=== PATIENT | female | born 1970 | race Caucasian/White ===

== ENCOUNTER → 2016-09-07 | Outpatient (CLI) | payer OTHER ==
[2016-09-07 11:28] LABS: Blood Urea Nitrogen 6 mg/dL (7-17); Non-African American GFR(MDRD) >60 (>60 ml/min/1.73 sqM)
--- NOTE | 2016-09-07 14:02 | MR ---
MR lumbar spine wo/w con Degenerative disc disease, lumber region MultiHance Multiplanar, multiecho imaging of the lumbar spine was obtained without contrast on a 3 Matilde magnet. REFERENCE:None. FINDINGS: There is follicular change within the ovaries. Paraspinal soft tissues are normal. Vertebral body height and alignment are maintained. No fractures are seen. There are 6 lumbar type ve rtebral. For the sake of this examination the sixth verbal be called S1. Cord signal is maintained. The conus ends normally at the level of the mid body of L2. At T12-L1, no abnormality is seen. At L1-2, there is mild capsulitis within the facets. At L2-3, there is mild hypertrophic change and capsulitis within the facets. At L3-4, there is mild disc space loss. The intervertebral foramina are widely maintained. There is n o significant compressive discopathy. There is mild hypertrophic change and capsulitis within the fac ets. At L4-5, there is disc space loss. The intervertebral foramina are well maintained. There is no signi ficant compressive discopathy. There is mild hypertrophic change and capsulitis within the facets. At L5-S1, there is mild hypertrophic change and capsulitis within the facets. IMPRESSION: 1. MILD, DIFFUSE FACET ARTHROPATHY. 2. DEGENERATIVE DISC DISEASE, MOST MARKED AT L3-4 AND L4-5. 3. NO SIGNIFICANT COMPRESSIVE DISCOPATHY OR NEURAL COMPRESSION.
== END | disposition home or self-care (01) ==
LOC: RADMRIMAIN 11:00
PROVIDERS: ATTEND Family Medicine Addiction Medicine
DX: M51.36 Other intervertebral disc degeneration, lumbar region (principal); M46.86 Other specified inflammatory spondylopathies, lumbar region
CPT/HCPCS: 82565; 84520; 72158; A9577

== ENCOUNTER → 2016-09-08 | Outpatient (CLI) | payer OTHER ==
[2016-09-08 13:25] VITALS: BP 141/98; RESP 16; TEMP 98.1
--- NOTE | 2016-09-09 07:07 | P.CONS ---
History of Present Illness - Reason for Consult Consult date: 09/08/16 - History of Present Illness This is the initial consultation visit for this 46 years, old female, with a chronic history of severe low back pain, she reported that the pain started more than 6 months ago and intensity of the pain increased over time, pain is constant and radiating to the lower extremitymostly to the posterior lateral aspect of the lower extremity, he had no history of trauma or heavy lifting, she denies any change in bowel movement or urination, no fever or night sweats, intensity of the pain interfering with her quality of life and in her ability to function and do activities of daily livings, she is able to ambulate, but any movement exacerbates her pain, she tried different pain medication, and all this helped to some degree, and currently she is on [place] 10/325, and is not helping enough, she never had any pain management interventions Past Medical History Past Medical History: GERD/Reflux, Hypertension Additional Past Medical History / Comment(s): BACK PAIN, INSOMNIA. adhd HIATAl HERNIA,SHINGLES 2014, BROCHITIS, LUMBAR DDD/SACRALITIS History of Any Multi-Drug Resistant Organisms: MRSA Year Discovered:: 09/22/2009 MDRO Source:: Unknown source Past Surgical History: Appendectomy, Back Surgery, Section, Cholecystectomy Additional Past Surgical History / Comment(s): CERVICAL FUSION/ PLATE, EGD, RADIO FREQUENCY ABLATION(LUMBAR) Past Anesthesia/Blood Transfusion Reactions: No Reported Reaction Additional Past Anesthesia/Blood Transfusion Reaction / Comm: CLAUSTERPHOBIA Past Psychological History: ADD/ADHD, Anxiety Smoking Status: Current every day smoker Past Alcohol Use History: Rare Additional Past Alcohol Use History / Comment(s): PT STARTED SMOKING AGE 17 OR 18, LESS THAN 1 PPD. She denies any marijuana, medical marijuana, street drug use. LIVES WITH HER SIG OTHER OF 24 YEARS. Past Drug Use History: None Reported - Past Family History Father Family Medical History: Cancer Additional Family Medical History / Comment(s): Father at age 48 from lung cancer. Mother Family Medical History: Congestive Heart Failure (CHF), CVA/TIA Additional Family Medical History / Comment(s): Mother is alive at age 68. She has suffered from a CVA and has chronic back problems. Patient has 2 brothers and 4 sisters with no major medical problems. Medications and Allergies Home Medications Medication Instructions Recorded Confirmed Type Atenolol [Tenormin] 50 mg PO DAILY 02/11/15 09/08/16 History Cholecalciferol [Vitamin D3] 1,000 unit PO DAILY 06/26/16 09/08/16 History Doxepin [SINEquan] 25 mg PO HS 06/26/16 09/08/16 History Omeprazole 20 mg PO DAILY 06/26/16 09/08/16 History Dextroamphetamine/Amphetamine 30 mg PO DAILY 07/16/16 09/08/16 History [Adderall] Venlafaxine HCl [Effexor XR] 75 mg PO DAILY 07/16/16 09/08/16 History Vitamin B Complex 1 cap PO DAILY 07/16/16 09/08/16 History ALPRAZolam [Xanax] 1 mg PO BID PRN 09/08/16 09/08/16 History Allergies Allergy/AdvReac Type Severity Reaction Status Date / Time iodine Allergy Unknown Verified 09/08/16 13:04 ketorolac tromethamine Allergy Rash/Hives Verified 09/08/16 13:04 [From Toradol] shellfish derived Allergy Unknown Verified 09/08/16 13:04 Physical Exam Vitals: Vital Signs Temp Resp BP Pulse Ox 09/08/16 13:12 98.1 F 16 141/98 98 Intake and Output 09/08/16 09/08/16 09/09/16 14:59 22:59 06:59 Other: Weight 70.307 kg Patient Weight 09/09/16 06:59 Weight 70.307 kg Social history : smoker , NO ETOH , NO Illegal drugs use . Review of Systems : 1- Constitutional : no chills , no fever , no night sweats , 2- Ears : no ear discharge , no change in hearing 3-Nose, Mouth ,Throat ; no bleeding gums, no sore throat , no epistaxis , 4-Cardiovascular : Denies chest pain, , no orthopnea , no palpitation 5-Respiratory : Denies cough , no dyspnea , no hemoptysis 6-Gastrointestinal :, no change in bowel habits , no coffee- ground emesis . 7-Genitourinary : No hematuria , no discharge , no incontinence, 8-Musculoskeletal : No gait dysfunction , report low back pain , 9- Neurological : no ataxia , no tremor , no sezure , 10-Psychatric , no suicidal ideation no hallucination 11- Endocrine : no cold intolerence , no polyuria , no polydypsia , 12-Hematologic : no easy bleeding , no easy brusing , 13-Allergic / immunology : no angioedema , no wheezing ,no allergic rhinitis 14-Integumentary : no brttle nails , no change hair / nails , no foot/leg ulcers . Physical Examinations : 1-Constitutional : Cooperative , not in acute distress . 2-HEENT : nech ; supple , no Lymphadenopathy , no Thyromegaly , :eyes , no icterus, no photophobia . ENT : , normal oropharynx , no Thrush 3- Respiratory : Chest clear to auscultations Bilaterally , no wheezing . 4- Cardiovascular : regular rate and rhythem , S1 , S2 , no S3 , no S4. 5- Gastrointestinal: abdomen soft no tenderness , no organomegally . 6- Genitourinary : Defferred . 7-Integumentary : No cellulitis , no ulcers , normal skin turgor , no cyanotic . 8- neurologic : Cranial nerve II to XII intact , no focal neurological deffecit 9-psychatric : alert , oriented X 3 , appropriate affect , intact judgment and insight . 10-Lymphatic : no Lymphadenopathy. 11- musculoskeltal: normal gait , exams of the cervical spine : motor stregnth in the deltoid and biceps, normal right side , normal Left side exams of the Lumber spine : moter stegnth lower extremities , thigh and legs 5/5 Right side , 5/5 Left side deep tendon reflexes : normal Knee Jerk , normal ankle Jerk positive lumber facet Loading Test Range of motion of the lumbar spine Flexion 30 degrees, extension 10 degrees strait leg raising test , positive at degree Fabere test positive RT and positive LT . Results Comments: MRI of the lumbar spine= done 09/07/2016 [facility] showed patient had multilevel lumbar facet arthropathy with capsulitis of the facet joint, and multilevel lumbar degenerative disc disease Assessment and Plan Plan: Assessment and plan = - Chronic low back pain secondary to lumbar degenerative disc disease , lumbar spondylosis with facet arthropathy without myelopathy , -Chronic neck pain secondary to cervical degenerative disc disease , cervical spondylosis with cervical facet arthropathy without myelopathy . -chronic and current use of high-risk medication (Opioids) The patient was counseled about risk of opioid use, psychological risk associated with opioids discussed with the patient, body mass index and exercise. Patient signed the narcotic agreement , and was orally counseled not to overuse , abuse , divert, or sell medications ,and take them as prescribed only , and the patient was counseled against driving and while you are using the narcotic medication also not to use alcohol or any illicit drugs and the patient verbalized understanding that lack of compliance and could result in failure to renew narcotics prescriptions and possible discharge from the clinic - diagnoses, prognosis, and treatment options including but not limited to physical therapy, surgical interventions, interventional therapies and medication management including narcotics and adjuvant medication were discussed with the patient and all questions answered to the patient's satisfaction. -medication refile =1-start patient on Percocet 7.5/325 every 6 hours 2-start patient on Zanaflex 2 mg every 8 hours dispense 90 with 1 refill. 3-start patient on Motrin 600 mg every 8 hours dispense 90 with 1 refill. Patient signed narcotic agreement, and we ordered urine drug screen -procedure= we'll do bilateral medial branch block lumbar area L2 to S1 and a fixed positive then we will proceed with a radiofrequency ablation of the medial Branches Time with Patient: Greater than 30
== END | disposition home or self-care (01) ==
LOC: PNWHC3 12:57
PROVIDERS: ATTEND Specialist
DX: M51.36 Other intervertebral disc degeneration, lumbar region (principal); M47.816 Spondylosis without myelopathy or radiculopathy, lumbar region; M46.96 Unspecified inflammatory spondylopathy, lumbar region; M50.30 Other cervical disc degeneration, unspecified cervical region; M47.812 Spondylosis without myelopathy or radiculopathy, cervical region; M46.92 Unspecified inflammatory spondylopathy, cervical region; M46.06 Spinal enthesopathy, lumbar region; F17.200 Nicotine dependence, unspecified, uncomplicated; Z79.899 Other long term (current) drug therapy; Z79.891 Long term (current) use of opiate analgesic; K21.9 Gastro-esophageal reflux disease without esophagitis; Z88.8 Allergy status to other drugs, medicaments and biological substances; Z91.040 Latex allergy status; F98.8 Other specified behavioral and emotional disorders with onset usually occurring in childhood and adolescence; F90.9 Attention-deficit hyperactivity disorder, unspecified type; F41.9 Anxiety disorder, unspecified; I10 Essential (primary) hypertension; Z86.14 Personal history of Methicillin resistant Staphylococcus aureus infection; Z98.1 Arthrodesis status
CPT/HCPCS: 80307 ×2; G0480 ×4; G0463; 80326; 80346; 80348; 80364; 99211

== ENCOUNTER 2016-09-16 06:35 | Day surgery (SDC) | payer OTHER ==
[2016-09-15 10:27] VITALS: BMI 28.3
[~2016-09-16 06:35] MED LIST: LACTATED RINGERS 1,000 ML IV SCH
[2016-09-16 07:20] VITALS: RESP 18; TEMP 98.1
[2016-09-16] MEDS ORDERED: LACTATED RINGERS 1,000 ML IV ONE (07:34)
[2016-09-16] MEDS ORDERED: TRIAMCINOLONE ACETONIDE 40 MG/ML 1 ML VIAL ONE (07:45)
[2016-09-16] MEDS ORDERED: MIDAZOLAM 2 MG/2 ML VIAL ONE (07:45)
[2016-09-16] MEDS ORDERED: BUPIVACAINE (PF) 0.5% 30 ML VIAL ONE (07:45)
[2016-09-16] MEDS ORDERED: fentaNYL (PF) 50 MCG/ML 2 ML AMP ONE (07:45)
--- NOTE | 2016-09-16 08:15 | P.PCN ---
Date of Procedure: 09/16/16 Procedure(s) Performed: PREOPERATIVE DIAGNOSIS : 1- Lumbar spondylosis with Facet Arthropathy without myelopathy . POSTOPERATIVE DIAGNOSIS: 1- Lumbar spondylosis with Facet Arthropathy without myelopathy . PROCEDURE: Diagnostic bilateral L2-3 , L3 -4 , L4 -5 , and L5-S1 medial branch block under fluoroscopy ANESTHESIA: Local with 1% lidocaine; IV sedation with Versed 4 mg and Fentanyl 200 mcg. EBL: Minimal COMPLICATION: None. IV FLUIDS: 100 mL of normal saline. PROCEDURE INDICATION: Chronic low back pain secondary to Facet arthropathy unresponsive to conservative treatment. PROCEDURE DESCRIPTION: the patient was seen and identified in the preop holding area , risks and benefits and possible complications of the procedure and alternative were discussed with the patient, and the patient agreed to proceed with the procedure and signed the consent IV was started and vital signs monitored during the procedure and fluoroscopy was used to maximize the benefit and accuracy of the needle placement, and sedation was given to decrease patient anxiety, patient was taken to the procedure room and placed in prone position vital signs monitored in the back prepped with chlorhexidine X3 then under strict sterile technique using a right oblique fluoroscopy ,the junction of the transverse process and the superior articulating process of the right L2-3, L3- 4 , L4- 5, and L5-S1 vertebra which corresponding to the fluoroscopy image of the eye of the Fernando dog on the block side for the medial branches and subsequently , after local infiltration of skin and subcu tissuies with lidocaine 1% one mL at each level ,then 22-gauge Quincke-type needles , 4 needle was used , each one of them placed at the junction of the base of the transverse process and the superior articular process at the appropriate level, and the needle was advanced until the periosteum contacted, needle placement confirmed with AP oblique and lateral view and after appropriate needle placement confirmed, and after negative aspiration for heme and CSF and there was no paresthesia 2 mL of Marcaine 0.5% mixed with 40 mg Kenalog , then half mL injected at each level after negative aspiration the needle subsequently removed and the same procedure repeated for the left side at left side at L2-3 , L3-4, L4- 5 and L5- S1 levels. At the end of the procedure and the needles removed and a bandage applied after the skin was cleaned the cleaning solution patient taken to recovery room in stable condition and monitors in the recovery room for 20-30 minutes and discharged home in stable condition after discharge criteria met and patient will follow up with the pain clinic in 2-4 weeks
--- NOTE | 2016-09-16 08:25 | FL ---
FLUOROSCOPY 13 seconds of fluoroscopy time were utilized during facet injections. 4 images document the procedure .
[2016-09-16] MEDS ORDERED: IV FLUID CONTINUATION 1,000 ML IV ONE (08:36)
[2016-09-16 08:43] VITALS: BP 176/95; PULSE 76
== END 2016-09-16 09:08 | disposition home or self-care (01) ==
LOC: ORPAIN 06:35
PROVIDERS: ATTEND Specialist
DX: G89.29 Other chronic pain (principal); M47.816 Spondylosis without myelopathy or radiculopathy, lumbar region; M51.36 Other intervertebral disc degeneration, lumbar region; M46.96 Unspecified inflammatory spondylopathy, lumbar region; F41.9 Anxiety disorder, unspecified; F90.9 Attention-deficit hyperactivity disorder, unspecified type; K21.9 Gastro-esophageal reflux disease without esophagitis; I10 Essential (primary) hypertension; F17.200 Nicotine dependence, unspecified, uncomplicated; Z91.041 Radiographic dye allergy status; Z91.013 Allergy to seafood; Z88.6 Allergy status to analgesic agent; Z79.899 Other long term (current) drug therapy; Z98.1 Arthrodesis status
CPT/HCPCS: 64493; 64494; 64495; 99152; 81025; J2250; J3301; J3010

== ENCOUNTER 2016-09-26 11:01 | Emergency (ER) | payer OTHER ==
[2016-09-26 11:07] VITALS: BP 141/100; PULSE 99; RESP 20; TEMP 98.4
[2016-09-26] MEDS ORDERED: ONDANSETRON 4 MG ODT STARTER PACK 2 TAB BTL PO STA (11:35)
--- NOTE | 2016-09-26 11:36 | ED ---
General Adult HPI - General Chief complaint: Recheck/Abnormal Lab/Rx Stated complaint: MED REFILLS Time Seen by Provider: 09/26/16 11:13 Source: patient, RN notes reviewed Mode of arrival: ambulatory Limitations: no limitations - History of Present Illness Initial comments: Patient is a 46-year-old female who presents emergency room today with chief complaint of possible benzo withdrawal. She does admit that she takes Xanax daily and has recently started on Valium as a muscle relaxer. [place] and is out of these medications. She states she has had symptoms of feeling nauseated with some vomiting yesterday. States having a difficult time keeping things down. 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 Patient states she does have the other medications that she can get and she didn't get her pain medicine through her family doctor in 2 days. She states she is hoping to is to get a prescription for her Valium to help the symptoms. Patient denies any other complaint associated symptoms. Patient denies any recent fever, chills, shortness of breath, chest pain, back pain, vomiting, numbness or tingling, dysuria or hematuria, constipation or diarrhea, headaches or visual changes, or any other complaints. - Related Data Home Medications Medication Instructions Recorded Confirmed Atenolol [Tenormin] 50 mg PO DAILY 02/11/15 09/26/16 Cholecalciferol [Vitamin D3] 1,000 unit PO DAILY 06/26/16 09/26/16 Doxepin [SINEquan] 25 mg PO HS 06/26/16 09/26/16 Omeprazole 20 mg PO DAILY 06/26/16 09/26/16 Dextroamphetamine/Amphetamine 30 mg PO DAILY 07/16/16 09/26/16 [Adderall] Venlafaxine HCl [Effexor XR] 75 mg PO DAILY 07/16/16 09/26/16 Vitamin B Complex 1 cap PO DAILY 07/16/16 09/26/16 ALPRAZolam [Xanax] 1 mg PO BID PRN 09/08/16 09/26/16 Previous Rx's Medication Instructions Recorded Ibuprofen [Motrin] 600 mg PO Q6HR PRN #1 tab 09/08/16 oxyCODONE HCL/ACETAMINOPHEN 1 tab PO Q6HR PRN #120 tab 09/08/16 [Percocet 7.5-325 mg] tiZANidine HCL [Zanaflex] 2 mg PO Q8HR PRN #90 capsule 09/08/16 Diazepam [Valium] 5 mg PO QID #15 tab 09/26/16 Ondansetron Odt [Zofran ODT] 4 mg PO Q8HR PRN #20 tab 09/26/16 Allergies Allergy/AdvReac Type Severity Reaction Status Date / Time ketorolac [From Toradol] Allergy Rash/Hives Verified 09/26/16 11:22 shellfish derived Allergy dyspnea,swe Verified 09/26/16 11:22 lling Review of Systems ROS Statement: Those systems with pertinent positive or pertinent negative responses have been documented in the HPI. ROS Other: All systems not noted in ROS Statement are negative. Past Medical History Past Medical History: GERD/Reflux, Hypertension Additional Past Medical History / Comment(s): BACK PAIN, INSOMNIA. HIATAl HERNIA,SHINGLES 2014, BROCHITIS, LUMBAR DDD/SACRALITIS History of Any Multi-Drug Resistant Organisms: MRSA Date of last positivie culture/infection: 09/22/2009 MDRO Source:: Unknown source Past Surgical History: Appendectomy, Back Surgery, Section, Cholecystectomy Additional Past Surgical History / Comment(s): CERVICAL FUSION/ PLATE, EGD, RADIO FREQUENCY ABLATION(LUMBAR) Past Anesthesia/Blood Transfusion Reactions: No Reported Reaction Additional Past Anesthesia/Blood Transfusion Reaction / Comment(s): CLAUSTROPHOBIA Past Psychological History: ADD/ADHD, Anxiety Smoking Status: Current every day smoker Past Alcohol Use History: None Reported Additional Past Alcohol Use History / Comment(s): PT STARTED SMOKING AGE 17 OR 18, LESS THAN 1 PPD. She denies any marijuana, medical marijuana, street drug use. LIVES WITH HER SIG OTHER OF 24 YEARS. Past Drug Use History: None Reported - Past Family History Father Family Medical History: Cancer Additional Family Medical History / Comment(s): Father at age 48 from lung cancer. Mother Family Medical History: Congestive Heart Failure (CHF), CVA/TIA Additional Family Medical History / Comment(s): Mother is alive at age 68. She has suffered from a CVA and has chronic back problems. Patient has 2 brothers and 4 sisters with no major medical problems. General Exam - General Exam Comments Initial Comments: General: The patient is awake and alert, in no distress, and does not appear acutely ill. Eye: Pupils are equal, round and reactive to light, extra-ocular movements are intact. No nystagmus. There is normal conjunctiva bilaterally. No signs of icterus. Ears, nose, mouth and throat: There are moist mucous membranes and no oral lesions. Neck: The neck is supple, there is no tenderness or JVD. Cardiovascular: There is a regular rate and rhythm. No murmur, rub or gallop is appreciated. Respiratory: Lungs are clear to auscultation, respirations are non-labored, breath sounds are equal. No wheezes, stridor, rales, or rhonchi. Gastrointestinal: Soft, non-distended, non-tender abdomen without masses or organomegaly noted. There is no rebound or guarding present. No CVA tenderness. Bowel sounds are unremarkable. Musculoskeletal: Normal ROM, no tenderness. Strength 5/5. Sensation intact. Pulses equal bilaterally 2+. Neurological: A&O x 3. CN II-XII intact, There are no obvious motor or sensory deficits. Coordination appears grossly intact. Speech is normal. Skin: Skin is warm and dry and no rashes or lesions are noted. Psychiatric: Cooperative, appropriate mood & affect, normal judgment. Limitations: no limitations Course Vital Signs 09/26/16 11:02 Temperature 98.4 F Pulse Rate 99 Respiratory 20 Rate Blood Pressure 141/100 O2 Sat by Pulse 97 Oximetry Medical Decision Making - Medical Decision Making Patient will be given nausea medication here in the emergency room. Patient will be discharged home short prescription of Valium advised follow-up the family doctor. Disposition Clinical Impression: Nausea & vomiting Disposition: HOME SELF-CARE Condition: Good Instructions: Acute Nausea and Vomiting (ED) Additional Instructions: Please use medication as discussed. Please follow-up with family doctor in the next 2 days of symptoms have not improved. Please return to emergency room if the symptoms increase or worsen or for any other concerns. Prescriptions: Diazepam [Valium] 5 mg PO QID #15 tab Ondansetron Odt [Zofran ODT] 4 mg PO Q8HR PRN #20 tab PRN Reason: Nausea Time of Disposition: 11:35
== END 2016-09-26 11:54 | disposition home or self-care (01) ==
LOC: EC 11:01
DX: R11.2 Nausea with vomiting, unspecified (principal); I10 Essential (primary) hypertension; K21.9 Gastro-esophageal reflux disease without esophagitis; F90.9 Attention-deficit hyperactivity disorder, unspecified type; F41.9 Anxiety disorder, unspecified; F17.200 Nicotine dependence, unspecified, uncomplicated; Z79.899 Other long term (current) drug therapy; Z88.6 Allergy status to analgesic agent; Z91.013 Allergy to seafood; Z87.19 Personal history of other diseases of the digestive system; Z90.49 Acquired absence of other specified parts of digestive tract
CPT/HCPCS: 99281; S0119

== ENCOUNTER 2016-10-16 19:05 | Observation (INO) | payer OTHER ==
[2016-10-16] MEDS ORDERED: LORazepam 2 MG/ML SYRINGE IV STA (19:52)
[2016-10-16 20:06] LABS: Basophils # (A) 0.1 k/uL (0-0.2); Basophils % (A) 1 %; CH 31.3; CHCM 34.1; Eosinophils # (A) 0.1 k/uL (0-0.7); Eosinophils % (A) 1 %; HCT 45.1 % (34.0-46.0); HDW 2.46; HGB 15.2 gm/dL (11.4-16.0); Luc # (Auto) 0.41; Luc % (Auto) 3; Lymphocytes # (A) 2.3 k/uL (1.0-4.8); Lymphocytes % (A) 19 %; MCH 31.1 pg (25.0-35.0); MCHC 33.8 g/dL (31.0-37.0); Monocytes # (A) 0.7 k/uL (0-1.0); Monocytes % (A) 6 %; Neutrophils # (A) 8.8 k/uL (1.3-7.7); Neutrophils % (A) 71 %; RDW 13.7 % (11.5-15.5); WBC 12.4 k/uL (3.8-10.6); WBC (Perox) 12.24
[2016-10-16] MEDS ORDERED: ONDANSETRON 4 MG/2 ML VIAL IVP STA (20:12)
--- NOTE | 2016-10-16 20:12 | ED ---
Chest Pain HPI - General Chief Complaint: Chest Pain Stated Complaint: vomiting Time Seen by Provider: 10/16/16 19:24 Source: patient Mode of arrival: ambulatory Limitations: no limitations - History of Present Illness MD Complaint: chest pain -: hour(s) Onset: during rest Pain Location: substernal Pain Radiation: none Severity: moderate Quality: aching, other (Burning) Consistency: constant Improves With: nothing Worsens With: nothing Anginal Symptoms: nausea, vomiting Treatments Prior to Arrival: none - Related Data Home Medications Medication Instructions Recorded Confirmed Atenolol [Tenormin] 50 mg PO DAILY 02/11/15 10/16/16 Cholecalciferol [Vitamin D3] 1,000 unit PO DAILY 06/26/16 10/16/16 Doxepin [SINEquan] 25 mg PO HS 06/26/16 10/16/16 Omeprazole 20 mg PO BID 06/26/16 10/16/16 Dextroamphetamine/Amphetamine 30 mg PO DAILY 07/16/16 10/16/16 [Adderall] Venlafaxine HCl [Effexor XR] 75 mg PO DAILY 07/16/16 10/16/16 Vitamin B Complex 1 cap PO DAILY 07/16/16 10/16/16 ALPRAZolam [Xanax] 1 mg PO BID PRN 09/08/16 10/16/16 Diazepam [Valium] 5 mg PO BID 10/16/16 10/16/16 Gabapentin [Neurontin] 300 mg PO TID 10/16/16 10/16/16 Previous Rx's Medication Instructions Recorded Ibuprofen [Motrin] 600 mg PO Q6HR PRN #1 tab 09/08/16 oxyCODONE HCL/ACETAMINOPHEN 1 tab PO Q6HR PRN #120 tab 09/08/16 [Percocet 7.5-325 mg] tiZANidine HCL [Zanaflex] 2 mg PO Q8HR PRN #90 capsule 09/08/16 Ondansetron Odt [Zofran ODT] 4 mg PO Q8HR PRN #20 tab 09/26/16 Allergies Allergy/AdvReac Type Severity Reaction Status Date / Time ketorolac [From Toradol] Allergy Rash/Hives Verified 10/16/16 19:38 shellfish derived Allergy dyspnea,swe Verified 10/16/16 19:38 lling tramadol [From Ultram] Allergy Rash/Hives Verified 10/16/16 19:38 Review of Systems ROS Statement: Those systems with pertinent positive or pertinent negative responses have been documented in the HPI. ROS Other: All systems not noted in ROS Statement are negative. Constitutional: Denies: fever, chills Respiratory: Denies: cough, dyspnea, hemoptysis Cardiovascular: Reports: chest pain. Denies: palpitations, orthopnea, edema, syncope Gastrointestinal: Reports: nausea, vomiting. Denies: abdominal pain, diarrhea Genitourinary: Denies: dysuria, hematuria Musculoskeletal: Denies: back pain Skin: Denies: rash Neurological: Denies: headache, weakness, numbness Psychiatric: Reports: anxiety EKG Findings - EKG Results: EKG: interpreted by ERMD, sinus rhythm, normal axis, normal ST/T EKG shows: tachycardia (Rate 109 bpm) - ME, Pacemaker, Normal: Myocardial infarction: inferior ME (old age indeterminate) (There is Q wave in lead 3 and aVF suggestive of possible old inferior ME) Past Medical History Past Medical History: GERD/Reflux, Hypertension Additional Past Medical History / Comment(s): BACK PAIN, INSOMNIA. HIATAl HERNIA,SHINGLES 2014, BROCHITIS, LUMBAR DDD/SACRALITIS History of Any Multi-Drug Resistant Organisms: MRSA Date of last positivie culture/infection: 09/22/2009 MDRO Source:: Unknown source Past Surgical History: Appendectomy, Back Surgery, Section, Cholecystectomy Additional Past Surgical History / Comment(s): CERVICAL FUSION/ PLATE, EGD, RADIO FREQUENCY ABLATION(LUMBAR) Past Anesthesia/Blood Transfusion Reactions: No Reported Reaction Additional Past Anesthesia/Blood Transfusion Reaction / Comment(s): CLAUSTROPHOBIA Past Psychological History: ADD/ADHD, Anxiety Smoking Status: Current every day smoker Past Alcohol Use History: None Reported Additional Past Alcohol Use History / Comment(s): PT STARTED SMOKING AGE 17 OR 18, LESS THAN 1 PPD. She denies any marijuana, medical marijuana, street drug use. LIVES WITH HER SIG OTHER OF 24 YEARS. Past Drug Use History: None Reported - Past Family History Father Family Medical History: Cancer Additional Family Medical History / Comment(s): Father at age 48 from lung cancer. Mother Family Medical History: Congestive Heart Failure (CHF), CVA/TIA Additional Family Medical History / Comment(s): Mother is alive at age 68. She has suffered from a CVA and has chronic back problems. Patient has 2 brothers and 4 sisters with no major medical problems. General Exam Limitations: no limitations General appearance: alert, anxious Head exam: Present: atraumatic, normocephalic Eye exam: Present: normal appearance ENT exam: Present: normal oropharynx Neck exam: Present: normal inspection Respiratory exam: Present: normal lung sounds bilaterally, chest wall tenderness. Absent: respiratory distress, wheezes, rales, rhonchi, stridor, accessory muscle use, decreased breath sounds Cardiovascular Exam: Present: normal rhythm, tachycardia, normal heart sounds. Absent: systolic murmur, diastolic murmur, rubs, gallop GI/Abdominal exam: Present: soft. Absent: distended, tenderness, guarding, rebound, mass, pulsatile mass, hernia Extremities exam: Present: normal inspection, normal capillary refill. Absent: pedal edema, calf tenderness Back exam: Present: normal inspection. Absent: CVA tenderness (R), CVA tenderness (L) Neurological exam: Present: alert Psychiatric exam: Present: anxious Skin exam: Present: warm, dry, intact, normal color. Absent: rash, cyanosis, diaphoretic, erythema, petechiae, pallor, mottled Course Vital Signs 10/16/16 10/16/16 10/16/16 19:16 20:12 20:53 Temperature 98.9 F Pulse Rate 117 H 106 H Pulse Rate [ 99 Right Radial] Respiratory 26 H 22 Rate Blood Pressure 132/77 131/98 Blood Pressure [Right Arm] O2 Sat by Pulse 99 98 Oximetry 10/16/16 10/16/16 10/16/16 21:22 21:58 22:59 Temperature 98.5 F Pulse Rate 90 93 84 Pulse Rate [ Right Radial] Respiratory 18 18 18 Rate Blood Pressure 133/93 147/90 142/68 Blood Pressure [Right Arm] O2 Sat by Pulse 96 97 96 Oximetry 10/16/16 23:15 Temperature 98.4 F Pulse Rate Pulse Rate [ 81 Right Radial] Respiratory 16 Rate Blood Pressure Blood Pressure 125/82 [Right Arm] O2 Sat by Pulse 96 Oximetry Disposition Clinical Impression: Chest pain Disposition: ADMITTED IP TO THIS HOSP Condition: Fair
[2016-10-16 20:23] LABS: ALT 26 U/L (9-52); AST 19 U/L (14-36); Alkaline Phosphatase 117 U/L (38-126); Amylase 52 U/L (30-110); Anion Gap 15 mmol/L; Blood Urea Nitrogen 13 mg/dL (7-17); Carbon Dioxide 25 mmol/L (22-30); Chloride 100 mmol/L (98-107); Glucose 95 mg/dL (74-99); Magnesium 1.7 mg/dL (1.6-2.3); Non-African American GFR(MDRD) >60 (>60 ml/min/1.73 sqM); Potassium 3.8 mmol/L (3.5-5.1); Sodium 140 mmol/L (137-145); Total Bilirubin 0.5 mg/dL (0.2-1.3); Total Protein 7.7 g/dL (6.3-8.2)
[2016-10-16 20:24] LABS: Creatine Kinase 33 U/L (30-135); Partial Thromboplastin Time 24.8 sec (22.0-30.0); Prothrombin Time 10.1 sec (9.0-12.0)
[2016-10-16 20:37] LABS: Creatine Kinase MB 0.7 ng/mL (0.0-2.4); Troponin I <0.012 ng/mL (0.000-0.034)
--- NOTE | 2016-10-16 20:54 | XR ---
EXAMINATION TYPE: XR chest 1V portable DATE OF EXAM: 10/16/2016 8:26 PM COMPARISON: June 26, 2016 HISTORY: Chest pain TECHNIQUE: Single frontal view of the chest is obtained. FINDINGS: Heart and mediastinum are normal. Lungs are clear. There are chest leads. Diaphragm is nor mal. Bony thorax is intact. IMPRESSION: Normal chest. No change.
[2016-10-16] MEDS ORDERED: MAG HYDROX/AL HYDROX/SIMETH 30 ML, HYOSCYAMINE ELIXIR 10 ML, CIMETIDINE HCL 300 MG, LID... PO STA ×4 (21:17)
[2016-10-16] MEDS ORDERED: NITROGLYCERIN SL TABS 0.4 MG TAB SUBLINGUAL STA (21:50)
[2016-10-16] MEDS ORDERED: MORPHINE SULFATE 4 MG/ML SYRINGE IV STA (21:50)
[2016-10-16] MEDS ORDERED: NITROGLYCERIN SL TABS 0.4 MG TAB SUBLINGUAL PRN (22:24)
[2016-10-16] MEDS ORDERED: ONDANSETRON ODT 4 MG TAB PO PRN (22:27)
[2016-10-16] MEDS ORDERED: oxyCODONE-APAP 7.5-325MG 1 EACH TAB PO PRN (22:27)
[2016-10-16] MEDS ORDERED: SODIUM CHLORIDE 0.9% 1,000 ML IV SCH (22:30)
[2016-10-16 23:33] VITALS: BMI 26.8
[2016-10-16] MEDS: DIAZEPAM 5 MG TAB PO SCH (23:50)
[2016-10-17] MEDS: HEPARIN SODIUM,PORCINE 5,000 UNIT/ML 1 ML VIAL SQ SCH ×2 (00:26→10:49)
[2016-10-17] MEDS: LORazepam 2 MG/ML SYRINGE IV PRN ×2 (01:03→12:23)
[2016-10-17] MEDS: MORPHINE SULFATE 2 MG/ML SYRINGE IVP PRN ×2 (01:03→06:32)
[2016-10-17 02:51] LABS: Creatine Kinase 25 U/L (30-135)
[2016-10-17 03:03] LABS: Creatine Kinase MB 0.4 ng/mL (0.0-2.4); Troponin I <0.012 ng/mL (0.000-0.034)
[2016-10-17] MEDS ORDERED: PANTOPRAZOLE 40 MG TABLET PO SCH (07:30)
[2016-10-17 07:33] LABS: Cholesterol 213 mg/dL (<200); HDL Cholesterol 49 mg/dL (40-60); Triglycerides 164 mg/dL (<150)
[2016-10-17 07:50] LABS: Creatine Kinase 30 U/L (30-135)
[2016-10-17 08:04] LABS: Creatine Kinase MB 0.5 ng/mL (0.0-2.4); Troponin I <0.012 ng/mL (0.000-0.034)
[2016-10-17] MEDS ORDERED: VENLAFAXINE HCL ER 75 MG CAP PO SCH (09:00)
[2016-10-17] MEDS ORDERED: CHOLECALCIFEROL 1,000 UNIT TAB PO SCH (09:00)
[2016-10-17] MEDS ORDERED: GABAPENTIN 300 MG CAP PO SCH (09:00)
[2016-10-17] MEDS ORDERED: METOPROLOL TARTRATE 25 MG TAB PO SCH (09:00)
[2016-10-17] MEDS ORDERED: DIAZEPAM 5 MG TAB PO SCH (09:00)
[2016-10-17] MEDS ORDERED: ATENOLOL 50 MG TAB PO SCH (09:00)
[2016-10-17] MEDS ORDERED: ASPIRIN 325 MG TAB PO SCH (10:30)
[2016-10-17] MEDS: DIAZEPAM 5 MG TAB PO SCH (10:48)
[2016-10-17 12:08] VITALS: BP 118/79; PULSE 87; RESP 18; TEMP 98.6
--- NOTE | 2016-10-17 12:58 | CONS ---
Ms. Winston is a 46-year-old female who is seen for the evaluation of chest pain. Patient gives a history that she has been nauseated for the last 2 to 3 days with some vomiting and subsequently she started having some substernal chest pain. The pain was radiating to some back. It was a burning kind of pain. Patient has a history of hypertension. She denies any history of exertional chest discomfort. There is no previous history of myocardial infarction. There is no history of diabetes. Patient has a past history of cholecystectomy and hiatal hernia. Patient was admitted in June with similar symptoms. EKGs and cardiac enzymes as well as echocardiogram were normal. Patient was supposed to have a stress test as an outpatient; however, this has not been done. Home medications include: 1. Tenormin. 2. Sinequan. 3. Omeprazole. 4. Adderall. 5. Effexor. 6. Xanax. 7. Valium and 8. Neurontin. 9. Zanaflex and 10. Zofran. Review of systems is otherwise unremarkable. Past medical history includes a history of back pain, hiatal hernia, history of back surgery, section, cholecystectomy, appendectomy, cervical fusion. SMOKING HISTORY: Patient is currently every day smoker. Physical examination at present reveals a 46-year-old female who does not appear to be in any acute distress. Patient's blood pressure is 132/82 mmHg, oxygen saturation is 93%. Head/ENT is negative. Neck is supple. There is no increase in jugular venous pressure. Both the carotid pulses are felt. There is no bruit. Chest is symmetrical. HEART: The PMI is not felt. First and second heart sounds are normal. There is no evidence of any murmur. Lungs are clinically clear to auscultation and percussion. Abdomen is soft. Liver and spleen are not enlarged. Bowel sounds are heard. EXTREMITIES: Peripheral pulsations are 2+. EKG shows normal sinus rhythm without any acute ischemic changes. Patient's cardiac enzymes are normal. FINAL IMPRESSION: 1. This patient's history is suggestive for atypical angina. EKGs and cardiac enzymes are normal. Patient's LDL level is 131. 2. History of hypertension, which is under fair control. RECOMMENDATIONS: As the patient's echocardiogram was normal during previous admission, patient can be discharged home and she will be followed up as an outpatient for the stress test.
--- NOTE | 2016-10-17 16:21 | HP ---
DATE OF ADMISSION: 10/16/2016 CHIEF COMPLAINT: Chest pain. HISTORY OF PRESENT ILLNESS: Ms. Winston is a 46-year-old female with a known history of chronic back pain and supposed to get back surgery soon, and anxiety. She came to the hospital with complaints of chest pain and unable to keep down any food and has been having nausea and vomiting for the past 2 to 3 days. Chest pain mainly in the substernal region, radiates to the back, burning type. No associated headache, dizziness or lightheadedness. Patient has been having chest pain on and off for the past 3 days. Patient does not have any history of coronary artery disease in the past. No history of myocardial infarction. Denied any exertional dyspnea. No orthopnea, no PND. Patient does have a history of GERD and takes Prilosec 20 mg b.i.d. Also has been taking muscle relaxant and pain medications for her back pain. She is anxious as well. No recent illnesses. No fever. No chills. No sick contacts at home. REVIEW OF SYSTEMS: CONSTITUTIONAL: No fever. No chills. RESPIRATORY: No cough or sputum production. CARDIOVASCULAR: No chest pain or shortness of breath. ABDOMEN: No nausea, vomiting or abdominal pain. GENITOURINARY: Negative. ENDOCRINE: Negative. PSYCHIATRY: Negative. SKIN: Negative. All other fourteen-point review of systems negative as above. PAST MEDICAL HISTORY: 1. GERD. 2. Hypertension. 3. Chronic back pain. 4. Insomnia. 5. Hiatal hernia. 6. History of shingles. 7. Lumbar disk degenerative disease and sacroiliitis. 8. History of methicillin-resistant Staphylococcus aureus. 9. Claustrophobia. PAST SURGICAL HISTORY: Appendectomy, back surgery, , cholecystectomy, cervical fusion surgery with plate, EGD, radiofrequency ablation lumbar. PSYCHOSOCIAL HISTORY: ADD/ADHD and anxiety. SOCIAL HISTORY: Currently an everyday smoker, started smoking at age 17, about a pack a day. Denied any marijuana. FAMILY HISTORY: Father had lung cancer, at age 48. Mother had congestive heart failure, CVA/TIA. Home medication include: 1. Atenolol. 2. Vitamin D3. 3. Doxepin. 4. Omeprazole. 5. Adderall. 6. Effexor. 7. Vitamin B complex. 8. Xanax. 9. Valium. 10. Neurontin. 11. Motrin. 12. Percocet. 13. Zanaflex. 14. Zofran. ALLERGIES: KETOROLAC, SHELLFISH, TRAMADOL. PHYSICAL EXAMINATION: A 46-year-old female, lying in bed. Awake, alert, oriented in no apparent distress. VITALS: Blood pressure is 125/82, pulse is 81, respirations 16, afebrile, pulse ox 94% on room air. HEENT: Atraumatic, normocephalic. NECK: Supple. No JVD. CVS: S1, S2 heard. No murmurs, no gallop. LUNGS: Bilateral air entry is present. No wheezing. No crackles. ABDOMEN: Soft, nontender. Bowel sounds present. ARCH SUPPORT TECHNICIAN: Awake, alert, oriented x3. No focal deficits. EXTREMITIES: No edema. Pulses palpable bilaterally. No clubbing or cyanosis. PSYCHIATRIC: Cooperative. Anxious. LABORATORY DATA: WBC 12.4, hemoglobin 15.2, platelets 371, INR 1.0. D-dimer is 0.3, sodium 140, potassium 3.8, chloride 100, bicarb 25. BUN 13, creatinine 0.77. Blood sugar is 95, magnesium 1.7. Troponin less than 0.012. LDL 131. EKG, sinus tachycardia. Chest x-ray, normal chest. IMPRESSION: 1. Chest pain, most likely gastroesophageal reflux disease related symptoms. Rule out acute coronary syndrome. 2. Nausea and vomiting. 3. Hyperlipidemia with LDL of 131. 4. Chronic back pain. 5. History of gastroesophageal reflux disease. 6. Lumbar degenerative disk disease and sacroiliitis. 7. Insomnia. 8. Hypertension. 9. Hiatal hernia. 10. Anxiety. DISCUSSION AND PLAN: A 46-year-old female admitted to the hospital with chest pain, most likely GERD-related, and nausea and vomiting. The patient will be continued on Prilosec 20 mg b.i.d. Continue with telemetry monitoring. Serial troponins are negative. Will continue the current management and follow up closely. Further recommendations based on the clinical course and symptomatic treatment for nausea and vomiting. Advance diet as tolerated.
[2016-10-17] MEDS ORDERED: DOXEPIN 25 MG CAP PO SCH (21:00)
--- NOTE | 2016-10-18 12:26 | DS ---
DATE OF ADMISSION: 10/16/2016 DATE OF DISCHARGE: 10/17/2016 DISCHARGE DIAGNOSES: 1. Chest pain, most likely gastroesophageal reflux disease related with possible gastritis, nonhemorrhagic. 2. Rule out acute coronary artery syndrome and cardiology recommended outpatient stress test. 3. Gastroesophageal reflux disease. 4. Hiatal hernia. 5. Chronic back pain on multiple pain medications. 6. Insomnia. 7. Anxiety. 8. Lumbar disc degenerative disease and sacroiliitis. 9. History of methicillin-resistant Staphylococcus aureus. 10. Hypertension. 11. Deep venous thrombosis prophylaxis. HOSPITAL COURSE: Ms. Winston is a 46-year-old female admitted to the hospital with complaints of chest pain and nausea, vomiting for the past 3 days, unable to keep down food. Patient was treated symptomatically for nausea, vomiting and pain management and serial EKGs and troponins are negative. Cardiology recommended outpatient stress test; otherwise, patient markedly improved and tolerating diet. Patient will be discharged to home in stable condition. Activity as tolerated. Heart-healthy diet. DISCHARGE PHYSICAL EXAM: A 46-year-old female, lying in bed, comfortable, awake, alert, oriented x3. Patient in no apparent distress. VITALS: Blood pressure is 118/70, pulse 87, respirations 18, temperature afebrile, pulse ox is 98% on room air. Laboratory data reviewed. Discharge physical examination done. Discharge medications include: 1. Tenormin 50 mg p.o. daily. 2. Vitamin D3 one thousand units p.o. daily. 3. Doxepin 25 mg p.o. at bedtime. 4. Omeprazole 20 mg p.o. b.i.d. 5. Adderall 30 mg p.o. daily. 6. Effexor XR 75 mg p.o. daily. 7. Vitamin B complex 1 capsule p.o. daily. 8. Xanax 1 mg p.o. b.i.d. p.r.n. for anxiety. 9. Ibuprofen 600 mg p.o. q.6 hourly p.r.n. for pain. 10. Percocet 7.5 one tablet p.o. q.6 hourly p.r.n. for pain. 11. Zanaflex 2 mg p.o. q.8 hourly p.r.n. for muscle spasms. 12. Zofran 4 mg p.o. q.8 hourly p.r.n. for nausea and vomiting. 13. Valium 5 mg p.o. b.i.d. p.r.n. for insomnia. 14. Gabapentin 300 mg p.o. t.i.d. 15. Valium 5 mg p.o. b.i.d. Patient will be discharged home in stable condition. Activity as tolerated. Heart-healthy diet. Followed with Dr. Pruett in 2 weeks and follow with primary care physician in 1 to 2 days.
== END 2016-10-17 15:03 | disposition home or self-care (01) ==
LOC: EC 19:05 → 3OBS 22:24
PROVIDERS: ADMIT Internal Medicine; ATTEND Internal Medicine
DX: R07.89 Other chest pain (principal); R11.2 Nausea with vomiting, unspecified; E78.5 Hyperlipidemia, unspecified; M54.9 Dorsalgia, unspecified; G89.29 Other chronic pain; K21.9 Gastro-esophageal reflux disease without esophagitis; M51.36 Other intervertebral disc degeneration, lumbar region; M46.1 Sacroiliitis, not elsewhere classified; G47.00 Insomnia, unspecified; I10 Essential (primary) hypertension; K44.9 Diaphragmatic hernia without obstruction or gangrene; F41.9 Anxiety disorder, unspecified; F90.9 Attention-deficit hyperactivity disorder, unspecified type; F17.200 Nicotine dependence, unspecified, uncomplicated; Z79.899 Other long term (current) drug therapy; Z88.8 Allergy status to other drugs, medicaments and biological substances; Z88.5 Allergy status to narcotic agent; Z91.013 Allergy to seafood; Z86.14 Personal history of Methicillin resistant Staphylococcus aureus infection; Z80.1 Family history of malignant neoplasm of trachea, bronchus and lung; Z82.49 Family history of ischemic heart disease and other diseases of the circulatory system; Z82.3 Family history of stroke; Z90.49 Acquired absence of other specified parts of digestive tract
CPT/HCPCS: 99285; 96374; 96375 ×2; 36415; 93005; 85379; 80061; 80053; 82150; 82550 ×2; 82553 ×2; 83690; 83735; 84484 ×2; 85025; 85610; 85730; 71010; G0378 ×2; J2060 ×2; J2270 ×2; J1644; J2405; 96372; 96376

== ENCOUNTER → 2016-11-03 | Outpatient (CLI) | payer OTHER ==
[2016-11-03 14:06] VITALS: BP 153/107; PULSE 117; RESP 16; TEMP 97.7
--- NOTE | 2016-11-04 10:32 | P.CONS ---
History of Present Illness - Reason for Consult Consult date: 11/03/16 - History of Present Illness This is follow-up visit for this patient with a history of severe and chronic low back pain secondary to lumbar degenerative disc diseases , lumbar spondylosis with facet arthropathy, we have done interventional pain management injection,, diagnostic medial branch block ,x1 and she gets more than 50% improvement of her low back pain , she is scheduled to have another diagnostic medial branch block in the next few weeks ,and is currently on pain medications Percocet 7.5/325 every 6 hours, Neurontin 300 mg every 8 hours, he denies any side effect of the medication she denies any fever or night sweats denies any change in the bowel movement or urination and she reported the current pain medication and being out of control her pain, denies any suicidal ideation Past Medical History Past Medical History: GERD/Reflux, Hypertension Additional Past Medical History / Comment(s): BACK PAIN, INSOMNIA. HIATAl HERNIA,SHINGLES 2014, BROCHITIS, LUMBAR DDD/SACRALITIS History of Any Multi-Drug Resistant Organisms: MRSA Year Discovered:: 09/22/2009 MDRO Source:: Unknown source Past Surgical History: Appendectomy, Back Surgery, Section, Cholecystectomy Additional Past Surgical History / Comment(s): CERVICAL FUSION/ PLATE, EGD, RADIO FREQUENCY ABLATION(LUMBAR) Past Anesthesia/Blood Transfusion Reactions: No Reported Reaction Additional Past Anesthesia/Blood Transfusion Reaction / Comm: CLAUSTROPHOBIA Past Psychological History: ADD/ADHD, Anxiety Smoking Status: Current every day smoker Past Alcohol Use History: None Reported Additional Past Alcohol Use History / Comment(s): PT STARTED SMOKING AGE 17 OR 18, LESS THAN 1 PPD. She denies any marijuana, medical marijuana, street drug use. LIVES WITH HER SIG OTHER OF 24 YEARS. Past Drug Use History: None Reported - Past Family History Father Family Medical History: Cancer Additional Family Medical History / Comment(s): Father at age 48 from lung cancer. Mother Family Medical History: Congestive Heart Failure (CHF), CVA/TIA Additional Family Medical History / Comment(s): Mother is alive at age 68. She has suffered from a CVA and has chronic back problems. Patient has 2 brothers and 4 sisters with no major medical problems. Medications and Allergies Home Medications Medication Instructions Recorded Confirmed Type Atenolol [Tenormin] 50 mg PO DAILY 02/11/15 11/03/16 History Cholecalciferol [Vitamin D3] 1,000 unit PO DAILY 06/26/16 11/03/16 History Doxepin [SINEquan] 25 mg PO HS 06/26/16 11/03/16 History Omeprazole 20 mg PO BID 06/26/16 11/03/16 History Dextroamphetamine/Amphetamine 30 mg PO DAILY 07/16/16 11/03/16 History [Adderall] Venlafaxine HCl [Effexor XR] 75 mg PO DAILY 07/16/16 11/03/16 History Vitamin B Complex 1 cap PO DAILY 07/16/16 11/03/16 History ALPRAZolam [Xanax] 1 mg PO BID PRN 09/08/16 11/03/16 History Allergies Allergy/AdvReac Type Severity Reaction Status Date / Time ketorolac [From Toradol] Allergy Rash/Hives Verified 11/03/16 13:57 shellfish derived Allergy dyspnea,swe Verified 11/03/16 13:57 lling tramadol [From Ultram] Allergy Rash/Hives Verified 11/03/16 13:57 Physical Exam Vitals: Vital Signs Temp Pulse Resp BP Pulse Ox 11/03/16 13:59 97.7 F 117 H 16 153/107 98 Physical Examinations : 1-Constitutiona : Cooperative , not in acute distress . 2-HEENT : nech ; supple , no Lymphadenopathy , no Thyromegaly , normal thyroid size . eyes : no ptosis , no icterus, no photophobia . ENT : normal of hearing , normal oropharynx , no Thrush . 3- Respiratory : Chest clear to auscultations Bilaterally , no wheezing , no Rhonchi . 4- Cardiovascular : regular rate and rhythem , S1 , S2 , no S3 , no S4. 5- Gastrointestinal : abdomen soft no tenderness , bowel sounds positive all four quadrents , no organomegally . 6- Genitourinary : Defferred . 7- neurologic : Cranial nerve II to XII intact , no focal neurological deffecit . 8-psychatric : alert , oriented X 3 , appropriate affect , intact judgment and insight . 9-Lymphatic : no Lymphadenopathy . 10- musculoskeltal : exams of the Lumber spine = normal moter stegnth lower extremities ,thigh and legs .5/5 deep tendon reflexes : normal Knee Jerk , normal ankle Jerk . positive lumber facet Loading Test strait leg raising test positive at 30 degree , RT ,LT , Fabere test positive RT and positive LT . Assessment and Plan Plan: Assessment and plan = - Chronic low back pain secondary to lumbar degenerative disc disease , lumbar spondylosis with facet arthropathy without myelopathy , status post diagnostic medial branch block with a good result and she is scheduled to have another diagnostic medial branch block in the next few weeks -chronic and current use of high-risk medication (Opioids). -Patient denies any side effect of the medication, and the current medication helped the patient to control the pain and improve activity of daily living, the visual analog scale The patient was counseled about risk of opioid use, psychological risk associated with opioids discussed with the patient, body mass index and exercise. Patient signed the narcotic agreement , and was orally counseled not to overuse , abuse , divert, or sell medications ,and take them as prescribed only , and the patient was counseled against driving and while you are using the narcotic medication also not to use alcohol or any illicit drugs and the patient verbalized understanding that lack of compliance and could result in failure to renew narcotics prescriptions and possible discharge from the clinic - diagnoses, prognosis, and treatment options including but not limited to physical therapy, surgical interventions, interventional therapies and medication management including narcotics and adjuvant medication were discussed with the patient and all questions answered to the patient's satisfaction. -medication refile =1-Percocet 7.5/325 every 6 hours dispense 120 with one refill 2- Neurontin 300 mg 3 times a day dispense 90 with 1 refill Time with Patient: Less than 30
== END ==
LOC: PNWHC3 12:41
PROVIDERS: ATTEND Specialist
DX: M51.36 Other intervertebral disc degeneration, lumbar region (principal); M47.816 Spondylosis without myelopathy or radiculopathy, lumbar region; M46.86 Other specified inflammatory spondylopathies, lumbar region; Z87.891 Personal history of nicotine dependence; Z79.899 Other long term (current) drug therapy; Z88.6 Allergy status to analgesic agent
CPT/HCPCS: 99211

== ENCOUNTER 2016-11-19 10:04 | Day surgery (SDC) | payer OTHER ==
[2016-11-17 16:09] VITALS: BMI 29.5
[2016-11-19 10:43] VITALS: TEMP 98.5
[2016-11-19] MEDS: LACTATED RINGERS 1,000 ML IV SCH ×2 (10:50→11:59)
[2016-11-19] MEDS ORDERED: MIDAZOLAM 2 MG/2 ML VIAL ONE (12:00)
[2016-11-19] MEDS ORDERED: BUPIVACAINE (PF) 0.5% 30 ML VIAL ONE (12:00)
[2016-11-19] MEDS ORDERED: TRIAMCINOLONE ACETONIDE 40 MG/ML 1 ML VIAL ONE (12:00)
[2016-11-19] MEDS ORDERED: fentaNYL (PF) 50 MCG/ML 2 ML AMP ONE (12:00)
--- NOTE | 2016-11-19 12:26 | P.PCN ---
Date of Procedure: 11/19/16 Procedure(s) Performed: PREOPERATIVE DIAGNOSIS : 1- Lumbar spondylosis with Facet Arthropathy without myelopathy . 2- Lumber degenerative disc disease POSTOPERATIVE DIAGNOSIS: 1- Lumbar spondylosis with Facet Arthropathy without myelopathy . 2- Lumber degenerative disc disease PROCEDURE: Diagnostic bilateral L2-3 , L3 -4 , L4 -5 , and L5-S1 medial branch block under fluoroscopy ANESTHESIA: Local with 1% lidocaine 6 ml ; IV sedation with Versed 4 mg and Fentanyl 100 mcg. EBL: Minimal COMPLICATION: None. IV FLUIDS: 100 mL of normal saline. PROCEDURE INDICATION: Chronic low back pain secondary to Facet arthropathy unresponsive to conservative treatment. PROCEDURE DESCRIPTION: the patient was seen and identified in the preop holding area , risks and benefits and possible complications of the procedure and alternative were discussed with the patient, and the patient agreed to proceed with the procedure and signed the consent IV was started and vital signs monitored during the procedure and fluoroscopy was used to maximize the benefit and accuracy of the needle placement, and sedation was given to decrease patient anxiety, patient was taken to the procedure room and placed in prone position vital signs monitored in the back prepped with chlorhexidine X3 then under strict sterile technique using a right oblique fluoroscopy ,the junction of the transverse process and the superior articulating process of the right l2-3 ,L3- 4 , L4- 5, and L5-S1 vertebra which corresponding to the fluoroscopy image of the eye of the Fernando dog on the block side for the medial branches and subsequently , after local infiltration of skin and subcu tissuies with lidocaine 1% one mL at each level ,then 22-gauge Quincke-type needles , 4 needle was used , each one of them placed at the junction of the base of the transverse process and the superior articular process at the appropriate level, and the needle was advanced until the periosteum contacted, needle placement confirmed with AP oblique and lateral view and after appropriate needle placement confirmed, and after negative aspiration for heme and CSF and there was no paresthesia 2 mL of Marcaine 0.5% mixed with 40 mg Kenalog , then half mL injected at each level after negative aspiration the needle subsequently removed and the same procedure repeated for the left side at left side at L2-3 , L3-4, L4- 5 and L5- S1 levels. At the end of the procedure and the needles removed and a bandage applied after the skin was cleaned the cleaning solution patient taken to recovery room in stable condition and monitors in the recovery room for 20-30 minutes and discharged home in stable condition after discharge criteria met and patient will follow up with the pain clinic in 2-4 weeks
[2016-11-19] MEDS ORDERED: IV FLUID CONTINUATION 600 ML IV ONE (12:36)
[2016-11-19 12:40] VITALS: RESP 18
[2016-11-19 13:08] VITALS: BP 105/77; PULSE 106
--- NOTE | 2016-11-19 14:00 | FL ---
EXAMINATION TYPE: FL guided pain mgmt statistic DATE OF EXAM: 11/19/2016 12:29 PM HISTORY: Flouroscopy time 9 seconds of fluoroscopy provided. IMPRESSION: 1. Fluoroscopy time.
== END 2016-11-19 13:08 | disposition home or self-care (01) ==
LOC: ORPAIN 10:04
PROVIDERS: ATTEND Specialist
DX: G89.29 Other chronic pain (principal); M54.5 Low back pain; M47.816 Spondylosis without myelopathy or radiculopathy, lumbar region; M46.96 Unspecified inflammatory spondylopathy, lumbar region; M51.36 Other intervertebral disc degeneration, lumbar region; Z88.6 Allergy status to analgesic agent; Z88.5 Allergy status to narcotic agent; Z91.013 Allergy to seafood
CPT/HCPCS: 81025; 64493; 64494; 64495; 99152; J2250; J3301; J3010

== ENCOUNTER 2016-12-20 15:33 | Emergency (ER) | payer OTHER ==
[2016-12-20 15:48] VITALS: BP 135/94; PULSE 104; RESP 20; TEMP 97.7
--- NOTE | 2016-12-20 17:39 | ED ---
General Adult HPI - General Chief complaint: Recheck/Abnormal Lab/Rx Stated complaint: Tick Bites. Feel Ill Time Seen by Provider: 12/20/16 16:09 Source: patient, RN notes reviewed, old records reviewed Mode of arrival: ambulatory Limitations: no limitations - History of Present Illness Initial comments: Chief complaint history of present illness this is a 46-year-old female with a complaint of not feeling well for 2 weeks muscle aches and pains stiff neck and headache. Patient thinks she may been bitten by a tick. No previous rash or problems. She does a chronic neck pain and back pain sees a pain specialist. She's had surgery on her neck as well. Denies nausea vomiting or fever. - Related Data Home Medications Medication Instructions Recorded Confirmed Atenolol [Tenormin] 50 mg PO DAILY 02/11/15 11/19/16 Cholecalciferol [Vitamin D3] 1,000 unit PO DAILY 06/26/16 11/19/16 Doxepin [SINEquan] 25 mg PO HS 06/26/16 11/19/16 Omeprazole 20 mg PO BID 06/26/16 11/19/16 Dextroamphetamine/Amphetamine 30 mg PO DAILY 07/16/16 11/19/16 [Adderall] Venlafaxine HCl [Effexor XR] 75 mg PO DAILY 07/16/16 11/19/16 Vitamin B Complex 1 cap PO DAILY 07/16/16 11/19/16 ALPRAZolam [Xanax] 1 mg PO BID PRN 09/08/16 11/19/16 Previous Rx's Medication Instructions Recorded Gabapentin [Neurontin] 300 mg PO TID #90 cap 11/03/16 oxyCODONE HCL/ACETAMINOPHEN 1 tab PO Q6HR PRN #120 tab 11/03/16 [Percocet 7.5-325 mg] Allergies Allergy/AdvReac Type Severity Reaction Status Date / Time ketorolac [From Toradol] Allergy Rash/Hives Verified 11/19/16 10:26 shellfish derived Allergy dyspnea,swe Verified 11/19/16 10:26 lling tramadol [From Ultram] Allergy Rash/Hives Verified 11/19/16 10:26 Review of Systems ROS Statement: Those systems with pertinent positive or pertinent negative responses have been documented in the HPI. review of systems no complaint of visual acuity changes she has mild headache discomfort to the back of her head and her neck area chronic neck pain. Ongoing for over 2 weeks without change. No fevers. No neuro deficits. No rashes. Chronic back and neck pain. All systems are reviewed. Past medical problems significant for chronic back pain chronic neck pain, shingles, bronchitis, Insomnia. Surgeries appendectomy, back surgery gallbladder, hernia repair cervical fusion EGD hernia repair low back radiofrequency therapy. Family history father had lung cancer. Patient smoke strongly encouraged stop denies alcohol use ALLERGIES to ketorolac shellfish and tramadol. ROS Other: All systems not noted in ROS Statement are negative. Past Medical History Past Medical History: GERD/Reflux, Hypertension Additional Past Medical History / Comment(s): BACK PAIN. INSOMNIA. SHINGLES. BROCHITIS. LUMBAR DDD/SACRALITIS History of Any Multi-Drug Resistant Organisms: MRSA Date of last positivie culture/infection: 09/22/2009 MDRO Source:: Unknown source Past Surgical History: Appendectomy, Back Surgery, Section, Cholecystectomy, Hernia Repair Additional Past Surgical History / Comment(s): CERVICAL FUSION/ PLATE. EGD. Hiatal Hernia. RADIO FREQUENCY ABLATION(LUMBAR) Past Anesthesia/Blood Transfusion Reactions: No Reported Reaction Additional Past Anesthesia/Blood Transfusion Reaction / Comment(s): CLAUSTROPHOBIA Past Psychological History: ADD/ADHD, Anxiety Smoking Status: Current every day smoker Past Alcohol Use History: None Reported Additional Past Alcohol Use History / Comment(s): PT STARTED SMOKING AGE 17 OR 18, LESS THAN 1 PPD. She denies any marijuana, medical marijuana, street drug use. LIVES WITH HER SIG OTHER OF 24 YEARS. Past Drug Use History: None Reported - Past Family History Father Family Medical History: Cancer Additional Family Medical History / Comment(s): Father at age 48 from lung cancer. Mother Family Medical History: Congestive Heart Failure (CHF), CVA/TIA Additional Family Medical History / Comment(s): Mother is alive at age 68. She has suffered from a CVA and has chronic back problems. Patient has 2 brothers and 4 sisters with no major medical problems. General Exam - General Exam Comments Initial Comments: General: The patient is awake and alert, complains of 2 weeks of muscle aches and pains thinks she may been bitten by a tick. Vital signs temp 97.7 pulse 104 respiratory rate 20 pulse ox 99% on room air blood pressure 135/94 Eye: Pupils are equal, round and reactive to light, extra-ocular movements are intact ; there is normal conjunctiva bilaterally. No signs of icterus. Ears, nose, mouth and throat: There are moist mucous membranes and no oral lesions. Neck: moves neck without apparent discomfort but complains of 2 weeks of neck discomfort. He has a history of chronic neck pain with neck fusion. Cardiovascular: initial heart rate 104.. No murmur, rub or gallop is appreciated. Respiratory: Lungs are clear to auscultation, respirations are non-labored, breath sounds are equal. No wheezes, stridor, rales, or rhonchi. Gastrointestinal: Soft, non-distended, non-tender abdomen without masses or organomegaly noted. There is no rebound or guarding present. No CVA tenderness. Bowel sounds are unremarkable. Back: chronic back pain Musculoskeletal: Normal ROM, no tenderness, There is no pedal edema. There is no calf tenderness or swelling. Sensation intact. Pulses equal bilaterally 2+. Neurological: no neuro deficits. No difficulty walking, no balance problems. Skin: Skin is warm and dry and no rashes or lesions are noted. never noticed a rash. Limitations: no limitations Course Vital Signs 12/20/16 15:39 Temperature 97.7 F Pulse Rate 104 H Respiratory 20 Rate Blood Pressure 135/94 O2 Sat by Pulse 99 Oximetry Medical Decision Making - Medical Decision Making examination was completed, orders are written ,and the patient said she can't stay any longer. 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 Patient was told return when she can or follow-up with her family physician. Disposition Clinical Impression: Tick bite of scalp Disposition: Left Against Medical Advice Condition: Undetermined Instructions: Tick Bite (ED), Lyme Disease (ED) Additional Instructions: Return for labs to be drawn here or injury family doctor's office Referrals: Lance Felipe MD [Primary Care Provider] - 1-2 days Time of Disposition: 17:41
== END 2016-12-20 17:30 | disposition left against medical advice (07) ==
LOC: EC 15:33
DX: S00.06XA Insect bite (nonvenomous) of scalp, initial encounter (principal); G89.29 Other chronic pain; M54.2 Cervicalgia; K21.9 Gastro-esophageal reflux disease without esophagitis; I10 Essential (primary) hypertension; G47.00 Insomnia, unspecified; F90.9 Attention-deficit hyperactivity disorder, unspecified type; F41.9 Anxiety disorder, unspecified; F17.200 Nicotine dependence, unspecified, uncomplicated; Z53.29 Procedure and treatment not carried out because of patient's decision for other reasons; Z98.1 Arthrodesis status; Z88.5 Allergy status to narcotic agent; Z91.013 Allergy to seafood; Z79.899 Other long term (current) drug therapy; W57.XXXA Bitten or stung by nonvenomous insect and other nonvenomous arthropods, initial encounter
CPT/HCPCS: 99283

== ENCOUNTER → 2016-12-30 | Outpatient (CLI) | payer OTHER ==
[2016-12-30 13:37] VITALS: BP 146/105; PULSE 83; RESP 16; TEMP 97.7
--- NOTE | 2016-12-30 14:19 | P.PN ---
Subjective This is follow-up visit for this patient with a history of severe and chronic low back pain secondary to lumbar degenerative disc disease, lumbar facet arthropathy, we did interventional pain management injection, diagnostic medial branch block lumbar area L2 ---S1 , first one was done in August 2016 patient gets more than 50% improvement in her low back pain, on the second diagnostic medial branch block was done October 2016 patient reported that her pain was 8/10 before the block and in decreased to 0 after the block, , and she reported that 1 week after the second diagnostic medial branch block she started having severe low back pain and numbness in her right lower extremity, and associated with some weakness, she denies any fever or night sweats and no change in the bowel movement or urination, patient currently on 1-Percocet 10/325 every 6 hours 2-Neurontin 300 mg 3 times a day Patient denies any side effects of the medication, denies excessive drowsiness or sleepiness, denies suicidal ideation, and reports that the current pain medication is NOT helping To control the pain and improve activity of daily living, denies change in bowel movement or urination, patient denies any fever or night sweats and patient here for follow-up visit and medication refill Objective - Vital Signs Vital signs: Vital Signs Temp 97.7 F 12/30/16 13:29 Pulse 83 12/30/16 13:29 Resp 16 12/30/16 13:29 BP 146/105 12/30/16 13:29 Pulse Ox Intake & Output 12/29/16 12/30/16 12/30/16 18:59 06:59 18:59 Weight 65.771 kg - Exam Physical Examinations : 1-Constitutiona : Cooperative , not in acute distress . 2-HEENT : nech ; supple , no Lymphadenopathy , normal thyroid size . eyes : no ptosis , no icterus, no photophobia . ENT : normal of hearing , normal oropharynx , no Thrush . 3- Respiratory : Chest clear to auscultations Bilaterally , no wheezing , no Rhonchi . 4- Cardiovascular : regular rate and rhythem , S1 , S2 , no S3 , no S4. 5- Gastrointestinal : abdomen soft no tenderness , bowel sounds positive all four quadrents , no organomegally . 6- Genitourinary : Defferred . 7- neurologic : Cranial nerve II to XII intact , no focal neurological deffecit . 8-psychatric : alert , oriented X 3 , appropriate affect , intact judgment and insight . 9-Lymphatic : no Lymphadenopathy . 10- musculoskeltal : , Lumber spine = moter stegnth lower extremities , thigh and legs .5/5 on the left , and eats 3-4/5 on the right side deep tendon reflexes : normal Knee Jerk , normal ankle Jerk left , decreased deep tendon reflexes at the right knee jerk and right ankle jerk positive lumber facet Loading Test strait leg raising test positive at 30 degree right , negative on the left side and Fabere test positive Right and negative on the left moderate tenderness over the Sacroiliac joint on the Right , Assessment and Plan Plan: Assessment and plan = - Chronic low back pain secondary to lumbar degenerative disc disease , lumbar spondylosis with facet arthropathy without myelopathy , she had 2 diagnostic medial branch block both of them she had a good result, today percent or more improvement in her low back pain and she will be good candidate to have radiofrequency ablation of the medial branch lumbar area, currently she is having new symptoms which is radicular symptoms to the right lower extremity (L3 /L4) dermatomal distribution, some weakness in the right lower extremity -chronic and current use of high-risk medication (Opioids). -Patient denies any side effect of the medication, and the current medication helped the patient to control the pain. The patient was counseled about risk of opioid use, psychological risk associated with opioids discussed with the patient, body mass index and exercise. Patient signed the narcotic agreement , and was orally counseled not to overuse , abuse , divert, or sell medications ,and take them as prescribed only , and the patient was counseled against driving and while you are using the narcotic medication also not to use alcohol or any illicit drugs and the patient verbalized understanding that lack of compliance and could result in failure to renew narcotics prescriptions and possible discharge from the clinic - diagnoses, prognosis, and treatment options including but not limited to physical therapy, surgical interventions, interventional therapies and medication management including narcotics and adjuvant medication were discussed with the patient and all questions answered to the patient's satisfaction. -medication refile =1-Neurontin 600 mg 3 times a day 2-discontinue Percocet ( fear that she has no benefit from this medication) 3-start [place] 10/325 Q 6 H -procedure= patient will be candidate to have radiofrequency ablation medial branch lumbar area, but in the view that she had the new symptoms which is weakness and numbness, I will schedule her to have MRI of the lumbar spine before we can do any interventional pain management, patient will be seen in the pain clinic in 3-4 weeks, MRI of the lumbar spine without contrast ordered today Time with Patient: Less than 30
== END | disposition home or self-care (01) ==
LOC: PNWHC3 12:55
PROVIDERS: ATTEND Specialist
DX: M51.36 Other intervertebral disc degeneration, lumbar region (principal); M47.816 Spondylosis without myelopathy or radiculopathy, lumbar region; M46.96 Unspecified inflammatory spondylopathy, lumbar region; G89.29 Other chronic pain; Z79.891 Long term (current) use of opiate analgesic; Z79.899 Other long term (current) drug therapy
CPT/HCPCS: 99211

== ENCOUNTER 2017-01-15 09:43 | Emergency (ER) | payer OTHER ==
[2017-01-15] MEDS ORDERED: DIAZEPAM 5 MG/ML 2 ML SYRINGE IM STA (10:40)
--- NOTE | 2017-01-15 10:41 | ED ---
Back Pain HPI - General Chief Complaint: Back Pain/Injury Stated Complaint: BACK SPASMS Time Seen by Provider: 01/15/17 09:57 Source: patient, RN notes reviewed Limitations: no limitations - History of Present Illness Initial Comments: 46-year-old female presents emergency Department chief complaint of back pain. Patient is chronic back pain and sees pinch managed for this. Patient states she's having spasms and states that this occasionally happens and states that Valium only helps. Patient denies any bowel bladder incontinence or retention. Denies any saddle anesthesias. Patient denies any nausea vomiting diarrhea constipation. Patient denies any lower extremity paresthesias no saddle anesthesias. Patient denies any dysuria. - Related Data Home Medications Medication Instructions Recorded Confirmed Cholecalciferol [Vitamin D3] 1,000 unit PO DAILY 06/26/16 01/15/17 Omeprazole 20 mg PO BID 06/26/16 01/15/17 Dextroamphetamine/Amphetamine 30 mg PO DAILY 07/16/16 01/15/17 [Adderall] ALPRAZolam [Xanax] 1 mg PO BID PRN 09/08/16 01/15/17 Ibuprofen [Motrin] 400 mg PO Q6HR PRN 01/15/17 01/15/17 Previous Rx's Medication Instructions Recorded HYDROcodone/APAP 10-325MG [[place] 1 tab PO Q6H PRN #120 tab 12/30/16 10-325] Diazepam [Valium] 5 mg PO DAILY #7 tab 01/15/17 Allergies Allergy/AdvReac Type Severity Reaction Status Date / Time ketorolac [From Toradol] Allergy Rash/Hives Verified 01/15/17 10:31 shellfish derived Allergy dyspnea,swe Verified 01/15/17 10:31 lling tramadol [From Ultram] Allergy Rash/Hives Verified 01/15/17 10:31 Review of Systems ROS Statement: Those systems with pertinent positive or pertinent negative responses have been documented in the HPI. ROS Other: All systems not noted in ROS Statement are negative. Past Medical History Past Medical History: GERD/Reflux, Hypertension Additional Past Medical History / Comment(s): BACK PAIN. INSOMNIA. SHINGLES. BROCHITIS. LUMBAR DDD/SACRALITIS History of Any Multi-Drug Resistant Organisms: MRSA Date of last positivie culture/infection: 09/22/2009 MDRO Source:: Unknown source Past Surgical History: Appendectomy, Back Surgery, Section, Cholecystectomy, Hernia Repair Additional Past Surgical History / Comment(s): CERVICAL FUSION/ PLATE. EGD. Hiatal Hernia. RADIO FREQUENCY ABLATION(LUMBAR) Past Anesthesia/Blood Transfusion Reactions: No Reported Reaction Additional Past Anesthesia/Blood Transfusion Reaction / Comment(s): CLAUSTROPHOBIA Past Psychological History: ADD/ADHD, Anxiety Smoking Status: Current every day smoker Past Alcohol Use History: Rare Past Drug Use History: None Reported - Past Family History Father Family Medical History: Cancer Additional Family Medical History / Comment(s): Father at age 48 from lung cancer. Mother Family Medical History: Congestive Heart Failure (CHF), CVA/TIA Additional Family Medical History / Comment(s): Mother is alive at age 68. She has suffered from a CVA and has chronic back problems. Patient has 2 brothers and 4 sisters with no major medical problems. General Exam Limitations: no limitations General appearance: alert, in no apparent distress Respiratory exam: Present: normal lung sounds bilaterally. Absent: respiratory distress, wheezes, rales, rhonchi, stridor Cardiovascular Exam: Present: regular rate, normal rhythm, normal heart sounds. Absent: systolic murmur, diastolic murmur, rubs, gallop, clicks GI/Abdominal exam: Present: soft, normal bowel sounds. Absent: distended, tenderness, guarding, rebound, rigid Extremities exam: Present: normal inspection (Lower extremity strength equal bilaterally neurovascular intact), full ROM, normal capillary refill. Absent: tenderness, pedal edema, joint swelling, calf tenderness Back exam: Present: full ROM, tenderness (Mild tenderness lumbar paraspinals), muscle spasm, paraspinal tenderness Neurological exam: Present: alert, oriented X3, CN II-XII intact, reflexes normal. Absent: motor sensory deficit Course Vital Signs 01/15/17 09:52 Temperature 97.6 F Pulse Rate 102 H Respiratory 18 Rate Blood Pressure 133/98 O2 Sat by Pulse 100 Oximetry Medical Decision Making - Medical Decision Making 38-year-old female presented for back spasms. Patient has chronic pain. Patient be given Valium at this time return parameters were discussed. Disposition Clinical Impression: Lumbar paraspinal muscle spasm Disposition: HOME SELF-CARE Condition: Stable Instructions: Chronic Back Pain (ED) Additional Instructions: Please return to the Emergency Department if symptoms worsen or any other concerns. Prescriptions: Diazepam [Valium] 5 mg PO DAILY #7 tab Referrals: None,Stated [Primary Care Provider] - 1-2 days Time of Disposition: 11:12
[2017-01-15 11:22] VITALS: RESP 16; TEMP 98.7
[2017-01-15 11:40] VITALS: BP 133/98; PULSE 102
== END 2017-01-15 11:39 | disposition home or self-care (01) ==
LOC: EC 09:43
DX: M62.830 Muscle spasm of back (principal); K21.9 Gastro-esophageal reflux disease without esophagitis; F90.9 Attention-deficit hyperactivity disorder, unspecified type; F17.200 Nicotine dependence, unspecified, uncomplicated; Z88.6 Allergy status to analgesic agent; Z91.013 Allergy to seafood; Z79.899 Other long term (current) drug therapy
CPT/HCPCS: 99283

== ENCOUNTER → 2017-01-19 | Outpatient (CLI) | payer OTHER ==
[2017-01-19 14:20] VITALS: BP 157/108; PULSE 87; RESP 18; TEMP 98.9
--- NOTE | 2017-01-19 14:36 | P.PN ---
Progress Note - Text Patient returns for followup for chronic back pain with radiation to RLE with weakness and numbness and sensation of RLE giving out. Patient recently changed from Percocet back to [place] and states that the [place] did not help her at all. Patient has MRI L-spine scheduled for early January. Patient denies adverse drug effects from medications. Today, pt denies new-onset weakness, bowel/bladder incontinence, or any other signs or symptoms of cauda equina syndrome. There are no signs of acute intoxication, and no indications of medication diversion or overuse. In addition to above, 13-point review of systems is also negative for chest pain , shortness of breath, changes in vision, changes in hearing, new onset weakness , abdominal pain, diarrhea, extreme fatigue, malaise, fever, skin changes, homicidal or suicidal ideation, or bowel or bladder incontinence. Vital Signs: Reviewed in EMR Gen: WDWN, AAOx3, NAD HEENT: NCAT, EOMI, hearing grossly normal Pulm: resp unlabored Abd: soft, NT, ND Neck: supple, trachea midline ROM in flexion lumbar spine: reduced ROM in extension lumbar spine: reduced Lumbar paravertebral tenderness: + Facet loading: + bilateral, R > L SI joint tenderness: + R > L Bony's test: Straight leg raise: +RLE at 15 degrees Lower extremity: decreased RLE strength secondary to pain; decreased sensation to pinprick Neuro: CN II-XII grossly intact, muscle strength lower extremities PRESERVED Imaging: Reviewed in EMR Assessment: 1. lumbar radiculitis 2. lumbar spondylosis 3. chronic pain syndrome Plan: 1. Explanation: Opioid and psychological risk scores were reviewed. Diagnoses , prognoses, and multiple treatment options including but not limited to physical therapy, interventional therapies, adjuvant medical therapies, narcotic medication therapies, and surgery were discussed with the patient and all questions were answered to the patient's satisfaction. 2. Opioid agreement: Patient has previously signed narcotic agreement, and was orally counseled to not overuse, abuse, divert, or cell medications, and to take them as prescribed by only 1 healthcare provider. The patient was also counseled to store opioid medications in a safe and preferably locked location. Patient was also counseled against driving or operating heavy equipment while using narcotic medications and also to not use alcohol or any illicit or recreational drugs. The patient verbalized understanding that lack of compliance with any of the above and likely result in failure to renew narcotic prescriptions, possible discharge from the clinic, and possible legal ramifications thereafter if indicated. 3. Counseling: The patient was counseled extensively on SMOKING CESSATION, BODY MASS INDEX, EXERCISE. Specifically, the patient was instructed regarding the importance of smoking cessation, obesity, and exercise in the context of both chronic pain and overall health. 4. Procedures: none for now, awaiting MRI L-spine 5. Consultations: None 6. Investigations: None; UDS OK 7. Medications: Percocet 7.5/325 #90 with no refill; patient told to bring all of her [place] and Percocet bottles to next visit 8. Disposition: f/u for re-eval 4 weeks PQRS measures: 1-Patient's medications are documented in the chart. 2-Tobacco use is positive, counseling given 3-Patient has not had a pneumococcal vaccine. 4-Advanced care planning discussed, patient unable to give. 5-Opioid contract signed with the patient. 6-Pain positive, follow-up visit or procedure scheduled 7-Patient's blood pressure measured and documented, and patient will follow up with the primary care due to hypertension. 8-Patient's weight was measured, and body mass index ABOVE the normal limits, and counseling was done. Patient instructed to follow up with PCP. 9-Patient WAS NOT identified as an unhealthy alcohol user.
== END ==
LOC: PNWHC3 13:44
PROVIDERS: ATTEND Anesthesiology
DX: M47.26 Other spondylosis with radiculopathy, lumbar region (principal); G89.4 Chronic pain syndrome; Z79.891 Long term (current) use of opiate analgesic
CPT/HCPCS: 99211

== ENCOUNTER → 2017-02-10 | Outpatient (CLI) | payer OTHER ==
--- NOTE | 2017-02-10 18:13 | MR ---
EXAMINATION TYPE: MR lumbar spine wo con DATE OF EXAM: 02/10/2017 COMPARISON: 09/07/2016 HISTORY: Lumbar Radiculopathy, Severe pain on right side TECHNIQUE: T1 and T2 axial and sagittal images of the lumbar spine are submitted. FINDINGS: There is no abnormal signal seen within the visualized spinal cord or paraspinal soft tissu es. Nonspecific marrow signal is somewhat heterogeneous but stable from previous. Correlate clinicall y. At L1-2 there is no disc herniation or canal stenosis. No foraminal encroachment. At L2-3 there is no disc herniation, canal stenosis, degenerative disc disease or foraminal encroachm ent. At L3-4 there is stable moderate degenerative disc disease and facet arthropathy. No disc herniation or canal stenosis. At L4-5 there is stable moderate degenerative disc disease. Very mild left lateral disc bulging but n o nerve root contact stable. No Canal stenosis facet arthropathy noted. At L5-S1 there is facet arthropathy with no disc herniation or canal stenosis. No foraminal encroachm ent. IMPRESSION: 1. Stable degenerative disc disease L3-4 and L4-5. Mild left lateral disc bulging L4-L5 with mild for aminal encroachment but no nerve root contact. 2. Stable nonspecific marrow changes which could been the basis of osteopenia. Correlate clinically t o exclude other etiologies. 3. Multilevel facet arthropathy is stable
== END | disposition home or self-care (01) ==
LOC: RADMRIMAIN 16:01
PROVIDERS: ATTEND Specialist
DX: M51.26 Other intervertebral disc displacement, lumbar region (principal); M51.36 Other intervertebral disc degeneration, lumbar region; M46.96 Unspecified inflammatory spondylopathy, lumbar region
CPT/HCPCS: 72148

== ENCOUNTER → 2017-02-16 | Outpatient (CLI) | payer OTHER ==
[2017-02-16 11:57] VITALS: BP 164/100; PULSE 101; RESP 16; TEMP 98.1
--- NOTE | 2017-02-16 12:18 | P.PN ---
Progress Note - Text Patient returns for followup for chronic back pain with radiation to RLE with weakness and numbness and sensation of RLE giving out. Patient recently changed to Percocet TID and states that she is doing better but occasionally takes a 200 mg ibuprofen in the middle of the night. Patient had MRI done, results below. Patient denies adverse drug effects from medications. Today, pt denies new-onset weakness, bowel/bladder incontinence, or any other signs or symptoms of cauda equina syndrome. There are no signs of acute intoxication, and no indications of medication diversion or overuse. In addition to above, 13-point review of systems is also negative for chest pain , shortness of breath, changes in vision, changes in hearing, new onset weakness , abdominal pain, diarrhea, extreme fatigue, malaise, fever, skin changes, homicidal or suicidal ideation, or bowel or bladder incontinence. Vital Signs: Reviewed in EMR Gen: WDWN, AAOx3, NAD HEENT: NCAT, EOMI, hearing grossly normal Pulm: resp unlabored Abd: soft, NT, ND Neck: supple, trachea midline ROM in flexion lumbar spine: reduced ROM in extension lumbar spine: reduced Lumbar paravertebral tenderness: ++ Facet loading: ++ bilateral SI joint tenderness: + R > L Bony's test: + R side Straight leg raise: +RLE at 15 degrees Lower extremity: decreased RLE strength secondary to pain; decreased sensation to pinprick Neuro: CN II-XII grossly intact, muscle strength lower extremities PRESERVED Imaging: MRI lumbar spine dated 02/10/2017 demonstrates stable moderate degenerative disc disease and facet arthropathy at the L3-L4 level. At the L4- L5 level there stable moderate degenerative disc disease and very mild lateral left disc bulging but no nerve root contact. At the L5-S1 level there is facet arthropathy with no disc herniation or canal stenosis. There is no evidence of any radiculopathy or lumbar spinal stenosis. Multilevel facet arthropathy is stable. Assessment: 1. lumbar radiculitis 2. lumbar spondylosis 3. chronic pain syndrome Plan: 1. Explanation: Opioid and psychological risk scores were reviewed. Diagnoses , prognoses, and multiple treatment options including but not limited to physical therapy, interventional therapies, adjuvant medical therapies, narcotic medication therapies, and surgery were discussed with the patient and all questions were answered to the patient's satisfaction. 2. Opioid agreement: Patient has previously signed narcotic agreement, and was orally counseled to not overuse, abuse, divert, or cell medications, and to take them as prescribed by only 1 healthcare provider. The patient was also counseled to store opioid medications in a safe and preferably locked location. Patient was also counseled against driving or operating heavy equipment while using narcotic medications and also to not use alcohol or any illicit or recreational drugs. The patient verbalized understanding that lack of compliance with any of the above and likely result in failure to renew narcotic prescriptions, possible discharge from the clinic, and possible legal ramifications thereafter if indicated. 3. Counseling: The patient was counseled extensively on SMOKING CESSATION, BODY MASS INDEX, EXERCISE. Specifically, the patient was instructed regarding the importance of smoking cessation, obesity, and exercise in the context of both chronic pain and overall health. 4. Procedures: none for now; consider R lumbar RFA in future 5. Consultations: None 6. Investigations: referral to Dr. Alicea for EMG of lower extremities to eval weakness RLE 7. Medications: Percocet 7.5/325 #90 with one refill 8. Disposition: f/u for re-eval 8 weeks with EMG report PQRS measures: 1-Patient's medications are documented in the chart. 2-Tobacco use is positive, counseling given 3-Patient has not had a pneumococcal vaccine. 4-Advanced care planning discussed, patient unable to give. 5-Opioid contract signed with the patient. 6-Pain positive, follow-up visit or procedure scheduled 7-Patient's blood pressure measured and documented, and patient will follow up with the primary care due to hypertension. 8-Patient's weight was measured, and body mass index ABOVE the normal limits, and counseling was done. Patient instructed to follow up with PCP. 9-Patient WAS NOT identified as an unhealthy alcohol user.
== END | disposition home or self-care (01) ==
LOC: PNWHC3 11:40
PROVIDERS: ATTEND Anesthesiology
DX: M47.26 Other spondylosis with radiculopathy, lumbar region (principal); G89.4 Chronic pain syndrome; Z79.891 Long term (current) use of opiate analgesic; Z79.1 Long term (current) use of non-steroidal anti-inflammatories (NSAID)
CPT/HCPCS: 99211

== ENCOUNTER 2017-02-24 08:09 | Observation (INO) | payer OTHER ==
[2017-02-24] MEDS ORDERED: HYDROmorphone 1 MG/ML 1 ML SYRINGE IVP STA (08:57)
[2017-02-24] MEDS ORDERED: DIAZEPAM 5 MG/ML 2 ML SYRINGE IVP STA (08:57)
[2017-02-24] MEDS ORDERED: ONDANSETRON 4 MG/2 ML VIAL IVP STA (08:57)
[2017-02-24] MEDS ORDERED: SODIUM CHLORIDE 0.9% 1,000 ML IV STA ×2 (09:00)
--- NOTE | 2017-02-24 09:00 | ED ---
General Adult HPI - General Chief complaint: Back Pain/Injury Stated complaint: leg and back pain Time Seen by Provider: 02/24/17 08:32 Source: patient, RN notes reviewed Mode of arrival: ambulatory Limitations: no limitations - History of Present Illness Initial comments: Patient 47-year-old female who presents emergency room today with a chief complaint of diarrhea 4 days with increased back pain, chest pain and shortness of breath. Patient states that she's had diarrhea for 4 days. She denies any signs of blood. Does admit that she's been feeling nauseated. Admits to history of chronic back pain. States she's had injections in her back. States back pain increased over the last few days. Denies any injury or trauma. She states that approximately 2-3 hours ago began experiencing shortness of breath and chest pain. Patient denies any other complaints or symptoms at this time. Patient denies any recent fever, chills, abdominal pain, vomiting, numbness or tingling, dysuria or hematuria, constipation or diarrhea, headaches or visual changes, or any other complaints. - Related Data Home Medications Medication Instructions Recorded Confirmed Cholecalciferol [Vitamin D3] 1,000 unit PO DAILY 06/26/16 02/24/17 Dextroamphetamine/Amphetamine 30 mg PO QAM 07/16/16 02/24/17 [Adderall] Doxepin [SINEquan] 25 mg PO HS 01/17/17 02/24/17 Atenolol [Tenormin] 50 mg PO DAILY 02/24/17 02/24/17 clonazePAM [KlonoPIN] 0.5 mg PO BID 02/24/17 02/24/17 Previous Rx's Medication Instructions Recorded Gabapentin [Neurontin] 300 mg PO TID #90 02/16/17 oxyCODONE HCL/ACETAMINOPHEN 1 tab PO Q8HR PRN #90 tab 02/16/17 [Percocet 7.5-325 mg] Allergies Allergy/AdvReac Type Severity Reaction Status Date / Time ketorolac [From Toradol] Allergy Rash/Hives Verified 02/24/17 08:24 shellfish derived Allergy Anaphylaxis Verified 02/24/17 08:50 tramadol [From Ultram] Allergy Rash/Hives Verified 02/24/17 08:50 Review of Systems ROS Statement: Those systems with pertinent positive or pertinent negative responses have been documented in the HPI. ROS Other: All systems not noted in ROS Statement are negative. Past Medical History Past Medical History: GERD/Reflux, Hypertension Additional Past Medical History / Comment(s): BACK PAIN. INSOMNIA. SHINGLES. BROCHITIS. LUMBAR DDD/SACRALITIS History of Any Multi-Drug Resistant Organisms: MRSA Date of last positivie culture/infection: 09/22/2009 MDRO Source:: neck Past Surgical History: Appendectomy, Back Surgery, Section, Cholecystectomy, Hernia Repair Additional Past Surgical History / Comment(s): CERVICAL FUSION/ PLATE. EGD. Hiatal Hernia. RADIO FREQUENCY ABLATION(LUMBAR) Past Anesthesia/Blood Transfusion Reactions: No Reported Reaction Additional Past Anesthesia/Blood Transfusion Reaction / Comment(s): CLAUSTROPHOBIA Past Psychological History: ADD/ADHD, Anxiety Smoking Status: Current every day smoker Past Alcohol Use History: None Reported - Past Family History Father Family Medical History: Cancer Additional Family Medical History / Comment(s): Father at age 48 from lung cancer. Mother Family Medical History: Congestive Heart Failure (CHF), CVA/TIA Additional Family Medical History / Comment(s): Mother is alive at age 68. She has suffered from a CVA and has chronic back problems. Patient has 2 brothers and 4 sisters with no major medical problems. General Exam - General Exam Comments Initial Comments: General: The patient is awake and alert, in moderate distress. Eye: Pupils are equal, round and reactive to light, extra-ocular movements are intact. No nystagmus. There is normal conjunctiva bilaterally. No signs of icterus. Ears, nose, mouth and throat: There are moist mucous membranes and no oral lesions. Neck: The neck is supple, there is no tenderness or JVD. Cardiovascular: There is a regular rate and rhythm. No murmur, rub or gallop is appreciated. She tender to palpation of the anterior chest wall Respiratory: Lungs are clear to auscultation, respirations are non-labored, breath sounds are equal. No wheezes, stridor, rales, or rhonchi. Gastrointestinal: Soft, non-distended, non-tender abdomen without masses or organomegaly noted. There is no rebound or guarding present. No CVA tenderness. Bowel sounds are unremarkable. Musculoskeletal: Normal appearance of the thoracic and lumbar spine. No step- offs forms appreciated. Patient diffusely tender throughout the lumbar spine. There is no redness or erythema. Strength 5/5. Sensation intact. Pulses equal bilaterally 2+. Neurological: A&O x 3. CN II-XII intact, There are no obvious motor or sensory deficits. Coordination appears grossly intact. Speech is normal. Skin: Skin is warm and dry and no rashes or lesions are noted. Psychiatric: Cooperative, appropriate mood & affect, normal judgment. Limitations: no limitations Course Vital Signs 02/24/17 02/24/17 02/24/17 08:16 08:45 09:10 Temperature 97.0 F L Pulse Rate 112 H 110 H 100 Respiratory 20 24 22 Rate Blood Pressure 135/93 135/101 120/83 O2 Sat by Pulse 100 99 100 Oximetry 02/24/17 02/24/17 02/24/17 09:55 10:19 11:06 Temperature Pulse Rate 91 89 89 Respiratory 22 18 18 Rate Blood Pressure 109/60 122/81 131/75 O2 Sat by Pulse 99 98 98 Oximetry EKG Findings - EKG Comments: EKG Findings:: EKG performed at 0841: Shows sinus tachycardia 110 bpm. MS interval 158. QRS 74. QT/QTC 350/473. No acute ST changes. Compared to previous EKG on 10/17/2016. Repeat EKG performed at 1055: Shows normal sinus rhythm at 92 beats per minute. MS interval 154. QRS 74. QT/QTc is 362/447. No acute ST changes. Medical Decision Making - Medical Decision Making Reexamined at this time does admit to improvement after nitro sublingual here in the emergency room. Will be given nitro paste. Patient's chest x-rays negative. EKG shows no acute changes. Repeat EKG is negative. Patient will be admitted for serial enzymes. - Lab Data Result diagrams: 02/24/17 08:45 02/24/17 08:45 Lab Results 02/24/17 02/24/17 02/24/17 Range/Units 08:45 08:45 08:45 WBC 10.0 (3.8-10.6) k/uL RBC 5.15 (3.80-5.40) m/uL Hgb 16.9 H (11.4-16.0) gm/dL Hct 49.6 H (34.0-46.0) % MCV 96.3 (80.0-100.0) fL MCH 32.7 (25.0-35.0) pg MCHC 34.0 (31.0-37.0) g/dL RDW 13.9 (11.5-15.5) % Plt Count 410 (150-450) k/uL Neutrophils % 71 % Lymphocytes % 18 % Monocytes % 6 % Eosinophils % 2 % Basophils % 1 % Neutrophils # 7.1 (1.3-7.7) k/uL Lymphocytes # 1.8 (1.0-4.8) k/uL Monocytes # 0.6 (0-1.0) k/uL Eosinophils # 0.2 (0-0.7) k/uL Basophils # 0.1 (0-0.2) k/uL PT (9.0-12.0) sec INR (<1.2) APTT (22.0-30.0) sec D-Dimer (<0.60) mg/L FEU Sodium 142 (137-145) mmol/L Potassium 4.5 (3.5-5.1) mmol/L Chloride 106 (98-107) mmol/L Carbon Dioxide 25 (22-30) mmol/L Anion Gap 11 mmol/L BUN 5 L (7-17) mg/dL Creatinine 0.77 (0.52-1.04) mg/dL Est GFR (MDRD) Af Amer >60 (>60 ml/min/1.73 sqM) Est GFR (MDRD) Non-Af >60 (>60 ml/min/1.73 sqM) Glucose 121 H (74-99) mg/dL Calcium 10.8 H (8.4-10.2) mg/dL Magnesium 1.8 (1.6-2.3) mg/dL Total Bilirubin 0.3 (0.2-1.3) mg/dL AST 19 (14-36) U/L ALT 51 (9-52) U/L Alkaline Phosphatase 117 (38-126) U/L Total Creatine Kinase 27 L (30-135) U/L CK-MB (CK-2) 0.4 (0.0-2.4) ng/mL CK-MB (CK-2) Rel Index 1.5 Troponin I <0.012 (0.000-0.034) ng/mL NT-Pro-B Natriuret Pep pg/mL Total Protein 8.0 (6.3-8.2) g/dL Albumin 4.5 (3.5-5.0) g/dL Amylase 34 (30-110) U/L Lipase 86 (23-300) U/L 02/24/17 02/24/17 Range/Units 08:45 08:45 WBC (3.8-10.6) k/uL RBC (3.80-5.40) m/uL Hgb (11.4-16.0) gm/dL Hct (34.0-46.0) % MCV (80.0-100.0) fL MCH (25.0-35.0) pg MCHC (31.0-37.0) g/dL RDW (11.5-15.5) % Plt Count (150-450) k/uL Neutrophils % % Lymphocytes % % Monocytes % % Eosinophils % % Basophils % % Neutrophils # (1.3-7.7) k/uL Lymphocytes # (1.0-4.8) k/uL Monocytes # (0-1.0) k/uL Eosinophils # (0-0.7) k/uL Basophils # (0-0.2) k/uL PT 10.2 (9.0-12.0) sec INR 1.0 (<1.2) APTT 26.8 (22.0-30.0) sec D-Dimer 0.29 (<0.60) mg/L FEU Sodium (137-145) mmol/L Potassium (3.5-5.1) mmol/L Chloride (98-107) mmol/L Carbon Dioxide (22-30) mmol/L Anion Gap mmol/L BUN (7-17) mg/dL Creatinine (0.52-1.04) mg/dL Est GFR (MDRD) Af Amer (>60 ml/min/1.73 sqM) Est GFR (MDRD) Non-Af (>60 ml/min/1.73 sqM) Glucose (74-99) mg/dL Calcium (8.4-10.2) mg/dL Magnesium (1.6-2.3) mg/dL Total Bilirubin (0.2-1.3) mg/dL AST (14-36) U/L ALT (9-52) U/L Alkaline Phosphatase (38-126) U/L Total Creatine Kinase (30-135) U/L CK-MB (CK-2) (0.0-2.4) ng/mL CK-MB (CK-2) Rel Index Troponin I (0.000-0.034) ng/mL NT-Pro-B Natriuret Pep 37 pg/mL Total Protein (6.3-8.2) g/dL Albumin (3.5-5.0) g/dL Amylase (30-110) U/L Lipase (23-300) U/L Disposition Clinical Impression: Chest pain, Chronic back pain Disposition: ADMITTED IP TO THIS [facility] Condition: Stable Referrals: None,Stated [Primary Care Provider] - 1-2 days Time of Disposition: 10:45
[2017-02-24 09:02] LABS: Basophils # (A) 0.1 k/uL (0-0.2); Basophils % (A) 1 %; CH 31.9; CHCM 33.3; Eosinophils # (A) 0.2 k/uL (0-0.7); Eosinophils % (A) 2 %; HCT 49.6 % (34.0-46.0); HDW 2.48; HGB 16.9 gm/dL (11.4-16.0); Luc # (Auto) 0.17; Luc % (Auto) 2; Lymphocytes # (A) 1.8 k/uL (1.0-4.8); Lymphocytes % (A) 18 %; MCH 32.7 pg (25.0-35.0); MCV 96.3 fL (80.0-100.0); Mean Platelet Volume 6.8; Monocytes # (A) 0.6 k/uL (0-1.0); Monocytes % (A) 6 %; Neutrophils # (A) 7.1 k/uL (1.3-7.7); Neutrophils % (A) 71 %; RBC 5.15 m/uL (3.80-5.40); RDW 13.9 % (11.5-15.5); WBC (Perox) 10.02
[2017-02-24 09:11] LABS: ALT 51 U/L (9-52); AST 19 U/L (14-36); Alkaline Phosphatase 117 U/L (38-126); Amylase 34 U/L (30-110); Anion Gap 11 mmol/L; Blood Urea Nitrogen 5 mg/dL (7-17); Calcium 10.8 mg/dL (8.4-10.2); Carbon Dioxide 25 mmol/L (22-30); Chloride 106 mmol/L (98-107); Glucose 121 mg/dL (74-99); Magnesium 1.8 mg/dL (1.6-2.3); Non-African American GFR(MDRD) >60 (>60 ml/min/1.73 sqM); Potassium 4.5 mmol/L (3.5-5.1); Sodium 142 mmol/L (137-145); Total Bilirubin 0.3 mg/dL (0.2-1.3)
[2017-02-24 09:14] LABS: Partial Thromboplastin Time 26.8 sec (22.0-30.0); Prothrombin Time 10.2 sec (9.0-12.0)
--- NOTE | 2017-02-24 09:14 | XR ---
EXAMINATION TYPE: XR chest 2V DATE OF EXAM: 02/24/2017 COMPARISON: 10/16/2016 HISTORY: 47-year-old female with chest pain TECHNIQUE: PA and lateral views FINDINGS: The heart is normal size. Aorta and pulmonary vasculature within normal limits. Some strandy atelecta sis at the left base similar to prior. Mild interstitial prominence is also unchanged. No consolidati on or pleural effusion seen. ACDF hardware. IMPRESSION: Some strandy left basilar atelectasis. No acute process seen.
[2017-02-24 09:25] LABS: Creatine Kinase 27 U/L (30-135)
[2017-02-24 09:37] LABS: Creatine Kinase MB 0.4 ng/mL (0.0-2.4); Troponin I <0.012 ng/mL (0.000-0.034)
[2017-02-24] MEDS ORDERED: NITROGLYCERIN SL TABS 0.4 MG TAB SUBLINGUAL STA (10:01)
[2017-02-24] MEDS ORDERED: ASPIRIN 325 MG TAB PO STA (10:01)
[2017-02-24] MEDS ORDERED: ONDANSETRON 4 MG/2 ML VIAL IVP PRN (10:46)
[2017-02-24] MEDS ORDERED: NALOXONE 0.4 MG/ML 1 ML VIAL IV PRN (10:46)
[2017-02-24] MEDS: HYDROmorphone 1 MG/ML 1 ML SYRINGE IV PRN ×2 (11:01→14:15)
[2017-02-24] MEDS ORDERED: LORazepam 2 MG/ML SYRINGE IV STA (11:23)
[2017-02-24] MEDS ORDERED: CYCLOBENZAPRINE 10 MG TAB PO STA (14:57)
[2017-02-24] MEDS ORDERED: methylPREDNISolone SOD SUCCI 125 MG/2 ML VIAL IV STA (15:00)
--- NOTE | 2017-02-24 15:35 | P.HPIM ---
History of Present Illness H&P Date: 02/24/17 Chief Complaint: Back pain and chest pain This is a 47-year-old female that was recently admitted to the hospital in September 2016 At that time patient was noted to have chest pain he was attribute it to be secondary to GERD. Patient was recommended to have an outpatient stress is however did not follow up without Patient comes in the hospital with complaints of severe lumbar pain for the last 4 days that has progressively gotten worse thereafter patient noted some chest pain midsternal location worse with palpation states that she feels that someone is sitting on her without any radiating symptoms no alleviating or exacerbating factors as far EKG in the emergency room does not reveal ST-T wave changes Patient denies having any headaches blurry vision abdominal pain diarrhea nausea vomiting States that she smokes about 5 cigarettes daily at this time Review of Systems All systems: negative (Noted in HPI) Past Medical History Past Medical History: GERD/Reflux, Hypertension Additional Past Medical History / Comment(s): CHRONIC BACK PAIN. INSOMNIA. SHINGLES 2009. BROCHITIS. LUMBAR DDD/SACRALITIS, HIATAL HERNIA, "RT LEG GOES OUT ON ME SOMETIMES" History of Any Multi-Drug Resistant Organisms: MRSA Date of last positivie culture/infection: 09/22/2009 MDRO Source:: neck Past Surgical History: Appendectomy, Back Surgery, Section, Cholecystectomy, Hernia Repair Additional Past Surgical History / Comment(s): CERVICAL FUSION/ PLATE. EGD. Hiatal Hernia. RADIO FREQUENCY ABLATION(LUMBAR) Past Anesthesia/Blood Transfusion Reactions: No Reported Reaction Additional Past Anesthesia/Blood Transfusion Reaction / Comment(s): CLAUSTROPHOBIA Smoking Status: Current every day smoker - Past Family History Father Family Medical History: Cancer Additional Family Medical History / Comment(s): Father at age 48 from lung cancer. Mother Family Medical History: Congestive Heart Failure (CHF), CVA/TIA Additional Family Medical History / Comment(s): Mother is alive at age 68. She has suffered from a CVA and has chronic back problems. Patient has 2 brothers and 4 sisters with no major medical problems. Medications and Allergies Home Medications Medication Instructions Recorded Confirmed Type Cholecalciferol [Vitamin D3] 1,000 unit PO DAILY 06/26/16 02/24/17 History Dextroamphetamine/Amphetamine 30 mg PO QAM 07/16/16 02/24/17 History [Adderall] Doxepin [SINEquan] 25 mg PO HS 01/17/17 02/24/17 History Atenolol [Tenormin] 50 mg PO DAILY 02/24/17 02/24/17 History clonazePAM [KlonoPIN] 0.5 mg PO BID 02/24/17 02/24/17 History Allergies Allergy/AdvReac Type Severity Reaction Status Date / Time ketorolac [From Toradol] Allergy Rash/Hives Verified 02/24/17 08:24 shellfish derived Allergy Anaphylaxis Verified 02/24/17 08:50 tramadol [From Ultram] Allergy Rash/Hives Verified 02/24/17 08:50 Physical Exam Vitals: Vital Signs Temp Pulse Resp BP BP Pulse Ox 02/24/17 14:57 98.2 F 16 136/83 97 02/24/17 14:30 98.6 F 83 20 129/81 98 02/24/17 14:18 98.6 F 83 20 129/81 98 02/24/17 12:14 79 18 115/88 99 02/24/17 11:06 89 18 131/75 98 02/24/17 10:19 89 18 122/81 98 02/24/17 09:55 91 22 109/60 99 02/24/17 09:10 100 22 120/83 100 02/24/17 08:45 110 H 24 135/101 99 02/24/17 08:16 97.0 F L 112 H 20 135/93 100 Intake and Output 02/24/17 02/24/17 02/24/17 06:59 14:59 22:59 Other: Weight 70.5 kg Patient Weight 02/25/17 06:59 Weight 70.5 kg Physical exam Gen. appearance oriented 3 in no distress Neck is supple no JVD Lungs good air entry clear to auscultation no rhonchi or wheezing Heart S1-S2 heard regular rate and rhythm no murmurs appreciated reducible chest pain in the midsternal location Musculoskeletal a significant parasternal tenderness around the lumbar spine bilaterally around L2-L3 region Abdomen is soft nontender no organomegaly bowel sounds are intact Neurologically cranial nerves II-12 grossly intact no focal motor or sensory deficits noted Skin no abnormalities appreciated Results CBC & Chem 7: 02/24/17 08:45 02/24/17 08:45 Labs: Abnormal Lab Results - Last 24 Hours (Table) 02/24/17 02/24/17 02/24/17 Range/Units 08:45 08:45 08:45 Hgb 16.9 H (11.4-16.0) gm/dL Hct 49.6 H (34.0-46.0) % BUN 5 L (7-17) mg/dL Glucose 121 H (74-99) mg/dL Calcium 10.8 H (8.4-10.2) mg/dL Total Creatine Kinase 27 L (30-135) U/L Assessment and Plan Plan: #1 atypical chest pain is appears to be musculoskeletal however patient does have some risk factors we'll have cardiology evaluate the patient. #2 para spinal muscle spasms #3 ongoing tobacco use #4 anxiety #5 degenerative disc disease in the lumbar spine #6 hiatal hernia #7 hypertension. #8 GERD Plan We'll start the patient on Flexeril. One dose of Solu-Medrol Continue telemetry monitoring ACS should be ruled out
[2017-02-24] MEDS ORDERED: DIAZEPAM 5 MG TAB PO STA (15:57)
[2017-02-24] MEDS: GABAPENTIN 300 MG CAP PO SCH ×2 (16:13→21:11)
[2017-02-24] MEDS: MORPHINE SULFATE 4 MG/ML SYRINGE IVP PRN ×2 (16:17→21:34)
[2017-02-24 16:29] LABS: Creatine Kinase 39 U/L (30-135)
[2017-02-24 16:40] LABS: Creatine Kinase MB 0.4 ng/mL (0.0-2.4)
[2017-02-24] MEDS: NITROGLYCERIN OINT 1 INCH/GM PACKET TOPICAL SCH ×2 (16:51→18:00)
[2017-02-24 17:03] LABS: Troponin I <0.012 ng/mL (0.000-0.034)
[2017-02-24] MEDS: KETOROLAC 30 MG/ML 1 ML VIAL IVP SCH ×2 (17:49→23:46)
[2017-02-24] MEDS: oxyCODONE-APAP 7.5-325MG 1 EACH TAB PO PRN (19:18)
[2017-02-24] MEDS: clonazePAM 0.5 MG TAB PO SCH (19:18)
[2017-02-24] MEDS ORDERED: DOXEPIN 25 MG CAP PO SCH (21:00)
[2017-02-24 21:03] LABS: Appearance,Urine Cloudy (Clear); Bacteria,Urine Rare /hpf; Bilirubin,Urine Negative (Negative); Glucose,Urine (UA) Negative (Negative); Ketones,Urine Negative (Negative); Leukocyte Esterase,Urine Negative (Negative); Mucus,Urine Occasional /hpf; Nitrite,Urine Negative (Negative); Particle Count 5555; Protein,Urine Negative (Negative); RBC,Urine 6 /hpf (0-5); Specific Gravity,Urine 1.015 (1.001-1.035); Squamous Epithelial Cell,Urine 4 /hpf (0-4); UA Billing (MACRO vs. MICRO) MICRO; Urobilinogen,Urine <2.0 mg/dL (<2.0); WBC,Urine 2 /hpf (0-5)
[2017-02-24 22:04] LABS: Creatine Kinase 30 U/L (30-135)
[2017-02-24 22:17] LABS: Creatine Kinase MB 0.5 ng/mL (0.0-2.4); Troponin I <0.012 ng/mL (0.000-0.034)
[2017-02-25] MEDS: NITROGLYCERIN OINT 1 INCH/GM PACKET TOPICAL SCH ×3 (00:28→11:49)
[2017-02-25] MEDS: MORPHINE SULFATE 4 MG/ML SYRINGE IVP PRN ×3 (01:45→11:44)
[2017-02-25 02:39] LABS: Cholesterol 240 mg/dL (<200); HDL Cholesterol 53 mg/dL (40-60)
[2017-02-25] MEDS: oxyCODONE-APAP 7.5-325MG 1 EACH TAB PO PRN ×2 (04:48→14:11)
[2017-02-25] MEDS: KETOROLAC 30 MG/ML 1 ML VIAL IVP SCH ×2 (06:21→11:43)
[2017-02-25 07:22] VITALS: RESP 16
[2017-02-25] MEDS ORDERED: ATENOLOL 50 MG TAB PO SCH (09:00)
[2017-02-25] MEDS ORDERED: ASPIRIN 325 MG TAB PO SCH (09:00)
[2017-02-25] MEDS ORDERED: NON-FORMULARY DRUG (Dextroamphetamine/Amphetamine [Adderall] 30 MG) PO SCH (09:00)
[2017-02-25] MEDS ORDERED: DOBUTamine DRIP for NUC MED 500 MG in DEXTROSE/WATER 1 250ML.BAG IV ONE (09:47)
[2017-02-25] MEDS ORDERED: ATORVASTATIN 20 MG TAB PO SCH (10:00)
[2017-02-25] MEDS: GABAPENTIN 300 MG CAP PO SCH (10:26)
[2017-02-25] MEDS: clonazePAM 0.5 MG TAB PO SCH (10:26)
--- NOTE | 2017-02-25 12:49 | P.CRDCN ---
History of Present Illness Consult date: 02/25/17 History of present illness: This is a 47-year-old female presented to the emergency department with complaints of mid back pain. She states the pain moved around to her chest mid sternal and described as heaviness. She also complains of nausea and vomiting. She denies shortness of breath, dizziness, palpitations or diaphoresis. She was seen and examined today resting in bed with ongoing complaints of nausea. She is still complaining of extreme ane in the mid back. She was recently here in September with similar complaints and outpatient stress testing was recommended. She has not followed up and gotten any stress test. Her EKG shows some T- wave inversion in leads V1 through 3 which is consistent with her previous EKG. There is no acute ST changes. Troponin is negative 3. Cholesterol elevated at 240, LDL 129 and triglycerides 288. Hemoglobin is 16.9 and hematocrit 49.6. She is not on any cholesterol medication at this time. She takes atenolol 50 mg by mouth daily. As well as Adderall 30 mg, doxepin 25 mg, gabapentin 300 mg , Klonopin 0.5 mg and Percocet 7.5/325. Her last echocardiogram was performed in June of last year shows a preserved left ventricular function with an ejection fraction of 55-60%, mild mitral regurg, mild tricuspid regurg, right ventricular systolic pressure 8.46 mmHg. Review of Systems REVIEW OF SYSTEMS: Patient denies any chest discomfort. No shortness of breath. No diaphoresis. He denies headache, dizziness, blurred vision, double vision. No dyspnea on exertion. Patient denies any stomach discomfort. No hematochezia. No hematemesis. Denies any black stools or blood in his stools. No syncope. No palpitations. No cough. No recent fever or chills. Denies dysuria or hematuria. No muscle weakness or numbness. Past Medical History Past Medical History: GERD/Reflux, Hypertension Additional Past Medical History / Comment(s): CHRONIC BACK PAIN. INSOMNIA. SHINGLES 2010. BROCHITIS. LUMBAR DDD/SACRALITIS, HIATAL HERNIA, "RT LEG GOES OUT ON ME SOMETIMES" History of Any Multi-Drug Resistant Organisms: MRSA Date of last positivie culture/infection: 09/22/2009 MDRO Source:: neck Past Surgical History: Appendectomy, Back Surgery, Section, Cholecystectomy, Hernia Repair Additional Past Surgical History / Comment(s): CERVICAL FUSION/ PLATE. EGD. Hiatal Hernia. RADIO FREQUENCY ABLATION(LUMBAR) Past Anesthesia/Blood Transfusion Reactions: No Reported Reaction Additional Past Anesthesia/Blood Transfusion Reaction / Comment(s): CLAUSTROPHOBIA Smoking Status: Current every day smoker - Past Family History Father Family Medical History: Cancer Additional Family Medical History / Comment(s): Father at age 48 from lung cancer. Mother Family Medical History: Congestive Heart Failure (CHF), CVA/TIA Additional Family Medical History / Comment(s): Mother is alive at age 68. She has suffered from a CVA and has chronic back problems. Patient has 2 brothers and 4 sisters with no major medical problems. Medications and Allergies Home Medications Medication Instructions Recorded Confirmed Type Cholecalciferol [Vitamin D3] 1,000 unit PO DAILY 06/26/16 02/24/17 History Dextroamphetamine/Amphetamine 30 mg PO QAM 07/16/16 02/24/17 History [Adderall] Doxepin [SINEquan] 25 mg PO HS 01/17/17 02/24/17 History Atenolol [Tenormin] 50 mg PO DAILY 02/24/17 02/24/17 History clonazePAM [KlonoPIN] 0.5 mg PO BID 02/24/17 02/24/17 History Allergies Allergy/AdvReac Type Severity Reaction Status Date / Time ibuprofen Allergy Rash/Hives Verified 02/24/17 17:49 shellfish derived Allergy Anaphylaxis Verified 02/24/17 08:50 tramadol [From Ultram] Allergy Rash/Hives Verified 02/24/17 08:50 Physical Exam Vitals: Vital Signs Temp Pulse Pulse Pulse Resp BP BP 02/25/17 07:48 59 L 16 02/25/17 07:21 98.1 F 59 L 16 144/87 02/25/17 04:00 98 F 55 L 18 133/73 02/25/17 00:00 66 18 02/24/17 23:14 63 18 154/89 02/24/17 20:34 02/24/17 19:44 98 F 87 18 140/94 02/24/17 19:28 74 16 02/24/17 16:00 16 02/24/17 15:47 16 02/24/17 14:57 98.2 F 16 136/83 02/24/17 14:30 98.6 F 83 20 129/81 02/24/17 14:18 98.6 F 83 20 129/81 02/24/17 12:14 79 18 115/88 02/24/17 11:06 89 18 131/75 02/24/17 10:19 89 18 122/81 02/24/17 09:55 91 22 109/60 02/24/17 09:10 100 22 120/83 02/24/17 08:45 110 H 24 135/101 Pulse Ox 02/25/17 07:48 02/25/17 07:21 97 02/25/17 04:00 98 02/25/17 00:00 02/24/17 23:14 97 02/24/17 20:34 94 L 02/24/17 19:44 97 02/24/17 19:28 02/24/17 16:00 02/24/17 15:47 02/24/17 14:57 97 02/24/17 14:30 98 02/24/17 14:18 98 02/24/17 12:14 99 02/24/17 11:06 98 02/24/17 10:19 98 02/24/17 09:55 99 02/24/17 09:10 100 02/24/17 08:45 99 Intake and Output 02/24/17 02/25/17 02/25/17 22:59 06:59 14:59 Other: Voiding Method Toilet Toilet Toilet # Voids 2 2 Weight 70.5 kg GENERAL: This is a 47-year-old female in no apparent distress at the time of my examination. Reproducible mid back pain. HEENT: Head is atraumatic, normocephalic. Pupils are equal, round. Sclerae anicteric. Conjunctivae are clear. Mucous membranes of the mouth are moist. Neck is supple. There is no jugular venous distention. No carotid bruit is heard. LUNGS: Clear to auscultation and precussion. No chest wall tenderness is noted on palpation or with deep breathing. HEART: Regular rate and rhythm without murmurs, rubs or gallops. S1 and S2 heard. ABDOMEN: Soft, nontender. Bowel sounds are heard. No organomegaly noted. EXTREMITIES: 2+ peripheral pulses with no evidence of peripheral edema and no calf tenderness noted. NEUROLOGIC: Patient is awake, alert and oriented x3. Results 02/24/17 08:45 02/24/17 08:45 Cardiac Enzymes 02/24/17 02/24/17 02/24/17 Range/Units 08:45 08:45 15:31 AST 19 (14-36) U/L CK-MB (CK-2) 0.4 0.4 (0.0-2.4) ng/mL Troponin I <0.012 <0.012 (0.000-0.034) ng/mL 02/24/17 Range/Units 21:10 AST (14-36) U/L CK-MB (CK-2) 0.5 (0.0-2.4) ng/mL Troponin I <0.012 (0.000-0.034) ng/mL Coagulation 02/24/17 Range/Units 08:45 PT 10.2 (9.0-12.0) sec APTT 26.8 (22.0-30.0) sec Lipids 02/24/17 Range/Units 08:45 Triglycerides 288 H (<150) mg/dL Cholesterol 240 H (<200) mg/dL HDL Cholesterol 53 (40-60) mg/dL CBC 02/24/17 Range/Units 08:45 WBC 10.0 (3.8-10.6) k/uL RBC 5.15 (3.80-5.40) m/uL Hgb 16.9 H (11.4-16.0) gm/dL Hct 49.6 H (34.0-46.0) % Plt Count 410 (150-450) k/uL Comprehensive Metabolic Panel 02/24/17 Range/Units 08:45 Sodium 142 (137-145) mmol/L Potassium 4.5 (3.5-5.1) mmol/L Chloride 106 (98-107) mmol/L Carbon Dioxide 25 (22-30) mmol/L BUN 5 L (7-17) mg/dL Creatinine 0.77 (0.52-1.04) mg/dL Glucose 121 H (74-99) mg/dL Calcium 10.8 H (8.4-10.2) mg/dL AST 19 (14-36) U/L ALT 51 (9-52) U/L Alkaline Phosphatase 117 (38-126) U/L Total Protein 8.0 (6.3-8.2) g/dL Albumin 4.5 (3.5-5.0) g/dL Current Medications Generic Name Dose Route Start Last Admin Trade Name Freq PRN Reason Stop Dose Admin Aspirin 325 mg 02/25/17 09:00 Aspirin PO DAILY [facility] Atenolol 50 mg 02/25/17 09:00 Tenormin PO DAILY [facility] Clonazepam 0.5 mg 02/24/17 21:00 02/24/17 19:18 Klonopin PO 0.5 mg BID [facility] Administration Doxepin HCl 25 mg 02/24/17 21:00 02/24/17 19:18 Sinequan PO 25 mg HS [facility] Administration Gabapentin 300 mg 02/24/17 16:00 02/24/17 21:11 Neurontin PO 300 mg TID [facility] Administration Ketorolac Tromethamine 30 mg 02/24/17 18:00 02/25/17 06:21 Toradol IVP 02/28/17 14:55 30 mg Q6HR [facility] Administration Morphine Sulfate 4 mg 02/24/17 14:56 02/25/17 08:01 Morphine Sulfate (Inj) IVP 4 mg Q6H PRN Administration Pain Naloxone HCl 0.2 mg 02/24/17 10:46 Narcan IV Q2M PRN Opioid Reversal Nitroglycerin 1 inch 02/24/17 12:30 02/25/17 06:24 Nitro-Bid Oint TOPICAL Not Given Q6HR [facility] Ondansetron HCl 4 mg 02/24/17 10:46 Zofran IVP Q8HR PRN Nausea And Vomiting Oxycodone/Acetaminophen 1 each 02/24/17 06:00 02/25/17 04:48 Percocet 7.5-325 PO 1 each Q8HR PRN Administration Pain Intake and Output 02/24/17 02/25/17 02/25/17 22:59 06:59 14:59 Other: Voiding Method Toilet Toilet Toilet # Voids 2 2 Weight 70.5 kg 02/24/17 08:45 02/24/17 08:45 - EKG Interpretation EKG: sinus rhythm, normal QRS, normal ST/T, no acute changes Assessment and Plan Plan: ASSESSMENT 1. Musculoskeletal chest wall pain 2. Chronic back pain 3. Essential hypertension 4. GERD 5. Chronic tobacco abuse 6. Hyperlipidemia PLAN Patient's presentation and pain is not indicative of an acute coronary syndrome. Her back pain should be managed medically. At this time we will not undergo any stress testing due to patient's ineffective pain control. Once her pain is under control and more tolerable we will recommend a stress test. This can be done either as an inpatient or as an outpatient. We will add Lipitor 20 mg by mouth daily to her medication regimen for elevated cholesterol. Nurse Practitioner note has been reviewed, I agree with a documented findings and plan of care. Patient was seen and examined.
[2017-02-25 14:52] VITALS: BMI 29.3
--- NOTE | 2017-02-25 16:06 | P.DS ---
Providers Date of admission: 02/24/17 11:56 Attending physician: Zia Shelby MD Consults: 02/24/17 10:46 Consult Physician Stat Consulting Provider: [facility] Consult Reason/Comments: chest pain Do you want consulting provider notified?: Yes Primary care physician: Stated None Hospital Course: This is a 47-year-old female that was recently admitted to the hospital in September 2016 At that time patient was noted to have chest pain he was attribute it to be secondary to GERD. Patient was recommended to have an outpatient stress is however did not follow up without Patient comes in the hospital with complaints of severe lumbar pain for the last 4 days that has progressively gotten worse thereafter patient noted some chest pain midsternal location worse with palpation states that she feels that someone is sitting on her without any radiating symptoms no alleviating or exacerbating factors as far EKG in the emergency room does not reveal ST-T wave changes Patient denies having any headaches blurry vision abdominal pain diarrhea nausea vomiting States that she smokes about 5 cigarettes daily at this time 2016 Patient was not able to tolerate a stress test outpatient stress is recommended Patient's chest pain is resolved however main complaint is her back pain Physical exam Gen. appearance oriented 3 in no distress Neck is supple no JVD Lungs good air entry clear to auscultation no rhonchi or wheezing Heart S1-S2 heard regular rate and rhythm no murmurs appreciated reducible chest pain in the midsternal location Musculoskeletal a significant parasternal tenderness around the lumbar spine bilaterally around L2-L3 region Abdomen is soft nontender no organomegaly bowel sounds are intact Neurologically cranial nerves II-12 grossly intact no focal motor or sensory deficits noted Skin no abnormalities appreciated Assessment and Plan Plan: #1 atypical chest pain is appears to be musculoskeletal however patient does have some risk factors we'll have cardiology evaluate the patient. #2 para spinal muscle spasms Patient states that she is not able to tolerate muscle relaxants. Will be discharged on Valium and morphine XL 15mg by mouth twice a day patient has Roundup when necessary basis for 5 days only patient is to follow-up with her pain specialist thereafter this is to help with the Spinal muscle spasms #3 ongoing tobacco use #4 anxiety #5 degenerative disc disease in the lumbar spine #6 hiatal hernia #7 hypertension. #8 GERD Patient Condition at Discharge: Stable Plan - Discharge Summary New Discharge Prescriptions: New Diazepam [Valium] 5 mg PO TID #15 tab Morphine Sulfate ER [Ms Contin] 15 mg PO Q12HR #10 tab Continue Cholecalciferol [Vitamin D3] 1,000 unit PO DAILY Dextroamphetamine/Amphetamine [Adderall] 30 mg PO QAM Doxepin [SINEquan] 25 mg PO HS oxyCODONE HCL/ACETAMINOPHEN [Percocet 7.5-325 mg] 1 tab PO Q8HR PRN #90 tab PRN Reason: Pain Gabapentin [Neurontin] 300 mg PO TID #90 clonazePAM [KlonoPIN] 0.5 mg PO BID Atenolol [Tenormin] 50 mg PO DAILY Discharge Medication List Cholecalciferol [Vitamin D3] 1,000 unit PO DAILY 06/26/16 [History] Dextroamphetamine/Amphetamine [Adderall] 30 mg PO QAM 07/16/16 [History] Doxepin [SINEquan] 25 mg PO HS 01/17/17 [History] Gabapentin [Neurontin] 300 mg PO TID #90 02/16/17 [Rx] oxyCODONE HCL/ACETAMINOPHEN [Percocet 7.5-325 mg] 1 tab PO Q8HR PRN #90 tab [Rx] Atenolol [Tenormin] 50 mg PO DAILY 02/24/17 [History] clonazePAM [KlonoPIN] 0.5 mg PO BID 02/24/17 [History] Diazepam [Valium] 5 mg PO TID #15 tab 02/25/17 [Rx] Morphine Sulfate ER [Ms Contin] 15 mg PO Q12HR #10 tab 02/25/17 [Rx] Follow up Appointment(s)/Referral(s): Axel Daugherty MD [STAFF PHYSICIAN] - 1 Week None,Stated [Primary Care Provider] - 1-2 days Discharge Disposition: HOME SELF-CARE
[2017-02-25 16:10] VITALS: BP 115/68; PULSE 66; TEMP 98.1
== END 2017-02-25 16:25 | disposition home or self-care (01) ==
LOC: EC 08:09 → 3OBS 11:56
PROVIDERS: ADMIT Internal Medicine; ATTEND Internal Medicine
DX: R07.89 Other chest pain (principal); K21.9 Gastro-esophageal reflux disease without esophagitis; F17.210 Nicotine dependence, cigarettes, uncomplicated; M51.36 Other intervertebral disc degeneration, lumbar region; I10 Essential (primary) hypertension; R19.7 Diarrhea, unspecified; R11.2 Nausea with vomiting, unspecified; R06.02 Shortness of breath; G47.00 Insomnia, unspecified; E78.5 Hyperlipidemia, unspecified; F40.240 Claustrophobia; F90.9 Attention-deficit hyperactivity disorder, unspecified type; G89.29 Other chronic pain; M62.830 Muscle spasm of back; Z79.899 Other long term (current) drug therapy; Z88.5 Allergy status to narcotic agent; Z91.013 Allergy to seafood; Z86.14 Personal history of Methicillin resistant Staphylococcus aureus infection; Z80.1 Family history of malignant neoplasm of trachea, bronchus and lung; Z82.49 Family history of ischemic heart disease and other diseases of the circulatory system
CPT/HCPCS: 96375 ×2; 96376 ×2; 96361; 96374; 99284; 36415; 94760; 93005; 85379; 83880; 80061; 80053; 82150; 82550; 82553; 83690; 83735; 84484; 85025; 85610; 85730; 81001; 71020; G0378 ×2; J2060; J2270 ×2; J2930; J3360; J2405; J1885 ×2; J1170

== ENCOUNTER 2017-03-03 16:31 | Emergency (ER) | payer OTHER ==
[2017-03-03 16:36] VITALS: TEMP 97
[2017-03-03 17:11] LABS: Basophils # (A) 0.1 k/uL (0-0.2); Basophils % (A) 0 %; CH 32.1; Eosinophils # (A) 0.4 k/uL (0-0.7); Eosinophils % (A) 3 %; HCT 45.5 % (34.0-46.0); HDW 2.41; HGB 15.5 gm/dL (11.4-16.0); Luc % (Auto) 2; Lymphocytes % (A) 22 %; MCH 32.2 pg (25.0-35.0); MCV 94.7 fL (80.0-100.0); Mean Platelet Volume 6.7; Monocytes # (A) 0.8 k/uL (0-1.0); Monocytes % (A) 6 %; Neutrophils # (A) 9.1 k/uL (1.3-7.7); Neutrophils % (A) 67 %; RDW 13.2 % (11.5-15.5); WBC 13.6 k/uL (3.8-10.6); WBC (Perox) 12.98
[2017-03-03 17:20] LABS: ALT 25 U/L (9-52); AST 17 U/L (14-36); Alkaline Phosphatase 100 U/L (38-126); Amylase 36 U/L (30-110); Anion Gap 12 mmol/L; Blood Urea Nitrogen 4 mg/dL (7-17); Calcium 10.2 mg/dL (8.4-10.2); Carbon Dioxide 25 mmol/L (22-30); Chloride 105 mmol/L (98-107); Glucose 88 mg/dL (74-99); Magnesium 1.8 mg/dL (1.6-2.3); Non-African American GFR(MDRD) >60 (>60 ml/min/1.73 sqM); Potassium 3.7 mmol/L (3.5-5.1); Sodium 142 mmol/L (137-145); Total Bilirubin 0.3 mg/dL (0.2-1.3); Total Protein 7.6 g/dL (6.3-8.2)
[2017-03-03 17:28] LABS: Partial Thromboplastin Time 25.6 sec (22.0-30.0); Prothrombin Time 9.9 sec (9.0-12.0)
[2017-03-03 17:29] LABS: Creatine Kinase 26 U/L (30-135)
[2017-03-03 17:42] LABS: Creatine Kinase MB <0.2 ng/mL (0.0-2.4); Troponin I <0.012 ng/mL (0.000-0.034)
--- NOTE | 2017-03-03 17:44 | XR ---
EXAMINATION TYPE: XR chest 2V DATE OF EXAM: 03/03/2017 COMPARISON: Chest x-ray from one week ago. HISTORY: Pain with left arm numbness. TECHNIQUE: Frontal and lateral views of the chest are obtained. FINDINGS: There is some chronic parenchymal change without suspicious new focal airspace opacity, pl eural effusion, or pneumothorax seen. The cardiac silhouette size remains upper limits of normal. An terior fusion plate lower cervical spine is present. Cholecystectomy clips are noted. IMPRESSION: Chronic changes without acute pulmonary process.
--- NOTE | 2017-03-03 17:47 | ED ---
Chest Pain HPI - General Chief Complaint: Chest Pain Stated Complaint: chest pain, lt arm numbness Time Seen by Provider: 03/03/17 16:47 Source: patient, RN notes reviewed Mode of arrival: wheelchair Limitations: no limitations - History of Present Illness Initial Comments: This is a 47-year-old female who states she had the onset about 4 hours ago of some left arm pain and numbness she states it's severe with pain being 8-9/10 in severity. She states it occurred when she was driving her car. She does have a history of plates in her neck. She also history of an PA about 9 months ago. She denies any cough fevers chills or sweats she is a smoker however. Denies any abdominal pain no nausea vomiting or other symptoms. MD Complaint: chest pain, other - Related Data Home Medications Medication Instructions Recorded Confirmed Cholecalciferol [Vitamin D3] 1,000 unit PO DAILY 06/26/16 03/03/17 Dextroamphetamine/Amphetamine 30 mg PO QAM 07/16/16 03/03/17 [Adderall] Doxepin [SINEquan] 25 mg PO HS 01/17/17 03/03/17 Atenolol [Tenormin] 50 mg PO DAILY 02/24/17 03/03/17 clonazePAM [KlonoPIN] 0.5 mg PO BID 02/24/17 03/03/17 Previous Rx's Medication Instructions Recorded Gabapentin [Neurontin] 300 mg PO TID #90 02/16/17 oxyCODONE HCL/ACETAMINOPHEN 1 tab PO Q8HR PRN #90 tab 02/16/17 [Percocet 7.5-325 mg] Diazepam [Valium] 5 mg PO TID #15 tab 02/25/17 Morphine Sulfate ER [Ms Contin] 15 mg PO Q12HR #10 tab 02/25/17 Diazepam [Valium] 5 mg PO TID #15 tab 03/03/17 Morphine Sulfate ER [Ms Contin] 30 mg PO Q8H #15 tab 03/03/17 predniSONE 20 mg PO BID #10 tab 03/03/17 Allergies Allergy/AdvReac Type Severity Reaction Status Date / Time ibuprofen Allergy Rash/Hives Verified 03/03/17 16:52 shellfish derived Allergy Anaphylaxis Verified 03/03/17 16:52 tramadol [From Ultram] Allergy Rash/Hives Verified 03/03/17 16:52 Review of Systems ROS Statement: Those systems with pertinent positive or pertinent negative responses have been documented in the HPI. ROS Other: All systems not noted in ROS Statement are negative. EKG Findings - EKG Results: EKG: interpreted by SILASD EKG shows: ventricular fibrillation (Artifact is present rate was 109 SD interval 150 QRS duration 72 QT since QTC of 326/439 over inferior changes.) Past Medical History Past Medical History: GERD/Reflux, Hypertension Additional Past Medical History / Comment(s): CHRONIC BACK PAIN. INSOMNIA. SHINGLES 2010. BROCHITIS. LUMBAR DDD/SACRALITIS, HIATAL HERNIA, "RT LEG GOES OUT ON ME SOMETIMES" History of Any Multi-Drug Resistant Organisms: MRSA Date of last positivie culture/infection: 09/22/2009 MDRO Source:: neck Past Surgical History: Appendectomy, Back Surgery, Section, Cholecystectomy, Hernia Repair Additional Past Surgical History / Comment(s): CERVICAL FUSION/ PLATE. EGD. Hiatal Hernia. RADIO FREQUENCY ABLATION(LUMBAR) Past Anesthesia/Blood Transfusion Reactions: No Reported Reaction Additional Past Anesthesia/Blood Transfusion Reaction / Comment(s): CLAUSTROPHOBIA Past Psychological History: ADD/ADHD, Anxiety Smoking Status: Current every day smoker Past Alcohol Use History: None Reported Past Drug Use History: None Reported - Past Family History Father Family Medical History: Cancer Additional Family Medical History / Comment(s): Father at age 48 from lung cancer. Mother Family Medical History: Congestive Heart Failure (CHF), CVA/TIA Additional Family Medical History / Comment(s): Mother is alive at age 68. She has suffered from a CVA and has chronic back problems. Patient has 2 brothers and 4 sisters with no major medical problems. General Exam - General Exam Comments Initial Comments: This is a well-developed well-nourished awake alert anxious appearing female Limitations: no limitations General appearance: alert, anxious, in distress Head exam: Present: atraumatic, normocephalic, normal inspection Eye exam: Present: normal appearance, PERRL, EOMI. Absent: scleral icterus, conjunctival injection, periorbital swelling ENT exam: Present: normal exam, mucous membranes moist Neck exam: Present: normal inspection, tenderness (Tender to palpation along the lateral neck musculature and trapezius muscle. This does radiate down left arm). Absent: meningismus, lymphadenopathy Respiratory exam: Present: normal lung sounds bilaterally. Absent: respiratory distress, wheezes, rales, rhonchi, stridor Cardiovascular Exam: Present: normal rhythm, tachycardia, normal heart sounds. Absent: systolic murmur, diastolic murmur, rubs, gallop, clicks GI/Abdominal exam: Present: soft, normal bowel sounds. Absent: distended, tenderness, guarding, rebound, rigid Extremities exam: Present: normal inspection, tenderness, normal capillary refill. Absent: full ROM (Tenderness palpation over the left shoulder she has demonstrate good range of motion of the hand fingers and elbow. Pain with movement of the left shoulder.), pedal edema, joint swelling, calf tenderness Back exam: Present: normal inspection Neurological exam: Present: alert, oriented X3, CN II-XII intact Psychiatric exam: Present: normal affect, normal mood Skin exam: Present: warm, dry, intact, normal color. Absent: rash Course Vital Signs 03/03/17 03/03/17 03/03/17 16:33 17:00 17:30 Temperature 97.0 F L Pulse Rate 116 H 104 H 104 H Respiratory 20 20 20 Rate Blood Pressure 136/95 151/101 142/100 O2 Sat by Pulse 98 98 97 Oximetry 03/03/17 03/03/17 03/03/17 18:00 18:29 20:00 Temperature Pulse Rate 102 H 98 92 Respiratory 18 20 20 Rate Blood Pressure 142/100 149/99 140/93 O2 Sat by Pulse 97 97 98 Oximetry - Reevaluation(s) Reevaluation #1: 03/03/17 18:58 Reevaluation is in the patient showed no change evening after IV pain medication. She now states she's had numbness and pain down her left leg started the same time. She states she forgot to tell staff about this before. Chest Pain MDM - MDM I did review the imaging and reports no acute findings patient did get pain relief finally after the medication was given a long discussion with her regarding findings she does have a follow-up with Dr. Shantanu mckoy one half weeks. She'll be discharged on appropriate medications that worked for her in the past she is follow-up with her doctor return when necessary the chest pain is chest wall pain the presentation is consistent with radiculopathy. She does have no focal deficits Disposition Clinical Impression: Radicular pain of left lower extremity, Radicular pain in left arm, Chest wall syndrome Disposition: HOME SELF-CARE Condition: Good Instructions: Costochondritis (ED), Lumbar Radiculopathy (ED), Cervical Radiculopathy (ED) Prescriptions: Diazepam [Valium] 5 mg PO TID #15 tab Morphine Sulfate ER [Ms Contin] 30 mg PO Q8H #15 tab predniSONE 20 mg PO BID #10 tab Referrals: None,Stated [Primary Care Provider] - 1-2 days
[2017-03-03] MEDS ORDERED: HYDROmorphone 1 MG/ML 1 ML SYRINGE IVP STA ×2 (18:04→18:58)
[2017-03-03] MEDS ORDERED: LORazepam 2 MG/ML SYRINGE IV STA (18:04)
[2017-03-03] MEDS ORDERED: methylPREDNISolone SOD SUCCI 125 MG/2 ML VIAL IV STA (18:58)
--- NOTE | 2017-03-03 20:12 | CT ---
EXAMINATION TYPE: CT brain wo con DATE OF EXAM: 03/03/2017 COMPARISON: NONE HISTORY: Left sided numbness today. CT DLP: 1082.00 mGycm. Automated Exposure Control for Dose Reduction was Utilized. TECHNIQUE: CT scan of the head is performed without contrast. FINDINGS: There is no acute intracranial hemorrhage, mass effect, or midline shift identified. The ventricles and sulci are within normal limits in size. The globes are intact and the visualized sin uses are clear. IMPRESSION: No acute intracranial hemorrhage, mass effect, or midline shift is seen. If clinical concern for acute stroke persists further investigation with MRI study may be warranted.
[2017-03-03 21:28] VITALS: RESP 18
[2017-03-03 21:30] VITALS: BP 133/89; PULSE 85
== END 2017-03-03 21:43 | disposition home or self-care (01) ==
LOC: EC 16:31
DX: R07.1 Chest pain on breathing (principal); M54.10 Radiculopathy, site unspecified; I10 Essential (primary) hypertension; F90.9 Attention-deficit hyperactivity disorder, unspecified type; F41.9 Anxiety disorder, unspecified; F17.200 Nicotine dependence, unspecified, uncomplicated; Z79.899 Other long term (current) drug therapy; Z88.6 Allergy status to analgesic agent; Z91.013 Allergy to seafood
CPT/HCPCS: 36415; 93005; 85379; 83880; 80053; 82150; 82550; 82553; 83690; 83735; 84484; 85025; 85610; 85730; 71020; 70450; 99285; 96374; 96375 ×2; 96376; J2060; J2930; J1170

== ENCOUNTER 2017-03-25 11:01 | Observation (INO) | payer OTHER ==
--- NOTE | 2017-03-25 11:18 | ED ---
General Adult HPI - General Chief complaint: Upper Respiratory Infection Stated complaint: cough,diff breathing Time Seen by Provider: 03/25/17 11:15 Source: patient, RN notes reviewed Mode of arrival: ambulatory Limitations: no limitations - History of Present Illness Initial comments: This is a 47-year-old female here with multiple medical problems. Patient coming a significant shortness breath cough and congestion worsening over the last 4-5 days but much worse over last 2 days. Patient does suffer from asthma smoker, no travel history no fevers. Again the complaining of increased cough and congestion. No nausea vomiting no fevers. Patient has no significant recent hospitalizations - Related Data Home Medications Medication Instructions Recorded Confirmed Dextroamphetamine/Amphetamine 30 mg PO QAM 07/16/16 03/25/17 [Adderall] Atenolol [Tenormin] 50 mg PO DAILY 02/24/17 03/25/17 clonazePAM [KlonoPIN] 0.5 mg PO BID 02/24/17 03/25/17 oxyCODONE HCL/ACETAMINOPHEN 1 tab PO TID 03/25/17 03/25/17 [Percocet 7.5-325 mg] Previous Rx's Medication Instructions Recorded Gabapentin [Neurontin] 300 mg PO TID #90 02/16/17 Allergies Allergy/AdvReac Type Severity Reaction Status Date / Time ibuprofen Allergy Rash/Hives Verified 03/25/17 11:18 shellfish derived Allergy Anaphylaxis Verified 03/25/17 11:18 tramadol [From Ultram] Allergy Rash/Hives Verified 03/25/17 11:18 Review of Systems ROS Statement: Those systems with pertinent positive or pertinent negative responses have been documented in the HPI. ROS Other: All systems not noted in ROS Statement are negative. Past Medical History Past Medical History: GERD/Reflux, Hypertension Additional Past Medical History / Comment(s): CHRONIC BACK PAIN. INSOMNIA. SHINGLES 2010. BROCHITIS. LUMBAR DDD/SACRALITIS, HIATAL HERNIA, "RT LEG GOES OUT ON ME SOMETIMES" History of Any Multi-Drug Resistant Organisms: MRSA Date of last positivie culture/infection: 09/22/2009 MDRO Source:: neck Past Surgical History: Appendectomy, Back Surgery, Section, Cholecystectomy, Hernia Repair Additional Past Surgical History / Comment(s): CERVICAL FUSION/ PLATE. EGD. Hiatal Hernia. RADIO FREQUENCY ABLATION(LUMBAR) Past Anesthesia/Blood Transfusion Reactions: No Reported Reaction Additional Past Anesthesia/Blood Transfusion Reaction / Comment(s): CLAUSTROPHOBIA Past Psychological History: ADD/ADHD, Anxiety Smoking Status: Current every day smoker Past Alcohol Use History: None Reported Past Drug Use History: None Reported - Past Family History Father Family Medical History: Cancer Additional Family Medical History / Comment(s): Father at age 48 from lung cancer. Mother Family Medical History: Congestive Heart Failure (CHF), CVA/TIA Additional Family Medical History / Comment(s): Mother is alive at age 68. She has suffered from a CVA and has chronic back problems. Patient has 2 brothers and 4 sisters with no major medical problems. General Exam Limitations: no limitations General appearance: alert, in no apparent distress, anxious Head exam: Present: atraumatic, normocephalic, normal inspection Eye exam: Present: normal appearance, PERRL, EOMI. Absent: scleral icterus, conjunctival injection, periorbital swelling ENT exam: Present: normal exam, mucous membranes moist Neck exam: Present: normal inspection. Absent: tenderness, meningismus, lymphadenopathy Respiratory exam: Present: normal lung sounds bilaterally, wheezes, accessory muscle use, decreased breath sounds, prolonged expiratory. Absent: respiratory distress, rales, rhonchi, stridor Cardiovascular Exam: Present: normal rhythm, tachycardia, normal heart sounds. Absent: systolic murmur, diastolic murmur, rubs, gallop, clicks GI/Abdominal exam: Present: soft, normal bowel sounds. Absent: distended, tenderness, guarding, rebound, rigid Extremities exam: Present: normal inspection, full ROM, normal capillary refill. Absent: tenderness, pedal edema, joint swelling, calf tenderness Back exam: Present: normal inspection Neurological exam: Present: alert, oriented X3, CN II-XII intact Psychiatric exam: Present: normal affect, normal mood Skin exam: Present: warm, dry, intact, normal color. Absent: rash Course Vital Signs 03/25/17 03/25/17 03/25/17 11:06 11:28 12:09 Temperature 98.1 F Pulse Rate 119 H 105 H Respiratory 22 22 Rate Blood Pressure 139/101 O2 Sat by Pulse 99 Oximetry 03/25/17 03/25/17 12:23 12:54 Temperature Pulse Rate 112 H 114 H Respiratory Rate Blood Pressure O2 Sat by Pulse Oximetry - Reevaluation(s) Reevaluation #1: 03/25/17 13:04 Patient has mild improvement with breathing treatments and symptom control EKG Findings - EKG Comments: EKG Findings:: EKG shows sinus tachycardia rate of 109, ID 150, QRS 74, QTc 457 Medical Decision Making - Medical Decision Making 1989 reevaluation of COPD exacerbation severe COPD exacerbation with some anxiety, patient be admitted for continued breathing treatments - Lab Data Result diagrams: 03/25/17 12:24 03/25/17 12:24 Lab Results 03/25/17 03/25/17 03/25/17 Range/Units 12:24 12:24 12:24 WBC 11.8 H (3.8-10.6) k/uL RBC 5.10 (3.80-5.40) m/uL Hgb 16.4 H (11.4-16.0) gm/dL Hct 48.9 H (34.0-46.0) % MCV 95.7 (80.0-100.0) fL MCH 32.1 (25.0-35.0) pg MCHC 33.5 (31.0-37.0) g/dL RDW 13.1 (11.5-15.5) % Plt Count 517 H (150-450) k/uL Neutrophils % 75 % Lymphocytes % 15 % Monocytes % 6 % Eosinophils % 2 % Basophils % 0 % Neutrophils # 8.8 H (1.3-7.7) k/uL Lymphocytes # 1.7 (1.0-4.8) k/uL Monocytes # 0.7 (0-1.0) k/uL Eosinophils # 0.2 (0-0.7) k/uL Basophils # 0.1 (0-0.2) k/uL PT 10.2 (9.0-12.0) sec INR 1.0 (<1.2) APTT 26.8 (22.0-30.0) sec Sodium 142 (137-145) mmol/L Potassium 4.7 (3.5-5.1) mmol/L Chloride 106 (98-107) mmol/L Carbon Dioxide 24 (22-30) mmol/L Anion Gap 12 mmol/L BUN 7 (7-17) mg/dL Creatinine 0.50 L (0.52-1.04) mg/dL Est GFR (MDRD) Af Amer >60 (>60 ml/min/1.73 sqM) Est GFR (MDRD) Non-Af >60 (>60 ml/min/1.73 sqM) Glucose 115 H (74-99) mg/dL Calcium 10.7 H (8.4-10.2) mg/dL Magnesium 2.0 (1.6-2.3) mg/dL Total Bilirubin 0.5 (0.2-1.3) mg/dL AST 17 (14-36) U/L ALT 30 (9-52) U/L Alkaline Phosphatase 150 H (38-126) U/L Total Protein 7.6 (6.3-8.2) g/dL Albumin 4.3 (3.5-5.0) g/dL - Radiology Data Radiology results: report reviewed (Chest x-ray is negative for acute disease), image reviewed Disposition Clinical Impression: Asthmatic bronchitis, COPD exacerbation Disposition[facility] Condition: Fair Referrals: None,Stated [Primary Care Provider] - 1-2 days
[2017-03-25] MEDS ORDERED: SODIUM CHLORIDE 0.9% 500 ML IV STA (11:54)
[2017-03-25] MEDS ORDERED: ALBUTEROL NEBULIZED 2.5 MG/3 ML INHALATION STA (11:54)
[2017-03-25] MEDS ORDERED: SODIUM CHLORIDE 0.9% 1,000 ML IV STA ×2 (11:54)
[2017-03-25] MEDS ORDERED: LORazepam 2 MG/ML SYRINGE IV STA (11:54)
[2017-03-25] MEDS ORDERED: IPRATROPIUM 0.5 MG/2.5 ML NEBU INHALATION STA (11:54)
[2017-03-25] MEDS ORDERED: methylPREDNISolone SOD SUCCI 125 MG/2 ML VIAL IV STA (11:54)
[2017-03-25] MEDS ORDERED: MORPHINE SULFATE 4 MG/ML SYRINGE IVP STA (11:56)
[2017-03-25] MEDS ORDERED: MORPHINE SULFATE 4 MG/ML SYRINGE IVP PRN (11:56)
[2017-03-25] MEDS ORDERED: ONDANSETRON 4 MG/2 ML VIAL IVP PRN (11:56)
[2017-03-25] MEDS ORDERED: AZITHROMYCIN 500 MG in SODIUM CHLORIDE 0.9% 250 ML IVPB STA (11:58)
[2017-03-25] MEDS ORDERED: IPRATROPIUM-ALBUTEROL 3 ML NEB INHALATION SCH (12:00)
[2017-03-25 12:43] LABS: Basophils # (A) 0.1 k/uL (0-0.2); Basophils % (A) 0 %; CH 31.8; CHCM 33.4; Eosinophils # (A) 0.2 k/uL (0-0.7); Eosinophils % (A) 2 %; HCT 48.9 % (34.0-46.0); HDW 2.41; HGB 16.4 gm/dL (11.4-16.0); Luc # (Auto) 0.23; Luc % (Auto) 2; Lymphocytes # (A) 1.7 k/uL (1.0-4.8); Lymphocytes % (A) 15 %; MCH 32.1 pg (25.0-35.0); MCHC 33.5 g/dL (31.0-37.0); MCV 95.7 fL (80.0-100.0); Mean Platelet Volume 6.6; Monocytes # (A) 0.7 k/uL (0-1.0); Monocytes % (A) 6 %; Neutrophils # (A) 8.8 k/uL (1.3-7.7); Neutrophils % (A) 75 %; RDW 13.1 % (11.5-15.5); WBC 11.8 k/uL (3.8-10.6)
[2017-03-25 12:52] LABS: ALT 30 U/L (9-52); AST 17 U/L (14-36); Alkaline Phosphatase 150 U/L (38-126); Anion Gap 12 mmol/L; Blood Urea Nitrogen 7 mg/dL (7-17); Calcium 10.7 mg/dL (8.4-10.2); Carbon Dioxide 24 mmol/L (22-30); Chloride 106 mmol/L (98-107); Glucose 115 mg/dL (74-99); Non-African American GFR(MDRD) >60 (>60 ml/min/1.73 sqM); Partial Thromboplastin Time 26.8 sec (22.0-30.0); Potassium 4.7 mmol/L (3.5-5.1); Prothrombin Time 10.2 sec (9.0-12.0); Sodium 142 mmol/L (137-145); Total Bilirubin 0.5 mg/dL (0.2-1.3); Total Protein 7.6 g/dL (6.3-8.2)
--- NOTE | 2017-03-25 13:05 | XR ---
EXAMINATION TYPE: XR chest 1V portable DATE OF EXAM: 03/25/2017 COMPARISON: 03/03/2017 HISTORY: Shortness of breath TECHNIQUE: Single frontal view of the chest is obtained. FINDINGS: Subsegmental changes at both lung bases. Postsurgical change overlying the cervical spine. No pneumothorax or pleural effusion. Mild central interstitial prominence. IMPRESSION: 1. Basilar subsegmental atelectasis or infiltrate. Interstitial prominence could been the basis of pn eumonitis or mild venous congestion.
[2017-03-25 13:20] LABS: Creatine Kinase 21 U/L (30-135)
[2017-03-25 13:32] LABS: Creatine Kinase MB <0.2 ng/mL (0.0-2.4); Troponin I <0.012 ng/mL (0.000-0.034)
[2017-03-25] MEDS: SODIUM CHLORIDE 0.9% 1,000 ML IV SCH ×2 (14:46→22:00)
[2017-03-25] MEDS: GABAPENTIN 300 MG CAP PO SCH ×2 (16:26→21:34)
[2017-03-25] MEDS: oxyCODONE-APAP 7.5-325MG 1 EACH TAB PO SCH ×2 (17:34→21:34)
[2017-03-25] MEDS: methylPREDNISolone SOD SUCCI 125 MG/2 ML VIAL IV SCH ×2 (17:35→23:52)
[2017-03-25] MEDS: LORazepam 2 MG/ML SYRINGE IV PRN ×2 (17:35→21:51)
[2017-03-25] MEDS: IPRATROPIUM-ALBUTEROL 3 ML NEB INHALATION SCH ×2 (19:41)
[2017-03-25 20:37] LABS: Glucose,Whole Blood 217 mg/dL (75-99)
[2017-03-25] MEDS: clonazePAM 0.5 MG TAB PO SCH (21:34)
[2017-03-25] MEDS: HYDROmorphone 1 MG/ML 1 ML SYRINGE IVP PRN (21:35)
[2017-03-25 22:18] LABS: Hemoglobin A1C 5.6 % (4.2-6.1)
[2017-03-25] MEDS: INSULIN LISPRO (humaLOG) 300 UNIT/3 ML VIAL SQ SCH (22:41)
[2017-03-26] MEDS: HYDROmorphone 1 MG/ML 1 ML SYRINGE IVP PRN ×6 (01:33→21:26)
[2017-03-26] MEDS: LORazepam 2 MG/ML SYRINGE IV PRN ×6 (01:34→21:26)
[2017-03-26] MEDS: PROMETHAZ-COD 6.25-10 MG/5 ML 5 ML CUP PO PRN (04:31)
[2017-03-26] MEDS: methylPREDNISolone SOD SUCCI 125 MG/2 ML VIAL IV SCH ×3 (05:19→17:12)
[2017-03-26 06:47] LABS: Glucose,Whole Blood 134 mg/dL (75-99)
[2017-03-26] MEDS: IPRATROPIUM-ALBUTEROL 3 ML NEB INHALATION SCH ×4 (07:47→21:49)
[2017-03-26] MEDS: oxyCODONE-APAP 7.5-325MG 1 EACH TAB PO SCH ×3 (08:23→21:25)
[2017-03-26] MEDS: ATENOLOL 50 MG TAB PO SCH (08:23)
[2017-03-26] MEDS: clonazePAM 0.5 MG TAB PO SCH ×2 (08:23→20:02)
[2017-03-26] MEDS: INSULIN LISPRO (humaLOG) 300 UNIT/3 ML VIAL SQ SCH ×4 (08:23→21:26)
[2017-03-26] MEDS: ENOXAPARIN 40 MG/0.4 ML SYRINGE SQ SCH (08:24)
[2017-03-26] MEDS: GABAPENTIN 300 MG CAP PO SCH ×3 (08:24→21:25)
[2017-03-26] MEDS ORDERED: NON-FORMULARY DRUG (Dextroamphetamine/Amphetamine [Adderall] 30 MG) PO SCH (09:00)
[2017-03-26] MEDS ORDERED: AZITHROMYCIN 500 MG TAB PO SCH (09:00)
[2017-03-26] MEDS ORDERED: HYDROmorphone 1 MG/ML 1 ML SYRINGE IVP STA (09:40)
[2017-03-26] MEDS ORDERED: AZITHROMYCIN 500 MG in SODIUM CHLORIDE 0.9% 250 ML IVPB SCH (09:45)
[2017-03-26] MEDS ORDERED: RX INFO: IV CONTRAST WAS GIVEN 1 EACH MISC MISCELLANE PRN (09:47)
[2017-03-26 12:07] LABS: Glucose,Whole Blood 125 mg/dL (75-99)
[2017-03-26 12:50] VITALS: BMI 28.7
--- NOTE | 2017-03-26 13:20 | CT ---
EXAMINATION TYPE: CT angio chest DATE OF EXAM: 03/26/2017 COMPARISON: NONE HISTORY: Difficulty breathing rule out pulmonary embolism. CT DLP: 291.8 mGycm. Automated Exposure Control for Dose Reduction was Utilized. CONTRAST: CTA scan of the thorax is performed with IV Contrast, patient injected with 100 mL of Omnipaque 350, pulmonary embolism protocol. MIP Images are created on CT scanner and reviewed. FINDINGS: LUNGS: There is dependent atelectasis in both lungs most prominent in lower lobes with additional angel ear atelectasis seen in the bases near diaphragm. There is mild emphysematous change with apical bleb formation bilaterally. There is nonspecific focal groundglass opacity anteriorly right upper lobe ne ar axial image 34 in which small area of acute infiltrate cannot be excluded. No suspicious nodule or mass is present bilaterally. No pleural effusion or pneumothorax is seen. Tracheobronchial tree is p atent. MEDIASTINUM: There is poor contrast bolus with heterogeneity and most dense contrast noted in the SVC . There is no large saddle central pulmonary embolism or embolism in main right pulmonary artery. Lob ar as well as segmental and subsegmental branches are suboptimally evaluated on this study. There are prominent but subcentimeter paratracheal, pericarinal, and AP window lymph nodes. There are no great er than 1 cm hilar or mediastinal lymph nodes. No pericardial effusion is seen. Heart size is withi n normal limits with prominent pericardial fat pad. Coronary artery calcification is present which is noted marker for coronary artery disease. Some reflux of contrast into IVC and hepatic veins is pres ent. OTHER: Cholecystectomy clips are seen. IMPRESSION: 1. Suboptimal study, no large saddle pulmonary embolism, smaller PE cannot be excluded. 2. Mild emphysematous change with perhaps small area of focal infiltrate anterior right upper lobe. S cattered atelectatic change is noted bilaterally.
[2017-03-26 17:29] LABS: Glucose,Whole Blood 128 mg/dL (75-99)
--- NOTE | 2017-03-26 18:50 | P.CNPUL ---
History of Present Illness Consult date: 03/26/17 Reason for consult: dyspnea History of present illness: A 47-year-old female patient was admitted to the hospital because of increased shortness of breath, cough and chest congestion a few days duration. Her chest wall was sore specially when she coughs. No fever. No chills. She is a chronic smoker and she's been smoking cigarettes since the age of 20. She is not using oxygen pages not using any form of respiratory medications or inhalers at home. No sick contacts. No travel history. No hemoptysis. No pleurisy. No swelling lower extremities. She has no previous history of DVT or pulmonary embolism. A CT angios the chest was done in the emergency department that showed no evidence of any pulmonary embolism. The patient has mild emphysema with apical bleb formation bilaterally. Nonspecific focal groundglass opacity anteriorly in the right upper lobe area is seen with a small area of acute infiltrate cannot being excluded. No suspicious nodules or lesions or masses or pneumothorax. The white cell count is 11.8. Rest of the electrodes are within normal limits. The troponin is negative. BNP is not elevated. Review of Systems Constitutional: Reports fatigue Eyes: denies blurred vision, denies bulging eye, denies decreased vision Ears: deny: decreased hearing, ear discharge, earache Cardiovascular: Reports chest pain, Reports decreased exercise tolerance, Reports dyspnea on exertion, Reports shortness of breath Respiratory: Reports cough, Reports dyspnea, Reports wheezing Gastrointestinal: Denies abdominal pain, Denies diarrhea, Denies nausea, Denies vomiting Genitourinary: Denies dysuria, Denies hematuria Musculoskeletal: Denies myalgias Musculoskeletal: absent: ankle pain, ankle stiffness, ankle swelling Integumentary: Denies pruritus, Denies rash Neurological: Denies numbness, Denies weakness Psychiatric: Denies anxiety, Denies depression Past Medical History Past Medical History: Asthma, GERD/Reflux, Hypertension Additional Past Medical History / Comment(s): COPD, chronic back pain, lumbar degenerative disc disease, insomnia, shingles, hiatal hernia History of Any Multi-Drug Resistant Organisms: MRSA Date of last positivie culture/infection: 09/22/2009 MDRO Source:: neck Past Surgical History: Appendectomy, Back Surgery, Section, Cholecystectomy, Hernia Repair Additional Past Surgical History / Comment(s): Cervical spine fusion with insertion of a metal plate, EGD, colonoscopy, hiatal hernia, lumbar rhizotomy and radiofrequency ablation., Appendectomy, , cholecystectomy, hernia repair Past Anesthesia/Blood Transfusion Reactions: No Reported Reaction Additional Past Anesthesia/Blood Transfusion Reaction / Comment(s): CLAUSTROPHOBIA Smoking Status: Current every day smoker - Past Family History Father Family Medical History: Cancer Additional Family Medical History / Comment(s): Father at age 48 from lung cancer. Mother Family Medical History: Congestive Heart Failure (CHF), CVA/TIA Additional Family Medical History / Comment(s): Mother is alive at age 68. She has suffered from a CVA and has chronic back problems. Patient has 2 brothers and 4 sisters with no major medical problems. Medications and Allergies Home Medications Medication Instructions Recorded Confirmed Type Dextroamphetamine/Amphetamine 30 mg PO QAM 07/16/16 03/25/17 History [Adderall] Gabapentin [Neurontin] 300 mg PO TID #90 02/16/17 03/25/17 Rx Atenolol [Tenormin] 50 mg PO DAILY 02/24/17 03/25/17 History clonazePAM [KlonoPIN] 0.5 mg PO BID 02/24/17 03/25/17 History oxyCODONE HCL/ACETAMINOPHEN 1 tab PO TID 03/25/17 03/25/17 History [Percocet 7.5-325 mg] Allergies Allergy/AdvReac Type Severity Reaction Status Date / Time ibuprofen Allergy Rash/Hives Verified 03/25/17 11:18 shellfish derived Allergy Anaphylaxis Verified 03/25/17 11:18 tramadol [From Ultram] Allergy Rash/Hives Verified 03/25/17 11:18 Physical Exam Vitals: Vital Signs Temp Pulse Pulse Resp BP Pulse Ox 03/26/17 17:29 100 03/26/17 17:18 98 97 03/26/17 16:00 69 16 03/26/17 15:52 98.1 F 69 16 139/95 96 03/26/17 12:00 98 16 03/26/17 11:21 100 03/26/17 11:13 98 03/26/17 08:00 98 16 03/26/17 07:57 102 H 03/26/17 07:49 94 96 03/26/17 07:27 98.1 F 98 16 146/84 97 03/26/17 04:00 97.9 F 91 18 128/76 95 03/26/17 03:41 18 03/26/17 00:00 18 03/25/17 20:00 98.3 F 107 H 18 131/68 95 03/25/17 19:53 112 H 03/25/17 19:42 110 H Intake and Output 03/26/17 03/26/17 03/26/17 06:59 14:59 22:59 Intake Total 1200 476 240 Balance 1200 476 240 Intake: IV 800 Sodium Chloride 0.9% 1, 800 000 ml @ 100 mls/hr IV . Q10H YUSRA Rx#:[id number] Oral 400 476 240 Other: Voiding Method Toilet Toilet Toilet # Voids 2 2 Weight 69 kg Patient Weight 03/27/17 06:59 Weight 69 kg The patient appeared well nourished and normally developed. Vital signs as documented. Head exam is unremarkable. No scleral icterus or corneal arcus noted. Neck is without jugular venous distension, thyromegaly, or carotid bruits. Carotid upstrokes are brisk bilaterally. Lungs diminished breath sounds along with diffuse expiratory wheezes throughout the lung his bilaterally. There is also prolongation of the expiratory phase of breathing. Cardiac exam reveals the PMI to be normally sized and situated. Rhythm is regular. First and second heart sounds normal. No murmurs, rubs or gallops. Abdominal exam reveals normal bowel sounds, no masses, no organomegaly and no aortic enlargement. Extremities are nonedematous and both femoral and pedal pulses are normal. Results - Laboratory Findings CBC and BMP: 03/25/17 12:24 03/25/17 12:24 PT/INR, D-dimer PT 10.2 sec (9.0-12.0) 03/25/17 12:24 INR 1.0 (<1.2) 03/25/17 12:24 Abnormal lab findings: Abnormal Labs 03/25/17 03/25/17 03/25/17 12:24 12:24 12:24 WBC 11.8 H Hgb 16.4 H Hct 48.9 H Plt Count 517 H Neutrophils # 8.8 H Creatinine 0.50 L Glucose 115 H POC Glucose (mg/dL) Calcium 10.7 H Alkaline Phosphatase 150 H Total Creatine Kinase 21 L 08/03/26/17 03/26/17 20:35 06:44 12:04 WBC Hgb Hct Plt Count Neutrophils # Creatinine Glucose POC Glucose (mg/dL) 217 H 134 H 125 H Calcium Alkaline Phosphatase Total Creatine Kinase 03/26/17 17:26 WBC Hgb Hct Plt Count Neutrophils # Creatinine Glucose POC Glucose (mg/dL) 128 H Calcium Alkaline Phosphatase Total Creatine Kinase - Diagnostic Findings Chest x-ray: image reviewed CT scan - chest: image reviewed Assessment and Plan Plan: Assessment 1 acute COPD exacerbation/tracheal bronchitis with secondary shortness of breath 2 cough and dyspnea secondary to above 3 nicotine addiction/smoking 4 chronic back pain 5 chronic insomnia 6 shingles, history of Plan Smoking cessation counseling was done. The patient was reassured and the results of the CAT scan of the chest. DuoNeb nebulized treatment around-the- clock. IV Solu Medrol 60 every 6 hours. IV Zithromax in addition to Rocephin as an empiric antibiotic coverage. Promethazine with codeine for cough. Resume outpatient medications including the painkillers. We'll continue to follow. Will need outpatient follow-up with a based on pulmonate function tests. Anticipate underlying COPD. CAT scan of the chest was reviewed.
[2017-03-26] MEDS: SODIUM CHLORIDE 0.9% 1,000 ML IV SCH (19:38)
[2017-03-26 20:37] LABS: Glucose,Whole Blood 196 mg/dL (75-99)
--- NOTE | 2017-03-26 20:52 | HP ---
HISTORY AND PHYSICAL CHIEF COMPLAINT: 47-year-old white female who was admitted with severe respiratory distress, not improving, failing outpatient treatment. She has cough, congestion, extreme short of breath. She is admitted for a COPD exacerbation, possible pneumonia and respiratory distress. Since she has been admitted she is not doing well. Respiratory is worsening despite IV azithromycin and Solu-Medrol. ALLERGIES: IBUPROFEN, SHELL FISH, TRAMADOL. HOME MEDICATIONS: Oxycodone, Klonopin, Neurontin, , Tenormin. REVIEW OF SYSTEMS: PULMONARY: As mentioned above. PSYCH: Anxious, nervous. CARDIAC: Negative. ENDOCRINE: Negative. VASCULAR: Negative. IMMUNE: Negative. INTEGUMENT: Negative. PHYSICAL EXAM: Temp 98.1, pulse is 94-02, respiratory rate is 25-35, blood pressure 143/80s. CARDIOVASCULAR: S1, S2. LUNGS: Scattered wheeze x4. Congestive cough, severe. GI: Soft. HEMATOLOGY: Negative Homans. VASCULAR: Normal dorsalis pedis, posterior tibial pulse. PSYCH: Fair mood and affect. NEUROLOGIC: Alert and oriented x3. ASSESSMENT: 1. Chronic obstructive pulmonary disease exacerbation failing outpatient treatment. 2. Tracheobronchitis, rule out pneumonia. Continue with current IV steroids and updrafts. Rocephin and Zithromax will be used . Follow up as an outpatient. MMODL / IJN: [id number] /
[2017-03-27] MEDS: HYDROmorphone 1 MG/ML 1 ML SYRINGE IVP PRN ×4 (01:06→12:52)
[2017-03-27] MEDS: LORazepam 2 MG/ML SYRINGE IV PRN ×4 (01:06→12:53)
[2017-03-27] MEDS: methylPREDNISolone SOD SUCCI 125 MG/2 ML VIAL IV SCH ×3 (01:06→12:52)
[2017-03-27] MEDS: SODIUM CHLORIDE 0.9% 1,000 ML IV SCH ×2 (04:03→12:57)
[2017-03-27 07:17] LABS: Glucose,Whole Blood 115 mg/dL (75-99)
[2017-03-27] MEDS: INSULIN LISPRO (humaLOG) 300 UNIT/3 ML VIAL SQ SCH ×2 (08:29→12:56)
[2017-03-27] MEDS: IPRATROPIUM-ALBUTEROL 3 ML NEB INHALATION SCH ×2 (08:47→13:06)
[2017-03-27] MEDS: clonazePAM 0.5 MG TAB PO SCH (08:54)
[2017-03-27] MEDS: oxyCODONE-APAP 7.5-325MG 1 EACH TAB PO SCH (08:54)
[2017-03-27] MEDS: ATENOLOL 50 MG TAB PO SCH (08:55)
[2017-03-27] MEDS: GABAPENTIN 300 MG CAP PO SCH (08:55)
[2017-03-27] MEDS: ENOXAPARIN 40 MG/0.4 ML SYRINGE SQ SCH (08:55)
[2017-03-27] MEDS ORDERED: AZITHROMYCIN 500 MG in SODIUM CHLORIDE 0.9% 250 ML IVPB SCH (10:00)
[2017-03-27 10:05] VITALS: BP 149/90; PULSE 80; RESP 18; TEMP 98.5
[2017-03-27] MEDS: PROMETHAZ-COD 6.25-10 MG/5 ML 5 ML CUP PO PRN (10:18)
[2017-03-27 12:22] LABS: Glucose,Whole Blood 117 mg/dL (75-99)
--- NOTE | 2017-03-27 13:43 | P.PN ---
Subjective A 47-year-old female patient was admitted to the hospital because of increased shortness of breath, cough and chest congestion a few days duration. Her chest wall was sore specially when she coughs. No fever. No chills. She is a chronic smoker and she's been smoking cigarettes since the age of 20. She is not using oxygen pages not using any form of respiratory medications or inhalers at home. No sick contacts. No travel history. No hemoptysis. No pleurisy. No swelling lower extremities. She has no previous history of DVT or pulmonary embolism. A CT angios the chest was done in the emergency department that showed no evidence of any pulmonary embolism. The patient has mild emphysema with apical bleb formation bilaterally. Nonspecific focal groundglass opacity anteriorly in the right upper lobe area is seen with a small area of acute infiltrate cannot being excluded. No suspicious nodules or lesions or masses or pneumothorax. The white cell count is 11.8. Rest of the electrodes are within normal limits. The troponin is negative. BNP is not elevated. The patient is seen again today in follow-up 03/27/2017 on the regular medical floor. She is awake and alert in no acute distress. She is maintaining good O2 saturations in the 90s on room air now. She's been afebrile. Hemodynamically stable. She remains on bronchodilators, Solu-Medrol, Phenergan with codeine, empiric antibiotics in the form of ceftriaxone and azithromycin Objective - Vital Signs Vital signs: Vital Signs Temp 98.5 F 03/27/17 10:04 Pulse 80 03/27/17 10:04 Resp 18 03/27/17 10:04 BP 149/90 03/27/17 10:04 Pulse Ox 97 03/27/17 10:04 Intake & Output 03/26/17 03/27/17 03/27/17 18:59 06:59 18:59 Intake Total 716 700 Balance 716 700 Weight 69 kg Intake: Oral 716 700 Other: Voiding Method Toilet Toilet Toilet # Voids 2 2 - Exam The patient appeared well nourished and normally developed. Vital signs as documented. Head exam is unremarkable. No scleral icterus or corneal arcus noted. Neck is without jugular venous distension, thyromegaly, or carotid bruits. Carotid upstrokes are brisk bilaterally. Lungs diminished breath sounds along with diffuse expiratory wheezes throughout the lung his bilaterally. There is also prolongation of the expiratory phase of breathing. Cardiac exam reveals the PMI to be normally sized and situated. Rhythm is regular. First and second heart sounds normal. No murmurs, rubs or gallops. Abdominal exam reveals normal bowel sounds, no masses, no organomegaly and no aortic enlargement. Extremities are nonedematous and both femoral and pedal pulses are normal. - Labs CBC & Chem 7: 03/25/17 12:24 03/25/17 12:24 Labs: Abnormal Lab Results - Last 24 Hours (Table) 03/26/17 03/26/17 03/27/17 Range/Units 17:26 20:35 07:00 POC Glucose (mg/dL) 128 H 196 H 115 H (75-99) mg/dL 03/27/17 Range/Units 12:18 POC Glucose (mg/dL) 117 H (75-99) mg/dL Assessment and Plan Plan: Assessment 1 acute COPD exacerbation/tracheal bronchitis with secondary shortness of breath 2 cough and dyspnea secondary to above 3 nicotine addiction/smoking 4 chronic back pain 5 chronic insomnia 6 shingles, history of Plan: The patient was seen and evaluated by Dr. Gray. We'll continue with her current medications for now. We'll increase her activity as tolerated. She is again educated regarding the importance of complete smoking cessation. She would benefit from a outpatient workup in regards to her suspected COPD and make maintenance recommendations. We'll continue to follow.
--- NOTE | 2017-03-27 19:26 | P.DS ---
Providers Date of admission: 03/25/17 11:54 Attending physician: Gael Sykes Consults: 03/25/17 16:57 Consult Physician Routine Consulting Provider: Ihsan Matos Consult Reason/Comments: copd Do you want consulting provider notified?: Yes Primary care physician: Stated None Hospital Course: This is a 47 year female is admitted to the [facility] with the significant cough and some wheezing. Patient has ongoing tobacco use and underlying COPD patient admitted with a diagnosis COPD exacerbation Patient also has multiple medications including stimulants and anxiety medications and pain medication There appears to be some pain seeking behavior as well Today patient was evaluated Lungs appear to be clear to auscultation no significant wheezing is noted States that patient has had a cough for about 7 days did improve on Levaquin Has complaints of significant pain in her right lower ribs Is requesting a lot of pain medications including IV Dilaudid Discharge diagnoses #1 acute exacerbation of COPD #2, secondary to acute bronchitis #3 ongoing tobacco use #4 diagnosis of ADHD #5 anxiety #6 opiate seeking behavior Plan Patient be discharged with antibiotics . [place] for a short period for her pain Patient was able to ambulate without much difficulty or only complaint was cough Disposition home Not have a PCP Red to follow-up with Dr. Gael Sykes. Patient Condition at Discharge: Fair Plan - Discharge Summary New Discharge Prescriptions: New Benzonatate [Tessalon Perles] 100 mg PO TID #20 cap HYDROcodone/APAP 5-325MG [[place] 5-325] 1 tab PO Q6HR PRN #25 tab PRN Reason: Pain Levofloxacin [Levaquin] 750 mg PO DAILY #7 tab Continue Dextroamphetamine/Amphetamine [Adderall] 30 mg PO QAM Gabapentin [Neurontin] 300 mg PO TID #90 clonazePAM [KlonoPIN] 0.5 mg PO BID Atenolol [Tenormin] 50 mg PO DAILY oxyCODONE HCL/ACETAMINOPHEN [Percocet 7.5-325 mg] 1 tab PO TID Discharge Medication List Dextroamphetamine/Amphetamine [Adderall] 30 mg PO QAM 07/16/16 [History] Gabapentin [Neurontin] 300 mg PO TID #90 02/16/17 [Rx] Atenolol [Tenormin] 50 mg PO DAILY 02/24/17 [History] clonazePAM [KlonoPIN] 0.5 mg PO BID 02/24/17 [History] oxyCODONE HCL/ACETAMINOPHEN [Percocet 7.5-325 mg] 1 tab PO TID 03/25/17 [History ] Benzonatate [Tessalon Perles] 100 mg PO TID #20 cap 03/27/17 [Rx] HYDROcodone/APAP 5-325MG [[place] 5-325] 1 tab PO Q6HR PRN #25 tab 03/27/17 [Rx] Levofloxacin [Levaquin] 750 mg PO DAILY #7 tab 03/27/17 [Rx] Follow up Appointment(s)/Referral(s): Gael Sykes MD [STAFF PHYSICIAN] - 1 Week None,Stated [Primary Care Provider] - 1-2 days Neetu Gray MD [STAFF PHYSICIAN] - 1 Week Patient Instructions/Handouts: How to Stop Smoking (DC), Cigarette Smoking and Your Health (GEN), Acute Bronchitis (GEN), COPD (Chronic Obstructive Pulmonary Disease) (DC) Activity/Diet/Wound Care/Special Instructions: please follow up with your primary care provider or Dr. Sykes. Also Follow up with Dr. Gray Discharge Disposition: HOME SELF-CARE
[2017-03-28] MEDS ORDERED: AZITHROMYCIN 500 MG TAB PO SCH (09:00)
== END 2017-03-27 15:45 | disposition home or self-care (01) ==
LOC: EC 11:01 → 3OBS 11:54 → 4MS4W 03-27 09:45
PROVIDERS: ADMIT Family Medicine; ATTEND Family Medicine
DX: J44.1 Chronic obstructive pulmonary disease with (acute) exacerbation (principal); J44.0 Chronic obstructive pulmonary disease with (acute) lower respiratory infection; J20.9 Acute bronchitis, unspecified; F17.210 Nicotine dependence, cigarettes, uncomplicated; F51.04 Psychophysiologic insomnia; F90.9 Attention-deficit hyperactivity disorder, unspecified type; F41.9 Anxiety disorder, unspecified; F40.240 Claustrophobia; Z76.5 Malingerer [conscious simulation]; I10 Essential (primary) hypertension; M54.9 Dorsalgia, unspecified; G89.29 Other chronic pain; M51.36 Other intervertebral disc degeneration, lumbar region; B02.9 Zoster without complications; Z98.1 Arthrodesis status; Z82.3 Family history of stroke; Z80.1 Family history of malignant neoplasm of trachea, bronchus and lung; Z82.49 Family history of ischemic heart disease and other diseases of the circulatory system; Z79.891 Long term (current) use of opiate analgesic; Z79.899 Other long term (current) drug therapy; Z88.6 Allergy status to analgesic agent; Z88.5 Allergy status to narcotic agent; Z91.013 Allergy to seafood; Z86.14 Personal history of Methicillin resistant Staphylococcus aureus infection
CPT/HCPCS: 99284; 96375 ×6; 96365 ×2; 96376 ×3; 96366 ×3; 96367; 96372 ×2; 36415; 94640 ×3; 94760; 94644; 93005; 83880; 80053; 83036; 82550; 82553; 83735; 84484; 85025; 85610; 85730; 71010; 71275; G0378 ×3; J2060 ×3; J2270; J2930 ×3; Q9967; J2405; J0456 ×3; J1650 ×2; J0696 ×2; J1170 ×3

== ENCOUNTER 2017-04-07 08:05 | Emergency (ER) | payer OTHER ==
[2017-04-07 08:09] VITALS: TEMP 98.1
[2017-04-07] MEDS ORDERED: ONDANSETRON 4 MG/2 ML VIAL IVP STA (08:28)
[2017-04-07] MEDS ORDERED: HYDROmorphone 1 MG/ML 1 ML SYRINGE IVP STA (08:28)
[2017-04-07] MEDS ORDERED: SODIUM CHLORIDE 0.9% 1,000 ML IV STA (08:28)
--- NOTE | 2017-04-07 08:40 | ED ---
General Adult HPI - General Chief complaint: Abdominal Pain Stated complaint: Abd Pain Time Seen by Provider: 04/07/17 08:15 Source: patient, RN notes reviewed Mode of arrival: ambulatory Limitations: no limitations - History of Present Illness Initial comments: Patient 47-year-old female who presents emergency room today with a chief complaint of abdominal pain over the last 3 days. She states she noticed some bruising to the left side of the lower abdomen 4 days ago. She states she was admitted to the hospital for a day for bronchitis approximately a few weeks ago. She states she did not receive any heparin shots. She states that she began having pain in the lower abdomen on the left lower and right lower approximate 3 days ago. She states her lites are somewhat of kidney stones or sediment past. She states felt very nauseous no vomiting. Denies any other complaint or symptoms. Patient denies any recent fever, chills, shortness of breath, chest pain, vomiting, numbness or tingling, dysuria or hematuria, constipation or diarrhea, headaches or visual changes, or any other complaints. - Related Data Home Medications Medication Instructions Recorded Confirmed Dextroamphetamine/Amphetamine 30 mg PO QAM 07/16/16 04/07/17 [Adderall] Atenolol [Tenormin] 50 mg PO DAILY 02/24/17 04/07/17 clonazePAM [KlonoPIN] 0.5 mg PO BID 02/24/17 04/07/17 Acetaminophen Tab [Tylenol Tab] 1,000 mg PO Q6HR PRN 04/07/17 04/07/17 Doxepin [SINEquan] 25 mg PO HS 04/07/17 04/07/17 Previous Rx's Medication Instructions Recorded Hydrocodone/Acetaminophen [Lares 1 each PO Q6HR PRN #15 tab 04/07/17 5-325] Ibuprofen [Motrin] 600 mg PO Q6HR PRN #40 day 04/07/17 LORazepam [Ativan] 0.5 mg PO BID #10 tab 04/07/17 Ondansetron Odt [Zofran ODT] 4 mg PO Q8HR PRN #20 tab 04/07/17 Tamsulosin [Flomax] 0.4 mg PO DAILY #10 cap 04/07/17 Allergies Allergy/AdvReac Type Severity Reaction Status Date / Time ibuprofen Allergy Rash/Hives Verified 04/07/17 08:42 shellfish derived Allergy Anaphylaxis Verified 04/07/17 08:42 tramadol [From Ultram] Allergy Rash/Hives Verified 04/07/17 08:42 Review of Systems ROS Statement: Those systems with pertinent positive or pertinent negative responses have been documented in the HPI. ROS Other: All systems not noted in ROS Statement are negative. Past Medical History Past Medical History: Asthma, GERD/Reflux, Hypertension Additional Past Medical History / Comment(s): COPD, chronic back pain, lumbar degenerative disc disease, insomnia, shingles, hiatal hernia History of Any Multi-Drug Resistant Organisms: MRSA Date of last positivie culture/infection: 09/22/2009 MDRO Source:: neck Past Surgical History: Appendectomy, Back Surgery, Section, Cholecystectomy, Hernia Repair Additional Past Surgical History / Comment(s): Cervical spine fusion with insertion of a metal plate, EGD, colonoscopy, hiatal hernia, lumbar rhizotomy and radiofrequency ablation., Appendectomy, , cholecystectomy, hernia repair Past Anesthesia/Blood Transfusion Reactions: No Reported Reaction Additional Past Anesthesia/Blood Transfusion Reaction / Comment(s): CLAUSTROPHOBIA Past Psychological History: ADD/ADHD, Anxiety Smoking Status: Current every day smoker Past Alcohol Use History: None Reported Past Drug Use History: None Reported - Past Family History Father Family Medical History: Cancer Additional Family Medical History / Comment(s): Father at age 48 from lung cancer. Mother Family Medical History: Congestive Heart Failure (CHF), CVA/TIA Additional Family Medical History / Comment(s): Mother is alive at age 68. She has suffered from a CVA and has chronic back problems. Patient has 2 brothers and 4 sisters with no major medical problems. General Exam - General Exam Comments Initial Comments: General: The patient is awake and alert, in no distress, and does not appear acutely ill. Eye: Pupils are equal, round and reactive to light, extra-ocular movements are intact. No nystagmus. There is normal conjunctiva bilaterally. No signs of icterus. Ears, nose, mouth and throat: There are moist mucous membranes and no oral lesions. Neck: The neck is supple, there is no tenderness or JVD. Cardiovascular: There is a regular rate and rhythm. No murmur, rub or gallop is appreciated. Respiratory: Lungs are clear to auscultation, respirations are non-labored, breath sounds are equal. No wheezes, stridor, rales, or rhonchi. Gastrointestinal: Patient does have some bruising brown colored to the left lower quadrant. No rebound tenderness. No guarding. No CVA tenderness. Mild tenderness to lower abdomen on palpation. Musculoskeletal: Normal ROM, no tenderness. Strength 5/5. Sensation intact. Pulses equal bilaterally 2+. Neurological: A&O x 3. CN II-XII intact, There are no obvious motor or sensory deficits. Coordination appears grossly intact. Speech is normal. Skin: Skin is warm and dry and no rashes or lesions are noted. Psychiatric: Cooperative, appropriate mood & affect, normal judgment. Limitations: no limitations Course Vital Signs 04/07/17 04/07/17 04/07/17 08:07 09:00 10:41 Temperature 98.1 F Pulse Rate 91 101 H 68 Respiratory 18 22 20 Rate Blood Pressure 132/74 115/60 108/65 O2 Sat by Pulse 100 97 97 Oximetry Medical Decision Making - Medical Decision Making Patient reexamined at this time shows no signs of distress. She is resting comfortably in the stretcher. Her CT shows possible atelectasis versus pneumonia. Patient has no cough or congestion. Does show hiatal hernia. She states she was aware this. No evidence of a kidney stone at this time. Patient does have 6 red cells. She states feels consistent with kidney stone that she's had in the past. She was worried about bruising to the lesser abdomen. She was recently admitted to the hospital did review the chart she did receive Lovenox injections. At this time patient's abdomen soft nontender she is feeling well. She'll be discharged home treated for kidney stone with pain medication, Flomax advised faulted family doctor over the next 2 days. Advised to return here to the emergency room symptoms increase worsen or for any other concerns. Case discussed in detail with attending physician Dr. Blake. - Lab Data Result diagrams: 04/07/17 09:00 04/07/17 09:00 Lab Results 04/07/17 04/07/17 04/07/17 Range/Units 09:00 09:00 09:00 WBC 8.3 (3.8-10.6) k/uL RBC 4.42 (3.80-5.40) m/uL Hgb 14.0 (11.4-16.0) gm/dL Hct 42.8 (34.0-46.0) % MCV 96.8 (80.0-100.0) fL MCH 31.8 (25.0-35.0) pg MCHC 32.8 (31.0-37.0) g/dL RDW 14.3 (11.5-15.5) % Plt Count 347 (150-450) k/uL Neutrophils % 66 % Lymphocytes % 22 % Monocytes % 8 % Eosinophils % 2 % Basophils % 0 % Neutrophils # 5.5 (1.3-7.7) k/uL Lymphocytes # 1.8 (1.0-4.8) k/uL Monocytes # 0.7 (0-1.0) k/uL Eosinophils # 0.1 (0-0.7) k/uL Basophils # 0.0 (0-0.2) k/uL Sodium 141 (137-145) mmol/L Potassium 4.3 (3.5-5.1) mmol/L Chloride 109 H (98-107) mmol/L Carbon Dioxide 23 (22-30) mmol/L Anion Gap 9 mmol/L BUN 7 (7-17) mg/dL Creatinine 0.61 (0.52-1.04) mg/dL Est GFR (MDRD) Af Amer >60 (>60 ml/min/1.73 sqM) Est GFR (MDRD) Non-Af >60 (>60 ml/min/1.73 sqM) Glucose 149 H (74-99) mg/dL Calcium 9.6 (8.4-10.2) mg/dL Total Bilirubin 0.3 (0.2-1.3) mg/dL AST 19 (14-36) U/L ALT 27 (9-52) U/L Alkaline Phosphatase 86 (38-126) U/L Total Protein 6.4 (6.3-8.2) g/dL Albumin 3.8 (3.5-5.0) g/dL Amylase 41 (30-110) U/L Lipase 53 (23-300) U/L Urine Color Yellow Urine Appearance Clear (Clear) Urine pH 5.5 (5.0-8.0) Ur Specific [place] 1.017 (1.001-1.035) Urine Protein Negative (Negative) Urine Glucose (UA) Negative (Negative) Urine Ketones Negative (Negative) Urine Blood Small H (Negative) Urine Nitrite Negative (Negative) Urine Bilirubin Negative (Negative) Urine Urobilinogen <2.0 (<2.0) mg/dL Ur Leukocyte Esterase Negative (Negative) Urine RBC 6 H (0-5) /hpf Urine WBC 2 (0-5) /hpf Ur Squamous Epith Cells 6 H (0-4) /hpf Urine Bacteria Rare H (None) /hpf Urine Mucus Rare H (None) /hpf Disposition Clinical Impression: Kidney stone Disposition: HOME SELF-CARE Condition: Good Instructions: Kidney Stones (ED) Additional Instructions: Please use medication as discussed. Please follow-up with family doctor in the next 2 days. Please return to emergency room if the symptoms increase or worsen or for any other concerns. Prescriptions: Hydrocodone/Acetaminophen [Lares 5-325] 1 each PO Q6HR PRN #15 tab PRN Reason: Pain Ibuprofen [Motrin] 600 mg PO Q6HR PRN #40 day PRN Reason: Pain LORazepam [Ativan] 0.5 mg PO BID #10 tab Ondansetron Odt [Zofran ODT] 4 mg PO Q8HR PRN #20 tab PRN Reason: Nausea Tamsulosin [Flomax] 0.4 mg PO DAILY #10 cap Referrals: None,Stated [Primary Care Provider] - 1-2 days Time of Disposition: 11:44
[2017-04-07] MEDS ORDERED: LORazepam 2 MG/ML SYRINGE IV STA (09:09)
[2017-04-07 09:24] LABS: Appearance,Urine Clear (Clear); Bacteria,Urine Rare /hpf; Bilirubin,Urine Negative (Negative); Glucose,Urine (UA) Negative (Negative); Ketones,Urine Negative (Negative); Leukocyte Esterase,Urine Negative (Negative); Mucus,Urine Rare /hpf; Nitrite,Urine Negative (Negative); PH, Urine 5.5 (5.0-8.0); Particle Count 3474; Protein,Urine Negative (Negative); RBC,Urine 6 /hpf (0-5); Specific Gravity,Urine 1.017 (1.001-1.035); Squamous Epithelial Cell,Urine 6 /hpf (0-4); UA Billing (MACRO vs. MICRO) MICRO; Urobilinogen,Urine <2.0 mg/dL (<2.0); WBC,Urine 2 /hpf (0-5)
[2017-04-07 09:27] LABS: ALT 27 U/L (9-52); AST 19 U/L (14-36); Alkaline Phosphatase 86 U/L (38-126); Amylase 41 U/L (30-110); Anion Gap 9 mmol/L; Blood Urea Nitrogen 7 mg/dL (7-17); Calcium 9.6 mg/dL (8.4-10.2); Carbon Dioxide 23 mmol/L (22-30); Chloride 109 mmol/L (98-107); Glucose 149 mg/dL (74-99); Non-African American GFR(MDRD) >60 (>60 ml/min/1.73 sqM); Potassium 4.3 mmol/L (3.5-5.1); Sodium 141 mmol/L (137-145); Total Bilirubin 0.3 mg/dL (0.2-1.3); Total Protein 6.4 g/dL (6.3-8.2)
[2017-04-07 10:11] LABS: Basophils % (A) 0 %; CH 32.5; CHCM 33.7; Eosinophils # (A) 0.1 k/uL (0-0.7); Eosinophils % (A) 2 %; HCT 42.8 % (34.0-46.0); HDW 2.28; Luc # (Auto) 0.15; Luc % (Auto) 2; Lymphocytes # (A) 1.8 k/uL (1.0-4.8); Lymphocytes % (A) 22 %; MCH 31.8 pg (25.0-35.0); MCHC 32.8 g/dL (31.0-37.0); MCV 96.8 fL (80.0-100.0); Mean Platelet Volume 7.4; Monocytes # (A) 0.7 k/uL (0-1.0); Monocytes % (A) 8 %; Neutrophils # (A) 5.5 k/uL (1.3-7.7); Neutrophils % (A) 66 %; RBC 4.42 m/uL (3.80-5.40); RDW 14.3 % (11.5-15.5); WBC 8.3 k/uL (3.8-10.6); WBC (Perox) 8.63
[2017-04-07 10:42] VITALS: RESP 20
--- NOTE | 2017-04-07 11:34 | CT ---
EXAMINATION TYPE: CT abdomen pelvis wo con DATE OF EXAM: 04/07/2017 COMPARISON: 04/22/2009 HISTORY: 47-year-old female with mid abdominal and pelvic pain CT DLP: 771 mGycm Automated exposure control for dose reduction was used. TECHNIQUE: Helical acquisition of images from the lung bases through the pelvis. FINDINGS: Heart is normal size without pericardial effusion. There is a patchy opacity at the base of the right middle lobe and inferior lingula, new from 2008. No pleural effusion. Small hiatal hernia. The liver is upper limits of normal in size measuring 18.1 cm craniocaudal. Otherwise, noncontrast ap pearance of the liver, adrenal glands, spleen, pancreas show no gross abnormality. Cholecystectomy clips are present. Mild bilateral perinephric stranding unchanged from 2008 and likely senescent change. No nephrolithia sis or hydronephrosis seen. Mild atherosclerotic calcifications throughout the abdominal aorta and iliac arteries. No dilated small bowel, free fluid, or free air. Mild overall stool burden. Some surgical changes are noted at the right lower quadrant from prior raul endectomy. No pericolonic inflammatory change. There may be minimal perivesicular fat stranding without significant wall thickening. Uterus and ovar ies are visualized. No abnormal fluid collection in the pelvis or pelvic lymphadenopathy seen. Bones: Mild degenerative changes of the hips. No osseous destructive process. IMPRESSION: 1. No nephrolithiasis or hydronephrosis. 2. Some patchy opacity in the basilar right middle lobe and inferior lingula probably represent atele ctasis. Correlate for any infectious signs/symptoms to exclude small early infiltrates. 3. Minimal strandy density around the bladder could be normal for the patient. Correlate with urinaly sis to exclude infection. 4. Small hiatal hernia.
[2017-04-07] MEDS ORDERED: KETOROLAC 30 MG/ML 1 ML VIAL IVP STA (11:47)
[2017-04-07 11:56] VITALS: BP 140/86; PULSE 95
== END 2017-04-07 12:06 | disposition home or self-care (01) ==
LOC: EC 08:05
DX: N20.0 Calculus of kidney (principal); S30.1XXA Contusion of abdominal wall, initial encounter; K44.9 Diaphragmatic hernia without obstruction or gangrene; I10 Essential (primary) hypertension; F90.9 Attention-deficit hyperactivity disorder, unspecified type; F41.9 Anxiety disorder, unspecified; F17.200 Nicotine dependence, unspecified, uncomplicated; Z90.49 Acquired absence of other specified parts of digestive tract; Z98.890 Other specified postprocedural states; Z86.14 Personal history of Methicillin resistant Staphylococcus aureus infection; Z88.6 Allergy status to analgesic agent; Z91.013 Allergy to seafood
CPT/HCPCS: 99284; 96374; 96375 ×3; 96361; 36415; 80053; 82150; 83690; 85025; 81001; 74176; J2060; J2405; J1885; J1170

== ENCOUNTER → 2017-04-13 | Outpatient (CLI) | payer OTHER ==
[2017-04-13 13:03] VITALS: BP 165/103; PULSE 131; RESP 20
--- NOTE | 2017-04-13 13:23 | P.PN ---
Progress Note - Text Patient returns for followup for chronic back pain with radiation to RLE with weakness and numbness and sensation of RLE giving out. Patient recently changed to Percocet TID and states that she is doing better but still occasionally takes a 200 mg ibuprofen in the middle of the night. Dr. Alicea recommended increasing gabapentin and possible repeat neck surgery, but EMG still not done due to insurance problems. Patient denies adverse drug effects from medications. Today, pt denies new-onset weakness, bowel/bladder incontinence, or any other signs or symptoms of cauda equina syndrome. There are no signs of acute intoxication, and no indications of medication diversion or overuse. In addition to above, 13-point review of systems is also negative for chest pain , shortness of breath, changes in vision, changes in hearing, new onset weakness , abdominal pain, diarrhea, extreme fatigue, malaise, fever, skin changes, homicidal or suicidal ideation, or bowel or bladder incontinence. Vital Signs: Reviewed in EMR Gen: WDWN, AAOx3, NAD HEENT: NCAT, EOMI, hearing grossly normal Pulm: resp unlabored Abd: soft, NT, ND Neck: supple, trachea midline ROM in flexion lumbar spine: reduced ROM in extension lumbar spine: reduced Lumbar paravertebral tenderness: ++ Facet loading: ++ bilateral SI joint tenderness: + R > L Bony's test: + R side Straight leg raise: +RLE at 10 degrees Lower extremity: decreased RLE strength secondary to pain; decreased sensation to pinprick RLE compared to LLE Neuro: CN II-XII grossly intact, muscle strength lower extremities PRESERVED Imaging: Reviewed in EMR Assessment: 1. lumbar radiculitis 2. lumbar spondylosis 3. chronic pain syndrome 4. cervical PLPS Plan: 1. Explanation: Opioid and psychological risk scores were reviewed. Diagnoses , prognoses, and multiple treatment options including but not limited to physical therapy, interventional therapies, adjuvant medical therapies, narcotic medication therapies, and surgery were discussed with the patient and all questions were answered to the patient's satisfaction. 2. Opioid agreement: Patient has previously signed narcotic agreement, and was orally counseled to not overuse, abuse, divert, or cell medications, and to take them as prescribed by only 1 healthcare provider. The patient was also counseled to store opioid medications in a safe and preferably locked location. Patient was also counseled against driving or operating heavy equipment while using narcotic medications and also to not use alcohol or any illicit or recreational drugs. The patient verbalized understanding that lack of compliance with any of the above and likely result in failure to renew narcotic prescriptions, possible discharge from the clinic, and possible legal ramifications thereafter if indicated. 3. Counseling: The patient was counseled extensively on SMOKING CESSATION, BODY MASS INDEX, EXERCISE. Specifically, the patient was instructed regarding the importance of smoking cessation, obesity, and exercise in the context of both chronic pain and overall health. 4. Procedures: none for now; consider R lumbar RFA in future if EMG OK 5. Consultations: None 6. Investigations: referral to Dr. Alicea for EMG of lower extremities to eval weakness RLE 7. Medications: Percocet 7.5/325 #90 with one refill, increased gabapentin to 400 TID #90 with two refills 8. Disposition: f/u for re-eval 8 weeks with EMG report PQRS measures: 1-Patient's medications are documented in the chart. 2-Tobacco use is positive, counseling given 3-Patient has not had a pneumococcal vaccine. 4-Advanced care planning discussed, patient unable to give. 5-Opioid contract signed with the patient. 6-Pain positive, follow-up visit or procedure scheduled 7-Patient's blood pressure measured and documented, and patient will follow up with the primary care due to hypertension. 8-Patient's weight was measured, and body mass index ABOVE the normal limits, and counseling was done. Patient instructed to follow up with PCP. 9-Patient WAS NOT identified as an unhealthy alcohol user.
== END | disposition home or self-care (01) ==
LOC: PNWHC3 12:27
PROVIDERS: ATTEND Anesthesiology
DX: M47.26 Other spondylosis with radiculopathy, lumbar region (principal); G89.4 Chronic pain syndrome; G97.1 Other reaction to spinal and lumbar puncture
CPT/HCPCS: G0480; G0463; 80356; 99211

== ENCOUNTER 2017-04-26 12:02 | Emergency (ER) | payer OTHER ==
[2017-04-26 12:16] VITALS: RESP 20
[2017-04-26] MEDS ORDERED: ONDANSETRON 4 MG/2 ML VIAL IVP STA (12:29)
[2017-04-26] MEDS ORDERED: HYDROmorphone 1 MG/ML 1 ML SYRINGE IVP STA ×2 (12:29→13:38)
[2017-04-26] MEDS ORDERED: SODIUM CHLORIDE 0.9% 1,000 ML IV STA (12:29)
--- NOTE | 2017-04-26 12:41 | ED ---
General Adult HPI - General Chief complaint: Abdominal Pain Stated complaint: Abd Pain Time Seen by Provider: 04/26/17 12:23 Source: patient, RN notes reviewed Mode of arrival: ambulatory Limitations: no limitations - History of Present Illness Initial comments: Patient 47-year-old female significant past medical history for kidney stones, who presents emergency room today with a chief complaint of onset of flank pain that started approximately 3 AM. Patient does admit that he feels consistent with kidney stones a single past. She was nausea vomiting. Patient denies any other complaints or symptoms at this time. Patient denies any recent fever, chills, shortness of breath, chest pain, numbness or tingling, dysuria or hematuria, constipation or diarrhea, headaches or visual changes, or any other complaints. - Related Data Home Medications Medication Instructions Recorded Confirmed Dextroamphetamine/Amphetamine 30 mg PO QAM 07/16/16 04/26/17 [Adderall] Atenolol [Tenormin] 50 mg PO DAILY 02/24/17 04/26/17 clonazePAM [KlonoPIN] 0.5 mg PO BID 02/24/17 04/26/17 Ergocalciferol [Vitamin D2] 50,000 unit PO MO 04/26/17 04/26/17 Previous Rx's Medication Instructions Recorded Gabapentin [Neurontin] 400 mg PO TID #90 cap 04/13/17 oxyCODONE-APAP 7.5-325MG [Percocet 1 tab PO Q8HR PRN #90 tab 04/13/17 7.5-325 mg] Ondansetron Odt [Zofran ODT] 4 mg PO Q8HR PRN #20 tab 04/26/17 Tamsulosin [Flomax] 0.4 mg PO DAILY #10 cap 04/26/17 Allergies Allergy/AdvReac Type Severity Reaction Status Date / Time ibuprofen Allergy Rash/Hives Verified 04/26/17 13:06 shellfish derived Allergy Anaphylaxis Verified 04/26/17 13:06 tramadol [From Ultram] Allergy Rash/Hives Verified 04/26/17 13:06 Review of Systems ROS Statement: Those systems with pertinent positive or pertinent negative responses have been documented in the HPI. ROS Other: All systems not noted in ROS Statement are negative. Past Medical History Past Medical History: Asthma, GERD/Reflux, Hypertension, Pneumonia Additional Past Medical History / Comment(s): COPD, chronic back pain, lumbar degenerative disc disease, insomnia, shingles, hiatal hernia, kidney stones History of Any Multi-Drug Resistant Organisms: MRSA Date of last positivie culture/infection: 09/22/2009 MDRO Source:: neck Past Surgical History: Appendectomy, Back Surgery, Section, Cholecystectomy, Hernia Repair Additional Past Surgical History / Comment(s): Cervical spine fusion with insertion of a metal plate, EGD, colonoscopy, hiatal hernia, lumbar rhizotomy and radiofrequency ablation., Appendectomy, , cholecystectomy, hernia repair Past Anesthesia/Blood Transfusion Reactions: No Reported Reaction Additional Past Anesthesia/Blood Transfusion Reaction / Comment(s): CLAUSTROPHOBIA Past Psychological History: ADD/ADHD, Anxiety Smoking Status: Current every day smoker Past Alcohol Use History: None Reported Past Drug Use History: None Reported - Past Family History Father Family Medical History: Cancer Additional Family Medical History / Comment(s): Father at age 48 from lung cancer. Mother Family Medical History: Congestive Heart Failure (CHF), CVA/TIA Additional Family Medical History / Comment(s): Mother is alive at age 68. She has suffered from a CVA and has chronic back problems. Patient has 2 brothers and 4 sisters with no major medical problems. General Exam - General Exam Comments Initial Comments: General: The patient is awake and alert, in mild distress. Eye: Pupils are equal, round and reactive to light, extra-ocular movements are intact. No nystagmus. There is normal conjunctiva bilaterally. No signs of icterus. Ears, nose, mouth and throat: There are moist mucous membranes and no oral lesions. Neck: The neck is supple, there is no tenderness or JVD. Cardiovascular: There is a regular rate and rhythm. No murmur, rub or gallop is appreciated. Respiratory: Lungs are clear to auscultation, respirations are non-labored, breath sounds are equal. No wheezes, stridor, rales, or rhonchi. Gastrointestinal: Soft, non-distended, non-tender abdomen without masses or organomegaly noted. There is no rebound or guarding present. No CVA tenderness. Bowel sounds are unremarkable. Musculoskeletal: Normal ROM, no tenderness. Strength 5/5. Sensation intact. Pulses equal bilaterally 2+. Neurological: A&O x 3. CN II-XII intact, There are no obvious motor or sensory deficits. Coordination appears grossly intact. Speech is normal. Skin: Skin is warm and dry and no rashes or lesions are noted. Psychiatric: Cooperative, appropriate mood & affect, normal judgment. Limitations: no limitations Course Vital Signs 04/26/17 04/26/17 12:14 13:32 Temperature 98.4 F 97.4 F L Pulse Rate 114 H 98 Respiratory 20 20 Rate Blood Pressure 156/100 156/99 O2 Sat by Pulse 100 100 Oximetry Medical Decision Making - Medical Decision Making Patient reexamined at this time shows no signs of distress. Does admit to improvement after pain medication given here in the emergency room. Patient states his symptoms are consistent with kidney symptoms ascend the past. Her labs been reviewed. Small amount of blood in urinalysis. Remaining labs are unremarkable. Patient's x-rays negative for any acute abnormality. We discharged home with Flomax, nausea medication to use as needed. - Lab Data Result diagrams: 04/26/17 12:55 04/26/17 12:55 Lab Results 04/26/17 04/26/17 04/26/17 Range/Units 12:55 12:55 12:55 WBC 8.4 (3.8-10.6) k/uL RBC 4.51 (3.80-5.40) m/uL Hgb 14.6 (11.4-16.0) gm/dL Hct 43.9 (34.0-46.0) % MCV 97.3 (80.0-100.0) fL MCH 32.4 (25.0-35.0) pg MCHC 33.3 (31.0-37.0) g/dL RDW 13.3 (11.5-15.5) % Plt Count 389 (150-450) k/uL Neutrophils % 64 % Lymphocytes % 22 % Monocytes % 10 % Eosinophils % 2 % Basophils % 0 % Neutrophils # 5.4 (1.3-7.7) k/uL Lymphocytes # 1.8 (1.0-4.8) k/uL Monocytes # 0.8 (0-1.0) k/uL Eosinophils # 0.1 (0-0.7) k/uL Basophils # 0.0 (0-0.2) k/uL Sodium 141 (137-145) mmol/L Potassium 3.6 (3.5-5.1) mmol/L Chloride 107 (98-107) mmol/L Carbon Dioxide 24 (22-30) mmol/L Anion Gap 10 mmol/L BUN 8 (7-17) mg/dL Creatinine 0.70 (0.52-1.04) mg/dL Est GFR (MDRD) Af Amer >60 (>60 ml/min/1.73 sqM) Est GFR (MDRD) Non-Af >60 (>60 ml/min/1.73 sqM) Glucose 92 (74-99) mg/dL Calcium 10.2 (8.4-10.2) mg/dL Total Bilirubin 0.3 (0.2-1.3) mg/dL AST 17 (14-36) U/L ALT 31 (9-52) U/L Alkaline Phosphatase 106 (38-126) U/L Total Protein 7.1 (6.3-8.2) g/dL Albumin 4.1 (3.5-5.0) g/dL Amylase <30 L (30-110) U/L Lipase 86 (23-300) U/L Urine Color Colorless Urine Appearance Clear (Clear) Urine pH 6.5 (5.0-8.0) Ur Specific [place] 1.001 (1.001-1.035) Urine Protein Negative (Negative) Urine Glucose (UA) Negative (Negative) Urine Ketones Negative (Negative) Urine Blood Small H (Negative) Urine Nitrite Negative (Negative) Urine Bilirubin Negative (Negative) Urine Urobilinogen <2.0 (<2.0) mg/dL Ur Leukocyte Esterase Negative (Negative) Urine RBC 1 (0-5) /hpf Urine WBC 1 (0-5) /hpf Ur Squamous Epith Cells 1 (0-4) /hpf Urine Bacteria Occasional H (None) /hpf Disposition Clinical Impression: Kidney stone Disposition: HOME SELF-CARE Condition: Good Instructions: Kidney Stones (ED) Additional Instructions: Please use medication as discussed. Please follow-up with urologist/family doctor in the next 2 days of symptoms have not improved. Please return to emergency room if the symptoms increase or worsen or for any other concerns. Prescriptions: Ondansetron Odt [Zofran ODT] 4 mg PO Q8HR PRN #20 tab PRN Reason: Nausea Tamsulosin [Flomax] 0.4 mg PO DAILY #10 cap Referrals: None,Stated [Primary Care Provider] - 1-2 days Zafar Oneil MD [STAFF PHYSICIAN] - 1-2 days Time of Disposition: 13:40
[2017-04-26] MEDS ORDERED: LORazepam 2 MG/ML INJ IV STA (13:10)
--- NOTE | 2017-04-26 13:13 | XR ---
EXAMINATION TYPE: XR KUB DATE OF EXAM: 04/26/2017 COMPARISON: 04/07/2017 HISTORY: Left-sided renal stone and pain TECHNIQUE: One view abdominal series FINDINGS: The osseous structures are intact. The bowel gas pattern is nonspecific. Surgical clips in the right upper quadrant. Curvature the spine noted. Spina bifida occulta noted. IMPRESSION: 1. Nonspecific abdomen.
[2017-04-26 13:18] LABS: Appearance,Urine Clear (Clear); Bacteria,Urine Occasional /hpf; Basophils % (A) 0 %; Bilirubin,Urine Negative (Negative); CH 31.9; CHCM 32.9; Eosinophils # (A) 0.1 k/uL (0-0.7); Eosinophils % (A) 2 %; Glucose,Urine (UA) Negative (Negative); HCT 43.9 % (34.0-46.0); HDW 2.37; HGB 14.6 gm/dL (11.4-16.0); Ketones,Urine Negative (Negative); Leukocyte Esterase,Urine Negative (Negative); Luc # (Auto) 0.18; Luc % (Auto) 2; Lymphocytes # (A) 1.8 k/uL (1.0-4.8); Lymphocytes % (A) 22 %; MCH 32.4 pg (25.0-35.0); MCHC 33.3 g/dL (31.0-37.0); MCV 97.3 fL (80.0-100.0); Mean Platelet Volume 6.7; Monocytes # (A) 0.8 k/uL (0-1.0); Monocytes % (A) 10 %; Neutrophils # (A) 5.4 k/uL (1.3-7.7); Neutrophils % (A) 64 %; Nitrite,Urine Negative (Negative); PH, Urine 6.5 (5.0-8.0); Particle Count 2502; Protein,Urine Negative (Negative); RBC 4.51 m/uL (3.80-5.40); RBC,Urine 1 /hpf (0-5); RDW 13.3 % (11.5-15.5); Specific Gravity,Urine 1.001 (1.001-1.035); Squamous Epithelial Cell,Urine 1 /hpf (0-4); UA Billing (MACRO vs. MICRO) MICRO; Urobilinogen,Urine <2.0 mg/dL (<2.0); WBC 8.4 k/uL (3.8-10.6); WBC (Perox) 8.59; WBC,Urine 1 /hpf (0-5)
[2017-04-26 13:20] LABS: ALT 31 U/L (9-52); AST 17 U/L (14-36); Alkaline Phosphatase 106 U/L (38-126); Amylase <30 U/L (30-110); Anion Gap 10 mmol/L; Blood Urea Nitrogen 8 mg/dL (7-17); Calcium 10.2 mg/dL (8.4-10.2); Carbon Dioxide 24 mmol/L (22-30); Chloride 107 mmol/L (98-107); Glucose 92 mg/dL (74-99); Non-African American GFR(MDRD) >60 (>60 ml/min/1.73 sqM); Potassium 3.6 mmol/L (3.5-5.1); Sodium 141 mmol/L (137-145); Total Bilirubin 0.3 mg/dL (0.2-1.3); Total Protein 7.1 g/dL (6.3-8.2)
[2017-04-26 13:33] VITALS: BP 156/99; PULSE 98; TEMP 97.4
== END 2017-04-26 14:05 | disposition home or self-care (01) ==
LOC: EC 12:02
DX: N20.0 Calculus of kidney (principal); K21.9 Gastro-esophageal reflux disease without esophagitis; I10 Essential (primary) hypertension; F41.9 Anxiety disorder, unspecified; F90.9 Attention-deficit hyperactivity disorder, unspecified type; F17.200 Nicotine dependence, unspecified, uncomplicated; Z79.899 Other long term (current) drug therapy; Z88.6 Allergy status to analgesic agent; Z91.013 Allergy to seafood
CPT/HCPCS: 99284 ×2; 96374 ×2; 96375 ×3; 96376 ×2; 36415; 80053; 82150; 83690; 85025; 81001; 74000; J2060; J2405; J1170

== ENCOUNTER 2017-06-07 14:54 | Emergency (ER) | payer OTHER ==
[2017-06-07] MEDS ORDERED: RX INFO: IV CONTRAST WAS GIVEN 1 EACH MISC MISCELLANE PRN (15:59)
[2017-06-07] MEDS ORDERED: HYDROmorphone 1 MG/ML 1 ML SYRINGE IVP STA ×2 (16:02→17:02)
[2017-06-07] MEDS ORDERED: SODIUM CHLORIDE 0.9% 500 ML IV STA (16:02)
[2017-06-07] MEDS ORDERED: KETOROLAC 30 MG/ML 1 ML VIAL IVP STA (16:02)
[2017-06-07 16:23] LABS: Basophils % (A) 0 %; CH 31.7; CHCM 32.9; Eosinophils # (A) 0.3 k/uL (0-0.7); Eosinophils % (A) 3 %; HCT 42.6 % (34.0-46.0); HDW 2.41; Luc # (Auto) 0.18; Luc % (Auto) 2; Lymphocytes # (A) 1.8 k/uL (1.0-4.8); Lymphocytes % (A) 20 %; MCH 31.8 pg (25.0-35.0); MCHC 32.9 g/dL (31.0-37.0); MCV 96.6 fL (80.0-100.0); Mean Platelet Volume 6.4; Monocytes # (A) 0.7 k/uL (0-1.0); Monocytes % (A) 9 %; Neutrophils # (A) 5.7 k/uL (1.3-7.7); Neutrophils % (A) 66 %; RBC 4.41 m/uL (3.80-5.40); RDW 13.1 % (11.5-15.5); WBC 8.7 k/uL (3.8-10.6)
[2017-06-07 16:32] LABS: Anion Gap 9 mmol/L; Blood Urea Nitrogen 12 mg/dL (7-17); Calcium 9.8 mg/dL (8.4-10.2); Carbon Dioxide 25 mmol/L (22-30); Chloride 106 mmol/L (98-107); Glucose 99 mg/dL (74-99); Non-African American GFR(MDRD) >60 (>60 ml/min/1.73 sqM); Potassium 3.8 mmol/L (3.5-5.1); Sodium 140 mmol/L (137-145)
--- NOTE | 2017-06-07 17:02 | CT ---
EXAMINATION TYPE: CT soft tissue neck w con DATE OF EXAM: 06/07/2017 COMPARISON: NONE HISTORY: Right sided jaw pain today. CT DLP: 676.00 mGycm CONTRAST: CT scan of the neck is performed with IV Contrast, patient injected with 100 mL of Omnipaque 300. Contrast enhanced CT of the neck was performed from the skull base through the lung apices. There is soft tissue edema noted adjacent to the right hemimandible. Periapical abscesses are noted a t multiple bilateral mandibular molar and premolar teeth. Periapical abscess with ventral cortical de fect is noted of the right lateral lower incisor. Small subperiosteal abscess measuring 3.4 mm is dif ficult to exclude seen best on axial image 32. Periapical abscess formation is also seen of various u pper teeth. AIRWAY: The supraglottic, glottic, and subglottic portions of the airway appear patent and free of mass. SALIVARY GLANDS: The submandibular and parotid glands are free of mass or inflammatory process. THYROID GLAND: No nodules or masses seen. LYMPH NODES: No adenopathy seen greater than 1cm. LUNG APICES: No nodule or mass is seen. OTHER: Vascular structures are patent. No significant degenerative change of the cervical spine. IMPRESSION: Soft tissue cellulitis adjacent to the right hemimandible. I cannot exclude a small subperiosteal ab scess adjacent to the right lateral lower incisor. Periapical abscess formation as discussed above. S ee above.
[2017-06-07 17:58] VITALS: BP 136/77; PULSE 99; RESP 16
[2017-06-07] MEDS ORDERED: CLINDAMYCIN 150 MG CAP PO STA (18:07)
--- NOTE | 2017-06-07 18:09 | ED ---
ENT HPI - General Chief complaint: Dental/Oral Stated complaint: Jaw Pain Time Seen by Provider: 06/07/17 15:21 Source: patient Mode of arrival: ambulatory Limitations: no limitations - History of Present Illness Initial comments: 47-year-old female with past medical history of previous dental abscess presented for evaluation of soft tissue swelling to the right mandible with dental pain. She states that these symptoms started at 3:30 this morning and a progressively worsened. She states that they're consistent with previous dental abscesses and is concerned that she has a recurrence. She denies any associated fevers, chills, nausea, vomiting but states that the pain is very intense. It is starting to spread throughout the soft tissue of the right cheek. She denies any associated dysphasia or difficult swallowing or speaking. There is no shortness of breath and states that she has no difficulty handling her saliva. She has a dental perinephric couple weeks but states that she doesn't think she is going to be able to make that. - Related Data Home Medications Medication Instructions Recorded Confirmed Dextroamphetamine/Amphetamine 30 mg PO QAM 07/16/16 06/07/17 [Adderall] Atenolol [Tenormin] 50 mg PO DAILY 02/24/17 06/07/17 clonazePAM [KlonoPIN] 0.5 mg PO BID 02/24/17 06/07/17 Ergocalciferol [Vitamin D2] 50,000 unit PO MO 04/26/17 06/07/17 Vitamin B Complex 1 cap PO DAILY 06/07/17 06/07/17 Previous Rx's Medication Instructions Recorded Gabapentin [Neurontin] 400 mg PO TID #90 cap 04/13/17 oxyCODONE-APAP 7.5-325MG [Percocet 1 tab PO Q8HR PRN #90 tab 04/13/17 7.5-325 mg] Clindamycin [Cleocin] 450 mg PO TID #29 capsule 06/07/17 Allergies Allergy/AdvReac Type Severity Reaction Status Date / Time ibuprofen Allergy Rash/Hives Verified 06/07/17 15:31 shellfish derived Allergy Anaphylaxis Verified 06/07/17 15:31 tramadol [From Ultram] Allergy Rash/Hives Verified 06/07/17 15:31 Review of Systems ROS Statement: Those systems with pertinent positive or pertinent negative responses have been documented in the HPI. ROS Other: All systems not noted in ROS Statement are negative. Constitutional: Denies: fever, chills Eyes: Denies: eye pain, vision change ENT: Reports: dental pain. Denies: ear pain, throat pain Respiratory: Denies: cough, dyspnea Cardiovascular: Denies: chest pain, palpitations Endocrine: Denies: fatigue, polydipsia Gastrointestinal: Denies: abdominal pain, nausea, vomiting Genitourinary: Denies: urgency, dysuria Musculoskeletal: Denies: back pain, joint swelling Skin: Denies: rash, lesions Neurological: Denies: headache, weakness Psychiatric: Denies: anxiety, depression Hematological/Lymphatic: Denies: easy bleeding, easy bruising Past Medical History Past Medical History: Asthma, GERD/Reflux, Hypertension, Pneumonia Additional Past Medical History / Comment(s): COPD, chronic back pain, lumbar degenerative disc disease, insomnia, shingles, hiatal hernia, kidney stones History of Any Multi-Drug Resistant Organisms: MRSA Date of last positivie culture/infection: 09/22/2009 MDRO Source:: neck Past Surgical History: Appendectomy, Back Surgery, Section, Cholecystectomy, Hernia Repair Additional Past Surgical History / Comment(s): Cervical spine fusion with insertion of a metal plate, EGD, colonoscopy, hiatal hernia, lumbar rhizotomy and radiofrequency ablation., Appendectomy, , cholecystectomy, hernia repair Past Anesthesia/Blood Transfusion Reactions: No Reported Reaction Additional Past Anesthesia/Blood Transfusion Reaction / Comment(s): CLAUSTROPHOBIA Past Psychological History: ADD/ADHD, Anxiety Smoking Status: Current every day smoker Past Alcohol Use History: Rare Past Drug Use History: None Reported - Past Family History Father Family Medical History: Cancer Additional Family Medical History / Comment(s): Father at age 48 from lung cancer. Mother Family Medical History: Congestive Heart Failure (CHF), CVA/TIA Additional Family Medical History / Comment(s): Mother is alive at age 68. She has suffered from a CVA and has chronic back problems. Patient has 2 brothers and 4 sisters with no major medical problems. General Exam Limitations: no limitations General appearance: alert, in distress Head exam: Present: atraumatic, normocephalic, normal inspection Eye exam: Present: normal appearance, PERRL, EOMI. Absent: scleral icterus, conjunctival injection, periorbital swelling ENT exam: Present: mucous membranes moist, other (Diffuse dental caries and abnormalities, swelling to the buccal tissue overlying the right mandible) Neck exam: Present: normal inspection. Absent: tenderness, meningismus, lymphadenopathy Respiratory exam: Present: normal lung sounds bilaterally. Absent: respiratory distress, wheezes, rales, rhonchi, stridor Cardiovascular Exam: Present: normal rhythm, tachycardia GI/Abdominal exam: Present: soft, normal bowel sounds. Absent: distended, tenderness, guarding, rebound, rigid Rectal exam: Present: deferred Extremities exam: Present: normal inspection, full ROM, normal capillary refill. Absent: tenderness, pedal edema, joint swelling, calf tenderness Back exam: Present: normal inspection Neurological exam: Present: alert, oriented X3, CN II-XII intact Psychiatric exam: Present: normal affect, normal mood Skin exam: Present: warm, dry, intact, normal color. Absent: rash Course Vital Signs 06/07/17 06/07/17 06/07/17 15:15 16:15 17:06 Temperature 98.4 F Pulse Rate 104 H 90 94 Respiratory 16 18 18 Rate Blood Pressure 117/87 123/79 140/83 O2 Sat by Pulse 100 99 98 Oximetry 06/07/17 06/07/17 17:56 18:15 Temperature 98.9 F Pulse Rate 99 Respiratory 16 Rate Blood Pressure 136/77 O2 Sat by Pulse 95 Oximetry Medical Decision Making - Medical Decision Making 47-year-old female presented for evaluation of swelling to the right buccal tissue overlying the right mandible. Symptoms started today. Consistent with previous dental abscess. Patient has a significant history of poor dentition. On physical examination the poor dentition is confirmed. There is a poorly fluctuant mass to the right cheek and pain over the right lateral incisor on the mandible. Concern for dental abscess versus cellulitis and will obtain CT with IV contrast as well as labs and provide pain control. Labs revealed no significant abnormalities. CT soft tissue of the facial soft tissue cellulitis adjacent to the right martell-mandible there is also some subperiosteal abscess adjacent to the right lateral lower incisor as well as a periapical abscess. This was discussed with the oral surgeon Dr. Miranda who requested that the patient be started on oral antibiotics and have her follow- up in his office tomorrow. The patient was informed of all results as well as the instructions to follow-up in the oral surgeon's office and she agreed with this plan of care. The patient has a pain contract and will not require instructions for pain control. She is provided with antibiotics and given contact information for the oral surgeon. She was further given return instructions. The patient acknowledged an understanding of all information provided and agreed with this plan of care. - Lab Data Result diagrams: 06/07/17 16:05 06/07/17 16:05 Lab Results 06/07/17 06/07/17 06/07/17 Range/Units 16:05 16:05 16:05 WBC 8.7 (3.8-10.6) k/uL RBC 4.41 (3.80-5.40) m/uL Hgb 14.0 (11.4-16.0) gm/dL Hct 42.6 (34.0-46.0) % MCV 96.6 (80.0-100.0) fL MCH 31.8 (25.0-35.0) pg MCHC 32.9 (31.0-37.0) g/dL RDW 13.1 (11.5-15.5) % Plt Count 357 (150-450) k/uL Neutrophils % 66 % Lymphocytes % 20 % Monocytes % 9 % Eosinophils % 3 % Basophils % 0 % Neutrophils # 5.7 (1.3-7.7) k/uL Lymphocytes # 1.8 (1.0-4.8) k/uL Monocytes # 0.7 (0-1.0) k/uL Eosinophils # 0.3 (0-0.7) k/uL Basophils # 0.0 (0-0.2) k/uL Sodium 140 (137-145) mmol/L Potassium 3.8 (3.5-5.1) mmol/L Chloride 106 (98-107) mmol/L Carbon Dioxide 25 (22-30) mmol/L Anion Gap 9 mmol/L BUN 12 (7-17) mg/dL Creatinine 0.70 (0.52-1.04) mg/dL Est GFR (MDRD) Af Amer >60 (>60 ml/min/1.73 sqM) Est GFR (MDRD) Non-Af >60 (>60 ml/min/1.73 sqM) Glucose 99 (74-99) mg/dL Plasma Lactic Acid Ruben 1.2 (0.7-2.0) mmol/L Calcium 9.8 (8.4-10.2) mg/dL Disposition Clinical Impression: Cellulitis of buccal space of mouth, Periodontal abscess Disposition: HOME SELF-CARE Condition: Stable Instructions: Dental Abscess (ED), Toothache (ED) Additional Instructions: Please use medication as discussed. Please follow up with family doctor if symptoms have not improved over the next two days. Please return to the emergency room if your symptoms increase or worsen or for any other concerns. Prescriptions: Clindamycin [Cleocin] 450 mg PO TID #29 capsule Referrals: Estelle Butterfield DO [Primary Care Provider] - 1-2 days Maximilian Miranda DDS [STAFF PHYSICIAN] - 1-2 days Time of Disposition: 18:09
[2017-06-07 18:16] VITALS: TEMP 98.9
== END 2017-06-07 18:16 | disposition home or self-care (01) ==
LOC: EC 14:54
DX: K12.2 Cellulitis and abscess of mouth (principal); K05.219 Aggressive periodontitis, localized, unspecified severity; I10 Essential (primary) hypertension; F90.9 Attention-deficit hyperactivity disorder, unspecified type; F41.9 Anxiety disorder, unspecified; F17.200 Nicotine dependence, unspecified, uncomplicated; Z86.14 Personal history of Methicillin resistant Staphylococcus aureus infection; Z79.899 Other long term (current) drug therapy; Z88.6 Allergy status to analgesic agent; Z91.013 Allergy to seafood; Z53.20 Procedure and treatment not carried out because of patient's decision for unspecified reasons
CPT/HCPCS: 36415; 80048; 83605; 85025; 87040; 70491; 99284; 96374; 96376; 96361; J1170; Q9967

== ENCOUNTER 2017-06-10 11:56 | Inpatient (IN) | payer OTHER ==
[2017-06-10] MEDS ORDERED: HYDROmorphone 1 MG/ML 1 ML SYRINGE IVP STA (13:25)
[2017-06-10] MEDS ORDERED: LORazepam 1 MG TAB PO STA (13:25)
[2017-06-10] MEDS ORDERED: ONDANSETRON 4 MG/2 ML VIAL IVP STA (13:25)
[2017-06-10] MEDS ORDERED: HYDROmorphone 2 MG/ML 1 ML SYRINGE IVP NR (13:30)
--- NOTE | 2017-06-10 13:37 | ED ---
General Adult HPI - General Source: patient, RN notes reviewed Mode of arrival: ambulatory Limitations: no limitations <Scott Short - Last Filed: 06/10/17 13:30> <Mike Field - Last Filed: 06/10/17 14:38> - General Chief complaint: Recheck/Abnormal Lab/Rx Stated complaint: FACIAL SWELLING Time Seen by Provider: 06/10/17 13:05 - History of Present Illness Initial comments: Patient is a 47-year-old female who presents emergency room today with a chief complaint of swelling and pain to the right side of her face and neck. Patient does admit that she has been experiencing symptoms over the last 2 weeks. She states she was on Augmentin for 10 days. She states she came into the hospital. Days ago had a CAT scan performed was advised that she should be admitted at that time but states that she had to go home. She states that she' s been taking clindamycin last 2 days with no improvement of his symptoms. States seems to be getting worse. Patient denies any other complaints. Patient denies any recent fever, chills, shortness of breath, chest pain, back pain, abdominal pain, nausea or vomiting, numbness or tingling, dysuria or hematuria, constipation or diarrhea, visual changes, or any other complaints. (Scott Short) - Related Data Home Medications Medication Instructions Recorded Confirmed Dextroamphetamine/Amphetamine 30 mg PO QAM 07/16/16 06/10/17 [Adderall] Atenolol [Tenormin] 50 mg PO DAILY 02/24/17 06/10/17 clonazePAM [KlonoPIN] 0.5 mg PO BID 02/24/17 06/10/17 Vitamin B Complex 1 cap PO DAILY 06/07/17 06/10/17 Cholecalciferol [Vitamin D3] 1,000 unit PO DAILY 06/10/17 06/10/17 Previous Rx's Medication Instructions Recorded oxyCODONE-APAP 7.5-325MG [Percocet 1 tab PO Q8HR PRN #90 tab 04/13/17 7.5-325 mg] Allergies Allergy/AdvReac Type Severity Reaction Status Date / Time ibuprofen Allergy Rash/Hives Verified 06/10/17 13:49 morphine Allergy Swelling Verified 06/10/17 13:49 shellfish derived Allergy Anaphylaxis Verified 06/10/17 13:49 tramadol [From Ultram] Allergy Rash/Hives Verified 06/10/17 13:49 Review of Systems ROS Other: All systems not noted in ROS Statement are negative. <Scott Short - Last Filed: 06/10/17 13:30> ROS Other: All systems not noted in ROS Statement are negative. <Mike Field - Last Filed: 06/10/17 14:38> ROS Statement: Those systems with pertinent positive or pertinent negative responses have been documented in the HPI. Past Medical History Past Medical History: Asthma, GERD/Reflux, Hypertension, Pneumonia Additional Past Medical History / Comment(s): COPD, chronic back pain, lumbar degenerative disc disease, insomnia, shingles, hiatal hernia, kidney stones History of Any Multi-Drug Resistant Organisms: MRSA Date of last positivie culture/infection: 09/22/2009 MDRO Source:: neck Past Surgical History: Appendectomy, Back Surgery, Section, Cholecystectomy, Hernia Repair Additional Past Surgical History / Comment(s): Cervical spine fusion with insertion of a metal plate, EGD, colonoscopy, hiatal hernia, lumbar rhizotomy and radiofrequency ablation., Appendectomy, , cholecystectomy, hernia repair Past Anesthesia/Blood Transfusion Reactions: No Reported Reaction Additional Past Anesthesia/Blood Transfusion Reaction / Comment(s): CLAUSTROPHOBIA Past Psychological History: ADD/ADHD, Anxiety Smoking Status: Current every day smoker Past Alcohol Use History: Rare Past Drug Use History: None Reported - Past Family History Father Family Medical History: Cancer Additional Family Medical History / Comment(s): Father at age 48 from lung cancer. Mother Family Medical History: Congestive Heart Failure (CHF), CVA/TIA Additional Family Medical History / Comment(s): Mother is alive at age 68. She has suffered from a CVA and has chronic back problems. Patient has 2 brothers and 4 sisters with no major medical problems. <Scott Short - Last Filed: 06/10/17 13:30> General Exam Limitations: no limitations <Scott Short - Last Filed: 06/10/17 13:30> <Mike Field - Last Filed: 06/10/17 14:38> - General Exam Comments Initial Comments: General: The patient is awake and alert, in no distress, and does not appear acutely ill. Eye: Pupils are equal, round and reactive to light, extra-ocular movements are intact. No nystagmus. There is normal conjunctiva bilaterally. No signs of icterus. Ears, nose, mouth and throat: There are moist mucous membranes and no oral lesions. Neck: The neck is supple, there is no tenderness or JVD. Cardiovascular: There is a regular rate and rhythm. No murmur, rub or gallop is appreciated. Respiratory: Lungs are clear to auscultation, respirations are non-labored, breath sounds are equal. No wheezes, stridor, rales, or rhonchi. Musculoskeletal: Normal ROM, no tenderness. Strength 5/5. Sensation intact. Pulses equal bilaterally 2+. Neurological: A&O x 3. CN II-XII intact, There are no obvious motor or sensory deficits. Coordination appears grossly intact. Speech is normal. Skin: Does have some redness and swelling to the right side of the neck and face over the right side of the cheek. Tender on palpation in these areas towards the right ear. No palpable abscess appreciated. Psychiatric: Cooperative, appropriate mood & affect, normal judgment. (Scott Short) Course <Scott Short - Last Filed: 06/10/17 13:30> <Mike Field - Last Filed: 06/10/17 14:38> Vital Signs 06/10/17 06/10/17 12:34 13:45 Temperature 97.2 F L Pulse Rate 107 H 100 Respiratory 20 18 Rate Blood Pressure 132/91 129/92 O2 Sat by Pulse 100 97 Oximetry - Reevaluation(s) Reevaluation #1: 06/10/17 14:37 Physician ward assistant supervision: I did proceed a [id number] evaluation the patient did discuss the findings with her. Patient does demonstrate tenderness and edema to the right mandible as well as the right inferior orbit region. This does extend around to the mastoid on the right. Her lab work is negative for acute findings at this time though she does have a history of mastoiditis in the past did discuss the case with the hospitalist Dr. Lee patient will be admitted with consultation by oral surgery. (Mike Field) Medical Decision Making <Scott Short - Last Filed: 06/10/17 13:30> - Lab Data Result diagrams: 06/10/17 13:46 06/10/17 13:46 <Mike Field - Last Filed: 06/10/17 14:38> - Medical Decision Making Patient's recent visit was reviewed. She did have CT of the neck with contrast revealing soft tissue cellulitis adjacent to the right martell-mandible. Possible subperiosteal abscess adjacent to the right lateral lower incisor. Periapical abscess noted to multiple bilateral mandible molar premolar tooth. Case discussed with attending physician Dr. Field. Patient will be started on Zosyn here in emergency room. Patient is a patient treatment failure profile a full dose of Augmentin and clindamycin for the last 2 days movement. (Scott Short) - Lab Data Lab Results 06/10/17 06/10/17 06/10/17 Range/Units 13:46 13:46 13:46 WBC 10.2 (3.8-10.6) k/uL RBC 4.45 (3.80-5.40) m/uL Hgb 14.1 (11.4-16.0) gm/dL Hct 43.5 (34.0-46.0) % MCV 97.9 (80.0-100.0) fL MCH 31.7 (25.0-35.0) pg MCHC 32.4 (31.0-37.0) g/dL RDW 14.5 (11.5-15.5) % Plt Count 375 (150-450) k/uL Neutrophils % 73 % Lymphocytes % 14 % Monocytes % 10 % Eosinophils % 2 % Basophils % 1 % Neutrophils # 7.4 (1.3-7.7) k/uL Lymphocytes # 1.4 (1.0-4.8) k/uL Monocytes # 1.0 (0-1.0) k/uL Eosinophils # 0.2 (0-0.7) k/uL Basophils # 0.1 (0-0.2) k/uL Sodium 142 (137-145) mmol/L Potassium 4.1 (3.5-5.1) mmol/L Chloride 105 (98-107) mmol/L Carbon Dioxide 28 (22-30) mmol/L Anion Gap 9 mmol/L BUN 9 (7-17) mg/dL Creatinine 0.71 (0.52-1.04) mg/dL Est GFR (MDRD) Af Amer >60 (>60 ml/min/1.73 sqM) Est GFR (MDRD) Non-Af >60 (>60 ml/min/1.73 sqM) Glucose 96 (74-99) mg/dL Plasma Lactic Acid Ruben 1.3 (0.7-2.0) mmol/L Calcium 10.6 H (8.4-10.2) mg/dL Total Bilirubin 0.2 (0.2-1.3) mg/dL AST 33 (14-36) U/L ALT 49 (9-52) U/L Alkaline Phosphatase 143 H (38-126) U/L Total Protein 7.4 (6.3-8.2) g/dL Albumin 4.1 (3.5-5.0) g/dL Urine Color Urine Appearance (Clear) Urine pH (5.0-8.0) Ur Specific [place] (1.001-1.035) Urine Protein (Negative) Urine Glucose (UA) (Negative) Urine Ketones (Negative) Urine Blood (Negative) Urine Nitrite (Negative) Urine Bilirubin (Negative) Urine Urobilinogen (<2.0) mg/dL Ur Leukocyte Esterase (Negative) Urine RBC (0-5) /hpf Urine WBC (0-5) /hpf Ur Squamous Epith Cells (0-4) /hpf Urine Bacteria (None) /hpf 06/10/17 Range/Units 13:46 WBC (3.8-10.6) k/uL RBC (3.80-5.40) m/uL Hgb (11.4-16.0) gm/dL Hct (34.0-46.0) % MCV (80.0-100.0) fL MCH (25.0-35.0) pg MCHC (31.0-37.0) g/dL RDW (11.5-15.5) % Plt Count (150-450) k/uL Neutrophils % % Lymphocytes % % Monocytes % % Eosinophils % % Basophils % % Neutrophils # (1.3-7.7) k/uL Lymphocytes # (1.0-4.8) k/uL Monocytes # (0-1.0) k/uL Eosinophils # (0-0.7) k/uL Basophils # (0-0.2) k/uL Sodium (137-145) mmol/L Potassium (3.5-5.1) mmol/L Chloride (98-107) mmol/L Carbon Dioxide (22-30) mmol/L Anion Gap mmol/L BUN (7-17) mg/dL Creatinine (0.52-1.04) mg/dL Est GFR (MDRD) Af Amer (>60 ml/min/1.73 sqM) Est GFR (MDRD) Non-Af (>60 ml/min/1.73 sqM) Glucose (74-99) mg/dL Plasma Lactic Acid Ruben (0.7-2.0) mmol/L Calcium (8.4-10.2) mg/dL Total Bilirubin (0.2-1.3) mg/dL AST (14-36) U/L ALT (9-52) U/L Alkaline Phosphatase (38-126) U/L Total Protein (6.3-8.2) g/dL Albumin (3.5-5.0) g/dL Urine Color Colorless Urine Appearance Clear (Clear) Urine pH 5.5 (5.0-8.0) Ur Specific [place] 1.002 (1.001-1.035) Urine Protein Negative (Negative) Urine Glucose (UA) Negative (Negative) Urine Ketones Negative (Negative) Urine Blood Trace H (Negative) Urine Nitrite Negative (Negative) Urine Bilirubin Negative (Negative) Urine Urobilinogen <2.0 (<2.0) mg/dL Ur Leukocyte Esterase Negative (Negative) Urine RBC <1 (0-5) /hpf Urine WBC <1 (0-5) /hpf Ur Squamous Epith Cells 1 (0-4) /hpf Urine Bacteria Rare H (None) /hpf Disposition Time of Disposition: 13:37 <Scott Short - Last Filed: 06/10/17 13:30> <Mike Field - Last Filed: 06/10/17 14:38> Clinical Impression: Facial cellulitis, Periapical abscess Disposition: ADMITTED IP TO THIS [facility] Condition: Good Referrals: Estelle Butterfield DO [Primary Care Provider] - 1-2 days
[2017-06-10 14:14] LABS: Basophils # (A) 0.1 k/uL (0-0.2); Basophils % (A) 1 %; CH 31.3; CHCM 32.1; Eosinophils # (A) 0.2 k/uL (0-0.7); Eosinophils % (A) 2 %; HCT 43.5 % (34.0-46.0); HDW 2.33; HGB 14.1 gm/dL (11.4-16.0); Luc # (Auto) 0.08; Luc % (Auto) 1; Lymphocytes # (A) 1.4 k/uL (1.0-4.8); Lymphocytes % (A) 14 %; MCH 31.7 pg (25.0-35.0); MCHC 32.4 g/dL (31.0-37.0); MCV 97.9 fL (80.0-100.0); Mean Platelet Volume 7.1; Monocytes % (A) 10 %; Neutrophils # (A) 7.4 k/uL (1.3-7.7); Neutrophils % (A) 73 %; RBC 4.45 m/uL (3.80-5.40); RDW 14.5 % (11.5-15.5); WBC 10.2 k/uL (3.8-10.6)
[2017-06-10 14:20] LABS: ALT 49 U/L (9-52); AST 33 U/L (14-36); Alkaline Phosphatase 143 U/L (38-126); Anion Gap 9 mmol/L; Blood Urea Nitrogen 9 mg/dL (7-17); Calcium 10.6 mg/dL (8.4-10.2); Carbon Dioxide 28 mmol/L (22-30); Chloride 105 mmol/L (98-107); Glucose 96 mg/dL (74-99); Non-African American GFR(MDRD) >60 (>60 ml/min/1.73 sqM); Potassium 4.1 mmol/L (3.5-5.1); Sodium 142 mmol/L (137-145); Total Bilirubin 0.2 mg/dL (0.2-1.3); Total Protein 7.4 g/dL (6.3-8.2)
[2017-06-10 14:22] LABS: Appearance,Urine Clear (Clear); Bacteria,Urine Rare /hpf; Bilirubin,Urine Negative (Negative); Glucose,Urine (UA) Negative (Negative); Ketones,Urine Negative (Negative); Leukocyte Esterase,Urine Negative (Negative); Nitrite,Urine Negative (Negative); PH, Urine 5.5 (5.0-8.0); Particle Count 1021; Protein,Urine Negative (Negative); RBC,Urine <1 /hpf (0-5); Specific Gravity,Urine 1.002 (1.001-1.035); Squamous Epithelial Cell,Urine 1 /hpf (0-4); UA Billing (MACRO vs. MICRO) MICRO; Urobilinogen,Urine <2.0 mg/dL (<2.0); WBC,Urine <1 /hpf (0-5)
[2017-06-10] MEDS ORDERED: NALOXONE 0.4 MG/ML 1 ML VIAL IV PRN (14:33)
[2017-06-10] MEDS ORDERED: ONDANSETRON 4 MG/2 ML VIAL IVP PRN (14:33)
[2017-06-10] MEDS: HYDROmorphone 2 MG/ML 1 ML SYRINGE IVP PRN ×3 (15:02→21:17)
--- NOTE | 2017-06-10 16:42 | P.HPIM ---
History of Present Illness H&P Date: 06/10/17 Chief Complaint: submandibular pain 47y/o female that comes with sxs of mandibular pain and swelling. She saw her doctor and prescribe her Augmentin. Denies any fever or chills. Says the pain is getting worse. She denies any recent dental work Review of Systems All systems: negative Constitutional: Denies chills, Denies fever Ears, nose, mouth and throat: Reports mouth pain, Reports odynophagia Cardiovascular: Denies claudication, Denies syncope Respiratory: Denies dyspnea, Denies hemoptysis, Denies pleurisy, Denies sleep apnea Gastrointestinal: Denies diarrhea, Denies indigestion, Denies nausea, Denies vomiting Genitourinary: Denies dysuria, Denies hematuria Musculoskeletal: Denies myalgias, Denies neck pain Musculoskeletal: absent: ankle swelling Integumentary: Denies pruritus, Denies rash Neurological: Denies numbness, Denies paralysis, Denies weakness Psychiatric: Denies anxiety, Denies depression, Denies memory loss Hematologic/Lymphatic: Denies easy bleeding, Denies lymphadenopathy Allergic/Immunologic: Denies wheezing Past Medical History Past Medical History: Asthma, GERD/Reflux, Hypertension, Pneumonia Additional Past Medical History / Comment(s): COPD, chronic back pain, lumbar degenerative disc disease, insomnia, shingles, hiatal hernia, kidney stones History of Any Multi-Drug Resistant Organisms: MRSA Date of last positivie culture/infection: 09/22/2009 MDRO Source:: neck Past Surgical History: Appendectomy, Back Surgery, Section, Cholecystectomy, Hernia Repair Additional Past Surgical History / Comment(s): Cervical spine fusion with insertion of a metal plate, EGD, colonoscopy, hiatal hernia, lumbar rhizotomy and radiofrequency ablation., Appendectomy, , cholecystectomy, hernia repair Past Anesthesia/Blood Transfusion Reactions: No Reported Reaction Additional Past Anesthesia/Blood Transfusion Reaction / Comment(s): CLAUSTROPHOBIA Smoking Status: Current every day smoker - Past Family History Father Family Medical History: Cancer Additional Family Medical History / Comment(s): Father at age 48 from lung cancer. Mother Family Medical History: Congestive Heart Failure (CHF), CVA/TIA Additional Family Medical History / Comment(s): Mother is alive at age 68. She has suffered from a CVA and has chronic back problems. Patient has 2 brothers and 4 sisters with no major medical problems. Medications and Allergies Home Medications Medication Instructions Recorded Confirmed Type Dextroamphetamine/Amphetamine 30 mg PO QAM 07/16/16 06/10/17 History [Adderall] Atenolol [Tenormin] 50 mg PO DAILY 02/24/17 06/10/17 History clonazePAM [KlonoPIN] 0.5 mg PO BID 02/24/17 06/10/17 History oxyCODONE-APAP 7.5-325MG [Percocet 1 tab PO Q8HR PRN #90 tab 04/13/17 06/10/17 Rx 7.5-325 mg] Vitamin B Complex 1 cap PO DAILY 06/07/17 06/10/17 History Cholecalciferol [Vitamin D3] 1,000 unit PO DAILY 06/10/17 06/10/17 History Allergies Allergy/AdvReac Type Severity Reaction Status Date / Time ibuprofen Allergy Rash/Hives Verified 06/10/17 13:49 morphine Allergy Swelling Verified 06/10/17 13:49 shellfish derived Allergy Anaphylaxis Verified 06/10/17 13:49 tramadol [From Ultram] Allergy Rash/Hives Verified 06/10/17 13:49 Physical Exam Vitals: Vital Signs Temp Pulse Pulse Resp BP BP Pulse Ox 06/10/17 16:00 97.0 F L 92 18 129/94 96 06/10/17 15:00 98 F 89 18 121/78 98 06/10/17 13:45 100 18 129/92 97 06/10/17 12:34 97.2 F L 107 H 20 132/91 100 Intake and Output 06/10/17 06/10/17 06/10/17 06:59 14:59 22:59 Other: Weight 68.946 kg Patient Weight 06/11/17 06:59 Weight 68.946 kg - Constitutional General appearance: no acute distress - EENT Eyes: EOMI, PERRLA - Neck Neck: no lymphadenopathy, no stridor - Respiratory Respiratory: bilateral: CTA, negative: rales, wheezing - Cardiovascular Rhythm: regular Heart sounds: normal: S1, S2 - Gastrointestinal General gastrointestinal: normal bowel sounds, soft - Integumentary Integumentary: normal, no rash - Neurologic Neurologic: CNII-XII intact - Musculoskeletal Musculoskeletal: gait normal No lower extremity edema Results CBC & Chem 7: 06/10/17 13:46 06/10/17 13:46 Labs: Abnormal Lab Results - Last 24 Hours (Table) 06/10/17 06/10/17 Range/Units 13:46 13:46 Calcium 10.6 H (8.4-10.2) mg/dL Alkaline Phosphatase 143 H (38-126) U/L Urine Blood Trace H (Negative) Urine Bacteria Rare H (None) /hpf Assessment and Plan (1) Submandibular abscess Narrative/Plan: We'll start IV Unasyn and Clinda Oral surgery to evaluate Panoramic x-rays ordered Current Visit: Yes Status: Acute Code(s): K12.2 - CELLULITIS AND ABSCESS OF MOUTH SNOMED Code(s): 26727901 (2) Hypertension Narrative/Plan: Stable, continue atenolol Current Visit: Yes Status: Acute Code(s): I10 - ESSENTIAL (PRIMARY) HYPERTENSION SNOMED Code(s): 55750909 (3) Facial cellulitis Narrative/Plan: Unasyn and Clinda Current Visit: Yes Status: Acute Code(s): L03.211 - CELLULITIS OF FACE SNOMED Code(s): 667506595 (4) COPD (chronic obstructive pulmonary disease) Narrative/Plan: Currently stable no clinical signs of wheezing Current Visit: Yes Status: Acute Code(s): J44.9 - CHRONIC OBSTRUCTIVE PULMONARY DISEASE, UNSPECIFIED SNOMED Code(s): 80977885 (5) GERD (gastroesophageal reflux disease) Current Visit: Yes Status: Acute Code(s): K21.9 - GASTRO-ESOPHAGEAL REFLUX DISEASE WITHOUT ESOPHAGITIS SNOMED Code(s): 192381017
[2017-06-10] MEDS: AMPICILLIN-SULBACTAM 3 GM in SODIUM CHLORIDE 0.9% 100 ML IVPB SCH (17:31)
--- NOTE | 2017-06-10 17:42 | XR ---
EXAMINATION TYPE: XR Panorex , ONE VIEW DATE OF EXAM ORDERED: 06/10/2017 HISTORY: r/o mandibular abcsess . REFERENCE: None. FINDINGS: There are innumerable dental caries in all the teeth. There is lucency around the root of t he left lower second incisor and canine. There is also lucency surrounding the roots of the right low er canine and first molar. IMPRESSION: 1. POOR DENTITION. 2. I CANNOT EXCLUDE APICAL ABSCESSES IN THE TEETH DESCRIBED.
[2017-06-10] MEDS: LORazepam 2 MG/ML INJ IV PRN (21:17)
[2017-06-11] MEDS: CLINDAMYCIN 600 MG in DEXTROSE 5% IN WATER 50 ML IVPB SCH ×4 (00:22→08:26)
[2017-06-11] MEDS: HYDROmorphone 2 MG/ML 1 ML SYRINGE IVP PRN ×3 (00:24→06:20)
[2017-06-11] MEDS: AMPICILLIN-SULBACTAM 3 GM in SODIUM CHLORIDE 0.9% 100 ML IVPB SCH ×3 (01:07→12:28)
[2017-06-11] MEDS: LORazepam 2 MG/ML INJ IV PRN (06:20)
[2017-06-11 07:38] VITALS: BP 101/69; PULSE 98; RESP 20; TEMP 97.9
[2017-06-11 07:53] LABS: Basophils % (A) 0 %; CH 31.3; CHCM 32.3; Eosinophils # (A) 0.2 k/uL (0-0.7); Eosinophils % (A) 3 %; HCT 41.8 % (34.0-46.0); HDW 2.46; HGB 13.3 gm/dL (11.4-16.0); Luc # (Auto) 0.22; Luc % (Auto) 3; Lymphocytes # (A) 1.5 k/uL (1.0-4.8); Lymphocytes % (A) 17 %; MCH 31.1 pg (25.0-35.0); MCHC 31.9 g/dL (31.0-37.0); MCV 97.3 fL (80.0-100.0); Mean Platelet Volume 6.7; Monocytes # (A) 0.9 k/uL (0-1.0); Monocytes % (A) 10 %; Neutrophils # (A) 5.8 k/uL (1.3-7.7); Neutrophils % (A) 67 %; RDW 13.2 % (11.5-15.5); WBC 8.5 k/uL (3.8-10.6); WBC (Perox) 8.85
[2017-06-11 08:01] LABS: ALT 54 U/L (9-52); AST 48 U/L (14-36); Alkaline Phosphatase 109 U/L (38-126); Anion Gap 8 mmol/L; Blood Urea Nitrogen 12 mg/dL (7-17); Calcium 9.4 mg/dL (8.4-10.2); Carbon Dioxide 25 mmol/L (22-30); Chloride 106 mmol/L (98-107); Glucose 104 mg/dL (74-99); Non-African American GFR(MDRD) >60 (>60 ml/min/1.73 sqM); Potassium 4.3 mmol/L (3.5-5.1); Sodium 139 mmol/L (137-145); Total Bilirubin 0.3 mg/dL (0.2-1.3); Total Protein 6.1 g/dL (6.3-8.2)
--- NOTE | 2017-06-11 08:04 | P.PN ---
Subjective Progress Note Date: 06/11/17 Principal diagnosis: submandibular abscess 47 year old female that was admitted yesterday with submandibular abscess. Patient had been treated with Augmentin outpatient basis but continued to have increasing pain. Patient currently on IV antibiotics. Denies any worsening symptoms but also denies symptoms not improving. No fever no chills Objective - Vital Signs Vital signs: Vital Signs Temp 97.9 F 06/11/17 07:00 Pulse 98 06/11/17 07:00 Resp 20 06/11/17 07:00 BP 101/69 06/11/17 07:00 Pulse Ox 91 L 06/11/17 07:00 Intake & Output 06/10/17 06/11/17 06/11/17 18:59 06:59 18:59 Intake Total 250 Balance 250 Weight 68.946 kg Intake: Intake, IV Titration 150 Amount Ampicillin-Sulbactam 3 gm 100 In Sodium Chloride 0.9% 100 ml @ 100 mls/hr IVPB Q6HR YUSRA Rx#:[id number] Clindamycin 600 mg In 50 Dextrose 5% in Water 50 ml @ 100 mls/hr IVPB Q8HR YUSRA Rx#:[id number] Oral 100 Other: # Voids 1 - EENT EENT Comment(s): Right mandible tender to touch right side of the neck tender to touch also. No redness no warmth - Respiratory Respiratory: bilateral: CTA, negative: rales, wheezing - Cardiovascular Rhythm: regular Heart sounds: normal: S1, S2 - Gastrointestinal General gastrointestinal: Present: normal bowel sounds, soft - Additional findings Additional findings: No lower extremity edema positive pulses - Labs CBC & Chem 7: 06/11/17 07:16 06/10/17 13:46 Labs: Abnormal Lab Results - Last 24 Hours (Table) 06/10/17 06/10/17 Range/Units 13:46 13:46 Calcium 10.6 H (8.4-10.2) mg/dL Alkaline Phosphatase 143 H (38-126) U/L Urine Blood Trace H (Negative) Urine Bacteria Rare H (None) /hpf Microbiology - Last 24 Hours (Table) 06/10/17 13:46 Urine Culture - Preliminary Urine,Voided Assessment and Plan (1) Submandibular abscess Narrative/Plan: Currently on IV Clinda and IV Unasyn Await eval from oral surgeon Patient still concerned that her pain is not controlled will increase Dilaudid from 1 mg to 1 to 1.5 mg as needed Current Visit: Yes Status: Acute Code(s): K12.2 - CELLULITIS AND ABSCESS OF MOUTH SNOMED Code(s): 24805312 (2) Hypertension Narrative/Plan: Stable, continue atenolol Current Visit: Yes Status: Acute Code(s): I10 - ESSENTIAL (PRIMARY) HYPERTENSION SNOMED Code(s): 28925036 (3) COPD (chronic obstructive pulmonary disease) Narrative/Plan: Currently stable no clinical signs of wheezing Current Visit: Yes Status: Acute Code(s): J44.9 - CHRONIC OBSTRUCTIVE PULMONARY DISEASE, UNSPECIFIED SNOMED Code(s): 50892760 (4) GERD (gastroesophageal reflux disease) Current Visit: Yes Status: Acute Code(s): K21.9 - GASTRO-ESOPHAGEAL REFLUX DISEASE WITHOUT ESOPHAGITIS SNOMED Code(s): 362918863 Plan: Continue IV antibiotics await input from oral surgeon Labs pending at the time of this note.
[2017-06-11] MEDS ORDERED: HYDROmorphone 2 MG/ML 1 ML SYRINGE IVP PRN (09:16)
--- NOTE | 2017-06-11 12:39 | P.DS ---
Providers Date of admission: 06/10/17 14:37 Expected date of discharge: 06/11/17 Attending physician: Cheryl Arcos MD Consults: 06/10/17 14:33 Consult Physician Stat Consulting Provider: Maximilian Miranda Consult Reason/Comments: Facial cellulitis, periapical abscess Do you want consulting provider notified?: Yes Primary care physician: Estelle Butterfield - Discharge Diagnosis(es) (1) Submandibular abscess Current Visit: Yes Status: Acute (2) Hypertension Current Visit: Yes Status: Acute (3) COPD (chronic obstructive pulmonary disease) Current Visit: Yes Status: Acute (4) GERD (gastroesophageal reflux disease) Current Visit: Yes Status: Acute Hospital Course: 47-year-old female that comes in with symptoms of pain in the right mandible swelling. Patient had started on Augmentin but her pain continued. Patient was evaluated by the oral surgeon. Thinks that symptoms are secondary to a tooth abscess. And he would like to see her in his office for possible tooth extraction. So patient will be discharged his office per his instructions. She was given an appointment at [address] [place] [address]. Time spent with discharge 32 minutes Patient Condition at Discharge: Stable Plan - Discharge Summary Discharge Rx Participant: Yes New Discharge Prescriptions: No Action Dextroamphetamine/Amphetamine [Adderall] 30 mg PO QAM clonazePAM [KlonoPIN] 0.5 mg PO BID Atenolol [Tenormin] 50 mg PO DAILY oxyCODONE-APAP 7.5-325MG [Percocet 7.5-325 mg] 1 tab PO Q8HR PRN #90 tab PRN Reason: Pain Vitamin B Complex 1 cap PO DAILY Cholecalciferol [Vitamin D3] 1,000 unit PO DAILY Discharge Medication List Dextroamphetamine/Amphetamine [Adderall] 30 mg PO QAM 07/16/16 [History] Atenolol [Tenormin] 50 mg PO DAILY 02/24/17 [History] clonazePAM [KlonoPIN] 0.5 mg PO BID 02/24/17 [History] oxyCODONE-APAP 7.5-325MG [Percocet 7.5-325 mg] 1 tab PO Q8HR PRN #90 tab [Rx] Vitamin B Complex 1 cap PO DAILY 06/07/17 [History] Cholecalciferol [Vitamin D3] 1,000 unit PO DAILY 06/10/17 [History] Follow up Appointment(s)/Referral(s): Estelle Butterfield DO [Primary Care Provider] - 1-2 days
== END 2017-06-11 12:50 | disposition home or self-care (01) | DRG 114 ==
LOC: EC 11:56 → 4MS4W 14:37
PROVIDERS: ADMIT Internal Medicine; ATTEND Internal Medicine
DX: K12.2 Cellulitis and abscess of mouth (principal); I10 Essential (primary) hypertension; L03.211 Cellulitis of face; K04.7 Periapical abscess without sinus; K21.9 Gastro-esophageal reflux disease without esophagitis; M51.36 Other intervertebral disc degeneration, lumbar region; G89.29 Other chronic pain; G47.00 Insomnia, unspecified; K44.9 Diaphragmatic hernia without obstruction or gangrene; F40.240 Claustrophobia; F90.9 Attention-deficit hyperactivity disorder, unspecified type; F17.200 Nicotine dependence, unspecified, uncomplicated; J44.9 Chronic obstructive pulmonary disease, unspecified; Z79.899 Other long term (current) drug therapy; Z86.19 Personal history of other infectious and parasitic diseases; Z87.442 Personal history of urinary calculi; Z86.14 Personal history of Methicillin resistant Staphylococcus aureus infection; Z90.49 Acquired absence of other specified parts of digestive tract; Z98.1 Arthrodesis status; Z87.01 Personal history of pneumonia (recurrent); Z91.013 Allergy to seafood; Z88.5 Allergy status to narcotic agent; Z88.8 Allergy status to other drugs, medicaments and biological substances
CPT/HCPCS: 36415; 70355; 80053; 81001; 83605; 85025; 87040; 87086; 96374; 96375; 96376; 99284

== ENCOUNTER 2017-06-12 17:29 | Emergency (ER) | payer OTHER ==
[2017-06-12] MEDS ORDERED: HYDROmorphone 0.5 MG/0.5 ML SYRINGE IVP STA (18:05)
[2017-06-12] MEDS ORDERED: RX INFO: IV CONTRAST WAS GIVEN 1 EACH MISC MISCELLANE PRN (18:05)
[2017-06-12] MEDS ORDERED: ONDANSETRON 4 MG/2 ML VIAL IVP STA (18:05)
[2017-06-12] MEDS ORDERED: ACETAMINOPHEN TAB 500 MG TAB PO STA (18:05)
[2017-06-12 18:45] VITALS: RESP 18
--- NOTE | 2017-06-12 19:00 | ED ---
ENT HPI - General Chief complaint: ENT Stated complaint: Facial Pain Time Seen by Provider: 06/12/17 17:55 Source: patient, RN notes reviewed Mode of arrival: ambulatory Limitations: no limitations - History of Present Illness Initial comments: This a 47-year-old female presents emergency Department chief complaint of facial pain, facial swelling, fever. Patient states she was admitted on for facial cellulitis, dental abscess. Patient states that she was discharge on Wednesday and sent over to oral surgery in which she had 6 teeth extracted. Patient states she was sedated for this. Patient had increasing pain today along with the fever. Patient states no takes Percocet at home for her pain has not taken one in several hours. Patient states that she has ALLERGY to ibuprofen morphine and tramadol. Patient denies any difficult swallowing, headache or dizziness. Patient states that she was on Augmentin completed 10 day course and is currently taking clindamycin. - Related Data Home Medications Medication Instructions Recorded Confirmed Dextroamphetamine/Amphetamine 30 mg PO QAM 07/16/16 06/12/17 [Adderall] Atenolol [Tenormin] 50 mg PO DAILY 02/24/17 06/12/17 clonazePAM [KlonoPIN] 0.5 mg PO BID 02/24/17 06/12/17 Vitamin B Complex 1 cap PO DAILY 06/07/17 06/12/17 Cholecalciferol [Vitamin D3] 1,000 unit PO DAILY 06/10/17 06/12/17 Clindamycin HCl 300 mg PO Q12HR 06/12/17 06/12/17 Gabapentin [Neurontin] 400 mg PO TID 06/12/17 06/12/17 Methylphenidate HCl [Ritalin] 10 mg PO BID 06/12/17 06/12/17 oxyCODONE-APAP 7.5-325MG [Percocet 1 tab PO TID PRN 06/12/17 06/12/17 7.5-325 mg] Allergies Allergy/AdvReac Type Severity Reaction Status Date / Time ibuprofen Allergy Rash/Hives Verified 06/12/17 18:47 morphine Allergy Swelling Verified 06/12/17 18:47 shellfish derived Allergy Anaphylaxis Verified 06/12/17 18:47 tramadol [From Ultram] Allergy Rash/Hives Verified 06/12/17 18:47 Review of Systems ROS Statement: Those systems with pertinent positive or pertinent negative responses have been documented in the HPI. ROS Other: All systems not noted in ROS Statement are negative. Past Medical History Past Medical History: Asthma, GERD/Reflux, Hypertension, Pneumonia Additional Past Medical History / Comment(s): COPD, chronic back pain, lumbar degenerative disc disease, insomnia, shingles, hiatal hernia, kidney stones History of Any Multi-Drug Resistant Organisms: MRSA Date of last positivie culture/infection: 09/22/2009 MDRO Source:: neck Past Surgical History: Appendectomy, Back Surgery, Section, Cholecystectomy, Hernia Repair Additional Past Surgical History / Comment(s): Cervical spine fusion with insertion of a metal plate, EGD, colonoscopy, hiatal hernia, lumbar rhizotomy and radiofrequency ablation., Appendectomy, , cholecystectomy, hernia repair Past Anesthesia/Blood Transfusion Reactions: No Reported Reaction Additional Past Anesthesia/Blood Transfusion Reaction / Comment(s): CLAUSTROPHOBIA Past Psychological History: ADD/ADHD, Anxiety Smoking Status: Current every day smoker Past Alcohol Use History: None Reported Past Drug Use History: None Reported - Past Family History Father Family Medical History: Cancer Additional Family Medical History / Comment(s): Father at age 48 from lung cancer. Mother Family Medical History: Congestive Heart Failure (CHF), CVA/TIA Additional Family Medical History / Comment(s): Mother is alive at age 68. She has suffered from a CVA and has chronic back problems. Patient has 2 brothers and 4 sisters with no major medical problems. General Exam Limitations: no limitations General appearance: alert, in no apparent distress Head exam: Present: atraumatic, normocephalic, normal inspection Eye exam: Present: normal appearance, PERRL, EOMI. Absent: scleral icterus, conjunctival injection, periorbital swelling ENT exam: Present: mucous membranes moist, TM's normal bilaterally, normal external ear exam, other (Tenderness the right side of the face along the right mandible). Absent: normal oropharynx (Edentulous, multiple recent dental extractions with no obvious abscess, multiple areas of dental erosion) Neck exam: Present: normal inspection, full ROM. Absent: tenderness, meningismus, lymphadenopathy Respiratory exam: Present: normal lung sounds bilaterally. Absent: respiratory distress, wheezes, rales, rhonchi, stridor Cardiovascular Exam: Present: regular rate, normal rhythm, normal heart sounds. Absent: systolic murmur, diastolic murmur, rubs, gallop, clicks Neurological exam: Present: alert, oriented X3, CN II-XII intact Skin exam: Present: warm, dry, intact, normal color. Absent: rash Course Vital Signs 06/12/17 06/12/17 06/12/17 17:46 18:45 19:46 Temperature 100.7 F H 97.5 F L 98.5 F Pulse Rate 99 76 71 Respiratory 20 18 18 Rate Blood Pressure 118/70 100/67 96/64 O2 Sat by Pulse 97 95 95 Oximetry Medical Decision Making - Medical Decision Making 47-year-old female presented unresponsive for dental pain. Patient CT does not show any evidence of abscess. Patient pain is most likely recent extractions that happened yesterday. Patient states that her Percocet was not working. I went updated patient regarding her CT and lab work patient was sleeping, with no difficulty until she was awoken and stated that she needed more pain meds. Advised that she can follow-up with her oral surgeon on Wednesday and return for any worsening symptoms. Patient will continue her antibiotics as directed. - Lab Data Result diagrams: 06/12/17 18:55 06/12/17 18:55 Lab Results 06/12/17 06/12/17 06/12/17 Range/Units 18:55 18:55 18:55 WBC 8.1 (3.8-10.6) k/uL RBC 4.10 (3.80-5.40) m/uL Hgb 12.9 (11.4-16.0) gm/dL Hct 38.8 (34.0-46.0) % MCV 94.6 (80.0-100.0) fL MCH 31.6 (25.0-35.0) pg MCHC 33.4 (31.0-37.0) g/dL RDW 13.1 (11.5-15.5) % Plt Count 345 (150-450) k/uL Neutrophils % 72 % Lymphocytes % 13 % Monocytes % 9 % Eosinophils % 4 % Basophils % 0 % Neutrophils # 5.8 (1.3-7.7) k/uL Lymphocytes # 1.0 (1.0-4.8) k/uL Monocytes # 0.7 (0-1.0) k/uL Eosinophils # 0.3 (0-0.7) k/uL Basophils # 0.0 (0-0.2) k/uL Sodium 140 (137-145) mmol/L Potassium 4.5 (3.5-5.1) mmol/L Chloride 108 H (98-107) mmol/L Carbon Dioxide 24 (22-30) mmol/L Anion Gap 8 mmol/L BUN 6 L (7-17) mg/dL Creatinine 0.70 (0.52-1.04) mg/dL Est GFR (MDRD) Af Amer >60 (>60 ml/min/1.73 sqM) Est GFR (MDRD) Non-Af >60 (>60 ml/min/1.73 sqM) Glucose 119 H (74-99) mg/dL Plasma Lactic Acid Ruben 1.2 (0.7-2.0) mmol/L Calcium 10.1 (8.4-10.2) mg/dL Disposition Clinical Impression: Pain, dental, Status post tooth extraction Disposition: HOME SELF-CARE Condition: Stable Instructions: Toothache (ED) Additional Instructions: Please return to the Emergency Department if symptoms worsen or any other concerns. Referrals: Estelle Butterfield DO [Primary Care Provider] - 1-2 days Maximilian Miranda DDS [STAFF PHYSICIAN] - 1-2 days Time of Disposition: 20:13
[2017-06-12 19:11] LABS: Basophils % (A) 0 %; CH 31.4; CHCM 33.3; Eosinophils # (A) 0.3 k/uL (0-0.7); Eosinophils % (A) 4 %; HCT 38.8 % (34.0-46.0); HDW 2.45; HGB 12.9 gm/dL (11.4-16.0); Luc # (Auto) 0.17; Luc % (Auto) 2; Lymphocytes % (A) 13 %; MCH 31.6 pg (25.0-35.0); MCHC 33.4 g/dL (31.0-37.0); MCV 94.6 fL (80.0-100.0); Mean Platelet Volume 6.7; Monocytes # (A) 0.7 k/uL (0-1.0); Monocytes % (A) 9 %; Neutrophils # (A) 5.8 k/uL (1.3-7.7); Neutrophils % (A) 72 %; RDW 13.1 % (11.5-15.5); WBC 8.1 k/uL (3.8-10.6); WBC (Perox) 8.26
[2017-06-12 19:12] LABS: Anion Gap 8 mmol/L; Blood Urea Nitrogen 6 mg/dL (7-17); Calcium 10.1 mg/dL (8.4-10.2); Carbon Dioxide 24 mmol/L (22-30); Chloride 108 mmol/L (98-107); Glucose 119 mg/dL (74-99); Non-African American GFR(MDRD) >60 (>60 ml/min/1.73 sqM); Potassium 4.5 mmol/L (3.5-5.1); Sodium 140 mmol/L (137-145)
[2017-06-12 19:48] VITALS: BP 96/64; PULSE 71; TEMP 98.5
--- NOTE | 2017-06-12 20:03 | CT ---
EXAMINATION TYPE: CT soft tissue neck w con DATE OF EXAM: 06/12/2017 HISTORY: Patient complains of right mandibular pain inferior to right ear. COMPARISON: NONE CT DLP: 298.7 mGycm. Automated Exposure Control for Dose Reduction was Utilized. TECHNIQUE: CT scan of the neck is performed with IV Contrast, patient injected with 100 mL of Omnipa que 300, axial images are obtained, coronal and sagittal reformatted images are reviewed. FINDINGS: Airway: Airway is patent. Parotid/submandibular glands: Symmetric without inflammatory change. Carotid/Vascular Structures: No hemodynamically significant stenosis. Osseous Structures: Multiple right mandibular and central tooth extractions are seen with periapical lucency and cortical erosion. Lucency indicating dental disease is also seen of the left mandibular teeth and to a lesser degree th e maxillary teeth. Mandibular condyles are located within the mandibular fossa. Zygomatic arches are intact. Mastoid air cells are well aerated. In the region of the patient's pain the parotid glands ar e symmetric and there is no inflammatory change of the right or left parotid gland. Prominent right s ubmandibular lymph node is seen measuring up to 9 mm in short axis. Other: Mild centrilobular and paraseptal emphysematous changes are seen of the lung apices. Postsurgi chio change of the cervical spine and multilevel degenerative disc disease of the cervical spine are n oted. Paranasal sinuses appear well aerated. IMPRESSION: 1. Multifocal mandibular greater than maxillary dental disease with periapical lucencies and cortical erosion. No adjacent abscess is appreciated. Prominent adjacent right submandibular lymph node is up per limits of normal and possibly reactive. 2. Temporomandibular joints are symmetric and intact. In the region of patient's pain the right parot id gland is symmetric to the left without inflammatory change. No CT findings to correspond to the pa tient's pain other than the above-described dental disease.
== END 2017-06-12 20:21 | disposition home or self-care (01) ==
LOC: EC 17:29
DX: G89.18 Other acute postprocedural pain (principal); K08.89 Other specified disorders of teeth and supporting structures; I10 Essential (primary) hypertension; F90.9 Attention-deficit hyperactivity disorder, unspecified type; F41.9 Anxiety disorder, unspecified; F17.200 Nicotine dependence, unspecified, uncomplicated; Z86.14 Personal history of Methicillin resistant Staphylococcus aureus infection; Z88.5 Allergy status to narcotic agent; Z88.6 Allergy status to analgesic agent; Z91.013 Allergy to seafood; Z79.899 Other long term (current) drug therapy
CPT/HCPCS: 99284; 96374; 96375; 36415; 80048; 83605; 85025; 87040; 70491; J2405; Q9967; J1170

== ENCOUNTER 2017-06-13 22:44 | Observation (INO) | payer OTHER ==
[2017-06-13 23:18] LABS: Glucose,Whole Blood 136 mg/dL (75-99)
[2017-06-13] MEDS ORDERED: RX INFO: IV CONTRAST WAS GIVEN 1 EACH MISC MISCELLANE PRN (23:18)
--- NOTE | 2017-06-13 23:22 | ED ---
General Adult HPI - General Chief complaint: Altered Mental Status Stated complaint: Slurred Speech Time Seen by Provider: 06/13/17 23:08 Source: patient, family, RN notes reviewed Mode of arrival: wheelchair Limitations: no limitations - History of Present Illness Initial comments: Patient is a pleasant 47-year-old female presenting to the emergency department with speech problems. Onset of symptoms was around 2:00 or so today when she woke up. Patient later states there may have been mild symptoms before she went to bed last night. Patient does normally go to bed late and sleep soundly. Patient has had headache for the past 4 days. Headache is moderate to severe and posterior more the left side. Patient does have a history of chronic headaches over the past 2 years that are similar. Patient denies any weakness. Patient does not feel confused. Speech has been mostly slurred however states there has been times where he cannot understand her at all and speech seems garbled. does not feel patient seems confused.patient has had recent lower dental extraction. Patient states headache was gradual onset and has progressively worsened. - Related Data Home Medications Medication Instructions Recorded Confirmed Dextroamphetamine/Amphetamine 30 mg PO QAM 07/16/16 06/13/17 [Adderall] Atenolol [Tenormin] 50 mg PO DAILY 02/24/17 06/13/17 clonazePAM [KlonoPIN] 0.5 mg PO BID 02/24/17 06/13/17 Vitamin B Complex 1 cap PO DAILY 06/07/17 06/13/17 Cholecalciferol [Vitamin D3] 1,000 unit PO DAILY 06/10/17 06/13/17 Clindamycin HCl 300 mg PO Q12HR 06/12/17 06/13/17 Gabapentin [Neurontin] 400 mg PO TID 06/12/17 06/13/17 Methylphenidate HCl [Ritalin] 10 mg PO BID 06/12/17 06/13/17 oxyCODONE-APAP 7.5-325MG [Percocet 1 tab PO TID PRN 06/12/17 06/13/17 7.5-325 mg] Allergies Allergy/AdvReac Type Severity Reaction Status Date / Time ibuprofen Allergy Rash/Hives Verified 06/13/17 23:23 morphine Allergy Swelling Verified 06/13/17 23:23 shellfish derived Allergy Anaphylaxis Verified 11/19/17 23:23 tramadol [From Ultram] Allergy Rash/Hives Verified 06/13/17 23:23 Review of Systems ROS Statement: Those systems with pertinent positive or pertinent negative responses have been documented in the HPI. ROS Other: All systems not noted in ROS Statement are negative. Constitutional: Denies: fever Eyes: Denies: eye pain ENT: Denies: ear pain Respiratory: Denies: cough Cardiovascular: Denies: chest pain Endocrine: Denies: fatigue Gastrointestinal: Denies: abdominal pain Genitourinary: Denies: dysuria Musculoskeletal: Denies: back pain Skin: Denies: rash Neurological: Reports: headache. Denies: weakness, numbness, paresthesias, confusion Past Medical History Past Medical History: Asthma, GERD/Reflux, Hypertension, Pneumonia Additional Past Medical History / Comment(s): COPD, chronic back pain, lumbar degenerative disc disease, insomnia, shingles, hiatal hernia, kidney stones History of Any Multi-Drug Resistant Organisms: MRSA Date of last positivie culture/infection: 09/22/2009 MDRO Source:: neck Past Surgical History: Appendectomy, Back Surgery, Section, Cholecystectomy, Hernia Repair Additional Past Surgical History / Comment(s): Cervical spine fusion with insertion of a metal plate, EGD, colonoscopy, hiatal hernia, lumbar rhizotomy and radiofrequency ablation., Appendectomy, , cholecystectomy, hernia repair Past Anesthesia/Blood Transfusion Reactions: No Reported Reaction Additional Past Anesthesia/Blood Transfusion Reaction / Comment(s): CLAUSTROPHOBIA Past Psychological History: ADD/ADHD, Anxiety Smoking Status: Current every day smoker Past Alcohol Use History: None Reported Past Drug Use History: None Reported - Past Family History Father Family Medical History: Cancer Additional Family Medical History / Comment(s): Father at age 48 from lung cancer. Mother Family Medical History: Congestive Heart Failure (CHF), CVA/TIA Additional Family Medical History / Comment(s): Mother is alive at age 68. She has suffered from a CVA and has chronic back problems. Patient has 2 brothers and 4 sisters with no major medical problems. General Exam Limitations: no limitations General appearance: alert, in no apparent distress Head exam: Present: atraumatic Eye exam: Present: normal appearance, PERRL, EOMI. Absent: nystagmus ENT exam: Present: normal oropharynx Neck exam: Present: normal inspection, full ROM. Absent: tenderness, meningismus Respiratory exam: Present: normal lung sounds bilaterally Cardiovascular Exam: Present: regular rate, normal rhythm GI/Abdominal exam: Present: soft. Absent: tenderness Extremities exam: Present: normal inspection Neurological exam: Present: alert, altered, CN II-XII intact. Absent: motor sensory deficit Expanded Patient oriented to: Present: person, place. Absent: time Speech: Present: expressive aphasia Cranial nerves: EOM's Intact: Normal, Facial Sensation: Normal Cerebellar function: Finger to Nose: Normal Sensory exam: Upper Extremity Light Touch: Normal, Lower Extremity Light Touch: Normal Motor strength exam: RUE: 5, LUE: 5, RLE: 5, LLE: 5 Eye Response: (4) open spontaneously Motor Response: (6) obeys commands Verbal Response: (4) confused conversation Psychiatric exam: Present: normal affect, normal mood Skin exam: Present: normal color Course Vital Signs 06/13/17 06/13/17 06/13/17 22:48 23:00 23:15 Temperature 98.1 F 98.4 F Pulse Rate 79 80 82 Respiratory 18 18 18 Rate Blood Pressure 114/76 122/78 123/86 O2 Sat by Pulse 96 95 99 Oximetry 06/13/17 06/13/17 06/13/17 23:27 23:30 23:45 Temperature 97.9 F Pulse Rate 80 74 68 Respiratory 18 18 18 Rate Blood Pressure 101/59 101/59 135/87 O2 Sat by Pulse 94 L 93 L 93 L Oximetry 06/14/17 00:25 Temperature Pulse Rate 69 Respiratory 18 Rate Blood Pressure 130/88 O2 Sat by Pulse 93 L Oximetry EKG Findings - EKG Comments: EKG Findings:: normal sinus rhythm 86. AK 168. QRS 82. QT 384. QTC 459. Normal axis. Normal QRS. No acute ST change. Medical Decision Making - Medical Decision Making patient reexamined and unchanged. Patient and were updated. Patient does not have clinical symptoms consistent with pneumonia. Case was discussed in detail with , who will admit for hospital call. - Lab Data Result diagrams: 06/13/17 23:09 06/13/17 23:09 Lab Results 06/13/17 06/13/17 06/13/17 Range/Units 23:03 23:09 23:09 WBC 8.0 (3.8-10.6) k/uL RBC 4.06 (3.80-5.40) m/uL Hgb 12.7 (11.4-16.0) gm/dL Hct 40.4 (34.0-46.0) % MCV 99.4 (80.0-100.0) fL MCH 31.3 (25.0-35.0) pg MCHC 31.5 (31.0-37.0) g/dL RDW 14.5 (11.5-15.5) % Plt Count 366 (150-450) k/uL Neutrophils % 63 % Lymphocytes % 23 % Monocytes % 8 % Eosinophils % 5 % Basophils % 1 % Neutrophils # 5.0 (1.3-7.7) k/uL Lymphocytes # 1.9 (1.0-4.8) k/uL Monocytes # 0.7 (0-1.0) k/uL Eosinophils # 0.4 (0-0.7) k/uL Basophils # 0.1 (0-0.2) k/uL PT (9.0-12.0) sec INR (<1.2) APTT (22.0-30.0) sec Sodium (137-145) mmol/L Potassium (3.5-5.1) mmol/L Chloride (98-107) mmol/L Carbon Dioxide (22-30) mmol/L Anion Gap mmol/L BUN (7-17) mg/dL Creatinine (0.52-1.04) mg/dL Est GFR (MDRD) Af Amer (>60 ml/min/1.73 sqM) Est GFR (MDRD) Non-Af (>60 ml/min/1.73 sqM) Glucose (74-99) mg/dL POC Glucose (mg/dL) 136 H (75-99) mg/dL POC Glu [employer] ID Blanquita Thornton Calcium (8.4-10.2) mg/dL Total Bilirubin (0.2-1.3) mg/dL AST (14-36) U/L ALT (9-52) U/L Alkaline Phosphatase (38-126) U/L Total Creatine Kinase 42 (30-135) U/L CK-MB (CK-2) 0.6 (0.0-2.4) ng/mL CK-MB (CK-2) Rel Index 1.4 Troponin I <0.012 (0.000-0.034) ng/mL Total Protein (6.3-8.2) g/dL Albumin (3.5-5.0) g/dL 06/13/17 06/13/17 Range/Units 23:09 23:09 WBC (3.8-10.6) k/uL RBC (3.80-5.40) m/uL Hgb (11.4-16.0) gm/dL Hct (34.0-46.0) % MCV (80.0-100.0) fL MCH (25.0-35.0) pg MCHC (31.0-37.0) g/dL RDW (11.5-15.5) % Plt Count (150-450) k/uL Neutrophils % % Lymphocytes % % Monocytes % % Eosinophils % % Basophils % % Neutrophils # (1.3-7.7) k/uL Lymphocytes # (1.0-4.8) k/uL Monocytes # (0-1.0) k/uL Eosinophils # (0-0.7) k/uL Basophils # (0-0.2) k/uL PT 9.4 (9.0-12.0) sec INR 0.9 (<1.2) APTT 24.0 (22.0-30.0) sec Sodium 142 (137-145) mmol/L Potassium 3.9 (3.5-5.1) mmol/L Chloride 105 (98-107) mmol/L Carbon Dioxide 28 (22-30) mmol/L Anion Gap 9 mmol/L BUN 8 (7-17) mg/dL Creatinine 0.70 (0.52-1.04) mg/dL Est GFR (MDRD) Af Amer >60 (>60 ml/min/1.73 sqM) Est GFR (MDRD) Non-Af >60 (>60 ml/min/1.73 sqM) Glucose 135 H (74-99) mg/dL POC Glucose (mg/dL) (75-99) mg/dL POC Glu [employer] Helper ID Calcium 9.1 (8.4-10.2) mg/dL Total Bilirubin 0.4 (0.2-1.3) mg/dL AST 136 H (14-36) U/L ALT 281 H (9-52) U/L Alkaline Phosphatase 161 H (38-126) U/L Total Creatine Kinase (30-135) U/L CK-MB (CK-2) (0.0-2.4) ng/mL CK-MB (CK-2) Rel Index Troponin I (0.000-0.034) ng/mL Total Protein 6.3 (6.3-8.2) g/dL Albumin 3.4 L (3.5-5.0) g/dL - Radiology Data Radiology results: report reviewed (Computed tomography scan of the brain shows no acute process. CT angiogram of the head and neck shows no acute process.), image reviewed (chest x-ray shows questionable left lower infiltrate.) Disposition Clinical Impression: CVA (cerebral vascular accident) Disposition: ADMITTED IP TO THIS [facility] Referrals: Estelle Butterfield DO [Primary Care Provider] - 1-2 days Decision Time: 01:00
[2017-06-13 23:27] LABS: Basophils # (A) 0.1 k/uL (0-0.2); Basophils % (A) 1 %; CH 31.7; CHCM 32.1; Eosinophils # (A) 0.4 k/uL (0-0.7); Eosinophils % (A) 5 %; HCT 40.4 % (34.0-46.0); HDW 2.21; HGB 12.7 gm/dL (11.4-16.0); Luc # (Auto) 0.06; Luc % (Auto) 1; Lymphocytes # (A) 1.9 k/uL (1.0-4.8); Lymphocytes % (A) 23 %; MCH 31.3 pg (25.0-35.0); MCHC 31.5 g/dL (31.0-37.0); MCV 99.4 fL (80.0-100.0); Mean Platelet Volume 7.3; Monocytes # (A) 0.7 k/uL (0-1.0); Monocytes % (A) 8 %; Neutrophils % (A) 63 %; RBC 4.06 m/uL (3.80-5.40); RDW 14.5 % (11.5-15.5); WBC (Perox) 8.51
[2017-06-13 23:35] LABS: Anion Gap 9 mmol/L; Calcium 9.1 mg/dL (8.4-10.2); Carbon Dioxide 28 mmol/L (22-30); Chloride 105 mmol/L (98-107); Glucose 135 mg/dL (74-99); Non-African American GFR(MDRD) >60 (>60 ml/min/1.73 sqM); Sodium 142 mmol/L (137-145); Total Bilirubin 0.4 mg/dL (0.2-1.3); Total Protein 6.3 g/dL (6.3-8.2)
[2017-06-13 23:36] LABS: Creatine Kinase 42 U/L (30-135)
[2017-06-13 23:37] LABS: INR 0.9 (<1.2); Prothrombin Time 9.4 sec (9.0-12.0)
[2017-06-13 23:42] LABS: ALT 281 U/L (9-52); AST 136 U/L (14-36); Alkaline Phosphatase 161 U/L (38-126); Blood Urea Nitrogen 8 mg/dL (7-17); Potassium 3.9 mmol/L (3.5-5.1)
[2017-06-13 23:49] LABS: Creatine Kinase MB 0.6 ng/mL (0.0-2.4); Troponin I <0.012 ng/mL (0.000-0.034)
--- NOTE | 2017-06-14 00:25 | CT ---
EXAMINATION TYPE: CT brain wo con DATE OF EXAM: 06/14/2017 COMPARISON: 03/03/2017 HISTORY: slurred speech CT DLP: head-910.20 body-381.60 mGycm. Automated Exposure Control for Dose Reduction was Utilized. TECHNIQUE: CT scan of the head is performed without contrast. FINDINGS: Ventricles have normal size. There is no mass effect nor midline shift. There is no sign of intracranial hemorrhage. The calvarium is intact. CONCLUSION: Negative CT scan of the brain. No change.
--- NOTE | 2017-06-14 00:29 | CT ---
EXAMINATION TYPE: CT angio head neck DATE OF EXAM: 06/14/2017 HISTORY: slurred speech COMPARISON: NONE CT DLP: head-910.20 body-381.60 mGycm. Automated Exposure Control for Dose Reduction was Utilized. TECHNIQUE: CTA scan of the neck is performed with IV Contrast, patient injected with 65 mL of Omnipa que 350, axial images are obtained, coronal and sagittal reformatted images are reviewed. Three-D rec onstructed images are created on an independent workstation and reviewed. FINDINGS: There is normal branching pattern of the great vessels on the aortic arch. There is arterial flow in the vertebral arteries which are symmetric. There is arterial flow in the common internal and external carotid arteries bilaterally. There is no evidence of carotid dissection. I see no evidence of carotid stenosis. There is arterial flow in the vertebrobasilar artery system. There is arterial flow in the anterior m iddle and posterior cerebral arteries. There is no mass effect. There is no sign of stenosis. There i s no sign of neovascularity. There is normal contrast opacification of the venous sinuses. CONCLUSION: Normal CT angiogram of the neck. Normal CT angiogram of the brain.
--- NOTE | 2017-06-14 00:33 | XR ---
EXAMINATION TYPE: XR chest 2V DATE OF EXAM: 06/14/2017 COMPARISON: 03/25/2017 HISTORY: Slurred speech TECHNIQUE: Frontal and lateral views of the chest are obtained. FINDINGS: Heart and mediastinum are normal. There is no gross heart failure. There is some coarsenin g of the lung markings. There is increased density posteriorly on the lateral view that could be infi ltrate in the left lower lobe. There is no pleural effusion. IMPRESSION: Possible new left lower lobe infiltrate compared to last exam. Normal heart.
[2017-06-14] MEDS ORDERED: ASPIRIN 325 MG TAB PO STA (01:00)
[2017-06-14] MEDS ORDERED: SODIUM CHLORIDE 0.9% 1,000 ML IV SCH (01:00)
[2017-06-14] MEDS ORDERED: LORazepam 2 MG/ML INJ IV STA (01:18)
[2017-06-14] MEDS: oxyCODONE-APAP 7.5-325MG 1 EACH TAB PO PRN ×2 (02:38→08:05)
--- NOTE | 2017-06-14 02:46 | P.HPIM ---
History of Present Illness H&P Date: 06/14/17 Chief Complaint: Slurred speech 47-year-old female presenting to the emergency department with speech problems. She started having problems since her teeth extraction on . At that time she had 6 of her right lower jaw teeth removed. Yesterday she presented to the emergency department because of significant bleeding from the area, once the bleeding was controlled she was discharged home. Yesterday her noticed that her speech has been slurred and garbled and he could not understand what she was saying. She never had that problem before. She was able to think about the words that she was trying to say but according to her words were garbled. Patient also stated that the right side of her face felt numb. also noticed that she was having some confusion and disorientation as well. Patient has been having worsening of her chronic headache for the past 4 days. Headache is moderate to severe and posterior and bilaterally located. Patient denies any focal weakness or any focal body numbness. Patient denied having any recent illness, no flulike symptoms, no nausea or vomiting, no palpitations, no chest pain or shortness of breath, no urinary symptoms, no abdominal pain or diarrhea. Review of Systems 12 point review of system was performed, negative except for HPI Past Medical History Past Medical History: Asthma, GERD/Reflux, Hypertension, Pneumonia Additional Past Medical History / Comment(s): COPD, chronic back pain, lumbar degenerative disc disease, insomnia, shingles, hiatal hernia, kidney stones History of Any Multi-Drug Resistant Organisms: MRSA Date of last positivie culture/infection: 09/22/2009 MDRO Source:: neck Past Surgical History: Appendectomy, Back Surgery, Section, Cholecystectomy, Hernia Repair Additional Past Surgical History / Comment(s): Cervical spine fusion with insertion of a metal plate, EGD, colonoscopy, hiatal hernia, lumbar rhizotomy and radiofrequency ablation., Appendectomy, , cholecystectomy, hernia repair Past Anesthesia/Blood Transfusion Reactions: No Reported Reaction Additional Past Anesthesia/Blood Transfusion Reaction / Comment(s): CLAUSTROPHOBIA Past Psychological History: ADD/ADHD, Anxiety Smoking Status: Current every day smoker Past Alcohol Use History: None Reported Past Drug Use History: None Reported - Past Family History Father Family Medical History: Cancer Additional Family Medical History / Comment(s): Father at age 48 from lung cancer. Mother Family Medical History: Congestive Heart Failure (CHF), CVA/TIA Additional Family Medical History / Comment(s): Mother is alive at age 68. She has suffered from a CVA and has chronic back problems. Patient has 2 brothers and 4 sisters with no major medical problems. Medications and Allergies Home Medications Medication Instructions Recorded Confirmed Type Atenolol [Tenormin] 50 mg PO DAILY 02/24/17 06/13/17 History clonazePAM [KlonoPIN] 0.5 mg PO BID 02/24/17 06/13/17 History Vitamin B Complex 1 cap PO DAILY 06/07/17 06/13/17 History Cholecalciferol [Vitamin D3] 1,000 unit PO DAILY 06/10/17 06/13/17 History Gabapentin [Neurontin] 400 mg PO TID 06/12/17 06/13/17 History oxyCODONE-APAP 7.5-325MG [Percocet 1 tab PO TID PRN 06/12/17 06/13/17 History 7.5-325 mg] Allergies Allergy/AdvReac Type Severity Reaction Status Date / Time ibuprofen Allergy Rash/Hives Verified 06/13/17 23:23 morphine Allergy Swelling Verified 06/13/17 23:23 shellfish derived Allergy Anaphylaxis Verified 06/13/17 23:23 tramadol [From Ultram] Allergy Rash/Hives Verified 06/13/17 23:23 Physical Exam Vitals: Vital Signs Temp Pulse Resp BP Pulse Ox 06/14/17 01:35 87 18 94 L 06/14/17 00:55 72 18 133/84 94 L 06/14/17 00:25 69 18 130/88 93 L 06/13/17 23:45 68 18 135/87 93 L 06/13/17 23:30 74 18 101/59 93 L 06/13/17 23:27 97.9 F 80 18 101/59 94 L 06/13/17 23:15 82 18 123/86 99 06/13/17 23:00 98.4 F 80 18 122/78 95 06/13/17 22:48 98.1 F 79 18 114/76 96 Intake and Output 06/13/17 06/13/17 06/14/17 14:59 22:59 06:59 Other: Weight 73.482 kg Patient Weight 06/14/17 06:59 Weight 73.482 kg Constitutional: No acute distress, conversant, pleasant Eyes:Anicteric sclerae, moist conjunctiva, no lid-lag, PERRLA, ENMT: Oropharynx clear, no erythema, exudates Neck: Supple, FROM, no masses, or JVD, No carotid bruits, No thyromegaly Lungs: Clear to auscultation, Clear to percussion, Normal respiratory effort, no accessory muscle use Cardiovascular: Heart regular in rate and rhythm, No murmurs, gallops, or rubs, No peripheral edema Abdominal: Soft, Nontender, no guarding, rebound or rigidity, Normoactive bowel sounds, No hepatomegaly, No splenomegaly, No palpable mass Skin: Normal temperature, tone, texture, turgor, no induration, No subcutaneous nodules, No rash, lesions, No ulcers Extremities: No digital cyanosis, No clubbing, Pedal pulses intact and symmetrical, Radial pulses intact and symmetrical, No calf tenderness Psychiatric: Alert and oriented to person, place and time, appropriate affect, intact judgement Neuro: Muscles Strength 5/5 in all 4 extremities, Sensation to light touch grossly present throughout, right face feels numb compared to the left face, risks cranial nerves within normal limits., no focal sensory deficits Results CBC & Chem 7: 06/13/17 23:09 06/13/17 23:09 Labs: Abnormal Lab Results - Last 24 Hours (Table) 06/13/17 06/13/17 Range/Units 23:03 23:09 Glucose 135 H (74-99) mg/dL POC Glucose (mg/dL) 136 H (75-99) mg/dL AST 136 H (14-36) U/L ALT 281 H (9-52) U/L Alkaline Phosphatase 161 H (38-126) U/L Albumin 3.4 L (3.5-5.0) g/dL Assessment and Plan Plan: #1 acute transient ischemic attack: Labs and imaging reviewed Unclear if her symptoms are due to teeth extraction versus transient ischemic attack head CT negative for acute stroke Admit to [facility] on telemetry Consults neurology MRI of the brain to rule out stroke CT angiogram of the head and neck done, within normal limits. 2-D echocardiogram PT and OT Neuro checks Check HbA1c and lipid profile Start aspirin 325 mg daily. Start pravastatin 20 mg daily #2 Anxiety, Asthma, GERD/Reflux, Hypertension, chronic neck and back pain: All stable Continue all medications #3 DVT prophylaxis: SCDs
[2017-06-14 02:58] VITALS: BMI 31.2
[2017-06-14] MEDS ORDERED: HYDROmorphone 2 MG/ML 1 ML SYRINGE IVP STA (03:59)
[2017-06-14 04:19] LABS: Appearance,Urine Clear (Clear); Bilirubin,Urine Negative (Negative); Glucose,Urine (UA) Negative (Negative); Ketones,Urine Negative (Negative); Leukocyte Esterase,Urine Negative (Negative); Nitrite,Urine Negative (Negative); PH, Urine 8.5 (5.0-8.0); Particle Count 702; Protein,Urine 1+ (Negative); RBC,Urine 15 /hpf (0-5); Squamous Epithelial Cell,Urine 2 /hpf (0-4); UA Billing (MACRO vs. MICRO) MICRO; Urobilinogen,Urine <2.0 mg/dL (<2.0); WBC,Urine 1 /hpf (0-5)
[2017-06-14 04:32] LABS: Basophils # (A) 0.1 k/uL (0-0.2); Basophils % (A) 1 %; CHCM 31.6; Eosinophils # (A) 0.3 k/uL (0-0.7); Eosinophils % (A) 3 %; HCT 40.8 % (34.0-46.0); HDW 2.38; HGB 12.9 gm/dL (11.4-16.0); Luc # (Auto) 0.32; Luc % (Auto) 3; Lymphocytes % (A) 22 %; MCH 31.2 pg (25.0-35.0); MCHC 31.7 g/dL (31.0-37.0); MCV 98.4 fL (80.0-100.0); Mean Platelet Volume 6.8; Monocytes # (A) 0.8 k/uL (0-1.0); Monocytes % (A) 9 %; Neutrophils # (A) 5.8 k/uL (1.3-7.7); Neutrophils % (A) 63 %; RBC 4.15 m/uL (3.80-5.40); RDW 13.2 % (11.5-15.5); WBC 9.3 k/uL (3.8-10.6); WBC (Perox) 8.97
[2017-06-14 05:02] LABS: Anion Gap 7 mmol/L; Blood Urea Nitrogen 9 mg/dL (7-17); Carbon Dioxide 29 mmol/L (22-30); Chloride 105 mmol/L (98-107); Glucose 117 mg/dL (74-99); Magnesium 1.7 mg/dL (1.6-2.3); Non-African American GFR(MDRD) >60 (>60 ml/min/1.73 sqM); Phosphorus 4.2 mg/dL (2.5-4.5); Potassium 3.8 mmol/L (3.5-5.1); Sodium 141 mmol/L (137-145)
[2017-06-14 05:43] LABS: Specific Gravity,Urine >1.050 (1.001-1.035)
[2017-06-14 05:51] VITALS: PULSE 63
[2017-06-14 08:18] VITALS: TEMP 97.9
[2017-06-14 08:19] VITALS: BP 148/97; RESP 20
[2017-06-14] MEDS ORDERED: ASPIRIN 325 MG TAB PO SCH (09:00)
[2017-06-14] MEDS ORDERED: B COMPLEX-VIT C-VIT E-ZINC 1 EACH TAB PO SCH (09:00)
[2017-06-14] MEDS ORDERED: clonazePAM 0.5 MG TAB PO SCH (09:00)
[2017-06-14] MEDS ORDERED: CHOLECALCIFEROL 1,000 UNIT TAB PO SCH (09:00)
[2017-06-14] MEDS ORDERED: ATENOLOL 50 MG TAB PO SCH (09:00)
[2017-06-14] MEDS ORDERED: GABAPENTIN 400 MG CAP PO SCH (09:00)
--- NOTE | 2017-06-14 10:57 | P.DS ---
Providers Date of admission: 06/14/17 01:00 Attending physician: Carlos Sarmiento MD Consults: 06/14/17 10:07 Consult Physician Routine Consulting Provider: Jose Thomas Consult Reason/Comments: CVA Do you want consulting provider notified?: Yes Consult Physician Urgent Consulting Provider: Jose Thomas Consult Reason/Comments: rule out cva Do you want consulting provider notified?: Already Contacted Primary care physician: Estelle Butterfield - Discharge Diagnosis(es) (1) Left against medical advice Current Visit: Yes Status: Acute (2) Slurred speech Current Visit: Yes Status: Acute (3) Anxiety Current Visit: No Status: Acute (4) COPD (chronic obstructive pulmonary disease) Current Visit: No Status: Acute (5) Cellulitis of buccal space of mouth Current Visit: No Status: Acute (6) GERD (gastroesophageal reflux disease) Current Visit: No Status: Acute Hospital Course: The patient is a 46-year-old female that presented with symptoms of slurred speech and was placed on observation for possible TIA the patient's symptoms had resolved after approximately 5 hours and she was scheduled to have a echocardiogram and MRI of the head with neurology consultation but she decided to leave AMA prior to having a complete workup. Of note the patient had a negative CT angiography of her head and neck. Per nursing staff the patient did sign the AMA form prior to leaving. This process took less than 30 minutes Plan - Discharge Summary Discharge Rx Participant: Yes New Discharge Prescriptions: No Action clonazePAM [KlonoPIN] 0.5 mg PO BID Atenolol [Tenormin] 50 mg PO DAILY Vitamin B Complex 1 cap PO DAILY Cholecalciferol [Vitamin D3] 1,000 unit PO DAILY Gabapentin [Neurontin] 400 mg PO TID oxyCODONE-APAP 7.5-325MG [Percocet 7.5-325 mg] 1 tab PO TID PRN PRN Reason: Pain Discharge Medication List Atenolol [Tenormin] 50 mg PO DAILY 02/24/17 [History] clonazePAM [KlonoPIN] 0.5 mg PO BID 02/24/17 [History] Vitamin B Complex 1 cap PO DAILY 06/07/17 [History] Cholecalciferol [Vitamin D3] 1,000 unit PO DAILY 06/10/17 [History] Gabapentin [Neurontin] 400 mg PO TID 06/12/17 [History] oxyCODONE-APAP 7.5-325MG [Percocet 7.5-325 mg] 1 tab PO TID PRN 06/12/17 [ History] Follow up Appointment(s)/Referral(s): Estelle Butterfield DO [Primary Care Provider] - 1-2 days
[2017-06-14] MEDS ORDERED: ATORVASTATIN 20 MG TAB PO SCH (21:00)
== END 2017-06-14 10:55 | disposition left against medical advice (07) ==
LOC: EC 22:44 → 6ICU 06-14 01:00 → INTOOBSV 06-14 01:00 → 6SEL 06-14 09:47
PROVIDERS: ADMIT Internal Medicine; ATTEND Internal Medicine
DX: R41.82 Altered mental status, unspecified (principal); K21.9 Gastro-esophageal reflux disease without esophagitis; J44.9 Chronic obstructive pulmonary disease, unspecified; R47.81 Slurred speech; K12.2 Cellulitis and abscess of mouth; R51 Headache; G89.29 Other chronic pain; I10 Essential (primary) hypertension; M51.36 Other intervertebral disc degeneration, lumbar region; G47.00 Insomnia, unspecified; F90.9 Attention-deficit hyperactivity disorder, unspecified type; F40.240 Claustrophobia; F17.200 Nicotine dependence, unspecified, uncomplicated; Z79.899 Other long term (current) drug therapy; Z88.6 Allergy status to analgesic agent; Z88.5 Allergy status to narcotic agent; Z91.013 Allergy to seafood; Z98.1 Arthrodesis status; Z86.14 Personal history of Methicillin resistant Staphylococcus aureus infection; Z82.49 Family history of ischemic heart disease and other diseases of the circulatory system; Z82.3 Family history of stroke
CPT/HCPCS: 96375; 96374; 99285; 36415; 93005; 80053; 80048; 82550; 82553; 83735; 84100; 84484; 85025 ×2; 85610; 85730; 81001; 80306; 80320; 83036; 71020; 70496; 70450; 70498; G0378; J2060; J1170; Q9967

== ENCOUNTER → 2017-06-15 | Outpatient (CLI) | payer OTHER ==
[2017-06-15 12:44] VITALS: BP 155/89; PULSE 90; RESP 22
--- NOTE | 2017-06-15 13:17 | P.PN ---
Progress Note - Text Progress Note Date: 06/15/17 Patient returns for followup for chronic back pain with radiation to RLE with weakness and numbness and sensation of RLE giving out, and has recently been hospitalized multiple times with jaw pain with abscess; patient planning to have more dental work next week. Dr. Alicea previously recommended increasing gabapentin for neck pain and possible repeat neck surgery, but EMG still not done due to insurance problems. Patient denies adverse drug effects from medications. Today, pt denies new-onset weakness, bowel/bladder incontinence, or any other signs or symptoms of cauda equina syndrome. There are no signs of acute intoxication, and no indications of medication diversion or overuse. In addition to above, 13-point review of systems is also negative for chest pain , shortness of breath, changes in vision, changes in hearing, new onset weakness , abdominal pain, diarrhea, extreme fatigue, malaise, fever, skin changes, homicidal or suicidal ideation, or bowel or bladder incontinence. Vital Signs: Reviewed in EMR Gen: WDWN, AAOx3, NAD HEENT: NCAT, EOMI, hearing grossly normal Pulm: resp unlabored Abd: soft, NT, ND Neck: supple, trachea midline ROM in flexion lumbar spine: reduced ROM in extension lumbar spine: reduced Lumbar paravertebral tenderness: ++ Facet loading: ++ bilateral R > L SI joint tenderness: + R > L Bony's test: + R side Straight leg raise: neg Lower extremity: decreased RLE strength secondary to pain; decreased sensation to pinprick RLE compared to LLE Neuro: CN II-XII grossly intact, muscle strength lower extremities PRESERVED Imaging: Reviewed in EMR Assessment: 1. lumbar radiculitis 2. lumbar spondylosis 3. chronic pain syndrome 4. cervical PLPS Plan: 1. Explanation: Opioid and psychological risk scores were reviewed. Diagnoses , prognoses, and multiple treatment options including but not limited to physical therapy, interventional therapies, adjuvant medical therapies, narcotic medication therapies, and surgery were discussed with the patient and all questions were answered to the patient's satisfaction. 2. Opioid agreement: Patient has previously signed narcotic agreement, and was orally counseled to not overuse, abuse, divert, or cell medications, and to take them as prescribed by only 1 healthcare provider. The patient was also counseled to store opioid medications in a safe and preferably locked location. Patient was also counseled against driving or operating heavy equipment while using narcotic medications and also to not use alcohol or any illicit or recreational drugs. The patient verbalized understanding that lack of compliance with any of the above and likely result in failure to renew narcotic prescriptions, possible discharge from the clinic, and possible legal ramifications thereafter if indicated. 3. Counseling: The patient was counseled extensively on SMOKING CESSATION, BODY MASS INDEX, EXERCISE. Specifically, the patient was instructed regarding the importance of smoking cessation, obesity, and exercise in the context of both chronic pain and overall health. 4. Procedures: none for now 5. Consultations: None 6. Investigations: UDS negative for medications 7. Medications: Percocet 7.5/325 #90 with no refill, refilled gabapentin to 400 TID #90 with two refills 8. Disposition: f/u for re-eval 4 weeks for repeat UDS PQRS measures: 1-Patient's medications are documented in the chart. 2-Tobacco use is positive, counseling given 3-Patient has not had a pneumococcal vaccine. 4-Advanced care planning discussed, patient unable to give. 5-Opioid contract signed with the patient. 6-Pain positive, follow-up visit or procedure scheduled 7-Patient's blood pressure measured and documented, and patient will follow up with the primary care due to hypertension. 8-Patient's weight was measured, and body mass index ABOVE the normal limits, and counseling was done. Patient instructed to follow up with PCP. 9-Patient WAS NOT identified as an unhealthy alcohol user.
== END | disposition home or self-care (01) ==
LOC: PNWHC3 12:28
PROVIDERS: ATTEND Anesthesiology
DX: M47.26 Other spondylosis with radiculopathy, lumbar region (principal); M96.1 Postlaminectomy syndrome, not elsewhere classified; G89.4 Chronic pain syndrome
CPT/HCPCS: 99211

== ENCOUNTER → 2017-07-13 | Outpatient (CLI) | payer OTHER ==
[2017-07-13 14:13] VITALS: BP 143/89; PULSE 120; RESP 24
--- NOTE | 2017-07-13 14:39 | P.PN ---
Progress Note - Text Progress Note Date: 07/13/17 This is a 47-year-old female with lower back pain and radiation to the lower extremities with lumbar spondylosis without myelopathy.. The patient is being worked up to rule out multiple sclerosis and she is going to have lumbar puncture shortly. Her pain has been well-controlled with a combination of interventional pain procedures and oral analgesics including Percocet at 7.5 mg 3 times a day and Neurontin. He denies any side effects to these medications and she does not show any signs of oversedation she also does not show any drug- seeking behavior at this point. Neuro exam of the lower extremities showed decreased muscle strength for knee flexion and extension to 4 out of 5, and for hip flexion on the right side to 3 out of 5 on 4 out of 5 on the left side. She has normal and symmetrical knee reflexes however she has no ankle reflexes bilaterally. Straight leg raising test negative bilaterally. She has Widespread tenderness in the lumbar paraspinal musculature. Today I'll give the patient prescription for 2 months of her oral analgesics. She understands the risk of combining opioids with benzodiazepines(we do not prescribe benzodiazepines for her). We will see the patient back 2 months from now for reevaluation.
== END | disposition home or self-care (01) ==
LOC: PNWHC3 13:51
PROVIDERS: ATTEND Anesthesiology
DX: M47.816 Spondylosis without myelopathy or radiculopathy, lumbar region (principal); Z79.891 Long term (current) use of opiate analgesic; Z79.899 Other long term (current) drug therapy
CPT/HCPCS: 99211

== ENCOUNTER 2017-07-30 11:32 | Observation (INO) | payer OTHER ==
[2017-07-30] MEDS ORDERED: HYDROmorphone 1 MG/ML 1 ML SYRINGE IVP STA ×2 (12:18→14:00)
[2017-07-30] MEDS ORDERED: ONDANSETRON 4 MG/2 ML VIAL IVP STA (12:18)
--- NOTE | 2017-07-30 12:24 | ED ---
Syncope HPI - General Chief Complaint: Syncope Stated Complaint: Dizzy Time Seen by Provider: 07/30/17 12:00 Source: patient, RN notes reviewed Mode of arrival: wheelchair Limitations: no limitations - History of Present Illness Initial Comments: This is a 38-year-old female who was sent in from her neurologist's office for evaluation for syncope. She states she passed out twice yesterday with loss of consciousness lasting less than a minute today she also had another episode lasting about a minute she states this would occur when she turns her head to the left. She was at her neurologist's office for an EEG and EMG today but was sent here because of the above symptoms. She complains of left-sided neck pain and left shoulder pain. She also complains of no headache at this time but left neck pain left shoulder pain especially over the trapezius muscle. No loss of function to her upper or lower extremities. She denies any palpitations with the episodes. No chest pain. MD Complaint: loss of consciousness - Related Data Home Medications Medication Instructions Recorded Confirmed Atenolol [Tenormin] 50 mg PO DAILY 02/24/17 07/30/17 clonazePAM [KlonoPIN] 0.5 mg PO BID 02/24/17 07/30/17 Vitamin B Complex 1 cap PO DAILY 06/07/17 07/30/17 Cholecalciferol [Vitamin D3] 1,000 unit PO DAILY 06/10/17 07/30/17 Dextroamphetamine/Amphetamine 30 mg PO DAILY 07/30/17 07/30/17 [Adderall] Doxepin HCl 50 mg PO HS 07/30/17 07/30/17 Ibuprofen [Motrin] 800 mg PO TID PRN 07/30/17 07/30/17 Omeprazole 20 mg PO BID 07/30/17 07/30/17 Previous Rx's Medication Instructions Recorded Gabapentin [Neurontin] 400 mg PO TID #90 cap 06/15/17 oxyCODONE-APAP 7.5-325MG [Percocet 1 tab PO TID PRN #90 tab 06/15/17 7.5-325 mg] Allergies Allergy/AdvReac Type Severity Reaction Status Date / Time ibuprofen Allergy Rash/Hives Verified 07/30/17 12:37 ketorolac [From Toradol] Allergy Unknown Verified 07/30/17 12:37 morphine Allergy Swelling Verified 07/30/17 12:37 shellfish derived Allergy Anaphylaxis Verified 07/30/17 12:37 tramadol [From Ultram] Allergy Rash/Hives Verified 07/30/17 12:37 Review of Systems ROS Statement: Those systems with pertinent positive or pertinent negative responses have been documented in the HPI. ROS Other: All systems not noted in ROS Statement are negative. Past Medical History Past Medical History: Asthma, GERD/Reflux, Hypertension, Pneumonia Additional Past Medical History / Comment(s): COPD, chronic back pain, lumbar degenerative disc disease, insomnia, shingles, hiatal hernia, kidney stones History of Any Multi-Drug Resistant Organisms: MRSA Date of last positivie culture/infection: 09/22/2009 MDRO Source:: neck Past Surgical History: Appendectomy, Back Surgery, Section, Cholecystectomy, Hernia Repair Additional Past Surgical History / Comment(s): Cervical spine fusion with insertion of a metal plate, EGD, colonoscopy, hiatal hernia, lumbar rhizotomy and radiofrequency ablation., Appendectomy, , cholecystectomy, hernia repair,6 teeth removed due to abcess Past Anesthesia/Blood Transfusion Reactions: No Reported Reaction Additional Past Anesthesia/Blood Transfusion Reaction / Comment(s): CLAUSTROPHOBIA Past Psychological History: ADD/ADHD, Anxiety Smoking Status: Current every day smoker Past Alcohol Use History: None Reported Past Drug Use History: None Reported - Past Family History Father Family Medical History: Cancer Additional Family Medical History / Comment(s): Father at age 48 from lung cancer. Mother Family Medical History: Congestive Heart Failure (CHF), CVA/TIA Additional Family Medical History / Comment(s): Mother is alive at age 68. She has suffered from a CVA and has chronic back problems. Patient has 2 brothers and 4 sisters with no major medical problems. General Exam - General Exam Comments Initial Comments: This is a well-developed well-nourished awake alert oriented 3 female she does demonstrate a [place] Coma Scale of 15 Limitations: no limitations General appearance: alert, in no apparent distress, anxious Head exam: Present: atraumatic, normocephalic, normal inspection Eye exam: Present: normal appearance, PERRL, EOMI. Absent: scleral icterus, conjunctival injection, periorbital swelling ENT exam: Present: normal exam, mucous membranes moist Neck exam: Present: normal inspection, tenderness (Tenderness palpation of the left trapezius musculature no midline cervical spinous process tenderness.). Absent: meningismus, lymphadenopathy Respiratory exam: Present: normal lung sounds bilaterally. Absent: respiratory distress, wheezes, rales, rhonchi, stridor Cardiovascular Exam: Present: regular rate, normal rhythm, normal heart sounds. Absent: systolic murmur, diastolic murmur, rubs, gallop, clicks GI/Abdominal exam: Present: soft, normal bowel sounds. Absent: distended, tenderness, guarding, rebound, rigid Extremities exam: Present: normal inspection, full ROM, tenderness (Penicillin left lateral shoulder no obvious step-off or crepitation however the clavicle appears to be nontender.), normal capillary refill. Absent: pedal edema, joint swelling, calf tenderness Back exam: Present: normal inspection Neurological exam: Present: alert, oriented X3, CN II-XII intact Psychiatric exam: Present: normal affect, normal mood Skin exam: Present: warm, dry, intact, normal color. Absent: rash Course Vital Signs 07/30/17 07/30/17 07/30/17 11:45 13:19 14:08 Temperature 98.7 F Pulse Rate 107 H 98 104 H Respiratory 16 18 20 Rate Blood Pressure 139/99 149/78 127/80 O2 Sat by Pulse 99 97 98 Oximetry 07/30/17 15:00 Temperature Pulse Rate 83 Respiratory 20 Rate Blood Pressure 132/64 O2 Sat by Pulse 98 Oximetry EKG Findings - EKG Results: EKG: interpreted by SAMI, sinus rhythm (Sinus rhythm rate of 87. 01 54 QRS duration 82 QT since QTC of 376/452 nonspecific inferior changes) Medical Decision Making - Medical Decision Making Patient persisted having neck pain is unclear whether the syncope was related to neck pain or perhaps her pain medication. She will be admitted with consultation by Dr. Peralta. I did discuss the case with Dr. Cazares - Lab Data Result diagrams: 07/30/17 12:46 07/30/17 12:46 Lab Results 07/30/17 07/30/17 07/30/17 Range/Units 12:46 12:46 12:46 WBC 9.3 (3.8-10.6) k/uL RBC 4.60 (3.80-5.40) m/uL Hgb 14.3 (11.4-16.0) gm/dL Hct 43.8 (34.0-46.0) % MCV 95.3 (80.0-100.0) fL MCH 31.2 (25.0-35.0) pg MCHC 32.7 (31.0-37.0) g/dL RDW 14.3 (11.5-15.5) % Plt Count 344 (150-450) k/uL Neutrophils % 61 % Lymphocytes % 25 % Monocytes % 7 % Eosinophils % 5 % Basophils % 1 % Neutrophils # 5.7 (1.3-7.7) k/uL Lymphocytes # 2.3 (1.0-4.8) k/uL Monocytes # 0.7 (0-1.0) k/uL Eosinophils # 0.4 (0-0.7) k/uL Basophils # 0.1 (0-0.2) k/uL PT (9.0-12.0) sec INR (<1.2) APTT (22.0-30.0) sec Sodium 143 (137-145) mmol/L Potassium 4.1 (3.5-5.1) mmol/L Chloride 109 H (98-107) mmol/L Carbon Dioxide 23 (22-30) mmol/L Anion Gap 11 mmol/L BUN 8 (7-17) mg/dL Creatinine 0.69 (0.52-1.04) mg/dL Est GFR (MDRD) Af Amer >60 (>60 ml/min/1.73 sqM) Est GFR (MDRD) Non-Af >60 (>60 ml/min/1.73 sqM) Glucose 98 (74-99) mg/dL Calcium 10.2 (8.4-10.2) mg/dL Magnesium 1.8 (1.6-2.3) mg/dL Total Bilirubin 0.3 (0.2-1.3) mg/dL AST 29 (14-36) U/L ALT 53 H (9-52) U/L Alkaline Phosphatase 111 (38-126) U/L Total Creatine Kinase 34 (30-135) U/L CK-MB (CK-2) 0.4 (0.0-2.4) ng/mL CK-MB (CK-2) Rel Index 1.2 Troponin I <0.012 (0.000-0.034) ng/mL Total Protein 7.3 (6.3-8.2) g/dL Albumin 4.3 (3.5-5.0) g/dL 07/30/17 Range/Units 12:46 WBC (3.8-10.6) k/uL RBC (3.80-5.40) m/uL Hgb (11.4-16.0) gm/dL Hct (34.0-46.0) % MCV (80.0-100.0) fL MCH (25.0-35.0) pg MCHC (31.0-37.0) g/dL RDW (11.5-15.5) % Plt Count (150-450) k/uL Neutrophils % % Lymphocytes % % Monocytes % % Eosinophils % % Basophils % % Neutrophils # (1.3-7.7) k/uL Lymphocytes # (1.0-4.8) k/uL Monocytes # (0-1.0) k/uL Eosinophils # (0-0.7) k/uL Basophils # (0-0.2) k/uL PT 9.4 (9.0-12.0) sec INR 0.9 (<1.2) APTT 23.6 (22.0-30.0) sec Sodium (137-145) mmol/L Potassium (3.5-5.1) mmol/L Chloride (98-107) mmol/L Carbon Dioxide (22-30) mmol/L Anion Gap mmol/L BUN (7-17) mg/dL Creatinine (0.52-1.04) mg/dL Est GFR (MDRD) Af Amer (>60 ml/min/1.73 sqM) Est GFR (MDRD) Non-Af (>60 ml/min/1.73 sqM) Glucose (74-99) mg/dL Calcium (8.4-10.2) mg/dL Magnesium (1.6-2.3) mg/dL Total Bilirubin (0.2-1.3) mg/dL AST (14-36) U/L ALT (9-52) U/L Alkaline Phosphatase (38-126) U/L Total Creatine Kinase (30-135) U/L CK-MB (CK-2) (0.0-2.4) ng/mL CK-MB (CK-2) Rel Index Troponin I (0.000-0.034) ng/mL Total Protein (6.3-8.2) g/dL Albumin (3.5-5.0) g/dL - Radiology Data Radiology results: report reviewed (Imaging was reviewed no acute findings.), image reviewed Disposition Clinical Impression: Syncope, Neck pain Disposition: ADMITTED IP TO THIS [facility] Condition: Stable Referrals: Estelle Butterfield DO [Primary Care Provider] - 1-2 days
[2017-07-30] MEDS: SODIUM CHLORIDE 0.9% 1,000 ML IV STA ×2 (12:49→18:48)
[2017-07-30 12:57] LABS: Basophils # (A) 0.1 k/uL (0-0.2); Basophils % (A) 1 %; Eosinophils # (A) 0.4 k/uL (0-0.7); Eosinophils % (A) 5 %; HCT 43.8 % (34.0-46.0); HGB 14.3 gm/dL (11.4-16.0); Lymphocytes # (A) 2.3 k/uL (1.0-4.8); Lymphocytes % (A) 25 %; MCH 31.2 pg (25.0-35.0); MCHC 32.7 g/dL (31.0-37.0); MCV 95.3 fL (80.0-100.0); Mean Platelet Volume 7.1; Monocytes # (A) 0.7 k/uL (0-1.0); Monocytes % (A) 7 %; Neutrophils # (A) 5.7 k/uL (1.3-7.7); Neutrophils % (A) 61 %; Platelet Count 344 k/uL (150-450); RDW 14.3 % (11.5-15.5); WBC 9.3 k/uL (3.8-10.6)
[2017-07-30 13:05] LABS: ALT 53 U/L (9-52); AST 29 U/L (14-36); Albumin 4.3 g/dL (3.5-5.0); Alkaline Phosphatase 111 U/L (38-126); Anion Gap 11 mmol/L; Blood Urea Nitrogen 8 mg/dL (7-17); Calcium 10.2 mg/dL (8.4-10.2); Carbon Dioxide 23 mmol/L (22-30); Chloride 109 mmol/L (98-107); Glucose 98 mg/dL (74-99); INR 0.9 (<1.2); Magnesium 1.8 mg/dL (1.6-2.3); Partial Thromboplastin Time 23.6 sec (22.0-30.0); Potassium 4.1 mmol/L (3.5-5.1); Prothrombin Time 9.4 sec (9.0-12.0); Sodium 143 mmol/L (137-145); Total Bilirubin 0.3 mg/dL (0.2-1.3); Total Protein 7.3 g/dL (6.3-8.2)
[2017-07-30 13:16] LABS: Creatine Kinase 34 U/L (30-135)
[2017-07-30 13:29] LABS: Creatine Kinase MB 0.4 ng/mL (0.0-2.4); Troponin I <0.012 ng/mL (0.000-0.034)
--- NOTE | 2017-07-30 13:47 | CT ---
EXAMINATION TYPE: CT brain cspine wo con DATE OF EXAM: 07/30/2017 COMPARISON: CT brain June 13, 2017. CT neck June 12, 2017. HISTORY: Left sided neck and head pain without injury CT DLP: 1776 mGycm. Automated Exposure Control for Dose Reduction was Utilized. TECHNIQUE: CT scan of the head and cervical spine are performed without contrast. FINDINGS: There is no acute intracranial hemorrhage, mass effect, or midline shift identified. The ventricles and sulci are within normal limits in size. Some mild low-attenuation periventricular wh ite matter is redemonstrated. The globes are intact and the visualized sinuses are clear. Cervical spine is visualized in its entirety from C1 through upper thoracic levels and demonstrates s table alignment without evidence of acute fracture or dislocation. Prevertebral soft tissue appears within normal limits. The C1-C2 articulation is within normal limits on the coronal images. There is redemonstration of anterior fusion plate C5-C6 level. Moderate to severe disc space narrowin g at this level is redemonstrated. There is mild to moderate anterior spurring C4 level. There is mod erate disc space narrowing C6-C7 level with spurring anteriorly redemonstrated. Posterior spur disc c omplexes effacing anterior thecal sac at C5-C6 level similar to prior. Axial images are unremarkable. Thyroid gland is not enlarged. Lung apices show some scattered subpleural blebs similar to prior. IMPRESSION: 1. There is no acute fracture or dislocation evident in the cervical spine. Postsurgical and degenera tive changes redemonstrated without significant interval change. 2. No acute intracranial hemorrhage or midline shift is seen.
--- NOTE | 2017-07-30 13:48 | XR ---
EXAMINATION TYPE: XR shoulder complete LT DATE OF EXAM: 07/30/2017 COMPARISON: NONE HISTORY: Pain TECHNIQUE: Three views are submitted. FINDINGS: The osseous structures are intact. There is no acute fracture or dislocation. The AC joint is maint ained. IMPRESSION: 1. No acute process.
--- NOTE | 2017-07-30 13:48 | XR ---
EXAMINATION TYPE: XR chest 2V DATE OF EXAM: 07/30/2017 COMPARISON: 06/14/2017 TECHNIQUE: PA and lateral views submitted. HISTORY: Syncope FINDINGS: The lungs are clear and there is no pneumothorax, pleural effusion, or focal pneumonia. Postsurgical change overlying the cervical spine. Biapical pleural thickening. Surgical clips in the abdomen. IMPRESSION: 1. No acute process.
[2017-07-30] MEDS ORDERED: ORPHENADRINE 30 MG/ML 2 ML VIAL IVP STA (15:08)
[2017-07-30 16:18] LABS: Appearance,Urine Cloudy (Clear); Bacteria,Urine Few /hpf; Bilirubin,Urine Negative (Negative); Blood,Urine Small (Negative); Color,Urine Yellow; Glucose,Urine (UA) Negative (Negative); Ketones,Urine Negative (Negative); Leukocyte Esterase,Urine Negative (Negative); Mucus,Urine Occasional /hpf; Nitrite,Urine Negative (Negative); PH, Urine 5.5 (5.0-8.0); Protein,Urine Negative (Negative); RBC,Urine 2 /hpf (0-5); Squamous Epithelial Cell,Urine 7 /hpf (0-4); Urobilinogen,Urine <2.0 mg/dL (<2.0); WBC,Urine 3 /hpf (0-5)
[2017-07-30] MEDS ORDERED: ACETAMINOPHEN TAB 325 MG TAB PO PRN (16:47)
[2017-07-30] MEDS: HYDROmorphone 2 MG/ML 1 ML SYRINGE IV PRN ×3 (17:12→23:51)
--- NOTE | 2017-07-30 17:13 | P.HPIM ---
History of Present Illness H&P Date: 07/30/17 Chief Complaint: SyncopeX2 38-year-old female who was sent in from her neurologist's office where she was going to have EEG and EMG done for evaluation for syncope. She states she passed out twice yesterday with loss of consciousness lasting less than a minute. Today she also had another episode lasting about a minute. She fell on her left shoulder and currently she is experiencing severe pain in the shoulder and the left side of the neck. During the episodes she bit her tongue but denied any stool or urine incontinence. No focal weakness or numbness. Patient stated that since May she has been having episodes of severe dizziness that feels like vertigo when she turns her head to the left. After those episodes she usually throws up. She had many of these episodes since May. She also described intermittent episodes of slurred speech, inability to express her thoughts despite knowing what she wants to say, and blurry vision. She is worried that these could be symptoms of MS as her sister has it. When she was interviewed she stressed on her acute on chronic left-sided neck pain and left shoulder pain, was persistently asking for IV dilaudid for the pain. She denies any chest pain or shortness of breath but did have some palpitations with the episodes. Review of Systems 12 point review of system performed negative except HPI Past Medical History Past Medical History: Asthma, GERD/Reflux, Hypertension, Pneumonia Additional Past Medical History / Comment(s): COPD, chronic back pain, lumbar degenerative disc disease, insomnia, shingles, hiatal hernia, kidney stones History of Any Multi-Drug Resistant Organisms: MRSA Date of last positivie culture/infection: 09/22/2009 MDRO Source:: neck Past Surgical History: Appendectomy, Back Surgery, Section, Cholecystectomy, Hernia Repair Additional Past Surgical History / Comment(s): Cervical spine fusion with insertion of a metal plate, EGD, colonoscopy, hiatal hernia, lumbar rhizotomy and radiofrequency ablation., Appendectomy, , cholecystectomy, hernia repair,6 teeth removed due to abcess Past Anesthesia/Blood Transfusion Reactions: No Reported Reaction Additional Past Anesthesia/Blood Transfusion Reaction / Comment(s): CLAUSTROPHOBIA Past Psychological History: ADD/ADHD, Anxiety Smoking Status: Current every day smoker Past Alcohol Use History: None Reported Past Drug Use History: None Reported - Past Family History Father Family Medical History: Cancer Additional Family Medical History / Comment(s): Father at age 48 from lung cancer. Mother Family Medical History: Congestive Heart Failure (CHF), CVA/TIA Additional Family Medical History / Comment(s): Mother is alive at age 68. She has suffered from a CVA and has chronic back problems. Patient has 2 brothers and 4 sisters with no major medical problems. Medications and Allergies Home Medications Medication Instructions Recorded Confirmed Type Atenolol [Tenormin] 50 mg PO DAILY 02/24/17 07/30/17 History clonazePAM [KlonoPIN] 0.5 mg PO BID 02/24/17 07/30/17 History Vitamin B Complex 1 cap PO DAILY 06/07/17 07/30/17 History Cholecalciferol [Vitamin D3] 1,000 unit PO DAILY 06/10/17 07/30/17 History Gabapentin [Neurontin] 400 mg PO TID #90 cap 06/15/17 07/30/17 Rx oxyCODONE-APAP 7.5-325MG [Percocet 1 tab PO TID PRN #90 tab 06/15/17 07/30/17 Rx 7.5-325 mg] Dextroamphetamine/Amphetamine 30 mg PO DAILY 07/30/17 07/30/17 History [Adderall] Doxepin HCl 50 mg PO HS 07/30/17 07/30/17 History Ibuprofen [Motrin] 800 mg PO TID PRN 07/30/17 07/30/17 History Omeprazole 20 mg PO BID 07/30/17 07/30/17 History Allergies Allergy/AdvReac Type Severity Reaction Status Date / Time ibuprofen Allergy Rash/Hives Verified 07/30/17 12:37 ketorolac [From Toradol] Allergy Unknown Verified 07/30/17 12:37 morphine Allergy Swelling Verified 07/30/17 12:37 shellfish derived Allergy Anaphylaxis Verified 07/30/17 12:37 tramadol [From Ultram] Allergy Rash/Hives Verified 07/30/17 12:37 Physical Exam Vitals: Vital Signs Temp Pulse Resp BP Pulse Ox 07/30/17 15:00 83 20 132/64 98 07/30/17 14:08 104 H 20 127/80 98 07/30/17 13:19 98 18 149/78 97 07/30/17 11:45 98.7 F 107 H 16 139/99 99 Intake and Output 07/30/17 07/30/17 07/30/17 06:59 14:59 22:59 Other: Weight 63.503 kg Patient Weight 07/31/17 06:59 Weight 63.503 kg Constitutional: No acute distress, conversant, pleasant Eyes:Anicteric sclerae, moist conjunctiva, no lid-lag, PERRLA, ENMT: Oropharynx clear, no erythema, exudates Neck: Supple, limited ROM miguel to the left, no masses, or JVD, No carotid bruits , No thyromegaly Lungs: Clear to auscultation, Clear to percussion, Normal respiratory effort, no accessory muscle use Cardiovascular: Heart regular in rate and rhythm, No murmurs, gallops, or rubs, No peripheral edema Abdominal: Soft, Nontender, no guarding, rebound or rigidity, Normoactive bowel sounds, No hepatomegaly, No splenomegaly, No palpable mass Skin: Normal temperature, tone, texture, turgor, no induration, No subcutaneous nodules, No rash, lesions, No ulcers Extremities: No digital cyanosis, No clubbing, Pedal pulses intact and symmetrical, Radial pulses intact and symmetrical, No calf tenderness Psychiatric: Alert and oriented to person, place and time, appropriate affect, intact judgement Neuro: Muscles Strength 4+/5 in all 4 extremities, Sensation to light touch grossly present throughout, no focal sensory or motor deficits. Speech clear. Results CBC & Chem 7: 07/30/17 12:46 07/30/17 12:46 Labs: Abnormal Lab Results - Last 24 Hours (Table) 07/30/17 07/30/17 Range/Units 12:46 16:00 Chloride 109 H (98-107) mmol/L ALT 53 H (9-52) U/L Urine Appearance Cloudy H (Clear) Urine Blood Small H (Negative) Ur Squamous Epith Cells 7 H (0-4) /hpf Urine Bacteria Few H (None) /hpf Urine Mucus Occasional H (None) /hpf Assessment and Plan Plan: #1 Acute syncope: -Unclear etiology -Consult neuro -CT head and neck reviewed--nothing acute -Labs reviewed -EEG. -Telemetry -PT/OT -Recently had CT angio of the head and neck about 2 months ago---WNL -Brain MRI about 2 months ago reviewed #2 Left shoulder pain, acute: Dilaudid prn X-ray WNL #3 Asthma/COPD, GERD/Reflux, Hypertension, chronic back and neck pain: All stable Continue home meds.
[2017-07-30] MEDS: SODIUM CHLORIDE 0.9% 1,000 ML IV SCH (18:49)
[2017-07-30] MEDS ORDERED: ALPRAZolam 0.5 MG TAB PO PRN (19:35)
--- NOTE | 2017-07-30 20:17 | US ---
EXAMINATION TYPE: US carotid duplex BILAT DATE OF EXAM: 07/30/2017 COMPARISON: CT angio 06/13/2017 CLINICAL HISTORY: Stenosis. Patient passed out today EXAM MEASUREMENTS: RIGHT: Peak Systolic Velocity (PSV) cm/sec ----- Right CCA: 66.7 ----- Right ICA: 97.3 ----- Right ECA: 53.7 ICA/CCA ratio: 1.5 RIGHT: End Diastole cm/sec ----- Right CCA: 26.0 ----- Right ICA: 47.8 ----- Right ECA: 14.4 LEFT: Peak Systolic Velocity (PSV) cm/sec ----- Left CCA: 72.5 ----- Left ICA: 87.9 ----- Left ECA: 55.5 ICA/CCA ratio: 1.2 LEFT: End Diastole cm/sec ----- Left CCA: 28.9 ----- Left ICA: 38.7 ----- Left ECA: 14.1 VERTEBRALS (direction of flow): Right Vertebral: Antegrade Left Vertebral: Antegrade Rhythm: Normal Mild amount of plaque visualized in bilateral bulbs. No elevated velocities. No significant stenosis. IMPRESSION: There is antegrade flow in the vertebral arteries. The images and measurements suggest l ess than 20% stenosis in both internal carotid arteries. Criteria for Assigning % of Stenosis / Diameter reduction (Estimation based on the indirect measurements of the internal carotid artery velocities (ICA PSV). 1. Normal (no stenosis)=ICA PSV < 125 cm/s: ratio < 2.0: ICA EDV<40 cm/s. 2. Less than 50% stenosis=ICA PSV < 125 cm/s: ratio < 2.0: ICA EDV<40 cm/s. 3. 50 to 69% stenosis=ICA PSV of 125 to 230 cm/s: ration 2.0 ? 4.0: ICA EDV 40-100 cm/s. 4. Greater than 70% stenosis to near occlusion= ICA PSV > 230 cm/s: ratio > 4.0: ICA EDV > 100 cm/s. 5. Near occlusion= ICA PSV velocities may be low or undetectable: variable ratio and ICA EDV. 6. Total occlusion=unable to detect flow.
[2017-07-30] MEDS: GABAPENTIN 400 MG CAP PO SCH (20:48)
[2017-07-30] MEDS: clonazePAM 0.5 MG TAB PO SCH (20:48)
[2017-07-30] MEDS: DOXEPIN 25 MG CAP PO SCH (20:48)
[2017-07-30] MEDS: LORazepam 2 MG/ML INJ IV PRN (20:49)
--- NOTE | 2017-07-30 23:55 | P.CNNES ---
History of Present Illness Consult date: 07/30/17 Reason for Consult: Patient with acute syncopal episode and dizziness. History of Present Illness: This patient is a 47-year-old right-handed white female who was seen in the outpatient neurology clinic today for testing. She had informed her neurologist Dr. Telma Alicea that she had had a syncopal episode at home prior to coming for testing. She was asked why she was driving having complained of a syncopal episode earlier in the day. Patient was advised to go directly to the emergency room for further evaluation and admission. A taxi was called and she was transported by taxi to the ER at [facility]. Patient was seen in the ER by Dr. Field who evaluated her in ER. She was sent for computed tomography scan of the brain and cervical spine. The CAT scan of the brain revealed no acute intracranial abnormality. CAT scan of the cervical spine revealed no acute fracture or dislocation. Postsurgical changes were noted with no change from previous study done on 06/12/2017. Patient states she does have a history of having undergone cervical spine surgery in 2005. She does complain of some neck pain that radiates into her shoulders. She was having further testing to evaluate for possibility of a pinched nerve that as noted she was advised admission today due to her recent syncopal episode. Patient also has been complaining of severe dizziness when she turns her head to the left side. She becomes near syncopal. She also complains of vertigo that is quite severe with rapid turning of the head to the left side. We have recommended an ENT consultation for further evaluation. She denies any previous history of seizures however she will undergo routine EEG tomorrow for further evaluation. Patient has a history of having completed an MRI of the brain last year on 06/15/2017. This revealed no evidence of stroke. Nonspecific white matter changes were noted. The patient stated that she did pass out twice yesterday with loss of consciousness. She states that the episode lasted less than a minute in duration. The exact details of this morning's episode were not clearly identified by the patient. The patient denies previous history of seizures or head trauma. She has not had any recent closed head injuries. She does have history of chronic back and neck pain ever since her surgery in 2005. She is now been admitted and neurology has been consulted for further evaluation and recommendations. Review of Systems Constitutional: Denies chills, Denies fever Eyes: denies blurred vision, denies pain Ears, nose, mouth and throat: Denies headache, Denies sore throat Cardiovascular: Denies chest pain, Denies shortness of breath Respiratory: Denies cough Gastrointestinal: Denies abdominal pain, Denies diarrhea, Denies nausea, Denies vomiting Genitourinary: Denies dysuria, Denies hematuria Musculoskeletal: Denies myalgias Integumentary: Denies pruritus, Denies rash Neurological: Reports balance difficulties, Reports hearing difficulties, Reports syncope, Reports vertigo, Denies numbness, Denies weakness Psychiatric: Denies anxiety, Denies depression Endocrine: Denies fatigue, Denies weight change Past Medical History Past Medical History: Asthma, CVA/TIA, GERD/Reflux, Hypertension, Pneumonia Additional Past Medical History / Comment(s): COPD, chronic back pain, lumbar degenerative disc disease, insomnia, shingles, hiatal hernia, kidney stones. TIA ,"IF I TURN MY HEAD TO THE LEFT I GET DIZZY LIKE I'M SPINNING' History of Any Multi-Drug Resistant Organisms: MRSA Date of last positivie culture/infection: 09/22/2009 MDRO Source:: neck Past Surgical History: Appendectomy, Back Surgery, Section, Cholecystectomy, Hernia Repair Additional Past Surgical History / Comment(s): Cervical spine fusion with insertion of a metal plate, EGD, colonoscopy, hiatal hernia, lumbar rhizotomy and radiofrequency ablation., Appendectomy, , cholecystectomy, hernia repair,6 teeth removed due to abcess, recently had some teeth pulled. Past Anesthesia/Blood Transfusion Reactions: No Reported Reaction Additional Past Anesthesia/Blood Transfusion Reaction / Comment(s): CLAUSTROPHOBIA Smoking Status: Former smoker - Past Family History Father Family Medical History: Cancer Additional Family Medical History / Comment(s): Father at age 48 from lung cancer. Mother Family Medical History: Congestive Heart Failure (CHF), CVA/TIA Additional Family Medical History / Comment(s): Mother is alive at age 68. She has suffered from a CVA and has chronic back problems. Patient has 2 brothers and 4 sisters with no major medical problems. Medications and Allergies Home Medications Medication Instructions Recorded Confirmed Type Atenolol [Tenormin] 50 mg PO DAILY 02/24/17 07/30/17 History clonazePAM [KlonoPIN] 0.5 mg PO BID 02/24/17 07/30/17 History Vitamin B Complex 1 cap PO DAILY 06/07/17 07/30/17 History Cholecalciferol [Vitamin D3] 1,000 unit PO DAILY 06/10/17 07/30/17 History Gabapentin [Neurontin] 400 mg PO TID #90 cap 06/15/17 07/30/17 Rx oxyCODONE-APAP 7.5-325MG [Percocet 1 tab PO TID PRN #90 tab 06/15/17 07/30/17 Rx 7.5-325 mg] Dextroamphetamine/Amphetamine 30 mg PO DAILY 07/30/17 07/30/17 History [Adderall] Doxepin HCl 50 mg PO HS 07/30/17 07/30/17 History Ibuprofen [Motrin] 800 mg PO TID PRN 07/30/17 07/30/17 History Omeprazole 20 mg PO BID 07/30/17 07/30/17 History Allergies Allergy/AdvReac Type Severity Reaction Status Date / Time ibuprofen Allergy Rash/Hives Verified 07/30/17 12:37 ketorolac [From Toradol] Allergy Unknown Verified 07/30/17 12:37 morphine Allergy Swelling Verified 07/30/17 12:37 shellfish derived Allergy Anaphylaxis Verified 07/30/17 12:37 tramadol [From Ultram] Allergy Rash/Hives Verified 07/30/17 12:37 Physical Examination - Vital Signs Vital Signs: Vital Signs Temp Pulse Pulse Resp BP BP Pulse Ox 07/30/17 18:18 97 F L 88 20 120/85 96 07/30/17 17:38 95 07/30/17 17:07 98.5 F 86 18 127/82 95 07/30/17 15:00 83 20 132/64 98 07/30/17 14:08 104 H 20 127/80 98 07/30/17 13:19 98 18 149/78 97 07/30/17 11:45 98.7 F 107 H 16 139/99 99 Intake and Output 07/30/17 07/30/17 07/30/17 06:59 14:59 22:59 Intake Total 0 Balance 0 Intake: Intake, IV Titration 0 Amount Sodium Chloride 0.9% 1, 0 000 ml @ 100 mls/hr IV . Q10H [facility] Rx#:[id number] Other: Weight 63.503 kg Patient Weight 07/31/17 06:59 Weight 63.503 kg - Constitutional General appearance: average body habitus, cooperative - EENT EENT: PERRL, mucous membranes moist - Respiratory Respiratory: lungs clear, normal breath sounds - Cardiovascular Cardiovascular: regular rate, normal S1, normal S2 Extremities: no peripheral edema bilaterally - Gastrointestinal Gastrointestinal: normoactive bowel sounds - Integumentary Integumentary: normal - Neurologic Cranial nerve examination: PERRL, EOMI, VFF, V1/V2/V3 grossly intact, face symmetric, tongue midline, intact gag reflex, intact corneal reflex, normal palatal elevation Speech examination: intact Sensorimotor examination: intact Detailed motor examination: grossly full strength in all extremities Motor examination - right side: 4/5: biceps, triceps, wrist flexion, wrist extension, fitness attendant, hip flexors, knee extensors, dorsiflexion, toe extension (EHL) , plantarflexion Motor examination - left side: 4/5: biceps, triceps, wrist flexion, wrist extension, fitness attendant, hip flexors, knee extensors, dorsiflexion, toe extension (EHL) , plantarflexion Detailed sensory examination: intact Reflex and gait examination: intact Reflexes: 1+: ankle, bicep, knee, tricep - Musculoskeletal Musculoskeletal: no pain - Psychiatric Psychiatric: mood/affect appropriate, cooperative Results - Laboratory Findings CBC and BMP: 07/30/17 12:46 07/30/17 12:46 Abnormal Lab Findings: Abnormal Labs 07/30/17 07/30/17 12:46 16:00 Chloride 109 H ALT 53 H Urine Appearance Cloudy H Urine Blood Small H Ur Squamous Epith Cells 7 H Urine Bacteria Few H Urine Mucus Occasional H Assessment and Plan (1) Syncope Current Visit: Yes Status: Acute Code(s): R55 - SYNCOPE AND COLLAPSE SNOMED Code(s): 316206465 (2) Cervicalgia Current Visit: Yes Status: Chronic Code(s): M54.2 - CERVICALGIA SNOMED Code(s): 78862185 (3) Chronic back pain Current Visit: No Status: Acute Code(s): M54.9 - DORSALGIA, UNSPECIFIED; G89.29 - OTHER CHRONIC PAIN SNOMED Code(s): 274711874 (4) COPD (chronic obstructive pulmonary disease) Current Visit: No Status: Acute Code(s): J44.9 - CHRONIC OBSTRUCTIVE PULMONARY DISEASE, UNSPECIFIED SNOMED Code(s): 63449358 Plan: This patient is a 47-year-old female who was admitted to hospital today from the outpatient neurology clinic after she admitted to having had a syncopal episode this morning and 2 episodes yesterday. She was advised rectal admission to the hospital for further evaluation. She was advised she cannot drive in the [facility] for appeared of 6 months following any syncopal episode. She was taken by taxi to the emergency room today at [facility]. She was seen in the ER by Dr. Field. Computed tomography scan of the brain and cervical spine were completed the results of which are noted above. Patient will undergo routine EEG tomorrow for further evaluation of acute syncope. She did undergo an MRI of the brain on 06/15/2017 which revealed nonspecific white matter changes. At this time we will await an ENT consultation as she has evidence suggesting vestibular neuronitis which may be contributing to hers symptoms of possible syncope. We'll await further recommendations from ENT. Her overall prognosis at this time remains guarded. Time with Patient: Greater than 30
[2017-07-31] MEDS: SODIUM CHLORIDE 0.9% 1,000 ML IV SCH ×3 (03:34→23:24)
[2017-07-31] MEDS: HYDROmorphone 2 MG/ML 1 ML SYRINGE IV PRN ×6 (03:34→20:59)
[2017-07-31] MEDS ORDERED: ONDANSETRON 4 MG/2 ML VIAL IVP PRN (04:45)
[2017-07-31] MEDS: LORazepam 2 MG/ML INJ IV PRN (04:53)
[2017-07-31] MEDS: PANTOPRAZOLE 40 MG TABLET PO SCH (05:56)
[2017-07-31] MEDS: ONDANSETRON 4 MG/2 ML VIAL IVP PRN ×3 (06:10→18:15)
[2017-07-31 07:30] LABS: Basophils % (A) 0 %; Eosinophils # (A) 0.3 k/uL (0-0.7); Eosinophils % (A) 3 %; HCT 41.2 % (34.0-46.0); HGB 13.1 gm/dL (11.4-16.0); Lymphocytes # (A) 1.1 k/uL (1.0-4.8); Lymphocytes % (A) 12 %; MCH 31.3 pg (25.0-35.0); MCHC 31.8 g/dL (31.0-37.0); MCV 98.4 fL (80.0-100.0); Mean Platelet Volume 7.2; Monocytes # (A) 0.7 k/uL (0-1.0); Monocytes % (A) 7 %; Neutrophils # (A) 7.4 k/uL (1.3-7.7); Neutrophils % (A) 76 %; Platelet Count 261 k/uL (150-450); RBC 4.19 m/uL (3.80-5.40); RDW 14.2 % (11.5-15.5); WBC 9.6 k/uL (3.8-10.6)
[2017-07-31 08:01] LABS: ALT 49 U/L (9-52); AST 24 U/L (14-36); Albumin 3.4 g/dL (3.5-5.0); Alkaline Phosphatase 90 U/L (38-126); Anion Gap 8 mmol/L; Blood Urea Nitrogen 8 mg/dL (7-17); Calcium 9.6 mg/dL (8.4-10.2); Carbon Dioxide 29 mmol/L (22-30); Chloride 105 mmol/L (98-107); Cholesterol 202 mg/dL (<200); Glucose 92 mg/dL (74-99); HDL Cholesterol 50 mg/dL (40-60); LDL Cholesterol,Calculated 116 mg/dL (0-99); Magnesium 1.5 mg/dL (1.6-2.3); Phosphorus 4.7 mg/dL (2.5-4.5); Sodium 142 mmol/L (137-145); Total Bilirubin 0.4 mg/dL (0.2-1.3); Triglycerides 182 mg/dL (<150)
[2017-07-31 08:12] LABS: Potassium 3.8 mmol/L (3.5-5.1)
[2017-07-31] MEDS: ATENOLOL 50 MG TAB PO SCH (09:44)
[2017-07-31] MEDS: CHOLECALCIFEROL 1,000 UNIT TAB PO SCH ×2 (09:45→13:44)
[2017-07-31] MEDS: B COMPLEX-VIT C-VIT E-ZINC 1 EACH TAB PO SCH ×2 (09:45→13:44)
[2017-07-31] MEDS: GABAPENTIN 400 MG CAP PO SCH ×3 (09:45→20:55)
[2017-07-31] MEDS: NON-FORMULARY DRUG (Dextroamphetamine/Amphetamine [Adderall] 30 MG) PO SCH (09:45)
[2017-07-31] MEDS: oxyCODONE-APAP 7.5-325MG 1 EACH TAB PO PRN ×2 (09:49→18:15)
[2017-07-31] MEDS: MAGNESIUM SULFATE-D5W PMX 1 GM in DEXTROSE/WATER 1 100ML.BAG IVPB SCH ×2 (09:49→11:24)
[2017-07-31] MEDS: clonazePAM 0.5 MG TAB PO SCH ×2 (09:49→20:59)
--- NOTE | 2017-07-31 14:41 | EEG ---
ELECTROENCEPHALOGRAM REPORT DATE OF EE07/31/2017. REFERRING PHYSICIAN: Dr. Cazares. CONSULTING INTERPRETING PHYSICIAN: Dr. Adolfo Alicea ELECTROENCEPHALOGRAPHIC EXAMINATION REPORT: INDICATION FOR EXAMINATION: This patient is a 47-year-old female being evaluated for recurrent syncopal episodes and dizziness. AGE: 47. EEG FINDINGS: A routine 21 channel awake digital EEG recording was accomplished utilizing the 10-20 international system with bipolar and referential montages. The background activity in the most alert resting state consists of a low to medium amplitude, fairly well developed and well sustained 8 Hz activity over the posterior head regions. This posterior rhythm attenuates to eye opening. There is a small amount of low amplitude 18-20 Hz beta activity seen maximally over the anterior head regions. Muscle and movement artifact was observed on a few occasions during the tracing. Hyperventilation was not performed. Photic stimulation at flash frequencies of 2-30 Hz produced a good symmetrical occipital driving response. No epileptiform discharges were seen. IMPRESSION: This EEG is within normal limits for the patient's age. The EEG failed to reveal any focal, lateralized, or epileptiform abnormalities. Clinical correlation is recommended. MMODL / IJN: [id number] /
--- NOTE | 2017-07-31 16:00 | P.PN ---
Subjective Progress Note Date: 07/31/17 Principal diagnosis: Syncope Patient did not have any further episodes of syncope. She is still having left- sided neck pain and shoulder pain but the pain is better with Dilaudid. Objective - Vital Signs Vital signs: Vital Signs Temp 98.9 F 07/31/17 15:34 Pulse 84 07/31/17 15:44 Resp 20 07/31/17 15:34 BP 100/72 07/31/17 15:44 Pulse Ox 94 L 07/31/17 15:34 Intake & Output 07/30/17 07/31/17 07/31/17 18:59 06:59 18:59 Intake Total 0 500 800 Output Total 300 Balance 0 200 800 Weight 63.503 kg 65 kg Intake: IV 800 Sodium Chloride 0.9% 1, 800 000 ml @ 100 mls/hr IV . Q10H [facility] Rx#:[id number] Intake, IV Titration 0 500 Amount Sodium Chloride 0.9% 1, 0 500 000 ml @ 100 mls/hr IV . Q10H [facility] Rx#:[id number] Output: Urine 300 Other: Voiding Method Toilet Toilet - Exam Constitutional: No acute distress, conversant, pleasant Eyes:Anicteric sclerae, moist conjunctiva, no lid-lag, PERRLA, ENMT: Oropharynx clear, no erythema, exudates Neck: Supple, limited ROM miguel to the left, no masses, or JVD, No carotid bruits , No thyromegaly Lungs: Clear to auscultation, Clear to percussion, Normal respiratory effort, no accessory muscle use Cardiovascular: Heart regular in rate and rhythm, No murmurs, gallops, or rubs, No peripheral edema Abdominal: Soft, Nontender, no guarding, rebound or rigidity, Normoactive bowel sounds, No hepatomegaly, No splenomegaly, No palpable mass Skin: Normal temperature, tone, texture, turgor, no induration, No subcutaneous nodules, No rash, lesions, No ulcers Extremities: No digital cyanosis, No clubbing, Pedal pulses intact and symmetrical, Radial pulses intact and symmetrical, No calf tenderness Psychiatric: Alert and oriented to person, place and time, appropriate affect, intact judgement Neuro: Muscles Strength 4+/5 in all 4 extremities, Sensation to light touch grossly present throughout, no focal sensory or motor deficits. Speech clear. - Labs CBC & Chem 7: 07/31/17 07:09 07/31/17 07:09 Labs: Abnormal Lab Results - Last 24 Hours (Table) 07/30/17 07/31/17 Range/Units 16:00 07:09 Phosphorus 4.7 H (2.5-4.5) mg/dL Magnesium 1.5 L (1.6-2.3) mg/dL Total Protein 6.0 L (6.3-8.2) g/dL Albumin 3.4 L (3.5-5.0) g/dL Triglycerides 182 H (<150) mg/dL Cholesterol 202 H (<200) mg/dL LDL Cholesterol, Calc 116 H (0-99) mg/dL Urine Appearance Cloudy H (Clear) Urine Blood Small H (Negative) Ur Squamous Epith Cells 7 H (0-4) /hpf Urine Bacteria Few H (None) /hpf Urine Mucus Occasional H (None) /hpf Assessment and Plan Plan: #1 Acute syncope: -Rule out vestibular neuritis per neurology, which could be causing her to have severe vertigo/vomiting as well as syncope, needs to see ENT -ENT service was consulted but they prefer to see her as outpatient -Discussed with Dr. Alicea, neurology -EEG, reviewed by Dr. Alicea, within normal limits. -Continue on telemetry -PT/OT #2 Left shoulder pain, acute: Secondary to the fall Dilaudid prn X-ray WNL #3 Asthma/COPD, GERD/Reflux, Hypertension, chronic back and neck pain: All stable Continue home meds.
--- NOTE | 2017-07-31 18:29 | P.PN ---
Subjective Progress Note Date: 07/31/17 This patient is a 47-year-old female who was admitted to hospital for evaluation of recent syncopal episodes and dizziness. Patient was admitted to the hospital from the neurology clinic as she had commented she had suffered a syncopal episode earlier that day. She is also been complaining of severe vertigo with head movements to the left. ENT was consulted today however they are recommending she should follow up as outpatient. Patient also underwent routine EEG today for further evaluation of her syncopal episodes. Her EEG results are normal for her age with no evidence of any epileptiform discharges. Patient does continue to have some chronic pain symptoms in the left shoulder and neck region. She has a history of having had previous cervical fusion. She is being considered for possible discharge home soon. Patient has been given some pain medication which is helping. As noted she will need to follow- up with the ENT specialist as soon as possible upon discharge. She is scheduled for further testing in our office when she is discharge. Due to the recent syncope she is once again advised of the [place] driving law with states she should not drive for appeared of 6 months following any syncope and/ or seizure. Patient is aware of this restriction. We will wait to see if ENT will evaluate the patient tomorrow. Patient will need to follow-up in the outpatient neurology clinic for further evaluation of her neck pain. We will continue to follow her progress closely during this admission. Objective - Vital Signs Vital signs: Vital Signs Temp 98.9 F 07/31/17 15:34 Pulse 84 07/31/17 15:44 Resp 20 07/31/17 15:34 BP 100/72 07/31/17 15:44 Pulse Ox 94 L 07/31/17 15:34 Intake & Output 07/30/17 07/31/17 07/31/17 18:59 06:59 18:59 Intake Total 0 500 800 Output Total 300 Balance 0 200 800 Weight 63.503 kg 65 kg Intake: IV 800 Sodium Chloride 0.9% 1, 800 000 ml @ 100 mls/hr IV . Q10H [facility] Rx#:[id number] Intake, IV Titration 0 500 Amount Sodium Chloride 0.9% 1, 0 500 000 ml @ 100 mls/hr IV . Q10H [facility] Rx#:[id number] Output: Urine 300 Other: Voiding Method Toilet Toilet - Exam Physical examination: PHYSICAL EXAMINATION: Patient is resting comfortably in bed. VITAL SIGNS: Blood pressure is [100/72]. Heart rate is [84]. Respiration is [20] . Temperature is [98.9]. HEENT: Head is atraumatic, neck is supple, there were no carotid bruits. CHEST: Lungs are clear to auscultation and percussion. CARDIAC: S1, S2 normal rate and rhythm. There is no murmur. ABDOMEN: Soft and nontender. Bowel sounds are present. EXTREMITIES: There is no pedal edema. Peripheral pulses are present. Neurological examination: Patient's neurological examination is unchanged from yesterday. She continues to have some neck discomfort mostly on her left side. - Labs CBC & Chem 7: 07/31/17 07:09 07/31/17 07:09 Labs: Abnormal Lab Results - Last 24 Hours (Table) 07/31/17 Range/Units 07:09 Phosphorus 4.7 H (2.5-4.5) mg/dL Magnesium 1.5 L (1.6-2.3) mg/dL Total Protein 6.0 L (6.3-8.2) g/dL Albumin 3.4 L (3.5-5.0) g/dL Triglycerides 182 H (<150) mg/dL Cholesterol 202 H (<200) mg/dL LDL Cholesterol, Calc 116 H (0-99) mg/dL Assessment and Plan (1) Syncope Current Visit: Yes Status: Acute Code(s): R55 - SYNCOPE AND COLLAPSE SNOMED Code(s): 007155025 (2) Cervicalgia Current Visit: Yes Status: Chronic Code(s): M54.2 - CERVICALGIA SNOMED Code(s): 59883142 (3) Chronic back pain Current Visit: No Status: Acute Code(s): M54.9 - DORSALGIA, UNSPECIFIED; G89.29 - OTHER CHRONIC PAIN SNOMED Code(s): 364118867 (4) COPD (chronic obstructive pulmonary disease) Current Visit: No Status: Acute Code(s): J44.9 - CHRONIC OBSTRUCTIVE PULMONARY DISEASE, UNSPECIFIED SNOMED Code(s): 77190000 Plan: This patient is a 47-year-old female who was admitted to hospital for evaluation of syncope. General when routine EEG today which is reviewed and is normal for her age. There is no evidence of any epileptiform discharges. She continues to have chronic neck pain on the left side. She also has dizziness and ENT was consulted. They have recommended that she follow-up as outpatient. We would recommend that she not be started on any specific treatment such as meclizine until seen by ENT. We will continue workup of her neck pain issues schedule for EMG study as outpatient. We reviewed the results of the EEG today with the patient in detail. She is aware of the [place] law states she cannot drive for appeared to 6 months following her last syncopal episode and/or seizure. We will continue to follow the patient closely during this admission. She is being considered for possible discharge home tomorrow.
[2017-07-31] MEDS: DOXEPIN 25 MG CAP PO SCH (20:55)
[2017-07-31 21:54] VITALS: RESP 16
[2017-08-01] MEDS: HYDROmorphone 2 MG/ML 1 ML SYRINGE IV PRN ×4 (00:38→11:29)
[2017-08-01] MEDS: oxyCODONE-APAP 7.5-325MG 1 EACH TAB PO PRN ×2 (05:56→13:48)
[2017-08-01] MEDS: PANTOPRAZOLE 40 MG TABLET PO SCH (05:57)
[2017-08-01] MEDS: ONDANSETRON 4 MG/2 ML VIAL IVP PRN ×2 (08:06→13:50)
[2017-08-01] MEDS: GABAPENTIN 400 MG CAP PO SCH (08:13)
[2017-08-01] MEDS: CHOLECALCIFEROL 1,000 UNIT TAB PO SCH (08:13)
[2017-08-01] MEDS: NON-FORMULARY DRUG (Dextroamphetamine/Amphetamine [Adderall] 30 MG) PO SCH (08:14)
[2017-08-01] MEDS: B COMPLEX-VIT C-VIT E-ZINC 1 EACH TAB PO SCH (08:14)
[2017-08-01] MEDS: clonazePAM 0.5 MG TAB PO SCH (08:15)
[2017-08-01 11:23] VITALS: BP 101/66; PULSE 82; TEMP 98.2
[2017-08-01] MEDS: ATENOLOL 50 MG TAB PO SCH ×2 (11:24→11:48)
[2017-08-01 12:38] VITALS: BMI 27.5
--- NOTE | 2017-08-01 15:14 | P.DS ---
Providers Date of admission: 07/30/17 16:12 Expected date of discharge: 08/01/17 Attending physician: Anurag Cazares MD Consults: 07/30/17 16:12 Consult Physician Routine Consulting Provider: Telma Alicea Consult Reason/Comments: Syncope, left neck pain Do you want consulting provider notified?: Yes 07/31/17 08:00 Consult Physician Routine Consulting Provider: Jonn Guzman Consult Reason/Comments: Severe vertigo with head turns to left, possible vestibular neuronitis. Do you want consulting provider notified?: Yes Primary care physician: Estelle [facility] Course: 38-year-old female who was sent in from her neurologist's office where she was going to have EEG and EMG done for evaluation for syncope. She states she passed out twice the day before admission, with loss of consciousness lasting less than a minute. On the day of admission she also had another episode lasting about a minute. She fell on her left shoulder and was experiencing severe pain in the shoulder and the left side of the neck. During the episodes she bit her tongue but denied any stool or urine incontinence. No focal weakness or numbness. Patient stated that since May she has been having episodes of severe dizziness that feels like vertigo when she turns her head to the left. After those episodes she usually throws up. She had many of these episodes since May. She also described intermittent episodes of slurred speech, inability to express her thoughts despite knowing what she wants to say, and blurry vision. She is worried that these could be symptoms of MS as her sister has it. When she was interviewed she stressed on her acute on chronic left-sided neck pain and left shoulder pain, was persistently asking for IV dilaudid for the pain. She denies any chest pain or shortness of breath but did have some palpitations with the episodes. Patient was admitted to observation on telemetry. Throughout the admission her blood pressure has been on the on the low side and today the blood pressure medicine was held. It is possible that she became orthostatic from hypotension induced by the beta jamal that she takes for hypertension. Patient was evaluated by neurology service who thought that most of her problems were related to her left ear. An EEG was done and that came back within normal limits for her age. Throughout the admission patient was complaining from severe left neck pain/shoulder pain and she was treated with IV Dilaudid for that. Dr. Guzman from ENT was consulted and he advised her to make an appointment to see him in the office. Patient was instructed to make an appointment with Dr. Guzman upon discharge. Patient was also instructed not to drive a motor vehicle for 6 months from now. Time for d/c 35min. Patient Condition at Discharge: Stable Plan - Discharge Summary Discharge Rx Participant: No New Discharge Prescriptions: Continue clonazePAM [KlonoPIN] 0.5 mg PO BID Vitamin B Complex 1 cap PO DAILY Cholecalciferol [Vitamin D3] 1,000 unit PO DAILY Gabapentin [Neurontin] 400 mg PO TID #90 cap oxyCODONE-APAP 7.5-325MG [Percocet 7.5-325 mg] 1 tab PO TID PRN #90 tab PRN Reason: Pain Dextroamphetamine/Amphetamine [Adderall] 30 mg PO DAILY Doxepin HCl 50 mg PO HS Ibuprofen [Motrin] 800 mg PO TID PRN PRN Reason: Pain Omeprazole 20 mg PO BID Discontinued Atenolol [Tenormin] 50 mg PO DAILY Discharge Medication List clonazePAM [KlonoPIN] 0.5 mg PO BID 02/24/17 [History] Vitamin B Complex 1 cap PO DAILY 06/07/17 [History] Cholecalciferol [Vitamin D3] 1,000 unit PO DAILY 06/10/17 [History] Gabapentin [Neurontin] 400 mg PO TID #90 cap 06/15/17 [Rx] oxyCODONE-APAP 7.5-325MG [Percocet 7.5-325 mg] 1 tab PO TID PRN #90 tab [Rx] Dextroamphetamine/Amphetamine [Adderall] 30 mg PO DAILY 07/30/17 [History] Doxepin HCl 50 mg PO HS 07/30/17 [History] Ibuprofen [Motrin] 800 mg PO TID PRN 07/30/17 [History] Omeprazole 20 mg PO BID 07/30/17 [History] Follow up Appointment(s)/Referral(s): Estelle Butterfield DO [Primary Care Provider] - 1-2 days (CALL Wednesday FOR APPOINTMENT TIME) Telma Alicea MD [STAFF PHYSICIAN] - 1 Week Jonn Guzman MD [STAFF PHYSICIAN] - 3 Days (CALL Wednesday - DR GUZMAN STATES HE WILL GET YOU IN RIGHT AWAY) Patient Instructions/Handouts: How to Stop Smoking (DC), Syncope (DC) Activity/Diet/Wound Care/Special Instructions: per DR Alicea and [facility] NO DRIVING for 6 months DUE TO SYNCOPE
== END 2017-08-01 16:07 | disposition home or self-care (01) ==
LOC: EC 11:32 → 6SEL 16:12
PROVIDERS: ADMIT Family Medicine; ATTEND Family Medicine
DX: R55 Syncope and collapse (principal); R42 Dizziness and giddiness; R00.2 Palpitations; M54.2 Cervicalgia; M25.512 Pain in left shoulder; J44.9 Chronic obstructive pulmonary disease, unspecified; K21.9 Gastro-esophageal reflux disease without esophagitis; I10 Essential (primary) hypertension; G89.29 Other chronic pain; M54.9 Dorsalgia, unspecified; F17.200 Nicotine dependence, unspecified, uncomplicated; F90.9 Attention-deficit hyperactivity disorder, unspecified type; F41.9 Anxiety disorder, unspecified; F40.240 Claustrophobia; Z98.1 Arthrodesis status; Z88.8 Allergy status to other drugs, medicaments and biological substances; Z88.6 Allergy status to analgesic agent; Z88.5 Allergy status to narcotic agent; Z91.013 Allergy to seafood; Z79.899 Other long term (current) drug therapy; Z80.1 Family history of malignant neoplasm of trachea, bronchus and lung; Z82.49 Family history of ischemic heart disease and other diseases of the circulatory system; Z87.01 Personal history of pneumonia (recurrent); Z87.442 Personal history of urinary calculi; M51.36 Other intervertebral disc degeneration, lumbar region; G47.00 Insomnia, unspecified; B02.9 Zoster without complications; Z86.14 Personal history of Methicillin resistant Staphylococcus aureus infection; Z86.73 Personal history of transient ischemic attack (TIA), and cerebral infarction without residual deficits
CPT/HCPCS: 36415; 70450; 71046; 72125; 80053; 80061; 81001; 82550; 82553; 83735; 84100; 84484; 85025; 85610; 85730; 93005; 93880; 95819; 96361; 96365; 96366; 96375; 96376; 99285

== ENCOUNTER 2017-08-01 22:55 | Emergency (ER) | payer OTHER ==
[2017-08-01] MEDS ORDERED: ACETAMINOPHEN IV (For NPO) 1,000 MG in EMPTY BAG 1 BAG IVPB STA (23:18)
[2017-08-01 23:30] LABS: Appearance,Urine Clear (Clear); Bacteria,Urine Occasional /hpf; Basophils % (A) 0 %; Bilirubin,Urine Negative (Negative); Blood,Urine Small (Negative); Color,Urine Colorless; Eosinophils # (A) 0.3 k/uL (0-0.7); Eosinophils % (A) 3 %; Glucose,Urine (UA) Negative (Negative); HCT 35.7 % (34.0-46.0); HGB 11.9 gm/dL (11.4-16.0); Ketones,Urine Negative (Negative); Leukocyte Esterase,Urine Negative (Negative); Lymphocytes # (A) 0.9 k/uL (1.0-4.8); Lymphocytes % (A) 9 %; MCH 31.6 pg (25.0-35.0); MCHC 33.4 g/dL (31.0-37.0); MCV 94.5 fL (80.0-100.0); Mean Platelet Volume 7.4; Monocytes # (A) 0.6 k/uL (0-1.0); Monocytes % (A) 6 %; Neutrophils # (A) 7.9 k/uL (1.3-7.7); Neutrophils % (A) 80 %; Nitrite,Urine Negative (Negative); Platelet Count 270 k/uL (150-450); Protein,Urine Negative (Negative); RBC 3.78 m/uL (3.80-5.40); RBC,Urine 1 /hpf (0-5); RDW 13.8 % (11.5-15.5); Specific Gravity,Urine 1.002 (1.001-1.035); Squamous Epithelial Cell,Urine 3 /hpf (0-4); Urobilinogen,Urine <2.0 mg/dL (<2.0); WBC 9.9 k/uL (3.8-10.6); WBC,Urine 2 /hpf (0-5)
[2017-08-01 23:39] LABS: Anion Gap 8 mmol/L; Blood Urea Nitrogen 4 mg/dL (7-17); Calcium 8.5 mg/dL (8.4-10.2); Carbon Dioxide 24 mmol/L (22-30); Chloride 109 mmol/L (98-107); Glucose 97 mg/dL (74-99); Sodium 141 mmol/L (137-145)
--- NOTE | 2017-08-01 23:40 | ED ---
General Adult HPI - General Chief complaint: Abdominal Pain Stated complaint: abd pain Time Seen by Provider: 08/01/17 23:13 Source: patient, EMS Mode of arrival: EMS Limitations: no limitations - History of Present Illness Initial comments: Patient is a 47-year-old female presents with a chief complaint of acute onset lower back pain, hematuria, and dysuria. The patient was discharged from the hospital after evaluation for syncope at 4:00 earlier today. The patient returns because of the acute onset of pain. Patient states that it is a sharp pain along her lower back on both sides. She states she also has some dysuria and that she has been going more frequently. She cannot identify any inciting incidences. There are no aggravating or alleviating factors. Timing is constant. Patient doesn't a history of kidney stones. Patient's discharge summary was reviewed from earlier today. The patient was complaining of back and neck pain throughout her stay in the hospital was being treated with Dilaudid. MAST was reviewed, the patient recently filled oxycodone 10 mg, received 90 tablets on 07/13/2017. - Related Data Home Medications Medication Instructions Recorded Confirmed clonazePAM [KlonoPIN] 0.5 mg PO BID 02/24/17 08/01/17 Vitamin B Complex 1 cap PO DAILY 06/07/17 08/01/17 Cholecalciferol [Vitamin D3] 1,000 unit PO DAILY 06/10/17 08/01/17 Dextroamphetamine/Amphetamine 30 mg PO DAILY 07/30/17 08/01/17 [Adderall] Doxepin HCl 50 mg PO HS 07/30/17 08/01/17 Ibuprofen [Motrin] 800 mg PO TID PRN 07/30/17 08/01/17 Omeprazole 20 mg PO BID 07/30/17 08/01/17 Previous Rx's Medication Instructions Recorded Gabapentin [Neurontin] 400 mg PO TID #90 cap 06/15/17 oxyCODONE-APAP 7.5-325MG [Percocet 1 tab PO TID PRN #90 tab 06/15/17 7.5-325 mg] Morphine Sulfate 15 mg PO Q4H PRN #40 tablet 08/01/17 Allergies Allergy/AdvReac Type Severity Reaction Status Date / Time ibuprofen Allergy Rash/Hives Verified 08/01/17 23:26 ketorolac [From Toradol] Allergy Unknown Verified 08/01/17 23:26 morphine Allergy Swelling Verified 08/01/17 23:26 shellfish derived Allergy Anaphylaxis Verified 08/01/17 23:26 tramadol [From Ultram] Allergy Rash/Hives Verified 08/01/17 23:26 Review of Systems ROS Statement: Those systems with pertinent positive or pertinent negative responses have been documented in the HPI. ROS Other: All systems not noted in ROS Statement are negative. Genitourinary: Reports: urgency, dysuria Musculoskeletal: Reports: back pain Past Medical History Past Medical History: Asthma, CVA/TIA, GERD/Reflux, Hypertension, Pneumonia Additional Past Medical History / Comment(s): COPD, chronic back pain, lumbar degenerative disc disease, insomnia, shingles, hiatal hernia, kidney stones. TIA ,"IF I TURN MY HEAD TO THE LEFT I GET DIZZY LIKE I'M SPINNING' History of Any Multi-Drug Resistant Organisms: MRSA Date of last positivie culture/infection: 09/22/2009 MDRO Source:: neck Past Surgical History: Appendectomy, Back Surgery, Section, Cholecystectomy, Hernia Repair Additional Past Surgical History / Comment(s): Cervical spine fusion with insertion of a metal plate, EGD, colonoscopy, hiatal hernia, lumbar rhizotomy and radiofrequency ablation., Appendectomy, , cholecystectomy, hernia repair,6 teeth removed due to abcess, recently had some teeth pulled. Past Anesthesia/Blood Transfusion Reactions: No Reported Reaction Additional Past Anesthesia/Blood Transfusion Reaction / Comment(s): CLAUSTROPHOBIA Past Psychological History: ADD/ADHD, Anxiety Smoking Status: Former smoker Past Alcohol Use History: None Reported Past Drug Use History: None Reported - Past Family History Father Family Medical History: Cancer Additional Family Medical History / Comment(s): Father at age 48 from lung cancer. Mother Family Medical History: Congestive Heart Failure (CHF), CVA/TIA Additional Family Medical History / Comment(s): Mother is alive at age 68. She has suffered from a CVA and has chronic back problems. Patient has 2 brothers and 4 sisters with no major medical problems. General Exam Limitations: no limitations General appearance: alert, in no apparent distress Head exam: Present: atraumatic, normocephalic ENT exam: Present: mucous membranes moist Neck exam: Present: normal inspection Respiratory exam: Present: normal lung sounds bilaterally Cardiovascular Exam: Present: regular rate, normal rhythm GI/Abdominal exam: Present: soft, tenderness (Tenderness to palpation of the suprapubic region). Absent: distended Extremities exam: Present: normal inspection Back exam: Present: paraspinal tenderness Neurological exam: Present: alert, oriented X3 Psychiatric exam: Present: normal affect, normal mood Skin exam: Present: warm, dry, intact Course Vital Signs 08/01/17 23:02 Temperature 98.2 F Pulse Rate 123 H Respiratory 20 Rate Blood Pressure 139/91 O2 Sat by Pulse 97 Oximetry Medical Decision Making - Medical Decision Making Patient presents with a chief complaint of lower back pain and dysuria that started about an hour and a half after her discharge from the hospital today. I reviewed the patient's discharge summary, the patient is being treated with Dilaudid for back and neck pain while in the hospital. On initial evaluation, vital signs are stable except for the patient is mildly tachycardic. On initial evaluation, the patient is in no acute distress. Basic labs and a urinalysis. The patient complains of hematuria and dysuria, there'll be evaluation for urinary tract infection though thought to be unlikely given the abrupt onset of patient's symptoms. Kidney stones were considered however is unlikely that the patient is having bilateral ureterolithiasis at the same time. Patient was given IV Tylenol as she is ALLERGIC to ibuprofen, ketorolac, morphine, and tramadol. 11:50 PM I was just informed by emergency department staff that the patient states her pain is now moving to the left side. 12:07 AM Lab evaluation this patient is unremarkable. Urinalysis shows 1 RBC in the urine, there is no evidence of infection. At this time, the patient has been medicated with all from out of, renal function is stable, this is likely an exacerbation of patient's chronic back pain. At this time, she is stable for discharge. She was instructed to follow up with primary care, and to take her regularly prescribed pain medications as directed. Patient was instructed to return to the emergency department if her symptoms worsen or change. - Lab Data Result diagrams: 08/01/17 23:01 Lab Results 08/01/17 08/01/17 Range/Units 23:01 23:01 WBC 9.9 (3.8-10.6) k/uL RBC 3.78 L (3.80-5.40) m/uL Hgb 11.9 (11.4-16.0) gm/dL Hct 35.7 (34.0-46.0) % MCV 94.5 (80.0-100.0) fL MCH 31.6 (25.0-35.0) pg MCHC 33.4 (31.0-37.0) g/dL RDW 13.8 (11.5-15.5) % Plt Count 270 (150-450) k/uL Neutrophils % 80 % Lymphocytes % 9 % Monocytes % 6 % Eosinophils % 3 % Basophils % 0 % Neutrophils # 7.9 H (1.3-7.7) k/uL Lymphocytes # 0.9 L (1.0-4.8) k/uL Monocytes # 0.6 (0-1.0) k/uL Eosinophils # 0.3 (0-0.7) k/uL Basophils # 0.0 (0-0.2) k/uL Urine Color Colorless Urine Appearance Clear (Clear) Urine pH 6.0 (5.0-8.0) Ur Specific Wilsey 1.002 (1.001-1.035) Urine Protein Negative (Negative) Urine Glucose (UA) Negative (Negative) Urine Ketones Negative (Negative) Urine Blood Small H (Negative) Urine Nitrite Negative (Negative) Urine Bilirubin Negative (Negative) Urine Urobilinogen <2.0 (<2.0) mg/dL Ur Leukocyte Esterase Negative (Negative) Urine RBC 1 (0-5) /hpf Urine WBC 2 (0-5) /hpf Ur Squamous Epith Cells 3 (0-4) /hpf Urine Bacteria Occasional H (None) /hpf Disposition Clinical Impression: Flank pain, Drug-seeking behavior Disposition: HOME SELF-CARE Condition: Good Referrals: Estelle Butterfield DO [Primary Care Provider] - 1-2 days
[2017-08-01 23:51] LABS: Potassium 3.2 mmol/L (3.5-5.1)
[2017-08-02 00:29] VITALS: BP 117/74; PULSE 112; RESP 18; TEMP 99.5
== END 2017-08-02 00:28 | disposition home or self-care (01) ==
LOC: EC 22:55
DX: R10.9 Unspecified abdominal pain (principal); Z76.5 Malingerer [conscious simulation]; R31.9 Hematuria, unspecified; R30.0 Dysuria; F90.9 Attention-deficit hyperactivity disorder, unspecified type; K21.9 Gastro-esophageal reflux disease without esophagitis; F41.9 Anxiety disorder, unspecified; Z87.442 Personal history of urinary calculi; Z86.14 Personal history of Methicillin resistant Staphylococcus aureus infection; Z90.49 Acquired absence of other specified parts of digestive tract; Z98.890 Other specified postprocedural states; Z87.891 Personal history of nicotine dependence; Z88.6 Allergy status to analgesic agent; Z88.5 Allergy status to narcotic agent; Z91.013 Allergy to seafood; Z79.899 Other long term (current) drug therapy
CPT/HCPCS: 36415; 80048; 85025; 81001; 99284; 96365; J0131

== ENCOUNTER 2017-08-26 08:18 | Observation (INO) | payer OTHER ==
[2017-08-26] MEDS ORDERED: SODIUM CHLORIDE 0.9% 500 ML IV ONE (08:37)
--- NOTE | 2017-08-26 08:42 | ED ---
General Adult HPI - General Chief complaint: Neuro Symptoms/Deficit Stated complaint: Confused Time Seen by Provider: 08/26/17 08:20 Source: patient, family, RN notes reviewed Mode of arrival: wheelchair Limitations: no limitations - History of Present Illness Initial comments: This is a 47-year-old female presents emergency department with past medical history significant for TIAs. Patient comes in today with her daughter and the daughter stating that she was altered mentally. Patient thinks she's at her sister's house when she sat her own home and she is slow to answer questions because she is not sure where she is or what she is doing. Patient has had no visual disturbance or speech disturbance. Patient has had no weakness or numbness. Patient states she does have a headache and some neck pain. Patient denies any chest pain palpitations difficulty breathing or shortness of breath. Patient denies any abdominal pain. Patient denies any recent fever chills or cough. Patient denies any alcohol use. - Related Data Home Medications Medication Instructions Recorded Confirmed clonazePAM [KlonoPIN] 0.5 mg PO BID 02/24/17 08/28/17 Cholecalciferol [Vitamin D3] 1,000 unit PO DAILY 06/10/17 08/28/17 Dextroamphetamine/Amphetamine 30 mg PO DAILY 07/30/17 08/28/17 [Adderall] Doxepin HCl 50 mg PO HS 07/30/17 08/28/17 Omeprazole 20 mg PO BID 07/30/17 08/28/17 Atenolol [Tenormin] 50 mg PO DAILY 08/14/17 08/28/17 Albuterol Inhaler [Ventolin Hfa 2 puff INHALATION RT-Q6H 08/28/17 08/28/17 Inhaler] Dextroamphetamine/Amphetamine 10 mg PO DAILY 08/28/17 08/28/17 [Adderall] Previous Rx's Medication Instructions Recorded Gabapentin [Neurontin] 400 mg PO TID #90 cap 06/15/17 oxyCODONE-APAP 7.5-325MG [Percocet 1 tab PO TID PRN #90 tab 06/15/17 7.5-325 mg] Aspirin 81 mg PO DAILY #30 chew 08/15/17 predniSONE See Taper PO DAILY #6 tab 08/27/17 oxyCODONE-APAP 7.5-325MG [Percocet 1 tab PO Q6HR PRN #10 tab 08/28/17 7.5-325 mg] Allergies Allergy/AdvReac Type Severity Reaction Status Date / Time ibuprofen Allergy Rash/Hives Verified 08/28/17 10:37 ketorolac [From Toradol] Allergy Unknown Verified 08/28/17 10:37 morphine Allergy Swelling Verified 08/28/17 10:37 shellfish derived Allergy Anaphylaxis Verified 08/28/17 10:37 tramadol [From Ultram] Allergy Rash/Hives Verified 08/28/17 10:37 Review of Systems ROS Statement: Those systems with pertinent positive or pertinent negative responses have been documented in the HPI. ROS Other: All systems not noted in ROS Statement are negative. Past Medical History Past Medical History: Asthma, CVA/TIA, GERD/Reflux, Hypertension, Pneumonia Additional Past Medical History / Comment(s): COPD, chronic back pain, lumbar degenerative disc disease, insomnia, shingles, hiatal hernia, kidney stones. TIA ,"IF I TURN MY HEAD TO THE LEFT I GET DIZZY LIKE I'M SPINNING' History of Any Multi-Drug Resistant Organisms: MRSA Date of last positivie culture/infection: 09/22/2009 MDRO Source:: neck Past Surgical History: Appendectomy, Back Surgery, Section, Cholecystectomy, Hernia Repair Additional Past Surgical History / Comment(s): Cervical spine fusion with insertion of a metal plate, EGD, colonoscopy, hiatal hernia, lumbar rhizotomy and radiofrequency ablation., Appendectomy, , cholecystectomy, hernia repair,6 teeth removed due to abcess, early July had some teeth pulled. Past Anesthesia/Blood Transfusion Reactions: No Reported Reaction Additional Past Anesthesia/Blood Transfusion Reaction / Comment(s): CLAUSTROPHOBIA Past Psychological History: ADD/ADHD, Anxiety Smoking Status: Current every day smoker Past Alcohol Use History: None Reported Past Drug Use History: None Reported - Past Family History Father Family Medical History: Cancer Additional Family Medical History / Comment(s): Father at age 48 from lung cancer. Mother Family Medical History: Congestive Heart Failure (CHF), CVA/TIA Additional Family Medical History / Comment(s): Mother is alive at age 68. She has suffered from a CVA and has chronic back problems. Patient has 2 brothers and 4 sisters with no major medical problems. General Exam - General Exam Comments Initial Comments: GENERAL: Patient is well-developed and well-nourished. Patient is nontoxic and well- hydrated and is in mild distress. ENT: Neck is soft and supple. No significant lymphadenopathy is noted. Oropharynx is clear. Moist mucous membranes. Patient's neck is tender bilaterally in the trapezius muscle. Patient states it does hurt to look left or right. EYES: The sclera were anicteric and conjunctiva were pink and moist. Extraocular movements were intact and pupils were equal round and reactive to light. Eyelids were unremarkable. PULMONARY: Unlabored respirations. Good breath sounds bilaterally. No audible rales rhonchi or wheezing was noted. CARDIOVASCULAR: There is a regular rate and rhythm without any murmurs gallops or rubs. ABDOMEN: Soft and nontender with normal bowel sounds. No palpable organomegaly was noted. There is no palpable pulsatile mass. SKIN: Skin is clear with no lesions or rashes and otherwise unremarkable. NEUROLOGIC: Patient is alert and oriented 2. Cranial nerves II through XII are grossly intact. Motor and sensory are also intact. Normal speech, volume and content. Symmetrical smile. MUSCULOSKELETAL: Normal extremities with adequate strength and full range of motion. LYMPHATICS: No significant lymphadenopathy is noted PSYCHIATRIC: Normal psychiatric evaluation. Normal interpersonal interactions appears functionally intact in deals appropriately with others. No signs of depression. No signs of anxiety. Limitations: no limitations Course Vital Signs 08/26/17 08/26/17 08/26/17 08:21 08:56 09:34 Temperature 97 F L Pulse Rate 109 H 111 H 110 H Respiratory 18 20 19 Rate Blood Pressure 141/87 140/95 128/95 O2 Sat by Pulse 100 99 98 Oximetry 08/26/17 08/26/17 08/26/17 09:43 12:02 13:41 Temperature Pulse Rate 107 H 102 H 99 Respiratory 18 18 19 Rate Blood Pressure 127/95 120/87 123/85 O2 Sat by Pulse 98 97 97 Oximetry 08/26/17 14:20 Temperature 98.1 F Pulse Rate 98 Respiratory 18 Rate Blood Pressure 122/82 O2 Sat by Pulse 98 Oximetry Medical Decision Making - Medical Decision Making EKG shows sinus tachycardia at 112 bpm NC interval is 154 QRS is 74 QT interval 332 QTC is 453. Patient's EKG shows some T-wave inversions in V1 and V2 and V3. Also Q waves in leads II, III, and F aVF. These EKG changes were seen on her previous EKG. - Lab Data Result diagrams: 08/26/17 08:46 08/26/17 08:46 Lab Results 08/26/17 08/26/17 08/26/17 Range/Units 08:45 08:46 08:46 WBC 16.6 H (3.8-10.6) k/uL RBC 4.68 (3.80-5.40) m/uL Hgb 14.5 (11.4-16.0) gm/dL Hct 45.2 (34.0-46.0) % MCV 96.6 (80.0-100.0) fL MCH 31.0 (25.0-35.0) pg MCHC 32.1 (31.0-37.0) g/dL RDW 13.8 (11.5-15.5) % Plt Count 436 (150-450) k/uL Neutrophils % 81 % Lymphocytes % 10 % Monocytes % 7 % Eosinophils % 1 % Basophils % 0 % Neutrophils # 13.4 H (1.3-7.7) k/uL Lymphocytes # 1.6 (1.0-4.8) k/uL Monocytes # 1.2 H (0-1.0) k/uL Eosinophils # 0.2 (0-0.7) k/uL Basophils # 0.0 (0-0.2) k/uL PT (9.0-12.0) sec INR (<1.2) APTT (22.0-30.0) sec D-Dimer (<0.60) mg/L FEU Sodium (137-145) mmol/L Potassium (3.5-5.1) mmol/L Chloride (98-107) mmol/L Carbon Dioxide (22-30) mmol/L Anion Gap mmol/L BUN (7-17) mg/dL Creatinine (0.52-1.04) mg/dL Est GFR (MDRD) Af Amer (>60 ml/min/1.73 sqM) Est GFR (MDRD) Non-Af (>60 ml/min/1.73 sqM) Glucose (74-99) mg/dL POC Glucose (mg/dL) 118 H (75-99) mg/dL POC Glu [employer] ID Petitpren, Kim Calcium (8.4-10.2) mg/dL Total Bilirubin (0.2-1.3) mg/dL AST (14-36) U/L ALT (9-52) U/L Alkaline Phosphatase (38-126) U/L Ammonia (<30) umol/L Total Creatine Kinase 36 (30-135) U/L CK-MB (CK-2) 0.5 (0.0-2.4) ng/mL CK-MB (CK-2) Rel Index 1.4 Troponin I <0.012 (0.000-0.034) ng/mL Total Protein (6.3-8.2) g/dL Albumin (3.5-5.0) g/dL Triglycerides (<150) mg/dL Cholesterol (<200) mg/dL LDL Cholesterol, Calc (0-99) mg/dL HDL Cholesterol (40-60) mg/dL Urine Color Urine Appearance (Clear) Urine pH (5.0-8.0) Ur Specific [place] (1.001-1.035) Urine Protein (Negative) Urine Glucose (UA) (Negative) Urine Ketones (Negative) Urine Blood (Negative) Urine Nitrite (Negative) Urine Bilirubin (Negative) Urine Urobilinogen (<2.0) mg/dL Ur Leukocyte Esterase (Negative) Urine RBC (0-5) /hpf Urine WBC (0-5) /hpf Ur Squamous Epith Cells (0-4) /hpf Urine Bacteria (None) /hpf Urine Opiates Screen (NotDetected) Ur Oxycodone Screen (NotDetected) Urine Methadone Screen (NotDetected) Ur Propoxyphene Screen (NotDetected) Ur Barbiturates Screen (NotDetected) U Tricyclic Antidepress (NotDetected) Ur Phencyclidine Scrn (NotDetected) Ur Amphetamines Screen (NotDetected) U Methamphetamines Scrn (NotDetected) U Benzodiazepines Scrn (NotDetected) Urine Cocaine Screen (NotDetected) U Marijuana (THC) Screen (NotDetected) 08/26/17 08/26/17 08/26/17 Range/Units 08:46 08:46 08:46 WBC (3.8-10.6) k/uL RBC (3.80-5.40) m/uL Hgb (11.4-16.0) gm/dL Hct (34.0-46.0) % MCV (80.0-100.0) fL MCH (25.0-35.0) pg MCHC (31.0-37.0) g/dL RDW (11.5-15.5) % Plt Count (150-450) k/uL Neutrophils % % Lymphocytes % % Monocytes % % Eosinophils % % Basophils % % Neutrophils # (1.3-7.7) k/uL Lymphocytes # (1.0-4.8) k/uL Monocytes # (0-1.0) k/uL Eosinophils # (0-0.7) k/uL Basophils # (0-0.2) k/uL PT 9.3 (9.0-12.0) sec INR 0.9 (<1.2) APTT 23.8 (22.0-30.0) sec D-Dimer (<0.60) mg/L FEU Sodium 147 H (137-145) mmol/L Potassium 3.9 (3.5-5.1) mmol/L Chloride 106 (98-107) mmol/L Carbon Dioxide 29 (22-30) mmol/L Anion Gap 12 mmol/L BUN 4 L (7-17) mg/dL Creatinine 0.70 (0.52-1.04) mg/dL Est GFR (MDRD) Af Amer >60 (>60 ml/min/1.73 sqM) Est GFR (MDRD) Non-Af >60 (>60 ml/min/1.73 sqM) Glucose 122 H (74-99) mg/dL POC Glucose (mg/dL) (75-99) mg/dL POC Glu [employer] [place]er ID Calcium 10.7 H (8.4-10.2) mg/dL Total Bilirubin 0.2 (0.2-1.3) mg/dL AST 16 (14-36) U/L ALT 28 (9-52) U/L Alkaline Phosphatase 119 (38-126) U/L Ammonia (<30) umol/L Total Creatine Kinase (30-135) U/L CK-MB (CK-2) (0.0-2.4) ng/mL CK-MB (CK-2) Rel Index Troponin I (0.000-0.034) ng/mL Total Protein 7.3 (6.3-8.2) g/dL Albumin 4.1 (3.5-5.0) g/dL Triglycerides (<150) mg/dL Cholesterol (<200) mg/dL LDL Cholesterol, Calc (0-99) mg/dL HDL Cholesterol (40-60) mg/dL Urine Color Colorless Urine Appearance Clear (Clear) Urine pH 7.0 (5.0-8.0) Ur Specific [place] 1.001 (1.001-1.035) Urine Protein Negative (Negative) Urine Glucose (UA) Negative (Negative) Urine Ketones Negative (Negative) Urine Blood Trace H (Negative) Urine Nitrite Negative (Negative) Urine Bilirubin Negative (Negative) Urine Urobilinogen <2.0 (<2.0) mg/dL Ur Leukocyte Esterase Negative (Negative) Urine RBC 1 (0-5) /hpf Urine WBC 1 (0-5) /hpf Ur Squamous Epith Cells 2 (0-4) /hpf Urine Bacteria Rare H (None) /hpf Urine Opiates Screen Not Detected (NotDetected) Ur Oxycodone Screen Not Detected (NotDetected) Urine Methadone Screen Not Detected (NotDetected) Ur Propoxyphene Screen Not Detected (NotDetected) Ur Barbiturates Screen Not Detected (NotDetected) U Tricyclic Antidepress Detected H (NotDetected) Ur Phencyclidine Scrn Not Detected (NotDetected) Ur Amphetamines Screen Not Detected (NotDetected) U Methamphetamines Scrn Not Detected (NotDetected) U Benzodiazepines Scrn Detected H (NotDetected) Urine Cocaine Screen Not Detected (NotDetected) U Marijuana (THC) Screen Not Detected (NotDetected) 08/26/17 08/26/17 08/26/17 Range/Units 08:46 08:46 08:53 WBC (3.8-10.6) k/uL RBC (3.80-5.40) m/uL Hgb (11.4-16.0) gm/dL Hct (34.0-46.0) % MCV (80.0-100.0) fL MCH (25.0-35.0) pg MCHC (31.0-37.0) g/dL RDW (11.5-15.5) % Plt Count (150-450) k/uL Neutrophils % % Lymphocytes % % Monocytes % % Eosinophils % % Basophils % % Neutrophils # (1.3-7.7) k/uL Lymphocytes # (1.0-4.8) k/uL Monocytes # (0-1.0) k/uL Eosinophils # (0-0.7) k/uL Basophils # (0-0.2) k/uL PT (9.0-12.0) sec INR (<1.2) APTT (22.0-30.0) sec D-Dimer 0.46 (<0.60) mg/L FEU Sodium (137-145) mmol/L Potassium (3.5-5.1) mmol/L Chloride (98-107) mmol/L Carbon Dioxide (22-30) mmol/L Anion Gap mmol/L BUN (7-17) mg/dL Creatinine (0.52-1.04) mg/dL Est GFR (MDRD) Af Amer (>60 ml/min/1.73 sqM) Est GFR (MDRD) Non-Af (>60 ml/min/1.73 sqM) Glucose (74-99) mg/dL POC Glucose (mg/dL) (75-99) mg/dL POC Glu [employer] [place]er ID Calcium (8.4-10.2) mg/dL Total Bilirubin (0.2-1.3) mg/dL AST (14-36) U/L ALT (9-52) U/L Alkaline Phosphatase (38-126) U/L Ammonia <9 (<30) umol/L Total Creatine Kinase (30-135) U/L CK-MB (CK-2) (0.0-2.4) ng/mL CK-MB (CK-2) Rel Index Troponin I (0.000-0.034) ng/mL Total Protein (6.3-8.2) g/dL Albumin (3.5-5.0) g/dL Triglycerides 243 H (<150) mg/dL Cholesterol 263 H (<200) mg/dL LDL Cholesterol, Calc 155 H (0-99) mg/dL HDL Cholesterol 59 (40-60) mg/dL Urine Color Urine Appearance (Clear) Urine pH (5.0-8.0) Ur Specific [place] (1.001-1.035) Urine Protein (Negative) Urine Glucose (UA) (Negative) Urine Ketones (Negative) Urine Blood (Negative) Urine Nitrite (Negative) Urine Bilirubin (Negative) Urine Urobilinogen (<2.0) mg/dL Ur Leukocyte Esterase (Negative) Urine RBC (0-5) /hpf Urine WBC (0-5) /hpf Ur Squamous Epith Cells (0-4) /hpf Urine Bacteria (None) /hpf Urine Opiates Screen (NotDetected) Ur Oxycodone Screen (NotDetected) Urine Methadone Screen (NotDetected) Ur Propoxyphene Screen (NotDetected) Ur Barbiturates Screen (NotDetected) U Tricyclic Antidepress (NotDetected) Ur Phencyclidine Scrn (NotDetected) Ur Amphetamines Screen (NotDetected) U Methamphetamines Scrn (NotDetected) U Benzodiazepines Scrn (NotDetected) Urine Cocaine Screen (NotDetected) U Marijuana (THC) Screen (NotDetected) Disposition Clinical Impression: Cerebrovascular accident Disposition: ADMITTED IP TO THIS [facility] Condition: Stable
[2017-08-26 08:48] LABS: Glucose,Whole Blood 118 mg/dL (75-99)
[2017-08-26 09:19] LABS: Basophils % (A) 0 %; Eosinophils # (A) 0.2 k/uL (0-0.7); Eosinophils % (A) 1 %; HCT 45.2 % (34.0-46.0); HGB 14.5 gm/dL (11.4-16.0); Lymphocytes # (A) 1.6 k/uL (1.0-4.8); Lymphocytes % (A) 10 %; MCHC 32.1 g/dL (31.0-37.0); MCV 96.6 fL (80.0-100.0); Mean Platelet Volume 6.9; Monocytes # (A) 1.2 k/uL (0-1.0); Monocytes % (A) 7 %; Neutrophils # (A) 13.4 k/uL (1.3-7.7); Neutrophils % (A) 81 %; Platelet Count 436 k/uL (150-450); RBC 4.68 m/uL (3.80-5.40); RDW 13.8 % (11.5-15.5); WBC 16.6 k/uL (3.8-10.6)
[2017-08-26 09:20] LABS: Appearance,Urine Clear (Clear); Bacteria,Urine Rare /hpf; Bilirubin,Urine Negative (Negative); Blood,Urine Trace (Negative); Color,Urine Colorless; Glucose,Urine (UA) Negative (Negative); Ketones,Urine Negative (Negative); Leukocyte Esterase,Urine Negative (Negative); Nitrite,Urine Negative (Negative); Protein,Urine Negative (Negative); RBC,Urine 1 /hpf (0-5); Specific Gravity,Urine 1.001 (1.001-1.035); Squamous Epithelial Cell,Urine 2 /hpf (0-4); Urobilinogen,Urine <2.0 mg/dL (<2.0); WBC,Urine 1 /hpf (0-5)
[2017-08-26 09:25] LABS: INR 0.9 (<1.2); Partial Thromboplastin Time 23.8 sec (22.0-30.0); Prothrombin Time 9.3 sec (9.0-12.0)
[2017-08-26 09:26] LABS: Amphetamine Screen,Urine Not Detected (NotDetected); Barbiturate Screen,Urine Not Detected (NotDetected); Benzodiazepines Screen,Urine Detected (NotDetected); Cocaine Screen,Urine Not Detected (NotDetected); Methadone Screen, Urine Not Detected (NotDetected); Opiate Screen,Urine Not Detected (NotDetected); Oxycodone Screen, Urine Not Detected (NotDetected); Phencyclidine Screen,Urine Not Detected (NotDetected); Tricyclic Antidepressant,Urine Detected (NotDetected); Urn Cannabinoid Scrn Not Detected (NotDetected)
--- NOTE | 2017-08-26 09:26 | CT ---
EXAMINATION TYPE: CT brain wo con DATE OF EXAM: 08/26/2017 COMPARISON: 08/14/2017 HISTORY: 47-year-old female Confusion TECHNIQUE: Examination was done in axial plane without intravenous contrast. Coronal and sagittal r econstructions performed. CT DLP: 857.7 mGycm Automated exposure control for dose reduction was used. FINDINGS: There is no evidence of acute intracranial hemorrhage, acute ischemic changes, mass, mass-effect, or extra-axial fluid collection. There is no effacement of cerebral sulci or basal subarachnoid cister ns. There is no hydrocephalus. There is no midline shift. Amor-white matter distinction is preserv ed. Incidental partially empty sella. Mild to moderate residual mucosal thickening visualized left maxillary sinus, improved from 08/14/2017 . Mild mucosal thickening left sphenoid sinus and improving opacification posterior left ethmoid air cells as well. Mastoid air cells well pneumatized. Patient's gaze is divergent suggesting underlying strabismus. IMPRESSION: 1. No acute intracranial abnormality seen. 2. Mild paranasal sinus disease, improving from 08/14/2017.
--- NOTE | 2017-08-26 09:29 | XR ---
EXAMINATION TYPE: XR chest 2V DATE OF EXAM: 08/26/2017 COMPARISON: 08/14/2017 HISTORY: Confusion and vomiting for one week TECHNIQUE: Frontal and lateral views of the chest are obtained. FINDINGS: There is no focal air space opacity, pleural effusion, or pneumothorax seen. The cardiac silhouette size is within normal limits. The osseous structures are intact. The hazy density of the left lung on the frontal view only overlying the cardiac apex again likely relates to prominent epic ardial fat pad is no corresponding abnormality seen on the lateral image and this is unchanged from t he prior. Cholecystectomy clips are noted within the right upper quadrant. Cervical surgical fusion d evice is also seen. IMPRESSION: No acute cardiopulmonary process.
[2017-08-26 09:31] LABS: ALT 28 U/L (9-52); AST 16 U/L (14-36); Albumin 4.1 g/dL (3.5-5.0); Alkaline Phosphatase 119 U/L (38-126); Anion Gap 12 mmol/L; Blood Urea Nitrogen 4 mg/dL (7-17); Calcium 10.7 mg/dL (8.4-10.2); Carbon Dioxide 29 mmol/L (22-30); Chloride 106 mmol/L (98-107); Glucose 122 mg/dL (74-99); Potassium 3.9 mmol/L (3.5-5.1); Sodium 147 mmol/L (137-145); Total Bilirubin 0.2 mg/dL (0.2-1.3); Total Protein 7.3 g/dL (6.3-8.2)
[2017-08-26] MEDS ORDERED: HYDROmorphone 0.5 MG/0.5 ML SYRINGE IVP STA (09:35)
[2017-08-26] MEDS ORDERED: ONDANSETRON 4 MG/2 ML VIAL IVP STA (09:35)
[2017-08-26 09:58] LABS: Creatine Kinase 36 U/L (30-135)
[2017-08-26 10:10] LABS: Creatine Kinase MB 0.5 ng/mL (0.0-2.4); Troponin I <0.012 ng/mL (0.000-0.034)
[2017-08-26] MEDS ORDERED: HYDROmorphone 2 MG/ML 1 ML SYRINGE IVP STA (11:09)
[2017-08-26] MEDS ORDERED: LORazepam 2 MG/ML INJ IV STA (11:55)
[2017-08-26] MEDS ORDERED: ACETAMINOPHEN TAB 325 MG TAB PO STA (13:57)
[2017-08-26] MEDS ORDERED: ACETAMINOPHEN TAB 325 MG TAB PO PRN (14:14)
[2017-08-26] MEDS: oxyCODONE-APAP 7.5-325MG 1 EACH TAB PO PRN ×2 (15:03→22:59)
[2017-08-26] MEDS ORDERED: oxyCODONE-APAP 7.5-325MG 1 EACH TAB PO PRN (15:04)
[2017-08-26] MEDS: ASPIRIN 81 MG PO SCH (15:55)
[2017-08-26] MEDS: ATENOLOL 50 MG TAB PO SCH (15:55)
[2017-08-26] MEDS: PANTOPRAZOLE 40 MG TABLET PO SCH (15:59)
[2017-08-26] MEDS: GABAPENTIN 400 MG CAP PO SCH ×2 (15:59→21:37)
[2017-08-26] MEDS: CHOLECALCIFEROL 1,000 UNIT TAB PO SCH (16:00)
--- NOTE | 2017-08-26 18:28 | P.CNNES ---
History of Present Illness Consult date: 08/26/17 History of Present Illness: The patient is a 47-year-old right-handed white female presents to the hospital with the confusion. She states she woke up with slurred speech and confusion. She kept asking her daughter the same questions this morning. She states she's been having a headache for 5 days mostly in the occiput with tenderness. She has chronic neck problems. This morning she also vomited. She states she's been in the hospital twice this month for confusion. She states that those occasions she also had a headache. She was hospitalized also in May for headache neck pain and TIA workup was done for unilateral numbness and weakness. Her stroke workup was negative. The patient reports that her symptoms of slurred speech lasted up until 10 minutes ago. Presently she is sitting in bed eating and appropriate. There is no evidence of altered mental status. She had a CT of the brain in the emergency room which did not show any acute findings. There was some mild paranasal sinus disease. She's had MRI of the brain in the past which showed some nonspecific white matter changes. The patient has multiple medical problems including chronic neck pain anxiety ADD hypertension TIA asthma chronic back pain and vertigo Review of Systems Constitutional: Denies chills, Denies fever Eyes: denies blurred vision, denies pain Ears, nose, mouth and throat: Denies headache, Denies sore throat Cardiovascular: Denies chest pain, Denies shortness of breath Respiratory: Denies cough Neurological: Denies numbness, Denies weakness Psychiatric: Denies anxiety, Denies depression Past Medical History Past Medical History: Asthma, COPD, CVA/TIA, GERD/Reflux, Hypertension, Pneumonia Additional Past Medical History / Comment(s): Pt recently admitted to [facility] on with altered mental status multifactoral. Other hx: chronic back pain , lumbar degenerative disc disease, insomnia, shingles, hiatal hernia, kidney stones. TIA,"IF I TURN MY HEAD TO THE LEFT I GET DIZZY LIKE I'M SPINNING' History of Any Multi-Drug Resistant Organisms: MRSA Date of last positivie culture/infection: 09/22/2009 MDRO Source:: neck Past Surgical History: Appendectomy, Back Surgery, Section, Cholecystectomy, Hernia Repair Additional Past Surgical History / Comment(s): Cervical spine fusion with insertion of a metal plate, EGD, colonoscopy, hiatal hernia, lumbar rhizotomy and radiofrequency ablation,6 teeth removed due to abcess, early July had some teeth pulled. Past Anesthesia/Blood Transfusion Reactions: No Reported Reaction Additional Past Anesthesia/Blood Transfusion Reaction / Comment(s): CLAUSTROPHOBIA Smoking Status: Current every day smoker - Past Family History Father Family Medical History: Cancer Additional Family Medical History / Comment(s): Father at age 48 from lung cancer. Mother Family Medical History: Congestive Heart Failure (CHF), CVA/TIA Additional Family Medical History / Comment(s): Mother from CHF at the age of 78yrs. She had suffered from a CVA and had chronic back problems. Patient has 2 brothers and 4 sisters with no major medical problems. Medications and Allergies Home Medications Medication Instructions Recorded Confirmed Type clonazePAM [KlonoPIN] 0.5 mg PO BID 02/24/17 08/26/17 History Cholecalciferol [Vitamin D3] 1,000 unit PO DAILY 06/10/17 08/26/17 History Gabapentin [Neurontin] 400 mg PO TID #90 cap 06/15/17 08/26/17 Rx oxyCODONE-APAP 7.5-325MG [Percocet 1 tab PO TID PRN #90 tab 06/15/17 08/26/17 Rx 7.5-325 mg] Dextroamphetamine/Amphetamine 30 mg PO DAILY 07/30/17 08/26/17 History [Adderall] Doxepin HCl 50 mg PO HS 07/30/17 08/26/17 History Omeprazole 20 mg PO BID 07/30/17 08/26/17 History Atenolol [Tenormin] 50 mg PO DAILY 08/14/17 08/26/17 History Albuterol Inhaler [Ventolin Hfa 2 puff INHALATION Q6HR #1 inhaler 08/15/1708/26 Rx Inhaler] Aspirin 81 mg PO DAILY #30 chew 08/15/17 08/26/17 Rx Allergies Allergy/AdvReac Type Severity Reaction Status Date / Time ibuprofen Allergy Rash/Hives Verified 08/26/17 09:01 ketorolac [From Toradol] Allergy Unknown Verified 08/26/17 09:01 morphine Allergy Swelling Verified 08/26/17 09:01 shellfish derived Allergy Anaphylaxis Verified 02/01/18 09:01 tramadol [From Ultram] Allergy Rash/Hives Verified 08/26/17 09:01 Physical Examination - Vital Signs Vital Signs: Vital Signs Temp Pulse Pulse Resp BP BP Pulse Ox 08/26/17 16:23 98.0 F 100 16 127/81 97 08/26/17 16:00 98.0 F 100 16 127/81 97 08/26/17 14:20 98.1 F 98 18 122/82 98 08/26/17 13:41 99 19 123/85 97 08/26/17 12:02 102 H 18 120/87 97 08/26/17 09:43 107 H 18 127/95 98 08/26/17 09:34 110 H 19 128/95 98 08/26/17 08:56 111 H 20 140/95 99 08/26/17 08:21 97 F L 109 H 18 141/87 100 Intake and Output 08/26/17 08/26/17 08/26/17 06:59 14:59 22:59 Intake Total 0 240 Balance 0 240 Intake: Intake, IV Titration 0 Amount Sodium Chloride 0.9% 500 0 ml @ 999 mls/hr IV .Q31M ONE Rx#:[id number] Oral 240 Other: Weight 64.41 kg Patient Weight 08/27/17 06:59 Weight 64.41 kg - Constitutional General appearance: average body habitus - EENT EENT: PERRL, hearing intact, vision intact - Respiratory Respiratory: lungs clear - Cardiovascular Cardiovascular: regular rate, normal S1, normal S2 - Integumentary Integumentary: normal - Neurologic Mental status she was awake alert and oriented to time [facility]. She was able to do simple calculations there is no a aphasia or dysarthria Cranial nerve examination: PERRL, EOMI, VFF, face symmetric, tongue midline Speech examination: intact Detailed motor examination: grossly full strength in all extremities Detailed sensory examination: intact Reflex and gait examination: intact - Psychiatric Psychiatric: mood/affect appropriate Results - Laboratory Findings CBC and BMP: 08/26/17 08:46 08/26/17 08:46 Abnormal Lab Findings: Abnormal Labs 08/26/17 08/26/17 08/26/17 08:45 08:46 08:46 WBC 16.6 H Neutrophils # 13.4 H Monocytes # 1.2 H Sodium 147 H BUN 4 L Glucose 122 H POC Glucose (mg/dL) 118 H Calcium 10.7 H Urine Blood Urine Bacteria U Tricyclic Antidepress U Benzodiazepines Scrn 08/26/17 08:46 WBC Neutrophils # Monocytes # Sodium BUN Glucose POC Glucose (mg/dL) Calcium Urine Blood Trace H Urine Bacteria Rare H U Tricyclic Antidepress Detected H U Benzodiazepines Scrn Detected H Assessment and Plan (1) Bilateral occipital neuralgia Current Visit: Yes Status: Acute SNOMED Code(s): 44420901 (2) Headache Current Visit: No Status: Acute SNOMED Code(s): 90657354 (3) Confusion Current Visit: Yes Status: Acute SNOMED Code(s): 843818688 Plan: The patient is a 47-year-old woman with episodic confusion headache who presents to the hospital today with altered mental status. Currently her mental status is improved to baseline. Recommend further evaluation with spinal tap to rule out underlying infection due to history of neck pain headache and elevated white cell count with confusion She has had an MRI in the past which showed some nonspecific white matter demyelination and we will send spinal fluid out to rule out MS as well. Patient has bilateral occipital notch tenderness. Recommend bilateral occipital nerve blocks for management of her headache.
[2017-08-26] MEDS: ALBUTEROL NEBULIZED 2.5 MG/3 ML INHALATION SCH (20:29)
[2017-08-26] MEDS ORDERED: DOXEPIN 25 MG CAP PO SCH (21:00)
[2017-08-26] MEDS: clonazePAM 0.5 MG TAB PO SCH (21:37)
[2017-08-26] MEDS ORDERED: methylPREDNISolone SOD SUCCI 125 MG/2 ML VIAL IV STA (23:19)
[2017-08-26 23:28] LABS: Cholesterol 263 mg/dL (<200); HDL Cholesterol 59 mg/dL (40-60); LDL Cholesterol,Calculated 155 mg/dL (0-99); Triglycerides 243 mg/dL (<150)
[2017-08-27] MEDS: ALBUTEROL NEBULIZED 2.5 MG/3 ML INHALATION SCH ×3 (03:35→16:12)
--- NOTE | 2017-08-27 05:11 | HP ---
HISTORY AND PHYSICAL DATE OF ADMISSION: 08/26/2017 PRESENTING COMPLAINT: Headache. HISTORY OF PRESENTING COMPLAINT: This is a 47-year-old patient of Dr. Butterfield. Chronic stable medical conditions include GERD, hypertension, COPD, hiatal hernia, anxiety, insomnia. The patient for one week is having headache, more so at the back of the head, more so near the nuchal line sometimes going in the front. Occasional nausea. No photophobia. Decreased appetite, but the patient to eat for last 1 week. The patient has had surgery in the neck back in 2005 at [facility]. The patient does take [place] at home. The patient is followed by Dr. Daugherty. The patient is felt to be a little bit confused, hence, she was . Patient is not sure she had any fevers. The patient already was seen by Neurology, Dr. Alicea, who ordered lumbar puncture. REVIEW OF SYSTEMS: CONSTITUTIONAL: Tired, questionable fever. HEENT: As above. RESPIRATORY: Occasional wheezing, cough. CARDIOVASCULAR: None. GASTROINTESTINAL: None. GENITOURINARY: None. MUSCULOSKELETAL: Chronic neck pain. DERMATOLOGICAL: None. HEMATOLOGIC: None. LYMPHATIC: None. PSYCHIATRY: Anxiety. NEUROLOGICAL: None. PAST HISTORY: GERD, hypertension, COPD, hiatal hernia, anxiety, insomnia, chronic neck pain. PAST SURGICAL HISTORY: Appendectomy, back surgery, , cholecystectomy, hernia repair, cervical spine fusion with insertion of metal plate, EGD, colonoscopy, lumbar rhizotomy, radiofrequency ablation, 6 teeth removed due to abscess. PSYCH HISTORY: ADD, anxiety. SOCIAL HISTORY: The patient lives with [place] her significant other for the last 24 years. Smoking 1.5 packs per day for the 25 years now down to about 7 to 10 cigarettes a day. No alcohol. FAMILY HISTORY: Father of lung cancer at age of 48. HOME MEDICATIONS: 1. Percocet 7.5 t.i.d. p.r.n. 2. Klonopin 0.5 p.o. . 3. Omeprazole 20 mg p.o. b.i.d. 4. Neurontin 400 mg p.o. t.i.d. 5. Doxepin 50 mg q.h.s. 6. Adderall 30 mg p.o. daily. 7. Vitamin D3, 1000 units p.o. daily. 8. Tenormin 50 mg p.o. daily. 9. Aspirin 81 mg p.o. daily. 10.Ventolin HFA 2 puffs q.6. ALLERGIES: Allergies to IBUPROFEN, KETOROLAC, MORPHINE, SHELLFISH, TRAMADOL. PHYSICAL EXAMINATION: On examination, temperature 98, pulse 100, respirations 16, blood pressure 127/81, pulse ox 97% on room air. GENERAL APPEARANCE:: Lying in bed. EYES: Pupils equal. Conjunctivae normal. HEENT: Oral cavity normal. NECK: JVD not raised. Mass not palpable. RESPIRATORY: Effort normal. LUNGS: Slightly decreased breath sounds. CARDIOVASCULAR: First and second sounds normal. No edema. ABDOMEN: Soft, nontender. Liver and spleen not palpable. LYMPHATIC: No lymph node palpable in the neck or axillae. PSYCHIATRY: Alert and oriented x3. Mood and affect very anxious-appearing. NEUROLOGICAL: Pupils equal. Cranial nerves grossly intact. Power and sensation grossly intact. The patient's neck otherwise is supple. INVESTIGATIONS: White count 16.6, hemoglobin 14.5. Potassium 3.9. BUN 4, creatinine 0.70. Urine drug screen positive for TCAs and benzodiazepines. ASSESSMENT: 1. Headache, present for a week, no temperature recorded here. Seen by Dr. Asha Alicea who has ordered a lumbar puncture. The patient does seem to be very tender in the nuchal area and this is probably could be occipital neuritis. 2. Chronic obstructive pulmonary disease in a current smoker. 3. Hiatal hernia. 4. Anxiety, depression, not otherwise specified. 5. Essential hypertension. 6. Gastroesophageal reflux disease. 7. Chronic insomnia. 8. Chronic back pain for which patient is on Percocet as per pain specialist Dr. Taegan Ruiz. PLAN: Neurology Dr. Alicea was consulted. Will follow with her. In the meantime, we will give the patient one dose of IV Solu-Medrol and switch to p.o. prednisone for occipital neuritis. Other home medications have been resumed. Care was discussed with the patient in detail. Patient also was given a nicotine patch and counseled against smoking. MMODL / IJN: [id number] /
[2017-08-27] MEDS: PANTOPRAZOLE 40 MG TABLET PO SCH ×2 (05:34→15:25)
[2017-08-27] MEDS: oxyCODONE-APAP 7.5-325MG 1 EACH TAB PO PRN ×2 (07:34→15:24)
[2017-08-27] MEDS: ATENOLOL 50 MG TAB PO SCH (07:41)
[2017-08-27] MEDS: ASPIRIN 81 MG PO SCH (07:41)
[2017-08-27] MEDS: clonazePAM 0.5 MG TAB PO SCH (07:41)
[2017-08-27] MEDS: GABAPENTIN 400 MG CAP PO SCH ×2 (07:41→15:25)
[2017-08-27] MEDS ORDERED: predniSONE 20 MG TAB PO SCH (09:00)
[2017-08-27] MEDS ORDERED: NON-FORMULARY DRUG (Dextroamphetamine/Amphetamine [Adderall] 30 MG) PO SCH (09:00)
[2017-08-27 10:09] VITALS: RESP 16
[2017-08-27] MEDS: CHOLECALCIFEROL 1,000 UNIT TAB PO SCH (10:16)
[2017-08-27 10:21] VITALS: BMI 30.7
[2017-08-27] MEDS ORDERED: LACTATED RINGERS 1,000 ML IV ONE ×2 (11:18)
[2017-08-27] MEDS ORDERED: MIDAZOLAM 2 MG/2 ML VIAL IVP ONE ×2 (11:35→11:45)
[2017-08-27] MEDS ORDERED: fentaNYL (PF) 50 MCG/ML 2 ML AMP IVP ONE ×2 (11:35→11:45)
[2017-08-27 13:00] LABS: Glucose,CSF 112 mg/dL (40-70); Total Protein,CSF 25 mg/dL (12-60)
[2017-08-27 14:29] LABS: Appearance,CSF Clear; CSF Tube Number 4
[2017-08-27 14:30] LABS: Nucleated Cells, CSF 1 u/L (0-5); Red Blood Cell,CSF 0 u/L (0-10)
--- NOTE | 2017-08-27 15:26 | P.PN ---
Subjective Progress Note Date: 08/27/17 The patient is a 47-year-old woman who presented to the hospital yesterday with altered mental status. Today she is alert and oriented 3. Her speech is fluent. She complains that she is not getting enough medication for pain. She requests Dilaudid for her headache. She reports the spinal tap went smoothly and there is no change in her headache pattern. She had a spinal tap today and results are so far negative. It was also requested that she have occipital nerve block for the headache which is felt to be occipital neuralgia. She was advised that pain management will see her about the nerve blocks which should be more efficacious in treating her headache. Also they will manage any further pain management medication for her. Objective - Vital Signs Vital signs: Vital Signs Temp 98.0 F 08/27/17 12:00 Pulse 73 08/27/17 12:05 Resp 16 08/27/17 12:05 BP 110/61 08/27/17 12:05 Pulse Ox 95 08/27/17 12:05 Intake & Output 08/26/17 08/27/17 08/27/17 18:59 06:59 18:59 Intake Total 240 740 Output Total 180 Balance 240 -180 740 Weight 64.41 kg 73.6 kg 73.6 kg Intake: IV 500 Intake, IV Titration 0 Amount Sodium Chloride 0.9% 500 0 ml @ 999 mls/hr IV .Q31M ONE Rx#:[id number] Oral 240 240 Output: Urine 180 Other: # Voids 1 3 - Constitutional General appearance: Present: obese - EENT Eyes: Present: PERRLA - Neurologic Neurologic Comment(s): Awake alert oriented 3 speech fluent no aphasia and no dysarthria Neurologic: Present: CNII-XII intact - Musculoskeletal Musculoskeletal: Present: strength equal bilaterally - Psychiatric Psychiatric: Present: A&O x's 3, appropriate affect - Labs CBC & Chem 7: 08/26/17 08:46 08/26/17 08:46 Labs: Abnormal Lab Results - Last 24 Hours (Table) 08/26/17 08/27/17 Range/Units 08:46 11:45 Triglycerides 243 H (<150) mg/dL Cholesterol 263 H (<200) mg/dL LDL Cholesterol, Calc 155 H (0-99) mg/dL CSF Glucose 112 H (40-70) mg/dL Microbiology - Last 24 Hours (Table) 08/27/17 11:45 CSF Gram Stain - Preliminary Cerebral Spinal Fluid Assessment and Plan (1) Bilateral occipital neuralgia Current Visit: Yes Status: Acute SNOMED Code(s): 85767866 (2) Headache Current Visit: No Status: Acute SNOMED Code(s): 40749316 (3) Confusion Current Visit: Yes Status: Acute SNOMED Code(s): 191374990 Plan: The patient has had her spinal tap done. Preliminary results show there is no signs of infection thus far. Patient is afebrile. Her headache is localized to the occipital notch with tenderness. Her headaches are likely related to occipital neuralgia. She was advised that a nerve block would be more efficacious than narcotics for her pain. Pain management has been consulted.
--- NOTE | 2017-08-27 16:23 | P.PN ---
Progress Note - Text Progress Note Date: 08/27/17 DATE OF SERVICE: 08/27/2017 PRESENTING COMPLAINT: Headache and neck pain HISTORY OF PRESENT ILLNESS: 47-year-old female who presents after having a headache for about a week or so located at the back of the head and neck more so on the nuchal line sometimes going to the front. Occasional nausea, no photophobia decreased appetite. Has a history of neck surgery, takes [place] at home. Follow-up with pain management by Dr. Daugherty. On presentation patient was somewhat confused and was admitted for the same. INTERVAL HISTORY: 08/27/2017: sitting up in bed just returned from lumbar puncture. Angry wanting to know why she cannot have injectable pain medication as is the only type of medication and seems to be helping her. Explanation provided. Ordered heating pad. Consulted pain management. Currently on her home dose of [place]. REVIEW OF SYSTEMS: Done for constitutional ,cardiovascular, GI, pulmonary with relevant findings as above. CURRENT MEDICATIONS Tylenol, albuterol, aspirin, atenolol, cholecalciferol, clonazepam, doxepin, gabapentin, Adderall, oxycodone, Protonix, prednisone. PHYSICAL EXAM VITAL SIGNS: Temperature 98.4, pulse 82, respiratory rate 16, blood pressure 106/66, oxygen saturation 93% on room air. GENERAL APPEARANCE: sitting up in bed somewhat angry HENT: Normocephalic, JVD not raised. Mass not palpable. Oral cavity normal, external appearance of ears and nose normal. EYES:Pupils equal. Conjunctiva normal. RESPIRATORY: Respiratory effort normal. Lungs diminished bilaterally . CARDIOVASCULAR: First and second sounds normal. No edema. ABDOMEN: Soft. Liver and spleen not palpable. No tenderness. No mass palpable. PSYCHIATRY: Alert and oriented x3. M Anxious and somewhat angry. NEUROLOGICAL: INVESTIGATIONS: LABS: None new CSF: Volume 2.0, appearance clear, color colorless, RBCs 0, total nucleated cells 1, glucose 112, total protein 25. ASSESSMENT: -headache, present for a week, no fevers. Seen by Dr. Miguel Angel Alicea who ordered patient a lumbar puncture and is status post lumbar puncture. Tenderness to the nuchal area this could be occipital neuritis. -Chronic obstructive pulmonary disease in a current smoker. -Hiatal hernia. -Anxiety depression not otherwise specified. -Essential hypertension. -Gastroesophageal reflux disease. -Chronic insomnia. -Chronic back pain for which patient is on Percocet as per pain specialist Dr. Daugherty PLAN: spinal tap completed pulmonary results show no signs of infection thus far. Remains afebrile. Headaches are likely due to occipital neuralgia, suggest nerve block rather than narcotics for pain. Pain management consulted. Plan of care discussed at the bedside. We will follow closely. [employer] statement: Patient was seen and examined by nurse practitioner Aminata Castorena and all elements of the case discussed with attending Dr. Jacinto
[2017-08-27 17:16] VITALS: BP 107/69; PULSE 78; TEMP 98.8
--- NOTE | 2017-08-27 17:35 | P.DS ---
Providers Date of admission: 08/26/17 12:25 Expected date of discharge: 08/27/17 Attending physician: Cecilio Jacinto Consults: 08/26/17 11:31 Consult Physician Routine Consulting Provider: Adolfo Alicea Consult Reason/Comments: Altered mental status Do you want consulting provider notified?: Yes 08/26/17 18:26 Consult to Anesthesia Routine Consulting Provider: Anesthesia,Services Consult Reason/Comments: B\L occipital nerve block, lumbar puncture. Primary care physician: Estelle Butterfield Hospital Course: FINAL DIAGNOSES: -headache, present for a week, no fevers. Seen by Dr. Miguel Angel Alicea who ordered patient a lumbar puncture and is status post lumbar puncture. Tenderness to the nuchal area this could be occipital neuritis. -Chronic obstructive pulmonary disease in a current smoker. -Hiatal hernia. -Anxiety depression not otherwise specified. -Essential hypertension. -Gastroesophageal reflux disease. -Chronic insomnia. -Chronic back pain for which patient is on Percocet as per pain specialist Dr. Daugherty HOSPTIAL COURSE: 47-year-old female admitted for a headache located around the nuchal area going to the front. Was also experiencing some level of confusion at home was brought in for further evaluation. Home medications reordered consultation to neurology placed. Spinal tap ordered. Results of far are negative. Patient requesting routinely and repeatedly IV hydromorphone for headache pain management. Stated she received a small dose of hydromorphone from anesthesia during her spinal tap and it helped a great deal. Explained to the patient that narcotic injectable pain medication is not appropriate choice for the type of pain that she is having by both neurology and internal medicine. Neurology recommended pain management consultation regarding nerve blocks which might be more efficacious in treating her headache as well as any other pain management problems she has. Dr. Daugherty consulted, however patient unwilling to wait for their arrival and their consultation to be completed. Patient is ambulatory in the room and luque ways, tolerating her diet. Last BM prior to admission. Overall condition is stabilized. Continues to have a bit of a headache, for which she has been provided Tylenol as well as Percocet. Consultants agree patient's condition is stable for discharge to home. PHYSICAL EXAM: CARDIOVASCULAR: First and second sounds noted no edema RESPIRATORY: Lung sounds clear to auscultation respiratory effort normal GI: Abdomen soft nontender liver and spleen not palpable NEUROLOGIC: Pupils equal, cranial nerves grossly intact, tenderness in the nuchal area. PSYCHIATRY: Alert and oriented 3. Mood and affect mildly angry Patient was seen and examined by nurse practitioner Aminata Castorena in all elements of the case discussed with attending Dr. Jacinto DISPOSITION: Discharged home Patient Condition at Discharge: Stable Plan - Discharge Summary Discharge Rx Participant: Yes New Discharge Prescriptions: New predniSONE See Taper PO DAILY #6 tab Continue clonazePAM [KlonoPIN] 0.5 mg PO BID Cholecalciferol [Vitamin D3] 1,000 unit PO DAILY Gabapentin [Neurontin] 400 mg PO TID #90 cap oxyCODONE-APAP 7.5-325MG [Percocet 7.5-325 mg] 1 tab PO TID PRN #90 tab PRN Reason: Pain Dextroamphetamine/Amphetamine [Adderall] 30 mg PO DAILY Doxepin HCl 50 mg PO HS Omeprazole 20 mg PO BID Atenolol [Tenormin] 50 mg PO DAILY Albuterol Inhaler [Ventolin Hfa Inhaler] 2 puff INHALATION Q6HR #1 inhaler Aspirin 81 mg PO DAILY #30 chew Discharge Medication List clonazePAM [KlonoPIN] 0.5 mg PO BID 02/24/17 [History] Cholecalciferol [Vitamin D3] 1,000 unit PO DAILY 06/10/17 [History] Gabapentin [Neurontin] 400 mg PO TID #90 cap 06/15/17 [Rx] oxyCODONE-APAP 7.5-325MG [Percocet 7.5-325 mg] 1 tab PO TID PRN #90 tab [Rx] Dextroamphetamine/Amphetamine [Adderall] 30 mg PO DAILY 07/30/17 [History] Doxepin HCl 50 mg PO HS 07/30/17 [History] Omeprazole 20 mg PO BID 07/30/17 [History] Atenolol [Tenormin] 50 mg PO DAILY 08/14/17 [History] Albuterol Inhaler [Ventolin Hfa Inhaler] 2 puff INHALATION Q6HR #1 inhaler 08/15 [Rx] Aspirin 81 mg PO DAILY #30 chew 08/15/17 [Rx] predniSONE See Taper PO DAILY #6 tab 08/27/17 [Rx] Follow up Appointment(s)/Referral(s): Estelle Butterfield DO [Primary Care Provider] - 3 Days Axel Daugherty MD [STAFF PHYSICIAN] - 1 Week Telma Alicea MD [STAFF PHYSICIAN] - 1 Week Discharge Disposition: HOME SELF-CARE
[2017-08-30 15:20] LABS: IgG - CSF 1.1 mg/dL (0.0 - 3.4); IgG/Albumin Index (CSF) 0.45 (0.00 - 0.77); Immunoglobulin G 883 mg/dL (700 - 1600)
== END 2017-08-27 17:45 | disposition home or self-care (01) ==
LOC: EC 08:18 → 6SEL 12:25
PROVIDERS: ADMIT Hospitalist; ATTEND Hospitalist
DX: R51 Headache (principal); R41.82 Altered mental status, unspecified; F41.9 Anxiety disorder, unspecified; J44.9 Chronic obstructive pulmonary disease, unspecified; I10 Essential (primary) hypertension; G89.29 Other chronic pain; M54.9 Dorsalgia, unspecified; M54.2 Cervicalgia; K21.9 Gastro-esophageal reflux disease without esophagitis; F51.04 Psychophysiologic insomnia; K44.9 Diaphragmatic hernia without obstruction or gangrene; F17.210 Nicotine dependence, cigarettes, uncomplicated; F90.9 Attention-deficit hyperactivity disorder, unspecified type; F40.240 Claustrophobia; F32.9 Major depressive disorder, single episode, unspecified; Z79.82 Long term (current) use of aspirin; Z79.899 Other long term (current) drug therapy; Z98.1 Arthrodesis status; Z86.14 Personal history of Methicillin resistant Staphylococcus aureus infection; Z86.73 Personal history of transient ischemic attack (TIA), and cerebral infarction without residual deficits; Z88.5 Allergy status to narcotic agent; Z88.6 Allergy status to analgesic agent; Z91.013 Allergy to seafood; Z86.19 Personal history of other infectious and parasitic diseases; Z80.1 Family history of malignant neoplasm of trachea, bronchus and lung; Z82.49 Family history of ischemic heart disease and other diseases of the circulatory system
CPT/HCPCS: 99285 ×2; 96374 ×2; 96375 ×4; 96376 ×2; 36415; 93005; 92523; 62270; 87476; 85379; 88108; 84157; 80061; 80053; 82945; 82040; 82042; 82784; 83916; 82140; 82550; 82553; 84484; 85025; 85610; 85730; 89050; 81001; 80306; 87070; 87205; 71046; 70450; G0378 ×2; J2250; J2060; J1170 ×2; J2930; J2405; J3010; J7512

== ENCOUNTER 2017-08-28 05:29 | Observation (INO) | payer OTHER ==
[2017-08-28] MEDS ORDERED: SODIUM CHLORIDE 0.9% 2,000 ML IV ONE (05:53)
[2017-08-28] MEDS ORDERED: HYDROmorphone 2 MG/ML 1 ML SYRINGE IVP STA (05:54)
[2017-08-28] MEDS ORDERED: ONDANSETRON 4 MG/2 ML VIAL IVP STA (05:54)
--- NOTE | 2017-08-28 05:59 | ED ---
Headache HPI - General Chief Complaint: Headache Stated Complaint: Headache Time Seen by Provider: 08/28/17 05:36 Source: patient, RN notes reviewed Mode of arrival: ambulatory Limitations: no limitations - History of Present Illness Initial Comments: This is a 47-year-old female history of cervical disc disease chronic headaches who had a lumbar puncture performed yesterday. She states she was asked to stay in hospital over the weekend but did not want to stay. She complains severe headache multiple episodes of nausea and vomiting lightheadedness some confusion she states fevers chills or sweats. He states the pain is markedly severe she did have a lumbar puncture done yesterday she denies much pain at the lumbar puncture site. No blurry vision no focal weakness to her upper or lower extremities. She does have some urinary urgency also. No incontinence. MD Complaint: headache - Related Data Home Medications Medication Instructions Recorded Confirmed clonazePAM [KlonoPIN] 0.5 mg PO BID 02/24/17 08/28/17 Cholecalciferol [Vitamin D3] 1,000 unit PO DAILY 06/10/17 08/28/17 Dextroamphetamine/Amphetamine 30 mg PO DAILY 07/30/17 08/28/17 [Adderall] Doxepin HCl 50 mg PO HS 07/30/17 08/28/17 Omeprazole 20 mg PO BID 07/30/17 08/28/17 Atenolol [Tenormin] 50 mg PO DAILY 08/14/17 08/28/17 Previous Rx's Medication Instructions Recorded Gabapentin [Neurontin] 400 mg PO TID #90 cap 06/15/17 oxyCODONE-APAP 7.5-325MG [Percocet 1 tab PO TID PRN #90 tab 06/15/17 7.5-325 mg] Albuterol Inhaler [Ventolin Hfa 2 puff INHALATION Q6HR #1 inhaler 08/15/17 Inhaler] Aspirin 81 mg PO DAILY #30 chew 08/15/17 predniSONE See Taper PO DAILY #6 tab 08/27/17 Allergies Allergy/AdvReac Type Severity Reaction Status Date / Time ibuprofen Allergy Rash/Hives Verified 08/28/17 05:39 ketorolac [From Toradol] Allergy Unknown Verified 08/28/17 05:39 morphine Allergy Swelling Verified 08/28/17 05:39 shellfish derived Allergy Anaphylaxis Verified 08/28/17 05:39 tramadol [From Ultram] Allergy Rash/Hives Verified 08/28/17 05:39 Review of Systems ROS Statement: Those systems with pertinent positive or pertinent negative responses have been documented in the HPI. ROS Other: All systems not noted in ROS Statement are negative. Past Medical History Past Medical History: Asthma, COPD, CVA/TIA, GERD/Reflux, Hypertension, Pneumonia Additional Past Medical History / Comment(s): Pt recently admitted to [facility] on with altered mental status multifactoral. Other hx: chronic back pain , lumbar degenerative disc disease, insomnia, shingles, hiatal hernia, kidney stones. TIA,"IF I TURN MY HEAD TO THE LEFT I GET DIZZY LIKE I'M SPINNING' History of Any Multi-Drug Resistant Organisms: MRSA Date of last positivie culture/infection: 09/22/2009 MDRO Source:: neck Past Surgical History: Appendectomy, Back Surgery, Section, Cholecystectomy, Hernia Repair Additional Past Surgical History / Comment(s): Cervical spine fusion with insertion of a metal plate, EGD, colonoscopy, hiatal hernia, lumbar rhizotomy and radiofrequency ablation,6 teeth removed due to abcess, early July had some teeth pulled. Past Anesthesia/Blood Transfusion Reactions: No Reported Reaction Additional Past Anesthesia/Blood Transfusion Reaction / Comment(s): CLAUSTROPHOBIA Past Psychological History: ADD/ADHD, Anxiety Smoking Status: Current every day smoker Past Alcohol Use History: None Reported Past Drug Use History: None Reported - Past Family History Father Family Medical History: Cancer Additional Family Medical History / Comment(s): Father at age 48 from lung cancer. Mother Family Medical History: Congestive Heart Failure (CHF), CVA/TIA Additional Family Medical History / Comment(s): Mother from CHF at the age of 78yrs. She had suffered from a CVA and had chronic back problems. Patient has 2 brothers and 4 sisters with no major medical problems. General Exam - General Exam Comments Initial Comments: This a well-developed well-nourished awake alert oriented 3 female Limitations: no limitations General appearance: alert, anxious, in distress Head exam: Present: atraumatic, normocephalic, normal inspection Eye exam: Present: normal appearance, PERRL, EOMI. Absent: scleral icterus, conjunctival injection, periorbital swelling ENT exam: Present: mucous membranes dry Neck exam: Present: normal inspection, tenderness, other (Paraspinous muscle tenderness palpation no step-off or crepitation). Absent: meningismus, lymphadenopathy Respiratory exam: Present: normal lung sounds bilaterally. Absent: respiratory distress, wheezes, rales, rhonchi, stridor Cardiovascular Exam: Present: regular rate, normal rhythm, normal heart sounds. Absent: systolic murmur, diastolic murmur, rubs, gallop, clicks GI/Abdominal exam: Present: soft, normal bowel sounds. Absent: distended, tenderness, guarding, rebound, rigid Extremities exam: Present: normal inspection, full ROM, normal capillary refill. Absent: tenderness, pedal edema, joint swelling, calf tenderness Back exam: Present: normal inspection, other (Examination the lumbar puncture site reveals the Band-Aids contacted did remove this. Localized puncture wound which appears be healing no drainage or discharge. Minimal localized tenderness. No erythema). Absent: CVA tenderness (R), CVA tenderness (L) Neurological exam: Present: alert, oriented X3, CN II-XII intact Psychiatric exam: Present: anxious Skin exam: Present: warm, dry, intact, normal color. Absent: rash Course Vital Signs 08/28/17 05:35 Temperature 98 F Pulse Rate 89 Respiratory 20 Rate Blood Pressure 138/85 O2 Sat by Pulse 100 Oximetry Medical Decision Making - Medical Decision Making The patient will be admitted she has agreed to stay this time. Dr. Alicea will be consulted. - Lab Data Result diagrams: 08/28/17 06:10 08/28/17 06:10 Lab Results 08/28/17 08/28/17 08/28/17 Range/Units 06:10 06:10 06:10 WBC 23.5 H (3.8-10.6) k/uL RBC 4.41 (3.80-5.40) m/uL Hgb 13.5 (11.4-16.0) gm/dL Hct 43.1 (34.0-46.0) % MCV 97.7 (80.0-100.0) fL MCH 30.7 (25.0-35.0) pg MCHC 31.4 (31.0-37.0) g/dL RDW 15.2 (11.5-15.5) % Plt Count 434 (150-450) k/uL Neutrophils % 88 % Lymphocytes % 6 % Monocytes % 5 % Eosinophils % 1 % Basophils % 0 % Neutrophils # 20.6 H (1.3-7.7) k/uL Lymphocytes # 1.4 (1.0-4.8) k/uL Monocytes # 1.2 H (0-1.0) k/uL Eosinophils # 0.2 (0-0.7) k/uL Basophils # 0.0 (0-0.2) k/uL Sodium 147 H (137-145) mmol/L Potassium 4.1 (3.5-5.1) mmol/L Chloride 109 H (98-107) mmol/L Carbon Dioxide 25 (22-30) mmol/L Anion Gap 13 mmol/L BUN 11 (7-17) mg/dL Creatinine 0.67 (0.52-1.04) mg/dL Est GFR (MDRD) Af Amer >60 (>60 ml/min/1.73 sqM) Est GFR (MDRD) Non-Af >60 (>60 ml/min/1.73 sqM) Glucose 129 H (74-99) mg/dL Calcium 11.0 H (8.4-10.2) mg/dL Magnesium 1.7 (1.6-2.3) mg/dL Total Bilirubin 0.2 (0.2-1.3) mg/dL AST 10 L (14-36) U/L ALT 21 (9-52) U/L Alkaline Phosphatase 107 (38-126) U/L Total Protein 6.9 (6.3-8.2) g/dL Albumin 3.9 (3.5-5.0) g/dL Urine Color Colorless Urine Appearance Clear (Clear) Urine pH 6.5 (5.0-8.0) Ur Specific [place] 1.002 (1.001-1.035) Urine Protein Negative (Negative) Urine Glucose (UA) Negative (Negative) Urine Ketones Negative (Negative) Urine Blood Negative (Negative) Urine Nitrite Negative (Negative) Urine Bilirubin Negative (Negative) Urine Urobilinogen <2.0 (<2.0) mg/dL Ur Leukocyte Esterase Negative (Negative) Disposition Clinical Impression: Headache, Failure of outpatient treatment, Chronic pain Disposition: ADMITTED IP TO THIS [facility] Condition: Stable Referrals: Estelle Butterfield DO [Primary Care Provider] - 1-2 days
[2017-08-28] MEDS ORDERED: CAFFEINE-SODIUM BENZOATE 1,000 MG in SODIUM CHLORIDE 0.9% 1,000 ML IVPB ONE (06:18)
[2017-08-28 06:20] LABS: Appearance,Urine Clear (Clear); Basophils % (A) 0 %; Bilirubin,Urine Negative (Negative); Blood,Urine Negative (Negative); Color,Urine Colorless; Eosinophils # (A) 0.2 k/uL (0-0.7); Eosinophils % (A) 1 %; Glucose,Urine (UA) Negative (Negative); HCT 43.1 % (34.0-46.0); HGB 13.5 gm/dL (11.4-16.0); Ketones,Urine Negative (Negative); Leukocyte Esterase,Urine Negative (Negative); Lymphocytes # (A) 1.4 k/uL (1.0-4.8); Lymphocytes % (A) 6 %; MCH 30.7 pg (25.0-35.0); MCHC 31.4 g/dL (31.0-37.0); MCV 97.7 fL (80.0-100.0); Mean Platelet Volume 6.6; Monocytes # (A) 1.2 k/uL (0-1.0); Monocytes % (A) 5 %; Neutrophils # (A) 20.6 k/uL (1.3-7.7); Neutrophils % (A) 88 %; Nitrite,Urine Negative (Negative); PH, Urine 6.5 (5.0-8.0); Platelet Count 434 k/uL (150-450); Protein,Urine Negative (Negative); RBC 4.41 m/uL (3.80-5.40); RDW 15.2 % (11.5-15.5); Specific Gravity,Urine 1.002 (1.001-1.035); Urobilinogen,Urine <2.0 mg/dL (<2.0); WBC 23.5 k/uL (3.8-10.6)
[2017-08-28 06:34] LABS: ALT 21 U/L (9-52); AST 10 U/L (14-36); Albumin 3.9 g/dL (3.5-5.0); Alkaline Phosphatase 107 U/L (38-126); Anion Gap 13 mmol/L; Blood Urea Nitrogen 11 mg/dL (7-17); Carbon Dioxide 25 mmol/L (22-30); Chloride 109 mmol/L (98-107); Glucose 129 mg/dL (74-99); Magnesium 1.7 mg/dL (1.6-2.3); Potassium 4.1 mmol/L (3.5-5.1); Sodium 147 mmol/L (137-145); Total Bilirubin 0.2 mg/dL (0.2-1.3); Total Protein 6.9 g/dL (6.3-8.2)
[2017-08-28] MEDS: CAFFEINE CITRATE 500 MG in DEXTROSE 5% IN WATER 50 ML IVPB ONE ×4 (06:42→06:43)
[2017-08-28] MEDS ORDERED: LORazepam 2 MG/ML INJ IV STA (06:45)
[2017-08-28] MEDS ORDERED: NALOXONE 0.4 MG/ML 1 ML VIAL IV PRN (06:50)
[2017-08-28] MEDS ORDERED: ONDANSETRON 4 MG/2 ML VIAL IVP PRN (06:53)
[2017-08-28] MEDS ORDERED: PANTOPRAZOLE 40 MG TABLET PO SCH (07:30)
[2017-08-28] MEDS: SODIUM CHLORIDE 0.9% 1,000 ML IV SCH ×2 (08:27→11:32)
[2017-08-28] MEDS ORDERED: ASPIRIN 81 MG PO SCH (09:00)
[2017-08-28] MEDS ORDERED: GABAPENTIN 400 MG CAP PO SCH (09:00)
[2017-08-28] MEDS ORDERED: clonazePAM 0.5 MG TAB PO SCH (09:00)
[2017-08-28] MEDS ORDERED: CHOLECALCIFEROL 1,000 UNIT TAB PO SCH (09:00)
[2017-08-28] MEDS ORDERED: NON-FORMULARY DRUG (Dextroamphetamine/Amphetamine [Adderall] 30 MG) PO SCH (09:00)
[2017-08-28] MEDS ORDERED: predniSONE 20 MG TAB PO SCH (09:00)
[2017-08-28] MEDS ORDERED: ATENOLOL 50 MG TAB PO SCH (09:00)
[2017-08-28 09:13] VITALS: BP 105/43; TEMP 97.9
[2017-08-28] MEDS: ALBUTEROL NEBULIZED 2.5 MG/3 ML INHALATION SCH ×2 (09:32→12:33)
[2017-08-28] MEDS: oxyCODONE-APAP 7.5-325MG 1 EACH TAB PO PRN ×2 (09:40→10:14)
[2017-08-28] MEDS ORDERED: oxyCODONE-APAP 7.5-325MG 1 EACH TAB PO PRN ×2 (10:16→10:33)
[2017-08-28 10:25] VITALS: BMI 31.0
[2017-08-28] MEDS ORDERED: NON-FORMULARY DRUG (Dextroamphetamine/Amphetamine [Adderall] 10 MG) PO SCH (11:15)
[2017-08-28 12:43] VITALS: RESP 16
[2017-08-28 16:04] VITALS: PULSE 64
--- NOTE | 2017-08-28 16:55 | P.PN ---
Progress Note - Text Anesthesia. The patient is a well-known pain clinic patient who had a diagnostic LP yesterday to rule out MS. She also complains of an occipital frontal headache that may benefit from bilateral occipital nerve blocks. I visited the patient this afternoon and she explained to me in what seemed to me to be a rather theatrical and agitated manner that my OK was needed in order to get the intravenous medications she felt she needed for her headache. Since she is a pain clinic patient who's analgesics are rather closely regulated by the clinic I think it is best that she be seen on Wednesday by Dr. Teagan Ruiz who, if he is so inclined could also do a bilateral occipital nerve block for her. It's my opinion that the patient will do quite well on her own over the weekend since she demonstrated to the nurse caring for her that she was able to walk the halls and consume a large hamburger with little difficulty.
--- NOTE | 2017-08-28 18:20 | HP ---
HISTORY AND PHYSICAL HISTORY AND PHYSICAL AND DISCHARGE SUMMARY: DATE OF ADMISSION: 08/28/2017 DATE OF DISCHARGE: 08/28/2017 PRESENTING COMPLAINT: Headache. HISTORY OF PRESENTING COMPLAINT: This is a 47-year-old patient of Dr. Butterfield. Chronic stable medical conditions include GERD, hypertension, COPD, hiatal hernia, anxiety, insomnia. The patient was here on 08/26/2017 and discharged yesterday on 08/27/2017. The patient had presented with the last admission with a headache, more at the of the head. There was no nausea. No photophobia. decreased appetite. The patient was diagnosed to have occipital neuritis. The patient does take [place] 7.5 three times a day and followed by the pain specialist, Dr. Daugherty. Last admission, patient was seen by Dr. Asha Alicea from Neurology who did order a lumbar puncture. Lumbar puncture was unremarkable. Patient was due to come back. The patient was given some steroids. The patient cannot tolerate NSAIDs. Hence, was given some steroids and patient was sent home for the same to follow with Dr. Daugherty. The patient presented this morning, the headache was bothering her. Headache mainly at the back part of the head along the nuchal line, though some in the front. No photophobia. No double vision. No focal illness. She did state the little bit of headache was little bit more with sitting up but primarily unchanged. REVIEW OF SYSTEMS: CONSTITUTIONAL: None. HEENT: As above. RESPIRATORY: None. CARDIOVASCULAR: None. GASTROINTESTINAL: None. GENITOURINARY: None. MUSCULOSKELETAL: Chronic neck pain. DERMATOLOGICAL: None. HEMATOLOGIC: None. LYMPHATICS: None. PSYCHIATRY: Anxiety. NEUROLOGICAL: None. PAST HISTORY: GERD, hypertension, COPD, hiatal hernia, anxiety, insomnia, chronic neck pain, occipital neuritis. PAST SURGICAL HISTORY: Appendectomy, back surgery, , cholecystectomy, hernia repair, cervical spine fusion with insertion of metal plate, EGD, colonoscopy, lumbar rhizotomy, radiofrequency ablation, 6 teeth removed due to abscess. PSYCH HISTORY: ADD and anxiety. SOCIAL HISTORY: Patient lives with [place]ov[place] a significant other for the last 24 years. Smokes a pack and half a day for 25 years, now is down to 7 to 10 cigarettes a day. No alcohol. FAMILY HISTORY: Father of lung cancer at age 48. ALLERGIES: Allergies to IBUPROFEN, KETOROLAC, MORPHINE, SHELLFISH, TRAMADOL. HOME MEDICATIONS: 1. Prednisone taper. 2. Percocet 7.5 one tablet t.i.d. p.r.n. 3. Klonopin 0.5 p.o. b.i.d. 4. Omeprazole 20 mg p.o. b.i.d. 5. Neurontin 400 mg t.i.d. 6. Doxepin 50 mg q.h.s. 7. Adderall mg a day. 8. Vitamin D3, 1000 units a day. 9. Tenormin 50 mg a day. 10.Aspirin 81 mg a day. 11.Ventolin inhaler 2 puffs q.6. PHYSICAL EXAMINATION: On examination, temperature 97.9, pulse 64, respirations 14, blood pressure 105/43, pulse ox 98% on room. GENERAL APPEARANCE: Average built, sitting up in bed, a bit anxious appearing. EYES: Pupils equal. Conjunctivae normal. HEENT: External appearance of nose, ears, oral cavity normal. NECK: JVD not raised. Mass not palpable. RESPIRATORY: Effort normal. LUNGS: Clear to auscultation. Slightly decreased breath sounds. CARDIOVASCULAR: First and second sounds normal. No edema. ABDOMEN: Soft, nontender. Liver and spleen not palpable. LYMPHATIC: No lymph node palpable in the neck or axillae. PSYCHIATRY: Alert and oriented x3. Mood affect anxious appearing. NEUROLOGICAL: Pupils equal. Cranial nerves grossly intact. Power and sensation grossly intact. INVESTIGATIONS: White count 23.5, hemoglobin 13.5. Potassium 4.1, BUN 11, creatinine 0.67. ASSESSMENT: 1. Cephalgia. The patient already has a diagnosis of occipital neuritis now there may be an element of spinal headache with the lumbar puncture. 2. Chronic obstructive pulmonary disease in a current smoker. 3. Hiatal hernia. 4. Anxiety, depression, not otherwise specified. 5. Essential hypertension. 6. Gastroesophageal reflux disease. 7. Chronic insomnia. 8. Chronic back pain for which patient follows with Dr. Daugherty. PLAN: Consultation was made to Dr. Pedro Alicea from Neurology and Dr. Murphy from lumbar puncture. He did see the patient and did not feel the need for any blood patch. The patient is given IV fluids. The patient did receive a request of extra Percocet over the weekend until she gets to see Dr. Daugherty on Wednesday. I did agree to give her 10 extra pills of Percocet to be spaced out in addition to what she has at home until she sees Dr. Daugherty on Wednesday. Patient is agreeable for the same. Patient to contact Dr. Daugherty on Wednesday for blood patch or increase of chronic pain medications if need be. The patient is to continue other home medications as listed above. The patient can be discharged home. MMODL / IJN: [id number] /
[2017-08-28] MEDS ORDERED: DOXEPIN 25 MG CAP PO SCH (21:00)
[2017-08-29] MEDS ORDERED: ENOXAPARIN 40 MG/0.4 ML SYRINGE SQ SCH (09:00)
== END 2017-08-28 16:55 | disposition home or self-care (01) ==
LOC: EC 05:29 → 3OBS 06:54 → 5MS5E 11:07
PROVIDERS: ADMIT Hospitalist; ATTEND Hospitalist
DX: R51 Headache (principal); M79.2 Neuralgia and neuritis, unspecified; J44.9 Chronic obstructive pulmonary disease, unspecified; F17.210 Nicotine dependence, cigarettes, uncomplicated; K44.9 Diaphragmatic hernia without obstruction or gangrene; F41.9 Anxiety disorder, unspecified; F32.9 Major depressive disorder, single episode, unspecified; I10 Essential (primary) hypertension; K21.9 Gastro-esophageal reflux disease without esophagitis; F51.04 Psychophysiologic insomnia; G89.29 Other chronic pain; M54.9 Dorsalgia, unspecified; Z79.891 Long term (current) use of opiate analgesic; Z79.82 Long term (current) use of aspirin; Z79.899 Other long term (current) drug therapy; Z82.3 Family history of stroke; Z80.1 Family history of malignant neoplasm of trachea, bronchus and lung; Z82.49 Family history of ischemic heart disease and other diseases of the circulatory system; M51.36 Other intervertebral disc degeneration, lumbar region; Z86.14 Personal history of Methicillin resistant Staphylococcus aureus infection; Z87.01 Personal history of pneumonia (recurrent); Z87.442 Personal history of urinary calculi; Z88.6 Allergy status to analgesic agent; Z88.5 Allergy status to narcotic agent; Z91.013 Allergy to seafood; R11.2 Nausea with vomiting, unspecified; R42 Dizziness and giddiness; R41.0 Disorientation, unspecified; R50.9 Fever, unspecified; Z98.890 Other specified postprocedural states; Z98.1 Arthrodesis status; R39.15 Urgency of urination
CPT/HCPCS: 99284 ×2; 96365 ×2; 96361 ×2; 96375 ×4; 36415; 94640; 80053; 83735; 85025; 81003; G0378; J2060; J1170; J2405; J7512

== ENCOUNTER 2017-09-02 06:52 | Day surgery (SDC) | payer OTHER ==
[2017-09-02] MEDS ORDERED: LIDOCAINE 1% 20 ML VIAL (10MG/ML) FOR IV START INTRADERMA ONE (07:52)
[2017-09-02 08:06] LABS: Glucose,Whole Blood 99 mg/dL (75-99)
[2017-09-02 08:18] VITALS: TEMP 97.9
[2017-09-02] MEDS ORDERED: ONDANSETRON 4 MG/2 ML VIAL IVP ONE (08:26)
--- NOTE | 2017-09-02 08:45 | P.PCN ---
Date of Procedure: 09/02/17 Procedure(s) Performed: Pre-operative diagnosis: 1- Bilateral occipital neuralgea Post Operative Diagnosis 1- Bilateral occipital neuralgea Procedure: 1- Bilateral occipital nerve block ANESTHESIA: Moderate sedation with Versed. 2 mg and fentanyl 200 micrograms EBL: Minimal PROCEDURE INDICATION: The patient with neck pain and headache secondary to occipital neuralgea unresponsive to conservative treatments. PROCEDURE DESCRIPTION / TECHNIQUE: The patient was seen and identified in the preoperative area. Risks, benefits, complications, and alternatives were discussed with the patient, the patient agreed to proceed with the procedure and signed the consent. IV was started. Vital signs remained stable throughout the procedure. Patient was taken to the OR and time out was completed. The patient was placed in the pron (sitting ) position on the procedure table. A pillow was placed under the patients chest to increase the cervical interlaminar space. The cervical area and right occiptial area were prepped with alcohol swab. Critical pause was taken. Vital signs were closely monitored during the procedure. Conscious sedation was used during the procedure to decrease patients anxiety. The right occiptal ridge was palpated and was then accessed with a 25 G needle. Then after negative aspiration, 6 ml of the block solution containing 6 ml of PF Buvicaine 0.5% and Kenalog 40 mg was injected. Needle was withdrawn intact. Then the same procedure was repeated on the left side and related the left occipital nerve block, after negative aspiration 6 mL of the block solution containing ropivacaine 0.5% and 40 mg of Kenalog injected after negative aspiration Patient tolerated procedure well. No acute complications.
[2017-09-02] MEDS ORDERED: IV FLUID CONTINUATION 1,000 ML IV ONE (08:46)
[2017-09-02 09:00] VITALS: BP 130/89; PULSE 91; RESP 18
== END 2017-09-02 09:22 | disposition home or self-care (01) ==
LOC: ORPAIN 06:52
PROVIDERS: ATTEND Specialist
DX: M54.81 Occipital neuralgia (principal); I10 Essential (primary) hypertension; J44.9 Chronic obstructive pulmonary disease, unspecified; Z88.6 Allergy status to analgesic agent; Z88.5 Allergy status to narcotic agent; Z91.013 Allergy to seafood; Z86.73 Personal history of transient ischemic attack (TIA), and cerebral infarction without residual deficits
CPT/HCPCS: 64405; J2250; J3301; J2405; J3010

== ENCOUNTER 2017-09-19 18:02 | Observation (INO) | payer OTHER ==
[2017-09-19] MEDS ORDERED: SODIUM CHLORIDE 0.9% 1,000 ML IV STA (18:31)
[2017-09-19] MEDS ORDERED: NITROGLYCERIN SL TABS 0.4 MG TAB SUBLINGUAL STA (18:31)
[2017-09-19] MEDS ORDERED: ONDANSETRON 4 MG/2 ML VIAL IVP STA (18:31)
[2017-09-19] MEDS: HYDROmorphone 0.5 MG/0.5 ML SYRINGE IVP STA ×2 (19:05→20:47)
[2017-09-19 19:16] LABS: Basophils # (A) 0.1 k/uL (0-0.2); Basophils % (A) 1 %; Eosinophils # (A) 0.4 k/uL (0-0.7); Eosinophils % (A) 4 %; HCT 42.6 % (34.0-46.0); HGB 13.6 gm/dL (11.4-16.0); Lymphocytes # (A) 1.6 k/uL (1.0-4.8); Lymphocytes % (A) 15 %; MCH 30.9 pg (25.0-35.0); MCHC 31.9 g/dL (31.0-37.0); MCV 96.7 fL (80.0-100.0); Mean Platelet Volume 6.6; Monocytes # (A) 0.8 k/uL (0-1.0); Monocytes % (A) 8 %; Neutrophils # (A) 7.5 k/uL (1.3-7.7); Neutrophils % (A) 72 %; Platelet Count 366 k/uL (150-450); RBC 4.41 m/uL (3.80-5.40); RDW 14.1 % (11.5-15.5); WBC 10.6 k/uL (3.8-10.6)
[2017-09-19 19:24] LABS: ALT 21 U/L (9-52); AST 14 U/L (14-36); Albumin 3.8 g/dL (3.5-5.0); Alkaline Phosphatase 127 U/L (38-126); Anion Gap 9 mmol/L; Blood Urea Nitrogen 10 mg/dL (7-17); Calcium 9.9 mg/dL (8.4-10.2); Carbon Dioxide 25 mmol/L (22-30); Chloride 110 mmol/L (98-107); Glucose 103 mg/dL (74-99); Potassium 3.9 mmol/L (3.5-5.1); Sodium 144 mmol/L (137-145); Total Bilirubin 0.1 mg/dL (0.2-1.3); Total Protein 6.7 g/dL (6.3-8.2)
[2017-09-19 19:33] LABS: Creatine Kinase 62 U/L (30-135)
[2017-09-19 19:35] LABS: D-Dimer 0.34 mg/L FEU (<0.60)
--- NOTE | 2017-09-19 19:35 | XR ---
EXAMINATION TYPE: XR chest 2V DATE OF EXAM: 09/19/2017 COMPARISON: 08/26/2017 HISTORY: Chest pain. History of COPD. TECHNIQUE: Frontal and lateral views of the chest are obtained. FINDINGS: Central peribronchial cuffing is present predominating around the bronchus intermedius. Th ere is no focal air space opacity, pleural effusion, or pneumothorax seen. The cardiac silhouette si ze is within normal limits. The osseous structures are intact. Cholecystectomy clips are noted with in the right upper quadrant. Surgical fusion device is again noted. IMPRESSION: Central peribronchial cuffing predominating around the bronchus intermedius is seen. Cor relate for bronchitis or reactive airway disease.
[2017-09-19 19:39] LABS: INR 0.9 (<1.2); Prothrombin Time 9.3 sec (9.0-12.0)
[2017-09-19 19:47] LABS: Creatine Kinase MB 0.5 ng/mL (0.0-2.4); Troponin I <0.012 ng/mL (0.000-0.034)
[2017-09-19] MEDS ORDERED: LORazepam 1 MG TAB PO STA (19:57)
--- NOTE | 2017-09-19 20:01 | ED ---
Chest Pain HPI - General Chief Complaint: Chest Pain Stated Complaint: Chest pain Time Seen by Provider: 09/19/17 18:19 Source: patient, family Mode of arrival: wheelchair Limitations: no limitations - History of Present Illness Initial Comments: 47 years old female came in with the chest pain, junk chest pain started about to 2 hours prior to arrival to the ER she said she has a history of angina, COPD , CVA and TIA, chest pain started when she was resting she is nauseous she is very short-winded she is very anxious she is very shaky denies any vomiting she had some cold sweats. Denies any headaches no neck stiffness chest pain is worse with a deep breaths no abdominal pain no frequency urgency dysuria no weakness of upper or lower extremity - Related Data Home Medications Medication Instructions Recorded Confirmed clonazePAM [KlonoPIN] 0.5 mg PO BID 02/24/17 09/19/17 Cholecalciferol [Vitamin D3] 1,000 unit PO DAILY 06/10/17 09/19/17 Dextroamphetamine/Amphetamine 30 mg PO QAM 07/30/17 09/19/17 [Adderall] Doxepin HCl 50 mg PO HS 07/30/17 09/19/17 Omeprazole 20 mg PO BID 07/30/17 09/19/17 Atenolol [Tenormin] 50 mg PO DAILY 08/14/17 09/19/17 Albuterol Inhaler [Ventolin Hfa 2 puff INHALATION RT-Q6H PRN 08/28/17 09/19/17 Inhaler] Gabapentin [Neurontin] 400 mg PO TID 09/19/17 09/19/17 Previous Rx's Medication Instructions Recorded oxyCODONE-APAP 7.5-325MG [Percocet 1 tab PO TID PRN #90 tab 06/15/17 7.5-325 mg] Aspirin 81 mg PO DAILY #30 chew 08/15/17 Allergies Allergy/AdvReac Type Severity Reaction Status Date / Time ibuprofen Allergy Rash/Hives Verified 09/19/17 18:41 ketorolac [From Toradol] Allergy THROAT Verified 09/19/17 18:41 Swelling morphine Allergy Swelling Verified 09/19/17 18:41 shellfish derived Allergy Anaphylaxis Verified 09/19/17 18:41 tramadol [From Ultram] Allergy Rash/Hives Verified 09/19/17 18:41 Review of Systems ROS Statement: Those systems with pertinent positive or pertinent negative responses have been documented in the HPI. ROS Other: All systems not noted in ROS Statement are negative. EKG Findings - EKG Comments: EKG Findings:: EKG is sinus tachycardia ventricular rate is 14 AL interval is 190 QRS duration is 74 QT/QTC 380/434 review of this EKG does not reveal any ST elevation or ST depression Past Medical History Past Medical History: Asthma, COPD, CVA/TIA, GERD/Reflux, Hypertension, Pneumonia Additional Past Medical History / Comment(s): Pt recently admitted to [facility] on with altered mental status multifactoral. Other hx: chronic back pain , lumbar degenerative disc disease, insomnia, shingles, hiatal hernia, kidney stones. TIA,"IF I TURN MY HEAD TO THE LEFT I GET DIZZY LIKE I'M SPINNING' History of Any Multi-Drug Resistant Organisms: MRSA Date of last positivie culture/infection: 09/22/2009 MDRO Source:: neck Past Surgical History: Appendectomy, Back Surgery, Section, Cholecystectomy, Hernia Repair Additional Past Surgical History / Comment(s): Cervical spine fusion with insertion of a metal plate, EGD, colonoscopy, hiatal hernia, lumbar rhizotomy and radiofrequency ablation,6 teeth removed due to abcess, early July had some teeth pulled. Past Anesthesia/Blood Transfusion Reactions: No Reported Reaction Additional Past Anesthesia/Blood Transfusion Reaction / Comment(s): CLAUSTROPHOBIA Past Psychological History: ADD/ADHD, Anxiety Smoking Status: Current every day smoker - Past Family History Father Family Medical History: Cancer Additional Family Medical History / Comment(s): Father at age 48 from lung cancer. Mother Family Medical History: Congestive Heart Failure (CHF), CVA/TIA Additional Family Medical History / Comment(s): Mother is alive at age 68. She has suffered from a CVA and has chronic back problems. Patient has 2 brothers and 4 sisters with no major medical problems. General Exam - General Exam Comments Initial Comments: General: The patient is awake and alert, GCS is 15 very nervous Skin: Skin is warm and dry and no rashes or lesions are noted. Eye: Pupils are equal, round and reactive to light, extra-ocular movements are intact; there is normal conjunctiva bilaterally. Ears, nose, mouth and throat: There are moist mucous membranes and no oral lesions. Neck: The neck is supple, there is no tenderness or JVD. Cardiovascular: There is a regular rate and rhythm. No murmur, rub or gallop is appreciated. It is sinus tachycardia Respiratory: To auscultation bilateral, fast respiratory rate good air exchange Gastrointestinal: Soft, non-distended, non-tender abdomen without masses or organomegaly noted. There is no rebound or guarding present. Bowel sounds are unremarkable. Back: There is no tenderness to palpation in the midline. There is no obvious deformity. Musculoskeletal: Normal ROM, no tenderness, There is no pedal edema. There is no calf tenderness or swelling. No cords were appreciated. Neurological: CN II-XII intact, Cranial nerves III through XII are intact. There are no obvious motor or sensory deficits. Coordination appears grossly intact. Speech is normal. Psychiatric: Cooperative, appropriate mood & affect, normal judgment. Limitations: no limitations Course Vital Signs 09/19/17 09/19/17 18:05 18:56 Temperature 99.0 F Pulse Rate 127 H 114 H Respiratory 22 20 Rate Blood Pressure 124/88 127/92 O2 Sat by Pulse 96 978 H Oximetry - Reevaluation(s) Reevaluation #1: She is reassessed at term 8 PM, her chest pain is still 8/10, labs and imaging are reviewed, d-dimer, troponin, CBC, comp his metabolic panel unremarkable surgery chest x-ray EKG did show tachycardia was sinus tachycardia considering her chest pain umbilical ahead and heparinize her she be admitted to Dr. Cohen service cardiology be consulted and will repeat her EKG C there are any changes 09/19/17 20:05 Critical Care Time Total Critical Care Time: 30 Critical Care Time: She is reassessed 3 times, still at 8 PM she still has chest pain 8/10 EKG showed a sinus tachycardia number she still quite anxious and complaining about the pain she states still short winded though x-rays normal troponin is normal so is the d-dimer CBC and compressive metabolic panel is unremarkable considering her chest pain umbilical ahead and now heparinize her she be admitted to Dr. Cohen service and cardiology be consulted Disposition Clinical Impression: Chest pain, Tachycardia, Dyspnea Disposition: ADMITTED IP TO THIS HOSP Referrals: Estelle Butterfield DO [Primary Care Provider] - 1-2 days
[2017-09-19] MEDS ORDERED: NITROGLYCERIN SL TABS 0.4 MG TAB SUBLINGUAL PRN (20:09)
[2017-09-19] MEDS ORDERED: HEPARIN SODIUM,PORCINE 5,000 UNIT/ML 1 ML VIAL IV ONE (20:09)
[2017-09-19] MEDS ORDERED: oxyCODONE-APAP 7.5-325MG 1 EACH TAB PO PRN (20:14)
[2017-09-19] MEDS ORDERED: ALBUTEROL NEBULIZED 2.5 MG/3 ML INHALATION PRN (20:14)
[2017-09-19] MEDS ORDERED: HEPARIN SOD,PORK IN 0.45% NACL 25,000 UNIT in 0.45% NACL 1 500ML.BAG IV SCH (20:15)
[2017-09-19] MEDS ORDERED: HYDROmorphone 0.5 MG/0.5 ML SYRINGE IVP STA (20:40)
[2017-09-19] MEDS ORDERED: DOXEPIN 25 MG CAP PO SCH (21:00)
[2017-09-19 21:31] VITALS: BMI 26.8
[2017-09-19] MEDS: clonazePAM 0.5 MG TAB PO SCH (21:36)
[2017-09-19] MEDS: PANTOPRAZOLE 40 MG TABLET PO SCH (21:36)
[2017-09-19] MEDS: GABAPENTIN 400 MG CAP PO SCH (21:36)
[2017-09-19] MEDS ORDERED: HYDROmorphone 0.5 MG/0.5 ML SYRINGE IVP PRN (22:08)
[2017-09-19] MEDS ORDERED: ONDANSETRON 4 MG/2 ML VIAL IVP PRN (22:09)
[2017-09-19] MEDS ORDERED: HYDROmorphone 4 MG TABLET PO PRN (22:18)
[2017-09-19] MEDS: MORPHINE SULFATE 4 MG/ML SYRINGE IVP PRN (22:53)
[2017-09-19 23:35] VITALS: RESP 18
[2017-09-20 02:47] LABS: Creatine Kinase 46 U/L (30-135)
[2017-09-20 03:00] LABS: Creatine Kinase MB 0.4 ng/mL (0.0-2.4); Troponin I <0.012 ng/mL (0.000-0.034)
[2017-09-20] MEDS: MORPHINE SULFATE 4 MG/ML SYRINGE IVP PRN ×3 (03:27→12:41)
--- NOTE | 2017-09-20 07:13 | HP ---
HISTORY AND PHYSICAL DATE OF SERVICE: 09/19/2017 CHIEF COMPLAINT: Chest pain. HISTORY OF PRESENT ILLNESS: This 47-year-old woman with a past medical history of multiple medical problems including asthma, COPD, GERD, hypertension, pneumonia, being followed by Dr. Estelle Butterfield in the outpatient setting was recently admitted to [facility] with complaints of change in mental status and the patient had some occipital neuralgia also at the time. The patient also had previous extensive psychiatric history as well. Currently the patient is complaining of chest pain, which is felt in the center part of the chest which is sharp and heavy in character and the patient has become shaky and very anxious and patient had some cold sweats also. Because of increasing complaints, patient came to [facility] and was admitted for further evaluation and treatment. There is no history of fever, rigors. No history of headache, loss of consciousness, seizures. PAST MEDICAL HISTORY: History of asthma, COPD, CVA, TIA, GERD, hypertension, pneumonia. MEDICATIONS: Home medications are: 1. Percocet 7.5 t.i.d. p.r.n. 2. Klonopin 0.5 mg b.i.d. 3. Omeprazole 20 mg p.o. b.i.d. 4. Neurontin 400 mg p.o. t.i.d. 5. Doxepin 100 mg p.o. q.h.s. 6. Adderall 30 mg p.o. q.a.m. 7. Vitamin D3, 1000 daily. 8. Tenormin 50 mg daily. 9. Aspirin 81 mg daily. 10.Ventolin HFA 2 puffs q.6 p.r.n. ALLERGIES: IBUPROFEN, TORADOL, MORPHINE, SHELLFISH, and ULTRAM. FAMILY HISTORY: History of cancer, lung cancer, in the family. SOCIAL HISTORY: History of smoking currently. No history alcohol intake. REVIEW OF SYSTEMS: ENT: No diminished hearing or diminished vision. CARDIOVASCULAR SYSTEM: As mentioned earlier. RESPIRATORY SYSTEM: As mentioned earlier. GI: No nausea. : No dysuria. NERVOUS SYSTEM: No numbness or weakness. ALLERGY/IMMUNOLOGY: History of asthma. HEMATOLOGY/ONCOLOGY: No history of anemia. ENDOCRINE: No history of diabetes mellitus or hypothyroidism. CONSTITUTIONAL: As mentioned earlier. DERMATOLOGY: Negative. RHEUMATOLOGY: Negative. PSYCHIATRY: As mentioned earlier. PHYSICAL EXAMINATION: The patient is alert and oriented x3. Pulse 91, blood pressure 111/82, respirations 16, temperature 98 degrees, pulse ox 96% in room air. HEENT: Conjunctivae normal. Oral mucosa moist. Neck is no jugular venous distention. No carotid bruit. No lymph node enlargement. CARDIOVASCULAR: S1 and S2 muffled. No S3 or S4. RESPIRATORY: Breath sounds diminished at the bases. No rhonchi, no crackles. ABDOMEN: Soft, nontender. No mass palpable. LEGS: No edema, no swelling. NERVOUS SYSTEM: Higher functions as mentioned earlier. Moves all 4 limbs. LYMPHATICS: No lymphadenopathy of the neck, axillae or groin. JOINTS: No active deforming arthropathy. LABS: CBC within normal limits and sodium 144. Alkaline phosphatase 127. Other labs normal. ASSESSMENT: 1. Chest pain, possible unstable angina. 2. History of asthma. 3. History of chronic obstructive pulmonary disease. 4. History of cerebrovascular accident. 5. Gastroesophageal reflux disease. 6. Hypertension. 7. History of pneumonia. 8. History of occipital neuralgia. 9. History of back pain, degenerative joint disease. 10.History of appendectomy. 11.History of claustrophobia. 12.History of attention deficits disorder, attention deficit hyperactivity disorder, anxiety. RECOMMENDATIONS AND DISCUSSION: Recommend to continue current medications. Continue symptomatic treatment. Otherwise at this time, I would rule out possibility of myocardial infarction, unstable angina protocol. Closely follow with Cardiology. Possible stress test. Guarded prognosis because of multiple complex medical issues. Further recommendations to follow. MMODL / IJN: [id number] /
[2017-09-20 07:18] LABS: Cholesterol 185 mg/dL (<200); HDL Cholesterol 64 mg/dL (40-60); LDL Cholesterol,Calculated 92 mg/dL (0-99); Triglycerides 144 mg/dL (<150)
[2017-09-20 07:25] LABS: Creatine Kinase 39 U/L (30-135)
[2017-09-20 07:38] LABS: Creatine Kinase MB 0.4 ng/mL (0.0-2.4); Troponin I <0.012 ng/mL (0.000-0.034)
[2017-09-20] MEDS ORDERED: DOBUTamine DRIP for NUC MED 250 MG in DEXTROSE/WATER 1 250ML.BAG IV ONE (08:00)
[2017-09-20] MEDS ORDERED: CHOLECALCIFEROL 1,000 UNIT TAB PO SCH (09:00)
[2017-09-20] MEDS ORDERED: ATENOLOL 50 MG TAB PO SCH (09:00)
[2017-09-20] MEDS ORDERED: NON-FORMULARY DRUG (Dextroamphetamine/Amphetamine [Adderall] 30 MG) PO SCH (09:00)
[2017-09-20] MEDS ORDERED: ASPIRIN 325 MG TAB PO SCH (09:00)
--- NOTE | 2017-09-20 10:10 | CONS ---
CONSULTATION Ms. Winston is a 47-year-old female who presented with symptoms of chest discomfort. Her symptoms started yesterday at rest, not related to physical activity. She still has some discomfort, the discomfort is worse with deep breathing as well as coughing. According to her, she is reasonably active physically, but she has significant dyspnea on exertion. She has some dizziness, palpitation. No syncope. No clear PND, no orthopnea. No peripheral edema. She claims that she had a prior history of myocardial infarction, although reviewing the records, I do not have any documentation of that. She was admitted to the hospital in February of last year and at that time, she had no evidence of cough. She had no evidence of any cardiac or acute changes. Patient had multiple admissions to the hospital with headache and chronic pain. Her coronary risk factors are remarkable for the smoking. She is nondiabetic. She is hypertensive. MEDICATION: Include oxycodone, Klonopin, Neurontin, Adderall, vitamin D, Tenormin and aspirin. REVIEW OF SYSTEMS: RESPIRATORY system: She had dyspnea on exertion. No recent wheezing. She has cough. GI system: No recent GI bleeding. No peptic ulcer disease. system: No dysuria or hematuria. Nervous system: No history of stroke or seizure. PHYSICAL EXAMINATION: A 47-year-old female, alert, oriented, in no apparent distress. Blood pressure 104/70 with a heart in 90s. HEAD: Normocephalic. Eyes sclerae anicteric. Neck good upstroke. No bruit. No jugular venous distention. LUNGS: Clear to auscultation. HEART: Regular rate and rhythm S1, S2. No S3. No rub. ABDOMEN: Soft, nontender. Positive bowel sounds. No organomegaly. EXTREMITIES: No edema. Intact pulses. LAB DATA: Lab data revealed troponin less than 0.012 for 3 samples. Cholesterol 185, LDL of 92, BUN creatinine 10 and 0.6, hemoglobin of 13.6. EKG revealed a sinus mechanism with a normal axis and intervals and minor nonspecific ST-T wave changes. Chest x-ray shows changes possibly related to bronchitis. IMPRESSION: 1. Chest discomfort, atypical for ischemic heart disease, probable noncardiac. 2. Chronic tobacco use. 3. Hypertension. 4. Prior history of chronic pain. RECOMMENDATIONS: I will stop the heparin. I will proceed to obtain a dobutamine stress echocardiogram. If there is no evidence of significant abnormality, then no further cardiac workup will be needed. Thank you for this consult. We will follow with you. MMODL / IJN: [id number] /
[2017-09-20] MEDS ORDERED: LEVOFLOXACIN 500MG-D5W PMX 500 MG in DEXTROSE/WATER 1 100ML.BAG IVPB SCH (10:30)
[2017-09-20] MEDS ORDERED: ATROPINE SULFATE 0.1 MG/ML 10ML SYRINGE ONE (11:48)
--- NOTE | 2017-09-20 11:58 | ECHOF ---
Referral Reason:cp MEASUREMENTS -------- HEIGHT: 154.9 cm WEIGHT: 64.0 kg BP: 133/86 RVIDd: 2.9 cm (< 3.3) IVSd: 1.1 cm (0.6 - 1.1) LVIDd: 3.6 cm (3.9 - 5.3) LVPWd: 1.1 cm (0.6 - 1.1) IVSs: 1.7 cm LVIDs: 2.2 cm LVPWs: 1.7 cm LAESV Index (A-L): 16.24 ml/m Ao Diam: 3.1 cm (2.0 - 3.7) AV Cusp: 1.7 cm (1.5 - 2.6) LA Diam: 2.9 cm (2.7 - 3.8) EPSS: 0.6 cm MV E Navneet: 0.99 m/s MV DecT: 252 ms MV A Navneet: 0.84 m/s MV E/A Ratio: 1.19 RAP: 5.00 mmHg RVSP: 13.81 mmHg MV EF SLOPE: 124.17 mm/s (70 - 150) MV EXCURSION: 1.32 cm (> 18.000) FINDINGS -------- Sinus rhythm. This was a technically good study. The left ventricular size is normal. There is borderline concentric left ventricular hypertrophy. Overall left ventricular systolic function is normal with, an EF between 55 - 60 %. The right ventricle is normal in size and function. Normal LA size by volume 22+/-6 ml/m2. The right atrium is normal in size. The aortic valve is trileaflet, and appears structurally normal. No aortic stenosis or regurgitation. Normal appearing mitral valve. Trace tricuspid regurgitation present. Right ventricular systolic pressure is normal at < 35 mmHg. There is no evidence of pulmonary hypertension. The pulmonic valve was not well visualized. The aortic root size is normal. Normal inferior vena cava with normal inspiratory collapse consistent with estimated right atrial pre ssure of 5 mmHg. There is no pericardial effusion. CONCLUSIONS -------- 1. Sinus rhythm. 2. This was a technically good study. 3. The left ventricular size is normal. 4. There is borderline concentric left ventricular hypertrophy. 5. Overall left ventricular systolic function is normal with, an EF between 55 - 60 %. 6. Normal LA size by volume 22+/-6 ml/m2. 7. The aortic valve is trileaflet, and appears structurally normal. No aortic stenosis or regurgitati on. 8. Normal appearing mitral valve. 9. Trace tricuspid regurgitation present. 10. Right ventricular systolic pressure is normal at < 35 mmHg. 11. The pulmonic valve was not well visualized. 12. The aortic root size is normal. 13. There is no pericardial effusion. PIECER: Chetan Wheeler RDCS
[2017-09-20] MEDS ORDERED: IPRATROPIUM-ALBUTEROL 3 ML NEB INHALATION SCH (12:00)
[2017-09-20] MEDS ORDERED: methylPREDNISolone SOD SUCCI 125 MG/2 ML VIAL IV SCH (12:00)
[2017-09-20 12:24] VITALS: BP 119/88; PULSE 115; TEMP 97.8
[2017-09-20] MEDS: clonazePAM 0.5 MG TAB PO SCH (12:34)
[2017-09-20] MEDS: GABAPENTIN 400 MG CAP PO SCH (12:34)
[2017-09-20] MEDS: PANTOPRAZOLE 40 MG TABLET PO SCH (12:34)
--- NOTE | 2017-09-20 12:55 | ECHOS ---
STRESS ECHOCARDIOGRAM DOBUTAMINE STRESS ECHO DATE OF SERVICE: 09/20/2017 INDICATIONS: Chest pain. MEDICATIONS: BASELINE HEART RATE: 90 BASELINE BLOOD PRESSURE: 104/71 MAXIMUM HEART RATE: 145 MAXIMUM BLOOD PRESSURE: 167/88 85% MPHR: 145 100% MPHR: 171 METS: MAXIMUM STAGE REACHED: TOTAL EXERCISE TIME: CLINICAL INFORMATION: Baseline rhythm is sinus mechanism, rate of 90, normal axis, intervals, and normal electrocardiogram. Baseline blood pressure 104/71 mmHg. The patient received an infusion of dobutamine per protocol as well as 1 mg of atropine. Peak rate 145 beats per minute, which is equal to 85% maximum predicted heart rate. Peak blood pressure 167/88 mmHg. Electrocardiograph monitoring revealed no evidence of diagnostic ischemic ST deviation. Baseline echocardiogram revealed normal wall thickness and motion. At peak infusion, there was normal wall motion and thickening. CONCLUSION: 1. Normal electrocardiograph response to dobutamine infusion. 2. Normal stress echocardiogram with no evidence of stress induced ischemia. MMODL / IJN: [id number] /
[2017-09-20] MEDS ORDERED: MORPHINE ORAL SOLN 10 MG/5 ML CUP PO PRN (13:14)
--- NOTE | 2017-09-21 07:29 | DS ---
DISCHARGE SUMMARY DATE OF SERVICE: 09/20/2017. FINAL DIAGNOSES: 1. Chest pain, possibly musculoskeletal with negative stress test. 2. History of asthma. 3. Chronic obstructive pulmonary disease. 4. History of the cerebrovascular accident .. 5. History of gastroesophageal reflux disease. 6. Hypertension. 7. History of pneumonia. 8. History of occipital neuralgia. 9. History of back pain, degenerative joint disease. 10.History of appendectomy. 11.History of claustrophobia. 12.History of attention deficit disorder, attention deficit hyperactivity disorder. 13.Acute bronchitis. DISCHARGE DISPOSITION: The patient will be discharged in stable condition with guarded prognosis. HISTORY OF PRESENT ILLNESS: This 47-year-old woman who was admitted with chest pain is being closely monitored and myocardial infarction . Cardiology performed a stress test, which was negative. On exam, vitals are stable. CARDIOVASCULAR: S1 and S2 muffled. ABDOMEN: Soft. NERVOUS SYSTEM: No focal deficits. DISCHARGE ADVICE: 1. Diet is cardiac. 2. Activity limited until followup. 3. Follow up with Dr. Estelle Butterfield in 2 to 3 days. 4. Follow up with Dr. Beatty as advised. Medications are as follows: 1. Ventolin 2 puffs p.o. q.i.d. p.r.n. 2. Aspirin 81 mg p.o. daily. 3. Tenormin 50 mg p.o. daily. 4. Vitamin D3, 1000 daily. 5. Klonopin 0.5 mg b.i.d. 6. Dextroamphetamine/amphetamine 30 mg q.a.m. 7. Doxepin 100 mg q.h.s. 8. Neurontin 400 mg t.i.d. 9. Levaquin 500 mg p.o. daily for 5 days. 10.Omeprazole 20 mg b.i.d. 11.Oxycodone 7.5 t.i.d. p.r.n. Once again, the patient will be discharged in a stable condition with a guarded prognosis. MMODL / IJN: [id number] / MTDD
== END 2017-09-20 15:25 | disposition home or self-care (01) ==
LOC: EC 18:02 → 3OBS 20:09
PROVIDERS: ADMIT Hospitalist; ATTEND Hospitalist
DX: R07.89 Other chest pain (principal); J45.909 Unspecified asthma, uncomplicated; J44.0 Chronic obstructive pulmonary disease with (acute) lower respiratory infection; K21.9 Gastro-esophageal reflux disease without esophagitis; I10 Essential (primary) hypertension; Z86.73 Personal history of transient ischemic attack (TIA), and cerebral infarction without residual deficits; Z87.01 Personal history of pneumonia (recurrent); M54.81 Occipital neuralgia; J20.9 Acute bronchitis, unspecified; F90.9 Attention-deficit hyperactivity disorder, unspecified type; F40.240 Claustrophobia; M54.9 Dorsalgia, unspecified; M19.90 Unspecified osteoarthritis, unspecified site; F41.9 Anxiety disorder, unspecified; R11.0 Nausea; R42 Dizziness and giddiness; R61 Generalized hyperhidrosis; R00.2 Palpitations; R06.00 Dyspnea, unspecified; M51.36 Other intervertebral disc degeneration, lumbar region; G89.29 Other chronic pain; F17.200 Nicotine dependence, unspecified, uncomplicated; Z79.899 Other long term (current) drug therapy; Z79.82 Long term (current) use of aspirin; Z88.8 Allergy status to other drugs, medicaments and biological substances; Z88.6 Allergy status to analgesic agent; Z88.5 Allergy status to narcotic agent; Z91.013 Allergy to seafood; Z87.442 Personal history of urinary calculi; Z86.14 Personal history of Methicillin resistant Staphylococcus aureus infection; Z80.1 Family history of malignant neoplasm of trachea, bronchus and lung; Z82.49 Family history of ischemic heart disease and other diseases of the circulatory system; Z90.49 Acquired absence of other specified parts of digestive tract; Z98.1 Arthrodesis status
CPT/HCPCS: 99291; 96361 ×5; 96375 ×6; 96376 ×4; 96365; 36415; 93005; 93017; 93306; 93350; 85379; 80061; 80053; 82550 ×2; 82553 ×2; 83735; 84484 ×2; 85025; 85610; 85730 ×2; 71046; G0378 ×2; J2270 ×2; J1644 ×2; J2930; J2405; J1956; J0461; J1170; J1250

== ENCOUNTER 2017-09-23 08:21 | Day surgery (SDC) | payer OTHER ==
[2017-09-22 10:45] VITALS: BMI 26.8
[2017-09-23 10:11] VITALS: RESP 16; TEMP 976
[2017-09-23] MEDS ORDERED: LIDOCAINE 1% 20 ML VIAL (10MG/ML) FOR IV START INTRADERMA ONE (10:12)
[2017-09-23] MEDS ORDERED: ONDANSETRON 4 MG/2 ML VIAL IVP ONE (10:25)
--- NOTE | 2017-09-23 11:33 | P.PCN ---
Date of Procedure: 09/23/17 Procedure(s) Performed: Pre-operative diagnosis: 1- Bilateral occipital neuralgea Post Operative Diagnosis 1- Bilateral occipital neuralgea Procedure: 1- Bilateral occipital nerve block ANESTHESIA: Moderate sedation with Versed. 2 mg and fentanyl 200 micrograms EBL: Minimal PROCEDURE INDICATION: The patient with neck pain and headache secondary to occipital neuralgea unresponsive to conservative treatments. PROCEDURE DESCRIPTION / TECHNIQUE: The patient was seen and identified in the preoperative area. Risks, benefits, complications, and alternatives were discussed with the patient, the patient agreed to proceed with the procedure and signed the consent. IV was started. Vital signs remained stable throughout the procedure. Patient was taken to the OR and time out was completed. The patient was placed in the pron (sitting ) position on the procedure table. A pillow was placed under the patients chest to increase the cervical interlaminar space. The cervical area and right occiptial area were prepped with alcohol swab. Critical pause was taken. Vital signs were closely monitored during the procedure. Conscious sedation was used during the procedure to decrease patients anxiety. The right occiptal ridge was palpated and was then accessed with a 25 G needle. Then after negative aspiration, 6 ml of the block solution containing 6 ml of PF Buvicaine 0.5% and Kenalog 40 mg was injected. Needle was withdrawn intact. Then the same procedure was repeated on the left side and related the left occipital nerve block, after negative aspiration 6 mL of the block solution containing ropivacaine 0.5% and 40 mg of Kenalog injected after negative aspiration Patient tolerated procedure well. No acute complications.
[2017-09-23] MEDS ORDERED: IV FLUID CONTINUATION 1,000 ML IV ONE (11:46)
[2017-09-23 12:01] VITALS: BP 143/92; PULSE 86
== END 2017-09-23 12:15 | disposition home or self-care (01) ==
LOC: ORPAIN 08:21
PROVIDERS: ATTEND Specialist
DX: M54.81 Occipital neuralgia (principal); J44.9 Chronic obstructive pulmonary disease, unspecified; F41.9 Anxiety disorder, unspecified; I10 Essential (primary) hypertension; Z86.73 Personal history of transient ischemic attack (TIA), and cerebral infarction without residual deficits; K21.9 Gastro-esophageal reflux disease without esophagitis; Z88.6 Allergy status to analgesic agent; Z88.5 Allergy status to narcotic agent; Z91.013 Allergy to seafood
CPT/HCPCS: 64405; J2250; J1030; J2405; J3010

== ENCOUNTER → 2017-10-28 | Outpatient (CLI) | payer OTHER ==
[2017-10-28 11:57] VITALS: BP 134/99; PULSE 118; RESP 22
--- NOTE | 2017-10-28 15:05 | P.PN ---
Subjective Progress Note Date: 10/28/17 This is 47 years old female with a chronic history of severe headache and she is diagnosed with occipital neuralgia, and then occipital nerve block which helped her headache, and also patient had chronic severe low back pain and we have done in the past diagnostic medial branch block lumbar area L2-3, L3 4, L4 5, and L5-S1, which was done in August and October 2016, patient is was scheduled to have radiofrequency ablation of the medial branch lumbar area, but the pain in prone and patient had the different medical problems , for this reason radiofrequency ablation of the medial branch lumbar area was not done . Currently patient taking care of Percocet 7.5/325 every 6 hours, and she is taking 2 Neurontin 400 mg 3 times a day, she denies any side effect of the medication she denies any excessive drowsiness and sleepiness, she denies any motor or sensory deficit Objective - Vital Signs Vital signs: Vital Signs Temp Pulse 118 H 10/28/17 11:47 Resp 22 10/28/17 11:47 BP 134/99 10/28/17 11:47 Pulse Ox 99 10/28/17 11:47 Intake & Output 10/27/17 10/28/17 10/28/17 18:59 06:59 18:59 Weight 68.039 kg - Exam Physical Examinations : 1-Constitutiona : Cooperative , not in acute distress . 2-HEENT : nech ; supple , no Lymphadenopathy , normal thyroid size . eyes : no ptosis , no icterus, no photophobia . ENT : normal of hearing , normal oropharynx , no Thrush . 3- Respiratory : Chest clear to auscultations Bilaterally , no wheezing , no Rhonchi . 4- Cardiovascular : regular rate and rhythem , S1 , S2 , no S3 , no S4. 5- Gastrointestinal : abdomen soft no tenderness , bowel sounds positive all four quadrents , no organomegally . 6- Genitourinary : Defferred . 7- neurologic : Cranial nerve II to XII intact , no focal neurological deffecit . 8-psychatric : alert , oriented X 3 , appropriate affect , intact judgment and insight . 9-Lymphatic : no Lymphadenopathy . 10- musculoskeltal : cervical spine = motor stregnth in the deltoid and biceps, motor stregnth biceps and the wrist extensors (C6) . motor stregnth in the triceps muscle . deep tendon reflexes normal at the biceps , normal at Brachioradialis , normal at the Triceps positive cervical facet loading test . Tenderness over the occipital nerve bilaterally , Lumber spine = normal moter stegnth lower extremities ,thigh and legs .5/5 deep tendon reflexes : normal Knee Jerk , normal ankle Jerk . lumber facet Loading Test positive strait leg raising test negative bilaterally Fabere test negative bilaterally Sever tenderness over the Sacroiliac joint on the Right , and Left side Assessment and Plan Plan: Assessment and plan= chronic low back pain secondary to lumbar degenerative disc disease , lumbar spondylosis with lumbar facet arthropathy , Chronic headache, secondary to occipital neuralgia, status post bilateral occipital nerve block chronic and current use of high-risk medication (opioids) Patient denies any side effects of the current pain medication and the current treatment/medication ML and the patient to do activity of daily living , Diagnoses, prognosis, treatment options, including but not limited to physical therapy, medication management, interventional therapies, and surgery, were discussed with the patient All the questions answered Patient signed the narcotic agreement, and he was orally counseled, not to overuse, not to abuse, not to Divert , not tp sell pain medication, and to take it as prescribed only, Patient was counseled not to drive or operate heavy equipment while using narcotic medication, and advised not to use alcohol or any Illicit drugs while using the narcotis, the patient's verbalized understanding that lack of compliance with any of the above instructions and will likely to cause discharge from the pain service, not to renew his narcotic prescriptions Medication managements= patient had side effects from the Percocet she reported that she had some nausea, and she wished to switch back to her previous medication [place] Prescription for [place] 10/325 every 6 hours dispensed 90 was given, prescription for Neurontin 400 mg 3 times a day Patient will follow up in the pain clinic in 2 months Patient will be a good candidate to have radiofrequency ablation of the medial branch lumbar area , and also she will be good candidate to have repeat occipital nerve block if the headache comes back , Time with Patient: Less than 30
== END | disposition home or self-care (01) ==
LOC: PNWHC3 11:30
PROVIDERS: ATTEND Specialist
DX: G89.29 Other chronic pain (principal); M54.81 Occipital neuralgia; M51.36 Other intervertebral disc degeneration, lumbar region; M47.816 Spondylosis without myelopathy or radiculopathy, lumbar region; M46.96 Unspecified inflammatory spondylopathy, lumbar region; Z79.891 Long term (current) use of opiate analgesic; Z79.899 Other long term (current) drug therapy; Z98.890 Other specified postprocedural states
CPT/HCPCS: 99211

== ENCOUNTER → 2017-12-23 | Outpatient (CLI) | payer OTHER ==
[2017-12-23 14:04] VITALS: BP 164/103; RESP 18
--- NOTE | 2017-12-23 14:42 | P.PAINPG ---
Subjective Progress Note Date: 12/23/17 Principal diagnosis: Low back pain, left wrist pain His pleasant 47-year-old woman with a history of intractable low back pain as well as headache pain. She recently fell in her pool and broke her left wrist. She is scheduled to have his cast in the near future. She reports that she had procedures done on her low back by this clinic are very helpful for her. Currently, her right back is slowly is causing her most of her pain. She denies lumbar radicular symptoms. She denies bowel or bladder dysfunction. Objective - Vital Signs Vital signs: Vital Signs Temp Pulse Resp 18 12/23/17 13:59 BP 164/103 12/23/17 13:59 Pulse Ox 97 12/23/17 13:59 Intake & Output 12/22/17 12/23/17 12/23/17 18:59 06:59 18:59 Weight 67.132 kg - Exam General: The patient is alert and oriented. Patient is not sedateded Patient is a question appropriately. Cardiac: Heart is regular in rate and rhythm Respiratory: Clear to auscultation. No audible wheezes. Abdomen: Soft nontender nondistended. Lower extremities: Strength is normal bilaterally. Sensation is normal bilaterally. Reflexes are preserved and symmetric bilaterally. Straight leg raise is negative bilaterally. Facet loading was positive on the right side. Her left forearm is in a soft Isael wrap. Assessment and Plan (1) Spondylosis of lumbar region without myelopathy or radiculopathy Narrative/Plan: Plan of Care 1. Medications: I will refill the patient's medications today. She is taking benzodiazepines. She is aware the dangers of this and her physician is weaning her off of this. She has weaned down on her Joaquin to 90 tablets. She did request increase his medicine today secondary to her wrist fracture however I do believe her wrist pain will be contained once she sees her doctor tomorrow and is able to have this casted. Therefore I am not going to increase her medication this month. She is scheduled to have a radio Marisela ablation on the right side which I believe will help control her leg pain and therefore for her second months prescription I decreased her amount to 60 tablets. I have reviewed the patient's MAPS report and it reveals expected results. Patient has signed an opiate agreement as well as opiate consent for treatment in our clinic. They understand the risks and benefits of opiate medications. They are aware of the potential for addiction. 2. Interventions: We'll schedule the patient for a right lumbar radio frequency ablation at the L4, L5 and sacral ala locations 3. Referrals: none 4. Testing: None 5. Psychological: She is not depressed or anxious. Current Visit: Yes Status: Acute Code(s): M47.816 - SPONDYLOSIS W/O MYELOPATHY OR RADICULOPATHY, LUMBAR REGION SNOMED Code(s): 55537347 PQRS Measure Charge Sheet Measure #130: Documentation of Current Meds in Medical Chart: Patient's medications documented in chart Measure #226: Tobacco Use: Screen & Cessation Intervention: Pt screened for tobacco use AND intervention given Measure #111: Pneumonia Vaccination: Pneumococcal vaccine NOT administered or previously given Measure #47: Advance Care Plan: Advance care planning discussed & documented, pt chose/unable to give Measure #412: Opioid Treatment Agreement: Documented signed opioid trtmnt agreemnt min once during opioid trtmnt Measure #408: Opioid Therapy Follow-up Evaluation: Patient had f/u eval minimum every 3 months during opioid therapy Measure #317: Preventitive Care & Scrn High Bld Press & F/U: Pre-hypertensive or hypertensive BP documented, pt will f/u with PCP Measure #128: Body Mass Index (BMI) Screening & Follow-up: BMI documented ABOVE normal parameters - f/u documented Measure #131: Pain Assessment & Follow-up: Pain positive & plan documented Measure #431: Unhealthy Alcohol Use Preventative Care & Scrn: Patient not identified as an unhealthy alcohol user PQRS Narrative: Smoking Status Current every day smoker Do You Want the Pneumonia No Vaccine AT THIS TIME? Narcotic Agreement Date Signed 09/08/16 Blood Pressure 164/103 Pain Intensity [Left Wrist] 9 Scale Used Numeric (1 - 10) Hx Alcohol Use (MH) Yes: rare Home Medications: Ambulatory Orders clonazePAM [KlonoPIN] 0.5 mg PO BID 02/24/17 Cholecalciferol [Vitamin D3] 1,000 unit PO DAILY 06/10/17 Dextroamphetamine/Amphetamine [Adderall] 30 mg PO QAM 07/30/17 Doxepin HCl 100 mg PO HS 07/30/17 Omeprazole 20 mg PO BID 07/30/17 Atenolol [Tenormin] 50 mg PO DAILY 08/14/17 Aspirin 81 mg PO DAILY #30 chew 08/15/17 Albuterol Inhaler [Ventolin Hfa Inhaler] 2 puff INHALATION RT-Q6H PRN 08/28/17 Gabapentin [Neurontin] 400 mg PO TID #90 cap 12/23/17 HYDROcodone/APAP 10-325MG [Joaquin 10-325] 1 tab PO Q6H PRN #60 tab 12/23/17 HYDROcodone/APAP 10-325MG [Joaquin 10-325] 1 tab PO Q6H PRN #90 tab 12/23/17 Controlled Substance Measures - Controlled Substance Measures Is patient prescribed a controlled substance at discharge?: Yes When asked, does pt state using other controlled substances?: Yes If prescribed controlled substance>3 days was MAPS reviewed?: Yes If Rx opioid, was Start Talking consent form obtained?: Yes If opioid is for acute pain is fill amount 7 days or less?: Yes Was information provided regarding opioid addiction?: Yes
== END | disposition home or self-care (01) ==
LOC: PNWHC3 13:01
PROVIDERS: ATTEND Pain Medicine Pain Medicine
DX: M47.816 Spondylosis without myelopathy or radiculopathy, lumbar region (principal); F17.200 Nicotine dependence, unspecified, uncomplicated; Z79.899 Other long term (current) drug therapy; Z79.82 Long term (current) use of aspirin; Z79.891 Long term (current) use of opiate analgesic
CPT/HCPCS: 99211

== ENCOUNTER → 2018-01-17 | Day surgery (SDC) | payer OTHER ==
[2018-01-11 10:51] VITALS: BMI 28.9
[~2018-01-17] MED LIST changes: +DIAZEPAM 5 MG/ML 2 ML INJ IVP STA; +IV FLUID CONTINUATION 1,000 ML IV ONE; +fentaNYL (PF) 50 MCG/ML 2 ML AMP IVP ONE; +fentaNYL (PF) 50 MCG/ML 2 ML AMP IVP STA
[2018-01-17 10:30] VITALS: TEMP 98.1
--- NOTE | 2018-01-17 10:53 | P.OP ---
Date of Procedure: 01/17/18 Surgeon: Jose Teran Description of Procedure: Procedure(s) Performed: PREOPERATIVE DIAGNOSIS: 1. Lumbar Spondylosis with Facet Arthropathy without myelopathy. 2-. Lumber degenerative disc disease POSTOPERATIVE DIAGNOSIS: same PROCEDURES: Right lumbar Radiofrequency thermocoagulation, L4,L5, Sacral Ala medial branch, with fluoroscopic guidance SURGEON: Jose Teran MD. ANESTHESIA: Moderate sedation with intravenous versed 2 mg and fentanyl 100 mcg and local infiltration with lidocaine 1% 10 ml EBL: Minimal PROCEDURE INDICATION: The patient with low back pain secondary to lumbar facet arthropathy who had more than 50% relief of pain with previous diagnostic lumbar medial branch block with bupivacaine. PROCEDURE DESCRIPTION / TECHNIQUE: The patient was seen and identified in the preoperative area. Risks, benefits, complications, including but not limited to risk of infection ,bleeding , allergic reactions to the medications and incomplete pain relief , and alternatives were discussed with the patient, the patient agreed to proceed with the procedure and signed the consent. IV was started. The operative site was marked. Patient was taken to the OR and time out was completed. The patient was placed in the prone position on the procedure table. The lumber area was prepped and draped in the usual sterile fashion. . Vital signs were closely monitored during the procedure .IV sedation was used during the procedure to decrease patients anxiety. Using AP and then oblique fluoroscopy, the ``eye of the Fernando dog corresponding to the connection between the superior and transverse articular processes of the above-mentioned levels were identified, marked, and localized with 1% lidocaine. Subsequently, a 18 -qr radiofrequency cannula with a 10-mm active tip was advanced guided by fluoroscopy to each of the ``eyes of the Fernando dog at each site then underwent sensory testing at 50 Hz and 0 to 1 volt and motor testing at 2.5 Hz and 0 to 3 volt with local stimulation, but no radicular symptoms down the legs. Then the sites underwent radiofrequency thermocoagulation at 80 degrees celsius for 90 seconds after injecting 0.5 ml of PF lidocaine 1%. Then After the thermocoagulation done , 1 ml of the block solution containing depomedrol 40 mg and 4 ml of maraine 0.5 % was injected at each levels after negative aspiration of CSF and blood and with no paresthesias. Cannulas were retracted while injecting lidocaine 1% until the needle is out.. At the end of the procedure, the skin was cleansed and bandages were applied. COMPLICATIONS: No acute complications. DISPOSITION / PLANS: The patient was placed in a supine position and transferred to the recovery area in a stable condition for observation and was discharged from the recovery room after meeting discharge criteria. Home discharge instructions given to the patient by the staff. The patient was reexamined prior to discharge. She will follow-up in the clinic for medication management..
--- NOTE | 2018-01-17 11:25 | FL ---
Fluoroscopy HISTORY: Pain 8 seconds fluoroscopy time supplied to the referring clinician. 2 intraoperative C-arm images docume nt the procedure. See dictated report from anesthesia.
[2018-01-17 11:45] VITALS: RESP 18
[2018-01-17 13:26] VITALS: BP 122/80; PULSE 97
== END ==
LOC: ORPAIN 10:09
PROVIDERS: ATTEND Pain Medicine Pain Medicine
DX: M47.816 Spondylosis without myelopathy or radiculopathy, lumbar region (principal); M51.36 Other intervertebral disc degeneration, lumbar region
CPT/HCPCS: 81025; 64635; 64636; J2250; J1030; J2001; J3010; 99152

== ENCOUNTER 2018-01-18 13:04 | Emergency (ER) | payer OTHER ==
[2018-01-18 13:09] VITALS: RESP 18
[2018-01-18] MEDS ORDERED: HYDROmorphone 0.5 MG/0.5 ML SYRINGE IM STA (13:24)
[2018-01-18] MEDS ORDERED: DIAZEPAM 5 MG/ML 2 ML INJ IM ONE (13:24)
--- NOTE | 2018-01-18 13:38 | ED ---
Back Pain HPI - General Chief Complaint: Back Pain/Injury Stated Complaint: BACK PAIN, POST INJECTION Time Seen by Provider: 01/18/18 13:13 Source: patient Limitations: no limitations - History of Present Illness Initial Comments: 47-year-old female patient presents to the emergency department today for evaluation of right lower back pain. Patient states that she had nerve ablation performed yesterday with Dr. Daugherty. Patient states that since the procedure she has been having increased and severe low back pain. Patient states that the pain comes and goes and feels sharp and stabbing. Patient states that she had 100.0 temperature this morning however has had no further temperatures. States that she did take and [place] 10 at 7 this morning but it has not really helped her pain at all. Patient states she did call Dr. Daugherty 's office and was told to come here for pain control. Patient denies any radiation of the pain down her legs. Denies any loss of bowel or bladder control. Denies any numbness or tingling in her lower extremities. Denies any saddle anesthesia. Patient denies any recent rash, chills, shortness breath, chest pain, abdominal pain, nausea, vomiting, diarrhea, constipation, dizziness , weakness, hematuria, dysuria, urinary urgency, urinary frequency, headache, visual changes, or any other complaints. - Related Data Home Medications Medication Instructions Recorded Confirmed clonazePAM [KlonoPIN] 0.5 mg PO BID 02/24/17 01/18/18 Cholecalciferol [Vitamin D3] 1,000 unit PO DAILY 06/10/17 01/18/18 Dextroamphetamine/Amphetamine 30 mg PO QAM 07/30/17 01/18/18 [Adderall] Doxepin HCl 100 mg PO HS 07/30/17 01/18/18 Omeprazole 20 mg PO BID 07/30/17 01/18/18 Atenolol [Tenormin] 50 mg PO DAILY 08/14/17 01/18/18 Albuterol Inhaler [Ventolin Hfa 2 puff INHALATION Q6H PRN 08/28/17 01/18/18 Inhaler] Previous Rx's Medication Instructions Recorded Aspirin 81 mg PO DAILY #30 chew 08/15/17 Gabapentin [Neurontin] 400 mg PO TID #90 cap 12/23/17 HYDROcodone/APAP 10-325MG [[place] 1 tab PO Q6H PRN #60 tab 12/23/17 10-325] Allergies Allergy/AdvReac Type Severity Reaction Status Date / Time ibuprofen Allergy Rash/Hives Verified 01/18/18 13:09 ketorolac [From Toradol] Allergy THROAT Verified 01/18/18 13:09 Swelling morphine Allergy Nausea Verified 01/18/18 13:09 shellfish derived Allergy Anaphylaxis Verified 01/18/18 13:09 tramadol [From Ultram] Allergy Rash/Hives Verified 01/18/18 13:09 Review of Systems ROS Statement: Those systems with pertinent positive or pertinent negative responses have been documented in the HPI. ROS Other: All systems not noted in ROS Statement are negative. Past Medical History Past Medical History: Myocardial Infarction ([place]) Additional Past Medical History / Comment(s): chronic back pain, lumbar degenerative disc disease, insomnia, shingles, hiatal hernia, kidney stones. TIA , embolism interstial, cyst of pancreas Last Myocardial Infarction Date:: 08/27/2016 History of Any Multi-Drug Resistant Organisms: MRSA Date of last positivie culture/infection: 09/22/2009 MDRO Source:: neck Past Surgical History: Appendectomy, Back Surgery, Section, Cholecystectomy Additional Past Surgical History / Comment(s): Cervical spine fusion with insertion of a metal plate, EGD, colonoscopy, hiatal hernia, lumbar rhizotomy and radiofrequency ablation Past Anesthesia/Blood Transfusion Reactions: No Reported Reaction Additional Past Anesthesia/Blood Transfusion Reaction / Comment(s): CLAUSTROPHOBIA Past Psychological History: ADD/ADHD, Anxiety Smoking Status: Current every day smoker Past Alcohol Use History: Rare Past Drug Use History: None Reported - Past Family History Father Family Medical History: Cancer Additional Family Medical History / Comment(s): Father at age 48 from lung cancer. Mother Family Medical History: Congestive Heart Failure (CHF), CVA/TIA Additional Family Medical History / Comment(s): Mother is alive at age 68. She has suffered from a CVA and has chronic back problems. Patient has 2 brothers and 4 sisters with no major medical problems. General Exam Limitations: no limitations General appearance: alert, in no apparent distress, other (This is a well- developed, well-nourished adult female patient in no acute distress. Vital signs upon presentation are temperature 97.4F, pulse 108, respirations 18, blood pressure 138/92, pulse ox 100% on room air.) Eye exam: Present: normal appearance, PERRL, EOMI. Absent: scleral icterus, conjunctival injection, periorbital swelling ENT exam: Present: normal exam, normal oropharynx, mucous membranes moist Respiratory exam: Present: normal lung sounds bilaterally. Absent: respiratory distress, wheezes, rales, rhonchi, stridor Cardiovascular Exam: Present: regular rate, normal rhythm, normal heart sounds. Absent: systolic murmur, diastolic murmur, rubs, gallop, clicks GI/Abdominal exam: Present: soft, normal bowel sounds. Absent: distended, tenderness, guarding, rebound, rigid Extremities exam: Present: normal inspection, full ROM, normal capillary refill , other (Skin to the legs is pink, warm, and dry. Cap refills less than 3 seconds. Post tibial pulses are 2+ and equal bilaterally.). Absent: tenderness , pedal edema, joint swelling, calf tenderness Back exam: Present: normal inspection, other (There is some right lower paraspinal tenderness. Small punctures noted with no surrounding erythema, swelling, or warmth. No evidence of fluid collection.) Neurological exam: Present: alert, oriented X3, CN II-XII intact Psychiatric exam: Present: normal affect, normal mood Skin exam: Present: warm, dry, intact, normal color. Absent: rash Course Vital Signs 01/18/18 01/18/18 13:05 13:45 Temperature 97.4 F L 98.0 F Pulse Rate 108 H 95 Respiratory 18 18 Rate Blood Pressure 138/92 140/87 O2 Sat by Pulse 100 98 Oximetry Medical Decision Making - Medical Decision Making 47-year-old female patient presents the emergency department today for evaluation of right lower back pain after having a nerve ablation performed with Dr. Daugherty yesterday. Physical examination is relatively unremarkable, she does have some right lower paraspinal tenderness however no evidence of infection. No evidence of cellulitis or abscess formation. Patient is afebrile. She is in quite a bit of pain so we did give Valium and Dilaudid here in the department. She does have [place] 10 as well as Klonopin at home so do not feel comfortable providing any further prescriptions. She is instructed to follow-up with Dr. Daugherty as soon as possible. Return parameters were discussed in detail. She verbalizes understanding and agrees with this plan. Disposition Clinical Impression: Acute exacerbation of chronic low back pain Disposition: HOME SELF-CARE Condition: Good Instructions: Acute Low Back Pain (ED), Chronic Back Pain (ED) Additional Instructions: Apply warm moist heat to the low back. Continue taking home pain medications as directed. Follow-up with Dr. Daugherty as soon as possible. Return here immediately for any new, worsening, or concerning symptoms. Is patient prescribed a controlled substance at d/c from ED?: No Referrals: Estelle Butterfield DO [Primary Care Provider] - 1-2 days Axel Daugherty MD [STAFF PHYSICIAN] - 1-2 days Time of Disposition: 13:36
[2018-01-18 13:46] VITALS: BP 140/87; PULSE 95; TEMP 98
== END 2018-01-18 13:45 | disposition home or self-care (01) ==
LOC: EC 13:04
DX: G89.29 Other chronic pain (principal); M54.5 Low back pain; I25.2 Old myocardial infarction; F90.9 Attention-deficit hyperactivity disorder, unspecified type; F41.9 Anxiety disorder, unspecified; F17.200 Nicotine dependence, unspecified, uncomplicated; Z86.14 Personal history of Methicillin resistant Staphylococcus aureus infection; Z79.899 Other long term (current) drug therapy; Z88.5 Allergy status to narcotic agent; Z88.6 Allergy status to analgesic agent; Z91.013 Allergy to seafood
CPT/HCPCS: 99283; 96372 ×2; J3360; J1170

== ENCOUNTER 2018-01-19 00:49 | Emergency (ER) | payer OTHER ==
[2018-01-19 00:55] VITALS: RESP 18
[2018-01-19] MEDS ORDERED: HYDROmorphone 0.5 MG/0.5 ML SYRINGE IM STA (01:36)
[2018-01-19] MEDS ORDERED: DIAZEPAM 5 MG TAB PO STA (01:36)
--- NOTE | 2018-01-19 01:38 | ED ---
General Adult HPI - General Chief complaint: Back Pain/Injury Stated complaint: Lower Rt Back Pain Time Seen by Provider: 01/19/18 00:56 Source: patient, RN notes reviewed Mode of arrival: ambulatory Limitations: no limitations - History of Present Illness Initial comments: Patient 47-year-old female presented to the emergency room today with a chief complaint of right-sided back pain. She does admit that she had an ablation done 2 days ago. Was seen here in the emergency room earlier today. Was given pain medication and a muscle relaxer and this was feeling better. She states that she woke up still having pain. She states have an appointment with her doctor tomorrow. Patient admits to tenderness locally to the right side and lower back. Does admit to some mild radiation into the hip area. Denies any bowel or bladder incontinence or retention. Denies any saddle anesthesia. She does admit that she's had pain radiating to the right leg in the past this is not new. Patient states feels like something is sticking in her back. She states she gets random spasms making the pain worse. Patient denies any recent fever, chills, shortness of breath, chest pain, abdominal pain, nausea or vomiting, numbness or tingling, dysuria or hematuria, constipation or diarrhea, headaches or visual changes, or any other complaints. - Related Data Home Medications Medication Instructions Recorded Confirmed clonazePAM [KlonoPIN] 0.5 mg PO BID 02/24/17 01/19/18 Cholecalciferol [Vitamin D3] 1,000 unit PO DAILY 06/10/17 01/19/18 Dextroamphetamine/Amphetamine 30 mg PO QAM 07/30/17 01/19/18 [Adderall] Doxepin HCl 100 mg PO HS 07/30/17 01/19/18 Omeprazole 20 mg PO BID 07/30/17 01/19/18 Atenolol [Tenormin] 50 mg PO DAILY 08/14/17 01/19/18 Albuterol Inhaler [Ventolin Hfa 2 puff INHALATION Q6H PRN 08/28/17 01/19/18 Inhaler] Previous Rx's Medication Instructions Recorded Aspirin 81 mg PO DAILY #30 chew 08/15/17 Gabapentin [Neurontin] 400 mg PO TID #90 cap 12/23/17 HYDROcodone/APAP 10-325MG [[place] 1 tab PO Q6H PRN #60 tab 12/23/17 10-325] Allergies Allergy/AdvReac Type Severity Reaction Status Date / Time ibuprofen Allergy Rash/Hives Verified 01/19/18 00:55 ketorolac [From Toradol] Allergy THROAT Verified 01/19/18 00:55 Swelling morphine Allergy Nausea Verified 01/19/18 00:55 shellfish derived Allergy Anaphylaxis Verified 01/19/18 00:55 tramadol [From Ultram] Allergy Rash/Hives Verified 01/19/18 00:55 Review of Systems ROS Statement: Those systems with pertinent positive or pertinent negative responses have been documented in the HPI. ROS Other: All systems not noted in ROS Statement are negative. Past Medical History Past Medical History: Myocardial Infarction ([place]) Additional Past Medical History / Comment(s): chronic back pain, lumbar degenerative disc disease, insomnia, shingles, hiatal hernia, kidney stones. TIA , embolism interstial, cyst of pancreas Last Myocardial Infarction Date:: 08/27/2016 History of Any Multi-Drug Resistant Organisms: MRSA Date of last positivie culture/infection: 09/22/2009 MDRO Source:: neck Past Surgical History: Appendectomy, Back Surgery, Section, Cholecystectomy Additional Past Surgical History / Comment(s): Cervical spine fusion with insertion of a metal plate, EGD, colonoscopy, hiatal hernia, lumbar rhizotomy and radiofrequency ablation Past Anesthesia/Blood Transfusion Reactions: No Reported Reaction Additional Past Anesthesia/Blood Transfusion Reaction / Comment(s): CLAUSTROPHOBIA Past Psychological History: ADD/ADHD, Anxiety Smoking Status: Current every day smoker Past Alcohol Use History: Rare Past Drug Use History: None Reported - Past Family History Father Family Medical History: Cancer Additional Family Medical History / Comment(s): Father at age 48 from lung cancer. Mother Family Medical History: Congestive Heart Failure (CHF), CVA/TIA Additional Family Medical History / Comment(s): Mother is alive at age 68. She has suffered from a CVA and has chronic back problems. Patient has 2 brothers and 4 sisters with no major medical problems. General Exam - General Exam Comments Initial Comments: General: The patient is awake and alert, in no distress, and does not appear acutely ill. Eye: Pupils are equal, round and reactive to light, extra-ocular movements are intact. No nystagmus. There is normal conjunctiva bilaterally. No signs of icterus. Ears, nose, mouth and throat: There are moist mucous membranes and no oral lesions. Neck: The neck is supple, there is no tenderness or JVD. Musculoskeletal: Normal ROM. Patient does have some tenderness paravertebral area on the right side of the lower lumbar from L2 to L4. No sign of redness. No swelling. Strength 5/5. Sensation intact. Pulses equal bilaterally 2+. Neurological: A&O x 3. CN II-XII intact, There are no obvious motor or sensory deficits. Coordination appears grossly intact. Speech is normal. Skin: Skin is warm and dry and no rashes or lesions are noted. Psychiatric: Cooperative, appropriate mood & affect, normal judgment. Limitations: no limitations Course Vital Signs 01/19/18 00:52 Temperature 97 F L Pulse Rate 102 H Respiratory 18 Rate Blood Pressure 128/85 O2 Sat by Pulse 100 Oximetry Medical Decision Making - Medical Decision Making Patient's vitals are stable here in emergency room. She has no sign of infection. Options were discussed with patient about further workup of her lab work with a CT of the back. She does have an appointment with her doctor tomorrow. She states that this time she feels comfortable with this follow-up appointment and has declined further evaluation of blood work and CAT scan patient requesting something for pain. She states when she got earlier in the day work well for her and gave her relief. Patient will be given a shot of Dilaudid and 10 mg of Valium by mouth and discharged home to follow-up with the doctor in the morning. Advised return if any symptoms increase or worsen. Disposition Clinical Impression: Low back pain Disposition: HOME SELF-CARE Condition: Good Instructions: Acute Low Back Pain (ED) Additional Instructions: Please follow-up with the doctor tomorrow as discussed. Please return to the emergency room symptoms increase worsen or for any other concerns. Is patient prescribed a controlled substance at d/c from ED?: No Referrals: Estelle Butterfield DO [Primary Care Provider] - 1-2 days Time of Disposition: 01:37
[2018-01-19 01:44] VITALS: BP 101/68; PULSE 88; TEMP 97.5
== END 2018-01-19 01:54 | disposition home or self-care (01) ==
LOC: EC 00:49
DX: M54.5 Low back pain (principal); M25.551 Pain in right hip; R25.2 Cramp and spasm; F41.9 Anxiety disorder, unspecified; F90.9 Attention-deficit hyperactivity disorder, unspecified type; I25.2 Old myocardial infarction; F17.200 Nicotine dependence, unspecified, uncomplicated; Z79.899 Other long term (current) drug therapy; Z88.5 Allergy status to narcotic agent; Z88.6 Allergy status to analgesic agent; Z91.013 Allergy to seafood; Z86.14 Personal history of Methicillin resistant Staphylococcus aureus infection; Z98.890 Other specified postprocedural states
CPT/HCPCS: 99283; 96372; J1170

== ENCOUNTER 2018-01-21 19:42 | Emergency (ER) | payer OTHER ==
[2018-01-21] MEDS ORDERED: methylPREDNISolone SOD SUCCI 125 MG/2 ML VIAL IV STA (20:34)
[2018-01-21 20:58] VITALS: PULSE 95; RESP 16
[2018-01-21 21:13] LABS: Basophils % (A) 0 %; Eosinophils # (A) 0.2 k/uL (0-0.7); Eosinophils % (A) 2 %; HCT 45.9 % (34.0-46.0); HGB 15.3 gm/dL (11.4-16.0); Lymphocytes # (A) 2.2 k/uL (1.0-4.8); Lymphocytes % (A) 23 %; MCH 30.2 pg (25.0-35.0); MCHC 33.2 g/dL (31.0-37.0); MCV 90.9 fL (80.0-100.0); Mean Platelet Volume 6.4; Monocytes # (A) 0.7 k/uL (0-1.0); Monocytes % (A) 7 %; Neutrophils # (A) 6.4 k/uL (1.3-7.7); Neutrophils % (A) 67 %; Platelet Count 430 k/uL (150-450); RBC 5.05 m/uL (3.80-5.40); RDW 13.5 % (11.5-15.5); WBC 9.5 k/uL (3.8-10.6)
--- NOTE | 2018-01-21 21:19 | ED ---
Back Pain HPI - General Chief Complaint: Back Pain/Injury Stated Complaint: Back pain Time Seen by Provider: 01/21/18 20:20 Source: patient Limitations: no limitations - History of Present Illness Initial Comments: 47-year-old female patient presents to the emergency department today for evaluation of right lower back pain that radiates down the right leg.. Patient states that she had nerve ablation performed 01/18/[address] Daugherty. Patient states that since the procedure she has been having increased and severe low back pain. Patient states that the pain comes and goes and feels sharp and stabbing. States it feels like it is spasming. This is her third visit for the same over the last 3 days. Patient has been taking [place] 10 at home without relief of symptoms. Patient states she did call Dr. Daugherty's office and was told to come here for pain control. Patient states that she does generally have radiation of pain down her right leg however it is a little bit worse today. States the pain radiates down the right posterior thigh to the knee. Denies any loss of bowel or bladder control. Denies any numbness or tingling in her lower extremities. Denies any saddle anesthesia. Patient denies any recent rash, fever, chills, shortness breath, chest pain, abdominal pain, nausea, vomiting, diarrhea, constipation, dizziness, weakness, hematuria, dysuria, urinary urgency, urinary frequency, headache, visual changes, or any other complaints. Patient did have an appointment with Dr. Daugherty yesterday, he stated that she needed to give a time, he did not start her on any new prescriptions. - Related Data Home Medications Medication Instructions Recorded Confirmed clonazePAM [KlonoPIN] 0.5 mg PO BID 02/24/17 01/21/18 Cholecalciferol [Vitamin D3] 1,000 unit PO DAILY 06/10/17 01/21/18 Dextroamphetamine/Amphetamine 30 mg PO QAM 07/30/17 01/21/18 [Adderall] Doxepin HCl 100 mg PO HS 07/30/17 01/21/18 Omeprazole 20 mg PO BID 07/30/17 01/21/18 Atenolol [Tenormin] 50 mg PO DAILY 08/14/17 01/21/18 Albuterol Inhaler [Ventolin Hfa 2 puff INHALATION RT-Q6H PRN 08/28/17 01/21/18 Inhaler] Gabapentin [Neurontin] 400 mg PO TID PRN 01/21/18 01/21/18 HYDROcodone/APAP 10-325MG [[place] 1 tab PO TID 01/21/18 01/21/18 10-325] Previous Rx's Medication Instructions Recorded Aspirin 81 mg PO DAILY #30 chew 08/15/17 Allergies Allergy/AdvReac Type Severity Reaction Status Date / Time ibuprofen Allergy Rash/Hives Verified 01/21/18 20:12 ketorolac [From Toradol] Allergy Anaphylaxis Verified 01/21/18 20:12 shellfish derived Allergy Anaphylaxis Verified 01/21/18 20:12 tramadol [From Ultram] Allergy Rash/Hives Verified 01/21/18 20:12 morphine AdvReac Nausea Verified 01/21/18 20:12 Review of Systems ROS Statement: Those systems with pertinent positive or pertinent negative responses have been documented in the HPI. ROS Other: All systems not noted in ROS Statement are negative. Past Medical History Past Medical History: Myocardial Infarction ([place]) Additional Past Medical History / Comment(s): chronic back pain, lumbar degenerative disc disease, insomnia, shingles, hiatal hernia, kidney stones. TIA , embolism interstial, cyst of pancreas Last Myocardial Infarction Date:: 08/27/2016 History of Any Multi-Drug Resistant Organisms: MRSA Date of last positivie culture/infection: 09/22/2009 MDRO Source:: neck Past Surgical History: Appendectomy, Back Surgery, Section, Cholecystectomy Additional Past Surgical History / Comment(s): Cervical spine fusion with insertion of a metal plate, EGD, colonoscopy, hiatal hernia, lumbar rhizotomy and radiofrequency ablation Past Anesthesia/Blood Transfusion Reactions: No Reported Reaction Additional Past Anesthesia/Blood Transfusion Reaction / Comment(s): CLAUSTROPHOBIA Past Psychological History: ADD/ADHD, Anxiety Smoking Status: Current some day smoker Past Alcohol Use History: Rare Past Drug Use History: None Reported - Past Family History Father Family Medical History: Cancer Additional Family Medical History / Comment(s): Father at age 48 from lung cancer. Mother Family Medical History: Congestive Heart Failure (CHF), CVA/TIA Additional Family Medical History / Comment(s): Mother is alive at age 68. She has suffered from a CVA and has chronic back problems. Patient has 2 brothers and 4 sisters with no major medical problems. General Exam Limitations: no limitations General appearance: alert, in no apparent distress Eye exam: Present: normal appearance, PERRL, EOMI. Absent: scleral icterus, conjunctival injection, periorbital swelling ENT exam: Present: normal exam, normal oropharynx, mucous membranes moist Respiratory exam: Present: normal lung sounds bilaterally. Absent: respiratory distress, wheezes, rales, rhonchi, stridor Cardiovascular Exam: Present: regular rate, normal rhythm, normal heart sounds. Absent: systolic murmur, diastolic murmur, rubs, gallop, clicks GI/Abdominal exam: Present: soft, normal bowel sounds. Absent: distended, tenderness, guarding, rebound, rigid Extremities exam: Present: normal inspection, full ROM, normal capillary refill , other (Skin to the lower extremities is pink, warm, and dry. Cap refills less than 3 seconds. Pedal and posttibial pulses are 2+ and equal bilaterally.) . Absent: tenderness, pedal edema, joint swelling, calf tenderness Back exam: Present: normal inspection, other (Patient has right lower back tenderness. No spinal tenderness. There is no erythema, swelling, or evidence of infection.). Absent: vertebral tenderness Neurological exam: Present: alert, oriented X3, CN II-XII intact Psychiatric exam: Present: normal affect, normal mood Skin exam: Present: warm, dry, intact, normal color. Absent: rash Course Vital Signs 01/21/18 01/21/18 01/21/18 19:57 20:57 22:03 Temperature 98.4 F 98.1 F Pulse Rate 113 H 95 95 Respiratory 20 16 16 Rate Blood Pressure 140/91 148/88 143/93 O2 Sat by Pulse 100 100 100 Oximetry Medical Decision Making - Medical Decision Making 47-year-old female patient presents to the emergency department today for evaluation of right lower back pain with radiation down the right leg since having a nerve ablation performed a few days ago. Physical examination does reveal tenderness over the right lower back with no evidence of erythema, swelling, abscess or other signs of infection. There is no spinal tenderness. Patient is afebrile. We did perform CBC and CRP, all levels are normal. I did discuss results and findings with the patient. She does have [place] at home. She'll be given 1 dose of pain medication and a muscle relaxer here in the department. She was informed that any further pain medications would have to come from her primary care physician and that we would not be giving any further medication for chronic pain symptoms. She is instructed to follow-up with Dr. Tejeda her he or her primary care physician for further evaluation in 1-2 days. Return parameters discussed in detail. She verbalizes understanding and agrees with this plan. - Lab Data Result diagrams: 01/21/18 20:48 Lab Results 01/21/18 01/21/18 Range/Units 20:48 20:48 WBC 9.5 (3.8-10.6) k/uL RBC 5.05 (3.80-5.40) m/uL Hgb 15.3 (11.4-16.0) gm/dL Hct 45.9 (34.0-46.0) % MCV 90.9 (80.0-100.0) fL MCH 30.2 (25.0-35.0) pg MCHC 33.2 (31.0-37.0) g/dL RDW 13.5 (11.5-15.5) % Plt Count 430 (150-450) k/uL Neutrophils % 67 % Lymphocytes % 23 % Monocytes % 7 % Eosinophils % 2 % Basophils % 0 % Neutrophils # 6.4 (1.3-7.7) k/uL Lymphocytes # 2.2 (1.0-4.8) k/uL Monocytes # 0.7 (0-1.0) k/uL Eosinophils # 0.2 (0-0.7) k/uL Basophils # 0.0 (0-0.2) k/uL C-Reactive Protein 7.9 (<10.0) mg/L Disposition Clinical Impression: Low back pain Disposition: HOME SELF-CARE Condition: Good Instructions: Acute Low Back Pain (ED), Chronic Back Pain (ED) Additional Instructions: Continue taking home pain medications as directed. Continue applying heat to the low back 20 minutes at a time at least 4 times daily. Perform gentle range of motion exercises. Follow-up with your pain specialist as well as her primary care physician within one to 2 days. Return immediately for any new, worsening, or concerning symptoms. Is patient prescribed a controlled substance at d/c from ED?: No Referrals: Plumer,Estelle, DO [Primary Care Provider] - 1-2 days Axel Daugherty MD [STAFF PHYSICIAN] - 1-2 days Time of Disposition: 21:50
[2018-01-21] MEDS ORDERED: HYDROmorphone 0.5 MG/0.5 ML SYRINGE IM STA (21:49)
[2018-01-21 22:04] VITALS: BP 143/93; TEMP 98.1
== END 2018-01-21 22:12 | disposition home or self-care (01) ==
LOC: EC 19:42
DX: M54.5 Low back pain (principal); M51.36 Other intervertebral disc degeneration, lumbar region; I25.2 Old myocardial infarction; F90.9 Attention-deficit hyperactivity disorder, unspecified type; F41.9 Anxiety disorder, unspecified; F17.200 Nicotine dependence, unspecified, uncomplicated; Z86.73 Personal history of transient ischemic attack (TIA), and cerebral infarction without residual deficits; Z86.14 Personal history of Methicillin resistant Staphylococcus aureus infection; Z98.890 Other specified postprocedural states; Z79.891 Long term (current) use of opiate analgesic; Z79.899 Other long term (current) drug therapy; Z88.6 Allergy status to analgesic agent; Z91.013 Allergy to seafood; Z88.5 Allergy status to narcotic agent
CPT/HCPCS: 36415; 85025; 86140; 99283; 96374; 96372; J2930; J1170

== ENCOUNTER → 2018-02-02 | Outpatient (CLI) | payer OTHER ==
[2018-02-02 14:10] VITALS: BP 139/93; PULSE 97; RESP 16
--- NOTE | 2018-02-02 15:31 | P.PAINPG ---
Subjective Progress Note Date: 02/02/18 This is follow-up visit for this patient with a history of severe and chronic low back pain secondary to lumbar degenerative disc disease, lumbar facet arthropathy, We have done an interventional pain procedure radiofrequency ablation of the medial branch lumbar area on the right side which was done a few weeks ago, and she reported that after the radiofrequency should start having severe low back pain with radiation to the right lower extremity, the intensity of the pain interfering with her quality of life, The patient currently on [place] 10/325 every 6 hours and is not helping to improve her pain Patient denies any side effect of the medication , patient denies any excessive drowsiness or sleepiness, patient denies any suicidal ideation, Patient reported that the current medication is helping to control the pain and improve the activity of daily livings, Patient denies any motor or sensory deficit, denies any change in the bowel movement or urination, patient denies any fever or night sweats. Patient here today for follow-up visit Objective - Vital Signs Vital signs: Vital Signs Temp Pulse 97 02/02/18 14:00 Resp 16 02/02/18 14:00 BP 139/93 02/02/18 14:00 Pulse Ox 99 02/02/18 14:00 Intake & Output 02/01/18 02/02/18 02/02/18 18:59 06:59 18:59 Weight 67.132 kg - Exam Physical Examinations : 1-Constitutiona : Cooperative , not in acute distress . 2-HEENT : nech ; supple , no Lymphadenopathy , normal thyroid size . eyes : no ptosis , no icterus , no photophobia . ENT : normal of hearing , normal oropharynx , no Thrush . 3- Respiratory : Chest clear to auscultations Bilaterally , no wheezing , no Rhonchi . 4- Cardiovascular : regular rate and rhythem , S1 , S2 , no S3 , no S4. 5- Gastrointestinal : abdomen soft no tenderness , bowel sounds , no organomegally . 6- Genitourinary : Defferred . 7- neurologic : Cranial nerve II to XII intact , no focal neurological deffecit . 8-psychatric : alert , oriented X 3 , appropriate affect , intact judgment and insight . 9-Lymphatic : no Lymphadenopathy . 10- musculoskeltal : Lumber spine = normal moter stegnth lower extremities ,thigh and legs .5/5 on the left , 4/5 on the right side deep tendon reflexes : normal Knee Jerk , normal ankle Jerk . lumber facet Loading Test positive strait leg raising test positive at 30 degree Right , positve at 30 degree Left Fabere test positive Right and positive Left Sever tenderness over the Sacroiliac joint on the Right The injection site looked okay, and no erythema, and no swelling, no discharge Assessment and Plan Plan: Assessment and plan= chronic low back pain secondary to lumbar degenerative disc disease , lumbar spondylosis with lumbar facet arthropathy . Currently patient complaining of severe low back pain mostly in the right side, status post radiofrequency ablation of the medial branch lumbar area on the right side Patient most likely having right iliolumbar ligament neuralgia , and patient having also some radicular symptoms. Patient will be good candidate to have lumbar epidural steroid injection right side paramedian approach at L5-S1 levels, and also she will be good candidate to have right iliolumbar ligaments steroid injection chronic and current use of high-risk medication (opioids) Patient denies any side effects of the current pain medication and the current treatment/medication helping the patient to do activity of daily living , Diagnoses, prognosis, treatment options, including but not limited to physical therapy, medication management, interventional therapies, and surgery, were discussed with the patient All the questions answered The narcotic consent was signed and patient agreed and understood the side effects and complications of opioid treatment. Patient signed the narcotic agreement, and was orally counseled, not to overuse, not to abuse, not to Divert , not tp sell pain medication, and to take it as prescribed only, Patient was counseled not to drive or operate heavy equipment while using narcotic medication, and advised not to use alcohol or any Illicit drugs while using the narcotis, the patient's verbalized understanding that lack of compliance with any of the above instructions, will likely to cause discharge from, the pain service, not to renew his narcotic prescriptions Medication managements= patient will be given prescription for Percocet 7.5/ 325 every 6 hours, and will discontinue [place] patient had no benefit from [place] , continue Neurontin , Time with Patient: Less than 30 PQRS Measure Charge Sheet Measure #130: Documentation of Current Meds in Medical Chart: Patient's medications documented in chart Measure #226: Tobacco Use: Screen & Cessation Intervention: Pt not a tobacco user Measure #111: Pneumonia Vaccination: Pneumococcal vaccine administered or previously received Measure #47: Advance Care Plan: Advance care planning discussed & documented, plan or surrogate given Measure #412: Opioid Treatment Agreement: Documented signed opioid trtmnt agreemnt min once during opioid trtmnt Measure #408: Opioid Therapy Follow-up Evaluation: Patient had f/u eval minimum every 3 months during opioid therapy Measure #317: Preventitive Care & Scrn High Bld Press & F/U: Normal blood pressure, f/u not required Measure #128: Body Mass Index (BMI) Screening & Follow-up: BMI documented ABOVE normal parameters - f/u documented Measure #131: Pain Assessment & Follow-up: Pain positive & plan documented, Follow-up scheduled Measure #431: Unhealthy Alcohol Use Preventative Care & Scrn: Patient not identified as an unhealthy alcohol user PQRS Narrative: Smoking Status Current some day smoker Do You Want the Pneumonia No Vaccine AT THIS TIME? Narcotic Agreement Date Signed 09/08/16 Blood Pressure 139/93 Pain Intensity [Right Lower 10 Back] Scale Used Numeric (1 - 10) Hx Alcohol Use (MH) Yes: rare Home Medications: Ambulatory Orders clonazePAM [KlonoPIN] 0.5 mg PO BID 02/24/17 Cholecalciferol [Vitamin D3] 1,000 unit PO DAILY 06/10/17 Dextroamphetamine/Amphetamine [Adderall] 30 mg PO QAM 07/30/17 Doxepin HCl 100 mg PO HS 07/30/17 Omeprazole 20 mg PO BID 07/30/17 Atenolol [Tenormin] 50 mg PO DAILY 08/14/17 Aspirin 81 mg PO DAILY #30 chew 08/15/17 Albuterol Inhaler [Ventolin Hfa Inhaler] 2 puff INHALATION RT-Q6H PRN 08/28/17 Gabapentin [Neurontin] 400 mg PO TID #90 cap 02/02/18 oxyCODONE HCL/ACETAMINOPHEN [Percocet 7.5-325 mg] 1 tab PO Q6HR PRN 30 Days # 120 tab 02/02/18 oxyCODONE HCL/ACETAMINOPHEN [Percocet 7.5-325 mg] 1 tab PO Q6HR PRN 30 Days # 120 tab 02/02/18 Controlled Substance Measures - Controlled Substance Measures Is patient prescribed a controlled substance at discharge?: Yes When asked, does pt state using other controlled substances?: Yes If prescribed controlled substance>3 days was MAPS reviewed?: Yes If Rx opioid, was Start Talking consent form obtained?: Yes If opioid is for acute pain is fill amount 7 days or less?: No Was information provided regarding opioid addiction?: Yes
== END | disposition home or self-care (01) ==
LOC: PNWHC3 12:56
PROVIDERS: ATTEND Specialist
DX: G89.29 Other chronic pain (principal); M51.36 Other intervertebral disc degeneration, lumbar region; M47.816 Spondylosis without myelopathy or radiculopathy, lumbar region; M46.96 Unspecified inflammatory spondylopathy, lumbar region; F17.200 Nicotine dependence, unspecified, uncomplicated; Z79.899 Other long term (current) drug therapy; Z79.82 Long term (current) use of aspirin; Z79.891 Long term (current) use of opiate analgesic
CPT/HCPCS: 99211

== ENCOUNTER 2018-02-22 06:04 | Day surgery (SDC) | payer OTHER ==
[2018-02-15 15:03] VITALS: BMI 29.8
[~2018-02-22 06:04] MED LIST changes: -DIAZEPAM 5 MG/ML 2 ML INJ IVP STA; -IV FLUID CONTINUATION 1,000 ML IV ONE; -fentaNYL (PF) 50 MCG/ML 2 ML AMP IVP ONE; -fentaNYL (PF) 50 MCG/ML 2 ML AMP IVP STA
[2018-02-22] MEDS ORDERED: LIDOCAINE 1% 20 ML VIAL (10MG/ML) FOR IV START INTRADERMA ONE (07:15)
[2018-02-22 07:31] VITALS: TEMP 97.7
--- NOTE | 2018-02-22 07:32 | P.PCN ---
Date of Procedure: 02/22/18 Surgeon: Jose eTran Description of Procedure: PREOPERATIVE DIAGNOSIS: Right lumbar radicular pain POSTOPERATIVE DIAGNOSIS: Same PROCEDURE Lumbar epidural steroid injection under fluoroscopic guidance at the right L5- S1 level. ANESTHESIA: Local with 1% lidocaine 3 ml and IV sedation with Versed 2 mg EBL: Minimal PROCEDURE INDICATION: This is a pleasant 48-year-old woman with a history of right-sided low back pain as well as right leg pain and right leg weakness. She has pain in her calf and foot. She presents today for lumbar epidural steroid injection.. PROCEDURE DESCRIPTION / TECHNIQUE: The patient was seen and identified in the preoperative area. Risks, benefits , complications including but not limited to infections ,bleeding ,allergic reaction to the medications ,nerve damage and not complete pain relief , and alternatives were discussed with the patient. The patient agreed to proceed with the procedure and signed the consent. IV was started, and vital signs were stable. Patient was taken to the OR and time out was completed. The patient was placed in the prone position on procedure table and a pillow was placed under the abdomen to reduce lumbar lordosis. The lumbosacral area was prepped and draped in the usual sterile fashion.ere closely monitored during the procedure. Conscious sedation was used during the procedure to decrease patients anxiety. Vital signs was monitored during the entire procedure. Using anterior-posterior fluoroscopy, the L5-S1 interlaminar space was identified and the skin over this site was marked and then infiltrated with 1% lidocaine subcutaneously. Subsequently, a 20-gauge Tuohy epidural needle was inserted and advanced toward the epidural space using the Loss of resistance technique and guided by AP and lateral fluoroscopy. The correct needle position in the epidural space was verified with the injection of contrast and observing an excellent epidurogram with the epidural spread of the dye, after negative aspiration for blood and CSF and in the absence of paresthesias. Again after negative aspiration, a 3 ml mixture containing 70 mg of Dexamethasone was injected and a washout of epidurogram was seen. Needle was withdrawn intact , skin was cleansed, and bandages were applied. COMPLICATIONS: None DISPOSITION / PLANS: The patient was placed in a supine position and transferred to the recovery area in a stable condition for observation. There was no evidence of lower extremity motor or sensory deficit after the procedure. Patient was discharged from the recovery room after meeting discharge criteria. Home discharge instructions were given to the patient by the staff. The patient was reexamined prior to discharge. The patient will schedule a follow up in the clinic in 2-4 weeks. The right iliolumbar ligament was then injected with the following technique: While the patient was still in the procedure room suite after the lumbar epidural was complete, the area over the back lateral to the right L5 transverse process to the iliac bone was prepped and draped in usual sterile fashion. A 25-gauge 3-1/2 inch needle was introduced through the skin and subcutaneous tissue slightly lateral to the right lateral tip of the transverse process. The needle was advanced for under fluoroscopic guidance until it contacted the tip of the L5 vertebral body transverse process. A small amount of solution injected was injected after negative aspiration. The needle was then slightly withdrawn and redirected laterally to the exact same depth. After negative aspiration a small amount solution was injected as well. This technique was repeated 4 times moving more laterally towards the iliac bone. A total solution of 3 mL of 0.5% ropivacaine with 10 mg of Depo-Medrol was injected. Needle was withdrawn. A sterile dressing was applied. Patient was then transported to recovery room in stable condition.
[2018-02-22] MEDS ORDERED: IV FLUID CONTINUATION 1,000 ML IV ONE (07:53)
[2018-02-22] MEDS ORDERED: fentaNYL (PF) 50 MCG/ML 2 ML AMP IVP ONE (07:55)
[2018-02-22 07:56] VITALS: RESP 18
[2018-02-22 08:09] VITALS: BP 108/70; PULSE 86
--- NOTE | 2018-02-22 08:27 | FL ---
EXAMINATION TYPE: FL guided pain mgmt statistic DATE OF EXAM: 02/22/2018 HISTORY: Flouroscopy time 2 seconds of fluoroscopy provided. IMPRESSION: 1. Fluoroscopy time.
== END 2018-02-22 08:26 | disposition home or self-care (01) ==
LOC: ORPAIN 06:04
PROVIDERS: ATTEND Pain Medicine Pain Medicine
DX: G89.29 Other chronic pain (principal); M51.16 Intervertebral disc disorders with radiculopathy, lumbar region; Z79.82 Long term (current) use of aspirin; Z79.899 Other long term (current) drug therapy; Z88.5 Allergy status to narcotic agent; Z88.6 Allergy status to analgesic agent; Z88.8 Allergy status to other drugs, medicaments and biological substances
CPT/HCPCS: 81025; 20550; 62323; J2250; J1030; J3010; 99152

== ENCOUNTER 2018-03-16 17:14 | Emergency (ER) | payer OTHER ==
[2018-03-16] MEDS ORDERED: HYDROmorphone 1 MG/ML 1 ML SYRINGE IVP STA (18:09)
[2018-03-16] MEDS ORDERED: SODIUM CHLORIDE 0.9% 1,000 ML IV STA (18:09)
[2018-03-16] MEDS ORDERED: SODIUM CHLORIDE 0.9% 500 ML IV STA (18:09)
[2018-03-16] MEDS ORDERED: diphenhydrAMINE 50 MG/ML 1 ML VIAL IVP STA (18:09)
[2018-03-16] MEDS ORDERED: FAMOTIDINE 20 MG/2 ML VIAL IV STA (18:16)
[2018-03-16] MEDS ORDERED: methylPREDNISolone SOD SUCCI 125 MG/2 ML VIAL IV STA (18:16)
[2018-03-16 18:55] LABS: Basophils % (A) 0 %; Eosinophils # (A) 0.3 k/uL (0-0.7); Eosinophils % (A) 3 %; HCT 44.7 % (34.0-46.0); HGB 14.6 gm/dL (11.4-16.0); Lymphocytes # (A) 2.1 k/uL (1.0-4.8); Lymphocytes % (A) 25 %; MCHC 32.6 g/dL (31.0-37.0); Mean Platelet Volume 6.7; Monocytes % (A) 12 %; Neutrophils % (A) 58 %; Platelet Count 331 k/uL (150-450); RDW 14.8 % (11.5-15.5); WBC 8.5 k/uL (3.8-10.6)
[2018-03-16 18:58] LABS: Appearance,Urine Clear (Clear); Bacteria,Urine Rare /hpf; Bilirubin,Urine Negative (Negative); Blood,Urine Trace (Negative); Color,Urine Colorless; Glucose,Urine (UA) Negative (Negative); Ketones,Urine Negative (Negative); Leukocyte Esterase,Urine Negative (Negative); Nitrite,Urine Negative (Negative); Protein,Urine Negative (Negative); RBC,Urine <1 /hpf (0-5); Specific Gravity,Urine 1.003 (1.001-1.035); Squamous Epithelial Cell,Urine 1 /hpf (0-4); Urobilinogen,Urine <2.0 mg/dL (<2.0); WBC,Urine 1 /hpf (0-5)
[2018-03-16 19:08] LABS: ALT 65 U/L (9-52); AST 65 U/L (14-36); Albumin 4.2 g/dL (3.5-5.0); Alkaline Phosphatase 141 U/L (38-126); Amylase 52 U/L (30-110); Anion Gap 9 mmol/L; Blood Urea Nitrogen 9 mg/dL (7-17); Carbon Dioxide 27 mmol/L (22-30); Chloride 106 mmol/L (98-107); Glucose 89 mg/dL (74-99); Lipase 66 U/L (23-300); Sodium 142 mmol/L (137-145); Total Bilirubin 0.5 mg/dL (0.2-1.3); Total Protein 7.5 g/dL (6.3-8.2)
--- NOTE | 2018-03-16 19:53 | CT ---
EXAMINATION TYPE: CT abdomen pelvis w con DATE OF EXAM: 03/16/2018 COMPARISON: 04/07/2017 HISTORY: Vaginal bleeding on and off x 1 month. Patient had not had menses for 17 months prior to teto t. Complains of pelvic pain today CT DLP: 969.4 mGycm Automated exposure control for dose reduction was used. TECHNIQUE: Helical acquisition of images was performed from the lung bases through the pelvis. CONTRAST: Performed without Oral Contrast and with IV Contrast, patient injected with 100 mL of Isovu e M300. FINDINGS: VISUALIZED LOWER CHEST: Coronary calcifications noted. LIVER/GB: No significant abnormality is appreciated. PANCREAS: No significant abnormality is seen. SPLEEN: No significant abnormality is seen. ADRENALS: No significant abnormality is seen. KIDNEYS: No significant abnormality is seen. FREE AIR: No free air is visualized. RETROPERITONEAL ADENOPATHY: None visualized REPRODUCTIVE ORGANS: No significant abnormality is seen URINARY BLADDER: No significant abnormality is seen. PELVIC ADENOPATHY: None visualized. OSSEOUS STRUCTURES: No significant abnormality is seen. BOWEL: No significant abnormality is seen. OTHER: The vasculature is unremarkable. IMPRESSION: NO ACUTE PROCESS; NO FINDING TO CORRELATE WITH THE PATIENT'S SYMPTOMS/SIGNS.
[2018-03-16] MEDS ORDERED: HYDROmorphone 0.5 MG/0.5 ML SYRINGE IM STA (21:01)
--- NOTE | 2018-03-16 21:01 | ED ---
Abdominal Pain HPI - General Chief Complaint: Abdominal Pain Stated Complaint: FEMALE , ABDOMINAL PAIN Time Seen by Provider: 03/16/18 17:58 Source: patient Mode of arrival: ambulatory Limitations: no limitations - History of Present Illness Initial Comments: 48 years O female presents with abdominal pain and the vaginal bleeding she said she had menopause for some time now she had acute bleeding episodes over the last 15 days status post gallbladder surgery and appendectomy she is complaining about the lower abdominal pain denies any fever or any chills has nausea no vomiting. Denies any frequency frequency urgency dysuria no symptoms of TIA or CVA - Related Data Home Medications Medication Instructions Recorded Confirmed clonazePAM [KlonoPIN] 0.5 mg PO BID 02/24/17 03/16/18 Dextroamphetamine/Amphetamine 30 mg PO QAM 07/30/17 03/16/18 [Adderall] Doxepin HCl 100 mg PO HS 07/30/17 03/16/18 Atenolol [Tenormin] 50 mg PO DAILY 08/14/17 03/16/18 Albuterol Inhaler [Ventolin Hfa 2 puff INHALATION RT-QID PRN 08/28/17 03/16/18 Inhaler] oxyCODONE HCL/ACETAMINOPHEN 1 tab PO TID PRN 03/16/18 03/16/18 [Percocet 7.5-325 mg] Allergies Allergy/AdvReac Type Severity Reaction Status Date / Time ibuprofen Allergy Rash/Hives Verified 03/16/18 18:21 ketorolac [From Toradol] Allergy Anaphylaxis Verified 03/16/18 18:21 shellfish derived Allergy Anaphylaxis Verified 03/16/18 18:21 tramadol [From Ultram] Allergy Rash/Hives Verified 03/16/18 18:21 morphine AdvReac Nausea Verified 03/16/18 18:21 Review of Systems ROS Statement: Those systems with pertinent positive or pertinent negative responses have been documented in the HPI. ROS Other: All systems not noted in ROS Statement are negative. Past Medical History Past Medical History: COPD, GERD/Reflux, Hypertension, Myocardial Infarction ([place] ), Pneumonia, Skin Disorder Additional Past Medical History / Comment(s): chronic back pain, lumbar degenerative disc disease, insomnia, hx shingles, hiatal hernia, kidney stones. 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, migraines, Last Myocardial Infarction Date:: 08/27/2016 History of Any Multi-Drug Resistant Organisms: MRSA Date of last positivie culture/infection: 09/22/2009 MDRO Source:: neck Past Surgical History: Appendectomy, Back Surgery, Section, Cholecystectomy Additional Past Surgical History / Comment(s): Cervical spine fusion with insertion of a metal plate, EGD, colonoscopy, lumbar rhizotomy and radiofrequency ablation Past Anesthesia/Blood Transfusion Reactions: No Reported Reaction Additional Past Anesthesia/Blood Transfusion Reaction / Comment(s): CLAUSTROPHOBIA Past Psychological History: ADD/ADHD, Anxiety Smoking Status: Current every day smoker Past Alcohol Use History: Occasional Past Drug Use History: None Reported - Past Family History Father Family Medical History: Cancer Additional Family Medical History / Comment(s): Father at age 48 from lung cancer. Mother Family Medical History: Congestive Heart Failure (CHF), CVA/TIA Additional Family Medical History / Comment(s): Mother is alive at age 68. She has suffered from a CVA and has chronic back problems. Patient has 2 brothers and 4 sisters with no major medical problems. General Exam - General Exam Comments Initial Comments: General: The patient is awake and alert, in [id number] distress Skin: Skin is warm and dry and no rashes or lesions are noted. Eye: Pupils are equal, round and reactive to light, extra-ocular movements are intact; there is normal conjunctiva bilaterally. Ears, nose, mouth and throat: There are moist mucous membranes and no oral lesions. Neck: The neck is supple, there is no tenderness or JVD. Cardiovascular: There is a regular rate and rhythm. No murmur, rub or gallop is appreciated. Respiratory: To auscultation bilateral, no wheezing no rhonchi no distress respiratory briceño noticed Gastrointestinal: Tender in suprapubic area as well as right lower quadrant or left lower quadrant area Back: There is no tenderness to palpation in the midline. There is no obvious deformity. Musculoskeletal: Normal ROM, no tenderness, There is no pedal edema. There is no calf tenderness or swelling. No cords were appreciated. Neurological: CN II-XII intact, Cranial nerves III through XII are intact. There are no obvious motor or sensory deficits. Coordination appears grossly intact. Speech is normal. Psychiatric: Cooperative, appropriate mood & affect, normal judgment. Limitations: no limitations Course Vital Signs 03/16/18 03/16/18 17:16 19:32 Temperature 97.8 F 98.0 F Pulse Rate 108 H 101 H Respiratory 20 20 Rate Blood Pressure 136/85 108/66 O2 Sat by Pulse 99 99 Oximetry On reassessment term she still requesting for more pain medications she said pain is 8/10 she is she does see Dr. Fuentes for pain management. CBC, CMP was reviewed noticed AST ALT and alk phosphatase elevated she was advised to follow- up with family doctor in about a week time to repeat those enzymes. She also had a CT of the abdomen CT of the abdomen was unremarkable. She has a vaginal bleeding and she is postmenopausal she was advised to see her [employer] doctor for endometrial biopsy CT of the abdomen did not reveal any thing for nares, she is referred to Dr. Verduzco for endometrial biopsy without any endometrial Medical Decision Making - Lab Data Result diagrams: 03/16/18 18:21 03/16/18 18:21 Lab Results 03/16/18 03/16/18 03/16/18 Range/Units 18:21 18:21 18:21 WBC 8.5 (3.8-10.6) k/uL RBC 4.70 (3.80-5.40) m/uL Hgb 14.6 (11.4-16.0) gm/dL Hct 44.7 (34.0-46.0) % MCV 95.0 (80.0-100.0) fL MCH 31.0 (25.0-35.0) pg MCHC 32.6 (31.0-37.0) g/dL RDW 14.8 (11.5-15.5) % Plt Count 331 (150-450) k/uL Neutrophils % 58 % Lymphocytes % 25 % Monocytes % 12 % Eosinophils % 3 % Basophils % 0 % Neutrophils # 5.0 (1.3-7.7) k/uL Lymphocytes # 2.1 (1.0-4.8) k/uL Monocytes # 1.0 (0-1.0) k/uL Eosinophils # 0.3 (0-0.7) k/uL Basophils # 0.0 (0-0.2) k/uL Sodium 142 (137-145) mmol/L Potassium 5.0 (3.5-5.1) mmol/L Chloride 106 (98-107) mmol/L Carbon Dioxide 27 (22-30) mmol/L Anion Gap 9 mmol/L BUN 9 (7-17) mg/dL Creatinine 0.60 (0.52-1.04) mg/dL Est GFR (CKD-EPI)AfAm >90 (>60 ml/min/1.73 sqM) Est GFR (CKD-EPI)NonAf >90 (>60 ml/min/1.73 sqM) Glucose 89 (74-99) mg/dL Plasma Lactic Acid Ruben (0.7-2.0) mmol/L Calcium 10.0 (8.4-10.2) mg/dL Total Bilirubin 0.5 (0.2-1.3) mg/dL AST 65 H (14-36) U/L ALT 65 H (9-52) U/L Alkaline Phosphatase 141 H (38-126) U/L Total Protein 7.5 (6.3-8.2) g/dL Albumin 4.2 (3.5-5.0) g/dL Amylase 52 (30-110) U/L Lipase 66 (23-300) U/L Urine Color Colorless Urine Appearance Clear (Clear) Urine pH 6.0 (5.0-8.0) Ur Specific [place] 1.003 (1.001-1.035) Urine Protein Negative (Negative) Urine Glucose (UA) Negative (Negative) Urine Ketones Negative (Negative) Urine Blood Trace H (Negative) Urine Nitrite Negative (Negative) Urine Bilirubin Negative (Negative) Urine Urobilinogen <2.0 (<2.0) mg/dL Ur Leukocyte Esterase Negative (Negative) Urine RBC <1 (0-5) /hpf Urine WBC 1 (0-5) /hpf Ur Squamous Epith Cells 1 (0-4) /hpf Urine Bacteria Rare H (None) /hpf Urine HCG, Qual (Not Detectd) 03/16/18 03/16/18 Range/Units 18:21 18:21 WBC (3.8-10.6) k/uL RBC (3.80-5.40) m/uL Hgb (11.4-16.0) gm/dL Hct (34.0-46.0) % MCV (80.0-100.0) fL MCH (25.0-35.0) pg MCHC (31.0-37.0) g/dL RDW (11.5-15.5) % Plt Count (150-450) k/uL Neutrophils % % Lymphocytes % % Monocytes % % Eosinophils % % Basophils % % Neutrophils # (1.3-7.7) k/uL Lymphocytes # (1.0-4.8) k/uL Monocytes # (0-1.0) k/uL Eosinophils # (0-0.7) k/uL Basophils # (0-0.2) k/uL Sodium (137-145) mmol/L Potassium (3.5-5.1) mmol/L Chloride (98-107) mmol/L Carbon Dioxide (22-30) mmol/L Anion Gap mmol/L BUN (7-17) mg/dL Creatinine (0.52-1.04) mg/dL Est GFR (CKD-EPI)AfAm (>60 ml/min/1.73 sqM) Est GFR (CKD-EPI)NonAf (>60 ml/min/1.73 sqM) Glucose (74-99) mg/dL Plasma Lactic Acid Ruben 1.7 (0.7-2.0) mmol/L Calcium (8.4-10.2) mg/dL Total Bilirubin (0.2-1.3) mg/dL AST (14-36) U/L ALT (9-52) U/L Alkaline Phosphatase (38-126) U/L Total Protein (6.3-8.2) g/dL Albumin (3.5-5.0) g/dL Amylase (30-110) U/L Lipase (23-300) U/L Urine Color Urine Appearance (Clear) Urine pH (5.0-8.0) Ur Specific [place] (1.001-1.035) Urine Protein (Negative) Urine Glucose (UA) (Negative) Urine Ketones (Negative) Urine Blood (Negative) Urine Nitrite (Negative) Urine Bilirubin (Negative) Urine Urobilinogen (<2.0) mg/dL Ur Leukocyte Esterase (Negative) Urine RBC (0-5) /hpf Urine WBC (0-5) /hpf Ur Squamous Epith Cells (0-4) /hpf Urine Bacteria (None) /hpf Urine HCG, Qual Not Detected (Not Detectd) Disposition Clinical Impression: Abdominal pain, Vaginal bleeding Disposition: HOME SELF-CARE Condition: Good Instructions: Abdominal Pain (ED) Additional Instructions: He will continue to follow up with the Dr. Davis for the pain management and she is referred to Dr. Verduzco for postmenopausal bleeding vag bleed Is patient prescribed a controlled substance at d/c from ED?: No Referrals: Estelle Butterfield DO [Primary Care Provider] - 1-2 days Dez Verduzco MD [STAFF PHYSICIAN] - 1-2 days
[2018-03-16 21:21] VITALS: BP 129/73; PULSE 84; RESP 18; TEMP 98.3
== END 2018-03-16 21:22 | disposition home or self-care (01) ==
LOC: EC 17:14
DX: N93.9 Abnormal uterine and vaginal bleeding, unspecified (principal); R10.30 Lower abdominal pain, unspecified; J44.9 Chronic obstructive pulmonary disease, unspecified; I10 Essential (primary) hypertension; I25.2 Old myocardial infarction; F90.9 Attention-deficit hyperactivity disorder, unspecified type; F41.9 Anxiety disorder, unspecified; F17.200 Nicotine dependence, unspecified, uncomplicated; Z79.899 Other long term (current) drug therapy; Z88.5 Allergy status to narcotic agent; Z88.6 Allergy status to analgesic agent; Z91.013 Allergy to seafood
CPT/HCPCS: 36415; 80053; 82150; 83605; 83690; 85025; 81001; 81025; 87040; 87086; 74177; 99284; 96374; 96375 ×3; 96361 ×3; 96372; J1200; J2930; J1170 ×2; Q9967

== ENCOUNTER 2018-03-17 09:31 | Inpatient (IN) | payer OTHER ==
[2018-03-17] MEDS ORDERED: MORPHINE SULFATE 4 MG/ML SYRINGE IV STA (10:26)
[2018-03-17] MEDS ORDERED: ONDANSETRON 4 MG/2 ML VIAL IVP STA (10:26)
[2018-03-17] MEDS ORDERED: KETOROLAC 30 MG/ML 1 ML VIAL IVP STA (10:26)
[2018-03-17] MEDS ORDERED: SODIUM CHLORIDE 0.9% 1,000 ML IV STA (10:26)
[2018-03-17 10:39] LABS: Basophils % (A) 0 %; Eosinophils # (A) 0.2 k/uL (0-0.7); Eosinophils % (A) 1 %; HCT 44.4 % (34.0-46.0); Lymphocytes # (A) 0.7 k/uL (1.0-4.8); Lymphocytes % (A) 4 %; MCH 30.2 pg (25.0-35.0); MCHC 31.6 g/dL (31.0-37.0); MCV 95.4 fL (80.0-100.0); Mean Platelet Volume 7.2; Monocytes # (A) 0.6 k/uL (0-1.0); Monocytes % (A) 3 %; Neutrophils # (A) 15.9 k/uL (1.3-7.7); Neutrophils % (A) 91 %; Platelet Count 369 k/uL (150-450); RBC 4.66 m/uL (3.80-5.40); RDW 14.8 % (11.5-15.5); WBC 17.4 k/uL (3.8-10.6)
[2018-03-17] MEDS ORDERED: ORPHENADRINE 30 MG/ML 2 ML VIAL IVP STA (10:47)
[2018-03-17 10:53] LABS: ALT 86 U/L (9-52); AST 82 U/L (14-36); Alkaline Phosphatase 124 U/L (38-126); Amylase 49 U/L (30-110); Anion Gap 12 mmol/L; Blood Urea Nitrogen 8 mg/dL (7-17); Calcium 10.2 mg/dL (8.4-10.2); Carbon Dioxide 21 mmol/L (22-30); Chloride 109 mmol/L (98-107); Glucose 210 mg/dL (74-99); Lipase 27 U/L (23-300); Potassium 4.9 mmol/L (3.5-5.1); Sodium 142 mmol/L (137-145); Total Bilirubin 0.3 mg/dL (0.2-1.3)
--- NOTE | 2018-03-17 11:07 | ED ---
Abdominal Pain HPI - General Chief Complaint: Abdominal Pain Stated Complaint: abd pain Time Seen by Provider: 03/17/18 10:04 Source: patient, RN notes reviewed, old records reviewed Mode of arrival: ambulatory Limitations: no limitations - History of Present Illness Initial Comments: 48-year-old female presents emergency department today with chief complaint of lower abdominal and pelvic pain. Patient was seen in the emergency department yesterday for similar complaints. At that time she had a normal CAT scan and normal blood work. Patient states that is persisting. She does state that she' s been having some abnormal vaginal discharge. Patient reports that over the past 2 months she's had for irregular menstrual periods. She states that she has been having perimenopausal last year and a half and has not had a period up until this last January. Patient does not have an EMERGENCY MEDCL EMT at this time. Patient reports that she has pain within her vaginal vault and pelvis. She states it feels like a burning stabbing sensation. Patient denies any fever or chills. She denies any concern for STDs. - Related Data Home Medications Medication Instructions Recorded Confirmed clonazePAM [KlonoPIN] 0.5 mg PO BID 02/24/17 03/17/18 Dextroamphetamine/Amphetamine 30 mg PO QAM 07/30/17 03/17/18 [Adderall] Atenolol [Tenormin] 50 mg PO DAILY 08/14/17 03/17/18 Albuterol Inhaler [Ventolin Hfa 2 puff INHALATION RT-QID PRN 08/28/17 03/17/18 Inhaler] oxyCODONE HCL/ACETAMINOPHEN 1 tab PO TID PRN 03/16/18 03/17/18 [Percocet 7.5-325 mg] Gabapentin [Neurontin] 400 mg PO TID 03/17/18 03/17/18 Allergies Allergy/AdvReac Type Severity Reaction Status Date / Time ibuprofen Allergy Rash/Hives Verified 03/17/18 10:13 ketorolac [From Toradol] Allergy Anaphylaxis Verified 03/17/18 10:13 shellfish derived Allergy Anaphylaxis Verified 03/17/18 10:13 tramadol [From Ultram] Allergy Rash/Hives Verified 03/17/18 10:13 morphine AdvReac Nausea Verified 03/17/18 10:13 Review of Systems ROS Statement: Those systems with pertinent positive or pertinent negative responses have been documented in the HPI. ROS Other: All systems not noted in ROS Statement are negative. Past Medical History Past Medical History: COPD, GERD/Reflux, Hypertension, Myocardial Infarction ([place] ), Pneumonia, Skin Disorder Additional Past Medical History / Comment(s): chronic back pain, lumbar degenerative disc disease, insomnia, hx shingles, hiatal hernia, kidney stones. 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, migraines, Last Myocardial Infarction Date:: 08/27/2016 History of Any Multi-Drug Resistant Organisms: MRSA Date of last positivie culture/infection: 09/22/2009 MDRO Source:: neck Past Surgical History: Appendectomy, Back Surgery, Section, Cholecystectomy Additional Past Surgical History / Comment(s): Cervical spine fusion with insertion of a metal plate, EGD, colonoscopy, lumbar rhizotomy and radiofrequency ablation Past Anesthesia/Blood Transfusion Reactions: No Reported Reaction Additional Past Anesthesia/Blood Transfusion Reaction / Comment(s): CLAUSTROPHOBIA Past Psychological History: ADD/ADHD, Anxiety Smoking Status: Current every day smoker Past Alcohol Use History: Occasional Past Drug Use History: None Reported - Past Family History Father Family Medical History: Cancer Additional Family Medical History / Comment(s): Father at age 48 from lung cancer. Mother Family Medical History: Congestive Heart Failure (CHF), CVA/TIA Additional Family Medical History / Comment(s): Mother is alive at age 68. She has suffered from a CVA and has chronic back problems. Patient has 2 brothers and 4 sisters with no major medical problems. General Exam - General Exam Comments Initial Comments: This is a 48-year-old female. Alert and oriented. No acute distress. Limitations: no limitations Head exam: Present: atraumatic, normocephalic, normal inspection Eye exam: Present: normal appearance, PERRL, EOMI. Absent: scleral icterus, conjunctival injection, periorbital swelling ENT exam: Present: normal exam, mucous membranes moist Neck exam: Present: normal inspection. Absent: tenderness, meningismus, lymphadenopathy Respiratory exam: Present: normal lung sounds bilaterally. Absent: respiratory distress, wheezes, rales, rhonchi, stridor Cardiovascular Exam: Present: regular rate, normal rhythm, normal heart sounds. Absent: systolic murmur, diastolic murmur, rubs, gallop, clicks GI/Abdominal exam: Present: tenderness (diffuse abdominal tenderness, ), guarding, normal bowel sounds. Absent: soft, distended, rebound, rigid Speculum exam: Present: normal speculum exam, vaginal discharge (Marte is white adherent vaginal discharge consistent with yeast infection.) By manual exam: Present: normal by manual exam. Absent: cervical motion tenderness Extremities exam: Present: normal inspection, full ROM, normal capillary refill. Absent: tenderness, pedal edema, joint swelling, calf tenderness Back exam: Present: normal inspection Neurological exam: Present: alert, oriented X3, CN II-XII intact Course Vital Signs 03/17/18 03/17/18 03/17/18 09:33 11:18 13:00 Temperature 97.5 F L 97.8 F 99.8 F H Pulse Rate 120 H 99 98 Respiratory 20 18 18 Rate Blood Pressure 143/84 112/65 O2 Sat by Pulse 99 99 99 Oximetry Medical Decision Making - Medical Decision Making This Patient is a 48-year-old female presents emergency department today with chief complaint of nausea, severe abdominal pelvic pain. She reports that since discharge. Pelvic exam was unremarkable this time. She did have some minor white discharge most likely due to his infection. Patient has significant tenderness and guarding over the right lower quadrant. Patient's labwork compared to yesterday shows a significant increase of her white blood cell count. Yesterday was 8 today to 17 with a left shift. Patient urinalysis is negative. Trichomonas is negative. Gonorrhea and Chlamydia are pending. Transvaginal ultrasound was obtained and shows evidence of a small 1.5 cm uterine fibroid. With patient's significant tenderness we did repeat a CAT scan today. Computed tomography scan at this time is negative for any significant process. However with patient's fever, elevated lactic acid level severe abdominal pain related to that the Patient for further evaluation. We' ll consult Dr. Mari and Dr. Graves on-call EMERGENCY MEDCL EMT. All questions answered Patient agrees to the admission. - Lab Data Result diagrams: 03/17/18 10:00 03/17/18 10:00 Lab Results 03/17/18 03/17/18 03/17/18 Range/Units 10:00 10:00 10:34 WBC 17.4 H (3.8-10.6) k/uL RBC 4.66 (3.80-5.40) m/uL Hgb 14.0 (11.4-16.0) gm/dL Hct 44.4 (34.0-46.0) % MCV 95.4 (80.0-100.0) fL MCH 30.2 (25.0-35.0) pg MCHC 31.6 (31.0-37.0) g/dL RDW 14.8 (11.5-15.5) % Plt Count 369 (150-450) k/uL Neutrophils % 91 % Lymphocytes % 4 % Monocytes % 3 % Eosinophils % 1 % Basophils % 0 % Neutrophils # 15.9 H (1.3-7.7) k/uL Lymphocytes # 0.7 L (1.0-4.8) k/uL Monocytes # 0.6 (0-1.0) k/uL Eosinophils # 0.2 (0-0.7) k/uL Basophils # 0.0 (0-0.2) k/uL Sodium 142 (137-145) mmol/L Potassium 4.9 (3.5-5.1) mmol/L Chloride 109 H (98-107) mmol/L Carbon Dioxide 21 L (22-30) mmol/L Anion Gap 12 mmol/L BUN 8 (7-17) mg/dL Creatinine 0.60 (0.52-1.04) mg/dL Est GFR (CKD-EPI)AfAm >90 (>60 ml/min/1.73 sqM) Est GFR (CKD-EPI)NonAf >90 (>60 ml/min/1.73 sqM) Glucose 210 H (74-99) mg/dL Plasma Lactic Acid Ruben (0.7-2.0) mmol/L Calcium 10.2 (8.4-10.2) mg/dL Total Bilirubin 0.3 (0.2-1.3) mg/dL AST 82 H (14-36) U/L ALT 86 H (9-52) U/L Alkaline Phosphatase 124 (38-126) U/L Total Protein 7.0 (6.3-8.2) g/dL Albumin 4.0 (3.5-5.0) g/dL Amylase 49 (30-110) U/L Lipase 27 (23-300) U/L Urine Color Colorless Urine Appearance Clear (Clear) Urine pH 7.0 (5.0-8.0) Ur Specific Braddock 1.004 (1.001-1.035) Urine Protein Negative (Negative) Urine Glucose (UA) 1+ H (Negative) Urine Ketones Negative (Negative) Urine Blood Trace H (Negative) Urine Nitrite Negative (Negative) Urine Bilirubin Negative (Negative) Urine Urobilinogen <2.0 (<2.0) mg/dL Ur Leukocyte Esterase Negative (Negative) Urine RBC 1 (0-5) /hpf Urine WBC 1 (0-5) /hpf Ur Squamous Epith Cells <1 (0-4) /hpf Urine Bacteria Occasional H (None) /hpf Urine HCG, Qual (Not Detectd) Trichomonas Ag (Rapid) (Negative) 03/17/18 03/17/18 03/17/18 Range/Units 10:48 11:20 13:35 WBC (3.8-10.6) k/uL RBC (3.80-5.40) m/uL Hgb (11.4-16.0) gm/dL Hct (34.0-46.0) % MCV (80.0-100.0) fL MCH (25.0-35.0) pg MCHC (31.0-37.0) g/dL RDW (11.5-15.5) % Plt Count (150-450) k/uL Neutrophils % % Lymphocytes % % Monocytes % % Eosinophils % % Basophils % % Neutrophils # (1.3-7.7) k/uL Lymphocytes # (1.0-4.8) k/uL Monocytes # (0-1.0) k/uL Eosinophils # (0-0.7) k/uL Basophils # (0-0.2) k/uL Sodium (137-145) mmol/L Potassium (3.5-5.1) mmol/L Chloride (98-107) mmol/L Carbon Dioxide (22-30) mmol/L Anion Gap mmol/L BUN (7-17) mg/dL Creatinine (0.52-1.04) mg/dL Est GFR (CKD-EPI)AfAm (>60 ml/min/1.73 sqM) Est GFR (CKD-EPI)NonAf (>60 ml/min/1.73 sqM) Glucose (74-99) mg/dL Plasma Lactic Acid Ruben 3.0 H* (0.7-2.0) mmol/L Calcium (8.4-10.2) mg/dL Total Bilirubin (0.2-1.3) mg/dL AST (14-36) U/L ALT (9-52) U/L Alkaline Phosphatase (38-126) U/L Total Protein (6.3-8.2) g/dL Albumin (3.5-5.0) g/dL Amylase (30-110) U/L Lipase (23-300) U/L Urine Color Urine Appearance (Clear) Urine pH (5.0-8.0) Ur Specific Braddock (1.001-1.035) Urine Protein (Negative) Urine Glucose (UA) (Negative) Urine Ketones (Negative) Urine Blood (Negative) Urine Nitrite (Negative) Urine Bilirubin (Negative) Urine Urobilinogen (<2.0) mg/dL Ur Leukocyte Esterase (Negative) Urine RBC (0-5) /hpf Urine WBC (0-5) /hpf Ur Squamous Epith Cells (0-4) /hpf Urine Bacteria (None) /hpf Urine HCG, Qual Not Detected (Not Detectd) Trichomonas Ag (Rapid) Negative (Negative) - Radiology Data Radiology results: report reviewed This has heterogeneous one point recently or hyperechoic lesion in the uterine fundus which could be related to fibroid. Correlate with MRI. CT is negative for any significant process. Disposition Clinical Impression: Sepsis, Abdominal pain Disposition: ADMITTED IP TO THIS HOSP Condition: Good Is patient prescribed a controlled substance at d/c from ED?: No Referrals: Estelle Butterfield DO [Primary Care Provider] - 1-2 days Time of Disposition: 16:18
--- NOTE | 2018-03-17 12:05 | US ---
EXAMINATION TYPE: US transvaginal DATE OF EXAM: 03/17/2018 COMPARISON: CT 2018 CLINICAL HISTORY: Pain. Pelvic pain x 2 days, bleeding on/off x 2 months, 2, para 1, miscarri age 1 TECHNIQUE: Transvaginal ER exam. Date of LMP: 17 months ago EXAM MEASUREMENTS: Uterus: 7.2 x 3.5 x 3.6 cm Endometrial Stripe: 0.4 cm Right Ovary: not seen Left Ovary: not seen 1. Uterus: anteverted, heterogeneous, 1.2 x 1.2 x 1.3cm hyperechoic lesion fundal portion of uterus, multiple nabothian cysts 2. Endometrium: appears wnl 3. Right Ovary: not seen due to overlying bowel gas 4. Left Ovary: not seen due to overlying bowel gas 5. Bilateral Adnexa: wnl 6. Posterior cul-de-sac: wnl IMPRESSION: 1. The uterus is heterogeneous is a 1.3 cm hyperechoic lesion in the uterine fundus which could be re lated to fibroid and could be correlated with MRI.
[2018-03-17] MEDS ORDERED: MORPHINE SULFATE 4 MG/ML SYRINGE IVP STA (12:14)
[2018-03-17 12:38] LABS: Appearance,Urine Clear (Clear); Bacteria,Urine Occasional /hpf; Bilirubin,Urine Negative (Negative); Blood,Urine Trace (Negative); Color,Urine Colorless; Glucose,Urine (UA) 1+ (Negative); Ketones,Urine Negative (Negative); Leukocyte Esterase,Urine Negative (Negative); Nitrite,Urine Negative (Negative); Protein,Urine Negative (Negative); RBC,Urine 1 /hpf (0-5); Specific Gravity,Urine 1.004 (1.001-1.035); Squamous Epithelial Cell,Urine <1 /hpf (0-4); Urobilinogen,Urine <2.0 mg/dL (<2.0); WBC,Urine 1 /hpf (0-5)
[2018-03-17] MEDS ORDERED: ACETAMINOPHEN TAB 500 MG TAB PO STA (13:25)
[2018-03-17] MEDS ORDERED: SODIUM CHLORIDE 0.9% 1,000 ML IV ONE ×2 (13:26→14:24)
[2018-03-17] MEDS ORDERED: cefTRIAXone IN SWFI 1,000 MG/10 ML SYRINGE IVP STA (14:24)
[2018-03-17] MEDS ORDERED: metroNIDAZOLE-NS PMX 500 MG in SALINE 1 100ML.BAG IVPB STA (14:24)
[2018-03-17] MEDS ORDERED: HYDROmorphone 1 MG/ML 1 ML SYRINGE IVP STA (14:27)
--- NOTE | 2018-03-17 15:12 | CT ---
EXAMINATION TYPE: CT abdomen pelvis w con DATE OF EXAM: 03/17/2018 COMPARISON: Prior CT abdomen pelvis 03/16/2018 HISTORY: Continued pelvic pain with double WBC count since last night. CT DLP: 1326 mGycm Automated exposure control for dose reduction was used. TECHNIQUE: Helical acquisition of images from the lung bases through the pelvis have been completed. CONTRAST: Performed without Oral Contrast and with IV Contrast, patient injected with 100 mL of Isovue M300. FINDINGS: Coronary artery calcification noted. There is calcification at the root of the aorta. LUNG BASES: Minimal dependent atelectatic changes are noted.. AORTA: No significant abnormality is appreciated. LIVER/GB: Stable, patient is post cholecystectomy, there is some prominence of biliary ducts likely d ue to postcholecystectomy change. Liver shows low attenuation likely due to hepatic steatosis. Liver is enlarged. Liver span is 20 cm. PANCREAS: No significant abnormality is seen. SPLEEN: No significant abnormality is seen. ADRENALS: No significant abnormality is seen. KIDNEYS: No significant abnormality is seen. REPRODUCTIVE ORGANS: Stable, small right ovarian cyst measures approximately 1 cm. Bulky uterus likel y due to fibroids. BOWEL: No significant abnormality is seen. Post appendectomy change again noted. FREE AIR: No Free Air visible. ASCITES: None visible. PELVIC ADENOPATHY: None visualized. RETROPERITONEAL ADENOPATHY: No Retroperitoneal Adenopathy visible. URINARY BLADDER: No significant abnormality is seen. OSSEOUS STRUCTURES: There is a spinal curvature. IMPRESSION: NO SIGNIFICANT INTERVAL CHANGE. ADDITIONAL FINDINGS ABOVE.
[2018-03-17] MEDS ORDERED: IBUPROFEN 400 MG TAB PO PRN (16:19)
[2018-03-17] MEDS ORDERED: MORPHINE SULFATE 4 MG/ML SYRINGE IV PRN (16:19)
[2018-03-17] MEDS ORDERED: ONDANSETRON 4 MG/2 ML VIAL IVP PRN (16:19)
[2018-03-17] MEDS ORDERED: KETOROLAC 30 MG/ML 1 ML VIAL IVP PRN (16:19)
[2018-03-17] MEDS ORDERED: NALOXONE 0.4 MG/ML 1 ML VIAL IV PRN (16:19)
[2018-03-17] MEDS ORDERED: ACETAMINOPHEN TAB 325 MG TAB PO PRN (16:19)
[2018-03-17] MEDS ORDERED: MORPHINE SULFATE 2 MG/ML SYRINGE IVP STA (16:31)
[2018-03-17] MEDS: LORazepam 2 MG/ML INJ IV PRN (16:41)
--- NOTE | 2018-03-17 16:43 | P.HPIM ---
History of Present Illness 48-year-old female presents emergency department today with chief complaint of lower abdominal and pelvic pain. Patient was seen in the emergency department yesterday for similar complaints. At that time she had a normal CAT scan and normal blood work. Patient states that is persisting. She does state that she' s been having some abnormal vaginal discharge. Patient reports that over the past 2 months she's had for irregular menstrual periods. She states that she has been having perimenopausal last year and a half and has not had a period up until this last January. Patient does not have an PRICING ANALYST at this time. Patient reports that she has pain within her vaginal vault and pelvis. She states it feels like a burning stabbing sensation. Patient denies any fever or chills. She denies any concern for STDs. Patient had a low-grade fever here does have leukocytosis patient came to ER yesterday was discharged yesterday from ER comes back with the abdominal pain again which is mostly stabbing kind of sensation 9/10 in severity bilateral lower quadrants. Patient does have leukocytosis and lactic acidosis with lactic acid of around 3. Patient is a bolus of IV fluids was given antibiotics. Review of Systems REVIEW OF SYSTEMS: CONSTITUTIONAL: No fever, no malaise, no fatigue. HEENT: No recent visual problems or hearing problems. Denied any sore throat. CARDIOVASCULAR: No chest pain, orthopnea, PND, no palpitations, no syncope. PULMONARY: No shortness of breath, no cough, no hemoptysis. GASTROINTESTINAL: No diarrhea, no vomiting. NEUROLOGICAL: No headaches, no weakness, no numbness. HEMATOLOGICAL: Denies any bleeding or petechiae. GENITOURINARY: Denies any burning micturition, frequency, or urgency. MUSCULOSKELETAL/RHEUMATOLOGICAL: Denies any joint pain, swelling, or any muscle pain. ENDOCRINE: Denies any polyuria or polydipsia. The rest of the 14-point review of systems is negative. Past Medical History Past Medical History: COPD, GERD/Reflux, Hypertension, Myocardial Infarction ([place] ), Pneumonia, Skin Disorder Additional Past Medical History / Comment(s): chronic back pain, lumbar degenerative disc disease, insomnia, hx shingles, hiatal hernia, kidney stones. 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, migraines, Last Myocardial Infarction Date:: 08/27/2016 History of Any Multi-Drug Resistant Organisms: MRSA Date of last positivie culture/infection: 09/22/2009 MDRO Source:: neck Past Surgical History: Appendectomy, Back Surgery, Section, Cholecystectomy Additional Past Surgical History / Comment(s): Cervical spine fusion with insertion of a metal plate, EGD, colonoscopy, lumbar rhizotomy and radiofrequency ablation Past Anesthesia/Blood Transfusion Reactions: No Reported Reaction Additional Past Anesthesia/Blood Transfusion Reaction / Comment(s): CLAUSTROPHOBIA Past Psychological History: ADD/ADHD, Anxiety Smoking Status: Current every day smoker Past Alcohol Use History: Occasional Past Drug Use History: None Reported - Past Family History Father Family Medical History: Cancer Additional Family Medical History / Comment(s): Father at age 48 from lung cancer. Mother Family Medical History: Congestive Heart Failure (CHF), CVA/TIA Additional Family Medical History / Comment(s): Mother is alive at age 68. She has suffered from a CVA and has chronic back problems. Patient has 2 brothers and 4 sisters with no major medical problems. Medications and Allergies Home Medications Medication Instructions Recorded Confirmed Type clonazePAM [KlonoPIN] 0.5 mg PO BID 02/24/17 03/17/18 History Dextroamphetamine/Amphetamine 30 mg PO QAM 07/30/17 03/17/18 History [Adderall] Atenolol [Tenormin] 50 mg PO DAILY 08/14/17 03/17/18 History Albuterol Inhaler [Ventolin Hfa 2 puff INHALATION RT-QID PRN 08/28/17 03/17/18 History Inhaler] oxyCODONE HCL/ACETAMINOPHEN 1 tab PO TID PRN 03/16/18 03/17/18 History [Percocet 7.5-325 mg] Gabapentin [Neurontin] 400 mg PO TID 03/17/18 03/17/18 History Allergies Allergy/AdvReac Type Severity Reaction Status Date / Time ibuprofen Allergy Rash/Hives Verified 03/17/18 10:13 ketorolac [From Toradol] Allergy Anaphylaxis Verified 03/17/18 10:13 shellfish derived Allergy Anaphylaxis Verified 03/17/18 10:13 tramadol [From Ultram] Allergy Rash/Hives Verified 03/17/18 10:13 morphine AdvReac Nausea Verified 03/17/18 10:13 Physical Exam Vitals: Vital Signs Temp Pulse Resp BP Pulse Ox 03/17/18 13:00 99.8 F H 98 18 99 03/17/18 11:18 97.8 F 99 18 112/65 99 03/17/18 09:33 97.5 F L 120 H 20 143/84 99 Intake and Output 03/17/18 03/17/18 03/17/18 06:59 14:59 22:59 Other: Weight 67.132 kg PHYSICAL EXAMINATION: GENERAL: The patient is alert and oriented x3, not in any acute distress. Well developed, well nourished. HEENT: Pupils are round and equally reacting to light. EOMI. No scleral icterus. No conjunctival pallor. Normocephalic, atraumatic. No pharyngeal erythema. No thyromegaly. CARDIOVASCULAR: S1 and S2 present. No murmurs, rubs, or gallops. PULMONARY: Chest is clear to auscultation, no wheezing or crackles. ABDOMEN: Soft, mild bilateral lower abdominal pain, nondistended, normoactive bowel sounds. No palpable organomegaly. No rebound or rigidity Land's sign is negative. MUSCULOSKELETAL: No joint swelling or deformity. EXTREMITIES: No cyanosis, clubbing, or pedal edema. NEUROLOGICAL: Gross neurological examination did not reveal any focal deficits. SKIN: No rashes. Results CBC & Chem 7: 03/17/18 10:00 03/17/18 10:00 Labs: Abnormal Lab Results - Last 24 Hours (Table) 03/17/18 03/17/18 03/17/18 Range/Units 10:00 10:00 10:34 WBC 17.4 H (3.8-10.6) k/uL Neutrophils # 15.9 H (1.3-7.7) k/uL Lymphocytes # 0.7 L (1.0-4.8) k/uL Chloride 109 H (98-107) mmol/L Carbon Dioxide 21 L (22-30) mmol/L Glucose 210 H (74-99) mg/dL Plasma Lactic Acid Ruben (0.7-2.0) mmol/L AST 82 H (14-36) U/L ALT 86 H (9-52) U/L Urine Glucose (UA) 1+ H (Negative) Urine Blood Trace H (Negative) Urine Bacteria Occasional H (None) /hpf 03/17/18 Range/Units 13:35 WBC (3.8-10.6) k/uL Neutrophils # (1.3-7.7) k/uL Lymphocytes # (1.0-4.8) k/uL Chloride (98-107) mmol/L Carbon Dioxide (22-30) mmol/L Glucose (74-99) mg/dL Plasma Lactic Acid Ruben 3.0 H* (0.7-2.0) mmol/L AST (14-36) U/L ALT (9-52) U/L Urine Glucose (UA) (Negative) Urine Blood (Negative) Urine Bacteria (None) /hpf Microbiology - Last 24 Hours (Table) 03/17/18 11:20 Genital Culture - Preliminary Vaginal Assessment and Plan Plan: -Bilateral lower abdominal pain with vaginal bleeding: The etiology is unclear, although I do have concerns of ischemic bowel with lactic acidosis and normal CAT scan findings. And smoking history. Patient does have vaginal bleeding does have fibroid in the fundus of the rest sublingual fibroids can cause bleeding, other etiology probably can be fibroids contributing to her pain and vaginal bleeding. Patient denied any hematochezia.'s general surgery and gynecologic surgery were consulted. Patient was started on IV fluids. -Lactic acidosis with leukocytosis no clear-cut source of infection patient will be started on empiric antibiotics . -COPD without any acute exacerbation patient is trying to quit smoking presently smokes about 3-4 cigarettes a day. -Coronary artery diseas -hypertension
[2018-03-17] MEDS ORDERED: ALBUTEROL NEBULIZED 2.5 MG/3 ML INHALATION PRN (16:44)
[2018-03-17] MEDS: SODIUM CHLORIDE 0.9% 1,000 ML IV SCH (16:46)
[2018-03-17 18:31] LABS: Amphetamine Screen,Urine Not Detected (NotDetected); Benzodiazepines Screen,Urine Detected (NotDetected); Cocaine Screen,Urine Not Detected (NotDetected); Opiate Screen,Urine Detected (NotDetected); Phencyclidine Screen,Urine Not Detected (NotDetected); Urn Cannabinoid Scrn Not Detected (NotDetected)
[2018-03-17 18:32] VITALS: BMI 27.9
[2018-03-17 18:32] LABS: Barbiturate Screen,Urine Not Detected (NotDetected); Methadone Screen, Urine Not Detected (NotDetected); Oxycodone Screen, Urine Detected (NotDetected); Tricyclic Antidepressant,Urine Detected (NotDetected)
--- NOTE | 2018-03-17 19:09 | P.OBCN ---
History of Present Illness Consult date: 03/17/18 Reason for consult: other (Abdominal pain) Chief complaint: Abdominal pain. History of present illness: This patient is a 48-year-old 2 para 1 female who is admitted from the emergency department earlier today with complaints of lower abdominal pain has been going on for approximately 1 week. She was here yesterday and at that time had a CAT scan which was negative and a complete blood count which was normal and sent home. Patient states that she returned today with similar complaints and at this time a repeat CAT scan and pelvic ultrasound was done as well as a CBC. CBC did show an elevated white count to 17. CAT scan of the pelvis was negative an ultrasound of the pelvis was negative as well. The only finding was a 1.3 cm fibroid of the uterine fundus. Endometrial stripe was 0.4 cm. Ovaries were not seen on the ultrasound but were felt to be normal on her CAT scan. Patient past gynecologic history is such that she's been seeing Dr. Zaidi for regular pelvic exams. She states they have been normal. She had not had a cycle approximately 17 months then in January began having some some irregular bleeding. Patient's been a monogamous relationship for 27 years. She describes a white occasional vaginal discharge but otherwise nothing abnormal. Patient denies fevers at home. Genital cultures at this time are pending. She does complain of nausea for approximately 7 days but denies any vomiting or diarrhea. Review of Systems Genitourinary: Reports as per HPI Menstruation: Reports as per HPI Past Medical History Past Medical History: COPD, GERD/Reflux, Hypertension, Myocardial Infarction ([place] ), Pneumonia, Skin Disorder Additional Past Medical History / Comment(s): chronic back pain, lumbar degenerative disc disease, insomnia, hx shingles, hiatal hernia, kidney stones. 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, migraines,; obstetrical history is significant for 1 miscarriage and 1 term that required a section Last Myocardial Infarction Date:: 08/27/2016 History of Any Multi-Drug Resistant Organisms: MRSA Year Discovered:: 09/22/2009 MDRO Source:: neck Past Surgical History: Appendectomy, Back Surgery, Section, Cholecystectomy Additional Past Surgical History / Comment(s): Cervical spine fusion with insertion of a metal plate, EGD, colonoscopy, lumbar rhizotomy and radiofrequency ablation Past Anesthesia/Blood Transfusion Reactions: No Reported Reaction Additional Past Anesthesia/Blood Transfusion Reaction / Comm: CLAUSTROPHOBIA Smoking Status: Current every day smoker - Past Family History Father Family Medical History: Cancer Additional Family Medical History / Comment(s): Father at age 48 from lung cancer. Mother Family Medical History: Congestive Heart Failure (CHF), CVA/TIA Additional Family Medical History / Comment(s): Mother is alive at age 68. She has suffered from a CVA and has chronic back problems. Patient has 2 brothers and 4 sisters with no major medical problems. Medications and Allergies Home Medications Medication Instructions Recorded Confirmed Type clonazePAM [KlonoPIN] 0.5 mg PO BID 02/24/17 03/17/18 History Dextroamphetamine/Amphetamine 30 mg PO QAM 07/30/17 03/17/18 History [Adderall] Atenolol [Tenormin] 50 mg PO DAILY 08/14/17 03/17/18 History Albuterol Inhaler [Ventolin Hfa 2 puff INHALATION RT-QID PRN 08/28/17 03/17/18 History Inhaler] oxyCODONE HCL/ACETAMINOPHEN 1 tab PO TID PRN 03/16/18 03/17/18 History [Percocet 7.5-325 mg] Gabapentin [Neurontin] 400 mg PO TID 03/17/18 03/17/18 History Allergies Allergy/AdvReac Type Severity Reaction Status Date / Time ibuprofen Allergy Rash/Hives Verified 03/17/18 18:36 ketorolac [From Toradol] Allergy Anaphylaxis Verified 03/17/18 18:36 shellfish derived Allergy Anaphylaxis Verified 03/17/18 18:36 tramadol [From Ultram] Allergy Rash/Hives Verified 03/17/18 18:36 morphine AdvReac Nausea Verified 03/17/18 18:36 Exam Vital Signs Temp Pulse Pulse Resp BP BP Pulse Ox 03/17/18 18:19 98.5 F 88 16 139/89 98 03/17/18 17:38 98.3 F 88 18 139/80 98 03/17/18 16:46 98.9 F 94 18 141/80 96 03/17/18 13:00 99.8 F H 98 18 99 03/17/18 11:18 97.8 F 99 18 112/65 99 03/17/18 09:33 97.5 F L 120 H 20 143/84 99 Intake and Output 03/17/18 03/17/18 03/17/18 06:59 14:59 22:59 Other: Weight 67.132 kg 67.132 kg - OBG Physical Exam Abdomen: Patient has diffuse abdominal tenderness in all quadrants to light touch. Results Result Diagrams: 03/17/18 10:00 03/17/18 10:00 Abnormal Lab Results - Last 24 Hours (Table) 03/17/18 03/17/18 03/17/18 Range/Units 10:00 10:00 10:34 WBC 17.4 H (3.8-10.6) k/uL Neutrophils # 15.9 H (1.3-7.7) k/uL Lymphocytes # 0.7 L (1.0-4.8) k/uL Chloride 109 H (98-107) mmol/L Carbon Dioxide 21 L (22-30) mmol/L Glucose 210 H (74-99) mg/dL Plasma Lactic Acid Ruben (0.7-2.0) mmol/L AST 82 H (14-36) U/L ALT 86 H (9-52) U/L Urine Glucose (UA) 1+ H (Negative) Urine Blood Trace H (Negative) Urine Bacteria Occasional H (None) /hpf Urine Opiates Screen (NotDetected) Ur Oxycodone Screen (NotDetected) U Tricyclic Antidepress (NotDetected) U Benzodiazepines Scrn (NotDetected) 03/17/18 03/17/18 Range/Units 13:35 18:14 WBC (3.8-10.6) k/uL Neutrophils # (1.3-7.7) k/uL Lymphocytes # (1.0-4.8) k/uL Chloride (98-107) mmol/L Carbon Dioxide (22-30) mmol/L Glucose (74-99) mg/dL Plasma Lactic Acid Ruben 3.0 H* (0.7-2.0) mmol/L AST (14-36) U/L ALT (9-52) U/L Urine Glucose (UA) (Negative) Urine Blood (Negative) Urine Bacteria (None) /hpf Urine Opiates Screen Detected H (NotDetected) Ur Oxycodone Screen Detected H (NotDetected) U Tricyclic Antidepress Detected H (NotDetected) U Benzodiazepines Scrn Detected H (NotDetected) Microbiology - Last 24 Hours (Table) 03/17/18 11:20 Genital Culture - Preliminary Vaginal Assessment and Plan Assessment: This is a 48-year-old 2 para 1 female with a several day history of diffuse lower abdominal pain. From a gynecologic standpoint this patient has some brennen-/postmenopausal bleeding however the endometrium is only 4 mm. Pelvic ultrasound and CAT scan are unremarkable without evidence of pathology. Patient's clinical history is not suggestive of pelvic inflammatory disease. I suspect this is most likely gastrointestinal in etiology. There is no evidence of an acute gynecologic process at this time that would require surgery. Certainly she should be evaluated for her postmenopausal bleeding as an outpatient, however this is a chronic condition and not the source of her current pain. She has a very small fibroid at the fundus of the uterus which again is not the source of this pain. I would recommend continued IV antibiotics and general surgical evaluation. She is welcome to be referred as an outpatient upon discharge for evaluation of her postmenopausal bleeding. Thank you very much for this consultation. (1) Abdominal pain Current Visit: Yes Status: Acute Code(s): R10.9 - UNSPECIFIED ABDOMINAL PAIN SNOMED Code(s): 76446912 (2) Post-menopausal bleeding Current Visit: Yes Status: Acute Code(s): N95.0 - POSTMENOPAUSAL BLEEDING SNOMED Code(s): 40746933
[2018-03-17] MEDS: oxyCODONE-APAP 7.5-325MG 1 EACH TAB PO PRN (19:18)
[2018-03-17] MEDS: MORPHINE SULFATE 4 MG/ML SYRINGE IV PRN ×2 (20:22→23:42)
[2018-03-17] MEDS: GABAPENTIN 400 MG CAP PO SCH (20:23)
[2018-03-18] MEDS: SODIUM CHLORIDE 0.9% 1,000 ML IV SCH ×2 (00:52→12:58)
[2018-03-18 00:58] VITALS: RESP 16
[2018-03-18] MEDS: MORPHINE SULFATE 4 MG/ML SYRINGE IV PRN ×4 (02:37→12:58)
[2018-03-18] MEDS: oxyCODONE-APAP 7.5-325MG 1 EACH TAB PO PRN ×2 (04:48→13:30)
[2018-03-18 07:56] LABS: HCT 38.3 % (34.0-46.0); MCH 30.5 pg (25.0-35.0); MCHC 31.3 g/dL (31.0-37.0); MCV 97.5 fL (80.0-100.0); Mean Platelet Volume 6.3; Platelet Count 321 k/uL (150-450); RBC 3.93 m/uL (3.80-5.40); RDW 15.3 % (11.5-15.5); WBC 12.7 k/uL (3.8-10.6)
[2018-03-18 08:29] LABS: ALT 62 U/L (9-52); AST 34 U/L (14-36); Albumin 3.1 g/dL (3.5-5.0); Alkaline Phosphatase 86 U/L (38-126); Anion Gap 3 mmol/L; Blood Urea Nitrogen 9 mg/dL (7-17); Calcium 9.2 mg/dL (8.4-10.2); Carbon Dioxide 29 mmol/L (22-30); Chloride 108 mmol/L (98-107); Glucose 87 mg/dL (74-99); Potassium 5.2 mmol/L (3.5-5.1); Sodium 140 mmol/L (137-145); Total Bilirubin 0.3 mg/dL (0.2-1.3); Total Protein 5.7 g/dL (6.3-8.2)
[2018-03-18] MEDS: GABAPENTIN 400 MG CAP PO SCH (08:51)
[2018-03-18] MEDS ORDERED: PANTOPRAZOLE 40 MG/10 ML VIAL IV SCH (09:00)
[2018-03-18] MEDS ORDERED: Dextroamphetamine/Amphetamine [Adderall] PO SCH (09:00)
[2018-03-18] MEDS: LORazepam 2 MG/ML INJ IV PRN (09:46)
--- NOTE | 2018-03-18 14:09 | P.GSCN ---
<Lillian Perez - Last Filed: 03/18/18 13:53> History of Present Illness Consult date: 03/18/18 Reason for Consult: Abdominal pain elevated lactic acid History of present illness: A 48-year-old female presented to the emergency room on the day of admission to be evaluated for chief complaint of bilateral lower abdominal pain and pelvic pain. It's noted the patient has been in the emergency room 3 times this month for similar complaints. returned to the emergency room stated that the pain was not any better was seen in the emergency room department the night before for similar complaints. Patient states she became concerned when there was no noted improvement continued to have diffuse abdominal pain pushing into the pelvic area. Patient is a states she was having some abnormal vaginal discharge. No odor noted. Patient states she has chronic pain due to lower back pain sees a pain doctor takes Percocets at home. States her last bowel movement was yesterday was normal no blood noted in the stool. Last colonoscopy was greater than 10 years and was told that it was normal. Patient has had a CAT scan done on the and with contrast both reports were reviewed no significant interval change noted no free air, small stable right ovarian cyst. No significant bowel abnormality post appendectomy change noted post cholecystectomy changes noted. It's noted the patient has been seen by [facility] this admission. Recommendations reviewed noted who indicates that from a gynecologic patient has some brennen- postmenopausal bleeding. Pelvic ultrasound unremarkable without evidence of pathology. Recommending outpatient workup. Patient currently is resting in bed and does not appear in any acute distress states she continues to have diffuse abdominal pain rubs lower abdomen as to the reference point on admission the lactic acid was 3 repeat lactate lactic acid was 1.7 white count 12.7 afebrile states there's been no unintentional weight loss or weight loss no change in appetite no change in bowel habits Past Medical History Past Medical History: COPD, GERD/Reflux, Hypertension, Myocardial Infarction ([place] ), Pneumonia, Skin Disorder Additional Past Medical History / Comment(s): chronic back pain, lumbar degenerative disc disease, insomnia, hx shingles, hiatal hernia, kidney stones. 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, migraines,; obstetrical history is significant for 1 miscarriage and 1 term that required a section Last Myocardial Infarction Date:: 08/27/2016 History of Any Multi-Drug Resistant Organisms: MRSA Year Discovered:: 09/22/2009 MDRO Source:: neck Past Surgical History: Appendectomy, Back Surgery, Section, Cholecystectomy Additional Past Surgical History / Comment(s): Cervical spine fusion with insertion of a metal plate, EGD, colonoscopy, lumbar rhizotomy and radiofrequency ablation Past Anesthesia/Blood Transfusion Reactions: No Reported Reaction Additional Past Anesthesia/Blood Transfusion Reaction / Comm: CLAUSTROPHOBIA Smoking Status: Current every day smoker - Past Family History Father Family Medical History: Cancer Additional Family Medical History / Comment(s): Father at age 48 from lung cancer. Mother Family Medical History: Congestive Heart Failure (CHF), CVA/TIA Additional Family Medical History / Comment(s): Mother is alive at age 68. She has suffered from a CVA and has chronic back problems. Patient has 2 brothers and 4 sisters with no major medical problems. Medications and Allergies Home Medications Medication Instructions Recorded Confirmed Type clonazePAM [KlonoPIN] 0.5 mg PO BID 02/24/17 03/17/18 History Dextroamphetamine/Amphetamine 30 mg PO QAM 07/30/17 03/17/18 History [Adderall] Atenolol [Tenormin] 50 mg PO DAILY 08/14/17 03/17/18 History Albuterol Inhaler [Ventolin Hfa 2 puff INHALATION RT-QID PRN 08/28/17 03/17/18 History Inhaler] oxyCODONE HCL/ACETAMINOPHEN 1 tab PO TID PRN 03/16/18 03/17/18 History [Percocet 7.5-325 mg] Gabapentin [Neurontin] 400 mg PO TID 03/17/18 03/17/18 History Amoxic-Pot Clav 875-125Mg 1 tab PO Q12HR #30 tablet 03/18/18 Rx [Augmentin 875-125] Allergies Allergy/AdvReac Type Severity Reaction Status Date / Time ibuprofen Allergy Rash/Hives Verified 03/17/18 18:36 ketorolac [From Toradol] Allergy Anaphylaxis Verified 03/17/18 18:36 shellfish derived Allergy Anaphylaxis Verified 03/17/18 18:36 tramadol [From Ultram] Allergy Rash/Hives Verified 03/17/18 18:36 morphine AdvReac Nausea Verified 03/17/18 18:36 Surgical - Exam Vital Signs Temp Pulse Resp BP Pulse Ox 97.5 F L 120 H 20 143/84 99 03/17/18 09:33 03/17/18 09:33 03/17/18 09:33 03/17/18 09:33 03/17/18 09:33 GENERAL APPEARANCE: 48-year-old female patient is alert, . Resting in bed appears no acute distress VITAL SIGNS: Reviewed HEENT: Head is normocephalic and atraumatic. Pupils are equal and reactive. The nares are patent. Oropharynx is clear without lesions. NECK: Supple without lymphadenopathy. Traches midline. HEART: S1, S2. Regular rate and rhythm. No murmur noted LUNGS: No crackles or wheezes are heard. Sitting or movement bilaterally on room air ABDOMEN: Soft, nontender, nondistended with good bowel sounds. No peritoneal signs. No palpable organomegaly or masses. Bowel tones present no facial grimacing with palpitation to the abdominal wall towards no nausea vomiting urinating no difficulty state had a normal bowel movement yesterday no blood noted in stool EXTREMITIES: Normal skin color and turgor. No cyanosis, rash, ulceration, clubbing or edema. Radial pedal pulses are 2/4 bilaterally. NEUROLOGICAL: No focal deficits. Strength and sensation are grossly intact. Results Impression Present on admission leukocytosis with elevated lactic acid resolved unclear etiology chronic pain opiate dependency Normal Computed tomography scan abdomen pelvis no acute pathology 2 Report of vaginal bleeding with fibroid [facility] following workup to be done in an outpatient setting COPD was no evidence of an exacerbation History of an appendectomy and a cholecystectomy Plan No evidence of an acute surgical abdomen at this time Home meds as appropriate Advance diet as tolerated Further surgical recommendations pending Will follow with you DVT and GI prophylaxis Surgical consultation note dictated for Dr. Gordon The above impression and plan of care have been discussed and directed by signing physician. Lillian Perez nurse practitioner acting as scribe for signing physician. - Labs 03/18/18 07:34 03/18/18 07:34 Abnormal Lab Results - Last 24 Hours (Table) 03/17/18 03/17/18 03/18/18 Range/Units 13:35 18:14 07:34 WBC 12.7 H (3.8-10.6) k/uL Potassium (3.5-5.1) mmol/L Chloride (98-107) mmol/L Plasma Lactic Acid Ruben 3.0 H* (0.7-2.0) mmol/L ALT (9-52) U/L Total Protein (6.3-8.2) g/dL Albumin (3.5-5.0) g/dL Urine Opiates Screen Detected H (NotDetected) Ur Oxycodone Screen Detected H (NotDetected) U Tricyclic Antidepress Detected H (NotDetected) U Benzodiazepines Scrn Detected H (NotDetected) 03/18/18 Range/Units 07:34 WBC (3.8-10.6) k/uL Potassium 5.2 H (3.5-5.1) mmol/L Chloride 108 H (98-107) mmol/L Plasma Lactic Acid Ruben (0.7-2.0) mmol/L ALT 62 H (9-52) U/L Total Protein 5.7 L (6.3-8.2) g/dL Albumin 3.1 L (3.5-5.0) g/dL Urine Opiates Screen (NotDetected) Ur Oxycodone Screen (NotDetected) U Tricyclic Antidepress (NotDetected) U Benzodiazepines Scrn (NotDetected) Microbiology - Last 24 Hours (Table) 03/17/18 11:20 Genital Culture - Preliminary Vaginal Diabetes panel 03/18/18 Range/Units 07:34 Sodium 140 (137-145) mmol/L Potassium 5.2 H (3.5-5.1) mmol/L Chloride 108 H (98-107) mmol/L Carbon Dioxide 29 (22-30) mmol/L BUN 9 (7-17) mg/dL Creatinine 0.70 (0.52-1.04) mg/dL Glucose 87 (74-99) mg/dL Calcium 9.2 (8.4-10.2) mg/dL AST 34 (14-36) U/L ALT 62 H (9-52) U/L Alkaline Phosphatase 86 (38-126) U/L Total Protein 5.7 L (6.3-8.2) g/dL Albumin 3.1 L (3.5-5.0) g/dL Calcium panel 03/18/18 Range/Units 07:34 Calcium 9.2 (8.4-10.2) mg/dL Albumin 3.1 L (3.5-5.0) g/dL Pituitary panel 03/18/18 Range/Units 07:34 Sodium 140 (137-145) mmol/L Potassium 5.2 H (3.5-5.1) mmol/L Chloride 108 H (98-107) mmol/L Carbon Dioxide 29 (22-30) mmol/L BUN 9 (7-17) mg/dL Creatinine 0.70 (0.52-1.04) mg/dL Glucose 87 (74-99) mg/dL Calcium 9.2 (8.4-10.2) mg/dL Adrenal panel 03/18/18 Range/Units 07:34 Sodium 140 (137-145) mmol/L Potassium 5.2 H (3.5-5.1) mmol/L Chloride 108 H (98-107) mmol/L Carbon Dioxide 29 (22-30) mmol/L BUN 9 (7-17) mg/dL Creatinine 0.70 (0.52-1.04) mg/dL Glucose 87 (74-99) mg/dL Calcium 9.2 (8.4-10.2) mg/dL Total Bilirubin 0.3 (0.2-1.3) mg/dL AST 34 (14-36) U/L ALT 62 H (9-52) U/L Alkaline Phosphatase 86 (38-126) U/L Total Protein 5.7 L (6.3-8.2) g/dL Albumin 3.1 L (3.5-5.0) g/dL <Carmelina Gordon N - Last Filed: 03/18/18 16:17> Surgical - Exam Vital Signs Temp Pulse Resp BP Pulse Ox 97.5 F L 120 H 20 143/84 99 03/17/18 09:33 03/17/18 09:33 03/17/18 09:33 03/17/18 09:33 03/17/18 09:33 Results - Labs 03/18/18 07:34 03/18/18 07:34 Abnormal Lab Results - Last 24 Hours (Table) 03/17/18 03/18/18 03/18/18 Range/Units 18:14 07:34 07:34 WBC 12.7 H (3.8-10.6) k/uL Potassium 5.2 H (3.5-5.1) mmol/L Chloride 108 H (98-107) mmol/L ALT 62 H (9-52) U/L Total Protein 5.7 L (6.3-8.2) g/dL Albumin 3.1 L (3.5-5.0) g/dL Urine Opiates Screen Detected H (NotDetected) Ur Oxycodone Screen Detected H (NotDetected) U Tricyclic Antidepress Detected H (NotDetected) U Benzodiazepines Scrn Detected H (NotDetected) Microbiology - Last 24 Hours (Table) 03/17/18 13:35 Blood Culture - Preliminary Blood No Growth after 24 hours 03/17/18 11:20 Genital Culture - Preliminary Vaginal Diabetes panel 03/18/18 Range/Units 07:34 Sodium 140 (137-145) mmol/L Potassium 5.2 H (3.5-5.1) mmol/L Chloride 108 H (98-107) mmol/L Carbon Dioxide 29 (22-30) mmol/L BUN 9 (7-17) mg/dL Creatinine 0.70 (0.52-1.04) mg/dL Glucose 87 (74-99) mg/dL Calcium 9.2 (8.4-10.2) mg/dL AST 34 (14-36) U/L ALT 62 H (9-52) U/L Alkaline Phosphatase 86 (38-126) U/L Total Protein 5.7 L (6.3-8.2) g/dL Albumin 3.1 L (3.5-5.0) g/dL Calcium panel 03/18/18 Range/Units 07:34 Calcium 9.2 (8.4-10.2) mg/dL Albumin 3.1 L (3.5-5.0) g/dL Pituitary panel 03/18/18 Range/Units 07:34 Sodium 140 (137-145) mmol/L Potassium 5.2 H (3.5-5.1) mmol/L Chloride 108 H (98-107) mmol/L Carbon Dioxide 29 (22-30) mmol/L BUN 9 (7-17) mg/dL Creatinine 0.70 (0.52-1.04) mg/dL Glucose 87 (74-99) mg/dL Calcium 9.2 (8.4-10.2) mg/dL Adrenal panel 03/18/18 Range/Units 07:34 Sodium 140 (137-145) mmol/L Potassium 5.2 H (3.5-5.1) mmol/L Chloride 108 H (98-107) mmol/L Carbon Dioxide 29 (22-30) mmol/L BUN 9 (7-17) mg/dL Creatinine 0.70 (0.52-1.04) mg/dL Glucose 87 (74-99) mg/dL Calcium 9.2 (8.4-10.2) mg/dL Total Bilirubin 0.3 (0.2-1.3) mg/dL AST 34 (14-36) U/L ALT 62 H (9-52) U/L Alkaline Phosphatase 86 (38-126) U/L Total Protein 5.7 L (6.3-8.2) g/dL Albumin 3.1 L (3.5-5.0) g/dL
[2018-03-18] MEDS ORDERED: MORPHINE SULFATE 2 MG/ML SYRINGE IV PRN (14:10)
[2018-03-18 14:14] VITALS: BP 130/88; PULSE 85; TEMP 98.4
[2018-03-18 14:35] LABS: C. trachomatis,PCR Negative (Neg,Equiv); Chlamydia trachomatis Source Vagina; N. gonorrhoeae,PCR Negative (Neg,Equiv); Neisseria Source Vagina
--- NOTE | 2018-03-18 15:42 | P.DS ---
Providers Date of admission: 03/17/18 16:16 Attending physician: Laron Manning Consults: 03/17/18 16:19 Consult Physician Stat Consulting Provider: Carmelina Gordon Consult Reason/Comments: Abdominal pain, sepsis Do you want consulting provider notified?: Yes Consult Physician Stat Consulting Provider: Jackie Hirsch Consult Reason/Comments: Abdominal pain, fibroid, sepssi Do you want consulting provider notified?: Yes Primary care physician: Estelle Butterfield Hospital Course: -year-old female admitted with bilateral lower abdominal pain all the workup is negative. Patient had a CAT scan of the abdomen which is only significant for small [place] M of the uterus. Patient had postmenopausal bleeding because of which the gynecology evaluated the patient is recommending outpatient follow-up for post menopausal bleeding and do not believe [place] MIs contributing to her abdominal pain. Her abdominal pain is much better today. Patient was evaluated by general surgery as well and they do not believe there is any significant intra-abdominal acute abdominal pathology contributing to her symptoms of abdominal pain although has lactic acidosis which is mild cannot be explained may be related to dehydration and lateral use with improved with IV fluids. Patient also had leukocytosis. Etiology of all these symptoms is not clear. Abdomen is soft no evidence of any surgical abdomen patient will be given prescription for Augmentin empirically for any possible intra-abdominal process. PHYSICAL EXAMINATION: GENERAL: The patient is alert and oriented x3, not in any acute distress. Well developed, well nourished. HEENT: Pupils are round and equally reacting to light. EOMI. No scleral icterus. No conjunctival pallor. Normocephalic, atraumatic. No pharyngeal erythema. No thyromegaly. CARDIOVASCULAR: S1 and S2 present. No murmurs, rubs, or gallops. PULMONARY: Chest is clear to auscultation, no wheezing or crackles. ABDOMEN: Soft, mild bilateral lower abdominal tenderness, nondistended, normoactive bowel sounds. No palpable organomegaly. No rebound or rigidity Land's sign is negative. MUSCULOSKELETAL: No joint swelling or deformity. EXTREMITIES: No cyanosis, clubbing, or pedal edema. NEUROLOGICAL: Gross neurological examination did not reveal any focal deficits. SKIN: No rashes. Assessment and Plan Plan: -Bilateral lower abdominal pain with vaginal bleeding: The etiology is unclear. -Lactic acidosis with leukocytosis no clear-cut source of infection patient will be discharged on empiric antibiotics . -COPD without any acute exacerbation patient is trying to quit smoking presently smokes about 3-4 cigarettes a day. -Coronary artery diseas -hypertension Patient Condition at Discharge: Good Plan - Discharge Summary Discharge Rx Participant: Yes New Discharge Prescriptions: New Amoxic-Pot Clav 875-125Mg [Augmentin 875-125] 1 tab PO Q12HR #30 tablet No Action clonazePAM [KlonoPIN] 0.5 mg PO BID Dextroamphetamine/Amphetamine [Adderall] 30 mg PO QAM Atenolol [Tenormin] 50 mg PO DAILY Albuterol Inhaler [Ventolin Hfa Inhaler] 2 puff INHALATION RT-QID PRN PRN Reason: Shortness Of Breath oxyCODONE HCL/ACETAMINOPHEN [Percocet 7.5-325 mg] 1 tab PO TID PRN PRN Reason: Pain Gabapentin [Neurontin] 400 mg PO TID Discharge Medication List clonazePAM [KlonoPIN] 0.5 mg PO BID 02/24/17 [History] Dextroamphetamine/Amphetamine [Adderall] 30 mg PO QAM 07/30/17 [History] Atenolol [Tenormin] 50 mg PO DAILY 08/14/17 [History] Albuterol Inhaler [Ventolin Hfa Inhaler] 2 puff INHALATION RT-QID PRN 08/28/17 [ History] oxyCODONE HCL/ACETAMINOPHEN [Percocet 7.5-325 mg] 1 tab PO TID PRN 03/16/18 [ History] Gabapentin [Neurontin] 400 mg PO TID 03/17/18 [History] Amoxic-Pot Clav 875-125Mg [Augmentin 875-125] 1 tab PO Q12HR #30 tablet [Rx] Follow up Appointment(s)/Referral(s): Estelle Butterfield DO [Primary Care Provider] - 03/24/18 4:00 pm Discharge Disposition: HOME SELF-CARE
== END 2018-03-18 15:00 | disposition home or self-care (01) | DRG 760 ==
LOC: EC 09:31 → 3SUR 16:16
PROVIDERS: ADMIT Internal Medicine; ATTEND Internal Medicine
DX: N95.0 Postmenopausal bleeding (principal); E87.2 Acidosis; F11.20 Opioid dependence, uncomplicated; R10.2 Pelvic and perineal pain; D25.9 Leiomyoma of uterus, unspecified; E86.0 Dehydration; I10 Essential (primary) hypertension; J44.9 Chronic obstructive pulmonary disease, unspecified; K21.9 Gastro-esophageal reflux disease without esophagitis; I25.2 Old myocardial infarction; G89.29 Other chronic pain; M51.36 Other intervertebral disc degeneration, lumbar region; K44.9 Diaphragmatic hernia without obstruction or gangrene; L98.9 Disorder of the skin and subcutaneous tissue, unspecified; I25.10 Atherosclerotic heart disease of native coronary artery without angina pectoris; G43.909 Migraine, unspecified, not intractable, without status migrainosus; F41.9 Anxiety disorder, unspecified; F90.9 Attention-deficit hyperactivity disorder, unspecified type; F40.240 Claustrophobia; G47.00 Insomnia, unspecified; F17.210 Nicotine dependence, cigarettes, uncomplicated; Z71.6 Tobacco abuse counseling; Z79.899 Other long term (current) drug therapy; Z86.19 Personal history of other infectious and parasitic diseases; Z87.442 Personal history of urinary calculi; Z90.49 Acquired absence of other specified parts of digestive tract; Z98.1 Arthrodesis status; Z86.14 Personal history of Methicillin resistant Staphylococcus aureus infection; Z87.01 Personal history of pneumonia (recurrent); Z88.8 Allergy status to other drugs, medicaments and biological substances; Z88.5 Allergy status to narcotic agent; Z91.013 Allergy to seafood; Z80.1 Family history of malignant neoplasm of trachea, bronchus and lung; Z82.49 Family history of ischemic heart disease and other diseases of the circulatory system; Z82.3 Family history of stroke; Z82.69 Family history of other diseases of the musculoskeletal system and connective tissue
CPT/HCPCS: 36415; 74177; 76830; 80053; 80306; 81001; 81025; 82150; 83605; 83690; 85025; 85027; 87040; 87070; 87205; 87491; 87591; 87808; 96361; 96365; 96375; 96376; 99285

== ENCOUNTER 2018-03-19 13:44 | Emergency (ER) | payer OTHER ==
[2018-03-19 13:50] VITALS: RESP 18
[2018-03-19] MEDS ORDERED: ONDANSETRON 4 MG/2 ML VIAL IVP STA (14:32)
[2018-03-19] MEDS ORDERED: PANTOPRAZOLE 40 MG/10 ML VIAL IVP STA (14:32)
[2018-03-19] MEDS ORDERED: SODIUM CHLORIDE 0.9% 1,000 ML IV STA (14:32)
--- NOTE | 2018-03-19 14:42 | ED ---
Pediatric GI HPI - General Chief Complaint: Abdominal Pain Stated Complaint: abd pain Time Seen by Provider: 03/19/18 14:23 Source: patient, RN notes reviewed, old records reviewed Mode of arrival: ambulatory Limitations: no limitations - History of Present Illness Initial Comments: This is a 48 year old female with CC of abdominal pain, nausea. Patient reports that she was admitted and discharged yesterday. She was started on Augmentin for a possibility of intra-abdominal infection. She was evaluated by [facility] and general surgery, Patient will have any acute abdomen. She does have history of hiatal hernia. She reports that her pain is epigastric and feels like it's sharp and stabbing. Patient states the pain seems different today than it was on her previous admission. That time she had lower abdominal pain. Patient states that she's had no chest pain or shortness of breath. MD Complaint: nausea/vomiting - Related Data Home Medications Medication Instructions Recorded Confirmed clonazePAM [KlonoPIN] 0.5 mg PO BID 02/24/17 03/17/18 Dextroamphetamine/Amphetamine 30 mg PO QAM 07/30/17 03/17/18 [Adderall] Atenolol [Tenormin] 50 mg PO DAILY 08/14/17 03/17/18 Albuterol Inhaler [Ventolin Hfa 2 puff INHALATION RT-QID PRN 08/28/17 03/17/18 Inhaler] oxyCODONE HCL/ACETAMINOPHEN 1 tab PO TID PRN 03/16/18 03/17/18 [Percocet 7.5-325 mg] Gabapentin [Neurontin] 400 mg PO TID 03/17/18 03/17/18 Previous Rx's Medication Instructions Recorded Amoxic-Pot Clav 875-125Mg 1 tab PO Q12HR #30 tablet 03/18/18 [Augmentin 875-125] Allergies Allergy/AdvReac Type Severity Reaction Status Date / Time ibuprofen Allergy Rash/Hives Verified 03/19/18 13:50 ketorolac [From Toradol] Allergy Anaphylaxis Verified 03/19/18 13:50 shellfish derived Allergy Anaphylaxis Verified 03/19/18 13:50 tramadol [From Ultram] Allergy Rash/Hives Verified 03/19/18 13:50 morphine AdvReac Nausea Verified 03/19/18 13:50 Review of Systems ROS Statement: Those systems with pertinent positive or pertinent negative responses have been documented in the HPI. ROS Other: All systems not noted in ROS Statement are negative. Past Medical History Past Medical History: COPD, GERD/Reflux, Hypertension, Myocardial Infarction (ID ), Pneumonia, Skin Disorder Additional Past Medical History / Comment(s): chronic back pain, lumbar degenerative disc disease, insomnia, hx shingles, hiatal hernia, kidney stones. 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, migraines,; obstetrical history is significant for 1 miscarriage and 1 term that required a section Last Myocardial Infarction Date:: 08/27/2016 History of Any Multi-Drug Resistant Organisms: MRSA Date of last positivie culture/infection: 09/22/2009 MDRO Source:: neck Past Surgical History: Appendectomy, Back Surgery, Section, Cholecystectomy Additional Past Surgical History / Comment(s): Cervical spine fusion with insertion of a metal plate, EGD, colonoscopy, lumbar rhizotomy and radiofrequency ablation Past Anesthesia/Blood Transfusion Reactions: No Reported Reaction Additional Past Anesthesia/Blood Transfusion Reaction / Comment(s): CLAUSTROPHOBIA Past Psychological History: ADD/ADHD, Anxiety Smoking Status: Current every day smoker Past Alcohol Use History: None Reported Past Drug Use History: None Reported - Past Family History Father Family Medical History: Cancer Additional Family Medical History / Comment(s): Father at age 48 from lung cancer. Mother Family Medical History: Congestive Heart Failure (CHF), CVA/TIA Additional Family Medical History / Comment(s): Mother is alive at age 68. She has suffered from a CVA and has chronic back problems. Patient has 2 brothers and 4 sisters with no major medical problems. General Exam - General Exam Comments Initial Comments: This is a 48 year old female, no significant distress. Limitations: no limitations General appearance: alert, in no apparent distress Head exam: Present: atraumatic, normocephalic, normal inspection Eye exam: Present: normal appearance, PERRL, EOMI. Absent: scleral icterus, conjunctival injection, periorbital swelling ENT exam: Present: normal exam Neck exam: Present: normal inspection. Absent: tenderness, meningismus, lymphadenopathy Respiratory exam: Present: normal lung sounds bilaterally. Absent: respiratory distress, wheezes, rales, rhonchi, stridor Cardiovascular Exam: Present: regular rate, normal rhythm, normal heart sounds. Absent: systolic murmur, diastolic murmur, rubs, gallop, clicks GI/Abdominal exam: Present: soft, tenderness (epigastric tenderness), normal bowel sounds. Absent: distended, guarding, rebound, rigid Extremities exam: Present: normal inspection, full ROM, normal capillary refill. Absent: tenderness, pedal edema, joint swelling, calf tenderness Back exam: Present: normal inspection Neurological exam: Present: alert, oriented X3, CN II-XII intact Psychiatric exam: Present: normal affect, normal mood Skin exam: Present: warm, dry, intact, normal color. Absent: rash Course Vital Signs 03/19/18 03/19/18 03/19/18 13:47 15:11 16:16 Temperature 98.2 F Pulse Rate 130 H 118 H 106 H Respiratory 18 18 18 Rate Blood Pressure 127/91 111/81 135/88 O2 Sat by Pulse 98 97 98 Oximetry Medical Decision Making - Medical Decision Making This is a 48-year-old female presents today for evaluation. At this time Patient was lab work was obtained. Patient's heart rate was elevated when she came in. I do believe this is likely due to withdrawals from pain medication and benzodiazepine medication. Patient mass report was ran. She states that she was was 7 appointment with her PCP to get her anxiety and her pain meds but she was unable to obtain them. She was in the hospital that time. Her maps report shows that she was dispensed 120 oxycodone on 03/03/2018. Patient reports that today she's having this epigastric abdominal pain. She doesn't appear to be in any acute distress at this time. Her lab work including white blood cell count is actually improving from her admission. She is on Augmentin at this time. She did have a mildly elevated lactic acid most likely due to dehydration. She is given 2 L of fluids. At this time Patient will be discharged. We'll give her one dose of it and takes any medication here prior to discharge. Discussion is follow-up with her PCP and GI specialist and surgeon. Patient understands treatment plan will comply. Return parameters were discussed. - Lab Data Result diagrams: 03/19/18 15:14 03/19/18 15:14 Lab Results 03/19/18 03/19/18 03/19/18 Range/Units 15:14 15:14 15:14 WBC 12.3 H (3.8-10.6) k/uL RBC 4.94 (3.80-5.40) m/uL Hgb 14.8 (11.4-16.0) gm/dL Hct 46.6 H (34.0-46.0) % MCV 94.3 (80.0-100.0) fL MCH 30.0 (25.0-35.0) pg MCHC 31.8 (31.0-37.0) g/dL RDW 14.9 (11.5-15.5) % Plt Count 428 (150-450) k/uL Neutrophils % 74 % Lymphocytes % 13 % Monocytes % 9 % Eosinophils % 3 % Basophils % 0 % Neutrophils # 9.1 H (1.3-7.7) k/uL Lymphocytes # 1.6 (1.0-4.8) k/uL Monocytes # 1.1 H (0-1.0) k/uL Eosinophils # 0.3 (0-0.7) k/uL Basophils # 0.0 (0-0.2) k/uL PT (9.0-12.0) sec INR (<1.2) APTT (22.0-30.0) sec Sodium 145 (137-145) mmol/L Potassium 4.1 (3.5-5.1) mmol/L Chloride 108 H (98-107) mmol/L Carbon Dioxide 25 (22-30) mmol/L Anion Gap 12 mmol/L BUN 8 (7-17) mg/dL Creatinine 0.71 (0.52-1.04) mg/dL Est GFR (CKD-EPI)AfAm >90 (>60 ml/min/1.73 sqM) Est GFR (CKD-EPI)NonAf >90 (>60 ml/min/1.73 sqM) Glucose 102 H (74-99) mg/dL Plasma Lactic Acid Ruben 2.1 H* (0.7-2.0) mmol/L Calcium 10.1 (8.4-10.2) mg/dL Total Bilirubin 0.4 (0.2-1.3) mg/dL AST 21 (14-36) U/L ALT 47 (9-52) U/L Alkaline Phosphatase 115 (38-126) U/L Troponin I (0.000-0.034) ng/mL Total Protein 7.4 (6.3-8.2) g/dL Albumin 4.2 (3.5-5.0) g/dL Amylase 43 (30-110) U/L Lipase 47 (23-300) U/L Urine Color Urine Appearance (Clear) Urine pH (5.0-8.0) Ur Specific [place] (1.001-1.035) Urine Protein (Negative) Urine Glucose (UA) (Negative) Urine Ketones (Negative) Urine Blood (Negative) Urine Nitrite (Negative) Urine Bilirubin (Negative) Urine Urobilinogen (<2.0) mg/dL Ur Leukocyte Esterase (Negative) Urine RBC (0-5) /hpf Urine WBC (0-5) /hpf Ur Squamous Epith Cells (0-4) /hpf Urine Bacteria (None) /hpf Urine Opiates Screen (NotDetected) Ur Oxycodone Screen (NotDetected) Urine Methadone Screen (NotDetected) Ur Propoxyphene Screen (NotDetected) Ur Barbiturates Screen (NotDetected) U Tricyclic Antidepress (NotDetected) Ur Phencyclidine Scrn (NotDetected) Ur Amphetamines Screen (NotDetected) U Methamphetamines Scrn (NotDetected) U Benzodiazepines Scrn (NotDetected) Urine Cocaine Screen (NotDetected) U Marijuana (THC) Screen (NotDetected) 03/19/18 03/19/18 03/19/18 Range/Units 15:14 15:14 15:14 WBC (3.8-10.6) k/uL RBC (3.80-5.40) m/uL Hgb (11.4-16.0) gm/dL Hct (34.0-46.0) % MCV (80.0-100.0) fL MCH (25.0-35.0) pg MCHC (31.0-37.0) g/dL RDW (11.5-15.5) % Plt Count (150-450) k/uL Neutrophils % % Lymphocytes % % Monocytes % % Eosinophils % % Basophils % % Neutrophils # (1.3-7.7) k/uL Lymphocytes # (1.0-4.8) k/uL Monocytes # (0-1.0) k/uL Eosinophils # (0-0.7) k/uL Basophils # (0-0.2) k/uL PT 9.4 (9.0-12.0) sec INR 0.9 (<1.2) APTT 24.3 (22.0-30.0) sec Sodium (137-145) mmol/L Potassium (3.5-5.1) mmol/L Chloride (98-107) mmol/L Carbon Dioxide (22-30) mmol/L Anion Gap mmol/L BUN (7-17) mg/dL Creatinine (0.52-1.04) mg/dL Est GFR (CKD-EPI)AfAm (>60 ml/min/1.73 sqM) Est GFR (CKD-EPI)NonAf (>60 ml/min/1.73 sqM) Glucose (74-99) mg/dL Plasma Lactic Acid [place] (0.7-2.0) mmol/L Calcium (8.4-10.2) mg/dL Total Bilirubin (0.2-1.3) mg/dL AST (14-36) U/L ALT (9-52) U/L Alkaline Phosphatase (38-126) U/L Troponin I <0.012 (0.000-0.034) ng/mL Total Protein (6.3-8.2) g/dL Albumin (3.5-5.0) g/dL Amylase (30-110) U/L Lipase (23-300) U/L Urine Color Colorless Urine Appearance Clear (Clear) Urine pH 6.5 (5.0-8.0) Ur Specific [place] 1.002 (1.001-1.035) Urine Protein Negative (Negative) Urine Glucose (UA) Negative (Negative) Urine Ketones Negative (Negative) Urine Blood Trace H (Negative) Urine Nitrite Negative (Negative) Urine Bilirubin Negative (Negative) Urine Urobilinogen <2.0 (<2.0) mg/dL Ur Leukocyte Esterase Negative (Negative) Urine RBC <1 (0-5) /hpf Urine WBC <1 (0-5) /hpf Ur Squamous Epith Cells <1 (0-4) /hpf Urine Bacteria Rare H (None) /hpf Urine Opiates Screen Not Detected (NotDetected) Ur Oxycodone Screen Not Detected (NotDetected) Urine Methadone Screen Not Detected (NotDetected) Ur Propoxyphene Screen Not Detected (NotDetected) Ur Barbiturates Screen Not Detected (NotDetected) U Tricyclic Antidepress Detected H (NotDetected) Ur Phencyclidine Scrn Not Detected (NotDetected) Ur Amphetamines Screen Not Detected (NotDetected) U Methamphetamines Scrn Not Detected (NotDetected) U Benzodiazepines Scrn Not Detected (NotDetected) Urine Cocaine Screen Not Detected (NotDetected) U Marijuana (THC) Screen Not Detected (NotDetected) 03/19/18 15:09 EKG shows sinus tachycardia, inferior infarct. Anterior infarct age- indeterminate. Ventricular rate of 1 23 bpm. MN interval is 148 ms. QRS duration 70 ms. QT QTc is 368/452. - Radiology Data Radiology results: report reviewed Chest x-ray is negative for any acute process. Disposition Clinical Impression: Epigastric abdominal pain, Anxiety Disposition: HOME SELF-CARE Condition: Good Instructions: Abdominal Pain (ED) Additional Instructions: Patient is a follow-up with primary care physician. Return to the emergency department if any alarming signs or symptoms occur. Is patient prescribed a controlled substance at d/c from ED?: No Referrals: Estelle Butterfield DO [Primary Care Provider] - 1-2 days Time of Disposition: 16:28
[2018-03-19 15:28] LABS: Appearance,Urine Clear (Clear); Bacteria,Urine Rare /hpf; Bilirubin,Urine Negative (Negative); Blood,Urine Trace (Negative); Color,Urine Colorless; Glucose,Urine (UA) Negative (Negative); Ketones,Urine Negative (Negative); Leukocyte Esterase,Urine Negative (Negative); Nitrite,Urine Negative (Negative); PH, Urine 6.5 (5.0-8.0); Protein,Urine Negative (Negative); RBC,Urine <1 /hpf (0-5); Specific Gravity,Urine 1.002 (1.001-1.035); Squamous Epithelial Cell,Urine <1 /hpf (0-4); Urobilinogen,Urine <2.0 mg/dL (<2.0); WBC,Urine <1 /hpf (0-5)
[2018-03-19 15:35] LABS: Basophils % (A) 0 %; Eosinophils # (A) 0.3 k/uL (0-0.7); Eosinophils % (A) 3 %; HCT 46.6 % (34.0-46.0); HGB 14.8 gm/dL (11.4-16.0); INR 0.9 (<1.2); Lymphocytes # (A) 1.6 k/uL (1.0-4.8); Lymphocytes % (A) 13 %; MCHC 31.8 g/dL (31.0-37.0); MCV 94.3 fL (80.0-100.0); Mean Platelet Volume 6.6; Monocytes # (A) 1.1 k/uL (0-1.0); Monocytes % (A) 9 %; Neutrophils # (A) 9.1 k/uL (1.3-7.7); Neutrophils % (A) 74 %; Partial Thromboplastin Time 24.3 sec (22.0-30.0); Platelet Count 428 k/uL (150-450); Prothrombin Time 9.4 sec (9.0-12.0); RBC 4.94 m/uL (3.80-5.40); RDW 14.9 % (11.5-15.5); WBC 12.3 k/uL (3.8-10.6)
[2018-03-19 15:37] LABS: ALT 47 U/L (9-52); AST 21 U/L (14-36); Albumin 4.2 g/dL (3.5-5.0); Alkaline Phosphatase 115 U/L (38-126); Amylase 43 U/L (30-110); Anion Gap 12 mmol/L; Blood Urea Nitrogen 8 mg/dL (7-17); Calcium 10.1 mg/dL (8.4-10.2); Carbon Dioxide 25 mmol/L (22-30); Chloride 108 mmol/L (98-107); Glucose 102 mg/dL (74-99); Lipase 47 U/L (23-300); Potassium 4.1 mmol/L (3.5-5.1); Sodium 145 mmol/L (137-145); Total Bilirubin 0.4 mg/dL (0.2-1.3); Total Protein 7.4 g/dL (6.3-8.2)
[2018-03-19 15:41] LABS: Amphetamine Screen,Urine Not Detected (NotDetected); Barbiturate Screen,Urine Not Detected (NotDetected); Benzodiazepines Screen,Urine Not Detected (NotDetected); Cocaine Screen,Urine Not Detected (NotDetected); Methadone Screen, Urine Not Detected (NotDetected); Opiate Screen,Urine Not Detected (NotDetected); Oxycodone Screen, Urine Not Detected (NotDetected); Phencyclidine Screen,Urine Not Detected (NotDetected); Tricyclic Antidepressant,Urine Detected (NotDetected); Urn Cannabinoid Scrn Not Detected (NotDetected)
[2018-03-19] MEDS ORDERED: SODIUM CHLORIDE 0.9% 1,000 ML IV ONE (15:43)
[2018-03-19] MEDS ORDERED: diphenhydrAMINE 50 MG/ML 1 ML VIAL IVP STA (15:49)
[2018-03-19] MEDS ORDERED: METOCLOPRAMIDE 5 MG/ML 2 ML VIAL IVP STA (15:49)
[2018-03-19] MEDS: KETOROLAC 30 MG/ML 1 ML VIAL IVP STA ×2 (16:03→16:05)
--- NOTE | 2018-03-19 16:07 | XR ---
EXAMINATION TYPE: XR chest 2V DATE OF EXAM: 03/19/2018 COMPARISON: Prior chest 09/19/2017 HISTORY: Epigastric pain TECHNIQUE: Frontal and lateral views of the chest are obtained. FINDINGS: There are overlying cardiac leads. Postop change noted to the cervical spine. Cardiac medi astinal silhouette, pulmonary vascularity and iggy are stable. No evident airspace disease, pneumotho rax, or pleural effusion. IMPRESSION: No acute cardiopulmonary process.
[2018-03-19] MEDS ORDERED: MORPHINE SULFATE 2 MG/ML SYRINGE IVP STA (16:11)
[2018-03-19] MEDS ORDERED: LORazepam 1 MG TAB PO STA (16:28)
[2018-03-19 16:52] VITALS: BP 135/94; PULSE 84; TEMP 98.6
== END 2018-03-19 16:54 | disposition home or self-care (01) ==
LOC: EC 13:44
DX: R10.13 Epigastric pain (principal); F41.9 Anxiety disorder, unspecified; R11.0 Nausea; J44.9 Chronic obstructive pulmonary disease, unspecified; I10 Essential (primary) hypertension; I25.2 Old myocardial infarction; F90.9 Attention-deficit hyperactivity disorder, unspecified type; F17.200 Nicotine dependence, unspecified, uncomplicated; Z86.14 Personal history of Methicillin resistant Staphylococcus aureus infection; Z90.49 Acquired absence of other specified parts of digestive tract; Z98.1 Arthrodesis status; Z98.890 Other specified postprocedural states; Z79.899 Other long term (current) drug therapy; Z88.5 Allergy status to narcotic agent; Z88.6 Allergy status to analgesic agent; Z91.013 Allergy to seafood
CPT/HCPCS: 99284; 96374; 96375 ×4; 96361 ×2; 36415; 93005; 80053; 82150; 83605; 83690; 84484; 85025; 85610; 85730; 81001; 87040; 80306; 71046; J1200; J2765; J2405; J2270; C9113

== ENCOUNTER 2018-04-14 07:27 | Day surgery (SDC) | payer OTHER ==
[2018-04-14 08:27] VITALS: RESP 18; TEMP 97.5
[2018-04-14] MEDS ORDERED: LIDOCAINE 1% 20 ML VIAL (10MG/ML) FOR IV START INTRADERMA ONE (08:27)
[2018-04-14] MEDS ORDERED: LACTATED RINGERS 1,000 ML IV ONE (08:27)
[2018-04-14] MEDS ORDERED: HYDROmorphone 0.5 MG/0.5 ML SYRINGE IVP STA (09:02)
[2018-04-14] MEDS ORDERED: IV FLUID CONTINUATION 1,000 ML IV ONE (09:07)
--- NOTE | 2018-04-14 09:08 | FL ---
EXAMINATION TYPE: FL guided pain mgmt statistic DATE OF EXAM: 04/14/2018 HISTORY: LUMBAR EPI INJ 2 SEC FLUORO LUMBAR EPI INJ 2 SEC FLUORO
[2018-04-14 09:35] VITALS: BP 125/78; PULSE 78
--- NOTE | 2018-04-20 15:04 | P.PCN ---
Date of Procedure: 04/14/18 Procedure(s) Performed: PREOPERATIVE DIAGNOSIS: 1- Lumbar Degenerative Disc Diseases 2-Lumbar spondylosis with Facet arthropathy without myelopathy. 3-right iliolumbar ligament neurological. POSTOPERATIVE DIAGNOSIS: 1-Lumber Degenerative Disc Diseases 2-Lumbar spondylosis with Facet arthropathy without myelopathy. 3-right iliolumbar ligament neuralgia. PROCEDURE 1. Lumbar epidural steroid injection under fluoroscopic guidance at the L5-S1 level. 2. Lumbar epidurogram. 3-right iliolumbar ligament steroid injection under fluoroscopy guidance. ANESTHESIA: Local with 1% lidocaine 3 ml and , moderate sedation with intravenous Versed 2 mg ,and fentanyle 100 Mcg EBL: Minimal PROCEDURE INDICATION: The patient with low back pain and radiculitis symptoms unresponsive to conservative treatment. Fluoroscopy was used to optimize visualization of the needle placement and to maximize safety. PROCEDURE DESCRIPTION / TECHNIQUE: The patient was seen and identified in the preoperative area. Risks, benefits , complications including but not limited to infections ,bleeding ,allergic reaction to the medications ,nerve damage and not complete pain releife , and alternatives were discussed with the patient. The patient agreed to proceed with the procedure and signed the consent. IV was started, and vital signs were stable. Patient was taken to the OR and time out was completed. The patient was placed in the prone position on procedure table and a pillow was placed under the abdomen to reduce lumbar lordosis. The lumbosacral area was prepped and draped in the usual sterile fashion.ere closely monitored during the procedure. Conscious sedation was used during the procedure to decrease patients anxiety. Vital signs was monitered during the entire procedure. Using anterior-posterior fluoroscopy, the L5-S1 interlaminar space was identified and the skin over this site was marked and then infiltrated with 1% lidocaine subcutaneously. Subsequently, a 20-gauge Tuohy epidural needle was inserted and advanced toward the epidural space using the ``Loss of resistance technique and guided by AP and lateral fluoroscopy. The correct needle position in the epidural space was verified with the injection of 2 mL of the water soluble contrast dye Isovue 200 contrast and observing an excellent epidurogram with the epidural spread of the dye, after negative aspiration for blood and CSF and in the absence of paresthesias. Again after negative aspiration, a 6 ml mixture containing 60 mg of Depo-Medrol and 2 ml of preservative free Normal Saline, and 2 ml of preservative free lidocaine 1% solution was injected and a washout of epidurogram was seen. Needle withdrawn intact. The procedure note for the right iliolumbar ligament. Injection= using 22- gauge spinal needle advanced slowly under fluoroscopy and placed in the area between the transverse process of L5-S1 on the right side and the sacral esha needle placement confirmed under fluoroscopy and after negative aspiration 5 ML of ropivacaine 0.5% mixed with 20 mg of Depo-Medrol , injected at the location of the right iliolumbar ligament , injections and after negative aspiration was no paresthesia during the injection, COMPLICATIONS: None DISPOSITION / PLANS: The patient was placed in a supine position and transferred to the recovery area in a stable condition for observation. There was no evidence of lower extremity motor or sensory deficit after the procedure. Patient was discharged from the recovery room after meeting discharge criteria. Home discharge instructions were given to the patient by the staff. The patient was reexamined prior to discharge. The patient will schedule a follow up in the clinic in 2-4 weeks.
== END 2018-04-14 09:53 | disposition home or self-care (01) ==
LOC: ORPAIN 07:27
PROVIDERS: ATTEND Specialist
DX: M47.26 Other spondylosis with radiculopathy, lumbar region (principal); G58.8 Other specified mononeuropathies; M51.16 Intervertebral disc disorders with radiculopathy, lumbar region
CPT/HCPCS: 81025; 20550; 62323; J2250; J1030; J3010; J1170; Q9966

== ENCOUNTER → 2018-05-25 | Outpatient (CLI) | payer OTHER ==
[2018-05-25 12:57] VITALS: BP 140/88; PULSE 110; RESP 18
--- NOTE | 2018-05-25 13:33 | P.PN ---
Subjective Progress Note Date: 05/25/18 This is a 48-year-old lady with history of chronic lower back pain with radiation to the right lower extremity down to the right foot with numbness and tingling in no specific radicular distribution. The patient denies any bowel or bladder dysfunction however she feels more weakness in the right leg. She has been using 4 pills a day of Percocet 10 mg. The patient had a recent lumbar epidural steroid injection with very limited results. Today, pt denies new-onset weakness, bowel/bladder incontinence, or any other signs or symptoms of cauda equina syndrome. There are no signs of acute intoxication, and no indications of medication diversion or overuse. In addition to above, 13-point review of systems is also negative for chest pain , shortness of breath, changes in vision, changes in hearing, new onset weakness , abdominal pain, diarrhea, extreme fatigue, malaise, fever, skin changes, homicidal or suicidal ideation, or bowel or bladder incontinence. Vital Signs: Reviewed in EMR Gen: AAOx3, NAD HEENT: PERRLA,hearing grossly normal Pulm: resp unlabored,CTA Heart:S1,S2, No [place] Neck: supple, trachea midline Neuro exam of the lower extremities: Decreased right knee flexion and extension to 4 out of 5. Straight leg raising test: Negative bilaterally Tenderness in the paravertebral musculature: Positive on the right side Neuro: CN II-XII grossly intact, Imaging: Reviewed in EMR/chart Assessment: Lumbar spondylosis without myelopathy Right lumbar radiculopathy Plan: 1. Explanation: Opioid and psychological risk scores were reviewed. Diagnoses , prognoses, and multiple treatment options including but not limited to physical therapy, interventional therapies, adjuvant medical therapies, narcotic medication therapies, and surgery were discussed with the patient and all questions were answered to the patient's satisfaction. 2. Opioid agreement: Signed with the patient and the patient is warned not to use opioids while driving or before driving and not to combine opioids with benzodiazepines or alcohol. 3. Counseling: The patient was counseled extensively on SMOKING CESSATION, BODY MASS INDEX, EXERCISE. Specifically, the patient was instructed regarding the importance of smoking cessation, obesity, and exercise in the context of both chronic pain and overall health. 4. Procedures: None at this point 5. Consultations: None 6. Investigations: I will send the patient to have an MRI on the lumbar spine without contrast 7. Medications: I will decrease her Percocet to 3 pills a day of the 75 mg pills. 8. Disposition: Return to clinic in 2 months 9. Maps were reviewed and were appropriate. Objective - Vital Signs Vital signs: Vital Signs Temp Pulse 110 H 05/25/18 12:51 Resp 18 05/25/18 12:51 BP 140/88 05/25/18 12:51 Pulse Ox 96 05/25/18 12:51 Intake & Output 05/24/18 05/25/18 05/25/18 18:59 06:59 18:59 Weight 64.41 kg
== END ==
LOC: PNWHC3 12:05
PROVIDERS: ATTEND Anesthesiology
DX: M47.26 Other spondylosis with radiculopathy, lumbar region (principal); Z79.891 Long term (current) use of opiate analgesic
CPT/HCPCS: 99211

== ENCOUNTER 2018-07-06 18:06 | Emergency (ER) | payer OTHER ==
[2018-07-06] MEDS ORDERED: HYDROmorphone 1 MG/ML 1 ML SYRINGE IVP STA ×2 (20:24→22:46)
[2018-07-06] MEDS ORDERED: ONDANSETRON 4 MG/2 ML VIAL IVP STA (20:24)
[2018-07-06 20:49] LABS: Basophils % (A) 0 %; Eosinophils # (A) 0.4 k/uL (0-0.7); Eosinophils % (A) 4 %; HCT 43.1 % (34.0-46.0); HGB 14.4 gm/dL (11.4-16.0); Lymphocytes # (A) 2.2 k/uL (1.0-4.8); Lymphocytes % (A) 23 %; MCH 31.6 pg (25.0-35.0); MCHC 33.5 g/dL (31.0-37.0); MCV 94.4 fL (80.0-100.0); Mean Platelet Volume 6.8; Monocytes # (A) 0.9 k/uL (0-1.0); Monocytes % (A) 9 %; Neutrophils # (A) 5.8 k/uL (1.3-7.7); Neutrophils % (A) 62 %; Platelet Count 352 k/uL (150-450); RBC 4.57 m/uL (3.80-5.40); RDW 12.8 % (11.5-15.5); WBC 9.5 k/uL (3.8-10.6)
[2018-07-06 20:59] LABS: INR 0.8 (<1.2); Partial Thromboplastin Time 25.4 sec (22.0-30.0); Prothrombin Time 9.4 sec (9.0-12.0)
[2018-07-06 21:01] LABS: Albumin 3.7 g/dL (3.5-5.0); Amylase 41 U/L (30-110); Anion Gap 5 mmol/L; Blood Urea Nitrogen 9 mg/dL (7-17); Calcium 9.9 mg/dL (8.4-10.2); Carbon Dioxide 28 mmol/L (22-30); Chloride 108 mmol/L (98-107); Glucose 112 mg/dL (74-99); Lipase 63 U/L (23-300); Sodium 141 mmol/L (137-145); Total Bilirubin 0.4 mg/dL (0.2-1.3); Total Protein 6.9 g/dL (6.3-8.2)
--- NOTE | 2018-07-06 21:06 | ED ---
Abdominal Pain HPI - General Source: patient, RN notes reviewed, old records reviewed Mode of arrival: wheelchair Limitations: no limitations <Diann Huerta - Last Filed: 07/07/18 00:19> <Carmel Soto - Last Filed: 07/07/18 00:36> - General Chief Complaint: Abdominal Pain Stated Complaint: Abd Pain Time Seen by Provider: 07/06/18 19:56 - History of Present Illness Initial Comments: 48-year-old female presents emergency Department after stating MRI. She reports that she was laying down and receiving her MRI which started some lower abdominal pain. Patient states that she's had some diarrhea for the past few days. She states that she's not had pain up until completing her MRI. Patient states that she's had no nausea or vomiting. She denies any recent fever or chills. She denies any changes in urination. No bloody diarrhea or anything today. Patient states that she has never had a history of diverticulitis. She states the pain does not radiate towards her back. It's only in the lower abdomen. (Diann Huerta) - Related Data Home Medications Medication Instructions Recorded Confirmed clonazePAM [KlonoPIN] 0.5 mg PO BID 02/24/17 07/06/18 Dextroamphetamine/Amphetamine 30 mg PO QAM 07/30/17 07/06/18 [Adderall] Atenolol [Tenormin] 50 mg PO DAILY 08/14/17 07/06/18 oxyCODONE HCL/ACETAMINOPHEN 1 tab PO TID PRN 03/16/18 07/06/18 [Percocet 7.5-325 mg] Gabapentin [Neurontin] 400 mg PO TID 03/17/18 07/06/18 Allergies Allergy/AdvReac Type Severity Reaction Status Date / Time ibuprofen Allergy Rash/Hives Verified 07/06/18 19:59 ketorolac [From Toradol] Allergy Anaphylaxis Verified 07/06/18 19:59 shellfish derived Allergy Anaphylaxis Verified 07/06/18 19:59 tramadol [From Ultram] Allergy Rash/Hives Verified 07/06/18 19:59 morphine AdvReac Nausea Verified 07/06/18 19:59 Review of Systems ROS Other: All systems not noted in ROS Statement are negative. <Diann Huerta - Last Filed: 07/07/18 00:19> ROS Other: All systems not noted in ROS Statement are negative. <CharlesCarmel P - Last Filed: 07/07/18 00:36> ROS Statement: Those systems with pertinent positive or pertinent negative responses have been documented in the HPI. Past Medical History Past Medical History: COPD, GERD/Reflux, Hypertension, Myocardial Infarction ([place] ), Pneumonia, Skin Disorder Additional Past Medical History / Comment(s): chronic back pain, lumbar degenerative disc disease, insomnia, hx shingles, hiatal hernia, kidney stones. 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, migraines,; obstetrical history is significant for 1 miscarriage and 1 term that required a section Last Myocardial Infarction Date:: 08/27/2016 History of Any Multi-Drug Resistant Organisms: MRSA Date of last positivie culture/infection: 09/22/2009 MDRO Source:: neck Past Surgical History: Appendectomy, Back Surgery, Section, Cholecystectomy Additional Past Surgical History / Comment(s): Cervical spine fusion with insertion of a metal plate, EGD, colonoscopy, lumbar rhizotomy and radiofrequency ablation Past Anesthesia/Blood Transfusion Reactions: No Reported Reaction Additional Past Anesthesia/Blood Transfusion Reaction / Comment(s): CLAUSTROPHOBIA Past Psychological History: ADD/ADHD, Anxiety Smoking Status: Current every day smoker Past Alcohol Use History: None Reported Past Drug Use History: None Reported - Past Family History Father Family Medical History: Cancer Additional Family Medical History / Comment(s): Father at age 48 from lung cancer. Mother Family Medical History: Congestive Heart Failure (CHF), CVA/TIA Additional Family Medical History / Comment(s): Mother is alive at age 68. She has suffered from a CVA and has chronic back problems. Patient has 2 brothers and 4 sisters with no major medical problems. <Diann Huerta - Last Filed: 07/07/18 00:19> General Exam Limitations: no limitations General appearance: alert, in no apparent distress Head exam: Present: atraumatic, normocephalic, normal inspection Eye exam: Present: normal appearance, PERRL, EOMI. Absent: scleral icterus, conjunctival injection, periorbital swelling ENT exam: Present: normal exam, mucous membranes moist Neck exam: Present: normal inspection. Absent: tenderness, meningismus, lymphadenopathy Respiratory exam: Present: normal lung sounds bilaterally. Absent: respiratory distress, wheezes, rales, rhonchi, stridor Cardiovascular Exam: Present: regular rate, normal rhythm, normal heart sounds. Absent: systolic murmur, diastolic murmur, rubs, gallop, clicks GI/Abdominal exam: Present: soft, tenderness (Lower abdominal tenderness), normal bowel sounds. Absent: distended, guarding, rebound, rigid Extremities exam: Present: normal inspection, full ROM, normal capillary refill. Absent: tenderness, pedal edema, joint swelling, calf tenderness Back exam: Present: normal inspection Neurological exam: Present: alert, oriented X3, CN II-XII intact Psychiatric exam: Present: normal affect, normal mood Skin exam: Present: warm, dry, intact, normal color. Absent: rash <Diann Huerta - Last Filed: 07/07/18 00:19> <Carmel Soto - Last Filed: 07/07/18 00:36> - General Exam Comments Initial Comments: 48-year-old female. Alert and oriented. No distress. (Diann Huerta) Vital Signs 07/06/18 07/06/18 18:15 23:52 Temperature 98.2 F 97.9 F Pulse Rate 109 H 90 Respiratory 20 18 Rate Blood Pressure 128/75 124/93 O2 Sat by Pulse 99 97 Oximetry Medical Decision Making - Lab Data Result diagrams: 07/06/18 20:00 07/06/18 20:00 - Radiology Data Radiology results: report reviewed <Diann Huerta - Last Filed: 07/07/18 00:19> - Lab Data Result diagrams: 07/06/18 20:00 07/06/18 20:00 <Carmel Soto - Last Filed: 07/07/18 00:36> - Medical Decision Making 48-year-old female well-known to emergency department today presents emergency Department with abdominal pain after receiving MRI. Patient's symptoms started promptly when she was then MRI out patiently for lower back pain. Patient has had no vomiting. No fever or chills. She cleansed lower abdominal tenderness. Patient's labwork was reviewed and unremarkable. She does have hematuria. Urine culture obtained. No signs of UTI. With hematuria Patient states that it does feel somewhat like previous kidney stone. male passed a small less than 2 mm stone. Patient does exhibit pain med seeking qualities. She does report no significant back pain with this. A did do a CT of the abdomen and pelvis which was negative for any acute process. Patient is on multiple pain meds at home. Discussed she can follow-up with her primary care provider and take her at home pain meds. All questions answered return parameters were discussed. (Diann Huerta) I was available for consultation in the emergency department. The history and physical exam were done by the midlevel provider. I was consulted for this patient's care. I reviewed the case with the midlevel provider and based on their presentation of the patient, I agree with the assessment, medical decision making and plan of care as documented. (Carmel Soto) - Lab Data Lab Results 07/06/18 07/06/18 07/06/18 Range/Units 20:00 20:00 20:00 WBC 9.5 (3.8-10.6) k/uL RBC 4.57 (3.80-5.40) m/uL Hgb 14.4 (11.4-16.0) gm/dL Hct 43.1 (34.0-46.0) % MCV 94.4 (80.0-100.0) fL MCH 31.6 (25.0-35.0) pg MCHC 33.5 (31.0-37.0) g/dL RDW 12.8 (11.5-15.5) % Plt Count 352 (150-450) k/uL Neutrophils % 62 % Lymphocytes % 23 % Monocytes % 9 % Eosinophils % 4 % Basophils % 0 % Neutrophils # 5.8 (1.3-7.7) k/uL Lymphocytes # 2.2 (1.0-4.8) k/uL Monocytes # 0.9 (0-1.0) k/uL Eosinophils # 0.4 (0-0.7) k/uL Basophils # 0.0 (0-0.2) k/uL PT 9.4 (9.0-12.0) sec INR 0.8 (<1.2) APTT 25.4 (22.0-30.0) sec Sodium 141 (137-145) mmol/L Potassium 4.6 (3.5-5.1) mmol/L Chloride 108 H (98-107) mmol/L Carbon Dioxide 28 (22-30) mmol/L Anion Gap 5 mmol/L BUN 9 (7-17) mg/dL Creatinine 0.58 (0.52-1.04) mg/dL Est GFR (CKD-EPI)AfAm >90 (>60 ml/min/1.73 sqM) Est GFR (CKD-EPI)NonAf >90 (>60 ml/min/1.73 sqM) Glucose 112 H (74-99) mg/dL Calcium 9.9 (8.4-10.2) mg/dL Total Bilirubin 0.4 (0.2-1.3) mg/dL AST 24 (14-36) U/L ALT 30 (9-52) U/L Alkaline Phosphatase 95 (38-126) U/L Total Protein 6.9 (6.3-8.2) g/dL Albumin 3.7 (3.5-5.0) g/dL Amylase 41 (30-110) U/L Lipase 63 (23-300) U/L Urine Color Urine Appearance (Clear) Urine pH (5.0-8.0) Ur Specific [place] (1.001-1.035) Urine Protein (Negative) Urine Glucose (UA) (Negative) Urine Ketones (Negative) Urine Blood (Negative) Urine Nitrite (Negative) Urine Bilirubin (Negative) Urine Urobilinogen (<2.0) mg/dL Ur Leukocyte Esterase (Negative) Urine RBC (0-5) /hpf Urine WBC (0-5) /hpf Ur Squamous Epith Cells (0-4) /hpf Urine Bacteria (None) /hpf Urine Mucus (None) /hpf 07/06/18 Range/Units 22:00 WBC (3.8-10.6) k/uL RBC (3.80-5.40) m/uL Hgb (11.4-16.0) gm/dL Hct (34.0-46.0) % MCV (80.0-100.0) fL MCH (25.0-35.0) pg MCHC (31.0-37.0) g/dL RDW (11.5-15.5) % Plt Count (150-450) k/uL Neutrophils % % Lymphocytes % % Monocytes % % Eosinophils % % Basophils % % Neutrophils # (1.3-7.7) k/uL Lymphocytes # (1.0-4.8) k/uL Monocytes # (0-1.0) k/uL Eosinophils # (0-0.7) k/uL Basophils # (0-0.2) k/uL PT (9.0-12.0) sec INR (<1.2) APTT (22.0-30.0) sec Sodium (137-145) mmol/L Potassium (3.5-5.1) mmol/L Chloride (98-107) mmol/L Carbon Dioxide (22-30) mmol/L Anion Gap mmol/L BUN (7-17) mg/dL Creatinine (0.52-1.04) mg/dL Est GFR (CKD-EPI)AfAm (>60 ml/min/1.73 sqM) Est GFR (CKD-EPI)NonAf (>60 ml/min/1.73 sqM) Glucose (74-99) mg/dL Calcium (8.4-10.2) mg/dL Total Bilirubin (0.2-1.3) mg/dL AST (14-36) U/L ALT (9-52) U/L Alkaline Phosphatase (38-126) U/L Total Protein (6.3-8.2) g/dL Albumin (3.5-5.0) g/dL Amylase (30-110) U/L Lipase (23-300) U/L Urine Color Yellow Urine Appearance Clear (Clear) Urine pH 8.0 (5.0-8.0) Ur Specific [place] 1.016 (1.001-1.035) Urine Protein Trace H (Negative) Urine Glucose (UA) Negative (Negative) Urine Ketones Negative (Negative) Urine Blood Trace H (Negative) Urine Nitrite Negative (Negative) Urine Bilirubin Negative (Negative) Urine Urobilinogen <2.0 (<2.0) mg/dL Ur Leukocyte Esterase Negative (Negative) Urine RBC 9 H (0-5) /hpf Urine WBC 2 (0-5) /hpf Ur Squamous Epith Cells 6 H (0-4) /hpf Urine Bacteria Rare H (None) /hpf Urine Mucus Rare H (None) /hpf - Radiology Data Negative CT of abdomen and pelvis. No evidence of renal stone or obstruction. Essentially complete clearing of atelectasis in the lung bases. Normal KUB. ( Deanna,Diann) Disposition Is patient prescribed a controlled substance at d/c from ED?: No Time of Disposition: 23:42 <Diann Huerta - Last Filed: 07/07/18 00:19> <Carmel Soto - Last Filed: 07/07/18 00:36> Clinical Impression: Hematuria, Lower abdominal pain Disposition: HOME SELF-CARE Condition: Good Instructions: Abdominal Pain (ED) Additional Instructions: Patient advised to follow-up with your primary care physician. Return to emergency department if any alarming signs or symptoms occur. Referrals: Estelle Butterfield DO [Primary Care Provider] - 1-2 days
[2018-07-06 21:12] LABS: Potassium 4.6 mmol/L (3.5-5.1)
[2018-07-06 21:13] LABS: ALT 30 U/L (9-52); AST 24 U/L (14-36); Alkaline Phosphatase 95 U/L (38-126)
--- NOTE | 2018-07-06 22:06 | XR ---
EXAMINATION TYPE: XR KUB DATE OF EXAM: 07/06/2018 COMPARISON: NONE HISTORY: Pain TECHNIQUE: 2 views are provided FINDINGS: There is no sign of intestinal obstruction or pneumoperitoneum. Fecal pattern is normal. Th ere are clips from cholecystectomy. Lung bases are clear. There are no pathologic calcifications over the kidneys. IMPRESSION: Nonacute abdomen.
[2018-07-06 22:33] LABS: Appearance,Urine Clear (Clear); Bacteria,Urine Rare /hpf; Bilirubin,Urine Negative (Negative); Blood,Urine Trace (Negative); Color,Urine Yellow; Glucose,Urine (UA) Negative (Negative); Ketones,Urine Negative (Negative); Leukocyte Esterase,Urine Negative (Negative); Mucus,Urine Rare /hpf; Nitrite,Urine Negative (Negative); Protein,Urine Trace (Negative); RBC,Urine 9 /hpf (0-5); Specific Gravity,Urine 1.016 (1.001-1.035); Squamous Epithelial Cell,Urine 6 /hpf (0-4); Urobilinogen,Urine <2.0 mg/dL (<2.0)
--- NOTE | 2018-07-06 23:36 | CT ---
EXAMINATION TYPE: CT abdomen pelvis wo con DATE OF EXAM: 07/06/2018 COMPARISON: 03/17/2018 HISTORY: Rt flank pain, r/o stones CT DLP: 475 mGycm Automated exposure control for dose reduction was used. TECHNIQUE: Helical acquisition of images was performed from the lung bases through the pelvis. FINDINGS: Multiple axial sections were obtained from the diaphragm to the floor of the pelvis with no contrast. The lung bases are clear. There is no pleural effusion. Heart size is normal. Liver spleen pancreas appear normal. There are clips from cholecystectomy. Bile ducts are not dilated . Stomach appears normal. There is no adrenal mass. Kidneys have normal size. The ureters are not dilated. I see no hydronephro sis. There is minimal bilateral perinephric stranding that could relate to previous obstruction. Ther e is left renal small calcification that is vascular. I see no renal calculus in the collecting syste m. Abdominal aorta is atheromatous. There is no retroperitoneal adenopathy. Bladder distends smoothly. T here is no inguinal hernia. There is no free fluid in the pelvis. Uterus is anteverted. There is no m esenteric edema or adenopathy. There are clips from appendectomy. Lumbar spine is intact. Bony pelvis appears intact. IMPRESSION: NEGATIVE CT SCAN ABDOMEN AND PELVIS. NO EVIDENCE OF RENAL STONE OR OBSTRUCTION. THERE IS ESSENTIALLY COMPLETE CLEARING OF ATELECTASIS AT THE LUNG BASES COMPARED TO OLD EXAM.
[2018-07-07 00:23] VITALS: BP 124/93; PULSE 90; RESP 18; TEMP 97.9
== END 2018-07-06 23:53 | disposition home or self-care (01) ==
LOC: EC 18:06
DX: R10.30 Lower abdominal pain, unspecified (principal); R31.9 Hematuria, unspecified; I10 Essential (primary) hypertension; I25.2 Old myocardial infarction; F90.9 Attention-deficit hyperactivity disorder, unspecified type; F17.200 Nicotine dependence, unspecified, uncomplicated; Z87.442 Personal history of urinary calculi; Z87.19 Personal history of other diseases of the digestive system; Z86.14 Personal history of Methicillin resistant Staphylococcus aureus infection; Z90.49 Acquired absence of other specified parts of digestive tract; Z79.899 Other long term (current) drug therapy; Z88.6 Allergy status to analgesic agent; Z91.013 Allergy to seafood; Z88.5 Allergy status to narcotic agent
CPT/HCPCS: 36415; 80053; 82150; 83690; 85025; 85610; 85730; 81001; 74018; 74176; 99285; 96374; 96375; 96376; J2405; J1170

== ENCOUNTER → 2018-07-06 | Outpatient (CLI) | payer OTHER ==
--- NOTE | 2018-07-06 23:46 | MR ---
EXAMINATION TYPE: MR lumbar spine wo con DATE OF EXAM: 07/06/2018 COMPARISON: 02/10/2017 HISTORY: Lumbar radiculopathy / Rt leg pain and numbness TECHNIQUE: Multiplanar, multisequence images of the lumbar spine were acquired. Lumbar vertebra have normal alignment. Disc spaces are fairly normal. There is a mild concentric post erior disc herniation at L4-5 without significant impingement on the spinal canal. There is developme ntally adequate canal and no spinal stenosis. The lumbar neuroforamina are fairly well-maintained. I see no focal bone destruction. Posterior elements appear intact. There is no lumbar paraspinal mass. There is no compression fracture. Visualized sacroiliac joints appear intact. IMPRESSION: Concentric posterior disc bulging and herniation at L4-5 is slightly increased compared to old exam. There is no spinal stenosis. No fracture.
== END | disposition home or self-care (01) ==
LOC: RADMRIMAIN 17:18
PROVIDERS: ATTEND Anesthesiology
DX: M51.16 Intervertebral disc disorders with radiculopathy, lumbar region (principal)
CPT/HCPCS: 72148

== ENCOUNTER 2018-07-07 13:05 | Emergency (ER) | payer OTHER ==
[2018-07-07] MEDS ORDERED: MORPHINE SULFATE 4 MG/ML SYRINGE IV STA (14:13)
[2018-07-07] MEDS ORDERED: ONDANSETRON 4 MG/2 ML VIAL IVP STA (14:13)
[2018-07-07] MEDS ORDERED: HYDROmorphone 1 MG/ML 1 ML SYRINGE IVP STA (15:13)
[2018-07-07] MEDS ORDERED: HYDROmorphone 0.5 MG/0.5 ML SYRINGE IVP STA ×2 (15:16→16:32)
[2018-07-07 15:29] LABS: Basophils % (A) 0 %; Eosinophils # (A) 0.3 k/uL (0-0.7); Eosinophils % (A) 4 %; HCT 45.2 % (34.0-46.0); HGB 14.9 gm/dL (11.4-16.0); Lymphocytes # (A) 1.4 k/uL (1.0-4.8); Lymphocytes % (A) 18 %; MCH 31.6 pg (25.0-35.0); MCHC 33.1 g/dL (31.0-37.0); MCV 95.5 fL (80.0-100.0); Mean Platelet Volume 6.9; Monocytes # (A) 0.7 k/uL (0-1.0); Monocytes % (A) 9 %; Neutrophils # (A) 5.2 k/uL (1.3-7.7); Neutrophils % (A) 67 %; Platelet Count 346 k/uL (150-450); RBC 4.73 m/uL (3.80-5.40); RDW 12.8 % (11.5-15.5); WBC 7.7 k/uL (3.8-10.6)
[2018-07-07 15:31] LABS: Appearance,Urine Clear (Clear); Bacteria,Urine Rare /hpf; Bilirubin,Urine Negative (Negative); Blood,Urine Small (Negative); Color,Urine Light Yellow; Glucose,Urine (UA) Negative (Negative); Ketones,Urine Negative (Negative); Leukocyte Esterase,Urine Negative (Negative); Mucus,Urine Rare /hpf; Nitrite,Urine Negative (Negative); PH, Urine 7.5 (5.0-8.0); Protein,Urine Negative (Negative); RBC,Urine 2 /hpf (0-5); Specific Gravity,Urine 1.007 (1.001-1.035); Squamous Epithelial Cell,Urine <1 /hpf (0-4); Urobilinogen,Urine <2.0 mg/dL (<2.0)
[2018-07-07 15:39] LABS: ALT 40 U/L (9-52); AST 23 U/L (14-36); Albumin 3.9 g/dL (3.5-5.0); Alkaline Phosphatase 104 U/L (38-126); Anion Gap 6 mmol/L; Blood Urea Nitrogen 9 mg/dL (7-17); Carbon Dioxide 27 mmol/L (22-30); Chloride 109 mmol/L (98-107); Glucose 96 mg/dL (74-99); Lipase 121 U/L (23-300); Potassium 4.8 mmol/L (3.5-5.1); Sodium 142 mmol/L (137-145); Total Bilirubin 0.2 mg/dL (0.2-1.3); Total Protein 6.9 g/dL (6.3-8.2)
--- NOTE | 2018-07-07 16:10 | CT ---
EXAMINATION TYPE: CT abdomen pelvis w con DATE OF EXAM: 07/07/2018 COMPARISON: 07/06/2018 INDICATION: Hematuria and blood in stool with nausea and diarrhea DLP: 804.4 mGycm, Automated exposure control for dose reduction was used. CONTRAST: 100 mL of Isovue 300. Study performed without Oral Contrast TECHNIQUE: Axial images were obtained from above the diaphragm to the pubic rami in the axial plane a t 5 mm thick sections. Reconstructed images are reviewed on the computer in the coronal plane. FINDINGS: Limited CT sections are obtained the lung bases. The lung bases are clear. CT ABDOMEN: Liver: Normal Spleen: Normal Pancreas: Normal Adrenal glands: The adrenal glands are normal. Gallbladder: Surgically absent Kidneys: No masses are evident. No hydronephrosis is present. No cysts are present. Delayed images were obtained through the kidneys, which remain unremarkable. Aorta: Vascular calcification is within the aorta. Inferior vena cava: Normal. CT PELVIS: Loops of bowel within the abdomen and pelvis are normal. The study is performed without oral cont rast limiting the evaluation. Appendix: Surgically absent Urinary bladder: Normal. Genitourinary structures: Uterus and adnexal regions appear within normal limits. Osseous structures: No suspicious lytic or sclerotic lesions. IMPRESSIONS: 1. No suspicious abnormality to account for hematuria, nausea or diarrhea
--- NOTE | 2018-07-07 16:13 | ED ---
General Adult HPI - General Chief complaint: Abdominal Pain Stated complaint: kidney stones Source: patient, RN notes reviewed, old records reviewed Mode of arrival: ambulatory Limitations: no limitations - History of Present Illness Initial comments: 48-year-old female patient past with history of chronic pain and neck presents to ED for abdominal pain that radiates to her back. Patient was seen here yesterday for this pain, some hematuria was discovered. Patient had CT without contrast, KUB on suspicion of stones. No stone identified. This was discharge and outpatient follow-up. Patient returns to ER today for worsening pain. Patient describes the pain as suprapubic, radiated to her back. Patient states she also had some diarrhea that appeared to be blood streaked. Patient denies gross hematuria. Patient has had some nausea and vomiting. Patient denies chest pain, shortness of breath, fever or chills. Systemic: Pt denies fatigue, myalgia, fever/chills, rash. Pt denies weakness, night sweats, weight loss. Neuro: Pt denies headache, visual disturbances, syncope or pre-syncope. HEENT: Pt denies ocular discharge or irritation, otalgia, rhinorrhea, pharyngitis or notable lymphadenopathy. Cardiopulmonary: Pt denies chest pain, SOB, heart palpitations, dyspnea on exertion. : Pt denies dysuria, burning w/ urination, frequency/urgency. Denies new onset urinary or bowel incontinence. MSK: Pt denies myalgia, loss of strength or function in extremities. Neuro: Pt denies new onset weakness, paresthesias. - Related Data Home Medications Medication Instructions Recorded Confirmed clonazePAM [KlonoPIN] 0.5 mg PO BID 02/24/17 07/07/18 Dextroamphetamine/Amphetamine 30 mg PO QAM 07/30/17 07/07/18 [Adderall] oxyCODONE HCL/ACETAMINOPHEN 1 tab PO TID PRN 03/16/18 07/07/18 [Percocet 7.5-325 mg] Gabapentin [Neurontin] 400 mg PO TID 03/17/18 07/07/18 Doxepin [SINEquan] 10 mg PO HS 07/07/18 07/07/18 Allergies Allergy/AdvReac Type Severity Reaction Status Date / Time ibuprofen Allergy Rash/Hives Verified 07/07/18 19:35 ketorolac [From Toradol] Allergy Anaphylaxis Verified 07/07/18 19:35 shellfish derived Allergy Anaphylaxis Verified 07/07/18 19:35 tramadol [From Ultram] Allergy Rash/Hives Verified 07/07/18 19:35 morphine AdvReac Nausea Verified 07/07/18 19:35 Review of Systems ROS Statement: Those systems with pertinent positive or pertinent negative responses have been documented in the HPI. ROS Other: All systems not noted in ROS Statement are negative. Past Medical History Past Medical History: COPD, GERD/Reflux, Hypertension, Myocardial Infarction ([place] ), Pneumonia, Skin Disorder Additional Past Medical History / Comment(s): chronic back pain, lumbar degenerative disc disease, insomnia, hx shingles, hiatal hernia, kidney stones. 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, migraines,; obstetrical history is significant for 1 miscarriage and 1 term that required a section Last Myocardial Infarction Date:: 08/27/2016 History of Any Multi-Drug Resistant Organisms: MRSA Date of last positivie culture/infection: 09/22/2009 MDRO Source:: neck Past Surgical History: Appendectomy, Back Surgery, Section, Cholecystectomy Additional Past Surgical History / Comment(s): Cervical spine fusion with insertion of a metal plate, EGD, colonoscopy, lumbar rhizotomy and radiofrequency ablation Past Anesthesia/Blood Transfusion Reactions: No Reported Reaction Additional Past Anesthesia/Blood Transfusion Reaction / Comment(s): CLAUSTROPHOBIA Past Psychological History: ADD/ADHD, Anxiety Smoking Status: Current every day smoker Past Alcohol Use History: None Reported Past Drug Use History: None Reported - Past Family History Father Family Medical History: Cancer Additional Family Medical History / Comment(s): Father at age 48 from lung cancer. Mother Family Medical History: Congestive Heart Failure (CHF), CVA/TIA Additional Family Medical History / Comment(s): Mother is alive at age 68. She has suffered from a CVA and has chronic back problems. Patient has 2 brothers and 4 sisters with no major medical problems. General Exam - General Exam Comments Initial Comments: Constitutional: NAD, AOX3, Pt has pleasant affect. HEENT: NC/AT, trachea midline, neck supple, no lymphadenopathy. Posterior pharynx non erythematous, without exudates. External ears appear normal, without discharge. Mucous membranes moist. Eyes PERRLA, EOM intact. There is no scleral icterus. No pallor noted. Cardiopulmonary: RRR, no murmurs, rubs or gallops, no JVD noted. Lungs CTAB in anterior and posterior pascal. No peripheral edema. Abdominal exam: Abdomen soft and non-distended. Abdomen mildly tender to palpation suprapubic, right lower quadrant region. Bowel sounds active in LLQ. No hepatosplenomegaly. No ecchymosis Neuro: CN II-XII grossly intact. No nuchal rigidity. MSK: No posterior calf tenderness bilaterally, homans sign negative bilaterally. Posterior tibialis and radial pulse +2 bilaterally. Sensation intact in upper and lower extremities. Full active ROM in upper and lower extremities, 5/5 stregnth. Limitations: no limitations Course Vital Signs 07/07/18 07/07/18 07/07/18 13:07 15:30 15:50 Temperature 98.4 F Pulse Rate 110 H 100 Respiratory 20 Rate Blood Pressure 138/83 129/91 107/77 O2 Sat by Pulse 100 95 Oximetry 07/07/18 07/07/18 07/07/18 16:00 17:02 17:53 Temperature 98.7 F Pulse Rate 83 90 87 Respiratory 16 16 Rate Blood Pressure 107/77 118/83 116/80 O2 Sat by Pulse 96 98 98 Oximetry Medical Decision Making - Medical Decision Making 1-year-old female patient past with history of chronic pain and neck presents to ED for abdominal pain that radiates to her back. Patient was seen here yesterday for this pain, some hematuria was discovered. Patient had CT without contrast, KUB on suspicion of stones. No stone identified. This was discharge and outpatient follow-up. Patient returns to ER today for worsening pain. Patient describes the pain as suprapubic, radiated to her back. Patient states she also had some diarrhea that appeared to have blood in it. Physical exam today displayed pain in her suprapubic and right lower quadrant region. Laboratory investigations were noncompressive, CBC, CMP, amylase, lipase, UA were not impressive. CT abdomen and pelvis did not display acute pathology. Fecal occult blood test was negative. Patient not driving home. Patient diagnosed with gastroenteritis. Explained patient supportive care. Self limiting process. Patient to follow primary care provider in 1-2 days. Patient to return to ED if new signs or symptoms develop including worsening pain, chest pain, shortness of breath, worsening abdominal pain, any other new symptoms. Case discussed with Dr. Blake. - Lab Data Result diagrams: 07/07/18 14:49 07/07/18 14:49 Lab Results 07/07/18 07/07/18 07/07/18 Range/Units 14:49 14:49 14:49 WBC 7.7 (3.8-10.6) k/uL RBC 4.73 (3.80-5.40) m/uL Hgb 14.9 (11.4-16.0) gm/dL Hct 45.2 (34.0-46.0) % MCV 95.5 (80.0-100.0) fL MCH 31.6 (25.0-35.0) pg MCHC 33.1 (31.0-37.0) g/dL RDW 12.8 (11.5-15.5) % Plt Count 346 (150-450) k/uL Neutrophils % 67 % Lymphocytes % 18 % Monocytes % 9 % Eosinophils % 4 % Basophils % 0 % Neutrophils # 5.2 (1.3-7.7) k/uL Lymphocytes # 1.4 (1.0-4.8) k/uL Monocytes # 0.7 (0-1.0) k/uL Eosinophils # 0.3 (0-0.7) k/uL Basophils # 0.0 (0-0.2) k/uL Sodium 142 (137-145) mmol/L Potassium 4.8 (3.5-5.1) mmol/L Chloride 109 H (98-107) mmol/L Carbon Dioxide 27 (22-30) mmol/L Anion Gap 6 mmol/L BUN 9 (7-17) mg/dL Creatinine 0.63 (0.52-1.04) mg/dL Est GFR (CKD-EPI)AfAm >90 (>60 ml/min/1.73 sqM) Est GFR (CKD-EPI)NonAf >90 (>60 ml/min/1.73 sqM) Glucose 96 (74-99) mg/dL Plasma Lactic Acid Ruben 1.3 (0.7-2.0) mmol/L Calcium 10.0 (8.4-10.2) mg/dL Total Bilirubin 0.2 (0.2-1.3) mg/dL AST 23 (14-36) U/L ALT 40 (9-52) U/L Alkaline Phosphatase 104 (38-126) U/L Total Protein 6.9 (6.3-8.2) g/dL Albumin 3.9 (3.5-5.0) g/dL Lipase 121 (23-300) U/L Urine Color Urine Appearance (Clear) Urine pH (5.0-8.0) Ur Specific [place] (1.001-1.035) Urine Protein (Negative) Urine Glucose (UA) (Negative) Urine Ketones (Negative) Urine Blood (Negative) Urine Nitrite (Negative) Urine Bilirubin (Negative) Urine Urobilinogen (<2.0) mg/dL Ur Leukocyte Esterase (Negative) Urine RBC (0-5) /hpf Ur Squamous Epith Cells (0-4) /hpf Urine Bacteria (None) /hpf Urine Mucus (None) /hpf Urine HCG, Qual (Not Detectd) Stool Occult Blood (Negative) 07/07/18 07/07/18 07/07/18 Range/Units 14:49 14:49 16:30 WBC (3.8-10.6) k/uL RBC (3.80-5.40) m/uL Hgb (11.4-16.0) gm/dL Hct (34.0-46.0) % MCV (80.0-100.0) fL MCH (25.0-35.0) pg MCHC (31.0-37.0) g/dL RDW (11.5-15.5) % Plt Count (150-450) k/uL Neutrophils % % Lymphocytes % % Monocytes % % Eosinophils % % Basophils % % Neutrophils # (1.3-7.7) k/uL Lymphocytes # (1.0-4.8) k/uL Monocytes # (0-1.0) k/uL Eosinophils # (0-0.7) k/uL Basophils # (0-0.2) k/uL Sodium (137-145) mmol/L Potassium (3.5-5.1) mmol/L Chloride (98-107) mmol/L Carbon Dioxide (22-30) mmol/L Anion Gap mmol/L BUN (7-17) mg/dL Creatinine (0.52-1.04) mg/dL Est GFR (CKD-EPI)AfAm (>60 ml/min/1.73 sqM) Est GFR (CKD-EPI)NonAf (>60 ml/min/1.73 sqM) Glucose (74-99) mg/dL Plasma Lactic Acid Ruben (0.7-2.0) mmol/L Calcium (8.4-10.2) mg/dL Total Bilirubin (0.2-1.3) mg/dL AST (14-36) U/L ALT (9-52) U/L Alkaline Phosphatase (38-126) U/L Total Protein (6.3-8.2) g/dL Albumin (3.5-5.0) g/dL Lipase (23-300) U/L Urine Color Light Yellow Urine Appearance Clear (Clear) Urine pH 7.5 (5.0-8.0) Ur Specific [place] 1.007 (1.001-1.035) Urine Protein Negative (Negative) Urine Glucose (UA) Negative (Negative) Urine Ketones Negative (Negative) Urine Blood Small H (Negative) Urine Nitrite Negative (Negative) Urine Bilirubin Negative (Negative) Urine Urobilinogen <2.0 (<2.0) mg/dL Ur Leukocyte Esterase Negative (Negative) Urine RBC 2 (0-5) /hpf Ur Squamous Epith Cells <1 (0-4) /hpf Urine Bacteria Rare H (None) /hpf Urine Mucus Rare H (None) /hpf Urine HCG, Qual Not Detected (Not Detectd) Stool Occult Blood Negative (Negative) Disposition Clinical Impression: Viral gastroenteritis, Gastroenteritis Disposition: HOME SELF-CARE Condition: Good Instructions: Abdominal Pain (ED) Additional Instructions: Patient to adhere to previously discussed treatment plan and will take medication(s) as directed. Patient to follow up with PCP in 1-2 days. Patient to return to ED if symptoms do not improve. Is patient prescribed a controlled substance at d/c from ED?: No Referrals: Estelle Butterfield DO [Primary Care Provider] - 1-2 days Time of Disposition: 17:18
[2018-07-07 17:03] VITALS: RESP 16
[2018-07-07 17:54] VITALS: BP 116/80; PULSE 87; TEMP 98.7
== END 2018-07-07 17:53 | disposition home or self-care (01) ==
LOC: EC 13:05
DX: A08.4 Viral intestinal infection, unspecified (principal); F41.9 Anxiety disorder, unspecified; F90.9 Attention-deficit hyperactivity disorder, unspecified type; I25.2 Old myocardial infarction; F17.200 Nicotine dependence, unspecified, uncomplicated; Z79.899 Other long term (current) drug therapy; Z88.6 Allergy status to analgesic agent; Z88.5 Allergy status to narcotic agent; Z91.013 Allergy to seafood
CPT/HCPCS: 36415; 80053; 83605; 83690; 85025; 82272; 81001; 81025; 74177; 99284; 96374; 96375; 96376; J2405; J1170; Q9967

== ENCOUNTER 2018-07-07 19:15 | Inpatient (IN) | payer OTHER ==
[2018-07-07] MEDS ORDERED: SODIUM CHLORIDE 0.9% 1,000 ML IV STA (19:59)
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
[2018-07-07] MEDS: ORPHENADRINE 30 MG/ML 2 ML VIAL IVP STA ×2 (20:15→20:20)
[2018-07-07] MEDS ORDERED: HYDROmorphone 1 MG/ML 1 ML SYRINGE IVP STA (20:19)
[2018-07-07 20:31] LABS: Basophils % (A) 0 %; Eosinophils # (A) 0.4 k/uL (0-0.7); Eosinophils % (A) 5 %; HCT 44.6 % (34.0-46.0); HGB 14.5 gm/dL (11.4-16.0); Lymphocytes # (A) 2.3 k/uL (1.0-4.8); Lymphocytes % (A) 24 %; MCH 30.9 pg (25.0-35.0); MCHC 32.4 g/dL (31.0-37.0); MCV 95.3 fL (80.0-100.0); Mean Platelet Volume 6.7; Monocytes # (A) 0.9 k/uL (0-1.0); Monocytes % (A) 10 %; Neutrophils # (A) 5.7 k/uL (1.3-7.7); Neutrophils % (A) 60 %; Platelet Count 376 k/uL (150-450); RBC 4.68 m/uL (3.80-5.40); WBC 9.5 k/uL (3.8-10.6)
[2018-07-07 20:35] LABS: INR 0.9 (<1.2); Partial Thromboplastin Time 25.4 sec (22.0-30.0); Prothrombin Time 9.4 sec (9.0-12.0)
[2018-07-07 20:47] LABS: ALT 32 U/L (9-52); AST 25 U/L (14-36); Albumin 3.9 g/dL (3.5-5.0); Alkaline Phosphatase 105 U/L (38-126); Anion Gap 9 mmol/L; Blood Urea Nitrogen 7 mg/dL (7-17); Calcium 9.9 mg/dL (8.4-10.2); Carbon Dioxide 24 mmol/L (22-30); Chloride 110 mmol/L (98-107); Glucose 114 mg/dL (74-99); Potassium 4.5 mmol/L (3.5-5.1); Sodium 143 mmol/L (137-145); Total Bilirubin 0.2 mg/dL (0.2-1.3); Total Protein 7.1 g/dL (6.3-8.2)
[2018-07-07 20:50] LABS: Creatine Kinase 49 U/L (30-135)
[2018-07-07 21:02] LABS: Creatine Kinase MB 1.6 ng/mL (0.0-2.4); Troponin I <0.012 ng/mL (0.000-0.034)
--- NOTE | 2018-07-07 21:15 | CT ---
EXAMINATION TYPE: CT brain kory oneal con DATE OF EXAM: 07/07/2018 COMPARISON: August 26, 2017 HISTORY: Headache. Neck pain. CT DLP: 1403.3 mGycm Automated exposure control for dose reduction was used. TECHNIQUE: CT scan of the head and cervical spine are performed without contrast. FINDINGS: Ventricles have normal size. There is no mass effect nor midline shift. There is no sign of intracranial hemorrhage. Calvarium is intact. The cervical vertebra have normal alignment. There is old anterior fusion surgery at C5-6. Facet join ts are intact. Skull base is intact. There is no evidence of a fracture. IMPRESSION: Negative CT scan of the brain. No change. Previous cervical spine surgery. No fracture seen. No acute abnormality.
[2018-07-08] MEDS ORDERED: NALOXONE 0.4 MG/ML 1 ML VIAL IV PRN (01:27)
[2018-07-08] MEDS ORDERED: DOCUSATE 100 MG CAP PO PRN (01:27)
[2018-07-08 01:41] VITALS: BMI 29.8
[2018-07-08] MEDS: HYDROmorphone 1 MG/ML 1 ML SYRINGE IVP PRN ×6 (01:43→22:30)
[2018-07-08] MEDS: ONDANSETRON 4 MG/2 ML VIAL IVP PRN ×2 (02:03→08:27)
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
[2018-07-08] MEDS: oxyCODONE-APAP 7.5-325MG 1 EACH TAB PO PRN ×2 (03:51→12:48)
[2018-07-08] MEDS: HEPARIN SODIUM,PORCINE 5,000 UNIT/ML 1 ML VIAL SQ SCH ×2 (08:25→17:20)
[2018-07-08] MEDS: clonazePAM 0.5 MG TAB PO SCH ×2 (08:26→19:54)
[2018-07-08] MEDS: GABAPENTIN 400 MG CAP PO SCH ×3 (08:26→19:54)
[2018-07-08] MEDS: NICOTINE 14MG/24HR PATCH TRANSDERM SCH (08:26)
--- NOTE | 2018-07-08 10:20 | XR ---
EXAM: XR Chest, 1 View CLINICAL HISTORY: SOB TECHNIQUE: Frontal view of the chest. COMPARISON: 03/19/18 FINDINGS: Lungs: Increased lung markings in the lung bases suggests of some mild pulmonary venous congestion Pleural space: Unremarkable. No pneumothorax. Heart: Unremarkable. No cardiomegaly. Mediastinum: Unremarkable. Bones/joints: Unremarkable. IMPRESSION: Mild pulmonary venous congestion suggested lower lobes
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
[2018-07-08] MEDS ORDERED: DOXEPIN 10 MG CAP PO SCH (21:00)
[2018-07-09] MEDS: HYDROmorphone 1 MG/ML 1 ML SYRINGE IVP PRN ×4 (01:00→09:55)
[2018-07-09] MEDS: ONDANSETRON 4 MG/2 ML VIAL IVP PRN (01:06)
[2018-07-09] MEDS: HEPARIN SODIUM,PORCINE 5,000 UNIT/ML 1 ML VIAL SQ SCH ×2 (03:36→07:56)
[2018-07-09 07:12] LABS: Basophils % (A) 1 %; Eosinophils # (A) 0.3 k/uL (0-0.7); Eosinophils % (A) 4 %; HCT 42.1 % (34.0-46.0); HGB 13.7 gm/dL (11.4-16.0); Lymphocytes # (A) 2.4 k/uL (1.0-4.8); Lymphocytes % (A) 31 %; MCHC 32.4 g/dL (31.0-37.0); MCV 95.7 fL (80.0-100.0); Mean Platelet Volume 6.7; Monocytes # (A) 0.8 k/uL (0-1.0); Monocytes % (A) 11 %; Neutrophils % (A) 52 %; Platelet Count 334 k/uL (150-450); WBC 7.8 k/uL (3.8-10.6)
[2018-07-09 07:21] LABS: ALT 36 U/L (9-52); AST 20 U/L (14-36); Albumin 3.6 g/dL (3.5-5.0); Alkaline Phosphatase 109 U/L (38-126); Anion Gap 7 mmol/L; Blood Urea Nitrogen 11 mg/dL (7-17); Calcium 9.8 mg/dL (8.4-10.2); Carbon Dioxide 28 mmol/L (22-30); Chloride 107 mmol/L (98-107); Glucose 94 mg/dL (74-99); Potassium 4.6 mmol/L (3.5-5.1); Sodium 142 mmol/L (137-145); Total Bilirubin 0.2 mg/dL (0.2-1.3); Total Protein 6.5 g/dL (6.3-8.2)
[2018-07-09] MEDS: GABAPENTIN 400 MG CAP PO SCH (07:56)
[2018-07-09] MEDS: clonazePAM 0.5 MG TAB PO SCH (07:56)
[2018-07-09] MEDS: NICOTINE 14MG/24HR PATCH TRANSDERM SCH (07:56)
[2018-07-09] MEDS: oxyCODONE-APAP 7.5-325MG 1 EACH TAB PO PRN (08:03)
[2018-07-09 08:10] VITALS: RESP 16; TEMP 98.4
[2018-07-09 08:11] VITALS: BP 109/77; PULSE 78
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
== END 2018-07-09 12:30 | disposition home or self-care (01) | DRG 312 ==
LOC: EC 19:15 → 1SOBS 23:34 → OBSVTOIN 07-09 09:18
PROVIDERS: ADMIT Internal Medicine; ATTEND Internal Medicine
DX: R55 Syncope and collapse (principal); F17.200 Nicotine dependence, unspecified, uncomplicated; F40.240 Claustrophobia; F90.9 Attention-deficit hyperactivity disorder, unspecified type; F41.9 Anxiety disorder, unspecified; I10 Essential (primary) hypertension; J44.9 Chronic obstructive pulmonary disease, unspecified; I25.10 Atherosclerotic heart disease of native coronary artery without angina pectoris; M54.2 Cervicalgia; G89.29 Other chronic pain; R51 Headache; K21.9 Gastro-esophageal reflux disease without esophagitis; M51.36 Other intervertebral disc degeneration, lumbar region; I25.2 Old myocardial infarction; Z76.5 Malingerer [conscious simulation]; Z87.442 Personal history of urinary calculi; Y92.410 Unspecified street and highway as the place of occurrence of the external cause; Z98.1 Arthrodesis status; Z90.49 Acquired absence of other specified parts of digestive tract; V47.5XXA Car driver injured in collision with fixed or stationary object in traffic accident, initial encounter; Z82.49 Family history of ischemic heart disease and other diseases of the circulatory system; Z82.3 Family history of stroke; Z80.1 Family history of malignant neoplasm of trachea, bronchus and lung
CPT/HCPCS: 36415; 70450; 71045; 72125; 80053; 82550; 82553; 84484; 85025; 85610; 85730; 93005; 96361; 96374; 99285

== ENCOUNTER 2018-07-10 04:33 | Observation (INO) | payer OTHER ==
[2018-07-10] MEDS ORDERED: NALOXONE 0.4 MG/ML 1 ML VIAL IV PRN ×2 (05:51→12:38)
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
--- NOTE | 2018-07-10 08:10 | XR ---
EXAMINATION TYPE: XR knee limited RT , 2 VIEWS DATE OF EXAM ORDERED: 07/10/2018 HISTORY: Pain. COMPARISON: None. FINDINGS: No fracture or dislocation is seen. No joint effusion is evident. The joint spaces are wel l maintained. There is some mild vascular calcification. IMPRESSION: NO ACUTE OSSEOUS LESION.
[2018-07-10] MEDS: HEPARIN SODIUM,PORCINE 5,000 UNIT/ML 1 ML VIAL SQ SCH ×2 (09:26→16:55)
[2018-07-10] MEDS: GABAPENTIN 400 MG CAP PO SCH ×3 (09:26→20:57)
[2018-07-10] MEDS: oxyCODONE-APAP 7.5-325MG 1 EACH TAB PO PRN ×3 (09:26→22:09)
[2018-07-10 09:44] VITALS: BMI 26.8
[2018-07-10] MEDS ORDERED: ACETAMINOPHEN TAB 325 MG TAB PO PRN (12:38)
[2018-07-10] MEDS ORDERED: IPRATROPIUM-ALBUTEROL 3 ML NEB INHALATION PRN (12:40)
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
[2018-07-10] MEDS: HYDROmorphone 1 MG/ML 1 ML SYRINGE IV PRN ×2 (13:19→19:15)
--- NOTE | 2018-07-10 17:38 | XR ---
EXAMINATION TYPE: XR elbow complete RT DATE OF EXAM: 07/10/2018 CLINICAL HISTORY: Fall today with pain and swelling TECHNIQUE: Frontal, lateral and oblique images of the right elbow are obtained. COMPARISON: None FINDINGS: There is no acute fracture/dislocation evident in the right elbow. No abnormal fat pad si gns are seen. Spurring from the medial and lateral epicondyles of distal humerus is noted. The overly ing soft tissue appears unremarkable. IMPRESSION: There is no acute fracture or dislocation in the right elbow.
--- NOTE | 2018-07-10 17:40 | CT ---
EXAMINATION TYPE: CT brain wo con DATE OF EXAM: 07/10/2018 HISTORY: Fall. Injury with headache. CT DLP: 953.6 mGycm. Automated Exposure Control for Dose Reduction was Utilized. TECHNIQUE: CT scan of the head is performed without contrast. COMPARISON: CT brain from 3 days ago FINDINGS: There is no acute intracranial hemorrhage or midline shift identified. There is diffuse v entricular and sulcal prominence consistent with diffuse age-related cerebral atrophy. There is low- attenuation in the periventricular white matter consistent with chronic small vessel ischemic change. The globes are intact and the visualized sinuses are clear. The calvarium is intact. IMPRESSION: No acute intracranial hemorrhage or midline shift. There is minimal diffuse age-related cerebral atrophy and chronic small vessel ischemic change redemonstrated. No significant change fro m prior.
[2018-07-10] MEDS: clonazePAM 0.5 MG TAB PO SCH (20:57)
[2018-07-11] MEDS: HYDROmorphone 1 MG/ML 1 ML SYRINGE IV PRN ×2 (01:12→07:27)
[2018-07-11] MEDS: HEPARIN SODIUM,PORCINE 5,000 UNIT/ML 1 ML VIAL SQ SCH ×3 (01:17→15:02)
[2018-07-11] MEDS: oxyCODONE-APAP 7.5-325MG 1 EACH TAB PO PRN ×4 (02:18→15:00)
[2018-07-11] MEDS: clonazePAM 0.5 MG TAB PO SCH ×2 (07:27→22:15)
[2018-07-11] MEDS: GABAPENTIN 400 MG CAP PO SCH ×3 (07:27→22:12)
--- NOTE | 2018-07-11 12:20 | P.PN ---
Subjective Progress Note Date: 07/11/18 Principal diagnosis: Pain management Patient was seen and examined. No acute events overnight. Patient states that she was able to call the pain clinic this morning, requested Dr. 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 Patient states that she would be able to manage with Percocet 10 every 6 hours rather than the 7.5 that she is currently prescribed. She has no other complaints this morning. She denies any chest pain, shortness of breath or palpitations. Objective - Vital Signs Vital signs: Vital Signs Temp 98.1 F 07/11/18 05:07 Pulse 88 07/11/18 05:07 Resp 16 07/11/18 05:07 BP 103/64 07/11/18 05:07 Pulse Ox 95 07/11/18 05:07 Intake & Output 07/10/18 07/11/18 07/11/18 18:59 06:59 18:59 Intake Total 300 750 Balance 300 750 Weight 64.41 kg 64.41 kg Intake: Oral 300 750 Other: Voiding Method Toilet Toilet # Voids 1 - Exam General: [non toxic], [no distress], [appears at stated age], [hysterically crying] Derm: [warm], [dry] Head: [atraumatic], [normocephalic], [symmetric] Eyes: [EOMI], [no lid lag], [anicteric sclera] Mouth: [no lip lesion], [mucus membranes moist] Cardiovascular: [S1S2 reg], [no murmur], [positive DP pulse bilateral] Lungs: [CTA bilateral], [no rhonchi, no rales] , [no accessory muscle use] Abdominal: [soft], [ nontender to palpation], [no guarding], [no appreciable organomegaly] Ext: [no gross muscle atrophy], [no edema], [tenderness to palpation over the lumbar and cervical spine] Neuro: [no focal neuro deficits] Psych: [Alert], [oriented], [appropriate affect] Assessment and Plan Assessment: Assessment 1. Cervical spine pain 2. Sciatica 3. COPD 4. Hypertension Her pain has improved since yesterday. Patient does not display any signs of cord compression. Patient has a lumbar spine MRI from June of 2018 that shows posterior disc bulge and herniation at L4-L5 with no signs of stenosis or fracture. Cervical spine CT from June of 2018 shows C5-C6 old anterior fusion with normal alignment of the cervical vertebrae. There is no need for additional imaging. We will treat her pain with Tylenol 650 mg PO Q6H, Oxycodone 7.5 mg PO Q4H and Dilaudid 0.5 mg IV Q6H as needed for pain. Continue home medication Gabapentin for sciatica. I will resume DuoNeb nebulization treatments as needed for shortness of breath or wheezing. She is on fall precautions, neurological checks every 4 hours. We will need physical therapy evaluation to ensure a safe discharge. I will also consult Dr. Teagan Ruiz for further management of her pain. She does display signs of drug- seeking behavior. Likely discharge today or tomorrow depending on PT assessment and adequate management of her pain.
[2018-07-11] MEDS: HYDROmorphone 0.5 MG/0.5 ML SYRINGE IVP PRN ×2 (13:15→19:21)
[2018-07-11] MEDS: oxyCODONE-APAP 10-325MG 1 EACH TAB PO PRN ×2 (17:44→22:11)
[2018-07-12] MEDS: HYDROmorphone 0.5 MG/0.5 ML SYRINGE IVP PRN ×2 (01:20→07:37)
[2018-07-12] MEDS: HEPARIN SODIUM,PORCINE 5,000 UNIT/ML 1 ML VIAL SQ SCH ×2 (01:24→07:37)
[2018-07-12] MEDS: oxyCODONE-APAP 10-325MG 1 EACH TAB PO PRN ×2 (04:33→10:34)
[2018-07-12] MEDS: clonazePAM 0.5 MG TAB PO SCH (07:37)
[2018-07-12] MEDS: GABAPENTIN 400 MG CAP PO SCH (07:37)
[2018-07-12 12:25] VITALS: BP 107/77; PULSE 90; RESP 18; TEMP 98.2
[2018-07-12] MEDS ORDERED: MELOXICAM 7.5 MG TAB PO SCH (12:30)
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
== END 2018-07-12 13:10 | disposition home or self-care (01) ==
LOC: EC 04:33 → 3NMEDONC 06:06
PROVIDERS: ADMIT Internal Medicine; ATTEND Internal Medicine
DX: M54.2 Cervicalgia (principal); G89.29 Other chronic pain; J44.9 Chronic obstructive pulmonary disease, unspecified; I10 Essential (primary) hypertension; Z98.1 Arthrodesis status; Z76.5 Malingerer [conscious simulation]; K21.9 Gastro-esophageal reflux disease without esophagitis; I25.2 Old myocardial infarction; Z87.01 Personal history of pneumonia (recurrent); M51.16 Intervertebral disc disorders with radiculopathy, lumbar region; Z87.442 Personal history of urinary calculi; Z86.19 Personal history of other infectious and parasitic diseases; Z86.14 Personal history of Methicillin resistant Staphylococcus aureus infection; Z90.49 Acquired absence of other specified parts of digestive tract; F41.9 Anxiety disorder, unspecified; F90.9 Attention-deficit hyperactivity disorder, unspecified type; F17.200 Nicotine dependence, unspecified, uncomplicated; W18.30XA Fall on same level, unspecified, initial encounter; Y92.009 Unspecified place in unspecified non-institutional (private) residence as the place of occurrence of the external cause; Z80.1 Family history of malignant neoplasm of trachea, bronchus and lung; Z82.3 Family history of stroke; Z82.49 Family history of ischemic heart disease and other diseases of the circulatory system; Z79.899 Other long term (current) drug therapy; Z88.8 Allergy status to other drugs, medicaments and biological substances; Z88.5 Allergy status to narcotic agent; Z91.013 Allergy to seafood
CPT/HCPCS: 70450; 96372; 96374; 96376; 99284

== ENCOUNTER 2018-07-28 11:36 | Emergency (ER) | payer OTHER ==
--- NOTE | 2018-07-28 12:39 | XR ---
EXAMINATION TYPE: XR chest 2V DATE OF EXAM: 07/28/2018 COMPARISON: 07/07/2018 HISTORY: Cough, congestion, and fever for 5 days. Recent antibiotic treatment for bronchitis. TECHNIQUE: Frontal and lateral views of the chest are obtained. FINDINGS: Copious soft tissues partially obscure the left lung base as seen on the prior of 07/07/[address] at this time demonstrated no left basilar opacity. There is no focal air space opacity, pleura l effusion, or pneumothorax seen. The cardiac silhouette size is within normal limits. The osseous structures are intact. Cervical fusion device is partially visualized. Surgical clips are noted in t he right upper quadrant. IMPRESSION: No acute cardiopulmonary process.
[2018-07-28] MEDS ORDERED: methylPREDNISolone SOD SUCCI 125 MG/2 ML VIAL IM ONE (12:47)
[2018-07-28] MEDS ORDERED: IPRATROPIUM-ALBUTEROL 3 ML NEB INHALATION STA (12:47)
--- NOTE | 2018-07-28 12:51 | ED ---
URI HPI - General Chief Complaint: Upper Respiratory Infection Stated Complaint: COUGH Time Seen by Provider: 07/28/18 12:07 Source: patient, RN notes reviewed Mode of arrival: ambulatory Limitations: no limitations - History of Present Illness Initial Comments: 48-year-old female presents emergency Department chief complaint cough congestion. Patient states that she is a daily smoker, history of COPD. Patient states that she's been on antibiotics with no improvement. Patient states that she has not done any updrafts recently. Patient states she only had a couple days of steroids. Patient reports no fever no chills no chest pain. Patient denies any nausea vomiting diarrhea constipation. - Related Data Home Medications Medication Instructions Recorded Confirmed clonazePAM [KlonoPIN] 0.5 mg PO BID 02/24/17 07/10/18 Dextroamphetamine/Amphetamine 30 mg PO QAM 07/30/17 07/10/18 [Adderall] Gabapentin [Neurontin] 400 mg PO TID 03/17/18 07/10/18 Doxepin [SINEquan] 10 mg PO HS 07/07/18 07/10/18 Previous Rx's Medication Instructions Recorded oxyCODONE-APAP 10-325MG [Percocet 1 tab PO Q4HR PRN 3 Days #18 tab 07/09/18 10-325 mg] Ipratropium-Albuterol Nebulize 3 ml INHALATION QID #1 box 07/28/18 [Duoneb 0.5 mg-3 mg/3 ml Soln] guaiFENesin-DM 100-10MG/5ML 10 ml PO Q6HR #1 bottle 07/28/18 [Robitussin DM] predniSONE 50 mg PO DAILY #5 tab 07/28/18 Allergies Allergy/AdvReac Type Severity Reaction Status Date / Time ibuprofen Allergy Rash/Hives Verified 07/28/18 11:49 ketorolac [From Toradol] Allergy Anaphylaxis Verified 07/28/18 11:49 shellfish derived Allergy Anaphylaxis Verified 07/28/18 11:49 tramadol [From Ultram] Allergy Rash/Hives Verified 07/28/18 11:49 morphine AdvReac Nausea Verified 07/28/18 11:49 Review of Systems ROS Statement: Those systems with pertinent positive or pertinent negative responses have been documented in the HPI. ROS Other: All systems not noted in ROS Statement are negative. Past Medical History Past Medical History: COPD, GERD/Reflux, Hypertension, Myocardial Infarction ([place] ), Pneumonia, Skin Disorder Additional Past Medical History / Comment(s): chronic back pain, lumbar degenerative disc disease, insomnia, hx shingles, hiatal hernia, kidney stones. 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, migraines,; obstetrical history is significant for 1 miscarriage and 1 term that required a section Last Myocardial Infarction Date:: 08/27/2016 History of Any Multi-Drug Resistant Organisms: MRSA Date of last positivie culture/infection: 09/22/09 MDRO Source:: neck Past Surgical History: Appendectomy, Back Surgery, Section, Cholecystectomy Additional Past Surgical History / Comment(s): Cervical spine fusion with insertion of a metal plate, EGD, colonoscopy, lumbar rhizotomy and radiofrequency ablation Past Anesthesia/Blood Transfusion Reactions: No Reported Reaction Additional Past Anesthesia/Blood Transfusion Reaction / Comment(s): CLAUSTROPHOBIA Past Psychological History: ADD/ADHD, Anxiety Smoking Status: Current every day smoker Past Alcohol Use History: None Reported Past Drug Use History: None Reported - Past Family History Father Family Medical History: Cancer Additional Family Medical History / Comment(s): Father at age 48 from lung cancer. Mother Family Medical History: Congestive Heart Failure (CHF), CVA/TIA Additional Family Medical History / Comment(s): Mother is alive at age 68. She has suffered from a CVA and has chronic back problems. Patient has 2 brothers and 4 sisters with no major medical problems. General Exam Limitations: no limitations General appearance: alert, in no apparent distress Head exam: Present: atraumatic, normocephalic, normal inspection Eye exam: Present: normal appearance, PERRL, EOMI. Absent: scleral icterus, conjunctival injection, periorbital swelling ENT exam: Present: normal exam, normal oropharynx, mucous membranes moist, TM's normal bilaterally, normal external ear exam Neck exam: Present: normal inspection, full ROM. Absent: tenderness, meningismus, lymphadenopathy Respiratory exam: Present: wheezes. Absent: normal lung sounds bilaterally, respiratory distress, rales, rhonchi, stridor Cardiovascular Exam: Present: regular rate, normal rhythm, normal heart sounds. Absent: systolic murmur, diastolic murmur, rubs, gallop, clicks Skin exam: Present: warm, dry, intact, normal color. Absent: rash Course Vital Signs 07/28/18 11:47 Temperature 97.9 F Pulse Rate 113 H Respiratory 20 Rate Blood Pressure 118/79 O2 Sat by Pulse 98 Oximetry Medical Decision Making - Medical Decision Making 48-year-old female presented for cough congestion. Chest x-ray obtained no acute abnormality. Patient has mild COPD exacerbation. Patient was started on oral steroids, DuoNeb treatment. Patient will follow-up PCP and return parameters were discussed. Smoking sensation greater than 3 minutes were counseled Disposition Clinical Impression: COPD exacerbation Disposition: HOME SELF-CARE Condition: Stable Instructions: COPD (Chronic Obstructive Pulmonary Disease) (ED) Additional Instructions: Please return to the Emergency Department if symptoms worsen or any other concerns. Prescriptions: guaiFENesin-DM 100-10MG/5ML [Robitussin DM] 10 ml PO Q6HR #1 bottle Ipratropium-Albuterol Nebulize [Duoneb 0.5 mg-3 mg/3 ml Soln] 3 ml INHALATION QID #1 box predniSONE 50 mg PO DAILY #5 tab Is patient prescribed a controlled substance at d/c from ED?: No Referrals: Estelle Butterfield DO [Primary Care Provider] - 1-2 days Time of Disposition: 12:50
[2018-07-28 13:08] VITALS: PULSE 82
[2018-07-28 13:14] VITALS: BP 120/80; RESP 18; TEMP 97.8
== END 2018-07-28 13:14 | disposition home or self-care (01) ==
LOC: EC 11:36
DX: J44.1 Chronic obstructive pulmonary disease with (acute) exacerbation (principal); I25.2 Old myocardial infarction; F90.9 Attention-deficit hyperactivity disorder, unspecified type; F41.9 Anxiety disorder, unspecified; F17.200 Nicotine dependence, unspecified, uncomplicated; Z86.14 Personal history of Methicillin resistant Staphylococcus aureus infection; Z79.899 Other long term (current) drug therapy; Z88.6 Allergy status to analgesic agent; Z91.013 Allergy to seafood; Z88.5 Allergy status to narcotic agent
CPT/HCPCS: 71046; 99283; 96372; J2930

== ENCOUNTER 2018-07-29 09:06 | Emergency (ER) | payer OTHER ==
[2018-07-29 09:09] VITALS: BP 125/86; PULSE 115; RESP 20; TEMP 98.5
[2018-07-29] MEDS ORDERED: MAG HYDROX/AL HYDROX/SIMETH 30 ML, HYOSCYAMINE ELIXIR 10 ML, CIMETIDINE HCL 300 MG, LID... PO STA ×4 (09:12)
[2018-07-29] MEDS ORDERED: diphenhydrAMINE 50 MG/ML 1 ML VIAL IM STA (09:15)
[2018-07-29] MEDS ORDERED: METOCLOPRAMIDE 5 MG/ML 2 ML VIAL IM STA (09:15)
--- NOTE | 2018-07-29 09:21 | ED ---
Abdominal Pain HPI - General Chief Complaint: Abdominal Pain Stated Complaint: Abd Pain Time Seen by Provider: 07/29/18 09:12 Source: patient, RN notes reviewed Mode of arrival: ambulatory Limitations: no limitations - History of Present Illness Initial Comments: Is a 48-year-old female presents emergency Department chief complaint abdominal pain. Patient states that this pain started 30 minutes after eating peanut butter and toast. Patient states that she feels slightly nauseated no vomiting no diarrhea no constipation. Patient states the pain is in epigastric region. Patient states that she's had a prior cholecystectomy. Denies any fever or chills. Denies chest pain or shortness of breath. - Related Data Home Medications Medication Instructions Recorded Confirmed Dextroamphetamine/Amphetamine 30 mg PO QAM 07/30/17 07/29/18 [Adderall] Gabapentin [Neurontin] 400 mg PO TID 03/17/18 07/29/18 Atenolol [Tenormin] 50 mg PO DAILY 07/29/18 07/29/18 Ipratropium-Albuterol Nebulize 3 ml INHALATION RT-QID 07/29/18 07/29/18 [Duoneb 0.5 mg-3 mg/3 ml Soln] clonazePAM [KlonoPIN] 1 mg PO BID 07/29/18 07/29/18 Previous Rx's Medication Instructions Recorded oxyCODONE-APAP 10-325MG [Percocet 1 tab PO Q4HR PRN 3 Days #18 tab 07/09/18 10-325 mg] guaiFENesin-DM 100-10MG/5ML 10 ml PO Q6HR #1 bottle 07/28/18 [Robitussin DM] predniSONE 50 mg PO DAILY #5 tab 07/28/18 Allergies Allergy/AdvReac Type Severity Reaction Status Date / Time ibuprofen Allergy Rash/Hives Verified 07/29/18 09:32 ketorolac [From Toradol] Allergy Anaphylaxis Verified 07/29/18 09:32 shellfish derived Allergy Anaphylaxis Verified 07/29/18 09:32 tramadol [From Ultram] Allergy Rash/Hives Verified 07/29/18 09:32 morphine AdvReac Nausea Verified 07/29/18 09:32 Review of Systems ROS Statement: Those systems with pertinent positive or pertinent negative responses have been documented in the HPI. ROS Other: All systems not noted in ROS Statement are negative. Past Medical History Past Medical History: COPD, GERD/Reflux, Hypertension, Myocardial Infarction (ID ), Pneumonia, Skin Disorder Additional Past Medical History / Comment(s): chronic back pain, lumbar degenerative disc disease, insomnia, hx shingles, hiatal hernia, kidney stones. 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, migraines,; obstetrical history is significant for 1 miscarriage and 1 term that required a section Last Myocardial Infarction Date:: 08/27/2016 History of Any Multi-Drug Resistant Organisms: MRSA Date of last positivie culture/infection: 09/22/09 MDRO Source:: neck Past Surgical History: Appendectomy, Back Surgery, Section, Cholecystectomy Additional Past Surgical History / Comment(s): Cervical spine fusion with insertion of a metal plate, EGD, colonoscopy, lumbar rhizotomy and radiofrequency ablation Past Anesthesia/Blood Transfusion Reactions: No Reported Reaction Additional Past Anesthesia/Blood Transfusion Reaction / Comment(s): CLAUSTROPHOBIA Past Psychological History: ADD/ADHD, Anxiety Smoking Status: Current every day smoker Past Alcohol Use History: None Reported Past Drug Use History: None Reported - Past Family History Father Family Medical History: Cancer Additional Family Medical History / Comment(s): Father at age 48 from lung cancer. Mother Family Medical History: Congestive Heart Failure (CHF), CVA/TIA Additional Family Medical History / Comment(s): Mother is alive at age 68. She has suffered from a CVA and has chronic back problems. Patient has 2 brothers and 4 sisters with no major medical problems. General Exam Limitations: no limitations General appearance: alert, in no apparent distress Head exam: Present: atraumatic, normocephalic, normal inspection Eye exam: Present: normal appearance, PERRL, EOMI. Absent: scleral icterus, conjunctival injection, periorbital swelling Respiratory exam: Present: normal lung sounds bilaterally. Absent: respiratory distress, wheezes, rales, rhonchi, stridor Cardiovascular Exam: Present: regular rate, normal rhythm, normal heart sounds. Absent: systolic murmur, diastolic murmur, rubs, gallop, clicks GI/Abdominal exam: Present: soft, tenderness (Mild epigastric), normal bowel sounds. Absent: distended, guarding, rebound, rigid Back exam: Absent: CVA tenderness (R), CVA tenderness (L) Skin exam: Present: warm, dry, intact, normal color. Absent: rash Course Vital Signs 07/29/18 09:07 Temperature 98.5 F Pulse Rate 115 H Respiratory 20 Rate Blood Pressure 125/86 O2 Sat by Pulse 99 Oximetry Medical Decision Making - Medical Decision Making 48-year-old female presented for abdominal pain. Patient was given initial medications and states that symptoms are worsening and she demands pain meds. Patient was offered IV for lab work and evaluation patient refuses patient not cooperative, belligerent and left. Disposition Clinical Impression: Chronic abdominal pain Disposition: Left Against Medical Advice Referrals: Estelle Butterfield DO [Primary Care Provider] - 1-2 days
== END 2018-07-29 09:45 | disposition left against medical advice (07) ==
LOC: EC 09:06
DX: G89.29 Other chronic pain (principal); R10.13 Epigastric pain; R11.0 Nausea; I10 Essential (primary) hypertension; I25.2 Old myocardial infarction; F41.9 Anxiety disorder, unspecified; F90.9 Attention-deficit hyperactivity disorder, unspecified type; F17.200 Nicotine dependence, unspecified, uncomplicated; Z88.5 Allergy status to narcotic agent; Z88.6 Allergy status to analgesic agent; Z91.013 Allergy to seafood; Z79.899 Other long term (current) drug therapy; Z86.14 Personal history of Methicillin resistant Staphylococcus aureus infection; Z86.69 Personal history of other diseases of the nervous system and sense organs; Z90.49 Acquired absence of other specified parts of digestive tract; Z98.1 Arthrodesis status
CPT/HCPCS: 99283; 96372 ×2; J1200; J2765

== ENCOUNTER → 2018-08-09 | Outpatient (CLI) | payer OTHER ==
[2018-08-09 12:17] VITALS: BP 119/81; PULSE 120; RESP 16
--- NOTE | 2018-08-09 21:11 | P.PN ---
Subjective Progress Note Date: 08/09/18 This is follow-up visit for this patient with a history of severe and chronic low back pain secondary to lumbar degenerative disc disease, lumbar spondylosis with facet arthropathy, We have done an interventional pain procedure radiofrequency ablation of the medial branch lumbar area and lumbar epidural steroid injections, currently she is complaining of severe low back pain with radiation to the right lower extremity, the intensity of the pain interfering with her quality of life, The patient currently on percocet 10 /325 every 6 hours, and Neurontin 400 mg 3 times a day, the medications is not helping to improve her pain Patient denies any side effect of the medication , patient denies any excessive drowsiness or sleepiness, patient denies any suicidal ideation, Patient reported that the current medication is helping to control the pain and improve the activity of daily livings, Patient denies any motor or sensory deficit, denies any change in the bowel movement or urination, patient denies any fever or night sweats. Patient here today for follow-up visit Physical Examinations : 1-Constitutiona : Cooperative , not in acute distress . 2-HEENT : nech ; supple , no Lymphadenopathy , normal thyroid size . eyes : no ptosis , no icterus , no photophobia . ENT : normal of hearing , normal oropharynx , no Thrush . 3- Respiratory : Chest clear to auscultations Bilaterally , no wheezing , no Rhonchi . 4- Cardiovascular : regular rate and rhythem , S1 , S2 , no S3 , no S4. 5- Gastrointestinal : abdomen soft no tenderness , bowel sounds , no organomegally . 6- Genitourinary : Defferred . 7- neurologic : Cranial nerve II to XII intact , no focal neurological deffecit . 8-psychatric : alert , oriented X 3 , appropriate affect , intact judgment and insight . 9-Lymphatic : no Lymphadenopathy . 10- musculoskeltal : Lumber spine = normal moter stegnth lower extremities ,thigh and legs .5/5 on the left , 4/5 on the right side deep tendon reflexes : normal Knee Jerk , normal ankle Jerk . lumber facet Loading Test positive on the right side and is negative on the left side strait leg raising test negative bilaterally Fabere test negative bilaterally Sever tenderness over the Sacroiliac joint on the Right Assessment and plan= chronic low back pain secondary to lumbar degenerative disc disease , lumbar spondylosis with lumbar facet arthropathy . Currently most of the pain is coming from the facetogenic component on the right side patient could benefit from repeat radiofrequency ablation of the medial branch lumbar area on the right side at L3 4/L4 5/L5-S1 chronic and current use of high-risk medication (opioids) Patient denies any side effects of the current pain medication and the current treatment/medication helping the patient to do activity of daily living , Diagnoses, prognosis, treatment options, including but not limited to physical therapy, medication management, interventional therapies, and surgery, were discussed with the patient All the questions answered The narcotic consent was signed and patient agreed and understood the side effects and complications of opioid treatment. Patient signed the narcotic agreement, and was orally counseled, not to overuse, not to abuse, not to Divert , not tp sell pain medication, and to take it as prescribed only, Patient was counseled not to drive or operate heavy equipment while using narcotic medication, and advised not to use alcohol or any Illicit drugs while using the narcotis, understanding that lack of compliance with any of the above instructions, will likely to cause discharge from, the pain service, not to renew his narcotic prescriptions Medication managements= patient will be given prescription for Percocet 10 / 325 every 6 hours,, continue Neurontin 400 mg 3 times a day. Patient is scheduled to have Radiofrequency ablation medial branch lumbar area at Right L3-4 , L4 5 and L5-S1 , PQRS Measure Charge Sheet Measure #130: Documentation of Current Meds in Medical Chart: Patient's medications documented in chart Measure #226: Tobacco Use: Screen & Cessation Intervention: Pt screened for tobacco use AND intervention given Measure #111: Pneumonia Vaccination: Pneumococcal vaccine NOT administered or previously given Measure #47: Advance Care Plan: Advance care planning discussed & documented, pt chose/unable to give Measure #412: Opioid Treatment Agreement: Documented signed opioid trtmnt agreemnt min once during opioid trtmnt Measure #408: Opioid Therapy Follow-up Evaluation: Patient had f/u eval minimum every 3 months during opioid therapy Measure #317: Preventitive Care & Scrn High Bld Press & F/U: Normal blood pressure, f/u not required Measure #128: Body Mass Index (BMI) Screening & Follow-up: BMI documented ABOVE normal parameters - f/u documented Measure #131: Pain Assessment & Follow-up: Pain positive & plan documented, Follow-up scheduled Measure #431: Unhealthy Alcohol Use Preventative Care & Scrn: Patient not identified as an unhealthy alcohol user PQRS Narrative: - Controlled Substance Measures Is patient prescribed a controlled substance at discharge?: Yes When asked, does pt state using other controlled substances?: No If prescribed controlled substance>3 days was MAPS reviewed?: Yes If Rx opioid, was Start Talking consent form obtained?: Yes If opioid is for acute pain is fill amount 7 days or less?: No Was information provided regarding opioid addiction?: Yes Objective - Vital Signs Vital signs: Vital Signs Temp Pulse 120 H 08/09/18 12:09 Resp 16 08/09/18 12:09 BP 119/81 08/09/18 12:09 Pulse Ox 100 08/09/18 12:09 Intake & Output 08/09/18 08/09/18 08/10/18 06:59 18:59 06:59 Weight 67.132 kg
== END ==
LOC: PNWHC3 12:02
PROVIDERS: ATTEND Specialist
DX: G89.29 Other chronic pain (principal); M51.36 Other intervertebral disc degeneration, lumbar region; M47.816 Spondylosis without myelopathy or radiculopathy, lumbar region; M46.96 Unspecified inflammatory spondylopathy, lumbar region; Z79.891 Long term (current) use of opiate analgesic; Z79.899 Other long term (current) drug therapy
CPT/HCPCS: 99211

== ENCOUNTER 2018-09-01 06:59 | Day surgery (SDC) | payer OTHER ==
[2018-08-31 12:58] VITALS: BMI 26.0
[2018-09-01] MEDS ORDERED: SODIUM CHLORIDE 0.9% 500 ML 500 ML IV SCH (07:00)
[2018-09-01 07:54] VITALS: RESP 16; TEMP 98.5
[2018-09-01] MEDS ORDERED: LACTATED RINGERS 1,000 ML IV ONE (08:06)
[2018-09-01] MEDS ORDERED: ONDANSETRON 4 MG/2 ML VIAL IVP ONE (09:07)
--- NOTE | 2018-09-01 09:32 | FL ---
EXAMINATION TYPE: FL guided pain mgmt statistic DATE OF EXAM: 09/01/2018 HISTORY: Flouroscopy time 10 seconds of fluoroscopy provided. IMPRESSION: 1. Fluoroscopy time.
[2018-09-01 09:36] VITALS: BP 108/77; PULSE 76
[2018-09-01] MEDS ORDERED: fentaNYL (PF) 50 MCG/ML 2 ML AMP IVP ONE (09:36)
[2018-09-01] MEDS ORDERED: IV FLUID CONTINUATION 1,000 ML IV ONE (09:48)
--- NOTE | 2018-09-07 11:00 | P.PCN ---
Date of Procedure: 09/01/18 Procedure(s) Performed: PREOPERATIVE DIAGNOSIS: 1-Lumbar Spondylosis with Facet Arthropathy without myelopathy. POSTOPERATIVE DIAGNOSIS: 1- Lumbar Spondylosis with Facet Arthropathy without myelopathy. PROCEDURES : Right Radiofrequency thermocoagulation, L3-L4, L4-L5, and L5-S1 medial branch, with fluoroscopic guidance ANESTHESIA: Moderate sedation with intravenous versed 2 mg and fentaneyl 100 mcg, and local infiltration with Ropivacaine 0.5 % . EBL: Minimal PROCEDURE INDICATION: The patient with low back pain secondary to lumbar facet arthropathy who had more than 50% relief of her pain with previous diagnostic lumbar medial branch block with bupivacaine. PROCEDURE DESCRIPTION / TECHNIQUE: The patient was seen and identified in the preoperative area. Risks, benefits, complications, including but not limited to risk of infection ,bleeding , allergic reactions to the medications and no complete pain releife , and alternatives were discussed with the patient, the patient agreed to proceed with the procedure and signed the consent. IV was started. Vital signs remained stable throughout the procedure. Patient was taken to the OR and time out was completed. The patient was placed in the prone position on the procedure table. The lumber area was prepped and draped in the usual sterile fashion. . Vital signs were closely monitored during the procedure .IV sedation was used during the procedure to decrease patients anxiety. Using AP and then oblique fluoroscopy, the ``eye of the Fernando dog corresponding to the connection between the superior and transverse articular processes of right L3, L4, and L5 were identified, marked, and localized with 1% lidocaine. Subsequently, a 18 [id number] radiofrequency cannula with a 10- mm active tip was advanced guided by fluoroscopy to each of the``eyes of the Fernando dog at right L3, L4, and L5. Each site then underwent sensory testing at 50 Hz and 0 to 1 volt and motor testing at 2.5 Hz and 0 to 3 volt with local stimulation, but no radicular symptoms down the legs. Thereafter the right L3-4, L4-5, and L5-S1 sites underwent radiofrequency thermocoagulation at 80 degrees celsius for 90 seconds after injecting 0.5 ml of PF Ropivacaine 1ml, then after the thermocoagulation done , 1 ml of the block solution containing depo-medrl 40 mg and 3 ml of Ropivacaine 0.5% was injected at the right L3-4 , L4-5 , and L5-S1, levels after negative aspiration of CSF and blood and with no paresthesias. Cannulas were retracted while injecting lidocaine 1% until the needle is out. At the end of the procedure, the skin was cleansed and bandages were applied. COMPLICATIONS: No acute complications. DISPOSITION / PLANS: The patient was placed in a supine position and transferred to the recovery area in a stable condition for observation and was discharged from the recovery room after meeting discharge criteria. Home discharge instructions given to the patient by the staff. The patient was reexamined prior to discharge. The patient will schedule a follow up in the clinic in 2-4 weeks.
== END 2018-09-01 10:00 | disposition home or self-care (01) ==
LOC: ORPAIN 06:59
PROVIDERS: ATTEND Anesthesiology
DX: M47.816 Spondylosis without myelopathy or radiculopathy, lumbar region (principal); I10 Essential (primary) hypertension; J44.9 Chronic obstructive pulmonary disease, unspecified; M51.36 Other intervertebral disc degeneration, lumbar region; Z87.442 Personal history of urinary calculi; Z88.6 Allergy status to analgesic agent; Z88.5 Allergy status to narcotic agent; Z91.013 Allergy to seafood
CPT/HCPCS: 64635; 64636 ×2; J2250; J1030; J2405; J3010; 99152; 99153

== ENCOUNTER → 2018-10-04 | Outpatient (CLI) | payer OTHER ==
[2018-10-04 13:31] VITALS: BP 118/82; PULSE 111; RESP 18
--- NOTE | 2018-10-04 14:05 | P.PN ---
Subjective Progress Note Date: 10/04/18 This is a 48-year-old lady with history of chronic lower back pain due to lumbar spondylosis without myelopathy. She also has pain in the right leg and weakness due to lumbar radiculopathy.. The patient is having progressive weakness in the right lower extremity not explainable by her last MRI results . She denies any bowel or bladder dysfunction. Her pain is relatively controlled by combination of interventional pain procedures and opioids. The last procedure she had was right lumbar medial branch RFA. She still feels some pain after the right side was done however she has very good results after doing the left side 5 years ago. Today, pt denies new-onset weakness, bowel/bladder incontinence, or any other signs or symptoms of cauda equina syndrome. There are no signs of acute intoxication, and no indications of medication diversion or overuse. In addition to above, 13-point review of systems is also negative for chest pain, shortness of breath, changes in vision, changes in hearing, new onset weakness, abdominal pain, diarrhea, extreme fatigue, malaise, fever, skin changes, homicidal or suicidal ideation, or bowel or bladder incontinence. Vital Signs: Reviewed in EMR Gen: AAOx3, NAD HEENT: PERRLA,hearing grossly normal Pulm: resp unlabored,CTA Heart:S1,S2, No Mur Neck: supple, trachea midline Neuro exam of the lower extremities: Decreased right knee flexion and extension to 4 out of 5 most of the neuro exam of the lower extremities is within normal limits. Straight leg raising test: Negative bilaterally Positive tenderness in the right lumbar paravertebral musculature Neuro: CN II-XII grossly intact, Imaging: Reviewed in EMR/chart Assessment: Lumbar spondylosis without myelopathy Right lumbar radiculopathy Progressive weakness in the right lower extremity Chronic pain syndrome Opioid dependence Plan: 1. Explanation: Opioid and psychological risk scores were reviewed. Diagnoses, prognoses, and multiple treatment options including but not limited to physical therapy, interventional therapies, adjuvant medical therapies, narcotic medication therapies, and surgery were discussed with the patient and all questions were answered to the patient's satisfaction. 2. Opioid agreement: Signed with the patient and the patient is warned not to use opioids while driving or before driving and not to combine opioids with benzodiazepines or alcohol. 3. Counseling: The patient was counseled extensively on SMOKING CESSATION, BODY MASS INDEX, EXERCISE. Specifically, the patient was instructed regarding the importance of smoking cessation, obesity, and exercise in the context of both chronic pain and overall health. 4. Procedures: None at this point 5. Consultations: I will refer the patient to see our neurosurgeon for her history of progressive right lower extremity weakness 6. Investigations: None 7. Medications: Continue Percocet 4 times a day however I will decrease the dose to 3 times a day next month. I'll give her prescription for 120 pills for this month and 90 pills for next month. 8. Disposition: Return to clinic in 8 weeks 9. Maps were reviewed and were appropriate. PQRS measures: 1-Patient's medications are documented in the chart. 2-Tobacco use is positive, counseling given 3-Patient hasnot had a pneumococcal vaccine. 4-Advanced care planning discussed, patient unable to give 5-Opioid contract signed with the patient. 6-Pain positive, follow-up visit or procedure scheduled 7-Patient's blood pressure measured and documented within normal limits. 8-Patient's weight was measured, and body mass index ABOVE the normal limits, and counseling was done. Patient instructed to follow up with PCP. 9-Patient WAS NOT identified as an unhealthy alcohol user. Controlled Substance Measures Is patient prescribed a controlled substance at discharge?: Yes When asked, does pt state using other controlled substances?: No If prescribed controlled substance>3 days was MAPS reviewed?: Yes If Rx opioid, was Start Talking consent form obtained?: Yes If opioid is for acute pain is fill amount 7 days or less?: No Was information provided regarding opioid addiction?: Yes Objective - Vital Signs Vital signs: Vital Signs Temp Pulse 111 H 10/04/18 13:25 Resp 18 10/04/18 13:25 BP 118/82 10/04/18 13:25 Pulse Ox 99 10/04/18 13:25 Intake & Output 10/03/18 10/04/18 10/04/18 18:59 06:59 18:59 Weight 70.307 kg
== END ==
LOC: PNWHC3 12:52
PROVIDERS: ATTEND Anesthesiology
DX: G89.4 Chronic pain syndrome (principal); M47.26 Other spondylosis with radiculopathy, lumbar region; R53.1 Weakness; F11.20 Opioid dependence, uncomplicated; Z72.0 Tobacco use; Z79.891 Long term (current) use of opiate analgesic
CPT/HCPCS: 99211

== ENCOUNTER 2018-10-14 13:59 | Observation (INO) | payer OTHER ==
[2018-10-14] MEDS ORDERED: SODIUM CHLORIDE 0.9% 500 ML 500 ML IV STA (14:02)
[2018-10-14] MEDS ORDERED: HYDROmorphone 1 MG/ML 1 ML SYRINGE IVP STA ×2 (14:03→15:19)
[2018-10-14] MEDS ORDERED: PANTOPRAZOLE 40 MG/10 ML VIAL IVP STA (14:03)
[2018-10-14] MEDS ORDERED: LORazepam 2 MG/ML INJ IV STA (14:22)
--- NOTE | 2018-10-14 14:30 | ED ---
General Adult HPI - General Chief complaint: Chest Pain Stated complaint: Chest Pain Time Seen by Provider: 10/14/18 14:04 Source: patient, RN notes reviewed, old records reviewed Mode of arrival: ambulatory Limitations: no limitations - History of Present Illness Initial comments: 48-year-old female presents for evaluation of chest pain and epigastric pain. Patient's symptoms began just prior to arrival. She is transported by EMS with 10 out of 10 chest pain. Given aspirin and nitroglycerin as well as 8 mg of morphine by EMS prior to arrival. She still is having significant chest. The time my evaluation, describes as a sharp substernal chest pain. She is also experiencing dyspnea and epigastric pain. Previous surgical history of cholecys tectomy. Denies fever or chills. Denies productive cough. Denies any arm or neck pain. Patient is a current smoker. History of chronic musculoskeletal pain. - Related Data Home Medications Medication Instructions Recorded Confirmed Dextroamphetamine/Amphetamine 30 mg PO QAM 07/30/17 10/14/18 [Adderall] Atenolol [Tenormin] 50 mg PO DAILY 07/29/18 10/14/18 clonazePAM [KlonoPIN] 1 tab PO BID PRN 08/09/18 10/14/18 Aspirin EC [Ecotrin Low Dose] 81 mg PO DAILY 10/14/18 10/14/18 Doxepin HCl [SINEquan] 100 mg PO HS 10/14/18 10/14/18 Previous Rx's Medication Instructions Recorded oxyCODONE-APAP 10-325MG [Percocet 1 tab PO Q6HR PRN 30 Days #120 tab 08/09/18 10-325 mg] Allergies Allergy/AdvReac Type Severity Reaction Status Date / Time ketorolac [From Toradol] Allergy Anaphylaxis Verified 10/14/18 14:23 shellfish derived Allergy Anaphylaxis Verified 10/14/18 14:23 tramadol [From Ultram] Allergy Rash/Hives Verified 10/14/18 14:23 ibuprofen AdvReac Nausea Verified 10/14/18 14:23 morphine AdvReac Nausea Verified 10/14/18 14:23 Review of Systems ROS Statement: Those systems with pertinent positive or pertinent negative responses have been documented in the HPI. ROS Other: All systems not noted in ROS Statement are negative. Past Medical History Past Medical History: COPD, GERD/Reflux, Hypertension, Myocardial Infarction ([place]), Pneumonia, Skin Disorder Additional Past Medical History / Comment(s): chronic back pain, lumbar degenerative disc disease, insomnia, hx shingles, hiatal hernia, kidney stones. 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, migraines,; obstetrical history is significant for 1 miscarriage and 1 term that required a section Last Myocardial Infarction Date:: 08/27/2016 History of Any Multi-Drug Resistant Organisms: MRSA Date of last positivie culture/infection: 09/22/09 MDRO Source:: neck Past Surgical History: Appendectomy, Back Surgery, Section, Cholecystectomy Additional Past Surgical History / Comment(s): Cervical spine fusion with inse rtion of a metal plate, EGD, colonoscopy, lumbar rhizotomy and radiofrequency ablation Past Anesthesia/Blood Transfusion Reactions: No Reported Reaction Additional Past Anesthesia/Blood Transfusion Reaction / Comment(s): CLAUSTROPHOBIA Past Psychological History: ADD/ADHD, Anxiety Smoking Status: Current every day smoker Past Alcohol Use History: Rare Past Drug Use History: None Reported - Past Family History Father Family Medical History: Cancer Additional Family Medical History / Comment(s): Father at age 48 from lung cancer. Mother Family Medical History: Congestive Heart Failure (CHF), CVA/TIA Additional Family Medical History / Comment(s): Mother is alive at age 68. She has suffered from a CVA and has chronic back problems. Patient has 2 brothers and 4 sisters with no major medical problems. General Exam Limitations: no limitations General appearance: alert, in no apparent distress Head exam: Present: atraumatic, normocephalic Eye exam: Present: normal appearance, PERRL ENT exam: Present: normal exam Neck exam: Present: normal inspection. Absent: tenderness, meningismus Respiratory exam: Present: wheezes. Absent: respiratory distress Cardiovascular Exam: Present: normal rhythm, tachycardia GI/Abdominal exam: Present: soft, tenderness (Epigastric, right upper quadrant tenderness, no rebound or guarding). Absent: distended Extremities exam: Present: normal inspection, normal capillary refill, other ( bilateral radial and posterior tibial pulses 2+.) Neurological exam: Present: alert, oriented X3, CN II-XII intact. Absent: motor sensory deficit Psychiatric exam: Present: normal affect, normal mood Skin exam: Present: warm, dry, intact. Absent: cyanosis, diaphoretic Course Vital Signs 10/14/18 10/14/18 10/14/18 14:01 15:10 15:11 Temperature 98.3 F Pulse Rate 119 H 119 H Pulse Rate [ 119 H Fitness Leader ] Respiratory 30 H 24 Rate Blood Pressure 132/97 107/83 O2 Sat by Pulse 100 99 Oximetry - Reevaluation(s) Reevaluation #1: 10/14/18 1530 Remain dyspneic, tachycardic. CT angiography is obtained to rule out pulmonary embolus. This is negative for PE. EKG Findings - EKG Comments: EKG Findings:: EKG: Sinus tachycardia, rate of 104, Q waves in the inferior leads, no ST segment elevation or depression, NM interval 160, QRS duration 78, QTC 447. T-wave inversion in V2 similar compared to previous EKG. Medical Decision Making - Medical Decision Making 48-year-old female with chief complaint of chest pain. Symptoms began just prior to arrival. Given aspirin nitroglycerin by EMS. EKG is unchanged from baseline with no ST segment elevation. Chest x-ray obtained, negative for acute cardiac disease. Patient has normal CBC, normal CMP, troponin is negative. CT angiography obtained as the patient was tachycardic, dyspneic with persistent chest pain. This is negative for pulmonary embolism. Patient's vital signs do improve with symptomatic treatment. She will be kept in observation for serial cardiac enzymes. Cardiology will be placed on consult. Case is discussed with admitting physician. - Lab Data Result diagrams: 10/14/18 14:15 10/14/18 14:15 Lab Results 10/14/18 10/14/18 10/14/18 Range/Units 14:15 14:15 14:15 WBC 7.7 (3.8-10.6) k/uL RBC 5.18 (3.80-5.40) m/uL Hgb 15.6 (11.4-16.0) gm/dL Hct 49.0 H (34.0-46.0) % MCV 94.6 (80.0-100.0) fL MCH 30.1 (25.0-35.0) pg MCHC 31.8 (31.0-37.0) g/dL RDW 13.4 (11.5-15.5) % Plt Count 361 (150-450) k/uL Neutrophils % 54 % Lymphocytes % 29 % Monocytes % 12 % Eosinophils % 3 % Basophils % 1 % Neutrophils # 4.2 (1.3-7.7) k/uL Lymphocytes # 2.2 (1.0-4.8) k/uL Monocytes # 0.9 (0-1.0) k/uL Eosinophils # 0.2 (0-0.7) k/uL Basophils # 0.0 (0-0.2) k/uL PT (9.0-12.0) sec INR (<1.2) APTT (22.0-30.0) sec Sodium 140 (137-145) mmol/L Potassium 4.8 (3.5-5.1) mmol/L Chloride 106 (98-107) mmol/L Carbon Dioxide 24 (22-30) mmol/L Anion Gap 10 mmol/L BUN 12 (7-17) mg/dL Creatinine 0.67 (0.52-1.04) mg/dL Est GFR (CKD-EPI)AfAm >90 (>60 ml/min/1.73 sqM) Est GFR (CKD-EPI)NonAf >90 (>60 ml/min/1.73 sqM) Glucose 86 (74-99) mg/dL Calcium 10.5 H (8.4-10.2) mg/dL Magnesium 1.9 (1.6-2.3) mg/dL Total Bilirubin 0.3 (0.2-1.3) mg/dL AST 23 (14-36) U/L ALT 35 (9-52) U/L Alkaline Phosphatase 112 (38-126) U/L Troponin I (0.000-0.034) ng/mL NT-Pro-B Natriuret Pep 23 pg/mL Total Protein 7.7 (6.3-8.2) g/dL Albumin 4.4 (3.5-5.0) g/dL Lipase 77 (23-300) U/L 10/14/18 10/14/18 Range/Units 14:15 14:15 WBC (3.8-10.6) k/uL RBC (3.80-5.40) m/uL Hgb (11.4-16.0) gm/dL Hct (34.0-46.0) % MCV (80.0-100.0) fL MCH (25.0-35.0) pg MCHC (31.0-37.0) g/dL RDW (11.5-15.5) % Plt Count (150-450) k/uL Neutrophils % % Lymphocytes % % Monocytes % % Eosinophils % % Basophils % % Neutrophils # (1.3-7.7) k/uL Lymphocytes # (1.0-4.8) k/uL Monocytes # (0-1.0) k/uL Eosinophils # (0-0.7) k/uL Basophils # (0-0.2) k/uL PT 9.7 (9.0-12.0) sec INR 0.9 (<1.2) APTT 25.8 (22.0-30.0) sec Sodium (137-145) mmol/L Potassium (3.5-5.1) mmol/L Chloride (98-107) mmol/L Carbon Dioxide (22-30) mmol/L Anion Gap mmol/L BUN (7-17) mg/dL Creatinine (0.52-1.04) mg/dL Est GFR (CKD-EPI)AfAm (>60 ml/min/1.73 sqM) Est GFR (CKD-EPI)NonAf (>60 ml/min/1.73 sqM) Glucose (74-99) mg/dL Calcium (8.4-10.2) mg/dL Magnesium (1.6-2.3) mg/dL Total Bilirubin (0.2-1.3) mg/dL AST (14-36) U/L ALT (9-52) U/L Alkaline Phosphatase (38-126) U/L Troponin I <0.012 (0.000-0.034) ng/mL NT-Pro-B Natriuret Pep pg/mL Total Protein (6.3-8.2) g/dL Albumin (3.5-5.0) g/dL Lipase (23-300) U/L Disposition Clinical Impression: Chest pain Disposition: ADMITTED IP TO THIS [facility] Condition: Stable Is patient prescribed a controlled substance at d/c from ED?: No Referrals: Estelle Butterfield DO [Primary Care Provider] - 1-2 days Decision to Admit Reason: Admit from EC Decision Date: 10/14/18 Decision Time: 16:24
[2018-10-14 14:36] LABS: Basophils % (A) 1 %; Eosinophils # (A) 0.2 k/uL (0-0.7); Eosinophils % (A) 3 %; HGB 15.6 gm/dL (11.4-16.0); Lymphocytes # (A) 2.2 k/uL (1.0-4.8); Lymphocytes % (A) 29 %; MCH 30.1 pg (25.0-35.0); MCHC 31.8 g/dL (31.0-37.0); MCV 94.6 fL (80.0-100.0); Mean Platelet Volume 6.6; Monocytes # (A) 0.9 k/uL (0-1.0); Monocytes % (A) 12 %; Neutrophils # (A) 4.2 k/uL (1.3-7.7); Neutrophils % (A) 54 %; Platelet Count 361 k/uL (150-450); RBC 5.18 m/uL (3.80-5.40); RDW 13.4 % (11.5-15.5); WBC 7.7 k/uL (3.8-10.6)
[2018-10-14 14:45] LABS: ALT 35 U/L (9-52); AST 23 U/L (14-36); Albumin 4.4 g/dL (3.5-5.0); Alkaline Phosphatase 112 U/L (38-126); Anion Gap 10 mmol/L; Blood Urea Nitrogen 12 mg/dL (7-17); Calcium 10.5 mg/dL (8.4-10.2); Carbon Dioxide 24 mmol/L (22-30); Chloride 106 mmol/L (98-107); Glucose 86 mg/dL (74-99); Lipase 77 U/L (23-300); Magnesium 1.9 mg/dL (1.6-2.3); Potassium 4.8 mmol/L (3.5-5.1); Sodium 140 mmol/L (137-145); Total Bilirubin 0.3 mg/dL (0.2-1.3); Total Protein 7.7 g/dL (6.3-8.2)
[2018-10-14 14:52] LABS: INR 0.9 (<1.2); Partial Thromboplastin Time 25.8 sec (22.0-30.0); Prothrombin Time 9.7 sec (9.0-12.0)
--- NOTE | 2018-10-14 14:53 | XR ---
EXAMINATION TYPE: XR chest 2V DATE OF EXAM: 10/14/2018 COMPARISON: Chest x-ray July 28, 2018. HISTORY: Chest and epigastric pain. TECHNIQUE: Frontal and lateral views of the chest are obtained. FINDINGS: Patchy lingular parenchymal scarring again seen. There is no focal air space opacity, pleu ral effusion, or pneumothorax seen. The cardiac silhouette size is within normal limits. Anterior fu elizabeth plate lower cervical spine is redemonstrated. Cholecystectomy clips are redemonstrated. IMPRESSION: No acute cardiopulmonary process. No significant change from prior.
[2018-10-14] MEDS ORDERED: SODIUM CHLORIDE 0.9% 500 ML 500 ML IV ONE (15:19)
--- NOTE | 2018-10-14 16:05 | CT ---
EXAMINATION TYPE: CT angio chest DATE OF EXAM: 10/14/2018 COMPARISON: 03/26/2017 HISTORY: Mid chest pain today. CT DLP: 312.7 mGycm CONTRAST: CT chest with contrast and 3D reconstruction with MIP imaging is performed with IV Contrast, patient injected with 70 mL of Isovue 370. Contrast-enhanced CT of the chest was performed through the course of the pulmonary arteries with susanna g and mediastinal window settings submitted. 3D reconstruction with MIP imaging was also performed. PULMONARY ARTERIES: The pulmonary arteries and their major tributaries are patent. I do not see denise dence for sizable filling defect to suggest pulmonary embolic process. LUNGS: The lungs are clear and free of infiltrate. Small area of lingular atelectasis. Minimal Emphys ematous changes. No pulmonary nodule or mass is detected. No pleural effusion. MEDIASTINUM: Thoracic aorta is of normal caliber,however, evaluation is limited given timing of the contrast bolus. If there is concern for thoracic aortic pathology consider VILMA. Correlate clinicall y . The heart is not enlarged. No evidence for mediastinal mass. No mediastinal lymph nodes greater than 1cm. HILAR STRUCTURES: No evidence for mass. No hilar lymph nodes greater than 1 cm. UPPER ABDOMEN: No significant abnormality is seen. IMPRESSION: 1. No evidence for Pulmonary embolism at this time.
[2018-10-14] MEDS ORDERED: LORazepam 2 MG/ML INJ IV PRN (16:19)
[2018-10-14] MEDS ORDERED: NALOXONE 0.4 MG/ML 1 ML VIAL IV PRN (16:19)
[2018-10-14] MEDS ORDERED: ACETAMINOPHEN TAB 325 MG TAB PO PRN (16:19)
--- NOTE | 2018-10-14 17:35 | P.HPIM ---
History of Present Illness H&P Date: 10/14/18 Chief Complaint: Chest pain 48-year-old female with past medical history anxiety, hypertension, infectious colitis for which she sees Dr. Ramakrishna Quarles, chronic back pain presents the ED for chest pain. 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 She reports that she was laying down when this pain occurred around noon. Pain is constant, located right in the middle. Pain is 10 out of 10 in severity. Pain is sharp and stabbing in nature. Patient reports no alleviating factors except for IV pain medications that she has received while here. Patient reports that the pain is worse with deep inspiration and with movement. She denies any headache, lower extremity edema, fever, chills, cough, shortness of breath, changes in urination or bowel habits. She does report mild nausea with the pain along with some shortness of breath. Of note, patient reports suffering a mild myocardial infarction 2 years ago. She reports that the pain is similar to that when she suffered a heart attack. In the ED, CBC was unremarkable. Coagulation panel was negative. CMP was negative except for calcium of 10.5. Troponin was less than 0.012, EKG showing sinus tachycardia. Chest CT was negative for PE. Chest x-ray was negative. Patient is admitted for chest pain, rule out acute coronary syndrome, cardiology is on consult. Review of Systems All systems: negative Past Medical History Past Medical History: COPD, GERD/Reflux, Hypertension, Myocardial Infarction ([place]), Pneumonia, Skin Disorder Additional Past Medical History / Comment(s): chronic back pain, lumbar degenerative disc disease, insomnia, hx shingles, hiatal hernia, kidney stones. 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, migraines,; obstetrical history is significant for 1 mis carriage and 1 term that required a section Last Myocardial Infarction Date:: 08/27/2016 History of Any Multi-Drug Resistant Organisms: MRSA Date of last positivie culture/infection: 09/22/09 MDRO Source:: neck Past Surgical History: Appendectomy, Back Surgery, Section, Cholecystectomy Additional Past Surgical History / Comment(s): Cervical spine fusion with insertion of a metal plate, EGD, colonoscopy, lumbar rhizotomy and radiofrequency ablation Past Anesthesia/Blood Transfusion Reactions: No Reported Reaction Additional Past Anesthesia/Blood Transfusion Reaction / Comment(s): CLAUSTROPHOBIA Past Psychological History: ADD/ADHD, Anxiety Smoking Status: Current every day smoker Past Alcohol Use History: Rare Past Drug Use History: None Reported - Past Family History Father Family Medical History: Cancer Additional Family Medical History / Comment(s): Father at age 48 from lung cancer. Mother Family Medical History: Congestive Heart Failure (CHF), CVA/TIA Additional Family Medical History / Comment(s): Mother is alive at age 68. She has suffered from a CVA and has chronic back problems. Patient has 2 brothers a nd 4 sisters with no major medical problems. Medications and Allergies Home Medications Medication Instructions Recorded Confirmed Type Dextroamphetamine/Amphetamine 30 mg PO QAM 07/30/17 10/14/18 History [Adderall] Atenolol [Tenormin] 50 mg PO DAILY 07/29/18 10/14/18 History clonazePAM [KlonoPIN] 1 tab PO BID PRN 08/09/18 10/14/18 History oxyCODONE-APAP 10-325MG [Percocet 1 tab PO Q6HR PRN 30 Days #120 tab 08/09/18 10/14/18 Rx 10-325 mg] Aspirin EC [Ecotrin Low Dose] 81 mg PO DAILY 10/14/18 10/14/18 History Doxepin HCl [SINEquan] 100 mg PO HS 10/14/18 10/14/18 History Allergies Allergy/AdvReac Type Severity Reaction Status Date / Time ketorolac [From Toradol] Allergy Anaphylaxis Verified 10/14/18 14:23 shellfish derived Allergy Anaphylaxis Verified 10/14/18 14:23 tramadol [From Ultram] Allergy Rash/Hives Verified 10/14/18 14:23 ibuprofen AdvReac Nausea Verified 10/14/18 14:23 morphine AdvReac Nausea Verified 10/14/18 14:23 Physical Exam Vitals: Vital Signs Temp Pulse Pulse Resp BP Pulse Ox 10/14/18 16:14 95 16 100/67 100 10/14/18 15:11 119 H 10/14/18 15:10 119 H 24 107/83 99 10/14/18 14:01 98.3 F 119 H 30 H 132/97 100 Intake and Output 10/14/18 10/14/18 10/14/18 06:59 14:59 22:59 Other: Weight 67.132 kg General: [non toxic], [no distress], [appears at stated age] Derm: [warm], [dry] Head: [atraumatic], [normocephalic], [symmetric] Eyes: [EOMI], [no lid lag], [anicteric sclera] Mouth: [no lip lesion], [mucus membranes moist] Cardiovascular: [S1S2 reg], [tachycardia], [positive DP pulse bilateral] Lungs: [CTA bilateral], [no rhonchi, no rales] , [no accessory muscle use] Abdominal: [soft], [ nontender to palpation], [no guarding], [no appreciable organomegaly] Ext: [no gross muscle atrophy], [no edema], [no contractures] Neuro: [ CN II-XI grossly intact], [no focal neuro deficits] Psych: [Alert], [oriented], [appropriate affect] Results CBC & Chem 7: 10/14/18 14:15 10/14/18 14:15 Labs: Abnormal Lab Results - Last 24 Hours (Table) 10/14/18 10/14/18 Range/Units 14:15 14:15 Hct 49.0 H (34.0-46.0) % Calcium 10.5 H (8.4-10.2) mg/dL Thrombosis Risk Factor Assmnt - Choose All That Apply Any of the Below Risk Factors Present?: Yes Each Factor Represents 1 point: Age 41-60 years Other Risk Factors: No Thrombosis Risk Factor Assessment Total Risk Factor Score: 1 Thrombosis Risk Factor Assessment Level: Low Risk Assessment and Plan Assessment: Assessment and Plan 1. Chest pain 2. Tachycardia 3. Hypertension 4. Anxiety 5. ADHD 1. Does not appear like acute coronary syndrome but has concerns due to previous [place]. Chest x-ray is negative for acute process. CTA chest is negative for PE. Troponin is less than 0.012, EKG showing sinus tachycardia. Trend 2 troponin/EKG to rule out acute coronary syndrome. Pain management with Tylenol, Dilaudid as needed (allergy to Morphine). Will follow echocardiogram. Continue aspirin 325 mg by mouth daily. Restart atenolol. Telemetry monitoring. Will follow cartilage recommendations. 2. Sinus tachycardia and ED in the 110s. PE ruled out. Adequate pain management. Ativan as needed for anxiety. Telemetry monitoring. We'll continue to monitor. 3. BP 100/67. Continue atenolol. Monitor vitals, adjust medications as ne cessary. 4. Discontinue Ativan IV and restart clonazepam 1 tab by mouth twice a day as needed for anxiety. 5. Continue Adderall. Patient is admitted for chest pain, rule out acute coronary syndrome. Cardiology is on consult. Patient would like to name her tabby Brannon decision- maker in the case that she can't make decisions for herself. She would like to remain full code. Patient requesting IV pain medication throughout the entire H&P, possible concern for drug-seeking behavior.
[2018-10-14] MEDS: HYDROmorphone 0.5 MG/0.5 ML SYRINGE IVP PRN ×2 (18:59→22:00)
[2018-10-14] MEDS: HEPARIN SODIUM,PORCINE 5,000 UNIT/ML 1 ML VIAL SQ SCH (20:31)
[2018-10-14] MEDS: clonazePAM 0.5 MG TAB PO PRN (20:31)
[2018-10-14 20:43] VITALS: BMI 28.7
[2018-10-14] MEDS ORDERED: DOXEPIN 25 MG CAP PO SCH (21:00)
[2018-10-14] MEDS: SODIUM CHLORIDE 0.9% 1,000 ML IV SCH (22:01)
[2018-10-15] MEDS: HYDROmorphone 0.5 MG/0.5 ML SYRINGE IVP PRN ×4 (00:52→10:18)
[2018-10-15] MEDS: SODIUM CHLORIDE 0.9% 1,000 ML IV SCH ×2 (05:54→07:25)
[2018-10-15 06:52] LABS: Basophils % (A) 1 %; Eosinophils # (A) 0.3 k/uL (0-0.7); Eosinophils % (A) 4 %; HCT 43.8 % (34.0-46.0); HGB 13.8 gm/dL (11.4-16.0); Lymphocytes # (A) 2.3 k/uL (1.0-4.8); Lymphocytes % (A) 32 %; MCH 30.4 pg (25.0-35.0); MCHC 31.4 g/dL (31.0-37.0); MCV 96.6 fL (80.0-100.0); Mean Platelet Volume 6.1; Monocytes # (A) 0.7 k/uL (0-1.0); Monocytes % (A) 9 %; Neutrophils # (A) 3.7 k/uL (1.3-7.7); Neutrophils % (A) 52 %; Platelet Count 326 k/uL (150-450); RBC 4.54 m/uL (3.80-5.40); RDW 13.6 % (11.5-15.5); WBC 7.1 k/uL (3.8-10.6)
[2018-10-15 07:03] LABS: Anion Gap 7 mmol/L; Blood Urea Nitrogen 15 mg/dL (7-17); Calcium 9.5 mg/dL (8.4-10.2); Carbon Dioxide 23 mmol/L (22-30); Chloride 108 mmol/L (98-107); Glucose 89 mg/dL (74-99); Potassium 4.7 mmol/L (3.5-5.1); Sodium 138 mmol/L (137-145)
[2018-10-15] MEDS ORDERED: PANTOPRAZOLE 40 MG/10 ML VIAL IV SCH (09:00)
[2018-10-15] MEDS ORDERED: Dextroamphetamine/Amphetamine [Adderall] 30 MG PO SCH (09:00)
[2018-10-15] MEDS ORDERED: ATENOLOL 50 MG TAB PO SCH (09:00)
[2018-10-15] MEDS ORDERED: ASPIRIN 325 MG TAB PO SCH (09:00)
[2018-10-15] MEDS: clonazePAM 0.5 MG TAB PO PRN (09:36)
[2018-10-15] MEDS: HEPARIN SODIUM,PORCINE 5,000 UNIT/ML 1 ML VIAL SQ SCH (09:37)
[2018-10-15] MEDS ORDERED: MAG HYDROX/AL HYDROX/SIMETH 30 ML CUP PO PRN (11:15)
--- NOTE | 2018-10-15 11:25 | P.DS ---
Providers Date of admission: 10/14/18 16:19 Expected date of discharge: 10/15/18 Attending physician: Olaf Lay MD Consults: 10/14/18 16:20 Consult Physician Routine Consulting Provider: Dillon Milner Consult Reason/Comments: CP Do you want consulting provider notified?: Yes Primary care physician: Estelle [facility] Course: 48-year-old female with past medical history anxiety, hypertension, infectious colitis for which she sees Dr. Ramakrishna castillo [facility], chronic back pain presents the ED for chest pain. 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 She reports that she was laying down when this pain occurred around noon. Pain is constant, located right in the middle. Pain is 10 out of 10 in severity. Pain is sharp and stabbing in nature. Patient reports no alleviating factors except for IV pain medications that she has received while here. Patient reports that the pain is worse with deep inspiration and with movement. She denies any headache, lower extremity edema, fever, chills, cough, shortness of breath, changes in urination or bowel habits. She does report mild nausea with the pain along with some shortness of breath. Of note, patient reports suffering a mild myocardial infarction 2 years ago. She reports that the pain is similar to that when she suffered a heart attack. In the ED, CBC was unremarkable. Coagulation panel was negative. CMP was negative except for calcium of 10.5. Troponin was less than 0.0123, EKG showing sinus tachycardia. Chest CT was negative for PE. Chest x-ray was negative. cardiology was consulted and the case was discussed with Dr. Roy. He suggested that ACS was ruled out and that the patient should follow-up in the outpatient setting for stress test. Patient was seen and examined prior to discharge. No acute events overnight. She appears very calm as I walk into the room and is suddenly in distress. She complains of chest pain radiating into her epigastric area. Patient reports that the pain is only relieved with Dilaudid IV. She denies nausea or vomiting. No fever or chills. No shortness of breath or palpitations. General: [non toxic], [no distress], [appears at stated age] Derm: [warm], [dry] Head: [atraumatic], [normocephalic], [symmetric] Eyes: [EOMI], [no lid lag], [anicteric sclera] Mouth: [no lip lesion], [mucus membranes moist] Cardiovascular: [S1S2 reg], [tachycardia], [positive DP pulse bilateral] Lungs: [CTA bilateral], [no rhonchi, no rales] , [no accessory muscle use] Abdominal: [soft], [ nontender to palpation], [no guarding], [no appreciable organomegaly] Ext: [no gross muscle atrophy], [no edema], [no contractures] Neuro: [ CN II-XI grossly intact], [no focal neuro deficits] Psych: [Alert], [oriented], [appropriate affect] Assessment and Plan 1. Chest pain 2. Tachycardia 3. Hypertension 4. Anxiety 5. ADHD 1. Does not appear like acute coronary syndrome but has concerns due to previous [place]. Chest x-ray is negative for acute process. CTA chest is negative for PE. Troponin is less than 0.012 x3, EKG showing sinus tachycardia. Pain management with Tylenol, Dilaudid as needed (allergy to Morphine). Continue aspirin 325 mg by mouth daily. Restart atenolol. Telemetry monitoring. Cardiology consulted, recommends outpatient follow-up for stress. Will check influenza. Trial of Maalox. 2. Sinus tachycardia and ED in the 110s. PE ruled out. Adequate pain management. Ativan as needed for anxiety. Telemetry monitoring. heart rate is 72 on telemetry currently. 3. BP 123/87. Continue atenolol. Monitor vitals, adjust medications as necessary. 4. Discontinue Ativan IV and restart clonazepam 1 tab by mouth twice a day as needed for anxiety. 5. Continue Adderall. Patient is admitted for chest pain, ACS ruled out. Cardiology consulted, cleared for discharge, to follow-up for outpatient stress. Patient would like to name her tabby Brannon decision-maker in the case that she can't make decisions for herself. She would like to remain full code. Patient requesting IV pain medication throughout the entire H&P, possible concern for drug-seeking behavior. Pertinent Studies: chest x-ray, as chest CTA Patient Condition at Discharge: Stable Plan - Discharge Summary Discharge Rx Participant: Yes New Discharge Prescriptions: Continue Dextroamphetamine/Amphetamine [Adderall] 30 mg PO QAM Atenolol [Tenormin] 50 mg PO DAILY clonazePAM [KlonoPIN] 1 tab PO BID PRN PRN Reason: Anxiety oxyCODONE-APAP 10-325MG [Percocet 10-325 mg] 1 tab PO Q6HR PRN 30 Days #120 tab PRN Reason: Breakthrough Pain Doxepin HCl [SINEquan] 100 mg PO HS Aspirin EC [Ecotrin Low Dose] 81 mg PO DAILY Discharge Medication List Dextroamphetamine/Amphetamine [Adderall] 30 mg PO QAM 07/30/17 [History] Atenolol [Tenormin] 50 mg PO DAILY 07/29/18 [History] clonazePAM [KlonoPIN] 1 tab PO BID PRN 08/09/18 [History] oxyCODONE-APAP 10-325MG [Percocet 10-325 mg] 1 tab PO Q6HR PRN 30 Days #120 tab 08/09/18 [Rx] Aspirin EC [Ecotrin Low Dose] 81 mg PO DAILY 10/14/18 [History] Doxepin HCl [SINEquan] 100 mg PO HS 10/14/18 [History] Follow up Appointment(s)/Referral(s): Estelle Butterfield DO [Primary Care Provider] - 1-2 days Khanh Roy MD [STAFF PHYSICIAN] - 1 Week Activity/Diet/Wound Care/Special Instructions: Diet: Heart healthy Follow-up with PCP within 1-2 days of discharge. Follow-up with cardiology within 1 week of discharge. Take all medications as advised. Come back to the ED or call 911 for worsening chest pain, shortness of breath or palpitations. Discharge Disposition: HOME SELF-CARE
[2018-10-15 11:50] VITALS: BP 137/95; PULSE 75; RESP 20; TEMP 98.5
--- NOTE | 2018-10-15 17:29 | CONS ---
CONSULTATION Isabell Winston is a 48-year-old lady who has been admitted to the hospital with an episode of chest discomfort. Apparently, this lady has been hospitalized on multiple occasions and in August of last year she had a dobutamine echo which was unremarkable. She came into the hospital with epigastric and chest pain called it as a 10/10 and then required morphine for improvement. Her troponins are normal. She is resting comfortably. She describes the pain as being sharp. The quality of pain is quite atypical, not suggestive of angina. She has ambulated without symptoms. She is resting comfortably at the time of my evaluation, and she wants to know if I would be willing to give her some pain medications because she feels the pain is coming from her heart. The patient has the indicated to me that she was hospitalized before and she has had a previous myocardial infarction. She claims that she had an NV in 2017 and another NV in 2018. I had a long discussion with her. I reviewed the records. There is no evidence of any documented NV and she had a negative dobutamine echo with vigorous contractility in August of 2017. I explained to the patient that she should not share misinformation with emergency room and other EMT type people because she never had a heart attack before. The patient is status post appendectomy, back surgery and cholecystectomy as well. MEDICATIONS: At home include atenolol 50 mg daily. She takes aspirin, clonazepam, Sinequan, Adderall, oxycodone. ALLERGIES: SHE IS ALLERGIC TO KETORALAC AND TRAMADOL. PAST MEDICAL HISTORY: Is also remarkable for hypertension and atypical chest pain with a negative stress test. PHYSICAL EXAMINATION: Blood pressure is 130/70, pulse rate is 70 per minute, regular. HEENT unremarkable. Fundus was not examined by me. Neck is supple. No JVD. I do not hear a carotid bruit. There is no thyromegaly. Heart exam reveals S1, S2 heard normally. No rub, murmur or gallop. Lungs are clear. Abdomen is soft, nontender. Lower extremities reveal palpable pulses. No edema. Central nervous system is normal. EKG revealed a sinus mechanism with a precordial T-wave abnormality which is very similar to the previous studies and the inferior leads reveal nondiagnostic Q-waves. LABORATORY DATA: Revealed unremarkable troponins and normal BNP. She has tested negative for influenza as well. IMPRESSION: 1. Atypical chest pain with abnormal but unchanged EKG. 2. History of hypertension. 3. Previous negative dobutamine stress test in August of 2017. 4. RECOMMENDATIONS: I explained to the patient that her pain is atypical. Enzymes are negative. No further workup is necessary at this time and she can be discharged today and I will be happy to see her in the office and consider outpatient stress testing if her chest pain recurs. Advised to resume the same medications. Thank you very much for the consult. FELIPE / IJN: [id number] /
== END 2018-10-15 12:59 | disposition home or self-care (01) ==
LOC: EC 13:59 → 3SCARD 16:19
PROVIDERS: ADMIT Family Medicine; ATTEND Family Medicine
DX: R07.2 Precordial pain (principal); R10.13 Epigastric pain; R00.0 Tachycardia, unspecified; R06.02 Shortness of breath; R06.00 Dyspnea, unspecified; R11.0 Nausea; F41.9 Anxiety disorder, unspecified; F90.9 Attention-deficit hyperactivity disorder, unspecified type; I10 Essential (primary) hypertension; A09 Infectious gastroenteritis and colitis, unspecified; R94.31 Abnormal electrocardiogram [ECG] [EKG]; G89.29 Other chronic pain; M54.9 Dorsalgia, unspecified; M79.18 Myalgia, other site; I25.2 Old myocardial infarction; J44.9 Chronic obstructive pulmonary disease, unspecified; K21.9 Gastro-esophageal reflux disease without esophagitis; M51.36 Other intervertebral disc degeneration, lumbar region; F17.200 Nicotine dependence, unspecified, uncomplicated; Z87.01 Personal history of pneumonia (recurrent); Z86.19 Personal history of other infectious and parasitic diseases; Z87.442 Personal history of urinary calculi; Z86.14 Personal history of Methicillin resistant Staphylococcus aureus infection; Z90.49 Acquired absence of other specified parts of digestive tract; Z98.1 Arthrodesis status; Z80.1 Family history of malignant neoplasm of trachea, bronchus and lung; Z82.3 Family history of stroke; Z82.49 Family history of ischemic heart disease and other diseases of the circulatory system; Z79.899 Other long term (current) drug therapy; Z79.82 Long term (current) use of aspirin; Z88.8 Allergy status to other drugs, medicaments and biological substances; Z88.5 Allergy status to narcotic agent; Z91.013 Allergy to seafood
CPT/HCPCS: 96376 ×3; 96361 ×2; 96372 ×2; 96374; 96375; 99285; 36415; 83880; 80053; 80048; 83690; 83735; 84484 ×2; 85025 ×2; 85610; 85730; 87502; 71046; 71275; G0378 ×2; J2060; J1644 ×2; J1170 ×3; C9113 ×2; Q9967

== ENCOUNTER → 2018-11-23 | Outpatient (CLI) | payer OTHER ==
[2018-11-23 13:10] VITALS: BP 139/82; PULSE 116; RESP 20
--- NOTE | 2018-11-24 06:49 | P.PN ---
Subjective Progress Note Date: 11/23/18 This is follow-up visit for this patient with a history of severe and chronic low back pain secondary to lumbar degenerative disc disease, lumbar spondylosis with facet arthropathy, We have done an interventional pain procedure radiofrequency ablation of the medial branch lumbar area and lumbar epidural steroid injections, she did fairly well after the radiofrequency until 3 days ago , she started complaining of severe low back pain with radiation to the right lower extremity, the intensity of the pain interfering with her quality of life, The patient currently on percocet 10 /325 every 6 hours, and Neurontin 400 mg 3 times a day, the medications is not helping to improve her pain Patient denies any side effect of the medication , patient denies any excessive drowsiness or sleepiness, patient denies any suicidal ideation, Patient reported that the current medication is helping to control the pain and improve the activity of daily livings, Patient denies any motor or sensory deficit, denies any change in the bowel movement or urination, patient denies any fever or night sweats. Patient here today for medication refill Physical Examinations : 1-Constitutiona : Cooperative , not in acute distress . 2-HEENT : nech ; supple , no Lymphadenopathy , normal thyroid size . eyes : no ptosis , no icterus, no photophobia . ENT : normal of hearing , normal oropharynx , no Thrush . 3- Respiratory : Chest clear to auscultations Bilaterally , no wheezing , no Rhonchi . 4- Cardiovascular : regular rate and rhythem , S1 , S2 , no S3 , no S4. 5- Gastrointestinal : abdomen soft no tenderness , bowel sounds , no organomegally . 6- Genitourinary : Defferred . 7- neurologic : Cranial nerve II to XII intact , no focal neurological deffecit . 8-psychatric : alert , oriented X 3 , appropriate affect , intact judgment and insight . 9-Lymphatic : no Lymphadenopathy . 10- musculoskeltal : Lumber spine = normal moter stegnth lower extremities ,thigh and legs .5/5 on the left , 4/5 on the right side deep tendon reflexes : normal Knee Jerk , normal ankle Jerk . lumber facet Loading Test negative bilaterally strait leg raising test positive bilaterally Fabere test positive on the right side mild tenderness over the Sacroiliac joint on the Right Assessment and plan= chronic low back pain secondary to lumbar degenerative disc disease, and lumbar facet arthropathy chronic and current use of high-risk medication (opioids) Patient denies any side effects of the current pain medication and the current treatment/medication helping the patient to do activity of daily living , Diagnoses, prognosis, treatment options, including but not limited to physi chio therapy, medication management, interventional therapies, and surgery, were discussed with the patient All the questions answered The narcotic consent was signed and patient agreed and understood the side effects and complications of opioid treatment. Patient signed the narcotic agreement, and was orally counseled, not to overuse, not to abuse, not to Divert , not tp sell pain medication, and to take it as prescribed only, Patient was counseled not to drive or operate heavy equipment while using narcotic medication, and advised not to use alcohol or any Illicit drugs while using the narcotis, understanding that lack of compliance with any of the above instructions, will likely to cause discharge from, the pain service, not to renew his narcotic prescriptions Medication managements= she reported that she is not getting any relief from the Percocet, I would change Percocet to [place] 10/325 every 6 hours dispense 120, continue Neurontin 400 mg 3 times a day, dispense 90 with 1 refill, the patient could benefit from Mobic 7.5 mg twice a day dispense 60 with one refill Patient will follow up in the pain clinic in 2 months. MAPS reviewed, and it was okay, next visit we will do urine drug screen, PQRS Measure Charge Sheet Measure #130: Documentation of Current Meds in Medical Chart: Patient's medications documented in chart Measure #226: Tobacco Use: Screen & Cessation Intervention: Pt screened for tobacco use AND intervention given Measure #111: Pneumonia Vaccination: Pneumococcal vaccine NOT administered or previously given Measure #47: Advance Care Plan: Advance care planning discussed & documented, pt chose/unable to give Measure #412: Opioid Treatment Agreement: Documented signed opioid trtmnt agreemnt min once during opioid trtmnt Measure #408: Opioid Therapy Follow-up Evaluation: Patient had f/u eval minimum every 3 months during opioid therapy Measure #317: Preventitive Care & Scrn High Bld Press & F/U: Normal blood pressure, f/u not required Measure #128: Body Mass Index (BMI) Screening & Follow-up: BMI documented ABOVE normal parameters - f/u documented Measure #131: Pain Assessment & Follow-up: Pain positive & plan documented, Follow-up scheduled Measure #431: Unhealthy Alcohol Use Preventative Care & Scrn: Patient not identified as an unhealthy alcohol user PQRS Narrative: - Controlled Substance Measures Is patient prescribed a controlled substance at discharge?: Yes When asked, does pt state using other controlled substances?: No If prescribed controlled substance>3 days was MAPS reviewed?: Yes If Rx opioid, was Start Talking consent form obtained?: Yes If opioid is for acute pain is fill amount 7 days or less?: No Was information provided regarding opioid addiction?: Yes Objective Objective - Vital Signs Vital signs: Vital Signs Temp Pulse 116 H 11/23/18 12:50 Resp 20 11/23/18 12:50 BP 139/82 11/23/18 12:50 Pulse Ox 95 11/23/18 12:50 Intake & Output 11/23/18 11/23/18 11/24/18 06:59 18:59 06:59 Weight 68.946 kg
== END ==
LOC: PNWHC3 12:21
PROVIDERS: ATTEND Specialist
DX: G89.29 Other chronic pain (principal); M51.36 Other intervertebral disc degeneration, lumbar region; M46.96 Unspecified inflammatory spondylopathy, lumbar region; Z79.891 Long term (current) use of opiate analgesic; Z79.899 Other long term (current) drug therapy
CPT/HCPCS: 99211

== ENCOUNTER 2018-12-09 15:55 | Emergency (ER) | payer OTHER ==
[2018-12-09] MEDS ORDERED: SODIUM CHLORIDE 0.9% 1,000 ML IV ONE (16:17)
[2018-12-09] MEDS ORDERED: diphenhydrAMINE 50 MG/ML 1 ML VIAL IVP STA (16:17)
[2018-12-09] MEDS ORDERED: METOCLOPRAMIDE 5 MG/ML 2 ML VIAL IVP STA (16:17)
[2018-12-09] MEDS ORDERED: IPRATROPIUM-ALBUTEROL 3 ML NEB INHALATION STA (16:17)
[2018-12-09] MEDS ORDERED: ACETAMINOPHEN TAB 500 MG TAB PO STA (16:19)
[2018-12-09] MEDS ORDERED: methylPREDNISolone SOD SUCCI 125 MG/2 ML VIAL IV STA (16:19)
--- NOTE | 2018-12-09 16:25 | ED ---
General Adult HPI - General Chief complaint: Shortness of Breath Stated complaint: EUN, headache Time Seen by Provider: 12/09/18 16:09 Source: patient Mode of arrival: ambulatory Limitations: no limitations - History of Present Illness Initial comments: Patient is a 48-year-old female with a history of COPD who presents with a chief complaint of cough and shortness of breath for one week. She comes the emergency department today because she developed a headache. Patient states that the headache developed about 2 hours ago. She states came on gradually as and the base of her head and over the top of her head. She admits to subjective fevers. She denies any chest pain. - Related Data Home Medications Medication Instructions Recorded Confirmed Dextroamphetamine/Amphetamine 30 mg PO QAM 07/30/17 12/09/18 [Adderall] Atenolol [Tenormin] 50 mg PO DAILY 07/29/18 12/09/18 Gabapentin [Neurontin] 400 mg PO TID 11/23/18 12/09/18 HYDROcodone/APAP 10-325MG [[place] 1 tab PO Q6HR PRN 11/23/18 12/09/18 10-325] Previous Rx's Medication Instructions Recorded clonazePAM [KlonoPIN] 0.5 mg PO BID PRN #6 tab 10/15/18 Doxycycline Hyclate 100 mg PO BID 5 Days #10 tab 12/09/18 predniSONE [Deltasone] 20 mg PO DAILY #12 tablet 12/09/18 Allergies Allergy/AdvReac Type Severity Reaction Status Date / Time ketorolac [From Toradol] Allergy Anaphylaxis Verified 12/09/18 16:52 shellfish derived Allergy Anaphylaxis Verified 12/09/18 16:52 tramadol [From Ultram] Allergy Rash/Hives Verified 12/09/18 16:52 ibuprofen AdvReac Nausea Verified 12/09/18 16:52 morphine AdvReac Nausea Verified 12/09/18 16:52 Review of Systems ROS Statement: Those systems with pertinent positive or pertinent negative responses have been documented in the HPI. ROS Other: All systems not noted in ROS Statement are negative. Constitutional: Reports: fever, chills Respiratory: Reports: cough, dyspnea Past Medical History Past Medical History: COPD, GERD/Reflux, Hypertension, Myocardial Infarction ([place]), Pneumonia, Skin Disorder Additional Past Medical History / Comment(s): chronic back pain, lumbar degenerative disc disease, insomnia, hx shingles, hiatal hernia, kidney stones. 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, migraines,; obstetrical history is significant for 1 miscarriage and 1 term that required a section Last Myocardial Infarction Date:: 08/27/2016 History of Any Multi-Drug Resistant Organisms: MRSA Date of last positivie culture/infection: 09/22/09 MDRO Source:: neck Past Surgical History: Appendectomy, Back Surgery, Section, Cholecystectomy Additional Past Surgical History / Comment(s): Cervical spine fusion with insertion of a metal plate, EGD, colonoscopy, lumbar rhizotomy and ra diofrequency ablation Past Anesthesia/Blood Transfusion Reactions: No Reported Reaction Additional Past Anesthesia/Blood Transfusion Reaction / Comment(s): CLAUSTROPHOBIA Past Psychological History: ADD/ADHD, Anxiety Smoking Status: Former smoker Past Alcohol Use History: Rare Past Drug Use History: None Reported - Past Family History Father Family Medical History: Cancer Additional Family Medical History / Comment(s): Father at age 48 from lung cancer. Mother Family Medical History: Congestive Heart Failure (CHF), CVA/TIA Additional Family Medical History / Comment(s): Mother is alive at age 68. She has suffered from a CVA and has chronic back problems. Patient has 2 brothers and 4 sisters with no major medical problems. General Exam Limitations: no limitations General appearance: alert, anxious Head exam: Present: atraumatic, normocephalic Eye exam: Present: normal appearance, PERRL ENT exam: Present: normal exam Neck exam: Present: normal inspection Respiratory exam: Present: wheezes, rhonchi, accessory muscle use Cardiovascular Exam: Present: normal rhythm, tachycardia GI/Abdominal exam: Present: soft. Absent: distended, tenderness Rectal exam: Present: deferred Extremities exam: Present: normal inspection Back exam: Present: normal inspection Neurological exam: Present: alert, oriented X3 Psychiatric exam: Present: normal affect, normal mood Skin exam: Present: warm, dry, intact Course Vital Signs 12/09/18 12/09/18 12/09/18 15:58 16:39 16:54 Temperature 98.2 F Pulse Rate 110 H 99 105 H Respiratory 20 Rate Blood Pressure 156/96 O2 Sat by Pulse 99 Oximetry 12/09/18 12/09/18 12/09/18 17:05 17:20 19:00 Temperature Pulse Rate 106 H 102 H 109 H Respiratory 18 20 Rate Blood Pressure 164/109 164/109 O2 Sat by Pulse 98 98 Oximetry 12/09/18 12/09/18 12/09/18 19:29 20:01 20:03 Temperature 98.6 F 98.8 F Pulse Rate 107 H 102 H Respiratory 22 20 Rate Blood Pressure 135/94 126/94 O2 Sat by Pulse 97 95 98 Oximetry Medical Decision Making - Medical Decision Making Patient presents with a chief complaint of cough and headache. On initial evaluation, vital signs show tachycardia at 110 however vital signs are otherwise stable. Patient is breathing room air 99%. She is somewhat distressed and has accessory muscle use. Headache is consistent with tension- type headache, visual complaints likely secondary to COPD versus bronchitis versus pneumonia and less likely pulmonary embolism. Patient will be evaluated with basic labs including chest x-ray, cardiac enzymes, and d-dimer. She was given breathing treatments, and a headache cocktail. 4:38 PM EKG performed at 1630 shows normal sinus rhythm with a rate of 100 bpm, sinus within normal limits. EKG automatic read states acute STEMI, however disagree. I did not see any acute signs of ischemia, do not see any STEMI criteria present, there is artifact which somewhat blurs the baseline however patient will have a repeat EKG, patient given aspirin. Currently patient is not having any chest pain. When EKG is compared to previous study performed on 10/14/2018, waveforms are similar. Do not see any acute changes present today. 5:11 PM Repeat EKG shows sinus tachycardia with a rate of 107 bpm, sinus otherwise normal limits. No acute signs of ischemia. 8:29 PM Lab evaluation of this patient is unremarkable, d-dimer is negative at 0.45. Chest x-ray shows no acute process. On reevaluation, patient's lung sounds are improved, she is reading comfortably. A mandatory pulse ox is between 9598%. At this time, patient stable for discharge. She was instructed to follow up with primary care 1-2 days, return to the ED if symptoms worsen or change. Patient will be treated for bronchitis with prednisone and doxycycline. - Lab Data Result diagrams: 12/09/18 17:10 12/09/18 17:10 Lab Results 12/09/18 12/09/18 12/09/18 Range/Units 17:10 17:10 17:10 WBC 13.0 H (3.8-10.6) k/uL RBC 4.91 (3.80-5.40) m/uL Hgb 14.6 (11.4-16.0) gm/dL Hct 46.3 H (34.0-46.0) % MCV 94.2 (80.0-100.0) fL MCH 29.8 (25.0-35.0) pg MCHC 31.6 (31.0-37.0) g/dL RDW 13.7 (11.5-15.5) % Plt Count 348 (150-450) k/uL Neutrophils % 89 % Lymphocytes % 8 % Monocytes % 2 % Eosinophils % 1 % Basophils % 0 % Neutrophils # 11.6 H (1.3-7.7) k/uL Lymphocytes # 1.0 (1.0-4.8) k/uL Monocytes # 0.2 (0-1.0) k/uL Eosinophils # 0.1 (0-0.7) k/uL Basophils # 0.0 (0-0.2) k/uL D-Dimer 0.35 (<0.60) mg/L FEU Sodium 143 (137-145) mmol/L Potassium 4.5 (3.5-5.1) mmol/L Chloride 108 H (98-107) mmol/L Carbon Dioxide 26 (22-30) mmol/L Anion Gap 9 mmol/L BUN 8 (7-17) mg/dL Creatinine 0.63 (0.52-1.04) mg/dL Est GFR (CKD-EPI)AfAm >90 (>60 ml/min/1.73 sqM) Est GFR (CKD-EPI)NonAf >90 (>60 ml/min/1.73 sqM) Glucose 121 H (74-99) mg/dL Calcium 10.2 (8.4-10.2) mg/dL Troponin I (0.000-0.034) ng/mL NT-Pro-B Natriuret Pep pg/mL 12/09/18 12/09/18 Range/Units 17:10 17:10 WBC (3.8-10.6) k/uL RBC (3.80-5.40) m/uL Hgb (11.4-16.0) gm/dL Hct (34.0-46.0) % MCV (80.0-100.0) fL MCH (25.0-35.0) pg MCHC (31.0-37.0) g/dL RDW (11.5-15.5) % Plt Count (150-450) k/uL Neutrophils % % Lymphocytes % % Monocytes % % Eosinophils % % Basophils % % Neutrophils # (1.3-7.7) k/uL Lymphocytes # (1.0-4.8) k/uL Monocytes # (0-1.0) k/uL Eosinophils # (0-0.7) k/uL Basophils # (0-0.2) k/uL D-Dimer (<0.60) mg/L FEU Sodium (137-145) mmol/L Potassium (3.5-5.1) mmol/L Chloride (98-107) mmol/L Carbon Dioxide (22-30) mmol/L Anion Gap mmol/L BUN (7-17) mg/dL Creatinine (0.52-1.04) mg/dL Est GFR (CKD-EPI)AfAm (>60 ml/min/1.73 sqM) Est GFR (CKD-EPI)NonAf (>60 ml/min/1.73 sqM) Glucose (74-99) mg/dL Calcium (8.4-10.2) mg/dL Troponin I <0.012 (0.000-0.034) ng/mL NT-Pro-B Natriuret Pep 63 pg/mL Disposition Clinical Impression: Bronchitis Disposition: HOME SELF-CARE Condition: Good Instructions (If sedation given, give patient instructions): Acute Bronchitis (ED) Prescriptions: predniSONE [Deltasone] 20 mg PO DAILY #12 tablet Doxycycline Hyclate 100 mg PO BID 5 Days #10 tab Is patient prescribed a controlled substance at d/c from ED?: No Referrals: Estelle Butterfield DO [Primary Care Provider] - 1-2 days
[2018-12-09] MEDS ORDERED: ASPIRIN 81 MG PO STA (16:38)
[2018-12-09 17:47] LABS: Basophils % (A) 0 %; Eosinophils # (A) 0.1 k/uL (0-0.7); Eosinophils % (A) 1 %; HCT 46.3 % (34.0-46.0); HGB 14.6 gm/dL (11.4-16.0); Lymphocytes % (A) 8 %; MCH 29.8 pg (25.0-35.0); MCHC 31.6 g/dL (31.0-37.0); MCV 94.2 fL (80.0-100.0); Mean Platelet Volume 6.6; Monocytes # (A) 0.2 k/uL (0-1.0); Monocytes % (A) 2 %; Neutrophils # (A) 11.6 k/uL (1.3-7.7); Neutrophils % (A) 89 %; Platelet Count 348 k/uL (150-450); RBC 4.91 m/uL (3.80-5.40); RDW 13.7 % (11.5-15.5)
[2018-12-09 17:57] LABS: Anion Gap 9 mmol/L; Blood Urea Nitrogen 8 mg/dL (7-17); Calcium 10.2 mg/dL (8.4-10.2); Carbon Dioxide 26 mmol/L (22-30); Chloride 108 mmol/L (98-107); Glucose 121 mg/dL (74-99); Potassium 4.5 mmol/L (3.5-5.1); Sodium 143 mmol/L (137-145)
--- NOTE | 2018-12-09 18:05 | XR ---
EXAMINATION TYPE: XR chest 2V DATE OF EXAM: 12/09/2018 COMPARISON: NONE HISTORY: Chest pain TECHNIQUE: Frontal and lateral views of the chest are obtained. FINDINGS: Heart and mediastinum are normal. Lungs are clear. Diaphragm is normal. Bony thorax is int act. There are chest leads. IMPRESSION: Normal chest. No change.
[2018-12-09] MEDS ORDERED: HYDROcodone/APAP 10-325MG 1 EACH TAB PO ONE (19:50)
[2018-12-09 20:02] VITALS: PULSE 102; RESP 20; TEMP 98.8
[2018-12-09] MEDS ORDERED: DOXYCYCLINE 100 MG CAP PO STA (20:11)
[2018-12-09 20:43] VITALS: BP 146/92
== END 2018-12-09 20:36 | disposition home or self-care (01) ==
LOC: EC 15:55
DX: J40 Bronchitis, not specified as acute or chronic (principal); I10 Essential (primary) hypertension; I25.2 Old myocardial infarction; F90.9 Attention-deficit hyperactivity disorder, unspecified type; F41.9 Anxiety disorder, unspecified; Z86.14 Personal history of Methicillin resistant Staphylococcus aureus infection; Z79.899 Other long term (current) drug therapy; Z88.5 Allergy status to narcotic agent; Z88.6 Allergy status to analgesic agent; Z91.013 Allergy to seafood
CPT/HCPCS: 36415; 94640; 93005; 85379; 83880; 80048; 84484; 85025; 71046; 99285; 96374; 96375 ×2; 96361 ×2; J1200; J2765; J2930

== ENCOUNTER → 2019-01-19 | Outpatient (CLI) | payer OTHER ==
[2019-01-19 11:36] VITALS: BP 131/82; PULSE 110; RESP 18
--- NOTE | 2019-01-19 12:37 | P.PAINPG ---
Subjective Progress Note Date: 01/19/19 This is follow-up visit for this 48 years old female with a history of severe and chronic low back pain secondary to lumbar degenerative disc disease, lumbar spondylosis with facet arthropathy, currently she is complaining of severe low back pain with radiation to the right lower extremity, and she has some weakness in her right lower extremity the intensity of the pain interfering with her quality of life, she already saw Dr. Darling a spine surgeon and he is in the process of doing surgical interventions in the lumbar spine The patient currently on percocet 10 /325 every 6 hours, and Neurontin 400 mg 3 times a day, the medications is not helping to improve her pain Patient denies any side effect of the medication , patient denies any excessive drowsiness or sleepiness, patient denies any suicidal ideation, Patient reported that the current medication is helping to control the pain and improve the activity of daily livings, and the patient wished to decrease her pain medication Patient denies any motor or sensory deficit, denies any change in the bowel movement or urination, patient denies any fever or night sweats. Patient here today for medication refill Physical Examinations : 1-Constitutiona : Cooperative , not in acute distress . 2-HEENT : nech ; supple , no Lymphadenopathy , normal thyroid size . eyes : no ptosis , no icterus, no photophobia . ENT : normal of hearing , normal oropharynx , no Thrush . 3- Respiratory : Chest clear to auscultations Bilaterally , no wheezing , no Rhonchi . 4- Cardiovascular : regular rate and rhythem , S1 , S2 , no S3 , no S4. 5- Gastrointestinal : abdomen soft no tenderness , bowel sounds , no organomegally . 6- Genitourinary : Defferred . 7- neurologic : Cranial nerve II to XII intact , no focal neurological deffecit . 8-psychatric : alert , oriented X 3 , appropriate affect , intact judgment and insight . 9-Lymphatic : no Lymphadenopathy . 10- musculoskeltal : Lumber spine = normal moter stegnth lower extremities ,thigh and legs .5/5 on the left , 3-4/5 on the right side deep tendon reflexes : normal Knee Jerk , normal ankle Jerk . lumber facet Loading Test negative bilaterally strait leg raising test positive bilaterally Fabere test positive on the right side mild tenderness over the Sacroiliac joint on the Right Assessment and plan= chronic low back pain secondary to lumbar degenerative disc disease, and lumbar facet arthropathy chronic and current use of high-risk medication (opioids) Patient denies any side effects of the current pain medication and the current treatment/medication helping the patient to do activity of daily living , Diagnoses, prognosis, treatment options, including but not limited to physical therapy, medication management, interventional therapies, and surgery, were discussed with the patient All the questions answered The narcotic consent was signed and patient agreed and understood the side effects and complications of opioid treatment. Patient signed the narcotic agreement, and was orally counseled, not to overuse, not to abuse, not to Divert , not tp sell pain medication, and to take it as prescribed only, Patient was counseled not to drive or operate heavy equipment while using narcotic medication, and advised not to use alcohol or any Illicit drugs while using the narcotis, understanding that lack of compliance with any of the above instructions, will likely to cause discharge from, the pain service, not to renew his narcotic prescriptions Medication managements= I will start patient on [place] 7.5/325 every 6 hours dispense 120, continue Neurontin 400 mg 3 times a day, dispense 90 with 1 refill Patient will follow up in pain clinic in 2 months. MAPS reviewed, and it was okay, next visit we will do urine drug screen, Objective - Vital Signs Vital signs: Vital Signs Temp Pulse 110 H 01/19/19 11:29 Resp 18 01/19/19 11:29 BP 131/82 01/19/19 11:29 Pulse Ox 98 01/19/19 11:29 Intake & Output 01/18/19 01/19/19 01/19/19 18:59 06:59 18:59 Weight 67.132 kg PQRS Measure Charge Sheet Measure #130: Documentation of Current Meds in Medical Chart: Patient's medications documented in chart Measure #226: Tobacco Use: Screen & Cessation Intervention: Pt screened for tobacco use AND intervention given Measure #111: Pneumonia Vaccination: Pneumococcal vaccine NOT administered or previously given Measure #47: Advance Care Plan: Advance care planning discussed & documented, pt chose/unable to give Measure #412: Opioid Treatment Agreement: Documented signed opioid trtmnt agreemnt min once during opioid trtmnt Measure #408: Opioid Therapy Follow-up Evaluation: Patient had f/u eval minimum every 3 months during opioid therapy Measure #317: Preventitive Care & Scrn High Bld Press & F/U: Normal blood pressure, f/u not required Measure #128: Body Mass Index (BMI) Screening & Follow-up: BMI documented ABOVE normal parameters - f/u documented Measure #131: Pain Assessment & Follow-up: Pain positive & plan documented, Follow-up scheduled Measure #431: Unhealthy Alcohol Use Preventative Care & Scrn: Patient not identified as an unhealthy alcohol user PQRS Narrative: Smoking Status Former smoker Narcotic Agreement Date Signed 09/08/16 Blood Pressure 131/82 Pain Intensity [Right Lower 6 Back] Scale Used Numeric (1 - 10) Hx Alcohol Use (MH) Yes: rare Home Medications: Ambulatory Orders Dextroamphetamine/Amphetamine [Adderall] 30 mg PO QAM 07/30/17 Atenolol [Tenormin] 50 mg PO DAILY 07/29/18 clonazePAM [KlonoPIN] 0.5 mg PO BID PRN #6 tab 10/15/18 Gabapentin [Neurontin] 400 mg PO TID 11/23/18 HYDROcodone/APAP 10-325MG [[place] 10-325] 1 tab PO Q6HR PRN 11/23/18 Doxycycline Hyclate 100 mg PO BID 5 Days #10 tab 12/09/18 Controlled Substance Measures - Controlled Substance Measures Is patient prescribed a controlled substance at discharge?: Yes When asked, does pt state using other controlled substances?: No If prescribed controlled substance>3 days was MAPS reviewed?: Yes If Rx opioid, was Start Talking consent form obtained?: Yes If opioid is for acute pain is fill amount 7 days or less?: No Was information provided regarding opioid addiction?: Yes
== END ==
LOC: PNWHC3 11:12
PROVIDERS: ATTEND Specialist
DX: G89.29 Other chronic pain (principal); M51.36 Other intervertebral disc degeneration, lumbar region; M46.96 Unspecified inflammatory spondylopathy, lumbar region; Z79.899 Other long term (current) drug therapy; Z79.891 Long term (current) use of opiate analgesic; Z87.891 Personal history of nicotine dependence
CPT/HCPCS: 99211

== ENCOUNTER 2019-01-29 14:56 | Emergency (ER) | payer OTHER ==
[2019-01-29] MEDS ORDERED: DOXYCYCLINE 100 MG CAP PO STA (15:05)
[2019-01-29 15:07] VITALS: BP 118/66; PULSE 94; RESP 18; TEMP 98.1
--- NOTE | 2019-01-29 15:34 | ED ---
Skin/Abscess/FB HPI - General Chief complaint: Skin/Abscess/Foreign Body Stated complaint: Tick bite Time Seen by Provider: 01/29/19 14:58 Source: patient, family Mode of arrival: ambulatory Limitations: no limitations - History of Present Illness Initial comments: 48yo female presenting for tick bite she states she'll take that that her about to 3 weeks ago. Patient states she no surrounding redness she was concerned for Lyme disease. Denies fever, neck stiffness, vomiting, joint pain. Remaining review of system negative. Upon arrival patient is afebrile appearing well signs of acute distress. - Related Data Home Medications Medication Instructions Recorded Confirmed Dextroamphetamine/Amphetamine 30 mg PO QAM 07/30/17 01/19/19 [Adderall] Atenolol [Tenormin] 50 mg PO DAILY 07/29/18 01/19/19 Gabapentin [Neurontin] 400 mg PO TID 11/23/18 01/19/19 HYDROcodone/APAP 10-325MG [[place] 1 tab PO Q6HR PRN 11/23/18 01/19/19 10-325] Meloxicam [Mobic] 7.5 mg PO BID 01/23/19 01/23/19 Previous Rx's Medication Instructions Recorded clonazePAM [KlonoPIN] 0.5 mg PO BID PRN #6 tab 10/15/18 Doxycycline Hyclate 100 mg PO BID 5 Days #10 tab 12/09/18 Doxycycline [Vibramycin] 100 mg PO BID 14 Days #28 capsule 01/29/19 Allergies Allergy/AdvReac Type Severity Reaction Status Date / Time ketorolac [From Toradol] Allergy Anaphylaxis Verified 01/29/19 15:01 shellfish derived Allergy Anaphylaxis Verified 01/29/19 15:01 tramadol [From Ultram] Allergy Rash/Hives Verified 01/29/19 15:01 ibuprofen AdvReac Nausea Verified 01/29/19 15:01 morphine AdvReac Nausea Verified 01/29/19 15:01 Review of Systems ROS Statement: Those systems with pertinent positive or pertinent negative responses have been documented in the HPI. ROS Other: All systems not noted in ROS Statement are negative. Past Medical History Past Medical History: COPD, GERD/Reflux, Hypertension, Myocardial Infarction ([place]), Pneumonia, Skin Disorder Additional Past Medical History / Comment(s): chronic back pain, lumbar degenerative disc disease, insomnia, hx shingles, hiatal hernia, kidney stones. 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, migraines,; obstetrical history is significant for 1 miscarriage and 1 term that required a section Last Myocardial Infarction Date:: 08/27/2016 History of Any Multi-Drug Resistant Organisms: MRSA Date of last positivie culture/infection: 09/22/09 MDRO Source:: neck Past Surgical History: Appendectomy, Back Surgery, Section, Cholecystectomy Additional Past Surgical History / Comment(s): Cervical spine fusion with insertion of a metal plate, EGD, colonoscopy, lumbar rhizotomy and radiofrequency ablation Past Anesthesia/Blood Transfusion Reactions: No Reported Reaction Additional Past Anesthesia/Blood Transfusion Reaction / Comment(s): CLAUSTROPHOBIA Past Psychological History: ADD/ADHD, Anxiety Smoking Status: Former smoker Past Alcohol Use History: Rare Past Drug Use History: None Reported - Past Family History Father Family Medical History: Cancer Additional Family Medical History / Comment(s): Father at age 48 from lung cancer. Mother Family Medical History: Congestive Heart Failure (CHF), CVA/TIA Additional Family Medical History / Comment(s): Mother is alive at age 68. She has suffered from a CVA and has chronic back problems. Patient has 2 brothers and 4 sisters with no major medical problems. General Exam - General Exam Comments Initial Comments: General: The patient is awake and alert, in no distress, and does not appear acutely ill. Eye: +3 mm pupils are equal, round and reactive to light, extra-ocular mo vements are intact. No nystagmus. There is normal conjunctiva bilaterally. No signs of icterus. Ears, nose, mouth and throat: There are moist mucous membranes and no oral lesions. No nuchal rigidity. Neck: The neck is supple, there is no tenderness or JVD. Cardiovascular: There is a regular rate and rhythm. No murmur, rub or gallop is appreciated. Respiratory: Lungs are clear to auscultation, respirations are non-labored, breath sounds are equal. No wheezes, stridor, rales, or rhonchi. Gastrointestinal: Soft, non-distended, non-tender abdomen without masses or organomegaly noted. There is no rebound or guarding present. Musculoskeletal: Normal ROM, no tenderness. Strength 5/5. Sensation intact. Pulses equal bilaterally 2+. Neurological: A&O x 3. CN II-XII intact, There are no obvious motor or sensory deficits. Coordination appears grossly intact. Speech is normal. Skin: Skin is warm and dry and no rashes. Small 1 cm circular lesion of the left posterior arm. No bulls eye lesions, mild surrounding cellulitis (very minimal). No evidence FB. Psychiatric: Cooperative, appropriate mood & affect, normal judgment. Limitations: no limitations Course Vital Signs 01/29/19 15:01 Temperature 98.1 F Pulse Rate 94 Respiratory 18 Rate Blood Pressure 118/66 O2 Sat by Pulse 100 Oximetry Medical Decision Making - Medical Decision Making 48yo presenting for tick bite to left posterior arm. Patient concerned of Lyme disease. Patient states she has been bitten in the past. Remaining review of system negative. There was a slight amount of surrounding cellulitis. No evidence of foreign body. Patient be treated doxycycline, she did request the treatment for Lyme disease. Patient be discharged with return parameters as discussed. Patient was discharged appearing well afebrile no signs of acute distress. Disposition Clinical Impression: Tick bite Disposition: HOME SELF-CARE Condition: Good Instructions (If sedation given, give patient instructions): Lyme Disease (ED), Tick Bite (ED) Additional Instructions: Please use medication as discussed. Please follow-up with family doctor in the next 2 days. Please return to emergency room if the symptoms increase or worsen or for any other concerns. Prescriptions: Doxycycline [Vibramycin] 100 mg PO BID 14 Days #28 capsule Is patient prescribed a controlled substance at d/c from ED?: No Referrals: Joyce Klein DO [Primary Care Provider] - 1-2 days Time of Disposition: 15:33
== END 2019-01-29 15:35 | disposition home or self-care (01) ==
LOC: EC 14:56
DX: S40.862A Insect bite (nonvenomous) of left upper arm, initial encounter (principal); F90.9 Attention-deficit hyperactivity disorder, unspecified type; I10 Essential (primary) hypertension; I25.2 Old myocardial infarction; Z79.1 Long term (current) use of non-steroidal anti-inflammatories (NSAID); Z79.899 Other long term (current) drug therapy; Z88.5 Allergy status to narcotic agent; Z88.6 Allergy status to analgesic agent; Z91.013 Allergy to seafood; Z87.891 Personal history of nicotine dependence; Z98.1 Arthrodesis status; W57.XXXA Bitten or stung by nonvenomous insect and other nonvenomous arthropods, initial encounter
CPT/HCPCS: 99281

== ENCOUNTER 2019-02-28 12:43 | Inpatient (IN) | payer OTHER ==
[2019-02-28] MEDS ORDERED: ASPIRIN 81 MG PO STA ×2 (13:07→13:10)
[2019-02-28] MEDS ORDERED: NITROGLYCERIN OINT 1 INCH/GM PACKET TOPICAL STA (13:07)
[2019-02-28] MEDS ORDERED: LORazepam 2 MG/ML INJ IV STA (13:08)
--- NOTE | 2019-02-28 13:13 | ED ---
General Adult HPI - General Chief complaint: Chest Pain Stated complaint: CHEST PAIN X 1 HOUR, HS Hx Time Seen by Provider: 02/28/19 12:50 Source: patient, RN notes reviewed Mode of arrival: ambulatory Limitations: no limitations - History of Present Illness Initial comments: This is a 49-year-old female with past medical history significant for high bl ood pressure and smoking. Patient states she has had a heart attack in the past though she never required any stents. Patient states about an hour and half prior to arrival he started having severe chest heaviness and it radiated to her back and she also short of breath with it as well. Patient states the pain continues. Patient denies any diaphoresis. Patient denies any nausea or vomiting. Patient denies any recent fever chills or cough per patient denies any heavy lifting or straining that might have injured her. Patient denies any injury or trauma recently. Patient denies any lightheadedness or dizziness. Patient denies any palpitations. - Related Data Home Medications Medication Instructions Recorded Confirmed Dextroamphetamine/Amphetamine 30 mg PO QAM 07/30/17 02/28/19 [Adderall] Atenolol [Tenormin] 50 mg PO DAILY 07/29/18 02/28/19 Gabapentin [Neurontin] 400 mg PO TID 11/23/18 02/28/19 HYDROcodone/APAP 10-325MG [[place] 1 tab PO Q6HR PRN 11/23/18 02/28/19 10-325] Meloxicam [Mobic] 7.5 mg PO BID 01/23/19 02/28/19 Aspirin EC [Ecotrin Low Dose] 81 mg PO DAILY 02/28/19 02/28/19 Doxepin [SINEquan] 10 mg PO HS 02/28/19 02/28/19 Previous Rx's Medication Instructions Recorded clonazePAM [KlonoPIN] 0.5 mg PO BID PRN #6 tab 10/15/18 Allergies Allergy/AdvReac Type Severity Reaction Status Date / Time ketorolac [From Toradol] Allergy Anaphylaxis Verified 02/28/19 13:30 shellfish derived Allergy Anaphylaxis Verified 02/28/19 13:30 tramadol [From Ultram] Allergy Rash/Hives Verified 02/28/19 13:30 ibuprofen AdvReac Nausea Verified 02/28/19 13:30 morphine AdvReac Nausea Verified 02/28/19 13:30 Review of Systems ROS Statement: Those systems with pertinent positive or pertinent negative responses have been documented in the HPI. ROS Other: All systems not noted in ROS Statement are negative. Past Medical History Past Medical History: COPD, GERD/Reflux, Hypertension, Myocardial Infarction ([place]), Pneumonia, Skin Disorder Additional Past Medical History / Comment(s): chronic back pain, lumbar degenera tive disc disease, insomnia, hx shingles, hiatal hernia, kidney stones. 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, migraines,; obstetrical history is significant for 1 miscarriage and 1 term that required a section Last Myocardial Infarction Date:: 08/27/2016 History of Any Multi-Drug Resistant Organisms: MRSA Date of last positivie culture/infection: 09/22/09 MDRO Source:: neck Past Surgical History: Appendectomy, Back Surgery, Section, Cholecystectomy Additional Past Surgical History / Comment(s): Cervical spine fusion with insertion of a metal plate, EGD, colonoscopy, lumbar rhizotomy and radiofrequency ablation Past Anesthesia/Blood Transfusion Reactions: No Reported Reaction Additional Past Anesthesia/Blood Transfusion Reaction / Comment(s): CLAUSTROPHOBIA Past Psychological History: ADD/ADHD, Anxiety Smoking Status: Current every day smoker Past Alcohol Use History: Rare Past Drug Use History: None Reported - Past Family History Father Family Medical History: Cancer Additional Family Medical History / Comment(s): Father at age 48 from lung cancer. Mother Family Medical History: Congestive Heart Failure (CHF), CVA/TIA Additional Family Medical History / Comment(s): Mother is alive at age 68. She has suffered from a CVA and has chronic back problems. Patient has 2 brothers and 4 sisters with no major medical problems. General Exam - General Exam Comments Initial Comments: GENERAL: Patient is well-developed and well-nourished. Patient is nontoxic and well-h ydrated and is in mild distress. ENT: Neck is soft and supple. No significant lymphadenopathy is noted. Oropharynx is clear. Moist mucous membranes. Neck has full range of motion without eliciting any pain. EYES: The sclera were anicteric and conjunctiva were pink and moist. Extraocular mov ements were intact and pupils were equal round and reactive to light. Eyelids were unremarkable. PULMONARY: Unlabored respirations. Good breath sounds bilaterally. No audible rales rhonchi or wheezing was noted. CARDIOVASCULAR: There is a regular rate and rhythm without any murmurs gallops or rubs. ABDOMEN: Soft and nontender with normal bowel sounds. No palpable organomegaly was noted. There is no palpable pulsatile mass. SKIN: Skin is clear with no lesions or rashes and otherwise unremarkable. NEUROLOGIC: Patient is alert and oriented x3. Cranial nerves II through XII are grossly intact. Motor and sensory are also intact. Normal speech, volume and content. Symmetrical smile. MUSCULOSKELETAL: Normal extremities with adequate strength and full range of motion. LYMPHATICS: No significant lymphadenopathy is noted PSYCHIATRIC: Normal psychiatric evaluation. 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 Chest x-ray shows no acute abnormality I spoke with Dr. Manning in agreed to admit the patient admitted the patient wrote admitting orders - Lab Data Result diagrams: 02/28/19 13:03 02/28/19 13:03 Lab Results 02/28/19 02/28/19 02/28/19 Range/Units 13:03 13:03 13:03 WBC 8.8 (3.8-10.6) k/uL RBC 4.82 (3.80-5.40) m/uL Hgb 15.1 (11.4-16.0) gm/dL Hct 45.2 (34.0-46.0) % MCV 93.6 (80.0-100.0) fL MCH 31.4 (25.0-35.0) pg MCHC 33.5 (31.0-37.0) g/dL RDW 13.4 (11.5-15.5) % Plt Count 440 (150-450) k/uL Neutrophils % 65 % Lymphocytes % 23 % Monocytes % 7 % Eosinophils % 4 % Basophils % 0 % Neutrophils # 5.7 (1.3-7.7) k/uL Lymphocytes # 2.0 (1.0-4.8) k/uL Monocytes # 0.6 (0-1.0) k/uL Eosinophils # 0.4 (0-0.7) k/uL Basophils # 0.0 (0-0.2) k/uL PT 9.6 (9.0-12.0) sec INR 0.9 (<1.2) APTT 23.4 (22.0-30.0) sec D-Dimer 0.33 (<0.60) mg/L FEU Sodium 142 (137-145) mmol/L Potassium 4.0 (3.5-5.1) mmol/L Chloride 105 (98-107) mmol/L Carbon Dioxide 26 (22-30) mmol/L Anion Gap 11 mmol/L BUN 11 (7-17) mg/dL Creatinine 0.77 (0.52-1.04) mg/dL Est GFR (CKD-EPI)AfAm >90 (>60 ml/min/1.73 sqM) Est GFR (CKD-EPI)NonAf 90 (>60 ml/min/1.73 sqM) Glucose 127 H (74-99) mg/dL Calcium 10.0 (8.4-10.2) mg/dL Magnesium 1.8 (1.6-2.3) mg/dL Total Bilirubin 0.4 (0.2-1.3) mg/dL AST 17 (14-36) U/L ALT 13 (9-52) U/L Alkaline Phosphatase 118 (38-126) U/L Troponin I (0.000-0.034) ng/mL Total Protein 7.6 (6.3-8.2) g/dL Albumin 4.4 (3.5-5.0) g/dL 02/28/19 Range/Units 13:03 WBC (3.8-10.6) k/uL RBC (3.80-5.40) m/uL Hgb (11.4-16.0) gm/dL Hct (34.0-46.0) % MCV (80.0-100.0) fL MCH (25.0-35.0) pg MCHC (31.0-37.0) g/dL RDW (11.5-15.5) % Plt Count (150-450) k/uL Neutrophils % % Lymphocytes % % Monocytes % % Eosinophils % % Basophils % % Neutrophils # (1.3-7.7) k/uL Lymphocytes # (1.0-4.8) k/uL Monocytes # (0-1.0) k/uL Eosinophils # (0-0.7) k/uL Basophils # (0-0.2) k/uL PT (9.0-12.0) sec INR (<1.2) APTT (22.0-30.0) sec D-Dimer (<0.60) mg/L FEU Sodium (137-145) mmol/L Potassium (3.5-5.1) mmol/L Chloride (98-107) mmol/L Carbon Dioxide (22-30) mmol/L Anion Gap mmol/L BUN (7-17) mg/dL Creatinine (0.52-1.04) mg/dL Est GFR (CKD-EPI)AfAm (>60 ml/min/1.73 sqM) Est GFR (CKD-EPI)NonAf (>60 ml/min/1.73 sqM) Glucose (74-99) mg/dL Calcium (8.4-10.2) mg/dL Magnesium (1.6-2.3) mg/dL Total Bilirubin (0.2-1.3) mg/dL AST (14-36) U/L ALT (9-52) U/L Alkaline Phosphatase (38-126) U/L Troponin I <0.012 (0.000-0.034) ng/mL Total Protein (6.3-8.2) g/dL Albumin (3.5-5.0) g/dL Disposition Clinical Impression: Chest pain Disposition: [facility] Referrals: Joyce Klein DO [Primary Care Provider] - 1-2 days Time of Disposition: 15:08
[2019-02-28] MEDS ORDERED: NITROGLYCERIN SL TABS 0.4 MG TAB SUBLINGUAL STA (13:16)
[2019-02-28 13:19] LABS: Basophils % (A) 0 %; Eosinophils # (A) 0.4 k/uL (0-0.7); Eosinophils % (A) 4 %; HCT 45.2 % (34.0-46.0); HGB 15.1 gm/dL (11.4-16.0); Lymphocytes % (A) 23 %; MCH 31.4 pg (25.0-35.0); MCHC 33.5 g/dL (31.0-37.0); MCV 93.6 fL (80.0-100.0); Mean Platelet Volume 6.7; Monocytes # (A) 0.6 k/uL (0-1.0); Monocytes % (A) 7 %; Neutrophils # (A) 5.7 k/uL (1.3-7.7); Neutrophils % (A) 65 %; Platelet Count 440 k/uL (150-450); RBC 4.82 m/uL (3.80-5.40); RDW 13.4 % (11.5-15.5); WBC 8.8 k/uL (3.8-10.6)
[2019-02-28 13:31] LABS: ALT 13 U/L (9-52); AST 17 U/L (14-36); African American GFR (CKD) >90 (>60 ml/min/1.73 sqM); Albumin 4.4 g/dL (3.5-5.0); Alkaline Phosphatase 118 U/L (38-126); Anion Gap 11 mmol/L; Blood Urea Nitrogen 11 mg/dL (7-17); Carbon Dioxide 26 mmol/L (22-30); Chloride 105 mmol/L (98-107); D-Dimer 0.33 mg/L FEU (<0.60); Glucose 127 mg/dL (74-99); INR 0.9 (<1.2); Magnesium 1.8 mg/dL (1.6-2.3); Non-African American GFR(CKD) 90 (>60 ml/min/1.73 sqM); Partial Thromboplastin Time 23.4 sec (22.0-30.0); Prothrombin Time 9.6 sec (9.0-12.0); Sodium 142 mmol/L (137-145); Total Bilirubin 0.4 mg/dL (0.2-1.3); Total Protein 7.6 g/dL (6.3-8.2)
[2019-02-28] MEDS ORDERED: MORPHINE SULFATE 2 MG/ML SYRINGE IVP STA ×2 (13:57→16:44)
--- NOTE | 2019-02-28 13:59 | XR ---
EXAMINATION TYPE: XR chest 2V DATE OF EXAM: 02/28/2019 COMPARISON: 12/09/2018 TECHNIQUE: PA and lateral views submitted. HISTORY: Chest pain FINDINGS: The lungs are clear and there is no pneumothorax, pleural effusion, or focal pneumonia. Postsurgica l change overlying the cervical spine. Surgical clips in the abdomen noted. No overt failure. IMPRESSION: 1. No acute process.
[2019-02-28] MEDS ORDERED: NITROGLYCERIN SL TABS 0.4 MG TAB SUBLINGUAL PRN (15:15)
[2019-02-28] MEDS: NITROGLYCERIN OINT 1 INCH/GM PACKET TOPICAL SCH ×2 (19:47→23:42)
[2019-02-28] MEDS: HYDROcodone/APAP 10-325MG 1 EACH TAB PO PRN (20:56)
[2019-02-28] MEDS: clonazePAM 0.5 MG TAB PO PRN (20:56)
[2019-02-28] MEDS: GABAPENTIN 400 MG CAP PO SCH (20:56)
[2019-02-28] MEDS: DOXEPIN 10 MG CAP PO SCH (20:57)
--- NOTE | 2019-02-28 21:54 | CT ---
EXAMINATION TYPE: CT chest wo con DATE OF EXAM: 02/28/2019 COMPARISON: CT 10/14/2018 HISTORY: Chest pain CT DLP: 305.1 mGycm. Automated Exposure Control for Dose Reduction was Utilized. TECHNIQUE: CT scan of the thorax is performed without IV contrast. FINDINGS: The airways are unremarkable. The lungs are clear. The pleural spaces are negative. Prominent left and right coronary calcifications noted. No cardiomegaly or pericardial effusion. No a denopathy. No focal skeletal lesions. IMPRESSION: 1. No acute CT process. 2. Coronary calcifications.
[2019-02-28] MEDS: NICOTINE 14MG/24HR PATCH TRANSDERM SCH (22:17)
[2019-02-28] MEDS: HYDROmorphone 0.5 MG/0.5 ML SYRINGE IVP PRN (22:24)
--- NOTE | 2019-02-28 23:21 | HP ---
HISTORY AND PHYSICAL CHIEF COMPLAINT: Chest pain. HISTORY OF PRESENT ILLNESS: This 49-year-old woman with a past medical history of multiple medical problems, including COPD, GERD, hypertension, history of myocardial infarction, history of chronic back pain, DJD, history of MRSA, history ADD, ADHD, history of anxiety, being followed by Dr. Joyce Klein in the outpatient setting, was complaining of chest pain. Patient apparently was admitted with chest pain in September of this year. No significant cardiac workup was done, according to her. Currently the patient is complaining of chest pain which is felt in the anterior part of the chest which is crushing in character. It was 8 to 9 out of 10 in intensity which was radiating to the back. The patient was also complaining of some heaviness. The patient does not have any nausea, vomiting or any diaphoresis and shortness of breath associated with that. The patient came to [facility] and was admitted for further evaluation and treatment. EKG showed nonspecific ST-T changes. D-dimer was negative and the patient has been admitted for further evaluation treatment. There is no history of any fever or rigors. No history of headache, loss of consciousness, seizures. PAST MEDICAL HISTORY: 1. COPD. 2. GERD. 3. Hypertension. 4. History of myocardial infarction. 5. Pneumonia. 6. Chronic back pain. 7. DJD. 8. History of back surgery. 9. ADD, ADHD. 10.Anxiety. 11.Claustrophobia. HOME MEDICATIONS: 1. Klonopin 0.5 mg b.i.d. p.r.n. 2. [place] 10 mg q.6 p.r.n. 3. Neurontin 400 mg p.o. t.i.d. 4. Doxepin 10 mg p.o. at bedtime. 5. Adderall 30 mg p.o. each morning. 6. Tenormin 50 mg p.o. daily. 7. Ecotrin 81 mg p.o. daily. ALLERGIES: 1. TORADOL. 2. SHELLFISH. 3. ULTRAM. 4. IBUPROFEN. 5. MORPHINE. FAMILY HISTORY: History of lung cancer in the family in father. SOCIAL HISTORY: Continued ongoing nicotine dependence. No history of alcohol intake. REVIEW OF SYSTEMS: ENT: No diminished hearing. No diminished vision. CARDIOVASCULAR SYSTEM: As mentioned earlier. RESPIRATORY SYSTEM: As mentioned earlier. GI: As mentioned earlier. : No dysuria or retention. NERVOUS SYSTEM: No numbness, weakness. ALLERGY/IMMUNOLOGY: No asthma, hayfever. MUSCULOSKELETAL: As mentioned earlier. HEMATOLOGY/ONCOLOGY: No history of anemia. ENDOCRINE: No history of diabetes, hypothyroidism. CONSTITUTIONAL: As mentioned earlier. DERMATOLOGY: Negative. RHEUMATOLOGY: Negative. PSYCHIATRY: As mentioned earlier. PHYSICAL EXAMINATION: Patient is alert and oriented x3. Pulse 88, blood pressure 96/60, respiration 18, temperature 98.8, pulse ox 100% on room air. HEENT: Conjunctivae normal. Oral mucosa moist. NECK: No jugular venous distention. No carotid bruit. No lymph node enlargement. CARDIOVASCULAR SYSTEM: S1, S2 muffled. No S3. No S4. RESPIRATORY SYSTEM: Breath sounds diminished at the bases. No rhonchi. No crackles. ABDOMEN: Soft, nontender. No mass palpable. LEGS: No edema. No swelling. NERVOUS SYSTEM: Higher functions as mentioned earlier. Moves all 4 limbs. No focal motor or sensory deficit. LYMPHATICS: No lymph node palpable in neck, axillae or groin. SKIN: No ulcer, rash, bleeding. JOINTS: No active deforming arthropathy. LABS: CBC within normal limits. D-dimer is negative. CMP showed glucose 127. ASSESSMENT: 1. Chest pain for evaluation; rule out coronary artery disease. 2. History of chronic obstructive pulmonary disease. 3. Gastroesophageal reflux disease. 4. History of hypertension. 5. History of myocardial infarction. 6. History of pneumonia. 7. History of chronic degenerative joint disease and back pain. 8. History of shingles. 9. Hiatal hernia. 10.History of methicillin-resistant Staphylococcus aeruginosa. 11.History of back surgery. 12.History of cervical spine fusion. 13.History of attention deficit disorder, attention deficit hyperactivity disorder, anxiety. 14.History of continued ongoing nicotine dependence. RECOMMENDATIONS AND DISCUSSION: In this 49-year-old woman who presented with multiple medical problems, at this time I recommend to continue current management, continue symptomatic treatment. Otherwise, I would also recommend rule out myocardial infarction. Unstable angina protocol. Cardiology consultation. Full cardiac workup, including stress test. There is low probability of pulmonary embolism; however, I would recommend a CT scan as a baseline. Please also note that a CTA done in September showed no evidence of any pulmonary embolism. A copy of this dictation is being forwarded to Dr. Joyce Klein, who is the primary physician. MMODL / IJN: [id number] /
[2019-03-01] MEDS: HYDROmorphone 0.5 MG/0.5 ML SYRINGE IVP PRN ×5 (03:05→20:05)
[2019-03-01 03:22] LABS: Cholesterol 205 mg/dL (<200); HDL Cholesterol 49 mg/dL (40-60); LDL Cholesterol,Calculated 115 mg/dL (0-99); Triglycerides 206 mg/dL (<150)
[2019-03-01] MEDS: NITROGLYCERIN OINT 1 INCH/GM PACKET TOPICAL SCH ×4 (06:02→23:06)
[2019-03-01] MEDS ORDERED: ASPIRIN 325 MG TAB PO SCH (09:00)
--- NOTE | 2019-03-01 11:23 | P.CRDCN ---
History of Present Illness History of present illness: This is Nereyda Esposito PA-C dictating a consult on this patient The patient was interviewed and examined by me as well as by Dr. Cedillo Case discussed with Dr. Cedillo and he agrees with the plan of care IMPRESSION / ASSESSMENT: Atypical chest discomfort, likely musculoskeletal, troponins negative, no EKG changes Coronary artery calcification seen on chest CT Current smoker Dyslipidemia Hypertension PLAN: Smoking cessation advised Start atorvastatin 20 mg daily and baby aspirin daily Further cardiac workup as an outpatient after back pain and abdominal pain are addressed HPI Patient is a 49-year-old female with a past medical history of hypertension, smoking, and chronic back pain who presented with complaints of chest discomfort. He describes the discomfort as a heavy constant pressure in the center of her chest that radiates around to her back. It is worse with exertion and also with a deep breath. She has associated diaphoresis, nausea, vomiting, and shortness of breath. It has remained constant. She had this discomfort a few years ago and was hospitalized for observation but is unsure of what workup was done. Does not believe heart catheterization was done. Initial EKG shows sinus mechanism with T-wave inversion in V1 and V2, these are unchanged from previous EKG. Chest x-ray and chest CT were negative for acute process but she did have coronary artery calcification on CT. Troponins and d-dimer were negative. She had seen and examined sitting in bed, appears uncomfortable. she continues to have back pain and chest pain as well as abdominal pain. Patient has smoked half pack per day for 30 years She is nondiabetic Denies family history of heart disease ROS: No fevers, chills or rigors, no cough, phlegm or expectoration, positive for nausea, vomiting , no hematuria, dysuria, positive for back pain no strokes or seizures, no skin lesions. EXAMINATION: Temperature 98.2F, pulse 80, respirations 17, blood pressure 99/66, oxygen saturation 95% on room air Patient seen and examined resting in bed, appears uncomfortable Lungs are diminished with rhonchi bilaterally Heart is regular, normal S1-S2, no murmurs appreciated Tenderness to palpation in the chest and upper back diffusely No elevated JVD No lower extremity edema Abdomen tender to palpation in the epigastric and left lower quadrant REVIEW OF LABS, ECG & MEDICAL DATA WBC 8.8, hemoglobin 15.1, potassium 4.0, BUN 11, creatinine 0.77, magnesium 1.8 Troponin negative 3 D-dimer negative Cholesterol 205, triglycerides 206, HDL 49, LDL 150 Chest x-ray showed no acute process Chest CT showed no acute process, coronary artery calcifications noted EKG shows sinus mechanism with T-wave inversion in V1 and V2. Last echocardiogram showed no evidence of stress-induced ischemia in August of 2017 Past Medical History Past Medical History: COPD, GERD/Reflux, Hypertension, Myocardial Infarction ([place]), Pneumonia, Skin Disorder Additional Past Medical History / Comment(s): chronic back pain, lumbar de generative disc disease, insomnia, hx shingles, hiatal hernia, kidney stones. 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, migraines,; obstetrical history is significant for 1 miscarriage and 1 term that required a section Last Myocardial Infarction Date:: 08/27/2016 History of Any Multi-Drug Resistant Organisms: MRSA Date of last positivie culture/infection: 09/22/09 MDRO Source:: neck Past Surgical History: Appendectomy, Back Surgery, Section, Cholecystectomy Additional Past Surgical History / Comment(s): Cervical spine fusion with insertion of a metal plate, EGD, colonoscopy, lumbar rhizotomy and radiofrequency ablation Past Anesthesia/Blood Transfusion Reactions: No Reported Reaction Additional Past Anesthesia/Blood Transfusion Reaction / Comment(s): CLAUSTROPHOBIA Past Psychological History: ADD/ADHD, Anxiety Additional Psychological History / Comment(s): PT LIVES WITH SIG OTHER OF 25 YEARS. Smoking Status: Current every day smoker Past Alcohol Use History: Rare Additional Past Alcohol Use History / Comment(s): PATIENT STATES SHE STARTED SMOKING AT AGE 16 SMOKES 1/2 PPD. last smoke 10-10-2018 Past Drug Use History: None Reported - Past Family History Father Family Medical History: Cancer Additional Family Medical History / Comment(s): Father at age 48 from lung cancer. Mother Family Medical History: Congestive Heart Failure (CHF), CVA/TIA Additional Family Medical History / Comment(s): Mother is alive at age 68. She has suffered from a CVA and has chronic back problems. Patient has 2 brothers and 4 sisters with no major medical problems. Medications and Allergies Home Medications Medication Instructions Recorded Confirmed Type Dextroamphetamine/Amphetamine 30 mg PO QAM 07/30/17 02/28/19 History [Adderall] Atenolol [Tenormin] 50 mg PO DAILY 07/29/18 02/28/19 History clonazePAM [KlonoPIN] 0.5 mg PO BID PRN #6 tab 10/15/18 02/28/19 Rx Gabapentin [Neurontin] 400 mg PO TID 11/23/18 02/28/19 History HYDROcodone/APAP 10-325MG [[place] 1 tab PO Q6HR PRN 11/23/18 02/28/19 History 10-325] Aspirin EC [Ecotrin Low Dose] 81 mg PO DAILY 02/28/19 02/28/19 History Doxepin [SINEquan] 10 mg PO HS 02/28/19 02/28/19 History Allergies Allergy/AdvReac Type Severity Reaction Status Date / Time ketorolac [From Toradol] Allergy Anaphylaxis Verified 02/28/19 13:30 shellfish derived Allergy Anaphylaxis Verified 02/28/19 13:30 tramadol [From Ultram] Allergy Rash/Hives Verified 02/28/19 13:30 ibuprofen AdvReac Nausea Verified 02/28/19 13:30 morphine AdvReac Nausea Verified 02/28/19 13:30 Physical Exam Vitals: Vital Signs Temp Pulse Pulse Pulse Resp BP BP 03/01/19 08:15 17 03/01/19 08:00 98.2 F 80 17 03/01/19 04:00 98.2 F 74 18 03/01/19 03:59 67 18 03/01/19 00:00 98.0 F 101 H 77 18 02/28/19 19:40 81 02/28/19 19:30 98.4 F 81 18 122/72 02/28/19 19:08 98.8 F 88 18 96/60 02/28/19 17:47 87 18 99/67 02/28/19 17:00 92 18 104/85 02/28/19 16:01 90 18 97/62 02/28/19 14:55 97.9 F 92 18 105/72 02/28/19 13:19 101 H 02/28/19 13:18 92 18 133/98 02/28/19 12:48 98.1 F 84 18 113/78 BP Pulse Ox 03/01/19 08:15 03/01/19 08:00 99/66 95 03/01/19 04:00 104/67 96 03/01/19 03:59 03/01/19 00:00 103/66 95 02/28/19 19:40 02/28/19 19:30 99 02/28/19 19:08 98 02/28/19 17:47 100 02/28/19 17:00 98 02/28/19 16:01 98 02/28/19 14:55 97 02/28/19 13:19 02/28/19 13:18 100 02/28/19 12:48 100 Intake and Output 02/28/19 03/01/19 03/01/19 22:59 06:59 14:59 Other: Voiding Method Toilet # Voids 2 Results 02/28/19 13:03 02/28/19 13:03 Cardiac Enzymes 02/28/19 02/28/19 02/28/19 Range/Units 13:03 13:03 19:17 AST 17 (14-36) U/L Troponin I <0.012 <0.012 (0.000-0.034) ng/mL 03/01/19 Range/Units 00:35 AST (14-36) U/L Troponin I <0.012 (0.000-0.034) ng/mL Coagulation 02/28/19 Range/Units 13:03 PT 9.6 (9.0-12.0) sec APTT 23.4 (22.0-30.0) sec Lipids 02/28/19 Range/Units 13:03 Triglycerides 206 H (<150) mg/dL Cholesterol 205 H (<200) mg/dL HDL Cholesterol 49 (40-60) mg/dL CBC 02/28/19 Range/Units 13:03 WBC 8.8 (3.8-10.6) k/uL RBC 4.82 (3.80-5.40) m/uL Hgb 15.1 (11.4-16.0) gm/dL Hct 45.2 (34.0-46.0) % Plt Count 440 (150-450) k/uL Comprehensive Metabolic Panel 02/28/19 Range/Units 13:03 Sodium 142 (137-145) mmol/L Potassium 4.0 (3.5-5.1) mmol/L Chloride 105 (98-107) mmol/L Carbon Dioxide 26 (22-30) mmol/L BUN 11 (7-17) mg/dL Creatinine 0.77 (0.52-1.04) mg/dL Glucose 127 H (74-99) mg/dL Calcium 10.0 (8.4-10.2) mg/dL AST 17 (14-36) U/L ALT 13 (9-52) U/L Alkaline Phosphatase 118 (38-126) U/L Total Protein 7.6 (6.3-8.2) g/dL Albumin 4.4 (3.5-5.0) g/dL Current Medications Generic Name Dose Route Start Last Admin Trade Name Freq PRN Reason Stop Dose Admin Hydrocodone Bitart/Acetaminophen 1 each 02/28/19 20:09 02/28/19 20:56 [place] 10 PO 1 each Q6HR PRN Administration Pain Aspirin 325 mg 03/01/19 09:00 Aspirin PO DAILY [facility] Atenolol 50 mg 03/01/19 09:00 Tenormin PO DAILY [facility] Clonazepam 0.5 mg 02/28/19 20:09 02/28/19 20:56 Klonopin PO 0.5 mg BID PRN Administration Anxiety Doxepin HCl 10 mg 02/28/19 21:00 02/28/19 20:57 Sinequan PO 10 mg HS YUSRA Administration Gabapentin 400 mg 02/28/19 22:00 02/28/19 20:56 Neurontin PO 400 mg TID [facility] Administration Hydromorphone HCl 0.5 mg 02/28/19 21:04 03/01/19 07:42 Dilaudid IVP 0.5 mg Q4HR PRN Administration Pain Nicotine 1 patch 02/28/19 22:00 02/28/19 22:17 Habitrol 14mg/24hr Patch TRANSDERM Not Given DAILY [facility] Nitroglycerin 1 inch 02/28/19 18:00 03/01/19 06:02 Nitro-Bid Oint TOPICAL 1 inch Q6HR [facility] Administration Nitroglycerin 0.4 mg 02/28/19 15:15 Nitrostat SUBLINGUAL Q5M PRN Chest Pain Non-Formulary Medication 30 mg 03/01/19 09:00 Dextroamphetamine/Amphetamine [Adderall] PO QAM [facility] Pantoprazole Sodium 40 mg 03/01/19 07:30 Protonix PO AC-BRKFST [facility] Temazepam 15 mg 02/28/19 21:49 Restoril PO HS PRN Insomnia Intake and Output 08/01/1103/01/19 03/01/19 22:59 06:59 14:59 Other: Voiding Method Toilet # Voids 2 02/28/19 13:03 02/28/19 13:03
--- NOTE | 2019-03-01 13:00 | US ---
EXAMINATION TYPE: US abdomen complete DATE OF EXAM: 03/01/2019 COMPARISON: NONE CLINICAL HISTORY: abdominal pain. Generalized abdomen pain. GB removed. EXAM MEASUREMENTS: Liver Length: 15.4 cm CBD: 0.7 cm Spleen: 9.3 cm Right Kidney: 10.5 x 4.6 x 4.4 cm Left Kidney: 10.8 x 4.4 x 4.1 cm Pancreas: Tail obscured by overlying bowel gas Liver: wnl Gallbladder: Surgically absent Evidence for sonographic Land's sign: neg CBD: Mild dilation may be due to postcholecystectomy change Spleen: wnl Right Kidney: wnl Left Kidney: wnl Upper IVC: wnl in its visualized Abd Aorta: No AAA visualized Kidneys show normal cortical medullary differentiation There is no ascites. IMPRESSION: There are limitations the exam. Status post cholecystectomy.
[2019-03-01] MEDS: NICOTINE 14MG/24HR PATCH TRANSDERM SCH (13:11)
[2019-03-01] MEDS: PANTOPRAZOLE 40 MG TABLET PO SCH (13:11)
[2019-03-01] MEDS: ATENOLOL 50 MG TAB PO SCH (13:11)
[2019-03-01] MEDS: GABAPENTIN 400 MG CAP PO SCH ×3 (13:11→20:05)
[2019-03-01] MEDS: NON FORMULARY DRUG (Dextroamphetamine/Amphetamine [Adderall] 30 MG) PO SCH (13:12)
[2019-03-01] MEDS: clonazePAM 0.5 MG TAB PO PRN ×2 (13:15→20:05)
[2019-03-01] MEDS: HYDROcodone/APAP 10-325MG 1 EACH TAB PO PRN (13:15)
--- NOTE | 2019-03-01 15:26 | PN ---
PROGRESS NOTE DATE OF SERVICE: 03/01/2019 This is a 49-year-old woman who was admitted with chest pain, also complaining of abdominal discomfort today. Cardiology evaluating the patient and abdominal ultrasound was ordered today which showed evidence of cholecystectomy. No fever. No cough. A CT scan was done which showed chronic calcifications. PHYSICAL EXAM: Alert and oriented x3, pulse 75, blood pressure 112/82, respirations 16, temperature 98.2, pulse ox 98% on room air. HEENT: Conjunctivae normal. NECK: No juglar venous distension. CARDIOVASCULAR: S1, S2, muffled. RESPIRATORY: Breath sounds diminished at the bases, no rhonchi, no crackles. ABDOMEN: Soft. Mild diffuse discomfort on palpation. No guarding. No rigidity. No mass palpable. LEGS: No edema, no swelling. NERVOUS SYSTEM: No focal deficits. LABS: CBC within normal limits, otherwise, D-dimer 0.33 and glucose 127, triglycerides 206, cholesterol 205 and LDL is 115. ASSESSMENT: 1. Chest pain, possible unstable angina. Myocardial infarction ruled out. 2. Hyperlipidemia. 3. Chronic calcification in the CT scan of the chest. 4. Abdominal pain for evaluation. 5. History of chronic obstructive pulmonary disease. 6. Gastroesophageal reflux disease. 7. Hypertension. 8. History of myocardial infarction. 9. History of pneumonia. 10.History of degenerative joint disease and back pain. 11.History of shingles. 12.History of hiatal hernia. 13.History of methicillin-resistant Staphylococcus aureus. 14.History of back surgery. 15.History of cervical spine fusion. 16.ADD, ADHD. 17.History of continued ongoing nicotine dependence. RECOMMENDATION: Recommend to continue current management and treatment, otherwise closely follow with Cardiology. Possible stress test. Otherwise, ultrasound abdomen noted. Surgical evaluation, guarded prognosis because of multiple complex medical issues. Further recommendations to follow. MMODL / IJN: [id number] /
[2019-03-01] MEDS: IOPAMIDOL CONTRAST (ORAL USE) VIAL PO PRN ×2 (15:41→16:54)
--- NOTE | 2019-03-01 15:58 | P.GSCN ---
History of Present Illness Consult date: 03/01/19 Reason for Consult: abdominal pain Requesting physician: Mookie Cohen History of present illness: CHIEF COMPLAINT: Abdominal pain HISTORY OF PRESENT ILLNESS: 49-year-old female who originally presented to the hospital with chest pain. General surgery consult was r equested for abdominal pain. Patient reports she began having abdominal pain yesterday around the same time as her chest pain began. She reports feeling nauseous today. She denies episodes of emesis today. She reports having 3 episodes of bilious emesis yesterday. Patient reports having a loose bowel movement this morning. Patient reports history of colitis 1.5 years ago and was hospitalized at [facility]. She reports she followed up with Dr. Durbin outpatient but has not been to their office recently. She reports having EGD/colonoscopy at [facility] by Dr. Tapia in August 2018. She believes it was normal. PAST MEDICAL HISTORY: See list. PAST SURGICAL HISTORY: See list. SOCIAL HISTORY: No illicit drug use. REVIEW OF SYSTEMS: CONSTITUTIONAL: Denies fever or chills. HEENT: Denies blurred vision, vision changes, or eye pain. Denies hemoptysis CARDIOVASCULAR: Reports chest pain prior to admission. RESPIRATORY: No shortness of breath. GASTROINTESTINAL: Refer to HPI for pertinent findings HEMATOLOGIC: Denies bleeding disorders. GENITOURINARY: Denies any blood in urine. SKIN: Denies pruitis. Denies rash. PHYSICAL EXAM: VITAL SIGNS: Reviewed. GENERAL: Well-developed in no acute distress. HEENT: No sclera icterus. Extraocular movements grossly intact. Moist buccal mucosa. Head is atraumatic, normocephalic. ABDOMEN: Soft. Nondistended. Tenderness upon palpation of right periumbilical region. Positive bowel sounds. NEUROLOGIC: Alert and oriented. Cranial nerves II through XII grossly intact. LABORATORY DATA: WBC 8.8. Hemoglobin 15.1. Potassium 4.0. Magnesium 1.8. IMAGING: Abdominal ultrasound: Surgically absent gallbladder. Mild dilation of common bile that made be due to postcholecystectomy changes. Measuring 0.7 cm. ASSESSMENT: 1. Abdominal pain 2. History of colitis 3. History of appendectomy 4. History of cholecystectomy 5. History of EGD/colonoscopy, 2019, normal per patient PLAN: 1. Clear liquid diet 2. Patient is prescribed [place] Q6H currently. Recommend DC Dilaudid due to polypharmacy 3. CT scan abdomen pelvis with IV and oral contrast. If negative for acute proc ess, patient may be discharged home from a surgical standpoint and follow up outpatient Nurse practitioner note has been reviewed by physician. Signing provider agrees with the documented findings, assessment, and plan of care. Past Medical History Past Medical History: COPD, GERD/Reflux, Hypertension, Myocardial Infarction ([place]), Pneumonia, Skin Disorder Additional Past Medical History / Comment(s): chronic back pain, lumbar degenerative disc disease, insomnia, hx shingles, hiatal hernia, kidney stones. 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, migraines,; obstetrical history is significant for 1 miscarriage and 1 term that required a section Last Myocardial Infarction Date:: 08/27/2016 History of Any Multi-Drug Resistant Organisms: MRSA Year Discovered:: 09/22/09 MDRO Source:: neck Past Surgical History: Appendectomy, Back Surgery, Section, Cholecystectomy Additional Past Surgical History / Comment(s): Cervical spine fusion with insertion of a metal plate, EGD, colonoscopy, lumbar rhizotomy and radiofrequency ablation Past Anesthesia/Blood Transfusion Reactions: No Reported Reaction Additional Past Anesthesia/Blood Transfusion Reaction / Comm: CLAUSTROPHOBIA Past Psychological History: ADD/ADHD, Anxiety Additional Psychological History / Comment(s): PT LIVES WITH SIG OTHER OF 25 YEARS. Smoking Status: Current every day smoker Past Alcohol Use History: Rare Additional Past Alcohol Use History / Comment(s): PATIENT STATES SHE STARTED SMOKING AT AGE 16 SMOKES 1/2 PPD. last smoke 10-10-2018 Past Drug Use History: None Reported - Past Family History Father Family Medical History: Cancer Additional Family Medical History / Comment(s): Father at age 48 from lung cancer. Mother Family Medical History: Congestive Heart Failure (CHF), CVA/TIA Additional Family Medical History / Comment(s): Mother is alive at age 68. She has suffered from a CVA and has chronic back problems. Patient has 2 brothers and 4 sisters with no major medical problems. Medications and Allergies Home Medications Medication Instructions Recorded Confirmed Type Dextroamphetamine/Amphetamine 30 mg PO QAM 07/30/17 02/28/19 History [Adderall] Atenolol [Tenormin] 50 mg PO DAILY 07/29/18 02/28/19 History clonazePAM [KlonoPIN] 0.5 mg PO BID PRN #6 tab 10/15/18 02/28/19 Rx Gabapentin [Neurontin] 400 mg PO TID 11/23/18 02/28/19 History HYDROcodone/APAP 10-325MG [[place] 1 tab PO Q6HR PRN 11/23/18 02/28/19 History 10-325] Aspirin EC [Ecotrin Low Dose] 81 mg PO DAILY 02/28/19 02/28/19 History Doxepin [SINEquan] 10 mg PO HS 02/28/19 02/28/19 History Allergies Allergy/AdvReac Type Severity Reaction Status Date / Time ketorolac [From Toradol] Allergy Anaphylaxis Verified 02/28/19 13:30 shellfish derived Allergy Anaphylaxis Verified 02/28/19 13:30 tramadol [From Ultram] Allergy Rash/Hives Verified 02/28/19 13:30 ibuprofen AdvReac Nausea Verified 02/28/19 13:30 morphine AdvReac Nausea Verified 02/28/19 13:30 Surgical - Exam Vital Signs Temp Pulse Resp BP Pulse Ox 98.1 F 84 18 113/78 100 02/28/19 12:48 02/28/19 12:48 02/28/19 12:48 02/28/19 12:48 02/28/19 12:48 Results - Labs 02/28/19 13:03 02/28/19 13:03 Abnormal Lab Results - Last 24 Hours (Table) 02/28/19 Range/Units 13:03 Triglycerides 206 H (<150) mg/dL Cholesterol 205 H (<200) mg/dL LDL Cholesterol, Calc 115 H (0-99) mg/dL Diabetes panel 02/28/19 Range/Units 13:03 Triglycerides 206 H (<150) mg/dL HDL Cholesterol 49 (40-60) mg/dL
[2019-03-01] MEDS: DOXEPIN 10 MG CAP PO SCH (20:05)
[2019-03-01] MEDS: TEMAZEPAM 15 MG CAP PO PRN (20:05)
[2019-03-01] MEDS: ATORVASTATIN 20 MG TAB PO SCH (20:05)
[2019-03-01 21:30] LABS: Hemoglobin A1C 5.9 % (4.0-6.0)
--- NOTE | 2019-03-01 22:29 | CT ---
EXAMINATION TYPE: CT abdomen pelvis w con DATE OF EXAM: 03/01/2019 COMPARISON: 07/07/2018 CT HISTORY: RUQ pain CT DLP: 755.3 mGycm Automated exposure control for dose reduction was used. TECHNIQUE: Helical acquisition of images was performed from the lung bases through the pelvis. CONTRAST: Performed with Oral Contrast and with IV Contrast, patient injected with 100 mL of Isovue 3 00. FINDINGS: LUNG BASES: No acute findings. LIVER/GB: No significant abnormality is appreciated. PANCREAS: No significant abnormality is seen. SPLEEN: No significant abnormality is seen. ADRENALS: No significant abnormality is seen. KIDNEYS: No significant abnormality is seen. PERITONEAL CAVITY: No pneumoperitoneum. No peritoneal fluid. RETROPERITONEAL ADENOPATHY: None visualized REPRODUCTIVE ORGANS: No significant abnormality is seen URINARY BLADDER: No significant abnormality is seen. PELVIC ADENOPATHY: None visualized. OSSEOUS STRUCTURES: No significant abnormality is seen. BOWEL: The distal thoracic esophagus and gastric cardia and fundus and body are negative. The gastri c antrum and proximal duodenum show evidence of circumferential mural thickening, suggesting peptic u lcer disease. This is a subtle CT findings. The jejunum and ileum and colon are negative. OTHER: No acute vascular findings. IMPRESSION: FINDINGS CONSISTENT WITH PEPTIC ULCER DISEASE.
[2019-03-02] MEDS: HYDROmorphone 0.5 MG/0.5 ML SYRINGE IVP PRN ×6 (01:58→23:55)
[2019-03-02] MEDS: NITROGLYCERIN OINT 1 INCH/GM PACKET TOPICAL SCH ×2 (03:32→12:46)
[2019-03-02] MEDS: PANTOPRAZOLE 40 MG TABLET PO SCH (08:13)
[2019-03-02] MEDS: GABAPENTIN 400 MG CAP PO SCH ×3 (08:13→20:09)
[2019-03-02] MEDS: ASPIRIN 81 MG PO SCH (08:13)
[2019-03-02] MEDS: NICOTINE 14MG/24HR PATCH TRANSDERM SCH (08:14)
[2019-03-02] MEDS: NON FORMULARY DRUG (Dextroamphetamine/Amphetamine [Adderall] 30 MG) PO SCH (08:14)
[2019-03-02] MEDS: clonazePAM 0.5 MG TAB PO PRN ×2 (12:14→20:09)
[2019-03-02] MEDS: HYDROcodone/APAP 10-325MG 1 EACH TAB PO PRN ×2 (12:14→20:09)
[2019-03-02] MEDS: ATENOLOL 50 MG TAB PO SCH (12:14)
--- NOTE | 2019-03-02 13:10 | P.PN ---
Subjective This is Nereyda Esposito PA-C dictating a progress note on this patient The patient was interviewed and examined by me Case discussed with Dr. Cedillo and he agrees with the plan of care IMPRESSION / ASSESSMENT: Atypical chest discomfort, troponins negative, no ST changes on EKG, pain improving Coronary calcifications seen on CT History of hypertension, blood pressure has been in the low normal range, possibly due to combination of [place] and Dilaudid Dyslipidemia Current smoker PLAN: Discontinue Nitro-Bid for hypotension, consider minimizing pain medications, continue beta blockers She is clear for discharge from a cardiac standpoint after her GI workup is complete, further cardiac workup as an outpatient Smoking cessation HPI/interval history She is a 49-year-old female with a past medical history of hypertension, smoking and back pain who presented with complaints of chest discomfort. She also had significant back pain and abdominal pain. Surgery was consulted and ordered a CT of abdomen and pelvis which showed possible peptic ulcer disease. She is scheduled to get a scope tomorrow. Seen and examined resting comfortably in bed, family at the bedside. States she feels better today and the pain medication is keeping her pain under control. Her blood pressure has been on the low end of normal but she has had no symptoms. Has been able to get up without any dizziness, lightheadedness presyncope or syncope. EXAMINATION Temperature 98.2F, pulse 67, respirations 17, blood pressure 93/64, oxygen saturation 97% on room air Patient seen and examined resting in bed, appears comfortable Lungs clear to auscultation bilaterally Heart is regular, normal S1-S2, no murmurs appreciated No elevated JVD or lower extremity edema noted REVIEW OF LABS, ECG No new labs CT abdomen and pelvis showed gastric antrum and proximal duodenum with circumferential mural thickening suggesting of peptic ulcer disease Objective - Vital Signs Vital signs: Vital Signs Temp 98.2 F 03/02/19 08:00 Pulse 67 03/02/19 08:00 Resp 17 03/02/19 08:00 BP 93/64 03/02/19 08:00 Pulse Ox 97 03/02/19 08:00 Intake & Output 03/01/19 03/02/19 03/02/19 18:59 06:59 18:59 Other: Voiding Method Toilet Toilet Toilet # Voids 1 2 # Bowel Movements 1 - Labs CBC & Chem 7: 02/28/19 13:03 08/06/19 13:03
--- NOTE | 2019-03-02 14:57 | P.PN ---
Progress Note - Text Progress Note Date: 03/02/19 Patient underwent computed tomography scan yesterday revealing gastric antrum and proximal duodenum circumferential mural thickening suggestive of peptic ulcer disease. Patient was scheduled for EGD this morning. However patient ate a breakfast tray. EGD canceled for today and rescheduled for tomorrow. Clear liquid diet. Nothing by mouth after midnight.
--- NOTE | 2019-03-02 17:42 | PN ---
PROGRESS NOTE DATE OF SERVICE: 03/02/2019 This 49-year-old woman who was admitted with chest pain and abdominal pain is being closely monitored. Myocardial infarction ruled out. An abdominal pelvis CAT scan was done which showed possible peptic ulcer disease with circumferential mural thickening. EGD is being planned by surgery at this time. No chest pain. No palpitations. No fever. PHYSICAL EXAM: Alert and oriented times three. Pulse 83, blood pressure 111/79, respiration 17, temperature 98.2, pulse ox 98% on room air. HEENT: Conjunctivae normal. NECK: No JVD. CARDIOVASCULAR: S1, S2 muffled. RESPIRATIONS: Breath sounds diminished in the bases. No rhonchi. No crackles. ABDOMEN is soft. Mild diffuse tenderness present. No guarding. No rigidity. No mass palpable. LEGS are no edema. No swelling. CENTRAL NERVOUS SYSTEM: No focal deficits. LABORATORY DATA: CBC within normal limits. Glucose 127. Lipids are noted. ASSESSMENT: 1. Chest pain possible unstable angina, possible gastroesophageal reflux disease, myocardial infarction ruled out. 2. Possible peptic ulcer disease with abdominal pain. 3. Hyperlipidemia. 4. Chronic calcification in the CT scan of the chest. 5. Abdominal pain. 6. History of chronic obstructive pulmonary disease. 7. Gastroesophageal reflux disease. 8. History of myocardial infarction. 9. History of pneumonia. 10.History of degenerative joint disease and back pain. 11.History of shingles. 12.History of hiatal hernia. 13.History of MRSA. 14.History of back surgery. 15.History of cervical spine fusion. 16.Attention-deficit disorder/attention-deficit/hyperactivity disorder. 17.Continued ongoing nicotine dependence. RECOMMENDATIONS AND DISCUSSION: Recommend to continue current medication, continue to monitor. Symptomatic treatment. Otherwise, at this time, I recommend closely follow with Cardiology and as well as surgery. Possible EGD. Guarded prognosis because of multiple complex medical issues. Further recommendations to follow. See orders for details. MMODL / IJN: [id number] /
[2019-03-02] MEDS: ATORVASTATIN 20 MG TAB PO SCH (20:09)
[2019-03-02] MEDS: DOXEPIN 10 MG CAP PO SCH (20:14)
[2019-03-02] MEDS: TEMAZEPAM 15 MG CAP PO PRN (23:55)
[2019-03-03] MEDS: HYDROmorphone 0.5 MG/0.5 ML SYRINGE IVP PRN ×5 (04:06→21:15)
[2019-03-03] MEDS ORDERED: GLYCOPYRROLATE 0.2 MG/ML 2 ML VIAL ONE (07:38)
[2019-03-03] MEDS ORDERED: LIDOCAINE 1% INJ 10MG/ML (20 ML MDV) ONE (07:38)
[2019-03-03] MEDS ORDERED: PROPOFOL 10 MG/ML 20 ML VIAL IV ONE (07:38)
[2019-03-03] MEDS ORDERED: LACTATED RINGERS 1,000 ML IV ONE (08:02)
--- NOTE | 2019-03-03 08:16 | P.OP ---
Date of Procedure: 03/03/19 Preoperative Diagnosis: Gastritis Postoperative Diagnosis: Duodenitis Gastritis Procedure(s) Performed: EGD Anesthesia: MAC Surgeon: Nacho Bush Pathology: other (Antral, esophagus) Condition: stable Disposition: PACU Description of Procedure: The patient's placed on the endoscopy table in the lateral position. She received IV sedation. The gastroscope placed oropharynx passed in the esophagus and into the stomach. Scope was then placed through the pylorus. The first and second portion of the duodenum appeared inflamed. A biopsies performed. There is no obvious ulcer however the duodenum was moderately inflamed. Scope summer back the antrum this was mildly inflamed. A biopsies performed. The scope was then retroflexed and remainder the stomach appeared normal. There is no significant hiatal hernia. The GE junction was at 40 cm the distal esophagus appeared minimal inflamed. A biopsies performed. The proximal esophagus. Normal. Scope was withdrawn for patient.
[2019-03-03] MEDS: NON FORMULARY DRUG (Dextroamphetamine/Amphetamine [Adderall] 30 MG) PO SCH (08:35)
[2019-03-03] MEDS: ATENOLOL 50 MG TAB PO SCH (08:35)
[2019-03-03] MEDS: ASPIRIN 81 MG PO SCH (08:35)
[2019-03-03] MEDS: PANTOPRAZOLE 40 MG TABLET PO SCH (08:35)
[2019-03-03] MEDS: NICOTINE 14MG/24HR PATCH TRANSDERM SCH ×2 (08:36→13:34)
[2019-03-03] MEDS: GABAPENTIN 400 MG CAP PO SCH ×3 (08:36→20:23)
[2019-03-03] MEDS: clonazePAM 0.5 MG TAB PO PRN ×2 (10:24→21:14)
[2019-03-03] MEDS: HYDROcodone/APAP 10-325MG 1 EACH TAB PO PRN ×2 (11:18→18:55)
[2019-03-03] MEDS ORDERED: MAG HYDROX/AL HYDROX/SIMETH 30 ML, HYOSCYAMINE ELIXIR 10 ML, CIMETIDINE HCL 300 MG, LID... PO ONE ×4 (14:15)
[2019-03-03] MEDS: PANTOPRAZOLE 40 MG/10 ML VIAL IVP SCH ×2 (16:54→20:13)
--- NOTE | 2019-03-03 16:55 | PN ---
PROGRESS NOTE DATE OF SERVICE: 03/03/2019 This 49-year-old woman was admitted after chest pain with possible unstable angina, also had peptic ulcer disease. The patient underwent EGD by Dr. Bush today. The EGD showed moderate inflammation in the duodenum and biopsies performed. No chest pain. No palpitations. No fever. EXAM: Alert and oriented x3. Pulse is 52, blood pressure 117/75, respiration 16, temperature 98.4, pulse ox 97% on room air. HEENT: Conjunctivae normal. NECK: No jugular venous distention. CARDIOVASCULAR: S1, S2. RESPIRATIONS: Breath sounds diminished in the bases. No rhonchi. No crackles. Abdomen is soft, nontender. Mild diffuse discomfort. No mass palpable. LEGS are no edema. No swelling. CENTRAL NERVOUS SYSTEM: No focal deficits. LABS: CBC within normal limits and cholesterol is noted. ASSESSMENT: 1. Chest pain, possible unstable angina, present on admission, improved and no evidence of myocardial infarction. 2. Abdominal pain with possibly status post EGD, possibly gastritis and duodenitis. 3. Hyperlipidemia. 4. Chronic coronary artery calcification on the CT scan of the chest. 5. Abdominal pain. 6. History of chronic obstructive pulmonary disease. 7. History of gastroesophageal reflux disease. 8. History of myocardial infarction. 9. History of pneumonia. 10.History of degenerative joint disease and back pain. 11.History of shingles. 12.History of hiatal hernia. 13.History of MRSA. 14.History of back surgery. 15.History of cervical spine fusion. 16.Attention-deficit disorder/attention-deficit hyperactivity disorder. 17.Continued ongoing nicotine dependence. RECOMMENDATIONS AND DISCUSSION: Recommend to continue current medications, management and symptomatic treatment. Otherwise, continue with proton pump inhibitors. Otherwise, the patient is chest pain free at this time. Follow closely with Cardiology. Further recommendations to follow. See orders for details. MMODL / IJN: [id number] /
[2019-03-03] MEDS ORDERED: LACTATED RINGERS 1,000 ML IV SCH (18:32)
[2019-03-03] MEDS: DOXEPIN 10 MG CAP PO SCH (20:23)
[2019-03-03] MEDS: ATORVASTATIN 20 MG TAB PO SCH (20:23)
[2019-03-03] MEDS: TEMAZEPAM 15 MG CAP PO PRN (21:14)
[2019-03-04] MEDS: HYDROmorphone 0.5 MG/0.5 ML SYRINGE IVP PRN ×2 (02:27→06:02)
[2019-03-04 05:24] VITALS: BP 101/65; PULSE 65; RESP 14; TEMP 97.8
[2019-03-04] MEDS: NON FORMULARY DRUG (Dextroamphetamine/Amphetamine [Adderall] 30 MG) PO SCH (09:00)
[2019-03-04] MEDS: PANTOPRAZOLE 40 MG/10 ML VIAL IVP SCH (09:02)
[2019-03-04] MEDS: HYDROcodone/APAP 10-325MG 1 EACH TAB PO PRN (09:08)
[2019-03-04] MEDS: clonazePAM 0.5 MG TAB PO PRN (09:08)
[2019-03-04] MEDS: ATENOLOL 50 MG TAB PO SCH (10:50)
[2019-03-04] MEDS: ASPIRIN 81 MG PO SCH (10:50)
[2019-03-04] MEDS: GABAPENTIN 400 MG CAP PO SCH (10:50)
[2019-03-04] MEDS: NICOTINE 14MG/24HR PATCH TRANSDERM SCH (10:50)
[2019-03-04] MEDS ORDERED: SODIUM CHLORIDE 0.9% 1,000 ML IV SCH (13:34)
--- NOTE | 2019-03-04 13:39 | P.PN ---
Subjective Progress Note Date: 03/04/19 CHIEF COMPLAINT: Gastritis HISTORY OF PRESENT ILLNESS: The patient is a 49-year-old female with history of chronic pain who reports lower abdominal and epigastric pain. EGD showed gastritis. She takes antacids at home. I personally offered IV fluids to help with underlying nausea as no acute surgical intervention is indicated. She reports dilaudid helps her pain. She has history of chronic back pain. ROS: Has reports of nausea now resolved. No vomiting. No fevers or chills. No new chest pain. No productive sputum PHYSICAL EXAM: VITAL SIGNS: Reviewed CONSTITUTIONAL: Well developed and in no acute distress. EYES: Conjuctivae without sclera icterus. Extraocular movements grossly intact. HEAD, EARS, NOSE, THROAT: Moist buccal mucosa. Head is atraumatic, normocephalic. Hears conversational speech. No nasal drainage. NECK: Supple. No thyroidomegaly. RESPIRATORY: Non-labored respirations and equal bilateral excursions. CARDIOVASCULAR: Palpable 2+ radial pulses. Regular rate. Regular rhythm. ABDOMEN: Soft. No peritonitis. Minimal tenderness left lower quadrant. MUSCULOSKELETAL: No gross deformity of the lower extremities noted. No clubbing. No cyanosis. SKIN: Good skin turgor. Well perfused. NEUROLOGIC: Cranial nerves I through XII grossly intact. No focal or lateral izing signs. PSYCH: Appropriate affect. Alert and oriented to person, place and time. CLINCAL LABS: White blood cell count normal MEDICAL REPORT: EGD showed gastritis. ASSESSMENT: 1. Gastritis PLAN: 1. With her chronic back pain, some back pain refers to the abdomen. 2. Recommend follow up with pain specialist. 3. She is cleared for discharge. Objective - Vital Signs Vital signs: Vital Signs Temp 97.8 F 03/04/19 05:24 Pulse 65 03/04/19 05:24 Resp 14 03/04/19 05:24 BP 101/65 03/04/19 05:24 Pulse Ox 97 03/04/19 05:24 Intake & Output 03/03/19 03/04/19 03/04/19 18:59 06:59 18:59 Intake Total 640 Balance 640 Intake: IV 400 Oral 240 Other: Voiding Method Toilet # Voids 4 1 # Bowel Movements 1 - Labs CBC & Chem 7: 02/28/19 13:03 02/28/19 13:03 Assessment and Plan (1) Gastritis Status: Acute Code(s): K29.70 - GASTRITIS, UNSPECIFIED, WITHOUT BLEEDING SNOMED Code(s): 7956636 (2) Lower abdominal pain Status: Acute Code(s): R10.30 - LOWER ABDOMINAL PAIN, UNSPECIFIED SNOMED Code(s): 55447864 (3) GERD (gastroesophageal reflux disease) Status: Acute Code(s): K21.9 - GASTRO-ESOPHAGEAL REFLUX DISEASE WITHOUT ESO PHAGITIS SNOMED Code(s): 244617952
--- NOTE | 2019-03-05 01:50 | DS ---
DISCHARGE SUMMARY DATE OF SERVICE: 03/04/2019. FINAL DIAGNOSES: 1. Chest pain, myocardial infarction ruled out. 2. Abdominal pain, possible acute gastritis and duodenitis. 3. Hyperlipidemia. 4. Chronic on the CT scan of the chest. 5. Abdominal pain. 6. History of chronic obstructive pulmonary disease. 7. History of gastroesophageal reflux disease. 8. History of myocardial infarction. 9. History of pneumonia. 10.History of degenerative joint disease. 11.History of shingles. 12.History of hiatal hernia. 13.History of MRSA. 14.History of back surgery. 15.History of cervical spine fusion. 16.Attention-deficit disorder/attention-deficit hyperactivity disorder. 17.History of continued ongoing nicotine dependence. DISCHARGE DISPOSITION: The patient will be discharged in stable condition with guarded prognosis. HISTORY OF PRESENT ILLNESS: 49-year-old woman with past medical history of multiple medical problems, was admitted with chest pain, abdominal pain. Cardiology saw the patient. Myocardial infarction ruled out. EGD done by surgery showed duodenitis and gastritis. Biopsies taken. Patient improved significantly. Patient will be discharged in stable condition with guarded prognosis. On exam, vitals are stable. Cardiovascular: S1, S2. Abdomen soft. Nervous System: No focal deficits. DISCHARGE ADVICE AND MEDICATIONS: 1. Diet is cardiac diet. 2. Activity limited until followup. 3. Follow up with Cardiology and surgery as advised. 4. Follow up with primary physician as recommended. DISCHARGE MEDICATIONS ARE: 1. Adderall 30 mg q.a.m. 2. Neurontin 400 mg t.i.d. 3. [place] 10 mg q.6h p.r.n. 4. Doxepin 10 mg q.h.s. 5. Tenormin 50 mg p.o. daily. 6. Habitrol 14 daily. 7. Klonopin 0.5 mg b.i.d. p.r.n. 8. Lipitor 20 mg q.h.s. 9. Omeprazole 40 mg. 10.Restoril 15 mg q.h.s. p.r.n. 11.Tylenol p.r.n. 12.Ultram 50 mg q.6 p.r.n. Once again the patient is being discharged in stable with guarded prognosis. MMODL / IJN: [id number] / [facility]
== END 2019-03-04 14:22 | disposition home or self-care (01) | DRG 392 ==
LOC: EC 12:43 → 1SOBS 15:34 → OBSVTOIN 03-02 11:54 → 4MS4W 03-02 18:11
PROVIDERS: ADMIT Internal Medicine; ATTEND Internal Medicine
PROC: 0DB48ZX Excision of Esophagogastric Junction, Via Natural or Artificial Opening Endoscopic, Diagnostic (ICD-10-PCS; principal; 2019-03-03 07:40)
PROC: 0DB58ZX Excision of Esophagus, Via Natural or Artificial Opening Endoscopic, Diagnostic (ICD-10-PCS; principal; 2019-03-03 07:40)
PROC: 0DB98ZX Excision of Duodenum, Via Natural or Artificial Opening Endoscopic, Diagnostic (ICD-10-PCS; principal; 2019-03-03 07:40)
DX: K29.70 Gastritis, unspecified, without bleeding (principal); K29.80 Duodenitis without bleeding; E78.5 Hyperlipidemia, unspecified; F17.200 Nicotine dependence, unspecified, uncomplicated; F40.240 Claustrophobia; F90.9 Attention-deficit hyperactivity disorder, unspecified type; G89.29 Other chronic pain; I10 Essential (primary) hypertension; I25.10 Atherosclerotic heart disease of native coronary artery without angina pectoris; I25.2 Old myocardial infarction; J44.9 Chronic obstructive pulmonary disease, unspecified; K21.0 Gastro-esophageal reflux disease with esophagitis; K20.8 Other esophagitis; K44.9 Diaphragmatic hernia without obstruction or gangrene; M19.90 Unspecified osteoarthritis, unspecified site; Z79.1 Long term (current) use of non-steroidal anti-inflammatories (NSAID); Z79.82 Long term (current) use of aspirin; Z79.899 Other long term (current) drug therapy; Z80.1 Family history of malignant neoplasm of trachea, bronchus and lung; Z82.3 Family history of stroke; Z82.49 Family history of ischemic heart disease and other diseases of the circulatory system; Z86.14 Personal history of Methicillin resistant Staphylococcus aureus infection; Z86.19 Personal history of other infectious and parasitic diseases; Z87.01 Personal history of pneumonia (recurrent); Z87.442 Personal history of urinary calculi; Z90.49 Acquired absence of other specified parts of digestive tract; Z98.1 Arthrodesis status; Z88.8 Allergy status to other drugs, medicaments and biological substances; Z88.6 Allergy status to analgesic agent; Z91.013 Allergy to seafood
CPT/HCPCS: 36415; 43239; 71046; 71250; 74177; 76700; 80053; 80061; 83036; 83735; 84484; 85025; 85379; 85610; 85730; 88305; 93005; 96374; 96375; 96376; 99285

== ENCOUNTER → 2019-03-15 | Outpatient (CLI) | payer OTHER ==
[2019-03-15 13:29] VITALS: BP 146/94; PULSE 102; RESP 18
--- NOTE | 2019-03-17 13:41 | P.PAINPG ---
Subjective Progress Note Date: 03/15/19 This is a follow-up visit for this 49 year old female with a history of severe and chronic low back pain secondary to lumbar degenerative disc disease, lumbar spondylosis with facet arthropathy, currently she is complaining of severe low back pain with radiation to the right lateral thigh, calf and lateral 3 toes was associated numbness, and she has some weakness in her right lower extremity, which seems to be progressing. The intensity of the pain interfering with her quality of life, she already saw Dr. Darling a spine surgeon and he is in the process of scheduling surgical intervention in the lumbar spine, tentatively for July. She is scheduled to see him again next month. The patient currently on percocet 7.5 /325 every 6 hours, and Neurontin 400 mg 3 times a day, the medications is helping to improve her pain and allowing her to function. Patient denies any side effect of the medication , patient denies any excessive drowsiness or sleepiness, patient denies any suicidal ideation, Review of systems is negative for chest pain, shortness of breath, abdominal pain, malaise, fever, night sweats, chills, homicidal or suicidal ideation, or bowel or bladder incontinence. She would like to continue to wean her narcotic medications. We did discuss that it would be ideal for her to be weaned completely off narcotics prior to surgery. She is amenable to this plan. Physical exam: Vitals: Reviewed in EMR GENERAL: Well appearing, in no acute distress PSYCH: Mood and affect is appropriate. Awake, alert, and oriented SKIN: Skin color, texture, turgor normal, no rashes or lesions HEENT: Normocephalic, atraumatic. EOM intact CV: No pedal edema RESP: Respirations are unlabored, no audible wheezing GI: Abdomen non-distended MUSCULOSKELETAL: 4/5 strength noted throughout right lower extremity-hip flexion and knee extension and flexion ankle dorsi and plantar flexion. No atrophy or tone abnormalities are noted. Lumbar spine: Straight leg raising in the sitting position is positive on the right side for radicular pain. Tenderness to palpation over the lumbar spine and paraspinous muscles. Buttocks: No pain to palpation over the PSIS, sacroiliac joint maneuvers are negative for pain. Extremities: Peripheral joint ROM is full and pain free without obvious instability or laxity in all four extremities. No edema or skin discolorations noted. NEUR: Negative clonus bilaterally. Reduced sensation to light touch noted in right lateral thigh, lateral calf and lateral side of foot. Assessment and plan= chronic low back pain secondary to lumbar degenerative disc disease, and lumbar facet arthropathy, lumbar radiculopathy chronic and current use of high-risk medication (opioids) Patient denies any side effects of the current pain medication and the current treatment/medication helping the patient to do activity of daily living , Diagnoses, prognosis, treatment options, including but not limited to physical therapy, medication management, interventional therapies, and surgery, were discussed with the patient All the questions answered The narcotic consent has been signed at prior visit and patient agreed and understood the side effects and complications of opioid treatment Medication management: 2 prescriptions for Masterson given todayfirst prescription is for Masterson 7.5/325 #90, this is reduced from #120. Second prescription is for Masterson 5/325 #90. We'll plan on continuing to wean the patient off opioids over the next few months. Continue Neurontin 400 mg 3 times a day, dispense 90 with 1 refill. We discussed increasing Neurontin to 600 mg 3 times a day. Once she reduces her narcotic dose, if her pain increases, she was instructed to call the clinic and at that time we can increase her Neurontin dose if necessary. She does experience mild side effects form of sleepiness. She was also counseled extensively on smoking cessation. She has cut down to about 3 cigarettes a day. Patient will follow up in pain clinic in 2 months. MAPS reviewed, and it was appropriate, next visit we will plan on performing urine drug screen Objective - Vital Signs Vital signs: Vital Signs Temp Pulse 102 H 03/15/19 13:25 Resp 18 03/15/19 13:25 BP 146/94 03/15/19 13:25 Pulse Ox 100 03/15/19 13:25 PQRS Measure Charge Sheet Measure #130: Documentation of Current Meds in Medical Chart: Patient's medications documented in chart Measure #226: Tobacco Use: Screen & Cessation Intervention: Pt screened for tobacco use AND intervention given Measure #111: Pneumonia Vaccination: Pneumococcal vaccine NOT administered or previously given Measure #47: Advance Care Plan: Advance care planning discussed & documented, pt chose/unable to give Measure #412: Opioid Treatment Agreement: Documented signed opioid trtmnt agreemnt min once during opioid trtmnt Measure #408: Opioid Therapy Follow-up Evaluation: Patient had f/u eval minimum every 3 months during opioid therapy Measure #317: Preventitive Care & Scrn High Bld Press & F/U: Pre-hypertensive or hypertensive BP documented, pt will f/u with PCP Measure #128: Body Mass Index (BMI) Screening & Follow-up: BMI documented within normal parameters Measure #131: Pain Assessment & Follow-up: Pain positive & plan documented Measure #431: Unhealthy Alcohol Use Preventative Care & Scrn: Patient not identified as an unhealthy alcohol user PQRS Narrative: Smoking Status Current every day smoker Narcotic Agreement Date Signed 09/08/16 Blood Pressure 146/94 Pain Intensity [Right Lower 7 Back] Scale Used Numeric (1 - 10) Hx Alcohol Use (MH) Yes: rare Home Medications: Ambulatory Orders Dextroamphetamine/Amphetamine [Adderall] 30 mg PO QAM 07/30/17 Atenolol [Tenormin] 50 mg PO DAILY 07/29/18 clonazePAM [KlonoPIN] 0.5 mg PO BID PRN #6 tab 10/15/18 Gabapentin [Neurontin] 400 mg PO TID 11/23/18 HYDROcodone/APAP 10-325MG [M[place] 10-325] 1 tab PO Q6HR PRN 11/23/18 Doxepin [SINEquan] 10 mg PO HS 02/28/19 Acetaminophen [Tylenol] 650 mg PO Q4H PRN #30 tab 03/03/19 Omeprazole 40 mg PO DAILY #30 cap 03/03/19 Atorvastatin [Lipitor] 20 mg PO HS #30 tab 03/04/19 Temazepam [Restoril] 15 mg PO HS PRN 3 Days #3 cap 03/04/19 Controlled Substance Measures - Controlled Substance Measures Is patient prescribed a controlled substance at discharge?: Yes When asked, does pt state using other controlled substances?: No If prescribed controlled substance>3 days was MAPS reviewed?: Yes If Rx opioid, was Start Talking consent form obtained?: Yes If opioid is for acute pain is fill amount 7 days or less?: No Was information provided regarding opioid addiction?: Yes
== END | disposition home or self-care (01) ==
LOC: PNWHC3 12:03
PROVIDERS: ATTEND Anesthesiology
DX: M51.16 Intervertebral disc disorders with radiculopathy, lumbar region (principal); M46.96 Unspecified inflammatory spondylopathy, lumbar region; G89.29 Other chronic pain; F17.200 Nicotine dependence, unspecified, uncomplicated; Z79.899 Other long term (current) drug therapy; Z79.891 Long term (current) use of opiate analgesic
CPT/HCPCS: 99211

== ENCOUNTER 2019-04-03 12:31 | Emergency (ER) | payer OTHER ==
[2019-04-03 12:38] VITALS: RESP 16; TEMP 98
[2019-04-03] MEDS ORDERED: SODIUM CHLORIDE 0.9% 1,000 ML IV STA ×2 (13:02)
[2019-04-03] MEDS ORDERED: MORPHINE SULFATE 4 MG/ML SYRINGE IVP STA (13:04)
--- NOTE | 2019-04-03 13:07 | ED ---
Fall HPI - General Chief Complaint: Fall Stated Complaint: rt hip pain Time Seen by Provider: 04/03/19 12:39 Source: EMS, RN notes reviewed, old records reviewed Mode of arrival: EMS - History of Present Illness Initial Comments: Patient is a 49-year-old female who presents emergency department today with multiple complaints. Patient reports that at 3 AM less yesterday evening she was getting out of bed, tripped and fell landing on her right hip. She reports that since then her right leg is been giving out on her when having a hard time walking more than a few steps without severe pain and falling over. Patient states that at that time she also hit her head. She states over the past 2 hours she's had some dizziness complaining of some visual floaters and tunnel vision. Patient states she didn't has no headache at this time. She is on aspirin daily. She reports that she has chronic sciatic pain and is following with the property management assistant. Patient states that she has had no chest pain or shortness of breath as of this time. - Related Data Home Medications Medication Instructions Recorded Confirmed Dextroamphetamine/Amphetamine 30 mg PO QAM 07/30/17 04/03/19 [Adderall] Atenolol [Tenormin] 50 mg PO DAILY 07/29/18 04/03/19 Gabapentin [Neurontin] 400 mg PO TID 11/23/18 04/03/19 Aspirin EC [Ecotrin Low Dose] 81 mg PO DAILY 04/03/19 04/03/19 Doxepin HCl [SINEquan] 100 mg PO HS 04/03/19 04/03/19 Vitamin B Complex 1 cap PO DAILY 04/03/19 04/03/19 Previous Rx's Medication Instructions Recorded clonazePAM [KlonoPIN] 0.5 mg PO BID PRN #6 tab 10/15/18 Cyclobenzaprine [Flexeril] 10 mg PO TID #12 tab 04/03/19 Dexamethasone 0.75 mg PO DAILY #12 tab 04/03/19 Allergies Allergy/AdvReac Type Severity Reaction Status Date / Time ketorolac [From Toradol] Allergy Anaphylaxis Verified 04/03/19 12:52 shellfish derived Allergy Anaphylaxis Verified 04/03/19 12:52 tramadol [From Ultram] Allergy Rash/Hives Verified 04/03/19 12:52 ibuprofen AdvReac Nausea Verified 04/03/19 12:52 morphine AdvReac Nausea Verified 04/03/19 12:52 Review of Systems ROS Statement: Those systems with pertinent positive or pertinent negative responses have been documented in the HPI. ROS Other: All systems not noted in ROS Statement are negative. Past Medical History Past Medical History: COPD, GERD/Reflux, Hypertension, Myocardial Infarction ([place]), Pneumonia, Skin Disorder Additional Past Medical History / Comment(s): chronic back pain, lumbar degenerative disc disease, insomnia, hx shingles, hiatal hernia, kidney stones. 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, migraines,; obstetrical history is significant for 1 miscarriage and 1 term that required a section Last Myocardial Infarction Date:: 08/27/2016 History of Any Multi-Drug Resistant Organisms: MRSA Date of last positivie culture/infection: 09/22/09 MDRO Source:: neck Past Surgical History: Appendectomy, Back Surgery, Section, Cholecystectomy Additional Past Surgical History / Comment(s): Cervical spine fusion with insertion of a metal plate, EGD, colonoscopy, lumbar rhizotomy and radi ofrequency ablation Past Anesthesia/Blood Transfusion Reactions: No Reported Reaction Additional Past Anesthesia/Blood Transfusion Reaction / Comment(s): CLAUSTROPHOBIA Past Psychological History: ADD/ADHD, Anxiety Smoking Status: Current every day smoker Past Alcohol Use History: Rare Past Drug Use History: None Reported - Past Family History Father Family Medical History: Cancer Additional Family Medical History / Comment(s): Father at age 48 from lung cancer. Mother Family Medical History: Congestive Heart Failure (CHF), CVA/TIA Additional Family Medical History / Comment(s): Mother is alive at age 68. She has suffered from a CVA and has chronic back problems. Patient has 2 brothers and 4 sisters with no major medical problems. General Exam - General Exam Comments Initial Comments: 49-year-old female. Her IV EMS. Appears in moderate discomfort. Limitations: physical limitation General appearance: alert, in no apparent distress Head exam: Present: atraumatic, normocephalic, normal inspection Eye exam: Present: normal appearance, PERRL, EOMI. Absent: scleral icterus, conjunctival injection, periorbital swelling ENT exam: Present: normal exam, mucous membranes moist Neck exam: Present: normal inspection. Absent: tenderness, meningismus, lymphadenopathy Respiratory exam: Present: normal lung sounds bilaterally. Absent: respiratory distress, wheezes, rales, rhonchi, stridor Cardiovascular Exam: Present: regular rate, normal rhythm, normal heart sounds. Absent: systolic murmur, diastolic murmur, rubs, gallop, clicks GI/Abdominal exam: Present: soft, normal bowel sounds. Absent: distended, tenderness, guarding, rebound, rigid Extremities exam: Present: normal inspection, full ROM, normal capillary refill, other (Assessment to stop Patient over the right sciatic notch. Tenderness with right leg raise.). Absent: tenderness, pedal edema, joint swelling, calf tenderness Back exam: Present: normal inspection Neurological exam: Present: alert, oriented X3, CN II-XII intact Course Vital Signs 04/03/19 04/03/19 12:34 15:16 Temperature 98.0 F Pulse Rate 98 90 Respiratory 16 16 Rate Blood Pressure 119/90 114/79 O2 Sat by Pulse 99 96 Oximetry Medical Decision Making - Medical Decision Making 49-year-old female presents emergency department today with initial complaint of fall, right hip and lower back and leg pain. History of sciatica and chronic nerve pain. Patient also mentioned multiple complaints: Abdominal pain chest pain visual floaters. Discussed that this is unrelated to her fall. Patient underwent extensive evaluation had lab work obtained WHICH IS UNREMARKABLE. EKG SHOWS NO SIGNIFICANT CHANGE. WITH THE FALL AND MINOR HEAD INJURY CT OF THE BRAIN WAS COMPLETELY NEGATIVE FOR ANY ACUTE PROCESS. HIP AND LUMBAR SPINE X-RAY SHOW NO FRACTURE. Patient at this time has been asking for multiple rounds of pain medication. Discussed that is not appropriate this time for her implants and fracture. Discussed that she can follow-up with her orthopedic and neurolo gy recruiter specialist. Discharged Patient on a short course of a temperature medicine and steroids. Patient understands treatment plan will comply. Return parameters were discussed. - Lab Data Result diagrams: 04/03/19 13:20 04/03/19 14:50 Lab Results 04/03/19 04/03/19 04/03/19 Range/Units 13:20 13:20 13:20 WBC 8.8 (3.8-10.6) k/uL RBC 4.45 (3.80-5.40) m/uL Hgb 14.0 (11.4-16.0) gm/dL Hct 42.1 (34.0-46.0) % MCV 94.6 (80.0-100.0) fL MCH 31.5 (25.0-35.0) pg MCHC 33.3 (31.0-37.0) g/dL RDW 14.9 (11.5-15.5) % Plt Count 324 (150-450) k/uL Neutrophils % (Manual) 48 % Lymphocytes % (Manual) 25 % Monocytes % (Manual) 20 % Eosinophils % (Manual) 6 % Basophils % (Manual) 1 % Neutrophils # (Manual) 4.22 (1.3-7.7) k/uL Lymphocytes # (Manual) 2.20 (1.0-4.8) k/uL Monocytes # (Manual) 1.76 H (0-1.0) k/uL Eosinophils # (Manual) 0.53 (0-0.7) k/uL Basophils # (Manual) 0.09 (0-0.2) k/uL Nucleated RBCs 0 (0-0) /100 WBC Manual Slide Review Performed RBC Morphology Normal PT 9.6 (9.0-12.0) sec INR 0.9 (<1.2) APTT 26.6 (22.0-30.0) sec Sodium (137-145) mmol/L Potassium (3.5-5.1) mmol/L Chloride (98-107) mmol/L Carbon Dioxide (22-30) mmol/L Anion Gap mmol/L BUN (7-17) mg/dL Creatinine (0.52-1.04) mg/dL Est GFR (CKD-EPI)AfAm (>60 ml/min/1.73 sqM) Est GFR (CKD-EPI)NonAf (>60 ml/min/1.73 sqM) Glucose (74-99) mg/dL Calcium (8.4-10.2) mg/dL Magnesium (1.6-2.3) mg/dL Total Bilirubin (0.2-1.3) mg/dL AST (14-36) U/L ALT (9-52) U/L Alkaline Phosphatase (38-126) U/L Troponin I (0.000-0.034) ng/mL NT-Pro-B Natriuret Pep 33 pg/mL Total Protein (6.3-8.2) g/dL Albumin (3.5-5.0) g/dL Amylase (30-110) U/L Lipase (23-300) U/L 04/03/19 04/03/19 Range/Units 14:50 14:50 WBC (3.8-10.6) k/uL RBC (3.80-5.40) m/uL Hgb (11.4-16.0) gm/dL Hct (34.0-46.0) % MCV (80.0-100.0) fL MCH (25.0-35.0) pg MCHC (31.0-37.0) g/dL RDW (11.5-15.5) % Plt Count (150-450) k/uL Neutrophils % (Manual) % Lymphocytes % (Manual) % Monocytes % (Manual) % Eosinophils % (Manual) % Basophils % (Manual) % Neutrophils # (Manual) (1.3-7.7) k/uL Lymphocytes # (Manual) (1.0-4.8) k/uL Monocytes # (Manual) (0-1.0) k/uL Eosinophils # (Manual) (0-0.7) k/uL Basophils # (Manual) (0-0.2) k/uL Nucleated RBCs (0-0) /100 WBC Manual Slide Review RBC Morphology PT (9.0-12.0) sec INR (<1.2) APTT (22.0-30.0) sec Sodium 141 (137-145) mmol/L Potassium 4.5 (3.5-5.1) mmol/L Chloride 108 H (98-107) mmol/L Carbon Dioxide 25 (22-30) mmol/L Anion Gap 8 mmol/L BUN 13 (7-17) mg/dL Creatinine 0.68 (0.52-1.04) mg/dL Est GFR (CKD-EPI)AfAm >90 (>60 ml/min/1.73 sqM) Est GFR (CKD-EPI)NonAf >90 (>60 ml/min/1.73 sqM) Glucose 91 (74-99) mg/dL Calcium 9.3 (8.4-10.2) mg/dL Magnesium 1.8 (1.6-2.3) mg/dL Total Bilirubin 0.2 (0.2-1.3) mg/dL AST 22 (14-36) U/L ALT 21 (9-52) U/L Alkaline Phosphatase 136 H (38-126) U/L Troponin I <0.012 (0.000-0.034) ng/mL NT-Pro-B Natriuret Pep pg/mL Total Protein 6.7 (6.3-8.2) g/dL Albumin 3.8 (3.5-5.0) g/dL Amylase 51 (30-110) U/L Lipase 78 (23-300) U/L 04/03/19 14:24 EKG performed at 1411 shows normal sinus rhythm with T-wave abnormality c onsidering anterior ischemia abnormal EKG noted. Ventricular rate of 96 bpm. Verbal is 160 ms. QRS ration is 84 ms. QT QTc is 354/447 ms. - Radiology Data Radiology results: report reviewed No acute intracranial hemorrhage or mass effect or midline shift is seen. If symptoms persist consider MRI. X-rays negative for acute process. Lumbar spine x-rays multilevel degenerative disc disease spina bifida occulta lumbar sacral junction noted. No fracture dislocation of the right pelvis or hip. Disposition Clinical Impression: Fall, Right sided sciatica Disposition: HOME SELF-CARE Condition: Good Instructions (If sedation given, give patient instructions): Sciatica (ED), Lumbar Radiculopathy (ED) Additional Instructions: Follow-up with your neuro specialist. Return to emergency department if any alarming signs or symptoms occur. Recommended taking the steroids and inflammatory medicines as discussed. Prescriptions: Dexamethasone 0.75 mg PO DAILY #12 tab Cyclobenzaprine [Flexeril] 10 mg PO TID #12 tab Is patient prescribed a controlled substance at d/c from ED?: No Referrals: Joyce Klein DO [Primary Care Provider] - 1-2 days Time of Disposition: 16:10
[2019-04-03 13:30] LABS: HCT 42.1 % (34.0-46.0); MCH 31.5 pg (25.0-35.0); MCHC 33.3 g/dL (31.0-37.0); MCV 94.6 fL (80.0-100.0); Mean Platelet Volume 7.2; Platelet Count 324 k/uL (150-450); RBC 4.45 m/uL (3.80-5.40); RDW 14.9 % (11.5-15.5); WBC 8.8 k/uL (3.8-10.6)
--- NOTE | 2019-04-03 13:56 | XR ---
EXAMINATION TYPE: XR Hip RT and AP Pelvis DATE OF EXAM: 04/03/2019 COMPARISON: CT abdomen and pelvis March 01, 2019. HISTORY: Pelvic and right hip pain after multiple fall injuries. TECHNIQUE: A single AP view of the pelvis is obtained. Two views of the right hip are obtained. FINDINGS: There is no acute fracture/dislocation evident in the pelvis. The hip and sacroiliac join ts appear symmetric and unremarkable. Occasional scattered pelvic phlebolith is demonstrated. Two views of right hip show no acute fracture or dislocation. No focal lytic or sclerotic lesion see n in the proximal right femur. The overlying soft tissue is unremarkable. IMPRESSION: There is no acute fracture or dislocation in the pelvis or right hip.
--- NOTE | 2019-04-03 13:56 | XR ---
EXAM TYPE: LUMBAR SPINE X RAY SERIES COMPARISON: NONE HISTORY: Pain TECHNIQUE: 3 views are submitted. FINDINGS: Alignment is anatomic. The pedicles are intact. The transverse processes are intact. There is no s pondylolisthesis. Calcification lower pole left kidney measuring 2 mm. Spina bifida occulta lumbosac ral junction. Degenerative disc disease with facet arthropathy L4-5 and L5-S1. Atherosclerotic change of the vasculature. IMPRESSION: 1. Multilevel degenerative disc disease. 2. Spina bifida occulta lumbosacral junction..
--- NOTE | 2019-04-03 14:01 | XR ---
EXAMINATION TYPE: XR chest 2V DATE OF EXAM: 04/03/2019 COMPARISON: NONE TECHNIQUE: PA and lateral views submitted. HISTORY: Pain FINDINGS: The lungs are clear and there is no pneumothorax, pleural effusion, or focal pneumonia. Postsurgica l change overlying the cervical spine. Biapical pleural thickening. No overt failure. Surgical clips in the abdomen. Heart size normal. IMPRESSION: 1. No acute process.
[2019-04-03 14:08] LABS: Basophils # (M) 0.09 k/uL (0-0.2); Eosinophils # (M) 0.53 k/uL (0-0.7); Monocytes # (M) 1.76 k/uL (0-1.0); Neutrophils % (M) 48 %; Nucleated Red Blood Cells 0 /100 WBC (0-0); Total Cells Counted 100
--- NOTE | 2019-04-03 14:17 | CT ---
EXAMINATION TYPE: CT brain wo con DATE OF EXAM: 04/03/2019 COMPARISON: 07/10/1980 HISTORY: Syncopal episodes feeling with falling CT DLP: 1011 mGycm Automated exposure control for dose reduction was used. FINDINGS: There is no acute intracranial hemorrhage, mass effect, or midline shift identified. The ventricles and sulci are within normal limits in size. The globes are intact and the visualized sinuses are xochitl ar. Intracranial atherosclerotic changes noted IMPRESSION: No acute intracranial hemorrhage, mass effect, or midline shift is seen. If symptoms persist consider MRI.
[2019-04-03 14:23] LABS: INR 0.9 (<1.2); Partial Thromboplastin Time 26.6 sec (22.0-30.0); Prothrombin Time 9.6 sec (9.0-12.0)
[2019-04-03] MEDS ORDERED: methylPREDNISolone SOD SUCCI 125 MG/2 ML VIAL IV STA (15:02)
[2019-04-03] MEDS ORDERED: HYDROmorphone 1 MG/ML 1 ML SYRINGE IVP STA (15:02)
[2019-04-03 15:17] VITALS: BP 114/79; PULSE 90
[2019-04-03 15:18] LABS: ALT 21 U/L (9-52); AST 22 U/L (14-36); African American GFR (CKD) >90 (>60 ml/min/1.73 sqM); Albumin 3.8 g/dL (3.5-5.0); Alkaline Phosphatase 136 U/L (38-126); Amylase 51 U/L (30-110); Anion Gap 8 mmol/L; Blood Urea Nitrogen 13 mg/dL (7-17); Calcium 9.3 mg/dL (8.4-10.2); Carbon Dioxide 25 mmol/L (22-30); Chloride 108 mmol/L (98-107); Glucose 91 mg/dL (74-99); Magnesium 1.8 mg/dL (1.6-2.3); Potassium 4.5 mmol/L (3.5-5.1); Sodium 141 mmol/L (137-145); Total Bilirubin 0.2 mg/dL (0.2-1.3); Total Protein 6.7 g/dL (6.3-8.2)
[2019-04-03] MEDS ORDERED: CYCLOBENZAPRINE 10MG STARTER 3 TAB BTL PO STA (16:10)
[2019-04-03] MEDS ORDERED: ACET/COD 300 MG/30 MG STARTER PACK 6 TAB BTL PO STA (16:10)
== END 2019-04-03 16:42 | disposition home or self-care (01) ==
LOC: EC 12:31
DX: M54.31 Sciatica, right side (principal); R10.9 Unspecified abdominal pain; R07.9 Chest pain, unspecified; H43.399 Other vitreous opacities, unspecified eye; S09.90XA Unspecified injury of head, initial encounter; F90.9 Attention-deficit hyperactivity disorder, unspecified type; G89.29 Other chronic pain; M54.5 Low back pain; F41.9 Anxiety disorder, unspecified; I10 Essential (primary) hypertension; I25.2 Old myocardial infarction; Z79.82 Long term (current) use of aspirin; Z79.899 Other long term (current) drug therapy; F17.200 Nicotine dependence, unspecified, uncomplicated; Z88.5 Allergy status to narcotic agent; Z88.6 Allergy status to analgesic agent; Z91.013 Allergy to seafood; Z88.8 Allergy status to other drugs, medicaments and biological substances; Z98.1 Arthrodesis status; Z86.14 Personal history of Methicillin resistant Staphylococcus aureus infection; W01.0XXA Fall on same level from slipping, tripping and stumbling without subsequent striking against object, initial encounter; Y93.89 Activity, other specified; Y92.009 Unspecified place in unspecified non-institutional (private) residence as the place of occurrence of the external cause
CPT/HCPCS: 36415; 93005; 83880; 80053; 82150; 83690; 83735; 84484; 85025; 85610; 85730; 72100; 73502; 71046; 70450; 99285; 96374; 96375 ×2; 96361 ×3; J2270; J2930; J1170

== ENCOUNTER 2019-04-07 13:50 | Emergency (ER) | payer OTHER ==
[2019-04-07 14:06] VITALS: BP 136/71; PULSE 89; RESP 18; TEMP 97.2
--- NOTE | 2019-04-07 14:34 | ED ---
Upper Extremity HPI - General Chief Complaint: Extremity Injury, Upper Stated Complaint: wrist injury Time Seen by Provider: 04/07/19 14:03 Source: patient, EMS Mode of arrival: EMS Limitations: no limitations - History of Present Illness Initial Comments: Patient is a 49-year-old female presenting to emergency Department with complaints of a laceration to the right hand as well as pain in the right hand. Patient states prior to arrival she got her hand stuck in a a mixer at home. Patient states she has a laceration on her right index finger and is having pain in her right hand and finger. Patient did go to an urgent care prior to the ER but states she started having nausea and they called an ambulance for her. Patient had 100 of fentanyl in the ambulance as well as Zofran. Patient is still complaining of pain and nausea. No vomiting. Patient denies any other injuries at this time. Upon arrival to ER, vital signs are stable. - Related Data Home Medications Medication Instructions Recorded Confirmed Dextroamphetamine/Amphetamine 30 mg PO QAM 07/30/17 04/03/19 [Adderall] Atenolol [Tenormin] 50 mg PO DAILY 07/29/18 04/03/19 Gabapentin [Neurontin] 400 mg PO TID 11/23/18 04/03/19 Aspirin EC [Ecotrin Low Dose] 81 mg PO DAILY 04/03/19 04/03/19 Doxepin HCl [SINEquan] 100 mg PO HS 04/03/19 04/03/19 Vitamin B Complex 1 cap PO DAILY 04/03/19 04/03/19 Previous Rx's Medication Instructions Recorded clonazePAM [KlonoPIN] 0.5 mg PO BID PRN #6 tab 10/15/18 Cyclobenzaprine [Flexeril] 10 mg PO TID #12 tab 04/03/19 Dexamethasone 0.75 mg PO DAILY #12 tab 04/03/19 Allergies Allergy/AdvReac Type Severity Reaction Status Date / Time ketorolac [From Toradol] Allergy Anaphylaxis Verified 04/03/19 12:52 shellfish derived Allergy Anaphylaxis Verified 04/03/19 12:52 tramadol [From Ultram] Allergy Rash/Hives Verified 04/03/19 12:52 ibuprofen AdvReac Nausea Verified 04/03/19 12:52 morphine AdvReac Nausea Verified 04/03/19 12:52 Review of Systems ROS Statement: Those systems with pertinent positive or pertinent negative responses have been documented in the HPI. ROS Other: All systems not noted in ROS Statement are negative. Past Medical History Past Medical History: COPD, GERD/Reflux, Hypertension, Myocardial Infarction ([place]), Pneumonia, Skin Disorder Additional Past Medical History / Comment(s): chronic back pain, lumbar degenerative disc disease, insomnia, hx shingles, hiatal hernia, kidney stones. 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, migraines,; obstetrical history is significant for 1 miscarriage and 1 term that required a section Last Myocardial Infarction Date:: 08/27/2016 History of Any Multi-Drug Resistant Organisms: MRSA Date of last positivie culture/infection: 09/22/09 MDRO Source:: neck Past Surgical History: Appendectomy, Back Surgery, Section, Cholecystectomy Additional Past Surgical History / Comment(s): Cervical spine fusion with insertion of a metal plate, EGD, colonoscopy, lumbar rhizotomy and radiofrequency ablation Past Anesthesia/Blood Transfusion Reactions: No Reported Reaction Additional Past Anesthesia/Blood Transfusion Reaction / Comment(s): CLAUSTROPHOBIA Past Psychological History: ADD/ADHD, Anxiety Smoking Status: Current every day smoker Past Alcohol Use History: Rare Past Drug Use History: None Reported - Past Family History Father Family Medical History: Cancer Additional Family Medical History / Comment(s): Father at age 48 from lung cancer. Mother Family Medical History: Congestive Heart Failure (CHF), CVA/TIA Additional Family Medical History / Comment(s): Mother is alive at age 68. She has suffered from a CVA and has chronic back problems. Patient has 2 brothers and 4 sisters with no major medical problems. General Exam - General Exam Comments Initial Comments: GENERAL: Patient moaning and groaning in pain. HEAD: Atraumatic, normocephalic. EYES: Pupils equal round and reactive to light, extraocular movements intact, sclera anicteric, conjunctiva are normal. ENT: TMs normal, nares patent, oropharynx clear without exudates. Moist mucous membranes. NECK: Normal range of motion, supple without lymphadenopathy or JVD. LUNGS: Breath sounds clear to auscultation bilaterally and equal. No wheezes rales or rhonchi. HEART: Regular rate and rhythm without murmurs, rubs or gallops. ABDOMEN: Soft, nontender, normoactive bowel sounds. No guarding, no rebound. No masses appreciated. : Deferred EXTREMITIES: Normal range of motion, no pitting or edema. No clubbing or cyanosis. NEUROLOGICAL: Cranial nerves II through XII grossly intact. Normal speech, normal gait. PSYCH: Normal mood, normal affect. SKIN: Warm, Dry, normal turgor. Patient has a superficial 1 cm laceration to the right index finger, medial aspect. There is also a break in the nail. There is blood oozing from the nail bed. Neurovascular intact. Limitations: no limitations Course Vital Signs 04/07/19 13:54 Temperature 97.2 F L Pulse Rate 89 Respiratory 18 Rate Blood Pressure 136/71 O2 Sat by Pulse 96 Oximetry Medical Decision Making - Medical Decision Making Patient is a 49-year-old female arriving via EMS for a laceration on her right index finger prior to arrival. Patient was given 100 fentanyl and Zofran in the ambulance prior to arrival. X-rays reveal no acute fractures. Patient has a superficial 1 cm laceration to the medial aspect of the right index finger as well as a crack in her fingernail. There is blood oozing from the nail bed. Wound was soaked in Betadine and water. Steri-Strips were applied to the laceration and wound was bandaged. Discussed with patient how to keep finger clean. Patient was still moaning and groaning in pain and requesting more pain meds. It was discussed with patient that she has no fractures in her finger or hand as well as a small laceration to her finger and no further pain meds will be given. Patient is stable for discharge at this time. Return parameters were discussed with the patient she verbalized understanding. Case discussed with Dr. Pete. Disposition Clinical Impression: Laceration of right index finger w/o foreign body with damage to nail Disposition: HOME SELF-CARE Condition: Stable Instructions (If sedation given, give patient instructions): Laceration (ED) Additional Instructions: Please return to the Emergency Department if symptoms worsen or any other concerns. Keep wound covered while working. Is patient prescribed a controlled substance at d/c from ED?: No Referrals: Joyce Klein DO [Primary Care Provider] - 1-2 days
[2019-04-07] MEDS ORDERED: LIDOCAINE 1% INJ 10MG/ML (20 ML MDV) SQ ONE (14:36)
--- NOTE | 2019-04-07 14:52 | XR ---
EXAMINATION TYPE: XR wrist complete RT, XR hand complete RT DATE OF EXAM: 04/07/2019 CLINICAL HISTORY: Right wrist and hand pain and laceration of the index finger TECHNIQUE: Frontal, lateral and oblique images of the right hand and wrist are obtained. Scaphoid vi ew was also obtained. COMPARISON: None FINDINGS: There is no acute fracture/dislocation evident in the right wrist. Negative ulnar varianc e is noted. The joint spaces in the right wrist appear aligned however there is minimal joint space n arrowing of the first metacarpal phalangeal joint and radiocarpal joints. Mild soft tissue swelling o f the second digit is seen. IMPRESSION: There is no acute fracture or dislocation in the right hand nor wrist with only mild sof t tissue swelling of the second digit.
== END 2019-04-07 15:54 | disposition home or self-care (01) ==
LOC: EC 13:50
DX: S61.310A Laceration without foreign body of right index finger with damage to nail, initial encounter (principal); I10 Essential (primary) hypertension; F90.9 Attention-deficit hyperactivity disorder, unspecified type; F41.9 Anxiety disorder, unspecified; I25.2 Old myocardial infarction; F17.200 Nicotine dependence, unspecified, uncomplicated; Z79.82 Long term (current) use of aspirin; Z79.899 Other long term (current) drug therapy; Z88.5 Allergy status to narcotic agent; Z88.6 Allergy status to analgesic agent; Z91.013 Allergy to seafood; Z98.1 Arthrodesis status
CPT/HCPCS: 99283

== ENCOUNTER 2019-04-27 13:38 | Inpatient (IN) | payer OTHER ==
--- NOTE | 2019-04-27 14:13 | ED ---
General Adult HPI - General Source: patient, RN notes reviewed Mode of arrival: ambulatory Limitations: no limitations <Ge Ramirez - Last Filed: 04/27/19 16:20> <Meli Feldman - Last Filed: 05/02/19 12:34> - General Chief complaint: GI Bleed Stated complaint: Coughing up blood, abd pain Time Seen by Provider: 04/27/19 13:59 - History of Present Illness Initial comments: 49-year-old female with a past medical history of GERD, COPD, hypertension, [place], chronic back pain presents to the emergency department for a chief complaint of hematemesis. Patient states that she had 2 episodes of vomiting streaked with blood on Wednesday. States she did not have any episodes of vomiting on Wednesday. However on Wednesday she had 3 episodes and then today she had 2 more episodes that contained more blood. States she has epigastric pain as well. Denies diarrhea. Denies melena or hematochezia. Apparently patient had a EGD done 2 months ago and was found to have gastritis. Patient was prescribed omeprazole that time.Patient has no other complaints at this time including shortness of breath, chest pain, abdominal pain, nausea or vomiting, headache, or visual changes. (Ge Ramirez) - Related Data Home Medications Medication Instructions Recorded Confirmed Atenolol [Tenormin] 50 mg PO DAILY 07/29/18 04/27/19 Gabapentin [Neurontin] 400 mg PO TID 11/23/18 04/27/19 Aspirin EC [Ecotrin Low Dose] 81 mg PO DAILY 04/03/19 04/27/19 Doxepin HCl [SINEquan] 100 mg PO HS 04/03/19 04/27/19 Vitamin B Complex 1 cap PO DAILY 04/03/19 04/27/19 ALPRAZolam [Xanax] 1 mg PO BID 04/27/19 04/27/19 HYDROcodone/APAP 10-325MG [[place] 1 tab PO Q6HR PRN 04/27/19 04/27/19 10-325] Lisdexamfetamine Dimesylate 50 mg PO QAM 04/27/19 04/27/19 [Vyvanse] Allergies Allergy/AdvReac Type Severity Reaction Status Date / Time ketorolac [From Toradol] Allergy Anaphylaxis Verified 04/27/19 17:11 shellfish derived Allergy Anaphylaxis Verified 04/27/19 17:11 tramadol [From Ultram] Allergy Rash/Hives Verified 04/27/19 17:11 ibuprofen AdvReac Nausea Verified 04/27/19 17:11 morphine AdvReac Nausea Verified 04/27/19 17:11 Review of Systems ROS Other: All systems not noted in ROS Statement are negative. <Ge Ramirez P - Last Filed: 04/27/19 16:20> ROS Other: All systems not noted in ROS Statement are negative. <Meli Feldman - Last Filed: 05/02/19 12:34> ROS Statement: Those systems with pertinent positive or pertinent negative responses have been documented in the HPI. Past Medical History Past Medical History: COPD, GERD/Reflux, Hypertension, Myocardial Infarction ([place]), Pneumonia, Skin Disorder Additional Past Medical History / Comment(s): chronic back pain, lumbar degenerative disc disease, insomnia, hx shingles, hiatal hernia, kidney stones. 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, migraines,; obstetrical history is significant for 1 miscarriage and 1 term that required a section Last Myocardial Infarction Date:: 08/27/2016 History of Any Multi-Drug Resistant Organisms: MRSA Date of last positivie culture/infection: 09/22/09 MDRO Source:: neck Past Surgical History: Appendectomy, Back Surgery, Section, Cholecystectomy Additional Past Surgical History / Comment(s): Cervical spine fusion with insertion of a metal plate, EGD, colonoscopy, lumbar rhizotomy and radiofrequency ablation Past Anesthesia/Blood Transfusion Reactions: No Reported Reaction Additional Past Anesthesia/Blood Transfusion Reaction / Comment(s): CLAUSTROPHOBIA Past Psychological History: ADD/ADHD, Anxiety Smoking Status: Current every day smoker Past Alcohol Use History: Rare Past Drug Use History: None Reported - Past Family History Father Family Medical History: Cancer Additional Family Medical History / Comment(s): Father at age 48 from lung cancer. Mother Family Medical History: Congestive Heart Failure (CHF), CVA/TIA Additional Family Medical History / Comment(s): Mother is alive at age 68. She has suffered from a CVA and has chronic back problems. Patient has 2 brothers and 4 sisters with no major medical problems. <Ge Ramirez - Last Filed: 04/27/19 16:20> General Exam Limitations: no limitations General appearance: alert, in no apparent distress Head exam: Present: atraumatic, normocephalic, normal inspection Eye exam: Present: normal appearance, PERRL, EOMI. Absent: scleral icterus, conjunctival injection, periorbital swelling ENT exam: Present: normal exam, mucous membranes moist Neck exam: Present: normal inspection, full ROM. Absent: tenderness, meningismus, lymphadenopathy Respiratory exam: Present: normal lung sounds bilaterally. Absent: respiratory distress, wheezes, rales, rhonchi, stridor Cardiovascular Exam: Present: regular rate, normal rhythm, normal heart sounds. Absent: systolic murmur, diastolic murmur, rubs, gallop, clicks GI/Abdominal exam: Present: soft, tenderness (Epigastric tenderness with voluntary guarding), normal bowel sounds. Absent: distended, guarding, rebound, rigid <Ge Ramirez - Last Filed: 04/27/19 16:20> Course <Ge Ramirez - Last Filed: 04/27/19 16:20> Vital Signs 04/27/19 04/27/19 04/27/19 13:50 15:59 17:47 Temperature 98.4 F Pulse Rate 114 H 95 78 Pulse Rate [ Right] Respiratory 24 18 18 Rate Blood Pressure 133/86 127/94 126/84 Blood Pressure [Left Arm] O2 Sat by Pulse 99 100 98 Oximetry 04/27/19 18:14 Temperature 98.2 F Pulse Rate Pulse Rate [ 79 Right] Respiratory 18 Rate Blood Pressure Blood Pressure 119/85 [Left Arm] O2 Sat by Pulse 98 Oximetry - Reevaluation(s) Reevaluation #1: 04/27/19 14:13 She was admitted 2 months ago and had an EGD done which showed gastritis. Patient taking omeprazole. (Ge Ramirez) EKG Findings - EKG Comments: EKG Findings:: Normal sinus rhythm, ventricular rate 99, NV int 52, QTc 451 <Ge Ramirez - Last Filed: 04/27/19 16:20> Medical Decision Making - Lab Data Result diagrams: 04/27/19 14:13 04/27/19 14:13 <Ge Ramirez - Last Filed: 04/27/19 16:20> - Lab Data Result diagrams: 05/02/19 07:36 05/02/19 07:36 <Meli Feldman - Last Filed: 05/02/19 12:34> - Medical Decision Making D1-year-old female with a past medical history of GERD, COPD, hypertension, [place], chronic back pain presents for hematemesis. Patient has had 2 episodes of v omiting so because blood on Wednesday and again on Wednesday. Patient had 2 more episodes of vomiting that were all blood today. Patient has epigastric pain as well. Denies diarrhea. Denies melena or hematochezia. Patient apparently had EGD done 2 months ago was found to have gastritis and put him on omeprazole. Patient states she is taking this. Patient initially tachycardic at 114 over the Cipro for her stay. Vitals are stable. CBC is unremarkable. Hemoglobin is 15.1. CMP unremarkable. Chest x-ray shows no acute process. Given patient's epigastric pain x-ray of the abdomen was obtained to rule out any free air. Discussed case with Dr. Feldman. Patient denies history of alcoholism. At This time patient will be admitted for further evaluation and GI consultation. (Ge Russell) I was available for consultation in the emergency department. The history and physical exam were done by the midlevel provider. I was consulted for this patients care. I reviewed the case with the midlevel provider and based on their presentation of the patient, I agree with the assessment, medical decision making and plan of care as documented. Chart was dictated using [employer] dictation software. Attempts were made to correct any dictation errors however some typographical errors may persist. (Meli Feldman) - Lab Data Lab Results 04/27/19 04/27/19 04/27/19 Range/Units 14:00 14:13 14:13 WBC 10.6 (3.8-10.6) k/uL RBC 4.82 (3.80-5.40) m/uL Hgb 15.1 (11.4-16.0) gm/dL Hct 46.2 H (34.0-46.0) % MCV 95.9 (80.0-100.0) fL MCH 31.3 (25.0-35.0) pg MCHC 32.6 (31.0-37.0) g/dL RDW 12.8 (11.5-15.5) % Plt Count 455 H (150-450) k/uL Neutrophils % 57 % Lymphocytes % 22 % Monocytes % 9 % Eosinophils % 6 % Basophils % 3 % Neutrophils # 6.1 (1.3-7.7) k/uL Lymphocytes # 2.3 (1.0-4.8) k/uL Monocytes # 1.0 (0-1.0) k/uL Eosinophils # 0.7 (0-0.7) k/uL Basophils # 0.3 H (0-0.2) k/uL PT (9.0-12.0) sec INR (<1.2) APTT (22.0-30.0) sec Sodium 143 (137-145) mmol/L Potassium 4.6 (3.5-5.1) mmol/L Chloride 108 H (98-107) mmol/L Carbon Dioxide 25 (22-30) mmol/L Anion Gap 10 mmol/L BUN 10 (7-17) mg/dL Creatinine 0.84 (0.52-1.04) mg/dL Est GFR (CKD-EPI)AfAm >90 (>60 ml/min/1.73 sqM) Est GFR (CKD-EPI)NonAf 81 (>60 ml/min/1.73 sqM) Glucose 93 (74-99) mg/dL Calcium 10.4 H (8.4-10.2) mg/dL Total Bilirubin <0.1 L (0.2-1.3) mg/dL AST 23 (14-36) U/L ALT 21 (9-52) U/L Alkaline Phosphatase 145 H (38-126) U/L Troponin I (0.000-0.034) ng/mL Total Protein 7.6 (6.3-8.2) g/dL Albumin 4.3 (3.5-5.0) g/dL Blood Type Blood Type Confirm O Positive Blood Type Recheck Bld Type Recheck Status Antibody Screen Spec Expiration Date 04/27/19 04/27/19 04/27/19 Range/Units 14:13 14:13 14:13 WBC (3.8-10.6) k/uL RBC (3.80-5.40) m/uL Hgb (11.4-16.0) gm/dL Hct (34.0-46.0) % MCV (80.0-100.0) fL MCH (25.0-35.0) pg MCHC (31.0-37.0) g/dL RDW (11.5-15.5) % Plt Count (150-450) k/uL Neutrophils % % Lymphocytes % % Monocytes % % Eosinophils % % Basophils % % Neutrophils # (1.3-7.7) k/uL Lymphocytes # (1.0-4.8) k/uL Monocytes # (0-1.0) k/uL Eosinophils # (0-0.7) k/uL Basophils # (0-0.2) k/uL PT (9.0-12.0) sec INR (<1.2) APTT 26.6 (22.0-30.0) sec Sodium (137-145) mmol/L Potassium (3.5-5.1) mmol/L Chloride (98-107) mmol/L Carbon Dioxide (22-30) mmol/L Anion Gap mmol/L BUN (7-17) mg/dL Creatinine (0.52-1.04) mg/dL Est GFR (CKD-EPI)AfAm (>60 ml/min/1.73 sqM) Est GFR (CKD-EPI)NonAf (>60 ml/min/1.73 sqM) Glucose (74-99) mg/dL Calcium (8.4-10.2) mg/dL Total Bilirubin (0.2-1.3) mg/dL AST (14-36) U/L ALT (9-52) U/L Alkaline Phosphatase (38-126) U/L Troponin I <0.012 (0.000-0.034) ng/mL Total Protein (6.3-8.2) g/dL Albumin (3.5-5.0) g/dL Blood Type O Positive Blood Type Confirm Blood Type Recheck No Previous Record Bld Type Recheck Status CABO Indicated Antibody Screen NEGATIVE Spec Expiration Date 04/30/2019 - 231204/27/19 04/28/19 04/28/19 Range/Units 14:13 08:20 08:20 WBC 7.5 (3.8-10.6) k/uL RBC 4.35 (3.80-5.40) m/uL Hgb 13.6 (11.4-16.0) gm/dL Hct 42.3 (34.0-46.0) % MCV 97.2 (80.0-100.0) fL MCH 31.3 (25.0-35.0) pg MCHC 32.1 (31.0-37.0) g/dL RDW 12.7 (11.5-15.5) % Plt Count 348 (150-450) k/uL Neutrophils % 57 % Lymphocytes % 25 % Monocytes % 10 % Eosinophils % 5 % Basophils % 1 % Neutrophils # 4.3 (1.3-7.7) k/uL Lymphocytes # 1.8 (1.0-4.8) k/uL Monocytes # 0.7 (0-1.0) k/uL Eosinophils # 0.4 (0-0.7) k/uL Basophils # 0.0 (0-0.2) k/uL PT 9.5 (9.0-12.0) sec INR 0.9 (<1.2) APTT (22.0-30.0) sec Sodium 142 (137-145) mmol/L Potassium 4.5 (3.5-5.1) mmol/L Chloride 107 (98-107) mmol/L Carbon Dioxide 28 (22-30) mmol/L Anion Gap 7 mmol/L BUN 9 (7-17) mg/dL Creatinine 0.81 (0.52-1.04) mg/dL Est GFR (CKD-EPI)AfAm >90 (>60 ml/min/1.73 sqM) Est GFR (CKD-EPI)NonAf 85 (>60 ml/min/1.73 sqM) Glucose 86 (74-99) mg/dL Calcium 9.3 (8.4-10.2) mg/dL Total Bilirubin 0.4 (0.2-1.3) mg/dL AST 27 (14-36) U/L ALT 27 (9-52) U/L Alkaline Phosphatase 103 (38-126) U/L Troponin I (0.000-0.034) ng/mL Total Protein 6.4 (6.3-8.2) g/dL Albumin 3.5 (3.5-5.0) g/dL Blood Type Blood Type Confirm Blood Type Recheck Bld Type Recheck Status Antibody Screen Spec Expiration Date 04/29/19 Range/Units 07:45 WBC 9.4 (3.8-10.6) k/uL RBC 3.87 (3.80-5.40) m/uL Hgb 12.0 (11.4-16.0) gm/dL Hct 38.4 (34.0-46.0) % MCV 99.3 (80.0-100.0) fL MCH 31.1 (25.0-35.0) pg MCHC 31.3 (31.0-37.0) g/dL RDW 12.9 (11.5-15.5) % Plt Count 333 (150-450) k/uL Neutrophils % % Lymphocytes % % Monocytes % % Eosinophils % % Basophils % % Neutrophils # (1.3-7.7) k/uL Lymphocytes # (1.0-4.8) k/uL Monocytes # (0-1.0) k/uL Eosinophils # (0-0.7) k/uL Basophils # (0-0.2) k/uL PT (9.0-12.0) sec INR (<1.2) APTT (22.0-30.0) sec Sodium (137-145) mmol/L Potassium (3.5-5.1) mmol/L Chloride (98-107) mmol/L Carbon Dioxide (22-30) mmol/L Anion Gap mmol/L BUN (7-17) mg/dL Creatinine (0.52-1.04) mg/dL Est GFR (CKD-EPI)AfAm (>60 ml/min/1.73 sqM) Est GFR (CKD-EPI)NonAf (>60 ml/min/1.73 sqM) Glucose (74-99) mg/dL Calcium (8.4-10.2) mg/dL Total Bilirubin (0.2-1.3) mg/dL AST (14-36) U/L ALT (9-52) U/L Alkaline Phosphatase (38-126) U/L Troponin I (0.000-0.034) ng/mL Total Protein (6.3-8.2) g/dL Albumin (3.5-5.0) g/dL Blood Type Blood Type Confirm Blood Type Recheck Bld Type Recheck Status Antibody Screen Spec Expiration Date Disposition Time of Disposition: :20 <Ge Ramirez - Last Filed: 04/27/19 16:20> <Meli Feldman - Last Filed: 05/02/19 12:34> Clinical Impression: Hematemesis Disposition: ADMITTED IP TO THIS HOSP Condition: Fair
[2019-04-27] MEDS ORDERED: ONDANSETRON 4 MG/2 ML VIAL IVP STA (14:14)
[2019-04-27] MEDS ORDERED: SODIUM CHLORIDE 0.9% 1,000 ML IV STA (14:14)
[2019-04-27] MEDS ORDERED: PANTOPRAZOLE 40 MG/10 ML VIAL IVP STA (14:14)
[2019-04-27] MEDS ORDERED: MAG HYDROX/AL HYDROX/SIMETH 30 ML, HYOSCYAMINE ELIXIR 10 ML, CIMETIDINE HCL 300 MG, LID... PO STA ×4 (14:15)
[2019-04-27 14:25] LABS: Basophils # (A) 0.3 k/uL (0-0.2); Basophils % (A) 3 %; Eosinophils # (A) 0.7 k/uL (0-0.7); Eosinophils % (A) 6 %; HCT 46.2 % (34.0-46.0); HGB 15.1 gm/dL (11.4-16.0); Lymphocytes # (A) 2.3 k/uL (1.0-4.8); Lymphocytes % (A) 22 %; MCH 31.3 pg (25.0-35.0); MCHC 32.6 g/dL (31.0-37.0); MCV 95.9 fL (80.0-100.0); Mean Platelet Volume 5.8; Monocytes % (A) 9 %; Neutrophils # (A) 6.1 k/uL (1.3-7.7); Neutrophils % (A) 57 %; Platelet Count 455 k/uL (150-450); RBC 4.82 m/uL (3.80-5.40); RDW 12.8 % (11.5-15.5); WBC 10.6 k/uL (3.8-10.6)
[2019-04-27 14:40] LABS: ALT 21 U/L (9-52); AST 23 U/L (14-36); African American GFR (CKD) >90 (>60 ml/min/1.73 sqM); Albumin 4.3 g/dL (3.5-5.0); Alkaline Phosphatase 145 U/L (38-126); Anion Gap 10 mmol/L; Blood Urea Nitrogen 10 mg/dL (7-17); Calcium 10.4 mg/dL (8.4-10.2); Carbon Dioxide 25 mmol/L (22-30); Chloride 108 mmol/L (98-107); Glucose 93 mg/dL (74-99); Potassium 4.6 mmol/L (3.5-5.1); Sodium 143 mmol/L (137-145); Total Bilirubin <0.1 mg/dL (0.2-1.3); Total Protein 7.6 g/dL (6.3-8.2)
--- NOTE | 2019-04-27 15:13 | XR ---
EXAMINATION TYPE: XR chest 2V DATE OF EXAM: 04/27/2019 COMPARISON: 04/03/2019 TECHNIQUE: PA and lateral views submitted. HISTORY: Hemoptysis FINDINGS: The lungs are clear and there is no pneumothorax, pleural effusion, or focal pneumonia. Postsurgica l change overlying the cervical spine and right upper quadrant of the abdomen. Prominent margin the a nterior first rib stable. No overt failure. IMPRESSION: 1. No acute process.
--- NOTE | 2019-04-27 15:14 | XR ---
EXAMINATION TYPE: XR KUB DATE OF EXAM: 04/27/2019 COMPARISON: 07/06/2018 HISTORY: Epigastric pain TECHNIQUE: One view abdominal series FINDINGS: The osseous structures are intact. The bowel gas pattern is nonspecific. Lung bases are clear. Surg ical clips right upper quadrant. Hypertrophic and degenerative change spine. Arthropathy of the hips. Heterogeneous appearance the inferior pubic rami is stable from prior exam and likely benign. IMPRESSION: 1. Nonspecific abdomen.
[2019-04-27] MEDS ORDERED: HYDROmorphone 0.5 MG/0.5 ML SYRINGE IVP STA (15:32)
[2019-04-27 16:01] LABS: INR 0.9 (<1.2); Prothrombin Time 9.5 sec (9.0-12.0)
[2019-04-27] MEDS ORDERED: NALOXONE 0.4 MG/ML 1 ML VIAL IV PRN (16:21)
[2019-04-27 18:23] VITALS: BMI 27.9
--- NOTE | 2019-04-27 18:42 | P.HPIM ---
History of Present Illness H&P Date: 04/27/19 Chief Complaint: Abdominal pain, hematemesis 49-year-old female with PMH of COPD, hypertension, chronic cervical spine pain status post cervical spine fusion presents the ED for epigastric pain and hematemesis. Patient states that she started vomiting blood on Wednesday. Patient reports about 7 episodes a day associated with nausea. Sometimes, her entire vomitus is red and other times streaks of blood. Patient states last night around 9:30 PM she started experiencing severe abdominal pain. Pain is epigastric, sharp and stabbing in nature. Pain is 10 out of 10 in severity. Pain does not radiate. No alleviating or aggravating factors. Patient underwent EGD in February 2019 which showed no obvious ulcer and inflammation of the duodenum. CT abdomen and pelvis was also done in February which showed findings consistent with peptic ulcer disease. In the ED, vital signs are stable except for pulse of 114. CBC showed platelet count of 455. Coagulation panel was negative. CMP showed chloride of 108, calcium 10.4, alkaline phosphatase 145. Troponin was less than 0.012, EKG showing normal sinus rhythm. Chest x-ray was negative. KUB was nonspecific. Patient is admitted for hematemesis with gastroenterology on consult. Review of Systems Pertinent positives and negatives as discussed in HPI, a complete review of systems was performed and all other systems are negative. Past Medical History Past Medical History: COPD, GERD/Reflux, Hypertension, Myocardial Infarction ([place]), Pneumonia, Skin Disorder Additional Past Medical History / Comment(s): chronic back pain, lumbar degenerative disc disease, insomnia, hx shingles, hiatal hernia, kidney stones. 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, migraines,; obstetrical history is significant for 1 miscarriage and 1 term that required a section Last Myocardial Infarction Date:: 08/27/2016 History of Any Multi-Drug Resistant Organisms: MRSA Date of last positivie culture/infection: 09/22/09 MDRO Source:: neck Past Surgical History: Appendectomy, Back Surgery, Section, Cholecystectomy Additional Past Surgical History / Comment(s): Cervical spine fusion with insertion of a metal plate, EGD, colonoscopy, lumbar rhizotomy and rad iofrequency ablation Past Anesthesia/Blood Transfusion Reactions: No Reported Reaction Additional Past Anesthesia/Blood Transfusion Reaction / Comment(s): CLAUSTROPHOBIA Past Psychological History: ADD/ADHD, Anxiety Additional Psychological History / Comment(s): PT LIVES WITH SIG OTHER OF 25 YEARS. Smoking Status: Current every day smoker Past Alcohol Use History: Rare Additional Past Alcohol Use History / Comment(s): PATIENT STATES SHE STARTED SMOKING AT AGE 16 SMOKES 2 cigaretts per day Past Drug Use History: None Reported - Past Family History Father Family Medical History: Cancer Additional Family Medical History / Comment(s): Father at age 48 from lung cancer. Mother Family Medical History: Congestive Heart Failure (CHF), CVA/TIA Additional Family Medical History / Comment(s): Mother is alive at age 68. She has suffered from a CVA and has chronic back problems. Patient has 2 brothers and 4 sisters with no major medical problems. Medications and Allergies Home Medications Medication Instructions Recorded Confirmed Type Atenolol [Tenormin] 50 mg PO DAILY 07/29/18 04/27/19 History Gabapentin [Neurontin] 400 mg PO TID 11/23/18 04/27/19 History Aspirin EC [Ecotrin Low Dose] 81 mg PO DAILY 04/03/19 04/27/19 History Doxepin HCl [SINEquan] 100 mg PO HS 04/03/19 04/27/19 History Vitamin B Complex 1 cap PO DAILY 04/03/19 04/27/19 History ALPRAZolam [Xanax] 1 mg PO BID 04/27/19 04/27/19 History HYDROcodone/APAP 10-325MG [[place] 1 tab PO Q6HR PRN 04/27/19 04/27/19 History 10-325] Lisdexamfetamine Dimesylate 50 mg PO QAM 04/27/19 04/27/19 History [Vyvanse] Allergies Allergy/AdvReac Type Severity Reaction Status Date / Time ketorolac [From Toradol] Allergy Anaphylaxis Verified 04/27/19 17:11 shellfish derived Allergy Anaphylaxis Verified 04/27/19 17:11 tramadol [From Ultram] Allergy Rash/Hives Verified 04/27/19 17:11 ibuprofen AdvReac Nausea Verified 04/27/19 17:11 morphine AdvReac Nausea Verified 04/27/19 17:11 Physical Exam Vitals: Vital Signs Temp Pulse Pulse Resp BP BP Pulse Ox 04/27/19 18:14 98.2 F 79 18 119/85 98 04/27/19 17:47 78 18 126/84 98 04/27/19 15:59 95 18 127/94 100 04/27/19 13:50 98.4 F 114 H 24 133/86 99 Intake and Output 04/27/19 04/27/19 04/27/19 06:59 14:59 22:59 Other: Weight 67.132 kg General: [non toxic], [no distress], [appears at stated age] Derm: [warm], [dry] Head: [atraumatic], [normocephalic], [symmetric] Eyes: [EOMI], [no lid lag], [anicteric sclera] Mouth: [no lip lesion], [mucus membranes moist] Cardiovascular: [S1S2 reg], [no murmur], [positive DP pulse bilateral], Lungs: [CTA bilateral], [no rhonchi, no rales] , [no accessory muscle use] Abdominal: [soft], [tenderness to palpation in the epigastric area without rebound], [no guarding], [no appreciable organomegaly] Ext: [no gross muscle atrophy], [no edema], [no contractures] Neuro: [ CN II-XI grossly intact], [no focal neuro deficits] Psych: [Alert], [oriented], [appropriate affect] Results CBC & Chem 7: 04/27/19 14:13 04/27/19 14:13 Labs: Abnormal Lab Results - Last 24 Hours (Table) 04/27/19 04/27/19 Range/Units 14:13 14:13 Hct 46.2 H (34.0-46.0) % Plt Count 455 H (150-450) k/uL Basophils # 0.3 H (0-0.2) k/uL Chloride 108 H (98-107) mmol/L Calcium 10.4 H (8.4-10.2) mg/dL Total Bilirubin <0.1 L (0.2-1.3) mg/dL Alkaline Phosphatase 145 H (38-126) U/L Thrombosis Risk Factor Assmnt - Choose All That Apply Each Factor Represents 1 point: Abnormal pulmonary function (COPD), Age 41-60 years, Obesity (BMI >25) Thrombosis Risk Factor Assessment Total Risk Factor Score: 3 Thrombosis Risk Factor Assessment Level: Moderate Risk Assessment and Plan Assessment: Assessment and Plan Hematemesis with epigastric pain, history of gastritis COPD not an acute exacerbation Hypertension Chronic lower back pain post spinal fusion Patient's symptoms appear exaggerated. KUB negative. Gastritis versus peptic ulcer disease. Plans: Nothing by mouth. Protonix 40 mg IV daily. Normal saline at 100 mL per hour. Zofran as needed for nausea or vomiting. Pain control with Dilaudid as needed. Repeat CBC in the morning. Follow gastroenterology recommendations. Plans: Albuterol nebulizer as needed for shortness of breath and wheezing. Plans: Resume atenolol. Monitor vitals, adjust medication as necessary. Plans: Ensure adequate pain control. DVT prophylaxis: [SCD] Discussed with: [Patient] Anticipated discharge: [1-2 days] Anticipated discharge place: [Home] A total of [40] minutes was spent on the care of this complex patient more than 50% of the time was spent in counseling and care coordination. Patient names her significant other [place] decision-maker in the case that she can't make decisions for herself. Patient reiterates wanting to remain full code at this time.
[2019-04-27] MEDS: HYDROmorphone 0.5 MG/0.5 ML SYRINGE IVP PRN ×2 (18:54→21:58)
[2019-04-27] MEDS: SODIUM CHLORIDE 0.9% 1,000 ML IV SCH (19:01)
[2019-04-27] MEDS: DOXEPIN 25 MG CAP PO SCH (20:46)
[2019-04-27] MEDS: GABAPENTIN 400 MG CAP PO SCH (20:46)
[2019-04-27] MEDS: ALPRAZolam 1 MG TAB PO SCH (20:47)
[2019-04-28] MEDS: HYDROmorphone 0.5 MG/0.5 ML SYRINGE IVP PRN ×6 (04:58→21:19)
[2019-04-28] MEDS: SODIUM CHLORIDE 0.9% 1,000 ML IV SCH ×3 (05:19→22:14)
[2019-04-28] MEDS: PANTOPRAZOLE 40 MG/10 ML VIAL IV SCH (08:01)
[2019-04-28] MEDS: ATENOLOL 50 MG TAB PO SCH (08:02)
[2019-04-28] MEDS: ALPRAZolam 1 MG TAB PO SCH ×2 (08:02→21:20)
[2019-04-28] MEDS: GABAPENTIN 400 MG CAP PO SCH ×3 (08:02→21:20)
[2019-04-28] MEDS: ONDANSETRON 4 MG/2 ML VIAL IVP PRN (08:13)
[2019-04-28] MEDS: LISDEXAMFETAMINE DIMESYLATE 50 MG PO SCH (08:15)
[2019-04-28 08:38] LABS: Basophils % (A) 1 %; Eosinophils # (A) 0.4 k/uL (0-0.7); Eosinophils % (A) 5 %; HCT 42.3 % (34.0-46.0); HGB 13.6 gm/dL (11.4-16.0); Lymphocytes # (A) 1.8 k/uL (1.0-4.8); Lymphocytes % (A) 25 %; MCH 31.3 pg (25.0-35.0); MCHC 32.1 g/dL (31.0-37.0); MCV 97.2 fL (80.0-100.0); Mean Platelet Volume 5.6; Monocytes # (A) 0.7 k/uL (0-1.0); Monocytes % (A) 10 %; Neutrophils # (A) 4.3 k/uL (1.3-7.7); Neutrophils % (A) 57 %; Platelet Count 348 k/uL (150-450); RBC 4.35 m/uL (3.80-5.40); RDW 12.7 % (11.5-15.5); WBC 7.5 k/uL (3.8-10.6)
[2019-04-28 08:50] LABS: ALT 27 U/L (9-52); AST 27 U/L (14-36); African American GFR (CKD) >90 (>60 ml/min/1.73 sqM); Albumin 3.5 g/dL (3.5-5.0); Alkaline Phosphatase 103 U/L (38-126); Anion Gap 7 mmol/L; Blood Urea Nitrogen 9 mg/dL (7-17); Calcium 9.3 mg/dL (8.4-10.2); Carbon Dioxide 28 mmol/L (22-30); Chloride 107 mmol/L (98-107); Glucose 86 mg/dL (74-99); Potassium 4.5 mmol/L (3.5-5.1); Sodium 142 mmol/L (137-145); Total Bilirubin 0.4 mg/dL (0.2-1.3); Total Protein 6.4 g/dL (6.3-8.2)
--- NOTE | 2019-04-28 10:03 | P.PN ---
Subjective Progress Note Date: 04/28/19 Principal diagnosis: Hematemesis Patient was seen and examined. No acute events overnight. Patient reports continued abdominal pain, epigastric, 10 out of 10 in severity, requesting additional pain medications. States that Dilaudid alleviates the pain only temporarily. No nausea or vomiting since admission. States that she had a black tarry bowel movement but wasn't witnessed by nursing. She denies any chest pain, shortness of breath or palpitations. No fever or chills. Objective - Vital Signs Vital signs: Vital Signs Temp 97.9 F 04/28/19 05:46 Pulse 80 04/28/19 05:46 Resp 16 04/28/19 05:46 BP 107/74 04/28/19 05:46 Pulse Ox 96 04/28/19 05:46 Intake & Output 04/27/19 04/28/19 04/28/19 18:59 06:59 18:59 Weight 67.132 kg Other: Voiding Method Toilet Toilet # Voids 2 - Exam General: [non toxic], [no distress], [appears at stated age] Derm: [warm], [dry] Head: [atraumatic], [normocephalic], [symmetric] Eyes: [EOMI], [no lid lag], [anicteric sclera] Cardiovascular: [S1S2 reg], [no murmur], [positive DP pulse bilateral], Lungs: [CTA bilateral], [no rhonchi, no rales] , [no accessory muscle use] Abdominal: [soft], [tenderness to palpation in the epigastric area without rebound], [no guarding], [no appreciable organomegaly] Ext: [no gross muscle atrophy], [no edema], [no contractures] Neuro: [no focal neuro deficits] Psych: [Alert], [oriented], [appropriate affect] - Labs CBC & Chem 7: 04/28/19 08:20 04/28/19 08:20 Labs: Abnormal Lab Results - Last 24 Hours (Table) 04/27/19 04/27/19 Range/Units 14:13 14:13 Hct 46.2 H (34.0-46.0) % Plt Count 455 H (150-450) k/uL Basophils # 0.3 H (0-0.2) k/uL Chloride 108 H (98-107) mmol/L Calcium 10.4 H (8.4-10.2) mg/dL Total Bilirubin <0.1 L (0.2-1.3) mg/dL Alkaline Phosphatase 145 H (38-126) U/L Assessment and Plan Assessment: Assessment and Plan Hematemesis with epigastric pain, history of gastritis COPD not an acute exacerbation Hypertension Chronic lower back pain post spinal fusion Patient's symptoms appear exaggerated. KUB negative. Gastritis versus peptic ulcer disease. Hemoglobin stable around 13, decreased today from admission due to dilution from IVF. Plans: Nothing by mouth. Protonix 40 mg IV daily. Normal saline at 100 mL per hour. Zofran as needed for nausea or vomiting. Pain control with Dilaudid as needed. Repeat CBC in the morning. Follow gastroenterology and surgery recommendations. Plans: Albuterol nebulizer as needed for shortness of breath and wheezing. Plans: Resume atenolol. Monitor vitals, adjust medication as necessary. Plans: Ensure adequate pain control. [Surgery consulted for possible endoscopy. Pending GI evaluation. Hemoglobin remained stable. Likely DC in 1-2 days.]
[2019-04-28] MEDS: DOXEPIN 25 MG CAP PO SCH (21:20)
[2019-04-29] MEDS: HYDROmorphone 0.5 MG/0.5 ML SYRINGE IVP PRN ×7 (00:33→20:06)
[2019-04-29] MEDS: ATENOLOL 50 MG TAB PO SCH (07:32)
[2019-04-29] MEDS: ALPRAZolam 1 MG TAB PO SCH ×2 (07:32→21:06)
[2019-04-29] MEDS: GABAPENTIN 400 MG CAP PO SCH ×3 (07:32→21:06)
[2019-04-29] MEDS: SODIUM CHLORIDE 0.9% 1,000 ML IV SCH ×3 (07:32→22:10)
[2019-04-29] MEDS: LISDEXAMFETAMINE DIMESYLATE 50 MG PO SCH (07:33)
[2019-04-29] MEDS: PANTOPRAZOLE 40 MG/10 ML VIAL IV SCH ×2 (07:33→21:06)
[2019-04-29 08:07] LABS: HCT 38.4 % (34.0-46.0); MCH 31.1 pg (25.0-35.0); MCHC 31.3 g/dL (31.0-37.0); MCV 99.3 fL (80.0-100.0); Mean Platelet Volume 6.3; Platelet Count 333 k/uL (150-450); RBC 3.87 m/uL (3.80-5.40); RDW 12.9 % (11.5-15.5); WBC 9.4 k/uL (3.8-10.6)
--- NOTE | 2019-04-29 08:43 | P.PN ---
Subjective Progress Note Date: 04/29/19 Principal diagnosis: Melena Patient was seen and examined. No acute events overnight. Patient continues to report excruciating 10 out of 10 epigastric discomfort without radiation. Pain is stabbing in nature. Unchanged from initial presentation. States the Dilaudid only works for 1 hour, requesting increase in pain medication. No more hematemesis, nausea or vomiting. States that she had a black tarry liquid bowel movement last night. She denies any chest pain, shortness of breath or palpitations. No fever or chills. Objective - Vital Signs Vital signs: Vital Signs Temp 99.2 F 04/29/19 05:04 Pulse 80 04/29/19 05:04 Resp 18 04/29/19 05:04 BP 102/72 04/29/19 05:04 Pulse Ox 93 L 04/29/19 05:04 Intake & Output 04/28/19 04/29/19 04/29/19 18:59 06:59 18:59 Intake Total 820 Balance 820 Intake: Intake, IV Titration 400 Amount Sodium Chloride 0.9% 1, 400 000 ml @ 100 mls/hr IV . Q10H [facility] Rx#:[id number] Oral 420 Other: Voiding Method Toilet Toilet # Voids 3 3 # Bowel Movements 1 - Exam General: [non toxic], [no distress], [appears at stated age] Derm: [warm], [dry] Head: [atraumatic], [normocephalic], [symmetric] Eyes: [EOMI], [no lid lag], [anicteric sclera] Cardiovascular: [S1S2 reg], [no murmur], [positive DP pulse bilateral], Lungs: [CTA bilateral], [no rhonchi, no rales] , [no accessory muscle use] Abdominal: [soft], [tenderness to palpation in the epigastric area without rebound], [no guarding], [no appreciable organomegaly] Ext: [no gross muscle atrophy], [no edema], [no contractures] Neuro: [no focal neuro deficits] Psych: [Alert], [oriented], [appropriate affect] - Labs CBC & Chem 7: 04/29/19 07:45 04/28/19 08:20 Assessment and Plan Assessment: Assessment and Plan Hematemesis with epigastric pain, history of gastritis COPD not an acute exacerbation Hypertension Chronic lower back pain post spinal fusion Patient's symptoms appear exaggerated. KUB negative. Gastritis versus peptic ulcer disease. Hemoglobin downtrending from 15.1-13.6-12.0, decreased today partially due to dilution from IVF. Plans: Clear liquid diet. Protonix 40 mg IV daily. Normal saline at 100 mL per hour. Zofran as needed for nausea or vomiting. Pain control with Dilaudid as needed. Stool for occult blood. Repeat CBC in the morning. Follow gastroenterology and surgery recommendations. Plans: Albuterol nebulizer as needed for shortness of breath and wheezing. BP 102/72. Plans: Resume atenolol. Monitor vitals, adjust medication as necessary. Plans: Ensure adequate pain control. [Awaiting surgery recommendations for possible endoscopy. Discussed with RN, will attempt to get a hold of surgery. Hemoglobin slowly downtrending. Pain appears exaggerated. Likely DC in 1-2 days.]
--- NOTE | 2019-04-29 09:01 | P.GSCN ---
History of Present Illness Consult date: 04/29/19 Reason for Consult: Epigastric pain, nausea History of present illness: This a 49-year-old female who has complaints of epigastric pain nausea. Patient has a previous history of GERD. She had a similar admission several months ago. At that time her EGD showed evidence of esophagitis and some mild duodenitis. Patient states that she has had some severe pain requiring narcotic medications. She thinks she may have an ulcer. Past Medical History Past Medical History: COPD, GERD/Reflux, Hypertension, Myocardial Infarction ([place]), Pneumonia, Skin Disorder Additional Past Medical History / Comment(s): chronic back pain, lumbar degenerative disc disease, insomnia, hx shingles, hiatal hernia, kidney stones. 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, migraines,; obstetrical history is significant for 1 miscarriage and 1 term that required a section Last Myocardial Infarction Date:: 08/27/2016 History of Any Multi-Drug Resistant Organisms: MRSA Year Discovered:: 09/22/09 MDRO Source:: neck Past Surgical History: Appendectomy, Back Surgery, Section, Cholecystectomy Additional Past Surgical History / Comment(s): Cervical spine fusion with insertion of a metal plate, EGD, colonoscopy, lumbar rhizotomy and radiofreque ncy ablation Past Anesthesia/Blood Transfusion Reactions: No Reported Reaction Additional Past Anesthesia/Blood Transfusion Reaction / Comm: CLAUSTROPHOBIA Past Psychological History: ADD/ADHD, Anxiety Additional Psychological History / Comment(s): PT LIVES WITH SIG OTHER OF 25 YEARS. Smoking Status: Current every day smoker Past Alcohol Use History: Rare Additional Past Alcohol Use History / Comment(s): PATIENT STATES SHE STARTED SMOKING AT AGE 16 SMOKES 2 cigaretts per day Past Drug Use History: None Reported - Past Family History Father Family Medical History: Cancer Additional Family Medical History / Comment(s): Father at age 48 from lung cancer. Mother Family Medical History: Congestive Heart Failure (CHF), CVA/TIA Additional Family Medical History / Comment(s): Mother is alive at age 68. She has suffered from a CVA and has chronic back problems. Patient has 2 brothers and 4 sisters with no major medical problems. Medications and Allergies Home Medications Medication Instructions Recorded Confirmed Type Atenolol [Tenormin] 50 mg PO DAILY 07/29/18 04/27/19 History Gabapentin [Neurontin] 400 mg PO TID 11/23/18 04/27/19 History Aspirin EC [Ecotrin Low Dose] 81 mg PO DAILY 04/03/19 04/27/19 History Doxepin HCl [SINEquan] 100 mg PO HS 04/03/19 04/27/19 History Vitamin B Complex 1 cap PO DAILY 04/03/19 04/27/19 History ALPRAZolam [Xanax] 1 mg PO BID 04/27/19 04/27/19 History HYDROcodone/APAP 10-325MG [[place] 1 tab PO Q6HR PRN 04/27/19 04/27/19 History 10-325] Lisdexamfetamine Dimesylate 50 mg PO QAM 04/27/19 04/27/19 History [Vyvanse] Allergies Allergy/AdvReac Type Severity Reaction Status Date / Time ketorolac [From Toradol] Allergy Anaphylaxis Verified 04/27/19 17:11 shellfish derived Allergy Anaphylaxis Verified 04/27/19 17:11 tramadol [From Ultram] Allergy Rash/Hives Verified 04/27/19 17:11 ibuprofen AdvReac Nausea Verified 04/27/19 17:11 morphine AdvReac Nausea Verified 04/27/19 17:11 Surgical - Exam Vital Signs Temp Pulse Resp BP Pulse Ox 98.4 F 114 H 24 133/86 99 04/27/19 13:50 04/27/19 13:50 04/27/19 13:50 04/27/19 13:50 04/27/19 13:50 - General well developed, well nourished, no distress - Eyes PERRL - ENT normal pinna - Neck no masses - Respiratory normal expansion - Cardiovascular Rhythm: regular - Abdomen Millimeters 10 her. There is no rebound or guarding Abdomen: soft Results - Labs 04/29/19 07:45 04/28/19 08:20 Assessment and Plan Assessment: Possible gastritis. Patient will undergo EGD on Wednesday.
[2019-04-29] MEDS: HYDROcodone/APAP 10-325MG 1 EACH TAB PO PRN ×3 (09:20→22:09)
--- NOTE | 2019-04-29 11:55 | P.CONS ---
History of Present Illness - Reason for Consult Consult date: 04/28/19 Abdominal pain Requesting physician: Olaf Lay - Chief Complaint Nausea and vomiting, abdominal pain - History of Present Illness 49-year-old female with a medical history significant for hypertension, COPD, chronic back pain and gastritis who presented to the hospital with complaints of abdominal pain, vomiting and hematemesis. The patient reports frequent vomiting since the beginning of the week. She reports blood streaking with the vomit. Vomiting has been occurring with oral intake and in between eating and drinking. She also reports epigastric abdominal pain described as sharp and stabbing in nature. His been constant and waxing and waning in intensity. She reports bowel movements have been daily and normal in color and caliber. She previously had EGD performed for evaluation of CT findings suggestive of peptic ulcer disease on 03/13/2019 with findings of gastritis and duodenitis. Laboratory evaluation on presentation was significant for hemoglobin 13.6, WBC 7.5, platelet count 348,000, total bilirubin 0.4, alkaline phosphatase 103, AST 27 and ALTs 27. Review of Systems REVIEW OF SYSTEMS: CONSTITUTIONAL: Denies any fevers, chills, weight change or fatigue. CARDIOVASCULAR: Denies any chest pain, palpitations high or low blood pressures RESPIRATORY: Denies any shortness of breath, hemoptysis or cough. GENITOURINARY: No dysuria or hematuria. MUSCULOSKELETAL: No weakness reported. SKIN: Denies any new rashes or lesions, jaundice or pallor. PSYCHIATRIC: Denies any depression or anxiety. NEUROLOGY: Denies headache, denies any new focal deficits. EARS/NOSE/THROAT: No recent hearing change, congestion, nasal discharge or sore throat. EYES: No pain in eyes, discharge or change in vision. GASTROINTESTINAL: As per HPI. Past Medical History Past Medical History: COPD, GERD/Reflux, Hypertension, Myocardial Infarction ([place]), Pneumonia, Skin Disorder Additional Past Medical History / Comment(s): chronic back pain, lumbar degenerative disc disease, insomnia, hx shingles, hiatal hernia, kidney stones. 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, migraines,; obstetrical history is significant for 1 miscarriage and 1 term that required a section Last Myocardial Infarction Date:: 08/27/2016 History of Any Multi-Drug Resistant Organisms: MRSA Year Discovered:: 09/22/09 MDRO Source:: neck Past Surgical History: Appendectomy, Back Surgery, Section, Cholecystectomy Additional Past Surgical History / Comment(s): Cervical spine fusion with insertion of a metal plate, EGD, colonoscopy, lumbar rhizotomy and radiofrequency ablation Past Anesthesia/Blood Transfusion Reactions: No Reported Reaction Additional Past Anesthesia/Blood Transfusion Reaction / Comm: CLAUSTROPHOBIA Past Psychological History: ADD/ADHD, Anxiety Additional Psychological History / Comment(s): PT LIVES WITH SIG OTHER OF 25 YEARS. Smoking Status: Current every day smoker Past Alcohol Use History: Rare Additional Past Alcohol Use History / Comment(s): PATIENT STATES SHE STARTED SMOKING AT AGE 16 SMOKES 2 cigaretts per day Past Drug Use History: None Reported - Past Family History Father Family Medical History: Cancer Additional Family Medical History / Comment(s): Father at age 48 from lung cancer. Mother Family Medical History: Congestive Heart Failure (CHF), CVA/TIA Additional Family Medical History / Comment(s): Mother is alive at age 68. She has suffered from a CVA and has chronic back problems. Patient has 2 brothers and 4 sisters with no major medical problems. Medications and Allergies Home Medications Medication Instructions Recorded Confirmed Type Atenolol [Tenormin] 50 mg PO DAILY 07/29/18 04/27/19 History Gabapentin [Neurontin] 400 mg PO TID 11/23/18 04/27/19 History Aspirin EC [Ecotrin Low Dose] 81 mg PO DAILY 04/03/19 04/27/19 History Doxepin HCl [SINEquan] 100 mg PO HS 04/03/19 04/27/19 History Vitamin B Complex 1 cap PO DAILY 04/03/19 04/27/19 History ALPRAZolam [Xanax] 1 mg PO BID 04/27/19 04/27/19 History HYDROcodone/APAP 10-325MG [[place] 1 tab PO Q6HR PRN 04/27/19 04/27/19 History 10-325] Lisdexamfetamine Dimesylate 50 mg PO QAM 04/27/19 04/27/19 History [Vyvanse] Allergies Allergy/AdvReac Type Severity Reaction Status Date / Time ketorolac [From Toradol] Allergy Anaphylaxis Verified 04/27/19 17:11 shellfish derived Allergy Anaphylaxis Verified 04/27/19 17:11 tramadol [From Ultram] Allergy Rash/Hives Verified 04/27/19 17:11 ibuprofen AdvReac Nausea Verified 04/27/19 17:11 morphine AdvReac Nausea Verified 04/27/19 17:11 Physical Exam Vitals: Vital Signs Temp Pulse Resp BP Pulse Ox 04/29/19 05:04 99.2 F 80 18 102/72 93 L 04/29/19 00:00 81 18 04/28/19 21:17 98.6 F 81 18 94/59 93 L 04/28/19 11:57 98.4 F 69 15 87/56 94 L Intake and Output 04/28/19 04/29/19 04/29/19 22:59 06:59 14:59 Intake Total 820 Balance 820 Intake: Intake, IV Titration 400 Amount Sodium Chloride 0.9% 1, 400 000 ml @ 100 mls/hr IV . Q10H [facility] Rx#:[id number] Oral 420 Other: Voiding Method Toilet Toilet Toilet # Voids 2 3 # Bowel Movements 1 On physical examination, patient appears comfortable in no apparent distress. HEAD: Normocephalic, atraumatic. EYES: No scleral icterus. No conjunctival injection. MOUTH: No lesions, tongue midline. NECK: Trachea midline, no gross abnormalities. CHEST: Clear to auscultation with no wheezing or rhonchi appreciated. HEART: Regular rate and rhythm. ABDOMEN: Soft, obese, tender to palpation. Bowel sounds are positive. No organomegaly. No guarding or rigidity. EXTREMITIES: No pedal edema. SKIN: No rashes, no jaundice. NEUROLOGIC: Alert and oriented x3. No focal deficits. Results CBC & Chem 7: 04/29/19 07:45 04/28/19 08:20 Abdominal x-ray: report reviewed (Nonspecific abdomen on KUB x-ray) Assessment and Plan (1) Abdominal pain Narrative/Plan: 49-year-old female with multiple medical comorbidities presenting with c omplaints of nausea, vomiting, hematemesis and abdominal pain. The patient previously had similar symptoms in February at which time CT was concerning for peptic ulcer disease and EGD was performed with findings of gastritis and duodenitis. She is status post cholecystectomy. The pain appears to be in the epigastric region and nonspecific nature described as waxing and waning in intensity and sharp in quality. Currently being seen by the surgical service with plans for EGD on Wednesday. Unclear if there is a functional component to her pain. Current Visit: Yes Status: Acute Code(s): R10.9 - UNSPECIFIED ABDOMINAL PAIN SNOMED Code(s): 19079317 (2) Hematemesis Current Visit: Yes Status: Acute Code(s): K92.0 - HEMATEMESIS SNOMED Code(s): 1513256 Plan: Supportive care Liquid diet started, advance as tolerated Protonix increased from daily to twice daily Bentyl 20 mg 4 times a day added Surgical service following and plan for EGD on Wednesday, we'll defer to their service for further management Thank you for allowing us to participate in the care of the patient, the GI service will stand by, please call us back with any questions or concerns
[2019-04-29] MEDS: DICYCLOMINE 20 MG TAB PO SCH ×3 (12:33→21:05)
[2019-04-29] MEDS: DOXEPIN 25 MG CAP PO SCH (21:04)
--- NOTE | 2019-04-29 21:51 | P.PN ---
Subjective Progress Note Date: 04/29/19 Principal diagnosis: Abdominal pain, hematemesis Patient seen lying in bed. He tolerated her diet. Still reporting abdominal pain. Reports her bowel movement yesterday. No further episodes of hematemesis. Objective - Vital Signs Vital signs: Vital Signs Temp 98.5 F 04/29/19 11:57 Pulse 73 04/29/19 11:57 Resp 17 04/29/19 11:57 BP 99/68 04/29/19 11:57 Pulse Ox 94 L 04/29/19 11:57 Intake & Output 04/28/19 04/29/19 04/29/19 18:59 06:59 18:59 Intake Total 820 Balance 820 Intake: Intake, IV Titration 400 Amount Sodium Chloride 0.9% 1, 400 000 ml @ 100 mls/hr IV . Q10H [facility] Rx#:[id number] Oral 420 Other: Voiding Method Toilet Toilet Toilet # Voids 3 3 # Bowel Movements 1 - Exam On physical examination, patient appears comfortable in no apparent distress. HEAD: Normocephalic, atraumatic. EYES: No scleral icterus. No conjunctival injection. MOUTH: No lesions, tongue midline. NECK: Trachea midline, no gross abnormalities. CHEST: Clear to auscultation with no wheezing or rhonchi appreciated. HEART: Regular rate and rhythm. ABDOMEN: Soft, obese, mildly tender to palpation. Bowel sounds are positive. No organomegaly. No guarding or rigidity. EXTREMITIES: No pedal edema. SKIN: No rashes, no jaundice. NEUROLOGIC: Alert and oriented x3. No focal deficits. - Labs CBC & Chem 7: 04/29/19 07:45 04/28/19 08:20 Assessment and Plan (1) Abdominal pain Narrative/Plan: 49-year-old female with multiple medical comorbidities presenting with complaints of nausea, vomiting, hematemesis and abdominal pain. The patient previously had similar symptoms in February at which time CT was concerning for peptic ulcer disease and EGD was performed with findings of gastritis and duodenitis. She is status post cholecystectomy. The pain appears to be in the epigastric region and nonspecific nature described as waxing and waning in intensity and sharp in quality. Currently being seen by the surgical service with plans for EGD on Wednesday. Unclear if there is a functional component to her pain. Current Visit: Yes Status: Acute Code(s): R10.9 - UNSPECIFIED ABDOMINAL PAIN SNOMED Code(s): 31539473 (2) Hematemesis Current Visit: Yes Status: Acute Code(s): K92.0 - HEMATEMESIS SNOMED Code(s): 6890790 Plan: Supportive care Liquid diet started, advance as tolerated Protonix increased twice daily Bentyl 20 mg 4 times a day Surgical service following and plan for EGD on Wednesday, we'll defer to their service for further management Thank you for allowing us to participate in the care of the patient, the GI serv ice will stand by, please call us back with any questions or concerns
[2019-04-30] MEDS: HYDROmorphone 0.5 MG/0.5 ML SYRINGE IVP PRN ×7 (01:10→23:07)
[2019-04-30] MEDS: GABAPENTIN 400 MG CAP PO SCH ×3 (07:34→22:06)
[2019-04-30] MEDS: DICYCLOMINE 20 MG TAB PO SCH ×4 (07:34→22:06)
[2019-04-30] MEDS: HYDROcodone/APAP 10-325MG 1 EACH TAB PO PRN ×3 (07:34→22:06)
[2019-04-30] MEDS: ATENOLOL 50 MG TAB PO SCH (07:34)
[2019-04-30] MEDS: LISDEXAMFETAMINE DIMESYLATE 50 MG PO SCH (07:34)
[2019-04-30] MEDS: PANTOPRAZOLE 40 MG/10 ML VIAL IV SCH ×2 (07:34→20:05)
[2019-04-30] MEDS: ALPRAZolam 1 MG TAB PO SCH ×2 (07:34→20:04)
--- NOTE | 2019-04-30 08:43 | P.PN ---
Progress Note - Text Progress Note Date: 04/30/19 The patient still has complaints of epigastric pain. Her hemoglobin is 12. On exam her vital signs are stable. Her abdomen is soft. There is minimal epigastric. Patient will be scheduled for EGD in the a.m to evaluate for possible gastritis.
--- NOTE | 2019-04-30 09:58 | P.PN ---
Subjective Progress Note Date: 04/30/19 Principal diagnosis: Melena Patient was seen and examined. No acute events overnight. Patient continues to report excruciating 7 out of 10 epigastric discomfort without radiation. Pain is stabbing in nature. Unchanged from initial presentation. Requesting increase in Dilaudid from 0.5 mg to 1mg. No more hematemesis, nausea or vomiting. No bowel movement since yesterday. She denies any chest pain, shortness of breath or palpitations. No fever or chills. Objective - Vital Signs Vital signs: Vital Signs Temp 97.6 F 04/30/19 05:00 Pulse 69 04/30/19 05:00 Resp 18 04/30/19 05:00 BP 106/74 04/30/19 05:00 Pulse Ox 93 L 04/30/19 05:00 Intake & Output 04/29/19 04/30/19 04/30/19 18:59 06:59 18:59 Intake Total 800 1020 Balance 800 1020 Intake: Intake, IV Titration 800 600 Amount Sodium Chloride 0.9% 1, 800 600 000 ml @ 100 mls/hr IV . Q10H [facility] Rx#:[id number] Oral 420 Other: Voiding Method Toilet Toilet # Voids 2 3 - Exam General: [non toxic], [no distress], [appears at stated age] Derm: [warm], [dry] Head: [atraumatic], [normocephalic], [symmetric] Eyes: [EOMI], [no lid lag], [anicteric sclera] Cardiovascular: [S1S2 reg], [no murmur], [positive DP pulse bilateral], Lungs: [CTA bilateral], [no rhonchi, no rales] , [no accessory muscle use] Abdominal: [soft], [tenderness to palpation in the epigastric area without rebound], [no guarding], [no appreciable organomegaly] Ext: [no gross muscle atrophy], [no edema], [no contractures] Neuro: [no focal neuro deficits] Psych: [Alert], [oriented], [appropriate affect] - Labs CBC & Chem 7: 04/29/19 07:45 04/28/19 08:20 Assessment and Plan Assessment: Assessment and Plan Hematemesis with epigastric pain, history of gastritis COPD not an acute exacerbation Hypertension Chronic lower back pain post spinal fusion Patient's symptoms appear exaggerated. KUB negative. Gastritis versus peptic ulcer disease. Hemoglobin downtrending from 15.1-13.6-12.0, decreased today partially due to dilution from IVF. Plans: Clear liquid diet. Protonix 40 mg IV daily. DC IVF and encourage hydration by mouth. Zofran as needed for nausea or vomiting. Pain control with Dilaudid as needed. Stool for occult blood. Repeat CBC in the morning. Follow gastroenterology and surgery recommendations. Plans: Albuterol nebulizer as needed for shortness of breath and wheezing. BP 106/74. Plans: Resume atenolol. Monitor vitals, adjust medication as necessary. Plans: Ensure adequate pain control. [EGD planned for tomorrow. Plans for DC tomorrow after EGD.]
[2019-04-30 10:08] LABS: HCT 38.5 % (34.0-46.0); HGB 12.2 gm/dL (11.4-16.0); Hypochromasia Slight; MCH 32.2 pg (25.0-35.0); MCHC 31.7 g/dL (31.0-37.0); MCV 101.6 fL (80.0-100.0); Macrocytosis Slight; Mean Platelet Volume 7.1; Platelet Count 306 k/uL (150-450); RBC 3.78 m/uL (3.80-5.40); RDW 12.8 % (11.5-15.5); WBC 10.9 k/uL (3.8-10.6)
[2019-04-30] MEDS: ACETAMINOPHEN TAB 325 MG TAB PO PRN (12:35)
--- NOTE | 2019-04-30 13:01 | XR ---
EXAMINATION TYPE: XR chest 2V DATE OF EXAM: 04/30/2019 HISTORY: Fever of unkown origin. REFERENCE: Previous study dated 04/27/2019. FINDINGS: There has been an ACDF of the lower cervical spine. There is some platelike atelectasis in the right upper lobe. There is a developing opacity in the lef t lower lung. Heart size upper limits of normal. Pleural spaces are clear. IMPRESSION: 1. PLATELIKE ATELECTASIS BILATERALLY LOBE. 2. I CANNOT EXCLUDE A DEVELOPING PNEUMONIA LEFT LUNG BASE.
[2019-04-30 16:49] LABS: Appearance,Urine Clear (Clear); Bacteria,Urine Rare /hpf; Bilirubin,Urine Negative (Negative); Blood,Urine Small (Negative); Color,Urine Light Yellow; Glucose,Urine (UA) Negative (Negative); Ketones,Urine Negative (Negative); Leukocyte Esterase,Urine Negative (Negative); Mucus,Urine Rare /hpf; Nitrite,Urine Negative (Negative); Protein,Urine Negative (Negative); RBC,Urine 3 /hpf (0-5); Specific Gravity,Urine 1.006 (1.001-1.035); Squamous Epithelial Cell,Urine <1 /hpf (0-4); Urobilinogen,Urine <2.0 mg/dL (<2.0)
[2019-04-30] MEDS: ONDANSETRON 4 MG/2 ML VIAL IVP PRN (20:05)
[2019-04-30] MEDS: DOXEPIN 25 MG CAP PO SCH (21:09)
[2019-05-01] MEDS: HYDROmorphone 0.5 MG/0.5 ML SYRINGE IVP PRN ×6 (02:38→19:52)
[2019-05-01] MEDS: GABAPENTIN 400 MG CAP PO SCH ×3 (07:10→22:46)
[2019-05-01] MEDS: ATENOLOL 50 MG TAB PO SCH (07:10)
[2019-05-01] MEDS: ALPRAZolam 1 MG TAB PO SCH ×2 (07:10→20:42)
[2019-05-01] MEDS: PANTOPRAZOLE 40 MG/10 ML VIAL IV SCH ×2 (07:10→20:42)
--- NOTE | 2019-05-01 09:18 | P.PN ---
Subjective Progress Note Date: 05/01/19 Patient is a 18-year-old female with a PMH of chronic lower back pain (on home Turner), COPD, HTN, CAD, and C-spine fusion presented to the ED for epigastric pain and multiple episodes of hematemesis. The patient had reported up to 7 episodes per day for several days, with her epigastric pain being sharp, stabbing, 10 out of 10, without radiation or alleviating/exacerbating factors. Patient reports that she had previously undergone an EGD in February 2019 which had revealed some inflammation. Patient's hemoglobin was 15.1 on admission and she was subsequently admitted to medicine service for hematemesis. On 04/30, the patient had an episode of fever with T-max of 102.7. Discussed with the patient in detail at the bedside who noted on-going pain of the L face, ear, and "behind the L ear" for the past 2-3 days. She notes that 10 years ago, she was found to have an infection "behind the ear" -- while pointing to the mastoid bone, for which she had undergone a computed tomography scan where they found an infection and she required IV antibiotics for up to 10 days while inpatient. The patient notes that she did not have any recurrence of the episode until 2 days ago when she felt a similar pain. She notes that currently her pain is a 4 out of 10 in the L face and ear, while she continues to have 5 or 10 pain in the epigastric region. She denied sinus congestion/discharge, hearing changes, facial weakness, numbness, tingling, visual disturbances, or speech changes. She notes her last episode of hematemesis was 2 days ago and that she had a tarry/bloody stool also 2 nights ago with no further episodes. She denied nausea, vomiting, chest pain, SOB, cough, dysuria, urinary frequency, or diarrhea. Objective - Vital Signs Vital signs: Vital Signs Temp 99.0 F 05/01/19 07:04 Pulse 84 05/01/19 05:00 Resp 16 05/01/19 05:00 BP 102/64 05/01/19 05:00 Pulse Ox 91 L 05/01/19 05:00 Intake & Output 04/30/19 05/01/19 05/01/19 18:59 06:59 18:59 Intake Total 400 1550 Balance 400 1550 Intake: Intake, IV Titration 400 Amount Sodium Chloride 0.9% 1, 400 000 ml @ 100 mls/hr IV . Q10H YUSRA Rx#:[id number] Oral 1550 Other: Voiding Method Toilet # Voids 3 - Exam General: Non-toxic, in no acute distress, appears stated age, overweight HEENT: NC/AT, anicteric sclerae, moist conjunctiva, no lid-lag, PERRLA, L mastoid tenderness, L maxillary facial tenderness, no frontal sinus tenderness Cardiovascular: S1/S2 wnl, no murmurs, rubs, or gallops Lungs: Clear to auscultation, normal respiratory effort, no accessory muscle use Abdominal: Soft, mild epigastric tenderness, non-distended, no guarding, rebound, or rigidity Skin: Warm, dry Extremities: No edema or contractures Psychiatric: Alert and oriented to person, place and time, appropriate affect Neuro: CN II-XII grossly intact, Strength 5/5 in all 4 extremities, Speech intact, Sensation to light touch grossly intact throughout - Labs CBC & Chem 7: 04/30/19 08:55 04/28/19 08:20 Labs: Abnormal Lab Results - Last 24 Hours (Table) 04/30/19 04/30/19 Range/Units 08:55 16:28 WBC 10.9 H (3.8-10.6) k/uL RBC 3.78 L (3.80-5.40) m/uL MCV 101.6 H (80.0-100.0) fL Urine Blood Small H (Negative) Urine Bacteria Rare H (None) /hpf Urine Mucus Rare H (None) /hpf Microbiology - Last 24 Hours (Table) 04/30/19 16:28 Urine Culture - Preliminary Urine,Voided Assessment and Plan Plan: Hematemesis with epigastric pain in setting of history of gastritis -Patient was scheduled for EGD today -Continue with nothing by mouth for now -Anti-nausea medications -IV fluids -Pain control -Monitor CBC -C/w protonix IV -GI and Surg recs appreciated Fever with left facial and mastoid tenderness, with history of mastoiditis -Discussed with radiologist -- recommended a CT IAC w/ contrast -Hold off Abxs for now pending the study -UA and CXR unremarkable -No obvious discernible source of infection COPD not in acute exacerbation -Albuterol prn HTN -Hold atenolol in setting of borderline BP Chronic LBP -C/w home med: Turner -C/w Dilaudid 0.5 mg for epigastric pain. DVT prophylaxis -IPCDs Discussed with: Patient Anticipated discharge date: 05/03/[address]: Home A total of 35 minutes was spent on the care of this complex patient more than 50% of the time was spent in counseling and care coordination.
--- NOTE | 2019-05-01 10:14 | CT ---
EXAMINATION TYPE: CT iac w con DATE OF EXAM: 05/01/2019 COMPARISON: CT brain April 03, 2019 HISTORY: left ear , mastoid, and face pain in setting of fever CT DLP: 226 mGycm. Automated Exposure Control for Dose Reduction was Utilized. TECHNIQUE: CT scan of internal auditory canal is performed with IV contrast, thin cut axial images ar e obtained, coronal reformatted images are also reviewed. Patient injected with 100 cc Omnipaque 300 . FINDINGS: The external auditory canals are patent bilaterally. Mastoid air cells show no evidence of abnormal opacification bilaterally. The middle ear ossicles are symmetric and unremarkable. There is no evidence of suspicious surroundi ng soft tissue density to suggest cholesteatoma. The scutum is preserved bilaterally. The cochlea and the semicircular canals are symmetric and unremarkable. Vestibular aqueduct and inte rnal carotid canal appear unremarkable. No suspicious enhancement is seen. Visualized portions of br ain parenchyma is unremarkable. Visualized paranasal sinuses are clear. Globes are intact bilaterally . Temporomandibular joints are maintained bilaterally. IMPRESSION: No significant abnormality seen to account for patient's symptoms of fever and left-sided pain.
[2019-05-01 11:05] LABS: HCT 37.9 % (34.0-46.0); HGB 11.9 gm/dL (11.4-16.0); MCH 31.1 pg (25.0-35.0); MCHC 31.5 g/dL (31.0-37.0); MCV 98.6 fL (80.0-100.0); Platelet Count 340 k/uL (150-450); RBC 3.84 m/uL (3.80-5.40); RDW 12.5 % (11.5-15.5); WBC 11.8 k/uL (3.8-10.6)
[2019-05-01] MEDS ORDERED: LIDOCAINE 1% INJ 10MG/ML (20 ML MDV) ONE (12:20)
[2019-05-01] MEDS ORDERED: PROPOFOL 10 MG/ML 20 ML VIAL IV ONE (12:20)
[2019-05-01] MEDS ORDERED: SODIUM CHLORIDE 0.9% 500 ML 500 ML IV ONE (12:32)
--- NOTE | 2019-05-01 12:34 | P.OP ---
Date of Procedure: 05/01/19 Preoperative Diagnosis: Gastritis Postoperative Diagnosis: Mild duodenitis Minimal gastritis Small hiatal hernia Mild esophagitis No evidence of upper GI bleed Procedure(s) Performed: EGD Anesthesia: MAC Surgeon: Nacho Bush Pathology: other (Duodenum, antrum, esophagus) Condition: stable Disposition: PACU Description of Procedure: The patient's placed on the endoscopy table in the lateral position. She received IV sedation. The gastroscope placed oropharynx passed in the esophagus and into the stomach. Scope some placed through the pylorus. The first and second portion of the duodenum was examined. There is some minimal inflammation. A biopsies performed. There is no unsteady duodenal ulcer. The scope summer back and the antrum this was mildly inflamed a biopsies performed. There is no evidence of antral ulceration. The scope was then retroflexed and there was a very small hiatal hernia. The GE junction was at 39 cm. The distal esophagus was minimal plan a biopsy performed. The scope was withdrawn and the proximal esophagus appeared normal. Scope was withdrawn for patient. There was no evidence of any upper GI bleed. The inflammation seen was quite minimal. Patient tolerated the procedure well and was sent to the floor in stable condition.
[2019-05-01] MEDS: LISDEXAMFETAMINE DIMESYLATE 50 MG PO SCH (13:43)
[2019-05-01] MEDS: DICYCLOMINE 20 MG TAB PO SCH ×4 (13:50→22:46)
[2019-05-01] MEDS: ACETAMINOPHEN TAB 325 MG TAB PO PRN (16:49)
[2019-05-01] MEDS: DOXEPIN 25 MG CAP PO SCH (20:43)
[2019-05-02] MEDS: HYDROmorphone 0.5 MG/0.5 ML SYRINGE IVP PRN ×6 (01:23→17:49)
[2019-05-02] MEDS: HYDROcodone/APAP 10-325MG 1 EACH TAB PO PRN ×3 (02:29→19:17)
[2019-05-02] MEDS ORDERED: HYDROmorphone 0.5 MG/0.5 ML SYRINGE IVP STA (05:02)
[2019-05-02 07:52] LABS: HCT 36.9 % (34.0-46.0); HGB 11.5 gm/dL (11.4-16.0); MCH 30.9 pg (25.0-35.0); MCHC 31.3 g/dL (31.0-37.0); MCV 98.7 fL (80.0-100.0); Mean Platelet Volume 6.9; Platelet Count 328 k/uL (150-450); RBC 3.73 m/uL (3.80-5.40); RDW 12.5 % (11.5-15.5); WBC 10.2 k/uL (3.8-10.6)
[2019-05-02] MEDS: PANTOPRAZOLE 40 MG/10 ML VIAL IV SCH (07:52)
[2019-05-02] MEDS: DICYCLOMINE 20 MG TAB PO SCH ×3 (07:53→17:54)
[2019-05-02] MEDS: LISDEXAMFETAMINE DIMESYLATE 50 MG PO SCH (07:54)
[2019-05-02] MEDS: ALPRAZolam 1 MG TAB PO SCH (07:54)
[2019-05-02] MEDS: GABAPENTIN 400 MG CAP PO SCH ×2 (07:54→17:49)
[2019-05-02 08:48] LABS: African American GFR (CKD) >90 (>60 ml/min/1.73 sqM); Anion Gap 8 mmol/L; Blood Urea Nitrogen 6 mg/dL (7-17); Calcium 9.2 mg/dL (8.4-10.2); Carbon Dioxide 27 mmol/L (22-30); Chloride 104 mmol/L (98-107); Glucose 113 mg/dL (74-99); Potassium 4.2 mmol/L (3.5-5.1); Sodium 139 mmol/L (137-145)
[2019-05-02] MEDS: ONDANSETRON 4 MG/2 ML VIAL IVP PRN (11:29)
--- NOTE | 2019-05-02 13:30 | P.PN ---
Subjective Progress Note Date: 05/02/19 CHIEF COMPLAINT: Abdominal pain HISTORY OF PRESENT ILLNESS: 49-year-old female who underwent EGD yesterday revealing mild duodenitis, minimal gastritis, small hiatal hernia, and mild esophagitis. Patient examined this morning the bedside. She continues to repor t abdominal pain but states it is improved since yesterday. Denies nausea or vomiting. Continues to have fevers. Blood cultures negative at 24 hours. She is complaining of severe right-sided facial pain. She reports history of bone infection in her face in 2009. Neurology has been consulted by internal medicine for further evaluation. PHYSICAL EXAM: VITAL SIGNS: Reviewed. GENERAL: Well-developed in no acute distress. HEENT: No sclera icterus. Extraocular movements grossly intact. Moist buccal mucosa. Head is atraumatic, normocephalic. ABDOMEN: Soft. Nondistended. tenderness with palpation of epigastric region. Positive bowel sounds. NEUROLOGIC: Alert and oriented. Cranial nerves II through XII grossly intact. ASSESSMENT: 1. Abdominal pain, s/p EGD revealing mild duodenitis, minimal gastritis, small hiatal hernia, and mild esophagitis PLAN: Continue Protonix Continue diet as tolerated No surgical intervention recommended at this time Patient may follow up with Dr. Bush outpatient Nurse practitioner note has been reviewed by physician. Signing provider agrees with the documented findings, assessment, and plan of care. Objective - Vital Signs Vital signs: Vital Signs Temp 99.1 F 05/02/19 12:02 Pulse 78 05/02/19 12:02 Resp 18 05/02/19 12:02 BP 109/74 05/02/19 12:02 Pulse Ox 95 05/02/19 12:02 Intake & Output 05/01/19 05/02/19 05/02/19 18:59 06:59 18:59 Intake Total 340 240 Balance 340 240 Intake: IV 100 Oral 240 240 Other: Voiding Method Toilet Toilet # Voids 4 3 - Labs CBC & Chem 7: 05/02/19 07:36 05/02/19 07:36 Labs: Abnormal Lab Results - Last 24 Hours (Table) 05/02/19 05/02/19 Range/Units 07:36 07:36 RBC 3.73 L (3.80-5.40) m/uL BUN 6 L (7-17) mg/dL Glucose 113 H (74-99) mg/dL Microbiology - Last 24 Hours (Table) 04/30/19 16:28 Urine Culture - Final Urine,Voided 04/30/19 12:50 Blood Culture - Preliminary Blood No Growth after 24 hours 04/30/19 12:56 Blood Culture - Preliminary Blood No Growth after 24 hours
--- NOTE | 2019-05-02 14:24 | P.PN ---
Subjective Progress Note Date: 05/02/19 Patient is a 18-year-old female with a PMH of chronic lower back pain (on home Lillian), COPD, HTN, CAD, and C-spine fusion presented to the ED for epigastric pain and multiple episodes of hematemesis. The patient had reported up to 7 episodes per day for several days, with her epigastric pain being sharp, stabbing, 10 out of 10, without radiation or alleviating/exacerbating factors. Patient reports that she had previously undergone an EGD in February 2019 which had revealed some inflammation. Patient's hemoglobin was 15.1 on admission and she was subsequently admitted to medicine service for hematemesis. On 04/30, the patient had an episode of fever with T-max of 102.7. Discussed with the patient in detail at the bedside who noted on-going pain of the L face, ear, and "behind the L ear" for the past 2-3 days. She notes that 10 years ago, she was found to have an infection "behind the ear" -- while pointing to the mastoid bone, for which she had undergone a computed tomography scan where they found an infection and she required IV antibiotics for up to 10 days while inpatient. The patient underwent a IAC CT Scan w/ contrast which didn't reveal any abnormalities. Upon a thorough review of the chart, it was noted that the patient was previously diagnosed with optic neuritis. Neurology is thereby consulted. The patient had another fever yesterday w/ tmax of 101.2. The patient was seen and examined at the bedside on 05/02. She reported continued L facial pain 8/10, along with 6/10 abdominal pain. The patient notes that she has this pain constantly and that even with medications, it only improves a 7/10. Of note though, the patient was seen ambulating in the hallways during all hours, in a very pleasant mood, throughout her hospital stay. She also repeatedly asked to have her dilaudid increased to 1 mg. The patient denied sinus congestion, blurred vision, nausea, vomiting, chest pain, or SOB. She also notes no further episodes of diarrhea or vomiting. Objective - Vital Signs Vital signs: Vital Signs Temp 99.1 F 05/02/19 12:02 Pulse 78 05/02/19 12:02 Resp 18 05/02/19 12:02 BP 109/74 05/02/19 12:02 Pulse Ox 95 05/02/19 12:02 Intake & Output 05/01/19 05/02/19 05/02/19 18:59 06:59 18:59 Intake Total 340 240 Balance 340 240 Intake: IV 100 Oral 240 240 Other: Voiding Method Toilet Toilet # Voids 4 3 - Exam General: Non-toxic, in no acute distress, appears stated age, overweight HEENT: NC/AT, anicteric sclerae, moist conjunctiva, no lid-lag, PERRLA, L facial hyperesthesia Cardiovascular: S1/S2 wnl, no murmurs, rubs, or gallops Lungs: Clear to auscultation, normal respiratory effort, no accessory muscle use Abdominal: Soft, mild epigastric tenderness, non-distended, no guarding, rebound, or rigidity Skin: Warm, dry Extremities: No edema or contractures Psychiatric: Alert and oriented to person, place and time, appropriate affect Neuro: CN II-XII grossly intact, Strength 5/5 in all 4 extremities, Speech intact, Sensation to light touch grossly intact throughout - Labs CBC & Chem 7: 05/02/19 07:36 05/02/19 07:36 Labs: Abnormal Lab Results - Last 24 Hours (Table) 05/02/19 05/02/19 Range/Units 07:36 07:36 RBC 3.73 L (3.80-5.40) m/uL BUN 6 L (7-17) mg/dL Glucose 113 H (74-99) mg/dL Microbiology - Last 24 Hours (Table) 04/30/19 16:28 Urine Culture - Final Urine,Voided 04/30/19 12:50 Blood Culture - Preliminary Blood No Growth after 24 hours 04/30/19 12:56 Blood Culture - Preliminary Blood No Growth after 24 hours Assessment and Plan Plan: Hematemesis with epigastric pain in setting of history of gastritis -S/p EGD which revealed only mild inflammation -Surgery recs appreciated -DC protonix Fever with left facial hyperesthesia, with history of mastoiditis -Neurology consulted for possible hx of optic neuritis -UA and CXR unremarkable -No obvious discernible source of infection -Will confirm all temps w/ an axillary reading COPD not in acute exacerbation -Albuterol prn HTN -Hold atenolol in setting of borderline BP Chronic LBP -C/w home med: Lillian -C/w Dilaudid 0.5 mg DVT prophylaxis -IPCDs Discussed with: Patient Anticipated discharge date: 05/03/[address]: Home A total of 35 minutes was spent on the care of this complex patient more than 50% of the time was spent in counseling and care coordination.
--- NOTE | 2019-05-02 14:41 | P.CNNES ---
History of Present Illness Consult date: 05/02/19 Reason for Consult: Facial pain Chief complaint: Facial pain History of Present Illness: HISTORY OF PRESENT ILLNESS: Thank you for allowing me to evaluate Ms. Isabell Winston. 49-year-old woman Ms. Winston is a past medical history of COPD, GERD, hypertension, OR, chronic back pain, lumbar DDD, insomnia, shingles, migraines, presented to [facility] on 04/27/2019 for hematemesis, consulted neurology for facial pain. Patient states that since Wednesday, she started having pain to palpation around h er L eye and also the cheekbone along with some ear fullness and fever. She states that she becomes very aware of having a fever as she shivers and gets very cold. On Wednesday, she felt that way and was noted to have temperature of 100.1. Patient also states that she had a diagnosis of mastoiditis in 2009 at which time she was initially treated with Z-tracy as outpatient, but she continued to have pain and needed to be hospitalized for 12 days for the infection to clear. Pt denies any headache, double/blurry vision, weakness, numbness or tingling. She endorses mild lightheadedness but no vertigo and some headache. Symptoms she is experiencing are exactly the same as the one she had in 2010. PAST MEDICAL HISTORY: COPD, GERD, hypertension, OR, chronic back pain, lumbar DDD, insomnia, shingles, migraines PAST SURGICAL HISTORY: Appendectomy, , cholecystectomy, cervical spine fusion, lumbar rhizotomy in the radiofrequency ablation HOME MEDICATIONS: Atenolol, gabapentin, vitamin B complex, doxepin, aspirin, Lisdexamfetamine (given for ADHD), Xanax ALLERGIES: Ketorolac, shellfish derived, tramadol, ibuprofen, morphine SOCIAL HISTORY: Coronary disease smoker. Social drinker. FAMILY HISTORY: Father with lung cancer, at age 48. Mother had CHF and stroke. REVIEW OF SYSTEMS: The 14 systems are reviewed and no additional points are identified compared to the review of systems documented history and physical PHYSICAL EXAMINATION: VITAL SIGNS: T 98.4 HR 80 RR 18 BP 104/57 O2 sat 93% on RA GEN.: NAD, pleasant and cooperative HEENT: NCAT, sclera without icterus NECK: Supple SKIN AND EXTREMITIES: Warm to touch, no edema NEURO: MENTAL STATUS: Patient alert and oriented to self, place, time. Able to name the current president. Speech fluent, able to name and repeat, following all commands readily. No right and left disorientation, neglect. CRANIAL NERVES II THROUGH XII: II: Pupils are equal and reactive to light symmetrically. No afferent pupillary defect. Visual pascal are intact. III, IV, : No ptosis. Extraocular movements full. No nystagmus. V: Facial sens ation intact from V1-3. VII. Decreased sensation to light touch in L V1-3 (patient experienced this symptoms during her previous episode of mastoiditis). VIII: Hearing decreased in L ear IX, X: Symmetric palate elevation. XI: Shoulder shrug intact. XII: Tongue midline without fasciculation or atrophy. MOTOR: Normal bulk/tone. No pronator drift or tremor. Strength is 5/5 throughout all 4 extremities. SENSORY: Intact to light touch in all 4 extremities. Romberg is negative. REFLEXES: 2+ throughout. Toes are downgoing. COORDINATION: Finger to nose intact. No dysmetria. GAIT: Narrow-based and stable. Able to toe/heel/tandem walk DIAGNOSTIC TESTING: LABORATORY: WBC 10.2 11.5 platelet 0.5 sodium 139 potassium 4.2 chloride 104 bicarb 27 BUN 6 creatinine 0.66 glucose 113 IMAGING: CT head without contrast 04/03/2019: No acute intracranial hemorrhage, mass effect, or midline shift is seen. (Of note, patient has gotten 6 CT head since February 2017. Multiple symptom for those 6 CT Head imaging such as left-sided numbness, slurred speech, left-sided weakness, confusion, and syncopal episode) MRI brain without contrast 06/15/2017: Subacute ischemia is not evident. Nonspecific white matter demyelination could be related to migraine headaches, hypertension, multiple sclerosis in appropriate clinical setting, Lyme disease, vasculitis. Sinus disease. ASSESSMENT: Ms. Winston is a past medical history of COPD, GERD, hypertension, OR, chronic back pain, lumbar DDD, insomnia, shingles, migraines, presented to [facility] on 04/27/2019 for hematemesis, consulted neurology for facial pain. Patient reporting a very similar episode in 2009 of mastoiditis that caused L facial pain to palpation along with numbness and hearing deficit in the L ear. Patient with no other focal deficits. Patient most likely with a recurring episode of mastoiditis causing her these symptoms as patient spiked a fever and had leukocytosis. RECOMMENDATIONS: 1. CT Head w/o contrast 2. Infection management by primary team 3. Neurology will continue to follow; if CT Head shows a likely mastoiditis, Neurology will sign off. Please contact with additional questions or concerns. Past Medical History Past Medical History: COPD, GERD/Reflux, Hypertension, Myocardial Infarction (OR), Pneumonia, Skin Disorder Additional Past Medical History / Comment(s): chronic back pain, lumbar degenerative disc disease, insomnia, hx shingles, hiatal hernia, kidney stones. 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, migraines,; obstetrical history is significant for 1 miscarriage and 1 term that required a section Last Myocardial Infarction Date:: 08/27/2016 History of Any Multi-Drug Resistant Organisms: MRSA Date of last positivie culture/infection: 09/22/09 MDRO Source:: neck Past Surgical History: Appendectomy, Back Surgery, Section, Cholecystectomy Additional Past Surgical History / Comment(s): Cervical spine fusion with insertion of a metal plate, EGD, colonoscopy, lumbar rhizotomy and radiofrequency ablation Past Anesthesia/Blood Transfusion Reactions: No Reported Reaction Additional Past Anesthesia/Blood Transfusion Reaction / Comment(s): CLAUSTROPHOBIA Past Psychological History: ADD/ADHD, Anxiety Additional Psychological History / Comment(s): PT LIVES WITH SIG OTHER OF 25 YEARS. Smoking Status: Current every day smoker Past Alcohol Use History: Rare Additional Past Alcohol Use History / Comment(s): PATIENT STATES SHE STARTED SMOKING AT AGE 16 SMOKES 2 cigaretts per day Past Drug Use History: None Reported - Past Family History Father Family Medical History: Cancer Additional Family Medical History / Comment(s): Father at age 48 from lung cancer. Mother Family Medical History: Congestive Heart Failure (CHF), CVA/TIA Additional Family Medical History / Comment(s): Mother is alive at age 68. She has suffered from a CVA and has chronic back problems. Patient has 2 brothers and 4 sisters with no major medical problems. Medications and Allergies Home Medications Medication Instructions Recorded Confirmed Type Atenolol [Tenormin] 50 mg PO DAILY 07/29/18 04/27/19 History Gabapentin [Neurontin] 400 mg PO TID 11/23/18 04/27/19 History Aspirin EC [Ecotrin Low Dose] 81 mg PO DAILY 04/03/19 04/27/19 History Doxepin HCl [SINEquan] 100 mg PO HS 04/03/19 04/27/19 History Vitamin B Complex 1 cap PO DAILY 04/03/19 04/27/19 History ALPRAZolam [Xanax] 1 mg PO BID 04/27/19 04/27/19 History HYDROcodone/APAP 10-325MG [[place] 1 tab PO Q6HR PRN 04/27/19 04/27/19 History 10-325] Lisdexamfetamine Dimesylate 50 mg PO QAM 04/27/19 04/27/19 History [Vyvanse] Allergies Allergy/AdvReac Type Severity Reaction Status Date / Time ketorolac [From Toradol] Allergy Anaphylaxis Verified 04/27/19 17:11 shellfish derived Allergy Anaphylaxis Verified 04/27/19 17:11 tramadol [From Ultram] Allergy Rash/Hives Verified 04/27/19 17:11 ibuprofen AdvReac Nausea Verified 04/27/19 17:11 morphine AdvReac Nausea Verified 04/27/19 17:11 Physical Examination - Vital Signs Vital Signs: Vital Signs Temp Pulse Pulse Resp BP Pulse Ox 05/02/19 05:00 98.4 F 80 18 104/57 93 L 05/01/19 23:50 18 05/01/19 21:00 98.3 F 73 18 90/53 97 05/01/19 16:25 85 84 16 05/01/19 15:20 98.2 F 80 18 126/70 98 05/01/19 14:00 101.1 F H 85 16 112/56 94 L 05/01/19 13:00 101.2 F H 83 18 92/51 92 L Intake and Output 05/01/19 05/02/19 05/02/19 22:59 06:59 14:59 Intake Total 240 Balance 240 Intake: Oral 240 Other: Voiding Method Toilet Toilet # Voids 1 3 Results - Laboratory Findings CBC and BMP: 05/02/19 07:36 05/02/19 07:36 Abnormal Lab Findings: Abnormal Labs 04/27/19 04/27/19 04/30/19 14:13 14:13 08:55 WBC 10.9 H RBC 3.78 L Hct 46.2 H MCV 101.6 H Plt Count 455 H Basophils # 0.3 H Chloride 108 H BUN Glucose Calcium 10.4 H Total Bilirubin <0.1 L Alkaline Phosphatase 145 H Urine Blood Urine Bacteria Urine Mucus 04/30/19 05/01/19 05/02/19 16:28 09:59 07:36 WBC 11.8 H RBC 3.73 L Hct MCV Plt Count Basophils # Chloride BUN Glucose Calcium Total Bilirubin Alkaline Phosphatase Urine Blood Small H Urine Bacteria Rare H Urine Mucus Rare H 05/02/19 07:36 WBC RBC Hct MCV Plt Count Basophils # Chloride BUN 6 L Glucose 113 H Calcium Total Bilirubin Alkaline Phosphatase Urine Blood Urine Bacteria Urine Mucus
--- NOTE | 2019-05-02 15:09 | CT ---
EXAMINATION TYPE: CT brain wo con DATE OF EXAM: 05/02/2019 COMPARISON: 05/01/2019 HISTORY: 49-year-old female concern for mastoiditis. Pain. TECHNIQUE: Examination was done in axial plane without intravenous contrast. Coronal and sagittal r econstructions performed. CT DLP: 1064 mGycm Automated exposure control for dose reduction was used. FINDINGS: There is no evidence of acute intracranial hemorrhage, acute ischemic changes, mass, mass-effect, or extra-axial fluid collection. There is no effacement of cerebral sulci or basal subarachnoid cister ns. There is no hydrocephalus. There is no midline shift. Amor-white matter distinction is preserv ed. Partially empty sella. Mild atherosclerotic calcifications within the carotid siphons. Very mild patc hy periventricular white matter hypodensity ingesting minimal to mild burden of chronic small vessel ischemic disease. Paranasal sinuses and mastoid air cells well pneumatized. Middle ear cavities are also clear. Orbits and globes are intact. IMPRESSION: No acute intracranial abnormality seen. No CT evidence for mastoiditis.
[2019-05-02 19:41] VITALS: RESP 16
[2019-05-03] MEDS: HYDROmorphone 0.5 MG/0.5 ML SYRINGE IVP PRN ×2 (00:28→08:42)
[2019-05-03] MEDS: HYDROcodone/APAP 10-325MG 1 EACH TAB PO PRN (01:24)
[2019-05-03] MEDS: ALPRAZolam 1 MG TAB PO SCH ×2 (03:02→08:42)
[2019-05-03] MEDS: DICYCLOMINE 20 MG TAB PO SCH ×2 (03:02→10:26)
[2019-05-03] MEDS: DOXEPIN 25 MG CAP PO SCH (03:02)
[2019-05-03] MEDS: MUPIROCIN 2% OINT 22 GM TUBE TOPICAL SCH ×2 (03:02→08:49)
[2019-05-03] MEDS: GABAPENTIN 400 MG CAP PO SCH ×2 (03:03→08:42)
[2019-05-03 05:41] VITALS: BP 103/69; PULSE 67; TEMP 97.6
[2019-05-03] MEDS: LISDEXAMFETAMINE DIMESYLATE 50 MG PO SCH (08:48)
--- NOTE | 2019-05-03 15:51 | P.DS ---
Providers Date of admission: 04/29/19 12:20 Expected date of discharge: 05/03/19 Attending physician: Olaf Lay MD Consults: 04/28/19 09:55 Consult Physician Routine Consulting Provider: Nacho Bush Consult Reason/Comments: Hemataemesis/abdominal pain Do you want consulting provider notified?: Yes 05/02/19 10:22 Consult Physician Urgent Consulting Provider: Nickie Gray Consult Reason/Comments: Severe L facial pain, w/ hx of occipital neuritis Do you want consulting provider notified?: Yes Primary care physician: Mcpherson Hospital Course: Patient is a 18-year-old female with a PMH of chronic lower back pain (on home Ord), COPD, HTN, CAD, and C-spine fusion presented to the ED for epigastric pain and multiple episodes of hematemesis. The patient had reported up to 7 episodes per day for several days, with her epigastric pain being sharp, stabbing, 10 out of 10, without radiation or alleviating/exacerbating factors. Patient reports that she had previously undergone an EGD in February 2019 which had revealed some inflammation. Patient's hemoglobin was 15.1 on admission and she was subsequently admitted to medicine service for hematemesis. The patient underwent an upper EGD w/ gen surgery which revealed only mild inflammation and no site of active bleeding. On 04/30, the patient had an episode of fever with T- max of 102.7. Discussed with the patient in detail at the bedside who noted on- going pain of the L face, ear, and "behind the L ear" for the past 2-3 days. She notes that 10 years ago, she was found to have an infection "behind the ear" -- while pointing to the mastoid bone, for which she had undergone a computed tomography scan where they found an infection and she required IV antibiotics for up to 10 days while inpatient. The patient underwent a IAC CT Scan w/ contrast which didn't reveal any abnormalities. Upon a thorough review of the chart, it was noted that the patient was previously diagnosed with optic neuritis. Neurology was thereby consulted. A repeat CT head failed to reveal any infection causing the patient's symptoms. The patient denied dysuria, diarrhea, cough, or chest pain. She was evaluated at the bedside on the day of discharge. The patient remained afebrile for 48 hours prior to discharge. She was in good spirits and noted only mild epigastric abdominal pain along with some continued L facial pain with hyperesthesias. She denied visual or speech changes. Denied facial weakness, numbness, or tingling. The patient was advised to follow-up with Neurology as an outpatient for possible optic neuritis and was advised to continue her opiates in the mean-time. The patient is agreeable and ready for discharge to home. Physical Examination General: Non-toxic, in no acute distress, appears stated age, normal weight HEENT: NC/AT, anicteric sclerae, moist conjunctiva, no lid-lag, PERRLA Cardiovascular: S1/S2 wnl, no murmurs, rubs, or gallops Lungs: Clear to auscultation, normal respiratory effort, no accessory muscle use Abdominal: Soft, non-tender, non-distended, no guarding, rebound, or rigidity Skin: Warm, dry Extremities: No edema or contractures Psychiatric: Alert and oriented to person, place and time, appropriate affect Neuro: CN II-XII grossly intact, Strength 5/5 in all 4 extremities, Speech intact, Sensation to light touch grossly intact throughout Discharge diagnosis: Hematemesis; facial hyperesthesia; COPD, not in acute exacerbation; HTN; Chronic LBP A total of 40 minutes of time were spent preparing this complex discharge summary. Patient Condition at Discharge: Fair Plan - Discharge Summary Discharge Rx Participant: No New Discharge Prescriptions: Continue Atenolol [Tenormin] 50 mg PO DAILY Gabapentin [Neurontin] 400 mg PO TID Vitamin B Complex 1 cap PO DAILY Doxepin HCl [SINEquan] 100 mg PO HS Aspirin EC [Ecotrin Low Dose] 81 mg PO DAILY Lisdexamfetamine Dimesylate [Vyvanse] 50 mg PO QAM HYDROcodone/APAP 10-325MG [Ord 10-325] 1 tab PO Q6HR PRN PRN Reason: Pain ALPRAZolam [Xanax] 1 mg PO BID Discharge Medication List Atenolol [Tenormin] 50 mg PO DAILY 07/29/18 [History] Gabapentin [Neurontin] 400 mg PO TID 11/23/18 [History] Aspirin EC [Ecotrin Low Dose] 81 mg PO DAILY 04/03/19 [History] Doxepin HCl [SINEquan] 100 mg PO HS 04/03/19 [History] Vitamin B Complex 1 cap PO DAILY 04/03/19 [History] ALPRAZolam [Xanax] 1 mg PO BID 04/27/19 [History] HYDROcodone/APAP 10-325MG [Ord 10-325] 1 tab PO Q6HR PRN 04/27/19 [History] Lisdexamfetamine Dimesylate [Vyvanse] 50 mg PO QAM 04/27/19 [History] Follow up Appointment(s)/Referral(s): Joyce Klein DO [Primary Care Provider] - 05/11/19 10:20 am Nacho Bush MD [STAFF PHYSICIAN] - 1 Week Patient Instructions/Handouts: Hematemesis (ED) Discharge Disposition: HOME SELF-CARE
== END 2019-05-03 10:51 | disposition home or self-care (01) | DRG 378 ==
LOC: EC 13:38 → 3NMEDONC 16:52 → OBSVTOIN 04-29 12:20 → 3NMEDONC 04-29 12:36
PROVIDERS: ADMIT Family Medicine; ATTEND Family Medicine
PROC: 0DB78ZX Excision of Stomach, Pylorus, Via Natural or Artificial Opening Endoscopic, Diagnostic (ICD-10-PCS; 2019-05-01)
PROC: 0DB58ZX Excision of Esophagus, Via Natural or Artificial Opening Endoscopic, Diagnostic (ICD-10-PCS; 2019-05-01)
PROC: 0DB98ZX Excision of Duodenum, Via Natural or Artificial Opening Endoscopic, Diagnostic (ICD-10-PCS; principal; 2019-05-01 07:55)
DX: K29.81 Duodenitis with bleeding (principal); J98.11 Atelectasis; K86.2 Cyst of pancreas; H46.9 Unspecified optic neuritis; K44.9 Diaphragmatic hernia without obstruction or gangrene; K29.71 Gastritis, unspecified, with bleeding; D72.829 Elevated white blood cell count, unspecified; F17.210 Nicotine dependence, cigarettes, uncomplicated; F40.240 Claustrophobia; F90.9 Attention-deficit hyperactivity disorder, unspecified type; G89.29 Other chronic pain; I10 Essential (primary) hypertension; I25.10 Atherosclerotic heart disease of native coronary artery without angina pectoris; I25.2 Old myocardial infarction; J44.9 Chronic obstructive pulmonary disease, unspecified; K21.0 Gastro-esophageal reflux disease with esophagitis; Z87.11 Personal history of peptic ulcer disease; Z79.82 Long term (current) use of aspirin; Z79.899 Other long term (current) drug therapy; Z80.1 Family history of malignant neoplasm of trachea, bronchus and lung; Z82.3 Family history of stroke; Z82.49 Family history of ischemic heart disease and other diseases of the circulatory system; Z87.442 Personal history of urinary calculi; Z90.49 Acquired absence of other specified parts of digestive tract; Z98.1 Arthrodesis status; M51.36 Other intervertebral disc degeneration, lumbar region; Z88.6 Allergy status to analgesic agent; Z88.5 Allergy status to narcotic agent; Z91.013 Allergy to seafood; R20.3 Hyperesthesia; G47.00 Insomnia, unspecified; G43.909 Migraine, unspecified, not intractable, without status migrainosus; Z86.14 Personal history of Methicillin resistant Staphylococcus aureus infection; Z87.01 Personal history of pneumonia (recurrent)
CPT/HCPCS: 36415; 43239; 70450; 70481; 71046; 74018; 80048; 80053; 81001; 84484; 85025; 85027; 85610; 85730; 86850; 86900; 86901; 87040; 87086; 87502; 88305; 93005; 96361; 96374; 96375; 99285

== ENCOUNTER → 2019-05-11 | Outpatient (CLI) | payer OTHER ==
[2019-05-11 09:55] VITALS: BP 138/85; PULSE 100; RESP 16
--- NOTE | 2019-05-14 09:23 | P.PAINPG ---
Subjective Progress Note Date: 05/11/19 Principal diagnosis: This is a follow-up visit for this 49 year old female with a history of severe and chronic low back pain secondary to lumbar degenerative disc disease, lumbar spondylosis with facet arthropathy, currently she is complaining of severe low back pain . The intensity of the pain interfering with her quality of life, she already saw Dr. Darling a spine surgeon and he is in the process of scheduling surgical intervention in the lumbar spine, tentatively for July. She is scheduled to see him again next month. The patient currently on norco 5 /325 every 6 hours, and Neurontin 600 mg 3 times a day, the medications was changed last visit because she was trying to wean off opioid , and we will increase the Neurontin from 400, she reported that the Neurontin 600 mg makes her very sleepy, and also she is not getting the equipment independently from the Ferguson 5/325. patient denies any excessive drowsiness or sleepiness, patient denies any suicidal ideation, continued to have severe low back pain which is increased with any activity Review of systems is negative for chest pain, shortness of breath, abdominal pain, malaise, fever, night sweats, chills, homicidal or suicidal ideation, or bowel or bladder incontinence. Objective - Vital Signs Vital signs: Vital Signs Temp Pulse 100 05/11/19 09:49 Resp 16 05/11/19 09:49 BP 138/85 05/11/19 09:49 Pulse Ox 97 05/11/19 09:49 - Exam Physical Examinations : -Constitutiona : Cooperative , not in acute distress . -HEENT : nech : supple , no Lymphadenopathy , normal thyroid size . eyes : no ptosis , no icterus, no photophobia . ENT : normal of hearing , normal oropharynx , no Thrush . - Respiratory : Chest clear to auscultations Bilaterally , no wheezing , no Rhonchi . - Cardiovascula : regular rate and rhythem , S1 , S2 , no S3 , no S4. - Gastrointestina : abdomen soft no tenderness , bowel sounds , no organomegally . - Genitourinary : Defferred . - neurologic : Cranial nerve II to XII intact , no focal neurological deffecit . -psychatric : alert , oriented X 3 , appropriate affect , intact judgment and insight . -Lymphatic : no Lymphadenopathy . - musculoskeltal : Lumber spine moter stegnth lower extremities ,thigh and legs 4/5 Right side , 4/5 Left side deep tendon reflexes : normal Knee Jerk , normal ankle Jerk positive lumber facet Loading Test Range of motion of the lumbar spine Flexion 30 degrees, extension 10 degrees strait leg raising test , positive at 45 degree Fabere test positive RT and positive LT . Sever tenderness over the Sacroiliac joint on the Left side Gaenslen test positive on the left Seated flexion test positive on the left side Assessment and Plan Plan: Assessment and plan= chronic low back pain secondary to lumbar degenerative disc disease , lumbar spondylosis with lumbar facet arthropathy . Left sacroiliitis chronic and current use of high-risk medication (opioids) Patient denies any side effects of the current pain medication and the current treatment/medication helping the patient to do activity of daily living , Diagnoses, prognosis, treatment options, including but not limited to physical therapy, medication management, interventional therapies, and surgery, were discussed with the patient All the questions answered The narcotic consent was signed and patient agreed and understood the side effects and complications of opioid treatment. Patient signed the narcotic agreement, and was orally counseled, not to overuse, not to abuse, not to Divert , not tp sell pain medication, and to take it as prescribed only, Patient was counseled not to drive or operate heavy equipment while using narcotic medication, and advised not to use alcohol or any Illicit drugs while using the narcotis. understanding that lack of compliance with any of the above instructions, will likely to cause discharge from, the pain service, not to renew his narcotic prescriptions [facility] Reviwed and it was apropriate . Medication managements= I will decrease the Neurontin back to 400 mg 3 times a day(had side effects from the 600 mg 3 times a day and make her very sleepy). Patient reported that the Ferguson 5/325 is not giving her enough relief she is not able to function at all because of the intensity of the pain, Increase Ferguson 7.5/325 every 8 hours dispense 90 with 1 refill, Procedure= patient with a good candidate to have RF of the right side median branch lumbar area L3 ,L4 ,L5 ( to target the right side facet joints L4 5 and L5-S1 ) , Time with Patient: Less than 30 PQRS Measure Charge Sheet Measure #130: Documentation of Current Meds in Medical Chart: Patient's medications documented in chart Measure #226: Tobacco Use: Screen & Cessation Intervention: Pt screened for tobacco use AND intervention given Measure #111: Pneumonia Vaccination: Pneumococcal vaccine NOT administered or previously given Measure #47: Advance Care Plan: Advance care planning discussed & documented, pt chose/unable to give Measure #412: Opioid Treatment Agreement: Documented signed opioid trtmnt agreemnt min once during opioid trtmnt Measure #408: Opioid Therapy Follow-up Evaluation: Patient had f/u eval minimum every 3 months during opioid therapy Measure #317: Preventitive Care & Scrn High Bld Press & F/U: Normal blood pressure, f/u not required Measure #128: Body Mass Index (BMI) Screening & Follow-up: BMI documented ABOVE normal parameters - f/u documented Measure #131: Pain Assessment & Follow-up: Pain positive & plan documented, Follow-up scheduled Measure #431: Unhealthy Alcohol Use Preventative Care & Scrn: Patient not identified as an unhealthy alcohol user PQRS Narrative: Smoking Status Current every day smoker Narcotic Agreement Date Signed 09/08/16 Blood Pressure 138/85 Pain Intensity [Lower Back] 6 Scale Used Numeric (1 - 10) Hx Alcohol Use (MH) Yes: rare Home Medications: Ambulatory Orders Atenolol [Tenormin] 50 mg PO DAILY 07/29/18 Aspirin EC [Ecotrin Low Dose] 81 mg PO DAILY 04/03/19 Doxepin HCl [SINEquan] 100 mg PO HS 04/03/19 Vitamin B Complex 1 cap PO DAILY 04/03/19 ALPRAZolam [Xanax] 1 mg PO BID 04/27/19 Lisdexamfetamine Dimesylate [Vyvanse] 50 mg PO QAM 04/27/19 Omeprazole [PriLOSEC] 40 mg PO DAILY 05/08/19 Gabapentin [Neurontin] 400 mg PO TID #90 cap 05/11/19 HYDROcodone/APAP 5-325MG [Ferguson 5-325] 1 tab PO Q8HR PRN 30 Days #90 tab 05/11/19 HYDROcodone/APAP 7.5-325MG [Ferguson 7.5-325] 1 tab PO Q8HR PRN 30 Days #90 tab 05/11/19 Controlled Substance Measures - Controlled Substance Measures Is patient prescribed a controlled substance at discharge?: Yes
== END | disposition home or self-care (01) ==
LOC: PNWHC3 09:28
PROVIDERS: ATTEND Specialist
DX: G89.29 Other chronic pain (principal); M51.36 Other intervertebral disc degeneration, lumbar region; M47.816 Spondylosis without myelopathy or radiculopathy, lumbar region; M46.96 Unspecified inflammatory spondylopathy, lumbar region; M46.1 Sacroiliitis, not elsewhere classified; F17.200 Nicotine dependence, unspecified, uncomplicated; Z79.82 Long term (current) use of aspirin; Z79.891 Long term (current) use of opiate analgesic; Z79.899 Other long term (current) drug therapy
CPT/HCPCS: 99211

== ENCOUNTER 2019-06-14 09:15 | Day surgery (SDC) | payer OTHER ==
[2019-06-02 10:22] VITALS: BMI 28.5
[2019-06-14 09:44] VITALS: TEMP 98.3
[2019-06-14] MEDS ORDERED: IV FLUID CONTINUATION 1,000 ML IV ONE (10:42)
[2019-06-14 10:47] VITALS: RESP 17
--- NOTE | 2019-06-14 10:54 | P.PCN ---
Date of Procedure: 06/14/19 Procedure(s) Performed: PREOPERATIVE DIAGNOSIS: Lumbar Spondylosis POSTOPERATIVE DIAGNOSIS: Same PROCEDURES: Radiofrequency ablation of the L3, L4, L5 medial branches with fluoroscopic guidance on the right side SURGEON: Patricia Shelby MD. ANESTHESIA: Lidocaine 1% 5 mL, Moderate sedation with intravenous Versed and fentanyl, sedation time 17 minutes EBL: Minimal Fluoroscopy was used for the procedure and images were saved in the radiology portion of the chart. PROCEDURE INDICATION: The patient with low back pain secondary to lumbar facet arthropathy who had more than 50% relief of pain with previous diagnostic lumbar medial branch block X2. PROCEDURE DESCRIPTION / TECHNIQUE: The patient was seen and identified in the preoperative area. Risks, benefits, complications, including but not limited to risk of infection ,bleeding , allergic reactions to the medications and incomplete pain relief , and alternatives were discussed with the patient, the patient agreed to proceed with the procedure and signed the consent. IV was started. The operative site was marked. Patient was taken to the OR and time out was completed. The patient was placed in the prone position on the procedure table. The lumbar area was prepped and draped in the usual sterile fashion. . Vital signs were closely monitored during the procedure .IV sedation was used during the procedure to decrease patients anxiety. Using AP and then oblique fluoroscopy, the "eye of the Fernando dog" corresponding to the connection between the superior and transverse articular processes of the L4 and L5 as well as the sacral ala were identified, marked, and localized with 1% lidocaine. Subsequently, an 18 guage 150 mm radiofrequency cannula with a 10-mm active tip was advanced guided by fluoroscopy to the identified target at each site. Needle positioning was confirmed on AP, oblique and lateral fluoroscopy. Motor testing at 2.5 Hz was done with paraspinal muscle stimulation only, and no radicular symptoms down the legs. Then 1 mL of 4% lidocaine was injected in each site. Radiofrequency thermocoagulation at 80 degrees celsius for 90 seconds was then performed. [place] were removed. Sterile dressings were applied. COMPLICATIONS: No acute complications. DISPOSITION / PLANS: The patient was placed in a supine position and transferred to the recovery area in a stable condition for observation and was discharged from the recovery room after meeting discharge criteria. Home discharge instructions given to the patient by the staff. The patient will follow up for left SI joint injection and bilateral occipital nerve blocks at next visit. Of note, the patient has undergone bilateral occipital nerve blocks in the past, with excellent relief. At her last clinic visit, she had evidence of left SI joint dysfunction, hence we will schedule left SI joint injection. Patient was requesting a 10 day medication refill for Percocet today due to neck pain. I informed her that we do not provide extra prescriptions, she is on [place] which we prescribe. I instructed her to use ice, heat to the area and takes scheduled Tylenol [id number].
--- NOTE | 2019-06-14 11:04 | FL ---
EXAMINATION TYPE: FL guided pain mgmt statistic DATE OF EXAM: 06/14/2019 HISTORY: Flouroscopy time 10 seconds of fluoroscopy provided. IMPRESSION: 1. Fluoroscopy time.
[2019-06-14 11:11] VITALS: BP 135/87; PULSE 81
== END 2019-06-14 11:24 | disposition home or self-care (01) ==
LOC: ORPAIN 09:15
PROVIDERS: ATTEND Anesthesiology
DX: M47.816 Spondylosis without myelopathy or radiculopathy, lumbar region (principal); M53.3 Sacrococcygeal disorders, not elsewhere classified; Z91.013 Allergy to seafood; Z88.6 Allergy status to analgesic agent; Z88.5 Allergy status to narcotic agent; Z78.0 Asymptomatic menopausal state
CPT/HCPCS: 64636; 64635; J2250; J3010; 99152

== ENCOUNTER 2019-08-14 11:26 | Emergency (ER) | payer OTHER ==
[2019-08-14] MEDS ORDERED: HYDROmorphone 0.5 MG/0.5 ML SYRINGE IM STA ×2 (12:38→13:24)
[2019-08-14] MEDS ORDERED: HYDROmorphone 1 MG/ML 1 ML SYRINGE IM STA (12:41)
--- NOTE | 2019-08-14 13:46 | XR ---
EXAMINATION TYPE: XR wrist complete LT, XR hand complete LT DATE OF EXAM: 08/14/2019 CLINICAL HISTORY: pain TECHNIQUE: Frontal, lateral and oblique images of the left wrist and hand are obtained. COMPARISON: None. FINDINGS: Comminuted distal radial fracture with displacement noted estimated at 6 mm. On the lateral projection there may be a fracture fragment arising from the ventral aspect of the distal ulna. Ther e is evidence of intra-articular extension. Extension is noted. Soft tissue edema and deformity noted . IMPRESSION: Moderately comminuted distal radial fracture with displacement. ICD 10 closed FRACTURE, INITIAL EVALUATION
--- NOTE | 2019-08-14 13:51 | XR ---
EXAMINATION TYPE: XR forearm LT DATE OF EXAM: 08/14/2019 CLINICAL HISTORY: Pain since injury 4 days ago. TECHNIQUE: Two views of the left forearm are obtained. COMPARISON: None. FINDINGS: There is no additional acute fracture or dislocation seen in the proximal to mid left radi us or ulna. Visualized left elbow joint appears within normal limits. Lateral 90 degree projection no t performed. Moderate subcutaneous edema near proximal ulna is present. There is spur from the medial epicondyle distal humerus noted. IMPRESSION: There is no additional acute fracture or dislocation seen in the proximal to mid left ra dius or ulna. Please see same day wrist x-ray report for complete details on the displaced distal rad ius/radial fracture.
[2019-08-14] MEDS ORDERED: MORPHINE SULFATE IR 15 MG TABLET PO STA (15:07)
[2019-08-14] MEDS ORDERED: PROPOFOL 10 MG/ML 20 ML VIAL IV STA (15:52)
[2019-08-14] MEDS ORDERED: SODIUM CHLORIDE 0.9% 1,000 ML IV STA (15:56)
--- NOTE | 2019-08-14 16:03 | ED ---
General Adult HPI - General Source: patient, RN notes reviewed Mode of arrival: ambulatory Limitations: no limitations <Ge Ramirez - Last Filed: 08/14/19 17:04> <Mike Chance - Last Filed: 08/17/19 22:27> - General Chief complaint: Extremity Injury, Upper Stated complaint: Wrist injury Time Seen by Provider: 08/14/19 12:21 - History of Present Illness Initial comments: 49-year-old female with a past medical history of COPD, hypertension, GERD presents to the emergency department for a chief complaint of left wrist pain. Patient fell 4 days ago when climbing down from a bunk bed onto the left wrist. [place] a sudden pain. Patient was seen at [facility] on Wednesday and was splinted after x-rays. Patient states she reported back to [facility] yesterday for continued pain and was resplinted. Patient states she has been taking Lily Dale at home for pain which she always takes and it does not seem to be improving. He says she was given orthopedic follow-up but was unable to get an appointment. Denies any other injuries. (Ge Ramirez) - Related Data Home Medications Medication Instructions Recorded Confirmed Atenolol [Tenormin] 50 mg PO DAILY 07/29/18 08/16/19 Aspirin EC [Ecotrin Low Dose] 81 mg PO DAILY 04/03/19 08/16/19 Vitamin B Complex 1 cap PO DAILY 04/03/19 08/16/19 Lisdexamfetamine Dimesylate 50 mg PO QAM 04/27/19 08/16/19 [Vyvanse] Omeprazole [PriLOSEC] 40 mg PO DAILY 05/08/19 08/16/19 Escitalopram [Lexapro] 10 mg PO DAILY 08/16/19 08/16/19 clonazePAM [KlonoPIN] 0.25 mg PO TID 08/16/19 08/16/19 Previous Rx's Medication Instructions Recorded Gabapentin [Neurontin] 400 mg PO TID #90 cap 05/11/19 Allergies Allergy/AdvReac Type Severity Reaction Status Date / Time ketorolac [From Toradol] Allergy Anaphylaxis Verified 08/14/19 11:32 shellfish derived Allergy Anaphylaxis Verified 08/16/19 12:53 tramadol [From Ultram] Allergy Anaphylaxis Verified 08/16/19 12:18 ibuprofen AdvReac HIVES Verified 08/16/19 12:18 morphine AdvReac NAUSEA AND Verified 08/16/19 12:18 VOMITING Review of Systems ROS Other: All systems not noted in ROS Statement are negative. <Ge Ramirez P - Last Filed: 08/14/19 17:04> ROS Other: All systems not noted in ROS Statement are negative. <Mike Chance - Last Filed: 08/17/19 22:27> ROS Statement: Those systems with pertinent positive or pertinent negative responses have been documented in the HPI. Past Medical History Past Medical History: COPD, GERD/Reflux, Hypertension, Pneumonia, Skin Disorder Additional Past Medical History / Comment(s): chronic back pain, lumbar degener ative disc disease, insomnia, hx shingles, hiatal hernia, kidney stones. 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, migraines,; obstetrical history is significant for 1 miscarriage and 1 term that required a section, stiff and painful neck since yesterday morning Last Myocardial Infarction Date:: 08/27/2016 History of Any Multi-Drug Resistant Organisms: MRSA Date of last positivie culture/infection: 09/22/09 MDRO Source:: neck Past Surgical History: Appendectomy, Back Surgery, Section, Cholecystectomy Additional Past Surgical History / Comment(s): Cervical spine fusion with insertion of a metal plate, EGD, colonoscopy, lumbar rhizotomy and radiofrequency ablation, Past Anesthesia/Blood Transfusion Reactions: No Reported Reaction Additional Past Anesthesia/Blood Transfusion Reaction / Comment(s): CLAUSTROPHOBIA Past Psychological History: ADD/ADHD, Anxiety Smoking Status: Current every day smoker Past Alcohol Use History: Rare Past Drug Use History: None Reported - Past Family History Father Family Medical History: Cancer Additional Family Medical History / Comment(s): Father at age 48 from lung cancer. Mother Family Medical History: Congestive Heart Failure (CHF), CVA/TIA Additional Family Medical History / Comment(s): Mother is alive at age 68. She has suffered from a CVA and has chronic back problems. Patient has 2 brothers and 4 sisters with no major medical problems. <Ge Ramirez P - Last Filed: 08/14/19 17:04> General Exam Limitations: no limitations General appearance: alert, in no apparent distress Head exam: Present: atraumatic, normocephalic, normal inspection Eye exam: Present: normal appearance, PERRL, EOMI. Absent: scleral icterus, conjunctival injection, periorbital swelling ENT exam: Present: normal exam, normal oropharynx, mucous membranes moist, TM's normal bilaterally, normal external ear exam Neck exam: Present: normal inspection, full ROM. Absent: tenderness, meningismus, lymphadenopathy Respiratory exam: Present: normal lung sounds bilaterally. Absent: respiratory distress, wheezes, rales, rhonchi, stridor Cardiovascular Exam: Present: regular rate, normal rhythm, normal heart sounds. Absent: systolic murmur, diastolic murmur, rubs, gallop, clicks Extremities exam: Present: tenderness (Tenderness noted to the dorsal aspect of the left wrist.), normal capillary refill (Refill less than 2 seconds, radial pulse 2+ in the left upper extremity.), joint swelling (Significant edema noted of the left forearm), other (Sensation is diminished in all digits of the left hand). Absent: full ROM (Patient unable to flex or extend the left wrist secondary to pain but is able to wiggle all digits of the left hand), pedal edema, calf tenderness Neurological exam: Present: alert <Ge Ramirez P - Last Filed: 08/14/19 17:04> Course Vital Signs 08/14/19 08/14/19 08/14/19 11:29 13:05 16:15 Temperature 98.3 F Pulse Rate 110 H 104 H 93 Respiratory 20 18 18 Rate Blood Pressure 128/82 122/91 132/91 O2 Sat by Pulse 98 98 97 Oximetry 08/14/19 08/14/19 08/14/19 16:20 16:25 16:30 Temperature Pulse Rate 96 98 102 H Respiratory 14 14 16 Rate Blood Pressure 124/109 135/101 143/117 O2 Sat by Pulse 100 100 100 Oximetry 08/14/19 08/14/19 08/14/19 16:35 17:05 17:16 Temperature 98.1 F Pulse Rate 101 H 83 97 Respiratory 16 18 16 Rate Blood Pressure 143/117 141/93 141/93 O2 Sat by Pulse 100 98 99 Oximetry 08/14/19 08/14/19 08/14/19 17:32 17:33 17:35 Temperature 98.8 F 98.8 F Pulse Rate 87 71 71 Respiratory 18 16 16 Rate Blood Pressure 146/94 112/68 146/94 O2 Sat by Pulse 98 96 96 Oximetry Procedures - Orthopedic Splinting/Casting Injury #1 Side: left Upper Extremity Injury Location: wrist Upper Extremity Immobilizer: sugar tong splint <Ge Ramirez - Last Filed: 08/14/19 17:04> - Orthopedic Fracture Reduction Fracture #1 Consent Obtained: written consent Side: left Fracture Reduction Location: radius Analgesia: procedural sedation Technique: direct manipulation Post Reduction X-rays Demonstrate: acceptable reduction Post-Reduction Neuro Exam: intact Post-Reduction Vascular Exam: intact Splint Applied: Yes Patient Tolerated Procedure: well - Procedural Sedation Procedural Sedation Start Time: 16:16 Procedural Sedation Stop Time: 16:44 Indications: fracture/dislocation reduction ASA Class: II Mallampati Airway Score: 2 Preparation: campus monitor applied, pulse oximeter, capnometry used, supplemental O2 applied, suction/airway equipment at bedside IV Propofol Dose (mgs): 60 Complications: none Interventions: oxygen applied Patient Tolerated Procedure: well <Mike Chance - Last Filed: 08/17/19 22:27> Medical Decision Making <Ge Ramirez - Last Filed: 08/14/19 17:04> - Medical Decision Making HPI and physical exam as documented. X-ray of the left wrist shows a moderately comminuted distal radial fracture with displacement noted estimated at 6 mm intra-articular extension is evident. I discussed this case with Lucina LIMA of Dr. English. Recommend reducing the wrist and having her follow up outpatient with Dr Lockett. The wrist was reduced using propofol fall. X-ray showed a much improved apposition and alignment of the fragments compared to initial exam. Neurovascular status intact after splint applied. I spoke with Lucina LIMA again about this and she recommends follow-up with Dr. Lockett. Patient be given starter pack of Tylenol 3. She'll return here if she has any worsening symptoms. (Ge Ramirez) Disposition Is patient prescribed a controlled substance at d/c from ED?: No Time of Disposition: 16:06 <Ge Ramirez - Last Filed: 08/14/19 17:04> <Mike Chance - Last Filed: 08/17/19 22:27> Clinical Impression: Wrist fracture, left Disposition: HOME SELF-CARE Condition: Good Instructions (If sedation given, give patient instructions): Wrist Fracture in Adults (ED), Moderate Sedation (ED) Additional Instructions: Keep splint in place. Continue to take Lily Dale for pain. Follow-up with Dr Lockett in 1-2 days. Return to the emergency department if you have any worsening symptoms. Referrals: Joyce Klein DO [Primary Care Provider] - 1-2 days Derrek Lockett DO [Medical Doctor] - 1-2 days
[2019-08-14 16:31] VITALS: RESP 16
[2019-08-14] MEDS ORDERED: HYDROmorphone 1 MG/ML 1 ML SYRINGE IVP STA (16:35)
--- NOTE | 2019-08-14 16:47 | XR ---
EXAMINATION TYPE: XR wrist limited LT DATE OF EXAM: 08/14/2019 COMPARISON: Today HISTORY: Post reduction TECHNIQUE: 2 views FINDINGS: There is comminuted impacted distal radius fracture. There is mild anterior angulation at t he fracture site on the lateral view. There is significant improvement apposition and alignment of th e radius fracture fragments. The carpal bones are intact. IMPRESSION: Much improved apposition and alignment of the fragments compared to initial exam.
[2019-08-14] MEDS ORDERED: ACET/COD 300 MG/30 MG STARTER PACK 6 TAB BTL PO STA (17:24)
[2019-08-14 17:35] VITALS: PULSE 71; TEMP 98.8
[2019-08-14 17:36] VITALS: BP 146/94
== END 2019-08-14 17:44 | disposition home or self-care (01) ==
LOC: EC 11:26
DX: S52.592A Other fractures of lower end of left radius, initial encounter for closed fracture (principal); K21.9 Gastro-esophageal reflux disease without esophagitis; I10 Essential (primary) hypertension; I25.2 Old myocardial infarction; F41.9 Anxiety disorder, unspecified; F17.200 Nicotine dependence, unspecified, uncomplicated; Z79.82 Long term (current) use of aspirin; Z79.899 Other long term (current) drug therapy; Z88.5 Allergy status to narcotic agent; Z88.6 Allergy status to analgesic agent; Z91.013 Allergy to seafood; W19.XXXA Unspecified fall, initial encounter
CPT/HCPCS: 99283; 25605; 99152; 99153; 96374; 96361; 96372 ×2; 73090; 73100; 73120; J1170 ×2; J2704

== ENCOUNTER 2019-08-18 13:43 | Day surgery (SDC) | payer OTHER ==
[2019-08-16 12:51] VITALS: BMI 28.9
[~2019-08-18 13:43] MED LIST changes: +DEXAMETHASONE SOD PHOSPHATE 10 MG/ML 1 ML VIAL IV ONE; +HYDROmorphone 0.5 MG/0.5 ML SYRINGE IVP PRN; +LIDOCAINE 1% 20 ML VIAL (10MG/ML) FOR IV START INTRADERMA PRN; +ONDANSETRON 4 MG/2 ML VIAL IVP ONE
[2019-08-18 14:45] VITALS: RESP 18
[2019-08-18] MEDS: fentaNYL (PF) 50 MCG/ML 2 ML AMP IVP ONE ×2 (14:52→15:22)
[2019-08-18] MEDS ORDERED: MIDAZOLAM 2 MG/2 ML VIAL IVP ONE (15:16)
[2019-08-18] MEDS ORDERED: fentaNYL (PF) 50 MCG/ML 2 ML AMP ONE (17:52)
[2019-08-18] MEDS ORDERED: ROPIVACAINE 5 MG/ML 30 ML VIAL ONE (17:52)
[2019-08-18] MEDS ORDERED: SUCCINYLCHOLINE CHLORIDE 100 MG/5 ML SYR IV ONE (17:52)
[2019-08-18] MEDS ORDERED: HYDROmorphone (PF) 1 MG/ML ONE (17:52)
[2019-08-18] MEDS ORDERED: MIDAZOLAM 2 MG/2 ML VIAL ONE (17:52)
[2019-08-18] MEDS ORDERED: DEXAMETHASONE SOD PHOSPHATE 4 MG/ML 1 ML VIAL ONE (17:52)
[2019-08-18] MEDS ORDERED: ROCURONIUM BROMIDE 10 MG/ML 10 ML VIAL IV ONE (17:52)
[2019-08-18] MEDS ORDERED: KETAMINE 10 MG/ML 20 ML VIAL ONE (17:52)
[2019-08-18] MEDS ORDERED: PROPOFOL 10 MG/ML 20 ML VIAL IV ONE (17:52)
[2019-08-18] MEDS ORDERED: LIDOCAINE 1% INJ 10MG/ML (20 ML MDV) SQ ONE (18:32)
[2019-08-18] MEDS ORDERED: BUPIVACAINE (PF) 0.5% 30 ML VIAL SQ ONE ×2 (18:32)
[2019-08-18] MEDS ORDERED: LIDOCAINE 1%-EPI 1:100,000 20 ML VIAL SQ ONE (18:32)
[2019-08-18] MEDS ORDERED: LACTATED RINGERS 1,000 ML IV ONE (20:49)
[2019-08-18 22:53] VITALS: BP 123/75; PULSE 116; TEMP 97.7
--- NOTE | 2019-08-19 16:02 | P.ANPRN ---
Procedure Note - Anesthesia - Nerve Block Performed Left Supraclavicular Single Time Out Performed: Yes Date of Procedure: 08/18/19 Procedure Start Time: 15:16 Procedure Stop Time: 15:22 Location of Patient: PreOp Indication: Acute Post-Operative Pain, Requested by Surgeon Sedation Type: Sedate with meaningful contact maintained Preparation: Sterile Prep Position: Supine Needle Types: Pajunk Needle Gauge: 21 Ultrasound used to visualize needle placement: Yes Ultrasound used to observe medication spread: Yes Blood Aspirated: No Pain Paresthesia on Injection Noted: No Resistance on Injection: Normal Image Stored and Saved: Yes Events: Uneventful and Well Tolerated (Ropivacaine 0.5% 30 mL plus dexamethasone 4 mg)
--- NOTE | 2019-08-19 19:20 | FL ---
Fluoroscopy HISTORY: Open reduction internal fixation left wrist 1.32 minutes fluoroscopy time supplied to the referring clinician. 5 intraoperative C-arm images doc ument the procedure. See dictated report from orthopedic surgery.
--- NOTE | 2019-08-19 19:21 | XR ---
Limited left wrist HISTORY: Fracture 5 intraoperative C-arm images document the procedure.
--- NOTE | 2019-08-24 19:38 | P.OP ---
Date of Procedure: 08/18/19 Preoperative Diagnosis: Comminuted intra-articular left distal radius fracture Postoperative Diagnosis: Comminuted intra-articular left distal radius fracture Procedure(s) Performed: Open reduction and internal fixation of comminuted, intra-articular left distal radius fracture (greater than three parts) Implants: Acumed AcuLoc2 volar distal radius plate, left narrow, with locking and cortical screws Anesthesia: MILAGROA, regional Surgeon: Derrek Lockett Estimated Blood Loss (ml): 25 Condition: stable Disposition: PACU Indications for Procedure: The patient is a 49-year-old female who sustained a displaced left distal radius fracture after falling from a bunk bed. Treatment options were discussed in the office and surgical stabilization was recommended. Risks and benefits were reviewed including (but not limited to) the risks of infection, bleeding, injury to tendons and neurovascular structures, and possible need for additional surgery. She expressed understanding and wished to proceed with surgery. In preop, the surgical site was confirmed and marked. Consent forms were signed. Description of Procedure: The patient was administered a regional nerve block by the anesthesia team and then was brought to the operating suite. She was positioned supine with the operative limb on a hand table. All bony prominences were well-padded. Anesthesia and prophylactic IV antibiotics were administered. A tourniquet was placed on the left arm, which was then prepped and draped in standard, sterile fashion. A timeout was performed, confirming patient identifiers, the operative side, the site and the procedure to be performed: all team members expressed agreement. The limb was exsanguinated with an Esmarch the tourniquet was inflated. A standard volar FCR approach was utilized. The skin was incised sharply, curving gently across the wrist flexion crease. The subcutaneous tissues were bluntly spread. The radial artery was identified and protected throughout the case. The FCR sheath was incised and the tendon was mobilized. The floor of the sheath was released and blunt dissection proceeded down to the pronator quadratus, which was sharply incised along its radial border and subperiosteally elevated in an ulnar direction. The transitional fiber zone was elevated and the fracture site was visualized. There were transverse fractures across the volar metaphysis, with another extending into distally into the radial styloid. The radial styloid fragment itself was comminuted. A large fragment of the dorsal metaphysis was displaced into the medullary canal, seen on intraoperative imaging. Another fracture line was identified, running parallel to the volar rim of the radius, with extension into the radiocarpal joint. A manual reduction was performed but residual displacement remained. A Renner was inserted into the fracture site to mobilize the impacted dorsal fracture fragments. A 0.062 K wire was introduced percutaneously into the radial styloid. The fracture was manually reduced, using a combination of axial traction, ulnar deviation and palmar translation. With the fracture held reduced, the wire was advanced across the fracture site. Good provisional reduction was achieved. A second wire (0.054) was inserted in a similar fashion for additional stability. The plate was selected, based on the patients anatomy and fracture pattern, and was placed on the volar radius. Position was adjusted until satisfactory (confirmed on imaging); it was pinned in place with K wires. The distal aspect of the plate was not fitting well on the volar radius, due to some residual shortening and dorsal angulation. The percutaneous K wires across the fracture site were backed out. The fracture was remanipulated, using the plate as a reduction tool, but persistent malreduction remained. The plate was removed. The brachioradialis was partially released to alleviate this as a deforming force. A reduction clamp was placed on the radial shaft. Axial traction was applied to the hand, holding firmly on the clamp proximally to regain length. The Renner was again inserted into the fracture site to elevate the impacted articular surface and reestablish volar tilt. With the fracture held in this position, the percutaneous K wires were readvanced. Improved reduction was achieved and confirmed on imaging. The plate was secured with K wires. A cortical screw was drilled, measured and inserted into the oblong hole of the shaft. The distal locking screws were drilled, measured and inserted, checking length and trajectory with intraoperative fluoroscopy. An additional cortical screw was drilled, measured and inserted to further secure the plate to the metaphysis. Final x-rays were obtained, including an inclined lateral view to confirm extra- articular screw placement. The wrist was then ranged under live fluoroscopy - no motion of the fracture fragments or fixation construct was appreciated. The tourniquet was released and good hemostasis was obtained with manual pressure and electrocautery. The wound was thoroughly irrigated with normal saline. The pronator quadratus was loosely repaired over the plate with interrupted Vicryl sutures. The subcutaneous tissues were reapproximated with interrupted Vicryl sutures and the incision was closed with interrupted horizontal mattress sutures of 4-0 nylon. Local anesthetic with epinephrine was injected into the perioperative subcutaneous tissues for adjunctive postoperative pain control and hemostasis. Sterile dressings were applied, followed by a short arm plaster splint. All sponge, needle and instrument counts were correct at the end of the case. The patient tolerated the procedure well and was taken to the recovery room in stable condition.
== END 2019-08-18 21:50 | disposition home or self-care (01) ==
LOC: OR 13:43 → 1SOBS 21:50 → OR 23:39
PROVIDERS: ATTEND Orthopaedic Surgery
DX: S52.572A Other intraarticular fracture of lower end of left radius, initial encounter for closed fracture (principal); I10 Essential (primary) hypertension; Z88.6 Allergy status to analgesic agent; Z88.5 Allergy status to narcotic agent; Z79.82 Long term (current) use of aspirin; Z79.899 Other long term (current) drug therapy; Z90.49 Acquired absence of other specified parts of digestive tract; Z98.1 Arthrodesis status; Z72.0 Tobacco use; Z79.891 Long term (current) use of opiate analgesic; Z82.49 Family history of ischemic heart disease and other diseases of the circulatory system; W06.XXXA Fall from bed, initial encounter
CPT/HCPCS: 64415; 76942; 73100; 25609; C1713; J2250; J1100 ×2; J0690; J2405; J3010; J1170; J2795; J0330; J2704

== ENCOUNTER 2019-08-19 14:45 | Emergency (ER) | payer OTHER ==
[2019-08-19 15:03] VITALS: RESP 18; TEMP 98.4
[2019-08-19] MEDS ORDERED: HYDROmorphone 1 MG/ML 1 ML SYRINGE IM STA ×2 (15:24→16:22)
--- NOTE | 2019-08-19 16:22 | ED ---
General Adult HPI - General Chief complaint: Extremity Injury, Upper Stated complaint: Arm pain Time Seen by Provider: 08/19/19 15:23 Source: patient, RN notes reviewed Mode of arrival: wheelchair Limitations: no limitations - History of Present Illness Initial comments: 49 year old female presents for left arm pain. Patient had displaced fracture of the left distal radius. Patient underwent surgery yesterday. Patient states she had a block performed that wore off earlier today. States she has been in pain now for about 3 hours. Patient states her fingers are numb which has been consistent since before the surgery. States she does have increased range of motion since the surgery was performed. Patient reports taking Percocet at home.Patient has no other complaints at this time including shortness of breath, chest pain, abdominal pain, nausea or vomiting, headache, or visual changes. - Related Data Home Medications Medication Instructions Recorded Confirmed Atenolol [Tenormin] 50 mg PO DAILY 07/29/18 08/18/19 Aspirin EC [Ecotrin Low Dose] 81 mg PO DAILY 04/03/19 08/18/19 Vitamin B Complex 1 cap PO DAILY 04/03/19 08/18/19 Lisdexamfetamine Dimesylate 50 mg PO QAM 04/27/19 08/18/19 [Vyvanse] Omeprazole [PriLOSEC] 40 mg PO DAILY 05/08/19 08/18/19 Escitalopram [Lexapro] 10 mg PO DAILY 08/16/19 08/18/19 clonazePAM [KlonoPIN] 0.25 mg PO TID 08/16/19 08/18/19 Previous Rx's Medication Instructions Recorded Gabapentin [Neurontin] 400 mg PO TID #90 cap 05/11/19 oxyCODONE-APAP 5-325MG [Percocet 1 tab PO Q4HR PRN #50 tab 08/18/19 5-325 mg] Allergies Allergy/AdvReac Type Severity Reaction Status Date / Time ketorolac [From Toradol] Allergy Anaphylaxis Verified 08/18/19 14:24 shellfish derived Allergy Anaphylaxis Verified 08/18/19 14:24 tramadol [From Ultram] Allergy Anaphylaxis Verified 08/18/19 14:24 ibuprofen AdvReac HIVES Verified 08/18/19 14:24 morphine AdvReac NAUSEA AND Verified 08/18/19 14:24 VOMITING Review of Systems ROS Statement: Those systems with pertinent positive or pertinent negative responses have been documented in the HPI. ROS Other: All systems not noted in ROS Statement are negative. Past Medical History Past Medical History: COPD, GERD/Reflux, Hypertension, Pneumonia Additional Past Medical History / Comment(s): chronic back pain, lumbar degenerative disc disease, insomnia, hx shingles, hiatal hernia, kidney stones. 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, migraines,; NECK PAIN , LEFT WRIST FRACTURE Last Myocardial Infarction Date:: 08/27/2016 History of Any Multi-Drug Resistant Organisms: MRSA Date of last positivie culture/infection: 09/22/09 MDRO Source:: neck Past Surgical History: Appendectomy, Back Surgery, Section, Cholecystectomy, Orthopedic Surgery Additional Past Surgical History / Comment(s): Cervical spine fusion with insertion of a metal plate, EGD, colonoscopy, radiofrequency ablation, Past Anesthesia/Blood Transfusion Reactions: No Reported Reaction Additional Past Anesthesia/Blood Transfusion Reaction / Comment(s): CLAUSTROPHOBIA Past Psychological History: ADD/ADHD, Anxiety, Panic Disorder Smoking Status: Current every day smoker Past Alcohol Use History: None Reported Past Drug Use History: None Reported - Past Family History Father Family Medical History: Cancer Additional Family Medical History / Comment(s): Father at age 48 from lung cancer. Mother Family Medical History: Congestive Heart Failure (CHF), CVA/TIA Additional Family Medical History / Comment(s): Mother is alive at age 68. She has suffered from a CVA and has chronic back problems. Patient has 2 brothers and 4 sisters with no major medical problems. General Exam Limitations: no limitations General appearance: alert, in no apparent distress Head exam: Present: atraumatic, normocephalic, normal inspection Eye exam: Present: normal appearance, PERRL, EOMI. Absent: scleral icterus, conjunctival injection, periorbital swelling ENT exam: Present: normal exam, mucous membranes moist Neck exam: Present: normal inspection, full ROM. Absent: tenderness, meningismus, lymphadenopathy Respiratory exam: Present: normal lung sounds bilaterally. Absent: respiratory distress, wheezes, rales, rhonchi, stridor Cardiovascular Exam: Present: regular rate, normal rhythm, normal heart sounds. Absent: systolic murmur, diastolic murmur, rubs, gallop, clicks Extremities exam: Present: full ROM (Patient able to move all fingers of the left hand. She has limited range motion of the left wrist secondary to pain.), normal capillary refill (Capillary refill less than 2 seconds in all digits of the left hand. Radial pulse is 2+ and strong.), other (Mild edema of the left forearm however no significant swelling noted. Compartments are soft. Sensation is intact in all digits of the left hand.). Absent: tenderness, pedal edema, joint swelling, calf tenderness Course Vital Signs 08/19/19 08/19/19 15:01 16:55 Temperature 98.4 F 98.4 F Pulse Rate 104 H 100 Respiratory 18 18 Rate Blood Pressure 170/63 168/70 O2 Sat by Pulse 98 98 Oximetry Procedures - Orthopedic Splinting/Casting Injury #1 Side: left Upper Extremity Injury Location: short arm Upper Extremity Immobilizer: volar splint Additional Comments: Neurovascular status intact after splint applied Medical Decision Making - Medical Decision Making She had volar splint in place. This was removed. I do not see any evidence for compartment syndrome. Compartments are soft. Arm is mildly edematous. Neurovascular status is intact left upper extremity. Improvement in symptoms after this splint removed. She was splinted again. Patient will be discharged home to follow-up with her orthopedist. She will return here she has any worsening symptoms. Discussed case with Dr Pete Disposition Clinical Impression: Post-op pain, Distal radius fracture, left Disposition: HOME SELF-CARE Condition: Good Instructions (If sedation given, give patient instructions): Wrist Fracture in Adults (ED) Additional Instructions: Please take pain medications at home. Keep splint dry. Follow-up with your orthopedic doctor tomorrow. Return to the emergency department if you've any worsening symptoms. Is patient prescribed a controlled substance at d/c from ED?: No Referrals: Joyce Klein DO [Primary Care Provider] - 1-2 days Derrek Lockett DO [Medical Doctor] - 1-2 days Time of Disposition: 16:26
[2019-08-19] MEDS ORDERED: HYDROmorphone 0.5 MG/0.5 ML SYRINGE IM STA (16:48)
[2019-08-19 16:55] VITALS: BP 168/70; PULSE 100
== END 2019-08-19 16:56 | disposition home or self-care (01) ==
LOC: EC 14:45
DX: S52.502D Unspecified fracture of the lower end of left radius, subsequent encounter for closed fracture with routine healing (principal); G89.18 Other acute postprocedural pain; Z98.890 Other specified postprocedural states; I10 Essential (primary) hypertension; K21.9 Gastro-esophageal reflux disease without esophagitis; F41.0 Panic disorder [episodic paroxysmal anxiety]; F90.9 Attention-deficit hyperactivity disorder, unspecified type; I25.2 Old myocardial infarction; F17.200 Nicotine dependence, unspecified, uncomplicated; Z79.82 Long term (current) use of aspirin; Z79.899 Other long term (current) drug therapy; Z88.5 Allergy status to narcotic agent; Z88.6 Allergy status to analgesic agent; Z91.013 Allergy to seafood; X58.XXXD Exposure to other specified factors, subsequent encounter
CPT/HCPCS: 99283; 29125; 96372 ×3; J1170 ×2

== ENCOUNTER 2019-09-08 16:26 | Emergency (ER) | payer OTHER ==
[2019-09-08] MEDS ORDERED: HYDROmorphone 0.5 MG/0.5 ML SYRINGE IVP STA ×2 (17:20→18:50)
[2019-09-08] MEDS ORDERED: ONDANSETRON 4 MG/2 ML VIAL IVP STA (17:27)
[2019-09-08 18:01] LABS: ALT 16 U/L (4-34); AST 24 U/L (14-36); African American GFR (CKD) >90 (>60 ml/min/1.73 sqM); Albumin 4.2 g/dL (3.5-5.0); Alkaline Phosphatase 114 U/L (38-126); Anion Gap 9 mmol/L; Blood Urea Nitrogen 11 mg/dL (7-17); Calcium 9.8 mg/dL (8.4-10.2); Carbon Dioxide 24 mmol/L (22-30); Chloride 104 mmol/L (98-107); Glucose 99 mg/dL (74-99); Non-African American GFR(CKD) >90 (>60 ml/min/1.73 sqM); Sodium 137 mmol/L (137-145); Total Bilirubin 0.3 mg/dL (0.2-1.3)
[2019-09-08 18:03] LABS: HGB 13.7 gm/dL (11.4-16.0); MCH 31.2 pg (25.0-35.0); MCHC 32.6 g/dL (31.0-37.0); MCV 95.9 fL (80.0-100.0); Mean Platelet Volume 7.1; Platelet Count 287 k/uL (150-450); RBC 4.39 m/uL (3.80-5.40); RDW 13.3 % (11.5-15.5)
--- NOTE | 2019-09-08 18:17 | XR ---
EXAMINATION TYPE: XR wrist complete LT DATE OF EXAM: 09/08/2019 COMPARISON: 08/14/2019 HISTORY: Pain TECHNIQUE: Four views submitted. FINDINGS: Postsurgical changes are seen with persistent nonunion comminuted fracture of the distal radius exten ding to the articular surface. There is soft tissue edema. On the lateral view there is displacement of the fracture line. No overtly destructive changes seen. IMPRESSION: 1. Postsurgical change with comminuted intra-articular fracture of the distal radius and soft tissue edema. Correlate for posttraumatic edema versus cellulitis.
[2019-09-08 18:43] LABS: Lymphocytes # (M) 1.48 k/uL (1.0-4.8); Metamyelocytes # (M) 0.08 k/uL (0); Metamyelocytes % 2 %; Neutrophils # (M) 1.92 k/uL (1.3-7.7); Neutrophils % (M) 48 %; Nucleated Red Blood Cells 0 /100 WBC (0-0); Total Cells Counted 200
--- NOTE | 2019-09-08 18:58 | US ---
EXAMINATION TYPE: US venous doppler duplex UE DATE OF EXAM: 09/08/2019 COMPARISON: NONE CLINICAL HISTORY: fracture/surgery increasing arm swelling. Recent left wrist surgery, pain and swell ing SIDE PERFORMED: Left Left Arm: Negative for DVT Within the left axilla at the area of the patient's palpable lump, there is a hypoechoic area visuali zed measuring 2.0 x 1.3 x 2.0 cm IMPRESSION: No evidence of deep vein thrombosis in the left arm. There is left axillary mass that could be an enl arged lymph node.
--- NOTE | 2019-09-08 19:01 | ED ---
Upper Extremity HPI - General Chief Complaint: Extremity Injury, Upper Stated Complaint: Post op issue Time Seen by Provider: 09/08/19 16:58 Source: patient Mode of arrival: ambulatory Limitations: no limitations - History of Present Illness Initial Comments: 49-year-old female presented for chief complaint of left wrist pain patient states she had a fractured radius and had surgery on [address] Lockett. Patient sates she has had increasing pain and noted swelling. She states she was evaluated yesterday by Dr. Lockett, I contacted particularly stated he thought the swelling was consistent with postoperative changes. However recommend patient come to the ER today because she was stating over the phone that it was significantly increased. Patient denies any fevers she states she has not had significant range of motion since his surgery. Patient denies any numbness tingling or loss of sensation. Patient denies any chest pain shortness of breath or redness/drainage. Upon arrival patient appears well there is no signs of distress. Afebrile. - Related Data Home Medications Medication Instructions Recorded Confirmed Atenolol [Tenormin] 50 mg PO DAILY 07/29/18 08/18/19 Aspirin EC [Ecotrin Low Dose] 81 mg PO DAILY 04/03/19 08/18/19 Vitamin B Complex 1 cap PO DAILY 04/03/19 08/18/19 Lisdexamfetamine Dimesylate 50 mg PO QAM 04/27/19 08/18/19 [Vyvanse] Omeprazole [PriLOSEC] 40 mg PO DAILY 05/08/19 08/18/19 Escitalopram [Lexapro] 10 mg PO DAILY 08/16/19 08/18/19 clonazePAM [KlonoPIN] 0.25 mg PO TID 08/16/19 08/18/19 Previous Rx's Medication Instructions Recorded Gabapentin [Neurontin] 400 mg PO TID #90 cap 05/11/19 oxyCODONE-APAP 5-325MG [Percocet 1 tab PO Q4HR PRN #50 tab 08/18/19 5-325 mg] Cephalexin [Keflex] 500 mg PO Q6HR 7 Days #28 cap 09/08/19 Allergies Allergy/AdvReac Type Severity Reaction Status Date / Time ketorolac [From Toradol] Allergy Anaphylaxis Verified 09/08/19 16:44 shellfish derived Allergy Anaphylaxis Verified 09/08/19 16:44 tramadol [From Ultram] Allergy Anaphylaxis Verified 09/08/19 16:44 ibuprofen AdvReac HIVES Verified 09/08/19 16:44 morphine AdvReac NAUSEA AND Verified 09/08/19 16:44 VOMITING Review of Systems ROS Statement: Those systems with pertinent positive or pertinent negative responses have been documented in the HPI. ROS Other: All systems not noted in ROS Statement are negative. Past Medical History Past Medical History: COPD, GERD/Reflux, Hypertension, Pneumonia Additional Past Medical History / Comment(s): chronic back pain, lumbar degenerative disc disease, insomnia, hx shingles, hiatal hernia, kidney stones. 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, migraines,; NECK PAIN , LEFT WRIST FRACTURE Last Myocardial Infarction Date:: 08/27/2016 History of Any Multi-Drug Resistant Organisms: MRSA Date of last positivie culture/infection: 09/22/09 MDRO Source:: neck Past Surgical History: Appendectomy, Back Surgery, Section, Cholecystectomy, Orthopedic Surgery Additional Past Surgical History / Comment(s): Cervical spine fusion with insertion of a metal plate, EGD, colonoscopy, radiofrequency ablation,wrist left sided Past Anesthesia/Blood Transfusion Reactions: No Reported Reaction Additional Past Anesthesia/Blood Transfusion Reaction / Comment(s): CLAUSTROPHOBIA Past Psychological History: ADD/ADHD, Anxiety, Panic Disorder Smoking Status: Current some day smoker Past Alcohol Use History: None Reported Past Drug Use History: None Reported - Past Family History Father Family Medical History: Cancer Additional Family Medical History / Comment(s): Father at age 48 from lung cancer. Mother Family Medical History: Congestive Heart Failure (CHF), CVA/TIA Additional Family Medical History / Comment(s): Mother is alive at age 68. She has suffered from a CVA and has chronic back problems. Patient has 2 brothers and 4 sisters with no major medical problems. General Exam - General Exam Comments Initial Comments: General: The patient is awake and alert, in no distress Eye: +3 mm pupils are equal, round and reactive to light, extra-ocular movemen ts are intact. No nystagmus. There is normal conjunctiva bilaterally. No signs of icterus. Ears, nose, mouth and throat: There are moist mucous membranes and no oral les ions. Cardiovascular: There is a regular rate and rhythm. No murmur, rub or gallop is appreciated. Respiratory: Lungs are clear to auscultation, respirations are non-labored, breath sounds are equal. No wheezes, stridor, rales, or rhonchi. Gastrointestinal: Soft, non-distended, non-tender abdomen without masses or org anomegaly noted. There is no rebound or guarding present. No CVA tenderness. Musculoskeletal: There is mild soft tissue swelling of the left distal forearm, no redness, incision midline on the ventral aspect, no swelling or drainage. Mild warmth. Refuses to fully range at the wrist. No wrist drop. Able to make ok, fingers crossed thumbs up sign. Sensation intact of the UE b/l. Radial pulses equal bilaterally 2+. Neurological: A&O x 3. CN II-XII intact grossly, There are no obvious motor or sensory deficits. Coordination appears grossly intact. Speech is normal. Skin: Skin is warm and dry and no rashes or lesions are noted. Psychiatric: Cooperative, appropriate mood & affect, normal judgment. Limitations: no limitations Course Vital Signs 09/08/19 09/08/19 16:42 19:41 Temperature 97.5 F L 97.5 F L Pulse Rate 80 74 Respiratory 16 16 Rate Blood Pressure 131/89 128/69 O2 Sat by Pulse 100 100 Oximetry Medical Decision Making - Medical Decision Making 49yo female presenting for left wrist pain. Post op, surgery 08/18. Contacted Dr. Lockett, described exam findings--he feels this is consistent with exam yesterday and is agreeable to work up with outpatient f/u. Patient Labs reveal no leukocytosis, XR reveal edema post-op versus cellulitis, No obvious cellulitis on exam. Patient US (-) for DVT> Patient afebrile does not appear toxic and is neurovascularly intact. I had the patient evaluated by my attending provider Dr. Hummel who recommends discharge with Cathryn f/u. Patient will be given keflex. Patient is agreeable to discharge. Return parameters were discussed, patient was discharged appearing well. - Lab Data Result diagrams: 09/08/19 17:30 09/08/19 17:30 Lab Results 09/08/19 09/08/19 Range/Units 17:30 17:30 WBC 4.0 (3.8-10.6) k/uL RBC 4.39 (3.80-5.40) m/uL Hgb 13.7 (11.4-16.0) gm/dL Hct 42.0 (34.0-46.0) % MCV 95.9 (80.0-100.0) fL MCH 31.2 (25.0-35.0) pg MCHC 32.6 (31.0-37.0) g/dL RDW 13.3 (11.5-15.5) % Plt Count 287 (150-450) k/uL Neutrophils % (Manual) 48 % Lymphocytes % (Manual) 37 % Monocytes % (Manual) 10 % Eosinophils % (Manual) 5 % Metamyelocytes % 2 % Neutrophils # (Manual) 1.92 (1.3-7.7) k/uL Lymphocytes # (Manual) 1.48 (1.0-4.8) k/uL Monocytes # (Manual) 0.40 (0-1.0) k/uL Eosinophils # (Manual) 0.20 (0-0.7) k/uL Metamyelocytes # (Man) 0.08 H (0) k/uL Nucleated RBCs 0 (0-0) /100 WBC Sodium 137 (137-145) mmol/L Potassium 4.0 (3.5-5.1) mmol/L Chloride 104 (98-107) mmol/L Carbon Dioxide 24 (22-30) mmol/L Anion Gap 9 mmol/L BUN 11 (7-17) mg/dL Creatinine 0.70 (0.52-1.04) mg/dL Est GFR (CKD-EPI)AfAm >90 (>60 ml/min/1.73 sqM) Est GFR (CKD-EPI)NonAf >90 (>60 ml/min/1.73 sqM) Glucose 99 (74-99) mg/dL Calcium 9.8 (8.4-10.2) mg/dL Total Bilirubin 0.3 (0.2-1.3) mg/dL AST 24 (14-36) U/L ALT 16 (4-34) U/L Alkaline Phosphatase 114 (38-126) U/L Total Protein 7.0 (6.3-8.2) g/dL Albumin 4.2 (3.5-5.0) g/dL Disposition Clinical Impression: Mass of left axilla, Left wrist pain, Post-operative pain Disposition: HOME SELF-CARE Condition: Good Instructions (If sedation given, give patient instructions): Wrist Injury (ED) Additional Instructions: Please use medication as discussed. Please follow-up with family doctor in the next 2 days, and Dr. Lockett in next 2-3 days. Please return to emergency room if the symptoms increase or worsen or for any other concerns, fevers, increasing pain, swelling. Prescriptions: Cephalexin [Keflex] 500 mg PO Q6HR 7 Days #28 cap Is patient prescribed a controlled substance at d/c from ED?: No Referrals: Joyce Klein DO [Primary Care Provider] - 1-2 days Derrek Lockett DO [Medical Doctor] - 1-2 days Time of Disposition: 19:00
[2019-09-08 21:06] VITALS: BP 128/69; PULSE 74; RESP 16; TEMP 97.5
== END 2019-09-08 19:43 | disposition home or self-care (01) ==
LOC: EC 16:26
DX: G89.18 Other acute postprocedural pain (principal); R22.2 Localized swelling, mass and lump, trunk; M25.532 Pain in left wrist; S52.92XD Unspecified fracture of left forearm, subsequent encounter for closed fracture with routine healing; F41.9 Anxiety disorder, unspecified; F90.9 Attention-deficit hyperactivity disorder, unspecified type; G89.29 Other chronic pain; I10 Essential (primary) hypertension; I25.2 Old myocardial infarction; K21.9 Gastro-esophageal reflux disease without esophagitis; F17.200 Nicotine dependence, unspecified, uncomplicated; Z79.82 Long term (current) use of aspirin; Z79.899 Other long term (current) drug therapy; Z88.5 Allergy status to narcotic agent; Z88.6 Allergy status to analgesic agent; Z91.013 Allergy to seafood; Z98.890 Other specified postprocedural states; X58.XXXD Exposure to other specified factors, subsequent encounter; Z86.14 Personal history of Methicillin resistant Staphylococcus aureus infection
CPT/HCPCS: 36415; 80053; 85025; 73110; 93971; 99284; 96374; 96375; 96376; J2405; J1170

== ENCOUNTER 2019-09-09 17:04 | Emergency (ER) | payer OTHER ==
[2019-09-09 17:10] VITALS: RESP 18
[2019-09-09] MEDS ORDERED: HYDROmorphone 0.5 MG/0.5 ML SYRINGE IVP STA (17:20)
[2019-09-09 18:00] LABS: Basophils # (A) 0.1 k/uL (0-0.2); Basophils % (A) 3 %; Eosinophils # (A) 0.3 k/uL (0-0.7); Eosinophils % (A) 5 %; HCT 42.6 % (34.0-46.0); HGB 13.9 gm/dL (11.4-16.0); Lymphocytes # (A) 1.6 k/uL (1.0-4.8); Lymphocytes % (A) 30 %; MCH 31.1 pg (25.0-35.0); MCHC 32.6 g/dL (31.0-37.0); MCV 95.5 fL (80.0-100.0); Monocytes # (A) 0.5 k/uL (0-1.0); Monocytes % (A) 10 %; Neutrophils # (A) 2.6 k/uL (1.3-7.7); Neutrophils % (A) 50 %; Platelet Count 322 k/uL (150-450); RBC 4.46 m/uL (3.80-5.40); RDW 13.2 % (11.5-15.5); WBC 5.2 k/uL (3.8-10.6)
[2019-09-09 18:12] LABS: ALT 16 U/L (4-34); AST 21 U/L (14-36); African American GFR (CKD) >90 (>60 ml/min/1.73 sqM); Albumin 4.3 g/dL (3.5-5.0); Alkaline Phosphatase 126 U/L (38-126); Anion Gap 7 mmol/L; Blood Urea Nitrogen 11 mg/dL (7-17); C Reactive Protein 12.4 mg/L (<10.0); Calcium 9.6 mg/dL (8.4-10.2); Carbon Dioxide 28 mmol/L (22-30); Chloride 105 mmol/L (98-107); Creatine Kinase 41 U/L (30-135); Glucose 89 mg/dL (74-99); Non-African American GFR(CKD) >90 (>60 ml/min/1.73 sqM); Potassium 3.8 mmol/L (3.5-5.1); Sodium 140 mmol/L (137-145); Total Bilirubin 0.2 mg/dL (0.2-1.3); Total Protein 7.3 g/dL (6.3-8.2)
--- NOTE | 2019-09-09 18:14 | CT ---
EXAMINATION TYPE: CT wrist LT wo con DATE OF EXAM: 09/09/2019 COMPARISON: Yesterday HISTORY: left wrist pain, 2 weeks post-op CT DLP: 72.4 mGycm Automated exposure control for dose reduction was used. Multiple axial sections were obtained from the mid radius to the MP joints without contrast. There is plate and screws fixing anteriorly the comminuted fracture of the distal radius. Fragments a re in anatomic position. The carpal bones are intact. Intercarpal joint spaces are fairly normal. Fra cture line extends to the radiocarpal joint. The visualized metacarpals appear intact. Fracture lines are still visible. I see no focal bone destruction. Distal ulna is intact. There is mild soft tissue swelling anteriorly consistent with postsurgical changes. IMPRESSION: Satisfactory reduction of the radius fracture. No complicating process seen. No change in fragment po sition compared to exam yesterday.
--- NOTE | 2019-09-09 18:48 | ED ---
Upper Extremity HPI - General Chief Complaint: Extremity Injury, Upper Stated Complaint: Left Wrist Issues Source: patient Mode of arrival: ambulatory Limitations: no limitations - History of Present Illness Initial Comments: 49yo female with recent comminuted distal radius fractured repaired via ORIF on 08/18/[address] Nelson patient has since had pain and swelling. Patient feels it should be better by now. Patient concerned it is getting slightly more swollen. Patient disclosed today she has no pain medications. Patient cannot tolerate pain that occurs with movement she states. Patient has slightly decreased sensation digit #3-5, but full ROM of digits, refuses to full range the left wrist. denies pallor, coolness of extremity. Denies fall or new injury, Denies redness, warmth of the extremity. Denies fever, flu like symptoms. Patient was evaluated by myself yesterday where CBC WNL, US and XR WNL. Dr. Lockett called me prior to patient arrival today requesting ESR, CRP, and CT of the wrist with reevaluation. Upon arrival patient appears well no acute distr ess. - Related Data Home Medications Medication Instructions Recorded Confirmed Atenolol [Tenormin] 50 mg PO DAILY 07/29/18 08/18/19 Aspirin EC [Ecotrin Low Dose] 81 mg PO DAILY 04/03/19 08/18/19 Vitamin B Complex 1 cap PO DAILY 04/03/19 08/18/19 Lisdexamfetamine Dimesylate 50 mg PO QAM 04/27/19 08/18/19 [Vyvanse] Omeprazole [PriLOSEC] 40 mg PO DAILY 05/08/19 08/18/19 Escitalopram [Lexapro] 10 mg PO DAILY 08/16/19 08/18/19 clonazePAM [KlonoPIN] 0.25 mg PO TID 08/16/19 08/18/19 Previous Rx's Medication Instructions Recorded Gabapentin [Neurontin] 400 mg PO TID #90 cap 05/11/19 oxyCODONE-APAP 5-325MG [Percocet 1 tab PO Q4HR PRN #50 tab 08/18/19 5-325 mg] Cephalexin [Keflex] 500 mg PO Q6HR 7 Days #28 cap 09/08/19 Hydrocodone/Acetaminophen [[place] 1 tab PO Q6HR PRN 3 Days #12 tab 09/09/19 7.5-497] Allergies Allergy/AdvReac Type Severity Reaction Status Date / Time ketorolac [From Toradol] Allergy Anaphylaxis Verified 09/09/19 17:10 shellfish derived Allergy Anaphylaxis Verified 09/09/19 17:10 tramadol [From Ultram] Allergy Anaphylaxis Verified 09/09/19 17:10 ibuprofen AdvReac HIVES Verified 09/09/19 17:10 morphine AdvReac NAUSEA AND Verified 09/09/19 17:10 VOMITING Review of Systems ROS Statement: Those systems with pertinent positive or pertinent negative responses have been documented in the HPI. ROS Other: All systems not noted in ROS Statement are negative. Past Medical History Past Medical History: COPD, GERD/Reflux, Hypertension, Pneumonia Additional Past Medical History / Comment(s): chronic back pain, lumbar degenerative disc disease, insomnia, hx shingles, hiatal hernia, kidney stones. 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, migraines,; NECK PAIN , LEFT WRIST FRACTURE Last Myocardial Infarction Date:: 08/27/2016 History of Any Multi-Drug Resistant Organisms: MRSA Date of last positivie culture/infection: 09/22/09 MDRO Source:: neck Past Surgical History: Appendectomy, Back Surgery, Section, Cholecystectomy, Orthopedic Surgery Additional Past Surgical History / Comment(s): Cervical spine fusion with insertion of a metal plate, EGD, colonoscopy, radiofrequency ablation, Past Anesthesia/Blood Transfusion Reactions: No Reported Reaction Additional Past Anesthesia/Blood Transfusion Reaction / Comment(s): CLAUSTROPHOBIA Past Psychological History: ADD/ADHD, Anxiety, Panic Disorder Smoking Status: Current every day smoker Past Alcohol Use History: None Reported Past Drug Use History: None Reported - Past Family History Father Family Medical History: Cancer Additional Family Medical History / Comment(s): Father at age 48 from lung cancer. Mother Family Medical History: Congestive Heart Failure (CHF), CVA/TIA Additional Family Medical History / Comment(s): Mother is alive at age 68. She has suffered from a CVA and has chronic back problems. Patient has 2 brothers and 4 sisters with no major medical problems. General Exam - General Exam Comments Initial Comments: General: The patient is awake and alert, in no distress Eye: +3 mm pupils are equal, round and reactive to light, extra-ocular movements are intact. No nystagmus. There is normal conjunctiva bilaterally. No signs of icterus. Cardiovascular: There is a regular rate and rhythm. No murmur, rub or gallop is appreciated. Respiratory: Lungs are clear to auscultation, respirations are non-labored, breath sounds are equal. No wheezes, stridor, rales, or rhonchi. Musculoskeletal: UPon inspection fo the wrists b/lthere is mild soft tissue swelling of the left in comparison with the right, no redness, minimal warmth. Incision midline on ventral aspect of the left wrist. No drainge, dehiscence. P atient has no pain with passive ROM of digits. Refuses to full range at the wrist but can partially, she states it hurts to much. Sensation intake states slightly decreased digits #3-5. Capillary refill < 3 seconds. Ulnar pulse strong on doppler. Strong radial pulse, both equal b/l.Able to make the fingers crossed, thumbs up, ok and oppose small digits and thumb without difficulty of the left UE. Compartments soft and compressible. Neurological: A&O x 3. CN II-XII intactgrossly, There are no obvious motor or sensory deficits. Coordination appears grossly intact. Speech is normal. Skin: Skin is warm and dry and no rashes or lesions are noted. Psychiatric: Cooperative Limitations: no limitations Course Vital Signs 09/09/19 09/09/19 09/09/19 17:06 18:43 19:16 Temperature 98.0 F 98.2 F Pulse Rate 102 H 96 77 Respiratory 18 18 18 Rate Blood Pressure 138/85 116/79 99/60 O2 Sat by Pulse 99 99 97 Oximetry Medical Decision Making - Medical Decision Making 49yo female presenting to ER for cc of left wrist pain, sent for CT by Dr. Lockett. Labs stable. CPR < 20mg/L. ESR WNL. CT anatomical reduction. Patient neurovascularly intact. Discussed exam, imaging and lab findings with Dr. Lockett who personally reviewed CT and states he is agreeable to care plan an d recommends discharge with outpatient f/u. He will discuss care plan with patient Wednesday. Patient provided RX of norco for pain control, I discussed that this could compromise a pain contract, patient states that due to fracture pain management physician is ok with outside pain management. Patient discharged appearing well after discussing case with Dr. Hummel. - Lab Data Result diagrams: 09/09/19 17:40 09/09/19 17:40 Lab Results 09/09/19 09/09/19 Range/Units 17:40 17:40 WBC 5.2 (3.8-10.6) k/uL RBC 4.46 (3.80-5.40) m/uL Hgb 13.9 (11.4-16.0) gm/dL Hct 42.6 (34.0-46.0) % MCV 95.5 (80.0-100.0) fL MCH 31.1 (25.0-35.0) pg MCHC 32.6 (31.0-37.0) g/dL RDW 13.2 (11.5-15.5) % Plt Count 322 (150-450) k/uL Neutrophils % 50 % Lymphocytes % 30 % Monocytes % 10 % Eosinophils % 5 % Basophils % 3 % Neutrophils # 2.6 (1.3-7.7) k/uL Lymphocytes # 1.6 (1.0-4.8) k/uL Monocytes # 0.5 (0-1.0) k/uL Eosinophils # 0.3 (0-0.7) k/uL Basophils # 0.1 (0-0.2) k/uL ESR 17 (0-20) mm/hr Sodium 140 (137-145) mmol/L Potassium 3.8 (3.5-5.1) mmol/L Chloride 105 (98-107) mmol/L Carbon Dioxide 28 (22-30) mmol/L Anion Gap 7 mmol/L BUN 11 (7-17) mg/dL Creatinine 0.72 (0.52-1.04) mg/dL Est GFR (CKD-EPI)AfAm >90 (>60 ml/min/1.73 sqM) Est GFR (CKD-EPI)NonAf >90 (>60 ml/min/1.73 sqM) Glucose 89 (74-99) mg/dL Calcium 9.6 (8.4-10.2) mg/dL Total Bilirubin 0.2 (0.2-1.3) mg/dL AST 21 (14-36) U/L ALT 16 (4-34) U/L Alkaline Phosphatase 126 (38-126) U/L Creatine Kinase 41 (30-135) U/L C-Reactive Protein 12.4 H (<10.0) mg/L Total Protein 7.3 (6.3-8.2) g/dL Albumin 4.3 (3.5-5.0) g/dL Disposition Clinical Impression: Post-operative pain, Fracture of radius, distal, left, closed, Left wrist pain Disposition: HOME SELF-CARE Condition: Good Instructions (If sedation given, give patient instructions): ORIF of a Wrist Fracture (DC) Additional Instructions: Please use medication as discussed. Please follow-up with Dr. Lockett and pain management physician. Please return to emergency room if the symptoms increase or worsen or for any other concerns. Prescriptions: Hydrocodone/Acetaminophen [[place] 7.5-325] 1 tab PO Q6HR PRN 3 Days #12 tab PRN Reason: Pain Is patient prescribed a controlled substance at d/c from ED?: No Referrals: Joyce Klein DO [Primary Care Provider] - 1-2 days Derrek Lockett DO [Medical Doctor] - 1-2 days Time of Disposition: 18:45
[2019-09-09 18:57] LABS: Erythrocyte Sedimentation Rate 17 mm/hr (0-20)
[2019-09-09 19:18] VITALS: BP 99/60; PULSE 77; TEMP 98.2
== END 2019-09-09 19:18 | disposition home or self-care (01) ==
LOC: EC 17:04
DX: G89.18 Other acute postprocedural pain (principal); S52.502D Unspecified fracture of the lower end of left radius, subsequent encounter for closed fracture with routine healing; M25.532 Pain in left wrist; M79.89 Other specified soft tissue disorders; G89.29 Other chronic pain; M54.9 Dorsalgia, unspecified; F90.9 Attention-deficit hyperactivity disorder, unspecified type; F41.9 Anxiety disorder, unspecified; F41.0 Panic disorder [episodic paroxysmal anxiety]; K21.9 Gastro-esophageal reflux disease without esophagitis; I10 Essential (primary) hypertension; Z79.82 Long term (current) use of aspirin; Z79.899 Other long term (current) drug therapy; F17.200 Nicotine dependence, unspecified, uncomplicated; Z88.6 Allergy status to analgesic agent; Z91.013 Allergy to seafood; Z88.5 Allergy status to narcotic agent; Z86.14 Personal history of Methicillin resistant Staphylococcus aureus infection; Z98.890 Other specified postprocedural states
CPT/HCPCS: 36415; 80053; 85652; 82550; 85025; 86140; 87040; 73200; 99284; 96374; J1170

== ENCOUNTER → 2019-09-12 | Outpatient (CLI) | payer OTHER ==
[2019-09-12 14:37] VITALS: BP 145/83; PULSE 116; RESP 20
--- NOTE | 2019-09-12 15:00 | P.PAINPG ---
Subjective Progress Note Date: 09/12/19 Isabell is a 49-year-old female who presents today for follow-up. She presents the continued complaint of right-sided low back pain radiating down her right leg as well as left wrist pain. She had left wrist surgery in July after having shattered radius. She had surgery Dr. Feliciano. She continues to have pain over the dorsum of the hand which she feels a burning sensation as well as allodynia in the area. There is no skin changes noted. As for her low back she has severe tenderness, sharp shooting pain going down her right leg with a VAS of 8 out of 10. She's had this pain chronically and she reports she is postop surgery on her back because of recent personal issues she's been unable to have surgery. She is working with physical therapy for her left hand at this time. She is using pain medications as prescribed by her surgeon as well as by the pain clinic. I discussed with her she had received many prescriptions from a surgeon over the last month and that we will refill her pain medications for one month at this time. She should not be receiving any more pain medications from the surgeon moving forward. Objective - Vital Signs Vital signs: Vital Signs Temp Pulse 116 H 09/12/19 14:25 Resp 20 09/12/19 14:25 BP 145/83 09/12/19 14:25 Pulse Ox 100 09/12/19 14:25 Intake & Output 09/11/19 09/12/19 09/12/19 18:59 06:59 18:59 Weight 59.874 kg - Exam General: Awake and alert oriented 3 no distress Respiratory exam: No audible wheezing no accessory muscle usage Cardiovascular exam: regular rate, palpable bilateral pulses, no lower extremity edema Abdominal exam: No distention nontender to palpation Cervical spine: Normal alignment, Spurling's negative, facet loading negative, Reservationist strength is 5/5, thomas negative Left hand: Surgical scar is well healing over the wrist of the left hand. The dorsum of the hand positive for allodynia, sensitive to light touch. There is no skin discoloration. There is no muscle atrophy noted at this time. She has good range of motion in the left hand but still limited secondary to pain. Lumbar spine: Loss of lumbar lordosis, normal alignment, tender to palpation ove r bilateral paraspinal muscles, facet loading is positive bilaterally. Straight leg raise positive on the right at 40. Limited range of motion due to pain with flexion, extension and side bending. Sacroiliac joints: Nontender to palpation, KATLYN is negative, [place] negative Neuro exam: Normal sensation in bilateral upper extremities, deep tendon reflexes are 2+ bilateral upper extremities. Normal sensation in bilateral lower extremities. Deep tendon reflexes are 1+ in the right patellar region, 2+ in left patella Psych exam: Cooperative, appropriate mood Assessment and Plan Assessment: #1 lumbar radiculopathy #2 postsurgical pain in the left hand #3 opioid dependence Plan: I discussed the patient had chronic low back pain and nothing is really change at this time. As for the left wrist I concerned with her recent postsurgical at that and would like to avoid her developing any type of chronic regional pain syndrome. I will prescribe for her a biomed compounding cream to be placed over the dorsum of the left wrist every day for the next month. We'll see her back in one month to reevaluate. With discussed doing a stellate ganglion block in the future if he is not improved after the compound cream trial. We'll clear this with the surgeon first. I will refill her pain medications for 1 month. We discussed that she should not be receiving any further prescriptions from the surgeon at this time. PQRS Measure Charge Sheet Measure #130: Documentation of Current Meds in Medical Chart: Patient's medications documented in chart Measure #226: Tobacco Use: Screen & Cessation Intervention: Pt screened for tobacco use AND intervention given Measure #111: Pneumonia Vaccination: Pneumococcal vaccine administered or previously received Measure #47: Advance Care Plan: Advance care planning discussed & documented, plan or surrogate given Measure #412: Opioid Treatment Agreement: Documented signed opioid trtmnt agreemnt min once during opioid trtmnt Measure #408: Opioid Therapy Follow-up Evaluation: Patient had f/u eval minimum every 3 months during opioid therapy Measure #317: Preventitive Care & Scrn High Bld Press & F/U: Normal blood pressure, f/u not required Measure #128: Body Mass Index (BMI) Screening & Follow-up: BMI documented ABOVE normal parameters - f/u documented Measure #131: Pain Assessment & Follow-up: Pain positive & plan documented Measure #431: Unhealthy Alcohol Use Preventative Care & Scrn: Patient not identified as an unhealthy alcohol user PQRS Narrative: Smoking Status Current every day smoker Narcotic Agreement Date Signed 05/11/19 Blood Pressure 145/83 Pain Intensity [Left Lower Arm 10 ] Pain Intensity [Right Hip] 9 Scale Used Numeric (1 - 10) Hx Alcohol Use (MH) Yes: rare Home Medications: Ambulatory Orders Atenolol [Tenormin] 50 mg PO DAILY 07/29/18 Aspirin EC [Ecotrin Low Dose] 81 mg PO DAILY 04/03/19 Vitamin B Complex 1 cap PO DAILY 04/03/19 Lisdexamfetamine Dimesylate [Vyvanse] 50 mg PO QAM 04/27/19 Omeprazole [PriLOSEC] 40 mg PO DAILY 05/08/19 Gabapentin [Neurontin] 400 mg PO TID #90 cap 05/11/19 Escitalopram [Lexapro] 10 mg PO DAILY 08/16/19 clonazePAM [KlonoPIN] 0.25 mg PO TID 08/16/19 oxyCODONE-APAP 5-325MG [Percocet 5-325 mg] 1 tab PO Q4HR PRN #50 tab 08/18/19 Cephalexin [Keflex] 500 mg PO Q6HR 7 Days #28 cap 09/08/19 Hydrocodone/Acetaminophen [[place] 7.5-325] 1 tab PO Q6HR PRN 3 Days #12 tab 09/09/19 Controlled Substance Measures - Controlled Substance Measures Is patient prescribed a controlled substance at discharge?: Yes When asked, does pt state using other controlled substances?: No If prescribed controlled substance>3 days was MAPS reviewed?: Yes If Rx opioid, was Start Talking consent form obtained?: Yes If opioid is for acute pain is fill amount 7 days or less?: No Was information provided regarding opioid addiction?: Yes
== END | disposition home or self-care (01) ==
LOC: PNWHC3 13:33
PROVIDERS: ATTEND Anesthesiology
DX: M54.16 Radiculopathy, lumbar region (principal); G89.28 Other chronic postprocedural pain; F11.20 Opioid dependence, uncomplicated; F17.200 Nicotine dependence, unspecified, uncomplicated; Z79.82 Long term (current) use of aspirin; Z79.899 Other long term (current) drug therapy
CPT/HCPCS: 99211

== ENCOUNTER 2019-10-05 17:31 | Emergency (ER) | payer OTHER ==
[2019-10-05 18:06] VITALS: BP 134/87; PULSE 83; RESP 16; TEMP 98.3
--- NOTE | 2019-10-06 05:34 | ED ---
General Adult HPI - General Chief complaint: Recheck/Abnormal Lab/Rx Stated complaint: Infection Time Seen by Provider: 10/05/19 20:02 Source: patient Mode of arrival: ambulatory Limitations: no limitations - History of Present Illness Initial comments: I did not see nor evaluate this patient. She left without being seen. - Related Data Home Medications Medication Instructions Recorded Confirmed Atenolol [Tenormin] 50 mg PO DAILY 07/29/18 09/12/19 Aspirin EC [Ecotrin Low Dose] 81 mg PO DAILY 04/03/19 09/12/19 Vitamin B Complex 1 cap PO DAILY 04/03/19 09/12/19 Lisdexamfetamine Dimesylate 50 mg PO QAM 04/27/19 09/12/19 [Vyvanse] Omeprazole [PriLOSEC] 40 mg PO DAILY 05/08/19 09/12/19 Escitalopram [Lexapro] 10 mg PO DAILY 08/16/19 09/12/19 clonazePAM [KlonoPIN] 0.25 mg PO TID 08/16/19 09/12/19 Previous Rx's Medication Instructions Recorded Gabapentin [Neurontin] 400 mg PO TID #90 cap 05/11/19 oxyCODONE-APAP 5-325MG [Percocet 1 tab PO Q4HR PRN #50 tab 08/18/19 5-325 mg] Cephalexin [Keflex] 500 mg PO Q6HR 7 Days #28 cap 09/08/19 Hydrocodone/Acetaminophen [[place] 1 tab PO Q6HR PRN 3 Days #12 tab 09/09/19 7.5-325] Allergies Allergy/AdvReac Type Severity Reaction Status Date / Time ketorolac [From Toradol] Allergy Anaphylaxis Verified 10/05/19 18:02 shellfish derived Allergy Anaphylaxis Verified 10/05/19 18:02 tramadol [From Ultram] Allergy Anaphylaxis Verified 10/05/19 18:02 ibuprofen AdvReac HIVES Verified 10/05/19 18:02 morphine AdvReac NAUSEA AND Verified 10/05/19 18:02 VOMITING Review of Systems ROS Statement: Those systems with pertinent positive or pertinent negative responses have been documented in the HPI. ROS Other: All systems not noted in ROS Statement are negative. Past Medical History Past Medical History: COPD, GERD/Reflux, Hypertension, Pneumonia Additional Past Medical History / Comment(s): chronic back pain, lumbar degenerative disc disease, insomnia, hx shingles, hiatal hernia, kidney stones. 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, migraines,; NECK PAIN , LEFT WRIST FRACTURE Last Myocardial Infarction Date:: 08/27/2016 History of Any Multi-Drug Resistant Organisms: MRSA Date of last positivie culture/infection: 09/22/09 MDRO Source:: neck Past Surgical History: Appendectomy, Back Surgery, Section, Cholecystectomy, Orthopedic Surgery Additional Past Surgical History / Comment(s): Cervical spine fusion with insertion of a metal plate, EGD, colonoscopy, radiofrequency ablation, Past Anesthesia/Blood Transfusion Reactions: No Reported Reaction Additional Past Anesthesia/Blood Transfusion Reaction / Comment(s): CLAUSTROPHOBIA Past Psychological History: ADD/ADHD, Anxiety, Panic Disorder Smoking Status: Current every day smoker Past Alcohol Use History: None Reported Past Drug Use History: None Reported - Past Family History Father Family Medical History: Cancer Additional Family Medical History / Comment(s): Father at age 48 from lung cancer. Mother Family Medical History: Congestive Heart Failure (CHF), CVA/TIA Additional Family Medical History / Comment(s): Mother is alive at age 68. She has suffered from a CVA and has chronic back problems. Patient has 2 brothers and 4 sisters with no major medical problems. General Exam Limitations: no limitations Course Vital Signs 10/05/19 18:03 Temperature 98.3 F Pulse Rate 83 Respiratory 16 Rate Blood Pressure 134/87 O2 Sat by Pulse 100 Oximetry Disposition Clinical Impression: Patient left without being seen Disposition: Left W/O Being Seen by Phys Condition: Undetermined Referrals: Joyce Klein DO [Primary Care Provider] - 1-2 days
== END 2019-10-05 20:39 | disposition left against medical advice (07) ==
LOC: EC 17:31
DX: L08.9 Local infection of the skin and subcutaneous tissue, unspecified (principal); Z53.21 Procedure and treatment not carried out due to patient leaving prior to being seen by health care provider; I10 Essential (primary) hypertension; K21.9 Gastro-esophageal reflux disease without esophagitis; I25.2 Old myocardial infarction; F90.9 Attention-deficit hyperactivity disorder, unspecified type; F41.0 Panic disorder [episodic paroxysmal anxiety]; F17.200 Nicotine dependence, unspecified, uncomplicated; Z79.82 Long term (current) use of aspirin; Z79.899 Other long term (current) drug therapy; Z88.5 Allergy status to narcotic agent; Z88.6 Allergy status to analgesic agent; Z91.013 Allergy to seafood; Z98.1 Arthrodesis status
CPT/HCPCS: 99499

== ENCOUNTER → 2019-10-10 | Outpatient (CLI) | payer OTHER ==
[2019-10-10 10:19] VITALS: BP 148/85; PULSE 102; RESP 18
--- NOTE | 2019-10-10 10:39 | P.PN ---
Subjective Progress Note Date: 10/10/19 This is a 49-year-old lady with history of chronic lower back pain with radiation to the right leg down to the right foot with numbness and tingling in the right foot. The patient also has pain in her left arm status post ORIF on the radius. She also has allodynia to touch and the back of her left hand with numbness also in this area. Patient denies new-onset weakness, bowel/bladder incontinence, or any other signs or symptoms of cauda equina syndrome. There are no signs of acute intoxication, and no indications of medication diversion or overuse. In addition to above, 13-point review of systems is also negative for chest pain, shortness of breath, changes in vision, changes in hearing, new onset weakness, abdominal pain, diarrhea, extreme fatigue, malaise, fever, skin changes, homicidal or suicidal ideation, or bowel or bladder incontinence. 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 Explanation: Opioid and psychological risk scores were reviewed. Diagnoses, prognoses, and multiple treatment options including but not limited to physical therapy, interventional therapies, adjuvant medical therapies, narcotic medication therapies, and surgery were discussed with the patient and all questions were answered to the patient's satisfaction. 2. Opioid agreement: Signed with the patient and the patient is warned not to use opioids while driving or before driving and not to combine opioids with benzodiazepines or alcohol. 3. Counseling: The patient was counseled extensively on SMOKING CESSATION, BODY MASS INDEX, EXERCISE. Specifically, the patient was instructed regarding the importance of smoking cessation, obesity, and exercise in the context of both chronic pain and overall health. 4. Procedures: We will schedule for lumbar epidural steroid injection at the L4 5 level on the right paramedian approach. The patient may benefit also from getting stellate ganglion block on the left side for possible CRPS. The patient will check with her orthopedic surgeon who is going to be seen next week. 5. Consultations: None 6. Investigations: None 7. Medications: Continue [place] and Neurontin 8. Disposition: Return to the above-mentioned procedure as soon as possible 9. Maps were reviewed and were appropriate. PQRS measures: 1-Patient's medications are documented in the chart. 2-Tobacco use is positive, counseling given 3-Patient has not had a pneumococcal vaccine. 4-Advanced care planning discussed, patient unable to give 5-Opioid contract signed with the patient. 6-Pain positive, follow-up visit or procedure scheduled 7-Patient's blood pressure measured and documented above normal limits. The patient will follow up with his primary care physician. 8-Patient's weight was measured, and body mass index ABOVE the normal limits, and counseling was done. Patient instructed to follow up with PCP. 9-Patient WAS NOT identified as an unhealthy alcohol user. Controlled Substance Measures Is patient prescribed a controlled substance at discharge?: Yes When asked, does pt state using other controlled substances?: No If prescribed controlled substance>3 days was MAPS reviewed?: Yes If Rx opioid, was Start Talking consent form obtained?: Yes If opioid is for acute pain is fill amount 7 days or less?: No Was information provided regarding opioid addiction?: Yes Objective - Vital Signs Vital signs: Vital Signs Temp Pulse 102 H 10/10/19 10:10 Resp 18 10/10/19 10:10 BP 148/85 10/10/19 10:10 Pulse Ox 99 10/10/19 10:10 Intake & Output 10/09/19 10/10/19 10/10/19 18:59 06:59 18:59 Weight 60.328 kg
== END | disposition home or self-care (01) ==
LOC: PNWHC3 09:58
PROVIDERS: ATTEND Anesthesiology
DX: M47.26 Other spondylosis with radiculopathy, lumbar region (principal); Z98.890 Other specified postprocedural states; Z79.891 Long term (current) use of opiate analgesic; Z79.899 Other long term (current) drug therapy
CPT/HCPCS: 99211

== ENCOUNTER 2019-10-23 19:02 | Inpatient (IN) | payer OTHER ==
[2019-10-23] MEDS ORDERED: LORazepam 2 MG/ML INJ IV STA ×2 (19:14→20:15)
[2019-10-23 19:24] LABS: Basophils # (A) 0.1 k/uL (0-0.2); Basophils % (A) 0 %; Eosinophils # (A) 0.4 k/uL (0-0.7); Eosinophils % (A) 3 %; HCT 44.6 % (34.0-46.0); HGB 14.6 gm/dL (11.4-16.0); Lymphocytes # (A) 3.6 k/uL (1.0-4.8); Lymphocytes % (A) 25 %; MCH 31.6 pg (25.0-35.0); MCHC 32.9 g/dL (31.0-37.0); Mean Platelet Volume 6.9; Monocytes # (A) 1.3 k/uL (0-1.0); Monocytes % (A) 9 %; Neutrophils # (A) 8.8 k/uL (1.3-7.7); Neutrophils % (A) 61 %; Platelet Count 427 k/uL (150-450); RBC 4.64 m/uL (3.80-5.40); RDW 13.2 % (11.5-15.5); WBC 14.5 k/uL (3.8-10.6)
[2019-10-23 19:36] LABS: ALT 14 U/L (4-34); AST 20 U/L (14-36); African American GFR (CKD) >90 (>60 ml/min/1.73 sqM); Albumin 4.6 g/dL (3.5-5.0); Alkaline Phosphatase 138 U/L (38-126); Anion Gap 9 mmol/L; Blood Urea Nitrogen 10 mg/dL (7-17); C Reactive Protein 7.3 mg/L (<10.0); Carbon Dioxide 24 mmol/L (22-30); Chloride 106 mmol/L (98-107); Glucose 100 mg/dL (74-99); Non-African American GFR(CKD) >90 (>60 ml/min/1.73 sqM); Potassium 4.5 mmol/L (3.5-5.1); Sodium 139 mmol/L (137-145); Total Bilirubin 0.3 mg/dL (0.2-1.3); Total Protein 7.8 g/dL (6.3-8.2)
--- NOTE | 2019-10-23 19:43 | XR ---
EXAMINATION TYPE: XR chest 1V portable DATE OF EXAM: 10/23/2019 COMPARISON: 04/30/2019 INDICATION: Cough TECHNIQUE: Single frontal view of the chest is obtained. FINDINGS: The heart size is normal. The pulmonary vasculature is normal. Some mild infiltrate may be in the right lower lobe. Previous perihilar infiltrates have resolved. IMPRESSION: 1. There may be developing right lower lobe infiltrate. Follow-up can be performed as clinically rylan cated.
[2019-10-23] MEDS ORDERED: IPRATROPIUM 0.5 MG/2.5 ML NEBU INHALATION STA (19:53)
[2019-10-23] MEDS ORDERED: DEXAMETHASONE SOD PHOSPHATE 10 MG/ML 1 ML VIAL IV STA (19:53)
[2019-10-23] MEDS ORDERED: ALBUTEROL NEBULIZED 2.5 MG/3 ML INHALATION STA (19:53)
--- NOTE | 2019-10-23 19:57 | ED ---
General Adult HPI - General Chief complaint: Shortness of Breath Stated complaint: Cough Time Seen by Provider: 10/23/19 19:04 Source: EMS Mode of arrival: EMS Limitations: no limitations - History of Present Illness Initial comments: Dictation was produced using Ver[employer] dictation software. please excuse any grammatical, word or spelling errors. This patient was cared for during a federal and state declared state of emergency secondary to Covid 19 Chief Complaint: 49-year-old female past medical history of COPD, anxiety, hypertension pneumonia presents with cough, sore throat and runny nose. History of Present Illness: 49 y old female presents today via EMS. Patient was at home. Over the last Several days she's been feeling myalgias, fevers, diaphoresis and coughing. Patient states she has history of pneumonia. She was recently down in [facility] even amidst to current pandemic. She was on [facility] because her grandson follows up at [facility]. Patient states she has history of COPD however has not had a COPD exacerbation and several months. Denies any pain complaints. She does complain of some mild sore throat, runny nose. She reports that her sputum is productive of clear sputum. The ROS documented in this emergency department record has been reviewed and confirmed by me. Those systems with pertinent positive or negative responses have been documented in the HPI. All other systems are other negative and/or noncontributory. PHYSICAL EXAM: General Impression: Alert and oriented x3, diaphoretic, uncontrollably coughing HEENT: Normocephalic atraumatic, extra-ocular movements intact, pupils equal and reactive to light bilaterally, mucous membranes moist. Cardiovascular: Heart regular rate and rhythm Chest: Tachypneic, mild retractions, productive coughing Abdomen: Bowel sounds present, abdomen soft, non-tender, non-distended, no organomegaly Musculoskeletal: Pulses present and equal in all extremities, no peripheral edema Motor: no focal deficits noted Neurological: CN II-XII grossly intact, no focal motor or sensory deficits noted Skin: Intact with no visualized rashes Psych: Anxious ED course: 49-year-old female presents with clinical presentation consistent with COPD exacerbation. As upon arrival shows heart rate of 117, rest of vital signs within acceptable limits. During her current pandemic patient frequents hotspot areas done in [facility]. Patient be tested for Covid. Given patient's history of COPD she is given breathing treatment and steroids. Laboratory evaluation obtained leukocytosis of 14.5, metabolic panel is unremarkable. Cardiac enzymes negative. Chest x-ray shows developing right lower lobe infiltrate. Patient given breathing treatment still coughing profusely. She is diaphoretic. Patient however is not hypoxic however she is tachycardic. Patient appears very anxious. There is concern of sympathomimetic toxidrome secondary to stimulant illicit drugs. Patient's given Ativan. The less, patient be admitted for COPD exacerbation. She is given azithromycin. Considering today's pandemic patient will be tested for Covid 19. [place] virus precautions ordered. - Related Data Home Medications Medication Instructions Recorded Confirmed Atenolol [Tenormin] 50 mg PO DAILY 07/29/18 10/10/19 Aspirin EC [Ecotrin Low Dose] 81 mg PO DAILY 04/03/19 10/10/19 Vitamin B Complex 1 cap PO DAILY 04/03/19 10/10/19 Lisdexamfetamine Dimesylate 50 mg PO QAM 04/27/19 10/10/19 [Vyvanse] Omeprazole [PriLOSEC] 40 mg PO DAILY 05/08/19 10/10/19 Escitalopram [Lexapro] 10 mg PO DAILY 08/16/19 10/10/19 clonazePAM [KlonoPIN] 0.25 mg PO TID 08/16/19 10/10/19 Previous Rx's Medication Instructions Recorded Gabapentin [Neurontin] 400 mg PO TID #90 cap 05/11/19 Cephalexin [Keflex] 500 mg PO Q6HR 7 Days #28 cap 09/08/19 Hydrocodone/Acetaminophen [[place] 1 tab PO Q6HR PRN 3 Days #12 tab 09/09/19 7.5-325] Allergies Allergy/AdvReac Type Severity Reaction Status Date / Time ketorolac [From Toradol] Allergy Anaphylaxis Verified 10/10/19 10:08 shellfish derived Allergy Anaphylaxis Verified 10/10/19 10:08 tramadol [From Ultram] Allergy Anaphylaxis Verified 10/10/19 10:08 ibuprofen AdvReac HIVES Verified 10/10/19 10:08 morphine AdvReac NAUSEA AND Verified 10/10/19 10:08 VOMITING Review of Systems ROS Statement: Those systems with pertinent positive or pertinent negative responses have been documented in the HPI. ROS Other: All systems not noted in ROS Statement are negative. Past Medical History Past Medical History: COPD, GERD/Reflux, Hypertension, Pneumonia Additional Past Medical History / Comment(s): chronic back pain, lumbar degenerative disc disease, insomnia, hx shingles, hiatal hernia, kidney stones. 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, migraines,; NECK PAIN , LEFT WRIST FRACTURE Last Myocardial Infarction Date:: 08/27/2016 History of Any Multi-Drug Resistant Organisms: MRSA Date of last positivie culture/infection: 09/22/09 MDRO Source:: neck Past Surgical History: Appendectomy, Back Surgery, Section, Cholecystectomy, Orthopedic Surgery Additional Past Surgical History / Comment(s): Cervical spine fusion with insertion of a metal plate, EGD, colonoscopy, radiofrequency ablation, Past Anesthesia/Blood Transfusion Reactions: No Reported Reaction Additional Past Anesthesia/Blood Transfusion Reaction / Comment(s): CLAUSTROPHOBIA Past Psychological History: ADD/ADHD, Anxiety, Panic Disorder Smoking Status: Current every day smoker Past Alcohol Use History: None Reported Past Drug Use History: None Reported - Past Family History Father Family Medical History: Cancer Additional Family Medical History / Comment(s): Father at age 48 from lung cancer. Mother Family Medical History: Congestive Heart Failure (CHF), CVA/TIA Additional Family Medical History / Comment(s): Mother is alive at age 68. She has suffered from a CVA and has chronic back problems. Patient has 2 brothers and 4 sisters with no major medical problems. General Exam Limitations: no limitations Course Vital Signs 10/23/19 19:08 Temperature 98.8 F Pulse Rate 117 H Respiratory 24 Rate Blood Pressure 140/104 O2 Sat by Pulse 99 Oximetry Medical Decision Making - Lab Data Result diagrams: 10/23/19 19:15 10/23/19 19:15 Lab Results 10/23/19 10/23/19 10/23/19 Range/Units 19:15 19:15 19:15 WBC 14.5 H (3.8-10.6) k/uL RBC 4.64 (3.80-5.40) m/uL Hgb 14.6 (11.4-16.0) gm/dL Hct 44.6 (34.0-46.0) % MCV 96.0 (80.0-100.0) fL MCH 31.6 (25.0-35.0) pg MCHC 32.9 (31.0-37.0) g/dL RDW 13.2 (11.5-15.5) % Plt Count 427 (150-450) k/uL Neutrophils % 61 % Lymphocytes % 25 % Monocytes % 9 % Eosinophils % 3 % Basophils % 0 % Neutrophils # 8.8 H (1.3-7.7) k/uL Lymphocytes # 3.6 (1.0-4.8) k/uL Monocytes # 1.3 H (0-1.0) k/uL Eosinophils # 0.4 (0-0.7) k/uL Basophils # 0.1 (0-0.2) k/uL Sodium 139 (137-145) mmol/L Potassium 4.5 (3.5-5.1) mmol/L Chloride 106 (98-107) mmol/L Carbon Dioxide 24 (22-30) mmol/L Anion Gap 9 mmol/L BUN 10 (7-17) mg/dL Creatinine 0.73 (0.52-1.04) mg/dL Est GFR (CKD-EPI)AfAm >90 (>60 ml/min/1.73 sqM) Est GFR (CKD-EPI)NonAf >90 (>60 ml/min/1.73 sqM) Glucose 100 H (74-99) mg/dL Calcium 10.0 (8.4-10.2) mg/dL Total Bilirubin 0.3 (0.2-1.3) mg/dL AST 20 (14-36) U/L ALT 14 (4-34) U/L Alkaline Phosphatase 138 H (38-126) U/L Troponin I <0.012 (0.000-0.034) ng/mL C-Reactive Protein 7.3 (<10.0) mg/L NT-Pro-B Natriuret Pep pg/mL Total Protein 7.8 (6.3-8.2) g/dL Albumin 4.6 (3.5-5.0) g/dL 10/23/19 Range/Units 19:15 WBC (3.8-10.6) k/uL RBC (3.80-5.40) m/uL Hgb (11.4-16.0) gm/dL Hct (34.0-46.0) % MCV (80.0-100.0) fL MCH (25.0-35.0) pg MCHC (31.0-37.0) g/dL RDW (11.5-15.5) % Plt Count (150-450) k/uL Neutrophils % % Lymphocytes % % Monocytes % % Eosinophils % % Basophils % % Neutrophils # (1.3-7.7) k/uL Lymphocytes # (1.0-4.8) k/uL Monocytes # (0-1.0) k/uL Eosinophils # (0-0.7) k/uL Basophils # (0-0.2) k/uL Sodium (137-145) mmol/L Potassium (3.5-5.1) mmol/L Chloride (98-107) mmol/L Carbon Dioxide (22-30) mmol/L Anion Gap mmol/L BUN (7-17) mg/dL Creatinine (0.52-1.04) mg/dL Est GFR (CKD-EPI)AfAm (>60 ml/min/1.73 sqM) Est GFR (CKD-EPI)NonAf (>60 ml/min/1.73 sqM) Glucose (74-99) mg/dL Calcium (8.4-10.2) mg/dL Total Bilirubin (0.2-1.3) mg/dL AST (14-36) U/L ALT (4-34) U/L Alkaline Phosphatase (38-126) U/L Troponin I (0.000-0.034) ng/mL C-Reactive Protein (<10.0) mg/L NT-Pro-B Natriuret Pep 38 pg/mL Total Protein (6.3-8.2) g/dL Albumin (3.5-5.0) g/dL Disposition Clinical Impression: COPD exacerbation Disposition: ADMITTED IP TO THIS HOSP Condition: Fair Referrals: Estelle Butterfield DO [Primary Care Provider] - 1-2 days Decision Time: 20:18
[2019-10-23] MEDS ORDERED: MORPHINE SULFATE 4 MG/ML SYRINGE IV STA (20:06)
[2019-10-23] MEDS ORDERED: AZITHROMYCIN 500 MG TAB PO STA (20:08)
[2019-10-23] MEDS ORDERED: IPRATROPIUM-ALBUTEROL 3 ML NEB INHALATION PRN (20:14)
[2019-10-23] MEDS ORDERED: ALPRAZolam 1 MG TAB PO PRN (20:18)
[2019-10-23] MEDS: SODIUM CHLORIDE 0.9% 1,000 ML IV SCH (20:22)
[2019-10-23] MEDS ORDERED: guaiFENesin SYRUP 100MG/5ML 200 MG/10 ML CUP PO PRN (22:20)
[2019-10-23] MEDS ORDERED: MENTHOL (NICE) LOZENGE MUCOUS MEM PRN (22:20)
[2019-10-23] MEDS: LORazepam 2 MG/ML INJ IV PRN (22:26)
[2019-10-23] MEDS ORDERED: guaiFENesin-DM 100-10MG/5ML 10 ML CUP PO PRN (22:53)
[2019-10-23] MEDS ORDERED: LORazepam 2 MG/ML INJ IV PRN (23:51)
[2019-10-23 23:52] LABS: Glucose,Whole Blood 130 mg/dL (75-99)
[2019-10-24] MEDS ORDERED: HALOPERIDOL LACTATE 5 MG/ML 1 ML VIAL IM ONE (00:38)
[2019-10-24] MEDS ORDERED: DIAZEPAM 5 MG/ML 2 ML INJ IM ONE (00:38)
[2019-10-24] MEDS ORDERED: HALOPERIDOL LACTATE 5 MG/ML 1 ML VIAL ONE (00:40)
[2019-10-24] MEDS ORDERED: NALOXONE 0.4 MG/ML 1 ML VIAL IV PRN (01:51)
[2019-10-24 02:11] LABS: Appearance,Urine Clear (Clear); Bilirubin,Urine Negative (Negative); Blood,Urine Moderate (Negative); Color,Urine Yellow; Glucose,Urine (UA) Negative (Negative); Hyaline Casts,Urine 5 /lpf (0-2); Ketones,Urine Negative (Negative); Leukocyte Esterase,Urine Trace (Negative); Mucus,Urine Many /hpf; Nitrite,Urine Negative (Negative); Protein,Urine 1+ (Negative); RBC,Urine 14 /hpf (0-5); Squamous Epithelial Cell,Urine 1 /hpf (0-4); WBC,Urine 2 /hpf (0-5)
[2019-10-24 02:21] LABS: Amphetamine Screen,Urine Detected (NotDetected); Barbiturate Screen,Urine Not Detected (NotDetected); Benzodiazepines Screen,Urine Detected (NotDetected); Cocaine Screen,Urine Not Detected (NotDetected); Methadone Screen, Urine Not Detected (NotDetected); Opiate Screen,Urine Detected (NotDetected); Oxycodone Screen, Urine Not Detected (NotDetected); Phencyclidine Screen,Urine Detected (NotDetected); Tricyclic Antidepressant,Urine Not Detected (NotDetected); Urn Cannabinoid Scrn Not Detected (NotDetected)
[2019-10-24] MEDS: LORazepam 2 MG/ML INJ IV PRN (03:18)
[2019-10-24] MEDS: SODIUM CHLORIDE 0.9% 1,000 ML IV SCH ×3 (03:19→17:39)
[2019-10-24] MEDS ORDERED: DEXMEDETOMIDINE/0.9% NACL(PMX) 400 MCG in EMPTY BAG 1 BAG IV SCH ×2 (04:00)
[2019-10-24 04:02] LABS: Basophils % (A) 0 %; Eosinophils # (A) 0.1 k/uL (0-0.7); Eosinophils % (A) 0 %; HCT 37.1 % (34.0-46.0); HGB 12.1 gm/dL (11.4-16.0); Lymphocytes # (A) 0.7 k/uL (1.0-4.8); Lymphocytes % (A) 6 %; MCH 31.8 pg (25.0-35.0); MCHC 32.6 g/dL (31.0-37.0); MCV 97.5 fL (80.0-100.0); Monocytes # (A) 0.3 k/uL (0-1.0); Monocytes % (A) 2 %; Neutrophils # (A) 12.2 k/uL (1.3-7.7); Neutrophils % (A) 92 %; Platelet Count 300 k/uL (150-450); RBC 3.81 m/uL (3.80-5.40); RDW 13.3 % (11.5-15.5); WBC 13.3 k/uL (3.8-10.6)
[2019-10-24 04:08] LABS: African American GFR (CKD) >90 (>60 ml/min/1.73 sqM); Anion Gap 5 mmol/L; Blood Urea Nitrogen 16 mg/dL (7-17); Calcium 8.9 mg/dL (8.4-10.2); Carbon Dioxide 19 mmol/L (22-30); Chloride 116 mmol/L (98-107); Glucose 146 mg/dL (74-99); Non-African American GFR(CKD) >90 (>60 ml/min/1.73 sqM); Potassium 4.5 mmol/L (3.5-5.1); Sodium 140 mmol/L (137-145)
[2019-10-24 04:09] LABS: Acetaminophen <10.0 ug/mL; Salicylate <1.0 mg/dL
--- NOTE | 2019-10-24 08:03 | XR ---
EXAMINATION TYPE: XR chest 1V DATE OF EXAM: 10/24/2019 COMPARISON: 10/23/2019 INDICATION: Covid19 TECHNIQUE: Single frontal view of the chest is obtained. FINDINGS: The heart size is upper limits of normal. The pulmonary vasculature is normal. There is very mild increased lung markings diffusely. Suspicious patchy infiltrates are not identifie d. IMPRESSION: 1. Very mild increased lung markings may be present which can be associated with infection. Continued monitoring is recommended.
[2019-10-24] MEDS ORDERED: NON FORMULARY DRUG (Dextroamphetamine/Amphetamine [Adderall] 30 MG) PO SCH (09:00)
[2019-10-24] MEDS ORDERED: clonazePAM 0.5 MG TAB PO SCH (09:00)
[2019-10-24] MEDS ORDERED: HALOPERIDOL LACTATE 5 MG/ML 1 ML VIAL IVP PRN (09:40)
[2019-10-24] MEDS: clonazePAM 0.5 MG TAB PO PRN ×2 (10:07→20:13)
[2019-10-24] MEDS: HYDROcodone/APAP 7.5-325MG 1 EACH TAB PO PRN ×2 (10:07→17:38)
[2019-10-24] MEDS: GABAPENTIN 400 MG CAP PO SCH ×3 (10:07→20:13)
[2019-10-24] MEDS: ESCITALOPRAM 10 MG TAB PO SCH (10:08)
[2019-10-24] MEDS: AZITHROMYCIN 500 MG TAB PO SCH (10:08)
--- NOTE | 2019-10-24 11:50 | P.HPIM ---
History of Present Illness Note: Because of COVID 19 isolation, some of the history and physical exam findings or indirect and obtained from nursing staff, and other physician examinations to avoid unnecessary contact with the patient. 49-year-old female came in with comments of fevers myalgias diaphoresis and coughing, patient had fever of 99.9 here. Chest x-ray showed mild interstitial markings and normal BNP. Patient is admitted for radical with 19 testing. Overnight patient became more agitated hypotensive because of which patient the and upon ICU. Patient does have leukocytosis. Influenza is negative patient was having sore throat for for 4 days the patient does have COPD but only minimal wheezing on exam. Patient has visited [place] recently where the there are quite a few of Covid 19 cases. Patient does have clear sputum production. Review of Systems REVIEW OF SYSTEMS: CONSTITUTIONAL: No fever, no malaise, no fatigue. HEENT: No recent visual problems or hearing problems. Denied any sore throat. CARDIOVASCULAR: No chest pain, orthopnea, PND, no palpitations, no syncope. PULMONARY as mentioned in HPI. GASTROINTESTINAL: No diarrhea, no nausea, no vomiting, no abdominal pain. NEUROLOGICAL: No headaches, no weakness, no numbness. HEMATOLOGICAL: Denies any bleeding or petechiae. GENITOURINARY: Denies any burning micturition, frequency, or urgency. MUSCULOSKELETAL/RHEUMATOLOGICAL: Denies any joint pain, swelling, or any muscle pain. ENDOCRINE: Denies any polyuria or polydipsia. The rest of the 14-point review of systems is negative. Past Medical History Past Medical History: COPD, GERD/Reflux, Hypertension, Pneumonia Additional Past Medical History / Comment(s): chronic back pain, lumbar degenerative disc disease, insomnia, hx shingles, hiatal hernia, kidney stones. 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, migraines,; NECK PAIN , LEFT WRIST FRACTURE Last Myocardial Infarction Date:: 08/27/2016 History of Any Multi-Drug Resistant Organisms: MRSA Date of last positivie culture/infection: 09/22/09 MDRO Source:: neck Past Surgical History: Appendectomy, Back Surgery, Section, Cholecy stectomy, Orthopedic Surgery Additional Past Surgical History / Comment(s): Cervical spine fusion with insertion of a metal plate, EGD, colonoscopy, radiofrequency ablation, Past Anesthesia/Blood Transfusion Reactions: No Reported Reaction Additional Past Anesthesia/Blood Transfusion Reaction / Comment(s): CLAUSTROPHOBIA Past Psychological History: ADD/ADHD, Anxiety, Panic Disorder Additional Psychological History / Comment(s): PT LIVES WITH SIG OTHER OF 25 YEARS. Smoking Status: Current every day smoker Past Alcohol Use History: None Reported Additional Past Alcohol Use History / Comment(s): PATIENT STATES SHE STARTED SMOKING AT AGE 16 SMOKES 4 CIG PER DAY Past Drug Use History: None Reported - Past Family History Father Family Medical History: Cancer Additional Family Medical History / Comment(s): Father at age 48 from lung cancer. Mother Family Medical History: Congestive Heart Failure (CHF), CVA/TIA Additional Family Medical History / Comment(s): Mother is alive at age 68. She has suffered from a CVA and has chronic back problems. Patient has 2 brothers and 4 sisters with no major medical problems. Medications and Allergies Home Medications Medication Instructions Recorded Confirmed Type Gabapentin [Neurontin] 400 mg PO TID #90 cap 05/11/19 10/23/19 Rx Escitalopram [Lexapro] 10 mg PO DAILY 08/16/19 10/23/19 History Atenolol [Tenormin] 50 mg PO DAILY 10/23/19 10/23/19 History Cholecalciferol [Vitamin D3 (25 1,000 unit PO DAILY 10/23/19 10/23/19 History Mcg = 1000 Iu)] Dextroamphetamine/Amphetamine 30 mg PO DAILY 10/23/19 10/23/19 History [Adderall] Doxepin(Unknown Dose) 1 cap PO HS 10/23/19 10/23/19 History clonazePAM [KlonoPIN] 0.5 mg PO TID 10/23/19 10/23/19 History Allergies Allergy/AdvReac Type Severity Reaction Status Date / Time ketorolac [From Toradol] Allergy Anaphylaxis Verified 10/23/19 20:59 shellfish derived Allergy Anaphylaxis Verified 10/23/19 20:59 tramadol [From Ultram] Allergy Anaphylaxis Verified 10/23/19 20:59 ibuprofen AdvReac HIVES Verified 10/23/19 20:59 morphine AdvReac NAUSEA AND Verified 10/23/19 20:59 VOMITING Physical Exam Vitals: Vital Signs Temp Pulse Pulse Resp BP BP BP 10/24/19 11:30 59 L 18 122/109 10/24/19 11:00 61 15 104/69 10/24/19 10:30 64 17 98/72 10/24/19 10:00 64 18 110/77 10/24/19 09:30 65 14 106/61 10/24/19 09:00 77 16 102/67 10/24/19 08:30 65 18 97/69 10/24/19 08:00 67 80 16 100/67 10/24/19 07:30 70 15 101/69 10/24/19 07:00 73 17 101/57 10/24/19 06:30 72 15 96/61 10/24/19 06:00 77 20 95/58 10/24/19 05:30 82 19 108/71 10/24/19 05:15 73 16 105/67 10/24/19 05:00 74 16 101/65 10/24/19 04:45 73 21 101/73 10/24/19 04:30 20 96/65 10/24/19 04:15 79 16 95/64 10/24/19 04:00 97.6 F 78 80 16 92/65 10/24/19 03:45 77 15 102/66 10/24/19 03:30 81 17 107/74 10/24/19 03:15 89 18 102/64 10/24/19 03:00 82 15 85/69 10/24/19 02:45 87 16 83/58 10/24/19 02:30 88 15 87/57 10/24/19 02:15 90 17 74/57 10/24/19 02:12 74/57 10/24/19 02:00 91 18 78/56 10/24/19 01:45 104 H 80 24 82/52 78/56 10/24/19 01:30 88 80 19 90/59 78/56 10/24/19 01:17 99 F 88 20 90/59 10/24/19 01:15 92 19 117/87 10/24/19 01:00 117/87 10/24/19 00:45 58 H 117/87 10/24/19 00:30 32 H 117/87 10/24/19 00:15 138 H 40 H 117/87 10/24/19 00:00 120 H 49 H 117/87 10/23/19 23:48 130 H 124 H 47 H 117/87 10/23/19 22:56 115 H 24 10/23/19 22:54 99.0 F 115 H 24 106/67 10/23/19 21:47 99.0 F 94 24 10/23/19 20:39 99.0 F 41 L 18 123/91 10/23/19 20:31 93 18 10/23/19 20:25 99 20 100/70 10/23/19 20:22 90 18 10/23/19 19:08 98.8 F 117 H 24 140/104 Pulse Ox 10/24/19 11:30 98 10/24/19 11:00 98 10/24/19 10:30 98 10/24/19 10:00 98 10/24/19 09:30 99 10/24/19 09:00 97 10/24/19 08:30 10/24/19 08:00 98 10/24/19 07:30 97 10/24/19 07:00 97 10/24/19 06:30 98 10/24/19 06:00 98 10/24/19 05:30 98 10/24/19 05:15 98 10/24/19 05:00 98 10/24/19 04:45 97 10/24/19 04:30 96 10/24/19 04:15 97 10/24/19 04:00 96 10/24/19 03:45 97 10/24/19 03:30 96 10/24/19 03:15 97 10/24/19 03:00 97 10/24/19 02:45 96 10/24/19 02:30 96 10/24/19 02:15 96 10/24/19 02:12 10/24/19 02:00 96 10/24/19 01:45 96 10/24/19 01:30 96 10/24/19 01:17 98 10/24/19 01:15 97 10/24/19 01:00 95 10/24/19 00:45 10/24/19 00:30 94 L 10/24/19 00:15 10/24/19 00:00 96 10/23/19 23:48 98 10/23/19 22:56 10/23/19 22:54 10/23/19 21:47 10/23/19 20:39 96 10/23/19 20:31 10/23/19 20:25 100 10/23/19 20:22 10/23/19 19:08 99 Intake and Output 10/23/19 10/24/19 10/24/19 22:59 06:59 14:59 Intake Total 2242.546 441.25 Output Total 330 330 Balance 1912.546 111.25 Intake: IV 2225 300 0.9% Normal Saline 2225 300 Intake, IV Titration 17.546 21.25 Amount Dexmedetomidine/0.9% NaCl 17.546 21.25 (Pmx) 400 mcg In Empty Bag 1 bag @ Titrate IV . Q0M [facility] Rx#:[id number] Oral 120 Output: Urine 330 330 Other: Voiding Method Indwelling Catheter Indwelling Catheter # Voids 0 0 0 Weight 64.864 kg 68 kg PHYSICAL EXAMINATION: GENERAL: She and is a bit drowsy because of Haldol unable to assess orientation, not in any acute distress. Well developed, well nourished. HEENT: Pupils are round and equally reacting to light. EOMI. No scleral icterus. No conjunctival pallor. Normocephalic, atraumatic. No pharyngeal erythema. No thyromegaly. CARDIOVASCULAR: S1 and S2 present. No murmurs, rubs, or gallops. PULMONARY: Minimal expiratory wheezing ABDOMEN: Soft, nontender, nondistended, normoactive bowel sounds. No palpable organomegaly. MUSCULOSKELETAL: No joint swelling or deformity. EXTREMITIES: No cyanosis, clubbing, or pedal edema. NEUROLOGICAL: Gross neurological examination did not reveal any focal deficits. SKIN: No rashes. Results CBC & Chem 7: 10/24/19 03:43 10/24/19 03:43 Labs: Abnormal Lab Results - Last 24 Hours (Table) 10/23/19 10/23/19 10/23/19 Range/Units 19:15 19:15 23:50 WBC 14.5 H (3.8-10.6) k/uL Neutrophils # 8.8 H (1.3-7.7) k/uL Lymphocytes # (1.0-4.8) k/uL Monocytes # 1.3 H (0-1.0) k/uL Chloride (98-107) mmol/L Carbon Dioxide (22-30) mmol/L Glucose 100 H (74-99) mg/dL POC Glucose (mg/dL) 130 H (75-99) mg/dL Alkaline Phosphatase 138 H (38-126) U/L Urine Protein (Negative) Urine Blood (Negative) Ur Leukocyte Esterase (Negative) Urine RBC (0-5) /hpf Hyaline Casts (0-2) /lpf Urine Mucus (None) /hpf Urine Opiates Screen (NotDetected) Ur Phencyclidine Scrn (NotDetected) Ur Amphetamines Screen (NotDetected) U Benzodiazepines Scrn (NotDetected) 10/24/19 10/24/19 10/24/19 Range/Units 01:10 01:10 03:43 WBC 13.3 H (3.8-10.6) k/uL Neutrophils # 12.2 H (1.3-7.7) k/uL Lymphocytes # 0.7 L (1.0-4.8) k/uL Monocytes # (0-1.0) k/uL Chloride (98-107) mmol/L Carbon Dioxide (22-30) mmol/L Glucose (74-99) mg/dL POC Glucose (mg/dL) (75-99) mg/dL Alkaline Phosphatase (38-126) U/L Urine Protein 1+ H (Negative) Urine Blood Moderate H (Negative) Ur Leukocyte Esterase Trace H (Negative) Urine RBC 14 H (0-5) /hpf Hyaline Casts 5 H (0-2) /lpf Urine Mucus Many H (None) /hpf Urine Opiates Screen Detected H (NotDetected) Ur Phencyclidine Scrn Detected H (NotDetected) Ur Amphetamines Screen Detected H (NotDetected) U Benzodiazepines Scrn Detected H (NotDetected) 10/24/19 Range/Units 03:43 WBC (3.8-10.6) k/uL Neutrophils # (1.3-7.7) k/uL Lymphocytes # (1.0-4.8) k/uL Monocytes # (0-1.0) k/uL Chloride 116 H (98-107) mmol/L Carbon Dioxide 19 L (22-30) mmol/L Glucose 146 H (74-99) mg/dL POC Glucose (mg/dL) (75-99) mg/dL Alkaline Phosphatase (38-126) U/L Urine Protein (Negative) Urine Blood (Negative) Ur Leukocyte Esterase (Negative) Urine RBC (0-5) /hpf Hyaline Casts (0-2) /lpf Urine Mucus (None) /hpf Urine Opiates Screen (NotDetected) Ur Phencyclidine Scrn (NotDetected) Ur Amphetamines Screen (NotDetected) U Benzodiazepines Scrn (NotDetected) Thrombosis Risk Factor Assmnt - Choose All That Apply Each Factor Represents 1 point: Age 41-60 years Thrombosis Risk Factor Assessment Total Risk Factor Score: 1 Thrombosis Risk Factor Assessment Level: Low Risk Assessment and Plan Plan: -Systemic inflammatory response syndrome with URI like symptoms rule out the Des 19. Patient is bit hypotensive because of which I'm unable to discharge the patient quit 19 the PCR testing was ordered -Agitation secondary to her psychiatric issues patient received Haldol. Patient did better with clonazepam because of which will continue with clonazepam if needed [address] if Haldol doesn't help. -Hypertension probably secondary to hypovolemia patient was started on IV fluids and systemic inflammatory response have contributed to that -Leukocytosis due to assessment #1 -COPD without any significant except patient there may be mild the wheezing. -Gastric dysphagia reflux disease
--- NOTE | 2019-10-24 14:01 | P.CNPUL ---
History of Present Illness Consult date: 10/24/19 Reason for consult: dyspnea, cough Chief complaint: Altered mental status, cough, dyspnea, fever History of present illness: 49-year-old female patient with past medical history of COPD, anxiety, hypertension, previous episodes of pneumonia, who presented to the emergency department on 10/23/2019 with complaints of cough, runny nose, sore throat. Patient presented to the emergency department via EMS, she reported fevers, myalgias, diaphoresis,productive cough clear whitish sputum. Recent history of travel to [place], to see her grandson at the [facility]. Patient reportedly was taken some cough syrup, but she states she only took 2 doses of 2 teaspoons each time. Patient does have history of chronic pain syndrome, chronic back pain, follows with the pain clinic, has a history of opiate dependence, she is on Vyvanse for history of ADHD. She is a current smoker. ED evaluation included a chest x-ray which showed possibility of developing right lower lobe infiltrate. Lab work showed white blood cell count of 14.5, hemoglobin 14.6, d-dimer was normal at 0.46, electrolytes were within normal li mits, plasma lactic acid was 0.7, troponin was less than 0.0122, LDH was normal at 547, pro calcitonin was low at 0.05 making possibility of bacterial infection unlikely. ProBNP was normal at 38, CRP was within normal limits, urinalysis showed trace leuk trase, no obvious sign of infection, urine drug screen was positive for opiates, phencyclidine, amphetamines, and benzodiazepines, influenza screen was negative, COVID 19 is being ruled out, test pending. Patient did have a couple episodes of hypotension in the emergency department with a blood pressure 70s over 40s, she was tachycardic, IV hydration has been started, patient was started on Zithromax and Rocephin for possibility of develo ping right lower lobe pneumonia, patient was very anxious, and when she arrived in the intensive care unit she was acutely agitated, combative, and spitting at the nurses, she was given a dose of lorazepam, she was given some Haldol, however she continued to be quite agitated, requiring initiation of Precedex infusion. night time babysitter has been placed at the bedside, her agitation has improved, she is currently lethargic but arousable, and she is giving us some history about her present illness. Blood pressure has improved, patient has been afebrile. Review of Systems All systems: negative Constitutional: Denies chills, Denies fever Eyes: denies blurred vision, denies pain Ears, nose, mouth and throat: Denies headache, Denies sore throat Cardiovascular: Denies chest pain, Denies shortness of breath Respiratory: Reports cough with sputum, Reports dyspnea, Denies cough Gastrointestinal: Denies abdominal pain, Denies diarrhea, Denies nausea, Denies vomiting Genitourinary: Denies dysuria, Denies hematuria Musculoskeletal: Denies myalgias Integumentary: Denies pruritus, Denies rash Neurological: Reports change in mentation, Denies numbness, Denies weakness Psychiatric: Denies anxiety, Denies depression Endocrine: Denies fatigue, Denies weight change Past Medical History Past Medical History: COPD, GERD/Reflux, Hypertension, Pneumonia Additional Past Medical History / Comment(s): chronic back pain, lumbar degenerative disc disease, insomnia, hx shingles, hiatal hernia, kidney stones. 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, migraines,; NECK PAIN , LEFT WRIST FRACTURE Last Myocardial Infarction Date:: 08/27/2016 History of Any Multi-Drug Resistant Organisms: MRSA Date of last positivie culture/infection: 09/22/09 MDRO Source:: neck Past Surgical History: Appendectomy, Back Surgery, Section, Cholecystectomy, Orthopedic Surgery Additional Past Surgical History / Comment(s): Cervical spine fusion with insertion of a metal plate, EGD, colonoscopy, radiofrequency ablation, Past Anesthesia/Blood Transfusion Reactions: No Reported Reaction Additional Past Anesthesia/Blood Transfusion Reaction / Comment(s): CLAUSTROPHOBIA Past Psychological History: ADD/ADHD, Anxiety, Panic Disorder Additional Psychological History / Comment(s): PT LIVES WITH SIG OTHER OF 25 YEARS. Smoking Status: Current every day smoker Past Alcohol Use History: None Reported Additional Past Alcohol Use History / Comment(s): PATIENT STATES SHE STARTED SMOKING AT AGE 16 SMOKES 4 CIG PER DAY Past Drug Use History: None Reported - Past Family History Father Family Medical History: Cancer Additional Family Medical History / Comment(s): Father at age 48 from lung cancer. Mother Family Medical History: Congestive Heart Failure (CHF), CVA/TIA Additional Family Medical History / Comment(s): Mother is alive at age 68. She has suffered from a CVA and has chronic back problems. Patient has 2 brothers and 4 sisters with no major medical problems. Medications and Allergies Home Medications Medication Instructions Recorded Confirmed Type Gabapentin [Neurontin] 400 mg PO TID #90 cap 05/11/19 10/23/19 Rx Escitalopram [Lexapro] 10 mg PO DAILY 08/16/19 10/23/19 History Atenolol [Tenormin] 50 mg PO DAILY 10/23/19 10/23/19 History Cholecalciferol [Vitamin D3 (25 1,000 unit PO DAILY 10/23/19 10/23/19 History Mcg = 1000 Iu)] Dextroamphetamine/Amphetamine 30 mg PO DAILY 10/23/19 10/23/19 History [Adderall] Doxepin(Unknown Dose) 1 cap PO HS 10/23/19 10/23/19 History clonazePAM [KlonoPIN] 0.5 mg PO TID 10/23/19 10/23/19 History Allergies Allergy/AdvReac Type Severity Reaction Status Date / Time ketorolac [From Toradol] Allergy Anaphylaxis Verified 10/23/19 20:59 shellfish derived Allergy Anaphylaxis Verified 10/23/19 20:59 tramadol [From Ultram] Allergy Anaphylaxis Verified 10/23/19 20:59 ibuprofen AdvReac HIVES Verified 10/23/19 20:59 morphine AdvReac NAUSEA AND Verified 10/23/19 20:59 VOMITING Physical Exam Vitals: Vital Signs Temp Pulse Pulse Resp BP BP BP 10/24/19 11:30 59 L 18 122/109 10/24/19 11:00 61 15 104/69 10/24/19 10:30 64 17 98/72 10/24/19 10:00 64 18 110/77 10/24/19 09:30 65 14 106/61 10/24/19 09:00 77 16 102/67 10/24/19 08:30 65 18 97/69 10/24/19 08:00 67 80 16 100/67 10/24/19 07:30 70 15 101/69 10/24/19 07:00 73 17 101/57 10/24/19 06:30 72 15 96/61 10/24/19 06:00 77 20 95/58 10/24/19 05:30 82 19 108/71 10/24/19 05:15 73 16 105/67 10/24/19 05:00 74 16 101/65 10/24/19 04:45 73 21 101/73 10/24/19 04:30 20 96/65 10/24/19 04:15 79 16 95/64 10/24/19 04:00 97.6 F 78 80 16 92/65 10/24/19 03:45 77 15 102/66 10/24/19 03:30 81 17 107/74 10/24/19 03:15 89 18 102/64 10/24/19 03:00 82 15 85/69 10/24/19 02:45 87 16 83/58 10/24/19 02:30 88 15 87/57 10/24/19 02:15 90 17 74/57 10/24/19 02:12 74/57 10/24/19 02:00 91 18 78/56 10/24/19 01:45 104 H 80 24 82/52 78/56 10/24/19 01:30 88 80 19 90/59 78/56 10/24/19 01:17 99 F 88 20 90/59 10/24/19 01:15 92 19 117/87 10/24/19 01:00 117/87 10/24/19 00:45 58 H 117/87 10/24/19 00:30 32 H 117/87 10/24/19 00:15 138 H 40 H 117/87 10/24/19 00:00 120 H 49 H 117/87 10/23/19 23:48 130 H 124 H 47 H 117/87 10/23/19 22:56 115 H 24 10/23/19 22:54 99.0 F 115 H 24 106/67 10/23/19 21:47 99.0 F 94 24 10/23/19 20:39 99.0 F 41 L 18 123/91 10/23/19 20:31 93 18 10/23/19 20:25 99 20 100/70 10/23/19 20:22 90 18 10/23/19 19:08 98.8 F 117 H 24 140/104 Pulse Ox 10/24/19 11:30 98 10/24/19 11:00 98 10/24/19 10:30 98 10/24/19 10:00 98 10/24/19 09:30 99 10/24/19 09:00 97 10/24/19 08:30 10/24/19 08:00 98 10/24/19 07:30 97 10/24/19 07:00 97 10/24/19 06:30 98 10/24/19 06:00 98 10/24/19 05:30 98 10/24/19 05:15 98 10/24/19 05:00 98 10/24/19 04:45 97 10/24/19 04:30 96 10/24/19 04:15 97 10/24/19 04:00 96 10/24/19 03:45 97 10/24/19 03:30 96 10/24/19 03:15 97 10/24/19 03:00 97 10/24/19 02:45 96 10/24/19 02:30 96 10/24/19 02:15 96 10/24/19 02:12 10/24/19 02:00 96 10/24/19 01:45 96 10/24/19 01:30 96 10/24/19 01:17 98 10/24/19 01:15 97 10/24/19 01:00 95 10/24/19 00:45 10/24/19 00:30 94 L 10/24/19 00:15 10/24/19 00:00 96 10/23/19 23:48 98 10/23/19 22:56 10/23/19 22:54 10/23/19 21:47 10/23/19 20:39 96 10/23/19 20:31 10/23/19 20:25 100 10/23/19 20:22 10/23/19 19:08 99 Intake and Output 10/23/19 10/24/19 10/24/19 22:59 06:59 14:59 Intake Total 2242.546 441.25 Output Total 330 330 Balance 1912.546 111.25 Intake: IV 2225 300 0.9% Normal Saline 2225 300 Intake, IV Titration 17.546 21.25 Amount Dexmedetomidine/0.9% NaCl 17.546 21.25 (Pmx) 400 mcg In Empty Bag 1 bag @ Titrate IV . Q0M [facility] Rx#:[id number] Oral 120 Output: Urine 330 330 Other: Voiding Method Indwelling Catheter Indwelling Catheter # Voids 0 0 0 Weight 64.864 kg 68 kg GENERAL EXAM: Sleepy, but arousable, 49-year-old white female, with frequent c oughing, answering questions appropriately, remains on Precedex drip at 0.3 mics per kilo per minute comfortable in no apparent distress. HEAD: Normocephalic/atraumatic. EYES: Normal reaction of pupils, equal size. Conjunctiva pink, sclera white. NOSE: Clear with pink turbinates. THROAT: No erythema or exudates. NECK: No masses, no JVD, no thyroid enlargement, no adenopathy. CHEST: No chest wall deformity. Symmetrical expansion. LUNGS: Equal air entry with coarse breath sounds bilaterally CVS: Regular rate and rhythm, normal S1 and S2, no gallops, no murmurs, no rubs ABDOMEN: Soft, nontender. No hepatosplenomegaly, normal bowel sounds, no guarding or rigidity. EXTREMITIES: No clubbing, no edema, no cyanosis, 2+ pulses and upper and lower extremities. MUSCULOSKELETAL: Muscle strength and tone normal. SPINE: No scoliosis or deformity SKIN: No rashes CENTRAL NERVOUS SYSTEM: Alert and oriented -3. No focal deficits, tone is normal in all 4 extremities. PSYCHIATRIC: Alert and oriented -3. Appropriate affect. Intact judgment and insight. Results - Laboratory Findings CBC and BMP: 10/24/19 03:43 10/24/19 03:43 PT/INR, D-dimer D-Dimer 0.46 mg/L FEU (<0.60) 10/23/19 22:54 Abnormal lab findings: Abnormal Labs 10/23/19 10/23/19 10/23/19 19:15 19:15 23:50 WBC 14.5 H Neutrophils # 8.8 H Lymphocytes # Monocytes # 1.3 H Chloride Carbon Dioxide Glucose 100 H POC Glucose (mg/dL) 130 H Alkaline Phosphatase 138 H Urine Protein Urine Blood Ur Leukocyte Esterase Urine RBC Hyaline Casts Urine Mucus Urine Opiates Screen Ur Phencyclidine Scrn Ur Amphetamines Screen U Benzodiazepines Scrn 10/24/19 10/24/19 10/24/19 01:10 01:10 03:43 WBC 13.3 H Neutrophils # 12.2 H Lymphocytes # 0.7 L Monocytes # Chloride Carbon Dioxide Glucose POC Glucose (mg/dL) Alkaline Phosphatase Urine Protein 1+ H Urine Blood Moderate H Ur Leukocyte Esterase Trace H Urine RBC 14 H Hyaline Casts 5 H Urine Mucus Many H Urine Opiates Screen Detected H Ur Phencyclidine Scrn Detected H Ur Amphetamines Screen Detected H U Benzodiazepines Scrn Detected H 10/24/19 03:43 WBC Neutrophils # Lymphocytes # Monocytes # Chloride 116 H Carbon Dioxide 19 L Glucose 146 H POC Glucose (mg/dL) Alkaline Phosphatase Urine Protein Urine Blood Ur Leukocyte Esterase Urine RBC Hyaline Casts Urine Mucus Urine Opiates Screen Ur Phencyclidine Scrn Ur Amphetamines Screen U Benzodiazepines Scrn - Diagnostic Findings Chest x-ray: report reviewed, image reviewed Assessment and Plan Plan: Assessment: #1. Acute dyspnea, patient presents with a few day history of cough, dyspnea, sore throat, runny nose, COVID19 possibility is been ruled out, initial chest x- ray showed possibility of developing right lower lobe pneumonia however follow-u p chest x-ray today on 10/24/2019 did not show suspicious patchy infiltrates procalcitonin level was negative at 0.05. #2. Acute agitation, metabolic encephalopathy, possibly related to substance w ithdrawal. Patient denies taking large doses of guaifenesin, patient required doses of Ativan, Haldol and Precedex infusion #3. History of COPD, unspecified, not normally oxygen dependent #4. Current smoker #5. Chronic pain syndrome, chronic back pain, opiate dependence patient follows at the pain clinic #6. History of hypertension #7. Previous history of pneumonia #8. History of GERD/reflux #9. History of shingles #10. History of ADD/ADHD on Vyvanse #11. Episode of hypotension in the emergency department, improved with gentle hydration, could have been related to dehydration, doubt possibility of septic shock, given the negative procalcitonin Plan: Continue current antibiotics, patient is on a combination of Zithromax and Rocephin, follow-up chest x-ray did not show any definite evidence of pneumonia, probably calcific level is low making possibility of pneumonia unlikely. Covid 19 test is pending. Vital signs improved, and is receiving gentle hydration, she has been afebrile, she is less agitated, she is currently on Precedex infusion, we'll try to wean the Precedex off, maintain safety precautions. We'll continue to closely follow in the Intensive care unit, GI and DVT prophylaxis, will restart patient's home meds including Klonopin. We'll continue to closely follow I performed a history & physical examination of the patient and discussed their management with my nurse practitioner, Radhika Lanza. I reviewed the nurse practitioner's note and agree with the documented findings and plan of care. Lung sounds are positive forcoarse breath sounds throughout the lung pascal. The findings and the impression was discussed with the patient. I attest to the documentation by the nurse practitioner. Time with Patient: Greater than 30
[2019-10-24] MEDS: METOPROLOL TARTRATE 25 MG TAB PO SCH ×2 (17:35→20:13)
[2019-10-25] MEDS: SODIUM CHLORIDE 0.9% 1,000 ML IV SCH (03:47)
[2019-10-25] MEDS: HYDROcodone/APAP 7.5-325MG 1 EACH TAB PO PRN (03:50)
[2019-10-25 05:31] LABS: Basophils % (A) 0 %; Eosinophils # (A) 0.1 k/uL (0-0.7); Eosinophils % (A) 1 %; HCT 35.8 % (34.0-46.0); HGB 11.5 gm/dL (11.4-16.0); Lymphocytes # (A) 2.4 k/uL (1.0-4.8); Lymphocytes % (A) 22 %; MCH 31.4 pg (25.0-35.0); MCHC 32.2 g/dL (31.0-37.0); MCV 97.4 fL (80.0-100.0); Mean Platelet Volume 7.4; Monocytes # (A) 0.7 k/uL (0-1.0); Monocytes % (A) 7 %; Neutrophils # (A) 7.5 k/uL (1.3-7.7); Neutrophils % (A) 69 %; Platelet Count 289 k/uL (150-450); RBC 3.68 m/uL (3.80-5.40); RDW 13.2 % (11.5-15.5)
[2019-10-25 05:44] LABS: African American GFR (CKD) >90 (>60 ml/min/1.73 sqM); Anion Gap 5 mmol/L; Blood Urea Nitrogen 17 mg/dL (7-17); Calcium 9.2 mg/dL (8.4-10.2); Carbon Dioxide 21 mmol/L (22-30); Chloride 110 mmol/L (98-107); Glucose 90 mg/dL (74-99); Non-African American GFR(CKD) >90 (>60 ml/min/1.73 sqM); Sodium 136 mmol/L (137-145)
[2019-10-25] MEDS: clonazePAM 0.5 MG TAB PO PRN ×2 (06:37→08:43)
--- NOTE | 2019-10-25 07:31 | XR ---
EXAMINATION TYPE: XR chest 1V DATE OF EXAM: 10/25/2019 COMPARISON: 10/24/2019 HISTORY: 49-year-old female shortness of breath, rule out covid TECHNIQUE: Single frontal view of the chest is obtained. FINDINGS: ACF hardware. Heart upper limits of normal in size. Mild interstitial density remains. No patsy conso lidation or pleural effusion. Improved aeration at the left base. IMPRESSION: Improvement in aeration at the left base. Mild interstitial density remains and could reflect atypica l pneumonia.
[2019-10-25] MEDS: ESCITALOPRAM 10 MG TAB PO SCH (08:19)
[2019-10-25] MEDS: AZITHROMYCIN 500 MG TAB PO SCH (08:19)
[2019-10-25] MEDS: METOPROLOL TARTRATE 25 MG TAB PO SCH (08:19)
[2019-10-25] MEDS: GABAPENTIN 400 MG CAP PO SCH (08:19)
[2019-10-25] MEDS ORDERED: clonazePAM 0.5 MG TAB PO STA (08:41)
[2019-10-25 12:16] VITALS: TEMP 98.6
--- NOTE | 2019-10-25 13:12 | P.PN ---
Subjective Progress Note Date: 10/25/19 Principal diagnosis: Altered mental status, cough, fever 49-year-old female patient with past medical history of COPD, anxiety, hypertension, previous episodes of pneumonia, who presented to the emergency department on 10/23/2019 with complaints of cough, runny nose, sore throat. Patient presented to the emergency department via EMS, she reported fevers, myalgias, diaphoresis,productive cough clear whitish sputum. Recent history of travel to [place], to see her grandson at the [facility]. Patient reportedly was taken some cough syrup, but she states she only took 2 doses of 2 teaspoons each time. Patient does have history of chronic pain syndrome, chronic back pain, follows with the pain clinic, has a history of opiate dependence, she is on Vyvanse for history of ADHD. She is a current smoker. ED evaluation included a chest x-ray which showed possibility of developing right lower lobe infiltrate. Lab work showed white blood cell count of 14.5, hemog lobin 14.6, d-dimer was normal at 0.46, electrolytes were within normal limits, plasma lactic acid was 0.7, troponin was less than 0.0122, LDH was normal at 547, pro calcitonin was low at 0.05 making possibility of bacterial infection unlikely. ProBNP was normal at 38, CRP was within normal limits, urinalysis showed trace leuk trase, no obvious sign of infection, urine drug screen was positive for opiates, phencyclidine, amphetamines, and benzodiazepines, influenza screen was negative, COVID 19 is being ruled out, test pending. Patient did have a couple episodes of hypotension in the emergency department with a blood pressure 70s over 40s, she was tachycardic, IV hydration has been started, patient was started on Zithromax and Rocephin for possibility of developing right lower lobe pneumonia, patient was very anxious, and when she arrived in the intensive care unit she was acutely agitated, combative, and spitting at the nurses, she was given a dose of lorazepam, she was given some Haldol, however she continued to be quite agitated, requiring initiation of Precedex infusion. 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 Blood pressure has improved, patient has been afebrile. The patient is seen today 10/25/2019 in follow-up in the intensive care unit. She is awake and alert. Oriented 3. Cooperative. She denies any worsening shortness of breath, cough or congestion. She's been maintaining good O2 saturations in the mid 90s on room air. She's afebrile. Hemodynamically stable. White count 11.0. Hemoglobin 11.5. Sodium 136. Bicarb 21. Creatinine 0.60. CoVID 19 results still pending. She's currently on azithromycin. She is asking to go home. Objective - Vital Signs Vital signs: Vital Signs Temp 98.6 F 10/25/19 12:00 Pulse 60 10/25/19 12:00 Resp 18 10/25/19 12:00 BP 110/66 10/25/19 12:00 Pulse Ox 95 10/25/19 12:00 Intake & Output 10/24/19 10/25/19 10/25/19 18:59 06:59 18:59 Intake Total 5301.493 0899 390 Output Total 965 960 250 Balance 294.993 345 140 Weight 69 kg Intake: IV 975 825 150 0.9% Normal Saline 975 825 150 Intake, IV Titration 44.993 Amount Dexmedetomidine/0.9% NaCl 44.993 (Pmx) 400 mcg In Empty Bag 1 bag @ Titrate IV . Q0M [facility] Rx#:[id number] Oral 240 480 240 Output: Urine 965 960 250 Other: Voiding Method Indwelling Catheter Indwelling Catheter Toilet # Voids 0 1 - Exam GENERAL EXAM: Awake alert oriented 3 49-year-old female, answering questions appropriately, comfortable in no apparent distress. HEAD: Normocephalic/atraumatic. EYES: Normal reaction of pupils, equal size. Conjunctiva pink, sclera white. NOSE: Clear with pink turbinates. THROAT: No erythema or exudates. NECK: No masses, no JVD, no thyroid enlargement, no adenopathy. CHEST: No chest wall deformity. Symmetrical expansion. LUNGS: Equal air entry with coarse breath sounds bilaterally CVS: Regular rate and rhythm, normal S1 and S2, no gallops, no murmurs, no rubs ABDOMEN: Soft, nontender. No hepatosplenomegaly, normal bowel sounds, no guarding or rigidity. EXTREMITIES: No clubbing, no edema, no cyanosis, 2+ pulses and upper and lower extremities. MUSCULOSKELETAL: Muscle strength and tone normal. SPINE: No scoliosis or deformity SKIN: No rashes CENTRAL NERVOUS SYSTEM: Alert and oriented -3. No focal deficits, tone is normal in all 4 extremities. PSYCHIATRIC: Alert and oriented -3. Appropriate affect. Intact judgment and insight. - Labs CBC & Chem 7: 10/25/19 05:13 10/25/19 05:13 Labs: Abnormal Lab Results - Last 24 Hours (Table) 10/25/19 10/25/19 Range/Units 05:13 05:13 WBC 11.0 H (3.8-10.6) k/uL RBC 3.68 L (3.80-5.40) m/uL Sodium 136 L (137-145) mmol/L Chloride 110 H (98-107) mmol/L Carbon Dioxide 21 L (22-30) mmol/L Assessment and Plan Assessment: #1. Acute dyspnea, patient presents with a few day history of cough, dyspnea, sore throat, runny nose, COVID19 possibility is been ruled out, initial chest x- ray showed possibility of developing right lower lobe pneumonia however follow- up chest x-ray today on 10/24/2019 did not show suspicious patchy infiltrates procalcitonin level was negative at 0.05. #2. Acute agitation, metabolic encephalopathy, possibly related to substance withdrawal. Patient denies taking large doses of guaifenesin, patient required doses of Ativan, Haldol and Precedex infusion. She is awake and alert and oriented 3 and cooperative. Asking to go home. #3. History of COPD, unspecified, not normally oxygen dependent #4. Current smoker #5. Chronic pain syndrome, chronic back pain, opiate dependence patient follows at the pain clinic #6. History of hypertension #7. Previous history of pneumonia #8. History of GERD/reflux #9. History of shingles #10. History of ADD/ADHD on Vyvanse #11. Episode of hypotension in the emergency department, improved with gentle hydration, could have been related to dehydration, doubt possibility of septic shock, given the negative procalcitonin Plan: The patient was seen and evaluated by Dr. Gray She is currently stable from the pulmonary and critical care standpoint She could go home if cleared medically Covid 19 results pending She is educated regarding the importance of isolation in the outpatient setting She verbalized understanding and is agreeable to the plan We'll see as needed I, the cosigning physician, performed a history & physical examination of the patient. Lungs sounds are clear. Maintaining good O2 saturations in the 90s on room air. I discussed the assessment and plan of care with my nurse practitioner, Shelby Flannery. I attest to the above note as dictated by her.
[2019-10-25 13:28] VITALS: BP 118/85; PULSE 75; RESP 22
--- NOTE | 2019-10-25 15:20 | P.DS ---
Providers Date of admission: 10/24/19 06:32 Attending physician: Jose Martinez MD Consults: 10/24/19 01:51 Consult Physician Stat Consulting Provider: Jose Martinez Consult Reason/Comments: ICU admit Do you want consulting provider notified?: Already Contacted 10/24/19 07:18 Consult Physician Stat Consulting Provider: Neetu Gray Consult Reason/Comments: ICU admit Do you want consulting provider notified?: Yes, Notify in am Primary care physician: Estelle Butterfield Hospital Course: patient is admitted for shortness of breath and rule out the COVID19 testing is still pending patient was pretty status improved patient appears to have COPD exacerbation. Patient was having agitation episodes from substance abuse withdrawal which resolved at this time patient was bit hypotensive hypotension improved and patient is being discharged today. PHYSICAL EXAMINATION: GENERAL: The patient is alert and oriented x3, not in any acute distress. Well developed, well nourished. HEENT: Pupils are round and equally reacting to light. EOMI. No scleral icterus. No conjunctival pallor. Normocephalic, atraumatic. No pharyngeal erythema. No thyromegaly. CARDIOVASCULAR: S1 and S2 present. No murmurs, rubs, or gallops. PULMONARY: Chest is clear to auscultation, no wheezing or crackles. ABDOMEN: Soft, nontender, nondistended, normoactive bowel sounds. No palpable organomegaly. MUSCULOSKELETAL: No joint swelling or deformity. EXTREMITIES: No cyanosis, clubbing, or pedal edema. NEUROLOGICAL: Gross neurological examination did not reveal any focal deficits. SKIN: No rashes. Note: Because of COVID 19 isolation, some of the history and physical exam findings or indirect and obtained from nursing staff, and other physician examinations to avoid unnecessary contact with the patient. Assessment and Plan Plan: -Systemic inflammatory response syndrome with URI like symptoms COVID 19 testing is pending -Agitation secondary withdrawals fromantipsychotic medications -Hypertension probably secondary to hypovolemia improved with IV fluids -Leukocytosis due to assessment #1 -COPDwith mild acute exacerbation -Gastric dysphagia reflux disease Patient Condition at Discharge: Fair Plan - Discharge Summary Discharge Rx Participant: Yes New Discharge Prescriptions: New Fluticasone/Salmeterol [Fluticasone-Salmeterol 113-14] 2 puff INHALATION BID #1 device Tiotropium [place] [Spiriva] 1 cap INHALATION DAILY #1 device Albuterol Inhaler [Ventolin Hfa Inhaler] 1 - 2 puff INHALATION Q6HR PRN #1 inhaler PRN Reason: Shortness Of Breath Or Wheezing Metoprolol Tartrate [Lopressor] 25 mg PO BID #60 tab Continue Gabapentin [Neurontin] 400 mg PO TID #90 cap Escitalopram [Lexapro] 10 mg PO DAILY Doxepin(Unknown Dose) 1 cap PO HS Dextroamphetamine/Amphetamine [Adderall] 30 mg PO DAILY Cholecalciferol [Vitamin D3 (25 Mcg = 1000 Iu)] 1,000 unit PO DAILY clonazePAM [KlonoPIN] 0.5 mg PO TID Discontinued Atenolol [Tenormin] 50 mg PO DAILY Discharge Medication List Gabapentin [Neurontin] 400 mg PO TID #90 cap 05/11/19 [Rx] Escitalopram [Lexapro] 10 mg PO DAILY 08/16/19 [History] Cholecalciferol [Vitamin D3 (25 Mcg = 1000 Iu)] 1,000 unit PO DAILY 10/23/19 [History] Dextroamphetamine/Amphetamine [Adderall] 30 mg PO DAILY 10/23/19 [History] Doxepin(Unknown Dose) 1 cap PO HS 10/23/19 [History] clonazePAM [KlonoPIN] 0.5 mg PO TID 10/23/19 [History] Albuterol Inhaler [Ventolin Hfa Inhaler] 1 - 2 puff INHALATION Q6HR PRN #1 inhaler 10/25/19 [Rx] Fluticasone/Salmeterol [Fluticasone-Salmeterol 113-14] 2 puff INHALATION BID #1 device 10/25/19 [Rx] Metoprolol Tartrate [Lopressor] 25 mg PO BID #60 tab 10/25/19 [Rx] Tiotropium [place] [Spiriva] 1 cap INHALATION DAILY #1 device 10/25/19 [Rx] Follow up Appointment(s)/Referral(s): Estelle Butterfield DO [Primary Care Provider] - 3 Days Patient Instructions/Handouts: How to Stop Smoking (DC) Discharge Disposition: HOME SELF-CARE
--- NOTE | 2019-10-27 12:13 | CDI ---
Documentation Clarification Form Date: From: Gisella Leblanc Admit Date: 10/24/2019 06:32:00 AM Patient Name: Isabell Winston Visit Number: [id number] Discharge Date: 10/25/2019 01:35:00 PM ATTENTION: The Clinical Documentation Specialists (CDI) and [facility] Coding Staff appreciate your assistance in clarifying documentation. Please respond to the clarification below the line at the bottom and electronically sign. The CDI & [facility] Coding staff will review the response and follow-up if needed. Please note: Queries are made part of the Legal Health Record. If you have any questions, please contact the author of this message via ITS. Dr. Laron Manning Covid 19 testing is still pending is documented in the discharge summary. Pt admitted with COPD exacerbation. Patient history/risk factors: 49 yo with COPD, smoker, potential exposure in [place] Clinical Indicators: productive cough with clear sputum, shortness of breath, subjective fevers, myalgias, diaphoresis CXR: 10/23 very mild increased lung markings may be present which can be associated with infection Labs: Covid-19 negative, 10/24 WBC 11 Vital Signs: in ER temp 98.8, HR 117, RR 24, BP 140/104, SaO2 99% Treatment: In order to capture the severity of condition, please clarify if the above treatment/clinical indicators signify: COVID-19 Suspected COVID-19 ruled out COVID-19 confirmed Other, please specify Unable to determine (Last Form Revision: September 2019) Unable to determine. This query is not necessary MTDD
== END 2019-10-25 13:35 | disposition home or self-care (01) | DRG 191 ==
LOC: EC 19:02 → 4SSUR 20:14 → 2SICU 10-24 02:24 → OBSVTOIN 10-24 06:32
PROVIDERS: ADMIT Internal Medicine; ATTEND Internal Medicine
DX: J44.1 Chronic obstructive pulmonary disease with (acute) exacerbation (principal); F11.20 Opioid dependence, uncomplicated; I95.9 Hypotension, unspecified; D72.829 Elevated white blood cell count, unspecified; Z20.828 Contact with and (suspected) exposure to other viral communicable diseases; J06.9 Acute upper respiratory infection, unspecified; E86.1 Hypovolemia; I10 Essential (primary) hypertension; R45.1 Restlessness and agitation; T43.4X5A Adverse effect of butyrophenone and thiothixene neuroleptics, initial encounter; K21.9 Gastro-esophageal reflux disease without esophagitis; R13.10 Dysphagia, unspecified; G89.4 Chronic pain syndrome; M51.36 Other intervertebral disc degeneration, lumbar region; G47.00 Insomnia, unspecified; K44.9 Diaphragmatic hernia without obstruction or gangrene; G43.909 Migraine, unspecified, not intractable, without status migrainosus; M54.2 Cervicalgia; I25.2 Old myocardial infarction; F90.9 Attention-deficit hyperactivity disorder, unspecified type; F41.0 Panic disorder [episodic paroxysmal anxiety]; F17.210 Nicotine dependence, cigarettes, uncomplicated; Z71.6 Tobacco abuse counseling; Z79.82 Long term (current) use of aspirin; Z79.899 Other long term (current) drug therapy; Z87.442 Personal history of urinary calculi; Z86.19 Personal history of other infectious and parasitic diseases; Z87.19 Personal history of other diseases of the digestive system; Z86.14 Personal history of Methicillin resistant Staphylococcus aureus infection; Z87.01 Personal history of pneumonia (recurrent); Z90.49 Acquired absence of other specified parts of digestive tract; Z98.891 History of uterine scar from previous surgery; Z98.1 Arthrodesis status; Z98.890 Other specified postprocedural states; Z88.6 Allergy status to analgesic agent; Z88.5 Allergy status to narcotic agent; Z91.013 Allergy to seafood; Z80.1 Family history of malignant neoplasm of trachea, bronchus and lung; Z82.49 Family history of ischemic heart disease and other diseases of the circulatory system; Z82.3 Family history of stroke; Z82.69 Family history of other diseases of the musculoskeletal system and connective tissue
CPT/HCPCS: 36415; 71045; 80048; 80053; 80306; 80329; 81001; 82553; 83520; 83605; 83615; 83735; 83880; 84145; 84484; 85025; 85379; 86140; 87502; 93005; 94640; 96374; 96375; 96376; 99285

== ENCOUNTER → 2019-12-11 | Outpatient (CLI) | payer OTHER ==
--- NOTE | 2019-12-11 14:26 | P.PAINPG ---
Subjective Progress Note Date: 12/11/19 THIS ENCOUNTER WAS PERFORMED A TELEMEDICINE VISIT VIA SECURE TWO-WAY VIDEO AND AUDIO TO MINIMIZE RISK AND TRANSMISSION OF COVID-19. This is a 49-year-old lady with history of chronic lower back pain, diagnosed with Right lumbar radiculopathy, Lumbar spondylosis without myelopathy, managed in our clinic with a combination of interventional pain procedures and medications. She underwent lumbar RFA on the right in 2018. Her medications include [place] 7.5/325mg TID PRN and gabapentin 400mg TID. She reports that medications are controlling her pain, improving ADLs; she denies side effects from medications. She is requesting increaing [place] to 10/325 until she can get in for procedure. Also, She underwent L distal radius ORIF in July 2019 and reports that her wrist is still swollen and painful. She is scheduled to meet with orthopedic surgeon soon. Today, her pain is located in right buttock, right posterior thigh, right hawk, associated with numbness in lateral 3 toes. Pain rated as 8-9/10. Pain worse in leg compared to back. Pain is worse with driving, standing in one place; better with medications, heat, ice. She also endorses subjective weakness of RLE. She is able to ambulate. Patient denies bowel/bladder incontinence, or any other signs or symptoms of cauda equina syndrome. There are no signs of acute intoxication, and no indications of medication diversion or overuse. In addition to above, 13-point review of systems is also negative for chest pain, shortness of breath, changes in vision, changes in hearing, new onset weakness, abdominal pain, diarrhea, extreme fatigue, malaise, fever, skin changes, homicidal or suicidal ideation, or bowel or bladder incontinence. Objective Physical exam: Constitutional: Healthy appearing, well developed, alert, in no acute distress, obese Psychiatric: Judgement and insight intact, alert and oriented Mood and Affect: mood normal, affect appropriate Head and Face: Inspection: normocephalic atraumatic, extraocular movement intact Respiratory: Breathing non-labored nondyspneic Skin: Head and Neck: skin with no lesions or rash Gait: Able to walk without assistive device MSK: left wrist appears slightly swollen Assessment: Right lumbar radiculopathy Lumbar spondylosis without myelopathy status post RFA bilaterally pain right wrist s/p distal radius ORIF Chronic use of high risk medications including opioids Plan: Opioid agreement: Signed with the patient and on file Procedures: We will schedule TFESI right side at L4 5 level Medications: One prescription given for norco 10/325 #90 (until patient can com e in for procedure) Subsequent month prescriptio for [place] 7.5/325mg TID #90. Gabapentin 400mg TID #90 with 1 refill Disposition: Return to the above-mentioned procedure as soon as possible Maps were reviewed. She obtains clonazepam from PCP, no recent dose change PQRS Measure Charge Sheet PQRS Narrative: Smoking Status Current every day smoker Narcotic Agreement Date Signed 05/11/19 Pain Intensity [Lower Back] 10 Scale Used Numeric (1 - 10) Hx Alcohol Use (MH) Yes: rare Home Medications: Ambulatory Orders Escitalopram [Lexapro] 10 mg PO DAILY 08/16/19 Cholecalciferol [Vitamin D3 (25 Mcg = 1000 Iu)] 1,000 unit PO DAILY 10/23/19 Dextroamphetamine/Amphetamine [Adderall] 30 mg PO DAILY 10/23/19 Doxepin(Unknown Dose) 1 cap PO HS 10/23/19 clonazePAM [KlonoPIN] 0.5 mg PO TID 10/23/19 Albuterol Inhaler (Mhu) [Ventolin Hfa Inhaler (Mhu)] 1 - 2 puff INHALATION Q6HR PRN #1 inhaler 10/25/19 Fluticasone/Salmeterol [Fluticasone-Salmeterol 113-14] 2 puff INHALATION BID #1 device 10/25/19 Metoprolol Tartrate [Lopressor] 25 mg PO BID #60 tab 10/25/19 Tiotropium [place] [Spiriva] 1 cap INHALATION DAILY #1 device 10/25/19 Gabapentin [Neurontin] 400 mg PO TID #90 cap 11/21/19 HYDROcodone/APAP 7.5-325MG [[place] 7.5-325] 1 tab PO Q8H PRN 30 Days #90 tab 11/21/19 Controlled Substance Measures - Controlled Substance Measures Is patient prescribed a controlled substance at discharge?: Yes When asked, does pt state using other controlled substances?: Yes If prescribed controlled substance>3 days was MAPS reviewed?: Yes If Rx opioid, was Start Talking consent form obtained?: Yes If opioid is for acute pain is fill amount 7 days or less?: No Was information provided regarding opioid addiction?: Yes
== END ==
LOC: PNWHC3 07:46
PROVIDERS: ATTEND Anesthesiology
DX: Z53.9 Procedure and treatment not carried out, unspecified reason (principal)

== ENCOUNTER 2019-12-30 14:21 | Emergency (ER) | payer OTHER ==
[2019-12-30 14:26] VITALS: BP 150/93; PULSE 119; RESP 18; TEMP 98.7
[2019-12-30] MEDS ORDERED: HYDROmorphone 0.5 MG/0.5 ML SYRINGE IM STA (14:34)
--- NOTE | 2019-12-30 14:41 | ED ---
Extremity Problem HPI - General Chief complaint: Extremity Problem,Nontraumatic Stated complaint: lt arm pain Time Seen by Provider: 12/30/19 14:27 Source: patient Mode of arrival: ambulatory Limitations: no limitations - History of Present Illness Initial comments: Patient is a 49-year-old female presenting to the emergency department with chief complaint of left hand pain. Patient reports in July she underwent a post traumatic surgery on the left wrist. Patient reports her last reported she developed pain and mild swelling at the injury site. Patient denies any recent direct trauma. States was a gradual onset of pain for no particular reason. Denies any erythematous or ecchymotic skin changes. Does report taking [place] at home for pain with minimal improvement in symptoms. States she still able to wiggle her fingers although has decreased strength due to pain. States she has a loss of sensation in the 4&5th digit. States after surgery she had occasional tingling but now there is any numbing sensation. - Related Data Home Medications Medication Instructions Recorded Confirmed Escitalopram [Lexapro] 10 mg PO DAILY 08/16/19 12/08/19 Cholecalciferol [Vitamin D3 (25 1,000 unit PO DAILY 10/23/19 12/08/19 Mcg = 1000 Iu)] Dextroamphetamine/Amphetamine 30 mg PO DAILY 10/23/19 12/08/19 [Adderall] Doxepin(Unknown Dose) 1 cap PO HS 10/23/19 12/08/19 clonazePAM [KlonoPIN] 0.5 mg PO TID 10/23/19 12/08/19 Previous Rx's Medication Instructions Recorded Albuterol Inhaler (Mhu) [Ventolin 1 - 2 puff INHALATION Q6HR PRN #1 10/25/19 Hfa Inhaler (Mhu)] inhaler Fluticasone/Salmeterol 2 puff INHALATION BID #1 device 10/25/19 [Fluticasone-Salmeterol 113-14] Metoprolol Tartrate [Lopressor] 25 mg PO BID #60 tab 10/25/19 Tiotropium [place] [Spiriva] 1 cap INHALATION DAILY #1 device 10/25/19 Gabapentin [Neurontin] 400 mg PO TID #90 cap 12/11/19 Gabapentin [Neurontin] 400 mg PO TID #90 cap 12/11/19 HYDROcodone/APAP 10-325MG [[place] 1 tab PO Q8HR PRN 30 Days #90 tab 12/11/19 10-325] HYDROcodone/APAP 7.5-325MG [[place] 1 tab PO Q8H PRN 30 Days #90 tab 12/11/19 7.5-325] HYDROcodone/APAP 7.5-325MG [[place] 1 tab PO Q8HR PRN 30 Days #90 tab 12/11/19 7.5-325] Allergies Allergy/AdvReac Type Severity Reaction Status Date / Time ketorolac [From Toradol] Allergy Anaphylaxis Verified 12/30/19 14:26 shellfish derived Allergy Anaphylaxis Verified 12/30/19 14:26 tramadol [From Ultram] Allergy Anaphylaxis Verified 12/30/19 14:26 ibuprofen AdvReac HIVES Verified 12/30/19 14:26 morphine AdvReac NAUSEA AND Verified 12/30/19 14:26 VOMITING Review of Systems ROS Statement: Those systems with pertinent positive or pertinent negative responses have been documented in the HPI. ROS Other: All systems not noted in ROS Statement are negative. Past Medical History Past Medical History: COPD, GERD/Reflux, Hypertension, Pneumonia Additional Past Medical History / Comment(s): chronic back pain, lumbar degenerative disc disease, insomnia, hx shingles, hiatal hernia, kidney stones. 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, migraines,; NECK PAIN , LEFT WRIST FRACTURE Last Myocardial Infarction Date:: 08/27/2016 History of Any Multi-Drug Resistant Organisms: MRSA Date of last positivie culture/infection: 09/22/09 MDRO Source:: neck Past Surgical History: Appendectomy, Back Surgery, Section, Cholecystectomy, Orthopedic Surgery Additional Past Surgical History / Comment(s): Cervical spine fusion with insertion of a metal plate, EGD, colonoscopy, radiofrequency ablation, Past Anesthesia/Blood Transfusion Reactions: No Reported Reaction Additional Past Anesthesia/Blood Transfusion Reaction / Comment(s): CLAUSTROPHOBIA Past Psychological History: ADD/ADHD, Anxiety, Panic Disorder Smoking Status: Current every day smoker - Past Family History Father Family Medical History: Cancer Additional Family Medical History / Comment(s): Father at age 48 from lung cancer. Mother Family Medical History: Congestive Heart Failure (CHF), CVA/TIA Additional Family Medical History / Comment(s): Mother is alive at age 68. She has suffered from a CVA and has chronic back problems. Patient has 2 brothers and 4 sisters with no major medical problems. General Exam Limitations: no limitations General appearance: alert, in no apparent distress Head exam: Present: atraumatic, normocephalic, normal inspection Eye exam: Present: normal appearance, PERRL, EOMI Pupils: Present: normal accommodation ENT exam: Present: normal exam, normal oropharynx, mucous membranes moist Neck exam: Present: normal inspection, full ROM Respiratory exam: Present: normal lung sounds bilaterally Cardiovascular Exam: Present: regular rate, normal rhythm, normal heart sounds Extremities exam: Present: tenderness (Tenderness along the anterior and medial aspect left wrist. ), other (+2 ulnar and radial pulses bilaterally. Dimi nished sensation in the fourth and fifth digit). Absent: normal inspection (Very mild swelling along the medial aspect of the left wrist.), full ROM (Limited range of motion with flexion and extension of the left wrist.), normal capillary refill (Unable to determine capillary refill due to acrylic nails.) Back exam: Present: normal inspection, full ROM Neurological exam: Present: alert, oriented X3 Psychiatric exam: Present: normal affect, normal mood Skin exam: Present: warm, dry, intact, normal color Course Vital Signs 12/30/19 14:22 Temperature 98.7 F Pulse Rate 119 H Respiratory 18 Rate Blood Pressure 150/93 O2 Sat by Pulse 99 Oximetry Medical Decision Making - Medical Decision Making Patient is a 49-year-old female presenting to emergency Department with a chief complaint of left arm pain. On exam she has mild swelling to the region with no new injury. She does have decreased/diminished sensation in the fourth and fifth digit. Unable to fully examine Early refill due to acrylic nails. Skin color is uniform throughout the whole hand wrist and forearm. No changes in temperature. X-ray reveals no change in position compared to old exam. There could potentially be a delayed union due to minimal callus formation. Patient advised to follow-up with . Patient given analgesia in the ED. Patient already takes [place] at home. Advised to apply ice compress to minimize symptoms. Return parameters thoroughly discussed the patient was understanding and agreeable. Case discussed with physician. Disposition Clinical Impression: Left wrist pain Disposition: HOME SELF-CARE Condition: Good Instructions (If sedation given, give patient instructions): Wrist Injury (ED) Additional Instructions: Follow-up with . Apply ice compresses and keep the arm elevated. Return to emergency department if symptoms worsen. Is patient prescribed a controlled substance at d/c from ED?: No Referrals: Joyce Klein DO [Primary Care Provider] - 1-2 days Time of Disposition: 15:04
--- NOTE | 2019-12-30 14:52 | XR ---
EXAMINATION TYPE: XR wrist complete LT DATE OF EXAM: 12/30/2019 COMPARISON: 09/08/2019 HISTORY: Pain and swelling TECHNIQUE: 4 views FINDINGS: There is a plate with screws fixing old fracture of the distal radial metaphysis. Fragments are in anatomic position. Fracture line still visible. Carpal bones are intact. There is minimal chio faisal formation. IMPRESSION: No change in position compared to old exam. This could be a delayed union.
[2019-12-30] MEDS ORDERED: ACET/COD 300 MG/30 MG STARTER PACK 6 TAB BTL PO STA (15:10)
== END 2019-12-30 15:28 | disposition home or self-care (01) ==
LOC: EC 14:21
DX: M25.532 Pain in left wrist (principal); M79.642 Pain in left hand; R20.0 Anesthesia of skin; M79.89 Other specified soft tissue disorders; F41.9 Anxiety disorder, unspecified; F41.0 Panic disorder [episodic paroxysmal anxiety]; I10 Essential (primary) hypertension; F17.200 Nicotine dependence, unspecified, uncomplicated; I25.2 Old myocardial infarction; Z88.5 Allergy status to narcotic agent; Z88.6 Allergy status to analgesic agent; Z88.8 Allergy status to other drugs, medicaments and biological substances; Z91.013 Allergy to seafood; Z80.1 Family history of malignant neoplasm of trachea, bronchus and lung; Z82.3 Family history of stroke; Z86.14 Personal history of Methicillin resistant Staphylococcus aureus infection; Z90.49 Acquired absence of other specified parts of digestive tract; Z98.890 Other specified postprocedural states; Z98.1 Arthrodesis status
CPT/HCPCS: 99283; 96372; 73110; J1170

== ENCOUNTER → 2020-01-31 | Outpatient (CLI) | payer OTHER ==
--- NOTE | 2020-02-01 12:27 | P.PAINPG ---
Subjective Progress Note Date: 01/31/20 This is a follow-up visit for this 49 year old female with a history of severe and chronic low back pain secondary to lumbar degenerative disc disease, lumbar spondylosis with facet arthropathy, currently she is complaining of severe low back pain . The intensity of the pain interfering with her quality of life, the patient and the increased over the last few weeks And the pain associated with severe numbness and tingling sensation mainly to the right lower extremity The patient currently on norco 7.5 /325 every 6 hours, and Neurontin 600 mg 3 times a day, , and Neurontin 400 milligrams 3 times a day. She reported the current medication is not helping to control her pain she is not able to do any activity at home , and any activity increases her pain significantly patient denies any excessive drowsiness or sleepiness, patient denies any suicidal ideation, continued to have severe low back pain which is increased with any activity Review of systems is negative for chest pain, shortness of breath, abdominal pain, malaise, fever, night sweats, chills, homicidal or suicidal ideation, or bowel or bladder incontinence. Objective - Exam Physical Examinations : -Constitutiona : Cooperative , not in acute distress . -HEENT : nech : supple , no Lymphadenopathy , normal thyroid size . : eyes : no ptosis , no icterus, no photophobia . : ENT : normal of hearing , normal oropharynx , no Thrush . - Respiratory : Chest clear to auscultations Bilaterally , no wh eezing , no Rhonchi . - Cardiovascula : regular rate and rhythem , S1 , S2 , no S3 , no S4. - Gastrointestina : abdomen soft no tenderness , bowel sounds , no organomegally . - Genitourinary : Defferred . - neurologic : Cranial nerve II to XII intact , no focal neurological deffecit . -psychatric : alert , oriented X 3 , appropriate affect , in tact judgment and insight . -Lymphatic : no Lymphadenopathy . - musculoskeltal : Lumber spine moter stegnth lower extremities ,thigh and legs 5/5 Right side , 5/5 Left side deep tendon reflexes : normal Knee Jerk , normal ankle Jerk lumber facet Loading Test =positive Right , positive Left Range of motion of the lumbar spine Flexion 30 degrees, extension 10 degrees strait leg raising test = positive at 30 degree Fabere test= positive Right , and positive LT . Sever tenderness over the Sacroiliac joint on the Right , and Left sides Assessment and Plan Plan: Assessment and plan= chronic low back pain secondary to lumbar degenerative disc disease , lumbar spondylosis with lumbar facet arthropathy . Lumbar radiculopathy chronic and current use of high-risk medication (opioids) Patient denies any side effects of the current pain medication and the current treatment/medication helping the patient to do activity of daily living , Diagnoses, prognosis, treatment options, including but not limited to physical therapy, medication management, interventional therapies, and surgery, were discussed with the patient All the questions answered The narcotic consent was signed and patient agreed and understood the side effects and complications of opioid treatment. Patient signed the narcotic agreement, and was orally counseled, not to overuse, not to abuse, not to Divert , not tp sell pain medication, and to take it as prescribed only, Patient was counseled not to drive or operate heavy equipment while using narcotic medication, and advised not to use alcohol or any Illicit drugs while using the narcotis. understanding that lack of compliance with any of the above instructions, will likely to cause discharge from, the pain service, not to renew his narcotic prescriptions MAPS Reviwed and it was apropriate . Medication managements= patient will be given prescription for Percocet 7.5/325 every 8 hours, discontinue [place], continue Neurontin 400 mg 3 times a day Diagnostics studies= patient referred to have MRI of the lumbar spine without contrast, secondary to increased intensity of the pain . The patient will follow up in the pain clinic in 2 weeks , discussed the results of the MRI, possible referral for spine surgery versus interventional pain management , Time with Patient: Less than 30 PQRS Measure Charge Sheet Measure #130: Documentation of Current Meds in Medical Chart: Patient's medications documented in chart Measure #226: Tobacco Use: Screen & Cessation Intervention: Pt screened for tobacco use AND intervention given Measure #111: Pneumonia Vaccination: Pneumococcal vaccine NOT administered or previously given Measure #47: Advance Care Plan: Advance care planning discussed & documented, pt chose/unable to give Measure #412: Opioid Treatment Agreement: Documented signed opioid trtmnt agreemnt min once during opioid trtmnt Measure #408: Opioid Therapy Follow-up Evaluation: Patient had f/u eval minimum every 3 months during opioid therapy Measure #317: Preventitive Care & Scrn High Bld Press & F/U: Normal blood pressure, f/u not required Measure #128: Body Mass Index (BMI) Screening & Follow-up: BMI documented ABOVE normal parameters - f/u documented Measure #131: Pain Assessment & Follow-up: Pain positive & plan documented, Follow-up scheduled Measure #431: Unhealthy Alcohol Use Preventative Care & Scrn: Patient not identified as an unhealthy alcohol user PQRS Narrative: Smoking Status Current every day smoker Narcotic Agreement Date Signed 05/11/19 Hx Alcohol Use (MH) Yes: rare Home Medications: Ambulatory Orders Escitalopram [Lexapro] 10 mg PO DAILY 08/16/19 Cholecalciferol [Vitamin D3 (25 Mcg = 1000 Iu)] 1,000 unit PO DAILY 10/23/19 Dextroamphetamine/Amphetamine [Adderall] 30 mg PO DAILY 10/23/19 clonazePAM [KlonoPIN] 0.5 mg PO TID 10/23/19 Albuterol Inhaler (Mhu) [Ventolin Hfa Inhaler (Mhu)] 1 - 2 puff INHALATION Q6HR PRN #1 inhaler 10/25/19 Metoprolol Tartrate [Lopressor] 25 mg PO BID #60 tab 10/25/19 Gabapentin [Neurontin] 400 mg PO TID #90 cap 12/11/19 HYDROcodone/APAP 7.5-325MG [[place] 7.5-325] 1 tab PO Q8HR PRN 30 Days #90 tab 12/11/19 Tiotropium [place] [Spiriva] 1 puff INHALATION DAILY 01/15/20 Controlled Substance Measures - Controlled Substance Measures Is patient prescribed a controlled substance at discharge?: Yes When asked, does pt state using other controlled substances?: No If prescribed controlled substance>3 days was MAPS reviewed?: Yes If Rx opioid, was Start Talking consent form obtained?: Yes If opioid is for acute pain is fill amount 7 days or less?: No Was information provided regarding opioid addiction?: Yes
[2020-02-02 10:10] VITALS: BP 134/88; PULSE 99; RESP 16
== END | disposition home or self-care (01) ==
LOC: PNWHC3 12:43
PROVIDERS: ATTEND Specialist
DX: M51.16 Intervertebral disc disorders with radiculopathy, lumbar region (principal); M47.26 Other spondylosis with radiculopathy, lumbar region; M46.96 Unspecified inflammatory spondylopathy, lumbar region; F17.200 Nicotine dependence, unspecified, uncomplicated; Z79.899 Other long term (current) drug therapy; Z79.891 Long term (current) use of opiate analgesic
CPT/HCPCS: 80307; G0482; G0463; 99211

== ENCOUNTER → 2020-03-26 | Outpatient (CLI) | payer OTHER ==
[2020-03-26 14:24] VITALS: BP 137/80; PULSE 117; RESP 14
--- NOTE | 2020-03-26 14:39 | P.PAINPG ---
Subjective Progress Note Date: 03/26/20 This is a follow-up visit for this 49 year old female with a history of severe and chronic low back pain secondary to lumbar degenerative disc disease, lumbar spondylosis with facet arthropathy, currently she is complaining of low back pain . The patient currently on norco 7.5 /325 every 6 hours, , and Neurontin 400 milligrams 3 times a day. And patient came here today for follow-up visit and medication refill, during the interview I reviewed her urine drug screen and it was positive for marijuana and barbiturate, and it was negative for hydrocodone and negative for no more hydrocodone and it was negative for gabapentin,(we prescribe to the patient hydrocodone and gabapentin ) and she never admitted that she is taking marijuana previously, and she never said that she state any barbiturate, and in view that the patient had violation of the narcotic agreement, that she signed with the pain clinic, I explained to the patient that I cannot give her any new prescription from her current medication, and she will be discharged from our pain clinic, in the future if patient admitted to the hospital and we are obligated to see her as an inpatient consult but we will not be able to provide her with any outpatient care. Objective - Vital Signs Vital signs: Vital Signs Temp Pulse 117 H 03/26/20 14:07 Resp 14 03/26/20 14:07 BP 137/80 03/26/20 14:07 Pulse Ox 100 03/26/20 14:07 PQRS Measure Charge Sheet Measure #130: Documentation of Current Meds in Medical Chart: Patient's medications documented in chart Measure #226: Tobacco Use: Screen & Cessation Intervention: Pt screened for tobacco use AND intervention given Measure #111: Pneumonia Vaccination: Pneumococcal vaccine NOT administered or previously given Measure #47: Advance Care Plan: Advance care planning discussed & documented, pt chose/unable to give Measure #412: Opioid Treatment Agreement: Documented signed opioid trtmnt agreemnt min once during opioid trtmnt Measure #408: Opioid Therapy Follow-up Evaluation: Patient had NO f/u eval minimum every 3 months during opioid therapy Measure #317: Preventitive Care & Scrn High Bld Press & F/U: Normal blood pressure, f/u not required Measure #128: Body Mass Index (BMI) Screening & Follow-up: BMI documented ABOVE normal parameters - f/u documented Measure #131: Pain Assessment & Follow-up: Pain positive & plan documented, Follow-up scheduled Measure #431: Unhealthy Alcohol Use Preventative Care & Scrn: Patient not identified as an unhealthy alcohol user PQRS Narrative: Smoking Status Current every day smoker Narcotic Agreement Date Signed 05/11/19 Blood Pressure 137/80 Pain Intensity [Left Lower 7 Back] Scale Used Numeric (1 - 10) Hx Alcohol Use (MH) Yes: rare Home Medications: Ambulatory Orders Escitalopram [Lexapro] 10 mg PO DAILY 08/16/19 Cholecalciferol [Vitamin D3 (25 Mcg = 1000 Iu)] 1,000 unit PO DAILY 10/23/19 Dextroamphetamine/Amphetamine [Adderall] 30 mg PO DAILY 10/23/19 clonazePAM [KlonoPIN] 0.5 mg PO TID 10/23/19 Albuterol Inhaler (Mhu) [Ventolin Hfa Inhaler (Mhu)] 1 - 2 puff INHALATION Q6HR PRN #1 inhaler 10/25/19 Metoprolol Tartrate [Lopressor] 25 mg PO BID #60 tab 10/25/19 Gabapentin [Neurontin] 400 mg PO TID #90 cap 12/11/19 HYDROcodone/APAP 7.5-325MG [[place] 7.5-325] 1 tab PO Q8HR PRN 30 Days #90 tab 12/11/19 Tiotropium [place] [Spiriva] 1 puff INHALATION DAILY 01/15/20 Controlled Substance Measures - Controlled Substance Measures Is patient prescribed a controlled substance at discharge?: No
== END | disposition home or self-care (01) ==
LOC: PNWHC3 13:37
PROVIDERS: ATTEND Specialist
DX: M51.36 Other intervertebral disc degeneration, lumbar region (principal); M47.816 Spondylosis without myelopathy or radiculopathy, lumbar region; M46.96 Unspecified inflammatory spondylopathy, lumbar region; G89.29 Other chronic pain; Z79.891 Long term (current) use of opiate analgesic; Z79.899 Other long term (current) drug therapy
CPT/HCPCS: 99211

== ENCOUNTER 2020-10-20 11:03 | Observation (INO) | payer OTHER ==
[2020-10-20] MEDS ORDERED: NITROGLYCERIN SL TABS 0.4 MG TAB SUBLINGUAL STA (11:21)
[2020-10-20] MEDS ORDERED: ASPIRIN 81 MG PO STA (11:21)
[2020-10-20] MEDS ORDERED: SODIUM CHLORIDE 0.9% 1,000 ML IV STA ×2 (11:21)
--- NOTE | 2020-10-20 11:35 | ED ---
Chest Pain HPI - General Source: patient, RN notes reviewed, old records reviewed Mode of arrival: ambulatory Limitations: no limitations <Diann Hernandez - Last Filed: 10/20/20 12:41> <Meli Feldman - Last Filed: 10/21/20 14:52> - General Chief Complaint: Chest Pain Stated Complaint: CHEST PAIN Time Seen by Provider: 10/20/20 11:12 - History of Present Illness Initial Comments: This is a 50-year-old female presents emergency department today for concerns for onset of chest pain starting 2 hours ago. Patient reports the pain is a tightness in her chest with radiation towards her back. Patient states that she's had 2 abnormal EKGs at PCP office and was supposed to follow-up with Dr. Roy this upcoming week to be cleared for surgery. Patient states that she has not completed cardiology follow up, but came to the ER with this onset of chest pain. She states that she has no previous heart attacks or stents. She is a smoker and does report history of hypertension. (Diann Hernandez) - Related Data Home Medications Medication Instructions Recorded Confirmed Dextroamphetamine/Amphetamine 30 mg PO DAILY 10/23/19 10/20/20 [Adderall] clonazePAM [KlonoPIN] 0.5 mg PO TID 10/23/19 10/20/20 ARIPiprazole [Abilify] 2 mg PO DAILY 10/20/20 10/20/20 Atenolol [Tenormin] 50 mg PO DAILY 10/20/20 10/20/20 Dextroamphetamine/Amphetamine 20 mg PO DAILY@1300 10/20/20 10/20/20 [Adderall] Escitalopram [Lexapro] 20 mg PO DAILY 10/20/20 10/20/20 HYDROcodone/APAP 10-325MG [[place] 1 tab PO Q4HR PRN 10/20/20 10/20/20 10-325] Allergies Allergy/AdvReac Type Severity Reaction Status Date / Time ketorolac [From Toradol] Allergy Anaphylaxis Verified 10/20/20 12:50 shellfish derived Allergy Anaphylaxis Verified 10/20/20 12:50 tramadol [From Ultram] Allergy Anaphylaxis Verified 10/20/20 12:50 ibuprofen AdvReac HIVES Verified 10/20/20 12:50 Review of Systems ROS Other: All systems not noted in ROS Statement are negative. <DavidDiann - Last Filed: 10/20/20 12:41> ROS Other: All systems not noted in ROS Statement are negative. <Meli Feldman Lanny - Last Filed: 10/21/20 14:52> ROS Statement: Those systems with pertinent positive or pertinent negative responses have been documented in the HPI. EKG Findings - EKG Comments: EKG Findings:: EKG performed at 1118 shows normal sinus rhythm left anterior fascicular block. Inferior infarct age undetermined. Abnormal EKG. Ventricular rate of 90 bpm. Pulse 152 ms. QS duration is 80 ms. QT QTc is 348/425 ms. <DaksharinaDiann - Last Filed: 10/20/20 12:41> Past Medical History Past Medical History: COPD, GERD/Reflux, Hypertension, Pneumonia Additional Past Medical History / Comment(s): chronic back pain, lumbar degenerative disc disease, insomnia, hx shingles, hiatal hernia, kidney stones. 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, migraines,; NECK PAIN , Last Myocardial Infarction Date:: 08/27/2016 History of Any Multi-Drug Resistant Organisms: MRSA Date of last positivie culture/infection: 09/22/09 MDRO Source:: neck Past Surgical History: Appendectomy, Back Surgery, Section, Cholecystectomy, Orthopedic Surgery Additional Past Surgical History / Comment(s): Cervical spine fusion with insertion of a metal plate, EGD, colonoscopy, radiofrequency ablation, Past Anesthesia/Blood Transfusion Reactions: No Reported Reaction Additional Past Anesthesia/Blood Transfusion Reaction / Comment(s): CLAUSTROPHOBIA Past Psychological History: ADD/ADHD, Anxiety, Panic Disorder Smoking Status: Current every day smoker Past Alcohol Use History: None Reported Past Drug Use History: None Reported - Past Family History Father Family Medical History: Cancer Additional Family Medical History / Comment(s): Father at age 48 from lung cancer. Mother Family Medical History: Congestive Heart Failure (CHF), CVA/TIA Additional Family Medical History / Comment(s): Mother is alive at age 68. She has suffered from a CVA and has chronic back problems. Patient has 2 brothers and 4 sisters with no major medical problems. <DavidDiann - Last Filed: 10/20/20 12:41> General Exam Limitations: no limitations General appearance: alert, in no apparent distress Head exam: Present: atraumatic Eye exam: Present: normal appearance, PERRL, EOMI. Absent: scleral icterus, conjunctival injection, periorbital swelling ENT exam: Present: normal exam, mucous membranes moist Neck exam: Present: normal inspection. Absent: tenderness, meningismus, lymphadenopathy Respiratory exam: Present: normal lung sounds bilaterally. Absent: respiratory distress, wheezes, rales, rhonchi, stridor Cardiovascular Exam: Present: regular rate, normal rhythm, normal heart sounds. Absent: systolic murmur, diastolic murmur, rubs, gallop, clicks GI/Abdominal exam: Present: soft, normal bowel sounds. Absent: distended, tenderness, guarding, rebound, rigid Extremities exam: Present: normal inspection, full ROM, normal capillary refill. Absent: tenderness, pedal edema, joint swelling, calf tenderness Back exam: Present: normal inspection Neurological exam: Present: alert, oriented X3, CN II-XII intact Psychiatric exam: Present: normal affect, normal mood Skin exam: Present: warm, dry, intact, normal color. Absent: rash <Diann Hernandez - Last Filed: 10/20/20 12:41> - General Exam Comments Initial Comments: Patient's-year-old female. Alert and oriented. No acute distress. (Diann Hernandez) Course Vital Signs 10/20/20 10/20/20 10/20/20 11:06 11:30 16:04 Temperature 97.9 F Pulse Rate 92 89 75 Respiratory 18 18 18 Rate Blood Pressure 121/93 121/99 132/84 O2 Sat by Pulse 100 98 96 Oximetry 10/20/20 10/20/20 10/21/20 18:22 20:00 01:00 Temperature Pulse Rate 88 Respiratory 18 18 4 L Rate Blood Pressure 132/82 O2 Sat by Pulse 96 Oximetry 10/21/20 10/21/20 10/21/20 05:04 08:44 10:00 Temperature 98 F Pulse Rate 76 79 Respiratory 15 18 18 Rate Blood Pressure 132/80 138/92 O2 Sat by Pulse 96 98 Oximetry 10/21/20 10/21/20 10/21/20 11:00 12:00 13:00 Temperature 98.2 F Pulse Rate 92 76 Respiratory 18 18 18 Rate Blood Pressure 136/86 O2 Sat by Pulse 100 98 Oximetry Chest Pain MDM <Diann Hernandez - Last Filed: 10/20/20 12:41> <Meli Feldman - Last Filed: 10/21/20 14:52> - [facility] This is a 50-year-old female who presents emergency department today with chest pain this morning. She reports a tightness in chest rating towards her back. Patient EKG was reviewed with no acute ST changes. She does report she was told she had abnormal EKGs by her PCP this week and was started no cardiology follow- up soon. She has has risk factors including family history of heart disease, as well as smoking and hypertension. Patient states was given aspirin and nitro still continues complaints of chest discomfort. She was later anxious and was given Ativan, still complaining of chest pain. The Patient case discussed Dr. Feldman. And Patient will be admitted for cardiac observation. (Diann Hernandez) I was available for consultation in the emergency department. The history and physical exam were done by the midlevel provider. I was consulted for this patients care. I reviewed the case with the midlevel provider and based on their presentation of the patient, I agree with the assessment, medical decision making and plan of care as documented. Chart was dictated using mobli dictation software. Attempts were made to correct any dictation errors however some typographical errors may persist. Patient was seen during a national state of emergency due to the Covid-19 pandemic. (Meli Feldman) Disposition Is patient prescribed a controlled substance at d/c from ED?: No Time of Disposition: 12:44 <Diann Hernandez - Last Filed: 10/20/20 12:41> <Meli Feldman - Last Filed: 10/21/20 14:52> Clinical Impression: Chest pain Disposition: ADMITTED IP TO THIS HOSP Condition: Stable
[2020-10-20] MEDS ORDERED: LORazepam 1 MG TAB PO STA (11:46)
[2020-10-20 11:51] LABS: Basophils # (A) 0.1 k/uL (0-0.2); Basophils % (A) 0 %; Eosinophils # (A) 0.3 k/uL (0-0.7); Eosinophils % (A) 2 %; HCT 47.1 % (34.0-46.0); HGB 16.1 gm/dL (11.4-16.0); Lymphocytes # (A) 2.1 k/uL (1.0-4.8); Lymphocytes % (A) 16 %; MCHC 34.1 g/dL (31.0-37.0); MCV 91.1 fL (80.0-100.0); Mean Platelet Volume 7.2; Monocytes % (A) 8 %; Neutrophils # (A) 9.7 k/uL (1.3-7.7); Neutrophils % (A) 73 %; Platelet Count 461 k/uL (150-450); RBC 5.18 m/uL (3.80-5.40); RDW 13.6 % (11.5-15.5); WBC 13.3 k/uL (3.8-10.6)
--- NOTE | 2020-10-20 11:51 | XR ---
EXAMINATION TYPE: XR chest 2V DATE OF EXAM: 10/20/2020 COMPARISON: 10/25/2019 HISTORY: Shortness of breath TECHNIQUE: Frontal and lateral views of the chest are obtained. FINDINGS: Scattered senescent parenchymal changes noted. Hyperinflation compatible with COPD. No evidence for infiltrate. No evidence for atelectasis. Heart size is stable. Mediastinal structures are stable and grossly unremarkable. No evidence for hilar prominence. Degenerative changes dorsal spine. IMPRESSION: 1. No evidence for acute pulmonary disease.
[2020-10-20 11:55] LABS: ALT 19 U/L (4-34); AST 22 U/L (14-36); African American GFR (CKD) >90 (>60 ml/min/1.73 sqM); Albumin 4.9 g/dL (3.5-5.0); Alkaline Phosphatase 104 U/L (38-126); Anion Gap 14 mmol/L; Blood Urea Nitrogen 12 mg/dL (7-17); Calcium 10.5 mg/dL (8.4-10.2); Carbon Dioxide 17 mmol/L (22-30); Chloride 106 mmol/L (98-107); Glucose 112 mg/dL (74-99); Magnesium 1.9 mg/dL (1.6-2.3); Non-African American GFR(CKD) 88 (>60 ml/min/1.73 sqM); Potassium 4.3 mmol/L (3.5-5.1); Sodium 137 mmol/L (137-145); Total Bilirubin 0.5 mg/dL (0.2-1.3); Total Protein 8.5 g/dL (6.3-8.2)
[2020-10-20 12:04] LABS: D-Dimer 0.3 mg/L FEU (<0.60); Partial Thromboplastin Time 24.5 sec (22.0-30.0); Prothrombin Time 10.4 sec (9.0-12.0)
[2020-10-20] MEDS ORDERED: HYDROmorphone 0.5 MG/0.5 ML SYRINGE IVP STA (12:42)
[2020-10-20] MEDS ORDERED: ONDANSETRON 4 MG/2 ML VIAL IVP PRN (12:44)
[2020-10-20] MEDS ORDERED: NALOXONE 0.4 MG/ML 1 ML VIAL IV PRN ×2 (12:44→16:16)
[2020-10-20] MEDS: SODIUM CHLORIDE 0.9% 1,000 ML IV SCH (12:58)
[2020-10-20] MEDS: MORPHINE SULFATE 4 MG/ML SYRINGE IV PRN ×2 (16:03→21:08)
--- NOTE | 2020-10-20 16:15 | P.HPIM ---
History of Present Illness H&P Date: 10/20/20 Chief Complaint: chest pain 50-year-old female presents emergency department today for concerns for onset of chest pain for the last 5 hours. Patient reports the pain feels like a tightness in her chest, located on the left side, with radiation towards her back and left arm. Patient states that she's had 2 abnormal EKGs at PCP office and was supposed to follow-up with Dr. Roy this upcoming week to be cleared for surgery. She is scheduled to have 2 surgeries one on the right shoulder and the other on her neck. States that she has associated dizziness, nausea and sob. No previous heart attacks or stents. She is a smoker and does report history of hypertension. Evaluation in the ER was unrevealing, trops and EKG ok. She will be admitted to the hospital for further evaluation by cardiology. Review of Systems Complete review of system performed. Pertinent positives per HPI otherwise negative. Past Medical History Past Medical History: COPD, GERD/Reflux, Hypertension, Pneumonia Additional Past Medical History / Comment(s): chronic back pain, lumbar degenerative disc disease, insomnia, hx shingles, hiatal hernia, kidney stones. 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, migraines,; NECK PAIN , Last Myocardial Infarction Date:: 08/27/2016 History of Any Multi-Drug Resistant Organisms: MRSA Date of last positivie culture/infection: 09/22/09 MDRO Source:: neck Past Surgical History: Appendectomy, Back Surgery, Section, Cholecystectomy, Orthopedic Surgery Additional Past Surgical History / Comment(s): Cervical spine fusion with insertion of a metal plate, EGD, colonoscopy, radiofrequency ablation, Past Anesthesia/Blood Transfusion Reactions: No Reported Reaction Additional Past Anesthesia/Blood Transfusion Reaction / Comment(s): CLAUSTROPHOBIA Past Psychological History: ADD/ADHD, Anxiety, Panic Disorder Smoking Status: Current every day smoker Past Alcohol Use History: None Reported Past Drug Use History: None Reported - Past Family History Father Family Medical History: Cancer Additional Family Medical History / Comment(s): Father at age 48 from lung cancer. Mother Family Medical History: Congestive Heart Failure (CHF), CVA/TIA Additional Family Medical History / Comment(s): Mother is alive at age 68. She has suffered from a CVA and has chronic back problems. Patient has 2 brothers and 4 sisters with no major medical problems. Medications and Allergies Home Medications Medication Instructions Recorded Confirmed Type Dextroamphetamine/Amphetamine 30 mg PO DAILY 10/23/19 10/20/20 History [Adderall] clonazePAM [KlonoPIN] 0.5 mg PO TID 10/23/19 10/20/20 History ARIPiprazole [Abilify] 2 mg PO DAILY 10/20/20 10/20/20 History Atenolol [Tenormin] 50 mg PO DAILY 10/20/20 10/20/20 History Dextroamphetamine/Amphetamine 20 mg PO DAILY@1300 10/20/20 10/20/20 History [Adderall] Escitalopram [Lexapro] 20 mg PO DAILY 10/20/20 10/20/20 History HYDROcodone/APAP 10-325MG [[place] 1 tab PO Q4HR PRN 10/20/20 10/20/20 History 10-325] Allergies Allergy/AdvReac Type Severity Reaction Status Date / Time ketorolac [From Toradol] Allergy Anaphylaxis Verified 10/20/20 12:50 shellfish derived Allergy Anaphylaxis Verified 10/20/20 12:50 tramadol [From Ultram] Allergy Anaphylaxis Verified 10/20/20 12:50 ibuprofen AdvReac HIVES Verified 10/20/20 12:50 Physical Exam Vitals: Vital Signs Temp Pulse Resp BP Pulse Ox 10/20/20 11:30 89 18 121/99 98 10/20/20 11:06 97.9 F 92 18 121/93 100 Intake and Output 10/20/20 10/20/20 10/20/20 06:59 14:59 22:59 Other: Weight 64.41 kg Constitutional: No acute distress, conversant, pleasant Eyes:Anicteric sclerae, moist conjunctiva, no lid-lag, PERRLA, ENMT: Oropharynx clear, no erythema, exudates Neck: Supple, FROM, no masses, or JVD, No carotid bruits, No thyromegaly Lungs: Clear to auscultation, Clear to percussion, Normal respiratory effort, no accessory muscle use Cardiovascular: Heart regular in rate and rhythm, No murmurs, gallops, or rubs, No peripheral edema Abdominal: Soft, Nontender, no guarding, rebound or rigidity, Normoactive bowel sounds, No hepatomegaly, No splenomegaly, No palpable mass Skin: Normal temperature, tone, texture, turgor, no induration, No subcutaneous nodules, No rash, lesions, No ulcers Extremities: No digital cyanosis, No clubbing, Pedal pulses intact and symmetrical, Radial pulses intact and symmetrical, No calf tenderness Psychiatric: Alert and oriented to person, place and time, appropriate affect, intact judgement Neuro: Muscles Strength 5/5 in all 4 extremities, Sensation to light touch grossly present throughout, Cranial nerves II-XII grossly intact, no focal sensory deficits Results CBC & Chem 7: 10/20/20 11:32 10/20/20 11:32 Labs: Abnormal Lab Results - Last 24 Hours (Table) 10/20/20 10/20/20 Range/Units 11:32 11:32 WBC 13.3 H (3.8-10.6) k/uL Hgb 16.1 H (11.4-16.0) gm/dL Hct 47.1 H (34.0-46.0) % Plt Count 461 H (150-450) k/uL Neutrophils # 9.7 H (1.3-7.7) k/uL Carbon Dioxide 17 L (22-30) mmol/L Glucose 112 H (74-99) mg/dL Calcium 10.5 H (8.4-10.2) mg/dL Total Protein 8.5 H (6.3-8.2) g/dL Assessment and Plan Plan: Chest pain Admit on tele Cycle trops Consult cardio Chronic neck and shoulder pain, s/p remote neck surgery with hardware in place. Scheduled for outpatient surgeries for each. COPD GERD/Reflux, Hypertension Chronic back pain All stable resume meds Admitted to observation
[2020-10-21] MEDS: MORPHINE SULFATE 4 MG/ML SYRINGE IV PRN ×3 (00:46→08:33)
[2020-10-21 05:59] LABS: Basophils # (A) 0.1 k/uL (0-0.2); Basophils % (A) 1 %; Eosinophils # (A) 0.2 k/uL (0-0.7); Eosinophils % (A) 3 %; HCT 43.1 % (34.0-46.0); Lymphocytes # (A) 2.5 k/uL (1.0-4.8); Lymphocytes % (A) 30 %; MCH 30.3 pg (25.0-35.0); MCHC 32.5 g/dL (31.0-37.0); MCV 93.2 fL (80.0-100.0); Monocytes # (A) 0.8 k/uL (0-1.0); Monocytes % (A) 9 %; Neutrophils # (A) 4.7 k/uL (1.3-7.7); Neutrophils % (A) 56 %; Platelet Count 348 k/uL (150-450); RBC 4.63 m/uL (3.80-5.40); RDW 14.1 % (11.5-15.5); WBC 8.3 k/uL (3.8-10.6)
[2020-10-21 06:18] LABS: African American GFR (CKD) >90 (>60 ml/min/1.73 sqM); Anion Gap 9 mmol/L; Blood Urea Nitrogen 14 mg/dL (7-17); Calcium 9.4 mg/dL (8.4-10.2); Carbon Dioxide 20 mmol/L (22-30); Chloride 107 mmol/L (98-107); Glucose 98 mg/dL (74-99); Non-African American GFR(CKD) 85 (>60 ml/min/1.73 sqM); Potassium 3.8 mmol/L (3.5-5.1); Sodium 136 mmol/L (137-145)
[2020-10-21] MEDS: PANTOPRAZOLE 40 MG/10 ML VIAL IV SCH (08:32)
[2020-10-21] MEDS ORDERED: DOBUTamine DRIP for NUC MED 500 MG in DEXTROSE/WATER 1 250ML.BAG IV PRN (08:36)
[2020-10-21] MEDS ORDERED: HYDROcodone/APAP 10-325MG 1 EACH TAB PO PRN (10:48)
[2020-10-21] MEDS ORDERED: atenoloL 50 MG TAB PO STA (10:49)
[2020-10-21] MEDS ORDERED: ALPRAZolam 0.5 MG TAB PO PRN (12:29)
[2020-10-21] MEDS ORDERED: ALPRAZolam 0.25 MG TAB PO PRN (12:29)
--- NOTE | 2020-10-21 13:29 | CT ---
EXAMINATION TYPE: CT angio chest DATE OF EXAM: 10/21/2020 COMPARISON: None HISTORY: Chest pains, evaluate for aortic pathology and PE CT DLP: 292 mGycm CONTRAST: CT chest with contrast and 3D reconstruction with MIP imaging is performed with IV Contrast, patient injected with 100 mL of Isovue 370. Contrast-enhanced CT of the chest was performed through the course of the pulmonary arteries with susanna g and mediastinal window settings submitted. 3D reconstruction with MIP imaging was also performed. PULMONARY ARTERIES: The pulmonary arteries and their major tributaries are patent. I do not see denise dence for sizable filling defect to suggest pulmonary embolic process. LUNGS: The lungs are clear and free of infiltrate. No evidence for atelectasis. No pulmonary nodule or mass is detected. No pleural effusion. MEDIASTINUM: Thoracic aorta is of normal caliber. There is no evidence for aneurysm. Mild atheromato us change noted. The heart is not enlarged. No evidence for mediastinal mass. No mediastinal lymph nodes greater than 1cm. HILAR STRUCTURES: No evidence for mass. No hilar lymph nodes greater than 1 cm. UPPER ABDOMEN: No significant abnormality is seen. IMPRESSION: 1. No evidence for Pulmonary embolism at this time.
[2020-10-21] MEDS: SODIUM CHLORIDE 0.9% 1,000 ML IV SCH (13:31)
[2020-10-21] MEDS: clonazePAM 0.5 MG TAB PO SCH ×3 (13:31→20:45)
[2020-10-21] MEDS: ESCITALOPRAM 20 MG TAB PO SCH (13:31)
--- NOTE | 2020-10-21 14:16 | P.CRDCN ---
History of Present Illness History of present illness: Mrs. Winston is a pleasant 50-year-old female past medical history significant for hypertension, COPD, GERD, nicotine dependence, heroin abuse. She does not follow in the office with a heel shaper. We are being consulted for chest pain. Her chest pain started yesterday at 8am, it is midsternal, radiating to her left anterior chest, left shoulder and left upper back. Chest pain is exertional, it increases when sitting up and walking. Coughing and deep breathing makes it worse. She endorses associated symptoms of diaphoresis and nausea. She describes the pain as 10/10 sharp and a pressure. She took tylenol and aspirin which did not help the pain. When brought to the hospital Nitroglyerin did not relieve pain. Morphine did help relieve her pain. She states she has never had this pain before before. She denies history diabetes, GA, stroke. Of note, patient states she does have a plan for right shoulder replacement surgery on November 01 and was going to go for cardiac clearance appointment this week in the office. She does state she feels a little anxious for upcomping surgeries. Patient is s current everyday smoker - states she smokes 1/2 cigarrette a day. She denies alcohol use. She denies family history of heart disease. Laboratory data reviewed troponin negative 3, BNP 51, D-dimer 0.30, WBC 8.3, Hgb 14, Platelets 348, sodium 136, potassium 3.8, creatinine 0.80. Covid-19 negative DIAGNOSTICS EKG reveals sinus mechanism with T-wave inversion in V2, no significant St-T wave abnormalities, similar to prior EKG in 2019. Most recent Echo 08/2017- EF 55-60%, trace TR Dobutamine Stress Echo 08/2017- no evidence of stress induced ischemia Current cardiac medications include atenolol 50mg daily. REVIEW OF SYSTEMS At the time of my exam: CONSTITUTIONAL: Denies fever or chills. CARDIOVASCULAR: +chest pain. Denies shortness of breath, orthopnea PND or palpitations. RESPIRATORY: Denies cough. GASTROINTESTINAL: Denies abdominal pain, diarrhea, constipation, nausea or vomiting. MUSCULOSKELETAL: Denies NEUROLOGIC: Denies numbness, tingling, headacbe or weakness. ENDOCRINE: Denies fatigue, weight change, polydipsia or polyurina. GENITOURINARY: Denies burning, hematuria or urgency with micturation. HEMATOLOGIC: Denies history of anemia or bleeding. PHYSICAL EXAMINATION CONSTITUTIONAL: No apparent distress. HEENT: Head is normocephalic. Pupils are equal, round. Sclerae anicteric. Mucous membranes of the mouth are moist. No JVD. No carotid bruit. CHEST EXAMINATION: Lungs are clear to auscultation. No chest wall tenderness is noted on palpation or with deep breathing. HEART EXAMINATION: Regular rate and rhythm. S1, S2 heard. Systolic murmur noted , gallops or rub. ABDOMEN: Soft, nontender. Positive bowel sounds. EXTREMITIES: 2+ peripheral pulses, no lower extremity edema and no calf tenderness. NEUROLOGIC EXAMINATION: Patient is awake, alert and oriented x3. ASSESSMENT -Chest pain, atypical acute coronary syndrome has been ruled out -Hypertension -COPD -Nicotine Dependence PLAN: -Will obtain CT angio of the chest to evaluate for pulmonary embolism and aortic pathology -Will obtain 2D echo -If no acute findings on CT angio, plan for cardiac catheterization with Dr. Roy tomorrow Nurse Practitioner note has been reviewed, I agree with a documented findings and plan of care. Patient was seen and examined. Past Medical History Past Medical History: COPD, GERD/Reflux, Hypertension, Pneumonia Additional Past Medical History / Comment(s): chronic back pain, lumbar degenerative disc disease, insomnia, hx shingles, hiatal hernia, kidney stones. 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, migraines,; NECK PAIN , Last Myocardial Infarction Date:: 08/27/2016 History of Any Multi-Drug Resistant Organisms: MRSA Date of last positivie culture/infection: 09/22/09 MDRO Source:: neck Past Surgical History: Appendectomy, Back Surgery, Section, Cholecystectomy, Orthopedic Surgery Additional Past Surgical History / Comment(s): Cervical spine fusion with insertion of a metal plate, EGD, colonoscopy, radiofrequency ablation, Past Anesthesia/Blood Transfusion Reactions: No Reported Reaction Additional Past Anesthesia/Blood Transfusion Reaction / Comment(s): CLAUSTROPHOBIA Past Psychological History: ADD/ADHD, Anxiety, Panic Disorder Smoking Status: Current every day smoker Past Alcohol Use History: None Reported Past Drug Use History: None Reported - Past Family History Father Family Medical History: Cancer Additional Family Medical History / Comment(s): Father at age 48 from lung cancer. Mother Family Medical History: Congestive Heart Failure (CHF), CVA/TIA Additional Family Medical History / Comment(s): Mother is alive at age 68. She has suffered from a CVA and has chronic back problems. Patient has 2 brothers and 4 sisters with no major medical problems. Medications and Allergies Home Medications Medication Instructions Recorded Confirmed Type Dextroamphetamine/Amphetamine 30 mg PO DAILY 10/23/19 10/20/20 History [Adderall] clonazePAM [KlonoPIN] 0.5 mg PO TID 10/23/19 10/20/20 History ARIPiprazole [Abilify] 2 mg PO DAILY 10/20/20 10/20/20 History Atenolol [Tenormin] 50 mg PO DAILY 10/20/20 10/20/20 History Dextroamphetamine/Amphetamine 20 mg PO DAILY@1300 10/20/20 10/20/20 History [Adderall] Escitalopram [Lexapro] 20 mg PO DAILY 10/20/20 10/20/20 History HYDROcodone/APAP 10-325MG [[place] 1 tab PO Q4HR PRN 10/20/20 10/20/20 History 10-325] Allergies Allergy/AdvReac Type Severity Reaction Status Date / Time ketorolac [From Toradol] Allergy Anaphylaxis Verified 10/20/20 12:50 shellfish derived Allergy Anaphylaxis Verified 10/20/20 12:50 tramadol [From Ultram] Allergy Anaphylaxis Verified 10/20/20 12:50 ibuprofen AdvReac HIVES Verified 10/20/20 12:50 Physical Exam Vitals: Vital Signs Temp Pulse Resp BP Pulse Ox 10/20/20 16:04 75 18 132/84 96 10/20/20 11:30 89 18 121/99 98 10/20/20 11:06 97.9 F 92 18 121/93 100 Intake and Output 10/20/20 10/20/20 10/20/20 06:59 14:59 22:59 Other: Weight 64.41 kg Results 10/21/20 05:12 10/21/20 05:12 Cardiac Enzymes 10/20/20 10/20/20 10/20/20 Range/Units 11:32 11:32 14:39 AST 22 (14-36) U/L Troponin I <0.012 <0.012 (0.000-0.034) ng/mL Coagulation 10/20/20 Range/Units 11:32 PT 10.4 (9.0-12.0) sec APTT 24.5 (22.0-30.0) sec CBC 10/20/20 Range/Units 11:32 WBC 13.3 H (3.8-10.6) k/uL RBC 5.18 (3.80-5.40) m/uL Hgb 16.1 H (11.4-16.0) gm/dL Hct 47.1 H (34.0-46.0) % Plt Count 461 H (150-450) k/uL Comprehensive Metabolic Panel 10/20/20 Range/Units 11:32 Sodium 137 (137-145) mmol/L Potassium 4.3 (3.5-5.1) mmol/L Chloride 106 (98-107) mmol/L Carbon Dioxide 17 L (22-30) mmol/L BUN 12 (7-17) mg/dL Creatinine 0.78 (0.52-1.04) mg/dL Glucose 112 H (74-99) mg/dL Calcium 10.5 H (8.4-10.2) mg/dL AST 22 (14-36) U/L ALT 19 (4-34) U/L Alkaline Phosphatase 104 (38-126) U/L Total Protein 8.5 H (6.3-8.2) g/dL Albumin 4.9 (3.5-5.0) g/dL Current Medications Generic Name Dose Route Start Last Admin Trade Name Freq PRN Reason Stop Dose Admin Sodium Chloride 1,000 mls @ 100 mls/hr 10/20/20 11:21 10/20/20 11:41 Saline 0.9% IV 10/20/20 21:20 100 mls/hr .Q10H STA Administration Sodium Chloride 1,000 mls @ 20 mls/hr 10/20/20 12:45 10/20/20 12:58 Saline 0.9% IV Not Given .Q24H YUSRA Morphine Sulfate 4 mg 10/20/20 12:44 10/20/20 16:03 Morphine Sulfate 4 Mg/Ml Syringe IV 4 mg Q4HR PRN Administration Severe Pain Naloxone HCl 0.2 mg 10/20/20 12:44 Naloxone 0.4 Mg/Ml 1 Ml Vial IV Q2M PRN Opioid Reversal Ondansetron HCl 4 mg 10/20/20 12:44 Ondansetron 4 Mg/2 Ml Vial IVP Q8HR PRN Nausea And Vomiting Pantoprazole Sodium 40 mg 10/21/20 09:00 Pantoprazole 40 Mg/10 Ml Vial IV DAILY YUSRA Intake and Output 10/20/20 10/20/20 10/20/20 06:59 14:59 22:59 Other: Weight 64.41 kg Patient Weight 10/21/20 06:59 Weight 64.41 kg 10/20/20 11:32 10/20/20 11:32
--- NOTE | 2020-10-21 16:52 | P.PN ---
Subjective Progress Note Date: 10/21/20 Principal diagnosis: Chest pain Patient continues to have constant lower sternal chest pain. It is worse with deep breathing. Patient states that the [place] does not help it. Patient is asking to had the morphine back. Objective - Vital Signs Vital signs: Vital Signs Temp 98.2 F 10/21/20 12:00 Pulse 76 10/21/20 13:00 Resp 18 10/21/20 13:00 BP 136/86 10/21/20 12:00 Pulse Ox 98 10/21/20 13:00 Intake & Output 10/20/20 10/21/20 10/21/20 18:59 06:59 18:59 Weight 64.41 kg Other: # Voids 2 - Exam Constitutional: No acute distress, conversant, pleasant Eyes:Anicteric sclerae, moist conjunctiva, no lid-lag, PERRLA, ENMT: Oropharynx clear, no erythema, exudates Neck: Supple, FROM, no masses, or JVD, No carotid bruits, No thyromegaly Lungs: Clear to auscultation, Clear to percussion, Normal respiratory effort, no accessory muscle use Cardiovascular: Heart regular in rate and rhythm, No murmurs, gallops, or rubs, No peripheral edema Abdominal: Soft, Nontender, no guarding, rebound or rigidity, Normoactive bowel sounds, No hepatomegaly, No splenomegaly, No palpable mass Skin: Normal temperature, tone, texture, turgor, no induration, No subcutaneous nodules, No rash, lesions, No ulcers Extremities: No digital cyanosis, No clubbing, Pedal pulses intact and symmetrical, Radial pulses intact and symmetrical, No calf tenderness Psychiatric: Alert and oriented to person, place and time, appropriate affect, intact judgement Neuro: Muscles Strength 5/5 in all 4 extremities, Sensation to light touch grossly present throughout, Cranial nerves II-XII grossly intact, no focal sensory deficits - Labs CBC & Chem 7: 10/21/20 05:12 10/21/20 05:12 Labs: Abnormal Lab Results - Last 24 Hours (Table) 10/21/20 Range/Units 05:12 Sodium 136 L (137-145) mmol/L Carbon Dioxide 20 L (22-30) mmol/L Assessment and Plan Plan: Chest pain CT angiogram of the chest negative for PE Troponin negative, no ACS Cardio planning heart catheterization tomorrow Morphine when necessary for pain Chronic neck and shoulder pain, s/p remote neck surgery with hardware in place. Scheduled for outpatient surgeries for each. COPD GERD/Reflux, Hypertension Chronic back pain All stable resume meds
[2020-10-21] MEDS: MORPHINE SULFATE 2 MG/ML SYRINGE IVP PRN ×2 (17:34→23:21)
[2020-10-21] MEDS: ARIPiprazole 2 MG TAB PO SCH (21:33)
[2020-10-22] MEDS ORDERED: SODIUM CHLORIDE 0.9% 1,000 ML in EMPTY BAG 1 BAG IV ONE
[2020-10-22] MEDS: MORPHINE SULFATE 2 MG/ML SYRINGE IVP PRN ×3 (04:55→17:13)
[2020-10-22] MEDS ORDERED: ASPIRIN 325 MG TAB PO ONE (06:00)
[2020-10-22] MEDS ORDERED: ATORVASTATIN 80 MG TAB PO ONE (06:00)
[2020-10-22] MEDS ORDERED: HEPARIN SODIUM,PORCINE 2,500 UNIT in SODIUM CHLORIDE 0.9% 250 ML IRRIGATION PRN (07:00)
[2020-10-22] MEDS ORDERED: HEPARIN SODIUM,PORCINE 10,000 UNIT in SODIUM CHLORIDE 0.9% 1,000 ML IRRIGATION PRN (07:00)
[2020-10-22] MEDS ORDERED: VERAPAMIL 2.5 MG/ML 2 ML AMP ONE (09:02)
[2020-10-22] MEDS ORDERED: LIDOCAINE 1% INJ 10MG/ML (20 ML MDV) ONE (09:02)
[2020-10-22] MEDS ORDERED: IV FLUID CONTINUATION 1,000 ML IV ONE (09:07)
[2020-10-22] MEDS ORDERED: MIDAZOLAM 2 MG/2 ML VIAL IV ONE (09:25)
[2020-10-22] MEDS ORDERED: LIDOCAINE 1% INJ 10MG/ML (20 ML MDV) SQ ONE (09:27)
[2020-10-22] MEDS ORDERED: VERAPAMIL SYRINGE (5 MG/10 ML) INTRAARTER ONE ×2 (09:29→09:47)
[2020-10-22] MEDS ORDERED: HEPARIN SODIUM 1,000 UN/ML (10ML VL) IV ONE (09:30)
[2020-10-22] MEDS ORDERED: fentaNYL (PF) 50 MCG/ML 2 ML AMP ONE (09:35)
[2020-10-22] MEDS ORDERED: fentaNYL (PF) 50 MCG/ML 2 ML AMP IV ONE (09:36)
[2020-10-22] MEDS ORDERED: IOPAMIDOL-370 100ML BTL INJ ONE (09:45)
[2020-10-22] MEDS ORDERED: SODIUM CHLORIDE 0.9% 1,000 ML IV SCH (10:15)
[2020-10-22] MEDS: ESCITALOPRAM 20 MG TAB PO SCH (10:25)
[2020-10-22] MEDS: ARIPiprazole 2 MG TAB PO SCH (10:25)
[2020-10-22] MEDS: PANTOPRAZOLE 40 MG/10 ML VIAL IV SCH (10:25)
[2020-10-22] MEDS: clonazePAM 0.5 MG TAB PO SCH ×2 (10:25→15:21)
[2020-10-22 10:31] VITALS: RESP 18
--- NOTE | 2020-10-22 10:42 | CC ---
CARDIAC CATHETERIZATION REPORT DATE OF SERVICE: 10/22/2020 PROCEDURE: Left heart catheterization and coronary angiography. PERFORMED BY: Dr. Aly Roy. Moderate conscious sedation time was 24 minutes. Patient was administered Versed. Oxygen saturation, hemodynamics and EKG were monitored closely. CLINICAL INFORMATION: Mrs. Isabell Winston is a 50-year-old lady with a history of smoking, hypertension, and multiple pains including arthritic pains for which she seeks Drums usually. She came into the hospital with chest pain, had unremarkable troponin. The pain was persistent, midscapular, radiating from the chest to the midscapular area. CT angio did not reveal any aortic pathology or pulmonary embolism. Troponins were negative. Because of ongoing pain, she was advised cardiac cath after due discussion. She is also going for shoulder surgery and was seeking preop evaluation as well and was scheduled to see me in the office. PROCEDURE NOTE: Under local anesthesia and strict aseptic precautions, a 6-Thai introducer was placed in the right radial artery. Using JR4 and JL3.5 catheters, I performed coronary angiography and the same right catheter was used to check LV pressures, but LV gram was not performed. The sheath was taken out and TR band applied as per protocol with saturation of the fingers of the right hand of 97%. CARDIAC CATHETERIZATION FINDINGS: The left ventricular end-diastolic pressure was 10 mmHg without any gradient across the aortic valve. CORONARY ANGIOGRAPHY FINDINGS: RIGHT CORONARY ARTERY: Dominant vessel, has a mid lesion of about a 35%, which seems to improve after giving some nitroglycerin. In the MARRERO caudal projection, the lesion is well exposed and is about 35%, but no other areas of significant disease is noted. Distally, the vessel bifurcates into PDA and PLV, both of which supply a sizable amount of myocardium. The RCA therefore is a dominant, has a mid lesion of 35%. LEFT MAIN CORONARY ARTERY: Short patent vessel, free of significant disease. Bifurcates into LAD and circumflex. LEFT ANTERIOR DESCENDING CORONARY ARTERY: Good caliber vessel extends along the anterior wall, gives off septal and diagonal branches. After the origin of a good- sized diagonal branch, which is disease-free. There is a 35% lesion in the mid LAD. Then the caliber improves and runs all the way to the apex and curves over the apex to supply the inferoapical portion of left ventricle. LAD therefore is a disease-free vessel with a 35% narrowing in the midportion after a diagonal branch which is also free of significant disease. LEFT POSTERIOR CIRCUMFLEX CORONARY ARTERY: Nondominant vessel, gives off 2 small obtuse marginal proximally and there is a good-sized obtuse marginal that comes off which has a 40% to 45% lesion at the ostium as it comes off from the circumflex. The mid circumflex just above the origin of this obtuse marginal has about a 45% narrowing. Mid circumflex nondominant has a 45% mid lesion and the first OM has a 45% lesions and continuation of circumflex disease free and supplies a good area of myocardium. LEFT VENTRICULOGRAM: Left ventriculogram was not performed. FINAL IMPRESSION: This patient has normal filling pressures. No gradient across the aortic valve. Right dominant system with a 35% mid RCA disease, 45% mid circumflex disease and 45% stenosis of a good-sized third obtuse marginal branch of circumflex. LAD has a 35% mid lesion. RECOMMENDATION: Patient has noncritical but moderate disease and there is an element of spasm as well with the RCA improving on giving intracoronary nitroglycerin. I am recommending aggressive medical therapy with risk factor modification. I will initiate her on Lipitor 80 mg daily, metoprolol tartrate 25 mg b.i.d. and aspirin 81 mg daily. She will be advised regarding smoking cessation and I am providing her with nicotine patch. Importance of risk factor modification issues were stressed with the patient. She can be discharged either later today or tomorrow. MMODL / IJN: [id number] /
--- NOTE | 2020-10-22 10:54 | ECHOF ---
Referral Reason:chest pain, shortness of breath MEASUREMENTS -------- HEIGHT: 152.4 cm WEIGHT: 64.4 kg BP: RVIDd: 2.8 cm (< 3.3) IVSd: 1.2 cm (0.6 - 1.1) LVIDd: 4.0 cm (3.9 - 5.3) LVPWd: 1.2 cm (0.6 - 1.1) IVSs: 1.3 cm LVIDs: 3.4 cm LVPWs: 1.1 cm LA Diam: 3.6 cm (2.7 - 3.8) Ao Diam: 3.1 cm (2.0 - 3.7) AV Cusp: 2.2 cm (1.5 - 2.6) MV EXCURSION: 13.883 mm (> 18.000) MV EF SLOPE: 75 mm/s (70 - 150) EPSS: 0.5 cm MV E Navneet: 0.50 m/s MV DecT: 282 ms MV A Navneet: 0.70 m/s MV E/A Ratio: 0.71 RAP: 5.00 mmHg RVSP: 18.48 mmHg FINDINGS -------- Sinus rhythm. This was a technically good study. LV size, wall thickness and systolic function are normal, with an EF greater than 55%. The left boubacar tricular size is normal. The right ventricle is normal in size. Normal LA size by volume 22+/-6 ml/m2. The right atrial size is normal. There is mild aortic valve sclerosis. There is no evidence of aortic regurgitation. Mild mitral regurgitation is present. Mild tricuspid regurgitation present. Right ventricular systolic pressure is normal at < 35 mmHg. Trace/mild (physiologic) pulmonic regurgitation. The aortic root size is normal. Echo free space represents a pericardial fat pad. CONCLUSIONS -------- 1. LV size, wall thickness and systolic function are normal, with an EF greater than 55%. 2. The left ventricular size is normal. 3. The right ventricle is normal in size. 4. Normal LA size by volume 22+/-6 ml/m2. 5. The right atrial size is normal. 6. There is mild aortic valve sclerosis. 7. Mild mitral regurgitation is present. 8. Mild tricuspid regurgitation present. 9. Trace/mild (physiologic) pulmonic regurgitation. 10. The aortic root size is normal. 11. Echo free space represents a pericardial fat pad. SOCIAL SERVICE AGENCY DIRECTOR: Pepper Espinoza RDCS
[2020-10-22] MEDS ORDERED: MORPHINE SULFATE 4 MG/ML SYRINGE IVP STA (11:22)
--- NOTE | 2020-10-22 14:23 | P.DS ---
Providers Date of admission: 10/20/20 12:44 Expected date of discharge: 10/22/20 Attending physician: Carlos Sarmiento MD Consults: 10/20/20 12:44 Consult Physician Stat Consulting Provider: Jer Cedillo Consult Reason/Comments: chest pain Do you want consulting provider notified?: Yes Primary care physician: Estelle Butterfield [facility] Course: 50-year-old female presents emergency department today for concerns for onset of chest pain for the last 5 hours. Patient reports the pain feels like a tightness in her chest, located on the left side, with radiation towards her back and left arm. Patient states that she's had 2 abnormal EKGs at PCP office and was supposed to follow-up with Dr. Roy this upcoming week to be cleared for surgery. She is scheduled to have 2 surgeries one on the right shoulder and the other on her neck. States that she has associated dizziness, nausea and sob. No previous heart attacks or stents. She is a smoker and does report history of hypertension. Evaluation in the ER was unrevealing, trops and EKG ok. She will be admitted to the hospital for further evaluation by cardiology. Upon evaluation by cardiology, patient underwent CT angiogram of the chest and that did not show any PE. Air Twist Operator elected to perform heart catheterization which showed moderate coronary artery disease. Medical therapy was advised. High-intensity status was started. Atenolol was switched to metoprolol and patient was started on aspirin 81 mg daily. Throughout the hospitalization patient kept asking for IV morphine to relieve her pain. Towards the end of the hospitalization she was asking for higher dose. It seems like her pain tolerance is very low. The chest pain also seems to be correlated with her chronic right shoulder and chronic neck pain. Patient will cleared by cardiology for discharge. She will be discharged in stable condition. Time for discharge 35 minutes. Patient Condition at Discharge: Stable Plan - Discharge Summary New Discharge Prescriptions: New Atorvastatin [Lipitor] 80 mg PO HS 30 Days #30 tab Metoprolol Tartrate [Lopressor] 25 mg PO BID 30 Days #60 tab Aspirin 81 mg PO DAILY 30 Days #30 chew Continue Dextroamphetamine/Amphetamine [Adderall] 30 mg PO DAILY clonazePAM [KlonoPIN] 0.5 mg PO TID Escitalopram [Lexapro] 20 mg PO DAILY ARIPiprazole [Abilify] 2 mg PO DAILY HYDROcodone/APAP 10-325MG [[place] 10-325] 1 tab PO Q4HR PRN PRN Reason: Pain Dextroamphetamine/Amphetamine [Adderall] 20 mg PO DAILY@1300 Discontinued Atenolol [Tenormin] 50 mg PO DAILY Discharge Medication List Dextroamphetamine/Amphetamine [Adderall] 30 mg PO DAILY 10/23/19 [History] clonazePAM [KlonoPIN] 0.5 mg PO TID 10/23/19 [History] ARIPiprazole [Abilify] 2 mg PO DAILY 10/20/20 [History] Dextroamphetamine/Amphetamine [Adderall] 20 mg PO DAILY@1300 10/20/20 [History] Escitalopram [Lexapro] 20 mg PO DAILY 10/20/20 [History] HYDROcodone/APAP 10-325MG [[place] 10-325] 1 tab PO Q4HR PRN 10/20/20 [History] Aspirin 81 mg PO DAILY 30 Days #30 chew 10/22/20 [Rx] Atorvastatin [Lipitor] 80 mg PO HS 30 Days #30 tab 10/22/20 [Rx] Metoprolol Tartrate [Lopressor] 25 mg PO BID 30 Days #60 tab 10/22/20 [Rx] Follow up Appointment(s)/Referral(s): Khanh Roy MD [STAFF PHYSICIAN] - 10/25/20 4:15 pm Estelle Butterfield DO [Primary Care Provider] - 1-2 days Patient Instructions/Handouts: How to Stop Smoking (DC), Cigarette Smoking and Your Health (GEN), Coronary Angioplasty (DC)
[2020-10-22 14:31] VITALS: BP 119/64; PULSE 70; TEMP 98.4
[2020-10-22] MEDS ORDERED: METOPROLOL TARTRATE 25 MG TAB PO SCH (21:00)
[2020-10-22] MEDS ORDERED: ATORVASTATIN 80 MG TAB PO SCH (21:00)
[2020-10-23] MEDS ORDERED: ASPIRIN 81 MG PO SCH (09:00)
== END 2020-10-22 18:00 | disposition home or self-care (01) ==
LOC: EC 11:03 → 1SOBS 12:44 → 6NMEDSUR 14:28
PROVIDERS: ADMIT Internal Medicine; ATTEND Internal Medicine
DX: R07.89 Other chest pain (principal); M25.511 Pain in right shoulder; M54.2 Cervicalgia; G89.29 Other chronic pain; M54.9 Dorsalgia, unspecified; R94.31 Abnormal electrocardiogram [ECG] [EKG]; R42 Dizziness and giddiness; R11.0 Nausea; R06.02 Shortness of breath; I25.10 Atherosclerotic heart disease of native coronary artery without angina pectoris; F17.210 Nicotine dependence, cigarettes, uncomplicated; I10 Essential (primary) hypertension; I25.2 Old myocardial infarction; Z98.1 Arthrodesis status; K21.9 Gastro-esophageal reflux disease without esophagitis; J44.9 Chronic obstructive pulmonary disease, unspecified; K44.9 Diaphragmatic hernia without obstruction or gangrene; M51.36 Other intervertebral disc degeneration, lumbar region; R61 Generalized hyperhidrosis; G47.00 Insomnia, unspecified; F90.9 Attention-deficit hyperactivity disorder, unspecified type; F41.0 Panic disorder [episodic paroxysmal anxiety]; F40.240 Claustrophobia; Z79.82 Long term (current) use of aspirin; Z79.899 Other long term (current) drug therapy; Z79.891 Long term (current) use of opiate analgesic; Z91.013 Allergy to seafood; Z88.6 Allergy status to analgesic agent; Z90.49 Acquired absence of other specified parts of digestive tract; Z86.59 Personal history of other mental and behavioral disorders; Z96.611 Presence of right artificial shoulder joint; Z87.442 Personal history of urinary calculi; Z20.822 Contact with and (suspected) exposure to COVID-19; Z86.19 Personal history of other infectious and parasitic diseases; Z86.14 Personal history of Methicillin resistant Staphylococcus aureus infection; Z80.1 Family history of malignant neoplasm of trachea, bronchus and lung; Z82.49 Family history of ischemic heart disease and other diseases of the circulatory system; Z82.3 Family history of stroke; G43.909 Migraine, unspecified, not intractable, without status migrainosus
CPT/HCPCS: 96376 ×3; 96375 ×2; 93005 ×2; 96361; 96374; 99285; 36415; 93306; 93458; 85379; 83880; 80053; 80048; 83735; 84484; 85025 ×2; 85610; 85730; 87635; 71046; 71275; G0378 ×4; C1769; C1894; J2250; J2270 ×5; J2001; J3010; J1644; C9113 ×2; J1170; Q9967 ×2

== ENCOUNTER 2021-10-23 07:58 | Emergency (ER) | payer OTHER ==
[2021-10-23 08:02] VITALS: RESP 18; TEMP 97.3
[2021-10-23] MEDS ORDERED: DIAZEPAM 5 MG/ML 2 ML INJ IVP STA (08:15)
[2021-10-23] MEDS ORDERED: ONDANSETRON 4 MG/2 ML VIAL IVP STA (08:15)
[2021-10-23] MEDS ORDERED: HYDROmorphone 0.5 MG/0.5 ML SYRINGE IVP STA (08:15)
--- NOTE | 2021-10-23 09:15 | ED ---
Neck Injury/Pain HPI - General Chief Complaint: Neck Pain/Injury Stated Complaint: Neck pain Time Seen by Provider: 10/23/21 08:05 Source: patient, RN notes reviewed Mode of arrival: ambulatory Limitations: no limitations - History of Present Illness Initial Comments: This a 51-year-old female presents emergency from chief complaint of neck pain. Patient states that she had an injury for while back she states that she's been told that she may need to have surgery again. Patient states she has not follow-up with her spine surgeon Dr. Paez years ago. Patient states that she's been having some increasing neck discomfort and which this is a chronic issue. She states that she felt a crack states that the muscle a very tight today, very painful. Patient denies any headache, numbness or tingling or any weakness of extremities. Patient states that she's had no fevers or chills no redness no other complaints. - Related Data Home Medications Medication Instructions Recorded Confirmed clonazePAM [KlonoPIN] 0.5 mg PO BID PRN 10/23/19 10/23/21 Escitalopram [Lexapro] 20 mg PO DAILY 10/20/20 10/23/21 ARIPiprazole [Abilify] 10 mg PO DAILY 10/23/21 10/23/21 Carvedilol [Coreg] 25 mg PO BID 10/23/21 10/23/21 Ergocalciferol [Vitamin D2 (1250 1,250 mcg PO FR 10/23/21 10/23/21 Mcg = 86843 Iu)] HYDROcodone/APAP 7.5-325MG [[place] 1 tab PO Q6H PRN 10/23/21 10/23/21 7.5-325] Lidocaine 5% Oint [Xylocaine 5% 1 applic TOPICAL BID PRN 10/23/21 10/23/21 Oint] Methylphenidate HCl [Ritalin] 20 mg PO DAILY@1200 10/23/21 10/23/21 Methylphenidate HCl [Ritalin] 40 mg PO DAILY 10/23/21 10/23/21 Prazosin [Minipress] 5 mg PO HS 10/23/21 10/23/21 Previous Rx's Medication Instructions Recorded Cyclobenzaprine [Flexeril] 10 mg PO TID PRN #15 tab 10/23/21 predniSONE 50 mg PO DAILY #5 tab 10/23/21 Allergies Allergy/AdvReac Type Severity Reaction Status Date / Time ketorolac [From Toradol] Allergy Anaphylaxis Verified 10/23/21 09:36 shellfish derived Allergy Anaphylaxis Verified 10/23/21 09:36 tramadol [From Ultram] Allergy Anaphylaxis Verified 10/23/21 09:36 ibuprofen AdvReac HIVES Verified 10/23/21 09:36 Review of Systems ROS Statement: Those systems with pertinent positive or pertinent negative responses have been documented in the HPI. ROS Other: All systems not noted in ROS Statement are negative. Past Medical History Past Medical History: COPD, GERD/Reflux, Hypertension, Pneumonia Additional Past Medical History / Comment(s): chronic back pain, lumbar degener ative disc disease, insomnia, hx shingles, hiatal hernia, kidney stones. 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, migraines,; NECK PAIN , Last Myocardial Infarction Date:: 08/27/2016 History of Any Multi-Drug Resistant Organisms: MRSA Date of last positivie culture/infection: 09/22/09 MDRO Source:: neck Past Surgical History: Appendectomy, Back Surgery, Section, Cholecystectomy, Orthopedic Surgery Additional Past Surgical History / Comment(s): Cervical spine fusion with insertion of a metal plate, EGD, colonoscopy, radiofrequency ablation, Past Anesthesia/Blood Transfusion Reactions: No Reported Reaction Additional Past Anesthesia/Blood Transfusion Reaction / Comment(s): CLAUSTROPHOBIA Past Psychological History: ADD/ADHD, Anxiety, Panic Disorder Smoking Status: Current every day smoker Past Alcohol Use History: None Reported Past Drug Use History: None Reported - Past Family History Father Family Medical History: Cancer Additional Family Medical History / Comment(s): Father at age 48 from lung cancer. Mother Family Medical History: Congestive Heart Failure (CHF), CVA/TIA Additional Family Medical History / Comment(s): Mother is alive at age 68. She has suffered from a CVA and has chronic back problems. Patient has 2 brothers and 4 sisters with no major medical problems. General Exam Limitations: no limitations General appearance: alert, in no apparent distress Head exam: Present: atraumatic, normocephalic, normal inspection ENT exam: Present: normal exam, normal oropharynx, mucous membranes moist Neck exam: Present: normal inspection, full ROM. Absent: tenderness, meningismus, lymphadenopathy Respiratory exam: Present: normal lung sounds bilaterally. Absent: respiratory distress, wheezes, rales, rhonchi, stridor Cardiovascular Exam: Present: regular rate, normal rhythm, normal heart sounds. Absent: systolic murmur, diastolic murmur, rubs, gallop, clicks GI/Abdominal exam: Present: soft, normal bowel sounds. Absent: distended, tenderness, guarding, rebound, rigid Extremities exam: Present: full ROM, normal capillary refill, other (Upper extremity strength equal bilaterally neurovascular intact). Absent: tenderness Back exam: Present: full ROM. Absent: tenderness Neurological exam: Present: alert, oriented X3, CN II-XII intact, reflexes normal. Absent: motor sensory deficit Course Vital Signs 10/23/21 10/23/21 07:59 09:40 Temperature 97.3 F L Pulse Rate 101 H 102 H Respiratory 18 18 Rate Blood Pressure 139/99 123/86 O2 Sat by Pulse 99 98 Oximetry Medical Decision Making - Medical Decision Making 50-year-old presented for neck pain. Patient has no neurological deficits. CT does show postsurgical chronic degenerative changes. Patient's will be placed on steroids, muscle relaxers that she has obvious muscle spasms. She is advised she is to follow-up with her surgeon and return for any worsening change in symptoms. Disposition Clinical Impression: Cervical spine pain, Cervical paraspinal muscle spasm Disposition: HOME SELF-CARE Condition: Stable Instructions (If sedation given, give patient instructions): Cervical Sprain (ED) Additional Instructions: Please return to the Emergency Department if symptoms worsen or any other concerns. Prescriptions: Cyclobenzaprine [Flexeril] 10 mg PO TID PRN #15 tab PRN Reason: Muscle Spasm predniSONE 50 mg PO DAILY #5 tab Is patient prescribed a controlled substance at d/c from ED?: No Referrals: Estelle Butterfield DO [Primary Care Provider] - 1-2 days Time of Disposition: 09:48
--- NOTE | 2021-10-23 09:23 | CT ---
EXAMINATION TYPE: CT cervical spine wo con DATE OF EXAM: 10/23/2021 COMPARISON: X-ray dated 06/21/2020 and 07/07/2018 HISTORY: Cervical pain, Feels that plate has shifted CT DLP: 468.7 mGycm Automated exposure control for dose reduction was used. TECHNIQUE: CT scan of the cervical spine is obtained without contrast, axial images are obtained, sa gittal and coronal reformatted images are also reviewed. FINDINGS: Previous anterior fixation of C5 and C6 vertebral bodies using a plate and 4 screws. No evidence pros thesis break or displacement. No definite vertebral body collapse or acute displaced fracture. Unrema rkable atlantoaxial and atlantooccipital articulations. No facet dislocation or significant subluxati on. Degenerative changes of the cervical spine with multilevel opposing endplate osteophytosis, degenerat ed discs and uncovertebral osteoarthropathy, most evident at C5-6 and C6-7 levels. Mild multilevel fa cet osteoarthropathy is also noted. Drxd-ic-wkovgzgj bilateral C5-6, mild right and moderate left C6-7 neuroforaminal stenosis is noted. Mild central spinal canal stenosis is also seen at C5-6 and C6-7 levels. Scattered arterial atheroscl erotic calcifications. Enlarged nasopharyngeal soft tissue, please correlate clinically as underlying lesion can't be excluded. Minimal paraseptal emphysema is seen in the visualized portion of the lung s. IMPRESSION: Postsurgical changes as described above. No evidence of prosthesis break or displacement. Degenerativ e changes of cervical spine and other incidental findings as above. Further MRI assessment can be con sidered if clinically required.
[2021-10-23] MEDS ORDERED: HYDROmorphone 1 MG/ML 1 ML SYRINGE IVP STA (09:31)
[2021-10-23] MEDS ORDERED: methylPREDNISolone SOD SUCCI 125 MG/2 ML VIAL IV STA (09:46)
[2021-10-23 10:14] VITALS: BP 117/85; PULSE 106
== END 2021-10-23 10:34 | disposition home or self-care (01) ==
LOC: EC 07:58
DX: M54.2 Cervicalgia (principal); M62.838 Other muscle spasm; G89.29 Other chronic pain; J44.9 Chronic obstructive pulmonary disease, unspecified; K21.9 Gastro-esophageal reflux disease without esophagitis; I10 Essential (primary) hypertension; F90.9 Attention-deficit hyperactivity disorder, unspecified type; F41.9 Anxiety disorder, unspecified; F17.200 Nicotine dependence, unspecified, uncomplicated; Z88.1 Allergy status to other antibiotic agents; Z88.6 Allergy status to analgesic agent; Z87.442 Personal history of urinary calculi; Z90.49 Acquired absence of other specified parts of digestive tract
CPT/HCPCS: 72125; 96374; 96375; 96376; 99283

== ENCOUNTER 2022-07-05 08:52 | Emergency (ER) | payer OTHER ==
[2022-07-05 09:05] VITALS: RESP 18
[2022-07-05] MEDS ORDERED: SODIUM CHLORIDE 0.9% 1,000 ML IV STA (09:32)
[2022-07-05] MEDS ORDERED: MORPHINE SULFATE 4 MG/ML SYRINGE IVP STA ×2 (09:32→10:52)
[2022-07-05] MEDS ORDERED: DEXAMETHASONE SOD PHOSPHATE 10 MG/ML 1 ML VIAL IVP STA (09:33)
--- NOTE | 2022-07-05 09:36 | ED ---
General Adult HPI - General Chief complaint: Upper Respiratory Infection Stated complaint: URI Time Seen by Provider: 07/05/22 09:20 Source: patient, RN notes reviewed Mode of arrival: ambulatory Limitations: no limitations - History of Present Illness Initial comments: Patient is a 52-year-old female presenting to the emergency room from home with complaints of cough and congestion ongoing for a few weeks along with left ear pain radiating throughout the left side of her face into her left sinus and down into her jaw. She reports that she has a past medical history significant for mastoiditis and is concerned that she may be developing similar symptoms. She was recently treated with oral antibiotics and steroid by her primary care provider for a sinus/upper respiratory infection but states that she had no significant improvement. She denies any diagnostic imaging at the time of her prescription including any viral testing or chest x-ray. She reports that the pain in her ear is severe and sounds are slightly muffled. She reports that her cough and congestion have been ongoing for quite some time and have not worsened but have not improved. She has some shortness of breath and pleuritic pain from her persistent cough. She reports some occasional fevers with chills. She denies any abdominal pain nausea or vomiting. She has a past medical history significant for COPD, hypertension, GERD, chronic back pain, migraines and renal stones. - Related Data Home Medications Medication Instructions Recorded Confirmed clonazePAM [KlonoPIN] 0.5 mg PO BID PRN 10/23/19 10/23/21 Escitalopram [Lexapro] 20 mg PO DAILY 10/20/20 10/23/21 ARIPiprazole [Abilify] 10 mg PO DAILY 10/23/21 10/23/21 Ergocalciferol [Vitamin D2 (1250 1,250 mcg PO FR 10/23/21 10/23/21 Mcg = 95057 Iu)] HYDROcodone/APAP 7.5-325MG [[place] 1 tab PO Q6H PRN 10/23/21 10/23/21 7.5-325] Lidocaine 5% Oint [Xylocaine 5% 1 applic TOPICAL BID PRN 10/23/21 10/23/21 Oint] Methylphenidate HCl [Ritalin] 20 mg PO DAILY@1200 10/23/21 10/23/21 Methylphenidate HCl [Ritalin] 40 mg PO DAILY 10/23/21 10/23/21 Prazosin [Minipress] 5 mg PO HS 10/23/21 10/23/21 carvediloL [Coreg] 25 mg PO BID 10/23/21 10/23/21 Previous Rx's Medication Instructions Recorded Cyclobenzaprine [Flexeril] 10 mg PO TID PRN #15 tab 10/23/21 predniSONE 50 mg PO DAILY #5 tab 10/23/21 Cefdinir 300 mg PO Q12HR 7 Days #14 cap 07/05/22 Ksjdhvcf-Lfhygwrwr-Og Otic 2 drops LEFT EAR QID 7 Days #10 ml 07/05/22 [Cortisporin Otic Soln] dexAMETHasone [Decadron] 6 mg PO DAILY 7 Days #7 tablet 07/05/22 Allergies Allergy/AdvReac Type Severity Reaction Status Date / Time ketorolac [From Toradol] Allergy Anaphylaxis Verified 07/05/22 09:05 shellfish derived Allergy Anaphylaxis Verified 07/05/22 09:05 tramadol [From Ultram] Allergy Anaphylaxis Verified 07/05/22 09:05 ibuprofen AdvReac HIVES Verified 07/05/22 09:05 Review of Systems ROS Statement: Those systems with pertinent positive or pertinent negative responses have been documented in the HPI. ROS Other: All systems not noted in ROS Statement are negative. Past Medical History Past Medical History: COPD, GERD/Reflux, Hypertension, Pneumonia Additional Past Medical History / Comment(s): chronic back pain, lumbar degenerative disc disease, insomnia, hx shingles, hiatal hernia, kidney stones. 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, migraines,; NECK PAIN , Last Myocardial Infarction Date:: 08/27/2016 History of Any Multi-Drug Resistant Organisms: MRSA Date of last positivie culture/infection: 09/22/09 MDRO Source:: neck Past Surgical History: Appendectomy, Back Surgery, Section, Cholecystectomy, Orthopedic Surgery Additional Past Surgical History / Comment(s): Cervical spine fusion with insertion of a metal plate, EGD, colonoscopy, radiofrequency ablation, Past Anesthesia/Blood Transfusion Reactions: No Reported Reaction Additional Past Anesthesia/Blood Transfusion Reaction / Comment(s): CLAUSTROPHOBIA Past Psychological History: ADD/ADHD, Anxiety, Panic Disorder Smoking Status: Current every day smoker Past Alcohol Use History: None Reported Past Drug Use History: None Reported - Past Family History Father Family Medical History: Cancer Additional Family Medical History / Comment(s): Father at age 48 from lung cancer. Mother Family Medical History: Congestive Heart Failure (CHF), CVA/TIA Additional Family Medical History / Comment(s): Mother is alive at age 68. She has suffered from a CVA and has chronic back problems. Patient has 2 brothers and 4 sisters with no major medical problems. General Exam Limitations: no limitations General appearance: alert, in no apparent distress Head exam: Present: atraumatic, normocephalic, normal inspection Eye exam: Present: normal appearance, PERRL, EOMI. Absent: scleral icterus, conjunctival injection, periorbital swelling ENT exam: Present: mucous membranes moist, normal external ear exam, other (Bilateral nasal turbinates pale and boggy with mild edema) Expanded TM/Canal exam: Erythema: Left TM, Bulging: Left TM, Effusion: Left TM, Mastoid Tenderness: Left TM, Canal Tenderness: Left TM Mouth exam: Present: normal external inspection Teeth exam: Present: dental caries, other (multiple missing teeth) Neck exam: Present: normal inspection, tenderness (left anterior), lymphadenopathy (shotty) Respiratory exam: Present: normal lung sounds bilaterally. Absent: respiratory distress, wheezes, rales, rhonchi, stridor Cardiovascular Exam: Present: regular rate, tachycardia (mild), normal heart sounds. Absent: systolic murmur, diastolic murmur, rubs, gallop, clicks GI/Abdominal exam: Present: soft, normal bowel sounds. Absent: distended, tenderness, guarding, rebound, rigid Extremities exam: Present: normal inspection. Absent: pedal edema, joint swelling Back exam: Present: normal inspection Neurological exam: Present: alert, oriented X3, CN II-XII intact Psychiatric exam: Present: normal affect, normal mood Skin exam: Present: warm, dry, intact, normal color. Absent: rash Course Vital Signs 07/05/22 07/05/22 07/05/22 09:02 10:30 11:44 Temperature 97.9 F 98.1 F Pulse Rate 110 H 106 H 108 H Respiratory 18 18 18 Rate Blood Pressure 149/82 104/78 122/80 O2 Sat by Pulse 98 99 99 Oximetry Medical Decision Making - Medical Decision Making 52-year-old female presenting to the emergency room with congestion cough along with severe left ear pain with a history of mastitis. Previously treated with amoxicillin oral steroids without improvement in congestion and development of ear pain on treatment. Lung sounds clear no indication for chest x-ray or other diagnostic imaging at this time. Will obtain CBC, BMP along with cephid swab to evaluate for viral etiology of cough and congestion. Will give Decadron your swelling along with normal saline IV fluid bolus for tachycardia and morphine for pain. Will monitor response. Pain improved after Decadron and morphine but return. Will give additional dose of morphine. CBC reveals mild leukocytosis at 16.4 with slightly elevated BUN at 20. Electrolytes overall stable CO2 noted low at 21. Tolerated IV hydration well. Pain improved with second dose of morphine. Cephid swab completed; RSV and influenza negative. Positive for Covid. Discussed symptomatic management for Covid given duration of symptoms and non-unknown duration of Covid not a candidate for antiviral therapy. Will treat with oral and otic antibiotics for otitis media and otitis externa. Will utilize steroid otic drop along with decadron. Will discharge home with Tylenol 3 starter pack for pain. Encouraged follow-up with her primary care provider and if established with ENT. Case discussed with Dr. Pete. - Lab Data Result diagrams: 07/05/22 10:13 07/05/22 10:13 Lab Results 07/05/22 07/05/22 07/05/22 Range/Units 09:44 10:13 10:13 WBC 16.4 H (3.8-10.6) k/uL RBC 4.71 (3.80-5.40) m/uL Hgb 14.1 (11.4-16.0) gm/dL Hct 43.0 (34.0-46.0) % MCV 91.3 (80.0-100.0) fL MCH 30.0 (25.0-35.0) pg MCHC 32.9 (31.0-37.0) g/dL RDW 12.5 (11.5-15.5) % Plt Count 382 (150-450) k/uL MPV 7.2 Neutrophils % (Manual) 75 % Band Neuts % (Manual) 2 % Lymphocytes % (Manual) 11 % Monocytes % (Manual) 12 % Eosinophils % (Manual) 1 % Metamyelocytes % 1 % Neutrophils # (Manual) 12.60 H (1.3-7.7) k/uL Lymphocytes # (Manual) 1.80 (1.0-4.8) k/uL Monocytes # (Manual) 1.97 H (0-1.0) k/uL Eosinophils # (Manual) 0.16 (0-0.7) k/uL Metamyelocytes # (Man) 0.16 H (0) k/uL Nucleated RBCs 0 (0-0) /100 WBC Manual Slide Review Performed RBC Morphology Normal Sodium 137 (137-145) mmol/L Potassium 4.1 (3.5-5.1) mmol/L Chloride 108 H (98-107) mmol/L Carbon Dioxide 21 L (22-30) mmol/L Anion Gap 8 mmol/L BUN 20 H (7-17) mg/dL Creatinine 0.90 (0.52-1.04) mg/dL Est GFR (CKD-EPI)AfAm 84 (>60 ml/min/1.73 sqM) Est GFR (CKD-EPI)NonAf 73 (>60 ml/min/1.73 sqM) Glucose 131 H (74-99) mg/dL Calcium 8.9 (8.4-10.2) mg/dL Influenza Type A (PCR) Not Detected (Not Detectd) Influenza Type B (PCR) Not Detected (Not Detectd) RSV (PCR) Not Detected (Not Detectd) SARS-CoV-2 (PCR) Detected A (Not Detectd) Disposition Clinical Impression: COVID-19, Left otitis media with effusion, Left otitis externa Disposition: HOME SELF-CARE Condition: Stable Instructions (If sedation given, give patient instructions): Ear Infection (ED), COVID-19 (Coronavirus Disease 2019) (ED) Additional Instructions: Please quarantine for 5 days after testing positive and restart quarantine if symptoms worsen. Please utilize Tylenol# 3 starter pack for pain as needed. Please complete course of oral antibiotics along with antibiotic ear drops as prescribed. Please take course of steroid as prescribed and do not take NSAIDs while taking oral steroid treatment. Taking vitamin C, Zinc, vitamin D 50 mcg, and melatonin may help symptom recovery. After quarantine period please follow- up with your primary care provider. Please return to the Emergency Department if symptoms worsen or any other concerns. Prescriptions: Cefdinir 300 mg PO Q12HR 7 Days #14 cap Iivettyq-Zdwnwbirr-St Otic [Cortisporin Otic Soln] 2 drops LEFT EAR QID 7 Days #10 ml dexAMETHasone [Decadron] 6 mg PO DAILY 7 Days #7 tablet Is patient prescribed a controlled substance at d/c from ED?: No Referrals: Estelle Butterfield DO [Primary Care Provider] - 1-2 days Time of Disposition: 11:00
[2022-07-05 10:20] LABS: HGB 14.1 gm/dL (11.4-16.0); MCHC 32.9 g/dL (31.0-37.0); MCV 91.3 fL (80.0-100.0); Mean Platelet Volume 7.2; Platelet Count 382 k/uL (150-450); RBC 4.71 m/uL (3.80-5.40); RDW 12.5 % (11.5-15.5); WBC 16.4 k/uL (3.8-10.6)
[2022-07-05 10:32] LABS: Calcium 8.9 mg/dL (8.4-10.2); Potassium 4.1 mmol/L (3.5-5.1)
[2022-07-05 10:39] LABS: Band Neutrophils % 2 %; Eosinophils # (M) 0.16 k/uL (0-0.7); Metamyelocytes # (M) 0.16 k/uL (0); Metamyelocytes % 1 %; Monocytes # (M) 1.97 k/uL (0-1.0); Neutrophils % (M) 75 %; Nucleated Red Blood Cells 0 /100 WBC (0-0); Total Cells Counted 200
[2022-07-05 10:40] LABS: RBC Morphology Normal
[2022-07-05] MEDS ORDERED: ACET/COD 300 MG/30 MG STARTER PACK 6 TAB BTL PO STA (10:52)
[2022-07-05 12:53] VITALS: BP 122/80; PULSE 108; TEMP 98.1
== END 2022-07-05 11:44 | disposition home or self-care (01) ==
LOC: EC 08:52
DX: U07.1 COVID-19 (principal); H65.92 Unspecified nonsuppurative otitis media, left ear; H60.92 Unspecified otitis externa, left ear; I10 Essential (primary) hypertension; J44.9 Chronic obstructive pulmonary disease, unspecified; F41.9 Anxiety disorder, unspecified; F17.200 Nicotine dependence, unspecified, uncomplicated; Z88.5 Allergy status to narcotic agent; Z88.6 Allergy status to analgesic agent; Z88.8 Allergy status to other drugs, medicaments and biological substances; Z20.822 Contact with and (suspected) exposure to COVID-19; Z79.899 Other long term (current) drug therapy
CPT/HCPCS: 99283; 96374; 96375; 96376; 96361; 36415; 80048; 85025; 87636; J2270; J1100

== ENCOUNTER 2022-08-08 13:00 | Emergency (ER) | payer OTHER ==
[2022-08-08 13:10] VITALS: BP 146/91; PULSE 109; RESP 18; TEMP 97.9
--- NOTE | 2022-08-08 13:50 | ED ---
General Adult HPI - General Chief complaint: Psychiatric Symptoms Stated complaint: mental health Time Seen by Provider: 08/08/22 13:12 Source: patient Mode of arrival: ambulatory Limitations: no limitations - History of Present Illness Initial comments: Dictation was produced using [employer] dictation software. please excuse any grammatical, word or spelling errors. Chief Complaint: 52-year-old female presents emergency department for mental health evaluation History of Present Illness: Is 52-year-old female presents to the emergency department for mental health evaluation. Patient states that she was in a confrontation with another individual regarding conservatorship for her grandson. Patient reports that her grandson's mother unexpectedly. The other individual called police on patient states that she was to be evaluated for mental health. Patient states that she was recently hospitalized for infection to the face that radiated to the side of the head. She states that she's been on antibiotics for several weeks. Patient denies any suicidal or homicidal ideation. Denies any visual hallucinations. The ROS documented in this emergency department record has been reviewed and confirmed by me. Those systems with pertinent positive or negative responses have been documented in the HPI. All other systems are other negative and/or noncontributory. PHYSICAL EXAM: General Impression: Alert and oriented x3, not in acute distress HEENT: Normocephalic atraumatic, extra-ocular movements intact, pupils equal and reactive to light bilaterally, mucous membranes moist. Cardiovascular: Heart regular rate and rhythm Chest: Able to complete full sentences, no retractions, no tachypnea Abdomen: abdomen soft, non-tender, non-distended, no organomegaly Musculoskeletal: Pulses present and equal in all extremities, no peripheral edema Motor: no focal deficits noted Neurological: CN II-XII grossly intact, no focal motor or sensory deficits noted Skin: Intact with no visualized rashes Psych: Rambling speech ED course: 52-year-old female presents emergency department for mental health evaluation. Patient came in voluntarily. She denies any suicidal or homicidal ideation. No visual auditory hallucinations. Patient not showing any signs of psychosis. Vital signs are within acceptable limits. Physical exam is unremarkable. Chart review was performed showing the patient was not in fact admitted recently to the hospital for intracranial infection. Chart review shows that patient was admitted for withdrawal. Nursing notes and chart review was performed My EKG interpretation: Ventricular rate 97, sinus rhythm, IL interval 154, QRS 100, QTC 416. No IL prolongation, no QTC prolongation, no ST or T-wave changes noted. Overall, this EKG is unremarkable I was approached by the nurse for the patient at 2:57 PM reporting that she would like to leave AGAINST MEDICAL ADVICE due to long wait to talk to EPS. At this point patient does not meet criteria for required EPS evaluation. She does not seem to be of harm to others. Patient was leaving AGAINST MEDICAL ADVICE. Risk and benefits are discussed with patient at 3:00 PM. Was pt. sent in by a medical professional or institution (, JANIE, DIRECTOR CASE, urgent care, hospital, or long-term...) When possible be specific @ -No Did you speak to anyone other than the patient for history (EMS, parent, family, police, friend...)? What history was obtained from this source @ -No Did you review nursing and triage notes (agree or disagree)? Why? @ -I reviewed and agree with nursing and triage notes Were old charts reviewed (outside hosp., previous admission, EMS record, old EKG, old radiological studies, urgent care reports/EKG's, long-term records)? Report findings @ -Previous admission notes were reviewed Differential Diagnosis (chest pain, altered mental status, abdominal pain women, abdominal pain men, vaginal bleeding, weakness, fever, dyspnea, syncope, headache, dizziness, GI bleed, back pain, seizure, CVA, palpatations, mental health)? @ -not applicable EKG interpreted by me (3pts min.). @ -As above X-rays interpreted by me (1pt min.). @ -None done CT interpreted by me (1pt min.). @ -None done U/S interpreted by me (1pt. min.). @ -None done What testing was considered but not performed or refused? (CT, X-rays, U/S, labs)? Why? @ -None What meds were considered but not given or refused? Why? @ -None Did you discuss the management of the patient with other professionals (salvador plascencia i.e. JANIE Miller, DIRECTOR CASE, lab, RT, psych nurse, criminal justice social worker, director of pulmonary unit, teacher, community cultural development officer, gearcase assembler)? Give summary @ -No Was smoking cessation discussed for >3mins.? @ -No Was critical care preformed (if so, how long)? @ -No Were there social determinants of health that impacted care today? How? (Homelessness, low income, unemployed, alcoholism, drug addiction, transpor tation, low edu. Level, literacy, decrease access to med. care, alf, rehab)? @ -No Was there de-escalation of care discussed even if they declined (Discuss DNR or withdrawal of care, Hospice)? DNR status @ -No What co-morbidities impacted this encounter? (DM, HTN, Smoking, COPD, CAD, Cancer, CVA, ARF, Chemo, Hep., AIDS, mental health diagnosis, sleep apnea, morbid obesity)? @ -None Was patient admitted / discharged? Hospital course, mention meds given and route, prescriptions, significant lab abnormalities, going to OR and other pertinent info. @ -See above Undiagnosed new problem with uncertain prognosis? @ -No Drug Therapy requiring intensive monitoring for toxicity (Heparin, Nitro, Insulin, Cardizem)? @ -No Were any procedures done? @ -No Diagnosis/symptom? @ -Psychiatric evaluation Acute, or Chronic, or Acute on Chronic? @ -default Uncomplicated (without systemic symptoms) or Complicated (systemic symptoms)? @ -default Side effects of treatment? @ -No Exacerbation, Progression, or Severe Exacerbation? @ -No Poses a threat to life or bodily function? How? (Chest pain, [place], [place], pneumonia, PE, COPD, DKA, ARF, appy, cholecystitis, CVA, Diverticulitis, Homicidal, Suicidal, threat to staff... and all critical care pts) @ -No - Related Data Home Medications Medication Instructions Recorded Confirmed clonazePAM [KlonoPIN] 0.5 mg PO BID PRN 10/23/19 10/23/21 Escitalopram [Lexapro] 20 mg PO DAILY 10/20/20 10/23/21 ARIPiprazole [Abilify] 10 mg PO DAILY 10/23/21 10/23/21 Ergocalciferol [Vitamin D2 (1250 1,250 mcg PO FR 10/23/21 10/23/21 Mcg = 42926 Iu)] HYDROcodone/APAP 7.5-325MG [[place] 1 tab PO Q6H PRN 10/23/21 10/23/21 7.5-325] Lidocaine 5% Oint [Xylocaine 5% 1 applic TOPICAL BID PRN 10/23/21 10/23/21 Oint] Methylphenidate HCl [Ritalin] 20 mg PO DAILY@1200 10/23/21 10/23/21 Methylphenidate HCl [Ritalin] 40 mg PO DAILY 10/23/21 10/23/21 Prazosin [Minipress] 5 mg PO HS 10/23/21 10/23/21 carvediloL [Coreg] 25 mg PO BID 10/23/21 10/23/21 Previous Rx's Medication Instructions Recorded Cyclobenzaprine [Flexeril] 10 mg PO TID PRN #15 tab 10/23/21 predniSONE 50 mg PO DAILY #5 tab 10/23/21 Cefdinir 300 mg PO Q12HR 7 Days #14 cap 07/05/22 Eqwnlhpy-Iywqmycly-Ih Otic 2 drops LEFT EAR QID 7 Days #10 ml 07/05/22 [Cortisporin Otic Soln] dexAMETHasone [Decadron] 6 mg PO DAILY 7 Days #7 tablet 07/05/22 Allergies Allergy/AdvReac Type Severity Reaction Status Date / Time ketorolac [From Toradol] Allergy Anaphylaxis Verified 08/08/22 13:10 shellfish derived Allergy Anaphylaxis Verified 08/08/22 13:10 tramadol [From Ultram] Allergy Anaphylaxis Verified 08/08/22 13:10 ibuprofen AdvReac HIVES Verified 08/08/22 13:10 Review of Systems ROS Statement: Those systems with pertinent positive or pertinent negative responses have been documented in the HPI. ROS Other: All systems not noted in ROS Statement are negative. Past Medical History Past Medical History: COPD, GERD/Reflux, Hypertension, Pneumonia Additional Past Medical History / Comment(s): chronic back pain, lumbar degenerative disc disease, insomnia, hx shingles, hiatal hernia, kidney stones. 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, migraines,; NECK PAIN , Last Myocardial Infarction Date:: 08/27/2016 History of Any Multi-Drug Resistant Organisms: MRSA Date of last positivie culture/infection: 09/22/09 MDRO Source:: neck Past Surgical History: Appendectomy, Back Surgery, Section, Cholecystectomy, Orthopedic Surgery Additional Past Surgical History / Comment(s): Cervical spine fusion with insert ion of a metal plate, EGD, colonoscopy, radiofrequency ablation, Past Anesthesia/Blood Transfusion Reactions: No Reported Reaction Additional Past Anesthesia/Blood Transfusion Reaction / Comment(s): CLAUSTROPHOBIA Past Psychological History: ADD/ADHD, Anxiety, Panic Disorder Smoking Status: Current every day smoker Past Alcohol Use History: None Reported Past Drug Use History: None Reported - Past Family History Father Family Medical History: Cancer Additional Family Medical History / Comment(s): Father at age 48 from lung cancer. Mother Family Medical History: Congestive Heart Failure (CHF), CVA/TIA Additional Family Medical History / Comment(s): Mother is alive at age 68. She has suffered from a CVA and has chronic back problems. Patient has 2 brothers and 4 sisters with no major medical problems. General Exam Limitations: no limitations Course Vital Signs 08/08/22 13:03 Temperature 97.9 F Pulse Rate 109 H Respiratory 18 Rate Blood Pressure 146/91 O2 Sat by Pulse 98 Oximetry Medical Decision Making - Lab Data Result diagrams: 08/08/22 14:17 08/08/22 14:17 Lab Results 08/08/22 08/08/22 08/08/22 Range/Units 14:17 14:17 14:17 WBC 11.6 H (3.8-10.6) k/uL RBC 4.62 (3.80-5.40) m/uL Hgb 13.8 (11.4-16.0) gm/dL Hct 42.0 (34.0-46.0) % MCV 91.0 (80.0-100.0) fL MCH 29.8 (25.0-35.0) pg MCHC 32.8 (31.0-37.0) g/dL RDW 13.5 (11.5-15.5) % Plt Count 400 (150-450) k/uL MPV 6.9 Neutrophils % 73 % Lymphocytes % 17 % Monocytes % 7 % Eosinophils % 1 % Basophils % 1 % Neutrophils # 8.5 H (1.3-7.7) k/uL Lymphocytes # 1.9 (1.0-4.8) k/uL Monocytes # 0.9 (0-1.0) k/uL Eosinophils # 0.1 (0-0.7) k/uL Basophils # 0.1 (0-0.2) k/uL PT 10.0 (9.0-12.0) sec INR 0.9 (<1.2) APTT 26.3 (22.0-30.0) sec Sodium 141 (137-145) mmol/L Potassium 3.7 (3.5-5.1) mmol/L Chloride 110 H (98-107) mmol/L Carbon Dioxide 24 (22-30) mmol/L Anion Gap 7 mmol/L BUN 27 H (7-17) mg/dL Creatinine 1.02 (0.52-1.04) mg/dL Est GFR (CKD-EPI)AfAm 72 (>60 ml/min/1.73 sqM) Est GFR (CKD-EPI)NonAf 63 (>60 ml/min/1.73 sqM) Glucose 112 H (74-99) mg/dL Plasma Lactic Acid Ruben (0.7-2.0) mmol/L Calcium 10.2 (8.4-10.2) mg/dL Magnesium 2.1 (1.6-2.3) mg/dL Total Bilirubin 0.5 (0.2-1.3) mg/dL AST 19 (14-36) U/L ALT 18 (4-34) U/L Alkaline Phosphatase 120 (38-126) U/L Total Protein 7.7 (6.3-8.2) g/dL Albumin 4.5 (3.5-5.0) g/dL Urine Color Urine Appearance (Clear) Urine pH (5.0-8.0) Ur Specific [place] (1.001-1.035) Urine Protein (Negative) Urine Glucose (UA) (Negative) Urine Ketones (Negative) Urine Blood (Negative) Urine Nitrite (Negative) Urine Bilirubin (Negative) Urine Urobilinogen (<2.0) mg/dL Ur Leukocyte Esterase (Negative) Urine RBC (0-5) /hpf Urine WBC (0-5) /hpf Ur Squamous Epith Cells (0-4) /hpf Amorphous Sediment (None) /hpf Urine Bacteria (None) /hpf Hyaline Casts (0-2) /lpf Urine Mucus (None) /hpf Serum Alcohol <10 mg/dL 08/08/22 08/08/22 Range/Units 14:17 14:23 WBC (3.8-10.6) k/uL RBC (3.80-5.40) m/uL Hgb (11.4-16.0) gm/dL Hct (34.0-46.0) % MCV (80.0-100.0) fL MCH (25.0-35.0) pg MCHC (31.0-37.0) g/dL RDW (11.5-15.5) % Plt Count (150-450) k/uL MPV Neutrophils % % Lymphocytes % % Monocytes % % Eosinophils % % Basophils % % Neutrophils # (1.3-7.7) k/uL Lymphocytes # (1.0-4.8) k/uL Monocytes # (0-1.0) k/uL Eosinophils # (0-0.7) k/uL Basophils # (0-0.2) k/uL PT (9.0-12.0) sec INR (<1.2) APTT (22.0-30.0) sec Sodium (137-145) mmol/L Potassium (3.5-5.1) mmol/L Chloride (98-107) mmol/L Carbon Dioxide (22-30) mmol/L Anion Gap mmol/L BUN (7-17) mg/dL Creatinine (0.52-1.04) mg/dL Est GFR (CKD-EPI)AfAm (>60 ml/min/1.73 sqM) Est GFR (CKD-EPI)NonAf (>60 ml/min/1.73 sqM) Glucose (74-99) mg/dL Plasma Lactic Acid Ruben 0.9 (0.7-2.0) mmol/L Calcium (8.4-10.2) mg/dL Magnesium (1.6-2.3) mg/dL Total Bilirubin (0.2-1.3) mg/dL AST (14-36) U/L ALT (4-34) U/L Alkaline Phosphatase (38-126) U/L Total Protein (6.3-8.2) g/dL Albumin (3.5-5.0) g/dL Urine Color Yellow Urine Appearance Cloudy H (Clear) Urine pH 5.5 (5.0-8.0) Ur Specific [place] 1.034 (1.001-1.035) Urine Protein 1+ H (Negative) Urine Glucose (UA) Negative (Negative) Urine Ketones Negative (Negative) Urine Blood Moderate H (Negative) Urine Nitrite Negative (Negative) Urine Bilirubin Negative (Negative) Urine Urobilinogen <2.0 (<2.0) mg/dL Ur Leukocyte Esterase Negative (Negative) Urine RBC 3 (0-5) /hpf Urine WBC 4 (0-5) /hpf Ur Squamous Epith Cells 30 H (0-4) /hpf Amorphous Sediment Rare H (None) /hpf Urine Bacteria Few H (None) /hpf Hyaline Casts 10 H (0-2) /lpf Urine Mucus Many H (None) /hpf Serum Alcohol mg/dL Disposition Clinical Impression: Encounter for psychiatric assessment Disposition: Left Against Medical Advice Condition: Fair Referrals: Estelle Butterfield DO [Primary Care Provider] - 1-2 days Time of Disposition: 15:23
[2022-08-08 14:36] LABS: Basophils # (A) 0.1 k/uL (0-0.2); Basophils % (A) 1 %; Eosinophils # (A) 0.1 k/uL (0-0.7); Eosinophils % (A) 1 %; HGB 13.8 gm/dL (11.4-16.0); Lymphocytes # (A) 1.9 k/uL (1.0-4.8); Lymphocytes % (A) 17 %; MCH 29.8 pg (25.0-35.0); MCHC 32.8 g/dL (31.0-37.0); Mean Platelet Volume 6.9; Monocytes # (A) 0.9 k/uL (0-1.0); Monocytes % (A) 7 %; Neutrophils # (A) 8.5 k/uL (1.3-7.7); Neutrophils % (A) 73 %; Platelet Count 400 k/uL (150-450); RBC 4.62 m/uL (3.80-5.40); RDW 13.5 % (11.5-15.5); WBC 11.6 k/uL (3.8-10.6)
[2022-08-08 14:47] LABS: Amorphous Sediment,Urine Rare /hpf; Appearance,Urine Cloudy (Clear); Bacteria,Urine Few /hpf; Bilirubin,Urine Negative (Negative); Blood,Urine Moderate (Negative); Color,Urine Yellow; Glucose,Urine (UA) Negative (Negative); Hyaline Casts,Urine 10 /lpf (0-2); Ketones,Urine Negative (Negative); Leukocyte Esterase,Urine Negative (Negative); Mucus,Urine Many /hpf; Nitrite,Urine Negative (Negative); PH, Urine 5.5 (5.0-8.0); Protein,Urine 1+ (Negative); RBC,Urine 3 /hpf (0-5); Specific Gravity,Urine 1.034 (1.001-1.035); Squamous Epithelial Cell,Urine 30 /hpf (0-4); Urobilinogen,Urine <2.0 mg/dL (<2.0); WBC,Urine 4 /hpf (0-5)
[2022-08-08 14:48] LABS: ALT 18 U/L (4-34); AST 19 U/L (14-36); African American GFR (CKD) 72 (>60 ml/min/1.73 sqM); Albumin 4.5 g/dL (3.5-5.0); Alcohol <10 mg/dL; Alkaline Phosphatase 120 U/L (38-126); Anion Gap 7 mmol/L; Blood Urea Nitrogen 27 mg/dL (7-17); Calcium 10.2 mg/dL (8.4-10.2); Carbon Dioxide 24 mmol/L (22-30); Chloride 110 mmol/L (98-107); Glucose 112 mg/dL (74-99); Magnesium 2.1 mg/dL (1.6-2.3); Non-African American GFR(CKD) 63 (>60 ml/min/1.73 sqM); Potassium 3.7 mmol/L (3.5-5.1); Sodium 141 mmol/L (137-145); Total Bilirubin 0.5 mg/dL (0.2-1.3); Total Protein 7.7 g/dL (6.3-8.2)
[2022-08-08 14:52] LABS: INR 0.9 (<1.2); Partial Thromboplastin Time 26.3 sec (22.0-30.0)
[2022-08-08 15:11] LABS: Amphetamine Screen,Urine Detected (NotDetected); Barbiturate Screen,Urine Not Detected (NotDetected); Benzodiazepines Screen,Urine Detected (NotDetected); Cocaine Screen,Urine Not Detected (NotDetected); Methadone Screen, Urine Not Detected (NotDetected); Opiate Screen,Urine Not Detected (NotDetected); Oxycodone Screen, Urine Not Detected (NotDetected); Phencyclidine Screen,Urine Not Detected (NotDetected); Tricyclic Antidepressant,Urine Not Detected (NotDetected); Urn Cannabinoid Scrn Detected (NotDetected)
== END 2022-08-08 15:35 | disposition left against medical advice (07) ==
LOC: EC 13:00
DX: Z00.8 Encounter for other general examination (principal); J44.9 Chronic obstructive pulmonary disease, unspecified; K21.9 Gastro-esophageal reflux disease without esophagitis; I10 Essential (primary) hypertension; F41.9 Anxiety disorder, unspecified; F17.200 Nicotine dependence, unspecified, uncomplicated; Z91.013 Allergy to seafood; Z88.5 Allergy status to narcotic agent; Z88.6 Allergy status to analgesic agent; Z79.899 Other long term (current) drug therapy; Z53.29 Procedure and treatment not carried out because of patient's decision for other reasons
CPT/HCPCS: 82075; 36415; 93005; 80053; 83605; 83735; 85025; 85610; 85730; 81001; 80306; 99285; G0480; 80320

== ENCOUNTER 2022-11-05 13:00 | Emergency (ER) | payer OTHER ==
[2022-11-05 13:13] VITALS: BP 144/80; PULSE 107; RESP 20; TEMP 99.6
[2022-11-05] MEDS ORDERED: DEXAMETHASONE SOD PHOSPHATE 10 MG/ML 1 ML VIAL IVP STA (14:03)
[2022-11-05] MEDS ORDERED: SODIUM CHLORIDE 0.9% 1,000 ML IV STA (14:03)
[2022-11-05] MEDS ORDERED: [UNRECOGNIZED DRUG - OTHER] PO ONE (14:05)
[2022-11-05] MEDS ORDERED: ACET PO ONE (14:05)
[2022-11-05] MEDS ORDERED: LIDO PO ONE (14:05)
[2022-11-05] MEDS ORDERED: RABIES IMM GLOB 300 UNIT/2 ML VIAL IM ONE (14:22)
[2022-11-05] MEDS ORDERED: RABIES VACCINE (PCEC) 2.5 UNIT KIT IM ONE (14:22)
[2022-11-05] MEDS ORDERED: DIPH,PERTUS(ACELL)TETVAC-LF 0.5 ML VIAL IM ONE (14:22)
[2022-11-05] MEDS ORDERED: ONDANSETRON 4 MG/2 ML VIAL IVP STA (14:25)
[2022-11-05] MEDS ORDERED: MAG HYDROX/AL HYDROX/SIMETH 30 ML, LIDOCAINE VISCOUS 2% 30 ML, diphenhydrAMINE ELIXIR 7... PO ONE ×4 (14:45)
--- NOTE | 2022-11-05 14:56 | XR ---
EXAMINATION TYPE: XR chest 2V DATE OF EXAM: 11/05/2022 COMPARISON: NONE TECHNIQUE: PA and lateral views submitted. HISTORY: Chest pain FINDINGS: The lungs are clear and there is no pneumothorax, pleural effusion, or focal pneumonia. Heart size normal and no overt failure. Osseous structures demonstrate hypertrophic and degenerative changes of the spine. Postsurgical changes overlying the cervical spine. Surgical clips in the right upper quadr ant. IMPRESSION: 1. No acute process.
--- NOTE | 2022-11-05 14:57 | XR ---
EXAMINATION TYPE: XR hand complete RT DATE OF EXAM: 11/05/2022 COMPARISON: NONE HISTORY: Pain TECHNIQUE: Three views are submitted. FINDINGS: The osseous structures are intact. The joint spaces are preserved and there is no acute fracture or aneurysm small corticated densities adjacent to the fifth metacarpal which are stable from prior exam and therefore likely chronic. Dislocation. IMPRESSION: 1. No definite acute fracture or dislocation if symptoms persist, follow-up study in 7 to 10 days wo uld be suggested
[2022-11-05 15:24] LABS: Basophils # (A) 0.1 k/uL (0-0.2); Basophils % (A) 1 %; Eosinophils # (A) 0.3 k/uL (0-0.7); Eosinophils % (A) 3 %; HCT 39.3 % (34.0-46.0); Lymphocytes # (A) 2.1 k/uL (1.0-4.8); Lymphocytes % (A) 19 %; MCH 29.6 pg (25.0-35.0); MCV 89.7 fL (80.0-100.0); Monocytes # (A) 0.8 k/uL (0-1.0); Monocytes % (A) 7 %; Neutrophils # (A) 7.6 k/uL (1.3-7.7); Neutrophils % (A) 69 %; Platelet Count 366 k/uL (150-450); RBC 4.38 m/uL (3.80-5.40); RDW 12.8 % (11.5-15.5)
[2022-11-05] MEDS ORDERED: HYDROmorphone 1 MG/ML 1 ML SYRINGE IVP STA (15:35)
--- NOTE | 2022-11-05 15:53 | ED ---
Animal Bite HPI - General Chief Complaint: Animal Bite Stated Complaint: animal bite Time Seen by Provider: 11/05/22 13:21 Source: patient, RN notes reviewed Mode of arrival: ambulatory Limitations: no limitations - History of Present Illness Initial Comments: This is a 52-year-old female who presents to the emergency department for a ferret bite to the right hand and a sore throat. States that 7 days ago, she was petting a ferret in [facility], when one proceeded to bite her. She was told that this ferret did not yet have its rabies vaccine. She went to [place] urgent [facility] on 10/30 and was told to go to the emergency department. She went to [facility] and was started on a course of antibiotics. However, she states that they forgot to give her the tetanus vaccine. She was then instructed by her PCP to come to the emergency department here for the rabies vaccine. States that she has a sore throat that has been going on for about 5 days. States that it is painful to talk and she feels like she is swallowing glass. Denies any fevers, coughing, shortness of breath, chest pain, or congestion. She does have nausea and vomiting but denies any abdominal pain. Denies any fevers, chills, cough, dyspnea, chest pain, palpitations, abdominal pain, diarrhea, back pain, or headaches. MD Complaint: animal bite Onset/Timin -: days(s) Right: Hand Animal: other (Ferret) - Related Data Home Medications Medication Instructions Recorded Confirmed clonazePAM [KlonoPIN] 0.5 mg PO BID PRN 10/23/19 10/23/21 Escitalopram [Lexapro] 20 mg PO DAILY 10/20/20 10/23/21 ARIPiprazole [Abilify] 10 mg PO DAILY 10/23/21 10/23/21 Ergocalciferol [Vitamin D2 (1250 1,250 mcg PO FR 10/23/21 10/23/21 Mcg = 02602 Iu)] HYDROcodone/APAP 7.5-325MG [Houston 1 tab PO Q6H PRN 10/23/21 10/23/21 7.5-325] Lidocaine 5% Oint [Xylocaine 5% 1 applic TOPICAL BID PRN 10/23/21 10/23/21 Oint] Methylphenidate HCl [Ritalin] 20 mg PO DAILY@1200 10/23/21 10/23/21 Methylphenidate HCl [Ritalin] 40 mg PO DAILY 10/23/21 10/23/21 Prazosin [Minipress] 5 mg PO HS 10/23/21 10/23/21 carvediloL [Coreg] 25 mg PO BID 10/23/21 10/23/21 Previous Rx's Medication Instructions Recorded Cyclobenzaprine [Flexeril] 10 mg PO TID PRN #15 tab 10/23/21 predniSONE 50 mg PO DAILY #5 tab 10/23/21 Cefdinir 300 mg PO Q12HR 7 Days #14 cap 07/05/22 [id number] Otic 2 drops LEFT EAR QID 7 Days #10 ml 07/05/22 [Cortisporin Otic Soln] dexAMETHasone [Decadron] 6 mg PO DAILY 7 Days #7 tablet 07/05/22 HYDROcodone/APAP 5-325MG [[place] 1 tab PO Q6HR PRN 3 Days #12 tab 11/05/22 5-325] Metoclopramide [Reglan] 10 mg PO Q6H PRN #20 tab 11/05/22 predniSONE 50 mg PO DAILY 5 Days #5 tablet 11/05/22 Allergies Allergy/AdvReac Type Severity Reaction Status Date / Time ketorolac [From Toradol] Allergy Anaphylaxis Verified 08/08/22 13:10 shellfish derived Allergy Anaphylaxis Verified 08/08/22 13:10 tramadol [From Ultram] Allergy Anaphylaxis Verified 08/08/22 13:10 ibuprofen AdvReac HIVES Verified 08/08/22 13:10 Review of Systems ROS Statement: Those systems with pertinent positive or pertinent negative responses have been documented in the HPI. ROS Other: All systems not noted in ROS Statement are negative. Past Medical History Past Medical History: COPD, GERD/Reflux, Hypertension, Pneumonia Additional Past Medical History / Comment(s): chronic back pain, lumbar degen erative disc disease, insomnia, hx shingles, hiatal hernia, kidney stones. 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, migraines,; NECK PAIN , Last Myocardial Infarction Date:: 08/27/2016 History of Any Multi-Drug Resistant Organisms: MRSA Date of last positivie culture/infection: 09/22/09 MDRO Source:: neck Past Surgical History: Appendectomy, Back Surgery, Section, Cholecystectomy, Orthopedic Surgery Additional Past Surgical History / Comment(s): Cervical spine fusion with insertion of a metal plate, EGD, colonoscopy, radiofrequency ablation, Past Anesthesia/Blood Transfusion Reactions: No Reported Reaction Additional Past Anesthesia/Blood Transfusion Reaction / Comment(s): CLAUSTROPHOBIA Past Psychological History: ADD/ADHD, Anxiety, Panic Disorder Smoking Status: Current every day smoker Past Alcohol Use History: None Reported Past Drug Use History: None Reported - Past Family History Father Family Medical History: Cancer Additional Family Medical History / Comment(s): Father at age 48 from lung cancer. Mother Family Medical History: Congestive Heart Failure (CHF), CVA/TIA Additional Family Medical History / Comment(s): Mother is alive at age 68. She has suffered from a CVA and has chronic back problems. Patient has 2 brothers and 4 sisters with no major medical problems. General Exam Limitations: no limitations General appearance: alert, in no apparent distress Head exam: Present: atraumatic, normocephalic, normal inspection ENT exam: Present: normal oropharynx, mucous membranes moist, TM's normal bilaterally, normal external ear exam Respiratory exam: Present: normal lung sounds bilaterally. Absent: respiratory distress, wheezes, rales, rhonchi, stridor Cardiovascular Exam: Present: regular rate, normal rhythm, normal heart sounds. Absent: systolic murmur, diastolic murmur, rubs, gallop, clicks Extremities exam: Present: other (Well-healed puncture wounds with scabbing to the right thumb and pointer finger. No surrounding erythema, swelling, tenderness, or drainage.) Neurological exam: Present: alert, oriented X3, CN II-XII intact Psychiatric exam: Present: normal affect, normal mood Course Vital Signs 11/05/22 13:10 Temperature 99.6 F Pulse Rate 107 H Respiratory 20 Rate Blood Pressure 144/80 O2 Sat by Pulse 98 Oximetry Medical Decision Making - Medical Decision Making This is a 52-year-old female who presents to the emergency department for a ferret bite and a sore throat. Was pt. sent in by a medical professional or institution? @ -No Did you speak to anyone other than the patient for history? @ -No Did you review nursing and triage notes? @ -Yes, and I agree, it is accurate with regards to the patient's symptoms. Were old charts reviewed? @ -No Differential Diagnosis? @ -Differential Sore Throat: Strep pharyngitis, herpes zoster, COVID, influenza, GERD, allergic rhinitis, mononucleosis, this is not meant to be an all-inclusive list. X-rays interpreted by me (1pt min.)? @ -Chest x-ray obtained, my interpretation identifies no localized consolidations or infiltrates. X-ray of the right hand obtained as well. My interpretation identifies no soft tissue swelling or subcutaneous gas formation. What testing was considered but not performed? (CT, X-rays, U/S, labs)? Why? @ -None What meds were considered but not given? Why? @ -None Did you discuss the management of the patient with other professionals? @ -No Did you reconcile home meds? @ -No Was smoking cessation discussed for >3mins.? @ -No Was critical care preformed (if so, how long)? @ -No Were there social determinants of health that impacted care today? How? (Homelessness, low income, unemployed, alcoholism, drug addiction, transportation, low edu. Level, literacy, decrease access to med. care, long-term, rehab)? @ -No Was there de-escalation of care discussed even if they declined? (Discuss DNR or withdrawal of care, Hospice)? @ -No What co-morbidities impacted this encounter? (DM, HTN, Smoking, COPD, CAD, Cancer, CVA, Hep., AIDS, mental health diagnosis, sleep apnea, morbid obesity)? @ -GERD, HTN, COPD Was patient admitted / discharged? @ -Discharged. Lab work obtained revealing mild leukocytosis and CRP elevation. COVID, influenza, RSV, strep, and heterophile testing negative. Tetanus status was updated. X-ray of the chest and right hand obtained reveali ng no acute findings. The bite wound appears to be healing very well and there is no evidence of infection. Patient was given the rabies vaccine and immunoglobulin and a prescription was provided to have the series continued. Pain and nausea controlled in the emergency department. Prescription for Reglan and prednisone provided for the nausea and ongoing sore throat with associated laryngitis. Undiagnosed new problem with uncertain prognosis? @ -None Drug Therapy requiring intensive monitoring for toxicity (Heparin, Nitro, Insulin, Cardizem)? @ -None Were any procedures done? @ -None Diagnosis/symptom? @ -Animal bite, pharyngitis, nausea Acute, or Chronic, or Acute on Chronic? @ -Acute Uncomplicated (without systemic symptoms) or Complicated (systemic symptoms)? @ -Uncomplicated Side effects of treatment? @ -None Exacerbation, Progression, or Severe Exacerbation] @ -Not applicable Poses a threat to life or bodily function? @ -No Return precautions reviewed in depth, the patient is instructed to return to the emergency department with any new, worsening, or concerning symptoms. Patient verbalized understanding. This case was discussed in detail with the attending ED physician, Dr. Douglas. Presentation, findings, and treatment plan discussed in detail as well. - Lab Data Result diagrams: 11/05/22 15:05 11/05/22 15:05 Lab Results 11/05/22 11/05/22 11/05/22 Range/Units 15:05 15:05 15:05 WBC 11.0 H (3.8-10.6) k/uL RBC 4.38 (3.80-5.40) m/uL Hgb 13.0 (11.4-16.0) gm/dL Hct 39.3 (34.0-46.0) % MCV 89.7 (80.0-100.0) fL MCH 29.6 (25.0-35.0) pg MCHC 33.0 (31.0-37.0) g/dL RDW 12.8 (11.5-15.5) % Plt Count 366 (150-450) k/uL MPV 7.0 Neutrophils % 69 % Lymphocytes % 19 % Monocytes % 7 % Eosinophils % 3 % Basophils % 1 % Neutrophils # 7.6 (1.3-7.7) k/uL Lymphocytes # 2.1 (1.0-4.8) k/uL Monocytes # 0.8 (0-1.0) k/uL Eosinophils # 0.3 (0-0.7) k/uL Basophils # 0.1 (0-0.2) k/uL Sodium 140 (137-145) mmol/L Potassium 4.1 (3.5-5.1) mmol/L Chloride 108 H (98-107) mmol/L Carbon Dioxide 24 (22-30) mmol/L Anion Gap 8 mmol/L BUN 8 (7-17) mg/dL Creatinine 0.83 (0.52-1.04) mg/dL Est GFR (CKD-EPI)AfAm >90 (>60 ml/min/1.73 sqM) Est GFR (CKD-EPI)NonAf 81 (>60 ml/min/1.73 sqM) Glucose 94 (74-99) mg/dL Plasma Lactic Acid Ruben (0.7-2.0) mmol/L Calcium 9.3 (8.4-10.2) mg/dL Total Bilirubin 0.3 (0.2-1.3) mg/dL AST 20 (14-36) U/L ALT 16 (4-34) U/L Alkaline Phosphatase 107 (38-126) U/L C-Reactive Protein 7.1 H (<1.0) mg/dL Total Protein 6.7 (6.3-8.2) g/dL Albumin 3.9 (3.5-5.0) g/dL Heterophile Antibody Negative (Negative) Influenza Type A (PCR) (Not Detectd) Influenza Type B (PCR) (Not Detectd) RSV (PCR) (Not Detectd) SARS-CoV-2 (PCR) (Not Detectd) Group A Strep (PCR) (Not Detectd) 11/05/22 11/05/22 11/05/22 Range/Units 15:05 15:05 15:05 WBC (3.8-10.6) k/uL RBC (3.80-5.40) m/uL Hgb (11.4-16.0) gm/dL Hct (34.0-46.0) % MCV (80.0-100.0) fL MCH (25.0-35.0) pg MCHC (31.0-37.0) g/dL RDW (11.5-15.5) % Plt Count (150-450) k/uL MPV Neutrophils % % Lymphocytes % % Monocytes % % Eosinophils % % Basophils % % Neutrophils # (1.3-7.7) k/uL Lymphocytes # (1.0-4.8) k/uL Monocytes # (0-1.0) k/uL Eosinophils # (0-0.7) k/uL Basophils # (0-0.2) k/uL Sodium (137-145) mmol/L Potassium (3.5-5.1) mmol/L Chloride (98-107) mmol/L Carbon Dioxide (22-30) mmol/L Anion Gap mmol/L BUN (7-17) mg/dL Creatinine (0.52-1.04) mg/dL Est GFR (CKD-EPI)AfAm (>60 ml/min/1.73 sqM) Est GFR (CKD-EPI)NonAf (>60 ml/min/1.73 sqM) Glucose (74-99) mg/dL Plasma Lactic Acid Ruben 0.8 (0.7-2.0) mmol/L Calcium (8.4-10.2) mg/dL Total Bilirubin (0.2-1.3) mg/dL AST (14-36) U/L ALT (4-34) U/L Alkaline Phosphatase (38-126) U/L C-Reactive Protein (<1.0) mg/dL Total Protein (6.3-8.2) g/dL Albumin (3.5-5.0) g/dL Heterophile Antibody (Negative) Influenza Type A (PCR) Not Detected (Not Detectd) Influenza Type B (PCR) Not Detected (Not Detectd) RSV (PCR) Not Detected (Not Detectd) SARS-CoV-2 (PCR) Not Detected (Not Detectd) Group A Strep (PCR) NOT DETECTED (Not Detectd) - Radiology Data Radiology results: report reviewed, image reviewed Disposition Clinical Impression: Bite by animal, Pharyngitis Disposition: HOME SELF-CARE Instructions (If sedation given, give patient instructions): Animal Bite (ED), Pharyngitis (ED) Additional Instructions: Return to the emergency department with any new, worsening, or concerning symptoms. Take the prednisone daily for 5 days. You may take this with Tylenol. Take the [place] sparingly when your pain is the most severe. Follow up with your primary care provider in 1-2 days. Prescriptions: HYDROcodone/APAP 5-325MG [[place] 5-325] 1 tab PO Q6HR PRN 3 Days #12 tab PRN Reason: Pain predniSONE 50 mg PO DAILY 5 Days #5 tablet Metoclopramide [Reglan] 10 mg PO Q6H PRN #20 tab PRN Reason: Nausea And Vomiting Is patient prescribed a controlled substance at d/c from ED?: Yes When asked, does pt state using other controlled substances?: Yes If prescribed controlled substance>3 days was MAPS reviewed?: Prescribed <3 Days Referrals: Estelle Butterfield DO [Primary Care Provider] - 1-2 days
[2022-11-05 15:58] LABS: ALT 16 U/L (4-34); AST 20 U/L (14-36); African American GFR (CKD) >90 (>60 ml/min/1.73 sqM); Albumin 3.9 g/dL (3.5-5.0); Alkaline Phosphatase 107 U/L (38-126); Anion Gap 8 mmol/L; Blood Urea Nitrogen 8 mg/dL (7-17); C Reactive Protein 7.1 mg/dL (<1.0); Calcium 9.3 mg/dL (8.4-10.2); Carbon Dioxide 24 mmol/L (22-30); Chloride 108 mmol/L (98-107); Glucose 94 mg/dL (74-99); Non-African American GFR(CKD) 81 (>60 ml/min/1.73 sqM); Potassium 4.1 mmol/L (3.5-5.1); Sodium 140 mmol/L (137-145); Total Bilirubin 0.3 mg/dL (0.2-1.3); Total Protein 6.7 g/dL (6.3-8.2)
== END 2022-11-05 17:06 | disposition home or self-care (01) ==
LOC: EC 13:00
DX: S61.451A Open bite of right hand, initial encounter (principal); J02.9 Acute pharyngitis, unspecified; I10 Essential (primary) hypertension; J44.9 Chronic obstructive pulmonary disease, unspecified; I25.2 Old myocardial infarction; K21.9 Gastro-esophageal reflux disease without esophagitis; F41.9 Anxiety disorder, unspecified; F17.200 Nicotine dependence, unspecified, uncomplicated; Z20.822 Contact with and (suspected) exposure to COVID-19; Z23 Encounter for immunization; Z79.899 Other long term (current) drug therapy; Z88.5 Allergy status to narcotic agent; Z88.6 Allergy status to analgesic agent; Z88.8 Allergy status to other drugs, medicaments and biological substances; Z91.013 Allergy to seafood; W55.81XA Bitten by other mammals, initial encounter
CPT/HCPCS: 36415; 87651; 80053; 83605; 85025; 86140; 86308; 87636; 73130; 71046; 90675; 90715; 90377; 99284; 96374; 96375 ×2; 96361; 96372; 90471; 90472; J1100; J2405; J1170

== ENCOUNTER 2022-11-16 20:26 | Inpatient (IN) | payer OTHER ==
[2022-11-16 21:01] LABS: Glucose,Whole Blood 111 mg/dL (70-110)
[2022-11-16 21:34] LABS: Basophils # (A) 0.1 k/uL (0-0.2); Basophils % (A) 0 %; Eosinophils # (A) 0.3 k/uL (0-0.7); Eosinophils % (A) 2 %; HGB 12.2 gm/dL (11.4-16.0); Lymphocytes # (A) 1.7 k/uL (1.0-4.8); Lymphocytes % (A) 9 %; MCH 29.9 pg (25.0-35.0); MCHC 31.4 g/dL (31.0-37.0); Mean Platelet Volume 7.6; Monocytes # (A) 1.1 k/uL (0-1.0); Monocytes % (A) 6 %; Neutrophils # (A) 17.1 k/uL (1.3-7.7); Neutrophils % (A) 83 %; Platelet Count 380 k/uL (150-450); RDW 13.1 % (11.5-15.5); WBC 20.6 k/uL (3.8-10.6)
[2022-11-16 21:36] LABS: MCV 95.1 fL (80.0-100.0)
[2022-11-16 21:41] LABS: ALT 15 U/L (4-34); AST 23 U/L (14-36); African American GFR (CKD) 64 (>60 ml/min/1.73 sqM); Albumin 3.6 g/dL (3.5-5.0); Alcohol <10 mg/dL; Alkaline Phosphatase 102 U/L (38-126); Anion Gap 12 mmol/L; Blood Urea Nitrogen 16 mg/dL (7-17); Calcium 8.6 mg/dL (8.4-10.2); Carbon Dioxide 26 mmol/L (22-30); Chloride 95 mmol/L (98-107); Glucose 110 mg/dL (74-99); Non-African American GFR(CKD) 55 (>60 ml/min/1.73 sqM); Potassium 4.5 mmol/L (3.5-5.1); Sodium 133 mmol/L (137-145); Total Bilirubin 0.4 mg/dL (0.2-1.3); Total Protein 6.5 g/dL (6.3-8.2)
[2022-11-16] MEDS ORDERED: ACETAMINOPHEN TAB 325 MG TAB PO STA (21:48)
[2022-11-16] MEDS ORDERED: SODIUM CHLORIDE 0.9% 1,000 ML IV STA (21:48)
[2022-11-16] MEDS ORDERED: SODIUM CHLORIDE 0.9% 1,000 ML IV ONE (21:48)
--- NOTE | 2022-11-16 21:48 | ED ---
Altered Mental Status HPI - General Chief Complaint: Neuro Symptoms/Deficit Stated Complaint: AMS Time Seen by Provider: 11/16/22 21:12 Source: patient, family Mode of arrival: ambulatory Limitations: no limitations - History of Present Illness Initial Comments: This patient is a 52-year-old woman who is here to have evaluation of disorientation and confusion. History comes from both the patient and her partner. They're related that she had gone to the pharmacy today to get some medication for congestion and sore throat. She obtained a nasal spray and Benadryl for her symptoms. She took those and then this evening while she was having dinner she was confused and disoriented. Her partner watched her at home for a while when the symptoms continued she comes here to have evaluation. The patient is denying strokelike symptoms. No change in sensation, or weakness. The patient does note that about 10 days ago she had been seen for a ferret bite and states she had been given a course of antibiotics which she has finished now. The patient does complain of having sore throat and congestion. There is a little bit of cough. She has not noted chest pain or dyspnea. No change in urination or bowel movements. No neck stiffness or headache. MD Complaint: confusion -: hour(s) Severity: moderate Context: change in medication Associated Symptoms: cough - Related Data Home Medications Medication Instructions Recorded Confirmed clonazePAM [KlonoPIN] 0.5 mg PO BID PRN 10/23/19 11/17/22 Escitalopram [Lexapro] 20 mg PO DAILY 10/20/20 11/17/22 Methylphenidate HCl [Ritalin] 20 mg PO DAILY@1200 10/23/21 11/17/22 Methylphenidate HCl [Ritalin] 40 mg PO DAILY 10/23/21 11/17/22 Prazosin [Minipress] 5 mg PO HS 10/23/21 11/17/22 ARIPiprazole [Abilify] 20 mg PO DAILY 11/17/22 11/17/22 Gabapentin [Neurontin] 800 mg PO Q8H 11/17/22 11/17/22 hydrOXYzine pamoate 50 mg PO TID PRN 11/17/22 11/17/22 Allergies Allergy/AdvReac Type Severity Reaction Status Date / Time ketorolac [From Toradol] Allergy Anaphylaxis Verified 08/08/22 13:10 shellfish derived Allergy Anaphylaxis Verified 08/08/22 13:10 tramadol [From Ultram] Allergy Anaphylaxis Verified 08/08/22 13:10 ibuprofen AdvReac HIVES Verified 08/08/22 13:10 Review of Systems ROS Statement: Those systems with pertinent positive or pertinent negative responses have been documented in the HPI. ROS Other: All systems not noted in ROS Statement are negative. Limitations: ROS unobtainable due to patients medical condition Respiratory: Denies: cough, dyspnea Cardiovascular: Denies: chest pain, palpitations Gastrointestinal: Denies: abdominal pain, vomiting, diarrhea Genitourinary: Denies: dysuria Skin: Denies: rash Neurological: Denies: headache, weakness Past Medical History Past Medical History: COPD, GERD/Reflux, Hypertension, Pneumonia Additional Past Medical History / Comment(s): chronic back pain, lumbar degenerative disc disease, insomnia, hx shingles, hiatal hernia, kidney stones. 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, migraines,; NECK PAIN , Last Myocardial Infarction Date:: 08/27/2016 History of Any Multi-Drug Resistant Organisms: MRSA Date of last positivie culture/infection: 09/22/09 MDRO Source:: neck Past Surgical History: Appendectomy, Back Surgery, Section, Cholecystectomy, Orthopedic Surgery Additional Past Surgical History / Comment(s): Cervical spine fusion with insertion of a metal plate, EGD, colonoscopy, radiofrequency ablation, Past Anesthesia/Blood Transfusion Reactions: No Reported Reaction Additional Past Anesthesia/Blood Transfusion Reaction / Comment(s): CLAUSTROPHOBIA Past Psychological History: ADD/ADHD, Anxiety, Panic Disorder Smoking Status: Current every day smoker Past Alcohol Use History: None Reported Past Drug Use History: None Reported - Past Family History Father Family Medical History: Cancer Additional Family Medical History / Comment(s): Father at age 48 from lung cancer. Mother Family Medical History: Congestive Heart Failure (CHF), CVA/TIA Additional Family Medical History / Comment(s): Mother is alive at age 68. She has suffered from a CVA and has chronic back problems. Patient has 2 brothers and 4 sisters with no major medical problems. General Exam Limitations: no limitations General appearance: alert, in no apparent distress Head exam: Present: atraumatic, normocephalic Eye exam: Present: normal appearance, PERRL, EOMI. Absent: scleral icterus, conjunctival injection ENT exam: Present: mucous membranes dry Neck exam: Present: normal inspection, full ROM. Absent: meningismus Respiratory exam: Present: wheezes. Absent: respiratory distress, rales, rhonch i, stridor Cardiovascular Exam: Present: regular rate, normal rhythm, normal heart sounds. Absent: systolic murmur, diastolic murmur, rubs, gallop GI/Abdominal exam: Present: soft. Absent: distended, tenderness, guarding, rebound, rigid, mass Extremities exam: Present: normal inspection, normal capillary refill. Absent: pedal edema, calf tenderness Back exam: Present: normal inspection. Absent: CVA tenderness (R), CVA tenderness (L) Neurological exam: Present: alert, oriented X3, CN II-XII intact. Absent: motor sensory deficit Skin exam: Present: warm, dry, intact, normal color. Absent: rash Course Vital Signs 11/16/22 11/16/22 11/16/22 20:29 22:04 23:35 Temperature 102.6 F H Pulse Rate 105 H 100 97 Respiratory 20 18 18 Rate Blood Pressure 120/73 101/62 105/77 O2 Sat by Pulse 92 L 93 L 95 Oximetry 11/17/22 11/17/22 11/17/22 00:00 00:04 01:00 Temperature 99 F Pulse Rate 96 90 Respiratory 16 16 Rate Blood Pressure 105/77 92/65 O2 Sat by Pulse 95 91 L Oximetry 11/17/22 11/17/22 11/17/22 02:00 03:00 06:12 Temperature 99.7 F H Pulse Rate 90 80 83 Respiratory 16 16 20 Rate Blood Pressure 90/63 97/69 97/56 O2 Sat by Pulse 95 96 93 L Oximetry 11/17/22 11/17/22 11/17/22 08:00 08:13 08:26 Temperature Pulse Rate 85 84 Respiratory 18 Rate Blood Pressure O2 Sat by Pulse Oximetry Medical Decision Making - Medical Decision Making This patient is a 52-year-old woman brought to have evaluation for altered men mago status. The patient's recent history also notable for having persistent sore throat and difficulty swallowing and also having had recent ferret bite to the hand. The workup here includes a chest x-ray which does show extensive bilateral infiltrates as interpreted by myself and the patient will be admitted for pneumonia. Review does reveal that the patient did have computed tomography scan of the neck at and of March, and will hold additional imaging of that for today. She is being treated antibiotics and will see if that produces some improvement in her throat symptoms as well. The patient is admitted with pulmonology consultation. Note that her mental status has improved here since starting fluids and medications. Was pt. sent in by a medical professional or institution ([facility], [employer], urgent care, hospital, or intermediate...) When possible be specific @ -[No] Did you speak to anyone other than the patient for history (EMS, parent, family, police, friend...)? What history was obtained from this source @ -[Family member at bedside Did you review nursing and triage notes (agree or disagree)? Why? @ -[I reviewed and agree with nursing and triage notes] Were old charts reviewed (outside hosp., previous admission, EMS record, old EKG, old radiological studies, urgent care reports/EKG's, intermediate records)? Report findings @ -[old charts were reviewed] Differential Diagnosis (chest pain, altered mental status, abdominal pain women, abdominal pain men, vaginal bleeding, weakness, fever, dyspnea, syncope, headache, dizziness, GI bleed, back pain, seizure, CVA, palpatations, mental health, musculoskeletal)? @ -[Differential Altered Mental Status: Hypoglycemia, DKA, hypercapnia, ETOH, overdose, CO poisoning, trauma, myxedema coma, HTN encephalopathy, infection, encephalitis, psychosis, intercranial hemorrhage, hepatic encephalopathy, meningitis, CVA, this is not meant to be an all-inclusive list EKG interpreted by me (3pts min.). @ -[As above] X-rays interpreted by me (1pt min.). @ -[As above CT interpreted by me (1pt min.). @ -[None done] U/S interpreted by me (1pt. min.). @ -[None done] What testing was considered but not performed or refused? (CT, X-rays, U/S, labs)? Why? @ -[Computed tomography scan of the neck was considered but this had been recently obtained, will see if patient has response to medication or if this needs to be repeated What meds were considered but not given or refused? Why? @ -[None] Did you discuss the management of the patient with other professionals (professionals i.e. Dr., PA, [employer], lab, RT, psych nurse, geriatric social worker, sky diver, teacher, building drafting officer, case assembler)? Give summary @ -[No] Was smoking cessation discussed for >3mins.? @ -[No] Was critical care preformed (if so, how long)? @ -[No] Were there social determinants of health that impacted care today? How? (Homelessness, low income, unemployed, alcoholism, drug addiction, transportation, low edu. Level, literacy, decrease access to med. care, [facility], rehab)? @ -[No] Was there de-escalation of care discussed even if they declined (Discuss DNR or withdrawal of care, Hospice)? DNR status @ -[No] What co-morbidities impacted this encounter? (DM, HTN, Smoking, COPD, CAD, Cancer, CVA, ARF, Chemo, Hep., AIDS, mental health diagnosis, sleep apnea, morbid obesity)? @ -[None] Was patient admitted / discharged? Hospital course, mention meds given and route, prescriptions, significant lab abnormalities, going to OR and other pertinent info. @ -[Patient is admitted to have additional antibiotic and fluid as well Undiagnosed new problem with uncertain prognosis? @ -[No] Drug Therapy requiring intensive monitoring for toxicity (Heparin, Nitro, Insulin, Cardizem)? @ -[No] Were any procedures done? @ -[No] Diagnosis/symptom? @ -[Acute pneumonia Acute delirium Acute, or Chronic, or Acute on Chronic? @ -[default] Uncomplicated (without systemic symptoms) or Complicated (systemic symptoms)? @ -[Pneumonia is complicated Side effects of treatment? @ -[No] Exacerbation, Progression, or Severe Exacerbation? @ -[No] Poses a threat to life or bodily function? How? (Chest pain, [place], [place], pneumonia, PE, COPD, DKA, ARF, appy, cholecystitis, CVA, Diverticulitis, Homicidal, Suicidal, threat to staff... and all critical care pts) @ -[Yes - Lab Data Result diagrams: 11/18/22 06:27 11/18/22 06:27 Lab Results 11/16/22 11/16/22 11/16/22 Range/Units 00:02 20:59 20:59 WBC 20.6 H (3.8-10.6) k/uL RBC 4.10 (3.80-5.40) m/uL Hgb 12.2 (11.4-16.0) gm/dL Hct 39.0 (34.0-46.0) % MCV 95.1 D (80.0-100.0) fL MCH 29.9 (25.0-35.0) pg MCHC 31.4 (31.0-37.0) g/dL RDW 13.1 (11.5-15.5) % Plt Count 380 (150-450) k/uL MPV 7.6 Neutrophils % 83 % Lymphocytes % 9 % Monocytes % 6 % Eosinophils % 2 % Basophils % 0 % Neutrophils # 17.1 H (1.3-7.7) k/uL Lymphocytes # 1.7 (1.0-4.8) k/uL Monocytes # 1.1 H (0-1.0) k/uL Eosinophils # 0.3 (0-0.7) k/uL Basophils # 0.1 (0-0.2) k/uL PT (9.0-12.0) sec INR (<1.2) APTT (22.0-30.0) sec Sodium (137-145) mmol/L Potassium (3.5-5.1) mmol/L Chloride (98-107) mmol/L Carbon Dioxide (22-30) mmol/L Anion Gap mmol/L BUN (7-17) mg/dL Creatinine (0.52-1.04) mg/dL Est GFR (CKD-EPI)AfAm (>60 ml/min/1.73 sqM) Est GFR (CKD-EPI)NonAf (>60 ml/min/1.73 sqM) Glucose (74-99) mg/dL POC Glucose (mg/dL) 111 H (70-110) mg/dL POC Glu Siphoner ID Rolly Montaño Calcium (8.4-10.2) mg/dL Total Bilirubin (0.2-1.3) mg/dL AST (14-36) U/L ALT (4-34) U/L Alkaline Phosphatase (38-126) U/L Ammonia (<30) umol/L Troponin I (0.000-0.034) ng/mL Total Protein (6.3-8.2) g/dL Albumin (3.5-5.0) g/dL Urine Color Urine Appearance (Clear) Urine pH (5.0-8.0) Ur Specific [place] (1.001-1.035) Urine Protein (Negative) Urine Glucose (UA) (Negative) Urine Ketones (Negative) Urine Blood (Negative) Urine Nitrite (Negative) Urine Bilirubin (Negative) Urine Urobilinogen (<2.0) mg/dL Ur Leukocyte Esterase (Negative) Urine RBC (0-5) /hpf Urine WBC (0-5) /hpf Ur Squamous Epith Cells (0-4) /hpf Urine Opiates Screen (NotDetected) Ur Oxycodone Screen (NotDetected) Urine Methadone Screen (NotDetected) Ur Propoxyphene Screen (NotDetected) Ur Barbiturates Screen (NotDetected) U Tricyclic Antidepress (NotDetected) Ur Phencyclidine Scrn (NotDetected) Ur Amphetamines Screen (NotDetected) U Methamphetamines Scrn (NotDetected) U Benzodiazepines Scrn (NotDetected) Urine Cocaine Screen (NotDetected) U Marijuana (THC) Screen (NotDetected) Serum Alcohol mg/dL Influenza Type A (PCR) (Not Detectd) Influenza Type B (PCR) (Not Detectd) Legionella Source Urine Urine Legionella Ag Negative (Negative) RSV (PCR) (Not Detectd) SARS-CoV-2 (PCR) (Not Detectd) 11/16/22 11/16/22 11/16/22 Range/Units 20:59 20:59 20:59 WBC (3.8-10.6) k/uL RBC (3.80-5.40) m/uL Hgb (11.4-16.0) gm/dL Hct (34.0-46.0) % MCV (80.0-100.0) fL MCH (25.0-35.0) pg MCHC (31.0-37.0) g/dL RDW (11.5-15.5) % Plt Count (150-450) k/uL MPV Neutrophils % % Lymphocytes % % Monocytes % % Eosinophils % % Basophils % % Neutrophils # (1.3-7.7) k/uL Lymphocytes # (1.0-4.8) k/uL Monocytes # (0-1.0) k/uL Eosinophils # (0-0.7) k/uL Basophils # (0-0.2) k/uL PT 9.8 (9.0-12.0) sec INR 0.9 (<1.2) APTT 28.4 (22.0-30.0) sec Sodium 133 L (137-145) mmol/L Potassium 4.5 (3.5-5.1) mmol/L Chloride 95 L (98-107) mmol/L Carbon Dioxide 26 (22-30) mmol/L Anion Gap 12 mmol/L BUN 16 (7-17) mg/dL Creatinine 1.13 H (0.52-1.04) mg/dL Est GFR (CKD-EPI)AfAm 64 (>60 ml/min/1.73 sqM) Est GFR (CKD-EPI)NonAf 55 (>60 ml/min/1.73 sqM) Glucose 110 H (74-99) mg/dL POC Glucose (mg/dL) (70-110) mg/dL POC Glu Siphoner ID Calcium 8.6 (8.4-10.2) mg/dL Total Bilirubin 0.4 (0.2-1.3) mg/dL AST 23 (14-36) U/L ALT 15 (4-34) U/L Alkaline Phosphatase 102 (38-126) U/L Ammonia 13 (<30) umol/L Troponin I (0.000-0.034) ng/mL Total Protein 6.5 (6.3-8.2) g/dL Albumin 3.6 (3.5-5.0) g/dL Urine Color Urine Appearance (Clear) Urine pH (5.0-8.0) Ur Specific [place] (1.001-1.035) Urine Protein (Negative) Urine Glucose (UA) (Negative) Urine Ketones (Negative) Urine Blood (Negative) Urine Nitrite (Negative) Urine Bilirubin (Negative) Urine Urobilinogen (<2.0) mg/dL Ur Leukocyte Esterase (Negative) Urine RBC (0-5) /hpf Urine WBC (0-5) /hpf Ur Squamous Epith Cells (0-4) /hpf Urine Opiates Screen (NotDetected) Ur Oxycodone Screen (NotDetected) Urine Methadone Screen (NotDetected) Ur Propoxyphene Screen (NotDetected) Ur Barbiturates Screen (NotDetected) U Tricyclic Antidepress (NotDetected) Ur Phencyclidine Scrn (NotDetected) Ur Amphetamines Screen (NotDetected) U Methamphetamines Scrn (NotDetected) U Benzodiazepines Scrn (NotDetected) Urine Cocaine Screen (NotDetected) U Marijuana (THC) Screen (NotDetected) Serum Alcohol <10 mg/dL Influenza Type A (PCR) (Not Detectd) Influenza Type B (PCR) (Not Detectd) Legionella Source Urine Legionella Ag (Negative) RSV (PCR) (Not Detectd) SARS-CoV-2 (PCR) (Not Detectd) 11/16/22 11/16/22 11/16/22 Range/Units 20:59 21:38 22:43 WBC (3.8-10.6) k/uL RBC (3.80-5.40) m/uL Hgb (11.4-16.0) gm/dL Hct (34.0-46.0) % MCV (80.0-100.0) fL MCH (25.0-35.0) pg MCHC (31.0-37.0) g/dL RDW (11.5-15.5) % Plt Count (150-450) k/uL MPV Neutrophils % % Lymphocytes % % Monocytes % % Eosinophils % % Basophils % % Neutrophils # (1.3-7.7) k/uL Lymphocytes # (1.0-4.8) k/uL Monocytes # (0-1.0) k/uL Eosinophils # (0-0.7) k/uL Basophils # (0-0.2) k/uL PT (9.0-12.0) sec INR (<1.2) APTT (22.0-30.0) sec Sodium (137-145) mmol/L Potassium (3.5-5.1) mmol/L Chloride (98-107) mmol/L Carbon Dioxide (22-30) mmol/L Anion Gap mmol/L BUN (7-17) mg/dL Creatinine (0.52-1.04) mg/dL Est GFR (CKD-EPI)AfAm (>60 ml/min/1.73 sqM) Est GFR (CKD-EPI)NonAf (>60 ml/min/1.73 sqM) Glucose (74-99) mg/dL POC Glucose (mg/dL) (70-110) mg/dL POC Glu Siphoner ID Calcium (8.4-10.2) mg/dL Total Bilirubin (0.2-1.3) mg/dL AST (14-36) U/L ALT (4-34) U/L Alkaline Phosphatase (38-126) U/L Ammonia (<30) umol/L Troponin I <0.012 (0.000-0.034) ng/mL Total Protein (6.3-8.2) g/dL Albumin (3.5-5.0) g/dL Urine Color Light Yellow Urine Appearance Clear (Clear) Urine pH 7.0 (5.0-8.0) Ur Specific [place] 1.007 (1.001-1.035) Urine Protein Trace H (Negative) Urine Glucose (UA) Negative (Negative) Urine Ketones Negative (Negative) Urine Blood Small H (Negative) Urine Nitrite Negative (Negative) Urine Bilirubin Negative (Negative) Urine Urobilinogen <2.0 (<2.0) mg/dL Ur Leukocyte Esterase Moderate H (Negative) Urine RBC 2 (0-5) /hpf Urine WBC 35 H (0-5) /hpf Ur Squamous Epith Cells 1 (0-4) /hpf Urine Opiates Screen Not Detected (NotDetected) Ur Oxycodone Screen Not Detected (NotDetected) Urine Methadone Screen Not Detected (NotDetected) Ur Propoxyphene Screen Not Detected (NotDetected) Ur Barbiturates Screen Not Detected (NotDetected) U Tricyclic Antidepress Not Detected (NotDetected) Ur Phencyclidine Scrn Not Detected (NotDetected) Ur Amphetamines Screen Not Detected (NotDetected) U Methamphetamines Scrn Not Detected (NotDetected) U Benzodiazepines Scrn Detected H (NotDetected) Urine Cocaine Screen Not Detected (NotDetected) U Marijuana (THC) Screen Not Detected (NotDetected) Serum Alcohol mg/dL Influenza Type A (PCR) Not Detected (Not Detectd) Influenza Type B (PCR) Not Detected (Not Detectd) Legionella Source Urine Legionella Ag (Negative) RSV (PCR) Not Detected (Not Detectd) SARS-CoV-2 (PCR) Not Detected (Not Detectd) - EKG Data -: EKG Interpreted by Me EKG shows normal: sinus rhythm, axis (Normal), intervals (Normal) Rate: normal (Rate 76 bpm) Disposition Clinical Impression: Pneumonia, Delirium Disposition: ADMITTED IP TO THIS HOSP Condition: Stable Is patient prescribed a controlled substance at d/c from ED?: No
--- NOTE | 2022-11-16 22:05 | XR ---
EXAMINATION TYPE: XR chest 2V DATE OF EXAM: 11/16/2022 COMPARISON: Chest x-ray 11 days ago HISTORY: Altered mental status. Clear cough and fever. TECHNIQUE: Frontal and lateral views of the chest are obtained. FINDINGS: Postsurgical change to the lower cervical spine is redemonstrated. Cardiac silhouette size stable within normal limits. Cholecystectomy clips are redemonstrated on lateral view. Chronic parenchymal changes within the bila teral multifocal increased opacities. No pleural effusion or pneumothorax seen bilaterally. IMPRESSION: There are new Bilateral multifocal increased opacities. Correlate to exclude covid-19 in fection.
[2022-11-16 22:13] LABS: INR 0.9 (<1.2); Partial Thromboplastin Time 28.4 sec (22.0-30.0); Prothrombin Time 9.8 sec (9.0-12.0)
[2022-11-16] MEDS ORDERED: MORPHINE SULFATE 4 MG/ML SYRINGE IV STA (22:35)
--- NOTE | 2022-11-16 23:08 | CT ---
EXAMINATION TYPE: CT brain wo con DATE OF EXAM: 11/16/2022 HISTORY: AMS. Confused. Disoriented. CT DLP: 1123.5 mGycm. Automated Exposure Control for Dose Reduction was Utilized. TECHNIQUE: CT scan of the head is performed without contrast. COMPARISON: Prior CT May 02, 2019. FINDINGS: There is no acute intracranial hemorrhage or midline shift identified. Ventricles and sul ci are within normal limits in size for patient's age. Amor-white matter differentiation is maintaine d. The globes are intact and the visualized sinuses are clear. IMPRESSION: No acute intracranial hemorrhage or midline shift. No significant change from prior.
[2022-11-16] MEDS ORDERED: PNEUMONIA PROTOCOL UTILIZED 1 EACH MISC PO PRN (23:21)
[2022-11-16] MEDS ORDERED: ALBUTEROL NEBULIZED 2.5 MG/3 ML INHALATION PRN (23:21)
[2022-11-16] MEDS ORDERED: ACETAMINOPHEN TAB 325 MG TAB PO PRN (23:21)
[2022-11-16] MEDS ORDERED: AZITHROMYCIN 500 MG in SODIUM CHLORIDE 0.9% 250 ML IVPB STA (23:21)
[2022-11-16 23:50] LABS: Appearance,Urine Clear (Clear); Bilirubin,Urine Negative (Negative); Blood,Urine Small (Negative); Color,Urine Light Yellow; Glucose,Urine (UA) Negative (Negative); Ketones,Urine Negative (Negative); Leukocyte Esterase,Urine Moderate (Negative); Nitrite,Urine Negative (Negative); Protein,Urine Trace (Negative); RBC,Urine 2 /hpf (0-5); Specific Gravity,Urine 1.007 (1.001-1.035); Squamous Epithelial Cell,Urine 1 /hpf (0-4); Urobilinogen,Urine <2.0 mg/dL (<2.0); WBC,Urine 35 /hpf (0-5)
[2022-11-16 23:52] LABS: Amphetamine Screen,Urine Not Detected (NotDetected); Barbiturate Screen,Urine Not Detected (NotDetected); Benzodiazepines Screen,Urine Detected (NotDetected); Cocaine Screen,Urine Not Detected (NotDetected); Methadone Screen, Urine Not Detected (NotDetected); Opiate Screen,Urine Not Detected (NotDetected); Oxycodone Screen, Urine Not Detected (NotDetected); Phencyclidine Screen,Urine Not Detected (NotDetected); Tricyclic Antidepressant,Urine Not Detected (NotDetected); Urn Cannabinoid Scrn Not Detected (NotDetected)
[2022-11-17] MEDS ORDERED: MORPHINE SULFATE 4 MG/ML SYRINGE IV STA (00:54)
--- NOTE | 2022-11-17 04:41 | P.HPIM ---
History of Present Illness H&P Date: 11/17/22 The patient is a 52-year-old female with a PMH of COPD and hypertension who was brought to the emergency room by family for confusion. The patient reports that she had been battling an upper respiratory infection with sore throat and nasal congestion over the past several months. She states that she went to a local pharmacy and obtained Benadryl and nasal spray which she then proceeded to take until earlier tonight. The patient states that she felt disoriented and was very confused that as per her partner was subsequently brought into the emergency room. She reports feeling at her baseline of the time of interview but does report the URI symptoms that she has been battling for the past 2-3 months. She reports a nonproductive cough as well as a sore throat. She denies chest discomfort or shortness of breath. Denies nausea, vomiting or palpitations. Denied weakness, numbness, tingling. Denied neck stiffness, headaches, visual disturbances, speech impairments, or gait abnormalities. The patient underwent an extensive evaluation in the emergency room with a chest x-ray showing new bilateral multifocal increased opacities. CT brain was unremarkable. EKG revealed sinus rhythm with APCs at 76 bpm. Laboratory evaluation revealed leukocytosis of 20.6, sodium 133, chloride 95, creatinine 1.13, glucose 110, troponin less than 0.012, with urine toxicology positive for benzodiazepines. ED documentation reviewed and case discussed with ED provider. Review of systems: Pertinent positives and negatives as discussed in HPI, a complete review of systems was performed and all other systems are negative. Physical examination: Vital signs reviewed General: non toxic, no distress, appears at stated age, normal weight Derm: no unusual rashes/lesions, warm Head: atraumatic, normocephalic, symmetric Eyes: EOMI, no lid lag, anicteric sclera, pupils equal round reactive to light ENT: Nose and ears atraumatic Neck: No cervical lymphadenopathy, trachea midline, supple Mouth: no lip lesion, mucus membranes moist Cardiovascular: S1S2 reg, no murmur, positive dorsalis pedis pulse bilateral, no edema Lungs: CTA bilateral, no rhonchi, no rales, no accessory muscle use Abdominal: soft, nontender to palpation, no guarding Ext: muscle strength 5 out of 5 in all 4 extremities grossly, no gross muscle atrophy, no contractures, Neuro: CN II-XI grossly intact, no gross focal neuro deficits Psych: Alert, oriented, appropriate affect Assessment: Delirium, likely due to anticholinergic medications, now resolved Acute hypoxic respiratory failure Community acquired pneumonia Acute kidney injury Imaging: Chest x-ray showed new bilateral multifocal increased opacities. CT brain was unremarkable. EKG revealed sinus rhythm with APCs at 76 bpm. Data Review: Laboratory evaluation revealed leukocytosis of 20.6, sodium 133, chloride 95, creatinine 1.13, glucose 110, troponin less than 0.012, with urine toxicology positive for benzodiazepines. Plan: Continue with azithromycin and ceftriaxone IV Supplemental oxygen Follow-up Legionella antigen testing IV fluids DVT prophylaxis: Lovenox subcu The patient is admitted with an anticipated greater than 2 midnight stay for evaluation of delirium CODE STATUS: Full Code Discussed with: Patient Anticipated discharge place: Home Past Medical History Past Medical History: COPD, GERD/Reflux, Hypertension, Pneumonia Additional Past Medical History / Comment(s): chronic back pain, lumbar degenerative disc disease, insomnia, hx shingles, hiatal hernia, kidney stones. 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, migraines,; NECK PAIN , Last Myocardial Infarction Date:: 08/27/2016 History of Any Multi-Drug Resistant Organisms: MRSA Date of last positivie culture/infection: 09/22/09 MDRO Source:: neck Past Surgical History: Appendectomy, Back Surgery, Section, Cholecystectomy, Orthopedic Surgery Additional Past Surgical History / Comment(s): Cervical spine fusion with insertion of a metal plate, EGD, colonoscopy, radiofrequency ablation, Past Anesthesia/Blood Transfusion Reactions: No Reported Reaction Additional Past Anesthesia/Blood Transfusion Reaction / Comment(s): CLAUSTROPHOBIA Past Psychological History: ADD/ADHD, Anxiety, Panic Disorder Smoking Status: Current every day smoker Past Alcohol Use History: None Reported Past Drug Use History: None Reported - Past Family History Father Family Medical History: Cancer Additional Family Medical History / Comment(s): Father at age 48 from lung cancer. Mother Family Medical History: Congestive Heart Failure (CHF), CVA/TIA Additional Family Medical History / Comment(s): Mother is alive at age 68. She has suffered from a CVA and has chronic back problems. Patient has 2 brothers and 4 sisters with no major medical problems. Medications and Allergies Home Medications Medication Instructions Recorded Confirmed Type clonazePAM [KlonoPIN] 0.5 mg PO BID PRN 10/23/19 10/23/21 History Escitalopram [Lexapro] 20 mg PO DAILY 10/20/20 10/23/21 History ARIPiprazole [Abilify] 10 mg PO DAILY 10/23/21 10/23/21 History Cyclobenzaprine [Flexeril] 10 mg PO TID PRN #15 tab 10/23/21 Rx Ergocalciferol [Vitamin D2 (1250 1,250 mcg PO FR 10/23/21 10/23/21 History Mcg = 92674 Iu)] HYDROcodone/APAP 7.5-325MG [[place] 1 tab PO Q6H PRN 10/23/21 10/23/21 History 7.5-325] Lidocaine 5% Oint [Xylocaine 5% 1 applic TOPICAL BID PRN 10/23/21 10/23/21 History Oint] Methylphenidate HCl [Ritalin] 20 mg PO DAILY@1200 10/23/21 10/23/21 History Methylphenidate HCl [Ritalin] 40 mg PO DAILY 10/23/21 10/23/21 History Prazosin [Minipress] 5 mg PO HS 10/23/21 10/23/21 History carvediloL [Coreg] 25 mg PO BID 10/23/21 10/23/21 History predniSONE 50 mg PO DAILY #5 tab 10/23/21 Rx Cefdinir 300 mg PO Q12HR 7 Days #14 cap 07/05/22 Rx Ucxxwuoq-[id number]-Nj Otic 2 drops LEFT EAR QID 7 Days #10 ml 07/05/22 Rx [Cortisporin Otic Soln] dexAMETHasone [Decadron] 6 mg PO DAILY 7 Days #7 tablet 07/05/22 Rx HYDROcodone/APAP 5-325MG [[place] 1 tab PO Q6HR PRN 3 Days #12 tab 11/05/22 Rx 5-325] Metoclopramide [Reglan] 10 mg PO Q6H PRN #20 tab 11/05/22 Rx predniSONE 50 mg PO DAILY 5 Days #5 tablet 11/05/22 Rx Allergies Allergy/AdvReac Type Severity Reaction Status Date / Time ketorolac [From Toradol] Allergy Anaphylaxis Verified 08/08/22 13:10 shellfish derived Allergy Anaphylaxis Verified 08/08/22 13:10 tramadol [From Ultram] Allergy Anaphylaxis Verified 08/08/22 13:10 ibuprofen AdvReac HIVES Verified 08/08/22 13:10 Physical Exam Vitals: Vital Signs Temp Pulse Resp BP Pulse Ox 11/17/22 00:04 99 F 11/16/22 23:35 97 18 105/77 95 11/16/22 22:04 100 18 101/62 93 L 11/16/22 20:29 102.6 F H 105 H 20 120/73 92 L Intake and Output 11/16/22 11/16/22 11/17/22 14:59 22:59 06:59 Other: Weight 64.41 kg Results CBC & Chem 7: 11/16/22 20:59 11/16/22 20:59 Labs: Abnormal Lab Results - Last 24 Hours (Table) 11/16/22 11/16/22 11/16/22 Range/Units 20:59 20:59 20:59 WBC 20.6 H (3.8-10.6) k/uL Neutrophils # 17.1 H (1.3-7.7) k/uL Monocytes # 1.1 H (0-1.0) k/uL Sodium 133 L (137-145) mmol/L Chloride 95 L (98-107) mmol/L Creatinine 1.13 H (0.52-1.04) mg/dL Glucose 110 H (74-99) mg/dL POC Glucose (mg/dL) 111 H (70-110) mg/dL Urine Protein (Negative) Urine Blood (Negative) Ur Leukocyte Esterase (Negative) Urine WBC (0-5) /hpf U Benzodiazepines Scrn (NotDetected) 11/16/22 Range/Units 22:43 WBC (3.8-10.6) k/uL Neutrophils # (1.3-7.7) k/uL Monocytes # (0-1.0) k/uL Sodium (137-145) mmol/L Chloride (98-107) mmol/L Creatinine (0.52-1.04) mg/dL Glucose (74-99) mg/dL POC Glucose (mg/dL) (70-110) mg/dL Urine Protein Trace H (Negative) Urine Blood Small H (Negative) Ur Leukocyte Esterase Moderate H (Negative) Urine WBC 35 H (0-5) /hpf U Benzodiazepines Scrn Detected H (NotDetected)
[2022-11-17] MEDS ORDERED: CYCLOBENZAPRINE 10 MG TAB PO PRN (06:17)
[2022-11-17] MEDS ORDERED: HYDROcodone/APAP 5-325MG 1 EACH TAB PO PRN (06:17)
[2022-11-17] MEDS: clonazePAM 0.5 MG TAB PO PRN ×2 (06:22→10:38)
[2022-11-17] MEDS ORDERED: carvediloL 12.5 MG TAB PO SCH (07:30)
[2022-11-17] MEDS ORDERED: hydrOXYzine pamoate 25 MG CAP PO PRN (08:03)
[2022-11-17] MEDS ORDERED: BENZOCAINE/MENTHOL LOZENG 1 EACH LOZENGE MUCOUS MEM PRN ×2 (08:10→08:11)
[2022-11-17] MEDS: IPRATROPIUM-ALBUTEROL 3 ML NEB INHALATION SCH ×4 (08:13→20:40)
[2022-11-17] MEDS ORDERED: AZITHROMYCIN 500 MG TAB PO SCH (09:00)
[2022-11-17] MEDS ORDERED: ARIPiprazole 10 MG TAB PO SCH (09:00)
[2022-11-17] MEDS: GABAPENTIN 400 MG CAP PO SCH ×2 (09:09→17:17)
--- NOTE | 2022-11-17 09:27 | CT ---
EXAMINATION TYPE: CT neck chest w con DATE OF EXAM: 11/17/2022 COMPARISON: Cervical spine 10/23/2021 and chest 10/21/2020 HISTORY: 52-year-old female with throat pain and congestion CONGESTION for 2 to 3 months. Diagnosed w ith pneumonia recently. TECHNIQUE: Contiguous axial scanning of the soft tissues of the neck and chest performed with IV Cont rast, patient injected with 100 mL of Isovue 300. Coronal/sagittal reconstructions performed. CT DLP: 733.4 mGycm Automated exposure control for dose reduction was used. FINDINGS: NECK: Visualized intracranial structures show no gross abnormality. Orbits and globes, paranasal sinuses, a nd mastoid air cells are largely clear. Leftward nasal septal deviation. There is mild hypertrophy of the adenoid soft tissues. Mild to moderate hypertrophy of the bilateral palatine tonsils. Mild hypertrophy of the bilateral lingual tonsils. Epiglottis and prevertebral soft tissues are satisfactory. There is thickening along the bilateral aryepiglottic folds, slightly more so on the left. There is c ircumferential narrowing at the level of the false cords and a 1.1 cm polypoid mucosal space lesion a rising from the anterior midline near the level of the true cords. Remainder of the tracheal column is clear. The thyroid, some annular, and parotid glands are satisfactory. Scattered nonenlarged lymph nodes on both sides of the neck measuring up to 8 mm short axis. No cervi chio lymphadenopathy by size criteria. Bones: Patient status post C5-C6 ACDF. CHEST: Heart normal size without pericardial effusion. Scattered LAD and circumflex coronary artery calcific ations are present. Minimal atherosclerotic arch calcifications with conventional arch vessel branching anatomy. Scattered prominent mediastinal and bilateral hilar nodes. Lower peritracheal measuring up to 1.0 cm and hilar nodes measuring up to 1.3 cm. Findings likely reactive. Multifocal patchy and confluent peribronchovascular and peripheral groundglass opacities. Dependent p osterior subpleural opacity likely atelectasis. Background mild emphysematous change. No pleural effu elizabeth. Tiny hiatal hernia. Visualized upper abdomen shows cholecystectomy clips. Bones: Scattered mild degenerative disc disease within the thoracic spine. IMPRESSION: NECK: 1. Abnormal soft tissue thickening and secondary narrowing at the glottis. Some polypoid soft tissue is also present here measuring up to 1.1 cm. Recommend direct inspection to exclude mucosal lesion/ne oplasm. 2. Otherwise, there is mild to moderate tonsillar hypertrophy in the nasopharynx and oropharynx. CHEST: 3. Extensive multifocal patchy and confluent peribronchovascular and peripheral groundglass opacities . Correlate for COVID pneumonia or interstitial pneumonitis such as INFECTIOUS DISEASES PHYSICIAN. Pulmonary medicine evaluati on recommended. 4. Some reactive borderline to mildly enlarged mediastinal/hilar adenopathy. 5. Tiny hiatal hernia.
--- NOTE | 2022-11-17 10:02 | P.PN ---
Subjective Progress Note Date: 11/17/22 Hospital course: Patient is a very pleasant 52-year-old female with a past medical history of ADHD, depression, anxiety, COPD with continued nicotine dependence, and chronic back pain status post previous cervical fusion with placement of metal plate. Patient presented to the emergency department with a chief complaint of confusion. Per documentation on chart patient initially presented with confusion and lethargy. Upon arrival to our facility patient's co nfusion/delirium resolved and patient reported cough, congestion, hoarse voice, and sore throat 2 months. Patient reports she was seen by an ENT doctor, Dr. Stevens and told that she had a suspected polyp on her vocal cord and was recommended to follow-up outpatient for surgery. Patient reports since this time she has continued with worsening cough, congestion, hoarse voice, and sore throat and reports that she had not yet had time to follow-up for surgery as she was recently bitten by a Ferret and underwent treatment including rabies vaccinations, tetanus vaccination and antibiotics for treatment. Patient underwent full evaluation in the emergency department.EKG completed showing normal sinus rhythm at [address] brain completed the radiology report reviewed showing no acute intercranial process. Chest x-ray completed and radiology report reviewed stating new bilateral multifocal increased opacities and redemonstrated postsurgical changes of cervical spine. Labs completed and reviewed. CBC showing leukocytosis with WBC count of 20.6 with neutrophils of 17.1. BMP revealing mild hyponatremia with sodium 133, hypochloremia with chloride of 95, and slightly elevated creatinine of 1.13. Troponin was less than 0.012. Urinalysis showing 35 WBCs with moderate leukocytes and trace blood and protein. Urine drug screen was positive for benzodiazepines in which patient is prescribed. Serum alcohol negative. Influenza A, influenza B, RSV, and Covid PCR were all negative. Patient admitted under our services. Upon evaluation this morning, patient reporting worsening pain in her throat. Order placed for CT neck and chest with contrast and upon completion radiology report was reviewed showing abnormal soft tissue thickening and narrowing of the glottis, polyploid soft tissue present measuring up to 1.1 cm, mild to moderate tonsillar hypertrophy, extensive multifocal patchy and confluent Peribronchovascular and peripheral groundglass opacities with reactive dorota rderline mildly enlarged mediastinal/hilar adenopathy and a tiny hiatal hernia. Consult was placed for ENT for evaluation of narrowing of glottis and polyploid soft tissue measuring 1.1 cm. Consult also placed to pulmonology secondary to extensive multifocal pneumonia, possibly aspiration, however also concerns for malignant process. Physical exam: Patient seen and fully evaluated at bedside. Patient reports pain in throat, mild erythema noted along with slightly enlarged tonsils. No tonsillar abscess noted. Order placed for morphine 4 mg IVP every 4 hours as needed for severe pain along with Cepacol lozenges. Computed tomography scan neck and chest with contrast was ordered. Vital signs reviewed and stable. General: Nontoxic, no distress and appears stated age. Derm: Skin warm and dry, normal coloration for ethnicity. Head: Atraumatic, normocephalic and symmetric. Eyes: EOMs intact, no lid lag, and anicteric sclera Mouth: no lip lesions, mucus membranes moist. Slight erythema to pharnyx and mild erythema & edema of tonsils. Voice Hoarse. Cardiovascular: regular rate and rhythm with normal S1S2, no murmur, positive posterior tibial pulses bilaterally, and cap refill < 2 seconds. Lungs: Respirations even, regular, and unlabored on oxygen. Lungs with diffuse coarse rhonchi. No crackles, rales, or wheezing, and no accessory muscle usage. Abdominal: soft, nontender to palpation, no guarding, no appreciable organomegal y Ext: ROM intact. No gross muscle atrophy, no edema, no contractures Neuro: Speech clear with hoarse voice, face symmetrical and CN II-XII grossly intact with no noted focal neuro deficits Psych: Alert and oriented to person, place, time, and situation. Appropriate and pleasant affect. Assessment and Plan of Care: Acute respiratory failure with hypoxia secondary to multifocal pneumonia on top of underlying COPD, unable to rule out aspiration pneumonia. Sore throat, dysphonia and dysphagia Narrowing of the glottis Polyploid soft tissue growth on glottis measuring up to 1.1 cm, likely secondary to polyp versus metastatic lesion. Leukocytosis Nicotine dependence -CT neck and chest with contrast and upon completion radiology report was reviewed showing abnormal soft tissue thickening and narrowing of the glottis, polyploid soft tissue present measuring up to 1.1 cm, mild to moderate tonsillar hypertrophy, extensive multifocal patchy and confluent Peribronchovascular and peripheral groundglass opacities with reactive borderline mildly enlarged mediastinal/hilar adenopathy and a tiny hiatal hernia. -Consult was placed for ENT for evaluation of narrowing of glottis and polyploid soft tissue measuring 1.1 cm. -Discussed plan of care with speech and language pathologist, patient to be made strict NPO and to undergo fluoroscopic swallow evaluation tomorrow. -Will consider consulting general surgery for possible PEG tube placement pending findings of fluoroscopic swallow evaluation. -Discussed plan of care with pulmonology NATIONAL INVESTIGATIVE PRODUCER, recommending discontinuation of Rocephin and azithromycin and starting patient on Zosyn 3.375 g every 8 hours IVPB secondary to concerns of aspiration. -Sputum culture, Legionella, and blood cultures received an laboratory and currently pending results. -Patient started on gentle IV fluid hydration with D5 0.45% NS and blood glucose checks to be initiated every 4 hours along with glycemic protocol while patient remains NPO. - CBC showing leukocytosis with WBC count of 20.6 with neutrophils of 17.1. Order placed for repeat CBC to follow-up on leukocytosis and monitor closely for improvement. -Recommend smoking cessation and order placed for nicotine patch 21 mg daily. Anxiety and depression -Patient strict NPO at this time, order placed for Ativan 0.5 mg IVP every 8 hours as needed for anxiety. CODE STATUS: Full code DVT prophylaxis: Lovenox Discussed with: Patient, RN, pulmonology NATIONAL INVESTIGATIVE PRODUCER, and speech and language pathologist. Anticipated discharge date: Clinical course to determine Anticipated discharge place: Home Patient was seen independently by Nurse Pracitioner. This document was prepared using [email or web address] dictation software. Please allow for errors in rotary operator, while rare they do occur. Lino Wheatley, NATIONAL INVESTIGATIVE PRODUCER rendered care for this patient independently, reviewed the findings and plan as documented in the note above. I did not physically speak with or examine the patient on this date. Objective - Vital Signs Vital signs: Vital Signs Temp 99.7 F H 11/17/22 06:12 Pulse 83 11/17/22 06:12 Resp 20 11/17/22 06:12 BP 97/56 11/17/22 06:12 Pulse Ox 93 L 11/17/22 06:12 FiO2 Intake & Output 11/16/22 11/17/22 11/17/22 18:59 06:59 18:59 Weight 64.41 kg - Labs CBC & Chem 7: 11/16/22 20:59 11/16/22 20:59 Labs: Abnormal Lab Results - Last 24 Hours (Table) 04/11/16/22 11/16/22 Range/Units 20:59 20:59 20:59 WBC 20.6 H (3.8-10.6) k/uL Neutrophils # 17.1 H (1.3-7.7) k/uL Monocytes # 1.1 H (0-1.0) k/uL Sodium 133 L (137-145) mmol/L Chloride 95 L (98-107) mmol/L Creatinine 1.13 H (0.52-1.04) mg/dL Glucose 110 H (74-99) mg/dL POC Glucose (mg/dL) 111 H (70-110) mg/dL Urine Protein (Negative) Urine Blood (Negative) Ur Leukocyte Esterase (Negative) Urine WBC (0-5) /hpf U Benzodiazepines Scrn (NotDetected) 11/16/22 Range/Units 22:43 WBC (3.8-10.6) k/uL Neutrophils # (1.3-7.7) k/uL Monocytes # (0-1.0) k/uL Sodium (137-145) mmol/L Chloride (98-107) mmol/L Creatinine (0.52-1.04) mg/dL Glucose (74-99) mg/dL POC Glucose (mg/dL) (70-110) mg/dL Urine Protein Trace H (Negative) Urine Blood Small H (Negative) Ur Leukocyte Esterase Moderate H (Negative) Urine WBC 35 H (0-5) /hpf U Benzodiazepines Scrn Detected H (NotDetected)
[2022-11-17] MEDS: MORPHINE SULFATE 4 MG/ML SYRINGE IV PRN ×4 (10:16→22:30)
--- NOTE | 2022-11-17 11:22 | P.CNPUL ---
History of Present Illness Consult date: 11/17/22 Requesting physician: Lizzeth Fishman Reason for consult: dyspnea, cough, abnormal CXR/CT Chief complaint: Sore throat, cough, congestion History of present illness: This is a pleasant 52-year-old female patient with a known history of ADHD, anxiety, depression, chronic and ongoing tobacco dependence. She also has a history of chronic neck pain with previous cervical fusion and metal plate placement. Approximately a month ago she developed increasing sore throat and difficulty swallowing. She was referred to an ENT after being found to have a polyp on her left vocal cord. Surgery was recommended but she did not follow up at that time. On 10/28/2022 the patient had been bitten by a ferret at a local [employer]. She was seen in the emergency room at [facility] and had received rabies shots 3 + a tetanus shot. She was seen here in our emergency department on November 05 with hand pain. X-ray revealed no fracture. Chest x-ray at that time revealed no acute pulmonary process. She presented here again last evening with worsening shortness of breath, cough congestion and difficulty swallowing. He was also having issues with altered mental status. Computed tomography scan of the brain revealed no acute intracranial process. Chest x-ray is now revealing new bilateral multifocal opacities. Computed tomography scan of the neck and chest revealed an abnormal soft tissue thickening and secondary narrowing of the glottis. Some polypoid soft tissue present measuring up to 1.1 cm. There is mild to moderate tonsillar hypertrophy in the nasopharynx and oropharynx. Chest revealed extensive multifocal patchy and confluent. A bronchovascular and peripheral groundglass opacities. Suspicious for COVID-19 pneumonia or interstitial pneumonitis such as cryptogenic organizing pneumonia. Possible aspiration pneumonia. There is some noted reactive borderline to mildly enlarged mediastinal/hilar adenopathy. White count 20.6. Hemoglobin 12.2. Sodium 133. Potassium 4.5. Bicarb 26. BUN 2016. Creatinine 1.13. Glucose 110. Ammonia level XIII. AST 23. ALT 15. Urinalysis with trace glucose, small nitrates, moderate leukocyte esterase and high WBCs. Urine drug screen positive for benzodiazepines. Alcohol level less than 10. Influenza screen negative. RSV screen negative. COVID-19 screen negative. She is seen today in consultation on the regular medical floor. She is currently sitting up in bed. She is quite hoarse. She is somewhat bronchospastic and wheezing. She is having difficulty in swallowing even liquids. She did have a T-max of 102.6. Currently 99.7. She's been initiated on ceftriaxone and azithromycin along with bronchodilators. She is maintaining good O2 saturations in the 90s on 4 L/m per nasal cannula. Review of Systems REVIEW OF SYSTEMS: CONSTITUTIONAL: Positive for altered mental status. Denies any recent significant weight loss or weight gain. EYES: Denies change in vision. EARS, NOSE, MOUTH, THROAT: Positive for sore throat, dysphagia. CARDIOVASCULAR: Denies chest pain, palpitations or syncopal episodes. RESPIRATORY: Positive for shortness of breath, cough, congestion no hemoptysis. GASTROINTESTINAL: Denies change in appetite, denies abdominal pain GENITOURINARY: Denies hematuria, denies infections. MUSKULOSKELETAL: Denies pain, denies swelling. INTEGUMENTARY: Denies rash, denies eczema. NEUROLOGICAL: Denies recent memory loss, no recent seizure activity. PSYCHIATRIC: Denies anxiety, denies depression. HEMATOLOGIC/LYMPHATIC: Denies anemia, denies enlarged lymph nodes. Past Medical History Past Medical History: COPD, GERD/Reflux, Hypertension, Pneumonia Additional Past Medical History / Comment(s): chronic back pain, lumbar degenerative disc disease, insomnia, hx shingles, hiatal hernia, kidney stones. 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, migraines,; NECK PAIN , Last Myocardial Infarction Date:: 08/27/2016 History of Any Multi-Drug Resistant Organisms: MRSA Date of last positivie culture/infection: 09/22/09 MDRO Source:: neck Past Surgical History: Appendectomy, Back Surgery, Section, Cholecyste ctomy, Orthopedic Surgery Additional Past Surgical History / Comment(s): Cervical spine fusion with insertion of a metal plate, EGD, colonoscopy, radiofrequency ablation, Past Anesthesia/Blood Transfusion Reactions: No Reported Reaction Additional Past Anesthesia/Blood Transfusion Reaction / Comment(s): CLAUSTROPHOBIA Past Psychological History: ADD/ADHD, Anxiety, Panic Disorder Additional Psychological History / Comment(s): PT LIVES WITH SIG OTHER OF 25 YEARS. Smoking Status: Current every day smoker Past Alcohol Use History: None Reported Additional Past Alcohol Use History / Comment(s): PATIENT STATES SHE STARTED SMOKING AT AGE 16 SMOKES 4 CIG PER DAY Past Drug Use History: None Reported - Past Family History Father Family Medical History: Cancer Additional Family Medical History / Comment(s): Father at age 48 from lung cancer. Mother Family Medical History: Congestive Heart Failure (CHF), CVA/TIA Additional Family Medical History / Comment(s): Mother is alive at age 68. She has suffered from a CVA and has chronic back problems. Patient has 2 brothers and 4 sisters with no major medical problems. Medications and Allergies Home Medications Medication Instructions Recorded Confirmed Type clonazePAM [KlonoPIN] 0.5 mg PO BID PRN 10/23/19 11/17/22 History Escitalopram [Lexapro] 20 mg PO DAILY 10/20/20 11/17/22 History Methylphenidate HCl [Ritalin] 20 mg PO DAILY@1200 10/23/21 11/17/22 History Methylphenidate HCl [Ritalin] 40 mg PO DAILY 10/23/21 11/17/22 History Prazosin [Minipress] 5 mg PO HS 10/23/21 11/17/22 History ARIPiprazole [Abilify] 20 mg PO DAILY 11/17/22 11/17/22 History Gabapentin [Neurontin] 800 mg PO Q8H 11/17/22 11/17/22 History hydrOXYzine pamoate 50 mg PO TID PRN 11/17/22 11/17/22 History Allergies Allergy/AdvReac Type Severity Reaction Status Date / Time ketorolac [From Toradol] Allergy Anaphylaxis Verified 08/08/22 13:10 shellfish derived Allergy Anaphylaxis Verified 08/08/22 13:10 tramadol [From Ultram] Allergy Anaphylaxis Verified 08/08/22 13:10 ibuprofen AdvReac HIVES Verified 08/08/22 13:10 Physical Exam Vitals: Vital Signs Temp Pulse Resp BP Pulse Ox 11/17/22 08:26 84 11/17/22 08:13 85 11/17/22 06:12 99.7 F H 83 20 97/56 93 L 11/17/22 03:00 80 16 97/69 96 11/17/22 02:00 90 16 90/63 95 11/17/22 01:00 90 16 92/65 91 L 11/17/22 00:04 99 F 11/17/22 00:00 96 16 105/77 95 11/16/22 23:35 97 18 105/77 95 11/16/22 22:04 100 18 101/62 93 L 11/16/22 20:29 102.6 F H 105 H 20 120/73 92 L Intake and Output 11/16/22 11/17/22 11/17/22 22:59 06:59 14:59 Other: Weight 64.41 kg 64.41 kg GENERAL EXAM: Alert, pleasant 52-year-old female, on 4 L nasal cannula, fairly comfortable in no apparent distress. HEAD: Normocephalic. EYES: Normal reaction of pupils, equal size. NOSE: Clear with pink turbinates. THROAT: Noted erythema no exudates. NECK: No masses, no JVD. CHEST: No chest wall deformity. LUNGS: Equal air entry with bilateral scattered rhonchi. CVS: S1 and S2 normal with no audible murmur, regular rhythm. ABDOMEN: No hepatosplenomegaly, normal bowel sounds, no guarding or rigidity. SPINE: No scoliosis or deformity SKIN: No rashes CENTRAL NERVOUS SYSTEM: No focal deficits, tone is normal in all 4 extremities. EXTREMITIES: There is no peripheral edema. No clubbing, no cyanosis. Peripheral pulses are intact. Results - Laboratory Findings CBC and BMP: 11/16/22 20:59 11/16/22 20:59 PT/INR, D-dimer PT 9.8 sec (9.0-12.0) 11/16/22 20:59 INR 0.9 (<1.2) 11/16/22 20:59 Abnormal lab findings: Abnormal Labs 11/16/22 11/16/22 11/16/22 20:59 20:59 20:59 WBC 20.6 H Neutrophils # 17.1 H Monocytes # 1.1 H Sodium 133 L Chloride 95 L Creatinine 1.13 H Glucose 110 H POC Glucose (mg/dL) 111 H Urine Protein Urine Blood Ur Leukocyte Esterase Urine WBC U Benzodiazepines Scrn 11/16/22 22:43 WBC Neutrophils # Monocytes # Sodium Chloride Creatinine Glucose POC Glucose (mg/dL) Urine Protein Trace H Urine Blood Small H Ur Leukocyte Esterase Moderate H Urine WBC 35 H U Benzodiazepines Scrn Detected H - Diagnostic Findings Chest x-ray: image reviewed CT scan - chest: image reviewed Assessment and Plan Assessment: Acute hypoxemic respiratory failure secondary to suspected aspiration pneumonia with extensive multifocal patchy and confluent. Bronchovascular and peripheral groundglass opacities. The patient has had significant difficulty in swallowing with recent diagnosis of polyp of the suspected vocal cords or tonsil area. Influenza screen negative. RSV screen negative. COVID-19 screen negative. Febrile illness secondary to above Leukocytosis secondary to above Suspected urinary tract infection Urine drug screen positive for benzodiazepines Altered mental status secondary to above, recovered Recent, 10/28/2022, ferret bite to the right hand. Status post tetanus and rabies shots Dysphagia with hoarseness secondary to soft tissue mass with secondary narrowing at the glottis measuring 1.1 cm. Cannot rule out neoplasm. Chronic and ongoing tobacco dependence Hypertension History of anxiety/depression History of ADHD Plan: The patient was seen and evaluated Chest x-ray, CAT scan, labs and medications reviewed Discontinue ceftriaxone and azithromycin Initiate Zosyn Continue DuoNeb inhalations ENT consult Infectious disease consult Swallow evaluation Titrate the FiO2 as tolerated Educated regarding importance of complete smoking cessation We will continue to follow and make further recommendations based on her clinical status I have personally seen and examined the patient, performed the documentation and the assessment and plan as written. Number of minutes spent on the visit: 20.
[2022-11-17] MEDS: ESCITALOPRAM 20 MG TAB PO SCH (12:07)
[2022-11-17] MEDS: DEXAMETHASONE SOD PHOSPHATE 4 MG/ML 1 ML VIAL IVP SCH ×3 (12:55→22:26)
[2022-11-17] MEDS ORDERED: DEXTROSE 50% SYRINGE 50 ML IVP PRN ×2 (15:46)
[2022-11-17] MEDS: DEXTROSE 5%-0.45% NACL 1,000 ML IV SCH (16:38)
[2022-11-17] MEDS: PIPERACILLIN-TAZOBACTAM 3.375 GM in SODIUM CHLORIDE 0.9% 100 ML IVPB SCH ×2 (16:39→22:26)
[2022-11-17] MEDS: NICOTINE 21MG/24HR PATCH TRANSDERM SCH (17:17)
[2022-11-17 18:23] LABS: Glucose,Whole Blood 166 mg/dL (70-110)
[2022-11-17] MEDS: LORazepam 2 MG/ML INJ IV PRN (18:35)
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
[2022-11-17 20:26] LABS: Glucose,Whole Blood 213 mg/dL (70-110)
[2022-11-17] MEDS ORDERED: PRAZOSIN 1 MG CAP PO SCH (21:00)
[2022-11-17 22:43] LABS: Glucose,Whole Blood 257 mg/dL (70-110)
--- NOTE | 2022-11-17 23:55 | CONS ---
CONSULTATION REASON FOR CONSULTATION: Laryngeal lesion/chronic laryngitis. HISTORY OF PRESENT ILLNESS: This patient is a 52-year-old female, who was recently admitted to [facility] via the emergency room for evaluation and treatment of pneumonia and possible sepsis. In addition to this, during the examination in the emergency room, a CT scan of the neck revealed that the patient had a polypoid laryngeal lesion. The patient states that she has had a hoarse voice/chronic laryngitis for at least a year. She has seen an ENT specialist, who advised her that she had a polyp on one of her vocal cords. He also advised that this needed to be removed. She subsequently saw a second ENT specialist, who unfortunately stated that he did not do that particular procedure. She apparently has been given information to make an appointment at [facility] to see a physician to have this issue addressed. She was diagnosed in the emergency room with pneumonia and states that she has been coughing quite a bit and has a sore throat. She states that she was told years ago that she should consider having her tonsils removed. She denies a history of chronic or repeated tonsillitis. She denies any difficulty swallowing or any referred otalgia. The patient currently smokes approximately 3 to 4 cigarettes per day. Her normal amount of smoking is close to a pack plus per day. I encouraged her to quit. I suggested that she try using either the nicotine patch or the e-cigarette to help her assist during quitting. I also informed her that it generally takes approximately at least 1 year to quit smoking. PAST MEDICAL HISTORY: Reveals that she has multiple allergies to Toradol, Ultram, ibuprofen, and shellfish. CURRENT HOME MEDICATIONS: Include: 1. Klonopin. 2. Lexapro. 3. Ritalin. 4. Minipress. 5. Abilify. 6. Neurontin. 7. Hydroxyzine pamoate. REVIEW OF SYSTEMS: CARDIOVASCULAR: Positive for hypertension. RESPIRATORY: Positive for COPD? GASTROINTESTINAL: Positive for GERD (gastroesophageal reflux disorder). Remainder of the review of systems is essentially unremarkable. PHYSICAL EXAMINATION: GENERAL: This patient is a 52-year-old female, who is alert and is in no acute distress. Her voice is quite hoarse currently. HEENT: The patient is normocephalic. Tympanic membranes are normal. Middle ear spaces are free of any fluid or infection. Pupils are equal, round, and reactive to light and accommodation. Extraocular movements are within normal limits. Intranasal examination reveals moderate septal deviation with compensatory hypertrophy of the inferior turbinates and a moderate amount of clear mucus on the mucous membranes and draining down the posterior pharynx. Examination of oropharynx reveals the patient is partially edentulous. The patient has approximately 3+ tonsillar hypertrophy. There is no significant injection or erythema of the posterior pharyngeal wall. Palpation of the neck is negative for any neck adenopathy or neck masses. Cranial nerves 2 through 12 and remainder of the head and neck exam are unremarkable. CHEST/CARDIOVASCULAR: Lung pascal are essentially clear. There are no obvious rales, wheezes, or rhonchi at this time. Lung sounds appear to be somewhat distant at the bases, however. The patient is in regular sinus rhythm. There is no evidence of any murmurs, S3s, or S4s. Peripheral pulses are bilaterally symmetrical. ABDOMEN: There is no evidence of any masses, megaly, or tenderness. The abdomen is soft. The remainder of the physical exam is unremarkable. IMPRESSION: Chronic laryngitis with laryngeal lesion, polyp versus malignancy? PLAN: The patient has undergone a nasopharyngoscopy by an ENT specialist and was previously told that she needs to have surgery. As mentioned above, she has been given the name of [facility], and I have also given her the name of that association, so that she may call or her primary care doctor may call and get her an appointment. Unfortunately, in the hospital setting, I am not able to do either an indirect laryngoscopy or a nasopharyngoscopy to evaluate the status of the larynx or the vocal cords. It is quite obvious from her voice that she has a laryngeal lesion of some sort. I advised the patient that, although reviewing the x-ray, it appears to be polypoid, these lesions are always biopsied before they are removed in a patient who is a smoker. If it is a benign lesion, it generally can be removed using a CO2 laser. I emphasized to this patient the importance of her following up and getting this issue resolved. Unfortunately, I am not able to do this. I am not able to operate on this patient because I am not a participant with [place] [employer]. Therefore, unless it was on any emergency basis, I am not able to perform any type of surgery. I encouraged her to quit smoking as stated above. Once the patient's pneumonia has resolved/brought under control enough for the patient to be discharged, then certainly, this patient should immediately consult either [facility] or her primary care doctor to get an appointment at [facility] to undergo a suspension microlaryngoscopy with biopsy of laryngeal lesion under general anesthesia. At this point, I am not able to offer this patient any other service from an ENT standpoint. Therefore, I am signing off this case at this time. If you feel you need to re-consult my office, please feel free to call. I want to take this opportunity to thank you for allowing me to assist in the care of your patient. If I could be of any further assistance, please feel free to call my office. MMBITA / BRITTON: [phone] / MTDD
[2022-11-18] MEDS: GABAPENTIN 400 MG CAP PO SCH ×2 (02:15→07:22)
[2022-11-18 02:16] LABS: Glucose,Whole Blood 208 mg/dL (70-110)
[2022-11-18] MEDS: LORazepam 2 MG/ML INJ IV PRN ×3 (02:22→14:42)
[2022-11-18] MEDS: MORPHINE SULFATE 4 MG/ML SYRINGE IV PRN ×2 (02:45→06:39)
[2022-11-18] MEDS: DEXTROSE 5%-0.45% NACL 1,000 ML IV SCH ×2 (03:38→11:10)
[2022-11-18 03:41] VITALS: RESP 18
[2022-11-18] MEDS: DEXAMETHASONE SOD PHOSPHATE 4 MG/ML 1 ML VIAL IVP SCH ×2 (05:28→10:28)
[2022-11-18] MEDS: ESCITALOPRAM 20 MG TAB PO SCH (07:22)
[2022-11-18] MEDS: PIPERACILLIN-TAZOBACTAM 3.375 GM in SODIUM CHLORIDE 0.9% 100 ML IVPB SCH (07:43)
[2022-11-18] MEDS: NICOTINE 21MG/24HR PATCH TRANSDERM SCH (07:44)
[2022-11-18 07:50] LABS: Glucose,Whole Blood 165 mg/dL (70-110)
[2022-11-18] MEDS: HYDROmorphone 0.5 MG/0.5 ML SYRINGE IVP PRN ×4 (08:50→14:41)
[2022-11-18] MEDS ORDERED: ENOXAPARIN 40 MG/0.4 ML SYRINGE SQ SCH (09:00)
[2022-11-18] MEDS: IPRATROPIUM-ALBUTEROL 3 ML NEB INHALATION SCH ×2 (09:14→12:50)
--- NOTE | 2022-11-18 09:23 | XR ---
EXAMINATION TYPE: XR chest 1V portable DATE OF EXAM: 11/18/2022 COMPARISON: 11/16/2022 HISTORY: Shortness of breath TECHNIQUE: Single frontal view of the chest is obtained. FINDINGS: There is no focal air space opacity, pleural effusion, or pneumothorax seen. The cardiac silhouette size is within normal limits. The osseous structures are intact. Postsurgical change ove rlying the cervical spine. There is a coarsened interstitium. IMPRESSION: 1. Correlate for pulmonary fibrosis.
--- NOTE | 2022-11-18 09:36 | P.PN ---
Subjective Progress Note Date: 11/18/22 Hospital course: Patient is a very pleasant 52-year-old female with a past medical history of ADHD, depression, anxiety, COPD with continued nicotine dependence, and chronic back pain status post previous cervical fusion with placement of metal plate. Patient presented to the emergency department with a chief complaint of confusion. Per documentation on chart patient initially presented with confusion and lethargy. Upon arrival to our facility patient's co nfusion/delirium resolved and patient reported cough, congestion, hoarse voice, and sore throat 2 months. Patient reports she was seen by an ENT doctor, Dr. Stevens and told that she had a suspected polyp on her vocal cord and was recommended to follow-up outpatient for surgery. Patient reports since this time she has continued with worsening cough, congestion, hoarse voice, and sore throat and reports that she had not yet had time to follow-up for surgery as she was recently bitten by a Ferret and underwent treatment including rabies vaccinations, tetanus vaccination and antibiotics for treatment. Patient underwent full evaluation in the emergency department.EKG completed showing normal sinus rhythm at [address] brain completed the radiology report reviewed showing no acute intercranial process. Chest x-ray completed and radiology report reviewed stating new bilateral multifocal increased opacities and redemonstrated postsurgical changes of cervical spine. Labs completed and reviewed. CBC showing leukocytosis with WBC count of 20.6 with neutrophils of 17.1. BMP revealing mild hyponatremia with sodium 133, hypochloremia with chloride of 95, and slightly elevated creatinine of 1.13. Troponin was less than 0.012. Urinalysis showing 35 WBCs with moderate leukocytes and trace blood and protein. Urine drug screen was positive for benzodiazepines in which patient is prescribed. Serum alcohol negative. Influenza A, influenza B, RSV, and Covid PCR were all negative. Patient admitted under our services. Upon evaluation this morning, patient reporting worsening pain in her throat. Order placed for CT neck and chest with contrast and upon completion radiology report was reviewed showing abnormal soft tissue thickening and narrowing of the glottis, polyploid soft tissue present measuring up to 1.1 cm, mild to moderate tonsillar hypertrophy, extensive multifocal patchy and confluent Peribronchovascular and peripheral groundglass opacities with reactive dorota rderline mildly enlarged mediastinal/hilar adenopathy and a tiny hiatal hernia. Consult was placed for ENT for evaluation of narrowing of glottis and polyploid soft tissue measuring 1.1 cm. Consult also placed to pulmonology secondary to extensive multifocal pneumonia, possibly aspiration, however also concerns for malignant process. Physical exam: Patient seen and fully evaluated at bedside. Patient reports pain in throat along with uncontrolled chronic neck pain, She states that pain in not controlled with morphine and requesting additional pain medication every two hours. Order was changed to Dilaudid 0.5 mg every 2 hours as needed for pain and due to uncontrolled anxiety ativan dose changed to 0.5 mg Q6 hours as needed for anxiety. Vital signs reviewed and stable. General: Nontoxic, no distress and appears stated age. Derm: Skin warm and dry, normal coloration for ethnicity. Head: Atraumatic, normocephalic and symmetric. Eyes: EOMs intact, no lid lag, and anicteric sclera Mouth: no lip lesions, mucus membranes moist. Slight erythema to pharnyx and mild erythema & edema of tonsils. Voice Hoarse. Cardiovascular: regular rate and rhythm with normal S1S2, no murmur, positive posterior tibial pulses bilaterally, and cap refill < 2 seconds. Lungs: Respirations even, regular, and unlabored on oxygen. Lungs with diffuse coarse rhonchi. No crackles, rales, or wheezing, and no accessory muscle usage. Abdominal: soft, nontender to palpation, no guarding, no appreciable organomegaly Ext: ROM intact. No gross muscle atrophy, no edema, no contractures Neuro: Speech clear with hoarse voice, face symmetrical and CN II-XII grossly intact with no noted focal neuro deficits Psych: Alert and oriented to person, place, time, and situation. Appropriate and pleasant affect. Assessment and Plan of Care: Acute respiratory failure with hypoxia secondary to multifocal pneumonia on top of underlying COPD, unable to rule out aspiration pneumonia. Sore throat, dysphonia and dysphagia Narrowing of the glottis Polyploid soft tissue growth on glottis measuring up to 1.1 cm, likely secondary to polyp versus metastatic lesion. Leukocytosis Abnormal urinalysis, no urinary complaints Nicotine dependence -Patient was evaluated by ENT for evaluation of narrowing of glottis and polyploid soft tissue measuring 1.1 cm., documentation and chart reviewed and ENT physician recommending patient to be evaluated by ENT surgeon for evaluation of laryngeal lesion. -Discussed plan of care with speech and language pathologist, patient failed swallow evaluation and to continue strict NPO status. -Discussed plan of care with account financial manager, recommending transfer to [facility] where patient may be evaluated by ENT surgeon. -Initiating transfer to [facility]. -Patient to continue Zosyn 3.375 g every 8 hours IVPB for treatment of aspiration pneumonia. -Sputum culture, Legionella, and blood cultures pending results. -Continue gentle IV fluid hydration with D5 0.45% NS and blood glucose checks to be initiated every 4 hours along with glycemic protocol while patient remains NPO. -CBC showing slight improvement of leukocytosis with WBC decreasing from 20.6 down to 17.06, also showing macrocytic anemia with hemoglobin of 10.6. Pro- calcitonin elevated at 0.74. CRP was 19.30. -Recommend smoking cessation and continue nicotine patch 21 mg daily. Anxiety and depression -Patient strict NPO at this time, order initially placed for Ativan 0.5 mg IVP every 8 hours as needed for anxiety and increased to 0.5 mg Q6 hours this morning secondary to uncontrolled anxiety. CODE STATUS: Full code DVT prophylaxis: Lovenox Discussed with: Patient, RN, pulmonology B2B SALES MANAGER, and speech and language pathologist. Anticipated discharge date: Clinical course to determine Anticipated discharge place: Home Patient was seen independently by Nurse Pracitioner. This document was prepared using [employer] dictation software. Please allow for errors in transit clerk, while rare they do occur. I reviewed the documentation as provided by the OTF above, who is the original author of this note. I agree with the documented assessment and plan, with the following changes: none Objective - Vital Signs Vital signs: Vital Signs Temp 98.1 F 11/18/22 07:58 Pulse 90 11/18/22 07:58 Resp 18 11/18/22 07:58 BP 118/58 11/18/22 07:58 Pulse Ox 95 11/18/22 07:58 FiO2 Intake & Output 11/17/22 11/18/22 11/18/22 18:59 06:59 18:59 Weight 64.41 kg Other: # Voids 3 - Labs CBC & Chem 7: 11/18/22 06:27 11/18/22 06:27 Labs: Abnormal Lab Results - Last 24 Hours (Table) 11/17/22 11/17/22 11/17/22 Range/Units 18:21 20:25 22:42 POC Glucose (mg/dL) 166 H 213 H 257 H (70-110) mg/dL 11/18/22 11/18/22 Range/Units 02:14 07:37 POC Glucose (mg/dL) 208 H 165 H (70-110) mg/dL
--- NOTE | 2022-11-18 10:43 | FL ---
EXAMINATION TYPE: FL barium swallow w video DATE OF EXAM: 11/18/2022 MODIFIED SWALLOW / DEGLUTITION STUDY CLINICAL HISTORY: Dysphagia. Rule out aspiration. Severe throat pain. TECHNIQUE: Deglutition study is performed attempted utilizing thick liquid barium. A total of 56 sec onds performed. 0 images saved. Total dose area product (DAP) in uGy*m?, mGy*cm? (or similar): n/a COMPARISON: CT neck from 1 day earlier FINDINGS: Patient attempted one sip of thin liquid barium causing cough. Patient unable to perform an y further swallows to further evaluate. IMPRESSION: Nondiagnostic study. Please refer to speech therapist notes for further details if [email or web address] elizondo.
[2022-11-18 11:17] LABS: HCT 34.8 % (37.2-46.3); HGB 10.6 g/dL (12.0-15.0); MCH 29.7 pg (27.0-32.0); MCHC 30.5 g/dL (32.0-37.0); MCV 97.5 fL (80.0-97.0); Mean Platelet Volume 9.7 fL (9.5-12.2); NRBC Per 100 WBC 0 /100 WBCS (0.0-0.0); Platelet Count 395 X 10*3/uL (140-440); RBC 3.57 X 10*6/uL (4.10-5.20); WBC 17.06 X 10*3/uL (4.50-10.00)
[2022-11-18 11:31] LABS: Anion Gap 11.1 mmol/L (10.00-18.00); BUN/Creat Ratio 13.5 Ratio (12.00-20.00); Blood Urea Nitrogen 13.5 mg/dL (9.0-27.0); Calcium 9.1 mg/dL (8.7-10.3); Carbon Dioxide 21.9 mmol/L (20.0-27.5); Non-African American GFR(CKD) 63.8 (60.0-200.0); Potassium 4.5 mmol/L (3.5-5.5)
[2022-11-18 11:32] LABS: C Reactive Protein 19.3 mg/dL (0.00-0.80); Magnesium 2.3 mg/dL (1.5-2.4)
[2022-11-18 12:09] VITALS: BP 100/64; TEMP 98.2
[2022-11-18 12:24] LABS: Glucose,Whole Blood 164 mg/dL (70-110)
--- NOTE | 2022-11-18 12:58 | P.PN ---
Subjective Progress Note Date: 11/18/22 This is a pleasant 52-year-old female patient with a known history of ADHD, anxiety, depression, chronic and ongoing tobacco dependence. She also has a history of chronic neck pain with previous cervical fusion and metal plate placement. Approximately a month ago she developed increasing sore throat and difficulty swallowing. She was referred to an ENT after being found to have a polyp on her left vocal cord. Surgery was recommended but she did not follow up at that time. On 10/28/2022 the patient had been bitten by a ferret at a local [employer]. She was seen in the emergency room at [facility] and had received rabies shots 3 + a tetanus shot. She was seen here in our emergency department on November 05 with hand pain. X-ray revealed no fracture. Chest x-ray at that time revealed no acute pulmonary process. She presented here again last evening with worsening shortness of breath, cough congestion and difficulty swallowing. He was also having issues with altered mental status. Computed tomography scan of the brain revealed no acute intracranial process. Chest x-ray is now reveali ng new bilateral multifocal opacities. Computed tomography scan of the neck and chest revealed an abnormal soft tissue thickening and secondary narrowing of the glottis. Some polypoid soft tissue present measuring up to 1.1 cm. There is mild to moderate tonsillar hypertrophy in the nasopharynx and oropharynx. Chest revealed extensive multifocal patchy and confluent. A bronchovascular and brennen pheral groundglass opacities. Suspicious for COVID-19 pneumonia or interstitial pneumonitis such as cryptogenic organizing pneumonia. Possible aspiration pneumonia. There is some noted reactive borderline to mildly enlarged mediastinal/hilar adenopathy. White count 20.6. Hemoglobin 12.2. Sodium 133. Potassium 4.5. Bicarb 26. BUN 2016. Creatinine 1.13. Glucose 110. Ammonia level XIII. AST 23. ALT 15. Urinalysis with trace glucose, small nitrates, moderate leukocyte esterase and high WBCs. Urine drug screen positive for benzodiazepines. Alcohol level less than 10. Influenza screen negative. RSV screen negative. COVID-19 screen negative. She is seen today in consultation on the regular medical floor. She is currently sitting up in bed. She is quite hoarse. She is somewhat bronchospastic and wheezing. She is having difficulty in swallowing even liquids. She did have a T-max of 102.6. Currently 99.7. She's been initiated on ceftriaxone and azithromycin along with bronchodilators. She is maintaining good O2 saturations in the 90s on 4 L/m per nasal cannula. The patient is seen today 11/18/2022 in follow-up on the regular medical floor. She is currently sitting up in bed. Awake and alert in no acute distress. He is maintaining good O2 saturations in the 90s on room air. She's been afebrile. Hemodynamically stable. She is still quite hoarse. She is still having difficulty swallowing. He tried to do a barium swallow today however on the first attempt of 1 siblings been liquid barium she started coughing was unable to proceed with this procedure. It was nondiagnostic. Chest x-ray continues to show bilateral multifocal opacities. Most likely aspiration pneumonia. Blood cultures are pending and white count 17.0. Hemoglobin 10.6. Platelets 395. Sodium 136. Potassium 4.5. Bicarb 22. BUN 13. Creatinine 1.0. Glucose 179. C-reactive protein 19.3. ProCalcitonin 0.74. She is continued on Zosyn. Remains on Decadron and bronchodilators. She had been seen and evaluated by ENT however they are unable to perform the procedure here. Objective - Vital Signs Vital signs: Vital Signs Temp 98.2 F 11/18/22 12:08 Pulse 89 11/18/22 12:08 Resp 18 11/18/22 12:08 BP 100/64 11/18/22 12:08 Pulse Ox 96 11/18/22 12:08 FiO2 Intake & Output 11/17/22 11/18/22 11/18/22 18:59 06:59 18:59 Weight 64.41 kg Other: # Voids 3 - Exam GENERAL EXAM: Alert, pleasant 52-year-old female, on room air, fairly comfortable in no apparent distress. HEAD: Normocephalic. EYES: Normal reaction of pupils, equal size. NOSE: Clear with pink turbinates. THROAT: Noted erythema no exudates. NECK: No masses, no JVD. CHEST: No chest wall deformity. LUNGS: Equal air entry with bilateral scattered rhonchi. CVS: S1 and S2 normal with no audible murmur, regular rhythm. ABDOMEN: No hepatosplenomegaly, normal bowel sounds, no guarding or rigidity. SPINE: No scoliosis or deformity SKIN: No rashes CENTRAL NERVOUS SYSTEM: No focal deficits, tone is normal in all 4 extremities. EXTREMITIES: There is no peripheral edema. No clubbing, no cyanosis. Peripheral pulses are intact. - Labs CBC & Chem 7: 11/18/22 06:27 11/18/22 06:27 Labs: Abnormal Lab Results - Last 24 Hours (Table) 11/17/22 11/17/22 11/17/22 Range/Units 18:21 20:25 22:42 WBC (4.50-10.00) X 10*3/uL RBC (4.10-5.20) X 10*6/uL Hgb (12.0-15.0) g/dL Hct (37.2-46.3) % MCV (80.0-97.0) fL MCHC (32.0-37.0) g/dL Glucose (70-110) mg/dL POC Glucose (mg/dL) 166 H 213 H 257 H (70-110) mg/dL C-Reactive Protein (0.00-0.80) mg/dL Procalcitonin (0.02-0.09) ng/mL 11/18/22 11/18/22 11/18/22 Range/Units 02:14 06:27 06:27 WBC (4.50-10.00) X 10*3/uL RBC (4.10-5.20) X 10*6/uL Hgb (12.0-15.0) g/dL Hct (37.2-46.3) % MCV (80.0-97.0) fL MCHC (32.0-37.0) g/dL Glucose 179 H (70-110) mg/dL POC Glucose (mg/dL) 208 H (70-110) mg/dL C-Reactive Protein 19.30 H (0.00-0.80) mg/dL Procalcitonin 0.74 H (0.02-0.09) ng/mL 11/18/22 11/18/22 11/18/22 Range/Units 06:27 07:37 12:23 WBC 17.06 H (4.50-10.00) X 10*3/uL RBC 3.57 L (4.10-5.20) X 10*6/uL Hgb 10.6 L (12.0-15.0) g/dL Hct 34.8 L (37.2-46.3) % MCV 97.5 H (80.0-97.0) fL MCHC 30.5 L (32.0-37.0) g/dL Glucose (70-110) mg/dL POC Glucose (mg/dL) 165 H 164 H (70-110) mg/dL C-Reactive Protein (0.00-0.80) mg/dL Procalcitonin (0.02-0.09) ng/mL Microbiology - Last 24 Hours (Table) 11/16/22 23:41 Blood Culture - Preliminary Blood Assessment and Plan Assessment: Acute hypoxemic respiratory failure secondary to suspected aspiration pneumonia with extensive multifocal patchy and confluent. Bronchovascular and peripheral groundglass opacities. The patient has had significant difficulty in swallowing with recent diagnosis of polyp of the suspected vocal cords or tonsil area. Influenza screen negative. RSV screen negative. COVID-19 screen negative. Pro-calcitonin 0.74. Continued on Zosyn and Decadron. Febrile illness secondary to above Leukocytosis secondary to above Suspected urinary tract infection Urine drug screen positive for benzodiazepines Altered mental status secondary to above, recovered Recent, 10/28/2022, ferret bite to the right hand. Status post tetanus and rabies shots Dysphagia with hoarseness secondary to soft tissue mass with secondary narrowing at the glottis measuring 1.1 cm. Cannot rule out neoplasm. Chronic and ongoing tobacco dependence Hypertension History of anxiety/depression History of ADHD Plan: The patient was seen and evaluated Chest x-ray, labs and medications reviewed Unable to complete even one sip of a barium swallow examination ENT consult appreciated, not able to perform a procedure here Recommend transfer to tertiary care facility due to her inability to swallow Suspect ongoing issues with aspiration Continue Zosyn Continue DuoNeb inhalations Continue Decadron Again educated regarding importance of complete smoking cessation We will continue to follow I have personally seen and examined the patient, performed the documentation and the assessment and plan as written. Number of minutes spent on the visit: 10.
[2022-11-18 13:02] VITALS: PULSE 91
--- NOTE | 2022-11-18 13:11 | P.DS ---
Providers Date of admission: 11/16/22 23:21 Expected date of discharge: 11/18/22 Attending physician: Lizzeth Fishman MD Consults: 11/17/22 09:57 Consult Physician Routine Consulting Provider: Carlo Mcdonald Consult Reason/Comments: extensive multifocal pneumonia, narrowing of glottis Do you want consulting provider notified?: Yes 11/17/22 11:22 Consult Physician Routine Consulting Provider: Britney Ibrahim Consult Reason/Comments: Recent ferret bite, fever, aspiraton pneumonia Do you want consulting provider notified?: Yes 11/17/22 12:40 Consult Physician Routine Consulting Provider: Jonn Guzman Consult Reason/Comments: soft tissue thickening of glottis, 1.1cm mass Do you want consulting provider notified?: Yes Primary care physician: Estelle Butterfield Hospital Course: Discharge Diagnosis: Acute respiratory failure with hypoxia secondary to multifocal pneumonia on top of underlying COPD, unable to rule out aspiration pneumonia. Sore throat, dysphonia and dysphagia secondary to laryngeal lesion. Narrowing of the glottis with Polyploid soft tissue growth on glottis measuring up to 1.1 cm, likely secondary to polyp versus metastatic lesion. Leukocytosis Abnormal urinalysis, no urinary complaints Nicotine dependence Anxiety and depression Chronic neck pain status post cervical fusion with placement of metal plate. Hospital Course: Patient is a very pleasant 52-year-old female with a past medical history of ADHD, depression, anxiety, COPD with continued nicotine dependence, and chronic back pain status post previous cervical fusion with placement of metal plate. Patient presented to the emergency department with a chief complaint of confusion. Per documentation on chart patient initially presented with confusion and lethargy. Upon arrival to our facility patient's confusion/delirium resolved and patient reported cough, congestion, hoarse voice, and sore throat 2 months. Patient reports she was seen by an ENT doctor, Dr. Stevens and told that she had a suspected polyp on her vocal cord and was recommended to follow-up outpatient for surgery. Patient reports since this time she has continued with worsening cough, congestion, hoarse voice, and sore throat and reports that she had not yet had time to follow-up for surgery as she was recently bitten by a Ferret and underwent treatment including rabies vaccinations, tetanus vaccination and antibiotics for treatment. Patient underwent full evaluation in the emergency department.EKG completed showing normal sinus rhythm at [address] brain completed the radiology report reviewed showing no acute intercranial process. Chest x-ray completed and radiology report reviewed stating new bilateral multifocal increased opacities and redemonstrated postsurgical changes of cervical spine. Labs completed and reviewed. CBC showing leukocytosis with WBC count of 20.6 with neutrophils of 17.1. BMP revealing mild hyponatremia with sodium 133, hypochloremia with chloride of 95, and slightly elevated creatinine of 1.13. Troponin was less than 0.012. Urinalysis showing 35 WBCs with moderate leukocytes and trace blood and protein. Urine drug screen was positive for benzodiazepines in which patient is prescribed. Serum alcohol negative. Influenza A, influenza B, RSV, and Covid PCR were all negative. Patient admitted under our services. Upon evaluation this morning, patient reporting worsening pain in her throat. Order placed for CT neck and chest with contrast and upon completion radiology report was reviewed showing abnormal soft tissue thickening and narrowing of the glottis, polyploid soft tissue present measuring up to 1.1 cm, mild to moderate tonsillar hypertrophy, extensive multifocal patchy and confluent Peribronchovascular and peripheral groundglass opacities with reactive borderline mildly enlarged mediastinal/hilar adenopathy and a tiny hiatal hernia. Consult was placed for ENT for evaluation of narrowing of glottis and polyploid soft tissue measuring 1.1 cm. Consult also placed to pulmonology secondary to extensive multifocal pneumonia, possibly aspiration, however also concerns for malignant process. Patient was evaluated by therapeutic assistant and ENT physician. ENT physician recommending patient be evaluated by ENT surgeon for evaluation of laryngeal lesion. Patient was evaluated by speech and language pathologist and underwent Video fluoroscopic swallow evaluation, and per speech and language pathologist patient failed swallow evaluation and to remain Strict NPO. Airplane Woodworker evaluated the patient as well and also recommending patient being transferred to tertiary care center for evaluation by ENT surgeon. Patient to continue treatment for aspiration pneumonia with Zosyn 3.375 g every 8 hours. Called [facility] transfer center. Patient has been accepted for transfer to [facility] by Dr. yL Tapia with consult to ENT. Patient medically optimized for EMS transfer to [facility] at this time. Patient and patient's significant other at bedside updated on transfer plans. Physical exam: Vital signs reviewed and stable. General: Nontoxic, no distress and appears stated age. Derm: Skin warm and dry, normal coloration for ethnicity. Head: Atraumatic, normocephalic and symmetric. Eyes: EOMs intact, no lid lag, and anicteric sclera Mouth: no lip lesions, mucus membranes moist. Slight erythema to pharnyx and mild erythema & edema of tonsils. Voice Hoarse. Cardiovascular: regular rate and rhythm with normal S1S2, no murmur, positive posterior tibial pulses bilaterally, and cap refill < 2 seconds. Lungs: Respirations even, regular, and unlabored on oxygen. Lungs with diffuse coarse rhonchi. No crackles, rales, or wheezing, and no accessory muscle usage. Abdominal: soft, nontender to palpation, no guarding, no appreciable organomegaly Ext: ROM intact. No gross muscle atrophy, no edema, no contractures Neuro: Speech clear with hoarse voice, face symmetrical and CN II-XII grossly intact with no noted focal neuro deficits Psych: Alert and oriented to person, place, time, and situation. Appropriate and pleasant affect. Patient Being transferred to [facility] on 11/18/22 at 12:49 PM. Patient was seen independently by Nurse Practitioner. This document was prepared using [employer] dictation software. Please allow for errors in trimmer operator three knife while rare they do occur. I reviewed the documentation as provided by the OTF above, who is the original author of this note. I agree with the documented assessment and plan, with the following changes: none Patient Condition at Discharge: Stable Plan - Discharge Summary Discharge Rx Participant: No New Discharge Prescriptions: No Action clonazePAM [KlonoPIN] 0.5 mg PO BID PRN PRN Reason: Anxiety Escitalopram [Lexapro] 20 mg PO DAILY Prazosin [Minipress] 5 mg PO HS Methylphenidate HCl [Ritalin] 20 mg PO DAILY@1200 Methylphenidate HCl [Ritalin] 40 mg PO DAILY ARIPiprazole [Abilify] 20 mg PO DAILY Gabapentin [Neurontin] 800 mg PO Q8H hydrOXYzine pamoate 50 mg PO TID PRN PRN Reason: anxiety or insomnia Discharge Medication List clonazePAM [KlonoPIN] 0.5 mg PO BID PRN 10/23/19 [History] Escitalopram [Lexapro] 20 mg PO DAILY 10/20/20 [History] Methylphenidate HCl [Ritalin] 20 mg PO DAILY@1200 10/23/21 [History] Methylphenidate HCl [Ritalin] 40 mg PO DAILY 10/23/21 [History] Prazosin [Minipress] 5 mg PO HS 10/23/21 [History] ARIPiprazole [Abilify] 20 mg PO DAILY 11/17/22 [History] Gabapentin [Neurontin] 800 mg PO Q8H 11/17/22 [History] hydrOXYzine pamoate 50 mg PO TID PRN 11/17/22 [History] Activity/Diet/Wound Care/Special Instructions: Patient being transferred to [facility] and has been accepted for admission under Dr. Ly Tapia for treatment of aspiration pneumonia with consult to ENT for evaluation of 1.1 cm soft tissue lesions/polydipsia/mass on glottis along with thickening and narrowing of glottis. Patient strict NPO, secondary to failed swallow evaluations due to aspiration. Thank you for allowing us to participate in your care, it was truly a pleasure having you for our patient!!! Discharge Disposition: TRANSFER TO [facility]
--- NOTE | 2022-11-18 14:58 | P.PN ---
Subjective Progress Note Date: 11/18/22 Principal diagnosis: Aspiration pneumonia Patient is a 52-year-old female who was brought into the hospital with mental status changes also complaining of difficulty swallowing choking on the food and noticed to have evidence of pneumonia and abnormal CT of the soft tis zena of the neck. on today's evaluation that is 11/18/2022, the patient denies having any fever or any chills, the patient denies having any chest pain she can have a cough but not able to bring up any sputum no nausea vomiting or abdominal pain or diarrhea Objective - Vital Signs Vital signs: Vital Signs Temp 98.1 F 11/18/22 07:58 Pulse 90 11/18/22 09:29 Resp 18 11/18/22 07:58 BP 118/58 11/18/22 07:58 Pulse Ox 94 L 11/18/22 09:17 FiO2 Intake & Output 11/17/22 11/18/22 11/18/22 18:59 06:59 18:59 Weight 64.41 kg Other: # Voids 3 - Exam GENERAL DESCRIPTION: Middle-aged female lying in bed in no distress RESPIRATORY SYSTEM: Unlabored breathing , coarse breath sounds bilaterally HEART: S1 S2 regular rate and rhythm , ABDOMEN: Soft , no tenderness EXTREMITIES: No edema feet - Labs CBC & Chem 7: 11/18/22 06:27 11/18/22 06:27 Labs: Abnormal Lab Results - Last 24 Hours (Table) 11/17/22 11/17/22 11/17/22 Range/Units 18:21 20:25 22:42 POC Glucose (mg/dL) 166 H 213 H 257 H (70-110) mg/dL 11/18/22 11/18/22 Range/Units 02:14 07:37 POC Glucose (mg/dL) 208 H 165 H (70-110) mg/dL Microbiology - Last 24 Hours (Table) 11/16/22 23:41 Blood Culture - Preliminary Blood Assessment and Plan (1) Aspiration pneumonia Status: Acute Code(s): J69.0 - PNEUMONITIS DUE TO INHALATION OF FOOD AND VOMIT SNOMED Code(s): 729217393 Plan: 1patient was in the hospital with sepsis and has been did have fever elevated white count with evidence of multifocal infiltrate on the chest x-ray and CT patient has been complaining of difficulty swallowing and choking on the food likely concerning for aspiration pneumonia and need to cover for the polymicrobial sarah usually associated with such infection. 2patient also have recent history of ferret bite on the right thumb and index finger currently with no evidence of any local cellulitis and apparently the patient has received rabies vaccination at [facility] 3-patient to Zosyn 3.375 g every 8 hours, along with aspiration precaution currently being transferred to [facility] to be evaluated by ENT surgeon Time with Patient: Less than 30
--- NOTE | 2022-11-18 15:05 | CDI ---
Documentation Clarification Form Date: 11/18/2022 2:39:30 PM From: Yamileth Turner RN CCDS Phone: [phone] Admit Date: 11/16/2022 11:21:00 PM Patient Name: Isabell Winston Visit Number: [id number] Discharge Date: ATTENTION: The Clinical Documentation Specialists (CDI) and [facility] Coding Staff appreciate your assistance in clarifying documentation. Please respond to the clarification below the line at the bottom and electronically sign. The CDI & [facility] Coding staff will review the response and follow-up if needed. Please note: Queries are made part of the Legal Health Record. If you have any questions, please contact the author of this message via ITS. Dr. Washington, Sepsis is being documented by ID, 11/17, ID consult. Based on this information and the findings below, is there an additional diagnosis that is clinically appropriate for this patient? History/Risk Factors: 52-year-old female presents to the ED for confusion has been battling an upper respiratory infection and sore throat with nasal congestion. Medical history: HTN, COPD, GERD and DDD. 11/16/ H&P. Clinical Indicators: Admitting diagnosis: Acute respiratory failure and Aspiration pneumonia Labs 11/16: Wbc 20.6; Neutrophils 17.1 Blood cultures: 11/16 No growth after 24 hours Vitals signs: 11/16 B/P 120/73, HR 105, Temp 102.6F Oral, RR 20, SpO2 92% 4L CXR, 11/16: Bilateral multifocal increased opacities. 11/17, ID consult: patient was in the hospital with sepsis and has a fever elevated white count with evidence of multifocal infiltrate on CXR. Treatment: 11/16 Tylenol 650mg po x 1; ID Consult: See above Antibiotics: 11/16 Azithromycin IVPB x 1; Ceftriaxone IVPB x 1; 11/17 Zithromax PO Daily x 2 doses, Zoysn IVPB Q8HR; Ceftriaxone IVPB Q24H x 4 bags. IV Bolus: 11/16 0.9NS 1L IV Bolus Is there an additional diagnosis that is clinically appropriate for this patient? [ X ] Sepsis, present on admission [ ] Sepsis ruled out [ ] Other, please specify [ ] Unable to determine SIRS Criteria: 2 or more of the following may indicate SIRS Temperature < 96.8F (36C) or > 101.0F (38.3C) Heart Rate > 90 bpm Respiratory Rate > 20 breaths/min or PaCO2 < 32 mmHg White Blood Cell Count > 12,000 or < 4,000 cells/mm3 or > 10% bands (Template Last Reviewed: July 2022) MTDD
== END 2022-11-18 14:48 | disposition short-term general hospital (02) | DRG 720 ==
LOC: EC 20:26 → 4SSUR 23:21 → 6NMEDSUR 11-17 09:09
PROVIDERS: ADMIT Internal Medicine; ATTEND Internal Medicine
DX: A41.9 Sepsis, unspecified organism (principal); J96.01 Acute respiratory failure with hypoxia; J69.0 Pneumonitis due to inhalation of food and vomit; N17.9 Acute kidney failure, unspecified; F05 Delirium due to known physiological condition; R13.13 Dysphagia, pharyngeal phase; J44.0 Chronic obstructive pulmonary disease with (acute) lower respiratory infection; E87.1 Hypo-osmolality and hyponatremia; E87.8 Other disorders of electrolyte and fluid balance, not elsewhere classified; I10 Essential (primary) hypertension; F32.A Depression, unspecified; D53.9 Nutritional anemia, unspecified; J44.9 Chronic obstructive pulmonary disease, unspecified; J38.7 Other diseases of larynx; F41.9 Anxiety disorder, unspecified; G89.28 Other chronic postprocedural pain; M51.36 Other intervertebral disc degeneration, lumbar region; I49.1 Atrial premature depolarization; T44.3X5A Adverse effect of other parasympatholytics [anticholinergics and antimuscarinics] and spasmolytics, initial encounter; F90.9 Attention-deficit hyperactivity disorder, unspecified type; F17.210 Nicotine dependence, cigarettes, uncomplicated; J35.1 Hypertrophy of tonsils; N39.0 Urinary tract infection, site not specified; R49.0 Dysphonia; K44.9 Diaphragmatic hernia without obstruction or gangrene; K21.9 Gastro-esophageal reflux disease without esophagitis; G89.29 Other chronic pain; R13.10 Dysphagia, unspecified; M54.9 Dorsalgia, unspecified; R59.0 Localized enlarged lymph nodes; Z20.822 Contact with and (suspected) exposure to COVID-19; Z28.310 Unvaccinated for COVID-19; Z98.1 Arthrodesis status; Z80.1 Family history of malignant neoplasm of trachea, bronchus and lung; Z86.14 Personal history of Methicillin resistant Staphylococcus aureus infection; I25.2 Old myocardial infarction; Z88.6 Allergy status to analgesic agent; Z88.5 Allergy status to narcotic agent; Z91.013 Allergy to seafood; Z79.891 Long term (current) use of opiate analgesic; Z79.899 Other long term (current) drug therapy; Z86.19 Personal history of other infectious and parasitic diseases; W55.8 Contact with other mammals
CPT/HCPCS: 36415; 70450; 70491; 71045; 71046; 71260; 74230; 80048; 80053; 80306; 80320; 81001; 82140; 83735; 84145; 84484; 85025; 85027; 85610; 85730; 86140; 87449; 87636; 93005; 94640; 94760; 96361; 96365; 96366; 96367; 96375; 96376; 99285

== ENCOUNTER 2023-01-01 01:20 | Emergency (ER) | payer OTHER ==
[2023-01-01] MEDS ORDERED: SODIUM CHLORIDE 0.9% 1,000 ML IV STA (01:25)
[2023-01-01] MEDS ORDERED: ONDANSETRON 4 MG/2 ML VIAL IVP STA (01:25)
[2023-01-01] MEDS ORDERED: PANTOPRAZOLE 40 MG/10 ML VIAL IVP STA (01:25)
[2023-01-01] MEDS ORDERED: MORPHINE SULFATE 4 MG/ML SYRINGE IVP STA (01:26)
[2023-01-01 01:27] VITALS: TEMP 98.2
--- NOTE | 2023-01-01 01:37 | ED ---
General Adult HPI - General Chief complaint: Abdominal Pain Stated complaint: Flank Pain Time Seen by Provider: 01/01/23 01:26 Source: patient, RN notes reviewed, old records reviewed Mode of arrival: EMS Limitations: no limitations - History of Present Illness Initial comments: Patient is a 52-year-old female with past medical history remarkable for COPD, hypertension, chronic back pain, kidney stones who presents emergency Department complaining of left-sided flank pain. Began suddenly this evening. Begins in her left flank and wraps around towards her left groin. Denies any diarrhea or constipation. Denies any obvious dysuria or hematuria. States the pain reminds her of previous episodes of stones as well as when she is having kidney issues in the past. Patient is very jumpy. Denies drug use. Presents for further evaluation this time. Denies chest pain or shortness breath. Denies any fevers. Denies being . - Related Data Home Medications Medication Instructions Recorded Confirmed clonazePAM [KlonoPIN] 0.5 mg PO BID PRN 10/23/19 11/17/22 Escitalopram [Lexapro] 20 mg PO DAILY 10/20/20 11/17/22 Methylphenidate HCl [Ritalin] 20 mg PO DAILY@1200 10/23/21 11/17/22 Methylphenidate HCl [Ritalin] 40 mg PO DAILY 10/23/21 11/17/22 Prazosin [Minipress] 5 mg PO HS 10/23/21 11/17/22 ARIPiprazole [Abilify] 20 mg PO DAILY 11/17/22 11/17/22 Gabapentin [Neurontin] 800 mg PO Q8H 11/17/22 11/17/22 hydrOXYzine pamoate 50 mg PO TID PRN 11/17/22 11/17/22 Allergies Allergy/AdvReac Type Severity Reaction Status Date / Time ketorolac [From Toradol] Allergy Anaphylaxis Verified 08/08/22 13:10 shellfish derived Allergy Anaphylaxis Verified 08/08/22 13:10 tramadol [From Ultram] Allergy Anaphylaxis Verified 08/08/22 13:10 ibuprofen AdvReac HIVES Verified 08/08/22 13:10 Review of Systems ROS Statement: Those systems with pertinent positive or pertinent negative responses have been documented in the HPI. Review of Systems: CONST: Denies fever EYES: Denies blurry vision ENT: Denies nasal congestion C/V: Denies Chest pain RESP: Denies shortness of breath GI: Endorses left flank pain : Denies dysuria SKIN: Denies rash. MSK: Denies joint pain. NEURO: Denies headache ROS Other: All systems not noted in ROS Statement are negative. Past Medical History Past Medical History: COPD, GERD/Reflux, Hypertension, Pneumonia Additional Past Medical History / Comment(s): chronic back pain, lumbar degenerative disc disease, insomnia, hx shingles, hiatal hernia, kidney stones. 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, migraines,; NECK PAIN , Rabies 09/17 Last Myocardial Infarction Date:: 08/27/2016 History of Any Multi-Drug Resistant Organisms: MRSA Date of last positivie culture/infection: 09/22/09 MDRO Source:: neck Past Surgical History: Appendectomy, Back Surgery, Section, Cholecystectomy, Orthopedic Surgery Additional Past Surgical History / Comment(s): Cervical spine fusion with insertion of a metal plate, EGD, colonoscopy, radiofrequency ablation, Past Anesthesia/Blood Transfusion Reactions: No Reported Reaction Additional Past Anesthesia/Blood Transfusion Reaction / Comment(s): CLAUST ROPHOBIA Past Psychological History: ADD/ADHD, Anxiety, Panic Disorder Smoking Status: Current some day smoker Past Alcohol Use History: None Reported Past Drug Use History: None Reported - Past Family History Father Family Medical History: Cancer Additional Family Medical History / Comment(s): Father at age 48 from lung cancer. Mother Family Medical History: Congestive Heart Failure (CHF), CVA/TIA Additional Family Medical History / Comment(s): Mother is alive at age 68. She has suffered from a CVA and has chronic back problems. Patient has 2 brothers and 4 sisters with no major medical problems. General Exam - General Exam Comments Initial Comments: General: Appears in mild to moderate distress secondary to pain. HEAD: Normal with no signs of head trauma. EYES: PERRLA, EOMI, conjunctiva normal, no discharge. ENT: Hearing grossly intact, normal oropharynx. RESPIRATORY: Clear breath sounds bilaterally. No wheezes, rales, or rhonchi. C/V: Regular rate and rhythm. S1 and S2 auscultated, no edema, peripheral pulses 2+ and intact throughout ABD: Abdomen soft, nondistended. Tender to palpation of the left flank. No guarding. No rebound tenderness. No peritoneal signs. EXT: Normal range of motion, no obvious deformity SKIN: No rashes or lesions observed on exposed skin. NEURO: Alert and oriented 4. Limitations: no limitations Course Vital Signs 01/01/23 01/01/23 01:22 03:33 Temperature 98.2 F Pulse Rate 102 H 90 Respiratory 18 Rate Blood Pressure 150/95 O2 Sat by Pulse 99 Oximetry Medical Decision Making - Medical Decision Making Was pt. sent in by a medical professional or institution (, PA, [employer], urgent care, hospital, or fci...) When possible be specific @ -No Did you speak to anyone other than the patient for history (EMS, parent, family, police, friend...)? What history was obtained from this source @ -No Did you review nursing and triage notes (agree or disagree)? Why? @ -I reviewed and agree with nursing and triage notes Were old charts reviewed (outside hosp., previous admission, EMS record, old EKG, old radiological studies, urgent care reports/EKG's, fci records)? Report findings @ -Old charts reviewed from October 2022 when she had multifocal pneumonia and was transferred for ENT evaluation for laryngeal lesion. Differential Diagnosis (chest pain, altered mental status, abdominal pain women, abdominal pain men, vaginal bleeding, weakness, fever, dyspnea, syncope, headach e, dizziness, GI bleed, back pain, seizure, CVA, palpatations, mental health, musculoskeletal)? @ -Differential Abdominal Pain Women: Appendicitis, Cholecystitis, diverticulosis, ischemic bowel, pancreatitis, hepatitis, UTI, gastroenteritis, AAA, incarcerated hernia, bowel obstruction, constipation, inflammatory bowel, hepatitis, peptic ulcer disease, splenic infarction, perforated viscus, vulvitis, ovarian torsion, PID, kidney stone, placenta abruption, this is not meant to be an all-inclusive list EKG interpreted by me (3pts min.). @ -As above X-rays interpreted by me (1pt min.). @ -None done CT interpreted by me (1pt min.). @ -CT imaging revealed no obvious acute intra-abdominal process. U/S interpreted by me (1pt. min.). @ -None done What testing was considered but not performed or refused? (CT, X-rays, U/S, labs)? Why? @ -None What meds were considered but not given or refused? Why? @ -None Did you discuss the management of the patient with other professionals (professionals i.e. , PA, [employer], lab, RT, psych nurse, sr. social media & mobile manager, furnace and wash equipment operator, teacher, corporate officer, protective services case worker)? Give summary @ -No Was smoking cessation discussed for >3mins.? @ -No Was critical care preformed (if so, how long)? @ -No Were there social determinants of health that impacted care today? How? (Homelessness, low income, unemployed, alcoholism, drug addiction, transportation, low edu. Level, literacy, decrease access to med. care, halfway, rehab)? @ -No Was there de-escalation of care discussed even if they declined (Discuss DNR or withdrawal of care, Hospice)? DNR status @ -No What co-morbidities impacted this encounter? (DM, HTN, Smoking, COPD, CAD, Cancer, CVA, ARF, Chemo, Hep., AIDS, mental health diagnosis, sleep apnea, morbid obesity)? @ -None Was patient admitted / discharged? Hospital course, mention meds given and route, prescriptions, significant lab abnormalities, going to OR and other pertinent info. @ -Based on the patient's presentation and physical exam, I'm concerned for left flank pain. Acute intra-abdominal process could be occurring at this time. Does appear to be a kidney stone based on her presentation. We will obtain CT abdomen and pelvis as well as abdominal laboratory studies. She'll be given symptomatic treatment with IV fluids, Zofran, morphine, Protonix. She was in agreement this plan. Vital signs are within acceptable limits. EKG showed no signs of acute ischemia.Patient's laboratory studies reveal a contaminated urine with small amount of blood present. However this is unreliable due to the contamination. There are [address] abdomen and pelvis revealed no obvious acute process. No evidence of kidney stones. There was a long delay in obtaining radiology read for her CT imaging, over 2 hours. I updated the patient and we discussed her results. Her pain is improved. I believe it is safer to be discharged home. She was in agreement with this plan. Strict return precautions discussed. I instructed the patient to follow up with their PCP in the next 1-3 days. I explained that the patient should return to the emergency department if they experience any worsening symptoms. Strict return precautions were discussed with the patient. The patient expressed understanding of these instructions. I answered all questions that the patient had. The patient was discharged home in good condition with their prescriptions and follow up information. Undiagnosed new problem with uncertain prognosis? @ -No Drug Therapy requiring intensive monitoring for toxicity (Heparin, Nitro, Insulin, Cardizem)? @ -No Were any procedures done? @ -No Diagnosis/symptom? @ -Left flank pain, abdominal pain of unknown etiology Acute, or Chronic, or Acute on Chronic? @ -Acute on chronic Uncomplicated (without systemic symptoms) or Complicated (systemic symptoms)? @ -Uncomplicated Side effects of treatment? @ -none Exacerbation, Progression, or Severe Exacerbation] @ -no Poses a threat to life or bodily function? @ -no - Lab Data Result diagrams: 01/01/23 01:37 01/01/23 01:37 Lab Results 01/01/23 01/01/23 01/01/23 Range/Units 01:37 01:37 01:37 WBC 8.0 (3.8-10.6) k/uL RBC 4.19 (3.80-5.40) m/uL Hgb 12.5 (11.4-16.0) gm/dL Hct 37.9 (34.0-46.0) % MCV 90.6 (80.0-100.0) fL MCH 29.8 (25.0-35.0) pg MCHC 32.9 (31.0-37.0) g/dL RDW 14.1 (11.5-15.5) % Plt Count 359 (150-450) k/uL MPV 6.7 Neutrophils % 59 % Lymphocytes % 26 % Monocytes % 9 % Eosinophils % 4 % Basophils % 0 % Neutrophils # 4.7 (1.3-7.7) k/uL Lymphocytes # 2.1 (1.0-4.8) k/uL Monocytes # 0.7 (0-1.0) k/uL Eosinophils # 0.3 (0-0.7) k/uL Basophils # 0.0 (0-0.2) k/uL Sodium 141 (137-145) mmol/L Potassium 3.9 (3.5-5.1) mmol/L Chloride 107 (98-107) mmol/L Carbon Dioxide 22 (22-30) mmol/L Anion Gap 12 mmol/L BUN 12 (7-17) mg/dL Creatinine 0.89 (0.52-1.04) mg/dL Est GFR (CKD-EPI)AfAm 85 (>60 ml/min/1.73 sqM) Est GFR (CKD-EPI)NonAf 74 (>60 ml/min/1.73 sqM) Glucose 95 (74-99) mg/dL Calcium 9.4 (8.4-10.2) mg/dL Total Bilirubin 0.3 (0.2-1.3) mg/dL AST 18 (14-36) U/L ALT 15 (4-34) U/L Alkaline Phosphatase 111 (38-126) U/L Total Protein 6.9 (6.3-8.2) g/dL Albumin 4.0 (3.5-5.0) g/dL Amylase 35 (30-110) U/L Lipase 101 (23-300) U/L Urine Color Yellow Urine Appearance Cloudy H (Clear) Urine pH 6.0 (5.0-8.0) Ur Specific [place] 1.024 (1.001-1.035) Urine Protein Trace H (Negative) Urine Glucose (UA) Negative (Negative) Urine Ketones Negative (Negative) Urine Blood Small H (Negative) Urine Nitrite Negative (Negative) Urine Bilirubin Negative (Negative) Urine Urobilinogen <2.0 (<2.0) mg/dL Ur Leukocyte Esterase Moderate H (Negative) Urine RBC 6 H (0-5) /hpf Urine WBC 9 H (0-5) /hpf Ur Squamous Epith Cells 22 H (0-4) /hpf Urine Bacteria Rare H (None) /hpf Urine Mucus Occasional H (None) /hpf Urine Opiates Screen (NotDetected) Ur Oxycodone Screen (NotDetected) Urine Methadone Screen (NotDetected) Ur Propoxyphene Screen (NotDetected) Ur Barbiturates Screen (NotDetected) U Tricyclic Antidepress (NotDetected) Ur Phencyclidine Scrn (NotDetected) Ur Amphetamines Screen (NotDetected) U Methamphetamines Scrn (NotDetected) U Benzodiazepines Scrn (NotDetected) Urine Cocaine Screen (NotDetected) U Marijuana (THC) Screen (NotDetected) 01/01/23 Range/Units 01:37 WBC (3.8-10.6) k/uL RBC (3.80-5.40) m/uL Hgb (11.4-16.0) gm/dL Hct (34.0-46.0) % MCV (80.0-100.0) fL MCH (25.0-35.0) pg MCHC (31.0-37.0) g/dL RDW (11.5-15.5) % Plt Count (150-450) k/uL MPV Neutrophils % % Lymphocytes % % Monocytes % % Eosinophils % % Basophils % % Neutrophils # (1.3-7.7) k/uL Lymphocytes # (1.0-4.8) k/uL Monocytes # (0-1.0) k/uL Eosinophils # (0-0.7) k/uL Basophils # (0-0.2) k/uL Sodium (137-145) mmol/L Potassium (3.5-5.1) mmol/L Chloride (98-107) mmol/L Carbon Dioxide (22-30) mmol/L Anion Gap mmol/L BUN (7-17) mg/dL Creatinine (0.52-1.04) mg/dL Est GFR (CKD-EPI)AfAm (>60 ml/min/1.73 sqM) Est GFR (CKD-EPI)NonAf (>60 ml/min/1.73 sqM) Glucose (74-99) mg/dL Calcium (8.4-10.2) mg/dL Total Bilirubin (0.2-1.3) mg/dL AST (14-36) U/L ALT (4-34) U/L Alkaline Phosphatase (38-126) U/L Total Protein (6.3-8.2) g/dL Albumin (3.5-5.0) g/dL Amylase (30-110) U/L Lipase (23-300) U/L Urine Color Urine Appearance (Clear) Urine pH (5.0-8.0) Ur Specific [place] (1.001-1.035) Urine Protein (Negative) Urine Glucose (UA) (Negative) Urine Ketones (Negative) Urine Blood (Negative) Urine Nitrite (Negative) Urine Bilirubin (Negative) Urine Urobilinogen (<2.0) mg/dL Ur Leukocyte Esterase (Negative) Urine RBC (0-5) /hpf Urine WBC (0-5) /hpf Ur Squamous Epith Cells (0-4) /hpf Urine Bacteria (None) /hpf Urine Mucus (None) /hpf Urine Opiates Screen Not Detected (NotDetected) Ur Oxycodone Screen Not Detected (NotDetected) Urine Methadone Screen Not Detected (NotDetected) Ur Propoxyphene Screen Not Detected (NotDetected) Ur Barbiturates Screen Not Detected (NotDetected) U Tricyclic Antidepress Not Detected (NotDetected) Ur Phencyclidine Scrn Not Detected (NotDetected) Ur Amphetamines Screen Not Detected (NotDetected) U Methamphetamines Scrn Not Detected (NotDetected) U Benzodiazepines Scrn Not Detected (NotDetected) Urine Cocaine Screen Not Detected (NotDetected) U Marijuana (THC) Screen Not Detected (NotDetected) - EKG Data -: EKG Interpreted by Me EKG Comments: 12-lead Electrocardiogram Interpretation Note EKG was reviewed and interpreted by myself. 12-lead ECG performed at 0127. Is interpreted by me as revealing normal sinus rhythm at a rate of 91 beats per minute. [place] is normal. [place] Intervals 164 ms, QRS duration 96 ms, QTc is 397 ms.. There were no ST or T wave abnormalities to suggest myocardial ischemia or injury. R wave progression across the precordium was satisfactory. By my interpretation this EKG is non-diagnostic for acute ischemia. Disposition Clinical Impression: Left flank pain, Abdominal pain of unknown etiology Disposition: HOME SELF-CARE Condition: Good Instructions (If sedation given, give patient instructions): Abdominal Pain (ED) Is patient prescribed a controlled substance at d/c from ED?: No Referrals: Estelle Butterfield DO [Primary Care Provider] - 1-2 days Time of Disposition: 04:35
[2023-01-01 01:50] LABS: Basophils % (A) 0 %; Eosinophils # (A) 0.3 k/uL (0-0.7); Eosinophils % (A) 4 %; HCT 37.9 % (34.0-46.0); HGB 12.5 gm/dL (11.4-16.0); Lymphocytes # (A) 2.1 k/uL (1.0-4.8); Lymphocytes % (A) 26 %; MCH 29.8 pg (25.0-35.0); MCHC 32.9 g/dL (31.0-37.0); MCV 90.6 fL (80.0-100.0); Mean Platelet Volume 6.7; Monocytes # (A) 0.7 k/uL (0-1.0); Monocytes % (A) 9 %; Neutrophils # (A) 4.7 k/uL (1.3-7.7); Neutrophils % (A) 59 %; Platelet Count 359 k/uL (150-450); RBC 4.19 m/uL (3.80-5.40); RDW 14.1 % (11.5-15.5)
[2023-01-01 02:05] LABS: ALT 15 U/L (4-34); AST 18 U/L (14-36); African American GFR (CKD) 85 (>60 ml/min/1.73 sqM); Alkaline Phosphatase 111 U/L (38-126); Amylase 35 U/L (30-110); Anion Gap 12 mmol/L; Blood Urea Nitrogen 12 mg/dL (7-17); Calcium 9.4 mg/dL (8.4-10.2); Carbon Dioxide 22 mmol/L (22-30); Chloride 107 mmol/L (98-107); Glucose 95 mg/dL (74-99); Lipase 101 U/L (23-300); Non-African American GFR(CKD) 74 (>60 ml/min/1.73 sqM); Potassium 3.9 mmol/L (3.5-5.1); Sodium 141 mmol/L (137-145); Total Bilirubin 0.3 mg/dL (0.2-1.3); Total Protein 6.9 g/dL (6.3-8.2)
[2023-01-01 02:17] LABS: Appearance,Urine Cloudy (Clear); Bacteria,Urine Rare /hpf; Bilirubin,Urine Negative (Negative); Blood,Urine Small (Negative); Color,Urine Yellow; Glucose,Urine (UA) Negative (Negative); Ketones,Urine Negative (Negative); Leukocyte Esterase,Urine Moderate (Negative); Mucus,Urine Occasional /hpf; Nitrite,Urine Negative (Negative); Protein,Urine Trace (Negative); RBC,Urine 6 /hpf (0-5); Specific Gravity,Urine 1.024 (1.001-1.035); Squamous Epithelial Cell,Urine 22 /hpf (0-4); Urobilinogen,Urine <2.0 mg/dL (<2.0); WBC,Urine 9 /hpf (0-5)
[2023-01-01 02:25] LABS: Amphetamine Screen,Urine Not Detected (NotDetected); Barbiturate Screen,Urine Not Detected (NotDetected); Benzodiazepines Screen,Urine Not Detected (NotDetected); Cocaine Screen,Urine Not Detected (NotDetected); Methadone Screen, Urine Not Detected (NotDetected); Opiate Screen,Urine Not Detected (NotDetected); Oxycodone Screen, Urine Not Detected (NotDetected); Phencyclidine Screen,Urine Not Detected (NotDetected); Tricyclic Antidepressant,Urine Not Detected (NotDetected); Urn Cannabinoid Scrn Not Detected (NotDetected)
[2023-01-01] MEDS ORDERED: HYDROmorphone 0.5 MG/0.5 ML SYRINGE IVP STA (02:35)
--- NOTE | 2023-01-01 04:38 | CT ---
EXAMINATION TYPE: CT abdomen pelvis wo con DATE OF EXAM: 01/01/2023 HISTORY: left flank pain CT DLP: 508.3 mGycm. Automated Exposure Control for Dose Reduction was Utilized. TECHNIQUE: CT scan of the abdomen and pelvis is performed without oral or IV contrast. COMPARISON: CT abdomen and pelvis 2018 FINDINGS: Within the limitations of a non-contrast study, the following observations are made. LUNG BASES: No significant abnormality is appreciated. LIVER/GB: Cholecystectomy clips are redemonstrated. PANCREAS: No significant abnormality is seen. SPLEEN: No significant abnormality is seen. ADRENALS: No significant abnormality is seen. KIDNEYS: No renal stones or hydronephrosis is present bilaterally. BOWEL: Appendix is surgically absent. GENITAL ORGANS: Anteverted uterus. LYMPH NODES: No greater than 1cm abdominal or pelvic lymph nodes are appreciated. OSSEOUS STRUCTURES: Multilevel spurring in the spine. OTHER: No significant additional abnormality is seen. IMPRESSION: No renal stones or hydronephrosis is seen bilaterally. No acute findings identified on no ncontrast CT.
[2023-01-01 05:14] VITALS: BP 125/97; PULSE 80; RESP 20
== END 2023-01-01 05:13 | disposition home or self-care (01) ==
LOC: EC 01:20
DX: R10.9 Unspecified abdominal pain (principal); J44.9 Chronic obstructive pulmonary disease, unspecified; K21.9 Gastro-esophageal reflux disease without esophagitis; I10 Essential (primary) hypertension; I25.2 Old myocardial infarction; F41.9 Anxiety disorder, unspecified; F17.200 Nicotine dependence, unspecified, uncomplicated; Z88.6 Allergy status to analgesic agent; Z88.5 Allergy status to narcotic agent; Z88.8 Allergy status to other drugs, medicaments and biological substances; Z91.013 Allergy to seafood; Z79.899 Other long term (current) drug therapy
CPT/HCPCS: 36415; 93005; 80053; 82150; 83690; 85025; 81001; 80306; 74176; 99285; 96374; 96375 ×3; 96361; J2270; J2405; C9113; J1170

== ENCOUNTER 2023-02-25 09:54 | Inpatient (IN) | payer MEDICAID, OTHER ==
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
[2023-02-25 11:04] LABS: Amphetamine Screen,Urine Not Detected (NotDetected); Barbiturate Screen,Urine Not Detected (NotDetected); Benzodiazepines Screen,Urine Not Detected (NotDetected); Cocaine Screen,Urine Not Detected (NotDetected); Methadone Screen, Urine Not Detected (NotDetected); Opiate Screen,Urine Not Detected (NotDetected); Oxycodone Screen, Urine Not Detected (NotDetected); Phencyclidine Screen,Urine Not Detected (NotDetected); Tricyclic Antidepressant,Urine Not Detected (NotDetected); Urn Cannabinoid Scrn Not Detected (NotDetected)
[2023-02-25 15:23] LABS: Amorphous Sediment,Urine Moderate /hpf; Appearance,Urine Turbid (Clear); Bilirubin,Urine Negative (Negative); Blood,Urine Trace (Negative); Color,Urine Light Red; Glucose,Urine (UA) Negative (Negative); Ketones,Urine Trace (Negative); Leukocyte Esterase,Urine Negative (Negative); Mucus,Urine Many /hpf; Nitrite,Urine Negative (Negative); PH, Urine 5.5 (5.0-8.0); Protein,Urine 2+ (Negative); RBC,Urine 14 /hpf (0-5); Specific Gravity,Urine 1.033 (1.001-1.035); Squamous Epithelial Cell,Urine 23 /hpf (0-4); Urobilinogen,Urine <2.0 mg/dL (<2.0)
[2023-02-25] MEDS ORDERED: MAGNESIUM HYDROXIDE 2,400 MG/30 ML CUP PO PRN (15:55)
[2023-02-25] MEDS ORDERED: ONDANSETRON 4 MG TAB PO PRN (15:57)
[2023-02-25] MEDS ORDERED: OLANZapine 10 MG VIAL IM PRN (15:59)
[2023-02-25] MEDS: OLANZapine 5 MG TAB PO PRN (16:35)
[2023-02-25] MEDS: hydrOXYzine pamoate 25 MG CAP PO PRN (16:36)
[2023-02-25] MEDS: GABAPENTIN 300 MG CAP PO SCH (17:13)
[2023-02-25] MEDS ORDERED: OLANZapine 10 MG TAB PO ONE (17:45)
--- NOTE | 2023-02-25 20:58 | P.PN ---
Progress Note - Text Progress Note Date: 02/25/23 Attempted to see the patient in the mental health unit at 1999 on 02/25. Informed by the mental health unit RN that the patient is currently sedated and inappropriate for evaluation.
[2023-02-26] MEDS: GABAPENTIN 300 MG CAP PO SCH ×4 (05:42→21:08)
[2023-02-26] MEDS: PRAZOSIN 1 MG CAP PO SCH ×2 (05:42→21:08)
[2023-02-26] MEDS: clonazePAM 0.5 MG TAB PO PRN (06:22)
[2023-02-26] MEDS: OLANZapine 5 MG TAB PO PRN ×2 (06:22→21:08)
[2023-02-26] MEDS: ACETAMINOPHEN TAB 325 MG TAB PO PRN (06:23)
[2023-02-26 07:05] LABS: Basophils % (A) 0 %; Eosinophils # (A) 0.4 k/uL (0-0.7); Eosinophils % (A) 4 %; HCT 42.1 % (34.0-46.0); HGB 13.8 gm/dL (11.4-16.0); Lymphocytes # (A) 1.8 k/uL (1.0-4.8); Lymphocytes % (A) 15 %; MCH 30.2 pg (25.0-35.0); MCHC 32.8 g/dL (31.0-37.0); MCV 92.1 fL (80.0-100.0); Mean Platelet Volume 7.3; Monocytes # (A) 0.9 k/uL (0-1.0); Monocytes % (A) 8 %; Neutrophils # (A) 8.4 k/uL (1.3-7.7); Neutrophils % (A) 71 %; Platelet Count 348 k/uL (150-450); RBC 4.57 m/uL (3.80-5.40); RDW 14.8 % (11.5-15.5); WBC 11.8 k/uL (3.8-10.6)
[2023-02-26 07:22] LABS: ALT 34 U/L (4-34); AST 36 U/L (14-36); African American GFR (CKD) 79 (>60 ml/min/1.73 sqM); Albumin 4.3 g/dL (3.5-5.0); Alkaline Phosphatase 130 U/L (38-126); Anion Gap 10 mmol/L; Blood Urea Nitrogen 15 mg/dL (7-17); Calcium 9.9 mg/dL (8.4-10.2); Carbon Dioxide 24 mmol/L (22-30); Chloride 107 mmol/L (98-107); Glucose 103 mg/dL (74-99); Non-African American GFR(CKD) 69 (>60 ml/min/1.73 sqM); Sodium 141 mmol/L (137-145); Total Bilirubin 0.7 mg/dL (0.2-1.3); Total Protein 7.5 g/dL (6.3-8.2)
[2023-02-26] MEDS: NICOTINE 14MG/24HR PATCH TRANSDERM SCH (08:09)
[2023-02-26] MEDS: hydrOXYzine pamoate 25 MG CAP PO PRN (08:11)
[2023-02-26] MEDS ORDERED: METHYLPHENIDATE HCL 10 MG TAB PO SCH (09:00)
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
[2023-02-26] MEDS: MAG HYDROX/AL HYDROX/SIMETH 30 ML CUP PO PRN (20:17)
[2023-02-26] MEDS: risperiDONE 0.5 MG TAB PO SCH (21:08)
--- NOTE | 2023-02-27 02:46 | P.PN ---
Progress Note - Text Progress Note Date: 02/27/23 Attempted to see the patient in the MHU. Informed by the RN that the patient is sedated and inappropriate for evaluation.
[2023-02-27] MEDS: ACETAMINOPHEN TAB 325 MG TAB PO PRN (06:59)
[2023-02-27] MEDS: clonazePAM 0.5 MG TAB PO PRN (07:00)
[2023-02-27] MEDS: GABAPENTIN 300 MG CAP PO SCH ×3 (09:13→19:39)
[2023-02-27] MEDS: risperiDONE 0.5 MG TAB PO SCH ×2 (09:14→20:30)
[2023-02-27] MEDS: NICOTINE 14MG/24HR PATCH TRANSDERM SCH (09:14)
--- NOTE | 2023-02-27 11:00 | P.PN ---
Subjective Progress Note Date: 02/27/23 Principal diagnosis: IMPRESSIONS: Acute psychosis, suspect secondary to polypharmacy/medication side effect Opiate use disorder, in remission Nicotine dependence Subjective: The patient says she slept well last night is feeling more hopeful denies any paranoid feelings. She says she had a has been glad that she came in because she discovered that Ritalin is just bad for her. MENTAL STATUS EXAM: General Appearance: Patient appears to be stated age is alert, directable, and attempts to cooperate. Adequate self-care Behavior: Calm and cooperative Speech: Patient's speech is calm with no pressure no flight of ideas Mood/Affect: Patient reports their mood hopeful Suicidality/Homicidality: Patient denies any suicidal or homicidal ideation. 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 Weakness is that the patient has a history of poly substance abuse. INTELLECT: average PLAN: -Patient is admitted under involuntarily converted to voluntary status to [facility] for stabilization of psychiatric symptoms and safety. Patient signed adult vol untary form and medication consent and is placed in patient's chart. -Medications : She says she has tolerating the new medications but is wondering if she needs anything at all or was a paranoia caused by the Ritalin she says that she understands why the Klonopin was decreased but feels that it quits too early and was wondering if he could be spread out Risperdal 0.5 mg by mouth twice a day for acute psychosis. We'll discontinue Abilify. Consider transition to Risperdal perseris. Prazosin 5 mg by mouth at bedtime Gabapentin 600 mg by mouth 3 times a day Discontinue Ritalin - concerned for paranoia as a result of Ritalin. -Zyprexa and Vistaril PRN for agitation/aggression -Patient was counselled on substance abuse and desired to cut back on use -Patient was informed of the risks, benefits and side effects of the medication and patient verbally consented to taking the medications. Patient signed med consent form and was placed in chart. -Internal Medicine consult to perform medical evaluation and physical. -NRT - nicotine patch -SW on board for discharge planning. Encourage patient to participate in groups to work on coping skills. 02/26/23 13:39 Objective - Vital Signs Vital signs: Vital Signs Temp 97.6 F 02/27/23 09:26 Pulse 107 H 02/27/23 09:26 Resp 18 02/27/23 07:05 BP 120/70 02/27/23 09:26 Pulse Ox 97 02/27/23 09:26 FiO2 - Labs CBC & Chem 7: 02/26/23 06:32 02/26/23 06:32
[2023-02-27] MEDS: hydrOXYzine pamoate 25 MG CAP PO PRN (12:04)
[2023-02-27] MEDS: NICOTINE GUM (POLACRILEX) 2 MG GUM BUCCAL PRN ×2 (16:58→19:39)
[2023-02-27] MEDS: clonazePAM 0.5 MG TAB PO SCH (19:39)
[2023-02-27] MEDS: PRAZOSIN 1 MG CAP PO SCH (20:30)
[2023-02-27] MEDS: OLANZapine 5 MG TAB PO PRN (20:32)
[2023-02-27] MEDS: MAG HYDROX/AL HYDROX/SIMETH 30 ML CUP PO PRN (21:55)
[2023-02-28] MEDS: hydrOXYzine pamoate 25 MG CAP PO PRN ×2 (06:32→19:08)
[2023-02-28] MEDS: clonazePAM 0.5 MG TAB PO SCH (06:32)
--- NOTE | 2023-02-28 08:38 | P.PN ---
Subjective Progress Note Date: 02/28/23 Principal diagnosis: IMPRESSIONS: Acute psychosis, suspect secondary to polypharmacy/medication side effect Opiate use disorder, in remission Nicotine dependence Subjective: The patient says she slept well last night is feeling more hopeful denies any paranoid feelings. She says she had a has been glad that she came in because she discovered that Ritalin is just bad for her. She says that she has been working on a discharge plan. She is come to understand that she goes without sleep this is not a good thing and even one night she should talk to somebody about it. She says she is also more committed to getting some counseling She says that she became anxious and agitated and asked for help and they gave her some Zyprexa which was very helpful. MENTAL STATUS EXAM: General Appearance: Patient appears to be stated age is alert, directable, and cooperative. Adequate self-care Behavior: Calm and cooperative Speech: Patient's speech is calm with no pressure no flight of ideas Mood/Affect: Patient reports their mood hopeful especially she has begun to work on discharge plans Suicidality/Homicidality: Patient denies any suicidal or homicidal ideation. 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 Weakness is that the patient has a history of polysubstance abuse. PLAN: -Patient is admitted under involuntarily converted to voluntary status to [facility] for stabilization of psychiatric symptoms and safety. Patient signed adult vol untary form and medication consent and is placed in patient's chart. -Medications : She says she has tolerating the new medications but is wondering if she needs anything at all or was a paranoia caused by the Ritalin she says that she understands why the Klonopin was decreased but feels that it quits too early and was wondering if he could be spread out Risperdal 0.5 mg by mouth twice a day for acute psychosis. I am suggesting she increase her risperidone to 1 mg twice a day to prevent breakthrough Prazosin 5 mg by mouth at bedtime Gabapentin 600 mg by mouth 3 times a day Discontinue Ritalin - concerned for paranoia as a result of Ritalin. -Zyprexa and Vistaril PRN for agitation/aggression -Patient was counselled on substance abuse and desired to cut back on use -Patient was informed of the risks, benefits and side effects of the medication and patient verbally consented to taking the medications. Patient signed med consent form and was placed in chart. -Internal Medicine consult to perform medical evaluation and physical. -NRT - nicotine patch -SW on board for discharge planning. Encourage patient to participate in groups to work on coping skills. 02/26/23 13:39 Objective - Vital Signs Vital signs: Vital Signs Temp 97.6 F 02/27/23 09:26 Pulse 87 02/28/23 06:40 Resp 18 02/28/23 06:40 BP 126/72 02/28/23 06:40 Pulse Ox 99 02/28/23 06:40 FiO2 - Labs CBC & Chem 7: 02/26/23 06:32 02/26/23 06:32
[2023-02-28] MEDS: NICOTINE GUM (POLACRILEX) 2 MG GUM BUCCAL PRN ×2 (08:41→17:18)
[2023-02-28] MEDS: GABAPENTIN 300 MG CAP PO SCH ×3 (08:41→20:34)
[2023-02-28] MEDS: OLANZapine 5 MG TAB PO PRN ×3 (08:41→20:35)
[2023-02-28] MEDS: risperiDONE 1 MG TAB PO SCH ×2 (08:41→20:34)
[2023-02-28] MEDS: NICOTINE 14MG/24HR PATCH TRANSDERM SCH (08:41)
[2023-02-28] MEDS: MAG HYDROX/AL HYDROX/SIMETH 30 ML CUP PO PRN (09:36)
[2023-02-28] MEDS: PANTOPRAZOLE 40 MG TABLET PO SCH ×2 (10:54→20:34)
[2023-02-28] MEDS: clonazePAM 0.5 MG TAB PO PRN ×2 (10:54→14:21)
[2023-02-28] MEDS: PRAZOSIN 1 MG CAP PO SCH (20:34)
[2023-03-01] MEDS: NICOTINE 14MG/24HR PATCH TRANSDERM SCH (07:40)
[2023-03-01] MEDS: GABAPENTIN 300 MG CAP PO SCH ×3 (07:40→20:39)
[2023-03-01] MEDS: PANTOPRAZOLE 40 MG TABLET PO SCH ×2 (07:41→20:39)
[2023-03-01] MEDS: risperiDONE 1 MG TAB PO SCH ×2 (07:41→20:39)
[2023-03-01] MEDS: clonazePAM 0.5 MG TAB PO PRN ×2 (07:43→18:04)
[2023-03-01] MEDS: hydrOXYzine pamoate 25 MG CAP PO PRN (09:21)
--- NOTE | 2023-03-01 11:31 | P.PN ---
Progress Note - Text Progress Note Date: 03/01/23 Interval History: Patient was seen wandering the hallways and was directable and agreeable to speak with commercial real estate underwriter in the office. Currently, the patient is alert and oriented in all spheres. She is not reporting any suicidal or homicidal ideation, intention, and/or plan. She is not reporting any auditory or visual hallucinations. She reports no paranoia or other delusions. She states that she is feeling like her head is much clearer and that she is not expressing any racing thoughts. She does acknowledge that her speech has slowed down significantly since starting the medication. She is in agreement that psychostimulants may have exacerbated her mental health issues. She has been adherent with her medications and is tolerating them well. She reports no medical issues or concerns at this time. She is anticipating discharge tomorrow. Mental Status Exam: General Appearance: Patient appears to be stated age is alert, directable, and cooperative. Behavior: Patient is calmly seated without any agitated behavior. Speech: Patient's speech is fluent and nonpressured. Mood/Affect: Mood is improving mildly, affect is congruent and euthymic. Suicidality/Homicidality: Reports no suicidal or homicidal ideation, intention, and/or plan. Perceptions: Patient denies any visual hallucinations and denies any auditory hallucinations Though content/process: There is no evidence of any delusional thought content and thought process is linear and goal-directed. Memory and concentration: AOX3, grossly intact for the purposes of this session Judgment and insight: Improving mildly Vital Signs Temp 97.6 F 02/27/23 09:26 Pulse 89 03/01/23 06:57 Resp 16 03/01/23 06:57 BP 102/62 03/01/23 06:57 Pulse Ox 98 03/01/23 06:57 FiO2 Assessment Acute psychosis, suspect secondary to polypharmacy/medication side effect Opiate use disorder, in remission Nicotine dependence Plan: -Patient continues to meet criteria for inpatient psychiatric admission for symptom stabilization and safety. Patient has signed adult voluntary form and medication consent and was placed in patient's chart. -Medications: Risperdal 1 mg by mouth twice a day for acute psychosis. Prazosin 5 mg by mouth at bedtime Gabapentin 600 mg by mouth 3 times a day Klonopin when necessary for anxiety -When necessary Zyprexa and Vistaril for agitation/aggression. -NRT - nicotine patch -SW on board for discharge planning. Encouraged the patient to participate in milieu.
[2023-03-01] MEDS: OLANZapine 5 MG TAB PO PRN ×2 (13:56→20:39)
[2023-03-01] MEDS: PRAZOSIN 1 MG CAP PO SCH (20:38)
[2023-03-02] MEDS: ACETAMINOPHEN TAB 325 MG TAB PO PRN (03:33)
[2023-03-02] MEDS: OLANZapine 5 MG TAB PO PRN ×2 (03:34→08:15)
[2023-03-02] MEDS: clonazePAM 0.5 MG TAB PO PRN (03:34)
[2023-03-02 06:01] VITALS: PULSE 99; RESP 18; TEMP 98.3
[2023-03-02] MEDS: GABAPENTIN 300 MG CAP PO SCH (08:15)
[2023-03-02] MEDS: NICOTINE 14MG/24HR PATCH TRANSDERM SCH (08:15)
[2023-03-02] MEDS: PANTOPRAZOLE 40 MG TABLET PO SCH (08:15)
[2023-03-02] MEDS: risperiDONE 1 MG TAB PO SCH (08:15)
[2023-03-02 08:19] VITALS: BP 119/81
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
== END 2023-03-02 11:39 | disposition home or self-care (01) | DRG 757 ==
LOC: EC 09:54 → 3MHU 15:48
PROVIDERS: ADMIT Psychiatry & Neurology Psychiatry; ATTEND Psychiatry & Neurology Psychiatry
DX: F06.2 Psychotic disorder with delusions due to known physiological condition (principal); F09 Unspecified mental disorder due to known physiological condition; T50.915A Adverse effect of multiple unspecified drugs, medicaments and biological substances, initial encounter; F17.210 Nicotine dependence, cigarettes, uncomplicated; F11.20 Opioid dependence, uncomplicated; F40.240 Claustrophobia; F41.0 Panic disorder [episodic paroxysmal anxiety]; F90.9 Attention-deficit hyperactivity disorder, unspecified type; I25.2 Old myocardial infarction; I10 Essential (primary) hypertension; J44.9 Chronic obstructive pulmonary disease, unspecified; K44.9 Diaphragmatic hernia without obstruction or gangrene; K21.9 Gastro-esophageal reflux disease without esophagitis; Z63.4 Disappearance and death of family member; Z79.899 Other long term (current) drug therapy; Z87.442 Personal history of urinary calculi; Z98.1 Arthrodesis status; G43.909 Migraine, unspecified, not intractable, without status migrainosus; G89.29 Other chronic pain; M51.36 Other intervertebral disc degeneration, lumbar region; Z20.822 Contact with and (suspected) exposure to COVID-19; Z28.21 Immunization not carried out because of patient refusal; Z82.49 Family history of ischemic heart disease and other diseases of the circulatory system; Z71.51 Drug abuse counseling and surveillance of drug abuser; G47.00 Insomnia, unspecified
CPT/HCPCS: 80053; 80306; 81001; 82075; 83036; 84443; 85025; 87635

== ENCOUNTER 2023-04-07 16:38 | Emergency (ER) | payer OTHER ==
--- NOTE | 2023-04-07 17:37 | ED ---
General Adult HPI - General Source: patient, RN notes reviewed Mode of arrival: ambulatory Limitations: no limitations <Luz Bryant - Last Filed: 04/07/23 17:31> <Mike Field - Last Filed: 04/07/23 21:13> - General Chief complaint: Psychiatric Symptoms Stated complaint: mental health Time Seen by Provider: 04/07/23 17:31 - History of Present Illness Initial comments: 53-year-old female presents the emergency department accompanied by [facility] worker chief complaint of psychiatric evaluation. (Luz Bryant) I agree with the above the patient brought in under petition for evaluation for psychiatric evaluation the patient was petitioned said to be paranoid hyperacti ve manic have impaired judgment test for next boyfriend. The patient disputes this. No drugs or alcohol reported at this time. Other complaints or modifying factors at this time (Mike Field) - Related Data Home Medications Medication Instructions Recorded Confirmed clonazePAM [KlonoPIN] 0.5 mg PO BID PRN 10/23/19 04/07/23 Cyclobenzaprine [Flexeril] 5 - 10 mg PO Q8H PRN 02/25/23 04/07/23 Gabapentin [Neurontin] 600 mg PO TID 02/25/23 04/07/23 Omeprazole 20 mg PO BID 02/25/23 04/07/23 Ondansetron [Zofran] 4 mg PO Q8H PRN 02/25/23 04/07/23 diphenhydrAMINE [Benadryl] 25 mg PO DAILY PRN 02/25/23 04/07/23 Methylphenidate HCl [Ritalin] 20 mg PO TID 04/07/23 04/07/23 Prazosin [Minipress] 5 mg PO HS 04/07/23 04/07/23 hydrOXYzine pamoate 50 mg PO TID PRN 04/07/23 04/07/23 Previous Rx's Medication Instructions Recorded Nicotine Gum (Polacrilex) 2 mg BUCCAL Q2HR PRN 7 Days #48 03/02/23 [Nicorette] pieceofgum risperiDONE [RisperDAL] 1 mg PO BID 30 Days #60 tab 03/02/23 Allergies Allergy/AdvReac Type Severity Reaction Status Date / Time ketorolac [From Toradol] Allergy Anaphylaxis Verified 04/07/23 20:59 shellfish derived Allergy Anaphylaxis Verified 04/07/23 20:59 tramadol [From Ultram] Allergy Anaphylaxis Verified 04/07/23 20:59 ibuprofen AdvReac HIVES Verified 04/07/23 20:59 Review of Systems ROS Other: All systems not noted in ROS Statement are negative. <Luz Bryant - Last Filed: 04/07/23 17:31> ROS Other: All systems not noted in ROS Statement are negative. <Mike Field - Last Filed: 04/07/23 21:13> ROS Statement: Those systems with pertinent positive or pertinent negative responses have been documented in the HPI. Past Medical History Past Medical History: COPD, GERD/Reflux, Hypertension, Pneumonia Additional Past Medical History / Comment(s): chronic back pain, lumbar degenerative disc disease, insomnia, hx shingles, hiatal hernia, kidney stones. 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, migraines,; NECK PAIN , Rabies 09/17 Last Myocardial Infarction Date:: 08/27/2016 History of Any Multi-Drug Resistant Organisms: MRSA Date of last positivie culture/infection: 09/22/09 MDRO Source:: neck Past Surgical History: Appendectomy, Back Surgery, Section, Cholecystectomy, Orthopedic Surgery Additional Past Surgical History / Comment(s): Cervical spine fusion with insertion of a metal plate, EGD, colonoscopy, radiofrequency ablation, Past Anesthesia/Blood Transfusion Reactions: No Reported Reaction Additional Past Anesthesia/Blood Transfusion Reaction / Comment(s): CLAUSTROPHOBIA Past Psychological History: ADD/ADHD, Anxiety, Panic Disorder Smoking Status: Current some day smoker Past Alcohol Use History: None Reported Past Drug Use History: None Reported - Past Family History Father Family Medical History: Cancer Additional Family Medical History / Comment(s): Father at age 48 from lung cancer. Mother Family Medical History: Congestive Heart Failure (CHF), CVA/TIA Additional Family Medical History / Comment(s): Mother is alive at age 68. She has suffered from a CVA and has chronic back problems. Patient has 2 brothers and 4 sisters with no major medical problems. <Luz Bryant - Last Filed: 04/07/23 17:31> General Exam Limitations: no limitations <Luz Bryant - Last Filed: 04/07/23 17:31> General appearance: alert, anxious Head exam: Present: atraumatic, normocephalic, normal inspection Eye exam: Present: normal appearance, PERRL, EOMI. Absent: scleral icterus, conjunctival injection, periorbital swelling ENT exam: Present: normal exam, mucous membranes moist Neck exam: Present: normal inspection. Absent: tenderness, meningismus, lymphadenopathy Respiratory exam: Present: normal lung sounds bilaterally. Absent: respiratory distress, wheezes, rales, rhonchi, stridor Cardiovascular Exam: Present: regular rate, normal rhythm, normal heart sounds. Absent: systolic murmur, diastolic murmur, rubs, gallop, clicks Extremities exam: Present: normal inspection, full ROM, normal capillary refill. Absent: tenderness, pedal edema, joint swelling, calf tenderness Back exam: Present: full ROM Neurological exam: Present: alert, oriented X3, CN II-XII intact Psychiatric exam: Present: anxious, manic <Mike Field - Last Filed: 04/07/23 21:13> - General Exam Comments Initial Comments: Visual Physical Exam Vital signs reviewed General: Well-appearing, nontoxic, no acute distress. Head: Normocephalic, atraumatic Eyes: PERRLA, EOMI ENT: Airway patent Chest: Nonlabored breathing Skin: No visual rash, normal skin tone Neuro: Alert and oriented 3 Musculoskeletal: No gross abnormalities I performed the quick note portion of this exam, verbal signature Luz Bryant PA-C (Luz Bryant) This is a well-developed well-nourished awake alert anxious Female who does appear to be manic (Mike Field) Course Vital Signs 04/07/23 16:47 Temperature 98.6 F Pulse Rate 86 Respiratory 16 Rate Blood Pressure 157/99 O2 Sat by Pulse 100 Oximetry Medical Decision Making <Mike Field - Last Filed: 04/07/23 21:13> - Medical Decision Making Patient was evaluated by the psychiatric service and will be admitted for inpatient evaluation and treatment of paranoia any, bipolar disorder a clinical certification was filled out by me.Was pt. sent in by a medical professional or institution (JANIE Miller, CHIROPRACTIC TEACHER, urgent care, hospital, or custodial...) When possible be specific @ -No Did you speak to anyone other than the patient for history (EMS, parent, family, police, friend...)? What history was obtained from this source @ -No Did you review nursing and triage notes (agree or disagree)? Why? @ -I reviewed and agree with nursing and triage notes Were old charts reviewed (outside hosp., previous admission, EMS record, old EKG, old radiological studies, urgent care reports/EKG's, custodial records)? Report findings @ -No old charts were reviewed Differential Diagnosis (chest pain, altered mental status, abdominal pain women, abdominal pain men, vaginal bleeding, weakness, fever, dyspnea, syncope, headache, dizziness, GI bleed, back pain, seizure, CVA, palpatations, mental health, musculoskeletal)? @ -BiPolar disorder, sudhir, paranoia EKG interpreted by me (3pts min.). @ -Not done X-rays interpreted by me (1pt min.). @ -None done CT interpreted by me (1pt min.). @ -None done U/S interpreted by me (1pt. min.). @ -None done What testing was considered but not performed or refused? (CT, X-rays, U/S, labs)? Why? @ -None What meds were considered but not given or refused? Why? @ -None Did you discuss the management of the patient with other professionals (professionals i.e. , PA, CHIROPRACTIC TEACHER, lab, RT, psych nurse, criminal justice social worker, direct support worker, teacher, chief compliance officer, case mgr)? Give summary @ -EPS service Was smoking cessation discussed for >3mins.? @ -No Was critical care preformed (if so, how long)? @ -No Were there social determinants of health that impacted care today? How? (Homelessness, low income, unemployed, alcoholism, drug addiction, transportation, low edu. Level, literacy, decrease access to med. care, snf, re hab)? @ -No Was there de-escalation of care discussed even if they declined (Discuss DNR or withdrawal of care, Hospice)? DNR status @ -No What co-morbidities impacted this encounter? (DM, HTN, Smoking, COPD, CAD, Cancer, CVA, ARF, Chemo, Hep., AIDS, mental health diagnosis, sleep apnea, morbid obesity)? @ -Bipolar disorder Was patient admitted / discharged? Hospital course, mention meds given and route, prescriptions, significant lab abnormalities, going to OR and other pertinent info. @ -hospital course patient was admitted to the EPS/psychiatric unit for inpatient evaluation and treatment Undiagnosed new problem with uncertain prognosis? @ -No Drug Therapy requiring intensive monitoring for toxicity (Heparin, Nitro, Insulin, Cardizem)? @ -No Were any procedures done? @ -No Diagnosis/symptom? @ -Bipolar disorder, sudhir, paranoia Acute, or Chronic, or Acute on Chronic? @ -Acute on chronic Uncomplicated (without systemic symptoms) or Complicated (systemic symptoms)? @ -default Side effects of treatment? @ -No Exacerbation, Progression, or Severe Exacerbation? @ -Gordon patient Poses a threat to life or bodily function? How? (Chest pain, [place], [place], pneumonia, PE, COPD, DKA, ARF, appy, cholecystitis, CVA, Diverticulitis, Homicidal, Suicidal, threat to staff... and all critical care pts) @ -No (Mike Field) - Lab Data Lab Results 04/07/23 04/07/23 04/07/23 Range/Units 20:04 20:55 20:55 Urine Color Light Yellow Urine Appearance Cloudy H (Clear) Urine pH 5.5 (5.0-8.0) Ur Specific [place] 1.019 (1.001-1.035) Urine Protein Negative (Negative) Urine Glucose (UA) Negative (Negative) Urine Ketones Negative (Negative) Urine Blood Moderate H (Negative) Urine Nitrite Negative (Negative) Urine Bilirubin Negative (Negative) Urine Urobilinogen <2.0 (<2.0) mg/dL Ur Leukocyte Esterase Negative (Negative) Urine RBC 3 (0-5) /hpf Urine WBC 1 (0-5) /hpf Ur Squamous Epith Cells 6 H (0-4) /hpf Urine Mucus Rare H (None) /hpf Urine HCG, Qual Not Detected (Not Detectd) Urine Opiates Screen Not Detected (NotDetected) Ur Oxycodone Screen Not Detected (NotDetected) Urine Methadone Screen Not Detected (NotDetected) Ur Propoxyphene Screen Not Detected (NotDetected) Ur Barbiturates Screen Not Detected (NotDetected) U Tricyclic Antidepress Detected H (NotDetected) Ur Phencyclidine Scrn Not Detected (NotDetected) Ur Amphetamines Screen Not Detected (NotDetected) U Methamphetamines Scrn Not Detected (NotDetected) U Benzodiazepines Scrn Not Detected (NotDetected) Urine Cocaine Screen Not Detected (NotDetected) U Marijuana (THC) Screen Not Detected (NotDetected) Disposition <Luz Bryant - Last Filed: 04/07/23 17:31> Decision Date: 04/07/23 Decision Time: 21:13 <Mike Field - Last Filed: 04/07/23 21:13> Clinical Impression: Bipolar disorder (manic depression), Manic behavior, Paranoia Disposition: TRANSFER TO PSYCH HOSP/UNIT Condition: Stable Referrals: Estelle Butterfield DO [Primary Care Provider] - 1-2 days
[2023-04-07] MEDS ORDERED: clonazePAM 0.5 MG TAB PO STA (20:44)
[2023-04-07 20:56] LABS: Amphetamine Screen,Urine Not Detected (NotDetected); Barbiturate Screen,Urine Not Detected (NotDetected); Benzodiazepines Screen,Urine Not Detected (NotDetected); Cocaine Screen,Urine Not Detected (NotDetected); Methadone Screen, Urine Not Detected (NotDetected); Opiate Screen,Urine Not Detected (NotDetected); Oxycodone Screen, Urine Not Detected (NotDetected); Phencyclidine Screen,Urine Not Detected (NotDetected); Tricyclic Antidepressant,Urine Detected (NotDetected); Urn Cannabinoid Scrn Not Detected (NotDetected)
[2023-04-07 21:01] LABS: Appearance,Urine Cloudy (Clear); Bilirubin,Urine Negative (Negative); Blood,Urine Moderate (Negative); Color,Urine Light Yellow; Glucose,Urine (UA) Negative (Negative); Ketones,Urine Negative (Negative); Leukocyte Esterase,Urine Negative (Negative); Mucus,Urine Rare /hpf; Nitrite,Urine Negative (Negative); PH, Urine 5.5 (5.0-8.0); Protein,Urine Negative (Negative); RBC,Urine 3 /hpf (0-5); Specific Gravity,Urine 1.019 (1.001-1.035); Squamous Epithelial Cell,Urine 6 /hpf (0-4); Urobilinogen,Urine <2.0 mg/dL (<2.0); WBC,Urine 1 /hpf (0-5)
[2023-04-07 21:15] LABS: HGB 14.6 gm/dL (11.4-16.0); MCH 30.2 pg (25.0-35.0); MCHC 33.1 g/dL (31.0-37.0); MCV 91.4 fL (80.0-100.0); Mean Platelet Volume 7.4; Platelet Count 476 k/uL (150-450); RBC 4.82 m/uL (3.80-5.40); RDW 13.3 % (11.5-15.5); WBC 19.5 k/uL (3.8-10.6)
[2023-04-07] MEDS ORDERED: ONDANSETRON 4 MG TAB PO PRN (21:24)
[2023-04-07] MEDS ORDERED: clonazePAM 0.5 MG TAB PO PRN (21:24)
[2023-04-07 21:25] LABS: ALT 19 U/L (4-34); AST 24 U/L (14-36); African American GFR (CKD) 81 (>60 ml/min/1.73 sqM); Albumin 4.8 g/dL (3.5-5.0); Alkaline Phosphatase 119 U/L (38-126); Anion Gap 10 mmol/L; Blood Urea Nitrogen 18 mg/dL (7-17); Calcium 10.8 mg/dL (8.4-10.2); Carbon Dioxide 24 mmol/L (22-30); Chloride 106 mmol/L (98-107); Glucose 110 mg/dL (74-99); Non-African American GFR(CKD) 71 (>60 ml/min/1.73 sqM); Potassium 4.5 mmol/L (3.5-5.1); Sodium 140 mmol/L (137-145); Total Bilirubin 0.8 mg/dL (0.2-1.3); Total Protein 8.2 g/dL (6.3-8.2)
[2023-04-07] MEDS ORDERED: GABAPENTIN 300 MG CAP PO STA (23:11)
[2023-04-07] MEDS ORDERED: risperiDONE 1 MG TAB PO STA (23:11)
[2023-04-07] MEDS ORDERED: PRAZOSIN 1 MG CAP PO SCH (23:30)
[2023-04-07] MEDS: PRAZOSIN 1 MG CAP PO SCH (23:58)
[2023-04-08] MEDS: PRAZOSIN 1 MG CAP PO SCH (08:49)
[2023-04-08] MEDS ORDERED: risperiDONE 1 MG TAB PO SCH (09:00)
[2023-04-08 15:45] VITALS: BP 123/80; PULSE 92; RESP 20; TEMP 98.1
== END 2023-04-08 09:31 ==
LOC: EC 16:38
DX: F31.9 Bipolar disorder, unspecified (principal); F22 Delusional disorders; I10 Essential (primary) hypertension; J44.9 Chronic obstructive pulmonary disease, unspecified; I25.2 Old myocardial infarction; F41.9 Anxiety disorder, unspecified; F90.9 Attention-deficit hyperactivity disorder, unspecified type; K21.9 Gastro-esophageal reflux disease without esophagitis; F17.200 Nicotine dependence, unspecified, uncomplicated; Z79.899 Other long term (current) drug therapy; Z88.6 Allergy status to analgesic agent; Z88.5 Allergy status to narcotic agent; Z91.013 Allergy to seafood
CPT/HCPCS: 36415; 80053; 80306; 81001; 81025; 82075; 85027; 87635; 99285

== ENCOUNTER 2023-06-04 05:31 | Emergency (ER) | payer OTHER ==
[2023-06-04 06:00] VITALS: RESP 18; TEMP 98
[2023-06-04] MEDS ORDERED: HYDROmorphone 1 MG/ML 1 ML SYRINGE IM STA ×2 (06:07→06:42)
--- NOTE | 2023-06-04 06:27 | ED ---
Anxiety HPI - General Chief Complaint: Anxiety Stated Complaint: Neck Pain Time Seen by Provider: 06/04/23 05:58 Source: patient, RN notes reviewed Mode of arrival: ambulatory - History of Present Illness Initial Comments: This is a 53-year-old female who presents to the emergency department for neck pain and anxiety. Patient states that she has a history of chronic neck pain r elated to several bad disks in her neck. Over the last several hours the pain has started to flareup. States that when this flares up it causes her to have a panic attack. She takes Gabapentin for pain. She does have Klonopin for anxiety, but did not take it before coming here. Denies any injuries and states that this feels like a typical flareup for her. Denies any suicidal or homicidal ideations. MD Complaint: anxiety, other (Neck pain) - Related Data Home Medications: Home Medications Medication Instructions Recorded Confirmed clonazePAM [KlonoPIN] 0.5 mg PO BID PRN 10/23/19 04/07/23 Cyclobenzaprine [Flexeril] 5 - 10 mg PO Q8H PRN 02/25/23 04/07/23 Gabapentin [Neurontin] 600 mg PO TID 02/25/23 04/07/23 Omeprazole 20 mg PO BID 02/25/23 04/07/23 Ondansetron [Zofran] 4 mg PO Q8H PRN 02/25/23 04/07/23 diphenhydrAMINE [Benadryl] 25 mg PO DAILY PRN 02/25/23 04/07/23 Methylphenidate HCl [Ritalin] 20 mg PO TID 04/07/23 04/07/23 Prazosin [Minipress] 5 mg PO HS 04/07/23 04/07/23 hydrOXYzine pamoate 50 mg PO TID PRN 04/07/23 04/07/23 Previous Rx's Medication Instructions Recorded Nicotine Gum (Polacrilex) 2 mg BUCCAL Q2HR PRN 7 Days #48 03/02/23 [Nicorette] pieceofgum risperiDONE [RisperDAL] 1 mg PO BID 30 Days #60 tab 03/02/23 Allergies/Adverse Reactions: Allergies Allergy/AdvReac Type Severity Reaction Status Date / Time ketorolac [From Toradol] Allergy Anaphylaxis Verified 06/04/23 05:47 shellfish derived Allergy Anaphylaxis Verified 06/04/23 05:47 tramadol [From Ultram] Allergy Anaphylaxis Verified 06/04/23 05:47 ibuprofen AdvReac HIVES Verified 06/04/23 05:47 Review of Systems ROS Statement: Those systems with pertinent positive or pertinent negative responses have been documented in the HPI. ROS Other: All systems not noted in ROS Statement are negative. Past Medical History Past Medical History: COPD, GERD/Reflux, Hypertension, Pneumonia Additional Past Medical History / Comment(s): chronic back pain, lumbar degenerative disc disease, insomnia, hx shingles, hiatal hernia, kidney stones. 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, migraines,; NECK PAIN , Rabies 09/17 Last Myocardial Infarction Date:: 08/27/2016 History of Any Multi-Drug Resistant Organisms: MRSA Date of last positivie culture/infection: 09/22/09 MDRO Source:: neck Past Surgical History: Appendectomy, Back Surgery, Section, Cholecystectomy, Orthopedic Surgery Additional Past Surgical History / Comment(s): Cervical spine fusion with insertion of a metal plate, EGD, colonoscopy, radiofrequency ablation, Past Anesthesia/Blood Transfusion Reactions: No Reported Reaction Additional Past Anesthesia/Blood Transfusion Reaction / Comment(s): CLAUSTROPHOBIA Past Psychological History: ADD/ADHD, Anxiety, Panic Disorder Smoking Status: Current every day smoker Past Alcohol Use History: None Reported Past Drug Use History: None Reported - Past Family History Father Family Medical History: Cancer Additional Family Medical History / Comment(s): Father at age 48 from lung cancer. Mother Family Medical History: Congestive Heart Failure (CHF), CVA/TIA Additional Family Medical History / Comment(s): Mother is alive at age 68. She has suffered from a CVA and has chronic back problems. Patient has 2 brothers and 4 sisters with no major medical problems. General Exam Limitations: no limitations General appearance: alert, anxious Head exam: Present: atraumatic, normocephalic, normal inspection Respiratory exam: Present: normal lung sounds bilaterally. Absent: respiratory distress, wheezes, rales, rhonchi, stridor Cardiovascular Exam: Present: regular rate, normal rhythm, normal heart sounds. Absent: systolic murmur, diastolic murmur, rubs, gallop, clicks Neurological exam: Present: alert, oriented X3, CN II-XII intact Psychiatric exam: Present: anxious Skin exam: Present: warm, dry, intact, normal color. Absent: rash Course Vital Signs 06/04/23 06/04/23 05:46 07:22 Temperature 98 F Pulse Rate 99 80 Respiratory 18 18 Rate Blood Pressure 175/100 130/78 O2 Sat by Pulse 98 100 Oximetry Medical Decision Making - Medical Decision Making This is a 53-year-old female who presents to the emergency department for anxiety and neck pain. Was pt. sent in by a medical professional or institution? @ -No Did you speak to anyone other than the patient for history? @ -No Did you review nursing and triage notes? @ -Yes, and I agree, it is accurate with regards to the patient's symptoms. Were old charts reviewed? @ -No Differential Diagnosis? @ -Differential Mental Health: Depression, anxiety, bipolar, psychosis, schizophrenia, borderline personality, situational depression, adjustment disorder, behavioral disorder, brain tumor, malingering, substance abuse, encephalopathy, medication reaction, dementia, hypothyroidism, degenerative neurologic disorder, lupus.... This is not meant to be all-inclusive list EKG interpreted by me (3pts min.)? @ -Not obtained X-rays interpreted by me (1pt min.)? @ -Not obtained CT interpreted by me (1pt min.)? @ -Not obtained U/S interpreted by me (1pt. min.)? @ -Not obtained What testing was considered but not performed? (CT, X-rays, U/S, labs)? Why? @ -None What meds were considered but not given? Why? @ -None Did you discuss the management of the patient with other professionals? @ -No Did you reconcile home meds? @ -No Was smoking cessation discussed for >3mins.? @ -No Was critical care preformed (if so, how long)? @ -No Were there social determinants of health that impacted care today? How? (Homelessness, low income, unemployed, alcoholism, drug addiction, trans portation, low edu. Level, literacy, decrease access to med. care, long-term, rehab)? @ -No Was there de-escalation of care discussed even if they declined? (Discuss DNR or withdrawal of care, Hospice)? @ -No What co-morbidities impacted this encounter? (DM, HTN, Smoking, COPD, CAD, Cancer, CVA, Hep., AIDS, mental health diagnosis, sleep apnea, morbid obesity)? @ -DDD, generalized anxiety disorder Was patient admitted / discharged? @ -Discharged. Given that this was a flareup of her chronic pain without any new injuries, no imaging was obtained. Her symptoms were well controlled with Dilaudid and Valium in the emergency department and the patient was discharged home in stable condition with instructions to follow up with her primary care provider. Undiagnosed new problem with uncertain prognosis? @ -None Drug Therapy requiring intensive monitoring for toxicity (Heparin, Nitro, Insulin, Cardizem)? @ -None Were any procedures done? @ -None Diagnosis/symptom? @ -Neck pain, anxiety Acute, or Chronic, or Acute on Chronic? @ -Acute on chronic Uncomplicated (without systemic symptoms) or Complicated (systemic symptoms)? @ -Uncomplicated Side effects of treatment? @ -None Exacerbation, Progression, or Severe Exacerbation] @ -Exacerbation Poses a threat to life or bodily function? @ -No Return precautions reviewed in depth, the patient is instructed to return to the emergency department with any new, worsening, or concerning symptoms. Patient verbalized understanding. This case was discussed in detail with the attending ED physician, Dr. Blake. Presentation, findings, and treatment plan discussed in detail as well. Disposition Clinical Impression: Panic attack, Neck pain Disposition: HOME SELF-CARE Instructions (If sedation given, give patient instructions): Generalized Anxi ety Disorder (ED) Additional Instructions: Return to the emergency department with any new, worsening, or concerning symptoms. Follow up with your primary care provider in 1-2 days. Is patient prescribed a controlled substance at d/c from ED?: No Referrals: Estelle Butterfield DO [Primary Care Provider] - 1-2 days
[2023-06-04 07:35] VITALS: BP 130/78; PULSE 80
== END 2023-06-04 07:22 | disposition home or self-care (01) ==
LOC: EC 05:31
DX: F41.0 Panic disorder [episodic paroxysmal anxiety] (principal); M54.2 Cervicalgia; J44.9 Chronic obstructive pulmonary disease, unspecified; I10 Essential (primary) hypertension; K21.9 Gastro-esophageal reflux disease without esophagitis; F90.9 Attention-deficit hyperactivity disorder, unspecified type; F41.9 Anxiety disorder, unspecified; F17.200 Nicotine dependence, unspecified, uncomplicated; Z79.899 Other long term (current) drug therapy; Z88.6 Allergy status to analgesic agent; Z91.013 Allergy to seafood; Z88.8 Allergy status to other drugs, medicaments and biological substances
CPT/HCPCS: 99283; 96372 ×4; J3360; J1170

== ENCOUNTER 2023-07-31 03:04 | Inpatient (IN) | payer OTHER ==
--- NOTE | 2023-07-31 03:25 | ED ---
Chest Pain HPI - General Chief Complaint: Chest Pain Stated Complaint: Ches pain, low back pain Time Seen by Provider: 07/31/23 03:24 Source: patient, RN notes reviewed, old records reviewed Mode of arrival: EMS Limitations: no limitations - History of Present Illness Initial Comments: This is a 53-year-old female to the emergency department for evaluation of chest pain today. Patient states she's been feeling well lately with a cold has cough and congestion occasional fevers. Patient is having significant anxiety here in the ER with significant chest pain patient has a medical history is significant for COPD and multiple medical comorbidities MD Complaint: chest pain, other (Shortness of breath cough) -: days(s) Onset: during rest, during exertion Pain Location: substernal Quality: tightness, heaviness Consistency: constant Improves With: nothing Worsens With: nothing Other Symptoms: palpitations Treatments Prior to Arrival: none - Related Data Home Medications Medication Instructions Recorded Confirmed clonazePAM [KlonoPIN] 0.5 mg PO BID PRN 10/23/19 04/07/23 Cyclobenzaprine [Flexeril] 5 - 10 mg PO Q8H PRN 02/25/23 04/07/23 Gabapentin [Neurontin] 600 mg PO TID 02/25/23 04/07/23 Omeprazole 20 mg PO BID 02/25/23 04/07/23 Ondansetron [Zofran] 4 mg PO Q8H PRN 02/25/23 04/07/23 diphenhydrAMINE [Benadryl] 25 mg PO DAILY PRN 02/25/23 04/07/23 Methylphenidate HCl [Ritalin] 20 mg PO TID 04/07/23 04/07/23 Prazosin [Minipress] 5 mg PO HS 04/07/23 04/07/23 hydrOXYzine pamoate 50 mg PO TID PRN 04/07/23 04/07/23 Previous Rx's Medication Instructions Recorded Nicotine Gum (Polacrilex) 2 mg BUCCAL Q2HR PRN 7 Days #48 03/02/23 [Nicorette] pieceofgum risperiDONE [RisperDAL] 1 mg PO BID 30 Days #60 tab 03/02/23 Azithromycin [Zithromax] 500 mg PO DAILY 5 Days #5 tab 07/31/23 lisinopriL [Zestril] 10 mg PO DAILY #30 tab 07/31/23 predniSONE [Deltasone] 40 mg PO DAILY 5 Days #10 tab 07/31/23 Allergies Allergy/AdvReac Type Severity Reaction Status Date / Time ketorolac [From Toradol] Allergy Anaphylaxis Verified 07/31/23 03:26 shellfish derived Allergy Anaphylaxis Verified 07/31/23 03:26 tramadol [From Ultram] Allergy Anaphylaxis Verified 07/31/23 03:26 ibuprofen AdvReac HIVES Verified 07/31/23 03:26 Review of Systems ROS Statement: Those systems with pertinent positive or pertinent negative responses have been documented in the HPI. ROS Other: All systems not noted in ROS Statement are negative. EKG Findings - EKG Comments: EKG Findings:: EKG is sinus 70 AK 181 QRS 90 QTC 3 Past Medical History Past Medical History: COPD, GERD/Reflux, Hypertension, Pneumonia Additional Past Medical History / Comment(s): chronic back pain, lumbar degenerative disc disease, insomnia, hx shingles, hiatal hernia, kidney stones. 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, migraines,; NECK PAIN , Rabies 09/17 Last Myocardial Infarction Date:: 08/27/2016 History of Any Multi-Drug Resistant Organisms: MRSA Date of last positivie culture/infection: 09/22/09 MDRO Source:: neck Past Surgical History: Appendectomy, Back Surgery, Section, Cholecystec stefany, Orthopedic Surgery Additional Past Surgical History / Comment(s): Cervical spine fusion with insertion of a metal plate, EGD, colonoscopy, radiofrequency ablation, Past Anesthesia/Blood Transfusion Reactions: No Reported Reaction Additional Past Anesthesia/Blood Transfusion Reaction / Comment(s): CLAUSTROPHOBIA Past Psychological History: ADD/ADHD, Anxiety, Panic Disorder Smoking Status: Current every day smoker Past Alcohol Use History: None Reported Past Drug Use History: None Reported - Past Family History Father Family Medical History: Cancer Additional Family Medical History / Comment(s): Father at age 48 from lung cancer. Mother Family Medical History: Congestive Heart Failure (CHF), CVA/TIA Additional Family Medical History / Comment(s): Mother is alive at age 68. She has suffered from a CVA and has chronic back problems. Patient has 2 brothers and 4 sisters with no major medical problems. General Exam Limitations: no limitations General appearance: alert, in no apparent distress, anxious, in distress Head exam: Present: atraumatic, normocephalic, normal inspection Eye exam: Present: normal appearance, PERRL, EOMI. Absent: scleral icterus, conjunctival injection, periorbital swelling ENT exam: Present: normal exam, mucous membranes moist Neck exam: Present: normal inspection. Absent: tenderness, meningismus, lymphadenopathy Respiratory exam: Present: normal lung sounds bilaterally, respiratory distress, wheezes, decreased breath sounds, prolonged expiratory. Absent: rales, rhonchi, stridor Cardiovascular Exam: Present: regular rate, normal rhythm, normal heart sounds. Absent: systolic murmur, diastolic murmur, rubs, gallop, clicks GI/Abdominal exam: Present: soft, normal bowel sounds. Absent: distended, tenderness, guarding, rebound, rigid Extremities exam: Present: normal inspection, full ROM, normal capillary refill. Absent: tenderness, pedal edema, joint swelling, calf tenderness Back exam: Present: normal inspection Neurological exam: Present: alert, oriented X3, CN II-XII intact Psychiatric exam: Present: normal affect, normal mood Skin exam: Present: warm, dry, intact, normal color. Absent: rash Course Vital Signs 07/31/23 07/31/23 07/31/23 03:21 03:24 05:35 Temperature 98.4 F 98.4 F Pulse Rate 78 78 80 Respiratory 18 18 Rate Blood Pressure 174/115 174/115 O2 Sat by Pulse 95 95 Oximetry 07/31/23 07/31/23 07/31/23 05:44 06:26 07:56 Temperature 98.1 F 98.8 F Pulse Rate 83 79 90 Respiratory 18 18 Rate Blood Pressure 163/115 156/103 O2 Sat by Pulse 98 98 Oximetry 07/31/23 08:44 Temperature 98.4 F Pulse Rate 89 Respiratory 18 Rate Blood Pressure 147/89 O2 Sat by Pulse 97 Oximetry - Reevaluation(s) Reevaluation #1: 07/31/23 05:50 Medical record is reviewed Reevaluation #2: 07/31/23 05:50 Patient symptoms are improved Reevaluation #3: 07/31/23 05:51 Patient informed results and questions answered Reevaluation #4: 07/31/23 05:51 Was pt. sent in by a medical professional or institution (, PA, CAMPAIGN WORKER, urgent care, hospital, or longterm...) When possible be specific @ -no Did you speak to anyone other than the patient for history (EMS, parent, family, police, friend...)? What history was obtained from this source @ -no Did you review nursing and triage notes (agree or disagree)? Why? @ -agree Are old charts reviewed (outside hosp., previous admission, EMS record, old EKG, old radiological studies, urgent care reports/EKG's, longterm records)? Report findings @ -yes Differential Diagnosis (chest pain, altered mental status, abdominal pain women, abdominal pain men, vaginal bleeding, weakness, fever, dyspnea, syncope, headache, dizziness, GI bleed, back pain, seizure, CVA, palpatations, mental health, musculoskeletal)? @ -prior EKG interpreted by me (3pts min.). @ -yes X-rays interpreted by me (1pt min.). @ -yes. If for acute disease CT interpreted by me (1pt min.). @ -no U/S interpreted by me (1pt. min.). @ -no What testing was considered but not performed or refused? (CT, X-rays, U/S, labs)? Why? @ -none What meds were considered but not given or refused? Why? @ -none Did you discuss the management of the patient with other professionals (professionals i.e. , PA, CAMPAIGN WORKER, lab, RT, psych nurse, social service manager, food beverage supervisor, teacher, learning officer, keycase assembler)? Give summary @ -no Was smoking cessation discussed for >3mins.? @ -no Was critical care preformed (if so, how long)? @ -yes31 Were there social determinants of health that impacted care today? How? (Homelessness, low income, unemployed, alcoholism, drug addiction, transportation, low edu. Level, literacy, decrease access to med. care, group home, rehab)? @ -none Was there de-escalation of care discussed even if they declined (Discuss DNR or withdrawal of care, Hospice)? DNR status @ -no What co-morbidities impacted this encounter? (DM, HTN, Smoking, COPD, CAD, Cancer, CVA, ARF, Chemo, Hep., AIDS, mental health diagnosis, sleep apnea, morbid obesity)? @ -none Was patient admitted / discharged? Hospital course, mention meds given and route, prescriptions, significant lab abnormalities, going to OR and other pertinent info. @ - 53 female to the emergency department for evaluation chest pain. Patient is found to have pneumonia with elevated white blood cell count and will admit for chest pain observation Admitted Undiagnosed new problem with uncertain prognosis? @ -no Drug Therapy requiring intensive monitoring for toxicity (Heparin, Nitro, Insulin, Cardizem)? @ -no Were any procedures done? @ -no Diagnosis/symptom? @ -Chest pain Acute, or Chronic, or Acute on Chronic? @ -Acute Uncomplicated (without systemic symptoms) or Complicated (systemic symptoms)? @ -Complicated Side effects of treatment? @ -no Exacerbation, Progression, or Severe Exacerbation? @ -exacerbation Poses a threat to life or bodily function? How? (Chest pain, [place], [place], pneumonia, PE, COPD, DKA, ARF, appy, cholecystitis, CVA, Diverticulitis, Homicidal, Suicidal, threat to staff... and all critical care pts) @ -yes with significant chest pain Reevaluation #5: 07/31/23 05:51 Differential Chest Pain: Stable Angina, Unstable Angina, STEMI, NSTEMI Aortic Dissection, Pneumothorax, Musculoskeletal, Esophageal Spasm GERD, Cholecystitis, Pancreatitis, Zoster, this is not meant to be an all-inclusive list. - Consultations Consultation #1: Spoke with Dr. Sarmiento who agrees to admit this patient Chest Pain MDM - MDM 53 female to the emergency department for evaluation chest pain. Patient is found to have pneumonia with elevated white blood cell count and will admit for chest pain observation Critical Care Time Critical Care Time: Yes Total Critical Care Time: 31 Disposition Clinical Impression: Anxiety, Chest pain, CAD (coronary artery disease), COPD (chronic obstructive pulmonary disease), Leukocytosis, Pneumonia Disposition: LEFT AGAINST MEDICAL ADVICE Condition: Good Is patient prescribed a controlled substance at d/c from ED?: No Time of Disposition: 05:50
[2023-07-31 03:41] VITALS: RESP 18
[2023-07-31] MEDS ORDERED: HYDROmorphone 1 MG/ML 1 ML SYRINGE IVP STA (03:47)
[2023-07-31] MEDS ORDERED: LORazepam 2 MG/ML INJ IV STA ×2 (03:47→07:42)
[2023-07-31] MEDS ORDERED: SODIUM CHLORIDE 0.9% 1,000 ML IV ONE (03:48)
[2023-07-31] MEDS ORDERED: IPRATROPIUM-ALBUTEROL 3 ML NEB INHALATION STA ×2 (04:24→05:47)
[2023-07-31] MEDS ORDERED: methylPREDNISolone SOD SUCCI 125 MG/2 ML VIAL IV STA (04:24)
[2023-07-31 04:43] LABS: Basophils # (A) 0.1 k/uL (0-0.2); Basophils % (A) 0 %; Eosinophils # (A) 0.4 k/uL (0-0.7); Eosinophils % (A) 2 %; HCT 41.8 % (34.0-46.0); HGB 13.8 gm/dL (11.4-16.0); Lymphocytes # (A) 2.4 k/uL (1.0-4.8); Lymphocytes % (A) 10 %; MCH 30.5 pg (25.0-35.0); MCV 92.5 fL (80.0-100.0); Mean Platelet Volume 7.4; Monocytes # (A) 1.1 k/uL (0-1.0); Monocytes % (A) 4 %; Neutrophils # (A) 20.6 k/uL (1.3-7.7); Neutrophils % (A) 83 %; Platelet Count 367 k/uL (150-450); RBC 4.52 m/uL (3.80-5.40); RDW 13.1 % (11.5-15.5); WBC 24.8 k/uL (3.8-10.6)
[2023-07-31 04:55] LABS: ALT 26 U/L (4-34); AST 26 U/L (14-36); African American GFR (CKD) >90 (>60 ml/min/1.73 sqM); Alkaline Phosphatase 111 U/L (38-126); Anion Gap 13 mmol/L; Blood Urea Nitrogen 20 mg/dL (7-17); Calcium 9.9 mg/dL (8.4-10.2); Carbon Dioxide 22 mmol/L (22-30); Chloride 104 mmol/L (98-107); Glucose 108 mg/dL (74-99); Lipase 46 U/L (23-300); Magnesium 1.7 mg/dL (1.6-2.3); Non-African American GFR(CKD) 83 (>60 ml/min/1.73 sqM); Potassium 4.6 mmol/L (3.5-5.1); Sodium 139 mmol/L (137-145); Total Bilirubin 0.5 mg/dL (0.2-1.3); Total Protein 7.1 g/dL (6.3-8.2)
[2023-07-31 04:58] LABS: INR 0.8 (<1.2); Prothrombin Time 9.6 sec (10.0-12.5)
[2023-07-31 05:03] LABS: NT-Pro-B-Type Natriuretic Pept 153 pg/mL
[2023-07-31] MEDS ORDERED: SODIUM CHLORIDE 0.9% 1,000 ML IV STA (05:47)
[2023-07-31] MEDS ORDERED: SODIUM CHLORIDE 0.9% 500 ML 500 ML IV STA (05:47)
[2023-07-31] MEDS ORDERED: AZITHROMYCIN 500 MG in SODIUM CHLORIDE 0.9% 250 ML IVPB STA (05:47)
[2023-07-31] MEDS ORDERED: PNEUMONIA PROTOCOL UTILIZED 1 EACH MISC PO PRN (05:47)
[2023-07-31] MEDS ORDERED: ALBUTEROL NEBULIZED 2.5 MG/3 ML INHALATION PRN (05:47)
[2023-07-31] MEDS ORDERED: SODIUM CHLORIDE 0.9% 1,000 ML IV SCH (06:00)
--- NOTE | 2023-07-31 06:00 | XR ---
EXAMINATION TYPE: XR chest 1V portable DATE OF EXAM: 07/31/2023 COMPARISON: Chest x-ray November 18, 2022 HISTORY: Chest pain TECHNIQUE: Single frontal view of the chest is obtained. FINDINGS: There is chronic parenchymal changes bilaterally without suspicious new focal air space op acity, pleural effusion, or pneumothorax seen. The cardiac silhouette size is stable and within norm al limits. Surgical change of the cervical spine is partially imaged. IMPRESSION: No acute process.
[2023-07-31 06:51] LABS: Appearance,Urine Cloudy (Clear); Bacteria,Urine Rare /hpf; Bilirubin,Urine Negative (Negative); Blood,Urine Trace (Negative); Color,Urine Light Yellow; Glucose,Urine (UA) Negative (Negative); Ketones,Urine Negative (Negative); Leukocyte Esterase,Urine Trace (Negative); Mucus,Urine Rare /hpf; Nitrite,Urine Negative (Negative); Protein,Urine Trace (Negative); RBC,Urine 10 /hpf (0-5); Specific Gravity,Urine 1.025 (1.001-1.035); Squamous Epithelial Cell,Urine 18 /hpf (0-4); Urobilinogen,Urine <2.0 mg/dL (<2.0); WBC,Urine 3 /hpf (0-5)
[2023-07-31] MEDS ORDERED: HYDROmorphone 0.5 MG/0.5 ML SYRINGE IVP STA (07:42)
[2023-07-31 08:50] VITALS: BP 147/89; PULSE 89; TEMP 98.4
[2023-07-31] MEDS ORDERED: lisinopriL 10 MG TAB PO SCH (09:00)
--- NOTE | 2023-07-31 12:05 | P.HPIM ---
History of Present Illness H&P Date: 07/31/23 Chief Complaint: dyspnea 53-year-old woman with medical history of nicotine abuse, hypertension, anxiety, ADHD presented for evaluation of dyspnea. Patient says that she's been increasingly short of breath for the last 2 weeks, over the last day she started to get more short of breath. She had seen her outpatient physician for this complaint in the past and was prescribed solu Medrol Dosepak as well as cefuroxime. She says that she's had subjective fevers, chills, nausea. She denies vomiting. She reports that she has a cough which sounds wet and she feels congested, but was unable to produce sputum. She denies abdominal pain, constipation, diarrhea, dysuria, numbness/weakness of extremities. In the emergency room, patient was afebrile, 174/115, heart rate 78, 95% on room air. CBC showed leukocytosis at 24.8, otherwise unremarkable. Basic metabolic panel showed BUN 20, otherwise unremarkable. Liver function tests are unremarkable. Lipase is 46. BNP was 153. Troponins less than 0.012. UA was contaminated. Influenza A, B, RSV, Covid were negative. Coags are unremarkable. EKG showed normal sinus rhythm with normal axis, no evidence of ischemia. Chest x-ray showed chronic parenchymal changes with mild vascular prominence, but no overt evidence of heart failure or opacity. All Systems reviewed and pertinent positives and negatives noted in HPI, all other symptoms are negative Gen: in no apparent distress, resting comfortably in bed Eyes: PERRL, no scleral injection or icterus HENT: normocephalic, atraumatic, good hearing acuity, moist mucous membranes Neck: no tracheal deviation, full range of motion Resp: good air exchange, breathing comfortably with no accessory muscle use, no tactile fremitus, clear to auscultation bilaterally CVS: good distal perfusion x 4, no pitting edema, regular rate and rhythm without murmurs GI: soft, NTTP, ND, no hepatosplenomegaly : no suprapubic tenderness, no CVAT, hastings catheter not present MSK: no clubbing, no cyanosis, no noted contractures of extremities Skin: no noted rashes, petechiae; temperature of skin is appropriate Neuro: moving all extremities without signs of weakness, CN II-XII intact Psych: cooperative, euthymic mood, insight and judgment intact Labs and imaging as above Assessment/plan: COPD exacerbation -Obtain pro-calcitonin -Given patient's congestion along with COPD, will prescribe five-day course of azithromycin as well as prednisone with instructions to continue her albuterol treatments at home which were prescribed by her primary care physician, patient was counseled that she is stable for discharge and can follow-up with her primary care physician. Hypertension, stage II -Patient is on doxazosin -Cardiology was consulted and recommended follow-up in 3 weeks with them, they initiated lisinopril 10 mg daily, this was prescribed to her pharmacy Nicotine abuse -Cessation counseling was provided Anxiety ADHD -Home medications were resumed, I counseled the patient on discussing with her primary psychiatrist regarding reduction of Ritalin given her anxiety and hypertension Patient is full code Past Medical History Past Medical History: COPD, GERD/Reflux, Hypertension, Pneumonia Additional Past Medical History / Comment(s): chronic back pain, lumbar degenerative disc disease, insomnia, hx shingles, hiatal hernia, kidney stones. 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, migraines,; NECK PAIN , Rabies 09/17 Last Myocardial Infarction Date:: 08/27/2016 History of Any Multi-Drug Resistant Organisms: MRSA Date of last positivie culture/infection: 09/22/09 MDRO Source:: neck Past Surgical History: Appendectomy, Back Surgery, Section, Cholecystectomy, Orthopedic Surgery Additional Past Surgical History / Comment(s): Cervical spine fusion with insertion of a metal plate, EGD, colonoscopy, radiofrequency ablation, Past Anesthesia/Blood Transfusion Reactions: No Reported Reaction Additional Past Anesthesia/Blood Transfusion Reaction / Comment(s): CLAUSTROPHOBIA Past Psychological History: ADD/ADHD, Anxiety, Panic Disorder Smoking Status: Current every day smoker Past Alcohol Use History: None Reported Past Drug Use History: None Reported - Past Family History Father Family Medical History: Cancer Additional Family Medical History / Comment(s): Father at age 48 from lung cancer. Mother Family Medical History: Congestive Heart Failure (CHF), CVA/TIA Additional Family Medical History / Comment(s): Mother is alive at age 68. She has suffered from a CVA and has chronic back problems. Patient has 2 brothers and 4 sisters with no major medical problems. Medications and Allergies Home Medications Medication Instructions Recorded Confirmed Type clonazePAM [KlonoPIN] 0.5 mg PO BID PRN 10/23/19 04/07/23 History Cyclobenzaprine [Flexeril] 5 - 10 mg PO Q8H PRN 02/25/23 04/07/23 History Gabapentin [Neurontin] 600 mg PO TID 02/25/23 04/07/23 History Omeprazole 20 mg PO BID 02/25/23 04/07/23 History Ondansetron [Zofran] 4 mg PO Q8H PRN 02/25/23 04/07/23 History diphenhydrAMINE [Benadryl] 25 mg PO DAILY PRN 02/25/23 04/07/23 History Nicotine Gum (Polacrilex) 2 mg BUCCAL Q2HR PRN 7 Days #48 03/02/23 04/07/23 Rx [Nicorette] pieceofgum risperiDONE [RisperDAL] 1 mg PO BID 30 Days #60 tab 03/02/23 04/07/23 Rx Methylphenidate HCl [Ritalin] 20 mg PO TID 04/07/23 04/07/23 History Prazosin [Minipress] 5 mg PO HS 04/07/23 04/07/23 History hydrOXYzine pamoate 50 mg PO TID PRN 04/07/23 04/07/23 History Azithromycin [Zithromax] 500 mg PO DAILY 5 Days #5 tab 07/31/23 Rx lisinopriL [Zestril] 10 mg PO DAILY #30 tab 07/31/23 Rx predniSONE [Deltasone] 40 mg PO DAILY 5 Days #10 tab 07/31/23 Rx Allergies Allergy/AdvReac Type Severity Reaction Status Date / Time ketorolac [From Toradol] Allergy Anaphylaxis Verified 07/31/23 03:26 shellfish derived Allergy Anaphylaxis Verified 07/31/23 03:26 tramadol [From Ultram] Allergy Anaphylaxis Verified 07/31/23 03:26 ibuprofen AdvReac HIVES Verified 07/31/23 03:26 Physical Exam Osteopathic Statement: *. No significant issues noted on an osteopathic structural exam other than those noted in the History and Physical/Consult. Vitals: Vital Signs Temp Pulse Resp BP Pulse Ox 07/31/23 08:44 98.4 F 89 18 147/89 97 07/31/23 07:56 98.8 F 90 18 156/103 98 07/31/23 06:26 98.1 F 79 18 163/115 98 07/31/23 05:44 83 07/31/23 05:35 80 07/31/23 03:24 98.4 F 78 18 174/115 95 07/31/23 03:21 98.4 F 78 18 174/115 95 Intake and Output 07/30/23 07/31/23 07/31/23 22:59 06:59 14:59 Other: Weight 73.482 kg Results CBC & Chem 7: 07/31/23 04:17 07/31/23 04:17 Labs: Abnormal Lab Results - Last 24 Hours (Table) 07/31/23 07/31/23 07/31/23 Range/Units 04:17 04:17 04:17 WBC 24.8 H (3.8-10.6) k/uL Neutrophils # 20.6 H (1.3-7.7) k/uL Monocytes # 1.1 H (0-1.0) k/uL PT 9.6 L (10.0-12.5) sec BUN 20 H (7-17) mg/dL Glucose 108 H (74-99) mg/dL Urine Appearance (Clear) Urine Protein (Negative) Urine Blood (Negative) Ur Leukocyte Esterase (Negative) Urine RBC (0-5) /hpf Ur Squamous Epith Cells (0-4) /hpf Urine Bacteria (None) /hpf Urine Mucus (None) /hpf 07/31/23 Range/Units 06:26 WBC (3.8-10.6) k/uL Neutrophils # (1.3-7.7) k/uL Monocytes # (0-1.0) k/uL PT (10.0-12.5) sec BUN (7-17) mg/dL Glucose (74-99) mg/dL Urine Appearance Cloudy H (Clear) Urine Protein Trace H (Negative) Urine Blood Trace H (Negative) Ur Leukocyte Esterase Trace H (Negative) Urine RBC 10 H (0-5) /hpf Ur Squamous Epith Cells 18 H (0-4) /hpf Urine Bacteria Rare H (None) /hpf Urine Mucus Rare H (None) /hpf
--- NOTE | 2023-07-31 12:07 | P.DS ---
Providers Date of admission: 07/31/23 05:47 Expected date of discharge: 07/31/23 Attending physician: Carlos Sarmiento MD Consults: 07/31/23 05:47 Consult Physician Routine Consulting Provider: Pramod Beatty Consult Reason/Comments: cp Do you want consulting provider notified?: Yes Primary care physician: Estelle Butterfield Hospital Course: COPD exacerbation Hypertension, stage II Nicotine abuse Anxiety ADHD 53-year-old woman with medical history of nicotine abuse, hypertension, anxiety, ADHD presented for evaluation of dyspnea. In the emergency room, patient was afebrile, 174/115, heart rate 78, 95% on room air. CBC showed leukocytosis at 24.8, otherwise unremarkable. Basic metabolic panel showed BUN 20, otherwise unremarkable. Liver function tests are unremarkable. Lipase is 46. BNP was 153. Troponins less than 0.012. UA was contaminated. Influenza A, B, RSV, Covid were negative. Coags are unremarkable. EKG showed normal sinus rhythm with normal axis, no evidence of ischemia. Chest x-ray showed chronic parenchymal changes with mild vascular prominence, but no overt evidence of heart failure or opacity. Given patient's congestion along with COPD, I prescribed five-day course of azithromycin as well as prednisone with instructions to continue her albuterol treatments at home which were prescribed by her primary care physician, patient was counseled that she is stable for discharge and can follow-up with her primary care physician. Cardiology was consulted for her HTN and chest pain and ruled out ACS, they recommended follow- up in 3 weeks with them, they initiated lisinopril 10 mg daily, this was prescribed to her pharmacy. I counseled the patient on discussing with her primary psychiatrist regarding reduction of Ritalin given her anxiety and hypertension. See H&P for PHX Patient Condition at Discharge: Good Plan - Discharge Summary New Discharge Prescriptions: New lisinopriL [Zestril] 10 mg PO DAILY #30 tab predniSONE [Deltasone] 40 mg PO DAILY 5 Days #10 tab Azithromycin [Zithromax] 500 mg PO DAILY 5 Days #5 tab Continue clonazePAM [KlonoPIN] 0.5 mg PO BID PRN PRN Reason: Anxiety diphenhydrAMINE [Benadryl] 25 mg PO DAILY PRN PRN Reason: Allergy Symptoms Nicotine Gum (Polacrilex) [Nicorette] 2 mg BUCCAL Q2HR PRN 7 Days #48 pieceofgum PRN Reason: Nicotine Cravings risperiDONE [RisperDAL] 1 mg PO BID 30 Days #60 tab Methylphenidate HCl [Ritalin] 20 mg PO TID Prazosin [Minipress] 5 mg PO HS hydrOXYzine pamoate 50 mg PO TID PRN PRN Reason: Anxiety Ondansetron [Zofran] 4 mg PO Q8H PRN PRN Reason: Nausea Cyclobenzaprine [Flexeril] 5 - 10 mg PO Q8H PRN PRN Reason: Muscle Pain Gabapentin [Neurontin] 600 mg PO TID Omeprazole 20 mg PO BID Discharge Medication List clonazePAM [KlonoPIN] 0.5 mg PO BID PRN 10/23/19 [History] Cyclobenzaprine [Flexeril] 5 - 10 mg PO Q8H PRN 02/25/23 [History] Gabapentin [Neurontin] 600 mg PO TID 02/25/23 [History] Omeprazole 20 mg PO BID 02/25/23 [History] Ondansetron [Zofran] 4 mg PO Q8H PRN 02/25/23 [History] diphenhydrAMINE [Benadryl] 25 mg PO DAILY PRN 02/25/23 [History] Nicotine Gum (Polacrilex) [Nicorette] 2 mg BUCCAL Q2HR PRN 7 Days #48 pieceofgum 03/02/23 [Rx] risperiDONE [RisperDAL] 1 mg PO BID 30 Days #60 tab 03/02/23 [Rx] Methylphenidate HCl [Ritalin] 20 mg PO TID 04/07/23 [History] Prazosin [Minipress] 5 mg PO HS 04/07/23 [History] hydrOXYzine pamoate 50 mg PO TID PRN 04/07/23 [History] Azithromycin [Zithromax] 500 mg PO DAILY 5 Days #5 tab 07/31/23 [Rx] lisinopriL [Zestril] 10 mg PO DAILY #30 tab 07/31/23 [Rx] predniSONE [Deltasone] 40 mg PO DAILY 5 Days #10 tab 07/31/23 [Rx] Follow up Appointment(s)/Referral(s): Jer Cedillo MD [STAFF PHYSICIAN] - 3 Weeks Estelle Butterfield DO [Primary Care Provider] - 1-2 days Discharge Disposition: HOME SELF-CARE
--- NOTE | 2023-07-31 15:44 | P.CRDCN ---
History of Present Illness Consult date: 07/31/23 Consult reason: chest pain History of present illness: The patient is a 53-year-old female who presented to the emergency room with chest discomfort. The patient states she had been feeling unwell and was suffering an upper respiratory infection with occasional fevers. The patient reported having chest pain while in the emergency room. She also has a history of anxiety DIAGNOSTICS: EKG shows sinus mechanism without ST or T-wave abnormalities Chest x-ray shows no acute cardiopulmonary process Lab data: WBC 24.8, hemoglobin 13.8, hematocrit 41.8, platelet 367, sodium 138, potassium 4.6, BUN 20, creatinine 0.81, hemoglobin A1c 6.1, magnesium 1.7, AST 26, ALT 26, troponin negative, BNP 153 REVIEW OF SYSTEMS: No fever or chills. No cough or expectoration. No diaphoresis. Patient denies headache, dizziness, blurred vision, double vision. Patient denies any stomach discomfort. No nausea, vomiting. No hematochezia. No hematemesis. Denies any black stools or blood in his stools. Denies dysuria or hematuria. No muscle weakness or numbness. Positive for shortness of breath. Positive for chest pain. Reproducible on palpation. PHYSICAL EXAMINATION: This is a 53-year-old female in no apparent distress at the time of my examination. HEENT: Head is atraumatic, normocephalic. Pupils are equal, round. There is no jugular venous distention. No carotid bruit is heard. CHEST EXAMINATION: Lungs are clear to auscultation. No chest wall tenderness is noted on palpation or with deep breathing. HEART EXAMINATION: Heart regular rate and rhythm. S1, S2 heard. No murmurs, gallops or rub. ABDOMEN: Soft, nontender. Bowel sounds are heard. No organomegaly noted. EXTREMITIES: 2+ peripheral pulses with no evidence of peripheral edema and no calf tenderness noted. NEUROLOGIC EXAMINATION: Patient is awake, alert and oriented x3. FINAL ASSESSMENT AND PLAN: Chest discomfort Shortness of breath, COPD exacerbation versus pneumonia History of anxiety History of ADHD Hypertension Prediabetes PLAN: Start lisinopril 10 mg daily Recommend pulmonary hygiene Outpatient follow-up for cardiovascular workup I am dictating on behalf of Dr Jer Cedillo's history/physical and assessment/plan. Past Medical History Past Medical History: COPD, GERD/Reflux, Hypertension, Pneumonia Additional Past Medical History / Comment(s): chronic back pain, lumbar degenerative disc disease, insomnia, hx shingles, hiatal hernia, kidney stones. 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, migraines,; NECK PAIN , Rabies 09/17 Last Myocardial Infarction Date:: 08/27/2016 History of Any Multi-Drug Resistant Organisms: MRSA Date of last positivie culture/infection: 09/22/09 MDRO Source:: neck Past Surgical History: Appendectomy, Back Surgery, Section, Cholecystectomy, Orthopedic Surgery Additional Past Surgical History / Comment(s): Cervical spine fusion with insertion of a metal plate, EGD, colonoscopy, radiofrequency ablation, Past Anesthesia/Blood Transfusion Reactions: No Reported Reaction Additional Past Anesthesia/Blood Transfusion Reaction / Comment(s): CLAUSTROPHOBIA Past Psychological History: ADD/ADHD, Anxiety, Panic Disorder Smoking Status: Current every day smoker Past Alcohol Use History: None Reported Past Drug Use History: None Reported - Past Family History Father Family Medical History: Cancer Additional Family Medical History / Comment(s): Father at age 48 from lung cancer. Mother Family Medical History: Congestive Heart Failure (CHF), CVA/TIA Additional Family Medical History / Comment(s): Mother is alive at age 68. She has suffered from a CVA and has chronic back problems. Patient has 2 brothers and 4 sisters with no major medical problems. Medications and Allergies Home Medications Medication Instructions Recorded Confirmed Type clonazePAM [KlonoPIN] 0.5 mg PO BID PRN 10/23/19 04/07/23 History Cyclobenzaprine [Flexeril] 5 - 10 mg PO Q8H PRN 02/25/23 04/07/23 History Gabapentin [Neurontin] 600 mg PO TID 02/25/23 04/07/23 History Omeprazole 20 mg PO BID 02/25/23 04/07/23 History Ondansetron [Zofran] 4 mg PO Q8H PRN 02/25/23 04/07/23 History diphenhydrAMINE [Benadryl] 25 mg PO DAILY PRN 02/25/23 04/07/23 History Nicotine Gum (Polacrilex) 2 mg BUCCAL Q2HR PRN 7 Days #48 03/02/23 04/07/23 Rx [Nicorette] pieceofgum risperiDONE [RisperDAL] 1 mg PO BID 30 Days #60 tab 03/02/23 04/07/23 Rx Methylphenidate HCl [Ritalin] 20 mg PO TID 04/07/23 04/07/23 History Prazosin [Minipress] 5 mg PO HS 04/07/23 04/07/23 History hydrOXYzine pamoate 50 mg PO TID PRN 04/07/23 04/07/23 History Azithromycin [Zithromax] 500 mg PO DAILY 5 Days #5 tab 07/31/23 Rx lisinopriL [Zestril] 10 mg PO DAILY #30 tab 07/31/23 Rx predniSONE [Deltasone] 40 mg PO DAILY 5 Days #10 tab 07/31/23 Rx Allergies Allergy/AdvReac Type Severity Reaction Status Date / Time ketorolac [From Toradol] Allergy Anaphylaxis Verified 07/31/23 03:26 shellfish derived Allergy Anaphylaxis Verified 07/31/23 03:26 tramadol [From Ultram] Allergy Anaphylaxis Verified 07/31/23 03:26 ibuprofen AdvReac HIVES Verified 07/31/23 03:26 Physical Exam Vitals: Vital Signs Temp Pulse Resp BP Pulse Ox 07/31/23 08:44 98.4 F 89 18 147/89 97 07/31/23 07:56 98.8 F 90 18 156/103 98 07/31/23 06:26 98.1 F 79 18 163/115 98 07/31/23 05:44 83 07/31/23 05:35 80 07/31/23 03:24 98.4 F 78 18 174/115 95 07/31/23 03:21 98.4 F 78 18 174/115 95 Intake and Output 07/31/23 07/31/23 07/31/23 06:59 14:59 22:59 Other: Weight 73.482 kg Results 07/31/23 04:17 07/31/23 04:17 Cardiac Enzymes 07/31/23 07/31/23 Range/Units 04:17 04:17 AST 26 (14-36) U/L Troponin I <0.012 (0.000-0.034) ng/mL Coagulation 07/31/23 Range/Units 04:17 PT 9.6 L (10.0-12.5) sec APTT 24.0 (22.0-30.0) sec Lipids 07/31/23 Range/Units 10:03 Triglycerides 105.00 (0.00-149.00) mg/dL Cholesterol 290.00 H (0.00-200.00) mg/dL HDL Cholesterol 100.00 H (40.00-60.00) mg/dL Cholesterol/HDL Ratio 2.90 Ratio CBC 07/31/23 Range/Units 04:17 WBC 24.8 H (3.8-10.6) k/uL RBC 4.52 (3.80-5.40) m/uL Hgb 13.8 (11.4-16.0) gm/dL Hct 41.8 (34.0-46.0) % Plt Count 367 (150-450) k/uL Comprehensive Metabolic Panel 07/31/23 Range/Units 04:17 Sodium 139 (137-145) mmol/L Potassium 4.6 (3.5-5.1) mmol/L Chloride 104 (98-107) mmol/L Carbon Dioxide 22 (22-30) mmol/L BUN 20 H (7-17) mg/dL Creatinine 0.81 (0.52-1.04) mg/dL Glucose 108 H (74-99) mg/dL Calcium 9.9 (8.4-10.2) mg/dL AST 26 (14-36) U/L ALT 26 (4-34) U/L Alkaline Phosphatase 111 (38-126) U/L Total Protein 7.1 (6.3-8.2) g/dL Albumin 4.0 (3.5-5.0) g/dL Intake and Output 07/31/23 07/31/23 07/31/23 06:59 14:59 22:59 Other: Weight 73.482 kg 07/31/23 04:17 07/31/23 04:17
[2023-08-01] MEDS ORDERED: AZITHROMYCIN 500 MG TAB PO SCH (09:00)
== END 2023-07-31 11:18 | disposition left against medical advice (07) | DRG 140 ==
LOC: EC 03:04 → 4SSUR 05:47
PROVIDERS: ADMIT Internal Medicine; ATTEND Internal Medicine
DX: J44.1 Chronic obstructive pulmonary disease with (acute) exacerbation (principal); J18.9 Pneumonia, unspecified organism; J44.0 Chronic obstructive pulmonary disease with (acute) lower respiratory infection; I10 Essential (primary) hypertension; F17.210 Nicotine dependence, cigarettes, uncomplicated; F90.9 Attention-deficit hyperactivity disorder, unspecified type; K21.9 Gastro-esophageal reflux disease without esophagitis; G89.29 Other chronic pain; M51.36 Other intervertebral disc degeneration, lumbar region; M54.2 Cervicalgia; F41.0 Panic disorder [episodic paroxysmal anxiety]; R73.03 Prediabetes; I25.10 Atherosclerotic heart disease of native coronary artery without angina pectoris; Z53.29 Procedure and treatment not carried out because of patient's decision for other reasons; I25.2 Old myocardial infarction; Z86.14 Personal history of Methicillin resistant Staphylococcus aureus infection; Z98.1 Arthrodesis status; Z11.52 Encounter for screening for COVID-19; Z28.310 Unvaccinated for COVID-19; Z79.891 Long term (current) use of opiate analgesic; Z82.49 Family history of ischemic heart disease and other diseases of the circulatory system; Z79.899 Other long term (current) drug therapy; Z88.6 Allergy status to analgesic agent; Z91.013 Allergy to seafood; Z88.5 Allergy status to narcotic agent
CPT/HCPCS: 36415; 71045; 80053; 80061; 81001; 83036; 83690; 83735; 83880; 84145; 84484; 85025; 85610; 85730; 87040; 87449; 87636; 93005; 94640; 96361; 96365; 96366; 96375; 96376; 99291

== ENCOUNTER 2023-09-30 08:03 | Emergency (ER) | payer OTHER ==
[2023-09-30] MEDS: LORazepam 2 MG/ML INJ IV STA (09:14)
[2023-09-30] MEDS: MORPHINE SULFATE 4 MG/ML SYRINGE IVP STA (09:15)
[2023-09-30 09:31] LABS: Basophils % (A) 0 %; Eosinophils # (A) 0.3 k/uL (0-0.7); Eosinophils % (A) 3 %; HCT 40.5 % (34.0-46.0); HGB 13.9 gm/dL (11.4-16.0); Lymphocytes # (A) 1.6 k/uL (1.0-4.8); Lymphocytes % (A) 16 %; MCH 31.6 pg (25.0-35.0); MCHC 34.4 g/dL (31.0-37.0); MCV 91.9 fL (80.0-100.0); Mean Platelet Volume 7.9; Monocytes % (A) 10 %; Neutrophils # (A) 6.6 k/uL (1.3-7.7); Neutrophils % (A) 68 %; Platelet Count 278 k/uL (150-450); RBC 4.41 m/uL (3.80-5.40); RDW 13.1 % (11.5-15.5); WBC 9.7 k/uL (3.8-10.6)
[2023-09-30 09:44] LABS: ALT 14 U/L (4-34); AST 27 U/L (14-36); African American GFR (CKD) 90 (>60 ml/min/1.73 sqM); Albumin 3.8 g/dL (3.5-5.0); Alkaline Phosphatase 87 U/L (38-126); Anion Gap 4 mmol/L; Blood Urea Nitrogen 10 mg/dL (7-17); Calcium 9.3 mg/dL (8.4-10.2); Carbon Dioxide 24 mmol/L (22-30); Chloride 111 mmol/L (98-107); Glucose 103 mg/dL (74-99); Lipase 41 U/L (23-300); Non-African American GFR(CKD) 78 (>60 ml/min/1.73 sqM); Sodium 139 mmol/L (137-145); Total Bilirubin 0.6 mg/dL (0.2-1.3); Total Protein 6.6 g/dL (6.3-8.2)
[2023-09-30 09:46] LABS: Potassium 4.3 mmol/L (3.5-5.1)
[2023-09-30 09:47] LABS: Appearance,Urine Cloudy (Clear); Bacteria,Urine Few /hpf; Bilirubin,Urine Negative (Negative); Blood,Urine Trace (Negative); Color,Urine Colorless; Glucose,Urine (UA) Negative (Negative); Ketones,Urine Negative (Negative); Leukocyte Esterase,Urine Trace (Negative); Mucus,Urine Rare /hpf; Nitrite,Urine Negative (Negative); Protein,Urine Negative (Negative); RBC,Urine 2 /hpf (0-5); Specific Gravity,Urine 1.008 (1.001-1.035); Squamous Epithelial Cell,Urine 30 /hpf (0-4); Urobilinogen,Urine <2.0 mg/dL (<2.0); WBC,Urine 4 /hpf (0-5)
--- NOTE | 2023-09-30 10:21 | ED ---
Abdominal Pain HPI - General Chief Complaint: Abdominal Pain Stated Complaint: Abd Pain, Unable to Urinate/Constipation Time Seen by Provider: 09/30/23 08:15 Source: patient Mode of arrival: ambulatory Limitations: no limitations - History of Present Illness Initial Comments: 53-year-old female presents to the emergency department reporting abdominal fiorella n. States that she has some generalized abdominal pain with difficulty urinating and having a bowel movement. States that she last urinated yesterday morning. States her last bowel movement was 2 days ago when she normally goes every day. She denies constipation. No black or bloody stools. Denies any hematuria. Patient's pain radiates around to her right flank. She denies any midline back pain. Denies any falls. She does have a history of chronic low back pain and neck pain for which she takes Ririe at home. States that her home medications were not helping with her pain. She denies any fevers. No history of IV drug use. No numbness, tingling or weakness in her lower extremities. No other alleviating, precipitating or modifying factors - Related Data Home Medications Medication Instructions Recorded Confirmed clonazePAM [KlonoPIN] 0.5 mg PO BID PRN 10/23/19 09/30/23 diphenhydrAMINE [Benadryl] 25 mg PO DAILY PRN 02/25/23 09/30/23 Methylphenidate HCl [Ritalin] 20 mg PO TID@0700,1300,1700 04/07/23 09/30/23 Prazosin [Minipress] 5 mg PO HS 04/07/23 09/30/23 hydrOXYzine pamoate [Vistaril] 50 mg PO TID PRN 04/07/23 09/30/23 Albuterol Inhaler [Ventolin Hfa 1 - 2 puff INHALATION RT-Q6H PRN 09/30/23 09/30/23 Inhaler] Gabapentin 800 mg PO TID 09/30/23 09/30/23 buPROPion XL [Wellbutrin XL] 150 mg PO DAILY 09/30/23 09/30/23 busPIRone HCL [Buspar] 30 mg PO BID 09/30/23 09/30/23 risperiDONE 2 mg PO BID 09/30/23 09/30/23 Previous Rx's Medication Instructions Recorded Nicotine Gum (Polacrilex) 2 mg BUCCAL Q2HR PRN 7 Days #48 03/02/23 [Nicorette] pieceofgum HYDROcodone/APAP 7.5-325MG [Ririe 1 tab PO Q6HR PRN 3 Days #12 tab 09/30/23 7.5-325] Magnesium Hydroxide [Milk of 400 mg PO DAILY PRN #60 ml 09/30/23 Magnesia] predniSONE [Deltasone] 20 mg PO BID #10 tab 09/30/23 Allergies Allergy/AdvReac Type Severity Reaction Status Date / Time ketorolac [From Toradol] Allergy Anaphylaxis Verified 09/30/23 12:15 shellfish derived Allergy Anaphylaxis Verified 09/30/23 12:15 tramadol [From Ultram] Allergy Anaphylaxis Verified 09/30/23 12:15 ibuprofen AdvReac HIVES Verified 09/30/23 12:15 Review of Systems ROS Statement: Those systems with pertinent positive or pertinent negative responses have been documented in the HPI. ROS Other: All systems not noted in ROS Statement are negative. Past Medical History Past Medical History: COPD, GERD/Reflux, Hypertension, Pneumonia Additional Past Medical History / Comment(s): chronic back pain, lumbar degenerative disc disease, insomnia, hx shingles, hiatal hernia, kidney stones. 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, migraines,; NECK PAIN , Rabies 09/17 Last Myocardial Infarction Date:: 08/27/2016 History of Any Multi-Drug Resistant Organisms: MRSA Date of last positivie culture/infection: 09/22/09 MDRO Source:: neck Past Surgical History: Appendectomy, Back Surgery, Section, Cholecystectomy, Orthopedic Surgery Additional Past Surgical History / Comment(s): Cervical spine fusion with insertion of a metal plate, EGD, colonoscopy, radiofrequency ablation, Past Anesthesia/Blood Transfusion Reactions: No Reported Reaction Additional Past Anesthesia/Blood Transfusion Reaction / Comment(s): CLAUSTROPHOBIA Past Psychological History: ADD/ADHD, Anxiety, Panic Disorder Smoking Status: Current every day smoker Past Alcohol Use History: None Reported Past Drug Use History: None Reported - Past Family History Father Family Medical History: Cancer Additional Family Medical History / Comment(s): Father at age 48 from lung cancer. Mother Family Medical History: Congestive Heart Failure (CHF), CVA/TIA Additional Family Medical History / Comment(s): Mother is alive at age 68. She has suffered from a CVA and has chronic back problems. Patient has 2 brothers and 4 sisters with no major medical problems. General Exam Limitations: no limitations General appearance: alert, in no apparent distress Head exam: Present: atraumatic, normocephalic, normal inspection Eye exam: Present: normal appearance, PERRL, EOMI. Absent: scleral icterus, conjunctival injection, periorbital swelling ENT exam: Present: normal exam, mucous membranes moist Neck exam: Present: normal inspection. Absent: tenderness, meningismus, lymphadenopathy Respiratory exam: Present: normal lung sounds bilaterally. Absent: respiratory distress, wheezes, rales, rhonchi, stridor Cardiovascular Exam: Present: regular rate, normal rhythm, normal heart sounds. Absent: systolic murmur, diastolic murmur, rubs, gallop, clicks GI/Abdominal exam: Present: soft, normal bowel sounds. Absent: distended, tenderness, guarding, rebound, rigid Extremities exam: Present: normal inspection, full ROM, normal capillary refill. Absent: tenderness, pedal edema, joint swelling, calf tenderness Back exam: Present: normal inspection, CVA tenderness (R) Neurological exam: Present: alert, oriented X3, CN II-XII intact Psychiatric exam: Present: normal affect, normal mood Skin exam: Present: warm, dry, intact, normal color. Absent: rash Course Vital Signs 09/30/23 09/30/23 09/30/23 08:11 11:02 12:00 Temperature 98.9 F 98.2 F Pulse Rate 105 H 84 79 Respiratory 20 18 18 Rate Blood Pressure 138/89 129/80 150/98 O2 Sat by Pulse 97 95 96 Oximetry Medical Decision Making - Medical Decision Making Was pt. sent in by a medical professional or institution (, PA, PAYROLL ASSISTANT, urgent care, hospital, or fci...) When possible be specific @ -No Did you speak to anyone other than the patient for history (EMS, parent, family, police, friend...)? What history was obtained from this source @ -No Did you review nursing and triage notes (agree or disagree)? Why? @ -I reviewed and agree with nursing and triage notes Were old charts reviewed (outside hosp., previous admission, EMS record, old EKG, old radiological studies, urgent care reports/EKG's, fci records)? Report findings @ -No old charts were reviewed Differential Diagnosis (chest pain, altered mental status, abdominal pain women, abdominal pain men, vaginal bleeding, weakness, fever, dyspnea, syncope, headache, dizziness, GI bleed, back pain, seizure, CVA, palpatations, mental health, musculoskeletal)? @ -Differential Abdominal Pain Women: Appendicitis, Cholecystitis, diverticulosis, ischemic bowel, pancreatitis, hepatitis, UTI, gastroenteritis, AAA, incarcerated hernia, bowel obstruction, constipation, inflammatory bowel, hepatitis, peptic ulcer disease, splenic infarction, perforated viscus, vulvitis, ovarian torsion, PID, kidney stone, placenta abruption, this is not meant to be an all-inclusive list EKG interpreted by me (3pts min.). @ -Not done X-rays interpreted by me (1pt min.). @ -None done CT interpreted by me (1pt min.). @ -Yes and does not demonstrate any signs of cord compromise U/S interpreted by me (1pt. min.). @ -None done What testing was considered but not performed or refused? (CT, X-rays, U/S, labs)? Why? @ -None What meds were considered but not given or refused? Why? @ -None Did you discuss the management of the patient with other professionals (professionals i.e. , PA, PAYROLL ASSISTANT, lab, RT, psych nurse, social services coordinator, ferris wheel operator, teacher, forward air controller/air officer, case picker)? Give summary @ -No Was smoking cessation discussed for >3mins.? @ -No Was critical care preformed (if so, how long)? @ -No Were there social determinants of health that impacted care today? How? (Homelessness, low income, unemployed, alcoholism, drug addiction, transp ortation, low edu. Level, literacy, decrease access to med. care, snf, rehab)? @ -No Was there de-escalation of care discussed even if they declined (Discuss DNR or withdrawal of care, Hospice)? DNR status @ -No What co-morbidities impacted this encounter? (DM, HTN, Smoking, COPD, CAD, Cancer, CVA, ARF, Chemo, Hep., AIDS, mental health diagnosis, sleep apnea, morbid obesity)? @ -Chronic back pain Was patient admitted / discharged? Hospital course, mention meds given and route, prescriptions, significant lab abnormalities, going to OR and other pertinent info. @ -Upon arrival patient was placed into room 16. Thorough history and physical exam was performed. Rectal exam was performed and patient does have rectal tone. There is not a significant amount of stool within the rectal vault. Patient is bladder scanned and does have 223 in her bladder. The patient is then able to get up and urinate to provide a sample. She is requesting pain and anxiety medications. Laboratory studies are conducted. CT was performed the patient's abdomen as well as her back. Patient has no saddle anesthesia. No incontinence. Patient is not retaining urine. She does have normal rectal tone. Patient does request more pain medication within 5 minutes of getting the first dose. She was provided with a second dose and then the results were discussed with the patient. At this time I will treat the patient for an exacerbation of low back pain with prednisone and pain medications. She is to follow-up with her doctor. If she has any new or worsening symptoms she needs to return to the emergency department. Patient was agreeable to this plan and she was discharged in stable condition Undiagnosed new problem with uncertain prognosis? @ -Yes Drug Therapy requiring intensive monitoring for toxicity (Heparin, Nitro, Insulin, Cardizem)? @ -No Were any procedures done? @ -No Diagnosis/symptom? @ -Acute abdominal pain, acute flank pain Acute, or Chronic, or Acute on Chronic? @ -Acute Uncomplicated (without systemic symptoms) or Complicated (systemic symptoms)? @ -Complicated Side effects of treatment? @ -No Exacerbation, Progression, or Severe Exacerbation? @ -No Poses a threat to life or bodily function? How? (Chest pain, USA, PR, pneumonia, PE, COPD, DKA, ARF, appy, cholecystitis, CVA, Diverticulitis, Homicidal, Suicidal, threat to staff... and all critical care pts) @ -No - Lab Data Result diagrams: 09/30/23 08:53 09/30/23 08:53 Lab Results 09/30/23 09/30/23 09/30/23 Range/Units 08:53 08:53 08:53 WBC 9.7 (3.8-10.6) k/uL RBC 4.41 (3.80-5.40) m/uL Hgb 13.9 (11.4-16.0) gm/dL Hct 40.5 (34.0-46.0) % MCV 91.9 (80.0-100.0) fL MCH 31.6 (25.0-35.0) pg MCHC 34.4 (31.0-37.0) g/dL RDW 13.1 (11.5-15.5) % Plt Count 278 (150-450) k/uL MPV 7.9 Neutrophils % 68 % Lymphocytes % 16 % Monocytes % 10 % Eosinophils % 3 % Basophils % 0 % Neutrophils # 6.6 (1.3-7.7) k/uL Lymphocytes # 1.6 (1.0-4.8) k/uL Monocytes # 1.0 (0-1.0) k/uL Eosinophils # 0.3 (0-0.7) k/uL Basophils # 0.0 (0-0.2) k/uL Sodium 139 (137-145) mmol/L Potassium 4.3 (3.5-5.1) mmol/L Chloride 111 H (98-107) mmol/L Carbon Dioxide 24 (22-30) mmol/L Anion Gap 4 mmol/L BUN 10 (7-17) mg/dL Creatinine 0.85 (0.52-1.04) mg/dL Est GFR (CKD-EPI)AfAm 90 (>60 ml/min/1.73 sqM) Est GFR (CKD-EPI)NonAf 78 (>60 ml/min/1.73 sqM) Glucose 103 H (74-99) mg/dL Plasma Lactic Acid Ruben (0.7-2.0) mmol/L Calcium 9.3 (8.4-10.2) mg/dL Total Bilirubin 0.6 (0.2-1.3) mg/dL AST 27 (14-36) U/L ALT 14 (4-34) U/L Alkaline Phosphatase 87 (38-126) U/L Total Protein 6.6 (6.3-8.2) g/dL Albumin 3.8 (3.5-5.0) g/dL Lipase 41 (23-300) U/L Urine Color Colorless Urine Appearance Cloudy H (Clear) Urine pH 6.0 (5.0-8.0) Ur Specific [place] 1.008 (1.001-1.035) Urine Protein Negative (Negative) Urine Glucose (UA) Negative (Negative) Urine Ketones Negative (Negative) Urine Blood Trace H (Negative) Urine Nitrite Negative (Negative) Urine Bilirubin Negative (Negative) Urine Urobilinogen <2.0 (<2.0) mg/dL Ur Leukocyte Esterase Trace H (Negative) Urine RBC 2 (0-5) /hpf Urine WBC 4 (0-5) /hpf Ur Squamous Epith Cells 30 H (0-4) /hpf Urine Bacteria Few H (None) /hpf Urine Mucus Rare H (None) /hpf 09/30/23 Range/Units 08:53 WBC (3.8-10.6) k/uL RBC (3.80-5.40) m/uL Hgb (11.4-16.0) gm/dL Hct (34.0-46.0) % MCV (80.0-100.0) fL MCH (25.0-35.0) pg MCHC (31.0-37.0) g/dL RDW (11.5-15.5) % Plt Count (150-450) k/uL MPV Neutrophils % % Lymphocytes % % Monocytes % % Eosinophils % % Basophils % % Neutrophils # (1.3-7.7) k/uL Lymphocytes # (1.0-4.8) k/uL Monocytes # (0-1.0) k/uL Eosinophils # (0-0.7) k/uL Basophils # (0-0.2) k/uL Sodium (137-145) mmol/L Potassium (3.5-5.1) mmol/L Chloride (98-107) mmol/L Carbon Dioxide (22-30) mmol/L Anion Gap mmol/L BUN (7-17) mg/dL Creatinine (0.52-1.04) mg/dL Est GFR (CKD-EPI)AfAm (>60 ml/min/1.73 sqM) Est GFR (CKD-EPI)NonAf (>60 ml/min/1.73 sqM) Glucose (74-99) mg/dL Plasma Lactic Acid Ruben 1.1 (0.7-2.0) mmol/L Calcium (8.4-10.2) mg/dL Total Bilirubin (0.2-1.3) mg/dL AST (14-36) U/L ALT (4-34) U/L Alkaline Phosphatase (38-126) U/L Total Protein (6.3-8.2) g/dL Albumin (3.5-5.0) g/dL Lipase (23-300) U/L Urine Color Urine Appearance (Clear) Urine pH (5.0-8.0) Ur Specific [place] (1.001-1.035) Urine Protein (Negative) Urine Glucose (UA) (Negative) Urine Ketones (Negative) Urine Blood (Negative) Urine Nitrite (Negative) Urine Bilirubin (Negative) Urine Urobilinogen (<2.0) mg/dL Ur Leukocyte Esterase (Negative) Urine RBC (0-5) /hpf Urine WBC (0-5) /hpf Ur Squamous Epith Cells (0-4) /hpf Urine Bacteria (None) /hpf Urine Mucus (None) /hpf Disposition Clinical Impression: Lumbar back pain, Lumbar radiculopathy, acute Disposition: HOME SELF-CARE Condition: Stable Instructions (If sedation given, give patient instructions): Low Back Strain (ED), Lumbar Radiculopathy (ED) Additional Instructions: Take the prednisone starting tomorrow. Take the pain medications as needed. Follow-up with your primary care doctor in 2 to 4 days. I also recommend that you follow-up with the orthospine surgeon for further management and return for any new or worsening symptoms Prescriptions: predniSONE [Deltasone] 20 mg PO BID #10 tab Magnesium Hydroxide [Milk of Magnesia] 400 mg PO DAILY PRN #60 ml PRN Reason: Constipation HYDROcodone/APAP 7.5-325MG [Ririe 7.5-325] 1 tab PO Q6HR PRN 3 Days #12 tab PRN Reason: Pain Is patient prescribed a controlled substance at d/c from ED?: Yes When asked, does pt state using other controlled substances?: No If prescribed controlled substance>3 days was MAPS reviewed?: Prescribed <3 Days If opioid is for acute pain is fill amount 7 days or less?: Yes Referrals: Estelle Butterfield DO [Primary Care Provider] - 1-2 days Cortez Darling DO [Doctor of Osteopathic Medicine] - 1-2 days Rickie Duong DO [Doctor of Osteopathic Medicine] - 1-2 days Time of Disposition: 12:26
--- NOTE | 2023-09-30 10:31 | CT ---
EXAMINATION: CT ABDOMEN AND PELVIS WITH IV CONTRAST DATE OF EXAMINATION: 09/30/2023. COMPARISON: 01/01/2023.. INDICATION: Abdominal and back pain. PROCEDURE: Axial CT of the abdomen and pelvis was performed with contrast and sagittal and coronal reformatted images were performed. CT dose lowering techniques were used, to include: automated expos ure control, adjustment for patient size, and/or use of iterative reconstruction. 100 mL of Isovue-30 0. FINDINGS: LOWER CHEST : The visualized lung bases are clear. There are no pleural or pericardial effusions. ABDOMEN: Liver and Biliary system: Normal. Adrenal glands: Normal. Kidneys and ureters: Normal. Spleen: Normal. Pancreas: Normal. Gallbladder: Normal. Lymph nodes, Peritoneum and mesentery: There is no mesenteric or retroperitoneal lymphadenopathy. Gastrointestinal tract: There are no dilated loops of bowel or free intraperitoneal air. The appe ndix is absent . There is a small hiatal hernia. Aorta/IVC: There is moderate vascular calcification throughout the abdominal aorta without evidence of aneurysmal dilation or dissection. IVC normal. Abdominal wall: Normal. PELVIS: Fluid: There is no free fluid in the pelvis. Lymph Nodes: There is no pelvic or inguinal lymphadenopathy.. Urinary bladder: Normal. BONES: There are no osseous destructive lesions.. ADDITIONAL SIGNIFICANT FINDINGS: None. IMPRESSION: 1. No acute process within the abdomen or pelvis. 2. Additional findings as above.
--- NOTE | 2023-09-30 10:49 | CT ---
EXAMINATION TYPE: CT lumbar spine w con DATE OF EXAM: 09/30/2023 COMPARISON: 05/19/2013 HISTORY: 53-year-old female with back pain TECHNIQUE: Contiguous axial scanning of the lumbar spine performed with IV Contrast, patient injected with 100 mL of Isovue 300. Coronal and sagittal reconstructions performed. CT DLP: 395.4 mGycm Automated exposure control for dose reduction was used. FINDINGS: Moderate to severe fatty infiltration of the liver suggested. Transitional lumbosacral segment is noted as a lumbarized S1. Hypertrophic facet arthropathy mid to lower lumbar spine. Trace grade 1 retrolisthesis L3-L4 and L4-L5. Remaining alignment is maintained. Vertebral body heights are preserved. There are posterior disc bulges particularly at L3-L4, L4-L5, L5-S1. Mild to moderate degenerative di sc disease. Allowing for CT technique, no evident canal compromise. On the right, there is moderate to severe neuroforaminal stenosis at L5-S1 and moderate at L4-L5. On the left, there is mild neuroforaminal stenoses at both L4-L5 and L5-S1. IMPRESSION: 1. HYPERTROPHIC FACET ARTHROPATHY MID TO LOWER LUMBAR SPINE WITH DEGENERATIVE TRACE GRADE 1 RETROLIST HESIS L3-L4 AND L4-L5. 2. NO VERTEBRAL COMPRESSION COLLAPSE. 3. MILD TO MODERATE DEGENERATIVE DISC DISEASE MID TO LOWER LUMBAR SPINE. THERE ARE DISC BULGES BUT NO LARGE FOCAL DISC HERNIATION OR EVIDENT CANAL COMPROMISE. 4. MODERATE TO SEVERE RIGHT NEUROFORAMINAL STENOSIS AT L5-S1 AND MODERATE ON THE RIGHT AT L4-L5.
[2023-09-30 11:21] VITALS: RESP 18
[2023-09-30] MEDS: methylPREDNISolone SOD SUCCI 125 MG/2 ML VIAL IV STA (12:00)
[2023-09-30] MEDS: HYDROmorphone 1 MG/ML 1 ML SYRINGE IVP STA (12:02)
[2023-09-30 12:07] VITALS: BP 150/98; PULSE 79; TEMP 98.2
== END 2023-09-30 12:46 | disposition home or self-care (01) ==
LOC: EC 08:03
DX: M54.16 Radiculopathy, lumbar region (principal); I10 Essential (primary) hypertension; J44.9 Chronic obstructive pulmonary disease, unspecified; I25.2 Old myocardial infarction; F41.9 Anxiety disorder, unspecified; K21.9 Gastro-esophageal reflux disease without esophagitis; F17.200 Nicotine dependence, unspecified, uncomplicated; Z79.899 Other long term (current) drug therapy; Z88.5 Allergy status to narcotic agent; Z88.6 Allergy status to analgesic agent; Z88.8 Allergy status to other drugs, medicaments and biological substances; Z91.013 Allergy to seafood; Z90.49 Acquired absence of other specified parts of digestive tract
CPT/HCPCS: 99284; 96374; 96375 ×3; 36415; 80053; 83605; 83690; 85025; 81001; 72132; 74177; 51798; J2060; J2270; J2930; J1170; Q9967

== ENCOUNTER 2023-10-14 12:03 | Emergency (ER) | payer OTHER ==
--- NOTE | 2023-10-14 12:20 | ED ---
General Adult HPI - General Chief complaint: Shortness of Breath Stated complaint: SOB Time Seen by Provider: 10/14/23 12:05 Source: patient, RN notes reviewed, old records reviewed Mode of arrival: ambulatory Limitations: no limitations - History of Present Illness Initial comments: This is a 53-year-old female who presents to the emergency department complaining of breathing. Patient states she is a smoker and continues to smoke. Patient states she is also been cough little bit and is complaining some back pain. Patient thinks that might be because of the coughing or could be because she has occasional kidney stones. Patient denies any fever or chills. Patient states for the last few days she has not been feeling good but today at 2:00 in the morning is when the difficulty breathing really began. Patient denies chest pain or palpitation. Patient has abdominal pain patient has nausea vomit diarrhea. - Related Data Home Medications Medication Instructions Recorded Confirmed clonazePAM [KlonoPIN] 0.5 mg PO BID PRN 10/23/19 09/30/23 diphenhydrAMINE [Benadryl] 25 mg PO DAILY PRN 02/25/23 09/30/23 Methylphenidate HCl [Ritalin] 20 mg PO TID@0700,1300,1700 04/07/23 09/30/23 Prazosin [Minipress] 5 mg PO HS 04/07/23 09/30/23 hydrOXYzine pamoate [Vistaril] 50 mg PO TID PRN 04/07/23 09/30/23 Albuterol Inhaler [Ventolin Hfa 1 - 2 puff INHALATION RT-Q6H PRN 09/30/23 09/30/23 Inhaler] Gabapentin 800 mg PO TID 09/30/23 09/30/23 buPROPion XL [Wellbutrin XL] 150 mg PO DAILY 09/30/23 09/30/23 busPIRone HCL [Buspar] 30 mg PO BID 09/30/23 09/30/23 risperiDONE 2 mg PO BID 09/30/23 09/30/23 Previous Rx's Medication Instructions Recorded Nicotine Gum (Polacrilex) 2 mg BUCCAL Q2HR PRN 7 Days #48 03/02/23 [Nicorette] pieceofgum HYDROcodone/APAP 7.5-325MG [[place] 1 tab PO Q6HR PRN 3 Days #12 tab 09/30/23 7.5-325] Magnesium Hydroxide [Milk of 400 mg PO DAILY PRN #60 ml 09/30/23 Magnesia] predniSONE [Deltasone] 20 mg PO BID #10 tab 09/30/23 Allergies Allergy/AdvReac Type Severity Reaction Status Date / Time ketorolac [From Toradol] Allergy Anaphylaxis Verified 09/30/23 12:15 shellfish derived Allergy Anaphylaxis Verified 09/30/23 12:15 tramadol [From Ultram] Allergy Anaphylaxis Verified 09/30/23 12:15 ibuprofen AdvReac HIVES Verified 09/30/23 12:15 Review of Systems ROS Statement: Those systems with pertinent positive or pertinent negative responses have been documented in the HPI. ROS Other: All systems not noted in ROS Statement are negative. Past Medical History Past Medical History: COPD, GERD/Reflux, Hypertension, Pneumonia Additional Past Medical History / Comment(s): chronic back pain, lumbar degenerative disc disease, insomnia, hx shingles, hiatal hernia, kidney stones. 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, migraines,; NECK PAIN , Rabies 09/17 Last Myocardial Infarction Date:: 08/27/2016 History of Any Multi-Drug Resistant Organisms: MRSA Date of last positivie culture/infection: 09/22/09 MDRO Source:: neck Past Surgical History: Appendectomy, Back Surgery, Section, Cholecystectomy, Orthopedic Surgery Additional Past Surgical History / Comment(s): Cervical spine fusion with insertion of a metal plate, EGD, colonoscopy, radiofrequency ablation, Past Anesthesia/Blood Transfusion Reactions: No Reported Reaction Additional Past Anesthesia/Blood Transfusion Reaction / Comment(s): CLAUSTROPHOBIA Past Psychological History: ADD/ADHD, Anxiety, Panic Disorder Smoking Status: Current every day smoker Past Alcohol Use History: None Reported Past Drug Use History: None Reported - Past Family History Father Family Medical History: Cancer Additional Family Medical History / Comment(s): Father at age 48 from lung cancer. Mother Family Medical History: Congestive Heart Failure (CHF), CVA/TIA Additional Family Medical History / Comment(s): Mother is alive at age 68. She has suffered from a CVA and has chronic back problems. Patient has 2 brothers and 4 sisters with no major medical problems. General Exam - General Exam Comments Initial Comments: GENERAL: Patient is well-developed and well-nourished. Patient is nontoxic and well- hydrated and is in mild distress. ENT: Neck is soft and supple. No significant lymphadenopathy is noted. Oropharynx is clear. Moist mucous membranes. Neck has full range of motion without eliciting any pain. EYES: The sclera were anicteric and conjunctiva were pink and moist. Extraocular movements were intact and pupils were equal round and reactive to light. Eyelids were unremarkable. PULMONARY: Unlabored respirations. Good breath sounds bilaterally. CARDIOVASCULAR: There is a regular rate and rhythm without any murmurs gallops or rubs. ABDOMEN: Soft and nontender with normal bowel sounds. No palpable organomegaly was noted. There is no palpable pulsatile mass. SKIN: Skin is clear with no lesions or rashes and otherwise unremarkable. NEUROLOGIC: Patient is alert and oriented x3. Cranial nerves II through XII are grossly intact. Motor and sensory are also intact. Normal speech, volume and content. Symmetrical smile. MUSCULOSKELETAL: Normal extremities with adequate strength and full range of motion. LYMPHATICS: No significant lymphadenopathy is noted PSYCHIATRIC: Normal psychiatric evaluation. Limitations: no limitations Course Vital Signs 10/14/23 10/14/23 10/14/23 12:06 13:09 13:19 Temperature 98.7 F Pulse Rate 108 H 92 96 Respiratory 20 Rate Blood Pressure 139/100 O2 Sat by Pulse 98 Oximetry 10/14/23 13:20 Temperature Pulse Rate 97 Respiratory 18 Rate Blood Pressure 143/91 O2 Sat by Pulse 98 Oximetry Medical Decision Making - Medical Decision Making EKG is interpreted by myself read EKG shows sinus tachycardia at 104 bpm NM interval is 144 QRS is 81 QT interval 340 QTc is 410. Patient's EKG shows some T wave inversions in V1 and V2 Was pt. sent in by a medical professional or institution (, PA, NURSING PROGRAM COORDINATOR, urgent care, hospital, or jail...) When possible be specific @ -No Did you speak to anyone other than the patient for history (EMS, parent, family, police, friend...)? What history was obtained from this source @ -No Did you review nursing and triage notes (agree or disagree)? Why? @ -I reviewed and agree with nursing and triage notes Were old charts reviewed (outside hosp., previous admission, EMS record, old EKG, old radiological studies, urgent care reports/EKG's, jail records)? Report findings @ -I reviewed prior charts and prior lab work on this patient Differential Diagnosis (chest pain, altered mental status, abdominal pain women, abdominal pain men, vaginal bleeding, weakness, fever, dyspnea, syncope, headach e, dizziness, GI bleed, back pain, seizure, CVA, palpatations, mental health, musculoskeletal)? @ -Differential Dyspnea: Coronary syndrome, arrhythmia, tamponade, asthma, COPD, pulmonary embolism, pn eumonia, pneumothorax, pulmonary effusion, anaphylaxis, diabetic ketoacidosis, flailed chest, pulmonary contusion, diaphragmatic rupture, anemia, neuromuscular, this is not meant to be an all-inclusive list. EKG interpreted by me (3pts min.). @ -As above X-rays interpreted by me (1pt min.). @ -Chest x-ray shows no acute abnormality CT interpreted by me (1pt min.). @ -None done U/S interpreted by me (1pt. min.). @ -None done What testing was considered but not performed or refused? (CT, X-rays, U/S, labs)? Why? @ -None What meds were considered but not given or refused? Why? @ -None Did you discuss the management of the patient with other professionals (professionals i.e. , PA, NURSING PROGRAM COORDINATOR, lab, RT, psych nurse, administrator social welfare, distribution lineman, teacher, aboriginal home school liaison officer, case coordinator)? Give summary @ -No Was smoking cessation discussed for >3mins.? @ -No Was critical care preformed (if so, how long)? @ -No Were there social determinants of health that impacted care today? How? (Homelessness, low income, unemployed, alcoholism, drug addiction, transportation, low edu. Level, literacy, decrease access to med. care, half-way, rehab)? @ -No Was there de-escalation of care discussed even if they declined (Discuss DNR or withdrawal of care, Hospice)? DNR status @ -No What co-morbidities impacted this encounter? (DM, HTN, Smoking, COPD, CAD, Cancer, CVA, ARF, Chemo, Hep., AIDS, mental health diagnosis, sleep apnea, morbid obesity)? @ -None Was patient admitted / discharged? Hospital course, mention meds given and route, prescriptions, significant lab abnormalities, going to OR and other pertinent info. @ -Patient was given droperidol x 2 for pain she states it did not touch her I try to give her Toradol she states she had an allergy I was going to give her Ultram she also stated she had an allergy. Patient was requesting narcotics on multiple occasions. Patient never was in any respiratory distress her pulse ox was in the high 90s at all times without oxygen. Undiagnosed new problem with uncertain prognosis? @ -No Drug Therapy requiring intensive monitoring for toxicity (Heparin, Nitro, In sulin, Cardizem)? @ -No Were any procedures done? @ -No Diagnosis/symptom? @ -Dyspnea Acute, or Chronic, or Acute on Chronic? @ -Acute Uncomplicated (without systemic symptoms) or Complicated (systemic symptoms)? @ -Complicated Side effects of treatment? @ -No Exacerbation, Progression, or Severe Exacerbation? @ -No Poses a threat to life or bodily function? How? (Chest pain, USA, ME, pneumonia, PE, COPD, DKA, ARF, appy, cholecystitis, CVA, Diverticulitis, Homicidal, Suicidal, threat to staff... and all critical care pts) @ -No - Lab Data Result diagrams: 10/14/23 12:42 10/14/23 12:42 Lab Results 10/14/23 10/14/23 10/14/23 Range/Units 12:42 12:42 12:42 WBC 8.9 (3.8-10.6) k/uL RBC 4.26 (3.80-5.40) m/uL Hgb 12.5 (11.4-16.0) gm/dL Hct 39.3 (34.0-46.0) % MCV 92.2 (80.0-100.0) fL MCH 29.4 (25.0-35.0) pg MCHC 31.9 (31.0-37.0) g/dL RDW 12.2 (11.5-15.5) % Plt Count 498 H (150-450) k/uL MPV 7.0 Neutrophils % 67 % Lymphocytes % 19 % Monocytes % 8 % Eosinophils % 5 % Basophils % 0 % Neutrophils # 6.0 (1.3-7.7) k/uL Lymphocytes # 1.6 (1.0-4.8) k/uL Monocytes # 0.7 (0-1.0) k/uL Eosinophils # 0.4 (0-0.7) k/uL Basophils # 0.0 (0-0.2) k/uL PT 10.0 (10.0-12.5) sec INR 0.9 (<1.2) APTT 28.4 (22.0-30.0) sec D-Dimer 0.52 (<0.60) mg/L FEU Sodium (137-145) mmol/L Potassium (3.5-5.1) mmol/L Chloride (98-107) mmol/L Carbon Dioxide (22-30) mmol/L Anion Gap mmol/L BUN (7-17) mg/dL Creatinine (0.52-1.04) mg/dL Est GFR (CKD-EPI)AfAm (>60 ml/min/1.73 sqM) Est GFR (CKD-EPI)NonAf (>60 ml/min/1.73 sqM) Glucose (74-99) mg/dL Plasma Lactic Acid Ruben (0.7-2.0) mmol/L Calcium (8.4-10.2) mg/dL Total Bilirubin (0.2-1.3) mg/dL AST (14-36) U/L ALT (4-34) U/L Alkaline Phosphatase (38-126) U/L Troponin I (0.000-0.034) ng/mL Total Protein (6.3-8.2) g/dL Albumin (3.5-5.0) g/dL Urine Color Colorless Urine Appearance Clear (Clear) Urine pH 6.5 (5.0-8.0) Ur Specific Bruni 1.004 (1.001-1.035) Urine Protein Negative (Negative) Urine Glucose (UA) Negative (Negative) Urine Ketones Negative (Negative) Urine Blood Negative (Negative) Urine Nitrite Negative (Negative) Urine Bilirubin Negative (Negative) Urine Urobilinogen <2.0 (<2.0) mg/dL Ur Leukocyte Esterase Negative (Negative) Influenza Type A (PCR) (Not Detectd) Influenza Type B (PCR) (Not Detectd) RSV (PCR) (Not Detectd) SARS-CoV-2 (PCR) (Not Detectd) 10/14/23 10/14/23 10/14/23 Range/Units 12:42 12:42 12:42 WBC (3.8-10.6) k/uL RBC (3.80-5.40) m/uL Hgb (11.4-16.0) gm/dL Hct (34.0-46.0) % MCV (80.0-100.0) fL MCH (25.0-35.0) pg MCHC (31.0-37.0) g/dL RDW (11.5-15.5) % Plt Count (150-450) k/uL MPV Neutrophils % % Lymphocytes % % Monocytes % % Eosinophils % % Basophils % % Neutrophils # (1.3-7.7) k/uL Lymphocytes # (1.0-4.8) k/uL Monocytes # (0-1.0) k/uL Eosinophils # (0-0.7) k/uL Basophils # (0-0.2) k/uL PT (10.0-12.5) sec INR (<1.2) APTT (22.0-30.0) sec D-Dimer (<0.60) mg/L FEU Sodium 143 (137-145) mmol/L Potassium 3.6 (3.5-5.1) mmol/L Chloride 114 H (98-107) mmol/L Carbon Dioxide 19 L (22-30) mmol/L Anion Gap 10 mmol/L BUN 7 (7-17) mg/dL Creatinine 0.84 (0.52-1.04) mg/dL Est GFR (CKD-EPI)AfAm >90 (>60 ml/min/1.73 sqM) Est GFR (CKD-EPI)NonAf 78 (>60 ml/min/1.73 sqM) Glucose 115 H (74-99) mg/dL Plasma Lactic Acid Ruben 1.2 (0.7-2.0) mmol/L Calcium 9.3 (8.4-10.2) mg/dL Total Bilirubin 0.2 (0.2-1.3) mg/dL AST 19 (14-36) U/L ALT 13 (4-34) U/L Alkaline Phosphatase 116 (38-126) U/L Troponin I <0.012 (0.000-0.034) ng/mL Total Protein 6.1 L (6.3-8.2) g/dL Albumin 3.4 L (3.5-5.0) g/dL Urine Color Urine Appearance (Clear) Urine pH (5.0-8.0) Ur Specific Bruni (1.001-1.035) Urine Protein (Negative) Urine Glucose (UA) (Negative) Urine Ketones (Negative) Urine Blood (Negative) Urine Nitrite (Negative) Urine Bilirubin (Negative) Urine Urobilinogen (<2.0) mg/dL Ur Leukocyte Esterase (Negative) Influenza Type A (PCR) (Not Detectd) Influenza Type B (PCR) (Not Detectd) RSV (PCR) (Not Detectd) SARS-CoV-2 (PCR) (Not Detectd) 10/14/23 Range/Units 12:42 WBC (3.8-10.6) k/uL RBC (3.80-5.40) m/uL Hgb (11.4-16.0) gm/dL Hct (34.0-46.0) % MCV (80.0-100.0) fL MCH (25.0-35.0) pg MCHC (31.0-37.0) g/dL RDW (11.5-15.5) % Plt Count (150-450) k/uL MPV Neutrophils % % Lymphocytes % % Monocytes % % Eosinophils % % Basophils % % Neutrophils # (1.3-7.7) k/uL Lymphocytes # (1.0-4.8) k/uL Monocytes # (0-1.0) k/uL Eosinophils # (0-0.7) k/uL Basophils # (0-0.2) k/uL PT (10.0-12.5) sec INR (<1.2) APTT (22.0-30.0) sec D-Dimer (<0.60) mg/L FEU Sodium (137-145) mmol/L Potassium (3.5-5.1) mmol/L Chloride (98-107) mmol/L Carbon Dioxide (22-30) mmol/L Anion Gap mmol/L BUN (7-17) mg/dL Creatinine (0.52-1.04) mg/dL Est GFR (CKD-EPI)AfAm (>60 ml/min/1.73 sqM) Est GFR (CKD-EPI)NonAf (>60 ml/min/1.73 sqM) Glucose (74-99) mg/dL Plasma Lactic Acid Ruben (0.7-2.0) mmol/L Calcium (8.4-10.2) mg/dL Total Bilirubin (0.2-1.3) mg/dL AST (14-36) U/L ALT (4-34) U/L Alkaline Phosphatase (38-126) U/L Troponin I (0.000-0.034) ng/mL Total Protein (6.3-8.2) g/dL Albumin (3.5-5.0) g/dL Urine Color Urine Appearance (Clear) Urine pH (5.0-8.0) Ur Specific Bruni (1.001-1.035) Urine Protein (Negative) Urine Glucose (UA) (Negative) Urine Ketones (Negative) Urine Blood (Negative) Urine Nitrite (Negative) Urine Bilirubin (Negative) Urine Urobilinogen (<2.0) mg/dL Ur Leukocyte Esterase (Negative) Influenza Type A (PCR) Not Detected (Not Detectd) Influenza Type B (PCR) Not Detected (Not Detectd) RSV (PCR) Not Detected (Not Detectd) SARS-CoV-2 (PCR) Not Detected (Not Detectd) Disposition Clinical Impression: Mild shortness of breath Disposition: HOME SELF-CARE Instructions (If sedation given, give patient instructions): Dyspnea (ED) Is patient prescribed a controlled substance at d/c from ED?: No Referrals: Estelle Butterfield DO [Primary Care Provider] - 1-2 days Time of Disposition: 15:01
[2023-10-14] MEDS: SODIUM CHLORIDE 0.9% 1,000 ML IV STA (12:36)
[2023-10-14] MEDS: droPERidol 5 MG/2 ML VIAL IVP ONE ×2 (12:37→13:39)
[2023-10-14 13:07] LABS: Basophils % (A) 0 %; Eosinophils # (A) 0.4 k/uL (0-0.7); Eosinophils % (A) 5 %; HCT 39.3 % (34.0-46.0); HGB 12.5 gm/dL (11.4-16.0); Lymphocytes # (A) 1.6 k/uL (1.0-4.8); Lymphocytes % (A) 19 %; MCH 29.4 pg (25.0-35.0); MCHC 31.9 g/dL (31.0-37.0); MCV 92.2 fL (80.0-100.0); Monocytes # (A) 0.7 k/uL (0-1.0); Monocytes % (A) 8 %; Neutrophils % (A) 67 %; Platelet Count 498 k/uL (150-450); RBC 4.26 m/uL (3.80-5.40); RDW 12.2 % (11.5-15.5); WBC 8.9 k/uL (3.8-10.6)
[2023-10-14] MEDS: ALBUTEROL NEBULIZED 2.5 MG/3 ML INHALATION STA (13:09)
[2023-10-14] MEDS: IPRATROPIUM 0.5 MG/2.5 ML NEBU INHALATION STA (13:09)
[2023-10-14 13:11] LABS: INR 0.9 (<1.2); Partial Thromboplastin Time 28.4 sec (22.0-30.0)
[2023-10-14 13:19] LABS: ALT 13 U/L (4-34); AST 19 U/L (14-36); African American GFR (CKD) >90 (>60 ml/min/1.73 sqM); Albumin 3.4 g/dL (3.5-5.0); Alkaline Phosphatase 116 U/L (38-126); Anion Gap 10 mmol/L; Blood Urea Nitrogen 7 mg/dL (7-17); Calcium 9.3 mg/dL (8.4-10.2); Carbon Dioxide 19 mmol/L (22-30); Chloride 114 mmol/L (98-107); Glucose 115 mg/dL (74-99); Non-African American GFR(CKD) 78 (>60 ml/min/1.73 sqM); Potassium 3.6 mmol/L (3.5-5.1); Sodium 143 mmol/L (137-145); Total Bilirubin 0.2 mg/dL (0.2-1.3); Total Protein 6.1 g/dL (6.3-8.2)
--- NOTE | 2023-10-14 13:38 | XR ---
EXAMINATION TYPE: XR chest 2V DATE OF EXAM: 10/14/2023 COMPARISON: 07/31/2023 TECHNIQUE: PA and lateral views submitted. HISTORY: Chest pain FINDINGS: The lungs are clear and there is no pneumothorax, pleural effusion, or focal pneumonia. Heart size normal and no overt failure. Osseous structures demonstrate hypertrophic and degenerative changes of the spine. Post surgical change overlying the cervical spine. Surgical clips in the upper abdomen. IMPRESSION: 1. No acute process.
[2023-10-14 13:55] VITALS: RESP 18
[2023-10-14 14:36] LABS: Appearance,Urine Clear (Clear); Bilirubin,Urine Negative (Negative); Blood,Urine Negative (Negative); Color,Urine Colorless; Glucose,Urine (UA) Negative (Negative); Ketones,Urine Negative (Negative); Leukocyte Esterase,Urine Negative (Negative); Nitrite,Urine Negative (Negative); PH, Urine 6.5 (5.0-8.0); Protein,Urine Negative (Negative); Specific Gravity,Urine 1.004 (1.001-1.035); Urobilinogen,Urine <2.0 mg/dL (<2.0)
[2023-10-14 15:10] VITALS: BP 130/77; PULSE 85; TEMP 98.5
== END 2023-10-14 15:06 | disposition home or self-care (01) ==
LOC: EC 12:03
DX: R06.02 Shortness of breath (principal); R00.0 Tachycardia, unspecified; J44.9 Chronic obstructive pulmonary disease, unspecified; F17.200 Nicotine dependence, unspecified, uncomplicated; Z88.6 Allergy status to analgesic agent; Z91.013 Allergy to seafood; Z88.5 Allergy status to narcotic agent; Z79.899 Other long term (current) drug therapy
CPT/HCPCS: 99285; 96374; 96376; 96361; 36415; 94640; 93005; 85379; 80053; 83605; 84484; 85025; 85610; 85730; 81003; 87040; 87636; 71046; J1790; 96375

== ENCOUNTER 2023-10-31 07:14 | Emergency (ER) | payer OTHER ==
--- NOTE | 2023-10-31 07:29 | ED ---
General Adult HPI - General Chief complaint: Abdominal Pain Stated complaint: Kidney Stones Time Seen by Provider: 10/31/23 07:15 Source: patient, RN notes reviewed, old records reviewed Mode of arrival: EMS - History of Present Illness Initial comments: This is a 53-year-old female who presents emergency department past medical history significant for kidney stones and anxiety. Patient states she woke up about 2 hours ago with right CVA tenderness that wraps around to her flank. Patient states is very indicative of the kidney stone she has had in the past. Patient states she is also extremely anxious which is worse than her baseline. Patient also states she is nauseous but has not vomited. Patient denies any diarrhea. Patient Nuys any fever or chills. Patient has any chest pain difficulty breathing shortness of breath. Patient denies symptoms getting worse with pushing on her abdomen. Patient states she does not believe she hurt her back. - Related Data Home Medications Medication Instructions Recorded Confirmed clonazePAM [KlonoPIN] 0.5 mg PO BID PRN 10/23/19 09/30/23 diphenhydrAMINE [Benadryl] 25 mg PO DAILY PRN 02/25/23 09/30/23 Methylphenidate HCl [Ritalin] 20 mg PO TID@0700,1300,1700 04/07/23 09/30/23 Prazosin [Minipress] 5 mg PO HS 04/07/23 09/30/23 hydrOXYzine pamoate [Vistaril] 50 mg PO TID PRN 04/07/23 09/30/23 Albuterol Inhaler [Ventolin Hfa 1 - 2 puff INHALATION RT-Q6H PRN 09/30/23 09/30/23 Inhaler] Gabapentin 800 mg PO TID 09/30/23 09/30/23 buPROPion XL [Wellbutrin XL] 150 mg PO DAILY 09/30/23 09/30/23 busPIRone HCL [Buspar] 30 mg PO BID 09/30/23 09/30/23 risperiDONE 2 mg PO BID 09/30/23 09/30/23 Previous Rx's Medication Instructions Recorded Nicotine Gum (Polacrilex) 2 mg BUCCAL Q2HR PRN 7 Days #48 03/02/23 [Nicorette] pieceofgum HYDROcodone/APAP 7.5-325MG [Andreas 1 tab PO Q6HR PRN 3 Days #12 tab 09/30/23 7.5-325] Magnesium Hydroxide [Milk of 400 mg PO DAILY PRN #60 ml 09/30/23 Magnesia] predniSONE [Deltasone] 20 mg PO BID #10 tab 09/30/23 Allergies Allergy/AdvReac Type Severity Reaction Status Date / Time ketorolac [From Toradol] Allergy Anaphylaxis Verified 10/31/23 07:17 shellfish derived Allergy Anaphylaxis Verified 10/31/23 07:17 tramadol [From Ultram] Allergy Anaphylaxis Verified 10/31/23 07:17 ibuprofen AdvReac HIVES Verified 10/31/23 07:17 Review of Systems ROS Statement: Those systems with pertinent positive or pertinent negative responses have been documented in the HPI. ROS Other: All systems not noted in ROS Statement are negative. Past Medical History Past Medical History: COPD, GERD/Reflux, Hypertension, Pneumonia Additional Past Medical History / Comment(s): chronic back pain, lumbar degenerative disc disease, insomnia, hx shingles, hiatal hernia, kidney stones. 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, migraines,; NECK PAIN , Rabies 09/17 Last Myocardial Infarction Date:: 08/27/2016 History of Any Multi-Drug Resistant Organisms: MRSA Date of last positivie culture/infection: 09/22/09 MDRO Source:: neck Past Surgical History: Appendectomy, Back Surgery, Section, Cholecystectomy, Orthopedic Surgery Additional Past Surgical History / Comment(s): Cervical spine fusion with insertion of a metal plate, EGD, colonoscopy, radiofrequency ablation, Past Anesthesia/Blood Transfusion Reactions: No Reported Reaction Additional Past Anesthesia/Blood Transfusion Reaction / Comment(s): CLAUSTROPHOBIA Past Psychological History: ADD/ADHD, Anxiety, Panic Disorder Smoking Status: Current every day smoker Past Alcohol Use History: None Reported Past Drug Use History: None Reported - Past Family History Father Family Medical History: Cancer Additional Family Medical History / Comment(s): Father at age 48 from lung cancer. Mother Family Medical History: Congestive Heart Failure (CHF), CVA/TIA Additional Family Medical History / Comment(s): Mother is alive at age 68. She has suffered from a CVA and has chronic back problems. Patient has 2 brothers and 4 sisters with no major medical problems. General Exam - General Exam Comments Initial Comments: GENERAL: Patient is well-developed and well-nourished. Patient is nontoxic and well- hydrated and is in mild distress. ENT: Neck is soft and supple. No significant lymphadenopathy is noted. Oropharynx is clear. Moist mucous membranes. Neck has full range of motion without eliciting any pain. EYES: The sclera were anicteric and conjunctiva were pink and moist. Extraocular movements were intact and pupils were equal round and reactive to light. Eyeli ds were unremarkable. PULMONARY: Unlabored respirations. Good breath sounds bilaterally. No audible rales rhonchi or wheezing was noted. CARDIOVASCULAR: There is a regular rate and rhythm without any murmurs gallops or rubs. ABDOMEN: Soft and nontender with normal bowel sounds. Patient has no reproducible tenderness on palpation SKIN: Skin is clear with no lesions or rashes and otherwise unremarkable. NEUROLOGIC: Patient is alert and oriented x3. Cranial nerves II through XII are grossly intact. Motor and sensory are also intact. Normal speech, volume and content. Symmetrical smile. MUSCULOSKELETAL: Normal extremities with adequate strength and full range of motion. Patient has no CVA tenderness LYMPHATICS: No significant lymphadenopathy is noted PSYCHIATRIC: Patient is very anxious Course Vital Signs 10/31/23 10/31/23 10/31/23 07:16 08:34 09:25 Temperature 98.6 F Pulse Rate 100 98 Respiratory 16 16 Rate Blood Pressure 128/100 145/112 149/104 O2 Sat by Pulse 97 95 Oximetry Medical Decision Making - Medical Decision Making Was pt. sent in by a medical professional or institution (, [facility], NURSE QUALITY, urgent care, hospital, or senior care...) When possible be specific @ -No Did you speak to anyone other than the patient for history (EMS, parent, family, police, friend...)? What history was obtained from this source @ -No Did you review nursing and triage notes (agree or disagree)? Why? @ -I reviewed and agree with nursing and triage notes Were old charts reviewed (outside hosp., previous admission, EMS record, old EKG, old radiological studies, urgent care reports/EKG's, senior care records)? Report findings @ -No old charts were reviewed Differential Diagnosis (chest pain, altered mental status, abdominal pain women, abdominal pain men, vaginal bleeding, weakness, fever, dyspnea, syncope, headache, dizziness, GI bleed, back pain, seizure, CVA, palpatations, mental health, musculoskeletal)? @ -Differential Abdominal Pain Women: Appendicitis, Cholecystitis, diverticulosis, ischemic bowel, pancreatitis, hepatitis, UTI, gastroenteritis, AAA, incarcerated hernia, bowel obstruction, constipation, inflammatory bowel, hepatitis, peptic ulcer disease, splenic infarction, perforated viscus, vulvitis, ovarian torsion, PID, kidney stone, placenta abruption, this is not meant to be an all-inclusive list EKG interpreted by me (3pts min.). @ -As above X-rays interpreted by me (1pt min.). @ -None done CT interpreted by me (1pt min.). @ -None done U/S interpreted by me (1pt. min.). @ -None done What testing was considered but not performed or refused? (CT, X-rays, U/S, labs)? Why? @ -None What meds were considered but not given or refused? Why? @ -None Did you discuss the management of the patient with other professionals ( professionals i.e. , PA, NURSE QUALITY, lab, RT, psych nurse, hospital social worker, labor/excavator, teacher, sheriff's officer, egg caser)? Give summary @ -No Was smoking cessation discussed for >3mins.? @ -No Was critical care preformed (if so, how long)? @ -No Were there social determinants of health that impacted care today? How? (Homelessness, low income, unemployed, alcoholism, drug addiction, transportation, low edu. Level, literacy, decrease access to med. care, group home, rehab)? @ -No Was there de-escalation of care discussed even if they declined (Discuss DNR or withdrawal of care, Hospice)? DNR status @ -No What co-morbidities impacted this encounter? (DM, HTN, Smoking, COPD, CAD, Cancer, CVA, ARF, Chemo, Hep., AIDS, mental health diagnosis, sleep apnea, morbid obesity)? @ -None Was patient admitted / discharged? Hospital course, mention meds given and route, prescriptions, significant lab abnormalities, going to OR and other pertinent info. @ -Patient received 1/2 mg Dilaudid and some medicine for anxiety. Went back in and reevaluated once her labs came back patient had no palpable abdominal pain o r flank pain. At this point in time patient will be following up with her medical care doctor Undiagnosed new problem with uncertain prognosis? @ -No Drug Therapy requiring intensive monitoring for toxicity (Heparin, Nitro, Insulin, Cardizem)? @ -No Were any procedures done? @ -No Diagnosis/symptom? @ -Abdominal pain Acute, or Chronic, or Acute on Chronic? @ -acute Uncomplicated (without systemic symptoms) or Complicated (systemic symptoms)? @ -Complicated Side effects of treatment? @ -No Exacerbation, Progression, or Severe Exacerbation? @ -No Poses a threat to life or bodily function? How? (Chest pain, [place], [place], pneumonia, PE, COPD, DKA, ARF, appy, cholecystitis, CVA, Diverticulitis, Homicidal, Suicidal, threat to staff... and all critical care pts) @ -No Diagnosis/symptom? @ -Anxiety Acute, or Chronic, or Acute on Chronic? @ -acute Uncomplicated (without systemic symptoms) or Complicated (systemic symptoms)? @ -Uncomplicated Side effects of treatment? @ -None Exacerbation, Progression, or Severe Exacerbation] @ -No Poses a threat to life or bodily function? @ -No - Lab Data Result diagrams: 10/31/23 07:35 10/31/23 07:35 Lab Results 10/31/23 10/31/23 10/31/23 Range/Units 07:35 07:35 08:34 WBC 10.9 H (3.8-10.6) k/uL RBC 4.91 (3.80-5.40) m/uL Hgb 14.2 (11.4-16.0) gm/dL Hct 44.9 (34.0-46.0) % MCV 91.4 (80.0-100.0) fL MCH 28.9 (25.0-35.0) pg MCHC 31.7 (31.0-37.0) g/dL RDW 13.1 (11.5-15.5) % Plt Count 402 (150-450) k/uL MPV 6.8 Neutrophils % 65 % Lymphocytes % 22 % Monocytes % 8 % Eosinophils % 3 % Basophils % 1 % Neutrophils # 7.1 (1.3-7.7) k/uL Lymphocytes # 2.4 (1.0-4.8) k/uL Monocytes # 0.8 (0-1.0) k/uL Eosinophils # 0.3 (0-0.7) k/uL Basophils # 0.1 (0-0.2) k/uL Sodium 141 (137-145) mmol/L Potassium 3.7 (3.5-5.1) mmol/L Chloride 106 (98-107) mmol/L Carbon Dioxide 25 (22-30) mmol/L Anion Gap 10 mmol/L BUN 11 (7-17) mg/dL Creatinine 0.96 (0.52-1.04) mg/dL Est GFR (CKD-EPI)AfAm 77 (>60 ml/min/1.73 sqM) Est GFR (CKD-EPI)NonAf 67 (>60 ml/min/1.73 sqM) Glucose 136 H (74-99) mg/dL Calcium 10.1 (8.4-10.2) mg/dL Total Bilirubin 0.4 (0.2-1.3) mg/dL AST 19 (14-36) U/L ALT 17 (4-34) U/L Alkaline Phosphatase 108 (38-126) U/L Total Protein 7.4 (6.3-8.2) g/dL Albumin 4.4 (3.5-5.0) g/dL Amylase 52 (30-110) U/L Lipase 49 (23-300) U/L Urine Color Yellow Urine Appearance Clear (Clear) Urine pH 6.0 (5.0-8.0) Ur Specific [place] 1.015 (1.001-1.035) Urine Protein Trace H (Negative) Urine Glucose (UA) Negative (Negative) Urine Ketones Negative (Negative) Urine Blood Small H (Negative) Urine Nitrite Negative (Negative) Urine Bilirubin Negative (Negative) Urine Urobilinogen <2.0 (<2.0) mg/dL Ur Leukocyte Esterase Trace H (Negative) Urine RBC 1 (0-5) /hpf Urine WBC 5 (0-5) /hpf Ur Squamous Epith Cells 5 H (0-4) /hpf Urine Bacteria Rare H (None) /hpf Hyaline Casts 1 (0-2) /lpf Urine Mucus Moderate H (None) /hpf Disposition Clinical Impression: Abdominal pain, Anxiety Disposition: HOME SELF-CARE Instructions (If sedation given, give patient instructions): Abdominal Pain (ED) Is patient prescribed a controlled substance at d/c from ED?: No Referrals: Estelle Butterfield DO [Primary Care Provider] - 1-2 days Time of Disposition: 09:36
[2023-10-31] MEDS: SODIUM CHLORIDE 0.9% 1,000 ML IV ONE (07:31)
[2023-10-31] MEDS: ONDANSETRON 4 MG/2 ML VIAL IVP STA (07:31)
[2023-10-31] MEDS: HYDROmorphone 0.5 MG/0.5 ML SYRINGE IVP STA (07:32)
[2023-10-31] MEDS: LORazepam 2 MG/ML INJ IV STA ×2 (07:32→09:45)
[2023-10-31 07:45] LABS: Basophils # (A) 0.1 k/uL (0-0.2); Basophils % (A) 1 %; Eosinophils # (A) 0.3 k/uL (0-0.7); Eosinophils % (A) 3 %; HCT 44.9 % (34.0-46.0); HGB 14.2 gm/dL (11.4-16.0); Lymphocytes # (A) 2.4 k/uL (1.0-4.8); Lymphocytes % (A) 22 %; MCH 28.9 pg (25.0-35.0); MCHC 31.7 g/dL (31.0-37.0); MCV 91.4 fL (80.0-100.0); Mean Platelet Volume 6.8; Monocytes # (A) 0.8 k/uL (0-1.0); Monocytes % (A) 8 %; Neutrophils # (A) 7.1 k/uL (1.3-7.7); Neutrophils % (A) 65 %; Platelet Count 402 k/uL (150-450); RBC 4.91 m/uL (3.80-5.40); RDW 13.1 % (11.5-15.5); WBC 10.9 k/uL (3.8-10.6)
[2023-10-31 07:49] VITALS: RESP 16; TEMP 98.6
[2023-10-31 07:55] LABS: ALT 17 U/L (4-34); AST 19 U/L (14-36); African American GFR (CKD) 77 (>60 ml/min/1.73 sqM); Albumin 4.4 g/dL (3.5-5.0); Alkaline Phosphatase 108 U/L (38-126); Amylase 52 U/L (30-110); Anion Gap 10 mmol/L; Blood Urea Nitrogen 11 mg/dL (7-17); Calcium 10.1 mg/dL (8.4-10.2); Carbon Dioxide 25 mmol/L (22-30); Chloride 106 mmol/L (98-107); Glucose 136 mg/dL (74-99); Lipase 49 U/L (23-300); Non-African American GFR(CKD) 67 (>60 ml/min/1.73 sqM); Potassium 3.7 mmol/L (3.5-5.1); Sodium 141 mmol/L (137-145); Total Bilirubin 0.4 mg/dL (0.2-1.3); Total Protein 7.4 g/dL (6.3-8.2)
--- NOTE | 2023-10-31 08:01 | XR ---
EXAMINATION TYPE: XR KUB DATE OF EXAM: 10/31/2023 COMPARISON: 04/27/2019 HISTORY: Pain TECHNIQUE: Single supine KUB image of the abdomen is obtained FINDINGS: Small bowel demonstrates no evidence for dilatation or air fluid levels. Gas and fecal material is seen in non-distended colon. No convincing evidence for pneumoperitoneum. No unusual calcifications. The lung bases are clear. The osseous structures are intact. IMPRESSION: 1. Overall nonobstructive bowel gas pattern.
[2023-10-31 08:51] LABS: Appearance,Urine Clear (Clear); Bacteria,Urine Rare /hpf; Bilirubin,Urine Negative (Negative); Blood,Urine Small (Negative); Color,Urine Yellow; Glucose,Urine (UA) Negative (Negative); Hyaline Casts,Urine 1 /lpf (0-2); Ketones,Urine Negative (Negative); Leukocyte Esterase,Urine Trace (Negative); Mucus,Urine Moderate /hpf; Nitrite,Urine Negative (Negative); Protein,Urine Trace (Negative); RBC,Urine 1 /hpf (0-5); Specific Gravity,Urine 1.015 (1.001-1.035); Squamous Epithelial Cell,Urine 5 /hpf (0-4); Urobilinogen,Urine <2.0 mg/dL (<2.0); WBC,Urine 5 /hpf (0-5)
[2023-10-31 09:48] VITALS: BP 149/104; PULSE 98
== END 2023-10-31 09:50 | disposition home or self-care (01) ==
LOC: EC 07:14
DX: R10.9 Unspecified abdominal pain (principal); F41.9 Anxiety disorder, unspecified; F17.200 Nicotine dependence, unspecified, uncomplicated; Z88.5 Allergy status to narcotic agent; Z88.6 Allergy status to analgesic agent; Z91.013 Allergy to seafood; Z90.49 Acquired absence of other specified parts of digestive tract
CPT/HCPCS: 36415; 80053; 82150; 83690; 85025; 81001; 74018; 99284; 96374; 96375 ×2; 96376; 96361; J2060; J2405; J1170

== ENCOUNTER 2023-11-02 09:21 | Emergency (ER) | payer OTHER ==
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
[2023-11-02 09:48] VITALS: BP 149/105; PULSE 110; RESP 18; TEMP 98.1
--- NOTE | 2023-11-02 10:08 | XR ---
EXAMINATION TYPE: XR pelvis AP view DATE OF EXAM: 11/02/2023 CLINICAL HISTORY: pain TECHNIQUE: Single view the pelvis is submitted. FINDINGS: No evidence for fracture, dislocation or bony lesion. Joint spaces are well-preserved. S I joints appear symmetric. IMPRESSION: 1. No acute fracture or dislocation seen. ICD 10 NO FRACTURE, INITIAL EVALUATION
--- NOTE | 2023-11-02 10:10 | XR ---
EXAMINATION TYPE: XR chest 1V portable DATE OF EXAM: 11/02/2023 COMPARISON: 10/14/2023 HISTORY: Pain TECHNIQUE: Single frontal view of the chest is obtained. FINDINGS: There is no focal air space opacity, pleural effusion, or pneumothorax seen. The cardiac silhouette size is within normal limits. The osseous structures are intact. Heart is enlarged. Post surgical change involving the cervical spine. Underlying COPD. IMPRESSION: No acute process.
[2023-11-02 10:42] LABS: Basophils % (A) 0 %; Eosinophils # (A) 0.2 k/uL (0-0.7); Eosinophils % (A) 2 %; HGB 13.6 gm/dL (11.4-16.0); Lymphocytes # (A) 1.5 k/uL (1.0-4.8); Lymphocytes % (A) 17 %; MCH 29.1 pg (25.0-35.0); MCHC 31.7 g/dL (31.0-37.0); MCV 91.8 fL (80.0-100.0); Mean Platelet Volume 6.9; Monocytes # (A) 0.7 k/uL (0-1.0); Monocytes % (A) 8 %; Neutrophils # (A) 6.2 k/uL (1.3-7.7); Neutrophils % (A) 72 %; Platelet Count 341 k/uL (150-450); RBC 4.68 m/uL (3.80-5.40); RDW 13.1 % (11.5-15.5); WBC 8.6 k/uL (3.8-10.6)
[2023-11-02 11:11] LABS: ALT 15 U/L (4-34); AST 17 U/L (14-36); African American GFR (CKD) 76 (>60 ml/min/1.73 sqM); Albumin 4.2 g/dL (3.5-5.0); Alcohol <10 mg/dL; Alkaline Phosphatase 116 U/L (38-126); Anion Gap 8 mmol/L; Blood Urea Nitrogen 12 mg/dL (7-17); Calcium 9.5 mg/dL (8.4-10.2); Carbon Dioxide 24 mmol/L (22-30); Chloride 110 mmol/L (98-107); Glucose 117 mg/dL (74-99); Non-African American GFR(CKD) 66 (>60 ml/min/1.73 sqM); Potassium 3.8 mmol/L (3.5-5.1); Sodium 142 mmol/L (137-145); Total Bilirubin 0.4 mg/dL (0.2-1.3); Total Protein 6.9 g/dL (6.3-8.2)
[2023-11-02 12:01] LABS: Amphetamine Screen,Urine Not Detected (NotDetected); Barbiturate Screen,Urine Not Detected (NotDetected); Benzodiazepines Screen,Urine Detected (NotDetected); Cocaine Screen,Urine Not Detected (NotDetected); Methadone Screen, Urine Not Detected (NotDetected); Opiate Screen,Urine Not Detected (NotDetected); Oxycodone Screen, Urine Not Detected (NotDetected); Phencyclidine Screen,Urine Not Detected (NotDetected); Tricyclic Antidepressant,Urine Not Detected (NotDetected); Urn Cannabinoid Scrn Detected (NotDetected)
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
== END 2023-11-02 12:30 | disposition home or self-care (01) ==
LOC: EC 09:21
DX: M54.9 Dorsalgia, unspecified (principal); M54.2 Cervicalgia; F17.200 Nicotine dependence, unspecified, uncomplicated; Z88.5 Allergy status to narcotic agent; Z88.6 Allergy status to analgesic agent; Z91.013 Allergy to seafood; Z90.49 Acquired absence of other specified parts of digestive tract; V89.2XXA Person injured in unspecified motor-vehicle accident, traffic, initial encounter; Y92.410 Unspecified street and highway as the place of occurrence of the external cause
CPT/HCPCS: 36415; 93005; 86900; 86901; 80053; 84484; 85025; 86850; 80306; 72170; 71045; 72125; 70450; 99285; G0480; 80320

== ENCOUNTER 2023-12-30 12:56 | Observation (INO) | payer OTHER ==
[2023-12-30 13:24] LABS: Basophils # (A) 0.1 k/uL (0-0.2); Basophils % (A) 1 %; Eosinophils # (A) 0.8 k/uL (0-0.7); Eosinophils % (A) 9 %; HGB 14.4 gm/dL (11.4-16.0); Lymphocytes % (A) 22 %; MCH 28.6 pg (25.0-35.0); MCHC 32.1 g/dL (31.0-37.0); MCV 89.2 fL (80.0-100.0); Monocytes # (A) 0.7 k/uL (0-1.0); Monocytes % (A) 7 %; Neutrophils # (A) 5.5 k/uL (1.3-7.7); Neutrophils % (A) 60 %; Platelet Count 392 k/uL (150-450); RBC 5.04 m/uL (3.80-5.40); RDW 13.6 % (11.5-15.5); WBC 9.2 k/uL (3.8-10.6)
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
[2023-12-30 13:34] LABS: INR 0.9 (<1.2); Partial Thromboplastin Time 26.7 sec (22.0-30.0); Prothrombin Time 10.1 sec (10.0-12.5)
[2023-12-30 13:52] LABS: ALT 15 U/L (4-34); AST 22 U/L (14-36); African American GFR (CKD) 78 (>60 ml/min/1.73 sqM); Albumin 4.1 g/dL (3.5-5.0); Alkaline Phosphatase 118 U/L (38-126); Anion Gap 9 mmol/L; Blood Urea Nitrogen 13 mg/dL (7-17); Calcium 9.3 mg/dL (8.4-10.2); Carbon Dioxide 21 mmol/L (22-30); Chloride 108 mmol/L (98-107); Glucose 111 mg/dL (74-99); Magnesium 1.7 mg/dL (1.6-2.3); Non-African American GFR(CKD) 68 (>60 ml/min/1.73 sqM); Potassium 4.4 mmol/L (3.5-5.1); Sodium 138 mmol/L (137-145); Total Bilirubin 0.6 mg/dL (0.2-1.3); Total Protein 6.6 g/dL (6.3-8.2)
--- NOTE | 2023-12-30 14:54 | ED ---
Chest Pain HPI - General Chief Complaint: Chest Pain Stated Complaint: Chest pain Time Seen by Provider: 12/30/23 14:16 Source: patient, RN notes reviewed, old records reviewed Mode of arrival: ambulatory Limitations: no limitations - History of Present Illness Initial Comments: This is a 53 year old female to the ED for evaluation of chest pain. Patient has history of psychiatric illness admit to significant anxiety, no shortness of breath but does admit to some sweating, symptoms began last night when she awoke from sleep MD Complaint: chest pain, other (Shortness of breath chest pain) -: hour(s) Onset: during rest, awoke with symptoms Pain Location: substernal Pain Radiation: none Severity: moderate Severity scale (1-10): 4 Quality: tightness Consistency: constant Improves With: nothing Worsens With: nothing Anginal Symptoms: diaphoresis, dyspnea, other Other Symptoms: palpitations Treatments Prior to Arrival: none - Related Data Home Medications Medication Instructions Recorded Confirmed clonazePAM [KlonoPIN] 0.5 mg PO BID PRN 10/23/19 09/30/23 diphenhydrAMINE [Benadryl] 25 mg PO DAILY PRN 02/25/23 09/30/23 Methylphenidate HCl [Ritalin] 20 mg PO TID@0700,1300,1700 04/07/23 09/30/23 Prazosin [Minipress] 5 mg PO HS 04/07/23 09/30/23 hydrOXYzine pamoate [Vistaril] 50 mg PO TID PRN 04/07/23 09/30/23 Albuterol Inhaler [Ventolin Hfa 1 - 2 puff INHALATION RT-Q6H PRN 09/30/23 09/30/23 Inhaler] Gabapentin 800 mg PO TID 09/30/23 09/30/23 buPROPion XL [Wellbutrin XL] 150 mg PO DAILY 09/30/23 09/30/23 busPIRone HCL [Buspar] 30 mg PO BID 09/30/23 09/30/23 risperiDONE 2 mg PO BID 09/30/23 09/30/23 Previous Rx's Medication Instructions Recorded Nicotine Gum (Polacrilex) 2 mg BUCCAL Q2HR PRN 7 Days #48 03/02/23 [Nicorette] pieceofgum HYDROcodone/APAP 7.5-325MG [[place] 1 tab PO Q6HR PRN 3 Days #12 tab 09/30/23 7.5-325] Magnesium Hydroxide [Milk of 400 mg PO DAILY PRN #60 ml 09/30/23 Magnesia] predniSONE [Deltasone] 20 mg PO BID #10 tab 09/30/23 Allergies Allergy/AdvReac Type Severity Reaction Status Date / Time ketorolac [From Toradol] Allergy Anaphylaxis Verified 10/31/23 07:17 shellfish derived Allergy Anaphylaxis Verified 10/31/23 07:17 tramadol [From Ultram] Allergy Anaphylaxis Verified 10/31/23 07:17 ibuprofen AdvReac HIVES Verified 10/31/23 07:17 Review of Systems ROS Statement: Those systems with pertinent positive or pertinent negative responses have been documented in the HPI. ROS Other: All systems not noted in ROS Statement are negative. Past Medical History Past Medical History: COPD, GERD/Reflux, Hypertension, Pneumonia Additional Past Medical History / Comment(s): chronic back pain, lumbar degenerative disc disease, insomnia, hx shingles, hiatal hernia, kidney stones. 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, migraines,; NECK PAIN , Rabies 09/17 Last Myocardial Infarction Date:: 08/27/2016 History of Any Multi-Drug Resistant Organisms: MRSA Date of last positivie culture/infection: 09/22/09 MDRO Source:: neck Past Surgical History: Appendectomy, Back Surgery, Section, Cholecystectomy, Orthopedic Surgery Additional Past Surgical History / Comment(s): Cervical spine fusion with insertion of a metal plate, EGD, colonoscopy, radiofrequency ablation, Past Anesthesia/Blood Transfusion Reactions: No Reported Reaction Additional Past Anesthesia/Blood Transfusion Reaction / Comment(s): CLAUSTROPHOBIA Past Psychological History: ADD/ADHD, Anxiety, Panic Disorder Smoking Status: Current every day smoker Past Alcohol Use History: None Reported Past Drug Use History: None Reported - Past Family History Father Family Medical History: Cancer Additional Family Medical History / Comment(s): Father at age 48 from lung cancer. Mother Family Medical History: Congestive Heart Failure (CHF), CVA/TIA Additional Family Medical History / Comment(s): Mother is alive at age 68. She has suffered from a CVA and has chronic back problems. Patient has 2 brothers and 4 sisters with no major medical problems. General Exam General appearance: alert, in no apparent distress, anxious Head exam: Present: atraumatic, normocephalic, normal inspection Eye exam: Present: normal appearance, PERRL, EOMI. Absent: scleral icterus, conjunctival injection, periorbital swelling ENT exam: Present: normal exam, mucous membranes moist Neck exam: Present: normal inspection. Absent: tenderness, meningismus, lymphadenopathy Respiratory exam: Present: normal lung sounds bilaterally. Absent: respiratory distress, wheezes, rales, rhonchi, stridor Cardiovascular Exam: Present: regular rate, normal rhythm, bradycardia, normal heart sounds. Absent: systolic murmur, diastolic murmur, rubs, gallop, clicks GI/Abdominal exam: Present: soft, normal bowel sounds. Absent: distended, tenderness, guarding, rebound, rigid Extremities exam: Present: normal inspection, full ROM, normal capillary refill. Absent: tenderness, pedal edema, joint swelling, calf tenderness Back exam: Present: normal inspection Neurological exam: Present: alert, oriented X3, CN II-XII intact Psychiatric exam: Present: normal affect, normal mood Skin exam: Present: warm, dry, intact, normal color. Absent: rash Course Vital Signs 12/30/23 12/30/23 12:58 14:46 Temperature 98.4 F 98.1 F Pulse Rate 84 80 Respiratory 18 18 Rate Blood Pressure 151/97 153/111 O2 Sat by Pulse 96 99 Oximetry - Reevaluation(s) Reevaluation #1: 12/30/23 16:23 Records reviewed Reevaluation #2: 12/30/23 16:24 Patient symptoms unchanged Reevaluation #3: 12/30/23 16:24 Results and questions answered Reevaluation #4: Was pt. sent in by a medical professional or institution (, PA, BEHAVIOR SPECIALIST, urgent care, hospital, or residential...) When possible be specific @ -no Did you speak to anyone other than the patient for history (EMS, parent, family, police, friend...)? What history was obtained from this source @ -no Did you review nursing and triage notes (agree or disagree)? Why? @ -agree Are old charts reviewed (outside hosp., previous admission, EMS record, old EKG, old radiological studies, urgent care reports/EKG's, residential records)? Report findings @ -yes Differential Diagnosis (chest pain, altered mental status, abdominal pain women, abdominal pain men, vaginal bleeding, weakness, fever, dyspnea, syncope, headache, dizziness, GI bleed, back pain, seizure, CVA, palpatations, mental health, musculoskeletal)? @ -prior EKG interpreted by me (3pts min.). @ -yes X-rays interpreted by me (1pt min.). @ -yes negative for acute disease CT interpreted by me (1pt min.). @ -no U/S interpreted by me (1pt. min.). @ -no What testing was considered but not performed or refused? (CT, X-rays, U/S, labs)? Why? @ -none What meds were considered but not given or refused? Why? @ -none Did you discuss the management of the patient with other professionals ( professionals i.e. , PA, BEHAVIOR SPECIALIST, lab, RT, psych nurse, social media job titles, munitions worker, teacher, staff command and control officer, pillowcase folder)? Give summary @ -no Was smoking cessation discussed for >3mins.? @ -no Were there social determinants of health that impacted care today? How? (Homelessness, low income, unemployed, alcoholism, drug addiction, transportation, low edu. Level, literacy, decrease access to med. care, long term, rehab)? @ -none Was there de-escalation of care discussed even if they declined (Discuss DNR or withdrawal of care, Hospice)? DNR status @ -no What co-morbidities impacted this encounter? (DM, HTN, Smoking, COPD, CAD, Cancer, CVA, ARF, Chemo, Hep., AIDS, mental health diagnosis, sleep apnea, morbid obesity)? @ -none Was patient admitted / discharged? Hospital course, mention meds given and route, prescriptions, significant lab abnormalities, going to OR and other pertinent info. @ - Was critical care preformed (if so, how long)? @ -no Undiagnosed new problem with uncertain prognosis? @ -no Drug Therapy requiring intensive monitoring for toxicity (Heparin, Nitro, Insulin, Cardizem)? @ -no Were any procedures done? @ -no Diagnosis/symptom? @ - Acute, or Chronic, or Acute on Chronic? @ -Acute Uncomplicated (without systemic symptoms) or Complicated (systemic symptoms)? @ -Complicated Side effects of treatment? @ -no Exacerbation, Progression, or Severe Exacerbation? @ -exacerbation Poses a threat to life or bodily function? How? (Chest pain, [place], [place], pneumonia, PE, COPD, DKA, ARF, appy, cholecystitis, CVA, Diverticulitis, Homicidal, Suicidal, threat to staff... and all critical care pts) @ -yes Reevaluation #5: Differential Chest Pain: Stable Angina, Unstable Angina, STEMI, NSTEMI Aortic Dissection, Pneumothorax, Musculoskeletal, Esophageal Spasm GERD, Cholecystitis, Pancreatitis, Zoster, this is not meant to be an all-inclusive list. - Consultations Consultation #1: Spoke with mason who agrees to admit this patient Chest Pain MDM - MDM 53 Female to the ER for evaluation of chest pain. Chest pain with significant bradycardia found here in the ER. Patient admitted for chest pain observation with persistent chest pain Disposition Clinical Impression: Anxiety, Chest pain, Bradycardia Disposition: ADMITTED IP TO THIS HOSP Condition: Undetermined Is patient prescribed a controlled substance at d/c from ED?: No Referrals: Estelle Butterfield DO [Primary Care Provider] - 1-2 days Time of Disposition: 15:00
[2023-12-30] MEDS: LORazepam 2 MG/ML INJ IV STA (15:07)
[2023-12-30] MEDS ORDERED: ONDANSETRON 4 MG/2 ML VIAL IVP PRN (16:18)
[2023-12-30] MEDS ORDERED: NALOXONE 0.4 MG/ML 1 ML VIAL IV PRN (16:18)
[2023-12-30] MEDS: MORPHINE SULFATE 4 MG/ML SYRINGE IV PRN (16:35)
[2023-12-30] MEDS: SODIUM CHLORIDE 0.9% 1,000 ML IV SCH (16:41)
[2023-12-30] MEDS ORDERED: ACETAMINOPHEN TAB 325 MG TAB PO PRN (17:16)
--- NOTE | 2023-12-30 17:20 | P.HPIM ---
History of Present Illness H&P Date: 12/30/23 Patient is a 53-year-old female with history of bipolar disorder, anxiety, COPD, ADHD presenting with chest pain. She claims that her chest pain started 5 AM in the morning. It woke her up. She claims that the pain feels like burning/heaviness, radiating to her back. She also has some diaphoresis as well as shortness of breath. Denies any palpitations. Has nausea, no vomiting. Den ies any fevers or chills. Denies any abdominal pain, urinary or bowel complaints. She denies ever having any cardiac history, her mother did have a history of stroke. She currently smokes half a pack a day and has been smoking for over 30 years. Denies any alcohol or illicit drug use. In the ED, temperature was 98.4, respiratory rate 18, blood pressure 151/97, saturating at 96% on room air, pulse 84. Chest x-ray independently interpreted, shows no acute opacities., Similar to prior. EKG not available. Per report EKG showed sinus rhythm. Per ED provider, patient has been having episodes of bradycardia as well. Laboratory workup showed unremarkable CBC, BMP showed a bicarb of 21, anion gap 9, creatinine 0.95, troponin negative, magnesium 1.7. She is being admitted for further workup of her chest pain. Cardiology consulted. Pertinent positives and negatives as discussed in HPI, a complete review of systems was performed and all other systems are negative. Patient seen and examined at bedside. Vital signs reviewed General: nontoxic, no distress, appears at stated age Derm: warm, dry Head: atraumatic, normocephalic, symmetric Eyes: EOMI, no lid lag, anicteric sclera, pupils equal round reactive to light ENT: Nose and ears atraumatic Neck: No thyromegaly, supple Mouth: no lip lesion, mucus membranes moist Cardiovascular: S1S2 reg, no murmur, no edema Lungs: clear to auscultation bilateral, no rhonchi, no rales, no wheeze, no accessory muscle use Abdominal: soft, nontender to palpation, no guarding, no appreciable organomegaly Ext: no gross muscle atrophy, muscle strength muscle strength 5 out of 5 in all 4 extremities, no contractures Neuro: CN II-XII grossly intact Psych: Alert, oriented, appropriate affect Assessment/Plan: Chest pain, rule out ACS Intermittent bradycardia -Given aspirin 325, continue aspirin 81 mg daily -Trend troponin -Telemetry monitoring -Cardiology consulted, pending recommendations -TSH ordered -Pain control with oral Tylenol as needed, IV morphine as needed, monitor for sedation -Zofran 4 mg IV every 8 hours as needed for nausea vomiting -Possible reflux disease, pepcid ordered Metabolic acidosis -Non-anion gap -Unclear etiology -Repeat BMP tomorrow Bipolar disorder ADHD -Reconcile medications once confirmed by pharmacy Nicotine dependence -Counseled regarding smoking cessation The patient is admitted with an anticipated less than 2 midnight stay as observation status for evaluation of chest pain. Surrogate decision-maker: Significant other CODE STATUS: Full code DVT prophylaxis: Subcu heparin Anticipated discharge date: Pending clinical course Anticipated discharge place: Pending clinical course A total of 55 minutes was spent on the care of this complex patient more than 50% of the time was spent in counseling and care coordination. Past Medical History Past Medical History: COPD, GERD/Reflux, Hypertension, Pneumonia Additional Past Medical History / Comment(s): chronic back pain, lumbar degenerative disc disease, insomnia, hx shingles, hiatal hernia, kidney stones. 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, migraines,; NECK PAIN , Rabies 09/17 Last Myocardial Infarction Date:: 08/27/2016 History of Any Multi-Drug Resistant Organisms: MRSA Date of last positivie culture/infection: 09/22/09 MDRO Source:: neck Past Surgical History: Appendectomy, Back Surgery, Section, Cholecystectomy, Orthopedic Surgery Additional Past Surgical History / Comment(s): Cervical spine fusion with in sertion of a metal plate, EGD, colonoscopy, radiofrequency ablation, Past Anesthesia/Blood Transfusion Reactions: No Reported Reaction Additional Past Anesthesia/Blood Transfusion Reaction / Comment(s): CLAUSTROPHOBIA Past Psychological History: ADD/ADHD, Anxiety, Panic Disorder Smoking Status: Current every day smoker Past Alcohol Use History: None Reported Past Drug Use History: None Reported - Past Family History Father Family Medical History: Cancer Additional Family Medical History / Comment(s): Father at age 48 from lung cancer. Mother Family Medical History: Congestive Heart Failure (CHF), CVA/TIA Additional Family Medical History / Comment(s): Mother is alive at age 68. She has suffered from a CVA and has chronic back problems. Patient has 2 brothers and 4 sisters with no major medical problems. Medications and Allergies Home Medications Medication Instructions Recorded Confirmed Type clonazePAM [KlonoPIN] 0.5 mg PO BID PRN 10/23/19 09/30/23 History diphenhydrAMINE [Benadryl] 25 mg PO DAILY PRN 02/25/23 09/30/23 History Nicotine Gum (Polacrilex) 2 mg BUCCAL Q2HR PRN 7 Days #48 03/02/23 09/30/23 Rx [Nicorette] pieceofgum Methylphenidate HCl [Ritalin] 20 mg PO TID@0700,1300,1700 04/07/23 09/30/23 History Prazosin [Minipress] 5 mg PO HS 04/07/23 09/30/23 History hydrOXYzine pamoate [Vistaril] 50 mg PO TID PRN 04/07/23 09/30/23 History Albuterol Inhaler [Ventolin Hfa 1 - 2 puff INHALATION RT-Q6H PRN 09/30/23 History Inhaler] Gabapentin 800 mg PO TID 09/30/23 09/30/23 History HYDROcodone/APAP 7.5-325MG [[place] 1 tab PO Q6HR PRN 3 Days #12 tab 09/30/23 Rx 7.5-325] Magnesium Hydroxide [Milk of 400 mg PO DAILY PRN #60 ml 09/30/23 Rx Magnesia] buPROPion XL [Wellbutrin XL] 150 mg PO DAILY 09/30/23 09/30/23 History busPIRone HCL [Buspar] 30 mg PO BID 09/30/23 09/30/23 History predniSONE [Deltasone] 20 mg PO BID #10 tab 09/30/23 Rx risperiDONE 2 mg PO BID 09/30/23 09/30/23 History Allergies Allergy/AdvReac Type Severity Reaction Status Date / Time ketorolac [From Toradol] Allergy Anaphylaxis Verified 10/31/23 07:17 shellfish derived Allergy Anaphylaxis Verified 10/31/23 07:17 tramadol [From Ultram] Allergy Anaphylaxis Verified 10/31/23 07:17 ibuprofen AdvReac HIVES Verified 10/31/23 07:17 Physical Exam Vitals: Vital Signs Temp Pulse Resp BP Pulse Ox 12/30/23 16:32 97.9 F 72 16 141/104 99 12/30/23 14:46 98.1 F 80 18 153/111 99 12/30/23 12:58 98.4 F 84 18 151/97 96 Intake and Output 12/30/23 12/30/23 12/30/23 06:59 14:59 22:59 Other: Weight 73.482 kg Results CBC & Chem 7: 12/30/23 13:04 12/30/23 13:04 Labs: Abnormal Lab Results - Last 24 Hours (Table) 12/30/23 12/30/23 Range/Units 13:04 13:04 Eosinophils # 0.8 H (0-0.7) k/uL Chloride 108 H (98-107) mmol/L Carbon Dioxide 21 L (22-30) mmol/L Glucose 111 H (74-99) mg/dL
[2023-12-30] MEDS: clonazePAM 0.5 MG TAB PO PRN (18:52)
[2023-12-30] MEDS: HYDROcodone/APAP 5-325MG 1 EACH TAB PO PRN (18:52)
[2023-12-30] MEDS: ASPIRIN 325 MG TAB PO STA (18:53)
[2023-12-30] MEDS: FAMOTIDINE 20 MG TAB PO STA (18:53)
[2023-12-30] MEDS: PANTOPRAZOLE 40 MG TABLET PO SCH (20:31)
[2023-12-30] MEDS: GABAPENTIN 400 MG CAP PO SCH (20:31)
[2023-12-30] MEDS: hydrOXYzine pamoate 25 MG CAP PO SCH (20:46)
[2023-12-30] MEDS: busPIRone HCl 10 MG TAB PO SCH (20:46)
[2023-12-30] MEDS: PRAZOSIN 1 MG CAP PO SCH (20:47)
[2023-12-30] MEDS: risperiDONE 2 MG TAB PO SCH (21:06)
[2023-12-31] MEDS: HEPARIN SODIUM,PORCINE 5,000 UNIT/ML 1 ML VIAL SQ SCH (02:02)
[2023-12-31 02:55] VITALS: RESP 16
[2023-12-31] MEDS: METHYLPHENIDATE HCL 10 MG TAB PO SCH (06:49)
[2023-12-31] MEDS ORDERED: DOBUTamine DRIP for NUC MED 500 MG in DEXTROSE/WATER 1 250ML.BAG IV PRN (08:30)
[2023-12-31] MEDS: FAMOTIDINE 20 MG TAB PO SCH (08:30)
[2023-12-31] MEDS: ASPIRIN 81 MG PO SCH (08:30)
--- NOTE | 2023-12-31 08:41 | P.CRDCN ---
History of Present Illness History of present illness: HISTORY OF PRESENT ILLNESS: This is a 53-year-old female with a past medical history significant for moderate coronary artery disease, anxiety, ADD, hypertension, and nicotine dependence. Patient follows in the office with Dr. Roy but has not been seen in the office since October 2020. We have been asked to see the patient in consultation for chest pain. Patient examined at the bedside. Patient presented to the hospital with a chief complaint of dizziness. Patient also reports that she has been having intermittent chest discomfort. She denies any shortness of breath. According to the ER the patient was having some intermittent bradycardia however no significant bradycardia or AV block has been noted on telemetry. An EKG from this morning is currently pending. DIAGNOSTICS: - Chest xray cardiomegaly and mild pulmonary vascular congestion - Laboratory data: WBC 9.2. Hemoglobin 14.4. Platelet count 392. Sodium 138. Potassium 4.4. BUN 13. Creatinine 0.95. Magnesium 1.7. Troponin negative x 3. TSH 3.030 - Current home cardiac medications include none. - Most recent echocardiogram obtained in September 2020 revealed ejection fraction 55%, mild MR, mild TR - Cardiac catheterization history: September 2020 revealing normal filling pressures. No gradient across aortic valve. Right dominant system with 35% mid RCA disease, 45% mid circumflex disease, and 45% stenosis of a good-sized third obtuse marginal branch of circumflex. LAD has 35% mid lesion. Medical manag ement was recommended. REVIEW OF SYSTEMS: At the time of my exam: CONSTITUTIONAL: Denies fever or chills. HEENT: Denies blurred vision, vision changes, or eye pain. Denies hemoptysis CARDIOVASCULAR: Denies chest pain. Denies orthopnea. Denies PND. Denies palpitations RESPIRATORY: Denies shortness of breath. GASTROINTESTINAL: Denies abdominal pain. Denies nausea or vomiting. HEMATOLOGIC: Denies bleeding disorders. GENITOURINARY: Denies any blood in urine. SKIN: Denies pruitis. Denies rash. PHYSICAL EXAM: VITAL SIGNS: Reviewed. GENERAL: Well-developed in no acute distress. HEENT: Head is normocephalic. Pupils are equal, round. Sclerae anicteric. Mucous membranes of the mouth are moist. Neck supple. No JVD or thyromegaly LUNGS: Respirations even and unlabored. Lungs essentially clear to auscultation bilaterally. HEART: Regular rate and rhythm. S1 and S2 heard. ABDOMEN: Soft. Nondistended. Nontender. EXTREMITIES: Normal range of motion. No clubbing or cyanosis. Peripheral pulse s intact. No lower extremity edema NEUROLOGIC: Awake and alert. Oriented x 3. ASSESSMENT: Chest pain, troponin negative x 3 Dizziness Moderate nonobstructive coronary artery disease, per cardiac catheterization 2020 Reported bradycardia, no significant bradycardia or AV block noted on telemetry, EKG pending Hypertension History of anxiety History of ADD Nicotine dependence PLAN: An acute coronary and has been ruled out Obtain EKG Obtain D-dimer Obtain 2D echo to assess cardiac structure and function Continue telemetry monitoring to assess for any bradycardia Plan was for dobutamine stress test today. However patient is very nauseous. We will plan for outpatient stress testing Further recommendations pending patient course Nurse practitioner note has been reviewed by physician. Signing provider agrees with the documented findings, assessment, and plan of care documented by MINIATURE SET DESIGNER as a scribe. Past Medical History Past Medical History: COPD, GERD/Reflux, Hypertension, Pneumonia Additional Past Medical History / Comment(s): chronic back pain, lumbar degenerative disc disease, insomnia, hx shingles, hiatal hernia, kidney stones. 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, migraines,; NECK PAIN , Rabies 09/17 Last Myocardial Infarction Date:: 08/27/2016 History of Any Multi-Drug Resistant Organisms: MRSA Date of last positivie culture/infection: 09/22/09 MDRO Source:: neck Past Surgical History: Appendectomy, Back Surgery, Section, Cholecystectomy, Orthopedic Surgery Additional Past Surgical History / Comment(s): Cervical spine fusion with insertion of a metal plate, EGD, colonoscopy, radiofrequency ablation, Past Anesthesia/Blood Transfusion Reactions: No Reported Reaction Additional Past Anesthesia/Blood Transfusion Reaction / Comment(s): CLAUSTROPHOBIA Past Psychological History: ADD/ADHD, Anxiety, Panic Disorder Smoking Status: Current every day smoker Past Alcohol Use History: None Reported Past Drug Use History: None Reported - Past Family History Father Family Medical History: Cancer Additional Family Medical History / Comment(s): Father at age 48 from lung cancer. Mother Family Medical History: Congestive Heart Failure (CHF), CVA/TIA Additional Family Medical History / Comment(s): Mother is alive at age 68. She has suffered from a CVA and has chronic back problems. Patient has 2 brothers and 4 sisters with no major medical problems. Medications and Allergies Home Medications Medication Instructions Recorded Confirmed Type clonazePAM [KlonoPIN] 0.5 mg PO BID PRN 10/23/19 12/30/23 History Methylphenidate HCl [Ritalin] 20 mg PO TID@07,12,17 04/07/23 12/30/23 History Prazosin [Minipress] 5 mg PO HS 04/07/23 12/30/23 History hydrOXYzine pamoate [Vistaril] 50 mg PO TID 04/07/23 12/30/23 History Albuterol Inhaler [Ventolin Hfa 1 - 2 puff INHALATION RT-Q6H PRN 09/30/23 12/30/23 History Inhaler] Gabapentin 800 mg PO TID 09/30/23 12/30/23 History busPIRone HCL [Buspar] 30 mg PO BID 09/30/23 12/30/23 History risperiDONE 2 mg PO BID 09/30/23 12/30/23 History Nabumetone [Relafen] 500 - 1,000 mg PO BID-W/MEALS PRN 12/30/23 12/30/23 History Pantoprazole [Protonix] 40 mg PO BID 12/30/23 12/30/23 History Phentermine HCl [Adipex-P] 37.5 mg PO DAILY 12/30/23 12/30/23 History buPROPion XL [Wellbutrin XL] 300 mg PO DAILY 12/30/23 12/30/23 History predniSONE [Deltasone] 20 mg PO DIRECTED 12/30/23 12/30/23 History Allergies Allergy/AdvReac Type Severity Reaction Status Date / Time ibuprofen Allergy Anaphylaxis Verified 12/30/23 17:21 ketorolac [From Toradol] Allergy Anaphylaxis Verified 12/30/23 17:21 shellfish derived Allergy Anaphylaxis Verified 12/30/23 17:21 tramadol [From Ultram] Allergy Anaphylaxis Verified 12/30/23 17:21 Physical Exam Vitals: Vital Signs Temp Pulse Pulse Resp BP BP Pulse Ox 12/31/23 07:00 97.4 F L 57 L 16 111/74 99 12/31/23 02:00 98.0 F 76 16 107/77 97 12/30/23 21:51 90 18 132/89 99 12/30/23 18:46 98.7 F 86 16 156/105 99 12/30/23 16:32 97.9 F 72 16 141/104 99 12/30/23 14:46 98.1 F 80 18 153/111 99 12/30/23 12:58 98.4 F 84 18 151/97 96 Intake and Output 12/30/23 12/31/23 12/31/23 22:59 06:59 14:59 Other: # Voids 2 Results 12/30/23 13:04 12/31/23 05:45 Cardiac Enzymes 12/30/23 12/30/23 12/30/23 Range/Units 13:04 13:04 17:26 AST 22 (14-36) U/L Troponin I <0.012 <0.012 (0.000-0.034) ng/mL 12/30/23 Range/Units 20:52 AST (14-36) U/L Troponin I <0.012 (0.000-0.034) ng/mL Coagulation 12/30/23 Range/Units 13:04 PT 10.1 (10.0-12.5) sec APTT 26.7 (22.0-30.0) sec CBC 12/30/23 Range/Units 13:04 WBC 9.2 (3.8-10.6) k/uL RBC 5.04 (3.80-5.40) m/uL Hgb 14.4 (11.4-16.0) gm/dL Hct 45.0 (34.0-46.0) % Plt Count 392 (150-450) k/uL Comprehensive Metabolic Panel 12/30/23 Range/Units 13:04 Sodium 138 (137-145) mmol/L Potassium 4.4 (3.5-5.1) mmol/L Chloride 108 H (98-107) mmol/L Carbon Dioxide 21 L (22-30) mmol/L BUN 13 (7-17) mg/dL Creatinine 0.95 (0.52-1.04) mg/dL Glucose 111 H (74-99) mg/dL Calcium 9.3 (8.4-10.2) mg/dL AST 22 (14-36) U/L ALT 15 (4-34) U/L Alkaline Phosphatase 118 (38-126) U/L Total Protein 6.6 (6.3-8.2) g/dL Albumin 4.1 (3.5-5.0) g/dL Current Medications Generic Name Dose Route Start Last Admin Trade Name Freq PRN Reason Stop Dose Admin Acetaminophen 650 mg 12/30/23 17:16 Acetaminophen Tab 325 Mg Tab PO Q6HR PRN Fever and/ or Pain Hydrocodone Bitart/Acetaminophen 1 each 12/30/23 18:39 12/31/23 00:00 Hydrocodone/Apap 5-325mg 1 Each Tab PO 1 each Q6HR PRN Administration Pain Aspirin 81 mg 12/31/23 09:00 Aspirin 81 Mg PO DAILY YUSRA Bupropion HCl 300 mg 12/31/23 09:00 Bupropion Xl 300 Mg Tab.Er.24h PO DAILY YUSRA Buspirone HCl 30 mg 12/30/23 21:00 12/30/23 20:46 Buspirone Hcl 10 Mg Tab PO 30 mg BID YUSRA Administration Clonazepam 0.5 mg 12/30/23 18:38 12/30/23 20:30 Clonazepam 0.5 Mg Tab PO 0.5 mg BID PRN Administration Anxiety Famotidine 20 mg 12/31/23 09:00 Famotidine 20 Mg Tab PO DAILY YUSRA Gabapentin 800 mg 12/30/23 22:00 12/30/23 20:31 Gabapentin 400 Mg Cap PO 800 mg TID YUSRA Administration Heparin Sodium (Porcine) 5,000 unit 12/31/23 00:00 12/31/23 02:02 Heparin Sodium,Porcine 5,000 Unit/Ml 1 Ml Vial SQ Not Given Q8HR YUSRA Hydroxyzine Pamoate 50 mg 12/30/23 22:00 12/30/23 20:46 Hydroxyzine Pamoate 25 Mg Cap PO 50 mg TID YUSRA Administration Dobutamine HCl/Dextrose 500 mg 250 mls @ 22.045 mls/hr 12/31/23 08:30 / IV Solution IV 12/31/23 08:31 .[id number] PRN Per Protocol Protocol 10 MCG/KG/MIN Methylphenidate HCl 20 mg 12/31/23 07:00 12/31/23 06:49 Methylphenidate Hcl 10 Mg Tab PO 20 mg TID@07,12,17 YUSRA Administration Morphine Sulfate 4 mg 12/30/23 16:18 12/31/23 06:49 Morphine Sulfate 4 Mg/Ml Syringe IV 4 mg Q4HR PRN Administration Severe Pain (Scale 7 to 10) Naloxone HCl 0.2 mg 12/30/23 16:18 Naloxone 0.4 Mg/Ml 1 Ml Vial IV Q2M PRN Opioid Reversal Patient's Own ( 37.5 mg 12/31/23 09:00 Phentermine Hcl [ PO Adipex-P] 37.5 Mg DAILY YUSRA Tablet) Ondansetron HCl 4 mg 12/30/23 16:18 Ondansetron 4 Mg/2 Ml Vial IVP Q8HR PRN Nausea And Vomiting Pantoprazole Sodium 40 mg 12/30/23 21:00 12/30/23 20:31 Pantoprazole 40 Mg Tablet PO 40 mg BID YUSRA Administration Prazosin HCl 5 mg 12/30/23 21:00 12/30/23 20:47 Prazosin 1 Mg Cap PO 5 mg HS YUSRA Administration Risperidone 2 mg 12/30/23 21:00 12/30/23 21:06 Risperidone 2 Mg Tab PO 2 mg BID YUSRA Administration Intake and Output 12/30/23 12/31/23 12/31/23 22:59 06:59 14:59 Other: # Voids 2 12/30/23 13:04 12/30/23 13:04
[2023-12-31] MEDS: PATIENT'S OWN (Phentermine Hcl [Adipex-P] 37.5 MG Tablet) PO SCH (09:00)
[2023-12-31 09:27] LABS: Blood Urea Nitrogen 16.2 mg/dL (9.0-27.0); Chloride 106 mmol/L (96-109); Chol/HDL Ratio 4.18 Ratio; Glucose 91 mg/dL (70-110); LDL Cholesterol,Calculated 136.7 mg/dL (0.0-131.0); Potassium 4.6 mmol/L (3.5-5.5); Sodium 141 mmol/L (135-145)
[2023-12-31] MEDS: buPROPion XL 300 MG TAB.ER.24H PO SCH (10:01)
[2023-12-31 15:21] VITALS: BP 101/71; PULSE 84; TEMP 98.6
--- NOTE | 2023-12-31 17:25 | CA ---
Transthoracic Echo Report Name: Isabell Winston Age: 53 Gender: F : 1970 Exam Date: 12/31/2023 10:18 Exam Location: [facility] Ht (in): 61 Wt (lb): 162 Ordering Physician: Guy Dunne MD ([id number]) Attending/Referring Phys: Vibha ANGEL Social Services Manager Angie Traore RDCS Procedure CPT: Indications: Chest Pain Cardiac Hx: Technical Quality: Fair Contrast 1: Total Dose (mL): Contrast 2: Total Dose (mL): MEASUREMENTS (Male / Female) Normal Values 2D ECHO LV Diastolic Diameter PLAX 4.0 cm 4.2 - 5.9 / 3.9 - 5.3 cm LV Systolic Diameter PLAX 2.3 cm IVS Diastolic Thickness 1.3 cm 0.6 - 1.0 / 0.6 - 0.9 cm LVPW Diastolic Thickness 1.3 cm 0.6 - 1.0 / 0.6 - 0.9 cm LV Relative Wall Thickness 0.7 RV Internal Dim ED PLAX 3.1 cm LA Volume 18.3 cm??? 18 - 58 / 22 - 52 cm??? LA Volume Index 10.1 cm???/m??? 16 - 28 cm???/m??? M-MODE Aortic Root Diameter MM 3.3 cm LA Systolic Diameter MM 3.4 cm LA Ao Ratio MM 1.0 AV Cusp Separation MM 2.1 cm DOPPLER AV Peak Velocity 105.0 cm/s AV Peak Gradient 4.4 mmHg AV Mean Velocity 76.8 cm/s AV Mean Gradient 2.5 mmHg AV Velocity Time Integral 19.9 cm LVOT Peak Velocity 73.6 cm/s LVOT Peak Gradient 2.2 mmHg LVOT Velocity Time Integral 14.8 cm MV Area PHT 3.8 cm??? Mitral E Point Velocity 60.9 cm/s Mitral A Point Velocity 68.3 cm/s Mitral E to A Ratio 0.9 MV Deceleration Time 200.1 ms MV E' Velocity 6.6 cm/s Mitral E to MV E' Ratio 9.3 FINDINGS Left Ventricle Moderately increased left ventricular wall thickness. Left ventricular cavity size normal. Normal left ventricular systolic function with no obvious regional wall motion abnormalities. Left ventricular ejection fraction is estimated at 55-60 %. Grade 1 diastolic dysfunction. Right Ventricle Normal right ventricular size and function. Right Atrium Normal right atrial size. Left Atrium Normal left atrial size. Mitral Valve Structurally normal mitral valve. Mild mitral regurgitation. Aortic Valve Trileaflet aortic valve. No aortic valve stenosis or regurgitation. Tricuspid Valve Structurally normal tricuspid valve. Mild tricuspid regurgitation. Pulmonic Valve Structurally normal pulmonic valve. Trace pulmonic regurgitation. Pericardium No pericardial effusion. Prominent epicardial fat. Aorta Normal size aortic root and proximal ascending aorta. CONCLUSIONS Normal LV function Mild mitral regurgitation Previewed by: Dr. Guy Dunne MD (Electronically Signed) Final Date: 31 December 2023 17:24
--- NOTE | 2024-01-03 05:48 | P.DS ---
Providers Date of admission: 12/30/23 16:21 Expected date of discharge: 12/31/23 Attending physician: Mookie Cohen Consults: 12/30/23 16:18 Consult Physician Routine Consulting Provider: Pramod Beatty Consult Reason/Comments: cp,bradycardia Do you want consulting provider notified?: Yes Primary care physician: Estelle Butterfield Hospital Course: Final diagnosis Chest pain, ruled out ACS Intermittent bradycardia Possible reflux disease Metabolic acidosis, unclear etiology, improved History of bipolar disorder ADHD history Continued ongoing nicotine dependence Obesity with a body mass index of 30.6 GI prophylaxis DVT prophylaxis Full code Discharge disposition Patient is being discharged in a stable condition with guarded prognosis to home. Patient will follow-up with in the outpatient setting upon discharge. Patient is to continue with current medications and outpatient follow-up with cardiology for outpatient stress testing as scheduled. Total time taken is greater than 35 minutes. Hospital course This is a 53-year-old female who was recently admitted with chest pain, ACS ruled out with intermittent episodes of bradycardia although improved. Patient with midsternal chest pressure that worsened with inspiration and concerns of musculoskeletal or gastroesophageal reflux in nature. Attempted stress testing although patient became nauseated and stress testing was canceled cardiology for outpatient follow-up for stress testing in the outpatient setting. Please refer to other consultation notes for further HPI. Currently no reports of chest pain, shortness of breath, or palpitations. Patient is afebrile. No reports of nausea or vomiting and patient is tolerating diet. Patient will be discharged home today. Guarded prognosis and high risk for readmissions Physical exam: Gen: This is a 53-year-old female who is awake, alert and oriented x 3, well- developed, well-nourished, obese HEENT: Head is atraumatic, normocephalic. Pupils equal, round. Sclerae is anicteric. NECK: Supple. No JVD. No lymphadenopathy. No thyromegaly. LUNGS: Clear to auscultation. No wheezes or rhonchi. No intercostal retractions. HEART: Regular rate and rhythm. No murmur. ABDOMEN: Soft. Obese. Bowel sounds are present. No masses. No tenderness. EXTREMITIES: No pedal edema. No calf tenderness. NEUROLOGICAL: Patient is awake, alert and oriented x3. Cranial nerves 2 through 12 are grossly intact. Please refer to medication reconciliation sheet for a list of medications. The impression and plan of care has been dictated by Carmel Talbot, Nurse Practitioner as directed. Dr. Nigel MD I have performed a history and examination and MDM of this patient, discussed the same with the dictator, and agree with the dictator's assessment and plan as written ,documented as a scribe. Based on total visit time, I have performed more than 50% of the visit. Patient Condition at Discharge: Stable Plan - Discharge Summary New Discharge Prescriptions: New Aspirin 81 mg PO DAILY #30 tab Acetaminophen Tab [Tylenol] 650 mg PO Q6HR PRN tab PRN Reason: Fever And/ Or Pain Continue clonazePAM [KlonoPIN] 0.5 mg PO BID PRN PRN Reason: Anxiety Methylphenidate HCl [Ritalin] 20 mg PO TID@,, Prazosin [Minipress] 5 mg PO HS hydrOXYzine pamoate [Vistaril] 50 mg PO TID Gabapentin 800 mg PO TID Albuterol Inhaler [Ventolin Hfa Inhaler] 1 - 2 puff INHALATION RT-Q6H PRN PRN Reason: Shortness Of Breath risperiDONE 2 mg PO BID Phentermine HCl [Adipex-P] 37.5 mg PO DAILY Nabumetone [Relafen] 500 - 1,000 mg PO BID-W/MEALS PRN PRN Reason: pain, swelling busPIRone HCL [Buspar] 30 mg PO BID Pantoprazole [Protonix] 40 mg PO BID buPROPion XL [Wellbutrin XL] 300 mg PO DAILY Discontinued predniSONE [Deltasone] 20 mg PO DIRECTED Discharge Medication List clonazePAM [KlonoPIN] 0.5 mg PO BID PRN 10/23/19 [History] Methylphenidate HCl [Ritalin] 20 mg PO TID@,,04/07/23 [History] Prazosin [Minipress] 5 mg PO HS 04/07/23 [History] hydrOXYzine pamoate [Vistaril] 50 mg PO TID 04/07/23 [History] Albuterol Inhaler [Ventolin Hfa Inhaler] 1 - 2 puff INHALATION RT-Q6H PRN 09/30/23 [History] Gabapentin 800 mg PO TID 09/30/23 [History] busPIRone HCL [Buspar] 30 mg PO BID 09/30/23 [History] risperiDONE 2 mg PO BID 09/30/23 [History] Nabumetone [Relafen] 500 - 1,000 mg PO BID-W/MEALS PRN 12/30/23 [History] Pantoprazole [Protonix] 40 mg PO BID 12/30/23 [History] Phentermine HCl [Adipex-P] 37.5 mg PO DAILY 12/30/23 [History] buPROPion XL [Wellbutrin XL] 300 mg PO DAILY 12/30/23 [History] Acetaminophen Tab [Tylenol] 650 mg PO Q6HR PRN tab 12/31/23 [Rx] Aspirin 81 mg PO DAILY #30 tab 12/31/23 [Rx] Follow up Appointment(s)/Referral(s): Estelle Butterfield DO [Primary Care Provider] - 1-2 days Guy Dunne MD [STAFF PHYSICIAN] - 01/07/24 11:00 am Patient Instructions/Handouts: Chest Pain (DC), Anxiety (GEN) Activity/Diet/Wound Care/Special Instructions: Activity limited until follow-up Follow-up with primary care provider on discharge Follow-up with cardiology outpatient to discuss outpatient stress testing Continue heart healthy diet Discharge Disposition: HOME SELF-CARE
== END 2023-12-31 15:13 | disposition home or self-care (01) ==
LOC: EC 12:56 → 6NMEDSUR 16:21
PROVIDERS: ADMIT Hospitalist; ATTEND Hospitalist
DX: R07.89 Other chest pain (principal); E87.20 Acidosis, unspecified; J44.9 Chronic obstructive pulmonary disease, unspecified; I25.10 Atherosclerotic heart disease of native coronary artery without angina pectoris; I11.9 Hypertensive heart disease without heart failure; F31.9 Bipolar disorder, unspecified; F90.9 Attention-deficit hyperactivity disorder, unspecified type; F41.9 Anxiety disorder, unspecified; R00.1 Bradycardia, unspecified; F17.210 Nicotine dependence, cigarettes, uncomplicated; R00.2 Palpitations; E66.9 Obesity, unspecified; Z68.30 Body mass index [BMI] 30.0-30.9, adult; Z79.82 Long term (current) use of aspirin; Z79.52 Long term (current) use of systemic steroids; Z79.899 Other long term (current) drug therapy; Z88.6 Allergy status to analgesic agent; Z88.5 Allergy status to narcotic agent; Z91.013 Allergy to seafood; Z71.6 Tobacco abuse counseling
CPT/HCPCS: 96376 ×4; 96372; 96374; 96375; 99285; 36415; 93005; 93306; 85379; 80061; 80053; 80048; 84443; 83735; 84484; 85025; 85610; 85730; 71046; G0378 ×2; J2060; J2270 ×2; J1644

== ENCOUNTER 2024-04-03 17:23 | Observation (INO) | payer OTHER ==
--- NOTE | 2024-04-03 18:15 | ED ---
General Adult HPI - General Chief complaint: Chest Pain Stated complaint: Chest pain, EUN Time Seen by Provider: 04/03/24 17:42 Source: patient, RN notes reviewed Mode of arrival: ambulatory Limitations: no limitations - History of Present Illness Initial comments: Patient is a 54-year-old female presents the emergency department with chest and abdominal discomfort. Onset of symptoms was yesterday. Patient feels her abdomen is distended. Patient states she had this once previously however unclear why. Patient states it does make her feel short of breath. Patient has nausea without vomiting. No constipation or diarrhea. - Related Data Home Medications Medication Instructions Recorded Confirmed clonazePAM [KlonoPIN] 0.5 mg PO BID PRN 10/23/19 04/03/24 Methylphenidate HCl [Ritalin] 20 mg PO TID 04/07/23 04/03/24 Prazosin [Minipress] 5 mg PO HS 04/07/23 04/03/24 hydrOXYzine pamoate [Vistaril] 50 mg PO TID PRN 04/07/23 04/03/24 Albuterol Inhaler [Ventolin Hfa 2 puff INHALATION RT-QID PRN 09/30/23 04/03/24 Inhaler] Gabapentin 800 mg PO TID 09/30/23 04/03/24 busPIRone HCL [Buspar] 30 mg PO BID 09/30/23 04/03/24 risperiDONE 2 mg PO BID 09/30/23 04/03/24 Pantoprazole [Protonix] 40 mg PO BID 12/30/23 04/03/24 Phentermine HCl [Adipex-P] 37.5 mg PO DAILY 12/30/23 04/03/24 buPROPion XL [Wellbutrin XL] 300 mg PO DAILY 12/30/23 04/03/24 Fluticasone Propion/Salmeterol 1 puff PO RT-BID 04/03/24 04/03/24 [Advair 100-50 Diskus] Mirtazapine 7.5 mg PO HS 04/03/24 04/03/24 Allergies Allergy/AdvReac Type Severity Reaction Status Date / Time ibuprofen Allergy Anaphylaxis Verified 04/03/24 20:06 ketorolac [From Toradol] Allergy Anaphylaxis Verified 04/03/24 20:06 shellfish derived Allergy Anaphylaxis Verified 04/03/24 20:06 tramadol [From Ultram] Allergy Anaphylaxis Verified 04/03/24 20:06 Review of Systems ROS Statement: Those systems with pertinent positive or pertinent negative responses have been documented in the HPI. ROS Other: All systems not noted in ROS Statement are negative. Constitutional: Denies: fever Eyes: Denies: eye pain ENT: Denies: ear pain Respiratory: Reports: as per HPI, dyspnea Cardiovascular: Reports: as per HPI, chest pain Gastrointestinal: Reports: as per HPI, abdominal pain, nausea. Denies: vomiting, diarrhea, constipation Musculoskeletal: Denies: back pain Past Medical History Past Medical History: COPD, GERD/Reflux, Hypertension, Pneumonia Additional Past Medical History / Comment(s): chronic back pain, lumbar degenerative disc disease, insomnia, hx shingles, hiatal hernia, kidney stones. 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, migraines,; NECK PAIN , Rabies 09/17 Last Myocardial Infarction Date:: 08/27/2016 History of Any Multi-Drug Resistant Organisms: MRSA Date of last positivie culture/infection: 09/22/09 MDRO Source:: neck Past Surgical History: Appendectomy, Back Surgery, Section, Cholecystectomy, Orthopedic Surgery Additional Past Surgical History / Comment(s): Cervical spine fusion with insertion of a metal plate, EGD, colonoscopy, radiofrequency ablation, Past Anesthesia/Blood Transfusion Reactions: No Reported Reaction Additional Past Anesthesia/Blood Transfusion Reaction / Comment(s): CLAUSTROPHOBIA Past Psychological History: ADD/ADHD, Anxiety, Panic Disorder Smoking Status: Current every day smoker Past Alcohol Use History: None Reported Past Drug Use History: None Reported - Past Family History Father Family Medical History: Cancer Additional Family Medical History / Comment(s): Father at age 48 from lung cancer. Mother Family Medical History: Congestive Heart Failure (CHF), CVA/TIA Additional Family Medical History / Comment(s): Mother is alive at age 68. She has suffered from a CVA and has chronic back problems. Patient has 2 brothers and 4 sisters with no major medical problems. General Exam Limitations: no limitations General appearance: alert, in no apparent distress Head exam: Present: normocephalic Eye exam: Present: normal appearance Neck exam: Present: normal inspection Respiratory exam: Present: normal lung sounds bilaterally Cardiovascular Exam: Present: tachycardia, normal heart sounds Expanded Peripheral pulses: 2+: Radial (R), Radial (L), Dorsalis Pedis (R), Dorsalis Pedis (L) GI/Abdominal exam: Present: soft, distended, tenderness (Mild to moderate diffuse tenderness), diminished bowel sounds. Absent: pulsatile mass Extremities exam: Present: normal inspection. Absent: pedal edema, calf tenderness Neurological exam: Present: alert Psychiatric exam: Present: normal affect, normal mood Skin exam: Present: normal color Course Vital Signs 04/03/24 04/03/24 17:24 17:27 Temperature 98.9 F Pulse Rate 114 H Respiratory 22 24 Rate Blood Pressure 132/89 O2 Sat by Pulse 97 Oximetry EKG Findings - EKG Results: EKG: interpreted by ERMD (Indeterminate. Inferior Q waves. Nonspecific T waves), sinus rhythm EKG shows: tachycardia Medical Decision Making - Medical Decision Making MDM back was pt. sent in by a medical professional or institution (, PA, SENIOR SALES REPRESENTATIVE, urgent care, hospital, or senior care...) When possible be specific @ -No Did you speak to anyone other than the patient for history (EMS, parent, family, police, friend...)? What history was obtained from this source @ -No Did you review nursing and triage notes (agree or disagree)? Why? @ -I reviewed and agree with nursing and triage notes Were old charts reviewed (outside hosp., previous admission, EMS record, old EKG, old radiological studies, urgent care reports/EKG's, senior care records)? Report findings @ -Previous admission reviewed Differential Diagnosis (chest pain, altered mental status, abdominal pain women, abdominal pain men, vaginal bleeding, weakness, fever, dyspnea, syncope, headache, dizziness, GI bleed, back pain, seizure, CVA, palpatations, mental health, musculoskeletal)? @ -Differential Chest Pain: Stable Angina, Unstable Angina, STEMI, NSTEMI Aortic Dissection, Pneumothorax, Musculoskeletal, Esophageal Spasm GERD, Cholecystitis, Pancreatitis, Zoster, this is not meant to be an all-inclusive list. Differential Dyspnea: Coronary syndrome, arrhythmia, tamponade, asthma, COPD, pulmonary embolism, pneumonia, pneumothorax, pulmonary effusion, anaphylaxis, diabetic ketoacidosis, flailed chest, pulmonary contusion, diaphragmatic rupture, anemia, neuromuscular, this is not meant to be an all-inclusive list. Differential Abdominal Pain Women: Appendicitis, Cholecystitis, diverticulosis, ischemic bowel, pancreatitis, hepatitis, UTI, gastroenteritis, AAA, incarcerated hernia, bowel obstruction, constipation, inflammatory bowel, hepatitis, peptic ulcer disease, splenic infarction, perforated viscus, vulvitis, ovarian torsion, PID, kidney stone, placenta abruption, this is not meant to be an all-inclusive list EKG interpreted by me (3pts min.). @ -As above X-rays interpreted by me (1pt min.). @ -None done CT interpreted by me (1pt min.). @ -CT scan abdomen pelvis without acute abnormality. Chest without evidence of pulmonary embolism U/S interpreted by me (1pt. min.). @ -None done What testing was considered but not performed or refused? (CT, X-rays, U/S, labs)? Why? @ -None What meds were considered but not given or refused? Why? @ -None Did you discuss the management of the patient with other professionals (professionals i.e. , PA, SENIOR SALES REPRESENTATIVE, lab, RT, psych nurse, oncology social work, pet store merchandiser, teacher, correction officer penitentiary, therapeutic case manager)? Give summary @ -Case discussed with practitioner Era Richmond who will admit covering with Dr. metzger, covering for Dr. Zaidi Was smoking cessation discussed for >3mins.? @ -No Was critical care preformed (if so, how long)? @ -No Were there social determinants of health that impacted care today? How? (Homelessness, low income, unemployed, alcoholism, drug addiction, transportation, low edu. Level, literacy, decrease access to med. care, intermediate, rehab)? @ -No Was there de-escalation of care discussed even if they declined (Discuss DNR or withdrawal of care, Hospice)? DNR status @ -No What co-morbidities impacted this encounter? (DM, HTN, Smoking, COPD, CAD, Cancer, CVA, ARF, Chemo, Hep., AIDS, mental health diagnosis, sleep apnea, morbid obesity)? @ -None Was patient admitted / discharged? Hospital course, mention meds given and route, prescriptions, significant lab abnormalities, going to OR and other pertinent info. @ -Patient presents with chest and abdominal discomfort and dyspnea. Patient reevaluated and updated. Patient will be admitted with further testing and consult. Admission orders written Undiagnosed new problem with uncertain prognosis? @ -No Drug Therapy requiring intensive monitoring for toxicity (Heparin, Nitro, Insulin, Cardizem)? @ -No Were any procedures done? @ -No Diagnosis/symptom? @ -Chest pain, dyspnea Acute, or Chronic, or Acute on Chronic? @ -, Acute acute Uncomplicated (without systemic symptoms) or Complicated (systemic symptoms)? @ -Default Side effects of treatment? @ -No Exacerbation, Progression, or Severe Exacerbation? @ -No Poses a threat to life or bodily function? How? (Chest pain, [place], [place], pneumonia, PE, COPD, DKA, ARF, appy, cholecystitis, CVA, Diverticulitis, Homicidal, Suicidal, threat to staff... and all critical care pts) @ -To cardiac and pulmonary function - Lab Data Result diagrams: 04/03/24 18:31 04/03/24 18:31 Lab Results 04/03/24 04/03/24 04/03/24 Range/Units 18:31 18:31 18:31 WBC 6.3 (3.8-10.6) k/uL RBC 4.38 (3.80-5.40) m/uL Hgb 13.1 (11.4-16.0) gm/dL Hct 40.1 (34.0-46.0) % MCV 91.4 (80.0-100.0) fL MCH 29.8 (25.0-35.0) pg MCHC 32.6 (31.0-37.0) g/dL RDW 15.1 (11.5-15.5) % Plt Count 251 (150-450) k/uL MPV 7.5 Neutrophils % 53 % Lymphocytes % 28 % Monocytes % 12 % Eosinophils % 5 % Basophils % 1 % Neutrophils # 3.3 (1.3-7.7) k/uL Lymphocytes # 1.8 (1.0-4.8) k/uL Monocytes # 0.7 (0-1.0) k/uL Eosinophils # 0.3 (0-0.7) k/uL Basophils # 0.0 (0-0.2) k/uL PT 9.5 L (10.0-12.5) sec INR 0.8 (<1.2) APTT 24.9 (22.0-30.0) sec Sodium 140 (137-145) mmol/L Potassium 4.0 (3.5-5.1) mmol/L Chloride 112 H (98-107) mmol/L Carbon Dioxide 23 (22-30) mmol/L Anion Gap 5 mmol/L BUN 9 (7-17) mg/dL Creatinine 0.83 (0.52-1.04) mg/dL Est GFR (CKD-EPI)AfAm >90 (>60 ml/min/1.73 sqM) Est GFR (CKD-EPI)NonAf 80 (>60 ml/min/1.73 sqM) Glucose 130 H (74-99) mg/dL Calcium 9.5 (8.4-10.2) mg/dL Total Bilirubin 0.2 (0.2-1.3) mg/dL AST 23 (14-36) U/L ALT 22 (4-34) U/L Alkaline Phosphatase 96 (38-126) U/L Troponin I (0.000-0.034) ng/mL Total Protein 6.1 L (6.3-8.2) g/dL Albumin 3.6 (3.5-5.0) g/dL Amylase 39 (30-110) U/L Lipase 76 (23-300) U/L 04/03/24 Range/Units 18:31 WBC (3.8-10.6) k/uL RBC (3.80-5.40) m/uL Hgb (11.4-16.0) gm/dL Hct (34.0-46.0) % MCV (80.0-100.0) fL MCH (25.0-35.0) pg MCHC (31.0-37.0) g/dL RDW (11.5-15.5) % Plt Count (150-450) k/uL MPV Neutrophils % % Lymphocytes % % Monocytes % % Eosinophils % % Basophils % % Neutrophils # (1.3-7.7) k/uL Lymphocytes # (1.0-4.8) k/uL Monocytes # (0-1.0) k/uL Eosinophils # (0-0.7) k/uL Basophils # (0-0.2) k/uL PT (10.0-12.5) sec INR (<1.2) APTT (22.0-30.0) sec Sodium (137-145) mmol/L Potassium (3.5-5.1) mmol/L Chloride (98-107) mmol/L Carbon Dioxide (22-30) mmol/L Anion Gap mmol/L BUN (7-17) mg/dL Creatinine (0.52-1.04) mg/dL Est GFR (CKD-EPI)AfAm (>60 ml/min/1.73 sqM) Est GFR (CKD-EPI)NonAf (>60 ml/min/1.73 sqM) Glucose (74-99) mg/dL Calcium (8.4-10.2) mg/dL Total Bilirubin (0.2-1.3) mg/dL AST (14-36) U/L ALT (4-34) U/L Alkaline Phosphatase (38-126) U/L Troponin I <0.012 (0.000-0.034) ng/mL Total Protein (6.3-8.2) g/dL Albumin (3.5-5.0) g/dL Amylase (30-110) U/L Lipase (23-300) U/L Disposition Clinical Impression: Chest pain Disposition: ADMITTED IP TO THIS HOSP Is patient prescribed a controlled substance at d/c from ED?: No Referrals: Estelle Butterfield DO [Primary Care Provider] - 1-2 days Time of Disposition: 20:46
[2024-04-03 18:41] LABS: Basophils % (A) 1 %; Eosinophils # (A) 0.3 k/uL (0-0.7); Eosinophils % (A) 5 %; HCT 40.1 % (34.0-46.0); HGB 13.1 gm/dL (11.4-16.0); Lymphocytes # (A) 1.8 k/uL (1.0-4.8); Lymphocytes % (A) 28 %; MCH 29.8 pg (25.0-35.0); MCHC 32.6 g/dL (31.0-37.0); MCV 91.4 fL (80.0-100.0); Mean Platelet Volume 7.5; Monocytes # (A) 0.7 k/uL (0-1.0); Monocytes % (A) 12 %; Neutrophils # (A) 3.3 k/uL (1.3-7.7); Neutrophils % (A) 53 %; Platelet Count 251 k/uL (150-450); RBC 4.38 m/uL (3.80-5.40); RDW 15.1 % (11.5-15.5); WBC 6.3 k/uL (3.8-10.6)
[2024-04-03 18:50] LABS: ALT 22 U/L (4-34); AST 23 U/L (14-36); African American GFR (CKD) >90 (>60 ml/min/1.73 sqM); Albumin 3.6 g/dL (3.5-5.0); Alkaline Phosphatase 96 U/L (38-126); Amylase 39 U/L (30-110); Anion Gap 5 mmol/L; Blood Urea Nitrogen 9 mg/dL (7-17); Calcium 9.5 mg/dL (8.4-10.2); Carbon Dioxide 23 mmol/L (22-30); Chloride 112 mmol/L (98-107); Glucose 130 mg/dL (74-99); Lipase 76 U/L (23-300); Non-African American GFR(CKD) 80 (>60 ml/min/1.73 sqM); Sodium 140 mmol/L (137-145); Total Bilirubin 0.2 mg/dL (0.2-1.3); Total Protein 6.1 g/dL (6.3-8.2)
[2024-04-03] MEDS: PANTOPRAZOLE 40 MG/10 ML VIAL IVP STA (18:50)
[2024-04-03 18:53] LABS: INR 0.8 (<1.2); Partial Thromboplastin Time 24.9 sec (22.0-30.0); Prothrombin Time 9.5 sec (10.0-12.5)
[2024-04-03] MEDS: methylPREDNISolone SOD SUCCI 125 MG/2 ML VIAL IV STA (18:54)
[2024-04-03] MEDS: SODIUM CHLORIDE 0.9% 1,000 ML IV STA (18:54)
[2024-04-03] MEDS: ONDANSETRON 4 MG/2 ML VIAL IVP STA (18:55)
[2024-04-03] MEDS: diphenhydrAMINE 50 MG/ML 1 ML VIAL IVP STA (18:59)
[2024-04-03] MEDS: HYDROmorphone 1 MG/ML 1 ML SYRINGE IVP STA ×2 (19:00→22:13)
[2024-04-03] MEDS: FAMOTIDINE 20 MG/2 ML VIAL IV STA (19:00)
--- NOTE | 2024-04-03 20:28 | CT ---
EXAMINATION TYPE: CT abdomen pelvis w con CT DLP: combined dlp 1516.1 mGycm, Automated exposure control for dose reduction was used. DATE OF EXAM: 04/03/2024 8:07 PM COMPARISON: 09/30/2023 CLINICAL INDICATION: Female, 54 years old with history of abp and distention; abd pain TECHNIQUE: Axial CT abdomen pelvis w con;Sagittal and coronal reformats were created on a separate w orkstation. Contrast used:100 mL of Isovue 370 with IV Contrast, (none if empty) Oral contrast used: without Oral Contrast (none if empty) FINDINGS: LOWER CHEST: Unremarkable ABDOMEN LIVER: Unremarkable GALLBLADDER AND BILE DUCTS: Gallbladder is surgically absent with mild intrahepatic and extra hepatic biliary dilatation likely physiologic and a postcholecystectomy change. No evidence of choledocholit hiasis. PANCREAS: Unremarkable. SPLEEN: Unremarkable. ADRENAL GLANDS: Unremarkable. KIDNEYS AND URETERS: No evidence of hydronephrosis or renal calculus. The ureters are unremarkable. PELVIS BLADDER: Unremarkable REPRODUCTIVE: Unremarkable. ABDOMEN & PELVIS STOMACH AND BOWEL: No evidence of bowel obstruction. PERITONEUM/RETROPERITONEUM: No evidence of pneumoperitoneum or free fluid. VASCULATURE: Mild atherosclerotic calcifications are present throughout the abdominal aorta and its b ranches. No evidence of aortic aneurysm. MUSCULOSKELETAL: No acute osseous abnormalities LYMPH NODES: No gross evidence for lymphadenopathy. SOFT TISSUE/ABDOMINAL WALL: Right fat containing inguinal hernia. IMPRESSION: 1. No acute abdominal process. No obstructive uropathy or renal calculus. The appendix is surgically absent. The gallbladder surgically absent. 2. Fat-containing right inguinal hernia.
[2024-04-03] MEDS ORDERED: hydrOXYzine pamoate 25 MG CAP PO PRN (20:42)
[2024-04-03] MEDS ORDERED: clonazePAM 0.5 MG TAB PO PRN (20:42)
--- NOTE | 2024-04-03 20:42 | CT ---
EXAMINATION TYPE: CT angio chest CT DLP: combined 1516.1 mGycm, Automated exposure control for dose reduction was used. DATE OF EXAM: 04/03/2024 8:07 PM COMPARISON: Chest radiograph from same day. CLINICAL INDICATION: Female, 54 years old with history of cp, dysp; gail TECHNIQUE/CONTRAST: CTA scan of the thorax is performed with IV Contrast, patient injected with 100 mL of Isovue 370, MIP images are created and reviewed these are created on a separate workstation.. FINDINGS: Motion limited exam. Pulmonary Artery: There is no evidence for a filling defect within the pulmonary vasculature to sugge st acute pulmonary embolism. The pulmonary artery is of normal size. Lungs/Pleura: No evidence of focal consolidation, pleural effusion or pneumothorax. Airway: Large airways are patent. Heart: The heart is mildly enlarged for size. Vasculature: No evidence of aortic aneurysm. Mediastinum: No gross evidence of adenopathy. Musculoskeletal: No acute osseous abnormalities Soft Tissues/lymph nodes: Unremarkable. Lower neck: No significant findings. Upper Abdomen: No significant findings. IMPRESSION: Motion limited exam. 1. No evidence of pulmonary embolism. 2. Low lung volumes and mild cardiomegaly with possible mild pulm vascular congestion. Correlate with BNP.
[2024-04-03] MEDS ORDERED: NITROGLYCERIN SL TABS 0.4 MG TAB SUBLINGUAL PRN (20:46)
[2024-04-03] MEDS: ASPIRIN 81 MG PO STA (21:04)
[2024-04-03] MEDS: LORazepam 2 MG/ML INJ IV STA (21:07)
[2024-04-03] MEDS: busPIRone HCl 10 MG TAB PO SCH (21:49)
[2024-04-03] MEDS: risperiDONE 2 MG TAB PO SCH (21:50)
[2024-04-03] MEDS: MIRTAZAPINE 15 MG TAB PO SCH (21:51)
[2024-04-03] MEDS: PRAZOSIN 1 MG CAP PO SCH (21:52)
[2024-04-03] MEDS: PANTOPRAZOLE 40 MG TABLET PO SCH (21:52)
[2024-04-03] MEDS: GABAPENTIN 400 MG CAP PO SCH (21:54)
[2024-04-03] MEDS: NITROGLYCERIN OINT 1 INCH/GM PACKET TOPICAL SCH (22:13)
[2024-04-04 00:39] LABS: Glucose,Whole Blood 189 mg/dL (70-110)
[2024-04-04] MEDS: ALBUTEROL NEBULIZED 2.5 MG/3 ML INHALATION PRN (00:52)
[2024-04-04 07:55] VITALS: BP 98/66; PULSE 89; RESP 16; TEMP 97.5
[2024-04-04] MEDS: SYMBICORT 80-4.5 MCG INHALER INHALATION SCH (08:32)
[2024-04-04] MEDS: ASPIRIN 325 MG TAB PO SCH (08:42)
[2024-04-04] MEDS: buPROPion XL 300 MG TAB.ER.24H PO SCH (08:42)
[2024-04-04 08:50] LABS: Chol/HDL Ratio 3.57 Ratio; LDL Cholesterol,Calculated 176.5 mg/dL (0.0-131.0); VLDL Calculation 15.76 mg/dL (5.00-40.00)
--- NOTE | 2024-04-04 09:03 | P.CRDCN ---
History of Present Illness History of present illness: HISTORY OF PRESENT ILLNESS: This is a 54-year-old female with a past medical history significant for moderate nonobstructive CAD, hypertension, hyperlipidemia, chronic back pain, and nicotine dependence. Patient follows in the office with Dr. Roy but has not been seen since October 2020. We have been asked to see the patient in consultation for chest pain. Patient examined at the bedside. Patient states she presented to the hospital to chief complaint of abdominal pain. She reports significant tenderness throughout her abdomen. She states that she feels short of breath this morning due to the pain. She reports very mild chest discomfort yesterday. DIAGNOSTICS: - EKG reveals sinus mechanism with nonspecific ST-T wave changes. Unchanged from previous EKGs - Laboratory data: WBC 6.3. Hemoglobin 13.1. Platelet count 251. Sodium 140. Potassium 4.0. BUN 9. Creatinine 0.83. Troponin negative x 3. - Current home cardiac medications include none - Most recent echocardiogram obtained in December 2023 revealed ejection fraction 55 to 60% with mild MR and mild TR - Cardiac catheterization history: September 2020 revealing moderate noncritical CAD REVIEW OF SYSTEMS: At the time of my exam: CONSTITUTIONAL: Denies fever or chills. HEENT: Denies blurred vision, vision changes, or eye pain. Denies hemoptysis CARDIOVASCULAR: Denies chest pain. Denies orthopnea. Denies PND. Denies palpitations RESPIRATORY: Denies shortness of breath. GASTROINTESTINAL: Denies abdominal pain. Denies nausea or vomiting. HEMATOLOGIC: Denies bleeding disorders. GENITOURINARY: Denies any blood in urine. SKIN: Denies pruitis. Denies rash. PHYSICAL EXAM: VITAL SIGNS: Reviewed. GENERAL: Well-developed in no acute distress. HEENT: Head is normocephalic. Pupils are equal, round. Sclerae anicteric. Mucous membranes of the mouth are moist. Neck supple. No JVD or thyromegaly LUNGS: Respirations even and unlabored. Lungs essentially clear to auscultation bilaterally. HEART: Regular rate and rhythm. S1 and S2 heard. ABDOMEN: Soft. Nondistended. Tenderness with palpation EXTREMITIES: Normal range of motion. No clubbing or cyanosis. Peripheral pulses intact. No lower extremity edema NEUROLOGIC: Awake and alert. Oriented x 3. ASSESSMENT: Abdominal pain Chest pain, atypical, troponin negative x 3 Moderate nonobstructive CAD Hypertension Hyperlipidemia, uncontrolled, LDL 176.5 Chronic back pain Nicotine dependence PLAN: An acute coronary event has been ruled out. Patient symptoms are mostly abdominal pain. Further evaluation per primary medicine Add aspirin and statin No plans for stress testing or cardiac catheterization from a cardiac standpoint Patient may be discharged home today from a cardiology perspective Nurse practitioner note has been reviewed by physician. Signing provider agrees with the documented findings, assessment, and plan of care documented by DEVOPS ENGINEER as a scribe. Past Medical History Past Medical History: COPD, GERD/Reflux, Hypertension, Pneumonia Additional Past Medical History / Comment(s): chronic back pain, lumbar degenerative disc disease, insomnia, hx shingles, hiatal hernia, kidney stones. 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, migraines,; NECK PAIN , Rabies 09/17 Last Myocardial Infarction Date:: 08/27/2016 History of Any Multi-Drug Resistant Organisms: MRSA Date of last positivie culture/infection: 09/22/09 MDRO Source:: neck Past Surgical History: Appendectomy, Back Surgery, Section, Cholecystectomy, Orthopedic Surgery Additional Past Surgical History / Comment(s): Cervical spine fusion with insertion of a metal plate, EGD, colonoscopy, radiofrequency ablation, Past Anesthesia/Blood Transfusion Reactions: No Reported Reaction Additional Past Anesthesia/Blood Transfusion Reaction / Comment(s): CLAUSTROPHOBIA Past Psychological History: ADD/ADHD, Anxiety, Panic Disorder Additional Psychological History / Comment(s): PT LIVES WITH SIG OTHER OF 25 YEARS. Smoking Status: Current every day smoker Past Alcohol Use History: None Reported Additional Past Alcohol Use History / Comment(s): PATIENT STATES SHE STARTED SMOKING AT AGE 16 SMOKES 4 CIG PER DAY Past Drug Use History: None Reported - Past Family History Father Family Medical History: Cancer Additional Family Medical History / Comment(s): Father at age 48 from lung cancer. Mother Family Medical History: Congestive Heart Failure (CHF), CVA/TIA Additional Family Medical History / Comment(s): Mother is alive at age 68. She has suffered from a CVA and has chronic back problems. Patient has 2 brothers and 4 sisters with no major medical problems. Medications and Allergies Home Medications Medication Instructions Recorded Confirmed Type clonazePAM [KlonoPIN] 0.5 mg PO BID PRN 10/23/19 04/03/24 History Methylphenidate HCl [Ritalin] 20 mg PO TID 04/07/23 04/03/24 History Prazosin [Minipress] 5 mg PO HS 04/07/23 04/03/24 History hydrOXYzine pamoate [Vistaril] 50 mg PO TID PRN 04/07/23 04/03/24 History Albuterol Inhaler [Ventolin Hfa 2 puff INHALATION RT-QID PRN 09/30/23 04/03/24 History Inhaler] Gabapentin 800 mg PO TID 09/30/23 04/03/24 History busPIRone HCL [Buspar] 30 mg PO BID 09/30/23 04/03/24 History risperiDONE 2 mg PO BID 09/30/23 04/03/24 History Pantoprazole [Protonix] 40 mg PO BID 12/30/23 04/03/24 History Phentermine HCl [Adipex-P] 37.5 mg PO DAILY 12/30/23 04/03/24 History buPROPion XL [Wellbutrin XL] 300 mg PO DAILY 12/30/23 04/03/24 History Fluticasone Propion/Salmeterol 1 puff PO RT-BID 04/03/24 04/03/24 History [Advair 100-50 Diskus] Mirtazapine 7.5 mg PO HS 04/03/24 04/03/24 History Allergies Allergy/AdvReac Type Severity Reaction Status Date / Time ibuprofen Allergy Anaphylaxis Verified 04/03/24 20:06 ketorolac [From Toradol] Allergy Anaphylaxis Verified 04/03/24 20:06 shellfish derived Allergy Anaphylaxis Verified 04/03/24 20:06 tramadol [From Ultram] Allergy Anaphylaxis Verified 04/03/24 20:06 Physical Exam Vitals: Vital Signs Temp Pulse Pulse Resp BP BP BP 04/04/24 07:00 97.5 F L 89 16 98/66 04/04/24 01:57 97.7 F 95 18 100/75 04/04/24 01:32 91 18 118/94 04/04/24 01:12 97 04/04/24 00:52 96 04/04/24 00:44 100 18 119/58 04/04/24 00:32 85 18 119/58 04/03/24 22:03 97 18 125/92 04/03/24 21:12 95 16 124/94 09/09/24 17:27 24 04/03/24 17:24 98.9 F 114 H 22 132/89 Pulse Ox 04/04/24 07:00 94 L 04/04/24 01:57 97 04/04/24 01:32 96 04/04/24 01:12 04/04/24 00:52 04/04/24 00:44 96 04/04/24 00:32 95 04/03/24 22:03 101 H 04/03/24 21:12 97 04/03/24 17:27 04/03/24 17:24 97 Intake and Output 04/03/24 04/04/24 04/04/24 22:59 06:59 14:59 Other: # Voids 1 Weight 73.936 kg 73.936 kg Results 04/03/24 18:31 04/03/24 18:31 Cardiac Enzymes 04/03/24 04/03/24 04/03/24 Range/Units 18:31 18:31 21:04 AST 23 (14-36) U/L Troponin I <0.012 <0.012 (0.000-0.034) ng/mL 04/04/24 Range/Units 00:37 AST (14-36) U/L Troponin I <0.012 (0.000-0.034) ng/mL Coagulation 04/03/24 Range/Units 18:31 PT 9.5 L (10.0-12.5) sec APTT 24.9 (22.0-30.0) sec Lipids 04/04/24 Range/Units 02:42 Triglycerides 78.80 (0.00-149.00) mg/dL Cholesterol 267.00 H (0.00-200.00) mg/dL HDL Cholesterol 74.70 H (40.00-60.00) mg/dL Cholesterol/HDL Ratio 3.57 Ratio CBC 04/03/24 Range/Units 18:31 WBC 6.3 (3.8-10.6) k/uL RBC 4.38 (3.80-5.40) m/uL Hgb 13.1 (11.4-16.0) gm/dL Hct 40.1 (34.0-46.0) % Plt Count 251 (150-450) k/uL Comprehensive Metabolic Panel 04/03/24 Range/Units 18:31 Sodium 140 (137-145) mmol/L Potassium 4.0 (3.5-5.1) mmol/L Chloride 112 H (98-107) mmol/L Carbon Dioxide 23 (22-30) mmol/L BUN 9 (7-17) mg/dL Creatinine 0.83 (0.52-1.04) mg/dL Glucose 130 H (74-99) mg/dL Calcium 9.5 (8.4-10.2) mg/dL AST 23 (14-36) U/L ALT 22 (4-34) U/L Alkaline Phosphatase 96 (38-126) U/L Total Protein 6.1 L (6.3-8.2) g/dL Albumin 3.6 (3.5-5.0) g/dL Current Medications Generic Name Dose Route Start Last Admin Trade Name Freq PRN Reason Stop Dose Admin Albuterol Sulfate 2.5 mg 04/03/24 20:42 04/04/24 00:52 Albuterol Nebulized 2.5 Mg/3 Ml INHALATION 2.5 mg RT-QID PRN Administration Shortness Of Breath Aspirin 325 mg 04/04/24 09:00 04/04/24 08:42 Aspirin 325 Mg Tab PO 325 mg DAILY YUSRA Administration Budesonide/Formoterol Fumarate 2 puff 04/04/24 08:00 04/04/24 08:32 Symbicort 80-4.5 Mcg Inhaler INHALATION 2 puff RT-BID YUSRA Administration Bupropion HCl 300 mg 04/04/24 09:00 04/04/24 08:42 Bupropion Xl 300 Mg Tab.Er.24h PO 300 mg DAILY YUSRA Administration Buspirone HCl 30 mg 04/03/24 21:00 04/04/24 08:42 Buspirone Hcl 10 Mg Tab PO 30 mg BID YUSRA Administration Clonazepam 0.5 mg 04/03/24 20:42 Clonazepam 0.5 Mg Tab PO BID PRN Severe Anxiety Gabapentin 800 mg 04/03/24 22:00 04/04/24 08:42 Gabapentin 400 Mg Cap PO 800 mg TID YUSRA Administration Hydroxyzine Pamoate 50 mg 04/03/24 20:42 Hydroxyzine Pamoate 25 Mg Cap PO TID PRN Anxiety or Insomnia Mirtazapine 7.5 mg 04/03/24 21:00 04/03/24 21:51 Mirtazapine 15 Mg Tab PO 7.5 mg HS YUSRA Administration Nitroglycerin 0.4 mg 04/03/24 20:46 Nitroglycerin Sl Tabs 0.4 Mg Tab SUBLINGUAL Q5M PRN Chest Pain Nitroglycerin 1 inch 04/03/24 21:00 04/04/24 08:42 Nitroglycerin Oint 1 Inch/Gm Packet TOPICAL 1 inch Q6H YUSRA Administration Pantoprazole Sodium 40 mg 04/03/24 21:00 04/04/24 08:42 Pantoprazole 40 Mg Tablet PO 40 mg BID YUSRA Administration Prazosin HCl 5 mg 04/03/24 21:00 04/03/24 21:52 Prazosin 1 Mg Cap PO 5 mg HS YUSRA Administration Risperidone 2 mg 04/03/24 21:00 04/04/24 08:42 Risperidone 2 Mg Tab PO 2 mg BID YUSRA Administration Intake and Output 04/03/24 04/04/24 04/04/24 22:59 06:59 14:59 Other: # Voids 1 Weight 73.936 kg 73.936 kg 04/03/24 18:31 04/03/24 18:31
[2024-04-04] MEDS ORDERED: ATORVASTATIN 80 MG TAB PO SCH (21:00)
[2024-04-05] MEDS ORDERED: ASPIRIN 81 MG PO SCH (09:00)
--- NOTE | 2024-04-05 20:53 | P.HPIM ---
History of Present Illness H&P Date: 04/04/24 This is a 54 year old female with medical history of COPD, GERD, hypertension, back pain, anxiety/ADD current smoker. Comes in with complaints of Chest pain and shortness of breath. Abdomen/Pelvis CT reveals no acute process. and a fat- containing right inguinal hernia. Chest CTA reveals no PE. and possible mild pulmonary vascular congestion. Admitted to the hospital under medicine. Cardiology consultation. Patient was evaluated by cardiology felt patients symptoms mostly abdominal and no need for cardiac work up. Blood work was unremarkable. Troponin levels negative. Patient left AMA from the medical floor before being evaluated by admitting provider. The impression and plan of care has been dictated by Jess Serrato Nurse Practitioner as directed. Dr. Nigel MD I have performed a history and physical examination and medical decision making of this patient, discussed the same with the dictator, and agree with the dictators assessment and plan as written, documented as a scribe. Based on total visit time, I have performed more than 50% of this visit. Past Medical History Past Medical History: COPD, GERD/Reflux, Hypertension, Pneumonia Additional Past Medical History / Comment(s): chronic back pain, lumbar degenerative disc disease, insomnia, hx shingles, hiatal hernia, kidney stones. 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, migraines,; NECK PAIN , Rabies 09/17 Last Myocardial Infarction Date:: 08/27/2016 History of Any Multi-Drug Resistant Organisms: MRSA Date of last positivie culture/infection: 09/22/09 MDRO Source:: neck Past Surgical History: Appendectomy, Back Surgery, Section, Cho lecystectomy, Orthopedic Surgery Additional Past Surgical History / Comment(s): Cervical spine fusion with insertion of a metal plate, EGD, colonoscopy, radiofrequency ablation, Past Anesthesia/Blood Transfusion Reactions: No Reported Reaction Additional Past Anesthesia/Blood Transfusion Reaction / Comment(s): CLAUSTROPHOB [place] Past Psychological History: ADD/ADHD, Anxiety, Panic Disorder Additional Psychological History / Comment(s): PT LIVES WITH SIG OTHER OF 25 YEARS. Smoking Status: Current every day smoker Past Alcohol Use History: None Reported Additional Past Alcohol Use History / Comment(s): PATIENT STATES SHE STARTED SMOKING AT AGE 16 SMOKES 4 CIG PER DAY Past Drug Use History: None Reported - Past Family History Father Family Medical History: Cancer Additional Family Medical History / Comment(s): Father at age 48 from lung cancer. Mother Family Medical History: Congestive Heart Failure (CHF), CVA/TIA Additional Family Medical History / Comment(s): Mother is alive at age 68. She has suffered from a CVA and has chronic back problems. Patient has 2 brothers and 4 sisters with no major medical problems. Medications and Allergies Home Medications Medication Instructions Recorded Confirmed Type clonazePAM [KlonoPIN] 0.5 mg PO BID PRN 10/23/19 04/03/24 History Methylphenidate HCl [Ritalin] 20 mg PO TID 04/07/23 04/03/24 History Prazosin [Minipress] 5 mg PO HS 04/07/23 04/03/24 History hydrOXYzine pamoate [Vistaril] 50 mg PO TID PRN 04/07/23 04/03/24 History Albuterol Inhaler [Ventolin Hfa 2 puff INHALATION RT-QID PRN 09/30/23 04/03/24 History Inhaler] Gabapentin 800 mg PO TID 09/30/23 04/03/24 History busPIRone HCL [Buspar] 30 mg PO BID 09/30/23 04/03/24 History risperiDONE 2 mg PO BID 09/30/23 04/03/24 History Pantoprazole [Protonix] 40 mg PO BID 12/30/23 04/03/24 History Phentermine HCl [Adipex-P] 37.5 mg PO DAILY 12/30/23 04/03/24 History buPROPion XL [Wellbutrin XL] 300 mg PO DAILY 12/30/23 04/03/24 History Fluticasone Propion/Salmeterol 1 puff PO RT-BID 04/03/24 04/03/24 History [Advair 100-50 Diskus] Mirtazapine 7.5 mg PO HS 04/03/24 04/03/24 History Allergies Allergy/AdvReac Type Severity Reaction Status Date / Time ibuprofen Allergy Anaphylaxis Verified 04/03/24 20:06 ketorolac [From Toradol] Allergy Anaphylaxis Verified 04/03/24 20:06 shellfish derived Allergy Anaphylaxis Verified 04/03/24 20:06 tramadol [From Ultram] Allergy Anaphylaxis Verified 04/03/24 20:06 Results CBC & Chem 7: 04/03/24 18:31 04/03/24 18:31
--- NOTE | 2024-04-05 20:54 | P.DS ---
Providers Date of admission: 04/03/24 20:48 Attending physician: Laron Manning Consults: 04/03/24 20:46 Consult Physician Urgent Consulting Provider: Dillon Milner Consult Reason/Comments: cp Do you want consulting provider notified?: Yes Primary care physician: Estelle Butterfield Hospital Course: This is a 54 year old female with medical history of COPD, GERD, hypertension, back pain, anxiety/ADD current smoker. Comes in with complaints of Chest pain and shortness of breath. Abdomen/Pelvis CT reveals no acute process. and a fat- containing right inguinal hernia. Chest CTA reveals no PE. and possible mild pulmonary vascular congestion. Admitted to the hospital under medicine. Cardiology consultation. Patient was evaluated by cardiology felt patients symptoms mostly abdominal and no need for cardiac work up. Blood work was unremarkable. Troponin levels negative. Patient left AMA from the medical floor before being evaluated by admitting provider. The impression and plan of care has been dictated by Jess Serrato, Nurse Practitioner as directed. Dr. Nigel MD I have performed a history and physical examination and medical decision making of this patient, discussed the same with the dictator, and agree with the dictators assessment and plan as written, documented as a scribe. Based on total visit time, I have performed more than 50% of this visit. Plan - Discharge Summary New Discharge Prescriptions: No Action clonazePAM [KlonoPIN] 0.5 mg PO BID PRN PRN Reason: Severe Anxiety Methylphenidate HCl [Ritalin] 20 mg PO TID Prazosin [Minipress] 5 mg PO HS hydrOXYzine pamoate [Vistaril] 50 mg PO TID PRN PRN Reason: Anxiety or Insomnia Gabapentin 800 mg PO TID Albuterol Inhaler [Ventolin Hfa Inhaler] 2 puff INHALATION RT-QID PRN PRN Reason: Shortness Of Breath risperiDONE 2 mg PO BID Phentermine HCl [Adipex-P] 37.5 mg PO DAILY Mirtazapine 7.5 mg PO HS busPIRone HCL [Buspar] 30 mg PO BID Pantoprazole [Protonix] 40 mg PO BID buPROPion XL [Wellbutrin XL] 300 mg PO DAILY Fluticasone Propion/Salmeterol [Advair 100-50 Diskus] 1 puff PO RT-BID Discharge Medication List clonazePAM [KlonoPIN] 0.5 mg PO BID PRN 10/23/19 [History] Methylphenidate HCl [Ritalin] 20 mg PO TID 04/07/23 [History] Prazosin [Minipress] 5 mg PO HS 04/07/23 [History] hydrOXYzine pamoate [Vistaril] 50 mg PO TID PRN 04/07/23 [History] Albuterol Inhaler [Ventolin Hfa Inhaler] 2 puff INHALATION RT-QID PRN 09/30/23 [History] Gabapentin 800 mg PO TID 09/30/23 [History] busPIRone HCL [Buspar] 30 mg PO BID 09/30/23 [History] risperiDONE 2 mg PO BID 09/30/23 [History] Pantoprazole [Protonix] 40 mg PO BID 12/30/23 [History] Phentermine HCl [Adipex-P] 37.5 mg PO DAILY 12/30/23 [History] buPROPion XL [Wellbutrin XL] 300 mg PO DAILY 12/30/23 [History] Fluticasone Propion/Salmeterol [Advair 100-50 Diskus] 1 puff PO RT-BID 04/03/24 [History] Mirtazapine 7.5 mg PO HS 04/03/24 [History] Follow up Appointment(s)/Referral(s): Estelle Butterfield DO [Primary Care Provider] - 1-2 days Discharge Disposition: LEFT AGAINST MEDICAL ADVICE
== END 2024-04-04 10:57 | disposition left against medical advice (07) ==
LOC: EC 17:23 → 6NMEDSUR 20:48
PROVIDERS: ADMIT Internal Medicine; ATTEND Internal Medicine
DX: R07.89 Other chest pain (principal); R10.9 Unspecified abdominal pain; J44.9 Chronic obstructive pulmonary disease, unspecified; R14.0 Abdominal distension (gaseous); F17.210 Nicotine dependence, cigarettes, uncomplicated; I25.10 Atherosclerotic heart disease of native coronary artery without angina pectoris; I08.1 Rheumatic disorders of both mitral and tricuspid valves; I10 Essential (primary) hypertension; E78.5 Hyperlipidemia, unspecified; G89.29 Other chronic pain; M54.9 Dorsalgia, unspecified; K21.9 Gastro-esophageal reflux disease without esophagitis; K40.90 Unilateral inguinal hernia, without obstruction or gangrene, not specified as recurrent; F90.9 Attention-deficit hyperactivity disorder, unspecified type; R11.0 Nausea; F41.9 Anxiety disorder, unspecified; Z53.29 Procedure and treatment not carried out because of patient's decision for other reasons; Z79.51 Long term (current) use of inhaled steroids; Z79.899 Other long term (current) drug therapy; Z88.6 Allergy status to analgesic agent; Z88.5 Allergy status to narcotic agent; Z91.013 Allergy to seafood
CPT/HCPCS: 36415; 71275; 74177; 80053; 80061; 82150; 83690; 83880; 84484; 85025; 85610; 85730; 93005; 94640; 96374; 96375; 96376; 99285

== ENCOUNTER 2024-06-02 07:57 | Emergency (ER) | payer OTHER ==
[2024-06-02 08:00] VITALS: BP 124/86; PULSE 92; RESP 16; TEMP 98.5
--- NOTE | 2024-06-02 08:14 | ED ---
Back Pain HPI - General Chief Complaint: Back Pain/Injury Stated Complaint: back pain Time Seen by Provider: 06/02/24 08:01 Source: patient, RN notes reviewed, old records reviewed Mode of arrival: ambulatory Limitations: no limitations - History of Present Illness Initial Comments: 54 year old female presents to the ED with chief complaint of lower back pain that started 2 days ago. She states that without cause/injury, she started having lower back pain radiating to both legs, mostly the left leg. She states that nothing relieves the pain and nothing aggravates it. She states that the pain is constant, she has taken xanax for the pain which did not relieve it. She denies numbness, tingling, paresthesia. She denies saddle anesthesias/bowel bladder complaints. She denies other complaints. - Related Data Home Medications Medication Instructions Recorded Confirmed clonazePAM [KlonoPIN] 0.5 mg PO BID PRN 10/23/19 04/03/24 Methylphenidate HCl [Ritalin] 20 mg PO TID 04/07/23 04/03/24 Prazosin [Minipress] 5 mg PO HS 04/07/23 04/03/24 hydrOXYzine pamoate [Vistaril] 50 mg PO TID PRN 04/07/23 04/03/24 Albuterol Inhaler [Ventolin Hfa 2 puff INHALATION RT-QID PRN 09/30/23 04/03/24 Inhaler] Gabapentin 800 mg PO TID 09/30/23 04/03/24 busPIRone HCL [Buspar] 30 mg PO BID 09/30/23 04/03/24 risperiDONE 2 mg PO BID 09/30/23 04/03/24 Pantoprazole [Protonix] 40 mg PO BID 12/30/23 04/03/24 Phentermine HCl [Adipex-P] 37.5 mg PO DAILY 12/30/23 04/03/24 buPROPion XL [Wellbutrin XL] 300 mg PO DAILY 12/30/23 04/03/24 Fluticasone Propion/Salmeterol 1 puff PO RT-BID 04/03/24 04/03/24 [Advair 100-50 Diskus] Mirtazapine 7.5 mg PO HS 04/03/24 04/03/24 Previous Rx's Medication Instructions Recorded Cyclobenzaprine [Flexeril] 10 mg PO TID PRN #15 tab 06/02/24 predniSONE 50 mg PO DAILY #5 tab 06/02/24 Allergies Allergy/AdvReac Type Severity Reaction Status Date / Time ibuprofen Allergy Anaphylaxis Verified 06/02/24 08:00 ketorolac [From Toradol] Allergy Anaphylaxis Verified 06/02/24 08:00 shellfish derived Allergy Anaphylaxis Verified 06/02/24 08:00 tramadol [From Ultram] Allergy Anaphylaxis Verified 06/02/24 08:00 Review of Systems ROS Statement: Those systems with pertinent positive or pertinent negative responses have been documented in the HPI. ROS Other: All systems not noted in ROS Statement are negative. Past Medical History Past Medical History: COPD, GERD/Reflux, Hypertension, Pneumonia Additional Past Medical History / Comment(s): chronic back pain, lumbar degenerative disc disease, insomnia, hx shingles, hiatal hernia, kidney stones. 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, migraines,; NECK PAIN , Rabies 09/17 Last Myocardial Infarction Date:: 08/27/2016 History of Any Multi-Drug Resistant Organisms: MRSA Date of last positivie culture/infection: 09/22/09 MDRO Source:: neck Past Surgical History: Appendectomy, Back Surgery, Section, Cholecystectomy, Orthopedic Surgery Additional Past Surgical History / Comment(s): Cervical spine fusion with insertion of a metal plate, EGD, colonoscopy, radiofrequency ablation, Past Anesthesia/Blood Transfusion Reactions: No Reported Reaction Additional Past Anesthesia/Blood Transfusion Reaction / Comment(s): CLAUSTROPHOBIA Past Psychological History: ADD/ADHD, Anxiety, Panic Disorder Smoking Status: Current every day smoker Past Alcohol Use History: None Reported Past Drug Use History: None Reported - Past Family History Father Family Medical History: Cancer Additional Family Medical History / Comment(s): Father at age 48 from lung cancer. Mother Family Medical History: Congestive Heart Failure (CHF), CVA/TIA Additional Family Medical History / Comment(s): Mother is alive at age 68. She has suffered from a CVA and has chronic back problems. Patient has 2 brothers and 4 sisters with no major medical problems. General Exam Limitations: no limitations General appearance: alert, in no apparent distress Head exam: Present: atraumatic, normocephalic, normal inspection Eye exam: Present: normal appearance, PERRL, EOMI. Absent: scleral icterus, conjunctival injection, periorbital swelling Neck exam: Present: normal inspection, full ROM. Absent: tenderness, meningismus, lymphadenopathy Respiratory exam: Present: normal lung sounds bilaterally. Absent: respiratory distress, wheezes, rales, rhonchi, stridor Cardiovascular Exam: Present: regular rate, normal rhythm, normal heart sounds. Absent: systolic murmur, diastolic murmur, rubs, gallop, clicks GI/Abdominal exam: Present: soft, normal bowel sounds. Absent: distended, tenderness, guarding, rebound, rigid Extremities exam: Present: normal inspection, full ROM, normal capillary refill. Absent: tenderness, pedal edema, joint swelling, calf tenderness Back exam: Present: normal inspection, full ROM, tenderness, muscle spasm, paraspinal tenderness. Absent: CVA tenderness (R), CVA tenderness (L), vertebral tenderness Neurological exam: Present: alert, oriented X3, CN II-XII intact, reflexes normal. Absent: motor sensory deficit Psychiatric exam: Present: normal affect, normal mood Skin exam: Present: warm, dry, intact, normal color. Absent: rash Course Vital Signs 06/02/24 07:57 Temperature 98.5 F Pulse Rate 92 Respiratory 16 Rate Blood Pressure 124/86 O2 Sat by Pulse 97 Oximetry Medical Decision Making - Medical Decision Making Was pt. sent in by a medical professional or institution (JANIE Miller, EDGER MACHINE HELPER, urgent care, hospital, or fci...) When possible be specific @ -No Did you speak to anyone other than the patient for history (EMS, parent, family, police, friend...)? What history was obtained from this source @ -No Did you review nursing and triage notes (agree or disagree)? Why? @ -I reviewed and agree with nursing and triage notes Were old charts reviewed (outside hosp., previous admission, EMS record, old EKG, old radiological studies, urgent care reports/EKG's, fci records)? Report findings @ -Reviewed prior lumbar CT Differential Diagnosis (chest pain, altered mental status, abdominal pain women, abdominal pain men, vaginal bleeding, weakness, fever, dyspnea, syncope, headache, dizziness, GI bleed, back pain, seizure, CVA, palpatations, mental health, musculoskeletal)? @ -Differential Back Pain: Strain, zoster, cauda equina syndrome, epidural abscess, vertebral osteomyelitis, discitis, fracture, subluxation, disc herniation, DJD, spinal stenosis, dissection, AAA, pancreatitis, peptic ulcer disease, pyelonephritis, kidney stone, this is not meant to be an all-inclusive list. EKG interpreted by me (3pts min.). @ -None X-rays interpreted by me (1pt min.). @ -None done CT interpreted by me (1pt min.). @ -None done U/S interpreted by me (1pt. min.). @ -None done What testing was considered but not performed or refused? (CT, X-rays, U/S, labs)? Why? @ -None What meds were considered but not given or refused? Why? @ -None Did you discuss the management of the patient with other professionals (professionals i.e. , PA, EDGER MACHINE HELPER, lab, RT, psych nurse, hospital social worker, editor publications, teacher, civil preparedness training officer, continuous pillowcase cutter)? Give summary @ -No Was smoking cessation discussed for >3mins.? @ -No Was critical care preformed (if so, how long)? @ -No Were there social determinants of health that impacted care today? How? (Homelessness, low income, unemployed, alcoholism, drug addiction, transportation, low edu. Level, literacy, decrease access to med. care, [facility], rehab)? @ -No Was there de-escalation of care discussed even if they declined (Discuss DNR or withdrawal of care, Hospice)? DNR status @ -No What co-morbidities impacted this encounter? (DM, HTN, Smoking, COPD, CAD, Cancer, CVA, ARF, Chemo, Hep., AIDS, mental health diagnosis, sleep apnea, morbid obesity)? @ -None Was patient admitted / discharged? Hospital course, mention meds given and route, prescriptions, significant lab abnormalities, going to OR and other pertinent info. @ -Discharge patient has chronic back pain patient has acute exacerbation of chronic issues. Patient has no red flag symptoms. Patient is requesting narcotics advised that she needs to follow-up with primary care physician for additional pain meds. She was provided Norflex, steroids and Flexeril for home. Undiagnosed new problem with uncertain prognosis? @ -No Drug Therapy requiring intensive monitoring for toxicity (Heparin, Nitro, Insulin, Cardizem)? @ -No Were any procedures done? @ -No Diagnosis/symptom? @ -Acute on chronic back pain Acute, or Chronic, or Acute on Chronic? @ -Acute on chronic Uncomplicated (without systemic symptoms) or Complicated (systemic symptoms)? @ -Uncomplicated Side effects of treatment? @ -No Exacerbation, Progression, or Severe Exacerbation? @ -No Poses a threat to life or bodily function? How? (Chest pain, [place], [place], pneumonia, PE, COPD, DKA, ARF, appy, cholecystitis, CVA, Diverticulitis, Homicidal, Mai cidal, threat to staff... and all critical care pts) @ -No Disposition Clinical Impression: Back pain Disposition: HOME SELF-CARE Condition: Stable Instructions (If sedation given, give patient instructions): Acute Low Back Pain (ED) Additional Instructions: Please return to the Emergency Department if symptoms worsen or any other concerns. Prescriptions: Cyclobenzaprine [Flexeril] 10 mg PO TID PRN #15 tab PRN Reason: Muscle Spasm predniSONE 50 mg PO DAILY #5 tab Is patient prescribed a controlled substance at d/c from ED?: No Referrals: Estelle Butterfield DO [Primary Care Provider] - 1-2 days Time of Disposition: 08:25
[2024-06-02] MEDS: ORPHENADRINE 30 MG/ML 2 ML VIAL IM STA (08:16)
== END 2024-06-02 08:34 | disposition home or self-care (01) ==
LOC: EC 07:57
DX: M54.9 Dorsalgia, unspecified (principal); F17.200 Nicotine dependence, unspecified, uncomplicated; Z88.6 Allergy status to analgesic agent; Z88.5 Allergy status to narcotic agent; Z91.013 Allergy to seafood
CPT/HCPCS: 99283; 96372; J2360

== ENCOUNTER 2024-10-22 11:19 | Inpatient (IN) | payer OTHER ==
[2024-10-22] MEDS: ASPIRIN 81 MG PO STA (11:43)
[2024-10-22] MEDS: LORazepam 2 MG/ML INJ IV STA ×2 (11:44→13:50)
[2024-10-22] MEDS: NITROGLYCERIN SL TABS 0.4 MG TAB SUBLINGUAL STA (11:44)
--- NOTE | 2024-10-22 11:51 | ED ---
Chest Pain HPI - General Chief Complaint: Chest Pain Stated Complaint: Chest pain Time Seen by Provider: 10/22/24 11:26 Source: patient, RN notes reviewed Mode of arrival: wheelchair Limitations: no limitations - History of Present Illness Initial Comments: This is a 54-year-old female who presents to the emergency department for chest pain. States that it started a couple of hours ago while she was cooking breakfast. Describes it as a sharp and pressure-like sensation. Also reports some radiation of pain down the arm and into the back. Denies any shortness of breath. She does report feeling very anxious and nauseous as well. She has had chest pain in the past, but states that it never felt this before. Denies any history of cardiac issues. MD Complaint: chest pain - Related Data Home Medications Medication Instructions Recorded Confirmed clonazePAM [KlonoPIN] 0.5 mg PO BID PRN 10/23/19 04/03/24 Methylphenidate HCl [Ritalin] 20 mg PO TID 04/07/23 04/03/24 Prazosin [Minipress] 5 mg PO HS 04/07/23 04/03/24 hydrOXYzine pamoate [Vistaril] 50 mg PO TID PRN 04/07/23 04/03/24 Albuterol Inhaler [Ventolin Hfa 2 puff INHALATION RT-QID PRN 09/30/23 04/03/24 Inhaler] Gabapentin 800 mg PO TID 09/30/23 04/03/24 busPIRone HCL [Buspar] 30 mg PO BID 09/30/23 04/03/24 risperiDONE 2 mg PO BID 09/30/23 04/03/24 Pantoprazole [Protonix] 40 mg PO BID 12/30/23 04/03/24 Phentermine HCl [Adipex-P] 37.5 mg PO DAILY 12/30/23 04/03/24 buPROPion XL [Wellbutrin XL] 300 mg PO DAILY 12/30/23 04/03/24 Fluticasone Propion/Salmeterol 1 puff PO RT-BID 04/03/24 04/03/24 [Advair 100-50 Diskus] Mirtazapine 7.5 mg PO HS 04/03/24 04/03/24 Previous Rx's Medication Instructions Recorded Cyclobenzaprine [Flexeril] 10 mg PO TID PRN #15 tab 11/08/24 predniSONE 50 mg PO DAILY #5 tab 06/02/24 Allergies Allergy/AdvReac Type Severity Reaction Status Date / Time ibuprofen Allergy Anaphylaxis Verified 10/22/24 11:22 ketorolac [From Toradol] Allergy Anaphylaxis Verified 10/22/24 11:22 shellfish derived Allergy Anaphylaxis Verified 10/22/24 11:22 tramadol [From Ultram] Allergy Anaphylaxis Verified 10/22/24 11:22 Review of Systems ROS Statement: Those systems with pertinent positive or pertinent negative responses have been documented in the HPI. ROS Other: All systems not noted in ROS Statement are negative. Past Medical History Past Medical History: COPD, GERD/Reflux, Hypertension, Pneumonia Additional Past Medical History / Comment(s): chronic back pain, lumbar degenerative disc disease, insomnia, hx shingles, hiatal hernia, kidney stones. 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, migraines,; NECK PAIN , Rabies 09/17 Last Myocardial Infarction Date:: 08/27/2016 History of Any Multi-Drug Resistant Organisms: MRSA Date of last positivie culture/infection: 09/22/09 MDRO Source:: neck Past Surgical History: Appendectomy, Back Surgery, Section, Cholecystectomy, Orthopedic Surgery Additional Past Surgical History / Comment(s): Cervical spine fusion with insertion of a metal plate, EGD, colonoscopy, radiofrequency ablation, Past Anesthesia/Blood Transfusion Reactions: No Reported Reaction Additional Past Anesthesia/Blood Transfusion Reaction / Comment(s): CLAUSTROPHOBIA Past Psychological History: ADD/ADHD, Anxiety, Panic Disorder Smoking Status: Current every day smoker Past Alcohol Use History: None Reported Past Drug Use History: None Reported - Past Family History Father Family Medical History: Cancer Additional Family Medical History / Comment(s): Father at age 48 from lung cancer. Mother Family Medical History: Congestive Heart Failure (CHF), CVA/TIA Additional Family Medical History / Comment(s): Mother is alive at age 68. She has suffered from a CVA and has chronic back problems. Patient has 2 brothers and 4 sisters with no major medical problems. General Exam Limitations: no limitations General appearance: alert, anxious Head exam: Present: atraumatic, normocephalic, normal inspection Respiratory exam: Present: normal lung sounds bilaterally. Absent: respiratory distress, wheezes, rales, rhonchi, stridor Cardiovascular Exam: Present: regular rate, normal rhythm Neurological exam: Present: alert, oriented X3, CN II-XII intact Psychiatric exam: Present: normal affect, normal mood Skin exam: Present: warm, dry, intact, normal color. Absent: rash Course Vital Signs 10/22/24 11:20 Temperature 98.3 F Pulse Rate 90 Respiratory 17 Rate Blood Pressure 129/89 O2 Sat by Pulse 98 Oximetry Chest Pain MDM - MDM This is a 54-year-old female who presents to the emergency department for chest pain. Was pt. sent in by a medical professional or institution? @ -No Did you speak to anyone other than the patient for history? @ -No Did you review nursing and triage notes? @ -Yes, and I agree, it is accurate with regards to the patient's symptoms. Were old charts reviewed? @ -No Differential Diagnosis? @ -Differential Chest Pain: Stable Angina, Unstable Angina, STEMI, NSTEMI Aortic Dissection, Pneumothorax, Musculoskeletal, Esophageal Spasm GERD, Cholecystitis, Pancreatitis, Zoster, this is not meant to be an all-inclusive list. EKG interpreted by me (3pts min.)? @ -EKG interpreted by me demonstrating the following: Sinus rhythm. Ventricular rate 93 bpm, CO interval 166 ms, QRS duration 82 ms, QTc 394 ms. X-rays interpreted by me (1pt min.)? @ -Chest x-ray obtained, my interpretation identifies no localized consolidations or infiltrates. CT interpreted by me (1pt min.)? @ -Not obtained U/S interpreted by me (1pt. min.)? @ -Not obtained What testing was considered but not performed? (CT, X-rays, U/S, labs)? Why? @ -None What meds were considered but not given? Why? @ -None Did you discuss the management of the patient with other professionals? @ -No Did you reconcile home meds? @ -No Was smoking cessation discussed for >3mins.? @ -I discussed smoking cessation for greater than 3 minutes. The risk of smoking were discussed with the patient including but not limited to risks of cancer, stroke, coronary artery disease and COPD. Also discussed with patient were multiple methods of quitting smoking. Lastly we discussed the financial cost of smoking. Was critical care preformed (if so, how long)? @ -No Were there social determinants of health that impacted care today? How? (Homelessness, low income, unemployed, alcoholism, drug addiction, transportation, low edu. Level, literacy, decrease access to med. care, [facility], rehab)? @ -No Was there de-escalation of care discussed even if they declined? (Discuss DNR or withdrawal of care, Hospice)? @ -No What co-morbidities impacted this encounter? (DM, HTN, Smoking, COPD, CAD, Cancer, CVA, Hep., AIDS, mental health diagnosis, sleep apnea, morbid obesity)? @ -Smoking, HTN, HLD Was patient admitted / discharged? @ -Admitted. Patient was given aspirin and nitroglycerin on arrival, but had no relief in pain. Lab work unremarkable including a negative troponin and negative D-dimer. Chest x-ray reveals no acute process. Discussed with the patient the option of a repeat troponin at the 3-hour valerie and discharge home if negative. However, patient states that she is too anxious and would like to stay the night and be evaluated by cardiology. Given the description of her pain with several risk factors we were in agreement with this plan. Patient admitted to medicine for chest pain with cardiology consult. Serial troponins ordered. Case discussed with ED attending Dr. Feldman. Undiagnosed new problem with uncertain prognosis? @ -None Drug Therapy requiring intensive monitoring for toxicity (Heparin, Nitro, Insulin, Cardizem)? @ -None Were any procedures done? @ -None Diagnosis/symptom? @ -Chest pain Acute, or Chronic, or Acute on Chronic? @ -Acute Uncomplicated (without systemic symptoms) or Complicated (systemic symptoms)? @ -Uncomplicated Side effects of treatment? @ -None Exacerbation, Progression, or Severe Exacerbation] @ -Not applicable Poses a threat to life or bodily function? @ -Yes, if due to ACS can be life threatening Disposition Clinical Impression: Chest pain, Nicotine dependence Disposition: ADMITTED IP TO THIS HOSP
--- NOTE | 2024-10-22 12:00 | XR ---
Chest, 2 view. CLINICAL INDICATION: Female, 54 years old with history of Chest Pain COMPARISON: 12/30/2023 TECHNIQUE: PA and lateral views the chest are obtained. FINDINGS: The lungs are clear and there is no consolidative or interstitial opacity. There is no pleural effusion or pneumothorax. The heart, pulmonary vasculature, mediastinum and iggy appear normal. The osseous structures are intact. IMPRESSION: No significant abnormality seen. No acute cardiopulmonary disease. No interval change. [facility], , 10/22/2024 11:58 AM
[2024-10-22 12:02] LABS: Basophils # (A) 0.1 k/uL (0-0.2); Basophils % (A) 1 %; Eosinophils # (A) 0.4 k/uL (0-0.7); Eosinophils % (A) 4 %; HCT 46.8 % (34.0-46.0); HGB 15.2 gm/dL (11.4-16.0); Lymphocytes % (A) 19 %; MCH 29.1 pg (25.0-35.0); MCHC 32.5 g/dL (31.0-37.0); MCV 89.4 fL (80.0-100.0); Mean Platelet Volume 7.4; Monocytes # (A) 0.8 k/uL (0-1.0); Monocytes % (A) 8 %; Neutrophils # (A) 7.3 k/uL (1.3-7.7); Neutrophils % (A) 68 %; Platelet Count 412 k/uL (150-450); RBC 5.23 m/uL (3.80-5.40); RDW 12.8 % (11.5-15.5); WBC 10.8 k/uL (3.8-10.6)
[2024-10-22] MEDS: SODIUM CHLORIDE 0.9% 1,000 ML IV ONE (12:03)
[2024-10-22] MEDS: ONDANSETRON 4 MG/2 ML VIAL IVP STA (12:04)
[2024-10-22] MEDS: HYDROmorphone 1 MG/ML 1 ML SYRINGE IVP STA ×2 (12:05→12:42)
[2024-10-22 12:16] LABS: ALT 20 U/L (4-34); AST 20 U/L (14-36); African American GFR (CKD) >90 (>60 ml/min/1.73 sqM); Albumin 4.2 g/dL (3.5-5.0); Alkaline Phosphatase 106 U/L (38-126); Anion Gap 13 mmol/L; Blood Urea Nitrogen 10 mg/dL (7-17); Calcium 10.1 mg/dL (8.4-10.2); Carbon Dioxide 20 mmol/L (22-30); Chloride 105 mmol/L (98-107); Glucose 159 mg/dL (74-99); Magnesium 1.7 mg/dL (1.6-2.3); Non-African American GFR(CKD) 83 (>60 ml/min/1.73 sqM); Potassium 3.9 mmol/L (3.5-5.1); Sodium 138 mmol/L (137-145); Total Bilirubin 0.5 mg/dL (0.2-1.3); Total Protein 6.9 g/dL (6.3-8.2)
[2024-10-22 12:22] LABS: Partial Thromboplastin Time 25.8 sec (22.0-30.0); Prothrombin Time 10.8 sec (10.0-12.5)
[2024-10-22] MEDS: NITROGLYCERIN OINT 1 INCH/GM PACKET TOPICAL STA (12:45)
[2024-10-22] MEDS ORDERED: NALOXONE 0.4 MG/ML 1 ML VIAL IV PRN (12:54)
[2024-10-22] MEDS ORDERED: ACETAMINOPHEN TAB 325 MG TAB PO PRN (12:54)
[2024-10-22] MEDS ORDERED: HYDROmorphone 1 MG/ML 1 ML SYRINGE IVP PRN (12:54)
[2024-10-22] MEDS ORDERED: HYDROmorphone 0.5 MG/0.5 ML SYRINGE IVP PRN (12:55)
[2024-10-22 13:24] LABS: Appearance,Urine Cloudy (Clear); Bilirubin,Urine Negative (Negative); Blood,Urine Negative (Negative); Color,Urine Light Yellow; Glucose,Urine (UA) Negative (Negative); Ketones,Urine Negative (Negative); Leukocyte Esterase,Urine Negative (Negative); Mucus,Urine Rare /hpf; Nitrite,Urine Negative (Negative); Protein,Urine Negative (Negative); RBC,Urine 2 /hpf (0-5); Specific Gravity,Urine 1.013 (1.001-1.035); Squamous Epithelial Cell,Urine 5 /hpf (0-4); Urobilinogen,Urine <2.0 mg/dL (<2.0); WBC,Urine 3 /hpf (0-5)
[2024-10-22] MEDS: MORPHINE SULFATE 4 MG/ML SYRINGE IV PRN (14:46)
[2024-10-22] MEDS: HYDROcodone/APAP 5-325MG 1 EACH TAB PO PRN (16:41)
[2024-10-22] MEDS: ONDANSETRON 4 MG/2 ML VIAL IVP PRN (18:38)
[2024-10-22] MEDS ORDERED: ALBUTEROL NEBULIZED 2.5 MG/3 ML INHALATION PRN (19:33)
--- NOTE | 2024-10-22 19:38 | P.HPIM ---
History of Present Illness This is a pleasant 54 years old female who presents because of chest pain for 3 hours duration about 8-9/10 in severity felt like stabbing and heaviness central radiating to the back No dyspnea no coughing. No specific GI/ symptom. No headache weakness or numbness. Patient states also have some dizziness for 3 hours She smokes about 3 cigarettes/day and she was counseled to quit and she agrees to the nicotine patch. No alcohol or illicit drugs. Vitals are stable and she is afebrile Labs are unremarkable including CBC, BMP, LFT, INR, troponin x 3 and urinalysis D-dimer negative at 0.36 Chest x-ray showing no acute process Review of Systems Review of systems CONSTITUTIONAL: No fever, no malaise, no fatigue. HEENT: No recent visual problems or hearing problems. Denied any sore throat. CARDIOVASCULAR: No orthopnea, PND, no palpitations, no syncope. PULMONARY: No shortness of breath, no cough, no hemoptysis. GASTROINTESTINAL: No diarrhea, no nausea, no vomiting, no abdominal pain. Normoactive bowel sounds. NEUROLOGICAL: No headaches, no weakness, no numbness. HEMATOLOGICAL: Denies any bleeding or petechiae. GENITOURINARY: Denies any burning micturition, frequency, or urgency. MUSCULOSKELETAL/RHEUMATOLOGICAL: Denies any joint pain, swelling, or any muscle pain. ENDOCRINE: Denies any polyuria or polydipsia. Past Medical History Past Medical History: COPD, GERD/Reflux, Hypertension, Pneumonia Additional Past Medical History / Comment(s): chronic back pain, lumbar degenerative disc disease, insomnia, hx shingles, hiatal hernia, kidney stones. 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, migraines,; NECK PAIN , Rabies 09/17 Last Myocardial Infarction Date:: 08/27/2016 History of Any Multi-Drug Resistant Organisms: MRSA Date of last positivie culture/infection: 09/22/09 MDRO Source:: neck Past Surgical History: Appendectomy, Back Surgery, Section, Cholecystectomy, Orthopedic Surgery Additional Past Surgical History / Comment(s): Cervical spine fusion with insertion of a metal plate, EGD, colonoscopy, radiofrequency ablation, Past Anesthesia/Blood Transfusion Reactions: No Reported Reaction Additional Past Anesthesia/Blood Transfusion Reaction / Comment(s): CLAUSTROPHOBIA Past Psychological History: ADD/ADHD, Anxiety, Panic Disorder Smoking Status: Current every day smoker Past Alcohol Use History: None Reported Past Drug Use History: None Reported - Past Family History Father Family Medical History: Cancer Additional Family Medical History / Comment(s): Father at age 48 from lung cancer. Mother Family Medical History: Congestive Heart Failure (CHF), CVA/TIA Additional Family Medical History / Comment(s): Mother is alive at age 68. She has suffered from a CVA and has chronic back problems. Patient has 2 brothers and 4 sisters with no major medical problems. Medications and Allergies Home Medications Medication Instructions Recorded Confirmed Type clonazePAM [KlonoPIN] 0.5 mg PO BID PRN 10/23/19 10/22/24 History Methylphenidate HCl [Ritalin] 20 mg PO TID 04/07/23 10/22/24 History Prazosin [Minipress] 5 mg PO HS 04/07/23 10/22/24 History hydrOXYzine pamoate [Vistaril] 50 mg PO TID 04/07/23 10/22/24 History Albuterol Inhaler [Ventolin Hfa 2 puff INHALATION RT-Q4H PRN 09/30/23 10/22/24 History Inhaler] Gabapentin 800 mg PO TID 09/30/23 10/22/24 History risperiDONE 2 mg PO BID 09/30/23 10/22/24 History Mirtazapine [Remeron] 15 mg PO HS 10/22/24 10/22/24 History Tiotropium 2.5 Mcg/Puff [Spiriva 2 puff INHALATION RT-DAILY PRN 10/22/24 10/22/24 History Respimat 2.5 Mcg] busPIRone HCL 15 mg PO TID 10/22/24 10/22/24 History Allergies Allergy/AdvReac Type Severity Reaction Status Date / Time ibuprofen Allergy Anaphylaxis Verified 10/22/24 15:37 ketorolac [From Toradol] Allergy Anaphylaxis Verified 10/22/24 15:37 shellfish derived Allergy Anaphylaxis Verified 10/22/24 15:37 tramadol [From Ultram] Allergy Anaphylaxis Verified 10/22/24 15:37 Physical Exam Vitals: Vital Signs Temp Pulse Resp BP Pulse Ox 10/22/24 17:00 87 18 108/88 97 10/22/24 16:00 79 18 120/80 98 10/22/24 11:20 98.3 F 90 17 129/89 98 Intake and Output 10/22/24 10/22/24 10/22/24 06:59 14:59 22:59 Other: Weight 73.482 kg GENERAL: The patient is alert and oriented x3, not in any acute distress. Well developed, well nourished. HEENT: Pupils are round and equally reacting to light. EOMI. No scleral icterus. No conjunctival pallor. Normocephalic, atraumatic. No pharyngeal erythema. No thyromegaly. CARDIOVASCULAR: S1 and S2 present. No murmurs, rubs, or gallops. PULMONARY: Chest is clear to auscultation, no wheezing , no crackles. ABDOMEN: Soft, nontender, nondistended, normoactive bowel sounds. No palpable organomegaly. MUSCULOSKELETAL: No joint swelling or deformity. EXTREMITIES: No cyanosis, clubbing, or pedal edema. NEUROLOGICAL: Gross neurological examination did not reveal any focal deficits. SKIN: No rashes. no petechiae. Results CBC & Chem 7: 10/22/24 11:40 10/22/24 11:40 Labs: Abnormal Lab Results - Last 24 Hours (Table) 10/22/24 10/22/24 10/22/24 Range/Units 11:40 11:40 12:29 WBC 10.8 H (3.8-10.6) k/uL Hct 46.8 H (34.0-46.0) % Carbon Dioxide 20 L (22-30) mmol/L Glucose 159 H (74-99) mg/dL Urine Appearance Cloudy H (Clear) Ur Squamous Epith Cells 5 H (0-4) /hpf Urine Mucus Rare H (None) /hpf Assessment and Plan Assessment: Chest pain, could be musculoskeletal. Rule out cardiac causes. D-dimer negative at 0.36 Obesity with BMI of 31.6 Nicotine dependence COPD GERD Hypertension Anxiety Plan: Continue with aspirin Cardiology consult Pain management Resume home medication GI prophylaxis: Protonix DVT prophylaxis: Subcutaneous heparin Prognosis guarded
[2024-10-22] MEDS: busPIRone HCl 10 MG TAB PO SCH (20:55)
[2024-10-22] MEDS: GABAPENTIN 400 MG CAP PO SCH (20:55)
[2024-10-22] MEDS: METHYLPHENIDATE HCL 10 MG TAB PO SCH (20:55)
[2024-10-22] MEDS: hydrOXYzine pamoate 25 MG CAP PO SCH (20:55)
[2024-10-22] MEDS: MIRTAZAPINE 15 MG TAB PO SCH (20:55)
[2024-10-22] MEDS: PRAZOSIN 1 MG CAP PO SCH (20:56)
[2024-10-22] MEDS: NICOTINE 7MG/24HR PATCH TRANSDERM SCH (21:41)
[2024-10-22] MEDS: risperiDONE 2 MG TAB PO SCH (21:41)
[2024-10-22] MEDS: clonazePAM 0.5 MG TAB PO PRN (21:43)
[2024-10-22] MEDS: TIOTROPIUM 2.5 MCG INHALER INHALATION SCH (21:57)
[2024-10-23] MEDS ORDERED: DOBUTamine DRIP for NUC MED 500 MG in DEXTROSE/WATER 1 250ML.BAG IV PRN (08:13)
--- NOTE | 2024-10-23 08:17 | P.HPCAR ---
History of Present Illness Impression Chest back and upper abdominal discomfort Relieved with pain medications requesting more medications Known nonobstructive CAD Not taking any statins Continues to smoke Abnormal EKG with T wave inversions in the precordial leads Normal cardiac enzymes no evidence for acute myocardial infarction Plan Atorvastatin aspirin to continue Noncardiac pain to be addressed by internal medicine Stress test as an inpatient or as an outpatient Smoking cessation advised My impression is this is noncardiac chest discomfort Physical Exam Vitals: Vital Signs Temp Pulse Resp BP Pulse Ox 10/23/24 04:44 82 16 129/88 99 10/23/24 01:34 100 18 125/90 10/22/24 22:00 108 H 18 140/94 97 10/22/24 20:34 98 20 148/94 97 10/22/24 17:00 87 18 108/88 97 10/22/24 16:00 79 18 120/80 98 10/22/24 11:20 98.3 F 90 17 129/89 98 Past Medical History Past Medical History: COPD, GERD/Reflux, Hypertension, Pneumonia Additional Past Medical History / Comment(s): chronic back pain, lumbar degenerative disc disease, insomnia, hx shingles, hiatal hernia, kidney stones. 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, migraines,; NECK PAIN , Rabies 09/17 Last Myocardial Infarction Date:: 08/27/2016 History of Any Multi-Drug Resistant Organisms: MRSA Date of last positivie culture/infection: 09/22/09 MDRO Source:: neck Past Surgical History: Appendectomy, Back Surgery, Section, Cholecystectomy, Orthopedic Surgery Additional Past Surgical History / Comment(s): Cervical spine fusion with insertion of a metal plate, EGD, colonoscopy, radiofrequency ablation, Past Anesthesia/Blood Transfusion Reactions: No Reported Reaction Additional Past Anesthesia/Blood Transfusion Reaction / Comment(s): CL AUSTROPHOBIA Past Psychological History: ADD/ADHD, Anxiety, Panic Disorder Smoking Status: Current every day smoker Past Alcohol Use History: None Reported Past Drug Use History: None Reported - Past Family History Father Family Medical History: Cancer Additional Family Medical History / Comment(s): Father at age 48 from lung cancer. Mother Family Medical History: Congestive Heart Failure (CHF), CVA/TIA Additional Family Medical History / Comment(s): Mother is alive at age 68. She has suffered from a CVA and has chronic back problems. Patient has 2 brothers and 4 sisters with no major medical problems. Physical Examination Vital Signs Temp Pulse Resp BP Pulse Ox 10/23/24 04:44 82 16 129/88 99 10/23/24 01:34 100 18 125/90 10/22/24 22:00 108 H 18 140/94 97 10/22/24 20:34 98 20 148/94 97 10/22/24 17:00 87 18 108/88 97 10/22/24 16:00 79 18 120/80 98 10/22/24 11:20 98.3 F 90 17 129/89 98 Results 10/22/24 11:40 10/22/24 11:40 Cardiac Enzymes 10/22/24 10/22/24 10/22/24 Range/Units 11:40 11:40 14:36 AST 20 (14-36) U/L Troponin I <0.012 <0.012 (0.000-0.034) ng/mL 10/22/24 Range/Units 17:59 AST (14-36) U/L Troponin I <0.012 (0.000-0.034) ng/mL Coagulation 10/22/24 Range/Units 11:40 PT 10.8 (10.0-12.5) sec APTT 25.8 (22.0-30.0) sec CBC 10/22/24 Range/Units 11:40 WBC 10.8 H (3.8-10.6) k/uL RBC 5.23 (3.80-5.40) m/uL Hgb 15.2 (11.4-16.0) gm/dL Hct 46.8 H (34.0-46.0) % Plt Count 412 (150-450) k/uL Comprehensive Metabolic Panel 10/22/24 Range/Units 11:40 Sodium 138 (137-145) mmol/L Potassium 3.9 (3.5-5.1) mmol/L Chloride 105 (98-107) mmol/L Carbon Dioxide 20 L (22-30) mmol/L BUN 10 (7-17) mg/dL Creatinine 0.80 (0.52-1.04) mg/dL Glucose 159 H (74-99) mg/dL Calcium 10.1 (8.4-10.2) mg/dL AST 20 (14-36) U/L ALT 20 (4-34) U/L Alkaline Phosphatase 106 (38-126) U/L Total Protein 6.9 (6.3-8.2) g/dL Albumin 4.2 (3.5-5.0) g/dL Current Medications Generic Name Dose Route Start Last Admin Trade Name Freq PRN Reason Stop Dose Admin Acetaminophen 650 mg 10/22/24 12:54 Acetaminophen Tab 325 Mg Tab PO Q6HR PRN Mild Pain or Fever > 100.5 Hydrocodone Bitart/Acetaminophen 1 each 10/22/24 13:11 10/23/24 01:31 Hydrocodone/Apap 5-325mg 1 Each Tab PO 1 each Q4HR PRN Administration Moderate Pain (Scale 4 to 6) Albuterol Sulfate 2.5 mg 10/22/24 19:33 Albuterol Nebulized 2.5 Mg/3 Ml INHALATION RT-Q4H PRN Shortness Of Breath Aspirin 81 mg 10/23/24 09:00 Aspirin 81 Mg PO DAILY YUSRA Atorvastatin Calcium 20 mg 10/23/24 09:00 Atorvastatin 20 Mg Tab PO DAILY YUSRA Buspirone HCl 15 mg 10/22/24 22:00 10/22/24 20:55 Buspirone Hcl 10 Mg Tab PO 15 mg TID YUSRA Administration Clonazepam 0.5 mg 10/22/24 21:34 10/22/24 21:44 Clonazepam 0.5 Mg Tab PO 0.5 mg BID PRN Administration Severe Anxiety Gabapentin 800 mg 10/22/24 22:00 10/22/24 20:55 Gabapentin 400 Mg Cap PO 800 mg TID YUSRA Administration Hydroxyzine Pamoate 50 mg 10/22/24 22:00 10/22/24 20:55 Hydroxyzine Pamoate 25 Mg Cap PO 50 mg TID YUSRA Administration Dobutamine HCl/Dextrose 500 mg 250 mls @ 22.045 mls/hr 10/23/24 08:13 / IV Solution IV 10/23/24 12:14 .[id number] PRN Per Protocol Protocol 10 MCG/KG/MIN Methylphenidate HCl 20 mg 10/22/24 22:00 10/22/24 20:55 Methylphenidate Hcl 10 Mg Tab PO 20 mg TID YUSRA Administration Mirtazapine 15 mg 10/22/24 21:00 10/22/24 20:55 Mirtazapine 15 Mg Tab PO 15 mg HS YUSRA Administration Morphine Sulfate 4 mg 10/22/24 13:11 10/23/24 06:54 Morphine Sulfate 4 Mg/Ml Syringe IV 4 mg Q4HR PRN Administration Severe Pain (Scale 7 to 10) Naloxone HCl 0.2 mg 10/22/24 12:54 Naloxone 0.4 Mg/Ml 1 Ml Vial IV Q2M PRN Opioid Reversal Nicotine 1 patch 10/22/24 19:45 10/22/24 21:41 Nicotine 7mg/24hr Patch TRANSDERM 1 patch DAILY YUSRA Administration Ondansetron HCl 4 mg 10/22/24 12:54 10/23/24 02:32 Ondansetron 4 Mg/2 Ml Vial IVP 4 mg Q8HR PRN Administration Nausea And Vomiting Pantoprazole Sodium 40 mg 10/23/24 07:30 Pantoprazole 40 Mg Tablet PO AC-BRKFST YUSRA Prazosin HCl 5 mg 10/22/24 21:00 10/22/24 20:56 Prazosin 1 Mg Cap PO 5 mg HS YUSRA Administration Risperidone 2 mg 10/22/24 21:00 10/22/24 21:41 Risperidone 2 Mg Tab PO 2 mg BID YUSRA Administration Tiotropium [place] 2 puff 10/22/24 08:00 10/22/24 21:57 Tiotropium 2.5 Mcg Inhaler INHALATION Not Given RT-DAILY YUSRA 10/22/24 11:40 10/22/24 11:40
[2024-10-23] MEDS ORDERED: PANTOPRAZOLE 40 MG/10 ML VIAL IV SCH (09:00)
[2024-10-23] MEDS: ASPIRIN 81 MG PO SCH (09:49)
[2024-10-23] MEDS: PANTOPRAZOLE 40 MG TABLET PO SCH (09:49)
[2024-10-23] MEDS: ATORVASTATIN 20 MG TAB PO SCH (09:50)
[2024-10-23 11:22] LABS: Chol/HDL Ratio 4.89 Ratio; LDL Cholesterol,Calculated 115.1 mg/dL (0.0-131.0)
--- NOTE | 2024-10-23 11:49 | P.PN ---
Subjective This is a pleasant 54 years old female who presents because of chest pain for 3 hours duration about 8-9/10 in severity felt like stabbing and heaviness central radiating to the back No dyspnea no coughing. No specific GI/ symptom. No headache weakness or numbness. Patient states also have some dizziness for 3 hours She smokes about 3 cigarettes/day and she was counseled to quit and she agrees to the nicotine patch. No alcohol or illicit drugs. Vitals are stable and she is afebrile Labs are unremarkable including CBC, BMP, LFT, INR, troponin x 3 and urinalysis D-dimer negative at 0.36 Chest x-ray showing no acute process 10/23 Patient still complaining from left-sided chest pain, back pain and upper abdominal pain. She is requesting pain medication IV morphine specifically 4 mg and requesting to increase the frequency from every 4 hours down to every 3 hours. Patient however was seen walking in the hallway. 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 She tolerates diet. We will consult surgery team as no GI service in this facility. Review of systems CONSTITUTIONAL: No fever, no malaise, no fatigue. HEENT: No recent visual problems or hearing problems. Denied any sore throat. HEMATOLOGICAL: Denies any bleeding or petechiae. GENITOURINARY: Denies any burning micturition, frequency, or urgency. ENDOCRINE: Denies any polyuria or polydipsia. Active Medications Generic Name Dose Route Start Last Admin Trade Name Freq PRN Reason Stop Dose Admin Acetaminophen 650 mg 10/22/24 12:54 Acetaminophen Tab 325 Mg Tab PO Q6HR PRN Mild Pain or Fever > 100.5 Hydrocodone Bitart/Acetaminophen 1 each 10/22/24 13:11 10/23/24 01:31 Hydrocodone/Apap 5-325mg 1 Each Tab PO 1 each Q4HR PRN Administration Moderate Pain (Scale 4 to 6) Albuterol Sulfate 2.5 mg 10/22/24 19:33 Albuterol Nebulized 2.5 Mg/3 Ml INHALATION RT-Q4H PRN Shortness Of Breath Aspirin 81 mg 10/23/24 09:00 10/23/24 09:49 Aspirin 81 Mg PO 81 mg DAILY YUSRA Administration Atorvastatin Calcium 20 mg 10/23/24 09:00 10/23/24 09:50 Atorvastatin 20 Mg Tab PO 20 mg DAILY YUSRA Administration Buspirone HCl 15 mg 10/22/24 22:00 10/23/24 09:50 Buspirone Hcl 10 Mg Tab PO 15 mg TID YUSRA Administration Clonazepam 0.5 mg 10/22/24 21:34 10/23/24 10:53 Clonazepam 0.5 Mg Tab PO 0.5 mg BID PRN Administration Severe Anxiety Gabapentin 800 mg 10/22/24 22:00 10/23/24 09:49 Gabapentin 400 Mg Cap PO 800 mg TID YUSRA Administration Hydroxyzine Pamoate 50 mg 10/22/24 22:00 10/23/24 09:49 Hydroxyzine Pamoate 25 Mg Cap PO 50 mg TID YUSRA Administration Dobutamine HCl/Dextrose 500 mg 250 mls @ 22.045 mls/hr 10/23/24 08:13 / IV Solution IV 10/23/24 12:14 .[id number] PRN Per Protocol Protocol 10 MCG/KG/MIN Methylphenidate HCl 20 mg 10/22/24 22:00 10/23/24 10:01 Methylphenidate Hcl 10 Mg Tab PO 20 mg TID YUSRA Administration Mirtazapine 15 mg 10/22/24 21:00 10/22/24 20:55 Mirtazapine 15 Mg Tab PO 15 mg HS YUSRA Administration Morphine Sulfate 4 mg 10/22/24 13:11 10/23/24 10:52 Morphine Sulfate 4 Mg/Ml Syringe IV 4 mg Q4HR PRN Administration Severe Pain (Scale 7 to 10) Naloxone HCl 0.2 mg 10/22/24 12:54 Naloxone 0.4 Mg/Ml 1 Ml Vial IV Q2M PRN Opioid Reversal Nicotine 1 patch 10/22/24 19:45 10/23/24 09:49 Nicotine 7mg/24hr Patch TRANSDERM 1 patch DAILY YUSRA Administration Ondansetron HCl 4 mg 10/22/24 12:54 10/23/24 02:32 Ondansetron 4 Mg/2 Ml Vial IVP 4 mg Q8HR PRN Administration Nausea And Vomiting Pantoprazole Sodium 40 mg 10/23/24 07:30 10/23/24 09:49 Pantoprazole 40 Mg Tablet PO 40 mg AC-BRKFST YUSRA Administration Prazosin HCl 5 mg 10/22/24 21:00 10/22/24 20:56 Prazosin 1 Mg Cap PO 5 mg HS YUSRA Administration Risperidone 2 mg 10/22/24 21:00 10/23/24 09:49 Risperidone 2 Mg Tab PO 2 mg BID YUSRA Administration Tiotropium [place] 2 puff 10/22/24 08:00 10/23/24 10:42 Tiotropium 2.5 Mcg Inhaler INHALATION 2 puff RT-DAILY YUSRA Administration Objective - Vital Signs Vital signs: Vital Signs Temp 98.3 F 10/22/24 11:20 Pulse 82 10/23/24 04:44 Resp 16 10/23/24 04:44 BP 129/88 10/23/24 04:44 Pulse Ox 99 10/23/24 04:44 FiO2 Intake & Output 10/22/24 10/23/24 10/23/24 18:59 06:59 18:59 Weight 73.482 kg - Exam Review of systems CONSTITUTIONAL: No fever, no malaise, no fatigue. HEENT: No recent visual problems or hearing problems. Denied any sore throat. CARDIOVASCULAR: No orthopnea, PND, no palpitations, no syncope. PULMONARY: No shortness of breath, no cough, no hemoptysis. GASTROINTESTINAL: No diarrhea, no nausea, no vomiting, no abdominal pain. Normoactive bowel sounds. NEUROLOGICAL: No headaches, no weakness, no numbness. HEMATOLOGICAL: Denies any bleeding or petechiae. GENITOURINARY: Denies any burning micturition, frequency, or urgency. MUSCULOSKELETAL/RHEUMATOLOGICAL: Denies any joint pain, swelling, or any muscle pain. ENDOCRINE: Denies any polyuria or polydipsia. - Labs CBC & Chem 7: 10/22/24 11:40 10/22/24 11:40 Labs: Abnormal Lab Results - Last 24 Hours (Table) 10/22/24 10/22/24 10/22/24 Range/Units 11:40 11:40 11:40 WBC 10.8 H (3.8-10.6) k/uL Hct 46.8 H (34.0-46.0) % Carbon Dioxide 20 L (22-30) mmol/L Glucose 159 H (74-99) mg/dL Triglycerides 212.00 H (0.00-149.00) mg/dL VLDL Cholesterol, Calc 42.40 H (5.00-40.00) mg/dL Urine Appearance (Clear) Ur Squamous Epith Cells (0-4) /hpf Urine Mucus (None) /hpf 10/22/24 Range/Units 12:29 WBC (3.8-10.6) k/uL Hct (34.0-46.0) % Carbon Dioxide (22-30) mmol/L Glucose (74-99) mg/dL Triglycerides (0.00-149.00) mg/dL VLDL Cholesterol, Calc (5.00-40.00) mg/dL Urine Appearance Cloudy H (Clear) Ur Squamous Epith Cells 5 H (0-4) /hpf Urine Mucus Rare H (None) /hpf Assessment and Plan Assessment: Chest pain, could be musculoskeletal. Rule out cardiac causes. D-dimer negative at 0.36 Epigastric abdominal pain could be related to her chest pain and back pain. Patient tolerates diet Obesity with BMI of 31.6 Nicotine dependence COPD GERD Hypertension Anxiety Plan: Continue with aspirin Cardiology consult with plan for stress test inpatient versus outpatient Pain management Resume home medication Because of her abdominal pain recommend to check lipase, lactic acid KUB and ask for general surgery consult GI prophylaxis: Protonix DVT prophylaxis: Subcutaneous heparin Prognosis guarded
--- NOTE | 2024-10-23 12:21 | XR ---
EXAMINATION TYPE: XR KUB portable DATE OF EXAM: 10/23/2024 CLINICAL INDICATION: Female, 54 years old with history of Abdominal pain, pain TECHNIQUE: 2 portable supine KUB images of the abdomen are obtained. COMPARISON: CT abdomen and pelvis April 03, 2024. FINDINGS: Exam is suboptimal due to large body habitus and portable technique. Gas seen in nondistend ed stomach. Scattered gas is seen in non-distended small bowel loops. Gas and fecal material is seen in non-distended colon. Cholecystectomy clips are redemonstrated. Osseous structures are intact. IMPRESSION: Overall nonobstructive bowel gas pattern. [facility], , 10/23/2024 12:19 PM
[2024-10-23] MEDS ORDERED: BARIUM SULFATE 2% - 450 ML ORAL.SUSP BOTTLE PO PRN (13:37)
--- NOTE | 2024-10-23 13:37 | P.GSCN ---
History of Present Illness Consult date: 10/23/24 History of present illness: CHIEF COMPLAINT: Chest pain HISTORY OF PRESENT ILLNESS: This is a 54-year-old female who presented with chest pain that radiated down her arm and into her back. She is also reported nausea. She reports symptoms started at 10 AM yesterday morning. She also was complaining of epigastric abdominal pain that did worsen yesterday. But the p ain has been ongoing for about 6 months. She reports 2 episodes of vomiting yesterday. She reports a couple episodes of diarrhea. She denies any blood in the stools or the emesis. She is tolerating regular diet. She has been up and ambulating in the hallway. She is using IV morphine for pain medication. KUB x-ray had reported nonobstructive bowel gas pattern. She has a normal white count. She was evaluated by cardiology service they are recommending a dobutamine stress test which could be done outpatient. Her last EGD was in 2019 that had reported duodenitis, gastritis, small hiatal hernia and esophagitis. Patient is a smoker. She does have a history of cholecystectomy and append ectomy. PAST MEDICAL HISTORY: See below PAST SURGICAL HISTORY: See below MEDICATIONS: See below ALLERGIES: See below SOCIAL HISTORY: No illicit drug use. REVIEW OF SYSTEMS: CONSTITUTIONAL: Denies fever or chills. HEENT: Denies blurred vision, vision changes, or eye pain. Denies hemoptysis CARDIOVASCULAR: Denies chest pain or pressure. RESPIRATORY: No shortness of breath. GASTROINTESTINAL: See HPI for pertinent findings HEMATOLOGIC: Denies bleeding disorders. GENITOURINARY: Denies any blood in urine or increased urinary frequency. SKIN: Denies pruitis. Denies rash. PHYSICAL EXAM: VITAL SIGNS: Reviewed GENERAL: Well-developed in no acute distress. HEENT: No sclera icterus. Extraocular movements grossly intact. Moist buccal mucosa. Head is atraumatic, normocephalic. No nasal drainage. ABDOMEN: Soft. Nondistended. Tenderness with palpation epigastric area. No rebound or guarding noted. NEUROLOGIC: Alert and oriented. Cranial nerves II through XII grossly intact. LABORATORY DATA: WBC is 10.8 Hgb 15.2 platelets 412 Sodium is 138 potassium 3.9 creatinine 0.80 A1c 5.8 Lactic acid 1.2 Troponins negative x 3 Lipase 86 LFTs normal IMAGING: KUB x-ray overall nonobstructive bowel gas pattern ASSESSMENT: 1. Epigastric abdominal pain 2. Chest pain evaluated by cardiology PLAN: -Order CT scan abdomen pelvis for evaluation of abdominal pain -If CT scan is normal patient can be discharged Physician Chief Librarian Circulation Department note has been reviewed by physician. Signing provider agrees with the documented findings, assessment, and plan of care. Past Medical History Past Medical History: COPD, GERD/Reflux, Hypertension, Pneumonia Additional Past Medical History / Comment(s): chronic back pain, lumbar deg enerative disc disease, insomnia, hx shingles, hiatal hernia, kidney stones. 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, migraines,; NECK PAIN , Rabies 09/17 Last Myocardial Infarction Date:: 08/27/2016 History of Any Multi-Drug Resistant Organisms: MRSA Year Discovered:: 09/22/09 MDRO Source:: neck Past Surgical History: Appendectomy, Back Surgery, Section, Cholecystectomy, Orthopedic Surgery Additional Past Surgical History / Comment(s): Cervical spine fusion with insertion of a metal plate, EGD, colonoscopy, radiofrequency ablation, Past Anesthesia/Blood Transfusion Reactions: No Reported Reaction Additional Past Anesthesia/Blood Transfusion Reaction / Comm: CLAUSTROPHOBIA Past Psychological History: ADD/ADHD, Anxiety, Panic Disorder Smoking Status: Current every day smoker Past Alcohol Use History: None Reported Past Drug Use History: None Reported - Past Family History Father Family Medical History: Cancer Additional Family Medical History / Comment(s): Father at age 48 from lung cancer. Mother Family Medical History: Congestive Heart Failure (CHF), CVA/TIA Additional Family Medical History / Comment(s): Mother is alive at age 68. She has suffered from a CVA and has chronic back problems. Patient has 2 brothers and 4 sisters with no major medical problems. Medications and Allergies Home Medications Medication Instructions Recorded Confirmed Type clonazePAM [KlonoPIN] 0.5 mg PO BID PRN 10/23/19 10/22/24 History Methylphenidate HCl [Ritalin] 20 mg PO TID 04/07/23 10/22/24 History Prazosin [Minipress] 5 mg PO HS 04/07/23 10/22/24 History hydrOXYzine pamoate [Vistaril] 50 mg PO TID 04/07/23 10/22/24 History Albuterol Inhaler [Ventolin Hfa 2 puff INHALATION RT-Q4H PRN 09/30/23 10/22/24 History Inhaler] Gabapentin 800 mg PO TID 09/30/23 10/22/24 History risperiDONE 2 mg PO BID 09/30/23 10/22/24 History Mirtazapine [Remeron] 15 mg PO HS 10/22/24 10/22/24 History Tiotropium 2.5 Mcg/Puff [Spiriva 2 puff INHALATION RT-DAILY PRN 10/22/24 10/22/24 History Respimat 2.5 Mcg] busPIRone HCL 15 mg PO TID 10/22/24 10/22/24 History Allergies Allergy/AdvReac Type Severity Reaction Status Date / Time ibuprofen Allergy Anaphylaxis Verified 10/22/24 15:37 ketorolac [From Toradol] Allergy Anaphylaxis Verified 10/22/24 15:37 shellfish derived Allergy Anaphylaxis Verified 10/22/24 15:37 tramadol [From Ultram] Allergy Anaphylaxis Verified 10/22/24 15:37 Surgical - Exam Vital Signs Temp Pulse Resp BP Pulse Ox 98.3 F 90 17 129/89 98 10/22/24 11:20 10/22/24 11:20 10/22/24 11:20 10/22/24 11:20 10/22/24 11:20 Results - Labs 10/22/24 11:40 10/22/24 11:40 Abnormal Lab Results - Last 24 Hours (Table) 10/22/24 10/22/24 Range/Units 11:40 12:29 Triglycerides 212.00 H (0.00-149.00) mg/dL VLDL Cholesterol, Calc 42.40 H (5.00-40.00) mg/dL Urine Appearance Cloudy H (Clear) Ur Squamous Epith Cells 5 H (0-4) /hpf Urine Mucus Rare H (None) /hpf Diabetes panel 10/22/24 10/22/24 Range/Units 11:40 11:40 Hemoglobin A1c 5.8 (<=6.0) % Triglycerides 212.00 H (0.00-149.00) mg/dL HDL Cholesterol 40.50 (40.00-60.00) mg/dL
--- NOTE | 2024-10-23 16:54 | CT ---
EXAMINATION TYPE: CT abdomen pelvis wo con DATE OF EXAM: 10/23/2024 4:47 PM COMPARISON: 04/03/2024. CLINICAL INDICATION: Female, 54 years old with history of epigastric abdominal pain; Epigastric abdom inal pain. TECHNIQUE: Axial CT abdomen pelvis wo con;Sagittal and coronal reformats were created on a separate workstation. Contrast used: mL of , (none if empty) Oral contrast used: with Oral Contrast (none if empty) CT DLP: 749.8 mGycm, Automated exposure control for dose reduction was used. FINDINGS: LOWER CHEST: Unremarkable ABDOMEN LIVER: Unremarkable GALLBLADDER AND BILE DUCTS: Gallbladder is surgically absent with mild intrahepatic and extra hepatic biliary dilatation likely physiologic and a postcholecystectomy change. No evidence of choledocholit hiasis. PANCREAS: Unremarkable. SPLEEN: Unremarkable. ADRENAL GLANDS: Unremarkable. KIDNEYS AND URETERS: No evidence of hydronephrosis or renal calculus. The ureters are unremarkable. PELVIS BLADDER: No evidence for wall thickening or mass given limitations of exam. REPRODUCTIVE: Unremarkable. ABDOMEN & PELVIS STOMACH AND BOWEL: No evidence of bowel obstruction. Prior appendectomy changes with surgical changes noted. PERITONEUM/RETROPERITONEUM: No evidence of pneumoperitoneum or free fluid. VASCULATURE: Mild atherosclerotic calcifications are present throughout the abdominal aorta and its b ranches. No evidence of aortic aneurysm. MUSCULOSKELETAL: No acute osseous abnormalities. Mild disc degeneration changes are present throughou t the thoracolumbar spine. LYMPH NODES: No gross evidence for lymphadenopathy. SOFT TISSUE/ABDOMINAL WALL: Fat-containing umbilical hernia. IMPRESSION: No evidence for acute abdominal process. [facility], , 10/23/2024 4:51 PM
--- NOTE | 2024-10-23 21:02 | P.CRDCN ---
History of Present Illness History of present illness: This is Dr. Cedillo dictating an H/P on this patient The patient was interviewed and examined Impression Chest back and upper abdominal discomfort Relieved with pain medications requesting more medications Known nonobstructive CAD Not taking any statins Continues to smoke Abnormal EKG with T wave inversions in the precordial leads Normal cardiac enzymes no evidence for acute myocardial infarction Plan Atorvastatin aspirin to continue Noncardiac pain to be addressed by internal medicine Stress test as an inpatient or as an outpatient Smoking cessation advised My impression is this is noncardiac chest discomfort HPI Patient presented with recurrent chest discomfort and is requesting morphine Her EKG is abnormal with T wave inversions Her cardiac enzymes are normal She looks comfortable but yet complaining of pain and asking for more morphine ROS: No fever chills or rigors, no cough, phlegm or expectoration, no nausea, vomiting or diarrhea, no hematuria, dysuria, no musculoskeletal complaints, no strokes or seizures, no skin lesions. EXAMINATION: 131/81, pulse rate 87 afebrile Breath sounds are clear no rhonchi no crackles Heart sounds are normal REVIEW OF LABS, ECG & MEDICAL DATA 3 normal cardiac enzymes Elevated triglycerides of 212 total cholesterol 198 LDL of 115 and HDL of 41 Past Medical History Past Medical History: COPD, GERD/Reflux, Hypertension, Pneumonia Additional Past Medical History / Comment(s): chronic back pain, lumbar degenerative disc disease, insomnia, hx shingles, hiatal hernia, kidney stones. 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, migraines,; NECK PAIN , Rabies 09/17 Last Myocardial Infarction Date:: 08/27/2016 History of Any Multi-Drug Resistant Organisms: MRSA Date of last positivie culture/infection: 09/22/09 MDRO Source:: neck Past Surgical History: Appendectomy, Back Surgery, Section, Cholecystectomy, Orthopedic Surgery Additional Past Surgical History / Comment(s): Cervical spine fusion with insertion of a metal plate, EGD, colonoscopy, radiofrequency ablation, Past Anesthesia/Blood Transfusion Reactions: No Reported Reaction Additional Past Anesthesia/Blood Transfusion Reaction / Comment(s): CLAUSTROPHOBIA Past Psychological History: ADD/ADHD, Anxiety, Panic Disorder Additional Psychological History / Comment(s): PT LIVES WITH SIG OTHER OF 25 YEARS. Smoking Status: Current every day smoker Past Alcohol Use History: None Reported Additional Past Alcohol Use History / Comment(s): PATIENT STATES SHE STARTED SMOKING AT AGE 16 SMOKES 4 CIG PER DAY Past Drug Use History: None Reported - Past Family History Father Family Medical History: Cancer Additional Family Medical History / Comment(s): Father at age 48 from lung cancer. Mother Family Medical History: Congestive Heart Failure (CHF), CVA/TIA Additional Family Medical History / Comment(s): Mother is alive at age 68. She has suffered from a CVA and has chronic back problems. Patient has 2 brothers and 4 sisters with no major medical problems. Medications and Allergies Home Medications Medication Instructions Recorded Confirmed Type clonazePAM [KlonoPIN] 0.5 mg PO BID PRN 10/23/19 10/22/24 History Methylphenidate HCl [Ritalin] 20 mg PO TID 04/07/23 10/22/24 History Prazosin [Minipress] 5 mg PO HS 04/07/23 10/22/24 History hydrOXYzine pamoate [Vistaril] 50 mg PO TID 04/07/23 10/22/24 History Albuterol Inhaler [Ventolin Hfa 2 puff INHALATION RT-Q4H PRN 09/30/23 10/22/24 History Inhaler] Gabapentin 800 mg PO TID 09/30/23 10/22/24 History risperiDONE 2 mg PO BID 09/30/23 10/22/24 History Mirtazapine [Remeron] 15 mg PO HS 10/22/24 10/22/24 History Tiotropium 2.5 Mcg/Puff [Spiriva 2 puff INHALATION RT-DAILY PRN 10/22/24 10/22/24 History Respimat 2.5 Mcg] busPIRone HCL 15 mg PO TID 10/22/24 10/22/24 History Allergies Allergy/AdvReac Type Severity Reaction Status Date / Time ibuprofen Allergy Anaphylaxis Verified 10/22/24 15:37 ketorolac [From Toradol] Allergy Anaphylaxis Verified 10/22/24 15:37 shellfish derived Allergy Anaphylaxis Verified 10/22/24 15:37 tramadol [From Ultram] Allergy Anaphylaxis Verified 10/22/24 15:37 Physical Exam Vitals: Vital Signs Temp Pulse Pulse Pulse Resp BP BP 10/23/24 19:51 98.0 F 96 18 124/76 10/23/24 15:00 21 124/92 10/23/24 07:00 97.6 F 87 18 131/81 10/23/24 04:44 82 16 129/88 10/23/24 01:34 100 18 125/90 10/22/24 22:00 108 H 18 140/94 Pulse Ox 10/23/24 19:51 95 10/23/24 15:00 97 10/23/24 07:00 97 10/23/24 04:44 99 10/23/24 01:34 10/22/24 22:00 97 Intake and Output 10/23/24 10/23/24 10/23/24 06:59 14:59 22:59 Other: # Voids 3 Weight 73.482 kg Results 10/22/24 11:40 10/22/24 11:40 Lipids 10/22/24 Range/Units 11:40 Triglycerides 212.00 H (0.00-149.00) mg/dL Cholesterol 198.00 (0.00-200.00) mg/dL HDL Cholesterol 40.50 (40.00-60.00) mg/dL Cholesterol/HDL Ratio 4.89 Ratio Current Medications Generic Name Dose Route Start Last Admin Trade Name Freq PRN Reason Stop Dose Admin Acetaminophen 650 mg 10/22/24 12:54 Acetaminophen Tab 325 Mg Tab PO Q6HR PRN Mild Pain or Fever > 100.5 Hydrocodone Bitart/Acetaminophen 1 each 10/22/24 13:11 10/23/24 01:31 Hydrocodone/Apap 5-325mg 1 Each Tab PO 1 each Q4HR PRN Administration Moderate Pain (Scale 4 to 6) Albuterol Sulfate 2.5 mg 10/22/24 19:33 Albuterol Nebulized 2.5 Mg/3 Ml INHALATION RT-Q4H PRN Shortness Of Breath Aspirin 81 mg 10/23/24 09:00 10/23/24 09:49 Aspirin 81 Mg PO 81 mg DAILY YUSRA Administration Atorvastatin Calcium 20 mg 10/23/24 09:00 10/23/24 09:50 Atorvastatin 20 Mg Tab PO 20 mg DAILY YUSRA Administration Barium Sulfate 450 ml 10/23/24 13:37 Barium Sulfate 2% - 450 Ml Oral.Susp Bottle PO 10/24/24 13:[address] Scan Buspirone HCl 15 mg 10/22/24 22:00 10/23/24 20:31 Buspirone Hcl 10 Mg Tab PO 15 mg TID YUSRA Administration Clonazepam 0.5 mg 10/22/24 21:34 10/23/24 17:41 Clonazepam 0.5 Mg Tab PO 0.5 mg BID PRN Administration Severe Anxiety Gabapentin 800 mg 10/22/24 22:00 10/23/24 20:32 Gabapentin 400 Mg Cap PO 800 mg TID YUSRA Administration Hydroxyzine Pamoate 50 mg 10/22/24 22:00 10/23/24 20:33 Hydroxyzine Pamoate 25 Mg Cap PO 50 mg TID YUSRA Administration Methylphenidate HCl 20 mg 10/22/24 22:00 10/23/24 20:31 Methylphenidate Hcl 10 Mg Tab PO 20 mg TID YUSRA Administration Mirtazapine 15 mg 10/22/24 21:00 10/23/24 20:32 Mirtazapine 15 Mg Tab PO 15 mg HS YUSRA Administration Morphine Sulfate 4 mg 10/22/24 13:11 10/23/24 19:27 Morphine Sulfate 4 Mg/Ml Syringe IV 4 mg Q4HR PRN Administration Severe Pain (Scale 7 to 10) Naloxone HCl 0.2 mg 10/22/24 12:54 Naloxone 0.4 Mg/Ml 1 Ml Vial IV Q2M PRN Opioid Reversal Nicotine 1 patch 10/22/24 19:45 10/23/24 09:49 Nicotine 7mg/24hr Patch TRANSDERM 1 patch DAILY YUSRA Administration Ondansetron HCl 4 mg 10/22/24 12:54 10/23/24 02:32 Ondansetron 4 Mg/2 Ml Vial IVP 4 mg Q8HR PRN Administration Nausea And Vomiting Pantoprazole Sodium 40 mg 10/23/24 07:30 10/23/24 09:49 Pantoprazole 40 Mg Tablet PO 40 mg [id number] YUSRA Administration Prazosin HCl 5 mg 10/22/24 21:00 10/23/24 20:32 Prazosin 1 Mg Cap PO 5 mg HS YUSRA Administration Risperidone 2 mg 10/22/24 21:00 10/23/24 20:30 Risperidone 2 Mg Tab PO 2 mg BID YUSRA Administration Tiotropium [place] 2 puff 10/22/24 08:00 10/23/24 10:42 Tiotropium 2.5 Mcg Inhaler INHALATION 2 puff RT-DAILY YUSRA Administration Intake and Output 10/23/24 10/23/24 10/23/24 06:59 14:59 22:59 Other: # Voids 3 Weight 73.482 kg Patient Weight 10/24/24 06:59 Weight 73.482 kg 10/22/24 11:40 10/22/24 11:40
--- NOTE | 2024-10-24 14:15 | P.PN ---
Subjective Progress Note Date: 10/24/24 SURGICAL PROGRESS NOTE CHIEF COMPLAINT: Chest pain and epigastric pain HISTORY OF PRESENT ILLNESS: Patient continues to report having the same chest pain and epigastric abdominal pain. She had an episode of vomiting this morning when they took her down for the stress test. Patient did eat breakfast. Stress test was canceled. She had a CT scan abdomen pelvis which reported no acute abdominal process. History of cholecystectomy. Afebrile. PHYSICAL EXAM: VITAL SIGNS: Reviewed. GENERAL: Well-developed in no acute distress. ABDOMEN: Soft. Nondistended. Tenderness epigastric area NEUROLOGIC: Alert and oriented. Cranial nerves II through XII grossly intact. ASSESSMENT: 1. Epigastric abdominal pain 2. Chest pain PLAN: -Further recommendations forthcoming per surgeon -Continue supportive care -Continue regular diet Physician Guest Service Representative note has been reviewed by physician. Signing provider agrees with the documented findings, assessment, and plan of care. I have personally seen and examined the patient, reviewed the CANVAS SHRINKER /PAs history, exam and MDM and agree with the assessment and plan as written. Based on total visit time, I have performed more than 50% of the visit. As above: Patient says she is having more chest pain today. Radiates to the left chest. She is undergoing cardiac workup. Mild abdominal tenderness epigastric region. No surgical etiology for pain noted on recent CAT scan. Consider outpatient EGD. Ideally recommend outpatient GI follow-up. Will sign off. Please reconsult if needed. Objective - Vital Signs Vital signs: Vital Signs Temp 97.8 F 10/24/24 07:00 Pulse 83 10/24/24 07:00 Resp 16 10/24/24 07:00 BP 103/75 10/24/24 07:00 Pulse Ox 94 L 10/24/24 07:00 FiO2 Intake & Output 10/23/24 10/24/24 10/24/24 18:59 06:59 18:59 Weight 73.482 kg Other: # Voids 3 0 - Labs CBC & Chem 7: 10/24/24 14:16 10/24/24 14:16
[2024-10-24 14:37] LABS: Basophils # (A) 0.1 k/uL (0-0.2); Basophils % (A) 1 %; Eosinophils # (A) 0.4 k/uL (0-0.7); Eosinophils % (A) 4 %; HCT 43.3 % (34.0-46.0); HGB 13.3 gm/dL (11.4-16.0); Lymphocytes # (A) 1.7 k/uL (1.0-4.8); Lymphocytes % (A) 17 %; MCH 28.9 pg (25.0-35.0); MCHC 30.7 g/dL (31.0-37.0); MCV 94.1 fL (80.0-100.0); Mean Platelet Volume 7.5; Monocytes # (A) 0.9 k/uL (0-1.0); Monocytes % (A) 9 %; Neutrophils # (A) 6.5 k/uL (1.3-7.7); Neutrophils % (A) 67 %; Platelet Count 301 k/uL (150-450); RDW 13.2 % (11.5-15.5); WBC 9.7 k/uL (3.8-10.6)
[2024-10-24 15:07] LABS: ALT 17 U/L (4-34); AST 16 U/L (14-36); African American GFR (CKD) 86 (>60 ml/min/1.73 sqM); Albumin 3.4 g/dL (3.5-5.0); Alkaline Phosphatase 104 U/L (38-126); Anion Gap 5 mmol/L; Blood Urea Nitrogen 9 mg/dL (7-17); Calcium 9.1 mg/dL (8.4-10.2); Carbon Dioxide 28 mmol/L (22-30); Chloride 106 mmol/L (98-107); Glucose 103 mg/dL (74-99); Non-African American GFR(CKD) 74 (>60 ml/min/1.73 sqM); Potassium 3.4 mmol/L (3.5-5.1); Sodium 139 mmol/L (137-145); Total Bilirubin 0.2 mg/dL (0.2-1.3); Total Protein 5.8 g/dL (6.3-8.2)
[2024-10-24] MEDS: PANTOPRAZOLE 40 MG/10 ML VIAL IVP SCH (15:37)
[2024-10-24] MEDS ORDERED: ONDANSETRON 4 MG/2 ML VIAL IVP PRN (15:48)
[2024-10-24 16:42] LABS: Amphetamine Screen,Urine Detected (NotDetected); Barbiturate Screen,Urine Not Detected (NotDetected); Benzodiazepines Screen,Urine Detected (NotDetected); Cocaine Screen,Urine Not Detected (NotDetected); Methadone Screen, Urine Not Detected (NotDetected); Opiate Screen,Urine Detected (NotDetected); Oxycodone Screen, Urine Not Detected (NotDetected); Phencyclidine Screen,Urine Not Detected (NotDetected); Tricyclic Antidepressant,Urine Not Detected (NotDetected); Urn Cannabinoid Scrn Not Detected (NotDetected)
[2024-10-24 17:51] LABS: Influenza A Not Detected (Not Detectd); Influenza B Not Detected (Not Detectd); RSV Not Detected (Not Detectd)
[2024-10-24] MEDS: SODIUM CHLORIDE 0.9% 1,000 ML IV SCH (18:15)
[2024-10-25] MEDS: METOCLOPRAMIDE 5 MG/ML 2 ML VIAL IVP PRN (01:34)
[2024-10-25] MEDS ORDERED: DOBUTamine DRIP for NUC MED 500 MG in DEXTROSE/WATER 1 250ML.BAG IV PRN (05:00)
--- NOTE | 2024-10-25 06:25 | P.PN ---
Subjective Progress Note Date: 10/24/24 This is a pleasant 54 years old female who presents because of chest pain for 3 hours duration about 8-9/10 in severity felt like stabbing and heaviness central radiating to the back No dyspnea no coughing. No specific GI/ symptom. No headache weakness or numbness. Patient states also have some dizziness for 3 hours She smokes about 3 cigarettes/day and she was counseled to quit and she agrees to the nicotine patch. No alcohol or illicit drugs. Vitals are stable and she is afebrile Labs are unremarkable including CBC, BMP, LFT, INR, troponin x 3 and urinalysis D-dimer negative at 0.36 Chest x-ray showing no acute process 10/23 Patient still complaining from left-sided chest pain, back pain and upper abdominal pain. She is requesting pain medication IV morphine specifically 4 mg and requesting to increase the frequency from every 4 hours down to every 3 hours. Patient however was seen walking in the hallway. Director [place] thinking of stress test and patient was an outpatient She has some mild epigastric pain and tenderness. She tolerates diet. We will consult surgery team as no GI service in this facility. Review of systems CONSTITUTIONAL: No fever, no malaise, no fatigue. HEENT: No recent visual problems or hearing problems. Denied any sore throat. HEMATOLOGICAL: Denies any bleeding or petechiae. GENITOURINARY: Denies any burning micturition, frequency, or urgency. ENDOCRINE: Denies any polyuria or polydipsia. 10/24/2024 Patient is seen in follow-up today being followed by general surgery as well as cardiology. Patient was scheduled to undergo stress testing this morning although had nausea with excessive vomiting and was canceled. Patient was evaluated by general surgery and no plans of surgical intervention and underwent CT abdomen which was negative. Will continue with antinausea medications and supportive care and recommend clear liquids and gentle hydration. Repeat labs in the a.m. and replace electrolytes per protocol Review of systems: Constitutional: No reports of fatigue, fever, or chills Cardiovascular: No reports of chest pain or palpitations Respiratory: No reports of shortness of breath or cough GI: reports of nausea, 2 episodes of vomiting, or diarrhea, reporting epigastric discomfort : No reports of dysuria or retention Neurovascular: No reports of weakness or numbness All medications have been reviewed Physical exam: Gen: This is a 54-year-old female who is awake, alert and oriented x 3, well- developed, obese HEENT: Head is atraumatic, normocephalic. Pupils equal, round. Sclerae is anicteric. NECK: Supple. No JVD. No lymphadenopathy. No thyromegaly. LUNGS: Clear to auscultation. No wheezes or rhonchi. No intercostal retractions. HEART: Regular rate and rhythm. No murmur. ABDOMEN: Soft. Obese. Mild epigastric upper abdominal tenderness on palpation bowel sounds are present. No masses. No tenderness. EXTREMITIES: No pedal edema. No calf tenderness. NEUROLOGICAL: Patient is awake, alert and oriented x3. Cranial nerves 2 through 12 are grossly intact. Assessment: Chest pain, could be musculoskeletal. Rule out cardiac causes. D-dimer negative at 0.36 Epigastric abdominal pain could be related to her chest pain and back pain. Patient having nausea and vomiting today, CT was negative Obesity with BMI of 31.6 Continued ongoing nicotine dependence COPD history, not in exacerbation GERD Hypertension Anxiety GI prophylaxis DVT prophylaxis Full code Plan: Continue with current medications and antinausea medications as patient was undergoing stress test and was having excessive vomiting and stress test was canceled. Will attempt per cardiology on 10/25/2024 Patient was evaluated by general surgery and underwent CT abdomen which was negative for acute process and no further interventions per surgery. Patient having these episodes of nausea and vomiting will hold aspirin, continue Protonix IV twice daily, and supportive care. Recommend clear liquids and n.p.o. at midnight for possible stress testing in a.m. Will follow-up with repeat labs in AM. Replace electrolytes per protocol Encouraged increase activity as tolerated Possible discharge planning in the next 24 hours The impression and plan of care has been dictated by Carmel Talbot, Nurse Practitioner as directed. Dr. Noel MD I have performed a history and examination and MDM of this patient, discussed the same with the dictator, and agree with the dictator's assessment and plan as written ,documented as a scribe. Based on total visit time, I have performed more than 50% of the visit. Objective - Vital Signs Vital signs: Vital Signs Temp 97.7 F 10/25/24 01:35 Pulse 81 10/25/24 01:35 Resp 17 10/25/24 01:35 BP 106/71 10/25/24 01:35 Pulse Ox 94 L 10/25/24 01:35 FiO2 Intake & Output 10/24/24 10/24/24 10/25/24 06:59 18:59 06:59 Output Total 4 Balance -4 Weight 73.482 kg Output: Urine 4 Other: # Voids 0 2 - Labs CBC & Chem 7: 10/24/24 14:16 10/24/24 14:16 Labs: Abnormal Lab Results - Last 24 Hours (Table) 10/24/24 10/24/24 10/24/24 Range/Units 14:16 14:16 15:56 MCHC 30.7 L (31.0-37.0) g/dL Potassium 3.4 L (3.5-5.1) mmol/L Glucose 103 H (74-99) mg/dL Total Protein 5.8 L (6.3-8.2) g/dL Albumin 3.4 L (3.5-5.0) g/dL Urine Opiates Screen Detected H (NotDetected) Ur Amphetamines Screen Detected H (NotDetected) U Benzodiazepines Scrn Detected H (NotDetected)
[2024-10-25 07:11] LABS: Basophils % (A) 0 %; Eosinophils # (A) 0.5 k/uL (0-0.7); Eosinophils % (A) 6 %; HCT 42.6 % (34.0-46.0); HGB 13.4 gm/dL (11.4-16.0); Hypochromasia Slight; Lymphocytes # (A) 2.4 k/uL (1.0-4.8); Lymphocytes % (A) 28 %; MCH 29.3 pg (25.0-35.0); MCHC 31.5 g/dL (31.0-37.0); MCV 93.1 fL (80.0-100.0); Mean Platelet Volume 7.9; Monocytes % (A) 12 %; Neutrophils # (A) 4.3 k/uL (1.3-7.7); Neutrophils % (A) 52 %; Platelet Count 300 k/uL (150-450); RBC 4.58 m/uL (3.80-5.40); RDW 12.9 % (11.5-15.5); WBC 8.4 k/uL (3.8-10.6)
[2024-10-25 07:21] LABS: ALT 17 U/L (4-34); AST 17 U/L (14-36); African American GFR (CKD) >90 (>60 ml/min/1.73 sqM); Albumin 3.1 g/dL (3.5-5.0); Alkaline Phosphatase 95 U/L (38-126); Anion Gap 3 mmol/L; Blood Urea Nitrogen 6 mg/dL (7-17); Calcium 9.2 mg/dL (8.4-10.2); Carbon Dioxide 28 mmol/L (22-30); Chloride 108 mmol/L (98-107); Glucose 91 mg/dL (74-99); Non-African American GFR(CKD) 83 (>60 ml/min/1.73 sqM); Potassium 3.9 mmol/L (3.5-5.1); Sodium 139 mmol/L (137-145); Total Bilirubin 0.3 mg/dL (0.2-1.3); Total Protein 5.5 g/dL (6.3-8.2)
[2024-10-25] MEDS ORDERED: DOBUTamine DRIP for NUC MED 500 MG/250 ML BAG IV ONE (08:00)
--- NOTE | 2024-10-25 11:15 | CA ---
Dobutamine Stress Echocardiogram Report Isabell Winston Age: 54 Gender: F : 1970 Exam Date: 10/25/2024 09:08 Exam Location: [facility] Ordering Physician: Jer Cedillo MD ([id number]) Referring Physician: SHABNAM/FIONA,, Commercial Roofer: CHEY Technologist: Ht (in): 60 Wt (lb): 162 Procedure CPT: Indication: CP, CAD, abnormal ECG ICD-9 Codes: Rhythm: Patient History: CHEST PAIN, EUN, PALPITATIONS, NUMBNESS IN FACE/NECK, HTN, CURRENT SMOKER 0.25 X 40 YEARS, PRIOR HEART CATH Cardiac Medications: Medications in past 24 hours: Contrast: Definity Total Dose (mL): Stress Results Protocol: Dobutamine Peak Dose (???g/kg/min): 40 Duration (min:sec): Atropine:(mg) N/A Target HR: 139 Double Product: [id number] Resting HR: 78 Resting BP: 121 / 89 Peak HR: 131 Peak BP: 156 / 88 Max Predicted HR: 164 80 % Max Predicted HR Stress Summary: BP Response: Reason for Termination: TARGET HR Cardiac Symptoms: NO SYMPTOMS ECG Analysis Resting EKG: Stress EKG: Arrhythmia: Echo Analysis Base Echo Analysis: Low Echo Anaylsis: Peak Echo Analysis: Recovery Echo: MEASUREMENTS (Male/Female) Normal Values CONCLUSIONS Indication for procedure recurrent chest discomfort evaluate for CAD, abnormal EKG Dobutamine stress echo with Definity contrast shows no ECG evidence for ischemia, no echocardiographic evidence for ischemia. Contrast echo employed. Normal heart rate and blood pressure response No arrhythmias Dr. Jer Cedillo MD (Electronically Signed) Final Date: 25 October 2024 11:14
--- NOTE | 2024-10-25 11:44 | P.PN ---
Subjective Progress Note Date: 10/25/24 The patient was interviewed and examined Impression Chest back and upper abdominal discomfort, resolved Relieved with pain medications requesting more medications Known nonobstructive CAD Not taking any statins Continues to smoke Abnormal EKG with T wave inversions in the precordial leads Normal cardiac enzymes no evidence for acute myocardial infarction Plan Atorvastatin aspirin to continue Noncardiac pain to be addressed by internal medicine Dobutamine stress echocardiogram today Smoking cessation advised If stress test is unremarkable, patient is cleared for discharge My impression is this is noncardiac chest discomfort HPI Patient presented with recurrent chest discomfort and is requesting morphine Her EKG is abnormal with T wave inversions Her cardiac enzymes are normal She looks comfortable but yet complaining of pain and asking for more morphine EXAMINATION: 124/86, pulse rate 88 afebrile Breath sounds are clear no rhonchi no crackles Heart sounds are normal REVIEW OF LABS, ECG & MEDICAL DATA 3 normal cardiac enzymes Elevated triglycerides of 212 total cholesterol 198 LDL of 115 and HDL of 41 Objective - Vital Signs Vital signs: Vital Signs Temp 98.7 F 10/25/24 07:00 Pulse 88 10/25/24 07:00 Resp 16 10/25/24 07:00 BP 124/86 10/25/24 07:00 Pulse Ox 97 10/25/24 07:00 FiO2 Intake & Output 10/24/24 10/25/24 10/25/24 18:59 06:59 18:59 Output Total 4 Balance -4 Output: Urine 4 Other: # Voids 2 - Labs CBC & Chem 7: 10/25/24 06:36 10/25/24 06:36 Labs: Abnormal Lab Results - Last 24 Hours (Table) 10/24/24 10/24/24 10/24/24 Range/Units 14:16 14:16 15:56 MCHC 30.7 L (31.0-37.0) g/dL Potassium 3.4 L (3.5-5.1) mmol/L Chloride (98-107) mmol/L BUN (7-17) mg/dL Glucose 103 H (74-99) mg/dL Total Protein 5.8 L (6.3-8.2) g/dL Albumin 3.4 L (3.5-5.0) g/dL Urine Opiates Screen Detected H (NotDetected) Ur Amphetamines Screen Detected H (NotDetected) U Benzodiazepines Scrn Detected H (NotDetected) 10/25/24 Range/Units 06:36 MCHC (31.0-37.0) g/dL Potassium (3.5-5.1) mmol/L Chloride 108 H (98-107) mmol/L BUN 6 L (7-17) mg/dL Glucose (74-99) mg/dL Total Protein 5.5 L (6.3-8.2) g/dL Albumin 3.1 L (3.5-5.0) g/dL Urine Opiates Screen (NotDetected) Ur Amphetamines Screen (NotDetected) U Benzodiazepines Scrn (NotDetected)
--- NOTE | 2024-10-25 18:50 | P.PN ---
Subjective Progress Note Date: 10/25/24 This is a pleasant 54 years old female who presents because of chest pain for 3 hours duration about 8-9/10 in severity felt like stabbing and heaviness central radiating to the back No dyspnea no coughing. No specific GI/ symptom. No headache weakness or numbness. Patient states also have some dizziness for 3 hours She smokes about 3 cigarettes/day and she was counseled to quit and she agrees to the nicotine patch. No alcohol or illicit drugs. Vitals are stable and she is afebrile Labs are unremarkable including CBC, BMP, LFT, INR, troponin x 3 and urinalysis D-dimer negative at 0.36 Chest x-ray showing no acute process 10/23 Patient still complaining from left-sided chest pain, back pain and upper abdominal pain. She is requesting pain medication IV morphine specifically 4 mg and requesting to increase the frequency from every 4 hours down to every 3 hours. Patient however was seen walking in the hallway. Deckhand Oyster Dredge thinking of stress test and patient was an outpatient She has some mild epigastric pain and tenderness. She tolerates diet. We will consult surgery team as no GI service in this facility. Review of systems CONSTITUTIONAL: No fever, no malaise, no fatigue. HEENT: No recent visual problems or hearing problems. Denied any sore throat. HEMATOLOGICAL: Denies any bleeding or petechiae. GENITOURINARY: Denies any burning micturition, frequency, or urgency. ENDOCRINE: Denies any polyuria or polydipsia. 10/24/2024 Patient is seen in follow-up today being followed by general surgery as well as cardiology. Patient was scheduled to undergo stress testing this morning although had nausea with excessive vomiting and was canceled. Patient was evaluated by general surgery and no plans of surgical intervention and underwent CT abdomen which was negative. Will continue with antinausea medications and supportive care and recommend clear liquids and gentle hydration. Repeat labs in the a.m. and replace electrolytes per protocol 10/25/2024 patient is seen and evaluated in follow-up today with cardiology following. Patient was n.p.o. this morning and underwent stress test currently pending report. Patient continues to report abdominal discomfort although is asking for an advance in diet as patient was clear liquids yesterday. No further vomiting noted and will slowly advance and monitor for diet tolerance. Encouraged increase activity as tolerated and will follow-up on a.m. labs. Review of systems: Constitutional: No reports of fatigue, fever, or chills Cardiovascular: No reports of chest pain or palpitations Respiratory: No reports of shortness of breath or cough GI: reports of occasional nausea, no further today episodes of vomiting, or diarrhea, reporting epigastric discomfort, slightly improved : No reports of dysuria or retention Neurovascular: No reports of weakness or numbness All medications have been reviewed Physical exam: Gen: This is a 54-year-old female who is awake, alert and oriented x 3, well- developed, obese, anxious on all functional words HEENT: Head is atraumatic, normocephalic. Pupils equal, round. Sclerae is anicteric. NECK: Supple. No JVD. No lymphadenopathy. No thyromegaly. LUNGS: Clear to auscultation. No wheezes or rhonchi. No intercostal retractions. HEART: Regular rate and rhythm. No murmur. ABDOMEN: Soft. Obese. Mild epigastric upper abdominal tenderness on palpation bowel sounds are present. No masses. No tenderness. EXTREMITIES: No pedal edema. No calf tenderness. NEUROLOGICAL: Patient is awake, alert and oriented x3. Cranial nerves 2 through 12 are grossly intact. Assessment: Chest pain, likely musculoskeletal. ACS ruled out. D-dimer negative at 0.36, status post stress testing which was negative Epigastric abdominal pain could be related to her chest pain and back pain, likely acute gastritis, CT abdomen negative for acute process Obesity with BMI of 31.6 Continued ongoing nicotine dependence COPD history, not in exacerbation GERD Hypertension Anxiety GI prophylaxis DVT prophylaxis Full code Plan: Continue with current medications and antinausea medications as patient underwent stress test and has been cleared by cardiology Patient continues to report epigastric discomfort with occasional nausea although no vomiting today. Advancing diet. Will discontinue morphine as needed nausea medications Encouraged increase activity as tolerated Recommend repeat labs in the a.m. Patient was evaluated by general surgery and underwent CT abdomen which was negative for acute process and no further interventions per surgery. Continue Protonix IV twice daily, and supportive care. Will monitor for advance diet tolerance and discuss possible discharge planning in the next 24 hours Will follow-up with repeat labs in AM. Replace electrolytes per protocol Encouraged increase activity as tolerated Due to multiple complex medical issues, overall prognosis is guarded The impression and plan of care has been dictated by Carmel Talbot, Nurse Pr actitioner as directed. Dr. Noel MD I have performed a history and examination and MDM of this patient, discussed the same with the dictator, and agree with the dictator's assessment and plan as written ,documented as a scribe. Based on total visit time, I have performed more than 50% of the visit. Objective - Vital Signs Vital signs: Vital Signs Temp 98.8 F 10/25/24 15:00 Pulse 91 10/25/24 15:00 Resp 16 10/25/24 15:00 BP 151/92 10/25/24 15:00 Pulse Ox 97 10/25/24 15:00 FiO2 Intake & Output 10/24/24 10/25/24 10/25/24 18:59 06:59 18:59 Intake Total 480 Output Total 4 Balance -4 480 Intake: Oral 480 Output: Urine 4 Other: # Voids 2 2 - Labs CBC & Chem 7: 10/25/24 06:36 10/25/24 06:36 Labs: Abnormal Lab Results - Last 24 Hours (Table) 10/25/24 10/25/24 Range/Units 06:36 06:36 Chloride 108 H (98-107) mmol/L BUN 6 L (7-17) mg/dL C-Reactive Protein 1.8 H (<1.0) mg/dL Total Protein 5.5 L (6.3-8.2) g/dL Albumin 3.1 L (3.5-5.0) g/dL
[2024-10-25] MEDS: HYDROmorphone 0.5 MG/0.5 ML SYRINGE IVP PRN (20:48)
[2024-10-26 04:39] LABS: African American GFR (CKD) 88 (>60 ml/min/1.73 sqM); Anion Gap 6 mmol/L; Blood Urea Nitrogen 8 mg/dL (7-17); Calcium 9.3 mg/dL (8.4-10.2); Carbon Dioxide 27 mmol/L (22-30); Chloride 105 mmol/L (98-107); Glucose 119 mg/dL (74-99); Magnesium 1.6 mg/dL (1.6-2.3); Non-African American GFR(CKD) 76 (>60 ml/min/1.73 sqM); Potassium 3.7 mmol/L (3.5-5.1); Sodium 138 mmol/L (137-145)
--- NOTE | 2024-10-26 15:46 | P.GSCN ---
History of Present Illness Consult date: 10/26/24 History of present illness: CHIEF COMPLAINT: Chest pain and abdominal pain HISTORY OF PRESENT ILLNESS: This is a 54-year-old female who presented with chest pain that radiated down her arm and into her back. She also been complaining of epigastric abdominal pain. Patient reported that the epigastric pain had been ongoing for about 6 months. Patient seen by cardiology service and had stress test completed which was negative and patient was cleared by cardiology for discharge. Surgical service had been following. She had a CT scan of the abdomen pelvis that was negative. She has been tolerating diet. Per nursing staff patient is eating 100% of her meals with snacks in between. They have not witnessed any vomiting. Patient states that she has been vomiting at every other meal. She continues to complain of epigastric pain. She has not shown any of the emesis to the nursing staff. Per nursing patient is still requesting the IV Dilaudid. Patient reports having regular bowel movements. She has a history of a cholecystectomy.Her last EGD was in 2018 that had reported duodenitis, gastritis, small hiatal hernia and esophagitis. PAST MEDICAL HISTORY: COPD, GERD/Reflux, Hypertension, Pneumonia, chronic back pain, lumbar degenerative disc disease, insomnia, hx shingles, hiatal hernia, kidney stones. 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 REVIEW OF SYSTEMS: CONSTITUTIONAL: Denies fever or chills. HEENT: Denies blurred vision, vision changes, or eye pain. Denies hemoptysis CARDIOVASCULAR: Denies chest pain or pressure. RESPIRATORY: No shortness of breath. GASTROINTESTINAL: See HPI for pertinent findings HEMATOLOGIC: Denies bleeding disorders. GENITOURINARY: Denies any blood in urine or increased urinary frequency. SKIN: Denies pruitis. Denies rash. PHYSICAL EXAM: VITAL SIGNS: Reviewed GENERAL: Well-developed in no acute distress. HEENT: No sclera icterus. Extraocular movements grossly intact. Moist buccal mucosa. Head is atraumatic, normocephalic. No nasal drainage. ABDOMEN: Soft. Obese. Nondistended. Epigastric tenderness with palpation NEUROLOGIC: Alert and oriented. Cranial nerves II through XII grossly intact. LABORATORY DATA: WBC 8.4 Hgb 13.4 platelets 300 Sodium is 138 potassium 3.7 creatinine 0.86 Magnesium 1.6 IMAGING: CT scan abdomen pelvis reports no acute abdominal process ASSESSMENT: 1. Epigastric abdominal pain 2. Hypomagnesemia PLAN: -Patient scheduled for EGD with Dr. Bush on 10/30/2024 -Continue supportive care -Replace magnesium. Recheck magnesium level in a.m. Physician Accredited Legal Secretary note has been reviewed by physician. Signing provider agrees with the documented findings, assessment, and plan of care. Past Medical History Past Medical History: COPD, GERD/Reflux, Hypertension, Pneumonia Additional Past Medical History / Comment(s): chronic back pain, lumbar degenerative disc disease, insomnia, hx shingles, hiatal hernia, kidney stones. 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, migraines,; NECK PAIN , Rabies 09/17 Last Myocardial Infarction Date:: 08/27/2016 History of Any Multi-Drug Resistant Organisms: MRSA Year Discovered:: 09/22/09 MDRO Source:: neck Past Surgical History: Appendectomy, Back Surgery, Section, Cholecystectomy, Orthopedic Surgery Additional Past Surgical History / Comment(s): Cervical spine fusion with insertion of a metal plate, EGD, colonoscopy, radiofrequency ablation, Past Anesthesia/Blood Transfusion Reactions: No Reported Reaction Additional Past Anesthesia/Blood Transfusion Reaction / Comm: CLAUSTROPHOBIA Past Psychological History: ADD/ADHD, Anxiety, Panic Disorder Additional Psychological History / Comment(s): PT LIVES WITH SIG OTHER OF 25 YEARS. Smoking Status: Current every day smoker Past Alcohol Use History: None Reported Additional Past Alcohol Use History / Comment(s): PATIENT STATES SHE STARTED SMOKING AT AGE 16 SMOKES 4 CIG PER DAY Past Drug Use History: None Reported - Past Family History Father Family Medical History: Cancer Additional Family Medical History / Comment(s): Father at age 48 from lung cancer. Mother Family Medical History: Congestive Heart Failure (CHF), CVA/TIA Additional Family Medical History / Comment(s): Mother is alive at age 68. She has suffered from a CVA and has chronic back problems. Patient has 2 brothers and 4 sisters with no major medical problems. Medications and Allergies Home Medications Medication Instructions Recorded Confirmed Type clonazePAM [KlonoPIN] 0.5 mg PO BID PRN 10/23/19 10/22/24 History Methylphenidate HCl [Ritalin] 20 mg PO TID 04/07/23 10/22/24 History Prazosin [Minipress] 5 mg PO HS 04/07/23 10/22/24 History hydrOXYzine pamoate [Vistaril] 50 mg PO TID 04/07/23 10/22/24 History Albuterol Inhaler [Ventolin Hfa 2 puff INHALATION RT-Q4H PRN 09/30/23 10/22/24 History Inhaler] Gabapentin 800 mg PO TID 09/30/23 10/22/24 History risperiDONE 2 mg PO BID 09/30/23 10/22/24 History Mirtazapine [Remeron] 15 mg PO HS 10/22/24 10/22/24 History Tiotropium 2.5 Mcg/Puff [Spiriva 2 puff INHALATION RT-DAILY PRN 10/22/24 10/22/24 History Respimat 2.5 Mcg] busPIRone HCL 15 mg PO TID 10/22/24 10/22/24 History Allergies Allergy/AdvReac Type Severity Reaction Status Date / Time ibuprofen Allergy Anaphylaxis Verified 10/22/24 15:37 ketorolac [From Toradol] Allergy Anaphylaxis Verified 10/22/24 15:37 shellfish derived Allergy Anaphylaxis Verified 10/22/24 15:37 tramadol [From Ultram] Allergy Anaphylaxis Verified 10/22/24 15:37 Surgical - Exam Vital Signs Temp Pulse Resp BP Pulse Ox 98.3 F 90 17 129/89 98 10/22/24 11:20 10/22/24 11:20 10/22/24 11:20 10/22/24 11:20 10/22/24 11:20 Results - Labs 10/25/24 06:36 10/26/24 03:24 Abnormal Lab Results - Last 24 Hours (Table) 10/25/24 10/26/24 Range/Units 06:36 03:24 Glucose 119 H (74-99) mg/dL C-Reactive Protein 1.8 H (<1.0) mg/dL Diabetes panel 10/26/24 Range/Units 03:24 Sodium 138 (137-145) mmol/L Potassium 3.7 (3.5-5.1) mmol/L Chloride 105 (98-107) mmol/L Carbon Dioxide 27 (22-30) mmol/L BUN 8 (7-17) mg/dL Creatinine 0.86 (0.52-1.04) mg/dL Glucose 119 H (74-99) mg/dL Calcium 9.3 (8.4-10.2) mg/dL Calcium panel 10/26/24 Range/Units 03:24 Calcium 9.3 (8.4-10.2) mg/dL Pituitary panel 10/26/24 Range/Units 03:24 Sodium 138 (137-145) mmol/L Potassium 3.7 (3.5-5.1) mmol/L Chloride 105 (98-107) mmol/L Carbon Dioxide 27 (22-30) mmol/L BUN 8 (7-17) mg/dL Creatinine 0.86 (0.52-1.04) mg/dL Glucose 119 H (74-99) mg/dL Calcium 9.3 (8.4-10.2) mg/dL Adrenal panel 10/26/24 Range/Units 03:24 Sodium 138 (137-145) mmol/L Potassium 3.7 (3.5-5.1) mmol/L Chloride 105 (98-107) mmol/L Carbon Dioxide 27 (22-30) mmol/L BUN 8 (7-17) mg/dL Creatinine 0.86 (0.52-1.04) mg/dL Glucose 119 H (74-99) mg/dL Calcium 9.3 (8.4-10.2) mg/dL
[2024-10-26] MEDS: MAGNESIUM SULFATE-D5W PMX 1 GM in DEXTROSE/WATER 1 100ML.BAG IVPB ONE (16:46)
[2024-10-26] MEDS: HYDROmorphone 0.5 MG/0.5 ML SYRINGE IVP PRN (20:25)
[2024-10-27 01:41] VITALS: TEMP 98
[2024-10-27 04:52] LABS: Basophils % (A) 0 %; Eosinophils # (A) 0.5 k/uL (0-0.7); Eosinophils % (A) 6 %; HCT 44.4 % (34.0-46.0); HGB 14.3 gm/dL (11.4-16.0); Lymphocytes # (A) 2.3 k/uL (1.0-4.8); Lymphocytes % (A) 28 %; MCH 29.8 pg (25.0-35.0); MCHC 32.3 g/dL (31.0-37.0); MCV 92.2 fL (80.0-100.0); Mean Platelet Volume 7.5; Monocytes # (A) 0.9 k/uL (0-1.0); Monocytes % (A) 11 %; Neutrophils # (A) 4.2 k/uL (1.3-7.7); Neutrophils % (A) 52 %; Platelet Count 310 k/uL (150-450); RBC 4.82 m/uL (3.80-5.40); RDW 12.8 % (11.5-15.5); WBC 8.1 k/uL (3.8-10.6)
[2024-10-27 05:15] LABS: African American GFR (CKD) >90 (>60 ml/min/1.73 sqM); Anion Gap 8 mmol/L; Blood Urea Nitrogen 10 mg/dL (7-17); Calcium 9.6 mg/dL (8.4-10.2); Carbon Dioxide 26 mmol/L (22-30); Chloride 106 mmol/L (98-107); Glucose 101 mg/dL (74-99); Magnesium 1.8 mg/dL (1.6-2.3); Non-African American GFR(CKD) 90 (>60 ml/min/1.73 sqM); Potassium 3.8 mmol/L (3.5-5.1); Sodium 140 mmol/L (137-145)
--- NOTE | 2024-10-27 05:52 | P.PN ---
Subjective Progress Note Date: 10/26/24 This is a pleasant 54 years old female who presents because of chest pain for 3 hours duration about 8-9/10 in severity felt like stabbing and heaviness central radiating to the back No dyspnea no coughing. No specific GI/ symptom. No headache weakness or numbness. Patient states also have some dizziness for 3 hours She smokes about 3 cigarettes/day and she was counseled to quit and she agrees to the nicotine patch. No alcohol or illicit drugs. Vitals are stable and she is afebrile Labs are unremarkable including CBC, BMP, LFT, INR, troponin x 3 and urinalysis D-dimer negative at 0.36 Chest x-ray showing no acute process 10/23 Patient still complaining from left-sided chest pain, back pain and upper abdominal pain. She is requesting pain medication IV morphine specifically 4 mg and requesting to increase the frequency from every 4 hours down to every 3 hours. Patient however was seen walking in the hallway. Ripsaw Grader thinking of stress test and patient was an outpatient She has some mild epigastric pain and tenderness. She tolerates diet. We will consult surgery team as no GI service in this facility. Review of systems CONSTITUTIONAL: No fever, no malaise, no fatigue. HEENT: No recent visual problems or hearing problems. Denied any sore throat. HEMATOLOGICAL: Denies any bleeding or petechiae. GENITOURINARY: Denies any burning micturition, frequency, or urgency. ENDOCRINE: Denies any polyuria or polydipsia. 10/24/2024 Patient is seen in follow-up today being followed by general surgery as well as cardiology. Patient was scheduled to undergo stress testing this morning although had nausea with excessive vomiting and was canceled. Patient was evaluated by general surgery and no plans of surgical intervention and underwent CT abdomen which was negative. Will continue with antinausea medications and supportive care and recommend clear liquids and gentle hydration. Repeat labs in the a.m. and replace electrolytes per protocol 10/25/2024 patient is seen and evaluated in follow-up today with cardiology following. Patient was n.p.o. this morning and underwent stress test currently pending report. Patient continues to report abdominal discomfort although is asking for an advance in diet as patient was clear liquids yesterday. No further vomiting noted and will slowly advance and monitor for diet tolerance. Encouraged increase activity as tolerated and will follow-up on a.m. labs. 10/26/2024 Patient is seen in follow-up today continues to report abdominal pain and reporting that after each meal she has been having some vomiting although has not been showing nursing staff and was not requesting anything for nausea. Patient did undergo stress testing with cardiology and has been cleared for discharge although continues to report significant upper epigastric abdominal pain. Will reconsult surgery to evaluate for possible need of EGD. Patient is afebrile with no reports of chest pain or shortness of breath. Per nursing staff patient is also requesting IV pain medications [id number]. Review of systems: Constitutional: No reports of fatigue, fever, or chills Cardiovascular: No reports of chest pain or palpitations Respiratory: No reports of shortness of breath or cough GI: reports of occasional nausea, reports multiple episodes of vomiting unwitnessed, or diarrhea, reporting epigastric discomfort, reporting feeling worse than when she came in : No reports of dysuria or retention Neurovascular: No reports of weakness or numbness All medications have been reviewed Physical exam: Gen: This is a 54-year-old female who is awake, alert and oriented x 3, well- developed, obese, anxious on exam HEENT: Head is atraumatic, normocephalic. Pupils equal, round. Sclerae is anicteric. NECK: Supple. No JVD. No lymphadenopathy. No thyromegaly. LUNGS: Clear to auscultation. No wheezes or rhonchi. No intercostal retractions. HEART: Regular rate and rhythm. No murmur. ABDOMEN: Soft. Obese. Mild epigastric upper abdominal tenderness on palpation bowel sounds are present. No masses. Reports of abdominal tenderness. EXTREMITIES: No pedal edema. No calf tenderness. NEUROLOGICAL: Patient is awake, alert and oriented x3. Cranial nerves 2 through 12 are grossly intact. Assessment: Chest pain, likely musculoskeletal. ACS ruled out. D-dimer negative at 0.36, status post stress testing which was negative Epigastric abdominal pain could be related to her chest pain and back pain, likely acute gastritis, CT abdomen negative for acute process Obesity with BMI of 31.6 Continued ongoing nicotine dependence COPD history, not in exacerbation GERD Hypertension Anxiety GI prophylaxis DVT prophylaxis Full code Plan: Continue with current medications and antinausea medications as patient underwent stress test and has been cleared by cardiology Patient continues to report epigastric discomfort with occasional nausea and now reports multiple episodes of vomiting and increased pain after eating. Per nursing staff patient is completing all of her meals. Continue with nausea medications. Per nursing staff patient has been requesting IV pain medications [id number] Encouraged increase activity as tolerated Recommend repeat labs in the a.m. Patient was evaluated by general surgery and underwent CT abdomen which was negative for acute process and no further interventions per surgery. Patient continues to report this pain and will reconsult general surgery for possible need for EGD. Surgery did evaluate and patient will be undergoing EGD on 10/30/2024 Continue Protonix IV twice daily, and supportive care. If continuing to have pain recommend decreasing diet to clear liquids and/or n.p.o. Encouraged increase activity as tolerated Due to multiple complex medical issues, overall prognosis is guarded The impression and plan of care has been dictated by Carmel Talbot, Nurse Practitioner as directed. Dr. Noel MD I have performed a history and examination and MDM of this patient, discussed the same with the dictator, and agree with the dictator's assessment and plan a s written ,documented as a scribe. Based on total visit time, I have performed more than 50% of the visit. Objective - Vital Signs Vital signs: Vital Signs Temp 98.0 F 10/27/24 01:40 Pulse 85 10/27/24 01:40 Resp 17 10/27/24 01:40 BP 128/79 10/27/24 01:40 Pulse Ox 97 10/27/24 01:40 FiO2 Intake & Output 10/26/24 10/26/24 10/27/24 06:59 18:59 06:59 Intake Total 1800 Balance 1800 Intake: Intake, IV Titration 720 Amount Sodium Chloride 0.9% 1, 720 000 ml @ 60 mls/hr IV . [id number] [facility] Rx#:[id number] Oral 1080 Other: Voiding Method Toilet # Voids 1 3 - Labs CBC & Chem 7: 10/27/24 04:04 10/27/24 04:04 Labs: Abnormal Lab Results - Last 24 Hours (Table) 10/27/24 Range/Units 04:04 Glucose 101 H (74-99) mg/dL
[2024-10-27 09:21] VITALS: BP 158/97; PULSE 83; RESP 18
--- NOTE | 2024-10-27 11:15 | P.PN ---
Subjective Progress Note Date: 10/27/24 SURGICAL PROGRESS NOTE CHIEF COMPLAINT: Chest pain and epigastric pain HISTORY OF PRESENT ILLNESS: Patient reports she is feeling better. She is able to tolerate diet. She would like to go home and have EGD done outpatient. Vital stable PHYSICAL EXAM: VITAL SIGNS: Reviewed. GENERAL: Well-developed in no acute distress. ABDOMEN: Soft. Nondistended. NEUROLOGIC: Alert and oriented. Cranial nerves II through XII grossly intact. ASSESSMENT: 1. Epigastric abdominal pain 2. Chest pain PLAN: -Patient can be discharged from surgical standpoint -Patient scheduled for EGD outpatient on Wednesday with Dr. Bush Physician Brick Kiln Worker note has been reviewed by physician. Signing provider agrees with the documented findings, assessment, and plan of care. Objective - Vital Signs Vital signs: Vital Signs Temp 98.0 F 10/27/24 01:40 Pulse 83 10/27/24 08:00 Resp 18 10/27/24 08:00 BP 158/97 10/27/24 08:00 Pulse Ox 94 L 10/27/24 08:00 FiO2 Intake & Output 10/26/24 10/27/24 10/27/24 18:59 06:59 18:59 Intake Total 1800 Balance 1800 Intake: Intake, IV Titration 720 Amount Sodium Chloride 0.9% 1, 720 000 ml @ 60 mls/hr IV . [id number] [id number] Rx#:[id number] Oral 1080 Other: Voiding Method Toilet Toilet # Voids 3 - Labs CBC & Chem 7: 10/27/24 04:04 10/27/24 04:04 Labs: Abnormal Lab Results - Last 24 Hours (Table) 10/27/24 Range/Units 04:04 Glucose 101 H (74-99) mg/dL
--- NOTE | 2024-10-29 12:39 | P.DS ---
Providers Date of admission: 10/22/24 12:52 Expected date of discharge: 10/27/24 Attending physician: Jose Martinez MD Consults: 10/22/24 12:54 Consult Physician Urgent Consulting Provider: Dillon Milner Consult Reason/Comments: Chest pain Do you want consulting provider notified?: Yes 10/26/24 13:23 Consult Physician Urgent Consulting Provider: Nacho Bush Consult Reason/Comments: continued abd pain, ??egd? Do you want consulting provider notified?: Yes Primary care physician: Estelle Butterfield Hospital Course: Final diagnosis Chest pain, likely musculoskeletal. ACS ruled out. D-dimer negative at 0.36, status post stress testing which was negative Epigastric abdominal pain could be related to her chest pain and back pain, likely acute gastritis, CT abdomen negative for acute process Obesity with BMI of 31.6 Continued ongoing nicotine dependence COPD history, not in exacerbation GERD Hypertension Anxiety GI prophylaxis DVT prophylaxis Full code Discharge disposition Patient is being discharged in a stable condition with guarded prognosis to home. Patient will follow-up with Dr. Butterfield in the outpatient setting upon discharge. Patient is to continue with soft diet and close outpatient follow-up with general surgery for EGD on Wednesday as scheduled. Also recommend outpatient follow-up with GI. Total time taken is greater than 35 minutes. Hospital course This is a 54-year-old female who was recently admitted with epigastric chest pain evaluated by cardiology underwent stress testing which was negative. Patient continued to have persistent epigastric abdominal pain noted to have nausea and vomiting initially evaluated by general surgery with no plans of intervention. Patient continued to have persistent abdominal discomfort and vomiting after meals was reevaluated by surgery recommending EGD. Patient is tolerating some diet with no further vomiting noted and will be planning for EGD outpatient. Also instructed patient to follow-up with GI in the outpatient setting as well. Patient has been cleared by consultations and recommend outpatient follow-up with cardiology as well. Please refer to other consultation notes for further HPI. Currently no reports of chest pain, shortness of breath, or palpitations. Patient is afebrile. No reports of nausea or vomiting and patient is tolerating diet. Patient will be discharged home today. Guarded prognosis. Physical exam: Gen: This is a 54-year-old female who is awake, alert oriented x 3, well- developed, obese, appears older than stated age HEENT: Head is atraumatic, normocephalic. Pupils equal, round. Sclerae is anicteric. NECK: Supple. No JVD. No lymphadenopathy. No thyromegaly. LUNGS: Diminished breath sounds bilaterally otherwise clear to auscultation. No wheezes or rhonchi. No intercostal retractions. HEART: S1, S2 are muffled ABDOMEN: Soft. Obese bowel sounds are present. No masses. Mild tenderness of epigastric region on palpation. EXTREMITIES: No pedal edema. No calf tenderness. NEUROLOGICAL: Patient is awake, alert and oriented x3. Cranial nerves 2 through 12 are grossly intact. Please refer to medication reconciliation sheet for a list of medications. The impression and plan of care has been dictated by Carmel Talbot, Nurse Practitioner as directed. Dr. Noel MD I have performed a history and examination and MDM of this patient, discussed the same with the dictator, and agree with the dictator's assessment and plan as written ,documented as a scribe. Based on total visit time, I have performed more than 50% of the visit. Patient Condition at Discharge: Fair Plan - Discharge Summary Discharge Rx Participant: Yes New Discharge Prescriptions: New Atorvastatin [Lipitor] 20 mg PO DAILY #30 tab Acetaminophen Tab [Tylenol] 650 mg PO Q6HR PRN #30 tab PRN Reason: Mild Pain Or Fever > 100.5 Pantoprazole [Protonix] 40 mg PO DAILY #30 tab Ondansetron Odt [Zofran Odt] 4 mg PO Q8HR PRN #10 tab PRN Reason: Nausea Continue clonazePAM [KlonoPIN] 0.5 mg PO BID PRN PRN Reason: Severe Anxiety Methylphenidate HCl [Ritalin] 20 mg PO TID Prazosin [Minipress] 5 mg PO HS hydrOXYzine pamoate [Vistaril] 50 mg PO TID Gabapentin 800 mg PO TID Albuterol Inhaler [Ventolin Hfa Inhaler] 2 puff INHALATION RT-Q4H PRN PRN Reason: Shortness Of Breath risperiDONE 2 mg PO BID busPIRone HCL 15 mg PO TID Mirtazapine [Remeron] 15 mg PO HS Tiotropium 2.5 Mcg/Puff [Spiriva Respimat 2.5 Mcg] 2 puff INHALATION RT-DAILY PRN PRN Reason: Shortness Of Breath Discharge Medication List clonazePAM [KlonoPIN] 0.5 mg PO BID PRN 10/23/19 [History] Methylphenidate HCl [Ritalin] 20 mg PO TID 04/07/23 [History] Prazosin [Minipress] 5 mg PO HS 04/07/23 [History] hydrOXYzine pamoate [Vistaril] 50 mg PO TID 04/07/23 [History] Albuterol Inhaler [Ventolin Hfa Inhaler] 2 puff INHALATION RT-Q4H PRN 09/30/23 [History] Gabapentin 800 mg PO TID 09/30/23 [History] risperiDONE 2 mg PO BID 09/30/23 [History] Mirtazapine [Remeron] 15 mg PO HS 10/22/24 [History] Tiotropium 2.5 Mcg/Puff [Spiriva Respimat 2.5 Mcg] 2 puff INHALATION RT-DAILY PRN 10/22/24 [History] busPIRone HCL 15 mg PO TID 10/22/24 [History] Acetaminophen Tab [Tylenol] 650 mg PO Q6HR PRN #30 tab 10/27/24 [Rx] Atorvastatin [Lipitor] 20 mg PO DAILY #30 tab 10/27/24 [Rx] Ondansetron Odt [Zofran Odt] 4 mg PO Q8HR PRN #10 tab 10/27/24 [Rx] Pantoprazole [Protonix] 40 mg PO DAILY #30 tab 10/27/24 [Rx] Follow up Appointment(s)/Referral(s): Estelle Butterfield DO [Primary Care Provider] - 1-2 days Nacho Bush MD [STAFF PHYSICIAN] - 10/30/24 Activity/Diet/Wound Care/Special Instructions: Patient to have EGD on 10/30/[address] Bush. Scheduling will contact patient regarding time of procedure. Patient to be n.p.o. after midnight on 10/29/2024. Recommend to continue with clear liquids and/or full liquid diet until EGD on Wednesday No Pop, chips, Candy until discussing with surgeon Follow-up with cardiology outpatient Follow-up with primary care provider on discharge Discharge Disposition: HOME SELF-CARE
== END 2024-10-27 14:30 | disposition home or self-care (01) | DRG 313 ==
LOC: EC 11:19 → 6NMEDSUR 12:51 → OBSVTOIN 12:52 → 6NMEDSUR 13:53 → 1SOBS 10-23 01:37
PROVIDERS: ADMIT Internal Medicine; ATTEND Internal Medicine
DX: R07.89 Other chest pain (principal); I25.10 Atherosclerotic heart disease of native coronary artery without angina pectoris; K29.80 Duodenitis without bleeding; J44.9 Chronic obstructive pulmonary disease, unspecified; E66.9 Obesity, unspecified; I10 Essential (primary) hypertension; Z68.31 Body mass index [BMI] 31.0-31.9, adult; K29.00 Acute gastritis without bleeding; F17.210 Nicotine dependence, cigarettes, uncomplicated; K21.00 Gastro-esophageal reflux disease with esophagitis, without bleeding; F90.9 Attention-deficit hyperactivity disorder, unspecified type; I25.2 Old myocardial infarction; F41.0 Panic disorder [episodic paroxysmal anxiety]; M51.369 Other intervertebral disc degeneration, lumbar region without mention of lumbar back pain or lower extremity pain; K44.9 Diaphragmatic hernia without obstruction or gangrene; E78.1 Pure hyperglyceridemia; E83.42 Hypomagnesemia; G43.909 Migraine, unspecified, not intractable, without status migrainosus; F40.240 Claustrophobia; Z79.899 Other long term (current) drug therapy; Z71.6 Tobacco abuse counseling; Z98.1 Arthrodesis status; Z86.14 Personal history of Methicillin resistant Staphylococcus aureus infection; Z88.6 Allergy status to analgesic agent; Z88.5 Allergy status to narcotic agent
CPT/HCPCS: 36415; 71046; 74018; 74176; 80048; 80053; 80061; 80306; 81001; 83036; 83605; 83690; 83735; 84484; 85025; 85379; 85610; 85652; 85730; 86140; 87636; 93005; 93351; 94640; 96361; 96374; 96375; 96376; 99285; 99406

== ENCOUNTER 2025-02-04 15:31 | Inpatient (IN) | payer OTHER ==
--- NOTE | 2025-02-04 17:14 | ED ---
Neck Injury/Pain HPI - General Chief Complaint: Neck Pain/Injury Stated Complaint: Chest pain, L arm numbness Time Seen by Provider: 02/04/25 16:11 Mode of arrival: ambulatory Limitations: no limitations - History of Present Illness Initial Comments: 54-year-old female with past medical history of chronic back pain who presents emergency department with left-sided neck pain radiating into her left arm. Denies any injuries. States that the pain started yesterday around 4 PM. It is so significant that she feels like she is going to vomit. She has radiation of the pain down into her hand and states that her first 3 digits are numb. She also reports to associated left-sided chest pain. No fevers. No shortness of breath. Did not take anything for the pain before coming in. Does admit to history of previous neck surgery by Dr. Mancia. No fevers. Denies headache or visual changes. No other alleviating, precipitating or modifying factors - Related Data Home Medications Medication Instructions Recorded Confirmed clonazePAM [KlonoPIN] 0.5 mg PO BID 10/23/19 02/04/25 Methylphenidate HCl [Ritalin] 20 mg PO TID 04/07/23 02/04/25 Prazosin [Minipress] 5 mg PO HS 04/07/23 02/04/25 Albuterol Inhaler [Ventolin Hfa 2 puff INHALATION RT-Q4H PRN 09/30/23 02/04/25 Inhaler] Gabapentin 800 mg PO TID 09/30/23 02/04/25 Mirtazapine 30 mg PO HS 02/04/25 02/04/25 Allergies Allergy/AdvReac Type Severity Reaction Status Date / Time ibuprofen Allergy Anaphylaxis Verified 02/04/25 21:16 ketorolac [From Toradol] Allergy Anaphylaxis Verified 02/04/25 21:16 shellfish derived Allergy Anaphylaxis Verified 02/04/25 21:16 tramadol [From Ultram] Allergy Anaphylaxis Verified 02/04/25 21:16 Review of Systems ROS Statement: Those systems with pertinent positive or pertinent negative responses have been documented in the HPI. ROS Other: All systems not noted in ROS Statement are negative. Past Medical History Past Medical History: COPD, GERD/Reflux, Hypertension, Pneumonia Additional Past Medical History / Comment(s): chronic back pain, lumbar degenerative disc disease, insomnia, hx shingles, hiatal hernia, kidney stones. 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, migraines,; NECK PAIN , Rabies 09/17 Last Myocardial Infarction Date:: 08/27/2016 History of Any Multi-Drug Resistant Organisms: MRSA Date of last positivie culture/infection: 09/22/09 MDRO Source:: neck Past Surgical History: Appendectomy, Back Surgery, Section, Cholecystectomy, Orthopedic Surgery Additional Past Surgical History / Comment(s): Cervical spine fusion with insertion of a metal plate, EGD, colonoscopy, radiofrequency ablation, Past Anesthesia/Blood Transfusion Reactions: No Reported Reaction Additional Past Anesthesia/Blood Transfusion Reaction / Comment(s): CLAUSTROPHOBIA Past Psychological History: ADD/ADHD, Anxiety, Panic Disorder Smoking Status: Current every day smoker Past Alcohol Use History: None Reported Past Drug Use History: None Reported - Past Family History Father Family Medical History: Cancer Additional Family Medical History / Comment(s): Father at age 48 from lung cancer. Mother Family Medical History: Congestive Heart Failure (CHF), CVA/TIA Additional Family Medical History / Comment(s): Mother is alive at age 68. She has suffered from a CVA and has chronic back problems. Patient has 2 brothers and 4 sisters with no major medical problems. General Exam Limitations: no limitations General appearance: alert, in no apparent distress Head exam: Present: atraumatic, normocephalic, normal inspection Eye exam: Present: normal appearance, PERRL, EOMI. Absent: scleral icterus, conjunctival injection, periorbital swelling ENT exam: Present: normal exam, mucous membranes moist Neck exam: Present: tenderness (To palpation of the left cervical paraspinal muscles). Absent: meningismus, lymphadenopathy Respiratory exam: Present: normal lung sounds bilaterally. Absent: respiratory distress, wheezes, rales, rhonchi, stridor Cardiovascular Exam: Present: regular rate, normal rhythm, normal heart sounds. Absent: systolic murmur, diastolic murmur, rubs, gallop, clicks GI/Abdominal exam: Present: soft, normal bowel sounds. Absent: distended, tenderness, guarding, rebound, rigid Extremities exam: Present: normal inspection, full ROM, normal capillary refill. Absent: tenderness, pedal edema, joint swelling, calf tenderness Back exam: Present: normal inspection Neurological exam: Present: alert, oriented X3, CN II-XII intact Psychiatric exam: Present: normal affect, normal mood Skin exam: Present: warm, dry, intact, normal color. Absent: rash Course Vital Signs 02/04/25 02/04/25 02/04/25 15:34 17:36 18:57 Temperature 98.3 F Pulse Rate 106 H 90 88 Respiratory 18 18 18 Rate Blood Pressure 126/80 129/90 125/76 O2 Sat by Pulse 96 99 97 Oximetry 02/04/25 02/04/25 02/04/25 19:00 20:00 22:03 Temperature Pulse Rate 80 83 86 Respiratory 18 18 18 Rate Blood Pressure 145/92 132/109 140/95 O2 Sat by Pulse 96 96 Oximetry Medical Decision Making - Medical Decision Making Was pt. sent in by a medical professional or institution (, [place], [facility], urgent care, hospital, or residential...) When possible be specific @ -No Did you speak to anyone other than the patient for history (EMS, parent, family, police, friend...)? What history was obtained from this source @ -No Did you review nursing and triage notes (agree or disagree)? Why? @ -I reviewed and agree with nursing and triage notes Were old charts reviewed (outside hosp., previous admission, EMS record, old EKG, old radiological studies, urgent care reports/EKG's, residential records)? Report findings @ -No old charts were reviewed Differential Diagnosis (chest pain, altered mental status, abdominal pain women, abdominal pain men, vaginal bleeding, weakness, fever, dyspnea, syncope, headache, dizziness, GI bleed, back pain, seizure, CVA, palpatations, mental health, musculoskeletal)? @ -Differential Musculoskeletal Muscular strain, contusion, ligament sprain, fracture, arthritis, septic arthritis, bursitis, cellulitis, muscle spasm, nerve compression, DVT, arterial occlusion, herpes zoster, electrolyte abnormality, tumor.... This is not meant to be in all inclusive list EKG interpreted by me (3pts min.). @ -Yes and demonstrates sinus tachycardia with a rate of 103. CA interval 164. QRS 82. QTc of 389. No acute elevations or depressions X-rays interpreted by me (1pt min.). @ -Yes which demonstrates no acute process CT interpreted by me (1pt min.). @ -Yes which demonstrates foraminal stenosis U/S interpreted by me (1pt. min.). @ -None done What testing was considered but not performed or refused? (CT, X-rays, U/S, labs)? Why? @ -None What meds were considered but not given or refused? Why? @ -None Did you discuss the management of the patient with other professionals (professionals i.e. , JANIE, [employer], lab, RT, psych nurse, social security assessor, manufacturing plant controller, teacher, chief digital officer, human services case manager)? Give summary @ -Spoke with Dr. Martinez for the admission Was smoking cessation discussed for >3mins.? @ -No Was critical care preformed (if so, how long)? @ -No Were there social determinants of health that impacted care today? How? (Homelessness, low income, unemployed, alcoholism, drug addiction, transportation, low edu. Level, literacy, decrease access to med. care, [facility], rehab)? @ -No Was there de-escalation of care discussed even if they declined (Discuss DNR or withdrawal of care, Hospice)? DNR status @ -No What co-morbidities impacted this encounter? (DM, HTN, Smoking, COPD, CAD, Cancer, CVA, ARF, Chemo, Hep., AIDS, mental health diagnosis, sleep apnea, morbid obesity)? @ -Reoccurring chest pain, chronic back pain, chronic neck pain Was patient admitted / discharged? Hospital course, mention meds given and route, prescriptions, significant lab abnormalities, going to OR and other pertinent info. @ -Upon arrival patient seen and evaluated in bed 27. Thorough history and physical exam was performed. Patient placed on continuous pulse ox and cardiac monitoring. Twelve-lead EKG is obtained. Laboratory studies are conducted as well as a chest x-ray and a CT of the patient's neck. Results are discussed with the patient. She was given Dilaudid 1 mg, Norflex 60 mg, Solu-Medrol 125 mg. She has no improvement in her symptoms and therefore I did give her another dose of pain medications and a lidocaine patch. Patient continues to have significant tenderness and therefore I did give her 5 mg of Valium. Upon multiple reevaluations the patient denies having any improvement in her symptoms therefore will be admitted overnight for consult to Dr. Olson. Spoke with Dr. Martinez for the admission. Undiagnosed new problem with uncertain prognosis? @ -No Drug Therapy requiring intensive monitoring for toxicity (Heparin, Nitro, Insulin, Cardizem)? @ -No Were any procedures done? @ -No Diagnosis/symptom? @ -Acute torticollis left neck acute intractable neck pain, cervical radiculopathy Acute, or Chronic, or Acute on Chronic? @ -On chronic Uncomplicated (without systemic symptoms) or Complicated (systemic symptoms)? @ -Complicated Side effects of treatment? @ -No Exacerbation, Progression, or Severe Exacerbation? @ -No Poses a threat to life or bodily function? How? (Chest pain, USA, PA, pneumonia, PE, COPD, DKA, ARF, appy, cholecystitis, CVA, Diverticulitis, Homicidal, Suicidal, threat to staff... and all critical care pts) @ -No - Lab Data Result diagrams: 02/04/25 17:06 02/04/25 17:06 Lab Results 02/04/25 02/04/25 02/04/25 Range/Units 17:06 17:06 17:06 WBC 8.76 (4.50-10.00) 10*3/uL RBC 4.53 (4.10-5.20) 10*6/uL Hgb 13.7 (12.0-15.0) g/dL Hct 41.4 (37.2-46.3) % MCV 91.4 (80.0-97.0) fL MCH 30.2 (27.0-32.0) pg MCHC 33.1 (32.0-37.0) g/dL Plt Count 393 (140-440) 10*3/uL MPV 10.2 (9.5-12.2) fL Immature Gran % (Auto) 0.5 % Neutrophils % 55.8 % Lymphocytes % 27.5 % Monocytes % 11.5 % Eosinophils % 4.2 % Basophils % 0.5 % Immature Gran # 0.04 (0.00-0.04) 10*3/uL Neutrophils # 4.89 (1.80-7.70) 10*3/uL Lymphocytes # 2.41 (0.90-5.00) 10*3/uL Monocytes # 1.01 H (0.20-1.00) 10*3/uL Eosinophils # 0.37 H (0.04-0.35) 10*3/uL Basophils # 0.04 (0.00-0.10) 10*3/uL Sodium 142 (137-145) mmol/L Potassium 3.3 L (3.5-5.1) mmol/L Chloride 107 (98-107) mmol/L Carbon Dioxide 24 (22-30) mmol/L Anion Gap 11 mmol/L BUN 6 L (7-17) mg/dL Creatinine 0.75 (0.52-1.04) mg/dL Est GFR (CKD-EPI)AfAm >90 (>60 ml/min/1.73 sqM) Est GFR (CKD-EPI)NonAf 90 (>60 ml/min/1.73 sqM) Glucose 120 H (74-99) mg/dL Calcium 9.5 (8.4-10.2) mg/dL Magnesium 1.7 (1.6-2.3) mg/dL Total Bilirubin 0.1 L (0.2-1.3) mg/dL AST 20 (14-36) U/L ALT 16 (4-34) U/L Alkaline Phosphatase 121 (38-126) U/L Troponin I <0.012 (0.000-0.034) ng/mL Total Protein 6.3 (6.3-8.2) g/dL Albumin 3.6 (3.5-5.0) g/dL Disposition Clinical Impression: High risk for readmission, Neck pain Disposition: ADMITTED IP TO THIS [facility] Condition: Stable Is patient prescribed a controlled substance at d/c from ED?: No Time of Disposition: 20:44 Decision to Admit Reason: Admit from EC Decision Date: 02/04/25 Decision Time: 20:44
[2025-02-04 17:16] LABS: Basophils # (A) 0.04 10*3/uL (0.00-0.10); Basophils % (A) 0.5 %; Eosinophils # (A) 0.37 10*3/uL (0.04-0.35); Eosinophils % (A) 4.2 %; HCT 41.4 % (37.2-46.3); HGB 13.7 g/dL (12.0-15.0); Lymphocytes # (A) 2.41 10*3/uL (0.90-5.00); Lymphocytes % (A) 27.5 %; MCH 30.2 pg (27.0-32.0); MCHC 33.1 g/dL (32.0-37.0); MCV 91.4 fL (80.0-97.0); Monocytes # (A) 1.01 10*3/uL (0.20-1.00); Monocytes % (A) 11.5 %; Neutrophils # (A) 4.89 10*3/uL (1.80-7.70); Neutrophils % (A) 55.8 %; Platelet Count 393 10*3/uL (140-440); RBC 4.53 10*6/uL (4.10-5.20); RDW 13.9 % (11.5-14.5); WBC 8.76 10*3/uL (4.50-10.00)
[2025-02-04] MEDS: ONDANSETRON 4 MG/2 ML VIAL IVP STA (17:29)
[2025-02-04] MEDS: methylPREDNISolone SOD SUCCI 125 MG/2 ML VIAL IV STA (17:32)
[2025-02-04] MEDS: ORPHENADRINE 30 MG/ML 2 ML VIAL IM STA (17:33)
[2025-02-04 17:34] LABS: ALT 16 U/L (4-34); AST 20 U/L (14-36); African American GFR (CKD) >90 (>60 ml/min/1.73 sqM); Albumin 3.6 g/dL (3.5-5.0); Alkaline Phosphatase 121 U/L (38-126); Anion Gap 11 mmol/L; Blood Urea Nitrogen 6 mg/dL (7-17); Calcium 9.5 mg/dL (8.4-10.2); Carbon Dioxide 24 mmol/L (22-30); Chloride 107 mmol/L (98-107); Glucose 120 mg/dL (74-99); Magnesium 1.7 mg/dL (1.6-2.3); Non-African American GFR(CKD) 90 (>60 ml/min/1.73 sqM); Potassium 3.3 mmol/L (3.5-5.1); Sodium 142 mmol/L (137-145); Total Protein 6.3 g/dL (6.3-8.2)
[2025-02-04] MEDS: HYDROmorphone 1 MG/ML 1 ML SYRINGE IVP STA ×2 (17:35→18:54)
--- NOTE | 2025-02-04 17:49 | CT ---
EXAMINATION TYPE: CT cervical spine wo con DATE OF EXAM: 02/04/2025 5:24 PM COMPARISON: 11/02/2023 CLINICAL INDICATION: Female, 54 years old with history of neck pain, left hand numbness; TECHNIQUE: Axial CT images from the skull base to the inferior aspect of T2 we obtained without intra venous contrast. Coronal and sagittal reformatted images were also reviewed. Contrast used: mL of , (if blank None) Oral contrast used: (if blank None) CT DLP: mGycm, Automated exposure control for dose reduction was used. FINDINGS: Fracture: None. Osseous structures: Fixation hardware C5-C6 appear intact. Incomplete osseous fusion at C5-C6. Multil evel degenerative disc disease changes with endplate spurring and disc osteophyte complex's. Vertebral alignment: Alignment within normal limits. Spinal canal/Neural Foramina: No evidence of significant spinal canal narrowing. Facet joint uncovert ebral joint arthropathy scattered throughout the cervical spine with varying degrees of neural forami nal stenosis. C6-C7 moderate neural foraminal stenosis bilaterally. Neck soft tissues: Prevertebral soft tissues are within normal limits. Other: The airway is patent. Few scattered blebs. IMPRESSION: 1. No evidence of cervical spine fracture. 2. Mild multilevel degenerative disc disease. 3. Fixation of C5-C6 with hardware intact. No fusion of the vertebral bodies definitely visualized. 4. Moderate bilateral neural foraminal stenosis C6-C7. [facility], , 02/04/2025 5:46 PM
--- NOTE | 2025-02-04 17:50 | XR ---
EXAMINATION TYPE: XR chest 2V DATE OF EXAM: 02/04/2025 5:24 PM COMPARISON: Chest radiographs from 10/22/2024. CLINICAL INDICATION: Female, 54 years old with history of Chest Pain; [facility] TECHNIQUE: XR chest 2V Frontal and lateral views of the chest. FINDINGS: Lungs/Pleura: There is no evidence of pleural effusion, focal consolidation, or pneumothorax. Pulmonary vascularity: Unremarkable. Heart/mediastinum: Cardiomediastinal silhouette is unremarkable. Musculoskeletal: No acute osseous pathology. IMPRESSION: No acute cardiopulmonary disease/process. [facility], , 02/04/2025 5:47 PM
[2025-02-04] MEDS: LIDOCAINE 4% PATCH TOPICAL ONE (18:56)
[2025-02-04] MEDS ORDERED: NALOXONE 0.4 MG/ML 1 ML VIAL IV PRN (20:44)
[2025-02-04] MEDS: MORPHINE SULFATE 4 MG/ML SYRINGE IV PRN (22:01)
[2025-02-05] MEDS: HYDROcodone/APAP 5-325MG 1 EACH TAB PO PRN (00:19)
[2025-02-05 08:00] LABS: Anion Gap 13.20 mmol/L (4.00-12.00); BUN/Creat Ratio 10.00 Ratio (12.00-20.00); Blood Urea Nitrogen 8.0 mg/dL (9.0-27.0); Calcium 9.0 mg/dL (8.7-10.3); Carbon Dioxide 21.8 mmol/L (21.6-31.8); Chloride 104 mmol/L (96-109); Glucose 246 mg/dL (70-110); Potassium 3.4 mmol/L (3.5-5.5); Sodium 139 mmol/L (135-145)
[2025-02-05 08:02] LABS: Basophils # (A) 0.02 X 10*3/uL (0.00-0.10); Basophils % (A) 0.2 %; Eosinophils # (A) 0 X 10*3/uL (0.04-0.35); Eosinophils % (A) 0 %; HCT 41.4 % (37.2-46.3); HGB 13.5 g/dL (12.0-15.0); Immature Grans, Automated 1.10 %; Lymphocytes # (A) 0.73 X 10*3/uL (0.90-5.00); Lymphocytes % (A) 7.3 %; MCH 30.0 pg (27.0-32.0); MCHC 32.6 g/dL (32.0-37.0); MCV 92.0 FL (80.0-97.0); Monocytes # (A) 0.18 X 10*3/uL (0.20-1.00); Monocytes % (A) 1.8 %; NRBC Per 100 WBC 0 X 10*3/uL (0.00-0.01); Neutrophils # (A) 8.91 X 10*3/uL (1.80-7.70); Neutrophils % (A) 89.6 %; Platelet Count 411 X 10*3/uL (140-440); RBC 4.50 X 10*6/uL (4.10-5.20); RDW 13.8 % (11.5-14.5); WBC 9.95 X 10*3/uL (4.50-10.00)
[2025-02-05] MEDS: methylPREDNISolone SOD SUCCI 125 MG/2 ML VIAL IV SCH (09:23)
--- NOTE | 2025-02-05 09:32 | P.CNOR ---
History of Present Illness - [facility] Consult date: 02/05/25 Requesting physician: Meli Feldman Consult reason: neck pain, other (Left upper extremity radiculopathy) History of present illness: Patient is a pleasant 54-year-old female who is seen examined bedside for further evaluation of her cervical spine. She has a history of C5-6 fusion performed [place] [address] Mancia. Following surgical intervention she states she has not had any significant difficulty with her cervical spine or upper extremities until 2 days ago, 02/05/2025. She states she is experiencing significant pain with stiffness at her cervical spine with pain radiating down her left upper extremity her thumb, index finger, and middle finger. 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 Prior to her previous surgical intervention she had pain and numbness into her left pinky finger and ring finger. She denies any right upper extremity weakness or radiculopathy. She denies any injuries. She denies diabetes melli tus. Her pain is intractable and she was admitted to the hospital for further evaluation. She denies having a pacemaker. She admits to difficulty with pain control during her admission. She is receiving IV and oral medications for pain control. She admits to claustrophobia. She is admitted to medicine. Her other medical diagnoses include COPD and hypertension. Past Medical History Past Medical History: COPD, GERD/Reflux, Hypertension, Pneumonia Additional Past Medical History / Comment(s): chronic back pain, lumbar degenerative disc disease, insomnia, hx shingles, hiatal hernia, kidney stones. 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, migraines,; NECK PAIN , Rabies 09/17 Last Myocardial Infarction Date:: 08/27/2016 History of Any Multi-Drug Resistant Organisms: MRSA Year Discovered:: 09/22/09 MDRO Source:: neck Past Surgical History: Appendectomy, Back Surgery, Section, Cholecystectomy, Orthopedic Surgery Additional Past Surgical History / Comment(s): Cervical spine fusion with insertion of a metal plate, EGD, colonoscopy, radiofrequency ablation, Past Anesthesia/Blood Transfusion Reactions: No Reported Reaction Additional Past Anesthesia/Blood Transfusion Reaction / Comm: CLAUSTROPHOBIA Past Psychological History: ADD/ADHD, Anxiety, Panic Disorder Smoking Status: Current every day smoker Past Alcohol Use History: None Reported Past Drug Use History: None Reported - Past Family History Father Family Medical History: Cancer Additional Family Medical History / Comment(s): Father at age 48 from lung cancer. Mother Family Medical History: Congestive Heart Failure (CHF), CVA/TIA Additional Family Medical History / Comment(s): Mother is alive at age 68. She has suffered from a CVA and has chronic back problems. Patient has 2 brothers and 4 sisters with no major medical problems. Medications and Allergies Home Medications Medication Instructions Recorded Confirmed Type clonazePAM [KlonoPIN] 0.5 mg PO BID 10/23/19 02/04/25 History Methylphenidate HCl [Ritalin] 20 mg PO TID 04/07/23 02/04/25 History Prazosin [Minipress] 5 mg PO HS 04/07/23 02/04/25 History Albuterol Inhaler [Ventolin Hfa 2 puff INHALATION RT-Q4H PRN 09/30/23 02/04/25 History Inhaler] Gabapentin 800 mg PO TID 09/30/23 02/04/25 History Mirtazapine 30 mg PO HS 02/04/25 02/04/25 History Allergies Allergy/AdvReac Type Severity Reaction Status Date / Time ibuprofen Allergy Anaphylaxis Verified 02/04/25 21:16 ketorolac [From Toradol] Allergy Anaphylaxis Verified 02/04/25 21:16 shellfish derived Allergy Anaphylaxis Verified 02/04/25 21:16 tramadol [From Ultram] Allergy Anaphylaxis Verified 02/04/25 21:16 Physical Examination Physical exam: Patient is awake, alert, and oriented 3 Vital signs stable Good chest excursion with deep inspiration and expiration Examination of the cervical spine reveals skin is intact with no abrasions, lacerations, or bruises; no erythema, purulence or signs of infection Stiffness with range of motion throughout range of motion of her cervical spine Well-healed anterior cervical incision site Pain with palpation of the posterior cervical spine Significant weakness of her left upper extremity 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, 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, 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 Motor strength the upper extremity is 3/5 including the gas plant technician, biceps, and triceps on the left Increased cervical pain and upper extremity pain on the left with deltoids against resistance Upper extremity strength 5/5 on the right No upper extremity hyperreflexia bilaterally Hoffmans sign negative upper extremity bilaterally Results Pertinent studies: CT of the cervical spine taken on 02/04/2025: Evidence of previous fusion C5-6 with retained hardware; fracture deformity; C6-7 significant degenerative disc disease with osteophytic spurring and moderate bilateral foraminal stenosis; C3- 4 and C4-5 degenerative disc disease - Labs Labs: Abnormal Lab Results - Last 24 Hours (Table) 02/04/25 02/04/25 02/05/25 Range/Units 17:06 17:06 04:57 Immature Gran # 0.11 H (0.00-0.04) X 10*3/uL Neutrophils # 8.91 H (1.80-7.70) X 10*3/uL Lymphocytes # 0.73 L (0.90-5.00) X 10*3/uL Monocytes # 1.01 H 0.18 L (0.20-1.00) 10*3/uL Eosinophils # 0.37 H 0 L (0.04-0.35) 10*3/uL Potassium 3.3 L (3.5-5.1) mmol/L Anion Gap (4.00-12.00) mmol/L BUN 6 L (7-17) mg/dL BUN/Creatinine Ratio (12.00-20.00) Ratio Glucose 120 H (74-99) mg/dL Total Bilirubin 0.1 L (0.2-1.3) mg/dL 02/05/25 Range/Units 04:57 Immature Gran # (0.00-0.04) X 10*3/uL Neutrophils # (1.80-7.70) X 10*3/uL Lymphocytes # (0.90-5.00) X 10*3/uL Monocytes # (0.20-1.00) 10*3/uL Eosinophils # (0.04-0.35) 10*3/uL Potassium 3.4 L (3.5-5.1) mmol/L Anion Gap 13.20 H (4.00-12.00) mmol/L BUN 8.0 L (7-17) mg/dL BUN/Creatinine Ratio 10.00 L (12.00-20.00) Ratio Glucose 246 H (74-99) mg/dL Total Bilirubin (0.2-1.3) mg/dL H & H 02/04/25 02/05/25 Range/Units 17:06 04:57 Hgb 13.7 13.5 (12.0-15.0) g/dL Hct 41.4 41.4 (37.2-46.3) % Result Diagrams: 02/05/25 04:57 02/05/25 04:57 Assessment and Plan Assessment: Assessment: Acute left upper extremity radiculopathy and weakness Cervical pain and stiffness History C5-6 anterior cervical decompression and fusion C6-7 significant degenerative disc disease with osteophytic spurring and moderate bilateral foraminal stenosis C3-4 and C4-5 degenerative disc disease COPD Hypertension (1) History of fusion of cervical spine Current Visit: Yes Status: Acute Code(s): Z98.1 - ARTHRODESIS STATUS SNOMED Code(s): 7343232636689 (2) Foraminal stenosis of cervical region Current Visit: Yes Status: Acute Code(s): M48.02 - SPINAL STENOSIS, CERVICAL REGION SNOMED Code(s): 316679138078 (3) Degenerative cervical disc Current Visit: Yes Status: Acute Code(s): M50.30 - OTHER CERVICAL DISC DEGENERATION, UNSP CERVICAL REGION SNOMED Code(s): 83563022 (4) Cervical osteophyte Current Visit: Yes Status: Acute Code(s): M25.78 - OSTEOPHYTE, VERTEBRAE SNOMED Code(s): 540813081488026 (5) Stiffness of cervical spine Current Visit: Yes Status: Acute Code(s): M43.6 - TORTICOLLIS SNOMED Code(s): 789776205 (6) Radiculopathy affecting upper extremity Current Visit: Yes Status: Acute Code(s): M54.10 - RADICULOPATHY, SITE UNSPECIFIED SNOMED Code(s): 90445774 (7) Weakness of left upper extremity Current Visit: Yes Status: Acute Code(s): R29.898 - OTH SYMPTOMS AND SIGNS INVOLVING THE MUSCULOSKELETAL SYSTEM SNOMED Code(s): 950824481 (8) Cervicalgia Current Visit: Yes Status: Chronic Code(s): M54.2 - CERVICALGIA SNOMED Code(s): 38145265 (9) COPD (chronic obstructive pulmonary disease) Current Visit: No Status: Acute Code(s): J44.9 - CHRONIC OBSTRUCTIVE PULMONARY DISEASE, UNSPECIFIED SNOMED Code(s): 88922010 (10) Hypertension Current Visit: No Status: Acute Code(s): I10 - ESSENTIAL (PRIMARY) HYPERTENSION SNOMED Code(s): 00555380 Plan: Plan: Patient is a pleasant 54-year-old female who is seen examined bedside for further evaluation of her cervical spine. She has a history of C5-6 fusion performed in [address] Mancia. Following surgical intervention she states she has not had any significant difficulty with her cervical spine or upper extremities until 2 days ago, 02/05/2025. She states she is experiencing significant pain with stiffness at her cervical spine with pain radiating down her left upper extremity her thumb, index finger, and middle finger. 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 Prior to surgical intervention she had pain and numbness into her left pinky finger and ring finger. Her pain is intractable and she was admitted to the hospital for further evaluation. She denies having a pacemaker. She admits to difficulty with pain control during her admission. She is receiving IV and oral medications for pain control. Currently, we will plan to obtain urgent MRI imaging of the cervical spine for further evaluation. She is prescribed Valium 5 mg 1-2 tabs prior to her MRI for claustrophobia. She will also be started on Solu-Medrol 80 mg IV every 8 hours. I will also plan to consult with pain management. Following completion of her cervical MRI imaging, we will review this imaging and follow-up to discuss her imaging results and a plan of care. We will continue to follow the patient. 2. Patient will continue to be seen and examined by medicine for her other medical diagnoses 3. Consultation with pain management is pending Time with Patient: Greater than 30 (Including obtaining history, physical examination, reviewing of imaging, and dictation.)
[2025-02-05] MEDS: POTASSIUM CHLORIDE ER 20 MEQ TAB.ER PO STA (11:27)
[2025-02-05] MEDS: PANTOPRAZOLE 40 MG TABLET PO SCH (11:27)
[2025-02-05] MEDS ORDERED: ALBUTEROL NEBULIZED 2.5 MG/3 ML INHALATION PRN (12:32)
[2025-02-05] MEDS: METHYLPHENIDATE HCL 10 MG TAB PO SCH (13:03)
[2025-02-05] MEDS: clonazePAM 0.5 MG TAB PO SCH (13:03)
--- NOTE | 2025-02-05 15:49 | P.HPIM ---
History of Present Illness 48-year-old female with a history of C5-6 fusion surgery in the past came in with complaints of severe neck pain stiffness in the neck pain radiating to the left upper extremity and numbness in the left thumb index and middle fingers. Patient has decreased elevator tender in that hand as well patient tingling numbness extends to the forearm is complaining of severe pain in the neck patient had a CT of the cervical spine which showed multilevel degenerative changes in the hardware at C5-C6 level and bilateral neural foraminal stenosis at C6-C7 level. REVIEW OF SYSTEMS: All other systems are negative except those mentioned in the HPI PHYSICAL EXAMINATION: GENERAL: The patient is alert and oriented x3, not in any acute distress. Well developed, well nourished. HEENT: Pupils are round and equally reacting to light. EOMI. No scleral icterus. No conjunctival pallor. Normocephalic, atraumatic. No pharyngeal erythema. No thyromegaly. CARDIOVASCULAR: S1 and S2 present. No murmurs, rubs, or gallops. PULMONARY: Chest is clear to auscultation, no wheezing or crackles. ABDOMEN: Soft, nontender, nondistended, normoactive bowel sounds. No palpable organomegaly. MUSCULOSKELETAL: No joint swelling or deformity. EXTREMITIES: No cyanosis, clubbing, or pedal edema. NEUROLOGICAL: Decreased elevator tender strength in the left upper extremity SKIN: No rashes. Assessment and plan -Left upper extremity radiculopathy and weakness, secondary to cervical degenerative disease: Patient is not on systemic steroids spinal surgeon was consulted. - Hypokalemia potassium will be replaced COPD without any acute exacerbation - Hypertension Neuropathy for which patient is on gabapentin -ADD ADHD, anxiety disorder for which patient is on Ritalin - Continue nicotine use: Counseling was provided DVT prophylaxis: Lovenox GI prophylaxis Protonix Past Medical History Past Medical History: COPD, GERD/Reflux, Hypertension, Pneumonia Additional Past Medical History / Comment(s): chronic back pain, lumbar degenerative disc disease, insomnia, hx shingles, hiatal hernia, kidney stones. 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, migraines,; NECK PAIN , Rabies 09/17 Last Myocardial Infarction Date:: 08/27/2016 History of Any Multi-Drug Resistant Organisms: MRSA Date of last positivie culture/infection: 09/22/09 MDRO Source:: neck Past Surgical History: Appendectomy, Back Surgery, Section, Cholecystectomy, Orthopedic Surgery Additional Past Surgical History / Comment(s): Cervical spine fusion with insertion of a metal plate, EGD, colonoscopy, radiofrequency ablation, Past Anesthesia/Blood Transfusion Reactions: No Reported Reaction Additional Past Anesthesia/Blood Transfusion Reaction / Comment(s): CLAUSTROPHOBIA Past Psychological History: ADD/ADHD, Anxiety, Panic Disorder Smoking Status: Current every day smoker Past Alcohol Use History: None Reported Past Drug Use History: None Reported - Past Family History Father Family Medical History: Cancer Additional Family Medical History / Comment(s): Father at age 48 from lung cancer. Mother Family Medical History: Congestive Heart Failure (CHF), CVA/TIA Additional Family Medical History / Comment(s): Mother is alive at age 68. She has suffered from a CVA and has chronic back problems. Patient has 2 brothers and 4 sisters with no major medical problems. Medications and Allergies Home Medications Medication Instructions Recorded Confirmed Type clonazePAM [KlonoPIN] 0.5 mg PO BID 10/23/19 02/04/25 History Methylphenidate HCl [Ritalin] 20 mg PO TID 04/07/23 02/04/25 History Prazosin [Minipress] 5 mg PO HS 04/07/23 02/04/25 History Albuterol Inhaler [Ventolin Hfa 2 puff INHALATION RT-Q4H PRN 09/30/23 02/04/25 History Inhaler] Gabapentin 800 mg PO TID 09/30/23 02/04/25 History Mirtazapine 30 mg PO HS 02/04/25 02/04/25 History Allergies Allergy/AdvReac Type Severity Reaction Status Date / Time ibuprofen Allergy Anaphylaxis Verified 02/04/25 21:16 ketorolac [From Toradol] Allergy Anaphylaxis Verified 02/04/25 21:16 shellfish derived Allergy Anaphylaxis Verified 02/04/25 21:16 tramadol [From Ultram] Allergy Anaphylaxis Verified 02/04/25 21:16 Physical Exam Vitals: Vital Signs Temp Pulse Pulse Resp BP BP Pulse Ox 02/05/25 07:04 98.4 F 82 16 129/79 98 02/05/25 00:36 80 18 150/93 98 02/05/25 00:05 98.2 F 77 20 149/95 99 02/04/25 22:03 86 18 140/95 02/04/25 20:00 83 18 132/109 96 02/04/25 19:00 80 18 145/92 96 02/04/25 18:57 88 18 125/76 97 02/04/25 17:36 90 18 129/90 99 Intake and Output 02/05/25 02/05/25 02/05/25 06:59 14:59 22:59 Intake Total 591 Balance 591 Intake: Oral 591 Other: Voiding Method Toilet Toilet # Voids 2 Weight 65.771 kg Results CBC & Chem 7: 02/05/25 04:57 02/05/25 04:57 Labs: Abnormal Lab Results - Last 24 Hours (Table) 02/04/25 02/04/25 02/05/25 Range/Units 17:06 17:06 04:57 Immature Gran # 0.11 H (0.00-0.04) X 10*3/uL Neutrophils # 8.91 H (1.80-7.70) X 10*3/uL Lymphocytes # 0.73 L (0.90-5.00) X 10*3/uL Monocytes # 1.01 H 0.18 L (0.20-1.00) 10*3/uL Eosinophils # 0.37 H 0 L (0.04-0.35) 10*3/uL Potassium 3.3 L (3.5-5.1) mmol/L Anion Gap (4.00-12.00) mmol/L BUN 6 L (7-17) mg/dL BUN/Creatinine Ratio (12.00-20.00) Ratio Glucose 120 H (74-99) mg/dL Total Bilirubin 0.1 L (0.2-1.3) mg/dL 02/05/25 Range/Units 04:57 Immature Gran # (0.00-0.04) X 10*3/uL Neutrophils # (1.80-7.70) X 10*3/uL Lymphocytes # (0.90-5.00) X 10*3/uL Monocytes # (0.20-1.00) 10*3/uL Eosinophils # (0.04-0.35) 10*3/uL Potassium 3.4 L (3.5-5.1) mmol/L Anion Gap 13.20 H (4.00-12.00) mmol/L BUN 8.0 L (7-17) mg/dL BUN/Creatinine Ratio 10.00 L (12.00-20.00) Ratio Glucose 246 H (74-99) mg/dL Total Bilirubin (0.2-1.3) mg/dL Thrombosis Risk Factor Assmnt - Choose All That Apply Each Factor Represents 1 point: Age 41-60 years, Obesity (BMI >25) Thrombosis Risk Factor Assessment Total Risk Factor Score: 2 Thrombosis Risk Factor Assessment Level: Low Risk
[2025-02-05] MEDS: GABAPENTIN 400 MG CAP PO SCH (16:02)
[2025-02-05] MEDS: ONDANSETRON 4 MG/2 ML VIAL IVP PRN (16:03)
[2025-02-05] MEDS: diazePAM 5 MG TAB PO STA (17:20)
--- NOTE | 2025-02-05 18:44 | MR ---
EXAMINATION TYPE: MR cervical spine wo/w con DATE OF EXAM: 02/05/2025 6:17 PM COMPARISON: . CLINICAL INDICATION: Female, 54 years old with history of Upper extremity weakness and radiculopathy; Hx Sx; PHH, upper extremity weakness and radiculopathy: history of surgery. TECHNIQUE: Multi planar, multi sequence imaging was performed utilizing: T1-weighted, T2-weighted, an d turbo inversion recovery imaging of the cervical spine. IV Contrast: 6.5 mL Gadobutrol (None, if empty) FINDINGS: Alignment: The cervical vertebral bodies have preserved heights. Alignment is within normal limits gi boubacar patient positioning. Bones: Surgical changes at C5-C6 with hardware anteriorly Bone signal is within normal limits. No abn ormal bone marrow edema on inversion recovery sequences. Cord: The spinal cord is unremarkable with regards to their signal intensity and morphology. No abnor mal postcontrast enhancement. Discs: Intervertebral disc signal is maintained. C2-C3: No significant disc pathology. The spinal canal is patent. No neural foraminal stenosis. C3-C4: No significant disc pathology. The spinal canal is patent. No neural foraminal stenosis. C4-C5: A disc osteophyte complex is present which minimally narrows the ventral subarachnoid space. Bilateral facet and uncovertebral joint arthropathy are present with mild right neural foraminal ole nosis. The left neural foramen is patent. C5-C6: No significant disc pathology. The spinal canal is patent. No neural foraminal stenosis. C6-C7: No significant disc pathology. The spinal canal is patent. Bilateral facet and uncovertebral joint arthropathy are present with mild left neural foraminal stenosis. The right neural foramen is p atent. C7-T1: No significant disc pathology. The spinal canal is patent. No neural foraminal stenosis. Other: None. IMPRESSION: 1. No evidence for disc herniation or significant spinal canal stenosis. 2. Postsurgical changes with no evidence for significant spinal canal or neural foraminal stenosis. N o abnormal postcontrast enhancement. 2. Mild multilevel disc degeneration with associated osteoarthritic changes. [facility], , 02/05/2025 6:42 PM
[2025-02-05] MEDS: PRAZOSIN 1 MG CAP PO SCH (23:19)
[2025-02-05] MEDS: MIRTAZAPINE 15 MG TAB PO SCH (23:20)
[2025-02-06] MEDS: ENOXAPARIN 40 MG/0.4 ML SYRINGE SQ SCH (07:11)
--- NOTE | 2025-02-06 08:11 | P.PAINCN ---
History of Present Illness - Reason for Consult Consult date: 02/06/25 - History of Present Illness This 54 years old female with a history of severe neck pain with radiation to the left upper extremity associated with numbness and tingling sensation, in the left index and middle finger, also patient reports she had decreased handgrip on the left upper extremity, patient reported that symptoms started 2 to 3 days ago she denies any initiating event, patient had a history of cervical fusion at C5- 6 done several years ago, patient did fairly well after the surgery until recently, she denies any symptoms on the right side, patient started on Solu- Medrol and she is on Neurontin 800 mg 3 times daily, and she is on Cropsey 5/325 every 4 hours and morphine sulfate IV every 4 hours if she continues to have severe pain Past Medical History Past Medical History: COPD, GERD/Reflux, Hypertension, Pneumonia Additional Past Medical History / Comment(s): chronic back pain, lumbar degenerative disc disease, insomnia, hx shingles, hiatal hernia, kidney stones. 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, migraines,; NECK PAIN , Rabies 09/17 Last Myocardial Infarction Date:: 08/27/2016 History of Any Multi-Drug Resistant Organisms: MRSA Year Discovered:: 09/22/09 MDRO Source:: neck Past Surgical History: Appendectomy, Back Surgery, Section, Cholecystectomy, Orthopedic Surgery Additional Past Surgical History / Comment(s): Cervical spine fusion with insertion of a metal plate, EGD, colonoscopy, radiofrequency ablation, Past Anesthesia/Blood Transfusion Reactions: No Reported Reaction Additional Past Anesthesia/Blood Transfusion Reaction / Comm: CLAUSTROPHOBIA Past Psychological History: ADD/ADHD, Anxiety, Panic Disorder Smoking Status: Current every day smoker Past Alcohol Use History: None Reported Past Drug Use History: None Reported - Past Family History Father Family Medical History: Cancer Additional Family Medical History / Comment(s): Father at age 48 from lung cancer. Mother Family Medical History: Congestive Heart Failure (CHF), CVA/TIA Additional Family Medical History / Comment(s): Mother is alive at age 68. She has suffered from a CVA and has chronic back problems. Patient has 2 brothers and 4 sisters with no major medical problems. Medications and Allergies Home Medications Medication Instructions Recorded Confirmed Type clonazePAM [KlonoPIN] 0.5 mg PO BID 10/23/19 02/04/25 History Methylphenidate HCl [Ritalin] 20 mg PO TID 04/07/23 02/04/25 History Prazosin [Minipress] 5 mg PO HS 04/07/23 02/04/25 History Albuterol Inhaler [Ventolin Hfa 2 puff INHALATION RT-Q4H PRN 09/30/23 02/04/25 H istory Inhaler] Gabapentin 800 mg PO TID 09/30/23 02/04/25 History Mirtazapine 30 mg PO HS 02/04/25 02/04/25 History Allergies Allergy/AdvReac Type Severity Reaction Status Date / Time ibuprofen Allergy Anaphylaxis Verified 02/04/25 21:16 ketorolac [From Toradol] Allergy Anaphylaxis Verified 02/04/25 21:16 shellfish derived Allergy Anaphylaxis Verified 02/04/25 21:16 tramadol [From Ultram] Allergy Anaphylaxis Verified 02/04/25 21:16 Physical Exam Vitals: Vital Signs Temp Pulse Resp BP BP Pulse Ox 02/06/25 01:30 98.1 F 98 16 125/82 94 L 02/05/25 19:20 98.1 F 103 H 19 157/95 93 L 02/05/25 15:45 98.8 F 102 H 16 149/93 97 Intake and Output 02/05/25 02/06/25 02/06/25 22:59 06:59 14:59 Intake Total 221 Balance 221 Intake: Oral 221 Other: Voiding Method Toilet Toilet # Voids 1 3 Physical Examinations : Constitutiona : Cooperative , not in acute distress . HEENT : nech : supple , no Lymphadenopathy , normal thyroid size . : eyes no ptosis , no icterus, no photophobia . : ENT normal of hearing , normal oropharynx , no Thrush . Respiratory : Chest clear to auscultations Bilaterally , no wheezing , no Rhonchi . Cardiovascula : regular rate and rhythem , S1 , S2 , no S3 , no S4. Gastrointestina : abdomen soft no tenderness , bowel sounds , no organomegally . Genitourinary : Defferred . neurologic : Cranial nerve II to XII intact , no focal neurological deffecit . psychatric : alert , oriented X 3 , appropriate affect , intact judgment and insight . Lymphatic : no Lymphadenopathy . musculoskeltal : Cervical Spine motor stregnth in the deltoid and biceps, normal right side , decreased left side motor stregnth biceps and the wrist extensors normal right side , decreased left side . motor stregnth in the triceps muscle . normal Right side , Decreased left side deep tendon reflexes= normal at the biceps , normal at Brachioradialis , normal at triceps. cervical facet loading test: Positive Bilaterally Spurling test= positive bilaterally. Neck distraction test= positive b ilaterally. Chip sign= positive bilaterally Multiple trigger point identified in the cervical paraspinal muscles C2-C7 left side. Lumber spine moter stegnth lower extremities ,thigh and legs 5/5 Right side , 5/5 Left side Results CBC & Chem 7: 02/05/25 04:57 02/05/25 04:57 Labs: Abnormal Lab Results - Last 24 Hours (Table) 02/05/25 02/05/25 Range/Units 04:57 04:57 Immature Gran # 0.11 H (0.00-0.04) X 10*3/uL Neutrophils # 8.91 H (1.80-7.70) X 10*3/uL Lymphocytes # 0.73 L (0.90-5.00) X 10*3/uL Monocytes # 0.18 L (0.20-1.00) X 10*3/uL Eosinophils # 0 L (0.04-0.35) X 10*3/uL Potassium 3.4 L (3.5-5.5) mmol/L Anion Gap 13.20 H (4.00-12.00) mmol/L BUN 8.0 L (9.0-27.0) mg/dL BUN/Creatinine Ratio 10.00 L (12.00-20.00) Ratio Glucose 246 H (70-110) mg/dL Comments: MRI cervical spine= multilevel cervical facet arthropathy, C6-7 level cervical foraminal stenosis, Assessment and Plan Plan: Assessment and plan=1-history of cervical fusion surgery. 2-cervical radiculopathy. 3-cervical spondylosis with cervical facet arthropathy. 4-cervical foraminal stenosis. 5-myofascial pain syndrome cervical paraspinal muscles she Could benefit from cervical epidural steroid injection at C6-7 levels left paramedian approach, she could benefit from trigger point injection cervical paraspinal muscles which can be done at the same time Time with Patient: Less than 30 PQRS Measure Charge Sheet - Pain Location Neck Non-Pharmacological Interventions: Darkened Room, Position/Reposition, Reduce Environmental Stimuli Pharmacological Interventions: Discuss Pain Med Options, PRN Medication PQRS Narrative: Smoking Status Current every day smoker Narcotic Agreement Date Signed 05/11/19 Blood Pressure [Left Arm] 149/93 Blood Pressure [Right Arm] 125/82 Blood Pressure 150/93 Pain Intensity [Neck] 9 Pain Intensity 9 Pain Scale Used Numeric (1 - 10) Scale Used Numeric (1 - 10) Hx Alcohol Use (MH) Yes: rare Home Medications: Ambulatory Orders clonazePAM [KlonoPIN] 0.5 mg PO BID 10/23/19 Methylphenidate HCl [Ritalin] 20 mg PO TID 04/07/23 Prazosin [Minipress] 5 mg PO HS 04/07/23 Albuterol Inhaler [Ventolin Hfa Inhaler] 2 puff INHALATION RT-Q4H PRN 09/30/23 Gabapentin 800 mg PO TID 09/30/23 Mirtazapine 30 mg PO 02/04/25
--- NOTE | 2025-02-06 09:05 | P.PN ---
Progress Note - Text Progress Note Date: 02/06/25 The patient is seen and examined today at bedside. She feels the steroid may have helped a little bit but she is still having significant pain at her neck and particularly at her left upper extremity. She denies any new weakness. She denies any changes in her lower extremities. She denies any facial changes or nausea or vomiting. On exam Her motion is somewhat limited due to her pain. She has the ability to create 5 out of 5 strength but has early breakaway weakness due to pain. She does not have hyperreflexia. Her MRI has been completed and reviewed. I reviewed the imaging as well as the report. There is evidence of disc protrusion and bulging at C4-5. There is some right foraminal encroachment. There is effacement of the anterior thecal sac. Her prior surgical level appears stable and well decompressed at C5-6. Assessment and plan Acute exacerbation of cervical neck pain and upper extremity radiculopathy Disc bulging C4-5 without spinal cord change, but with some foraminal encroachment worse on the right than the left Prior surgical fusion see 5 6 which appears stable and well decompressed At this point we do not have acute plans for surgical intervention. She may have made some progress with the steroid medication and pain management has seen her. They are planning to pursue cervical epidural steroid injections and I think that is appropriate for her. Hopefully this can alleviate her severe exacerbation and allow her to mobilize. If she is becoming more stable it is okay from a spine standpoint for her to discharge to home for follow-up on outpatient basis. I discussed these issues with her and she seemed understand. She should continue her management with pain management service for epidural steroid injections and potential pain management as needed.
[2025-02-06] MEDS: CALCIUM CARBONATE 500 MG CHEWABLE PO PRN (11:46)
[2025-02-06] MEDS: IV FLUID CONTINUATION 1,000 ML IV ONE (14:35)
[2025-02-06] MEDS ORDERED: DEXAMETHASONE SOD PHOSPHATE 10 MG/ML 1 ML VIAL ONE (15:14)
[2025-02-06] MEDS ORDERED: MIDAZOLAM 2 MG/2 ML VIAL ONE (15:14)
[2025-02-06] MEDS ORDERED: ROPIVACAINE 5 MG/ML 30 ML VIAL ONE (15:14)
[2025-02-06] MEDS ORDERED: fentaNYL (PF) 50 MCG/ML 2 ML AMP ONE (15:14)
--- NOTE | 2025-02-06 15:29 | P.PCN ---
Date of Procedure: 02/06/25 Procedure(s) Performed: . PROCEDURE 1. Cervical epidural steroid injection under fluoroscopic guidance, C6-7 (fluoroscopy images available in the radiology department ). 2-trigger point injection cervical paraspinal muscles left side total of 5 trigger point injected on the left side cervical paraspinal muscles. C2 to C7 PREOPERATIVE DIAGNOSIS: 1- Cervical Degenerative Disc Diseases 2- Cervical radiculopathy., 3-myofascial pain syndrome cervical area POSTOPERATIVE DIAGNOSIS: : Same as preop diagnosis. ANESTHESIA: Moderate sedation with Versed 2 mg and fentanyl 100 mcg (sedation start 15:14 ,end 14:22 ) EBL 0 PROCEDURE INDICATION: The patient with neck pain and radiculitis unresponsive to conservative treatment consents for procedure. PROCEDURE DESCRIPTION / TECHNIQUE: The patient was seen and identified in the preoperative area. Risks, benefits, complications, including but not limited to infections ,bleeding , allergic reactions to the medications ,and not complete pain releife, and alternatives were discussed with the patient, the patient agreed to proceed with the procedure and signed the consent. Patient was taken to the OR and time out was completed. The patient was placed in the prone position on the procedure table. A pillow was placed under the patients chest to increase the cervical interlaminar space. The cervical area was prepped and draped in the usual sterile fashion. Vital signs were closely monitored during the procedure. Using anterior-posterior fluoroscopy, the C6-7 interlaminar space was identified and the skin over this site was marked and then infiltrated with 1% lidocaine subcutaneously. Subsequently, a 20-gauge 3-1/2-inch Tuohy epidural needle was inserted and advanced toward the epidural space by means of the ``hanging-drop technique and guided by AP and lateral fluoroscopy, after negative aspiration for blood and CSF and in the absence of paresthesias. then, mixture containing 20 mg Dexamethasone and 2 ml of preservative-free normal saline injected. Needle was withdrawn intact, Then after that the trigger point injection done under sterile technique using 25-gauge needle ropivacaine 0.5% 10 mL used 2 mL injected at each trigger point after negative aspiration patient tolerated the procedure well without any complication, was no paresthesia during the injection Complications= none. Disposition= patient was placed in supine position and transferred to the recovery room area in stable condition and there was no evidence of upper or lower extremity motor or sensory deficit after the procedure patient was discharged from recovery room after discharge criteria met and home discharge instructions was given by the staff and patient will follow with the pain clinic in 2-4 weeks
--- NOTE | 2025-02-06 15:39 | P.PN ---
Subjective Progress Note Date: 02/06/25 HPI: 48-year-old female with a history of C5-6 fusion surgery in the past came in with complaints of severe neck pain stiffness in the neck pain radiating to the left upper extremity and numbness in the left thumb index and middle fingers. 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 Subjective: 02/06/2025: Patient seen at bedside. No significant overnight events. States she still having significant neck pain, ready for the injection today with pain management. No other complaints at this time. Pertinent positives and negatives discussed above, a complete review of systems was preformed and all the other sytems were negative. Vitals Signs Reveiwed. GENERAL: The patient is alert and oriented x3, not in any acute distress. Well developed, well nourished. HEENT: Pupils are round and equally reacting to light. EOMI. No scleral icterus. No conjunctival pallor. Normocephalic, atraumatic. No pharyngeal erythema. No thyromegaly. CARDIOVASCULAR: S1 and S2 present. No murmurs, rubs, or gallops. PULMONARY: Chest is clear to auscultation, no wheezing or crackles. ABDOMEN: Soft, nontender, nondistended, normoactive bowel sounds. No palpable organomegaly. MUSCULOSKELETAL: No joint swelling or deformity. EXTREMITIES: No cyanosis, clubbing, or pedal edema. NEUROLOGICAL: Decreased instrumentation controls engineer strength in the left upper extremity SKIN: No rashes. Data Reveiwed Today: Patient Labs: No new labs Imaging: MRI cervical spine showed no evidence for disc herniation or significant spinal canal stenosis, postsurgical changes with no evidence for significant spinal canal or neural foraminal stenosis, no abnormal postcontrast enhancement, mild multilevel disc degeneration with associated osteoarthritic changes Assessment and plan -Left upper extremity radiculopathy and weakness, secondary to cervical degenerative disease: Continue Solu-Medrol 80 mg IV Q8HR, patient underwent cervical epidural steroid injection and trigger point injection cervical paraspinal muscles left side total of 5 trigger point injections - Hypokalemia potassium will be replaced COPD without any acute exacerbation - Hypertension Neuropathy for which patient is on gabapentin -ADD ADHD, anxiety disorder for which patient is on Ritalin - Continue nicotine use: Counseling was provided DVT prophylaxis: Lovenox GI prophylaxis Protonix F none E potassium replacement protocol N heart healthy diet A as tolerated DVT ppx: Lovenox 40 SQ daily GI ppx: Protonix 40 mg p.o. AC breakfast Code Status: Full code Anticipated discharge place: To home Anticipated discharge time: Likely tomorrow (02/07), needs some observation after undergoing injection today Objective - Vital Signs Vital signs: Vital Signs Temp 97.9 F 02/06/25 07:12 Pulse 94 02/06/25 07:12 Resp 16 02/06/25 07:12 BP 121/81 02/06/25 07:12 Pulse Ox 95 02/06/25 07:12 FiO2 Intake & Output 02/05/25 02/06/25 02/06/25 18:59 06:59 18:59 Intake Total 663 Balance 663 Intake: Oral 663 Other: Voiding Method Toilet Toilet Toilet # Voids 2 3 - Labs CBC & Chem 7: 02/05/25 04:57 02/05/25 04:57
--- NOTE | 2025-02-06 16:24 | FL ---
EXAMINATION TYPE: FL guided pain mgmt statistic Intraoperative/procedural fluoroscopic services were provided. CLINICAL INDICATION:Female, 54 years old with history of CERVICAL EPIDURAL STEROID INJ; , [facility] FINDINGS: Fluoroscopic image demonstrating cervical epidural steroid injection. No radiographic evidence for co mplication. Total fluoroscopy time is 6.6 seconds. DAP: [id number] [id number] Please see the operative/procedural note for further details. [facility], , 02/06/2025 4:21 PM
[2025-02-07 07:54] LABS: HCT 39.8 % (37.2-46.3); HGB 12.7 g/dL (12.0-15.0); MCH 30.2 pg (27.0-32.0); MCHC 31.9 g/dL (32.0-37.0); MCV 94.8 FL (80.0-97.0); NRBC Per 100 WBC 0 X 10*3/uL (0.00-0.01); Platelet Count 370 X 10*3/uL (140-440); RBC 4.20 X 10*6/uL (4.10-5.20); RDW 14.3 % (11.5-14.5); WBC 20.19 X 10*3/uL (4.50-10.00)
[2025-02-07 08:15] LABS: Anion Gap 11.60 mmol/L (4.00-12.00); BUN/Creat Ratio 20.75 Ratio (12.00-20.00); Blood Urea Nitrogen 16.6 mg/dL (9.0-27.0); Calcium 9.2 mg/dL (8.7-10.3); Carbon Dioxide 23.4 mmol/L (21.6-31.8); Chloride 106 mmol/L (96-109); Glucose 179 mg/dL (70-110); Potassium 4.3 mmol/L (3.5-5.5); Sodium 141 mmol/L (135-145)
--- NOTE | 2025-02-07 10:14 | P.PN ---
Subjective Progress Note Date: 02/06/25 HPI: 48-year-old female with a history of C5-6 fusion surgery in the past came in with complaints of severe neck pain stiffness in the neck pain radiating to the left upper extremity and numbness in the left thumb index and middle fingers. 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 Subjective: 02/06/2025: Patient seen at bedside. No significant overnight events. States she still having significant neck pain, ready for the injection today with pain management. No other complaints at this time. 02/07/2025: Patient seen and examined at bedside status post cervical epidural injection day 1, tolerated the procedure well still experiencing pain. Time till effect discussed with patient Pertinent positives and negatives discussed above, a complete review of systems was preformed and all the other sytems were negative. Vitals Signs Reveiwed. GENERAL: The patient is alert and oriented x3, not in any acute distress. Well developed, well nourished. HEENT: Pupils are round and equally reacting to light. EOMI. No scleral icterus. No conjunctival pallor. Normocephalic, atraumatic. No pharyngeal erythema. No thyromegaly. CARDIOVASCULAR: S1 and S2 present. No murmurs, rubs, or gallops. PULMONARY: Chest is clear to auscultation, no wheezing or crackles. ABDOMEN: Soft, nontender, nondistended, normoactive bowel sounds. No palpable organomegaly. MUSCULOSKELETAL: No joint swelling or deformity. EXTREMITIES: No cyanosis, clubbing, or pedal edema. NEUROLOGICAL: Decreased heel packer strength in the left upper extremity SKIN: No rashes. Data Reveiwed Today: Patient Labs: No new labs Imaging: MRI cervical spine showed no evidence for disc herniation or significant spinal canal stenosis, postsurgical changes with no evidence for significant spinal canal or neural foraminal stenosis, no abnormal postcontrast enhancement, mild multilevel disc degeneration with associated osteoarthritic changes Assessment and plan -Left upper extremity radiculopathy and weakness, secondary to cervical degenerative disease: Continue Solu-Medrol 80 mg IV Q8HR, patient underwent cervical epidural steroid injection and trigger point injection cervical paraspinal muscles left side total of 5 trigger point injections Acute leukocytosis, likely reactive, pending resolution (9.95-20.19) - Hypokalemia potassium will be replaced COPD without any acute exacerbation - Hypertension Neuropathy for which patient is on gabapentin -ADD ADHD, anxiety disorder for which patient is on Ritalin - Continue nicotine use: Counseling was provided DVT prophylaxis: Lovenox GI prophylaxis Protonix F none E potassium replacement protocol N heart healthy diet A as tolerated DVT ppx: Lovenox 40 SQ daily GI ppx: Protonix 40 mg p.o. AC breakfast Code Status: Full code Anticipated discharge place: To home Anticipated discharge time: Dispo tomorrow 02/08 pending resolution of acute o nset leukocytosis to 20.19 Objective - Vital Signs Vital signs: Vital Signs Temp 97.5 F L 02/07/25 07:15 Pulse 72 02/07/25 07:15 Resp 16 02/07/25 07:15 BP 128/82 02/07/25 07:15 Pulse Ox 95 02/07/25 07:15 FiO2 Intake & Output 02/06/25 02/07/25 02/07/25 18:59 06:59 18:59 Intake Total 580 240 Balance 580 240 Intake: IV 100 Oral 480 240 Other: Voiding Method Toilet Toilet # Voids 2 1 - Labs CBC & Chem 7: 02/07/25 04:55 02/07/25 04:55 Labs: Abnormal Lab Results - Last 24 Hours (Table) 02/07/25 02/07/25 Range/Units 04:55 04:55 WBC 20.19 H (4.50-10.00) X 10*3/uL MCHC 31.9 L (32.0-37.0) g/dL BUN/Creatinine Ratio 20.75 H (12.00-20.00) Ratio Glucose 179 H (70-110) mg/dL
--- NOTE | 2025-02-07 13:01 | P.PN ---
Progress Note - Text Progress Note Date: 02/07/25 Orthopedic spine: History of present illness: Patient is a pleasant 54-year-old female who is seen examined bedside for follow-up evaluation of her cervical spine. She has a history of C5-6 fusion performed in [address] Mancia. Following surgical intervention she states she has not had any significant difficulty with her cervical spine or upper extremities until 4 days ago, 02/05/2025. She states she is experiencing significant pain with stiffness at her cervical spine with pain radiating down her left upper extremity her thumb, index finger, and middle finger. She has weakness with her left upper extremity with her rail splitter, biceps, and triceps. Prior to her previous surgical intervention she had pain and numbness into her left pinky finger and ring finger. She denies any right upper extremity weakness or radiculopathy. She denies any injuries. She denies diabetes mellitus. Her pain is intractable and she was admitted to the hospital for further evaluation. She has had MRI imaging of her cervical spine which does show adjacent level degenerative change at C4-5. Yesterday she underwent procedural intervention with pain management including C6-7 cervical epidural steroid injection and trigger point injection at the cervical paraspinal muscles on the left for total of 5 trigger points injected at C2-7. She has not felt significantly better yet following the injection. She states she is planning to be continued to be admitted to at least tomorrow. She is admitted to medicine. Her other medical diagnoses include COPD and hypertension. Physical exam: Patient is awake, alert, and oriented 3 Vital signs stable Good chest excursion with deep inspiration and expiration Examination of the cervical spine reveals skin is intact with no abrasions, lacerations, or bruises; no erythema, purulence or signs of infection Stiffness with range of motion throughout range of motion of her cervical spine Well-healed anterior cervical incision site Pain with palpation of the posterior cervical spine Significant weakness of her left upper extremity with rail splitter, biceps, and triceps Motor strength the upper extremity is 3/5 including the rail splitter, biceps, and triceps on the left Increased cervical pain and upper extremity pain on the left with deltoids against resistance Upper extremity strength 5/5 on the right No upper extremity hyperreflexia bilaterally Hoffmans sign negative upper extremity bilaterally Pertinent studies: MRI of the cervical spine taken on 02/05/2025: C4-5 disc osteophyte complex with bilateral facet and uncovertebral joint spondylosis with mild right neuroforaminal stenosis and some compression of the thecal sac; previous surgical intervention at C5-[address] of the cervical spine taken on 02/04/2025: Evidence of previous fusion C5-6 with retained hardware; fracture deformity; C6-7 significant degenerative disc disease with osteophytic spurring and moderate bilateral foraminal stenosis; C3- 4 and C4-5 degenerative disc disease Assessment: Acute left upper extremity radiculopathy and weakness Cervical pain and stiffness History C5-6 anterior cervical decompression and fusion C4-5 disc osteophyte complex and spondylosis with right neuroforaminal narrowing and some compression to the thecal sac C6-7 significant degenerative disc disease with osteophytic spurring and moderate bilateral foraminal stenosis C3-4 and C4-5 degenerative disc disease COPD Hypertension Plan: 1. Patient is a pleasant 54-year-old female who is seen examined bedside for further evaluation of her cervical spine. She has a history of C5-6 fusion performed in [address] Mancia. Following surgical intervention she states she has not had any significant difficulty with her cervical spine or upper extremities until 4 days ago, 02/05/2025. She states she is experiencing significant pain with stiffness at her cervical spine with pain radiating down her left upper extremity her thumb, index finger, and middle finger. She has weakness with her left upper extremity with her rail splitter, biceps, and triceps. Prior to surgical intervention she had pain and numbness into her left pinky finger and ring finger. Cervical MRI imaging does show changes at her cervical spine at C4-5 adjacent to her fusion at C5-6. She has undergone procedural intervention with pain management yesterday with C6-7 cervical epidural steroid injection and trigger point injection at the cervical paraspinal muscles on the left for total of 5 trigger points injected at C2-7. Currently, we will plan to have her continue with conservative treatment following this injection. Were not planning for acute surgical intervention during her admission to the hospital. She will plan to follow-up in the outpatient setting for further evaluation and discuss further treatment options depending how she is progressing following the injection. Patient may follow-up with Charles Gloria PA-C or Dr. Leopoldo Darling at [facility] in 2-3 weeks following discharge. 2. Patient will continue to be seen and examined by medicine for her other medical diagnoses 3. She will continue to be seen by pain management as well
--- NOTE | 2025-02-07 17:12 | P.PN ---
Subjective HPI: 48-year-old female with a history of C5-6 fusion surgery in the past came in with complaints of severe neck pain stiffness in the neck pain radiating to the left upper extremity and numbness in the left thumb index and middle fingers. Patient has decreased alpine patroller in that hand as well patient tingling numbness extends to the forearm is complaining of severe pain in the neck patient had a CT of the cervical spine which showed multilevel degenerative changes in the hardware at C5-C6 level and bilateral neural foraminal stenosis at C6-C7 level. Subjective: 02/06/2025: Patient seen at bedside. No significant overnight events. States she still having significant neck pain, ready for the injection today with pain management. No other complaints at this time. 02/07/2025: Patient seen and examined at bedside status post cervical epidural injection day 1, tolerated the procedure well still experiencing pain. Time till effect discussed with patient Pertinent positives and negatives discussed above, a complete review of systems was preformed and all the other systems were negative. Vitals Signs Reviewed. GENERAL: The patient is alert and oriented x3, not in any acute distress. Well developed, well nourished. HEENT: Pupils are round and equally reacting to light. EOMI. No scleral icterus. No conjunctival pallor. Normocephalic, atraumatic. No pharyngeal erythema. No thyromegaly. CARDIOVASCULAR: S1 and S2 present. No murmurs, rubs, or gallops. PULMONARY: Chest is clear to auscultation, no wheezing or crackles. ABDOMEN: Soft, nontender, nondistended, normoactive bowel sounds. No palpable organomegaly. MUSCULOSKELETAL: No joint swelling or deformity. EXTREMITIES: No cyanosis, clubbing, or pedal edema. NEUROLOGICAL: Decreased alpine patroller strength in the left upper extremity SKIN: No rashes. Data Reviewed Today: 02/08/2025 Patient Labs: WBC 20.19, sodium 141, potassium 4.3, BUN/creatinine 20.75, glucose 176 Imaging: MRI cervical spine showed no evidence for disc herniation or si gnificant spinal canal stenosis, postsurgical changes with no evidence for significant spinal canal or neural foraminal stenosis, no abnormal postcontrast enhancement, mild multilevel disc degeneration with associated osteoarthritic changes Assessment and plan -Left upper extremity radiculopathy and weakness, secondary to cervical degenerative disease: Continue Solu-Medrol 80 mg IV Q8HR, patient underwent cervical epidural steroid injection and trigger point injection cervical paraspi nal muscles left side total of 5 trigger point injections Inadequate pain control with breath-holding spells Acute leukocytosis, likely reactive, pending resolution (9.95-20.19) - Hypokalemia potassium will be replaced COPD without any acute exacerbation - Hypertension Neuropathy for which patient is on gabapentin -ADD ADHD, anxiety disorder for which patient is on Ritalin - Continue nicotine use: Counseling was provided DVT prophylaxis: Lovenox GI prophylaxis Protonix F: none E: potassium replacement protocol N: heart healthy diet A: as tolerated DVT ppx: Lovenox 40 SQ daily GI ppx: Protonix 40 mg p.o. AC breakfast Code Status: Full code Anticipated discharge place: To home Anticipated discharge time: Dispo tomorrow 02/08 pending resolution of acute onset leukocytosis to 20.19 and adequate pain control. Objective - Vital Signs Vital signs: Vital Signs Temp 97.5 F L 02/07/25 07:15 Pulse 72 02/07/25 07:15 Resp 16 02/07/25 07:15 BP 128/82 02/07/25 07:15 Pulse Ox 95 02/07/25 07:15 FiO2 Intake & Output 02/06/25 02/07/25 02/07/25 18:59 06:59 18:59 Intake Total 580 240 Balance 580 240 Intake: IV 100 Oral 480 240 Other: Voiding Method Toilet Toilet # Voids 2 1 - Labs CBC & Chem 7: 02/07/25 04:55 02/07/25 04:55 Labs: Abnormal Lab Results - Last 24 Hours (Table) 02/07/25 02/07/25 Range/Units 04:55 04:55 WBC 20.19 H (4.50-10.00) X 10*3/uL MCHC 31.9 L (32.0-37.0) g/dL BUN/Creatinine Ratio 20.75 H (12.00-20.00) Ratio Glucose 179 H (70-110) mg/dL
[2025-02-08 05:12] LABS: Basophils # (A) 0.04 10*3/uL (0.00-0.10); Basophils % (A) 0.2 %; Eosinophils # (A) 0.00 10*3/uL (0.04-0.35); Eosinophils % (A) 0.0 %; HCT 39.3 % (37.2-46.3); HGB 12.7 g/dL (12.0-15.0); Lymphocytes # (A) 0.75 10*3/uL (0.90-5.00); Lymphocytes % (A) 4.4 %; MCH 30.0 pg (27.0-32.0); MCHC 32.3 g/dL (32.0-37.0); MCV 92.7 fL (80.0-97.0); Monocytes # (A) 0.65 10*3/uL (0.20-1.00); Monocytes % (A) 3.8 %; Neutrophils # (A) 14.74 10*3/uL (1.80-7.70); Neutrophils % (A) 86.8 %; Platelet Count 344 10*3/uL (140-440); RBC 4.24 10*6/uL (4.10-5.20); RDW 14.0 % (11.5-14.5); WBC 16.99 10*3/uL (4.50-10.00)
[2025-02-08 05:43] LABS: ALT 17 U/L (4-34); AST 19 U/L (14-36); African American GFR (CKD) >90 (>60 ml/min/1.73 sqM); Albumin 3.2 g/dL (3.5-5.0); Albumin/Globulin Ratio 1.3; Alkaline Phosphatase 96 U/L (38-126); Anion Gap 8 mmol/L; Blood Urea Nitrogen 22 mg/dL (7-17); Calcium 9.1 mg/dL (8.4-10.2); Carbon Dioxide 23 mmol/L (22-30); Chloride 105 mmol/L (98-107); Globulin 2.4 g/dL; Glucose 195 mg/dL (74-99); Non-African American GFR(CKD) 86 (>60 ml/min/1.73 sqM); Potassium 3.9 mmol/L (3.5-5.1); Sodium 136 mmol/L (137-145); Total Protein 5.6 g/dL (6.3-8.2)
[2025-02-08 11:40] VITALS: BMI 28.3
[2025-02-08] MEDS: diazePAM 2 MG TAB PO PRN (13:18)
--- NOTE | 2025-02-08 16:14 | P.PN ---
Subjective Subjective: HPI: 48-year-old female with a history of C5-6 fusion surgery in the past came in with complaints of severe neck pain stiffness in the neck pain radiating to the left upper extremity and numbness in the left thumb index and middle fingers. Patient has decreased brewmaster in that hand as well patient tingling numbness extends to the forearm is complaining of severe pain in the neck patient had a CT of the cervical spine which showed multilevel degenerative changes in the hardware at C5-C6 level and bilateral neural foraminal stenosis at C6-C7 level. Subjective: 02/06/2025: Patient seen at bedside. No significant overnight events. States she still having significant neck pain, ready for the injection today with pain management. No other complaints at this time. 02/07/2025: Patient seen and examined at bedside status post cervical epidural injection day 1, tolerated the procedure well still experiencing pain. Time till effect discussed with patient 02/08/2025: Patient seen at bedside. Patient reports progressive worsening of left arm weakness. Patient initially experienced carotid weakness and numbness in medial aspect of her hand however started developing weakness in her entire hand extending up to her shoulder from last night. Pinprick sensation absent in dorsal aspect of the left hand however present in palmar aspect. Pertinent positives and negatives discussed above, a complete review of systems was preformed and all the other systems were negative. Vitals Signs Reviewed. GENERAL: The patient is alert and oriented x3, not in any acute distress. Well developed, well nourished. HEENT: Pupils are round and equally reacting to light. EOMI. No scleral icterus. No conjunctival pallor. Normocephalic, atraumatic. No pharyngeal erythema. No thyromegaly. CARDIOVASCULAR: S1 and S2 present. No murmurs, rubs, or gallops. PULMONARY: Chest is clear to auscultation, no wheezing or crackles. ABDOMEN: Soft, nontender, nondistended, normoactive bowel sounds. No palpable organomegaly. MUSCULOSKELETAL: No joint swelling or deformity. EXTREMITIES: No cyanosis, clubbing, or pedal edema. Weakness and numbness extending from left hand up to the shoulder. Pinprick sensation absent to dorsal aspect of the left hand however present on palmar aspect. 3 out of 5 power in the left arm. Reduced brewmaster strength in the left hand compared to the right hand. NEUROLOGICAL: Decreased brewmaster strength in the left upper extremity SKIN: No rashes. Data Reviewed Today: 02/08/2025 Patient Labs: WBC 16.9, hemoglobin 12.7, sodium 136, creatinine 0.7, glucose 195. Imaging: MRI cervical spine showed no evidence for disc herniation or significant spinal canal stenosis, postsurgical changes with no evidence for significant spinal canal or neural foraminal stenosis, no abnormal postcontrast enhancement, mild multilevel disc degeneration with associated osteoarthritic changes Assessment and plan - reached out to ortho for re-evaluate the patient given the progressive symptoms, will consider neurology evaluation. -Left upper extremity radiculopathy and weakness, secondary to cervical degenerative disease: Continue Solu-Medrol 80 mg IV Q8HR, patient underwent c ervical epidural steroid injection and trigger point injection cervical paraspinal muscles left side total of 5 trigger point injections Inadequate pain control with breath-holding spells Acute leukocytosis, likely reactive, pending resolution (9.95-20.19) - Hypokalemia potassium will be replaced COPD without any acute exacerbation - Hypertension Neuropathy for which patient is on gabapentin - ADHD, anxiety disorder for which patient is on Ritalin - Continue nicotine use: Counseling was provided DVT prophylaxis: Lovenox GI prophylaxis Protonix F: none E: potassium replacement protocol N: heart healthy diet A: as tolerated DVT ppx: Lovenox 40 SQ daily GI ppx: Protonix 40 mg p.o. Code Status: Full code Objective - Vital Signs Vital signs: Vital Signs Temp 98.1 F 02/08/25 15:00 Pulse 98 02/08/25 15:00 Resp 16 02/08/25 15:00 BP 160/100 02/08/25 15:00 Pulse Ox 95 02/08/25 15:00 FiO2 Intake & Output 02/07/25 02/08/25 02/08/25 18:59 06:59 18:59 Intake Total 480 720 Balance 480 720 Weight 65.771 kg Intake: Oral 480 720 Other: Voiding Method Toilet Toilet # Voids 3 1 3 - Labs CBC & Chem 7: 02/08/25 04:38 02/08/25 04:38 Labs: Abnormal Lab Results - Last 24 Hours (Table) 02/08/25 02/08/25 Range/Units 04:38 04:38 WBC 16.99 H (4.50-10.00) 10*3/uL Immature Gran # 0.81 H (0.00-0.04) 10*3/uL Neutrophils # 14.74 H (1.80-7.70) 10*3/uL Lymphocytes # 0.75 L (0.90-5.00) 10*3/uL Eosinophils # 0.00 L (0.04-0.35) 10*3/uL Sodium 136 L (137-145) mmol/L BUN 22 H (7-17) mg/dL Glucose 195 H (74-99) mg/dL Total Protein 5.6 L (6.3-8.2) g/dL Albumin 3.2 L (3.5-5.0) g/dL
[2025-02-08] MEDS: amLODIPine 5 MG TAB PO SCH (18:15)
[2025-02-09 07:28] LABS: Basophils # (A) 0.06 10*3/uL (0.00-0.10); Basophils % (A) 0.3 %; Eosinophils # (A) 0.00 10*3/uL (0.04-0.35); Eosinophils % (A) 0.0 %; HCT 41.0 % (37.2-46.3); HGB 13.6 g/dL (12.0-15.0); Lymphocytes # (A) 1.03 10*3/uL (0.90-5.00); Lymphocytes % (A) 5.8 %; MCH 30.7 pg (27.0-32.0); MCHC 33.2 g/dL (32.0-37.0); MCV 92.6 fL (80.0-97.0); Monocytes # (A) 0.80 10*3/uL (0.20-1.00); Monocytes % (A) 4.5 %; Neutrophils # (A) 15.15 10*3/uL (1.80-7.70); Neutrophils % (A) 84.6 %; Platelet Count 374 10*3/uL (140-440); RBC 4.43 10*6/uL (4.10-5.20); RDW 13.7 % (11.5-14.5); WBC 17.90 10*3/uL (4.50-10.00)
[2025-02-09 07:50] LABS: African American GFR (CKD) 89 (>60 ml/min/1.73 sqM); Anion Gap 6 mmol/L; Blood Urea Nitrogen 24 mg/dL (7-17); Calcium 9.3 mg/dL (8.4-10.2); Carbon Dioxide 28 mmol/L (22-30); Chloride 105 mmol/L (98-107); Glucose 150 mg/dL (74-99); Non-African American GFR(CKD) 77 (>60 ml/min/1.73 sqM); Potassium 4.3 mmol/L (3.5-5.1); Sodium 139 mmol/L (137-145)
--- NOTE | 2025-02-09 12:31 | P.PN ---
Progress Note - Text Progress Note Date: 02/09/25 Orthopedic spine: History of present illness: Patient is a pleasant 54-year-old female who is seen examined bedside for follow-up evaluation of her cervical spine. She has a history of C5-6 fusion [place] in [address] Mancia. Following surgical intervention she states she has not had any significant difficulty with her cervical spine or upper extremities until 02/05/2025. She states she is experiencing significant pain with stiffness at her cervical spine with pain radiating down her left upper extremity her thumb, index finger, and middle finger. She has weakness with her left upper extremity with her cd mixer, biceps, and triceps. Prior to her previous surgical intervention she had pain and numbness into her left pinky finger and ring finger. She denies any right upper extremity weakness or radiculopathy. She denies any injuries. She denies diabetes mellitus. Her pain is intractable and she was admitted to the hospital for further evaluation. She has had MRI imaging of her cervical spine which does show C4-5 disc osteophyte complex and spondylosis with right neuroforaminal narrowing and some compression to the thecal sac and C6-7 significant degenerative disc disease with osteophytic spurring and moderate bilateral foraminal stenosis She underwent procedural intervention with pain management including C6-7 cervical epidural steroid injection and trigger point injection at the cervical paraspinal muscles on the left for total of 5 trigger points injected at C2-7. She has not felt significantly better yet following the injection. She feels she has continued to worsen. She is admitted to medicine. Her other medical diagnoses include COPD and hypertension. Consultation is currently placed with neurology. Physical exam: Patient is awake, alert, and oriented 3 Vital signs stable Good chest excursion with deep inspiration and expiration Examination of the cervical spine reveals skin is intact with no abrasions, lacerations, or bruises; no erythema, purulence or signs of infection Stiffness with range of motion throughout range of motion of her cervical spine Well-healed anterior cervical incision site Pain with palpation of the posterior cervical spine Significant weakness of her left upper extremity with cd mixer, biceps, and triceps Motor strength the upper extremity is 3+/5 including the cd mixer, biceps, and triceps on the left Increased cervical pain and upper extremity pain on the left with deltoids against resistance Upper extremity strength 5/5 on the right No upper extremity hyperreflexia bilaterally Hoffmans sign negative upper extremity bilaterally Pertinent studies: MRI of the cervical spine taken on 02/05/2025: C4-5 disc osteophyte complex with bilateral facet and uncovertebral joint spondylosis with mild right neuroforaminal stenosis and some compression of the thecal sac; previous surgical intervention at C5-[address] of the cervical spine taken on 02/04/2025: Evidence of previous fusion C5-6 with retained hardware; fracture deformity; C6-7 significant degenerative disc disease with osteophytic spurring and moderate bilateral foraminal stenosis; C3- 4 and C4-5 degenerative disc disease Assessment: Acute left upper extremity radiculopathy and weakness Cervical pain and stiffness History C5-6 anterior cervical decompression and fusion C4-5 disc osteophyte complex and spondylosis with right neuroforaminal narrowing and some compression to the thecal sac C6-7 significant degenerative disc disease with osteophytic spurring and moderate bilateral foraminal stenosis C3-4 and C4-5 degenerative disc disease COPD Hypertension Plan: 1. Patient is a pleasant 54-year-old female who is seen examined bedside for further evaluation of her cervical spine. She has a history of C5-6 fusion [place] [address] Mancia. Following surgical intervention she states she has not had any significant difficulty with her cervical spine or upper extremities until 02/05/2025. She states she is experiencing significant pain with stiffness at her cervical spine with pain radiating down her left upper extremity her thumb, index finger, and middle finger. She has weakness with her left upper extremity with her cd mixer, biceps, and triceps. Prior to surgical intervention she had pain and numbness into her left pinky finger and ring finge r. Cervical MRI imaging does show changes at her cervical spine at C4-5 adjacent to her fusion at C5-6. She has undergone procedural intervention with pain management yesterday with C6-7 cervical epidural steroid injection and trigger point injection at the cervical paraspinal muscles on the left for total of 5 trigger points injected at C2-7. She has not had any improvement of her symptoms currently and feels like she has been worsening. We again reviewed and discussed her cervical MRI results. She does have some changes at C4-5 and C6-7. Currently, it seems her symptoms appear to be more significant than her imaging would indicate. Consultation with neurology is currently pending. We will see what other evaluation and treatment options neurology is planning to proceed forward with. Currently, we will plan to have her continue with conservative treatment. Were not planning for acute surgical intervention during her admission to the hospital. We will continue to follow up with the patient and will discuss other possible treatment options if she fails conservative treatment. Patient does state she would like to try to avoid surgical intervention. Patient could also have further follow-up with pain management. 2. Patient will continue to be seen and examined by medicine for her other medical diagnoses 3. She will continue to be seen by pain management as well
--- NOTE | 2025-02-09 14:56 | P.PN ---
Subjective HPI: 48-year-old female with a history of C5-6 fusion surgery in the past came in with complaints of severe neck pain stiffness in the neck pain radiating to the left upper extremity and numbness in the left thumb index and middle fingers. 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 Subjective: 02/06: Patient seen at bedside. No significant overnight events. States she still having significant neck pain, ready for the injection today with pain management. No other complaints at this time. 02/07: Patient seen and examined at bedside status post cervical epidural injection day 1, tolerated the procedure well still experiencing pain. Time till effect discussed with patient 02/08: Patient seen at bedside. Patient reports progressive worsening of left arm weakness. Patient initially experienced carotid weakness and numbness in medial aspect of her hand however started developing weakness in her entire hand extending up to her shoulder from last night. Pinprick sensation absent in dorsal aspect of the left hand however present in palmar aspect. 02/09: Patient seen at bedside. Patient reports continuous worsening of left arm weakness. Reports trace pinprick sensation in dorsal aspect of the left hand, previously completely absent in the left hand. Complaints of persistent left- sided neck pain and reduced left arm power against gravity. Pertinent positives and negatives discussed above, a complete review of systems was preformed and all the other systems were negative. Vitals Signs Reviewed. GENERAL: The patient is alert and oriented x3, not in any acute distress. Well developed, well nourished. HEENT: Pupils are round and equally reacting to light. EOMI. No scleral icterus. No conjunctival pallor. Normocephalic, atraumatic. No pharyngeal erythema. No thyromegaly. CARDIOVASCULAR: S1 and S2 present. No murmurs, rubs, or gallops. PULMONARY: Chest is clear to auscultation, no wheezing or crackles. ABDOMEN: Soft, nontender, nondistended, normoactive bowel sounds. No palpable organomegaly. MUSCULOSKELETAL: No joint swelling or deformity. EXTREMITIES: No cyanosis, clubbing, or pedal edema. Weakness and numbness extending from left hand up to the shoulder. Pinprick sensation absent to dorsal aspect of the left hand however present on palmar aspect. 3 out of 5 power in the left arm. 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 NEUROLOGICAL: Decreased graphic arts instructor strength in the left upper extremity SKIN: No rashes. Data Reviewed Today: 02/09/2025 Patient Labs: WBC 17.9, hemoglobin 13.6, sodium 139, potassium 4.3, creatinine 0.85, glucose 150. Imaging: MRI cervical spine showed no evidence for disc herniation or significant spinal canal stenosis, postsurgical changes with no evidence for significant spinal canal or neural foraminal stenosis, no abnormal postcontrast enhancement, mild multilevel disc degeneration with associated osteoarthritic changes Assessment and plan - reached out to ortho for re-evaluate the patient given the progressive symptoms, will consider neurology evaluation. -MRI brain with and without contrast ordered for further evaluation to rule out MS as per neurology. - will consider LP if MRI nremarkable and patient still having symptoms. Neurology on consult, appreciate further recommendations. -Left upper extremity radiculopathy and weakness, secondary to cervical degenerative disease: Continue Solu-Medrol 80 mg IV Q8HR, patient underwent cervical epidural steroid injection and trigger point injection cervical paraspinal muscles left side total of 5 trigger point injections Inadequate pain control with breath-holding spells Acute leukocytosis, likely reactive, pending resolution (9.95-20.19) - Hypokalemia potassium will be replaced COPD without any acute exacerbation - Hypertension -Neuropathy for which patient is on gabapentin - ADHD, anxiety disorder for which patient is on Ritalin - Continue nicotine use: Counseling was provided DVT prophylaxis: Lovenox GI prophylaxis Protonix F: none E: potassium replacement protocol N: heart healthy diet A: as tolerated DVT ppx: Lovenox 40 SQ daily GI ppx: Protonix 40 mg p.o. Code Status: Full code Objective - Vital Signs Vital signs: Vital Signs Temp 98.1 F 02/09/25 13:23 Pulse 92 02/09/25 13:23 Resp 18 02/09/25 13:23 BP 148/98 02/09/25 13:23 Pulse Ox 97 02/09/25 13:23 FiO2 Intake & Output 02/08/25 02/09/25 02/09/25 18:59 06:59 18:59 Intake Total 1080 Balance 1080 Weight 65.771 kg Intake: Oral 1080 Other: Voiding Method Toilet Toilet Toilet # Voids 3 2 - Labs CBC & Chem 7: 02/09/25 07:15 02/09/25 07:15 Labs: Abnormal Lab Results - Last 24 Hours (Table) 02/09/25 02/09/25 Range/Units 07:15 07:15 WBC 17.90 H (4.50-10.00) 10*3/uL Immature Gran # 0.86 H (0.00-0.04) 10*3/uL Neutrophils # 15.15 H (1.80-7.70) 10*3/uL Eosinophils # 0.00 L (0.04-0.35) 10*3/uL BUN 24 H (7-17) mg/dL Glucose 150 H (74-99) mg/dL
--- NOTE | 2025-02-09 14:56 | P.CNNES ---
History of Present Illness Consult date: 02/09/25 Requesting physician: Gustavo Reno Reason for Consult: progressive upper eleft sided weakness History of Present Illness: This is a 54-year-old woman who presents the emergency department because of neck pain with numbness tingling of the left upper extremity. Patient stated that her symptoms began close to a week ago and she feels she has the neck pain over the posterior left neck region that radiates down the hand predominantly over the thumb and index finger. She initially started having numbness and tingling over the thumb and index finger of the left hand as well as some over lateral forearm and median distribution. Now she feels the numbness tingling is also involving the thumb region and more into the arm both anterior and posteriorly. She continues to have significant neck pain. Seems that she had epidural injection to the neck by anesthesiology team but she does not have any relief. She is also having weakness over the left upper extremity. She denies any visual disturbance. Seems today her voice is hoarse which is new. Since hospital visit patient is on Solu-Medrol again without any relief. She denies any weakness numbness in the lower extremity any visual disturbance. Denies any history of multiple sclerosis. She stated that she had neck pain with numbness and tingling over the ulnar distribution and she had imaging to the neck and she told she had cervical changes but was not severe but had cervical fusion and she stated after the surgery that resolved. She stated that her sister has lesion in the brain and her 30 years old and thinks she was given diagnosis of multiple sclerosis and currently . Some of the workup during this hospital visit consisted of: Initial white blood cell is within normal limits but then currently is trending up after Solu-Medrol Calcium is 9.5 on presentation, sodium is 142 magnesium is 1.7 MRI of the cervical spine is reported as no evidence for disc herniation or significant spinal canal stenosis. Postsurgical changes with no evidence for significant spinal canal or neuroforaminal stenosis. No abnormal postcontrast enhancement. Mild multilevel disc degeneration with associated osteoarthritic changes. Review of Systems As per HPI. Past Medical History Past Medical History: COPD, GERD/Reflux, Hypertension, Pneumonia Additional Past Medical History / Comment(s): chronic back pain, lumbar degenerative disc disease, insomnia, hx shingles, hiatal hernia, kidney stones. 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, migraines,; NECK PAIN , Rabies 2/23 Last Myocardial Infarction Date:: 08/27/2016 History of Any Multi-Drug Resistant Organisms: MRSA Date of last positivie culture/infection: 09/22/09 MDRO Source:: neck Past Surgical History: Appendectomy, Back Surgery, Section, Cholecystectomy, Orthopedic Surgery Additional Past Surgical History / Comment(s): Cervical spine fusion with insertion of a metal plate, EGD, colonoscopy, radiofrequency ablation, Past Anesthesia/Blood Transfusion Reactions: No Reported Reaction Additional Past Anesthesia/Blood Transfusion Reaction / Comment(s): CLAUSTROPHOBIA Past Psychological History: ADD/ADHD, Anxiety, Panic Disorder Smoking Status: Current every day smoker Past Alcohol Use History: None Reported Past Drug Use History: None Reported - Past Family History Father Family Medical History: Cancer Additional Family Medical History / Comment(s): Father at age 48 from lung cancer. Mother Family Medical History: Congestive Heart Failure (CHF), CVA/TIA Additional Family Medical History / Comment(s): Mother is alive at age 68. She has suffered from a CVA and has chronic back problems. Patient has 2 brothers and 4 sisters with no major medical problems. Medications and Allergies Home Medications Medication Instructions Recorded Confirmed Type clonazePAM [KlonoPIN] 0.5 mg PO BID 10/23/19 02/04/25 History Methylphenidate HCl [Ritalin] 20 mg PO TID 04/07/23 02/04/25 History Prazosin [Minipress] 5 mg PO HS 04/07/23 02/04/25 History Albuterol Inhaler [Ventolin Hfa 2 puff INHALATION RT-Q4H PRN 09/30/23 02/04/25 History Inhaler] Gabapentin 800 mg PO TID 09/30/23 02/04/25 History Mirtazapine 30 mg PO HS 02/04/25 02/04/25 History Allergies Allergy/AdvReac Type Severity Reaction Status Date / Time ibuprofen Allergy Anaphylaxis Verified 02/04/25 21:16 ketorolac [From Toradol] Allergy Anaphylaxis Verified 02/04/25 21:16 shellfish derived Allergy Anaphylaxis Verified 02/04/25 21:16 tramadol [From Ultram] Allergy Anaphylaxis Verified 02/04/25 21:16 Physical Examination - Vital Signs Vital Signs: Vital Signs Temp Pulse Resp BP BP Pulse Ox 02/09/25 13:23 98.1 F 92 18 148/98 97 02/09/25 07:00 98.3 F 98 138/96 95 02/09/25 01:14 97.9 F 90 16 153/95 95 02/08/25 21:22 95 02/08/25 19:00 98.7 F 95 152/95 97 02/08/25 17:31 93 175/113 97 02/08/25 16:05 160/100 02/08/25 15:00 98.1 F 98 16 160/100 95 Intake and Output 02/08/25 02/09/25 02/09/25 22:59 06:59 14:59 Intake Total 600 Balance 600 Intake: Oral 600 Other: Voiding Method Toilet Toilet # Voids 2 2 GENERAL: The patient is sitting up in a recliner chair and is not in acute distress. NEUROLOGICAL: Higher mental function: The patient is awake, alert, oriented to self, place and time. Patient is following commands. No aphasia and no neglect. Cranial nerves: The pupils are round, equal and reactive to light and accommodation. Visual pascal are full to confrontation throughout. Extraocular movement is intact no nystagmus is noted. Facial sensation is decrease to touch over the V2 focal on left. The facial strength is normal throughout. Hearing is normal bilaterally to hand rub. Tongue is midline and moved [id number] without any difficulty. Has hoarse voice. Shoulder shrug is normal on the right side and was able to lift above gravity but some limitation because of pain. Motor: Gait is normal with normal arm swings. The strength in the left upper extremity is limited because of pain but was 3-4. Otherwise 5 over 5 throughout. Normal tone and bulk. Cerebellum: Normal finger to nose bilaterally. Sensation: Sensation is decrease in patchy distribution on the left upper extremity to touch. Reflexes (right/left): Biceps 3+/3+; triceps 2+/2+; brachioradialis 3+/3+; patellar 2+/2+; ankles2+/2+. Plantars are mute bilaterally. Results - Laboratory Findings CBC and BMP: 02/09/25 07:15 02/09/25 07:15 Abnormal Lab Findings: Abnormal Labs 02/04/25 02/04/25 02/05/25 17:06 17:06 04:57 WBC MCHC Immature Gran # 0.11 H Neutrophils # 8.91 H Lymphocytes # 0.73 L Monocytes # 1.01 H 0.18 L Eosinophils # 0.37 H 0 L Sodium Potassium 3.3 L Anion Gap BUN 6 L BUN/Creatinine Ratio Glucose 120 H Total Bilirubin 0.1 L Total Protein Albumin 02/05/25 02/07/25 02/07/25 04:57 04:55 04:55 WBC 20.19 H MCHC 31.9 L Immature Gran # Neutrophils # Lymphocytes # Monocytes # Eosinophils # Sodium Potassium 3.4 L Anion Gap 13.20 H BUN 8.0 L BUN/Creatinine Ratio 10.00 L 20.75 H Glucose 246 H 179 H Total Bilirubin Total Protein Albumin 02/08/25 02/08/25 02/09/25 04:38 04:38 07:15 WBC 16.99 H 17.90 H MCHC Immature Gran # 0.81 H 0.86 H Neutrophils # 14.74 H 15.15 H Lymphocytes # 0.75 L Monocytes # Eosinophils # 0.00 L 0.00 L Sodium 136 L Potassium Anion Gap BUN 22 H BUN/Creatinine Ratio Glucose 195 H Total Bilirubin Total Protein 5.6 L Albumin 3.2 L 02/09/25 07:15 WBC MCHC Immature Gran # Neutrophils # Lymphocytes # Monocytes # Eosinophils # Sodium Potassium Anion Gap BUN 24 H BUN/Creatinine Ratio Glucose 150 H Total Bilirubin Total Protein Albumin Assessment and Plan Assessment: Is a 54-year-old woman who presents emergency department because of left neck pain rating down her thumb and index finger with paresthesia and over those distribution and having pain and weakness. She feels her symptoms are worse and today she is having hoarseness of the voice. She stated that she had neck pain in 2002 with ulnar distribution and was told she had mild disc bulge and had cer vical fusion in 2002 and after that her symptoms resolved. According to her her sister has lesions in the brain with possible diagnosis of multiple sclerosis in her 30 years old. Paresthesia of the left upper extremity with weakness but the weakness is predominantly limited because of the pain as well as today having dysarthria: Rule out Multiple Screlosis. On examination has brisk reflex of upper which would not be suggestive of cervical radiculopathy but seems more upper motor neuron process. During this hospital visit patient had MRI cervical spine which does not show any significant cervical stenosis. She had a cervical epidural steroid injection over the C6-C7 region History of neck pain with paresthesia over the left ulnar distribution in 2003: Unsure if had ?upper motor neuron process mimicking as cervical radiculopathy and result had cervical fusion History Anxiety History Depression Plan: Proceed with MRI of the brain with and without I ordered JOSE, TSH, vitamin B12, ESR, homocystine, methylmalonic acid, CK level as well as rheumatoid factor. Depending on the lab will consider pursuing with lumbar puncture Recommend EMG with nerve conduction study of the left upper extremity as an outpatient and that can be coordinated by her orthopedic surgeon, Dr. Darling. The patient is on gabapentin 800 mg 3 times daily as well as Solu-Medrol 80 mg every 8 hours. If patient does not have multiple sclerosis then recommend switching the Solu-Medrol from 80 mg every 8 hours to 500 mg every 12 hours over 3 to 5 days. Orthopedic surgery team is on board Will defer the rest of the medical management the primary other specialist Thank you for the consultation Time with Patient: Greater than 30
[2025-02-09] MEDS ORDERED: ALPRAZolam 0.25 MG TAB PO PRN (15:34)
[2025-02-09 22:05] LABS: Creatine Kinase 14 U/L (26-186); Rheumatoid Factor, Qnt <15 IU/mL (0-15); Vitamin B12 413.0 pg/mL (200.0-944.0)
[2025-02-10 05:43] LABS: Basophils # (A) 0.05 10*3/uL (0.00-0.10); Basophils % (A) 0.2 %; Eosinophils # (A) 0.01 10*3/uL (0.04-0.35); Eosinophils % (A) 0.0 %; HCT 39.0 % (37.2-46.3); HGB 12.8 g/dL (12.0-15.0); Lymphocytes # (A) 0.96 10*3/uL (0.90-5.00); Lymphocytes % (A) 4.7 %; MCH 30.3 pg (27.0-32.0); MCHC 32.8 g/dL (32.0-37.0); MCV 92.2 fL (80.0-97.0); Monocytes # (A) 1.14 10*3/uL (0.20-1.00); Monocytes % (A) 5.6 %; Neutrophils # (A) 17.50 10*3/uL (1.80-7.70); Neutrophils % (A) 85.3 %; Platelet Count 354 10*3/uL (140-440); RBC 4.23 10*6/uL (4.10-5.20); RDW 14.1 % (11.5-14.5); WBC 20.52 10*3/uL (4.50-10.00)
[2025-02-10 06:17] LABS: African American GFR (CKD) >90 (>60 ml/min/1.73 sqM); Anion Gap 9 mmol/L; Blood Urea Nitrogen 23 mg/dL (7-17); Calcium 9.4 mg/dL (8.4-10.2); Carbon Dioxide 25 mmol/L (22-30); Chloride 102 mmol/L (98-107); Glucose 124 mg/dL (74-99); Non-African American GFR(CKD) >90 (>60 ml/min/1.73 sqM); Potassium 4.5 mmol/L (3.5-5.1); Sodium 136 mmol/L (137-145)
[2025-02-10] MEDS: ALPRAZolam 0.25 MG TAB PO PRN (11:35)
--- NOTE | 2025-02-10 11:37 | P.PN ---
Progress Note - Text Progress Note Date: 02/10/25 Orthopedic spine: History of present illness: Patient is a pleasant 54-year-old female who is seen examined bedside for follow-up evaluation of her cervical spine. She has a history of C5-6 fusion [place] [address] Mancia. Following surgical intervention she states she has not had any significant difficulty with her cervical spine or upper extremities until 02/05/2025. Since being seen and examined yesterday she has not had any improvement of her symptoms. She states she is experiencing significant pain with stiffness at her cervical spine with pain radiating down her left upper extremity her thumb, index finger, and middle finger. 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 Prior to her previous surgical intervention she had pain and numbness into her left pinky finger and ring finger. She d enies any right upper extremity weakness or radiculopathy. She denies any injuries. She denies diabetes mellitus. Her pain is intractable and she was admitted to the hospital for further evaluation. She has had MRI imaging of her cervical spine which does show C4-5 disc osteophyte complex and spondylosis with right neuroforaminal narrowing and some compression to the thecal sac and C6-7 significant degenerative disc disease with osteophytic spurring and moderate bilateral foraminal stenosis She underwent procedural intervention with pain management including C6-7 cervical epidural steroid injection and trigger point injection at the cervical paraspinal muscles on the left for total of 5 trigger points injected at C2-7. She has not felt significantly better yet following the injection. She feels she has continued to worsen. She is admitted to medicine. Her other medical diagnoses include COPD and hypertension. Patient has been seen by neurology. They have ordered brain MRI imaging. They have also ordered multiple labs. Depending on her brain MRI imaging she may be having a lumbar puncture today. Patient has a family history of multiple sclerosis that was previously not known. 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 Motor strength the upper extremity is 3+/5 including the fruit loader machine operator, biceps, and triceps on the left Increased cervical pain and upper extremity pain on the left with deltoids against resistance Upper extremity strength 5/5 on the right No upper extremity hyperreflexia bilaterally Hoffmans sign negative upper extremity bilaterally Pertinent studies: MRI of the cervical spine taken on 02/05/2025: C4-5 disc osteophyte complex with bilateral facet and uncovertebral joint spondylosis with mild right neuroforaminal stenosis and some compression of the thecal sac; previous surgical intervention at C5-[address] of the cervical spine taken on 02/04/2025: Evidence of previous fusion C5-6 with retained hardware; fracture deformity; C6-7 significant degenerative disc disease with osteophytic spurring and moderate bilateral foraminal stenosis; C3- 4 and C4-5 degenerative disc disease Assessment: Acute left upper extremity radiculopathy and weakness Cervical pain and stiffness History C5-6 anterior cervical decompression and fusion C4-5 disc osteophyte complex and spondylosis with right neuroforaminal narrowing and some compression to the thecal sac C6-7 significant degenerative disc disease with osteophytic spurring and moderate bilateral foraminal stenosis C3-4 and C4-5 degenerative disc disease COPD Hypertension Family history of multiple sclerosis Plan: 1. Patient is a pleasant 54-year-old female who is seen examined bedside for further evaluation of her cervical spine. She has a history of C5-6 fusion [place] in [address] Mancia. Following surgical intervention she states she has not had any significant difficulty with her cervical spine or upper extremities until 02/05/2025. She states she is experiencing significant pain with stiffness at her cervical spine with pain radiating down her left upper extremity her thumb, index finger, and middle finger. 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 Prior to surgical intervention she had pain and numbness into her left pinky finger and ring finger. Cervical MRI imaging does show changes at her cervical spine at C4-5 adjacent to her fusion at C5-6. She has undergone procedural intervention with pain management yesterday with C6-7 cervical epidural steroid injection and trigger point injection at the cervical paraspinal muscles on the left for total of 5 trigger points injected at C2-7. She has not had any improvement of her symptoms currently and feels like she has been worsening. We again reviewed and discussed her cervical MRI results. She does have some changes at C4-5 and C6-7. Currently, it seems her symptoms appear to be more significant than her imaging would indicate. Patient has been seen by neurology. They have ordered brain MRI imaging. They have also ordered multiple labs. Depending on her brain MRI imaging she may be having a lumbar puncture today. Patient has a family history of multiple sclerosis that was previously not known. We do feel she should continue with further evaluation with neurology at this time. Currently, we will plan to have her continue with conservative treatment. Were not planning for acute surgical intervention during her admission to the hospital. We will continue to follow up with the patient and will discuss other possible treatment options if she fails conservative treatment. Patient does state she would like to try to avoid surgical intervention. 2. Patient will continue to be seen and examined by medicine for her other medical diagnoses
--- NOTE | 2025-02-10 12:14 | P.PN ---
Subjective Progress Note Date: 02/10/25 I am follow-up with the patient and she feels about the same. She continues to have left neck pain with left upper extremity weakness with paresthesia. She continues to have hoarse voice. Denies any new neurological issues. Pending MRI of the brain. Objective - Vital Signs Vital signs: Vital Signs Temp 98.2 F 02/10/25 07:00 Pulse 91 02/10/25 07:00 Resp 20 02/10/25 07:00 BP 161/97 02/10/25 07:00 Pulse Ox 96 02/10/25 07:00 FiO2 Intake & Output 02/09/25 02/10/25 02/10/25 18:59 06:59 18:59 Intake Total 1020 Balance 1020 Intake: Oral 1020 Other: Voiding Method Toilet Toilet Toilet # Voids 1 2 - Exam GENERAL: The patient is sitting up in a recliner chair and is not in acute distress. NEUROLOGICAL: Higher mental function: The patient is awake, alert, oriented to self, place and time. Patient is following commands. No aphasia and no neglect. Cranial nerves: The pupils are round, equal and reactive to light and accommoda tion. Visual pascal are full to confrontation throughout. Extraocular movement is intact no nystagmus is noted. Facial sensation is decrease to touch over the V2 focal on left. The facial strength is normal throughout. Hearing is normal bilaterally to hand rub. Tongue is midline and moved [id number] without any difficulty. Has hoarse voice. Shoulder shrug is normal on the right side and was able to lift above gravity but some limitation because of pain. Motor: Gait is normal with normal arm swings. The strength in the left upper extremity is limited because of pain but was 3-4. Otherwise 5 over 5 throughout. Normal tone and bulk. Cerebellum: Normal finger to nose bilaterally. Sensation: Sensation is decrease in patchy distribution on the left upper extremity to touch. Reflexes (right/left): Biceps 3+/3+; triceps 2+/2+; brachioradialis 3+/3+; patellar 2+/2+; ankles2+/2+. Plantars are mute bilaterally. Some of the workup during this hospital visit consisted of: Initial white blood cell is within normal limits but then currently is trending up after Solu-Medrol ESR: 10 CK 14 TSH: 0.288 and Free T4: 0.45 JOSE Negative RF: <15 B12: 413 Homocyteine: 16.5 Calcium is 9.5 on presentation, sodium is 142 magnesium is 1.7 MRI of the cervical spine is reported as no evidence for disc herniation or significant spinal canal stenosis. Postsurgical changes with no evidence for significant spinal canal or neuroforaminal stenosis. No abnormal postcontrast enhancement. Mild multilevel disc degeneration with associated osteoarthritic changes. - Labs CBC & Chem 7: 02/10/25 04:47 02/10/25 04:47 Labs: Abnormal Lab Results - Last 24 Hours (Table) 02/08/25 02/09/25 02/10/25 Range/Units 04:38 07:15 04:47 WBC 20.52 H (4.50-10.00) 10*3/uL Immature Gran # 0.86 H (0.00-0.04) 10*3/uL Neutrophils # 17.50 H (1.80-7.70) 10*3/uL Monocytes # 1.14 H (0.20-1.00) 10*3/uL Eosinophils # 0.01 L (0.04-0.35) 10*3/uL Sodium (137-145) mmol/L BUN (7-17) mg/dL Glucose (74-99) mg/dL Creatine Kinase 14 L (26-186) U/L Homocysteine 16.50 H (4.00-14.00) UMOL/L TSH 0.277 L (0.350-5.500) UIU/ML Free (T4) Reflex I 0.45 L (0.80-1.80) ng/dL 02/10/25 Range/Units 04:47 WBC (4.50-10.00) 10*3/uL Immature Gran # (0.00-0.04) 10*3/uL Neutrophils # (1.80-7.70) 10*3/uL Monocytes # (0.20-1.00) 10*3/uL Eosinophils # (0.04-0.35) 10*3/uL Sodium 136 L (137-145) mmol/L BUN 23 H (7-17) mg/dL Glucose 124 H (74-99) mg/dL Creatine Kinase (26-186) U/L Homocysteine (4.00-14.00) UMOL/L TSH (0.350-5.500) UIU/ML Free (T4) Reflex I (0.80-1.80) ng/dL Assessment and Plan Assessment: Is a 54-year-old woman who presents emergency department because of left neck pain rating down her thumb and index finger with paresthesia and over those distribution and having pain and weakness. She feels her symptoms are worse and today she is having hoarseness of the voice. She stated that she had neck pain in 2002 with ulnar distribution and was told she had mild disc bulge and had cervical fusion in 2002 and after that her symptoms resolved. According to her her sister has lesions in the brain with possible diagnosis of multiple sclerosis in her 30 years old. Paresthesia of the left upper extremity with weakness but the weakness is predominantly limited because of the pain as well as today having dysarthria: Rule out Multiple Screlosis. On examination has brisk reflex of upper which would not be suggestive of cervical radiculopathy but seems more upper motor neuron process. During this hospital visit patient had MRI cervical spine which does not show any significant cervical stenosis. She had a cervical epidural steroid injection over the C6-C7 region History of neck pain with paresthesia over the left ulnar distribution in 2003: Unsure if had ?upper motor neuron process mimicking as cervical radiculopathy and result had cervical fusion History Anxiety History Depression Plan: Proceed with MRI of the brain with and without Pending folate, methylmalonic acid. Anesthesiology team is consulted. Recommend EMG with nerve conduction study of the left upper extremity as an outpatient and that can be coordinated by her orthopedic surgeon, Dr. Darling. The patient is on gabapentin 800 mg 3 times daily as well as Solu-Medrol 80 mg every 8 hours. If patient does not have multiple sclerosis then recommend switching the Solu-Medrol from 80 mg every 8 hours to 500 mg every 12 hours over 3 to 5 days. Orthopedic surgery team is on board Will defer the rest of the medical management the primary other specialist Time with Patient: Less than 30
--- NOTE | 2025-02-10 12:43 | MR ---
INDICATION: Patient age:Female; 54 years old; Reason for study: L upper ext weakness, hoarseness of voice, r/o MS; PHH. COMPARISON: CT brain C-spine 11/02/2023, CT brain 11/16/2022, MR brain 06/15/2017. TECHNIQUE: Multi planar, multi sequence imaging was performed through the brain. The patient was then given 6.5 cc of Gadobutrol intravenously and multi planar, T1 fat-saturation images were obtained. M S protocol utilized. FINDINGS: Motion degraded examination. The andersen-white junctions, ventricular system, basal cisterns appear unremarkable. Age appropriate par enchymal volume. Diffusion-weighted imaging shows no evidence of restricted diffusion to suggest acut e/subacute infarct. Intracranial arterial flow voids are maintained. Midline structures show no abnor mality. Patchy areas of high T2/FLAIR signal intensity are seen within the supratentorial periventric ular and subcortical white matter. Largest measures up to 5 mm within the right parietal subcortical white matter (series 802, image 18). Approximately 25 foci identified. The susceptibility weighted im ages do not reveal any evidence for micro-hemorrhage. After administration of gadolinium, no abnormal enhancement is seen. The bone marrow signal is within normal limits. The paranasal sinuses and globes are unremarkable. IMPRESSION: Motion degraded exam. 1. No evidence of intracranial mass, acute/subacute infarct, or abnormal enhancement. 2. Nonspecific nonenhancing mild white matter changes. Etiologies include chronic migraines, small ve ssel ischemic disease, demyelinating disease, vasculitis, Lyme disease versus other considerations. N o enhancement to suggest active demyelination. [facility], , 02/10/2025 12:41 PM
--- NOTE | 2025-02-10 14:15 | P.PN ---
Subjective HPI: 48-year-old female with a history of C5-6 fusion surgery in the past came in with complaints of severe neck pain stiffness in the neck pain radiating to the left upper extremity and numbness in the left thumb index and middle fingers. Patient has decreased biochemist in that hand as well patient tingling numbness extends to the forearm is complaining of severe pain in the neck patient had a CT of the cervical spine which showed multilevel degenerative changes in the hardware at C5-C6 level and bilateral neural foraminal stenosis at C6-C7 level. Subjective: 02/06: Patient seen at bedside. No significant overnight events. States she still having significant neck pain, ready for the injection today with pain management. No other complaints at this time. 02/07: Patient seen and examined at bedside status post cervical epidural injection day 1, tolerated the procedure well still experiencing pain. Time till effect discussed with patient 02/08: Patient seen at bedside. Patient reports progressive worsening of left arm weakness. Patient initially experienced carotid weakness and numbness in medial aspect of her hand however started developing weakness in her entire hand extending up to her shoulder from last night. Pinprick sensation absent in dorsal aspect of the left hand however present in palmar aspect. 02/09: Patient seen at bedside. Patient reports continuous worsening of left arm weakness. Reports trace pinprick sensation in dorsal aspect of the left hand, previously completely absent in the left hand. Complaints of persistent left- sided neck pain and reduced left arm power against gravity. 02/10: Patient seen at bedside. Patient reports continuous worsening of left arm weakness. Left hand biochemist reduced, similar to previous days. Reports reduced pain in the neck. Pending MRI brain today. Pertinent positives and negatives discussed above, a complete review of systems was preformed and all the other systems were negative. Vitals Signs Reviewed. GENERAL: The patient is alert and oriented x3, not in any acute distress. Well developed, well nourished. HEENT: Pupils are round and equally reacting to light. EOMI. No scleral icterus. No conjunctival pallor. Normocephalic, atraumatic. No pharyngeal erythema. No thyromegaly. CARDIOVASCULAR: S1 and S2 present. No murmurs, rubs, or gallops. PULMONARY: Chest is clear to auscultation, no wheezing or crackles. ABDOMEN: Soft, nontender, nondistended, normoactive bowel sounds. No palpable organomegaly. MUSCULOSKELETAL: No joint swelling or deformity. EXTREMITIES: No cyanosis, clubbing, or pedal edema. Weakness and numbness extending from left hand up to the shoulder. Pinprick sensation absent to dorsal aspect of the left hand however present on palmar aspect. 3 out of 5 power in the left arm. Reduced biochemist strength in the left hand compared to the right hand. NEUROLOGICAL: Decreased biochemist strength in the left upper extremity SKIN: No rashes. Data Reviewed Today: 02/10/2025 Patient Labs: WBC 20.52, hemoglobin 12.8, sodium 136, calcium 12.5, glucose 124, JOSE screen negative, rheumatoid factor less than 15 TSH 0.277, free T4 0.45 Imaging: MRI cervical spine showed no evidence for disc herniation or significant spinal canal stenosis, postsurgical changes with no evidence for significant spinal canal or neural foraminal stenosis, no abnormal postcontrast enhancement, mild multilevel disc degeneration with associated osteoarthritic changes Assessment and plan #Radicular neck pain with left upper extremity numbness. - reached out to ortho for re-evaluate the patient given the progressive symptoms, will consider neurology evaluation. -MRI brain with and without contrast ordered for further evaluation to rule out MS as per neurology. - will consider LP if MRI nremarkable and patient still having symptoms. Neurology on consult, appreciate further recommendations. -Left upper extremity radiculopathy and weakness, secondary to cervical degenerative disease: Continue Solu-Medrol 80 mg IV Q8HR, patient underwent cervical epidural steroid injection and trigger point injection cervical paraspinal muscles left side total of 5 trigger point injections Inadequate pain control with breath-holding spells Acute leukocytosis, likely reactive, pending resolution (9.95-20.19) #Subclinical hypothyroidism TSH 0.277, FT4 0.45. Patient asymptomatic. Patient will be having MRI brain for evaluation of potential pituitary mass/other etiologies #Hypokalemia Hypokalemia potassium will be replaced Chronic: #COPD without any acute exacerbation #Hypertension #Neuropathy #ADHD/anxiety disorder for which patient is on Ritalin - Continue nicotine use: Counseling was provided - Continue home medications DVT prophylaxis: Lovenox GI prophylaxis Protonix F: none E: potassium replacement protocol N: heart healthy diet A: as tolerated DVT ppx: Lovenox 40 SQ daily GI ppx: Protonix 40 mg p.o. Code Status: Full code Attestation/ Psych Social Worker Note: Attestation to Progress Note, Participation (I saw and evaluated the patient with the Resident, and I reviewed and discussed the patient with the Resident and agree with the Resident's findings and plans as documented above., management reviewed and discussed), I agree with findings & plan, Provider Signature (SALONI SHORE, [facility]) Objective - Vital Signs Vital signs: Vital Signs Temp 98.2 F 02/10/25 07:00 Pulse 91 02/10/25 07:00 Resp 20 02/10/25 07:00 BP 161/97 02/10/25 07:00 Pulse Ox 96 02/10/25 07:00 FiO2 Intake & Output 02/09/25 02/10/25 02/10/25 18:59 06:59 18:59 Intake Total 1020 Balance 1020 Intake: Oral 1020 Other: Voiding Method Toilet Toilet # Voids 1 2 - Labs CBC & Chem 7: 02/20/25 08:23 02/19/25 00:06 Labs: Abnormal Lab Results - Last 24 Hours (Table) 02/08/25 02/09/25 02/10/25 Range/Units 04:38 07:15 04:47 WBC 20.52 H (4.50-10.00) 10*3/uL Immature Gran # 0.86 H (0.00-0.04) 10*3/uL Neutrophils # 17.50 H (1.80-7.70) 10*3/uL Monocytes # 1.14 H (0.20-1.00) 10*3/uL Eosinophils # 0.01 L (0.04-0.35) 10*3/uL Sodium (137-145) mmol/L BUN (7-17) mg/dL Glucose (74-99) mg/dL Creatine Kinase 14 L (26-186) U/L Homocysteine 16.50 H (4.00-14.00) UMOL/L TSH 0.277 L (0.350-5.500) UIU/ML Free (T4) Reflex I 0.45 L (0.80-1.80) ng/dL 02/10/25 Range/Units 04:47 WBC (4.50-10.00) 10*3/uL Immature Gran # (0.00-0.04) 10*3/uL Neutrophils # (1.80-7.70) 10*3/uL Monocytes # (0.20-1.00) 10*3/uL Eosinophils # (0.04-0.35) 10*3/uL Sodium 136 L (137-145) mmol/L BUN 23 H (7-17) mg/dL Glucose 124 H (74-99) mg/dL Creatine Kinase (26-186) U/L Homocysteine (4.00-14.00) UMOL/L TSH (0.350-5.500) UIU/ML Free (T4) Reflex I (0.80-1.80) ng/dL
--- NOTE | 2025-02-10 14:39 | P.PCN ---
Date of Procedure: 02/10/25 Description of Procedure: PREOPERATIVE DIAGNOSIS: Rule out multiple sclerosis POSTOPERATIVE DIAGNOSIS: Rule out multiple sclerosis PROCEDURE: Lumbar puncture SURGEON: Gee Bucio ANESTHESIA: Local with 1% lidocaine; IV sedation : None EBL: None. Specimens removed: 12 mL of CSF Complications: None PROCEDURE INDICATION: Ms. Winston is a 54-year-old female with left upper extremity numbness, tingling sensation. Family history of multiple sclerosis. Neurologist want to rule out multiple sclerosis. Her labs report reviewed, and Lovenox held for 24 hours. Procedure description : Patient was seen and identified . Patient signed the informed consent. Positioned in sitting. Patient's lumbar spine area exposed and cleaned with ChloraPrep 2. Timeout completed. Critical pause was taken, and sterile drapes applied. 3 mL of 1% lidocaine used for skin and subcutaneous tissue at L4-L5 interspinous space. After that using 20-gauge 3.5 inch spinal needle used to enter the interspinous space with 1 attempt without any difficulty. CSF collected, 3 mL each tube 4. Needle removed intact. And Band-Aid applied. RN requested to do 1 L of fluid over 60 minutes time to minimize post dural puncture headache. Complications: None Patient is hemodynamically stable throughout the procedure. Disposition: Patient, and RN given instructions regarding to see any worsening lumbar back pain, fever, lower extremity weakness, bowel bladder incontinence. Recommended them to contact anesthesia immediately.
[2025-02-10 15:02] LABS: Glucose,CSF 96 mg/dL (40-70)
[2025-02-10 15:13] LABS: CSF Tube Volume 3.0
[2025-02-10 15:14] LABS: Nucleated Cells, CSF 0 u/L (0-5); Red Blood Cell,CSF 2 u/L (0-10)
[2025-02-11 03:47] LABS: HCT 40.3 % (37.2-46.3); HGB 13.4 g/dL (12.0-15.0); MCH 30.6 pg (27.0-32.0); MCHC 33.3 g/dL (32.0-37.0); MCV 92.0 fL (80.0-97.0); Platelet Count 349 10*3/uL (140-440); RBC 4.38 10*6/uL (4.10-5.20); RDW 13.9 % (11.5-14.5); WBC 22.39 10*3/uL (4.50-10.00)
[2025-02-11 04:06] LABS: African American GFR (CKD) 78 (>60 ml/min/1.73 sqM); Anion Gap 9 mmol/L; Blood Urea Nitrogen 29 mg/dL (7-17); Calcium 9.3 mg/dL (8.4-10.2); Carbon Dioxide 29 mmol/L (22-30); Chloride 99 mmol/L (98-107); Glucose 179 mg/dL (74-99); Non-African American GFR(CKD) 68 (>60 ml/min/1.73 sqM); Potassium 4.1 mmol/L (3.5-5.1); Sodium 137 mmol/L (137-145)
[2025-02-11 06:15] LABS: Lymphocytes # (M) 1.34 k/uL (1.0-4.8); Metamyelocytes # (M) 0.22 k/uL (0); Monocytes # (M) 0.90 k/uL (0-1.0); Neutrophils # (M) 20.15 k/uL (1.3-7.7); Neutrophils % (M) 83 %; Total Cells Counted 200
--- NOTE | 2025-02-11 10:56 | P.PN ---
Progress Note - Text Progress Note Date: 02/11/25 Orthopedic spine: History of present illness: Patient is a pleasant 54-year-old female who is seen examined bedside for follow-up evaluation of her cervical spine. She has a history of C5-6 fusion performed in [address] Mancia. Following surgical intervention she states she has not had any significant difficulty with her cervical spine or upper extremities until 02/05/2025. Since being seen and examined yesterday she has not had any improvement of her symptoms. She states she is experiencing significant pain with stiffness at her cervical spine with pain radiating down her left upper extremity her thumb, index finger, and middle finger. She has weakness with her left upper extremity with her tableau administrator, biceps, and triceps. Prior to her previous surgical intervention she had pain and numbness into her left pinky finger and ring finger. She d enies any right upper extremity weakness or radiculopathy. She denies any injuries. She denies diabetes mellitus. Her pain is intractable and she was admitted to the hospital for further evaluation. She has had MRI imaging of her cervical spine which does show C4-5 disc osteophyte complex and spondylosis with right neuroforaminal narrowing and some compression to the thecal sac and C6-7 significant degenerative disc disease with osteophytic spurring and moderate bilateral foraminal stenosis. She also has some hoarseness in her voice over the past 3 days. She underwent procedural intervention with pain management including C6-7 cervical epidural steroid injection and trigger point injection at the cervical paraspinal muscles on the left for total of 5 trigger points injected at C2-7. She has not felt significantly better yet following the injection. She feels she has continued to worsen. She is admitted to medicine. Her other medical diagnoses include COPD and hypertension. Patient has been seen by neurology. Lumbar puncture was performed yesterday. Results are pending. Brain MRI imaging was performed which showed nonspecific nonenhancing white matter changes; no evidence of intracranial mass, abnormal enhancement, or acute/subacute infarct. Patient has a family history of multiple sclerosis that was previously not known. Physical exam: Patient is awake, alert, and oriented 3 Vital signs stable Good chest excursion with deep inspiration and expiration Examination of the cervical spine reveals skin is intact with no abrasions, lacerations, or bruises; no erythema, purulence or signs of infection Stiffness with range of motion throughout range of motion of her cervical spine Well-healed anterior cervical incision site Pain with palpation of the posterior cervical spine Significant weakness of her left upper extremity with tableau administrator, biceps, and triceps Motor strength the upper extremity is 3+/5 including the tableau administrator and triceps on the left Motor strength the upper extremities 4/5 including the biceps Increased cervical pain and upper extremity pain on the left with deltoids against resistance Upper extremity strength 5/5 on the right No upper extremity hyperreflexia bilaterally Hoffmans sign negative upper extremity bilaterally Pertinent studies: MRI of the brain taken on 02/10/2025: Nonspecific nonenhancing white matter changes; no evidence of intracranial mass, abnormal enhancement, or acute/subacute infarct MRI of the cervical spine taken on 02/05/2025: C4-5 disc osteophyte complex with bilateral facet and uncovertebral joint spondylosis with mild right neuroforaminal stenosis and some compression of the thecal sac; previous surgical intervention at C5-[address] of the cervical spine taken on 02/04/2025: Evidence of previous fusion C5-6 with retained hardware; fracture deformity; C6-7 significant degenerative disc disease with osteophytic spurring and moderate bilateral foraminal stenosis; C3- 4 and C4-5 degenerative disc disease Assessment: Acute left upper extremity radiculopathy and weakness Cervical pain and stiffness History C5-6 anterior cervical decompression and fusion C4-5 disc osteophyte complex and spondylosis with right neuroforaminal narrowing and some compression to the thecal sac C6-7 significant degenerative disc disease with osteophytic spurring and moderate bilateral foraminal stenosis C3-4 and C4-5 degenerative disc disease COPD Hypertension Family history of multiple sclerosis Plan: 1. Patient is a pleasant 54-year-old female who is seen examined bedside for further evaluation of her cervical spine. She has a history of C5-6 fusion [place] [address] Mancia. Following surgical intervention she states she has not had any significant difficulty with her cervical spine or upper extremities until 02/05/2025. She states she is experiencing significant pain with stiffness at her cervical spine with pain radiating down her left upper extremity her thumb, index finger, and middle finger. She has weakness with her left upper extremity with her tableau administrator, biceps, and triceps. Prior to surgical intervention she had pain and numbness into her left pinky finger and ring finger. Cervical MRI imaging does show changes at her cervical spine at C4-5 adjacent to her fusion at C5-6. She has undergone procedural intervention with pain management yesterday with C6-7 cervical epidural steroid injection and trigger point injection at the cervical paraspinal muscles on the left for total of 5 trigger points injected at C2-7. She has not had any improvement of her symptoms currently. Her symptoms have remained stable since yesterday. We again reviewed and discussed her cervical MRI results. She does have some changes at C4-5 and C6-7. Currently, it seems her symptoms appear to be more significant than her imaging would indicate. Patient has been seen by neurology. Lumbar puncture was performed yesterday. Results are pending. Brain MRI imaging was performed which showed nonspecific nonenhancing white matter changes; no evidence of intracranial mass, abnormal enhancement, or acute/subacute infarct. Patient has a family history of multiple sclerosis that was previously not known. We do feel she should continue with further evaluation with neurology at this time. Patient was discussed with neurology this morning who may plan to increase her IV steroids. They also discussed possibility of EMG in the outpatient setting. Currently, we will plan to have her continue with conservative treatment. Were not planning for acute surgical intervention during her admission to the hospital. We will continue to follow up with the patient and will discuss other possible treatment options if she fails conservative treatment. Patient does state she would like to try to avoid surgical intervention. 2. Patient will continue to be seen and examined by medicine for her other medical diagnoses
[2025-02-11] MEDS ORDERED: methylPREDNISolone SOD SUCCI 125 MG/2 ML VIAL IV SCH (11:30)
[2025-02-11] MEDS ORDERED: methylPREDNISolone SOD SUCCIN 500 MG in SODIUM CHLORIDE 0.9% 100 ML IVPB SCH (12:00)
[2025-02-11] MEDS ORDERED: DEXTROSE 50% SYRINGE 50 ML IVP PRN ×2 (13:32)
--- NOTE | 2025-02-11 15:01 | P.PN ---
Subjective Progress Note Date: 02/11/25 I am following up with the patient and patient feels about the same. She had MRI of the brain which was negative for any acute process or any the . Shows nonspecific white matter changes. Also had CSF study which shows elevated glucose but otherwise unremarkable. Objective - Vital Signs Vital signs: Vital Signs Temp 98.1 F 02/11/25 07:05 Pulse 95 02/11/25 07:05 Resp 18 02/11/25 07:05 BP 163/99 02/11/25 07:05 Pulse Ox 97 02/11/25 07:05 FiO2 Intake & Output 02/10/25 02/11/25 02/11/25 18:59 06:59 18:59 Intake Total 984 Balance 984 Intake: Oral 984 Other: Voiding Method Toilet Toilet Toilet # Voids 1 2 - Exam GENERAL: The patient is sitting up in a recliner chair and is not in acute distress. NEUROLOGICAL: Higher mental function: The patient is awake, alert, oriented to self, place and time. Patient is following commands. No aphasia and no neglect. Cranial nerves: The pupils are round, equal and reactive to light and accommodation. Visual pascal are full to confrontation throughout. Extraocular movement is intact no nystagmus is noted. Facial sensation is decrease to touch over the V2 focal on left. The facial strength is normal throughout. Hearing is normal bilaterally to hand rub. Tongue is midline and moved [id number] without any difficulty. Has hoarse voice. Shoulder shrug is normal on the right side and was able to lift above gravity but some limitation because of pain. Motor: Gait is normal with normal arm swings. The strength in the left upper extremity is limited because of pain but was 3-4. Otherwise 5 over 5 throughout. Normal tone and bulk. Cerebellum: Normal finger to nose bilaterally. Sensation: Sensation is decrease in patchy distribution on the left upper extrem ity to touch. Reflexes (right/left): Biceps 2+/2+; triceps 2+/2+; brachioradialis 3+/2+; patellar 2+/2+; ankles2+/2+. Plantars are mute bilaterally. Some of the workup during this hospital visit consisted of: Initial white blood cell is within normal limits but then currently is trending up after Solu-Medrol ESR: 10 CK 14 TSH: 0.288 and Free T4: 0.45 JOSE Negative RF: <15 B12: 413 Homocyteine: 16.5 Calcium is 9.5 on presentation, sodium is 142 magnesium is 1.7 CSF: clear, colorless, nucleated cell 0, csf rbc 2, glucose 96 and protein is 47. MRI of the cervical spine is reported as no evidence for disc herniation or significant spinal canal stenosis. Postsurgical changes with no evidence for significant spinal canal or neuroforaminal stenosis. No abnormal postcontrast enhancement. Mild multilevel disc degeneration with associated osteoarthritic changes. MRI Brain: - Labs CBC & Chem 7: 02/11/25 03:26 02/11/25 03:26 Labs: Abnormal Lab Results - Last 24 Hours (Table) 02/10/25 02/11/25 02/11/25 Range/Units 14:00 03:26 03:26 WBC 22.39 H (4.50-10.00) 10*3/uL Immature Gran # 1.25 H (0.00-0.04) 10*3/uL Neutrophils # (Manual) 20.15 H (1.3-7.7) k/uL Metamyelocytes # (Man) 0.22 H (0) k/uL BUN 29 H (7-17) mg/dL Glucose 179 H (74-99) mg/dL CSF Glucose 96 H (40-70) mg/dL Microbiology - Last 24 Hours (Table) 02/10/25 14:00 CSF Gram Stain - Preliminary Cerebral Spinal Fluid Assessment and Plan Assessment: Is a 54-year-old woman who presents emergency department because of left neck pain rating down her thumb and index finger with paresthesia and over those distribution and having pain and weakness. She feels her symptoms are worse and today she is having hoarseness of the voice. She stated that she had neck pain in 2003 with ulnar distribution and was told she had mild disc bulge and had cervical fusion in 2002 and after that her symptoms resolved. According to her her sister has lesions in the brain with possible diagnosis of multiple sclerosis in her 30 years old. Hher neck pain with radicular symptoms with paresthesia and weakness Seems possible cervical radiculopathy. MRI Brain and cervical spine is negative for acute or subacute lesion or any enhancement suggestive for Multiple Sclerosis or stroke. She had a cervical epidural steroid injection over the C6-C7 region without relief History of neck pain with paresthesia over the left ulnar distribution in 2002 and resolved after surgery History Anxiety History Depression Plan: I personally reviewed the MRI and agree there is no acute or subacute process or enhancement. On T2, there is one lesion over the left periventricular over anterior horn seems concerning for ?demylinating disease. Otherwise rest are nonspecific. Pending Oligoclonal band. Pending folate, methylmalonic acid. Recommend EMG with nerve conduction study of the left upper extremity as an outpatient and that can be coordinated by her orthopedic surgeon, Dr. Darling. The patient is on gabapentin 800 mg 3 times daily as well as Solu-Medrol 80 mg every 8 hours. Orthopedic surgery team is on board Recommend correction of thyroid to primary team. Will defer the rest of the medical management the primary other specialist Dr. Santiago will resume neurology service tomorrow A.M. Time with Patient: Less than 30
[2025-02-11] MEDS: HYDROcodone/APAP 7.5-325MG 1 EACH TAB PO PRN (15:03)
[2025-02-11] MEDS: methylPREDNISolone SOD SUCCI 125 MG/2 ML VIAL IV SCH (17:04)
[2025-02-11 17:52] LABS: Glucose,Whole Blood 138 mg/dL (70-110)
[2025-02-11] MEDS: INSULIN LISPRO (HumaLOG) 100 UNIT/ML 10 mL VL SQ SCH (17:53)
[2025-02-11 19:48] LABS: Glucose,Whole Blood 128 mg/dL (70-110)
[2025-02-12 05:30] LABS: Glucose,Whole Blood 190 mg/dL (70-110)
--- NOTE | 2025-02-12 05:37 | P.PN ---
Subjective Progress Note Date: 02/11/25 HPI: 48-year-old female with a history of C5-6 fusion surgery in the past came in with complaints of severe neck pain stiffness in the neck pain radiating to the left upper extremity and numbness in the left thumb index and middle fingers. Patient has decreased benzol still operator in that hand as well patient tingling numbness extends to the forearm is complaining of severe pain in the neck patient had a CT of the cervical spine which showed multilevel degenerative changes in the hardware at C5-C6 level and bilateral neural foraminal stenosis at C6-C7 level. Subjective: 02/06: Patient seen at bedside. No significant overnight events. States she still having significant neck pain, ready for the injection today with pain management. No other complaints at this time. 02/07: Patient seen and examined at bedside status post cervical epidural injection day 1, tolerated the procedure well still experiencing pain. Time till effect discussed with patient 02/08: Patient seen at bedside. Patient reports progressive worsening of left arm weakness. Patient initially experienced carotid weakness and numbness in medial aspect of her hand however started developing weakness in her entire hand extending up to her shoulder from last night. Pinprick sensation absent in dorsal aspect of the left hand however present in palmar aspect. 02/09: Patient seen at bedside. Patient reports continuous worsening of left arm weakness. Reports trace pinprick sensation in dorsal aspect of the left hand, previously completely absent in the left hand. Complaints of persistent left- sided neck pain and reduced left arm power against gravity. 02/10: Patient seen at bedside. Patient reports continuous worsening of left arm weakness. Left hand benzol still operator reduced, similar to previous days. Reports reduced pain in the neck. Pending MRI brain today. 02/11/2025 Patient is seen in follow-up today currently sitting up in bed reporting she has been up and back and forth to the bathroom with no difficulties although continues with upper back and neck pain that has been ongoing. Patient is reporting she is receiving IV morphine although asking for an increase as she reports it wears off and has severe 10/10 pain. Will continue with morphine as prescribed and as needed and will adjust Burgin slightly and increase the dose. Patient is maintained on IV steroids and increasing the dose per neurology recommendations. Orthopedics following continuing with conservative management until neurological workup has been completed. Discussing possible surgical intervention given patient remains symptomatic. Pertinent positives and negatives discussed above, a complete review of systems was preformed and all the other systems were negative. Vitals Signs Reviewed. GENERAL: The patient is alert and oriented x3, not in any acute distress. Well developed, well nourished. HEENT: Pupils are round and equally reacting to light. EOMI. No scleral icterus. No conjunctival pallor. Normocephalic, atraumatic. No pharyngeal erythema. No thyromegaly. CARDIOVASCULAR: S1 and S2 present. No murmurs, rubs, or gallops. PULMONARY: Chest is clear to auscultation, no wheezing or crackles. ABDOMEN: Soft, nontender, nondistended, normoactive bowel sounds. No palpable organomegaly. MUSCULOSKELETAL: No joint swelling or deformity. EXTREMITIES: No cyanosis, clubbing, or pedal edema. Weakness and numbness extending from left hand up to the shoulder. Pinprick sensation absent to dorsal aspect of the left hand however present on palmar aspect. 3 out of 5 strength in the left arm. Reduced benzol still operator strength in the left hand compared to the right hand. NEUROLOGICAL: Decreased benzol still operator strength in the left upper extremity SKIN: No rashes. Imaging: MRI cervical spine showed no evidence for disc herniation or significant spinal canal stenosis, postsurgical changes with no evidence for significant spinal canal or neural foraminal stenosis, no abnormal postcontrast enhancement, mild multilevel disc degeneration with associated osteoarthritic changes Assessment and plan: #Radicular neck pain with left upper extremity numbness. - ortho has reevaluated the patient given the progressive symptoms, and neurology following -MRI brain with and without contrast negative and not suggestive of demyelinization -Status post LP which is unremarkable other than elevated glucose Neurology following, has increased IV steroids, appreciate further fredis mmendations. #Left upper extremity radiculopathy and weakness, secondary to cervical degenerative disease: Continue Solu-Medrol 80 mg IV Q8HR, patient underwent cervical epidural steroid injection and trigger point injection cervical paraspinal muscles left side total of 5 trigger point injections Inadequate pain control with breath-holding spells Acute leukocytosis, likely reactive, secondary to steroid use #Subclinical hypothyroidism TSH 0.277, FT4 0.45. Patient asymptomatic. MRI with negative #Hypokalemia -Hypokalemia potassium improved after replacement Chronic: #COPD without any acute exacerbation #Hypertension #Neuropathy #ADHD/anxiety disorder for which patient is on Ritalin - Continue nicotine use: Counseling was provided - Continue home medications DVT prophylaxis: Lovenox GI prophylaxis Protonix Full code Plan: Patient being followed by multiple consultations including neurology and orthopedics maintained on large dose IV steroids which is being increased per neurology. Patient is status post MRI which have been negative. Orthopedics recommending conservative management at this time and awaiting neurological workup as patient remains symptomatic and may need possible surgical intervention versus close outpatient follow-up Continue pain management and have adjusted slightly. Continue with bowel regimen Patient with high-dose steroids no history of diabetes although elevated blood sugars, will add sliding scale Repeat labs ordered for a.m. Will discuss further with neurology and orthopedics regarding surgical intervention or discharge planning Patient will likely need pain management in the outpatient setting as well The impression and plan of care has been dictated by Carmel Talbot, Nurse Practitioner as directed. Dr. Francisco MD I have performed a history and examination and MDM of this patient, discussed the same with the dictator, and agree with the dictator's assessment and plan as written ,documented as a scribe. Based on total visit time, I have performed more than 50% of the visit. Objective - Vital Signs Vital signs: Vital Signs Temp 98.1 F 02/11/25 07:05 Pulse 95 02/11/25 07:05 Resp 18 02/11/25 07:05 BP 163/99 02/11/25 07:05 Pulse Ox 97 02/11/25 07:05 FiO2 Intake & Output 02/10/25 02/11/25 02/11/25 18:59 06:59 18:59 Intake Total 984 Balance 984 Intake: Oral 984 Other: Voiding Method Toilet Toilet Toilet # Voids 1 2 - Labs CBC & Chem 7: 02/11/25 03:26 02/11/25 03:26 Labs: Abnormal Lab Results - Last 24 Hours (Table) 02/10/25 02/11/25 02/11/25 Range/Units 14:00 03:26 03:26 WBC 22.39 H (4.50-10.00) 10*3/uL Immature Gran # 1.25 H (0.00-0.04) 10*3/uL Neutrophils # (Manual) 20.15 H (1.3-7.7) k/uL Metamyelocytes # (Man) 0.22 H (0) k/uL BUN 29 H (7-17) mg/dL Glucose 179 H (74-99) mg/dL CSF Glucose 96 H (40-70) mg/dL Microbiology - Last 24 Hours (Table) 02/10/25 14:00 CSF Gram Stain - Preliminary Cerebral Spinal Fluid
[2025-02-12 06:15] LABS: Glucose,Whole Blood 124 mg/dL (70-110)
[2025-02-12 07:30] LABS: HCT 39.6 % (37.2-46.3); HGB 13.0 g/dL (12.0-15.0); MCH 30.4 pg (27.0-32.0); MCHC 32.8 g/dL (32.0-37.0); MCV 92.5 fL (80.0-97.0); Platelet Count 351 10*3/uL (140-440); RBC 4.28 10*6/uL (4.10-5.20); RDW 14.2 % (11.5-14.5); WBC 24.92 10*3/uL (4.50-10.00)
[2025-02-12 07:55] LABS: ALT 29 U/L (4-34); AST 20 U/L (14-36); African American GFR (CKD) >90 (>60 ml/min/1.73 sqM); Albumin 3.3 g/dL (3.5-5.0); Albumin/Globulin Ratio 1.5; Alkaline Phosphatase 91 U/L (38-126); Anion Gap 8 mmol/L; Blood Urea Nitrogen 23 mg/dL (7-17); Calcium 8.9 mg/dL (8.4-10.2); Carbon Dioxide 29 mmol/L (22-30); Chloride 101 mmol/L (98-107); Globulin 2.2 g/dL; Glucose 135 mg/dL (74-99); Non-African American GFR(CKD) 86 (>60 ml/min/1.73 sqM); Potassium 4.3 mmol/L (3.5-5.1); Sodium 138 mmol/L (137-145); Total Protein 5.5 g/dL (6.3-8.2)
[2025-02-12 08:51] LABS: Lymphocytes # (M) 1.99 k/uL (1.0-4.8); Monocytes # (M) 1.74 k/uL (0-1.0); Neutrophils # (M) 21.18 k/uL (1.3-7.7); Neutrophils % (M) 85 %; Total Cells Counted 100
--- NOTE | 2025-02-12 11:00 | P.PN ---
Progress Note - Text Progress Note Date: 02/12/25 Orthopedic spine: History of present illness: Patient is a pleasant 54-year-old female who is seen examined bedside for follow-up evaluation of her cervical spine. She has a history of C5-6 fusion performed in [address] Mancia. Following surgical intervention she states she has not had any significant difficulty with her cervical spine or upper extremities until 02/05/2025. Since being seen and examined yesterday she has not had any improvement of her symptoms. She states she is experiencing significant pain with stiffness at her cervical spine with pain radiating down her left upper extremity her thumb, index finger, and middle finger. She has weakness with her left upper extremity with her pot liner, biceps, and triceps. Prior to her previous surgical intervention she had pain and numbness into her left pinky finger and ring finger. She d enies any right upper extremity weakness or radiculopathy. She denies any injuries. She denies diabetes mellitus. Her pain is intractable and she was admitted to the hospital for further evaluation. She has had MRI imaging of her cervical spine which does show C4-5 disc osteophyte complex and spondylosis with right neuroforaminal narrowing and some compression to the thecal sac and C6-7 significant degenerative disc disease with osteophytic spurring and moderate bilateral foraminal stenosis. She also has some hoarseness in her voice over the past 3 days. She underwent procedural intervention with pain management including C6-7 cervical epidural steroid injection and trigger point injection at the cervical paraspinal muscles on the left for total of 5 trigger points injected at C2-7. She has not felt significantly better yet following the injection. She feels she has continued to worsen. She is admitted to medicine. Her other medical diagnoses include COPD and hypertension. Patient has been seen by neurology. Lumbar puncture was performed yesterday. Results are pending. Brain MRI imaging was performed which showed nonspecific nonenhancing white matter changes; no evidence of intracranial mass, abnormal enhancement, or acute/subacute infarct. Patient has a family history of multiple sclerosis that was previously not known. Physical exam: Patient is awake, alert, and oriented 3 Vital signs stable Good chest excursion with deep inspiration and expiration Examination of the cervical spine reveals skin is intact with no abrasions, lacerations, or bruises; no erythema, purulence or signs of infection Stiffness with range of motion throughout range of motion of her cervical spine Well-healed anterior cervical incision site Pain with palpation of the posterior cervical spine Significant weakness of her left upper extremity with pot liner, biceps, and triceps Motor strength the upper extremity is 3+/5 including the pot liner and triceps on the left Motor strength the upper extremities 4/5 including the biceps Increased cervical pain and upper extremity pain on the left with deltoids against resistance Upper extremity strength 5/5 on the right No upper extremity hyperreflexia bilaterally Hoffmans sign negative upper extremity bilaterally Pertinent studies: MRI of the brain taken on 02/10/2025: Nonspecific nonenhancing white matter changes; no evidence of intracranial mass, abnormal enhancement, or acute/subacute infarct MRI of the cervical spine taken on 02/05/2025: C4-5 disc osteophyte complex with bilateral facet and uncovertebral joint spondylosis with mild right neuroforaminal stenosis and some compression of the thecal sac; previous surgical intervention at C5-[address] of the cervical spine taken on 02/04/2025: Evidence of previous fusion C5-6 with retained hardware; fracture deformity; C6-7 significant degenerative disc disease with osteophytic spurring and moderate bilateral foraminal stenosis; C3- 4 and C4-5 degenerative disc disease Assessment: Acute left upper extremity radiculopathy and weakness Cervical pain and stiffness History C5-6 anterior cervical decompression and fusion C4-5 disc osteophyte complex and spondylosis with right neuroforaminal narrowing and some compression to the thecal sac C6-7 significant degenerative disc disease with osteophytic spurring and moderate bilateral foraminal stenosis C3-4 and C4-5 degenerative disc disease COPD Hypertension Family history of multiple sclerosis Plan: 1. Patient is a pleasant 54-year-old female who is seen examined bedside for further evaluation of her cervical spine. She has a history of C5-6 fusion [place] [address] Mancia. Following surgical intervention she states she has not had any significant difficulty with her cervical spine or upper extremities until 02/05/2025. She states she is experiencing significant pain with stiffness at her cervical spine with pain radiating down her left upper extremity her thumb, index finger, and middle finger. She has weakness with her left upper extremity with her pot liner, biceps, and triceps. Prior to surgical intervention she had pain and numbness into her left pinky finger and ring finger. Cervical MRI imaging does show changes at her cervical spine at C4-5 adjacent to her fusion at C5-6. She has undergone procedural intervention with pain management yesterday with C6-7 cervical epidural steroid injection and trigger point injection at the cervical paraspinal muscles on the left for total of 5 trigger points injected at C2-7. She has not had any improvement of her symptoms currently. Her symptoms have remained stable since yesterday. We again reviewed and discussed her cervical MRI results. She does have some changes at C4-5 and C6-7. Currently, it seems her symptoms appear to be more significant than her imaging would indicate. Patient has been seen by neurology. Lumbar puncture was performed. Results are pending. Brain MRI imaging was performed which showed nonspecific nonenhancing white matter changes; no evidence of intracranial mass, abnormal enhancement, or acute/subacute infarct. Patient has a family history of multiple sclerosis that was previously not known. We do feel she should continue with further evaluation with neurology at this time. Other lab results are currently pending. They also discussed possibility of EMG in the outpatient setting. Currently, we will plan to have her continue with conservative treatment. Were not planning for acute surgical intervention during her admission to the hospital. We will continue to follow up with the patient and will discuss other possible treatment options if she fails conservative treatment. Patient does state she would like to try to avoid surgical intervention. If she is unable to improve with further treatment during her admission, we c onsider surgical intervention with anterior cervical decompression and fusion. We will discuss this possibility tomorrow following further recommendations with neurology is on the patient's progress. 2. Patient will continue to be seen and examined by medicine for her other medical diagnoses
[2025-02-12 12:26] LABS: Glucose,Whole Blood 118 mg/dL (70-110)
--- NOTE | 2025-02-12 16:35 | P.PN ---
Subjective Progress Note Date: 02/12/25 HPI: 48-year-old female with a history of C5-6 fusion surgery in the past came in with complaints of severe neck pain stiffness in the neck pain radiating to the left upper extremity and numbness in the left thumb index and middle fingers. Patient has decreased epic ambulatory analyst in that hand as well patient tingling numbness extends to the forearm is complaining of severe pain in the neck patient had a CT of the cervical spine which showed multilevel degenerative changes in the hardware at C5-C6 level and bilateral neural foraminal stenosis at C6-C7 level. Subjective: 02/06: Patient seen at bedside. No significant overnight events. States she still having significant neck pain, ready for the injection today with pain management. No other complaints at this time. 02/07: Patient seen and examined at bedside status post cervical epidural injection day 1, tolerated the procedure well still experiencing pain. Time till effect discussed with patient 02/08: Patient seen at bedside. Patient reports progressive worsening of left arm weakness. Patient initially experienced carotid weakness and numbness in medial aspect of her hand however started developing weakness in her entire hand extending up to her shoulder from last night. Pinprick sensation absent in dorsal aspect of the left hand however present in palmar aspect. 02/09: Patient seen at bedside. Patient reports continuous worsening of left arm weakness. Reports trace pinprick sensation in dorsal aspect of the left hand, previously completely absent in the left hand. Complaints of persistent left- sided neck pain and reduced left arm power against gravity. 02/10: Patient seen at bedside. Patient reports continuous worsening of left arm weakness. Left hand epic ambulatory analyst reduced, similar to previous days. Reports reduced pain in the neck. Pending MRI brain today. 02/11/2025 Patient is seen in follow-up today currently sitting up in bed reporting she has been up and back and forth to the bathroom with no difficulties although continues with upper back and neck pain that has been ongoing. Patient is reporting she is receiving IV morphine although asking for an increase as she reports it wears off and has severe 10/10 pain. Will continue with morphine as prescribed and as needed and will adjust [place] slightly and increase the dose. Patient is maintained on IV steroids and increasing the dose per neurology re commendations. Orthopedics following continuing with conservative management until neurological workup has been completed. Discussing possible surgical intervention given patient remains symptomatic. 02/12: Patient seen at bedside. Persistent numbness and weakness of the left arm. Patient reports pain and numbness worsening and frustrated with same. Pertinent positives and negatives discussed above, a complete review of systems was preformed and all the other systems were negative. Vitals Signs Reviewed. GENERAL: The patient is alert and oriented x3, not in any acute distress. Well developed, well nourished. HEENT: Pupils are round and equally reacting to light. EOMI. No scleral icterus. No conjunctival pallor. Normocephalic, atraumatic. No pharyngeal erythema. No thyromegaly. CARDIOVASCULAR: S1 and S2 present. No murmurs, rubs, or gallops. PULMONARY: Chest is clear to auscultation, no wheezing or crackles. ABDOMEN: Soft, nontender, nondistended, normoactive bowel sounds. No palpable organomegaly. MUSCULOSKELETAL: No joint swelling or deformity. EXTREMITIES: No cyanosis, clubbing, or pedal edema. Weakness and numbness extending from left hand up to the shoulder. Pinprick sensation absent to dorsal aspect of the left hand however present on palmar aspect. 3 out of 5 strength in the left arm. Reduced epic ambulatory analyst strength in the left hand compared to the right hand. NEUROLOGICAL: Decreased epic ambulatory analyst strength in the left upper extremity SKIN: No rashes. Imaging: MRI cervical spine showed no evidence for disc herniation or significant spinal canal stenosis, postsurgical changes with no evidence for significant spinal canal or neural foraminal stenosis, no abnormal postcontrast enhancement, mild multilevel disc degeneration with associated osteoarthritic changes Assessment and plan: #Radicular neck pain with left upper extremity numbness. -Currently on Solu-Medrol if not improved Ortho will consider surgery. - ortho has reevaluated the patient given the progressive symptoms, and neurology following -MRI brain with and without contrast negative and not suggestive of demyelinization -Status post LP which is unremarkable other than elevated glucose Neurology following, has increased IV steroids, appreciate further recommendations. #Left upper extremity radiculopathy and weakness, secondary to cervical degenerative disease: Continue Solu-Medrol 80 mg IV Q8HR, patient underwent cervical epidural steroid injection and trigger point injection cervical paraspinal muscles left side total of 5 trigger point injections Inadequate pain control with breath-holding spells Acute leukocytosis, likely reactive, secondary to steroid use #Subclinical hypothyroidism TSH 0.277, FT4 0.45. Patient asymptomatic. Pending T3 levels MRI with negative #Hypokalemia -Hypokalemia potassium improved after replacement Chronic: #COPD without any acute exacerbation #Hypertension #Neuropathy #ADHD/anxiety disorder for which patient is on Ritalin - Continue nicotine use: Counseling was provided - Continue home medications DVT prophylaxis: Lovenox GI prophylaxis Protonix Full code Objective - Vital Signs Vital signs: Vital Signs Temp 98.4 F 02/12/25 08:00 Pulse 84 02/12/25 08:00 Resp 20 02/12/25 08:00 BP 131/87 02/12/25 08:00 Pulse Ox 96 02/12/25 08:00 FiO2 Intake & Output 02/11/25 02/12/25 02/12/25 18:59 06:59 18:59 Intake Total 444 Balance 444 Intake: Oral 444 Other: Voiding Method Toilet Toilet Toilet # Voids 4 4 - Labs CBC & Chem 7: 02/20/25 08:23 02/19/25 00:06 Labs: Abnormal Lab Results - Last 24 Hours (Table) 02/11/25 02/11/25 02/12/25 Range/Units 17:51 19:46 05:29 WBC (4.50-10.00) 10*3/uL MPV (9.5-12.2) fL Immature Gran # (0.00-0.04) 10*3/uL Neutrophils # (Manual) (1.3-7.7) k/uL Monocytes # (Manual) (0-1.0) k/uL BUN (7-17) mg/dL Glucose (74-99) mg/dL POC Glucose (mg/dL) 138 H 128 H 190 H (70-110) mg/dL Total Protein (6.3-8.2) g/dL Albumin (3.5-5.0) g/dL Free T3 pg/mL (2.30-4.20) pg/mL 02/12/25 02/12/25 02/12/25 Range/Units 06:13 06:54 07:09 WBC 24.92 H (4.50-10.00) 10*3/uL MPV 9.4 L (9.5-12.2) fL Immature Gran # 1.68 H (0.00-0.04) 10*3/uL Neutrophils # (Manual) 21.18 H (1.3-7.7) k/uL Monocytes # (Manual) 1.74 H (0-1.0) k/uL BUN 23 H (7-17) mg/dL Glucose 135 H (74-99) mg/dL POC Glucose (mg/dL) 124 H (70-110) mg/dL Total Protein 5.5 L (6.3-8.2) g/dL Albumin 3.3 L (3.5-5.0) g/dL Free T3 pg/mL 0.90 L (2.30-4.20) pg/mL 02/12/25 Range/Units 12:22 WBC (4.50-10.00) 10*3/uL MPV (9.5-12.2) fL Immature Gran # (0.00-0.04) 10*3/uL Neutrophils # (Manual) (1.3-7.7) k/uL Monocytes # (Manual) (0-1.0) k/uL BUN (7-17) mg/dL Glucose (74-99) mg/dL POC Glucose (mg/dL) 118 H (70-110) mg/dL Total Protein (6.3-8.2) g/dL Albumin (3.5-5.0) g/dL Free T3 pg/mL (2.30-4.20) pg/mL Microbiology - Last 24 Hours (Table) 02/10/25 14:00 CSF Gram Stain - Preliminary Cerebral Spinal Fluid CSF Culture - Preliminary Assessment and Plan Assessment: Attestation Attestation/ Display Trimmer Note: Attestation to Progress Note, Participation (I saw and evaluated the patient with the Resident, and I reviewed and discussed the patient with the Resident and agree with the Resident's findings and plans as documented above., management reviewed and discussed), I agree with findings & plan, Provider Signature (CHELSEA SHORE, HOLDEN Otoole Time with Patient: Greater than 30
[2025-02-12 17:27] LABS: Glucose,Whole Blood 110 mg/dL (70-110)
[2025-02-12 20:10] LABS: Glucose,Whole Blood 155 mg/dL (70-110)
[2025-02-13 06:09] LABS: Glucose,Whole Blood 117 mg/dL (70-110)
[2025-02-13 07:30] LABS: ALT 27 U/L (4-34); AST 16 U/L (14-36); African American GFR (CKD) 88 (>60 ml/min/1.73 sqM); Albumin 3.3 g/dL (3.5-5.0); Albumin/Globulin Ratio 1.5; Alkaline Phosphatase 89 U/L (38-126); Anion Gap 5 mmol/L; Blood Urea Nitrogen 26 mg/dL (7-17); Calcium 9.0 mg/dL (8.4-10.2); Carbon Dioxide 30 mmol/L (22-30); Chloride 102 mmol/L (98-107); Globulin 2.2 g/dL; Glucose 95 mg/dL (74-99); Non-African American GFR(CKD) 77 (>60 ml/min/1.73 sqM); Potassium 4.4 mmol/L (3.5-5.1); Sodium 137 mmol/L (137-145); Total Protein 5.5 g/dL (6.3-8.2)
[2025-02-13 07:52] LABS: HCT 39.6 % (37.2-46.3); HGB 12.8 g/dL (12.0-15.0); MCH 29.8 pg (27.0-32.0); MCHC 32.3 g/dL (32.0-37.0); MCV 92.3 fL (80.0-97.0); Platelet Count 358 10*3/uL (140-440); RBC 4.29 10*6/uL (4.10-5.20); RDW 14.6 % (11.5-14.5); WBC 23.22 10*3/uL (4.50-10.00)
[2025-02-13 10:04] LABS: Lymphocytes # (M) 3.02 k/uL (1.0-4.8); Monocytes # (M) 1.63 k/uL (0-1.0); Neutrophils # (M) 18.58 k/uL (1.3-7.7); Neutrophils % (M) 80 %; Total Cells Counted 100
--- NOTE | 2025-02-13 11:43 | P.PN ---
Progress Note - Text Progress Note Date: 02/13/25 The patient is seen and examined at bedside. We have been following patient closely through her hospitalization. She for extremity particularly with movement and motion. She says she still feels significant numbness burning down her left arm to her left hand. She denies any problems in her right upper extremity. She does not feel that the medications or the injections have given her any significant relief. She still feels weak at the left upper extremity. On exam His pain with palpation around her shoulder and left upper arm she has global weakness at her left upper extremity with without specific pattern. I do not note any specific hyperreflexia. There is global weakness but limited effort at the left upper extremity. There is no clonus The MRI is again reviewed She has prior decompression fusion at C5-6 which appears stable there is disc bulging at C4-5 with some right foraminal encroachment. There is some disc bulging at C6-7 with some left foraminal encroachment Assessment and plan left upper extremity pain Prior cervical fusion C5-6 Left upper extremity numbness tingling No specific findings on neurology workup Intractable pain. Has been very difficult to determine the nature of the patient's symptoms. Her MRI at most. I do not see that the imaging correlates well with her intractable pain or symptoms in terms of her cervical spine and left upper extremity. She has not had significant workup and evaluation with neurology which has not specific findings to account for her symptoms. Very interested in the possibly of surgical intervention for her cervical spine, but very difficult to predict if surgery would offer her significant benefit for her current symptoms. We discussed the possibility of having another opinion and possible treatment with an alternate physician and I think that is reasonable. We will consult further with spine surgery with another service. I appreciate neurology service workup and evaluation and they recommend continue outpatient workup and evaluation. I would defer medical management and steroid treatment to them and to the primary service. I agree that she has significant anxiety and possible depression which is contributing to her symptoms as well. History around this time of year where she had significant emotional trauma. Can have counseling evaluate her as well.
--- NOTE | 2025-02-13 12:15 | P.PN ---
Subjective Progress Note Date: 02/13/25 Patient was initially seen by Dr. Cj Clements. Please refer to his note for details. Patient is a 54-year-old female with cervical radiculopathy on the left. MRI of the brain and cervical spine are negative. Ortho is also on board. Patient was seen in her room. Patient mentions that she had undergone neck operation for numbness in the left hand and ulnar nerve distribution, in 2002 and symptoms improved. Now she has developed numbness in the left hand in the median nerve distribution. It starts with pain in the left side of the neck to the left arm. Patient was started on steroids, without improvement. She has developed severe edema involving her legs, knees, elbows and wants to stop ster oids now. She does not want it to be continued. Patient has significant neck stiffness, almost like cervical dystonia. Patient has previously tried baclofen, Robaxin and Flexeril did not work. Sta cathy has not tried Soma. Her neck pain is going on for last 2 months. Patient had MRI of the cervical spine and brain and I reviewed. Some of the workup during this hospital visit consisted of: Initial white blood cell is within normal limits but then currently is trending up after Solu-Medrol ESR: 10 CK 14 TSH: 0.288 and Free T4: 0.45 JOSE Negative RF: <15 B12: 413 Homocyteine: 16.5 Calcium is 9.5 on presentation, sodium is 142 magnesium is 1.7 CSF: clear, colorless, nucleated cell 0, csf rbc 2, glucose 96 and protein is 47. MRI of the cervical spine is reported as no evidence for disc herniation or significant spinal canal stenosis. Postsurgical changes with no evidence for significant spinal canal or neuroforaminal stenosis. No abnormal postcontrast enhancement. Mild multilevel disc degeneration with associated osteoarthritic changes. MRI Brain: Objective - Vital Signs Vital signs: Vital Signs Temp 98.8 F 02/13/25 07:44 Pulse 100 02/13/25 07:44 Resp 17 02/13/25 07:44 BP 136/88 02/13/25 07:44 Pulse Ox 97 02/13/25 07:44 FiO2 Intake & Output 02/12/25 02/13/25 02/13/25 18:59 06:59 18:59 Other: Voiding Method Toilet # Voids 2 - Exam Mental status, speech and language functions are normal. Cranial nerves significant for only significant decreased range of motion of neck in all direction. Patient appears to have significant cervical dystonia. The strength is normal in the biceps, triceps and deltoid bilaterally. Roll Carrier is 5 on the right, 4 left, with probable some decreased voluntary effort. Ankles are normal. Reflexes are symmetric, 1+ at the biceps, 1 brachioradialis, 2 at the knees, 2 ankles and plantars are flat. Sensory touch is decreased in the left hand in median nerve distribution. Patient has developed at least moderate peripheral edema bilaterally. She claims this is since steroids were started. - Labs CBC & Chem 7: 02/13/25 06:20 02/13/25 06:20 Labs: Abnormal Lab Results - Last 24 Hours (Table) 02/12/25 02/12/25 02/13/25 Range/Units 12:22 20:09 06:05 WBC (4.50-10.00) 10*3/uL RDW (11.5-14.5) % MPV (9.5-12.2) fL Immature Gran # (0.00-0.04) 10*3/uL Neutrophils # (Manual) (1.3-7.7) k/uL Monocytes # (Manual) (0-1.0) k/uL BUN (7-17) mg/dL POC Glucose (mg/dL) 118 H 155 H 117 H (70-110) mg/dL Total Protein (6.3-8.2) g/dL Albumin (3.5-5.0) g/dL 02/13/25 02/13/25 Range/Units 06:20 06:20 WBC 23.22 H (4.50-10.00) 10*3/uL RDW 14.6 H (11.5-14.5) % MPV 9.4 L (9.5-12.2) fL Immature Gran # 2.08 H (0.00-0.04) 10*3/uL Neutrophils # (Manual) 18.58 H (1.3-7.7) k/uL Monocytes # (Manual) 1.63 H (0-1.0) k/uL BUN 26 H (7-17) mg/dL POC Glucose (mg/dL) (70-110) mg/dL Total Protein 5.5 L (6.3-8.2) g/dL Albumin 3.3 L (3.5-5.0) g/dL Microbiology - Last 24 Hours (Table) 02/10/25 14:00 CSF Gram Stain - Preliminary Cerebral Spinal Fluid CSF Culture - Preliminary Assessment and Plan Assessment: Patient is a 54-year-old woman who presents emergency department because of left neck pain rating down her thumb and index finger with paresthesia and over those distribution and having pain and weakness. She stated that she had neck pain in 2002 with ulnar distribution and was told she had mild disc bulge and had cervical fusion in 2002 and after that her symptoms resolved. According to her her sister has lesions in the brain with possible diagnosis of multiple sclerosis when in her 28 years old. 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 Patient has associated radicular symptoms in the left C6-C7 distribution. MRI Brain and cervical spine is negative for acute or subacute lesion or any enhancement suggestive for Multiple Sclerosis or stroke. Patient had a cervical epidural steroid injection over the C6-C7 region without relief History of neck pain with paresthesia over the left ulnar distribution in 2002 and resolved after surgery History Anxiety History Depression Plan: I personally reviewed the MRI and agree there is no acute or subacute process or enhancement. On T2, there is one lesion over the left periventricular over anterior horn seems concerning for ?demylinating disease. Otherwise rest are nonspecific. Pending Oligoclonal band. Methylmalonic acid 0.28 which is normal. Hemoglobin A1c 5.9. Vitamin B12 413. JOSE, RF negative. Recommend EMG with nerve conduction study of the left upper extremity as an outpatient and that can be coordinated by her orthopedic surgeon, Dr. Darling. Patient is noticing significant side effects from Solu-Medrol without any improvement. She is receiving Solu-Medrol 80 mg every 8 hours. We will stop Solu-Medrol, as per patient's request. Start Soma 350 mg 3 times daily. If no improvement in 24 to 48 hours, will stop Soma. May consider trying Artane. Patient states she has previously failed baclofen, Robaxin and Flexeril. Physical therapy for cervical spondylosis. Patient may benefit from Botox injections for possible cervical dystonia. The patient is on gabapentin 800 mg 3 times daily. Orthopedic surgery team is on board Recommend correction of thyroid to primary team. Will defer the rest of the medical management the primary other specialist
[2025-02-13 12:52] LABS: Glucose,Whole Blood 133 mg/dL (70-110)
--- NOTE | 2025-02-13 14:12 | P.CNOR ---
History of Present Illness - [facility] Consult date: 02/13/25 Requesting physician: Cortez Darling Consult reason: other (2nd opinion regarding Cervical spine) History of present illness: History of Presenting Illness Patient is a pleasant 55-year-old female who presented to the ER on 02/04/2025 due to intractable neck and left upper extremity pain. Patient was seen by [facility] and evaluated. Dr. Darling placed consult for our services as a second opinion regarding patient's symptoms and thoughts about surgical intervention. Patient was seen in our office in the past on 06/21/2020 regarding cervical pain. During that office visit patient had complained of left lateral cervical pain that radiated into the left upper extremity into the left middle, ring and small fingers. She did report numbness at night. Patient was diagnosed with adjacent segment disease at C4-C5. Patient was referred to Dr. Wilkes for pain management. Pateint states that she did have a consult, but did not have any treatments. She denies following with any orthopedic/spine physician since our office visit. She states she has been just dealing with the pain. Patient is currently describing similar symptoms with significant pain and stiffness of her cervical spine that radiates into the left upper extremity into her thumb, index finger, and middle finger. Patient does demonstrate weakness of her left upper extremity. Patient does have a history of previous C5-C6 ACDF performed [place] [address] Mancia. Patient seen and examined this afternoon. Patient is sitting up in bed with family at bedside. She continues to report a sharp aching left lateral cervical pain that radiates into the left shoulder and upper extremity into her fingers, associated with numbness and tingling. Patient states she has trialed injections from pain management without any relief of her symptoms. Discussed with patient surgical intervention of C4-C5 anterior cervical discectomy and fusion. Risk and benefits have been discussed. Patient would like to proceed with the procedure. Continue to encourage patient to increase her activity as tolerated. Review of Systems Pertinent positives and negatives as discussed in HPI, a complete review of systems was performed and all other systems are negative. Physical Examination General: The patient is awake and alert, in no acute distress Skin: Skin is warm and dry with no obvious rashes or lesions. Neck: The neck is supple, there is tenderness to palpation of the left lateral cervical region. Cardiovascular: There is a regular rate and rhythm. Respiratory: Respirations are non-labored. Gastrointestinal: Soft, non-distended, non-tender abdomen. Back: There is no tenderness to palpation in the midline, paralumbar, parathoracic or buttocks region. There is no obvious deformity. Musculoskeletal: ROM limited secondary to pain and stiffness. Right: shoulder abduction 5/5, elbow flexors 5/5, wrist dorsiflexors 5/5. finger abductor 5/5, kettle cleaner 5/5, hip flexor 5/5, knee flexor 5/5, ankle dorsiflexor 5/5, ankle plantarflexion 5/5 and extensor hallucis 5/5. Left: shoulder abduction 4-/5, elbow flexors 4-/5, wrist dorsiflexors 4/5. finger abductor 4-/5, kettle cleaner 4-/5, hip flexor 5/5, knee flexor 5/5, ankle dorsi flexor 5/5, ankle plantarflexion 5/5 and extensor hallucis 5/5. Neurological: CN 2-12 intact. There are no obvious motor or sensory deficits. Movement and coordination equal and intact. Sensory exam to light touch intact C5-T1 and intact from L2-S1. Reflexes 2/4 in bilateral upper and lower extre mities. Negative Hoffmans, babinski, and clonus signs. Psychiatric: Cooperative, appropriate mood & affect, normal judgment. Assessment h/o C5-C6 ACDF Cervical spondylosis with stenosis C4-C5 Adjacent segement disease Left upper extremity radiculopathy Left upper extremity weakness Cervicalgia Plan At this time we are recommending surgical intervention of C4-C5 anterior cervical discectomy and fusion. Risks and benefits have been discussed with patient and family at bedside. Patient would like to move forward with the procedure. Consent will be obtained prior to the procedure. Patient will be n.p.o. at midnight on 02/15/2025. Surgical procedure is scheduled for 02/16/2025. Lovenox will be stopped on 02/15/2025. 2. Appreciate medical management 3. Pain management -with current regimen, Utilize ice therapy 20min every hour as needed. 4. GI prophylaxis - Senna 5. DVT prophylaxis - Lovenox will be stopped on 02/15/2025. 6. PT/OT - weightbearing as tolerated with a walker as needed. 7. Appreciate consult. I reviewed and discussed this case with my attending Dr. Duong, whom has reviewed this chart and films and is in agreement with assessment and plan of care as outlined above. I have personally seen and examined the patient, performed the documentation and the assessment and plan as written. Number of minutes spent on the visit: 30m. Past Medical History Past Medical History: COPD, GERD/Reflux, Hypertension, Pneumonia Additional Past Medical History / Comment(s): chronic back pain, lumbar degenerative disc disease, insomnia, hx shingles, hiatal hernia, kidney stones. 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, migraines,; NECK PAIN , Rabies 09/17 Last Myocardial Infarction Date:: 08/27/2016 History of Any Multi-Drug Resistant Organisms: MRSA Year Discovered:: 09/22/09 MDRO Source:: neck Past Surgical History: Appendectomy, Back Surgery, Section, Cholecystectomy, Orthopedic Surgery Additional Past Surgical History / Comment(s): Cervical spine fusion with insertion of a metal plate, EGD, colonoscopy, radiofrequency ablation, Past Anesthesia/Blood Transfusion Reactions: No Reported Reaction Additional Past Anesthesia/Blood Transfusion Reaction / Comm: CLAUSTROPHOBIA Past Psychological History: ADD/ADHD, Anxiety, Panic Disorder Smoking Status: Current every day smoker Past Alcohol Use History: None Reported Past Drug Use History: None Reported - Past Family History Father Family Medical History: Cancer Additional Family Medical History / Comment(s): Father at age 48 from lung cancer. Mother Family Medical History: Congestive Heart Failure (CHF), CVA/TIA Additional Family Medical History / Comment(s): Mother is alive at age 68. She has suffered from a CVA and has chronic back problems. Patient has 2 brothers and 4 sisters with no major medical problems. Medications and Allergies Home Medications Medication Instructions Recorded Confirmed Type clonazePAM [KlonoPIN] 0.5 mg PO BID 10/23/19 02/04/25 History Methylphenidate HCl [Ritalin] 20 mg PO TID 04/07/23 02/04/25 History Prazosin [Minipress] 5 mg PO HS 04/07/23 02/04/25 History Albuterol Inhaler [Ventolin Hfa 2 puff INHALATION RT-Q4H PRN 09/30/23 02/04/25 H istory Inhaler] Gabapentin 800 mg PO TID 09/30/23 02/04/25 History Mirtazapine 30 mg PO HS 02/04/25 02/04/25 History Allergies Allergy/AdvReac Type Severity Reaction Status Date / Time ibuprofen Allergy Anaphylaxis Verified 02/04/25 21:16 ketorolac [From Toradol] Allergy Anaphylaxis Verified 02/04/25 21:16 shellfish derived Allergy Anaphylaxis Verified 02/04/25 21:16 tramadol [From Ultram] Allergy Anaphylaxis Verified 02/04/25 21:16 Results - Labs Labs: Abnormal Lab Results - Last 24 Hours (Table) 02/12/25 02/12/25 02/13/25 Range/Units 12:22 20:09 06:05 WBC (4.50-10.00) 10*3/uL RDW (11.5-14.5) % MPV (9.5-12.2) fL Immature Gran # (0.00-0.04) 10*3/uL Neutrophils # (Manual) (1.3-7.7) k/uL Monocytes # (Manual) (0-1.0) k/uL BUN (7-17) mg/dL POC Glucose (mg/dL) 118 H 155 H 117 H (70-110) mg/dL Total Protein (6.3-8.2) g/dL Albumin (3.5-5.0) g/dL 02/13/25 02/13/25 Range/Units 06:20 06:20 WBC 23.22 H (4.50-10.00) 10*3/uL RDW 14.6 H (11.5-14.5) % MPV 9.4 L (9.5-12.2) fL Immature Gran # 2.08 H (0.00-0.04) 10*3/uL Neutrophils # (Manual) 18.58 H (1.3-7.7) k/uL Monocytes # (Manual) 1.63 H (0-1.0) k/uL BUN 26 H (7-17) mg/dL POC Glucose (mg/dL) (70-110) mg/dL Total Protein 5.5 L (6.3-8.2) g/dL Albumin 3.3 L (3.5-5.0) g/dL Microbiology - Last 24 Hours (Table) 02/10/25 14:00 CSF Gram Stain - Preliminary Cerebral Spinal Fluid CSF Culture - Preliminary H & H 07/02/05/25 02/07/25 Range/Units 17:06 04:57 04:55 Hgb 13.7 13.5 12.7 (12.0-15.0) g/dL Hct 41.4 41.4 39.8 (37.2-46.3) % 02/08/25 02/09/25 02/10/25 Range/Units 04:38 07:15 04:47 Hgb 12.7 13.6 12.8 (12.0-15.0) g/dL Hct 39.3 41.0 39.0 (37.2-46.3) % 02/11/25 02/12/25 02/13/25 Range/Units 03:26 06:54 06:20 Hgb 13.4 13.0 12.8 (12.0-15.0) g/dL Hct 40.3 39.6 39.6 (37.2-46.3) % Result Diagrams: 02/13/25 06:20 02/13/25 06:20
--- NOTE | 2025-02-13 14:33 | P.CN ---
Psychiatric Consult - . Consult date: 02/13/25 Consult:: 02/13/25 14:27 IDENTIFYING DATA: This patient is a 55-year-old female, , lives with partner/grandson REASON FOR REFERRAL: Psychiatry was consulted for/anxiety HISTORY OF PRESENT ILLNESS: The patient presented to the hospital originally with neck pain and she is status post cervical epidural injection. Patient also has been experiencing left upper extremity weakness and paresthesia with neurology consulted. Patient reports feeling overall stable mentally despite significant past troubles including losing her daughter to a car accident in June 2019 after drug use. She states her grandson was in the car with her at that time and he was in the hospital for several weeks and ended up going to therapy however he is now doing much better. She expresses a desire to live for her grandson. She states initially not being open to therapy however after her last inpatient hospitalization for psychiatry she started doing therapy and found it helpful. She states "life is much better", expressing no mental health concerns. She feels as though the current medications are helpful for her mood and that she herself has started working with her outpatient doctor regarding titrating down her Klonopin to eventually discontinue this. Patient does appear to be a fast talker however this appears baseline. At this time patient denies any suicidal or homicidal ideations, intent or plan. Patient denies any auditory, visual hallucinations and denies any paranoia or delusions. Patients admits to using no substances. PAST PSYCHIATRIC HISTORY: Patient has a history of substance-induced psychosis, opioid use disorder in remission. Patient is currently prescribed prazosin 5 mg at bedtime, Remeron 30 mg at bedtime, Klonopin 0.5 mg twice daily. Patient was last hospitalized on the [facility] back in February 2023. Patient sees Dr. Jung at [facility] and states have an upcoming appointment on March 02. She does see a construction worker and therapist at [facility]. Patient denies any history of suicide attempts in the past. PAST MEDICAL HISTORY: Denies. ALLERGIES: as per EMR. CHEMICAL DEPENDENCY HISTORY: as per HPI. FAMILY PSYCHIATRIC/SUBSTANCE USE HISTORY: Denies SOCIAL HISTORY: Patient was born and raised in [place]. She has a long-term partner whom she lives with along with her grandson. She is unemployed. MENTAL STATUS EXAM: General Appearance: Patient appears to be stated age is alert, pleasant, and cooperative. Patient appears to have fair hygiene and grooming wearing hospital gown with fair eye contact. Behavior: Patient is calmly lying in bed without any agitated behavior. Speech: Patient's speech is fluent and talkative Mood/Affect: Patient reports their mood is "much better", affect is congruent, reactive Suicidality/Homicidality: Patient denies having any suicidal or homicidal ideation intent or plan. Perceptions: Patient denies any visual hallucinations and denies any auditory hallucinations Though content/process: There is no evidence of any delusional thought content and thought process is linear and goal-directed. Memory and concentration: AOX3, grossly intact for the purposes of this session. Can spell "WORLD" backwards Judgment and insight: Fair IMPRESSIONS: PTSD History of substance-induced psychosis PLAN: -At this time patient DOES NOT meet criteria for inpatient psychiatric admission. -Would recommend the following medication changes/additions: Continue prazosin 5 mg at bedtime, Remeron 30 mg at bedtime, Klonopin 0.5 mg twice daily. Patient has an upcoming appointment with her outpatient psychiatrist on March 02 and will follow-up with them for further medication adjustments -Psychiatry will sign off at this time -Please contact with any questions.
[2025-02-13] MEDS: FUROSEMIDE 10 MG/ML 2 ML VIAL IV STA (15:04)
--- NOTE | 2025-02-13 15:21 | P.PN ---
Subjective Progress Note Date: 02/13/25 HPI: 48-year-old female with a history of C5-6 fusion surgery in the past came in with complaints of severe neck pain stiffness in the neck pain radiating to the left upper extremity and numbness in the left thumb index and middle fingers. Patient has decreased wood heel cementer in that hand as well patient tingling numbness extends to the forearm is complaining of severe pain in the neck patient had a CT of the cervical spine which showed multilevel degenerative changes in the hardware at C5-C6 level and bilateral neural foraminal stenosis at C6-C7 level. Subjective: 02/06: Patient seen at bedside. No significant overnight events. States she still having significant neck pain, ready for the injection today with pain management. No other complaints at this time. 02/07: Patient seen and examined at bedside status post cervical epidural injection day 1, tolerated the procedure well still experiencing pain. Time till effect discussed with patient 02/08: Patient seen at bedside. Patient reports progressive worsening of left arm weakness. Patient initially experienced carotid weakness and numbness in medial aspect of her hand however started developing weakness in her entire hand extending up to her shoulder from last night. Pinprick sensation absent in dorsal aspect of the left hand however present in palmar aspect. 02/09: Patient seen at bedside. Patient reports continuous worsening of left arm weakness. Reports trace pinprick sensation in dorsal aspect of the left hand, previously completely absent in the left hand. Complaints of persistent left- sided neck pain and reduced left arm power against gravity. 02/10: Patient seen at bedside. Patient reports continuous worsening of left arm weakness. Left hand wood heel cementer reduced, similar to previous days. Reports reduced pain in the neck. Pending MRI brain today. 02/11/2025 Patient is seen in follow-up today currently sitting up in bed reporting she has been up and back and forth to the bathroom with no difficulties although continues with upper back and neck pain that has been ongoing. Patient is reporting she is receiving IV morphine although asking for an increase as she reports it wears off and has severe 10/10 pain. Will continue with morphine as prescribed and as needed and will adjust Montgomery slightly and increase the dose. Patient is maintained on IV steroids and increasing the dose per neurology re commendations. Orthopedics following continuing with conservative management until neurological workup has been completed. Discussing possible surgical intervention given patient remains symptomatic. 02/12: Patient seen at bedside. Persistent numbness and weakness of the left arm. Patient reports pain and numbness worsening and frustrated with same. 02/13: Patient seen at bedside. Continues to complain of numbness, weakness and pain of the left arm with reduced wood heel cementer. Patient reports concerns about steroid dose as she reports skin thinning and lower and upper extremity swelling. Pertinent positives and negatives discussed above, a complete review of systems was preformed and all the other systems were negative. Vitals Signs Reviewed. Temperature 98.2. Heart rate 94, respiratory rate 17, BP 133/88, SpO2 94 on room air. GENERAL: The patient is alert and oriented x3, not in any acute distress. Well developed, well nourished. HEENT: Pupils are round and equally reacting to light. EOMI. No scleral icterus. No conjunctival pallor. Normocephalic, atraumatic. No pharyngeal erythema. No thyromegaly. CARDIOVASCULAR: S1 and S2 present. No murmurs, rubs, or gallops. PULMONARY: Chest is clear to auscultation, no wheezing or crackles. ABDOMEN: Soft, nontender, nondistended, normoactive bowel sounds. No palpable organomegaly. MUSCULOSKELETAL: No joint swelling or deformity. EXTREMITIES: No cyanosis, clubbing, or pedal edema. Weakness and numbness extending from left hand up to the shoulder. Pinprick sensation absent to dorsal aspect of the left hand however present on palmar aspect. 3 out of 5 strength in the left arm. Reduced wood heel cementer strength in the left hand compared to the right hand. NEUROLOGICAL: Decreased wood heel cementer strength in the left upper extremity SKIN: No rashes. Imaging: No new images MRI cervical spine showed no evidence for disc herniation or significant spinal canal stenosis, postsurgical changes with no evidence for significant spinal canal or neural foraminal stenosis, no abnormal postcontrast enhancement, mild multilevel disc degeneration with associated osteoarthritic changes Assessment and plan: #Radicular neck pain with left upper extremity numbness. - Surgical intervention of C4-C5 anterior cervical discectomy and fusion this Wednesday with . - On IV Solu-Medrol -MRI brain with and without contrast negative and not suggestive of demyelinization -Status post LP which is unremarkable other than elevated glucose likely secondary to IV steroids Neurology following, has increased IV steroids, appreciate further recommendations. #Left upper extremity radiculopathy and weakness, secondary to cervical degenerative disease: Continue Solu-Medrol 80 mg IV Q8HR, patient underwent cervical epidural steroid injection and trigger point injection cervical paraspinal muscles left side total of 5 trigger point injections Inadequate pain control with breath-holding spells Acute leukocytosis, likely reactive, secondary to steroid use #Subclinical hypothyroidism TSH 0.277, FT4 0.45. T3 0.90 Patient asymptomatic. MRI negative #Hypokalemia -Hypokalemia potassium improved after replacement Chronic: #COPD without any acute exacerbation #Hypertension #Neuropathy #ADHD/anxiety disorder for which patient is on Ritalin - Continue nicotine use: Counseling was provided - Continue home medications DVT prophylaxis: Lovenox GI prophylaxis Protonix Full code Objective - Vital Signs Vital signs: Vital Signs Temp 98.2 F 02/13/25 02:00 Pulse 94 02/13/25 02:00 Resp 17 02/13/25 02:00 BP 133/88 02/13/25 02:00 Pulse Ox 94 L 02/13/25 02:00 FiO2 Intake & Output 02/12/25 02/13/25 02/13/25 18:59 06:59 18:59 Other: Voiding Method Toilet # Voids 2 - Labs CBC & Chem 7: 02/20/25 08:23 02/19/25 00:06 Labs: Abnormal Lab Results - Last 24 Hours (Table) 02/12/25 02/12/25 02/12/25 Range/Units 07:09 12:22 20:09 WBC (4.50-10.00) 10*3/uL RDW (11.5-14.5) % MPV (9.5-12.2) fL Immature Gran # (0.00-0.04) 10*3/uL BUN (7-17) mg/dL POC Glucose (mg/dL) 118 H 155 H (70-110) mg/dL Total Protein (6.3-8.2) g/dL Albumin (3.5-5.0) g/dL Free T3 pg/mL 0.90 L (2.30-4.20) pg/mL 02/13/25 02/13/25 02/13/25 Range/Units 06:05 06:20 06:20 WBC 23.22 H (4.50-10.00) 10*3/uL RDW 14.6 H (11.5-14.5) % MPV 9.4 L (9.5-12.2) fL Immature Gran # 2.08 H (0.00-0.04) 10*3/uL BUN 26 H (7-17) mg/dL POC Glucose (mg/dL) 117 H (70-110) mg/dL Total Protein 5.5 L (6.3-8.2) g/dL Albumin 3.3 L (3.5-5.0) g/dL Free T3 pg/mL (2.30-4.20) pg/mL Microbiology - Last 24 Hours (Table) 02/10/25 14:00 CSF Gram Stain - Preliminary Cerebral Spinal Fluid CSF Culture - Preliminary Assessment and Plan Assessment: Attestation Attestation/ Rattling Machine Tender Note: Attestation to Progress Note, Participation (I saw and evaluated the patient with the Resident, and I reviewed and discussed the patient with the Resident and agree with the Resident's findings and plans as documented above., management reviewed and discussed), I agree with findings & plan, Provider Signature (CHELSEA SHORE, HOLDEN Otoole Time with Patient: Greater than 30
[2025-02-13 20:32] LABS: Glucose,Whole Blood 142 mg/dL (70-110)
[2025-02-14 05:34] LABS: HCT 41.8 % (37.2-46.3); HGB 13.5 g/dL (12.0-15.0); MCH 30.0 pg (27.0-32.0); MCHC 32.3 g/dL (32.0-37.0); MCV 92.9 fL (80.0-97.0); Platelet Count 291 10*3/uL (140-440); RBC 4.50 10*6/uL (4.10-5.20); RDW 14.9 % (11.5-14.5); WBC 17.62 10*3/uL (4.50-10.00)
[2025-02-14 05:59] LABS: ALT 25 U/L (4-34); AST 19 U/L (14-36); African American GFR (CKD) >90 (>60 ml/min/1.73 sqM); Albumin 3.2 g/dL (3.5-5.0); Albumin/Globulin Ratio 1.5; Alkaline Phosphatase 81 U/L (38-126); Anion Gap 8 mmol/L; Blood Urea Nitrogen 24 mg/dL (7-17); Calcium 8.8 mg/dL (8.4-10.2); Carbon Dioxide 31 mmol/L (22-30); Chloride 97 mmol/L (98-107); Globulin 2.2 g/dL; Glucose 80 mg/dL (74-99); Non-African American GFR(CKD) 88 (>60 ml/min/1.73 sqM); Potassium 4.8 mmol/L (3.5-5.1); Sodium 136 mmol/L (137-145); Total Protein 5.4 g/dL (6.3-8.2)
[2025-02-14 06:03] LABS: Glucose,Whole Blood 111 mg/dL (70-110)
[2025-02-14 08:31] LABS: Lymphocytes # (M) 5.99 k/uL (1.0-4.8); Monocytes # (M) 0.53 k/uL (0-1.0); Neutrophils # (M) 11.10 k/uL (1.3-7.7); Neutrophils % (M) 63 %; Total Cells Counted 100
--- NOTE | 2025-02-14 09:01 | P.PN ---
Subjective Progress Note Date: 02/14/25 Principal diagnosis: Cervical pain Left upper extremity radiculopathy and weakness Patient seen and examined this morning. Patient is resting comfortably in bed. Patient does seem more lethargic, easily aroused with verbal stimuli. Medications will be adjusted. Discussed with patient that surgical intervention has been scheduled for 02/16/2025. Patient denies any questions or concerns at this time. Continue to encourage patient to increase her activity as tolerated. Encouraged use of incentive spirometer 10 times per hour while awake. Objective - Vital Signs Vital signs: Vital Signs Temp 98.5 F 02/14/25 07:55 Pulse 95 02/14/25 07:55 Resp 20 02/14/25 07:55 BP 100/63 02/14/25 07:55 Pulse Ox 97 02/14/25 07:55 FiO2 Intake & Output 02/13/25 02/14/25 02/14/25 18:59 06:59 18:59 Intake Total 118 Balance 118 Intake: Oral 118 Other: Voiding Method Toilet # Voids 2 3 # Bowel Movements 1 - Exam General: The patient is awake and alert, in no acute distress Skin: Skin is warm and dry with no obvious rashes or lesions. Neck: The neck is supple, there is tenderness to palpation of the left lateral cervical region. Cardiovascular: There is a regular rate and rhythm. Respiratory: Respirations are non-labored. Gastrointestinal: Soft, non-distended, non-tender abdomen. Back: There is no tenderness to palpation in the midline, paralumbar, parathoracic or buttocks region. There is no obvious deformity. Musculoskeletal: ROM limited secondary to pain and stiffness. Right: shoulder abduction 5/5, elbow flexors 5/5, wrist dorsiflexors 5/5. finger abductor 5/5, ct technologist 5/5, hip flexor 5/5, knee flexor 5/5, ankle dorsiflexor 5/5, ankle plantarflexion 5/5 and extensor hallucis 5/5. Left: shoulder abduction 4-/5, elbow flexors 4-/5, wrist dorsiflexors 4/5. finger abductor 4-/5, ct technologist 4-/5, hip flexor 5/5, knee flexor 5/5, ankle dorsiflexor 5/5, ankle plantarflexion 5/5 and extensor hallucis 5/5. Neurological: CN 2-12 intact. There are no obvious motor or sensory deficits. Movement and coordination equal and intact. Sensory exam to light touch intact C5-T1 and intact from L2-S1. Reflexes 2/4 in bilateral upper and lower extremities. Negative Hoffmans, babinski, and clonus signs. Psychiatric: Cooperative, appropriate mood & affect, normal judgment. - Labs CBC & Chem 7: 02/14/25 04:54 02/14/25 04:54 Labs: Abnormal Lab Results - Last 24 Hours (Table) 02/13/25 02/13/25 02/13/25 Range/Units 06:20 12:50 20:28 WBC (4.50-10.00) 10*3/uL RDW (11.5-14.5) % MPV (9.5-12.2) fL Immature Gran # (0.00-0.04) 10*3/uL Neutrophils # (Manual) 18.58 H (1.3-7.7) k/uL Monocytes # (Manual) 1.63 H (0-1.0) k/uL Sodium (137-145) mmol/L Chloride (98-107) mmol/L Carbon Dioxide (22-30) mmol/L BUN (7-17) mg/dL POC Glucose (mg/dL) 133 H 142 H (70-110) mg/dL Total Protein (6.3-8.2) g/dL Albumin (3.5-5.0) g/dL 02/14/25 02/14/25 02/14/25 Range/Units 04:54 04:54 06:02 WBC 17.62 H (4.50-10.00) 10*3/uL RDW 14.9 H (11.5-14.5) % MPV 9.0 L (9.5-12.2) fL Immature Gran # 1.33 H (0.00-0.04) 10*3/uL Neutrophils # (Manual) (1.3-7.7) k/uL Monocytes # (Manual) (0-1.0) k/uL Sodium 136 L (137-145) mmol/L Chloride 97 L (98-107) mmol/L Carbon Dioxide 31 H (22-30) mmol/L BUN 24 H (7-17) mg/dL POC Glucose (mg/dL) 111 H (70-110) mg/dL Total Protein 5.4 L (6.3-8.2) g/dL Albumin 3.2 L (3.5-5.0) g/dL Microbiology - Last 24 Hours (Table) 02/10/25 14:00 CSF Gram Stain - Preliminary Cerebral Spinal Fluid CSF Culture - Preliminary Assessment and Plan Assessment: h/o C5-C6 ACDF Cervical spondylosis with stenosis C4-C5 Adjacent segement disease Left upper extremity radiculopathy Left upper extremity weakness Cervicalgia Plan: At this time we are recommending surgical intervention of C4-C5 anterior cervical discectomy and fusion. Risks and benefits have been discussed with patient and family at bedside. Patient would like to move forward with the procedure. Consent will be obtained prior to the procedure. Patient will be n.p.o. at midnight on 02/15/2025. Surgical procedure is scheduled for 02/16/2025. Lovenox will be stopped on 02/15/2025. 2. Appreciate medical management 3. Pain management -with current regimen, Utilize ice therapy 20min every hour as needed. 4. GI prophylaxis - Senna 5. DVT prophylaxis - Lovenox will be stopped on 02/15/2025. 6. PT/OT - weightbearing as tolerated with a walker as needed. 7. Appreciate consult. I reviewed and discussed this case with my attending Dr. Duong, whom has reviewed this chart and films and is in agreement with assessment and plan of care as outlined above. I have personally seen and examined the patient, performed the documentation and the assessment and plan as written. Number of minutes spent on the visit: 30m.
--- NOTE | 2025-02-14 10:06 | P.PN ---
Progress Note - Text Progress Note Date: 02/14/25 Patient is pursuing further spinal surgical care with Dr. Duong's service. We will sign off.
[2025-02-14 12:17] LABS: Albumin (Serum) 3,170 mg/dL (3500 - 5200); IgG - CSF 1.6 mg/dL (0.0 - 3.4); IgG/Albumin Index (CSF) 0.60 (0.00 - 0.77); Immunoglobulin G 629 mg/dL (700 - 1600)
[2025-02-14 12:22] LABS: Glucose,Whole Blood 96 mg/dL (70-110)
[2025-02-14] MEDS: FUROSEMIDE 10 MG TAB PO STA (12:31)
--- NOTE | 2025-02-14 14:53 | P.PN ---
Subjective Progress Note Date: 02/14/25 02/14/2025: Patient was seen for a follow-up. Patient states Soma helped her sleep. She still has restricted range of motion of the neck for rotation, and forward flexion and extension. Patient was seen for a second opinion by orthopedic surgery, and they have decided to proceed with cervical spinal surgery. 02/13/2025: Patient was initially seen by Dr. Cj Clements. Please refer to his note for details. Patient is a 54-year-old female with cervical radiculopathy on the left. MRI of the brain and cervical spine are negative. Ortho is also on board. Patient was seen in her room. Patient mentions that she had undergone neck operation for numbness in the left hand and ulnar nerve distribution, in 2002 and symptoms improved. Now she has developed numbness in the left hand in the median nerve distribution. It starts with pain in the left side of the neck to the left arm. Patient was started on steroids, without improvement. She has developed severe edema involving her legs, knees, elbows and wants to stop steroids now. She does not want it to be continued. Patient has significant neck stiffness, almost like cervical dystonia. Patient has previously tried baclofen, Robaxin and Flexeril did not work. States has not tried Soma. Her neck pain is going on for last 2 months. Patient had MRI of the cervical spine and brain and I reviewed. Some of the workup during this hospital visit consisted of: Initial white blood cell is within normal limits but then currently is trending up after Solu-Medrol ESR: 10 CK 14 TSH: 0.288 and Free T4: 0.45 JOSE Negative RF: <15 B12: 413 Homocyteine: 16.5 Calcium is 9.5 on presentation, sodium is 142 magnesium is 1.7 CSF: clear, colorless, nucleated cell 0, csf rbc 2, glucose 96 and protein is 47. MRI of the cervical spine is reported as no evidence for disc herniation or significant spinal canal stenosis. Postsurgical changes with no evidence for significant spinal canal or neuroforaminal stenosis. No abnormal postcontrast enhancement. Mild multilevel disc degeneration with associated osteoarthritic changes. MRI Brain: Objective - Vital Signs Vital signs: Vital Signs Temp 98.5 F 02/14/25 07:55 Pulse 95 02/14/25 07:55 Resp 20 02/14/25 07:55 BP 100/63 02/14/25 07:55 Pulse Ox 97 02/14/25 07:55 FiO2 Intake & Output 02/13/25 02/14/25 02/14/25 18:59 06:59 18:59 Intake Total 118 118 Balance 118 118 Intake: Oral 118 118 Other: Voiding Method Toilet Toilet # Voids 2 3 # Bowel Movements 1 - Exam Mental status, speech and language functions are normal. Cranial nerves significant for only significant decreased range of motion of neck in all direction. Patient appears to have significant cervical dystonia. Patient has tense posterior cervical muscles, not as much as sternocleidomastoids. The strength is normal in the biceps, triceps and deltoid bilaterally. Chief Building Inspector is 5 on the right, 4 left, with probable some decreased voluntary effort. Ankles are normal. Reflexes are symmetric, 1+ at the biceps, 1 brachioradialis, 2 at the knees, 2 ankles and plantars are flat. Sensory touch is decreased in the left hand in median nerve distribution. Patient has developed at least moderate peripheral edema bilaterally. She claims this is since steroids were started. - Labs CBC & Chem 7: 02/14/25 04:54 02/14/25 04:54 Labs: Abnormal Lab Results - Last 24 Hours (Table) 02/10/25 02/13/25 02/14/25 Range/Units 04:47 20:28 04:54 WBC 17.62 H (4.50-10.00) 10*3/uL RDW 14.9 H (11.5-14.5) % MPV 9.0 L (9.5-12.2) fL Immature Gran # 1.33 H (0.00-0.04) 10*3/uL Neutrophils # (Manual) 11.10 H (1.3-7.7) k/uL Lymphocytes # (Manual) 5.99 H (1.0-4.8) k/uL Sodium (137-145) mmol/L Chloride (98-107) mmol/L Carbon Dioxide (22-30) mmol/L BUN (7-17) mg/dL POC Glucose (mg/dL) 142 H (70-110) mg/dL Total Protein (6.3-8.2) g/dL Albumin (3.5-5.0) g/dL Serum Albumin 3,170 L (3500 - 5200) mg/dL IgG 629 L (700 - 1600) mg/dL 02/14/25 02/14/25 Range/Units 04:54 06:02 WBC (4.50-10.00) 10*3/uL RDW (11.5-14.5) % MPV (9.5-12.2) fL Immature Gran # (0.00-0.04) 10*3/uL Neutrophils # (Manual) (1.3-7.7) k/uL Lymphocytes # (Manual) (1.0-4.8) k/uL Sodium 136 L (137-145) mmol/L Chloride 97 L (98-107) mmol/L Carbon Dioxide 31 H (22-30) mmol/L BUN 24 H (7-17) mg/dL POC Glucose (mg/dL) 111 H (70-110) mg/dL Total Protein 5.4 L (6.3-8.2) g/dL Albumin 3.2 L (3.5-5.0) g/dL Serum Albumin (3500 - 5200) mg/dL IgG (700 - 1600) mg/dL Microbiology - Last 24 Hours (Table) 02/10/25 14:00 CSF Gram Stain - Preliminary Cerebral Spinal Fluid CSF Culture - Preliminary Assessment and Plan Assessment: Patient is a 54-year-old woman who presents emergency department because of left neck pain rating down her thumb and index finger with paresthesia and over those distribution and having pain and weakness. She stated that she had neck pain in 2002 with ulnar distribution and was told she had mild disc bulge and had cervical fusion in 2002 and after that her symptoms resolved. According to her her sister has lesions in the brain with possible diagnosis of multiple sclerosi s when in her 28 years old. 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 Patient has associated radicular symptoms in the left C6-C7 distribution. MRI Brain and cervical spine is negative for acute or subacute lesion or any enhancement suggestive for Multiple Sclerosis or stroke. Patient had a cervical epidural steroid injection over the C6-C7 region without relief History of neck pain with paresthesia over the left ulnar distribution in 2002 and resolved after surgery History Anxiety History Depression Plan: Patient continues to have neck pain. She has been seen by orthopedic surgery and they are recommending cervical spinal surgery, which appears to be scheduled performed on Wednesday. Methylmalonic acid 0.28 which is normal. Hemoglobin A1c 5.9. Vitamin B12 413. JOSE, RF negative. Recommend EMG with nerve conduction study of the left upper extremity as an outpatient. CSF with 0 WBCs, 2 RBC, glucose 96, protein 47, MS panel is completely negative. IgG synthesis rate, IgG index and OCB are all negative. Comprehensive viral panel negative. Patient is noticing significant side effects from Solu-Medrol without any improvement. She is receiving Solu-Medrol 80 mg every 8 hours. We will stop Solu-Medrol, as per patient's request. Patient started on Lasix for peripheral edema. Start Soma 350 mg 3 times daily. If no improvement in 24 to 48 hours, will stop Soma. May consider trying Artane. Patient states she has previously failed baclofen, Robaxin and Flexeril. Physical therapy for cervical spondylosis. Patient may benefit from Botox injections for possible cervical dystonia. The patient is on gabapentin 800 mg 3 times daily. Orthopedic surgery team is on board Recommend correction of thyroid to primary team. Will defer the rest of the medical management the primary other specialist
[2025-02-14 16:58] LABS: Glucose,Whole Blood 133 mg/dL (70-110)
--- NOTE | 2025-02-14 17:30 | P.PN ---
Subjective Progress Note Date: 02/14/25 HPI: 48-year-old female with a history of C5-6 fusion surgery in the past came in with complaints of severe neck pain stiffness in the neck pain radiating to the left upper extremity and numbness in the left thumb index and middle fingers. 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 Subjective: 02/06: Patient seen at bedside. No significant overnight events. States she still having significant neck pain, ready for the injection today with pain management. No other complaints at this time. 02/07: Patient seen and examined at bedside status post cervical epidural injection day 1, tolerated the procedure well still experiencing pain. Time till effect discussed with patient 02/08: Patient seen at bedside. Patient reports progressive worsening of left arm weakness. Patient initially experienced carotid weakness and numbness in medial aspect of her hand however started developing weakness in her entire hand extending up to her shoulder from last night. Pinprick sensation absent in dorsal aspect of the left hand however present in palmar aspect. 02/09: Patient seen at bedside. Patient reports continuous worsening of left arm weakness. Reports trace pinprick sensation in dorsal aspect of the left hand, previously completely absent in the left hand. Complaints of persistent left- sided neck pain and reduced left arm power against gravity. 02/10: Patient seen at bedside. Patient reports continuous worsening of left arm weakness. Left hand software test developer reduced, similar to previous days. Reports reduced pain in the neck. Pending MRI brain today. 02/11/2025 Patient is seen in follow-up today currently sitting up in bed reporting she has been up and back and forth to the bathroom with no difficulties although continues with upper back and neck pain that has been ongoing. Patient is reporting she is receiving IV morphine although asking for an increase as she reports it wears off and has severe 10/10 pain. Will continue with morphine as prescribed and as needed and will adjust [place] slightly and increase the dose. Patient is maintained on IV steroids and increasing the dose per neurology re commendations. Orthopedics following continuing with conservative management until neurological workup has been completed. Discussing possible surgical intervention given patient remains symptomatic. 02/12: Patient seen at bedside. Persistent numbness and weakness of the left arm. Patient reports pain and numbness worsening and frustrated with same. 02/13: Patient seen at bedside. Continues to complain of numbness, weakness and pain of the left arm with reduced software test developer. Patient reports concerns about steroid dose as she reports skin thinning and lower and upper extremity swelling. 02/14: Patient seen at bedside. Resting comfortably in bed. Persistent numbness and weakness of left arm. Denies nausea, vomiting, chest pain and shortness of breath. Pertinent positives and negatives discussed above, a complete review of systems was preformed and all the other systems were negative. Vitals Signs Reviewed. GENERAL: The patient is alert and oriented x3, not in any acute distress. Well developed, well nourished. HEENT: Pupils are round and equally reacting to light. EOMI. No scleral icterus. No conjunctival pallor. Normocephalic, atraumatic. No pharyngeal erythema. No th yromegaly. CARDIOVASCULAR: S1 and S2 present. No murmurs, rubs, or gallops. PULMONARY: Chest is clear to auscultation, no wheezing or crackles. ABDOMEN: Soft, nontender, nondistended, normoactive bowel sounds. No palpable organomegaly. MUSCULOSKELETAL: No joint swelling or deformity. EXTREMITIES: No cyanosis, clubbing, or pedal edema. Weakness and numbness extending from left hand up to the shoulder. Pinprick sensation absent to dorsal aspect of the left hand however present on palmar aspect. 3 out of 5 strength in the left arm. Reduced software test developer strength in the left hand compared to the right hand. NEUROLOGICAL: Decreased software test developer strength in the left upper extremity SKIN: No rashes. Imaging: No new images MRI cervical spine showed no evidence for disc herniation or significant spinal canal stenosis, postsurgical changes with no evidence for significant spinal canal or neural foraminal stenosis, no abnormal postcontrast enhancement, mild multilevel disc degeneration with associated osteoarthritic changes Assessment and plan: #Radicular neck pain with left upper extremity numbness. - Surgical intervention of C4-C5 anterior cervical discectomy and fusion this Wednesday with . Lovenox on 02/15/2025 (24 hours before procedure) - On IV Solu-Medrol -MRI brain with and without contrast negative and not suggestive of demyelinization -Status post LP which is unremarkable other than elevated glucose likely secondary to IV steroids Neurology following, has increased IV steroids, appreciate further recommendations. #Left upper extremity radiculopathy and weakness, secondary to cervical degenerative disease: Continue Solu-Medrol 80 mg IV Q8HR, patient underwent cervical epidural steroid injection and trigger point injection cervical paraspinal muscles left side total of 5 trigger point injections Inadequate pain control with breath-holding spells Acute leukocytosis, likely reactive, secondary to steroid use #Subclinical hypothyroidism TSH 0.277, FT4 0.45. T3 0.90 Patient asymptomatic, likely secondary to steroid use. - Monitor thyroid levels in a weeks time. MRI negative #Hypokalemia -Hypokalemia potassium improved after replacement Chronic: #COPD without any acute exacerbation #Hypertension #Neuropathy #ADHD/anxiety disorder for which patient is on Ritalin - Continue nicotine use: Counseling was provided - Continue home medications DVT prophylaxis: Lovenox GI prophylaxis Protonix Full code Objective - Vital Signs Vital signs: Vital Signs Temp 98.5 F 02/14/25 07:55 Pulse 95 02/14/25 07:55 Resp 20 02/14/25 07:55 BP 100/63 02/14/25 07:55 Pulse Ox 97 02/14/25 07:55 FiO2 Intake & Output 02/13/25 02/14/25 02/14/25 18:59 06:59 18:59 Intake Total 118 Balance 118 Intake: Oral 118 Other: Voiding Method Toilet # Voids 2 3 # Bowel Movements 1 - Labs CBC & Chem 7: 02/20/25 08:23 02/19/25 00:06 Labs: Abnormal Lab Results - Last 24 Hours (Table) 02/13/25 02/13/25 02/13/25 Range/Units 06:20 12:50 20:28 WBC (4.50-10.00) 10*3/uL RDW (11.5-14.5) % MPV (9.5-12.2) fL Immature Gran # (0.00-0.04) 10*3/uL Neutrophils # (Manual) 18.58 H (1.3-7.7) k/uL Lymphocytes # (Manual) (1.0-4.8) k/uL Monocytes # (Manual) 1.63 H (0-1.0) k/uL Sodium (137-145) mmol/L Chloride (98-107) mmol/L Carbon Dioxide (22-30) mmol/L BUN (7-17) mg/dL POC Glucose (mg/dL) 133 H 142 H (70-110) mg/dL Total Protein (6.3-8.2) g/dL Albumin (3.5-5.0) g/dL 02/14/25 02/14/25 02/14/25 Range/Units 04:54 04:54 06:02 WBC 17.62 H (4.50-10.00) 10*3/uL RDW 14.9 H (11.5-14.5) % MPV 9.0 L (9.5-12.2) fL Immature Gran # 1.33 H (0.00-0.04) 10*3/uL Neutrophils # (Manual) 11.10 H (1.3-7.7) k/uL Lymphocytes # (Manual) 5.99 H (1.0-4.8) k/uL Monocytes # (Manual) (0-1.0) k/uL Sodium 136 L (137-145) mmol/L Chloride 97 L (98-107) mmol/L Carbon Dioxide 31 H (22-30) mmol/L BUN 24 H (7-17) mg/dL POC Glucose (mg/dL) 111 H (70-110) mg/dL Total Protein 5.4 L (6.3-8.2) g/dL Albumin 3.2 L (3.5-5.0) g/dL Microbiology - Last 24 Hours (Table) 02/10/25 14:00 CSF Gram Stain - Preliminary Cerebral Spinal Fluid CSF Culture - Preliminary Assessment and Plan Assessment: Attestation Attestation/ Gang Tailer Note: Attestation to Progress Note, Participation (I saw and evaluated the patient with the Resident, and I reviewed and discussed the patient with the Resident and agree with the Resident's findings and plans as documented above., management reviewed and discussed), I agree with findings & plan, Provider Signature (CHELSEA SHORE, HOLDEN Otoole Time with Patient: Greater than 30
[2025-02-15 06:38] LABS: Basophils # (A) 0.10 10*3/uL (0.00-0.10); Basophils % (A) 0.5 %; Eosinophils # (A) 0.37 10*3/uL (0.04-0.35); Eosinophils % (A) 1.8 %; HCT 41.0 % (37.2-46.3); HGB 13.2 g/dL (12.0-15.0); Lymphocytes # (A) 2.80 10*3/uL (0.90-5.00); Lymphocytes % (A) 14.0 %; MCH 30.3 pg (27.0-32.0); MCHC 32.2 g/dL (32.0-37.0); MCV 94.0 fL (80.0-97.0); Monocytes # (A) 1.33 10*3/uL (0.20-1.00); Monocytes % (A) 6.6 %; Neutrophils # (A) 14.73 10*3/uL (1.80-7.70); Neutrophils % (A) 73.5 %; Platelet Count 285 10*3/uL (140-440); RBC 4.36 10*6/uL (4.10-5.20); RDW 14.8 % (11.5-14.5); WBC 20.05 10*3/uL (4.50-10.00)
[2025-02-15 06:58] LABS: ALT 24 U/L (4-34); AST 20 U/L (14-36); African American GFR (CKD) >90 (>60 ml/min/1.73 sqM); Albumin 3.3 g/dL (3.5-5.0); Albumin/Globulin Ratio 1.5; Alkaline Phosphatase 108 U/L (38-126); Anion Gap 8 mmol/L; Blood Urea Nitrogen 18 mg/dL (7-17); Calcium 8.5 mg/dL (8.4-10.2); Carbon Dioxide 30 mmol/L (22-30); Chloride 97 mmol/L (98-107); Globulin 2.2 g/dL; Glucose 96 mg/dL (74-99); Non-African American GFR(CKD) 89 (>60 ml/min/1.73 sqM); Potassium 4.6 mmol/L (3.5-5.1); Sodium 135 mmol/L (137-145); Total Protein 5.5 g/dL (6.3-8.2)
--- NOTE | 2025-02-15 15:49 | P.PN ---
Subjective Progress Note Date: 02/15/25 HPI: 48-year-old female with a history of C5-6 fusion surgery in the past came in with complaints of severe neck pain stiffness in the neck pain radiating to the left upper extremity and numbness in the left thumb index and middle fingers. Patient has decreased pipeline controller in that hand as well patient tingling numbness extends to the forearm is complaining of severe pain in the neck patient had a CT of the cervical spine which showed multilevel degenerative changes in the hardware at C5-C6 level and bilateral neural foraminal stenosis at C6-C7 level. Subjective: 02/06: Patient seen at bedside. No significant overnight events. States she still having significant neck pain, ready for the injection today with pain management. No other complaints at this time. 02/07: Patient seen and examined at bedside status post cervical epidural injection day 1, tolerated the procedure well still experiencing pain. Time till effect discussed with patient 02/08: Patient seen at bedside. Patient reports progressive worsening of left arm weakness. Patient initially experienced carotid weakness and numbness in medial aspect of her hand however started developing weakness in her entire hand extending up to her shoulder from last night. Pinprick sensation absent in dorsal aspect of the left hand however present in palmar aspect. 02/09: Patient seen at bedside. Patient reports continuous worsening of left arm weakness. Reports trace pinprick sensation in dorsal aspect of the left hand, previously completely absent in the left hand. Complaints of persistent left- sided neck pain and reduced left arm power against gravity. 02/10: Patient seen at bedside. Patient reports continuous worsening of left arm weakness. Left hand pipeline controller reduced, similar to previous days. Reports reduced pain in the neck. Pending MRI brain today. 02/11/2025 Patient is seen in follow-up today currently sitting up in bed reporting she has been up and back and forth to the bathroom with no difficulties although continues with upper back and neck pain that has been ongoing. Patient is reporting she is receiving IV morphine although asking for an increase as she reports it wears off and has severe 10/10 pain. Will continue with morphine as prescribed and as needed and will adjust [place] slightly and increase the dose. Patient is maintained on IV steroids and increasing the dose per neurology re commendations. Orthopedics following continuing with conservative management until neurological workup has been completed. Discussing possible surgical intervention given patient remains symptomatic. 02/12: Patient seen at bedside. Persistent numbness and weakness of the left arm. Patient reports pain and numbness worsening and frustrated with same. 02/13: Patient seen at bedside. Continues to complain of numbness, weakness and pain of the left arm with reduced pipeline controller. Patient reports concerns about steroid dose as she reports skin thinning and lower and upper extremity swelling. 02/14: Patient seen at bedside. Resting comfortably in bed. Persistent numbness and weakness of left arm. Denies nausea, vomiting, chest pain and shortness of breath. 02/15: Patient seen at bedside. No acute distress. Reports slight improvement in left arm pain. Reports decrease in bilateral lower and upper extremity swelling secondary to steroids. Denies nausea, vomiting, chest pain and shortness of breath. Pertinent positives and negatives discussed above, a complete review of systems was preformed and all the other systems were negative. Vitals Signs Reviewed. GENERAL: The patient is alert and oriented x3, not in any acute distress. Well developed, well nourished. HEENT: Pupils are round and equally reacting to light. EOMI. No scleral icterus. No conjunctival pallor. Normocephalic, atraumatic. No pharyngeal erythema. No thyromegaly. CARDIOVASCULAR: S1 and S2 present. No murmurs, rubs, or gallops. PULMONARY: Chest is clear to auscultation, no wheezing or crackles. ABDOMEN: Soft, nontender, nondistended, normoactive bowel sounds. No palpable organomegaly. MUSCULOSKELETAL: No joint swelling or deformity. EXTREMITIES: No cyanosis, clubbing, or pedal edema. Weakness and numbness extending from left hand up to the shoulder. Pinprick sensation absent to dorsal aspect of the left hand however present on palmar aspect. 3 out of 5 strength in the left arm. Reduced pipeline controller strength in the left hand compared to the right hand. NEUROLOGICAL: Decreased pipeline controller strength in the left upper extremity SKIN: No rashes. Imaging: No new images MRI cervical spine showed no evidence for disc herniation or significant spinal canal stenosis, postsurgical changes with no evidence for significant spinal canal or neural foraminal stenosis, no abnormal postcontrast enhancement, mild multilevel disc degeneration with associated osteoarthritic changes Assessment and plan: #Radicular neck pain with left upper extremity numbness. #Left upper extremity radiculopathy and weakness, secondary to cervical degenerative disease - Surgical intervention of C4-C5 anterior cervical discectomy and fusion tomorrow by . -N.P.o. after midnight tonight. Hold Lovenox Discontinued IV Solu-Medrol by neurology as appropriations request -MRI brain with and without contrast negative and not suggestive of demyelinization -Status post LP which is unremarkable other than elevated glucose likely secondary to IV steroids Neurology following, appreciate further recommendations. #Subclinical hypothyroidism likely secondary to steroid use. TSH 0.277, FT4 0.45. T3 0.90 Patient asymptomatic, likely secondary to steroid use. - Monitor thyroid levels in a weeks time. #Hypokalemia -Hypokalemia potassium improved after replacement Chronic: #COPD without any acute exacerbation #Hypertension #Neuropathy #ADHD/anxiety disorder for which patient is on Ritalin - Continue nicotine use: Counseling was provided - Continue home medications DVT prophylaxis: Lovenox on hold due to surgery tomorrow. GI prophylaxis Protonix Full code Objective - Vital Signs Vital signs: Vital Signs Temp 99.7 F H 02/15/25 07:19 Pulse 101 H 02/15/25 07:19 Resp 18 02/15/25 07:19 BP 113/73 02/15/25 07:19 Pulse Ox 97 02/15/25 07:19 FiO2 Intake & Output 02/14/25 02/15/25 02/15/25 18:59 06:59 18:59 Intake Total 340 1846 Balance 340 1846 Intake: Oral 340 1846 Other: Voiding Method Toilet Toilet Toilet # Voids 2 1 - Labs CBC & Chem 7: 02/20/25 08:23 02/19/25 00:06 Labs: Abnormal Lab Results - Last 24 Hours (Table) 02/10/25 02/14/25 02/15/25 Range/Units 04:47 16:57 05:47 WBC 20.05 H (4.50-10.00) 10*3/uL RDW 14.8 H (11.5-14.5) % Immature Gran # 0.72 H (0.00-0.04) 10*3/uL Neutrophils # 14.73 H (1.80-7.70) 10*3/uL Monocytes # 1.33 H (0.20-1.00) 10*3/uL Eosinophils # 0.37 H (0.04-0.35) 10*3/uL Sodium (137-145) mmol/L Chloride (98-107) mmol/L BUN (7-17) mg/dL POC Glucose (mg/dL) 133 H (70-110) mg/dL Total Protein (6.3-8.2) g/dL Albumin (3.5-5.0) g/dL Serum Albumin 3,170 L (3500 - 5200) mg/dL IgG 629 L (700 - 1600) mg/dL 02/15/25 Range/Units 05:47 WBC (4.50-10.00) 10*3/uL RDW (11.5-14.5) % Immature Gran # (0.00-0.04) 10*3/uL Neutrophils # (1.80-7.70) 10*3/uL Monocytes # (0.20-1.00) 10*3/uL Eosinophils # (0.04-0.35) 10*3/uL Sodium 135 L (137-145) mmol/L Chloride 97 L (98-107) mmol/L BUN 18 H (7-17) mg/dL POC Glucose (mg/dL) (70-110) mg/dL Total Protein 5.5 L (6.3-8.2) g/dL Albumin 3.3 L (3.5-5.0) g/dL Serum Albumin (3500 - 5200) mg/dL IgG (700 - 1600) mg/dL Microbiology - Last 24 Hours (Table) 02/10/25 14:00 CSF Gram Stain - Final Cerebral Spinal Fluid CSF Culture - Final Assessment and Plan Assessment: Attestation Attestation/ Solid Waste Manager Note: Attestation to Progress Note, Participation (I saw and evaluated the patient with the Resident, and I reviewed and discussed the patient with the Resident and agree with the Resident's findings and plans as documented above., management reviewed and discussed), I agree with findings & plan, Provider Signature (CHELSEA SHORE, HOLDEN Otoole
[2025-02-16 07:37] LABS: ALT 30 U/L (4-34); AST 20 U/L (14-36); African American GFR (CKD) >90 (>60 ml/min/1.73 sqM); Albumin 3.2 g/dL (3.5-5.0); Albumin/Globulin Ratio 1.4; Alkaline Phosphatase 103 U/L (38-126); Anion Gap 4 mmol/L; Blood Urea Nitrogen 16 mg/dL (7-17); Calcium 8.7 mg/dL (8.4-10.2); Carbon Dioxide 34 mmol/L (22-30); Chloride 98 mmol/L (98-107); Globulin 2.3 g/dL; Glucose 100 mg/dL (74-99); Non-African American GFR(CKD) 81 (>60 ml/min/1.73 sqM); Potassium 4.4 mmol/L (3.5-5.1); Sodium 136 mmol/L (137-145); Total Protein 5.5 g/dL (6.3-8.2)
[2025-02-16 07:51] LABS: Basophils # (A) 0.06 10*3/uL (0.00-0.10); Basophils % (A) 0.3 %; Eosinophils # (A) 0.36 10*3/uL (0.04-0.35); Eosinophils % (A) 2.0 %; HCT 39.6 % (37.2-46.3); HGB 12.8 g/dL (12.0-15.0); Lymphocytes # (A) 2.38 10*3/uL (0.90-5.00); Lymphocytes % (A) 13.1 %; MCH 30.5 pg (27.0-32.0); MCHC 32.3 g/dL (32.0-37.0); MCV 94.3 fL (80.0-97.0); Monocytes # (A) 1.32 10*3/uL (0.20-1.00); Monocytes % (A) 7.3 %; Neutrophils # (A) 13.42 10*3/uL (1.80-7.70); Neutrophils % (A) 73.9 %; Platelet Count 291 10*3/uL (140-440); RBC 4.20 10*6/uL (4.10-5.20); RDW 14.7 % (11.5-14.5); WBC 18.16 10*3/uL (4.50-10.00)
[2025-02-16] MEDS: SODIUM CHLORIDE 0.9% 1,000 ML IV SCH (12:10)
[2025-02-16] MEDS: IV FLUID CONTINUATION 800 ML IV ONE (12:26)
[2025-02-16] MEDS: MIDAZOLAM 2 MG/2 ML VIAL IV ONE (12:52)
[2025-02-16 13:00] LABS: Glucose,Whole Blood 99 mg/dL (70-110)
[2025-02-16] MEDS: IV FLUID CONTINUATION 1,000 ML IV ONE (13:06)
[2025-02-16] MEDS: LACTATED RINGERS 1,000 ML IV SCH (13:08)
--- NOTE | 2025-02-16 13:09 | P.ANPRN ---
Procedure Note - Anesthesia - Invasive Line Left Arterial Line Time Out Performed: Yes Date of Procedure: 02/16/25 Time of Procedure: 13:00 Location of Patient: PreOp Preparation: Sterile Prep Arterial Line Location: Radial Ultrasound Used: Yes Purpose - Visualization and Identification of Vasculature: Yes Image Stored and Saved: Yes Narrative: Invasive line placement per sterile protocol utilized.
[2025-02-16] MEDS ORDERED: MIDAZOLAM 2 MG/2 ML VIAL ONE (14:00)
[2025-02-16] MEDS ORDERED: SUCCINYLCHOLINE CHLORIDE 200 MG/10 ML VIAL IV ONE (14:00)
[2025-02-16] MEDS ORDERED: TRANEXAMIC 1,000 MG/100ML-NACL PREMIX BAG ONE (14:00)
[2025-02-16] MEDS ORDERED: LIDOCAINE 1% INJ 10MG/ML (20 ML MDV) ONE (14:00)
[2025-02-16] MEDS ORDERED: fentaNYL (PF) 50 MCG/ML 2 ML AMP ONE (14:00)
[2025-02-16] MEDS ORDERED: HYDROmorphone (PF) 1 MG/ML ONE (14:00)
[2025-02-16] MEDS ORDERED: PROPOFOL 10 MG/ML 20 ML VIAL IV ONE (14:00)
[2025-02-16] MEDS ORDERED: KETAMINE HCL IN 0.9 % NACL 50 MG/5 ML SYRINGE ONE (14:00)
--- NOTE | 2025-02-16 14:05 | P.PN ---
Progress Note - Text Progress Note Date: 02/16/25 Spine Surgery Clinical and Risk Review Isabell Winston is a 55-year-old female presenting for evaluation of neck pain upper extremity pain difficulty with ambulation. It was my pleasure to have seen and examined Isabell. In our visit today we have had a chance to go over subjective complaints, physical examination findings and treatments including the natural course history without intervention and various interventional options. 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 On physical exam, Isabell demonstrates bilateral upper extremity weakness difficulty with ambulation neck pain. I have explained to the patient that as their condition progresses it will cause further neurological deficits and eventual paralysis. Based on the patients imaging, physical exam, and the rapid progression and disabling nature of their symptoms, at this time I recommend surgery in the form or a: C4-5 revision ACDF. I discussed the risk and benefits of this procedure at length with Isabell. The patient agreed to considered pursuing the procedure abovementioned. Prior to surgery, she should follow up with her PCP (Cardio, ID, IM etc) for clearance. Questions were invited and answered, and the patient wishes to proceed as outlined below. Currently, I am recommendin. C4-5 anterior cervical discectomy and fusion 2. Follow up with PCP for surgical clearance 3. Review of surgical risks and benefits as well as an educational packet on the proposed surgical procedure. Risks: All surgical procedures come with inherent risks, including those related to positioning, anesthesia, intraoperative findings, and postoperative complications. It is important to understand that surgery does not come with any guarantee of a successful outcome as complications and adverse events are always possible. The patient was given a handout in office today discussing the surgical procedure and risks associated with the intervention, both of which were discussed with the patient. These risks include but are not limited to the following: Experiencing same, different or even worse symptoms in back, neck, arms, or legs compared to before surgery. Requiring further surgery or other forms of treatment presently or at some time in the future at same or other levels of the intended spine surgery. On an extreme but fortunately relatively rare basis severe complication such as blindness, stroke, heart attack, temporary and/or permanent nerve injury, paralysis, coma, or may occur, sometimes without known explanation. Surgical complications may include but are not limited to risk of infection, fluid accumulation in the surgical dissection site, including a seroma or hematoma, that requires additional surgery, wound drainage, bleeding, new numbness or weakness, vision changes/loss, spinal fluid leakage, non-healing and/or infected incision, headaches, difficulty or inability to swallow, hoarseness, hemopneumothorax, pneumothorax, impotence, retrograde ejaculation, vaginal dryness; injury to nerves, spinal cord, blood vessels, lymphatics or other vital organs (i.e., bowel injury, injury to the great vessels); heterotopic bone formation; complications related to the hardware such as screws, rods, cages including misplaced hardware, device failure, instrumentation at the wrong spine level, hardware fracture/breakage, or hardware loosening; vertebral failure of the spinal column above or below the newly placed hardware; retained surgical instrumentations or devices and the need for further surgery. Medical risks of the planned spine surgery include but are not limited to generalized Infections to the whole body or local areas outside of the surgical site (sepsis), heart attack, bleeding, anaphylaxis, meningitis, seizure, epilepsy, hearing loss, burn dugan, laceration of the head or other areas of the body, bruising, hypersensitivity of the skin, bladder over distension; allergic reaction; shoulder injury related to positioning; fat, blood and air clots to other areas of the body like heart, lungs, brain; failure of internal organs such as lungs, kidneys, liver and excessive bleeding. If blood transfusions are necessary, note that transfusions may cause intolerance reactions such as anaphylaxis or other complex reactions. Despite best efforts, the results of spine surgery might not heal in terms of bone, soft tissues such as skin, fascia, ligaments, and joints. Additionally, in order to achieve best possible results, spine surgery may be carried out beyond the initially planned levels and involve decompression, fusion including insertion of hardware at levels other than the original intended area of surgical interest change some portions of the procedure in order to ensure the best possible outcomes. With spine surgery and spinal fusion, there are different off label uses of instrumentation (devices, implants and hardware) as well as biological substances (bone morphogenic proteins, demineralized bone matrix) as well as using extra bone from allograft sources (i.e. cadaver bone) or autograft (iliac crest bone, ribs, or the spine itself). The patient has been given information about these practices and their inherent risks and benefits. The patient has had a chance to review all the listed information, has been given print outs detailing this information, and has had all his/her questions answered to their satisfaction. It was my pleasure to have seen and examined Isabell. In our visit today we have had a chance to go over my understanding of our patient's current condition, the natural course history without intervention and various interventional options. Questions were invited and answered, and the patient wishes to proceed as outlined above. I have seen and examined the patient for 25 minutes and we have spent more than 50% of the time in repeat and detailed counseling about the patient's condition, its natural course history with out and as much as can be predicted with surgery and re-review of various surgical treatment options. In conclusion, Isabell Winston and requested we proceed with the above suggested surgery and are willing to accept risks and limitations of the suggested surgery as nature of the disease process and our best attempts at treatment for the condition. Thank you again for allowing us to be part of your patient's care. Please don't hesitate to contact me if you have any further questions. Signed and authenticated by: Rickie Slater [facility] [address], [address] [address]
[2025-02-16] MEDS: FLUID CONTINUATION IV ONE (14:06)
[2025-02-16] MEDS: CEFAZOLIN IV ONE (14:06)
[2025-02-16] MEDS: THROMBIN (BOVINE) 5,000 UNIT VIAL TOPICAL ONE (14:36)
--- NOTE | 2025-02-16 14:59 | P.PN ---
Subjective Progress Note Date: 02/16/25 HPI: 48-year-old female with a history of C5-6 fusion surgery in the past came in with complaints of severe neck pain stiffness in the neck pain radiating to the left upper extremity and numbness in the left thumb index and middle fingers. Patient has decreased vault maker in that hand as well patient tingling numbness extends to the forearm is complaining of severe pain in the neck patient had a CT of the cervical spine which showed multilevel degenerative changes in the hardware at C5-C6 level and bilateral neural foraminal stenosis at C6-C7 level. Subjective: 02/06: Patient seen at bedside. No significant overnight events. States she still having significant neck pain, ready for the injection today with pain management. No other complaints at this time. 02/07: Patient seen and examined at bedside status post cervical epidural injection day 1, tolerated the procedure well still experiencing pain. Time till effect discussed with patient 02/08: Patient seen at bedside. Patient reports progressive worsening of left arm weakness. Patient initially experienced carotid weakness and numbness in medial aspect of her hand however started developing weakness in her entire hand extending up to her shoulder from last night. Pinprick sensation absent in dorsal aspect of the left hand however present in palmar aspect. 02/09: Patient seen at bedside. Patient reports continuous worsening of left arm weakness. Reports trace pinprick sensation in dorsal aspect of the left hand, previously completely absent in the left hand. Complaints of persistent left- sided neck pain and reduced left arm power against gravity. 02/10: Patient seen at bedside. Patient reports continuous worsening of left arm weakness. Left hand vault maker reduced, similar to previous days. Reports reduced pain in the neck. Pending MRI brain today. 02/11/2025 Patient is seen in follow-up today currently sitting up in bed reporting she has been up and back and forth to the bathroom with no difficulties although continues with upper back and neck pain that has been ongoing. Patient is reporting she is receiving IV morphine although asking for an increase as she reports it wears off and has severe 10/10 pain. Will continue with morphine as prescribed and as needed and will adjust [place] slightly and increase the dose. Patient is maintained on IV steroids and increasing the dose per neurology re commendations. Orthopedics following continuing with conservative management until neurological workup has been completed. Discussing possible surgical intervention given patient remains symptomatic. 02/12: Patient seen at bedside. Persistent numbness and weakness of the left arm. Patient reports pain and numbness worsening and frustrated with same. 02/13: Patient seen at bedside. Continues to complain of numbness, weakness and pain of the left arm with reduced vault maker. Patient reports concerns about steroid dose as she reports skin thinning and lower and upper extremity swelling. 02/14: Patient seen at bedside. Resting comfortably in bed. Persistent numbness and weakness of left arm. Denies nausea, vomiting, chest pain and shortness of breath. 02/15: Patient seen at bedside. No acute distress. Reports slight improvement in left arm pain. Reports decrease in bilateral lower and upper extremity swelling secondary to steroids. Denies nausea, vomiting, chest pain and shortness of breath. 02/16: Patient seen at bedside. Not in acute distress. Persistent complaints of numbness and weakness of the left arm. Denies nausea and vomiting and reports leg swelling from steroid has gotten significantly better. Denies chills, shortness of breath and chest pain. Pertinent positives and negatives discussed above, a complete review of systems was preformed and all the other systems were negative. Vitals Signs Reviewed. GENERAL: The patient is alert and oriented x3, not in any acute distress. Well developed, well nourished. HEENT: Pupils are round and equally reacting to light. EOMI. No scleral icterus. No conjunctival pallor. Normocephalic, atraumatic. No pharyngeal erythema. No thyromegaly. CARDIOVASCULAR: S1 and S2 present. No murmurs, rubs, or gallops. PULMONARY: Chest is clear to auscultation, no wheezing or crackles. ABDOMEN: Soft, nontender, nondistended, normoactive bowel sounds. No palpable organomegaly. MUSCULOSKELETAL: No joint swelling or deformity. EXTREMITIES: No cyanosis, clubbing, or pedal edema. Weakness and numbness extending from left hand up to the shoulder. Pinprick sensation absent to dorsal aspect of the left hand however present on palmar aspect. 3 out of 5 strength in the left arm. Reduced vault maker strength in the left hand compared to the right hand. NEUROLOGICAL: Decreased vault maker strength in the left upper extremity SKIN: No rashes. Imaging: No new images MRI cervical spine showed no evidence for disc herniation or significant spinal canal stenosis, postsurgical changes with no evidence for significant spinal canal or neural foraminal stenosis, no abnormal postcontrast enhancement, mild multilevel disc degeneration with associated osteoarthritic changes. Assessment and plan: #Radicular neck pain with left upper extremity numbness. #Left upper extremity radiculopathy and weakness, secondary to cervical degenerative disease - Surgical intervention of C4-C5 anterior cervical discectomy and fusion today by . Lovenox on hold -MRI brain with and without contrast negative and not suggestive of demyelinization -Status post LP which is unremarkable other than elevated glucose likely secondary to IV steroids Neurology following, appreciate further recommendations. Surgery on consult, appreciate further recommendations. #Subclinical fever with elevated white count likely secondary to prolonged thyroid use. Downtrending white counts Continue to monitor CBC daily Tylenol as needed. No concerns for infection at this time. #Subclinical hypothyroidism likely secondary to steroid use. TSH 0.277, FT4 0.45. T3 0.90 Patient asymptomatic, likely secondary to steroid use. - Monitor thyroid levels in a weeks time. #Hypokalemia -Hypokalemia potassium improved after replacement Chronic: #COPD without any acute exacerbation #Hypertension #Neuropathy #ADHD/anxiety disorder for which patient is on Ritalin - Continue nicotine use: Counseling was provided - Continue home medications DVT prophylaxis: Lovenox on hold due to surgery tomorrow. GI prophylaxis Protonix Full code Objective - Vital Signs Vital signs: Vital Signs Temp 98.4 F 02/16/25 08:00 Pulse 104 H 02/16/25 08:00 Resp 16 02/16/25 08:00 BP 104/66 02/16/25 08:00 Pulse Ox 94 L 02/16/25 08:00 FiO2 Intake & Output 02/15/25 02/16/25 02/16/25 18:59 06:59 18:59 Intake Total 1846 240 Balance 1846 240 Intake: Oral 1846 240 Other: Voiding Method Toilet # Voids 3 - Labs CBC & Chem 7: 02/20/25 08:23 02/19/25 00:06 Labs: Abnormal Lab Results - Last 24 Hours (Table) 02/16/25 02/16/25 Range/Units 07:09 07:09 WBC 18.16 H (4.50-10.00) 10*3/uL RDW 14.7 H (11.5-14.5) % MPV 9.0 L (9.5-12.2) fL Immature Gran # 0.62 H (0.00-0.04) 10*3/uL Neutrophils # 13.42 H (1.80-7.70) 10*3/uL Monocytes # 1.32 H (0.20-1.00) 10*3/uL Eosinophils # 0.36 H (0.04-0.35) 10*3/uL Sodium 136 L (137-145) mmol/L Carbon Dioxide 34 H (22-30) mmol/L Glucose 100 H (74-99) mg/dL Total Protein 5.5 L (6.3-8.2) g/dL Albumin 3.2 L (3.5-5.0) g/dL Assessment and Plan Assessment: Attestation Attestation/ Edger Technician Note: Attestation to Progress Note, Participation (I saw and evaluated the patient with the Resident, and I reviewed and discussed the patient with the Resident and agree with the Resident's findings and plans as documented above., management reviewed and discussed), I agree with findings & plan, Provider Signature (CHELSEA SHORE, HOLDEN Otoole Time with Patient: Greater than 30
[2025-02-16] MEDS ORDERED: ONDANSETRON 4 MG/2 ML VIAL IVP PRN (16:29)
--- NOTE | 2025-02-16 16:31 | XR ---
Fluoroscopy INDICATION: Pain FINDINGS: Fluoroscopy time: 28 seconds. Total dose area product (DAP) in uGy*m?, mGy*cm? (or similar): 1.0855 Images obtained: 7. Images document the procedure. IMPRESSION: 1. Documentation of fluoroscopy. [facility], , 02/16/2025 4:28 PM
[2025-02-16] MEDS: HYDROmorphone 0.5 MG/0.5 ML SYRINGE IVP PRN (16:59)
[2025-02-16] MEDS: METOPROLOL TARTRATE 5 MG/5 ML VIAL IVP STA (17:13)
--- NOTE | 2025-02-16 17:15 | FL ---
Fluoroscopy INDICATION: Pain FINDINGS: Fluoroscopy time: 28 seconds. Total dose area product (DAP) in uGy*m?, mGy*cm? (or similar): 1.0855 Images obtained: 0. Images document the procedure. IMPRESSION: 1. Documentation of fluoroscopy. [facility], , 02/16/2025 5:13 PM
--- NOTE | 2025-02-16 18:07 | P.PN ---
Progress Note - Text Progress Note Date: 02/16/25 Came to see the patient, but patient is in the OR. Dr. Cj Clements will resume neurology service from the morning.
--- NOTE | 2025-02-16 21:05 | CT ---
EXAMINATION TYPE: CT cervical spine wo con DATE OF EXAM: 02/16/2025 8:56 PM COMPARISON: 02/04/2025 CLINICAL INDICATION: Female, 55 years old with history of s/p Revision C4-C6 ACDF with C5 corpectomy, s/p revision C4-C6 ACDF with C5 corpectomy, pain TECHNIQUE: Unenhanced CT of the cervical spine was performed with bone and soft tissue window setting s submitted. Coronal and sagittal reconstruction is obtained. CT DLP: 459.8 mGycm, Automated exposure control for dose reduction was used. IV Contrast: and , (none if empty) Oral Contrast: mL of , (none if empty) FINDINGS: There is been interval resolution of previously noted ACDF. Anterior fixation plate extends from C4 t o the inferior endplate of C6. C5 corpectomy noted. Postoperative alignment appears near anatomic. St reak artifact limits examination somewhat. Postsurgical drain is noted to be in place. No abnormal co llections seen. Visualized lungs are clear. Mild degenerative narrowing at C3-4 and C6-7. Ventral and dorsal spondylosis. IMPRESSION: Appropriate postoperative alignment. [facility], , 02/16/2025 9:02 PM
[2025-02-16] MEDS: HYDROcodone/APAP 10-325MG 1 EACH TAB PO PRN (23:25)
[2025-02-17 05:47] LABS: Basophils # (A) 0.04 10*3/uL (0.00-0.10); Basophils % (A) 0.2 %; Eosinophils # (A) 0.28 10*3/uL (0.04-0.35); Eosinophils % (A) 1.3 %; HCT 38.1 % (37.2-46.3); HGB 11.8 g/dL (12.0-15.0); Lymphocytes # (A) 1.43 10*3/uL (0.90-5.00); Lymphocytes % (A) 6.4 %; MCH 29.9 pg (27.0-32.0); MCHC 31.0 g/dL (32.0-37.0); MCV 96.5 fL (80.0-97.0); Monocytes # (A) 1.17 10*3/uL (0.20-1.00); Monocytes % (A) 5.2 %; Neutrophils # (A) 19.16 10*3/uL (1.80-7.70); Neutrophils % (A) 85.5 %; Platelet Count 241 10*3/uL (140-440); RBC 3.95 10*6/uL (4.10-5.20); RDW 14.9 % (11.5-14.5); WBC 22.40 10*3/uL (4.50-10.00)
[2025-02-17 05:53] LABS: ALT 37 U/L (4-34); AST 33 U/L (14-36); African American GFR (CKD) >90 (>60 ml/min/1.73 sqM); Albumin 3.3 g/dL (3.5-5.0); Albumin/Globulin Ratio 1.4; Alkaline Phosphatase 106 U/L (38-126); Anion Gap 8 mmol/L; Blood Urea Nitrogen 10 mg/dL (7-17); Calcium 8.3 mg/dL (8.4-10.2); Carbon Dioxide 26 mmol/L (22-30); Chloride 100 mmol/L (98-107); Globulin 2.3 g/dL; Glucose 120 mg/dL (74-99); Non-African American GFR(CKD) >90 (>60 ml/min/1.73 sqM); Potassium 4.2 mmol/L (3.5-5.1); Sodium 134 mmol/L (137-145); Total Protein 5.6 g/dL (6.3-8.2)
[2025-02-17] MEDS: ACETAMINOPHEN TAB 325 MG TAB PO PRN (07:06)
[2025-02-17] MEDS: SENNOSIDES-DOCUSATE SODIUM 1 EACH TAB PO SCH (08:15)
--- NOTE | 2025-02-17 10:45 | P.PN ---
Subjective Progress Note Date: 02/17/25 Principal diagnosis: Cervical pain Left upper extremity radiculopathy and weakness Patient seen and examined this morning. Patient is sitting upright in bed. She does report that her pain is managed on current regimen. Patient states she continues to have left upper extremity radiculopathy, associated with numbness and tingling that was present prior to procedure. Surgical incision to the anterior cervical spine, edges are well-approximated with glue intact. LORI drain has been removed, 15 mL output documented overnight. Patient has been ambulatory throughout the room without any difficulty. Herminie hard collar is intact. Patient is tolerating her diet well without difficulty of swallowing. Patient is cleared from a orthopedic standpoint for discharge when medically stable. Objective - Vital Signs Vital signs: Vital Signs Temp 102.4 F H 02/17/25 07:10 Pulse 127 H 02/17/25 08:12 Resp 20 02/17/25 08:12 BP 138/88 02/17/25 07:10 Pulse Ox 93 L 02/17/25 07:10 FiO2 Intake & Output 02/16/25 02/17/25 02/17/25 18:59 06:59 18:59 Intake Total 900 Output Total 75 15 15 Balance 825 -15 -15 Intake: IV 900 Output: Drainage 15 15 Neck 15 15 Estimated Blood Loss 75 Other: Voiding Method Toilet Toilet - Exam General: The patient is awake and alert, in no acute distress Skin: Skin is warm and dry with no obvious rashes or lesions. Neck: The neck is supple, there is mild tenderness to palpation around the incision site. Surgical incision to the anterior cervical spine, edges are well-approximated with glue intact. LORI drain has been removed with 15 mL output overnight. No active drainage. Cardiovascular: There is a regular rate and rhythm. Respiratory: Respirations are non-labored. Gastrointestinal: Soft, non-distended, non-tender abdomen. Back: There is no tenderness to palpation in the midline, paralumbar, parathoracic or buttocks region. There is no obvious deformity. Musculoskeletal: ROM limited secondary to pain and stiffness. Right: shoulder abduction 5/5, elbow flexors 5/5, wrist dorsiflexors 5/5. finger abductor 5/5, leather scrubber 5/5, hip flexor 5/5, knee flexor 5/5, ankle dorsiflexor 5/5, ankle plantarflexion 5/5 and extensor hallucis 5/5. Left: shoulder abduction 4-/5, elbow flexors 4-/5, wrist dorsiflexors 4/5. finger abductor 4-/5, leather scrubber 4-/5, hip flexor 5/5, knee flexor 5/5, ankle dorsiflexor 5/5, ankle plantarflexion 5/5 and extensor hallucis 5/5. Neurological: CN 2-12 intact. There are no obvious motor or sensory deficits. Movement and coordination equal and intact. Sensory exam to light touch intact C5-T1 and intact from L2-S1. Reflexes 2/4 in bilateral upper and lower extremities. Negative Hoffmans, babinski, and clonus signs. Psychiatric: Cooperative, appropriate mood & affect, normal judgment. - Labs CBC & Chem 7: 02/17/25 04:40 02/17/25 04:40 Labs: Abnormal Lab Results - Last 24 Hours (Table) 02/17/25 02/17/25 Range/Units 04:40 04:40 WBC 22.40 H (4.50-10.00) 10*3/uL RBC 3.95 L (4.10-5.20) 10*6/uL Hgb 11.8 L (12.0-15.0) g/dL MCHC 31.0 L (32.0-37.0) g/dL RDW 14.9 H (11.5-14.5) % Immature Gran # 0.32 H (0.00-0.04) 10*3/uL Neutrophils # 19.16 H (1.80-7.70) 10*3/uL Monocytes # 1.17 H (0.20-1.00) 10*3/uL Sodium 134 L (137-145) mmol/L Glucose 120 H (74-99) mg/dL Calcium 8.3 L (8.4-10.2) mg/dL ALT 37 H (4-34) U/L Total Protein 5.6 L (6.3-8.2) g/dL Albumin 3.3 L (3.5-5.0) g/dL Assessment and Plan Assessment: Postop day 1: Revision C4-C6 ACDF with C5 corpectomy Plan: -Appreciate data power consultant and team management. -Activity: Ambulate QID, OOB all meals, up and about, limit lifting bending twisting to less than 5 lbs. Use walker or cane if needed for stability. -Daily PT/OT, increase ambulation strength and balance. - Herminie hard cervical collar on at all times, may remove for showers. -Pain control: Adequate at this time -Meds: reviewed -GI ppx: senna, Miralax -DVT PPX: SCDs TEDs -Hygiene: Maintain incision clean and dry. May change dressing as needed, please document in notes if performed. -Encourage IS 10x/hr -Dispo: Cleared from an orthopedic standpoint for discharge when medically stable. *I reviewed and discussed this case with my attending Dr. Duong, whom has reviewed this chart and films and is in agreement with assessment and plan of care as outlined above. I have personally seen and examined the patient, performed the documentation and the assessment and plan as written. Number of minutes spent on the visit: 20m.
--- NOTE | 2025-02-17 12:39 | P.PN ---
Subjective Progress Note Date: 02/17/25 HPI: 48-year-old female with a history of C5-6 fusion surgery in the past came in with complaints of severe neck pain stiffness in the neck pain radiating to the left upper extremity and numbness in the left thumb index and middle fingers. Patient has decreased berry grower in that hand as well patient tingling numbness extends to the forearm is complaining of severe pain in the neck patient had a CT of the cervical spine which showed multilevel degenerative changes in the hardware at C5-C6 level and bilateral neural foraminal stenosis at C6-C7 level. Subjective: 02/06: Patient seen at bedside. No significant overnight events. States she still having significant neck pain, ready for the injection today with pain management. No other complaints at this time. 02/07: Patient seen and examined at bedside status post cervical epidural injection day 1, tolerated the procedure well still experiencing pain. Time till effect discussed with patient 02/08: Patient seen at bedside. Patient reports progressive worsening of left arm weakness. Patient initially experienced carotid weakness and numbness in medial aspect of her hand however started developing weakness in her entire hand extending up to her shoulder from last night. Pinprick sensation absent in dorsal aspect of the left hand however present in palmar aspect. 02/09: Patient seen at bedside. Patient reports continuous worsening of left arm weakness. Reports trace pinprick sensation in dorsal aspect of the left hand, previously completely absent in the left hand. Complaints of persistent left- sided neck pain and reduced left arm power against gravity. 02/10: Patient seen at bedside. Patient reports continuous worsening of left arm weakness. Left hand berry grower reduced, similar to previous days. Reports reduced pain in the neck. Pending MRI brain today. 02/11/2025 Patient is seen in follow-up today currently sitting up in bed reporting she has been up and back and forth to the bathroom with no difficulties although continues with upper back and neck pain that has been ongoing. Patient is reporting she is receiving IV morphine although asking for an increase as she reports it wears off and has severe 10/10 pain. Will continue with morphine as prescribed and as needed and will adjust [place] slightly and increase the dose. Patient is maintained on IV steroids and increasing the dose per neurology re commendations. Orthopedics following continuing with conservative management until neurological workup has been completed. Discussing possible surgical intervention given patient remains symptomatic. 02/12: Patient seen at bedside. Persistent numbness and weakness of the left arm. Patient reports pain and numbness worsening and frustrated with same. 02/13: Patient seen at bedside. Continues to complain of numbness, weakness and pain of the left arm with reduced berry grower. Patient reports concerns about steroid dose as she reports skin thinning and lower and upper extremity swelling. 02/14: Patient seen at bedside. Resting comfortably in bed. Persistent numbness and weakness of left arm. Denies nausea, vomiting, chest pain and shortness of breath. 02/15: Patient seen at bedside. No acute distress. Reports slight improvement in left arm pain. Reports decrease in bilateral lower and upper extremity swelling secondary to steroids. Denies nausea, vomiting, chest pain and shortness of breath. 02/16: Patient seen at bedside. Not in acute distress. Persistent complaints of numbness and weakness of the left arm. Denies nausea and vomiting and reports leg swelling from steroid has gotten significantly better. Denies chills, shortness of breath and chest pain. 02/17: Patient seen at bedside. C-collar Patient happy with procedure. Reports decreased numbness in ulnar aspect of hand. Opened bowels, voided and mobilized appropriately post procedure. Reports persistent pain but states that it is being managed on current regimen. Reports 1 episode of temperature spike overn ight. Denies chills and rigors. Pertinent positives and negatives discussed above, a complete review of systems was preformed and all the other systems were negative. Vitals Signs Reviewed. Temperature 102.4 F GENERAL: The patient is alert and oriented x3, not in any acute distress. Well developed, well nourished. C-collar on neck. HEENT: Pupils are round and equally reacting to light. EOMI. No scleral icterus. No conjunctival pallor. Normocephalic, atraumatic. No pharyngeal erythema. No thyromegaly. CARDIOVASCULAR: S1 and S2 present. No murmurs, rubs, or gallops. PULMONARY: Chest is clear to auscultation, no wheezing or crackles. ABDOMEN: Soft, nontender, nondistended, normoactive bowel sounds. No palpable organomegaly. MUSCULOSKELETAL: No joint swelling or deformity. EXTREMITIES: No cyanosis, clubbing, or pedal edema. Weakness and numbness extending from left hand up to the shoulder. NEUROLOGICAL: Decreased berry grower strength in the left upper extremity SKIN: No rashes. Labs: WBC 22.4, hemoglobin 11.8, sodium 134, creatinine 0.67, potassium 4.2, creatinine 0.67. Imaging: Postoperative CT cervical spine dedicating and appropriate postoperative alignment. Assessment and plan: #Radicular neck pain with left upper extremity numbness - Status post day 1 C5- C5 anterior cervical discectomy and fusion. #Left upper extremity radiculopathy and weakness, secondary to cervical degenerative disease - LORI drain removed, 15 mL output overnight with no active drainage. Maintain incision clean and dry. May change dressing as needed. -MRI brain with and without contrast negative and not suggestive of demyelinization -Status post LP which is unremarkable other than elevated glucose likely secondary to IV steroids Neurology following, appreciate further recommendations. Surgery on consult, appreciate further recommendations. # Post operative subclinical fever with elevated white count and secondary tachycardia - 75cc/hr fluids Downtrending white counts Continue to monitor CBC daily Tylenol as needed. No concerns for infection at this time. #Subclinical hypothyroidism likely secondary to steroid use. TSH 0.277, FT4 0.45. T3 0.90 Patient asymptomatic, likely secondary to steroid use. - Monitor thyroid levels in a weeks time. #Hypokalemia -Hypokalemia potassium improved after replacement Chronic: #COPD without any acute exacerbation #Hypertension #Neuropathy #ADHD/anxiety disorder for which patient is on Ritalin - Continue nicotine use: Counseling was provided - Continue home medications Fluids: 75cc/hr lactate ringer. DVT prophylaxis: SCDs GI prophylaxis Protonix Full code Objective - Vital Signs Vital signs: Vital Signs Temp 102.4 F H 02/17/25 07:10 Pulse 127 H 02/17/25 08:12 Resp 20 02/17/25 08:12 BP 138/88 02/17/25 07:10 Pulse Ox 93 L 02/17/25 07:10 FiO2 Intake & Output 02/16/25 02/17/25 02/17/25 18:59 06:59 18:59 Intake Total 900 Output Total 75 15 15 Balance 825 -15 -15 Intake: IV 900 Output: Drainage 15 15 Neck 15 15 Estimated Blood Loss 75 Other: Voiding Method Toilet Toilet - Labs CBC & Chem 7: 02/20/25 08:23 02/19/25 00:06 Labs: Abnormal Lab Results - Last 24 Hours (Table) 02/17/25 02/17/25 Range/Units 04:40 04:40 WBC 22.40 H (4.50-10.00) 10*3/uL RBC 3.95 L (4.10-5.20) 10*6/uL Hgb 11.8 L (12.0-15.0) g/dL MCHC 31.0 L (32.0-37.0) g/dL RDW 14.9 H (11.5-14.5) % Immature Gran # 0.32 H (0.00-0.04) 10*3/uL Neutrophils # 19.16 H (1.80-7.70) 10*3/uL Monocytes # 1.17 H (0.20-1.00) 10*3/uL Sodium 134 L (137-145) mmol/L Glucose 120 H (74-99) mg/dL Calcium 8.3 L (8.4-10.2) mg/dL ALT 37 H (4-34) U/L Total Protein 5.6 L (6.3-8.2) g/dL Albumin 3.3 L (3.5-5.0) g/dL Assessment and Plan Assessment: Attestation Attestation/ Security Rover Note: Attestation to Progress Note, Participation (I saw and evaluated the patient with the Resident, and I reviewed and discussed the patient with the Resident and agree with the Resident's findings and plans as documented above., management reviewed and discussed), I agree with findings & plan, Provider Signature (CHELSEA SHORE, HOLDEN Otoole Time with Patient: Greater than 30
--- NOTE | 2025-02-17 15:23 | P.PN ---
Subjective Progress Note Date: 02/17/25 I am have seen the patient last on 02/11/2025 and since than was under the care by Dr. Santiago. Please refer to his notes for details. Yesterday, the patient had Revision of C4-C6 with C5 corepectomy and feels better in left upper extremity in strength. Objective - Vital Signs Vital signs: Vital Signs Temp 99.4 F 02/17/25 14:54 Pulse 107 H 02/17/25 14:54 Resp 18 02/17/25 14:54 BP 115/75 02/17/25 14:54 Pulse Ox 92 L 02/17/25 14:54 FiO2 Intake & Output 02/16/25 02/17/25 02/17/25 18:59 06:59 18:59 Intake Total 900 Output Total 75 15 15 Balance 825 -15 -15 Intake: IV 900 Output: Drainage 15 15 Neck 15 15 Estimated Blood Loss 75 Other: Voiding Method Toilet Toilet - Labs CBC & Chem 7: 02/17/25 04:40 02/17/25 04:40 Labs: Abnormal Lab Results - Last 24 Hours (Table) 02/17/25 02/17/25 Range/Units 04:40 04:40 WBC 22.40 H (4.50-10.00) 10*3/uL RBC 3.95 L (4.10-5.20) 10*6/uL Hgb 11.8 L (12.0-15.0) g/dL MCHC 31.0 L (32.0-37.0) g/dL RDW 14.9 H (11.5-14.5) % Immature Gran # 0.32 H (0.00-0.04) 10*3/uL Neutrophils # 19.16 H (1.80-7.70) 10*3/uL Monocytes # 1.17 H (0.20-1.00) 10*3/uL Sodium 134 L (137-145) mmol/L Glucose 120 H (74-99) mg/dL Calcium 8.3 L (8.4-10.2) mg/dL ALT 37 H (4-34) U/L Total Protein 5.6 L (6.3-8.2) g/dL Albumin 3.3 L (3.5-5.0) g/dL Assessment and Plan Assessment: Patient is a 54-year-old woman who presents emergency department because of left neck pain rating down her thumb and index finger with paresthesia and over those distribution and having pain and weakness. She stated that she had neck pain in 2002 with ulnar distribution and was told she had mild disc bulge and had cervical fusion in 2002 and after that her symptoms resolved. According to her her sister has lesions in the brain with possible diagnosis of multiple sclerosis when in her 28 years old. 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 Patient has associated radicular symptoms in the left C6-C7 distribution. Yesterday she had Revision of C4-C6 with C5 corepectomy and feels better in left upper extremity in strength. MRI Brain and cervical spine is negative for acute or subacute lesion or any enhancement suggestive for Multiple Sclerosis or stroke. Patient had a cervical epidural steroid injection over the C6-C7 region without relief History of neck pain with paresthesia over the left ulnar distribution in 2002 and resolved after surgery History Anxiety History Depression Plan: Recommend EMG with nerve conduction study of the left upper extremity as an outpatient. CSF with 0 WBCs, 2 RBC, glucose 96, protein 47, MS panel is completely negative. IgG synthesis rate, IgG index and OCB are all negative. Comprehensive viral panel negative. Patient is noticing significant side effects from Solu-Medrol without any improvement so it was stopped. Patient started on Lasix for peripheral edema. Start Soma 350 mg 3 times daily. If no improvement in 24 to 48 hours, will stop Soma. Per Dr. Santiago, consider trying Artane. Patient states she has previously failed baclofen, Robaxin and Flexeril. Physical therapy for cervical spondylosis. Patient may benefit from Botox injections for possible cervical dystonia. The patient is on gabapentin 800 mg 3 times daily. Orthopedic surgery team is on board Recommend correction of thyroid to primary team. Will defer the rest of the medical management the primary other specialist Recommend the patient to follow-up with outpatient neurologist within 3 weeks. Otherwise, will follow-up sporadically. Time with Patient: Less than 30
--- NOTE | 2025-02-18 23:50 | P.PN ---
Subjective Progress Note Date: 02/18/25 HPI: 48-year-old female with a history of C5-6 fusion surgery in the past came in with complaints of severe neck pain stiffness in the neck pain radiating to the left upper extremity and numbness in the left thumb index and middle fingers. Patient has decreased fish hatchery man in that hand as well patient tingling numbness extends to the forearm is complaining of severe pain in the neck patient had a CT of the cervical spine which showed multilevel degenerative changes in the hardware at C5-C6 level and bilateral neural foraminal stenosis at C6-C7 level. Subjective: 02/06: Patient seen at bedside. No significant overnight events. States she still having significant neck pain, ready for the injection today with pain management. No other complaints at this time. 02/07: Patient seen and examined at bedside status post cervical epidural injection day 1, tolerated the procedure well still experiencing pain. Time till effect discussed with patient 02/08: Patient seen at bedside. Patient reports progressive worsening of left arm weakness. Patient initially experienced carotid weakness and numbness in m edial aspect of her hand however started developing weakness in her entire hand extending up to her shoulder from last night. Pinprick sensation absent in dorsal aspect of the left hand however present in palmar aspect. 02/09: Patient seen at bedside. Patient reports continuous worsening of left arm weakness. Reports trace pinprick sensation in dorsal aspect of the left hand, previously completely absent in the left hand. Complaints of persistent left- sided neck pain and reduced left arm power against gravity. 02/10: Patient seen at bedside. Patient reports continuous worsening of left arm weakness. Left hand fish hatchery man reduced, similar to previous days. Reports reduced pain in the neck. Pending MRI brain today. 02/11/2025 Patient is seen in follow-up today currently sitting up in bed reporting she has been up and back and forth to the bathroom with no difficulties although continues with upper back and neck pain that has been ongoing. Patient is reporting she is receiving IV morphine although asking for an increase as she reports it wears off and has severe 10/10 pain. Will continue with morphine as prescribed and as needed and will adjust Irving slightly and increase the dose. Patient is maintained on IV steroids and increasing the dose per neurology recommendations. Orthopedics following continuing with conservative management until neurological workup has been completed. Discussing possible surgical intervention given patient remains symptomatic. 02/12: Patient seen at bedside. Persistent numbness and weakness of the left arm. Patient reports pain and numbness worsening and frustrated with same. 02/13: Patient seen at bedside. Continues to complain of numbness, weakness and pain of the left arm with reduced fish hatchery man. Patient reports concerns about steroid dose as she reports skin thinning and lower and upper extremity swelling. 02/14: Patient seen at bedside. Resting comfortably in bed. Persistent numbness and weakness of left arm. Denies nausea, vomiting, chest pain and shortness of breath. 02/15: Patient seen at bedside. No acute distress. Reports slight improvement in left arm pain. Reports decrease in bilateral lower and upper extremity swelling secondary to steroids. Denies nausea, vomiting, chest pain and shortness of breath. 02/16: Patient seen at bedside. Not in acute distress. Persistent complaints of numbness and weakness of the left arm. Denies nausea and vomiting and reports leg swelling from steroid has gotten significantly better. Denies chills, shortness of breath and chest pain. 02/17: Patient seen at bedside. C-collar Patient happy with procedure. Reports decreased numbness in ulnar aspect of hand. Opened bowels, voided and mobilized appropriately post procedure. Reports persistent pain but states that it is being managed on current regimen. Reports 1 episode of temperature spike overnight. Denies chills and rigors. 02/18/2025. Patient is sitting in the bed. C-collar in place. Patient is complaining of difficulty swallowing due to c-collar. Otherwise denied any aspiration or choking. Patient has been afebrile. Pain is controlled. Tmax 100.5 laboratory data showed WBC 22.4 hemoglobin 11.8 and platelets 241 sodium 134 potassium 4.2 chloride 100 bicarb is 26 BUN 10 and creatinine 0.67. Patient is on Ringer's lactate at 75 cc/h. Pertinent positives and negatives discussed above, a complete review of systems was preformed and all the other systems were negative. Vitals Signs Reviewed. Temperature 102.4 F GENERAL: The patient is alert and oriented x3, not in any acute distress. Well developed, well nourished. C-collar on neck. HEENT: Pupils are round and equally reacting to light. EOMI. No scleral icterus. No conjunctival pallor. Normocephalic, atraumatic. No pharyngeal erythema. No thyromegaly. CARDIOVASCULAR: S1 and S2 present. No murmurs, rubs, or gallops. PULMONARY: Chest is clear to auscultation, no wheezing or crackles. ABDOMEN: Soft, nontender, nondistended, normoactive bowel sounds. No palpable organomegaly. MUSCULOSKELETAL: No joint swelling or deformity. EXTREMITIES: No cyanosis, clubbing, or pedal edema. Weakness and numbness extending from left hand up to the shoulder. NEUROLOGICAL: Decreased fish hatchery man strength in the left upper extremity SKIN: No rashes. Labs: WBC 22.4, hemoglobin 11.8, sodium 134, creatinine 0.67, potassium 4.2, creatinine 0.67. Imaging: Postoperative CT cervical spine dedicating and appropriate postoperative alignment. Assessment and plan: #Radicular neck pain with left upper extremity numbness - Status post day 2 C5- C5 anterior cervical discectomy and fusion. #Left upper extremity radiculopathy and weakness, secondary to cervical degenerative disease - LORI drain removed, 15 mL output overnight with no active drainage. Maintain incision clean and dry. May change dressing as needed. -MRI brain with and without contrast negative and not suggestive of demyelinization -Status post LP which is unremarkable other than elevated glucose likely secondary to IV steroids Neurology following, appreciate further recommendations. Surgery on consult, appreciate further recommendations. # Post operative subclinical fever with elevated white count and secondary tachycardia - 75cc/hr fluids Downtrending white counts Continue to monitor CBC daily Tylenol as needed. No concerns for infection at this time. #Subclinical hypothyroidism likely secondary to steroid use. TSH 0.277, FT4 0.45. T3 0.90 Patient asymptomatic, likely secondary to steroid use. - Monitor thyroid levels in a weeks time. #Hypokalemia -Hypokalemia potassium improved after replacement Chronic: #COPD without any acute exacerbation #Hypertension #Neuropathy #ADHD/anxiety disorder for which patient is on Ritalin - Continue nicotine use: Counseling was provided - Continue home medications Fluids: 75cc/hr lactate ringer. DVT prophylaxis: SCDs GI prophylaxis Protonix Full code Objective - Vital Signs Vital signs: Vital Signs Temp 102.3 F H 02/18/25 20:47 Pulse 107 H 02/18/25 20:47 Resp 16 02/18/25 20:47 BP 120/78 02/18/25 20:47 Pulse Ox 93 L 02/18/25 20:47 FiO2 Intake & Output 02/18/25 02/18/25 02/19/25 06:59 18:59 06:59 Output Total 15 Balance -15 Output: Drainage 15 Neck 15 Other: Voiding Method Toilet Toilet # Voids 3 # Bowel Movements 0 - Labs CBC & Chem 7: 02/17/25 04:40 02/17/25 04:40
[2025-02-18] MEDS: HYDROmorphone 0.5 MG/0.5 ML SYRINGE IVP STA (23:57)
--- NOTE | 2025-02-19 00:33 | XR ---
EXAM: XR Chest, 1 View CLINICAL HISTORY: Fever TECHNIQUE: Frontal view of the chest. COMPARISON: Chest radiograph 11/16/2022 FINDINGS: Lungs: Bilateral airspace opacities are present. Pleural space: Unremarkable. No pneumothorax. Heart: Cardiomegaly. Mediastinum: Stable contour of the mediastinum. Bones/joints: No acute fracture. IMPRESSION: 1. Bilateral airspace opacities may represent pulmonary edema and/or atypical infection. 2. Cardiomegaly.
[2025-02-19 00:57] LABS: African American GFR (CKD) >90 (>60 ml/min/1.73 sqM); Anion Gap 6 mmol/L; Blood Urea Nitrogen 10 mg/dL (7-17); Calcium 8.7 mg/dL (8.4-10.2); Carbon Dioxide 26 mmol/L (22-30); Chloride 102 mmol/L (98-107); Glucose 112 mg/dL (74-99); Non-African American GFR(CKD) >90 (>60 ml/min/1.73 sqM); Potassium 4.0 mmol/L (3.5-5.1); Sodium 134 mmol/L (137-145)
[2025-02-19 01:33] LABS: Basophils # (A) 0.03 10*3/uL (0.00-0.10); Basophils % (A) 0.2 %; Eosinophils # (A) 0.23 10*3/uL (0.04-0.35); Eosinophils % (A) 1.2 %; HCT 33.1 % (37.2-46.3); HGB 10.5 g/dL (12.0-15.0); Lymphocytes # (A) 1.42 10*3/uL (0.90-5.00); Lymphocytes % (A) 7.2 %; MCH 30.2 pg (27.0-32.0); MCHC 31.7 g/dL (32.0-37.0); MCV 95.1 fL (80.0-97.0); Monocytes # (A) 1.96 10*3/uL (0.20-1.00); Monocytes % (A) 9.9 %; Neutrophils # (A) 15.94 10*3/uL (1.80-7.70); Neutrophils % (A) 80.5 %; Platelet Count 240 10*3/uL (140-440); RBC 3.48 10*6/uL (4.10-5.20); RDW 15.1 % (11.5-14.5); WBC 19.78 10*3/uL (4.50-10.00)
[2025-02-19 06:38] LABS: Bilirubin,Urine Negative (Negative); Blood,Urine Small (Negative); Color,Urine Colorless; Glucose,Urine (UA) Negative (Negative); Ketones,Urine Negative (Negative); Leukocyte Esterase,Urine Negative (Negative); Nitrite,Urine Negative (Negative); PH, Urine 6.0 (5.0-8.0); Protein,Urine Negative (Negative); RBC,Urine <1 /hpf (0-5); Specific Gravity,Urine 1.009 (1.001-1.035); Squamous Epithelial Cell,Urine 1 /hpf (0-4); Urobilinogen,Urine <2.0 mg/dL (<2.0); WBC,Urine 1 /hpf (0-5)
--- NOTE | 2025-02-19 14:56 | P.PN ---
Subjective Progress Note Date: 02/19/25 I am following-up with the patient and she states she feels is about the same. Is having low grade fever. She continues to have radicular pain over the left side but ?not as drastic. Denies any new neurological issues Objective - Vital Signs Vital signs: Vital Signs Temp 98.2 F 02/19/25 13:43 Pulse 116 H 02/19/25 13:43 Resp 16 02/19/25 13:43 BP 124/76 02/19/25 13:43 Pulse Ox 94 L 02/19/25 13:43 FiO2 Intake & Output 02/18/25 02/19/25 02/19/25 18:59 06:59 18:59 Output Total 15 15 Balance -15 -15 Output: Drainage 15 15 Neck 15 15 Other: Voiding Method Toilet Toilet # Voids 3 # Bowel Movements 0 - Exam GENERAL: The patient is sitting up in bed and is in mild acute distress. NEUROLOGICAL: Higher mental function: The patient is awake, alert, oriented to self, place and time. Patient is following commands. No aphasia and no neglect. Cranial nerves: The pupils are round, equal and reactive to light and accommod ation. Visual pascal are full to confrontation throughout. Extraocular movement is intact no nystagmus is noted. Facial sensation is decrease to touch over the V2 focal on left. The facial strength is normal throughout. Hearing is normal bilaterally to hand rub. Tongue is midline and moved [id number] without any difficulty. Has hoarse voice. Shoulder shrug is normal on the right side and was able to lift above gravity but some limitation because of pain. Motor: Gait is normal with normal arm swings. The strength in the left upper extremity is limited because of pain but was 4. Otherwise 5 over 5 throughout. Normal tone and bulk. Cerebellum: Normal finger to nose bilaterally. Sensation: Sensation is decrease in patchy distribution on the left upper extremity to touch. Some of the workup during this hospital visit consisted of: Initial white blood cell is within normal limits but then currently is trending up after Solu-Medrol ESR: 10 CK 14 TSH: 0.288 and Free T4: 0.45 JOSE Negative RF: <15 B12: 413 Homocyteine: 16.5 Calcium is 9.5 on presentation, sodium is 142 magnesium is 1.7 CSF: clear, colorless, nucleated cell 0, csf rbc 2, glucose 96 and protein is 47. MRI of the cervical spine is reported as no evidence for disc herniation or significant spinal canal stenosis. Postsurgical changes with no evidence for significant spinal canal or neuroforaminal stenosis. No abnormal postcontrast enhancement. Mild multilevel disc degeneration with associated osteoarthritic changes. MRI Brain: - Labs CBC & Chem 7: 02/19/25 00:06 02/19/25 00:06 Labs: Abnormal Lab Results - Last 24 Hours (Table) 02/19/25 02/19/25 02/19/25 Range/Units 00:06 00:06 05:59 WBC 19.78 H (4.50-10.00) 10*3/uL RBC 3.48 L (4.10-5.20) 10*6/uL Hgb 10.5 L (12.0-15.0) g/dL Hct 33.1 L (37.2-46.3) % MCHC 31.7 L (32.0-37.0) g/dL RDW 15.1 H (11.5-14.5) % Immature Gran # 0.20 H (0.00-0.04) 10*3/uL Neutrophils # 15.94 H (1.80-7.70) 10*3/uL Monocytes # 1.96 H (0.20-1.00) 10*3/uL Sodium 134 L (137-145) mmol/L Glucose 112 H (74-99) mg/dL Urine Blood Small H (Negative) Assessment and Plan Assessment: Patient is a 54-year-old woman who presents emergency department because of left neck pain rating down her thumb and index finger with paresthesia and over those distribution and having pain and weakness. She stated that she had neck pain in 2002 with ulnar distribution and was told she had mild disc bulge and had cervical fusion in 2002 and after that her symptoms resolved. According to her her sister has lesions in the brain with possible diagnosis of multiple sclerosis when in her 28 years old. 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 Patient has associated radicular symptoms in the left C6-C7 distribution s/p Revision of C4- C6 with C5 corepectomy on 02/16/2025MRI Brain and cervical spine is negative for acute or subacute lesion or any enhancement suggestive for Multiple Sclerosis or stroke. Patient had a cervical epidural steroid injection over the C6-C7 region without relief Pyrexia unknown rule out atelectasis from post-op. History of neck pain with paresthesia over the left ulnar distribution in 2003 and resolved after surgery History Anxiety History Depression Plan: Recommend EMG with nerve conduction study of the left upper extremity as an outpatient. CSF with 0 WBCs, 2 RBC, glucose 96, protein 47, MS panel is completely negative. IgG synthesis rate, IgG index and OCB are all negative. Comprehensive viral panel negative. Patient is noticing significant side effects from Solu-Medrol without any improvement so it was stopped. Patient started on Lasix for peripheral edema. Dr. Santiago started her on Soma 350 mg 3 times daily and she feels there is improvement in pain. Per Dr. Santiago, consider trying Artane. Patient states she has previously failed baclofen, Robaxin and Flexeril. Physical therapy for cervical spondylosis. Patient may benefit from Botox injections for possible cervical dystonia and that can be considered as outpatient.. The patient is on gabapentin 800 mg 3 times daily. Orthopedic surgery team is on board Recommend correction of thyroid to primary team. Will defer the rest of the medical management the primary other specialist Recommend the patient to follow-up with outpatient neurologist within 3 weeks. Otherwise, will follow-up sporadically. Time with Patient: Less than 30
--- NOTE | 2025-02-19 17:58 | P.PN ---
Subjective Progress Note Date: 02/19/25 HPI: 48-year-old female with a history of C5-6 fusion surgery in the past came in with complaints of severe neck pain stiffness in the neck pain radiating to the left upper extremity and numbness in the left thumb index and middle fingers. 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 Subjective: 02/06: Patient seen at bedside. No significant overnight events. States she still having significant neck pain, ready for the injection today with pain management. No other complaints at this time. 02/07: Patient seen and examined at bedside status post cervical epidural injection day 1, tolerated the procedure well still experiencing pain. Time till effect discussed with patient 02/08: Patient seen at bedside. Patient reports progressive worsening of left arm weakness. Patient initially experienced carotid weakness and numbness in m edial aspect of her hand however started developing weakness in her entire hand extending up to her shoulder from last night. Pinprick sensation absent in dorsal aspect of the left hand however present in palmar aspect. 02/09: Patient seen at bedside. Patient reports continuous worsening of left arm weakness. Reports trace pinprick sensation in dorsal aspect of the left hand, previously completely absent in the left hand. Complaints of persistent left- sided neck pain and reduced left arm power against gravity. 02/10: Patient seen at bedside. Patient reports continuous worsening of left arm weakness. Left hand knitter operator reduced, similar to previous days. Reports reduced pain in the neck. Pending MRI brain today. 02/11/2025 Patient is seen in follow-up today currently sitting up in bed reporting she has been up and back and forth to the bathroom with no difficulties although continues with upper back and neck pain that has been ongoing. Patient is reporting she is receiving IV morphine although asking for an increase as she reports it wears off and has severe 10/10 pain. Will continue with morphine as prescribed and as needed and will adjust Adams slightly and increase the dose. Patient is maintained on IV steroids and increasing the dose per neurology recommendations. Orthopedics following continuing with conservative management until neurological workup has been completed. Discussing possible surgical intervention given patient remains symptomatic. 02/12: Patient seen at bedside. Persistent numbness and weakness of the left arm. Patient reports pain and numbness worsening and frustrated with same. 02/13: Patient seen at bedside. Continues to complain of numbness, weakness and pain of the left arm with reduced knitter operator. Patient reports concerns about steroid dose as she reports skin thinning and lower and upper extremity swelling. 02/14: Patient seen at bedside. Resting comfortably in bed. Persistent numbness and weakness of left arm. Denies nausea, vomiting, chest pain and shortness of breath. 02/15: Patient seen at bedside. No acute distress. Reports slight improvement in left arm pain. Reports decrease in bilateral lower and upper extremity swelling secondary to steroids. Denies nausea, vomiting, chest pain and shortness of breath. 02/16: Patient seen at bedside. Not in acute distress. Persistent complaints of numbness and weakness of the left arm. Denies nausea and vomiting and reports leg swelling from steroid has gotten significantly better. Denies chills, shortness of breath and chest pain. 02/17: Patient seen at bedside. C-collar Patient happy with procedure. Reports decreased numbness in ulnar aspect of hand. Opened bowels, voided and mobilized appropriately post procedure. Reports persistent pain but states that it is being managed on current regimen. Reports 1 episode of temperature spike overnight. Denies chills and rigors. 02/18/2025. Patient is sitting in the bed. C-collar in place. Patient is complaining of difficulty swallowing due to c-collar. Otherwise denied any aspiration or choking. Patient has been afebrile. Pain is controlled. Tmax 100.5 laboratory data showed WBC 22.4 hemoglobin 11.8 and platelets 241 sodium 134 potassium 4.2 chloride 100 bicarb is 26 BUN 10 and creatinine 0.67. Patient is on Ringer's lactate at 75 cc/h. 02/19: Patient was seen at bedside this morning. Wearing the c-collar. On room air. Indicates her swallowing is worse and painful. Requesting more morphine. Denies shortness but endorses cough productive of green sputum/ Pertinent positives and negatives discussed above, a complete review of systems was preformed and all the other systems were negative. Vitals Signs Reviewed. GENERAL: The patient is alert and oriented x3, not in any acute distress. Well developed, well nourished. C-collar on neck. HEENT: Pupils are round and equally reacting to light. No scleral icterus. No conjunctival pallor. Normocephalic, atraumatic. CARDIOVASCULAR: S1 and S2 present. No murmurs, rubs, or gallops. PULMONARY: Crackles on right side of chest. Left side CTA. ABDOMEN: Soft, nontender, nondistended. MUSCULOSKELETAL: No joint swelling or deformity. EXTREMITIES: No cyanosis, clubbing, or pedal edema. SKIN: No rashes. Labs: WBC 19.78 no left shift, sodium 134, hemoglobin 10.5, creatinine 0.68, BUN 10 Imagin/28 chest x-ray: Bilateral airspace opacity may represent pulmonary edema and/or atypical infection and cardiomegaly. Assessment and plan: #Radicular neck pain with left upper extremity numbness - Status post day 3 C5- C5 anterior cervical discectomy and fusion. #Left upper extremity radiculopathy and weakness, secondary to cervical degene rative disease Maintain incision clean and dry. May change dressing as needed. - Status post LP which is unremarkable other than elevated glucose likely secondary to IV steroids Neurology following, appreciate further recommendations. Surgery on consult, appreciate further recommendations. # Post operative subclinical fever with elevated white count and secondary tachycardia - 75cc/hr fluids Downtrending white counts Continue to monitor CBC daily Tylenol as needed. - Crackles present on R side of lung pascal Check procalcitonin before starting ABX treatment #Subclinical hypothyroidism likely secondary to steroid use. (02/10) TSH 0.277, FT4 0.45. T3 0.90 Patient asymptomatic, likely secondary to steroid use. - Recheck thyroid today #Hypokalemia -Resolved Chronic: #COPD without any acute exacerbation #Hypertension #Neuropathy #ADHD/anxiety disorder for which patient is on Ritalin - Continue nicotine use: Counseling was provided - Continue home medications DVT prophylaxis: SCDs GI prophylaxis Protonix Full code Objective - Vital Signs Vital signs: Vital Signs Temp 98.1 F 02/19/25 07:30 Pulse 113 H 02/19/25 07:30 Resp 17 02/19/25 07:30 BP 114/67 02/19/25 07:30 Pulse Ox 90 L 02/19/25 07:30 FiO2 Intake & Output 02/18/25 02/19/25 02/19/25 18:59 06:59 18:59 Output Total 15 Balance -15 Output: Drainage 15 Neck 15 Other: Voiding Method Toilet # Voids 3 # Bowel Movements 0 - Labs CBC & Chem 7: 02/20/25 08:23 02/19/25 00:06 Labs: Abnormal Lab Results - Last 24 Hours (Table) 02/19/25 02/19/25 02/19/25 Range/Units 00:06 00:06 05:59 WBC 19.78 H (4.50-10.00) 10*3/uL RBC 3.48 L (4.10-5.20) 10*6/uL Hgb 10.5 L (12.0-15.0) g/dL Hct 33.1 L (37.2-46.3) % MCHC 31.7 L (32.0-37.0) g/dL RDW 15.1 H (11.5-14.5) % Immature Gran # 0.20 H (0.00-0.04) 10*3/uL Neutrophils # 15.94 H (1.80-7.70) 10*3/uL Monocytes # 1.96 H (0.20-1.00) 10*3/uL Sodium 134 L (137-145) mmol/L Glucose 112 H (74-99) mg/dL Urine Blood Small H (Negative) Assessment and Plan Assessment: Attestation Attestation/ Top Screw Note: Attestation to Progress Note, Participation (I saw and evaluated the patient with the Resident, and I reviewed and discussed the patient with the Resident and agree with the Resident's findings and plans as documented above., management reviewed and discussed), I agree with findings & plan, Provider Signature (HOLDEN TRAN MD Time with Patient: Greater than 30
[2025-02-20 08:42] LABS: Basophils # (A) 0.01 10*3/uL (0.00-0.10); Basophils % (A) 0.1 %; Eosinophils # (A) 0.29 10*3/uL (0.04-0.35); Eosinophils % (A) 2.5 %; HCT 33.7 % (37.2-46.3); HGB 10.4 g/dL (12.0-15.0); Lymphocytes # (A) 1.31 10*3/uL (0.90-5.00); Lymphocytes % (A) 11.5 %; MCH 29.7 pg (27.0-32.0); MCHC 30.9 g/dL (32.0-37.0); MCV 96.3 fL (80.0-97.0); Monocytes # (A) 1.36 10*3/uL (0.20-1.00); Monocytes % (A) 11.9 %; Neutrophils # (A) 8.38 10*3/uL (1.80-7.70); Neutrophils % (A) 73.2 %; Platelet Count 268 10*3/uL (140-440); RBC 3.50 10*6/uL (4.10-5.20); RDW 14.9 % (11.5-14.5); WBC 11.44 10*3/uL (4.50-10.00)
[2025-02-20 08:43] VITALS: BP 147/91; PULSE 107; RESP 20; TEMP 97.9
--- NOTE | 2025-02-20 18:03 | P.DS ---
Providers Date of admission: 02/04/25 20:47 Attending physician: Jose Martinez MD Consults: 02/04/25 20:44 Consult Physician Urgent Consulting Provider: Cortez Darling Consult Reason/Comments: intractable neck pain Do you want consulting provider notified?: Yes, Notify in am 02/08/25 16:47 Consult Physician Routine Consulting Provider: Cj Clements Consult Reason/Comments: Progresssive UE L sided weakness. Do you want consulting provider notified?: Yes, Notify in am 02/10/25 10:05 anesthesia [Consult to Anesthesia] Routine Consulting Provider: Anesthesia,Services Consult Reason/Comments: Lumbar puncture 02/13/25 11:35 Consult Physician Routine Consulting Provider: Rickie Duong Consult Reason/Comments: Opinion and possible management regarding left upper Do you want consulting provider notified?: Yes 02/13/25 11:43 Consult Physician Routine Consulting Provider: Psychiatry - [facility] Psychiatry Consult Reason/Comments: Anxiety and depression, Do you want consulting provider notified?: Yes Primary care physician: Alaina Dsouza DO Hospital Course: Hospital Course: Patient is a 48-year-old female with a history of C5-6 fusion surgery came in with chief complaint of neck pain and stiffness. Pain was radiating to the left upper extremity associated with weakness. CT of the C-spine showed moderate bilateral neuroforaminal stenosis at C6-C7. Pain management gave her a cervical epidural steroid injection at C6-C7 and a trigger point injection of the cervical paraspinal muscles on February 06. Postprocedure she was still experiencing inadequate pain control. Neurology was consulted who completed a multiple sclerosis workup including a brain MRI and lumbar puncture which was all negative, pt was started on SOMA for better pain relief. Ortho surgery consulted and anterior cervical disc fusion of C4-C5was completed on February 16. After the procedure patient indicated her symptoms were improved and her pain is well-controlled with Soma and [place]. Orthopedic surgery cleared patient for discharge with c-collar in place at all times except when showering. Patient is medically stable for discharge. Final Diagnosis: # s/p ACDF # Left upper extremity radiculopathy and weakness # Cervical spondylosis with stenosis # COPD # Hypertension # Neuropathy # ADHD # Anxiety Physical examination: GENERAL: The patient is alert and oriented x3, not in any acute distress. Well developed, well nourished. C-collar on neck. HEENT: No scleral icterus. No conjunctival pallor. Normocephalic, atraumatic. CARDIOVASCULAR: S1 and S2 present. No murmurs, rubs, or gallops. PULMONARY: Scattered rhonchi on right side of chest. Left side CTA. ABDOMEN: Soft, nontender, nondistended. MUSCULOSKELETAL: No joint swelling or deformity. EXTREMITIES: No cyanosis, clubbing, or pedal edema. SKIN: No rashes. Attestation I have seen and examined this patient with my resident , discussed the same with the resident/OTF, and agree with the dictator's assessment and plan as written Dr. Doug parker Patient Condition at Discharge: Stable Plan - Discharge Summary Discharge Rx Participant: Yes New Discharge Prescriptions: New cefaDROXiL [Duricef] 500 mg PO Q12HR #10 cap Sennosides/Docusate Sodium [Senna Plus 8.6-50 mg Tablet] 2 each PO DAILY PRN #20 tab PRN Reason: Constipation amLODIPine [Norvasc] 5 mg PO DAILY #21 tab carisoprodoL [Soma] 350 mg PO TID PRN 10 Days #30 tab PRN Reason: Muscle Spasm HYDROcodone/APAP 10-325MG [[place] 10-325] 1 tab PO Q4-6H PRN #40 tab PRN Reason: Pain Continue clonazePAM [KlonoPIN] 0.5 mg PO BID Methylphenidate HCl [Ritalin] 20 mg PO TID Prazosin [Minipress] 5 mg PO HS Gabapentin 800 mg PO TID Albuterol Inhaler [Ventolin Hfa Inhaler] 2 puff INHALATION RT-Q4H PRN PRN Reason: Shortness Of Breath Mirtazapine 30 mg PO HS Discharge Medication List clonazePAM [KlonoPIN] 0.5 mg PO BID 10/23/19 [History] Methylphenidate HCl [Ritalin] 20 mg PO TID 04/07/23 [History] Prazosin [Minipress] 5 mg PO HS 04/07/23 [History] Albuterol Inhaler [Ventolin Hfa Inhaler] 2 puff INHALATION RT-Q4H PRN 09/30/23 [History] Gabapentin 800 mg PO TID 09/30/23 [History] Mirtazapine 30 mg PO HS 02/04/25 [History] HYDROcodone/APAP 10-325MG [[place] 10-325] 1 tab PO Q4-6H PRN #40 tab 02/17/25 [Rx] Sennosides/Docusate Sodium [Senna Plus 8.6-50 mg Tablet] 2 each PO DAILY PRN #20 tab 02/17/25 [Rx] cefaDROXiL [Duricef] 500 mg PO Q12HR #10 cap 02/17/25 [Rx] amLODIPine [Norvasc] 5 mg PO DAILY #21 tab 02/20/25 [Rx] carisoprodoL [Soma] 350 mg PO TID PRN 10 Days #30 tab 02/20/25 [Rx] Follow up Appointment(s)/Referral(s): Alaina Dsouza DO [Primary Care Provider] - 1-2 days [facility] [NON-STAFF] - 1 Week Rickie Duong DO [Doctor of Osteopathic Medicine] - 2 Weeks Jose Thomas MD [Medical Doctor] - 1 Week Activity/Diet/Wound Care/Special Instructions: Spine Discharge and Recovery Instructions Date of Surgery: 02/16/2025 Diagnosis: C4-C5 adjacent segment disease with stenosis Procedure: Revision C4-C6 ACDF with C5 corpectomy Medications: See medication list All medication refills should be obtained through your primary care doctor or your clinic spine surgeon. Please discuss prescription refills at your follow up appointment. Do not call the hospital for medication refills. Activity: Encourage ambulation with assist of walker, Up and about 6-8x daily PT/OT daily work on balance, strength and mobility Up in chair with all meals Shower daily Brace: Use brace when up and about, do not wear in bed or shower Dressing: Leave your dressing in place for a total of 3 days post operatively. Then you may remove your dressing and leave open to air. Keep the area clean and if not able to keep area clean, then cover with sterile gauze and tape. Showering: You may shower 3 days after your procedure allowing soap and water to run over incision. Do not scrub. Do not soak. Blot dry. Follow up: Please confirm a follow up appointment with your surgeon 2 weeks post operatively. Please make an appointment to follow up with your PCP in 1-2 weeks after surgery for evaluation '3 phase, 3-week plan' POST OP WEEKS 1-3 1. Lifting/carrying/pushing/pulling limited to less than 5 pounds. 2. Do not sit for longer than 15 minutes at one time. Get up and walk around. Prolonged sitting is NOT advised. If you lay down, see if you can tole rate laying down on you front (belly side) 3. Walk for periods of 15 minutes = 1 mile but no longer; do it multiple times times each day. 4. Ice your low back after activity. POST OP WEEKS 3-6 1. Lifting limited to less than 20 pounds. 2. Do not sit for longer than 30 minutes at a time. Frequently change positions. Use a sit-to stand workstation or take frequent breaks from sitting if you have returned to work. 3. Walk for 30 minutes each day. If possible, do these three or more times a day POST OP WEEKS 6+ At your 6-week appointment we will give you a physical therapy referral to focus on a core stabilization and strengthening program. You should also work on leg & buttock strengthening, hamstring & quadriceps stretching, and continue a low impact aerobic activity program such as swimming, walking, or riding a stationary bicycle. During the initial 6 weeks after your surgery, you are at the highest risk of re-injuring your spine. You should generally avoid BLT's (bending, lifting and twisting combination motions) and follow the above guidelines to reduce the chance of reinjury. You can anticipate post op appointments in our office at approximately 3 weeks and 6 weeks after your surgery. INCISION CARE: If your incision is not draining you do NOT need to cover it with a dressing. Keep your incision clean, dry and intact. In most cases, we apply skin glue, irina or sutures to the incision at the time of surgery. This will be like a crust or have the appearance of a scab and will fall off in time on its own. The stitches or irina need to be removed at 3 weeks post op appointment. You may begin to shower 3 days after surgery (this allows the glue to rudd well). However, please avoid scrubbing the incision site or peeling off any of the skin glue. This will ensure optimal healing of your incision. Also, during this time avoid soaking the incision area in water - this includes swimming pools, hot tubs or baths. No ointments, lotions or oils on the incision until your surgeon allows. Leave irina, sutures or glue in place. Neurological dysfunction that comes on suddenly can also be a sign of a stroke. Below some common symptoms of a stroke are listed: B - balance difficulty such as sudden onset walking or leaning to one side - NEW E - eye problem such as sudden double vision or trouble seeing on one side - NEW F - Facial weakness or numbness on one side - NEW A - Arm or leg weakness or numbness on one side - NEW S - Slurred speech or difficulty with word finding - NEW T - Time is BRAIN! Call 911 as soon as you recognize these symptoms Diet: Consume a regular diet rich in vegetables and lean protein such as chicken or fish. You should consume in a ratio of approximately 20% fats|40% carbohydrates|40%protein. Vegetables, sweet potatoes, brown rice or quinoa are examples of good carbohydrates. Chips, white bread, cookies and sweets/sugar are examples of bad carbohydrates. Limit your bad carbs, go wild with good carbs. "Life's Simple 7" Guidelines as per [place] [employer] These will help you reclaim your life after surgery and optical brightener maker helper in your recovery, keeping in mind your restrictions. (1) Get Active. Physical activity can help people lose weight, control high blood pressure and cholesterol, feel emotionally better, and sleep better. (2) Control Cholesterol. Avoid a diet high in saturated fat, trans fat, & cholesterol. Limit whole milk & cream, ice cream, butter, egg yolks, processed meats (like sausage and hot dogs), and fatty meats. Choose healthy foods that are low in saturated fat, trans fat and cholesterol which include: Fruits and vegetables, fiber rich grain products (like whole grain pasta and brown rice), lean meat such as chicken, fish, nuts, seeds, and legumes. (3) Eat Better. Eat small portions. Shop at the grocery with a list and do not stray from it. Tips for a healthy diet include: Limit sodium intake to less than 1500mg daily, avoid prepackaged, processed, and fast foods, choose a diet rich in fruits, vegetables, and whole grain, high fiber foods, and limit saturated & cholesterol in your diet. (4) Manage Blood Pressure. If you have high blood pressure, you should have a cuff at home so that you can check your blood pressure regularly. Be sure you have a good cuff. An arm one is generally better than a wrist one. Bring the cuff to a doctor's appointment to validate that the measurements that your cuff are taking are accurate. Take your blood pressure twice daily when you are sitting down and relaxing. Record the numbers in a log and bring this log with you to your doctors' appointments. (5) Lose Weight if your BMI is above 25. A healthy BMI is between 19-25. To calculate Your BMI, you may use a Standard BMI Calculator on the NIH BMI website: <www.nhlbi.nih.gov/guidelines/obesity/BMI/bmicalc.htm>. Weigh oneself daily. If you are overweight, set a goal to lose weight. A pound a week loss if needed is a good target. (6) Reduce Blood Sugar. Limit foods and liquids with "added sugars." (Added sugars include sucrose, fructose, glucose, maltose, dextrose, high fructose corn syrup, corn syrup, concentrated fruit juice and honey). (7) Stop Smoking. If you smoke, quitting smoking is one of the best things that you can do for your health. Smoking increases your risk of heart attack, stroke, and peripheral vascular disease, which is a build-up of plaque in your arteries. Please discard all the cigarettes and lighters in your house. Have a plan for what you will do when you have the urge to smoke. Direct and second- hand smoke shortens your life as well as the lives of your family, friends and others around you. For your health and the health of those around you, please consider quitting! Proper Bending Body Mechanics: Maintain a wide stance with one foot slightly in front of the other. Keep your back straight. Bend utilizing the strength in your hips and knees. Do not bend at the waist. Maintain the lifted object at your waist-level close to your body. Avoid lifting weight that causes immediately pain or pain anywhere in the body afterwards. Smoking/Nicotine If there was ever one thing that you could do to increase your overall health, decrease your risk of cardiovascular problems by about 39% the second you make the choice, it is to STOP SMOKING. Your body's most instant gratification is the second you stop smoking. We have all heard the studies, read the articles but it is true, smoking is extremely bad for your overall health, and moreover it is detrimental to your bone health. Nicotine, IN ANY FORM, kills bone cells, prevents your body from healing fractures, and significantly prolongs healing after surgery. In spine surgery specifically, it increases your risk of not healing your bones to create a fusion and increases your risk of having a revision surgery due to this up to 60%. I know it is hard. I know it feels impossible. But there are ways. Take control of your life. We are here to help you through it. And when you are ready, ask us and we can direct you to help if you desire. Use the START Plan to Quit Smoking (please visit the Helpguide.org website listed below for more information): S = Set a quit date. Choose a date within the next 2 weeks, so you have enough time to prepare without losing your motivation to quit. If you mainly smoke at work, quit on the weekend, so you have a few days to adjust to the change. T = Tell family, friends, and co-workers that you plan to quit. Let your friends and family in on your plan to quit smoking and tell them you need their support and encouragement to stop. Look for a quit candice who wants to stop smoking as well. You can help each other get through the rough times. A = Anticipate and plan for the challenges you'll face while quitting. Most people who begin smoking again do so within the first 3 months. You can help yourself make it through by preparing ahead for common challenges, such as nicotine withdrawal and cigarette cravings. R = Remove cigarettes and other tobacco products from your home, car, and work. Throw away all your cigarettes (no emergency pack!), lighters, ashtrays, and matches. Wash your clothes and freshen up anything that smells like smoke. Shampoo your car, clean your drapes and carpet, and steam your furniture. T = Talk to your doctor about getting help to quit. Your doctor can prescribe medication to help with withdrawal and suggest other alternatives. If you can't see a doctor, you can get many products over the counter at your local pharmacy or grocery store, including the nicotine patch, nicotine lozenges, and nicotine gum. Resources for Quitting Smoking: <https://www.[place].gov/docu ments/[facility]/Quit_Tobacco_Resources_for_patients_313480_7.pdf> Supplementation: Take recommended dosages of Vitamin D and Calcium to help fortify your bones and help them to heal. See your health maintenance packet for dosages and recommended levels. DVT/VTE prophylaxis: You will be given compression stockings from the hospital. Wear these daily for the first two weeks after surgery. You may take them off at night. You may be prescribed a medication to help thin your blood. Take this as directed. If you are not prescribed this medication, early and frequent ambulation has been shown to be the best prophylaxis to deep vein thrombosis and sequelae related to this event. Discharge/Stand Alone Forms: Anes Pain/[facility] Instructions Discharge Disposition: HOME WITH HOME HEALTH SERVICES
--- NOTE | 2025-02-21 20:10 | P.OP ---
Date of Procedure: 02/16/25 Preoperative Diagnosis: 1. C4-5 HNP, LARGE WITH STENOSIS AND MYELOPATHY 2. C4-5 SPONDYLOSIS WITH STENOSIS 3. UE RADICULOPATHY 4. UNSTEADY GAIT. Postoperative Diagnosis: 1. C4-5 HNP, LARGE WITH STENOSIS AND MYELOPATHY 2. C4-5 SPONDYLOSIS WITH STENOSIS 3. UE RADICULOPATHY 4. UNSTEADY GAIT. Procedure(s) Performed: 1. C4-5 ANTERIOR CERVICAL ARTHRODESIS 2. C4-5 ANTERIOR CERVICAL INSTRUMENTATION 3. C4-5 INSERTION OF BIOMECHANICAL DEVICE, CAGE x1 USE OF IONM USE OF IO MICROSCOPE Implants: -PRETTY CASCADIA CAGE X1 -PRETTY OZARK PLATE/SCREWS -MAGNATOS -AUTOGRAFT Anesthesia: MILAGROA Surgeon: Rickie Duong Hand Finisher #1: Adia Waddell Estimated Blood Loss (ml): 75 IV fluids (ml): 25 Urine output (ml): 0 Pathology: none sent Condition: stable Disposition: PACU Indications for Procedure: Isabell Winston is a 55-year-old female presenting for evaluation of neck pain upper extremity pain difficulty with ambulation. It was my pleasure to have seen and examined Isabell. In our visit today we have had a chance to go over subjective complaints, physical examination findings and treatments including the natural course history without intervention and various interventional options. 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 On physical exam, Isabell demonstrates bilateral upper extremity weakness difficulty with ambulation neck pain. I have explained to the patient that as their condition progresses it will cause further neurological deficits and eventual paralysis. Based on the patients imaging, physical exam, and the rapid progression and disabling nature of their symptoms, at this time I recommend surgery in the form or a: C4-5 revision ACDF. I discussed the risk and benefits of this procedure at length with Isabell. The patient agreed to considered pursuing the procedure abovementioned. Prior to surgery, she should follow up with her PCP (Cardio, ID, IM etc) for clearance. Questions were invited and answered, and the patient wishes to proceed as outlined below. Currently, I am recommendin. C4-5 anterior cervical discectomy and fusion Description of Procedure: C4-5 ACDF (PLATE/CAGE) The patient was seen and examined in the preoperative area. All preoperative protocols were followed. Informed consent was obtained, risks and benefits of the procedure were discussed at length. Risks including bleeding infection damage to the surrounding tissue and risk of reoperation were discussed with the patient. Risk of anesthesia up to and including was discussed with the patient. These are outlined in the risk review. They were willing to accept these risks and all the risks of surgery. The patient was given a weight-based dose of antibiotics in the form of 2 g Ancef. The patient was seen and evaluated by the anesthesia team who deemed them fit for surgery. The site was marked, the patient was willing to proceed with the procedure. The patient was transferred to the operative suite by the Department of anesthesia. They were then drifted off to sleep by the department anesthesia and GETA was performed. The patient tolerated this well. Dickens catheter was placed by nursing staff, a-traumatically. Once confirmation of lines and ventilation the patient was transferred to a Supine Evangelista table very carefully. All bony prominences including wrists, elbows, axilla, chest, hips, and thighs, and feet were padded very well. Special attention was paid to the genitalia, and these were padded accordingly. SCDs were placed on bilateral lower extremities and were connected. Arms were well padded and placed at their side thumbs up. Once in position, again we confirmed good ventilation cap abilities and that lines were running appropriately. The patients Cervical spine was then exposed. 1010s were placed outlining the incision site. Standard alcohol was used to clean the incision site and allowed to dry. C-arm was used to bio-valerie the patient and confirm level for incision which was marked with a skin marker. Operative briefing was performed with all teams and everyone in agreement to proceed. The patient was then prepped and draped in a normal sterile fashion. Timeout was then performed, and all parties agreed with the procedure to be performed. Transverse skin incision was then made on the right side of the patient's neck 3 cm and dissection taken down to the platysma which was split transversely. Sub platysma flap was made, and interval identified between SCM and medial structures. Omohyoid was visualized and protected. Blunt dissection taken down to the anterior cervical fascia which was identified. Blunt probe was then placed and lateral image taken which confirmed levels for operation. These levels were then marked with a bovi. Subperiosteal dissection of the longissimus muscles were then done over these levels identifying uncovertebral joints bilaterally. Retractor was then placed deep to these muscles and held in place with a bed arm. Herman pins were placed into C5 and C4 and gentle distraction taken out over the levels. Tim rongeur used to remove disc material. Operating microscope brought in for visualization. Complete discectomy performed at this level with curette, rongure and pituitary. High speed gwen used to remove osteophytes anteriorly and posteriorly until PLL was identified. 6-0 up curette then used to identify the canal and resect the PLL. 2-0 and 3-0 Kerrison used then to remove PLL and disc herniation and performed b/l foraminotomies. Once good decompression was accomplished, meticulous hemostasis was performed. Sizers were then placed under lateral fluoroscopy until the desired height and lordosis. Cage was then selected, packed with autograft and allograft and placed under lateral imaging. Once in good position it was tested and stable. Motors run before and after cage placement were stable. The wound was irrigated, and autograft placed lateral to the cage anteriorly for fusion. Herman pin was then removed from C5 and C4 and bone wax placed in their void. A separate, non-integrated plate was then selected and sized under lateral image. The plate was then placed with screws. Fixed screws drilled into C4 b/l and screws placed. Then screw placed into C5. Good purchase of all screws obtained and the locking mechanism was set. Final AP and lateral images taken confirmed good placement of hardware and good reduction and jainism of height. The wound was then irrigated copiously with NSS. Surgicel placed deep in the wound. Layered closure then performed with 3-0 Vicryl in the platysma and subQ tissue. 4-0 Strata fix in the subcuticular tissue. The wound was then cleaned, and dried and skin glue placed. Once glue dried telfa, 4x4, drain sponge and tegaderms were placed. The patient was then transferred back to their hospital bed a-traumatically. The drain continued to hold suction. They were placed in a soft collar. They were then awakened by the department of anesthesia having tolerated the procedure well without complications.
== END 2025-02-20 14:50 | disposition home health service (06) | DRG 472 ==
LOC: EC 15:31 → 6NMEDSUR 20:46 → OBSVTOIN 20:47 → 6NMEDSUR 21:25 → 4SSUR 02-15 19:08
PROVIDERS: ADMIT Internal Medicine; ATTEND Internal Medicine
PROC: 3E0R33Z Introduction of Anti-inflammatory into Spinal Canal, Percutaneous Approach (ICD-10-PCS; principal; 2025-02-06 11:30)
PROC: 3E023BZ Introduction of Anesthetic Agent into Muscle, Percutaneous Approach (ICD-10-PCS; principal; 2025-02-06 11:30)
PROC: 009U3ZX Drainage of Spinal Canal, Percutaneous Approach, Diagnostic (ICD-10-PCS; 2025-02-10)
PROC: 0RT30ZZ Resection of Cervical Vertebral Disc, Open Approach (ICD-10-PCS; 2025-02-16)
PROC: 01N10ZZ Release Cervical Nerve, Open Approach (ICD-10-PCS; 2025-02-16)
PROC: 0RG10A0 Fusion of Cervical Vertebral Joint with Interbody Fusion Device, Anterior Approach, Anterior Column, Open Approach (ICD-10-PCS; 2025-02-16)
PROC: 4A11X4G Monitoring of Peripheral Nervous Electrical Activity, Intraoperative, External Approach (ICD-10-PCS; 2025-02-16)
DX: M47.22 Other spondylosis with radiculopathy, cervical region (principal); G95.89 Other specified diseases of spinal cord; F11.11 Opioid abuse, in remission; J44.9 Chronic obstructive pulmonary disease, unspecified; E03.8 Other specified hypothyroidism; F32.A Depression, unspecified; I10 Essential (primary) hypertension; M50.021 Cervical disc disorder at C4-C5 level with myelopathy; M25.78 Osteophyte, vertebrae; M48.02 Spinal stenosis, cervical region; M50.121 Cervical disc disorder at C4-C5 level with radiculopathy; R50.82 Postprocedural fever; R73.9 Hyperglycemia, unspecified; T38.0X5A Adverse effect of glucocorticoids and synthetic analogues, initial encounter; D72.829 Elevated white blood cell count, unspecified; E87.6 Hypokalemia; F17.200 Nicotine dependence, unspecified, uncomplicated; F43.10 Post-traumatic stress disorder, unspecified; F90.9 Attention-deficit hyperactivity disorder, unspecified type; G24.3 Spasmodic torticollis; G62.9 Polyneuropathy, unspecified; I25.2 Old myocardial infarction; Z56.0 Unemployment, unspecified; Z79.899 Other long term (current) drug therapy; Z98.1 Arthrodesis status; Z82.49 Family history of ischemic heart disease and other diseases of the circulatory system; Z82.3 Family history of stroke; Z82.0 Family history of epilepsy and other diseases of the nervous system
CPT/HCPCS: 20553; 36415; 62270; 62321; 70553; 71045; 71046; 72040; 72125; 72156; 80048; 80053; 81001; 82040; 82042; 82550; 82607; 82784; 82945; 83036; 83090; 83735; 83873; 83916; 83921; 84145; 84146; 84157; 84439; 84443; 84481; 84484; 85025; 85027; 85652; 86038; 86431; 86850; 86900; 86901; 87040; 87070; 87205; 87496; 87498; 87529; 87798; 89050; 93005; 94760; 96372; 96374; 96375; 99285